=== PATIENT | female | born 1945 | race Hispanic/Latino ===

== ENCOUNTER 2017-01-15 10:44 | Emergency (ER) | payer MEDICARE ==
[2017-01-15 10:44] VITALS: BMI 16.5
[2017-01-15 10:53] VITALS: RESP 18; O2SAT 99
[2017-01-15 12:11] LABS: BASO # 0.1 K/uL (0.0-0.2); BASO % 1.3 % (0.0-2.0); EOS # 0.3 K/uL (0.0-0.7); EOS % 2.9 % (0.0-4.0); HEMATOCRIT 38.9 % (34.0-47.0); LYMPH # 1.2 K/uL (1.0-4.3); LYMPH % 12.5 % (20.0-40.0); MEAN CELL VOLUME 82.4 fL (81.0-99.0); MEAN CORPUSCULAR HEMOGLOBIN 26.8 pg (27.0-31.0); MEAN CORPUSCULAR HGB CONC 32.6 g/dL (33.0-37.0); MEAN PLATELET VOLUME 9.4 fL (7.2-11.7); MONO # 0.5 K/uL (0.0-0.8); MONO % 4.9 % (0.0-10.0); NRBC % 0.1 % (0.0-2.0); RED CELL DISTRIBUTION WIDTH 15.1 % (11.5-14.5); WHITE BLOOD COUNT 9.5 K/uL (4.8-10.8)
--- NOTE | 2017-01-15 12:22 | C.PDOC ---
History Of Present Illness 71 y/o female brought to the ED by ambulance for evaluation of epigastric abdominal pain, nausea and vomiting which began yesterday. Patient states she was residing in a care home for approx 1 week, but at the beginning of this week, patient signed herself out of the care home, stating they were " placing sleeping pills in her food." Patient also states that she overheard the nursing staff saying that she has a UTI. She states she has noticed "green urine", but denies dysuria/hematuria, chest pain, SOB, fever/chills, flank pain. Time Seen by Provider: 01/15/17 11:03 Chief Complaint (Nursing): Female Genitourinary History Per: Patient, EMS History/Exam Limitations: other Onset/Duration Of Symptoms: Hrs Current Symptoms Are (Timing): Still Present Location Of Pain/Discomfort: Epigastric Radiation Of Pain To:: None Quality Of Discomfort: "Pain" Associated Symptoms: Nausea, Vomiting. denies: Fever, Chills, Urinary Symptoms (dysuria/hematuria ) Exacerbating Factors: None Alleviating Factors: None Additional History Per: Patient, EMS Past Medical History Reviewed: Historical Data, Nursing Documentation, Vital Signs Vital Signs: Last Vital Signs Temp 98.1 F 01/15/17 13:10 Pulse 60 01/15/17 13:10 Resp 18 01/15/17 13:10 BP 199/68 H 01/15/17 13:10 Pulse Ox 99 01/15/17 13:42 - Medical History PMH: Anxiety, Arthritis, Back Problems, Bronchitis, CAD, CHF, COPD, CVA, Dementia, Deep Vein Thrombosis, Emphysema, Fractures (Right Hip), HTN, Hypercholesterolemia, Hyperlipidemia, Malignancy (Breast CA left 4 yrs ago, patient in remission, last chemo was 3 years ago), Osteoporosis, Peripheral Edema, TIA Surgical History: Coronary Stent - [facility] Procedures ANGIOPLASTY OF OTHER NON-CORONARY VESSEL(S) (07/26/12) CONTR CEREBR ARTERIOGRAM (06/25/15) CONTRAST AORTOGRAM (07/26/12) DILATION OF 2 COR ART WITH DRUG-ELUT INTRALUM, PERC APPROACH (10/27/15) DX ULTRASOUND-HEART (04/04/15) EXCISION OF TOE NAIL, EXTERNAL APPROACH (09/17/16) EXERCISE TREATMENT OF MUSCULOSK WHOLE USING ASSIST EQUIPMENT (09/17/16) FLUOROSCOPY OF LEFT HEART USING LOW OSMOLAR CONTRAST (07/06/16) FLUOROSCOPY OF MULT COR ART USING L OSM CONTRAST (07/06/16) GAIT TRAINING/AMBULAT TREATMENT USING ASSIST EQUIPMENT (09/17/16) GROOMING/PERSONAL HYGIENE TREATMENT USING ASSIST EQUIPMENT (09/17/16) INSEJ OF DRUG-ELUTING STENT(S) OF OTH PERIPHERAL VESSEL(S) (07/26/12) INSERTION OF TWO VASCULAR STENTS (07/26/12) INSPECTION OF UPPER INTESTINAL TRACT, ENDO (10/31/16) MEASURE OF CARDIAC SAMPL & PRESSURE, L HEART, PERC APPROACH (07/06/16) PACKED CELL TRANSFUSION (11/06/13) PARTIAL HIP REPLACEMENT (11/06/13) PLAIN RADIOGRAPHY OF LEFT HEART USING LOW OSMOLAR CONTRAST (10/27/15) PLAIN RADIOGRAPHY OF MULT COR ART USING L OSM CONTRAST (10/27/15) PROCEDURE ON FOUR OR MORE VESSELS (07/26/12) REMOVAL OF VAD FROM UP EXTREM SUBCU/FASCIA, PHOTOVOLTAIC PANEL INSTALLER APPROACH (07/06/15) Family History: States: No Known Family Hx - Social History Hx Tobacco Use: Yes (quit 1 wk ago) Hx Alcohol Use: No Hx Substance Use: No - Immunization History Hx Tetanus Toxoid Vaccination: No Hx Influenza Vaccination: No Hx Pneumococcal Vaccination: No Review Of Systems Except As Marked, All Systems Reviewed And Found Negative. Constitutional: Negative for: Fever, Chills Cardiovascular: Negative for: Chest Pain, Palpitations Respiratory: Negative for: Cough, Shortness of Breath Gastrointestinal: Positive for: Nausea, Vomiting, Abdominal Pain (epigastric). Negative for: Diarrhea Genitourinary: Positive for: Other (+green-colored urine). Negative for: Dysuria, Hematuria, Vaginal Discharge, Vaginal Bleeding Skin: Negative for: Rash Physical Exam - Physical Exam Appears: Well, Non-toxic, No Acute Distress Skin: Normal Color, Warm, Dry Head: Normacephalic Eye(s): bilateral: Normal Inspection Oral Mucosa: Moist Neck: Normal, Normal ROM, Supple Cardiovascular: Rhythm Regular Respiratory: Normal Breath Sounds, No Rales, No Rhonchi, No Wheezing Gastrointestinal/Abdominal: Normal Exam, Bowel Sounds, Soft, No Tenderness, No Guarding, No Rebound Back: Normal Inspection, No CVA Tenderness, No Vertebral Tenderness, No Paraspinal Tenderness Extremity: Normal ROM, No Pedal Edema, No Calf Tenderness Neurological/Psych: Oriented x3, Other (+bizarre affect ) Gait: Steady ED Course And Treatment - Laboratory Results Result Diagrams: 01/15/17 12:08 01/15/17 12:08 O2 Sat by Pulse Oximetry: 99 (on RA) Pulse Ox Interpretation: Normal Progress Note: Blood work, UA ordered and reviewed. Patient given IV zofran and PO Clonidine. 13:25- Patient reassessed, is resting comfortably and states she feels better. Blood work and UA unremarkable. On exam, abdomen is soft and nontender. Patient is comfortable being discharged home. She was given Rxs for zofran ODT and Tramadol (at her request), and was instructed to follow up with PMD in 1-2 days. She understands she should return to ED if symptroms worsen. Reevaluation Time: 13:10 Reassessment Condition: Improved (On reassessment, patient states her pain has resolved but she is still having some nausea. IV reglan ordered.) Disposition Counseled Patient/Family Regarding: Studies Performed, Diagnosis, Need For Followup, Rx Given - Disposition Referrals: John Brown DO [Staff Provider] - Disposition: HOME/ ROUTINE Disposition Time: 13:20 Condition: STABLE Additional Instructions: FOLLOW UP WITH DR BROWN IN 1-2 DAYS USE NAUSEA MEDICATION NEEDED RETURN TO ER IF SYMPTOMS WORSEN Prescriptions: traMADol [Ultram] 50 mg PO BID PRN #12 tab PRN Reason: pain Ondansetron [Zofran Odt] 4 mg PO Q8 PRN #10 odt PRN Reason: Nausea/Vomiting Instructions: Acute Nausea and Vomiting (ED) Print Language: GUAMANIAN - POA Present On Arrival: None - Clinical Impression Clinical Impression: Nausea, Vomiting - Scribe Statement The provider has reviewed the documentation as recorded by the Scribe (Dorene Medel) Provider Attestation: All medical record entries made by the Scribe were at my direction and personally dictated by me. I have reviewed the chart and agree that the record accurately reflects my personal performance of the history, physical exam, medical decision making, and the department course for this patient. I have also personally directed, reviewed, and agree with the discharge instructions and disposition.
[2017-01-15 12:26] LABS: POTASSIUM 4.8 mmol/L (3.6-5.2)
[2017-01-15 12:29] LABS: ALB/GLOB RATIO 1.4 (1.0-2.1); BILIRUBIN,TOTAL 0.5 mg/dL (0.2-1.3); TOTAL PROTEIN 6.3 g/dL (6.3-8.3)
[2017-01-15 12:37] LABS: RBC URINE < 1 /hpf (0-3); URINE BACTERIA RARE (<OCC); URINE BILIRUBIN NEGATIVE (NEGATIVE); URINE BLOOD NEGATIVE (NEGATIVE); URINE COLOR Yellow (YELLOW); URINE GLUCOSE (UA) NORMAL (Normal); URINE KETONE TRACE mg/dL (NEGATIVE); URINE LEUKOCYTE ESTERASE NEG Leu/uL (Negative); URINE PROTEIN 2+ mg/dL (NEGATIVE); URINE UROBILINOGEN NORMAL mg/dL (0.2-1.0); WBC URINE 1 /hpf (0-5)
[2017-01-15 13:10] VITALS: BP 199/68; PULSE 60; TEMP 98.1
== END 2017-01-15 13:45 | disposition home or self-care (01) ==
LOC: C.ER 10:44
DX: R11.2 Nausea with vomiting, unspecified (principal); I10 Essential (primary) hypertension

== ENCOUNTER 2017-01-27 19:00 | Observation (INO) | payer MEDICARE ==
[2017-01-27 19:01] VITALS: BMI 16.5
--- NOTE | 2017-01-27 19:54 | C.PDOC ---
History Of Present Illness Patient presents to the ER with a complaint of a dull, aching, pressure chest pain, shortness of breath, and high blood pressure. Patient state she ran out of HTN medications 3-4 days ago. Patient denies fever, nausea, and vomiting. Time Seen by Provider: 01/27/17 19:53 Chief Complaint (Nursing): Chest Pain History Per: Patient History/Exam Limitations: no limitations Onset/Duration Of Symptoms: Hrs Current Symptoms Are (Timing): Still Present Context: Other Severity: Moderate Pain Scale Rating Of: 4 Quality: Dull, Aching, Pressure Associated Symptoms: denies: Nausea Modifying Factors: None Exacerbating Factors: None Alleviating Factors: None Recent travel outside of the [place]: No Additional History Per: Patient Past Medical History Reviewed: Historical Data, Nursing Documentation, Vital Signs Vital Signs: Last Vital Signs Temp 98.6 F 01/27/17 19:14 Pulse 71 01/27/17 21:21 Resp 20 01/27/17 21:21 BP 244/98 H 01/27/17 21:21 Pulse Ox 100 01/27/17 21:21 - Medical History PMH: Anxiety, Arthritis, Back Problems, Bronchitis, CAD, CHF, COPD, CVA, Dementia, Deep Vein Thrombosis, Emphysema, Fractures (Right Hip), HTN, Hypercholesterolemia, Hyperlipidemia, Malignancy (Breast CA left 4 yrs ago, patient in remission, last chemo was 3 years ago), Osteoporosis, Peripheral Edema, TIA Surgical History: Coronary Stent - [facility] Procedures ANGIOPLASTY OF OTHER NON-CORONARY VESSEL(S) (07/26/12) CONTR CEREBR ARTERIOGRAM (06/25/15) CONTRAST AORTOGRAM (07/26/12) DILATION OF 2 COR ART WITH DRUG-ELUT INTRALUM, PERC APPROACH (10/27/15) DX ULTRASOUND-HEART (04/04/15) EXCISION OF TOE NAIL, EXTERNAL APPROACH (09/17/16) EXERCISE TREATMENT OF MUSCULOSK WHOLE USING ASSIST EQUIPMENT (09/17/16) FLUOROSCOPY OF LEFT HEART USING LOW OSMOLAR CONTRAST (07/06/16) FLUOROSCOPY OF MULT COR ART USING L OSM CONTRAST (07/06/16) GAIT TRAINING/AMBULAT TREATMENT USING ASSIST EQUIPMENT (09/17/16) GROOMING/PERSONAL HYGIENE TREATMENT USING ASSIST EQUIPMENT (09/17/16) INSEJ OF DRUG-ELUTING STENT(S) OF OTH PERIPHERAL VESSEL(S) (07/26/12) INSERTION OF TWO VASCULAR STENTS (07/26/12) INSPECTION OF UPPER INTESTINAL TRACT, ENDO (10/31/16) MEASURE OF CARDIAC SAMPL & PRESSURE, L HEART, PERC APPROACH (07/06/16) PACKED CELL TRANSFUSION (11/06/13) PARTIAL HIP REPLACEMENT (11/06/13) PLAIN RADIOGRAPHY OF LEFT HEART USING LOW OSMOLAR CONTRAST (10/27/15) PLAIN RADIOGRAPHY OF MULT COR ART USING L OSM CONTRAST (10/27/15) PROCEDURE ON FOUR OR MORE VESSELS (07/26/12) REMOVAL OF VAD FROM UP EXTREM SUBCU/FASCIA, ESL TUTOR APPROACH (07/06/15) Family History: States: Unknown Family Hx - Social History Hx Tobacco Use: Yes (quit 1 wk ago) Hx Alcohol Use: No Hx Substance Use: No - Immunization History Hx Tetanus Toxoid Vaccination: No Hx Influenza Vaccination: No Hx Pneumococcal Vaccination: No Review Of Systems Constitutional: Negative for: Fever, Chills ENT: Negative for: Throat Pain Cardiovascular: Positive for: Chest Pain (Dull, aching, pressure) Respiratory: Positive for: Shortness of Breath Gastrointestinal: Negative for: Nausea, Vomiting Genitourinary: Negative for: Dysuria Musculoskeletal: Negative for: Back Pain Skin: Negative for: Rash, Lesions, Jaundice Neurological: Negative for: Weakness Psych: Positive for: Anxiety Physical Exam - Physical Exam Appears: Non-toxic Skin: Warm, Dry Head: Atraumatic Eye(s): bilateral: Normal Inspection Oral Mucosa: Moist Neck: Supple Chest: Symmetrical, No Tenderness Cardiovascular: Rhythm Regular, No Murmur Respiratory: No Rales, No Rhonchi, No Wheezing Gastrointestinal/Abdominal: Soft, No Tenderness Back: Normal Inspection Extremity: Normal ROM Extremity: Bilateral: Atraumatic Neurological/Psych: Oriented x3, Normal Speech, Normal Cognition, Other (Mild right sided weakness unchanged from previous CVA. Awake, alert, and oriented.) Gait: With Assistance ED Course And Treatment - Laboratory Results Result Diagrams: 01/27/17 20:12 01/27/17 20:12 ECG: Interpreted By Me, Viewed By Me ECG Rhythm: Sinus Rhythm (73), Nonspecific Changes O2 Sat by Pulse Oximetry: 93 Pulse Ox Interpretation: Normal Progress Note: EKG, blood work and urinalysis ordered. Ecotrin PO and trandate IV administered. Disposition Discussed With Dr.: John Brown Comment: accepted the pt on his service and took over the care at 9:39PM Doctor Will See Patient In The: Hospital Counseled Patient/Family Regarding: Studies Performed, Diagnosis - Disposition Disposition: HOSPITALIZED Disposition Time: 19:53 Condition: FAIR - POA Present On Arrival: Poor Glycemic Control - Clinical Impression Clinical Impression: Hypertension, Chest pain - Scribe Statement The provider has reviewed the documentation as recorded by the Scribe Von Simms All medical record entries made by the Saraibe were at my direction and personally dictated by me. I have reviewed the chart and agree that the record accurately reflects my personal performance of the history, physical exam, medical decision making, and the department course for this patient. I have also personally directed, reviewed, and agree with the discharge instructions and disposition. Decision To Admit - Pt Status Changed To: Hospital Disposition Of: Observation - . Bed Request Type: Telemetry Admitting Physician: John Brown Patient Diagnosis: Hypertension, Chest pain
[2017-01-27] MEDS ORDERED: Labetalol 5 mg/ml Inj 20ML IV STA (20:03)
[2017-01-27] MEDS ORDERED: Aspirin 325 mg EC Tablets PO STA (20:03)
[2017-01-27 20:19] LABS: BASO # 0.1 K/uL (0.0-0.2); BASO % 0.8 % (0.0-2.0); EOS # 0.2 K/uL (0.0-0.7); EOS % 1.9 % (0.0-4.0); HEMATOCRIT 40.8 % (34.0-47.0); LYMPH # 1.6 K/uL (1.0-4.3); LYMPH % 14.3 % (20.0-40.0); MEAN CELL VOLUME 80.7 fL (81.0-99.0); MEAN CORPUSCULAR HEMOGLOBIN 25.8 pg (27.0-31.0); MEAN CORPUSCULAR HGB CONC 31.9 g/dL (33.0-37.0); MEAN PLATELET VOLUME 9.6 fL (7.2-11.7); MONO # 0.7 K/uL (0.0-0.8); RED CELL DISTRIBUTION WIDTH 15.1 % (11.5-14.5); WHITE BLOOD COUNT 11.5 K/uL (4.8-10.8)
[2017-01-27 20:49] LABS: RBC URINE < 1 /hpf (0-3); URINE BACTERIA RARE (<OCC); URINE BILIRUBIN NEGATIVE (NEGATIVE); URINE BLOOD NEGATIVE (NEGATIVE); URINE COLOR Yellow (YELLOW); URINE GLUCOSE (UA) NORMAL (Normal); URINE KETONE NEGATIVE (NEGATIVE); URINE LEUKOCYTE ESTERASE NEG Leu/uL (Negative); URINE PROTEIN 2+ mg/dL (NEGATIVE); URINE UROBILINOGEN NORMAL mg/dL (0.2-1.0); WBC URINE 3 /hpf (0-5)
[2017-01-27 21:07] LABS: CHLORIDE 104 mmol/L (98-107); SODIUM 143 mmol/L (132-148)
[2017-01-27 21:08] LABS: POTASSIUM 4.4 mmol/L (3.6-5.2)
[2017-01-27 21:10] LABS: ALB/GLOB RATIO 1.4 (1.0-2.1); ALKALINE PHOSPHATASE 73 U/L (38-126); AST/SGOT 14 U/L (14-36); BILIRUBIN,TOTAL 0.8 mg/dL (0.2-1.3); BLOOD UREA NITROGEN 20 mg/dL (7-17); CARBON DIOXIDE 21 mmol/L (22-30); GFR AFRICAN-AMERICAN 53; GLUCOSE,RANDOM 125 mg/dL (65-105); TOTAL PROTEIN 6.8 g/dL (6.3-8.3)
[2017-01-27 21:11] LABS: CALCIUM 9.4 mg/dl (8.6-10.4)
[2017-01-27 21:12] LABS: ALT/SGPT < 6 U/L (9-52)
[2017-01-27] MEDS ORDERED: Sodium Chloride 0.45% 1,000 ML IV SCH (21:45)
--- NOTE | 2017-01-27 23:17 | RAD ---
HISTORY: chest pain COMPARISON: Chest x-ray performed 09/14/16 TECHNIQUE: Chest, one view. FINDINGS: The image was obtained with the patient in oblique position. LUNGS: Left lower lobe consolidation and small pleural effusion. No definite pneumothorax. Please note that chest x-ray has limited sensitivity for the detection of pulmonary masses. CARDIOVASCULAR: Cardiomegaly. Atherosclerotic calcifications of an ectatic aorta. OSSEOUS STRUCTURES: Degenerative changes. VISUALIZED UPPER ABDOMEN: Unremarkable. OTHER FINDINGS: None. IMPRESSION: Left lower lobe consolidation and small pleural effusion. Cardiomegaly. Study has been marked for PA review.
[2017-01-28 03:17] VITALS: TEMP 98.2
[2017-01-28 04:03] VITALS: O2SAT 98
[2017-01-28] MEDS ORDERED: Amoxicillin-Clav 500-125 mg Tab PO SCH (07:45)
[2017-01-28 08:11] VITALS: BP 114/41; RESP 19
[2017-01-28 08:14] VITALS: PULSE 65
--- NOTE | 2017-01-28 12:11 | DS ---
She came in last night with chest pain which is now relieved. She is back on her medications. I alfredo l write prescriptions for her. Her EKG and her troponins were normal. She is going to go home today . I will follow up on a house call next week. I will put her on some Augmentin. She is breathing w ell. I asked her to quit smoking. Doing much better. Was here for chest pain and observation. She will be discharged. John Brown DO cc: [id number] TT: 01/28/2017 12:10:29 sn
[2017-01-28] MEDS ORDERED: Rosuvastatin Calcium 2.5 mg Tab PO SCH (22:00)
--- NOTE | 2017-01-30 07:25 | HP ---
SUBJECTIVE: I know the patient very well for multiple hospital visits and house calls. She came in yesterday being a 71-year-old female with shortness of breath and chest pain. She ran out of her blood pressure medication. She does this all the time, I give her refills, she does not get them filled and she comes in to the Emergency Room. So far the troponins have been negative. EKG is fine. She has no chest pain at this time. PAST MEDICAL HISTORY: Multiple episodes of chest pain, anxiety, arthritis, back pain, bronchitis, coronary artery disease, CHF, COPD, CVA, dementia, deep vein thrombosis, emphysema, fractured right hip, hypertension, high cholesterol , hyperlipidemia, malignancy of the breast, left side 4 years ago, she is in remission. Last chemo was 3 years ago. She has osteoporosis, peripheral edema , TIA. PAST SURGICAL HISTORY: She has had numerous procedures: Angioplasty, arteriograms, aortogram, dilatation of coronary artery, excision of a toenail, fluoroscopies, drug-eluting stents were placed, vascular stents. She had endoscopies, transfused in the past, partial hip replacement, left heart radiography 4 or more vessels, removal of a VAD. SOCIAL HISTORY: She still smokes. She is down to 3-4 cigarettes a day. No alcohol, no drugs. FAMILY HISTORY: There is hypertension in the family. MEDICATIONS: She is noncompliant with her medications. REVIEW OF SYSTEMS: No acute vision changes or hearing changes, no sore throat, no neck pain. There is chest pain and pressure, but none now. There is shortness of breath and cough, but none now. No abdominal pain, no constipation or diarrhea. No extremity issues. She is comfortable. She is feeling much better after the night. Skin is okay. Not weak. Not anxious at this time, either. PHYSICAL EXAMINATION: VITAL SIGNS: She has 98.2 temp, 58 pulse, blood pressure, 98% O2 sat on 2 liters. HEENT: Head is atraumatic, normocephalic. Looks much better since she cut down on the cigarettes. She does not smoke 2 packs a day. Extraocular muscles are intact. Throat is moist, no erythema. NECK: Supple, no JVD. HEART: Regular rate. LUNGS: Decreased breath sounds bilaterally. No rales, rhonchi or wheezing, and that is her baseline. ABDOMEN: Soft, nontender, positive bowel sounds. No guarding, no rebound, no CVA tenderness. EXTREMITIES: Have no edema. NEUROLOGIC: Alert and oriented x 3, calm, comfortable, no complaints at this time, alert and aware, and wants to go home. LABORATORY DATA: She had blood tests. She has a urine that is clear. White count 11.5, hemoglobin 13, hematocrit 40.8, platelets are 317, with 143 sodium, potassium 4.4, BUN 20, creatinine 1.2, GFR is 44. Sugar is 125, calcium 9.4, total bili is 0.8, AST is 14, alkaline phosphatase 73, troponin 0.01, 0.02. Total protein 6.8, albumin is 4. She had a chest x-ray that shows something, it always shows something due to her smoking history. This shows left lower lobe consolidation with cardiomegaly. ASSESSMENT AND PLAN: Presently she is much improved than when she came in. She feels like she wants to go home. I will place her on her medications which she ran out of. She will be on Catapres 0.2 three times a day, Plavix 75 daily , Ultram 50 t.i.d., aspirin, simvastatin, hydrochlorothiazide, and I am going to add Augmentin for 7 days. I will see her on a house call this week. To be discharged today. I called in cardiology last night, they did not show up yet. Maybe they will see her this morning, before she goes. She is here for chest pain, atypical, relieved with rest and blood pressure medication, consolidation in the lung, which she always has something. I will put her on Augmentin, recheck her labs this week. She is here for chest pain, rule out myocardial infarction, which we did. John Brown DO cc: [id number] TT: 01/28/2017 11:44:38 jn MTDD
--- NOTE | 2017-02-01 08:58 | CARD ---
APPROVED REPORT EKG Measurement Heart [id number] <Conclusion> Normal sinus rhythm Left ventricular hypertrophy with repolarization abnormality Abnormal ECG
== END 2017-01-28 11:45 | disposition home or self-care (01) ==
LOC: C.ER 19:00 → C.9E 21:41 → C.9I 01-28 01:03
PROVIDERS: ADMIT Family Medicine; ATTEND Family Medicine
DX: R07.89 Other chest pain (principal); E78.00 Pure hypercholesterolemia, unspecified; F17.200 Nicotine dependence, unspecified, uncomplicated; I11.0 Hypertensive heart disease with heart failure; I50.9 Heart failure, unspecified; I25.10 Atherosclerotic heart disease of native coronary artery without angina pectoris; J44.9 Chronic obstructive pulmonary disease, unspecified
CPT/HCPCS: 71010; 80053; 81001; 84484; 85025; 87081; 96374; 99285; G0378; J0360; J1885; J7030

== ENCOUNTER 2017-02-06 15:32 | Emergency (ER) | payer MEDICARE ==
[2017-02-06 15:32] VITALS: BMI 16.5
[2017-02-06 16:38] LABS: BASO # 0.1 K/uL (0.0-0.2); EOS # 0.2 K/uL (0.0-0.7); EOS % 1.9 % (0.0-4.0); HEMATOCRIT 41.1 % (34.0-47.0); LYMPH # 1.9 K/uL (1.0-4.3); LYMPH % 17.1 % (20.0-40.0); MEAN CELL VOLUME 78.9 fL (81.0-99.0); MEAN CORPUSCULAR HEMOGLOBIN 24.7 pg (27.0-31.0); MEAN CORPUSCULAR HGB CONC 31.4 g/dL (33.0-37.0); MONO # 0.7 K/uL (0.0-0.8); MONO % 5.7 % (0.0-10.0); RED CELL DISTRIBUTION WIDTH 15.3 % (11.5-14.5); WHITE BLOOD COUNT 11.4 K/uL (4.8-10.8)
[2017-02-06 16:41] LABS: CHLORIDE 102 mmol/L (98-107); SODIUM 139 mmol/L (132-148)
[2017-02-06 16:42] LABS: POTASSIUM 4.2 mmol/L (3.6-5.2)
[2017-02-06 16:43] LABS: BILIRUBIN,TOTAL 0.9 mg/dL (0.2-1.3); CARBON DIOXIDE 26 mmol/L (22-30); GFR AFRICAN-AMERICAN 53
[2017-02-06 16:44] LABS: ALB/GLOB RATIO 1.3 (1.0-2.1); ALKALINE PHOSPHATASE 68 U/L (38-126); ALT/SGPT 14 U/L (9-52); AST/SGOT 14 U/L (14-36); BLOOD UREA NITROGEN 26 mg/dL (7-17); CALCIUM 9.5 mg/dl (8.6-10.4); GLUCOSE,RANDOM 129 mg/dL (65-105)
[2017-02-06 16:57] VITALS: O2SAT 100
--- NOTE | 2017-02-06 17:09 | C.PDOC ---
History Of Present Illness Patient is a 71 year old female who presents to the ER with a complaint of chest discomfort. Patient has been seen multiple times prior for the same complaint. Patient is questionably compliant with blood pressure medication. Patient had a scheduled house visit with Dr. John Brown. Denies fever, nausea , or vomiting. Time Seen by Provider: 02/06/17 16:02 Chief Complaint (Nursing): Chest Pain History Per: Patient History/Exam Limitations: no limitations Onset/Duration Of Symptoms: Hrs Current Symptoms Are (Timing): Still Present Context: Other (Unknown) Quality: Other (Discomfort) Associated Symptoms: denies: Nausea, Other (Fever, vomiting) Modifying Factors: None Exacerbating Factors: None Past Medical History Reviewed: Historical Data, Nursing Documentation, Vital Signs Vital Signs: Last Vital Signs Temp 98.2 F 02/06/17 15:43 Pulse 69 02/06/17 17:39 Resp 20 02/06/17 17:39 BP 174/96 H 02/06/17 17:39 Pulse Ox 100 02/06/17 17:39 - Medical History PMH: Anxiety, Arthritis, Back Problems, Bronchitis, CAD, CHF, COPD, CVA, Dementia, Deep Vein Thrombosis, Emphysema, Fractures (Right Hip), HTN, Hypercholesterolemia, Hyperlipidemia, Malignancy (Breast CA left 4 yrs ago, patient in remission, last chemo was 3 years ago), Osteoporosis, Peripheral Edema, Schizophrenia, TIA Surgical History: Coronary Stent - [facility] Procedures ANGIOPLASTY OF OTHER NON-CORONARY VESSEL(S) (07/26/12) CONTR CEREBR ARTERIOGRAM (06/25/15) CONTRAST AORTOGRAM (07/26/12) DILATION OF 2 COR ART WITH DRUG-ELUT INTRALUM, PERC APPROACH (10/27/15) DX ULTRASOUND-HEART (04/04/15) EXCISION OF TOE NAIL, EXTERNAL APPROACH (09/17/16) EXERCISE TREATMENT OF MUSCULOSK WHOLE USING ASSIST EQUIPMENT (09/17/16) FLUOROSCOPY OF LEFT HEART USING LOW OSMOLAR CONTRAST (07/06/16) FLUOROSCOPY OF MULT COR ART USING L OSM CONTRAST (07/06/16) GAIT TRAINING/AMBULAT TREATMENT USING ASSIST EQUIPMENT (09/17/16) GROOMING/PERSONAL HYGIENE TREATMENT USING ASSIST EQUIPMENT (09/17/16) INSEJ OF DRUG-ELUTING STENT(S) OF OTH PERIPHERAL VESSEL(S) (07/26/12) INSERTION OF TWO VASCULAR STENTS (07/26/12) INSPECTION OF UPPER INTESTINAL TRACT, ENDO (10/31/16) MEASURE OF CARDIAC SAMPL & PRESSURE, L HEART, PERC APPROACH (07/06/16) PACKED CELL TRANSFUSION (11/06/13) PARTIAL HIP REPLACEMENT (11/06/13) PLAIN RADIOGRAPHY OF LEFT HEART USING LOW OSMOLAR CONTRAST (10/27/15) PLAIN RADIOGRAPHY OF MULT COR ART USING L OSM CONTRAST (10/27/15) PROCEDURE ON FOUR OR MORE VESSELS (07/26/12) REMOVAL OF VAD FROM UP EXTREM SUBCU/FASCIA, TOBACCO CUTTER APPROACH (07/06/15) Family History: States: Unknown Family Hx - Social History Hx Tobacco Use: Yes (quit 1 wk ago) Hx Alcohol Use: No Hx Substance Use: No - Immunization History Hx Tetanus Toxoid Vaccination: No Hx Influenza Vaccination: No Hx Pneumococcal Vaccination: No Review Of Systems Constitutional: Negative for: Fever Cardiovascular: Positive for: Chest Pain (Discomfort) Gastrointestinal: Negative for: Vomiting, Diarrhea Physical Exam - Physical Exam Appears: Non-toxic, Other (Irritable and accusatory) Skin: Normal Color, Warm, Dry Head: Atraumatic, Normacephalic Oral Mucosa: Moist Chest: Symmetrical, No Tenderness Cardiovascular: Rhythm Regular, No Murmur Respiratory: Normal Breath Sounds, No Rales, No Rhonchi, No Wheezing Gastrointestinal/Abdominal: Soft, No Tenderness Neurological/Psych: Oriented x3, Normal Speech, Normal Cognition ED Course And Treatment - Laboratory Results Result Diagrams: 02/06/17 16:22 02/06/17 16:22 Lab Interpretation: Normal (trop neg.) ECG: Interpreted By In ECG Rhythm: Sinus Rhythm ECG Interpretation: Normal Rate From EC O2 Sat by Pulse Oximetry: 100 (Room air) Pulse Ox Interpretation: Normal - Radiology CXR: Interpreted by In CXR Interpretation: Yes: No Acute Disease, Other (small ? L effusion, unchanged from prior.) Progress Note: EKG, CXR, and urinalysis ordered. Xanax PO, norvasc PO, and catapres PO administered. Reevaluation Time: 17:42 Reassessment Condition: Improved - Physician Consult Information Outcome Of Conversation: 1600 d/w Dr. John Brown- PMD- recommends check cardiac labs and d/c home for home visit f/u in 2 days. Medical Decision Making Medical Decision Making: atypical CP poorly controlled BP ? med compliance. many prior evals for same. Disposition Doctor Will See Patient In The: Office Counseled Patient/Family Regarding: Studies Performed, Diagnosis - Disposition Disposition: HOME/ ROUTINE Disposition Time: 17:43 Condition: GOOD - Clinical Impression Clinical Impression: Chest discomfort, Uncontrolled hypertension - Scribe Statement The provider has reviewed the documentation as recorded by the Scribleti Simms All medical record entries made by the Saraibleti were at my direction and personally dictated by me. I have reviewed the chart and agree that the record accurately reflects my personal performance of the history, physical exam, medical decision making, and the department course for this patient. I have also personally directed, reviewed, and agree with the discharge instructions and disposition.
--- NOTE | 2017-02-06 17:53 | RAD ---
HISTORY: SOB COMPARISON: Chest x-ray performed 01/27/17 TECHNIQUE: Chest, one view. FINDINGS: Examination limited by patient obliquity. LUNGS: Patchy left lower lobe atelectasis/ pneumonia and small pleural effusion. Small patchy right lower lobe atelectasis/ pneumonia.Interstitial prominence may reflect infection or edema. No definite pneumothorax. Please note that chest x-ray has limited sensitivity for the detection of pulmonary masses. CARDIOVASCULAR: Borderline cardiomegaly. Atherosclerotic calcifications of an ectatic aorta. OSSEOUS STRUCTURES: Degenerative changes of the spine and shoulders. Osseous demineralization. VISUALIZED UPPER ABDOMEN: Unremarkable. OTHER FINDINGS: None. IMPRESSION: Patchy left lower lobe atelectasis/ pneumonia and small pleural effusion. Small patchy right lower lobe atelectasis/ pneumonia.Interstitial prominence may reflect infection or edema.
[2017-02-06 18:06] VITALS: BP 160/70; PULSE 61; RESP 18; TEMP 98.1
--- NOTE | 2017-02-07 10:24 | CARD ---
APPROVED REPORT EKG Measurement Heart [id number] <Conclusion> Normal sinus rhythm Nonspecific ST and T wave abnormality Abnormal ECG
== END 2017-02-06 18:06 | disposition home or self-care (01) ==
LOC: C.ER 15:32
DX: R07.89 Other chest pain (principal); I10 Essential (primary) hypertension; Z87.891 Personal history of nicotine dependence

== ENCOUNTER 2017-03-27 20:14 | Observation (INO) | payer MEDICARE ==
[2017-03-27 20:14] VITALS: BMI 16.5
[2017-03-27 22:06] LABS: BASO # 0.1 K/uL (0.0-0.2); BASO % 0.5 % (0.0-2.0); EOS # 0.2 K/uL (0.0-0.7); EOS % 2.2 % (0.0-4.0); HEMATOCRIT 31.4 % (34.0-47.0); LYMPH # 0.9 K/uL (1.0-4.3); LYMPH % 8.7 % (20.0-40.0); MEAN CELL VOLUME 75.6 fL (81.0-99.0); MEAN CORPUSCULAR HEMOGLOBIN 23.4 pg (27.0-31.0); MEAN CORPUSCULAR HGB CONC 30.9 g/dL (33.0-37.0); MONO # 0.7 K/uL (0.0-0.8); MONO % 6.7 % (0.0-10.0); PLATELET COUNT 246 K/uL (130-400); RED CELL DISTRIBUTION WIDTH 17.5 % (11.5-14.5); WHITE BLOOD COUNT 10.8 K/uL (4.8-10.8)
[2017-03-27 22:15] LABS: CHLORIDE 105 mmol/L (98-107); POTASSIUM 4.9 mmol/L (3.6-5.2); SODIUM 137 mmol/L (132-148)
[2017-03-27 22:17] LABS: GFR AFRICAN-AMERICAN 33
[2017-03-27 22:18] LABS: ALB/GLOB RATIO 1.2 (1.0-2.1); ALKALINE PHOSPHATASE 65 U/L (38-126); ALT/SGPT 11 U/L (9-52); AST/SGOT 11 U/L (14-36); BILIRUBIN,TOTAL 0.6 mg/dL (0.2-1.3); BLOOD UREA NITROGEN 56 mg/dL (7-17); CALCIUM 9.2 mg/dl (8.6-10.4); CARBON DIOXIDE 19 mmol/L (22-30); GLUCOSE,RANDOM 132 mg/dL (65-105); TOTAL PROTEIN 6.4 g/dL (6.3-8.3)
[2017-03-27 22:19] LABS: MAGNESIUM 2.1 mg/dL (1.6-2.3)
[2017-03-27 23:29] LABS: EOSINOPHIL 2 % (0-4); LARGE PLATELETS PRESENT; NEUTROPHIL 77 % (50-75); SMUDGE CELLS PRESENT; TOTAL CELLS COUNTED 100
[2017-03-27] MEDS ORDERED: Sodium Chloride 0.45% 1,000 ML IV SCH (23:45)
--- NOTE | 2017-03-27 23:58 | C.PDOC ---
History Of Present Illness Pt has multiple complaints, including generalized weakness and pain. Time Seen by Provider: 03/27/17 21:30 Chief Complaint (Nursing): Medical Clearance History Per: Patient Onset/Duration Of Symptoms: Days Current Symptoms Are (Timing): Worse Severity: Moderate Additional History Per: Prior Records Past Medical History Reviewed: Historical Data, Nursing Documentation, Vital Signs Vital Signs: Last Vital Signs Temp 97.6 F 03/27/17 20:19 Pulse 57 L 03/27/17 22:45 Resp 17 03/27/17 22:45 BP 189/67 H 03/27/17 22:45 Pulse Ox 100 03/27/17 22:45 - Medical History PMH: Anxiety, Arthritis, Back Problems, Bronchitis, CAD, CHF, COPD, CVA, Dementia, Deep Vein Thrombosis, Emphysema, Fractures (Right Hip), HTN, Hypercholesterolemia, Hyperlipidemia, Malignancy (Breast CA left 4 yrs ago, patient in remission, last chemo was 3 years ago), Osteoporosis, Peripheral Edema, Schizophrenia, TIA Surgical History: Coronary Stent - [facility] Procedures ANGIOPLASTY OF OTHER NON-CORONARY VESSEL(S) (07/26/12) CONTR CEREBR ARTERIOGRAM (06/25/15) CONTRAST AORTOGRAM (07/26/12) DILATION OF 2 COR ART WITH DRUG-ELUT INTRALUM, PERC APPROACH (10/27/15) DX ULTRASOUND-HEART (04/04/15) EXCISION OF TOE NAIL, EXTERNAL APPROACH (09/17/16) EXERCISE TREATMENT OF MUSCULOSK WHOLE USING ASSIST EQUIPMENT (09/17/16) FLUOROSCOPY OF LEFT HEART USING LOW OSMOLAR CONTRAST (07/06/16) FLUOROSCOPY OF MULT COR ART USING L OSM CONTRAST (07/06/16) GAIT TRAINING/AMBULAT TREATMENT USING ASSIST EQUIPMENT (09/17/16) GROOMING/PERSONAL HYGIENE TREATMENT USING ASSIST EQUIPMENT (09/17/16) INSEJ OF DRUG-ELUTING STENT(S) OF OTH PERIPHERAL VESSEL(S) (07/26/12) INSERTION OF TWO VASCULAR STENTS (07/26/12) INSPECTION OF UPPER INTESTINAL TRACT, ENDO (10/31/16) MEASURE OF CARDIAC SAMPL & PRESSURE, L HEART, PERC APPROACH (07/06/16) PACKED CELL TRANSFUSION (11/06/13) PARTIAL HIP REPLACEMENT (11/06/13) PLAIN RADIOGRAPHY OF LEFT HEART USING LOW OSMOLAR CONTRAST (10/27/15) PLAIN RADIOGRAPHY OF MULT COR ART USING L OSM CONTRAST (10/27/15) PROCEDURE ON FOUR OR MORE VESSELS (07/26/12) REMOVAL OF VAD FROM UP EXTREM SUBCU/FASCIA, COMPUTER SYSTEMS INTEGRATOR APPROACH (07/06/15) Family History: States: Unknown Family Hx - Social History Hx Tobacco Use: Yes (quit 1 wk ago) Hx Alcohol Use: No Hx Substance Use: No - Immunization History Hx Tetanus Toxoid Vaccination: No Hx Influenza Vaccination: No Hx Pneumococcal Vaccination: No Review Of Systems Except As Marked, All Systems Reviewed And Found Negative. Constitutional: Negative for: Fever Cardiovascular: Negative for: Chest Pain Respiratory: Positive for: SOB with Excertion Gastrointestinal: Positive for: Diarrhea. Negative for: Vomiting, Abdominal Pain Musculoskeletal: Negative for: Neck Pain Neurological: Negative for: Weakness, Numbness, Seizures Psych: Positive for: Anxiety Physical Exam - Physical Exam Appears: No Acute Distress Skin: Normal Color, Warm, Dry Head: Atraumatic, Normacephalic Eye(s): bilateral: PERRL, EOMI Neck: Normal ROM, Supple Cardiovascular: Rhythm Regular Respiratory: Normal Breath Sounds, No Accessory Muscle Use Gastrointestinal/Abdominal: Soft, No Tenderness Extremity: Normal ROM Neurological/Psych: Oriented x3, Normal Motor, Normal Sensation ED Course And Treatment - Laboratory Results Result Diagrams: 03/27/17 22:03 03/27/17 22:03 Lab Interpretation: Abnormal Interpretation Of Abnormal: Anemia. Elevated BUN/Cr. ECG: Interpreted By Me, Viewed By Me ECG Rhythm: Sinus Bradycardia, Nonspecific Changes Rate From EC O2 Sat by Pulse Oximetry: 100 Pulse Ox Interpretation: Normal - Radiology CXR: Interpreted by Me, Viewed By Me CXR Interpretation: Yes: Other (small right pleural effusion) Progress - Interventions Interventions:: Observation - Medications Administered Oral: Antihypertensive - Data Reviewed Data Reviewed: Lab, Diagnostic imaging, EKG, Old records - Patient Status Patient status: Partially improved - Continuity of Care Discussed patient case with:: Patient, ED Nurse, PMD - Patient Plan Patient Plan: Admission Disposition Discussed With : John Brown Comment: He accepted pt on his service and gave admitting orders to the nurse. Doctor Will See Patient In The: Hospital Counseled Patient/Family Regarding: Studies Performed, Diagnosis - Disposition Disposition: HOSPITALIZED Disposition Time: 00:12 Condition: FAIR - Clinical Impression Clinical Impression: Uncontrolled hypertension, Dehydration, Failure to thrive in adult
[2017-03-28 04:00] VITALS: RESP 20
[2017-03-28] MEDS ORDERED: Sodium Chloride 0.45% 1,000 ML IV SCH (06:21)
[2017-03-28 07:35] LABS: BASO # 0.1 K/uL (0.0-0.2); BASO % 0.7 % (0.0-2.0); EOS # 0.3 K/uL (0.0-0.7); EOS % 3.9 % (0.0-4.0); LYMPH % 13.4 % (20.0-40.0); MEAN CELL VOLUME 75.5 fL (81.0-99.0); MEAN CORPUSCULAR HEMOGLOBIN 23.8 pg (27.0-31.0); MEAN CORPUSCULAR HGB CONC 31.5 g/dL (33.0-37.0); MEAN PLATELET VOLUME 9.1 fL (7.2-11.7); MONO # 0.6 K/uL (0.0-0.8); MONO % 7.9 % (0.0-10.0); RED CELL DISTRIBUTION WIDTH 16.9 % (11.5-14.5); WHITE BLOOD COUNT 7.6 K/uL (4.8-10.8)
[2017-03-28 07:44] LABS: POTASSIUM 4.4 mmol/L (3.6-5.2)
[2017-03-28 07:46] LABS: BILIRUBIN,TOTAL 0.5 mg/dL (0.2-1.3)
[2017-03-28 07:47] LABS: ALB/GLOB RATIO 1.1 (1.0-2.1); CALCIUM 8.7 mg/dl (8.6-10.4); TOTAL PROTEIN 5.3 g/dL (6.3-8.3)
[2017-03-28 08:45] VITALS: PULSE 56; TEMP 97.5; O2SAT 93
[2017-03-28 08:46] VITALS: BP 183/67
--- NOTE | 2017-03-28 11:04 | RAD ---
PROCEDURE: CHEST RADIOGRAPH, 1 VIEW HISTORY: Hypertension COMPARISON: 02/06/2017 FINDINGS: LUNGS: Biapical pleural thickening with upper lobe granulomatous changes. Chronic interstitial lung markings. Small bilateral pleural effusions. Patchy left basilar airspace opacity. PLEURA: As above. CARDIOVASCULAR: Calcification at the aortic knob. Tortuous aorta. OSSEOUS STRUCTURES: Degenerative changes in the spine and shoulders. VISUALIZED UPPER ABDOMEN: Normal. OTHER FINDINGS: None. IMPRESSION: Biapical pleural thickening with upper lobe granulomatous changes. Chronic interstitial lung markings. Small bilateral pleural effusions. Patchy left basilar airspace opacity.
--- NOTE | 2017-03-28 12:39 | CARD ---
APPROVED REPORT EKG Measurement Heart [id number] 132P [id number] <Conclusion> Sinus bradycardia Right superior axis deviation Septal infarct, age undetermined Abnormal ECG
--- NOTE | 2017-03-28 13:42 | CP.PCM.PN ---
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 Brown , cleared for discharge to [facility] and Dr. monroe will follow the patient at [facility] discharge instructions discussed with patient who understands and agrees with plan Objective - Vital Signs/Intake and Output Vital Signs (last 24 hours): Temp Pulse Resp BP Pulse Ox 97.5 F L 56 L 20 183/67 H 93 L 03/28/17 08:00 03/28/17 08:00 03/28/17 08:00 03/28/17 08:00 03/28/17 08:00 Intake and Output: 03/28/17 03/28/17 06:59 18:59 Intake Total 320 Balance 320 - Medications Medications: Current Medications Amlodipine Besylate (Norvasc) 5 mg PO DAILY [facility] Last Admin: 03/28/17 09:28 Dose: 5 mg Clonidine HCl (Catapres) 0.1 mg PO TID [facility] Last Admin: 03/28/17 09:28 Dose: 0.1 mg Heparin Sodium (Porcine) (Heparin) 5,000 units SC Q12 FELIPE Last Admin: 03/28/17 11:34 Dose: 5,000 units Sodium Chloride (Sodium Chloride 0.45%) 1,000 mls @ 30 mls/hr IV .Q24H [facility] Last Admin: 03/28/17 06:30 Dose: Not Given Tramadol HCl (Ultram) 50 mg PO TID PRN PRN Reason: pain Last Admin: 03/28/17 09:28 Dose: 50 mg - Labs Labs: 03/28/17 07:25 03/28/17 07:25
== END 2017-03-28 15:30 ==
LOC: C.ER 20:14 → C.3T 03-28 00:14 → INTOOBSV 03-28 00:14
PROVIDERS: ADMIT Family Medicine; ATTEND Family Medicine
DX: R62.7 Adult failure to thrive (principal); E86.0 Dehydration; I10 Essential (primary) hypertension
CPT/HCPCS: 36415; 71010; 80053; 83735; 83880; 84484; 85025; 93005; 99284; G0378; J1644; J7030

== ENCOUNTER 2017-05-08 08:15 | Inpatient (IN) | payer MEDICARE ==
[2017-05-08 08:15] VITALS: BMI 16.5
--- NOTE | 2017-05-08 08:43 | C.PDOC ---
History Of Present Illness 72 yr old female presents to the ER with complaints of total body pain and is requesting morphine for the pain. Patient states she has tramadol at home which does not help. Patient also reports of on and off chest pain and SOB, along with SERRANO. Patient reports she has COPD due to smoking. Denies fever, cough, nausea, vomiting, abdominal pain, weakness or numbness. Time Seen by Provider: 05/08/17 08:32 Chief Complaint (Nursing): Chest Pain History Per: Patient History/Exam Limitations: no limitations Onset/Duration Of Symptoms: Days Current Symptoms Are (Timing): Still Present Past Medical History Reviewed: Historical Data, Nursing Documentation, Vital Signs Vital Signs: Last Vital Signs Temp 98.5 F 05/08/17 08:24 Pulse 70 05/08/17 09:35 Resp 20 05/08/17 09:35 BP 185/72 H 05/08/17 09:35 Pulse Ox 99 05/08/17 09:35 - Medical History PMH: Anxiety, Arthritis, Back Problems, Bronchitis, CAD, CHF, COPD, CVA, Dementia, Deep Vein Thrombosis, Emphysema, Fractures (Right Hip), HTN, Hypercholesterolemia, Hyperlipidemia, Malignancy (Breast CA left 4 yrs ago, patient in remission, last chemo was 3 years ago), Osteoporosis, Peripheral Edema, Schizophrenia, TIA Surgical History: Coronary Stent - [facility] Procedures ANGIOPLASTY OF OTHER NON-CORONARY VESSEL(S) (07/26/12) CONTR CEREBR ARTERIOGRAM (06/25/15) CONTRAST AORTOGRAM (07/26/12) DILATION OF 2 COR ART WITH DRUG-ELUT INTRALUM, PERC APPROACH (10/27/15) DX ULTRASOUND-HEART (04/04/15) EXCISION OF TOE NAIL, EXTERNAL APPROACH (09/17/16) EXERCISE TREATMENT OF MUSCULOSK WHOLE USING ASSIST EQUIPMENT (09/17/16) FLUOROSCOPY OF LEFT HEART USING LOW OSMOLAR CONTRAST (07/06/16) FLUOROSCOPY OF MULT COR ART USING L OSM CONTRAST (07/06/16) GAIT TRAINING/AMBULAT TREATMENT USING ASSIST EQUIPMENT (09/17/16) GROOMING/PERSONAL HYGIENE TREATMENT USING ASSIST EQUIPMENT (09/17/16) INSEJ OF DRUG-ELUTING STENT(S) OF OTH PERIPHERAL VESSEL(S) (07/26/12) INSERTION OF TWO VASCULAR STENTS (07/26/12) INSPECTION OF UPPER INTESTINAL TRACT, ENDO (10/31/16) MEASURE OF CARDIAC SAMPL & PRESSURE, L HEART, PERC APPROACH (07/06/16) PACKED CELL TRANSFUSION (11/06/13) PARTIAL HIP REPLACEMENT (11/06/13) PLAIN RADIOGRAPHY OF LEFT HEART USING LOW OSMOLAR CONTRAST (10/27/15) PLAIN RADIOGRAPHY OF MULT COR ART USING L OSM CONTRAST (10/27/15) PROCEDURE ON FOUR OR MORE VESSELS (07/26/12) REMOVAL OF VAD FROM UP EXTREM SUBCU/FASCIA, COMMUNITY SUPPORT WORKER APPROACH (07/06/15) Family History: States: No Known Family Hx - Social History Hx Tobacco Use: Yes (quit 1 wk ago) Hx Alcohol Use: No Hx Substance Use: No - Immunization History Hx Tetanus Toxoid Vaccination: No Hx Influenza Vaccination: No Hx Pneumococcal Vaccination: No Review Of Systems Except As Marked, All Systems Reviewed And Found Negative. Constitutional: Negative for: Fever Cardiovascular: Positive for: Chest Pain (On & Off) Respiratory: Positive for: Shortness of Breath, Other ((+) SERRANO ). Negative for : Cough Gastrointestinal: Negative for: Nausea, Vomiting, Abdominal Pain Neurological: Negative for: Weakness, Numbness Physical Exam - Physical Exam Appears: Non-toxic, No Acute Distress Skin: Warm, Dry, No Rash Head: Atraumatic, Normacephalic Oral Mucosa: Moist Chest: Symmetrical, No Tenderness Cardiovascular: Rhythm Regular, No Murmur Respiratory: Normal Breath Sounds, No Rales, No Rhonchi, No Stridor, No Wheezing Extremity: Normal ROM, No Tenderness, No Swelling Neurological/Psych: Oriented x3, Normal Speech, Normal Motor ED Course And Treatment - Laboratory Results Result Diagrams: 05/08/17 08:55 05/08/17 08:55 ECG: Interpreted By Me, Viewed By Me ECG Rhythm: Sinus Rhythm ECG Interpretation: Abnormal Interpretation Of ECG: Slight ST depressions in the inferior leads. Current EKG has slightly more depressions then prior EKG from March 27. Rate From EC (BPM) O2 Sat by Pulse Oximetry: 91 (RA ) Pulse Ox Interpretation: Normal - Other Rad CXR X-Ray: Viewed By Me, Read By Radiologist Interpretation: PROCEDURE: CHEST RADIOGRAPH, 1 VIEW. HISTORY: chest pain. COMPARISON: 03/27/2017. FINDINGS: LUNGS: Diffuse increased interstitial lung markings suggestive for interstitial edema and or infiltrate. Patchy consolidative changes at the left lung base. Blunted bilateral costophrenic angles suggestive for trace bilateral pleural effusions. Biapical pleural thickening. Scattered nodularity throughout both lungs. PLEURA: As above. CARDIOVASCULAR: Normal. OSSEOUS STRUCTURES: No significant abnormalities. VISUALIZED UPPER ABDOMEN: Normal. OTHER FINDINGS: None. IMPRESSION: Diffuse increased interstitial lung markings suggestive for interstitial edema and or infiltrate. Patchy consolidative changes at the left lung base. Blunted bilateral costophrenic angles suggestive for trace bilateral pleural effusions. Biapical pleural thickening. Scattered nodularity throughout both lungs. Medical Decision Making Medical Decision Making: PLAN: * CXR * EKG * CBC * CMP * Troponin Patient with ST depressions in inferior leads, also elevated BNP. Will hospitalize for CHF, ACS. Spoke with Dr. Pompa, requests Dr. Kinney for cardiology. Disposition Discussed With Dr.: John Brown Doctor Will See Patient In The: Hospital Counseled Patient/Family Regarding: Studies Performed - Disposition Disposition: HOSPITALIZED Disposition Time: 10:23 Condition: GUARDED Forms: [employer] (Georgian) - Clinical Impression Clinical Impression: Congestive heart failure, ACS (acute coronary syndrome) - Scribe Statement The provider has reviewed the documentation as recorded by the Scribe Rossi Gordillo Provider Attestation: All medical record entries made by the Scribe were at my direction and personally dictated by me. I have reviewed the chart and agree that the record accurately reflects my personal performance of the history, physical exam, medical decision making, and the department course for this patient. I have also personally directed, reviewed, and agree with the discharge instructions and disposition. Decision To Admit - Pt Status Changed To: Hospital Disposition Of: Observation - . Bed Request Type: Telemetry Patient Diagnosis: Congestive heart failure, ACS (acute coronary syndrome)
[2017-05-08 09:06] LABS: BASO # 0.2 K/uL (0.0-0.2); BASO % 1.1 % (0.0-2.0); EOS # 0.3 K/uL (0.0-0.7); LYMPH # 1.3 K/uL (1.0-4.3); LYMPH % 9.5 % (20.0-40.0); MEAN CORPUSCULAR HEMOGLOBIN 22.3 pg (27.0-31.0); MEAN CORPUSCULAR HGB CONC 30.7 g/dL (33.0-37.0); MEAN PLATELET VOLUME 9.1 fL (7.2-11.7); MONO # 0.7 K/uL (0.0-0.8); MONO % 5.5 % (0.0-10.0); NRBC % 0.1 % (0.0-2.0); PLATELET COUNT 272 K/uL (130-400); RED CELL DISTRIBUTION WIDTH 17.2 % (11.5-14.5)
[2017-05-08 09:09] LABS: MEAN CELL VOLUME 72.9 fL (81.0-99.0); WHITE BLOOD COUNT 13.5 K/uL (4.8-10.8)
[2017-05-08 09:11] LABS: CHLORIDE 105 mmol/L (98-107); POTASSIUM 3.8 mmol/L (3.6-5.2); SODIUM 143 mmol/L (132-148)
[2017-05-08 09:13] LABS: AST/SGOT 14 U/L (14-36); BILIRUBIN,TOTAL 0.6 mg/dL (0.2-1.3); CARBON DIOXIDE 21 mmol/L (22-30); GFR AFRICAN-AMERICAN 59
[2017-05-08 09:14] LABS: ALB/GLOB RATIO 1.3 (1.0-2.1); ALKALINE PHOSPHATASE 76 U/L (38-126); ALT/SGPT 21 U/L (9-52); BLOOD UREA NITROGEN 22 mg/dL (7-17); CALCIUM 8.8 mg/dl (8.6-10.4); GLUCOSE,RANDOM 128 mg/dL (65-105)
--- NOTE | 2017-05-08 09:29 | RAD ---
PROCEDURE: CHEST RADIOGRAPH, 1 VIEW HISTORY: chest pain COMPARISON: 03/27/2017 FINDINGS: LUNGS: Diffuse increased interstitial lung markings suggestive for interstitial edema and or infiltrate. Patchy consolidative changes at the left lung base. Blunted bilateral costophrenic angles suggestive for trace bilateral pleural effusions. Biapical pleural thickening. Scattered nodularity throughout both lungs. PLEURA: As above. CARDIOVASCULAR: Normal. OSSEOUS STRUCTURES: No significant abnormalities. VISUALIZED UPPER ABDOMEN: Normal. OTHER FINDINGS: None. IMPRESSION: Diffuse increased interstitial lung markings suggestive for interstitial edema and or infiltrate. Patchy consolidative changes at the left lung base. Blunted bilateral costophrenic angles suggestive for trace bilateral pleural effusions. Biapical pleural thickening. Scattered nodularity throughout both lungs.
[2017-05-08 09:38] LABS: EOSINOPHIL 2 % (0-4); NEUTROPHIL 82 % (50-75); TOTAL CELLS COUNTED 100
[2017-05-08] MEDS ORDERED: Morphine 4 MG/ML VIAL ONE (09:39)
[2017-05-08] MEDS: cefTRIAXone IV 1 gm in Dextros 50 ML IVPB SCH (17:16)
[2017-05-08] MEDS: Azithromycin 500 MG in Sodium Chloride 0.9% 250 ML IVPB SCH (17:42)
[2017-05-08] MEDS ORDERED: Morphine 4 MG/ML VIAL IVP PRN (19:30)
--- NOTE | 2017-05-08 22:41 | HP ---
I know Kathy very well from house calls, hospital admissions, and subacute rehab. She is a 72-year-old white female who came in with shortness of breath, dyspnea on exertion, chest pain, and pain in general. She claims that she has stopped smoking and she is very weak and it is difficult to walk. PAST MEDICAL HISTORY: Anxiety, arthritis, back problems, bronchitis, CAD, CHF, COPD, CVA, dementia, deep vein thrombosis, emphysema, fractures of the right hip with surgery, hypertension, hypercholesterolemia, hyperlipidemia, malignancy of breast cancer, left, 4 years ago, recently in remission, last chemo was 2 years ago, osteoporosis, peripheral edema, schizophrenia, TIA. She also had a coronary stent placed. She had angioplasty, cerebral arteriograms, aortograms, dilatation of 2 coronary arteries with drug-eluting stents, excision of a nail, fluoroscopies, multiple gait trainings and subacute rehabs, vascular stents, she was transfused a few times, and partial hip replacement. FAMILY HISTORY: No known family history other than those with hypertension in the family. Although she tells me she quit, she did smoke about a week ago. No alcohol, no drugs. MEDICATIONS: She has multiple medications that she takes at home. She takes hydrochlorothiazide, simvastatin for high cholesterol, aspirin, clonidine, amlodipine, tramadol. ALLERGIES: SHE HAS ALLERGY TO IODINE. REVIEW OF SYSTEMS: No acute vision or hearing changes. No sore throat, no neck pain. She is having chest pain. She is having shortness of breath, especially with exertion. No abdominal pain, no constipation, diarrhea, nausea, vomiting. No problems urinating. Her legs are very week. Skin for the most part is okay. No numbness or weakness. No palpitations. PHYSICAL EXAMINATION VITAL SIGNS: There is a 97.8 temp, 64 pulse, 179/61 blood pressure, 20 respiratory rate, 99% O2 sat on room air. HEENT: Head is atraumatic and normocephalic. Extraocular muscles are intact. Pupils are equally reactive to light and accommodation. Throat is moist. NECK: Supple. Thyroid midline. No palpable appreciable lymphadenopathy. HEART: Regular rate. LUNGS: Decreased breath sounds bilaterally, but for the most part are clear, no wheezes or rhonchi at this time. ABDOMEN: Soft and nontender. Positive bowel sounds. EXTREMITIES: No edema, but she is weak in the extremities. NEUROLOGY: Cranial nerves II through XII grossly intact. She is alert and oriented x3. A little bit distressed with chronic arthritis pain. She was short of breath, doing a lot better on oxygen. LABORATORY DATA: She had multiple tests. She has a 143 sodium, potassium 3.8, BUN is 22, creatinine 1.1, GFR is 49, sugar is 128, calcium is 8.8. Total bilirubin is 0.6, AST is 14, ALT is 21, alkaline phosphatase 76. Troponin I is less than 0.012. BNP is 15,400 high number for her. Total protein is 6, albumin is 3.5. White count 13.5, which is high for her also, she is normally low; hemoglobin 10.1; hematocrit 33; platelets are 272. Chest x-ray was also done and interestingly showed diffused increased interstitial lung markings suggestive of interstitial edema or infiltrate, patchy consolidative changes in the left lung base, blunted bilateral costophrenic angles suggestive of trace bilateral pleural effusions, biapical pleural thickening, scattered nodularity of both lungs. ASSESSMENT AND PLAN: I am making her an inpatient for congestive heart failure from possible bilateral pneumonia. She will be on Rocephin, she will be on Zithromax, she will be on IV Lasix, and she will have a consult with pulmonary. She will have a consult cardiology and she will have troponin checked. She will be given IV Lasix, Rocephin, and Zithromax. We will check her labs tomorrow. We will get physical therapy involved. She might need physical therapy when she is done with the hospital, like a subacute rehab, she has done it before, or she will go home with services if it is okay with physical therapy. John Brown DO
--- NOTE | 2017-05-09 08:12 | CARD ---
APPROVED REPORT EKG Measurement Heart [id number] <Conclusion> Normal sinus rhythm with sinus arrhythmia ST & T wave abnormality, consider inferior ischemia Prolonged QT Abnormal ECG
[2017-05-09 08:56] LABS: HEMATOCRIT 33.4 % (34.0-47.0); MEAN CELL VOLUME 72.1 fL (81.0-99.0); MEAN CORPUSCULAR HEMOGLOBIN 22.2 pg (27.0-31.0); MEAN CORPUSCULAR HGB CONC 30.8 g/dL (33.0-37.0); MEAN PLATELET VOLUME 9.8 fL (7.2-11.7); RED CELL DISTRIBUTION WIDTH 17.4 % (11.5-14.5); WHITE BLOOD COUNT 11.3 K/uL (4.8-10.8)
[2017-05-09 09:02] LABS: CHLORIDE 103 mmol/L (98-107)
[2017-05-09 09:03] LABS: POTASSIUM 3.7 mmol/L (3.6-5.2); SODIUM 143 mmol/L (132-148)
[2017-05-09 09:05] LABS: GFR AFRICAN-AMERICAN 53
[2017-05-09 09:06] LABS: ALB/GLOB RATIO 1.2 (1.0-2.1); ALKALINE PHOSPHATASE 75 U/L (38-126); ALT/SGPT 19 U/L (9-52); AST/SGOT 12 U/L (14-36); BILIRUBIN,TOTAL 0.5 mg/dL (0.2-1.3); BLOOD UREA NITROGEN 25 mg/dL (7-17); CALCIUM 8.9 mg/dl (8.6-10.4); CARBON DIOXIDE 25 mmol/L (22-30); GLUCOSE,RANDOM 178 mg/dL (65-105); TOTAL PROTEIN 5.9 g/dL (6.3-8.3)
--- NOTE | 2017-05-09 09:06 | PN ---
SUBJECTIVE: She tells me she needs some morphine for her pain. She is having lots of pain all over, abdominal pain. She is eating now. She has not gotten out of bed. She is waiting for physical therapy to see her and also cardiology and pulmonary to see her. She is on aspirin, clonidine, Rocephin, Lasix IV, morphine, amlodipine, Toradol, Ultram, Zithromax, and Zofran. PHYSICAL EXAMINATION: VITAL SIGNS: 98.2 temp, 80 pulse, 120/86blood pressure, 20 respiratory rate, 90% O2 sat on 2 liters nasal cannula. HEENT: Head is atraumatic and normocephalic. Throat is moist. NECK: Supple. HEART: Regular rate. LUNGS: Decreased breath sounds, but clear. ABDOMEN: Soft. EXTREMITIES: No edema. NEUROLOGIC: She tells me she is very short of breath when she moves and she is uncomfortable. LABORATORY DATA: She had 13,000 white count yesterday. Her troponins are good less than 0.012. Last blood sugar was 104 in a row. BNP was very high when she came in, awaiting for the labs to come back from this morning. CBC estimated at 20 working on the white count. PLAN: Await until pulmonary and cardiology to evaluate, also for physical therapy direction on TCU, subacute rehab or home with services. Continue with aggressive treatment and care for her CHF, COPD, infiltrates, pain and weakness. I encouraged her to get out of bed to chair, eat food, try and avoid the morphine as there is no choice. John Brown DO MTDD
[2017-05-09 16:56] LABS: INR 1.3
[2017-05-09] MEDS: Azithromycin 500 MG in Sodium Chloride 0.9% 250 ML IVPB SCH (17:47)
[2017-05-09] MEDS: cefTRIAXone IV 1 gm in Dextros 50 ML IVPB SCH (17:47)
--- NOTE | 2017-05-09 22:36 | CP.PCM.CON ---
History of Present Illness - History of Present Illness History of Present Illness: Reason for consultation: atypical chest pain HPI 72 yr old female presents to the ER with complaints of total body pain and is requesting morphine for the pain. Patient states she has tramadol at home which does not help. Patient also reports of on and off chest pain and SOB , along with SERRANO. Patient reports she has COPD due to smoking. Denies fever, cough, nausea, vomiting, abdominal pain, weakness or numbness. Past Patient History - Infectious Disease Hx of Infectious Diseases: None - Tetanus Immunizations Tetanus Immunization: Unknown - Past Medical History & Family History Past Medical History?: Yes - Past Social History Smoking Status: Former Smoker - CARDIAC Hx Cardiac Disorders: Yes Hx Congestive Heart Failure: Yes Hx Hypercholesterolemia: Yes Hx Hypertension: Yes - PULMONARY Hx Chronic Obstructive Pulmonary Disease (COPD): Yes - NEUROLOGICAL HX Cerebrovascular Accident: Yes - HEENT Hx HEENT Problems: Yes (left eye blurry) 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) Other/Comment: [place] - RENAL Hx Chronic Kidney Disease: No - ENDOCRINE/METABOLIC Hx Diabetes Mellitus Type 2: Yes - HEMATOLOGICAL/ONCOLOGICAL Hx Blood Disorders: Yes Hx Cancer: Yes (breast 3-4 years ago) Other/Comment: Lt breast CA/lumpectomy. right leg DVT - INTEGUMENTARY Hx Dermatological Problems: No - MUSCULOSKELETAL/RHEUMATOLOGICAL Hx Arthritis: Yes - GASTROINTESTINAL Hx Gastrointestinal Disorders: Yes Hx Gastroesophageal Reflux: Yes - GENITOURINARY/GYNECOLOGICAL Hx Genitourinary Disorders: Yes Hx Bladder Cancer: Yes - PSYCHIATRIC Hx Psychophysiologic Disorder: Yes Hx Anxiety: Yes Hx Schizophrenia: Yes Hx Substance Use: No - SURGICAL HISTORY Hx Surgeries: Yes Hx Coronary Stent: Yes - ANESTHESIA Hx Anesthesia: Yes Hx Anesthesia Reactions: No Hx Malignant Hyperthermia: No Has any member of the family had a problem w/ anesthesia?: No Meds Allergies/Adverse Reactions: Allergies Allergy/AdvReac Type Severity Reaction Status Date / Time iodine Allergy Severe ANAPHYLAXIS Verified 05/08/17 08:26 iv dye Allergy Severe ANAPHYLAXIS Uncoded 05/08/17 08:27 - Medications Medications: Current Medications Amlodipine Besylate (Norvasc) 5 mg PO DAILY [facility] Last Admin: 05/09/17 10:00 Dose: Not Given Aspirin (Aspirin Chewable) 81 mg PO DAILY [facility] Last Admin: 05/09/17 10:15 Dose: 81 mg Clonidine HCl (Catapres) 0.1 mg PO TID [facility] Last Admin: 05/09/17 17:43 Dose: 0.1 mg Furosemide (Lasix) 40 mg IVP DAILY [facility] Last Admin: 05/09/17 10:15 Dose: 40 mg Heparin Sodium (Porcine) (Heparin) 5,000 units SC Q12 [facility] Ceftriaxone Sodium (Rocephin Iv 1 Gm Duplex) 50 mls @ 100 mls/hr IVPB Q24H [facility] Last Admin: 05/09/17 17:47 Dose: Not Given Azithromycin 500 mg/ Sodium (Chloride) 250 mls @ 250 mls/hr IVPB Q24H [facility] Last Admin: 05/09/17 17:47 Dose: Not Given Morphine Sulfate (Morphine) 0.5 mg IVP Q3 PRN PRN Reason: Pain, severe (8-10) Last Admin: 05/08/17 19:39 Dose: 0.5 mg Pneumococcal Polyvalent Vaccine (Pneumovax 23 Vaccine) 0.5 ml IM .ONCE ONE Stop: 05/11/17 10:01 Tramadol HCl (Ultram) 50 mg PO TID PRN PRN Reason: pain Last Admin: 05/09/17 21:38 Dose: 50 mg Physical Exam - Constitutional Appears: Chronically Ill - Head Exam Head Exam: NORMOCEPHALIC - Eye Exam Eye Exam: absent: Scleral icterus - ENT Exam ENT Exam: Mucous Membranes Moist - Neck Exam Neck exam: Positive for: Lymphadenopathy. Negative for: Full Rom - Respiratory Exam Respiratory Exam: Decreased Breath Sounds, Rhonchi - Cardiovascular Exam Cardiovascular Exam: REGULAR RHYTHM - GI/Abdominal Exam GI & Abdominal Exam: Soft. absent: Tenderness - Extremities Exam Extremities exam: Negative for: calf tenderness, pedal edema, tenderness - Neurological Exam Neurological exam: Alert, Oriented x3 Results - Vital Signs Recent Vital Signs: Last Vital Signs Temp 98.2 F 05/09/17 16:00 Pulse 74 05/09/17 16:01 Resp 18 05/09/17 16:00 BP 170/69 H 05/09/17 17:40 Pulse Ox 73 L 05/09/17 17:40 - Labs Result Diagrams: 05/09/17 08:42 05/09/17 08:42 Labs: Laboratory Results - last 24 hr 05/09/17 05/09/17 05/09/17 06:36 08:42 08:42 WBC 11.3 H RBC 4.63 Hgb 10.3 L Hct 33.4 L MCV 72.1 L MCH 22.2 L MCHC 30.8 L RDW 17.4 H Plt Count 269 MPV 9.8 PT INR APTT Sodium 143 Potassium 3.7 Chloride 103 Carbon Dioxide 25 Anion Gap 19 BUN 25 H Creatinine 1.2 Est GFR ( Amer) 53 Est GFR (Non-Af Amer) 44 POC Glucose (mg/dL) 104 Random Glucose 178 H Calcium 8.9 Total Bilirubin 0.5 AST 12 L ALT 19 Alkaline Phosphatase 75 Troponin I < 0.0120 Total Protein 5.9 L Albumin 3.2 L Globulin 2.7 Albumin/Globulin Ratio 1.2 05/09/17 05/09/17 05/09/17 11:48 16:27 16:44 WBC RBC Hgb Hct MCV MCH MCHC RDW Plt Count MPV PT 14.4 H INR 1.3 APTT 31 Sodium Potassium Chloride Carbon Dioxide Anion Gap BUN Creatinine Est GFR ( Amer) Est GFR (Non-Af Amer) POC Glucose (mg/dL) 141 H 82 Random Glucose Calcium Total Bilirubin AST ALT Alkaline Phosphatase Troponin I Total Protein Albumin Globulin Albumin/Globulin Ratio 05/09/17 21:23 WBC RBC Hgb Hct MCV MCH MCHC RDW Plt Count MPV PT INR APTT Sodium Potassium Chloride Carbon Dioxide Anion Gap BUN Creatinine Est GFR ( Amer) Est GFR (Non-Af Amer) POC Glucose (mg/dL) 117 H Random Glucose Calcium Total Bilirubin AST ALT Alkaline Phosphatase Troponin I Total Protein Albumin Globulin Albumin/Globulin Ratio Assessment & Plan - Assessment and Plan (Free Text) Assessment: COPD CAD HTN Plan: Bronchodilators Lasix,Arbs,beta-natalee Agree with Abtx
[2017-05-10 01:20] VITALS: RESP 20
[2017-05-10 07:38] LABS: HEMATOCRIT 31.1 % (34.0-47.0); MEAN CELL VOLUME 71.3 fL (81.0-99.0); MEAN CORPUSCULAR HEMOGLOBIN 22.5 pg (27.0-31.0); MEAN CORPUSCULAR HGB CONC 31.6 g/dL (33.0-37.0); MEAN PLATELET VOLUME 9.3 fL (7.2-11.7); RED CELL DISTRIBUTION WIDTH 17.2 % (11.5-14.5); WHITE BLOOD COUNT 8.8 K/uL (4.8-10.8)
[2017-05-10 07:49] LABS: POTASSIUM 3.5 mmol/L (3.6-5.2)
[2017-05-10 07:51] LABS: ALB/GLOB RATIO 1.3 (1.0-2.1); BILIRUBIN,TOTAL 0.5 mg/dL (0.2-1.3); CALCIUM 8.5 mg/dl (8.6-10.4); TOTAL PROTEIN 5.5 g/dL (6.3-8.3)
[2017-05-10] MEDS ORDERED: Potassium Chloride 20 mEq ER Tab PO ONE (10:00)
--- NOTE | 2017-05-10 11:23 | PN ---
SUBJECTIVE: I saw Kathy resting comfortably in bed this morning. Slept fairly well. No chest pain and no shortness of breath. She is trying to do well in physical therapy because for recommendation of physical therapy at [facility] as long as possible she can go there. PHYSICAL EXAMINATION: VITAL SIGNS: She has a 98.3 temperature, 68 pulse, 149/82 blood pressure, 20 respiratory rate, 100% O2 saturation on nasal cannula. HEENT: Head is atraumatic, normocephalic. Throat is moist. NECK: Supple. HEART: Regular rate. LUNGS: Decreased breath sounds with good auscultation. ABDOMEN: Soft and nontender. Positive bowel sounds. EXTREMITIES: No edema. Little bit weak. LABORATORY DATA: She has a 143 sodium, potassium 3.7 yesterday, BUN 25, creatinine 1.2, GFR is 44, last blood sugar is 117, calcium 8.9, total bilirubin is 0.5, AST is 12, ALT is 19, alkaline phosphatase 75, troponin I is less than 0.012, BNP 8260, and she is on IV Lasix, total protein is 5.9, INR is 1.3. White count came down to 11.3 with the antibiotics, 10.3 hemoglobin, hematocrit 32.4, platelet 269. MEDICATIONS: She is on Catapres, heparin, Lasix IV, morphine, p.r.n. Norvasc, Rocephin, and Ultram. ASSESSMENT AND PLAN: She is being seen by Cardiology. Pulmonary has not activated the chart yet. Continue with IV Lasix. Continue physical therapy. She might continue with [facility], [facility], also with physical therapy. I encouraged her to get out of bed to chair, physical therapy, IV fluids. Discussed with case management to help with discharge planning. Check her labs tomorrow. Continue diurese and antibiotics. She is here for chest pain, congestive heart failure and chronic obstructive pulmonary disease and weakness. John Brown DO [facility]
--- NOTE | 2017-05-10 15:59 | CP.PCM.CON ---
History of Present Illness - History of Present Illness History of Present Illness: SERRANO, worsening h/o CAD s/p AMI and stent 1 yr ago COPD with smoking h/o 40+ yrs CXR with congestive changes small left effusion and elevated PRO Bnp echo pending results Review of Systems - Respiratory Respiratory: Dyspnea, Dyspnea on Exertion Past Patient History - Infectious Disease Hx of Infectious Diseases: None - Tetanus Immunizations Tetanus Immunization: Unknown - Past Medical History & Family History Past Medical History?: Yes - Past Social History Smoking Status: Former Smoker - CARDIAC Hx Cardiac Disorders: Yes Hx Congestive Heart Failure: Yes Hx Hypercholesterolemia: Yes Hx Hypertension: Yes - PULMONARY Hx Chronic Obstructive Pulmonary Disease (COPD): Yes - NEUROLOGICAL HX Cerebrovascular Accident: Yes - HEENT Hx HEENT Problems: Yes (left eye blurry) 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 right leg DVT - INTEGUMENTARY Hx Dermatological Problems: No - MUSCULOSKELETAL/RHEUMATOLOGICAL Hx Arthritis: Yes - GASTROINTESTINAL Hx Gastrointestinal Disorders: Yes Hx Gastroesophageal Reflux: Yes - GENITOURINARY/GYNECOLOGICAL Hx Genitourinary Disorders: Yes Hx Bladder Cancer: Yes - PSYCHIATRIC Hx Psychophysiologic Disorder: Yes Hx Anxiety: Yes Hx Schizophrenia: Yes Hx Substance Use: No - SURGICAL HISTORY Hx Surgeries: Yes Hx Coronary Stent: Yes - ANESTHESIA Hx Anesthesia: Yes Hx Anesthesia Reactions: No Hx Malignant Hyperthermia: No Has any member of the family had a problem w/ anesthesia?: No Meds Allergies/Adverse Reactions: Allergies Allergy/AdvReac Type Severity Reaction Status Date / Time iodine Allergy Severe ANAPHYLAXIS Verified 05/08/17 08:26 iv dye Allergy Severe ANAPHYLAXIS Uncoded 05/08/17 08:27 - Medications Medications: Current Medications Amlodipine Besylate (Norvasc) 5 mg PO DAILY [facility] Last Admin: 05/10/17 09:30 Dose: 5 mg Aspirin (Aspirin Chewable) 81 mg PO DAILY [facility] Last Admin: 05/10/17 09:30 Dose: 81 mg Clonidine HCl (Catapres) 0.1 mg PO TID [facility] Last Admin: 05/10/17 14:35 Dose: 0.1 mg Furosemide (Lasix) 40 mg IVP DAILY [facility] Last Admin: 05/10/17 09:30 Dose: 40 mg Heparin Sodium (Porcine) (Heparin) 5,000 units SC Q12 [facility] Last Admin: 05/10/17 12:05 Dose: 5,000 units Ceftriaxone Sodium (Rocephin Iv 1 Gm Duplex) 50 mls @ 100 mls/hr IVPB Q24H [facility] Last Admin: 05/09/17 17:47 Dose: Not Given Azithromycin 500 mg/ Sodium (Chloride) 250 mls @ 250 mls/hr IVPB Q24H [facility] Last Admin: 05/09/17 17:47 Dose: Not Given Morphine Sulfate (Morphine) 0.5 mg IVP Q3 PRN PRN Reason: Pain, severe (8-10) Last Admin: 05/08/17 19:39 Dose: 0.5 mg Pneumococcal Polyvalent Vaccine (Pneumovax 23 Vaccine) 0.5 ml IM .ONCE ONE Stop: 05/11/17 10:01 Tramadol HCl (Ultram) 50 mg PO TID PRN PRN Reason: pain Last Admin: 05/10/17 05:19 Dose: 50 mg Physical Exam - Constitutional Appears: Chronically Ill - Head Exam Head Exam: ATRAUMATIC, NORMOCEPHALIC - Eye Exam Eye Exam: Normal appearance - ENT Exam ENT Exam: Mucous Membranes Moist - Respiratory Exam Respiratory Exam: Decreased Breath Sounds, Rales - Cardiovascular Exam Cardiovascular Exam: +S1, +S2 - GI/Abdominal Exam GI & Abdominal Exam: Normal Bowel Sounds - Rectal Exam Rectal Exam: Deferred - Neurological Exam Neurological exam: Alert, Oriented x3 - Psychiatric Exam Psychiatric exam: Normal Affect, Normal Mood - Skin Skin Exam: Intact Results - Vital Signs Recent Vital Signs: Last Vital Signs Temp 98.1 F 05/10/17 08:00 Pulse 75 05/10/17 12:06 Resp 20 05/10/17 08:00 BP 176/75 H 05/10/17 12:06 Pulse Ox 99 05/10/17 08:00 - Labs Result Diagrams: 05/10/17 07:21 05/10/17 07:21 Labs: Laboratory Results - last 24 hr 05/09/17 05/09/17 05/09/17 16:27 16:44 21:23 WBC RBC Hgb Hct MCV MCH MCHC RDW Plt Count MPV PT 14.4 H INR 1.3 APTT 31 Sodium Potassium Chloride Carbon Dioxide Anion Gap BUN Creatinine Est GFR ( Amer) Est GFR (Non-Af Amer) POC Glucose (mg/dL) 82 117 H Random Glucose Calcium Total Bilirubin AST ALT Alkaline Phosphatase NT-Pro-B Natriuret Pep Total Protein Albumin Globulin Albumin/Globulin Ratio 05/09/17 05/10/17 05/10/17 22:56 06:09 07:21 WBC 8.8 RBC 4.36 Hgb 9.8 L Hct 31.1 L MCV 71.3 L MCH 22.5 L MCHC 31.6 L RDW 17.2 H Plt Count 249 MPV 9.3 PT INR APTT Sodium Potassium Chloride Carbon Dioxide Anion Gap BUN Creatinine Est GFR ( Amer) Est GFR (Non-Af Amer) POC Glucose (mg/dL) 92 Random Glucose Calcium Total Bilirubin AST ALT Alkaline Phosphatase NT-Pro-B Natriuret Pep 8260 H Total Protein Albumin Globulin Albumin/Globulin Ratio 05/10/17 05/10/17 07:21 11:50 WBC RBC Hgb Hct MCV MCH MCHC RDW Plt Count MPV PT INR APTT Sodium 139 Potassium 3.5 L Chloride 102 Carbon Dioxide 27 Anion Gap 13 BUN 24 H Creatinine 1.1 Est GFR ( Amer) 59 Est GFR (Non-Af Amer) 49 POC Glucose (mg/dL) 121 H Random Glucose 92 Calcium 8.5 L Total Bilirubin 0.5 AST 12 L ALT 21 Alkaline Phosphatase 66 NT-Pro-B Natriuret Pep Total Protein 5.5 L Albumin 3.1 L Globulin 2.4 Albumin/Globulin Ratio 1.3 Assessment & Plan (1) Congestive heart failure Status: Acute Comment: check echo, lasix (2) COPD exacerbation Status: Acute Comment: add nebs, needs home meds advair/breo and spiriva. smoking cessation. 6mw prior to discharge to evaluate for hypoxemia with exertion
[2017-05-10] MEDS: cefTRIAXone IV 1 gm in Dextros 50 ML IVPB SCH (17:04)
[2017-05-10] MEDS: Azithromycin 500 MG in Sodium Chloride 0.9% 250 ML IVPB SCH ×2 (18:00→18:34)
--- NOTE | 2017-05-10 18:49 | CARD ---
APPROVED REPORT EXAM: Two-dimensional and M-mode echocardiogram with Doppler and color Doppler. Other Information Quality : GoodRhythm : INDICATION Dizziness and Vertigo Dyspnea LV Function:Systolic Congestive Heart Failure COPD RISK FACTORS Hypertension M-Mode DIMENSIONS RVDd2.48 (2.1-3.2cm)Left Atrium (MM)4.20 (2.5-4.0cm) IVSd1.07 (0.7-1.1cm)Aortic Root2.62 (2.2-3.7cm) LVDd4.65 (4.0-5.6cm)Aortic Cusp Exc.1.75 (1.5-2.0cm) PWd1.13 (0.7-1.1cm)FS (%) 33 % LVDs3.13 (2.0-3.8cm)LVEF (%)61 (>50%) Mitral Valve MV E Iemoihmm49.3cm/sMV A Ouadsfxk89.5cm/sE/A ratio0.6 TDI E/Lateral E'0.0E/Medial E'0.0 Tricuspid Valve TR Peak Rnjkqzef812jp/sTR Peak Gr.[id number] LEFT VENTRICLE The left ventricle is normal size. There is normal left ventricular wall thickness. The left ventricular function is normal. The left ventricular ejection fraction is within the normal range. There is normal LV segmental wall motion. Transmitral Doppler flow pattern is abnormal. RIGHT VENTRICLE The right ventricle is normal size. ATRIA The left atrium is mildly dilated. The right atrium is mildly dilated. AORTIC VALVE The aortic valve is normal in structure. MITRAL VALVE Mitral regurgitation is trace. TRICUSPID VALVE There is moderate to severe tricuspid regurgitation. <Conclusion> Normal LV systolic function. Diastolic dysfunction. Dilated RA and LA. Trace MR. Moderate to severe TR.
[2017-05-10] MEDS: Fluticasone-Salmeterol 250-50mcg Diskus INH SCH (21:37)
[2017-05-10] MEDS: Albuterol-Ipratrop 3 mg / 0.5 (3 ml) UD INH SCH (21:38)
[2017-05-11] MEDS: Albuterol-Ipratrop 3 mg / 0.5 (3 ml) UD INH SCH ×2 (00:39→07:07)
[2017-05-11] MEDS: Fluticasone-Salmeterol 250-50mcg Diskus INH SCH (07:07)
[2017-05-11] MEDS ORDERED: Tiotropium 18 mcg Cap For Inhalation INH SCH (08:00)
--- NOTE | 2017-05-11 08:04 | CP.PCM.PN ---
Subjective - Date & Time of Evaluation Date of Evaluation: 05/10/17 Time of Evaluation: 08:01 - Subjective Subjective: still sob on minimal exertion no chest pain CXR - noted Echo - nL LV syst function moderate TR Objective - Vital Signs/Intake and Output Vital Signs (last 24 hours): Temp Pulse Resp BP Pulse Ox 97.9 F 68 20 156/65 H 99 05/10/17 15:00 05/11/17 01:00 05/10/17 15:00 05/10/17 22:05 05/10/17 15:00 Intake and Output: 05/11/17 05/11/17 06:59 18:59 Intake Total 580 Balance 580 - Medications Medications: Current Medications Albuterol/Ipratropium (Duoneb 3 Mg/0.5 Mg (3 Ml) Ud) 3 ml INH RQ6 [facility] Last Admin: 05/11/17 07:07 Dose: Not Given Amlodipine Besylate (Norvasc) 5 mg PO DAILY [facility] Last Admin: 05/10/17 09:30 Dose: 5 mg Aspirin (Aspirin Chewable) 81 mg PO DAILY [facility] Last Admin: 05/10/17 09:30 Dose: 81 mg Clonidine HCl (Catapres) 0.1 mg PO TID [facility] Last Admin: 05/10/17 22:05 Dose: 0.1 mg Furosemide (Lasix) 40 mg IVP DAILY [facility] Last Admin: 05/10/17 09:30 Dose: 40 mg Heparin Sodium (Porcine) (Heparin) 5,000 units SC Q12 [facility] Last Admin: 05/10/17 22:29 Dose: 5,000 units Ceftriaxone Sodium (Rocephin Iv 1 Gm Duplex) 50 mls @ 100 mls/hr IVPB Q24H [facility] Last Admin: 05/10/17 17:04 Dose: 100 mls/hr Azithromycin 500 mg/ Sodium (Chloride) 250 mls @ 250 mls/hr IVPB Q24H [facility] Last Admin: 05/10/17 18:00 Dose: Not Given Pneumococcal Polyvalent Vaccine (Pneumovax 23 Vaccine) 0.5 ml IM .ONCE ONE Stop: 05/11/17 10:01 Fluticasone/Salmeterol (Advair Diskus 250/50) 1 puff INH RQ12 [facility] Last Admin: 05/11/17 07:07 Dose: Not Given Tiotropium [place] (Spiriva) 18 mcg INH RQ24 [facility] Last Admin: 05/11/17 07:08 Dose: Not Given Tramadol HCl (Ultram) 50 mg PO TID PRN PRN Reason: pain Last Admin: 05/10/17 19:50 Dose: 50 mg - Labs Labs: 05/10/17 07:21 05/10/17 07:21 PT 14.4 SECONDS (9.7-12.2) H 05/09/17 16:44 INR 1.3 05/09/17 16:44 APTT 31 SECONDS (21-34) 05/09/17 16:44 - Constitutional Appears: Non-toxic - Head Exam Head Exam: NORMAL INSPECTION - Eye Exam Eye Exam: absent: Scleral icterus - ENT Exam ENT Exam: Mucous Membranes Moist - Neck Exam Neck Exam: absent: Lymphadenopathy - Respiratory Exam Respiratory Exam: Decreased Breath Sounds - Cardiovascular Exam Cardiovascular Exam: REGULAR RHYTHM - GI/Abdominal Exam GI & Abdominal Exam: Soft. absent: Tenderness - Extremities Exam Extremities Exam: Pedal Edema, Tenderness. absent: Calf Tenderness Assessment and Plan - Assessment and Plan (Free Text) Assessment: COPD CHF Plan: Cont Lasix, bronchodilators
--- NOTE | 2017-05-11 08:10 | CP.PCM.PN ---
Subjective - Date & Time of Evaluation Date of Evaluation: 05/11/17 Time of Evaluation: 08:07 - Subjective Subjective: doing better no sob no leg edema pro-BNP 15,400 -->8264 Objective - Vital Signs/Intake and Output Vital Signs (last 24 hours): Temp Pulse Resp BP Pulse Ox 97.9 F 68 20 156/65 H 99 05/10/17 15:00 05/11/17 01:00 05/10/17 15:00 05/10/17 22:05 05/10/17 15:00 Intake and Output: 05/11/17 05/11/17 06:59 18:59 Intake Total 580 Balance 580 - Medications Medications: Current Medications Albuterol/Ipratropium (Duoneb 3 Mg/0.5 Mg (3 Ml) Ud) 3 ml INH RQ6 [facility] Last Admin: 05/11/17 07:07 Dose: Not Given Amlodipine Besylate (Norvasc) 5 mg PO DAILY [facility] Last Admin: 05/10/17 09:30 Dose: 5 mg Aspirin (Aspirin Chewable) 81 mg PO DAILY [facility] Last Admin: 05/10/17 09:30 Dose: 81 mg Clonidine HCl (Catapres) 0.1 mg PO TID [facility] Last Admin: 05/10/17 22:05 Dose: 0.1 mg Furosemide (Lasix) 40 mg IVP DAILY [facility] Last Admin: 05/10/17 09:30 Dose: 40 mg Heparin Sodium (Porcine) (Heparin) 5,000 units SC Q12 [facility] Last Admin: 05/10/17 22:29 Dose: 5,000 units Ceftriaxone Sodium (Rocephin Iv 1 Gm Duplex) 50 mls @ 100 mls/hr IVPB Q24H [facility] Last Admin: 05/10/17 17:04 Dose: 100 mls/hr Azithromycin 500 mg/ Sodium (Chloride) 250 mls @ 250 mls/hr IVPB Q24H [facility] Last Admin: 05/10/17 18:00 Dose: Not Given Pneumococcal Polyvalent Vaccine (Pneumovax 23 Vaccine) 0.5 ml IM .ONCE ONE Stop: 05/11/17 10:01 Fluticasone/Salmeterol (Advair Diskus 250/50) 1 puff INH RQ12 [facility] Last Admin: 05/11/17 07:07 Dose: Not Given Tiotropium [place] (Spiriva) 18 mcg INH RQ24 [facility] Last Admin: 05/11/17 07:08 Dose: Not Given Tramadol HCl (Ultram) 50 mg PO TID PRN PRN Reason: pain Last Admin: 05/10/17 19:50 Dose: 50 mg - Labs Labs: 05/10/17 07:21 05/10/17 07:21 PT 14.4 SECONDS (9.7-12.2) H 05/09/17 16:44 INR 1.3 05/09/17 16:44 APTT 31 SECONDS (21-34) 05/09/17 16:44 - Constitutional Appears: No Acute Distress - Head Exam Head Exam: NORMAL INSPECTION - Eye Exam Eye Exam: absent: Scleral icterus - ENT Exam ENT Exam: Mucous Membranes Moist - Neck Exam Neck Exam: Full ROM - Respiratory Exam Respiratory Exam: Decreased Breath Sounds, Clear to Ausculation Bilateral - Cardiovascular Exam Cardiovascular Exam: REGULAR RHYTHM - GI/Abdominal Exam GI & Abdominal Exam: Soft. absent: Tenderness - Extremities Exam Extremities Exam: Tenderness. absent: Pedal Edema - Neurological Exam Neurological Exam: Alert, Oriented x3 Assessment and Plan - Assessment and Plan (Free Text) Assessment: COPD CAD Plan: oK for DC from cardiac standpoint Pt will f/u w/ Dr Brown
--- NOTE | 2017-05-11 08:50 | PCM.HF ---
Heart Failure Core Measure - Heart Failure Ejection Fraction: 40 % or Greater AGGIE Inhibitor Prescribed: No Contraindication/Reason for not providing: EF>45 Beta-Jose Prescribed: None Contraindication/Reason for not providing: copd Contraindication/Reason for not providing: ef>45 AnticoagulationTherapy for Atrial Fibrillation/Atrialflutter: No Contraindication/Reason for not providing: no hx of afib Aldosterone Antagonist Prescribed: No Contraindication/Reason for not providing: ef>45 Hydralazine Nitrate Prescribed: No Contraindication/Reason for not providing: ef>45 Implantable Cardioverter Defibrillator Therapy: No Contraindication/Reason for not providing: ef>45 Cardiac Resynchronization Therapy Prescribed: No Contraindication/Reason for not providing: ef>45 - Follow up Will be discharged to: Home Follow Up Date (must be within 7 days from discharge): 05/15/17 Follow Up Time: 09:00
[2017-05-11] MEDS ORDERED: Pneumococcal 23-Valent Vaccine IM ONE (10:00)
[2017-05-11 10:10] VITALS: TEMP 98; O2SAT 100
[2017-05-11 16:21] VITALS: BP 168/57; PULSE 82
--- NOTE | 2017-05-12 05:16 | DS ---
SUBJECTIVE: I saw her resting comfortable in bed this morning. She tells me she is going home today. She is not staying any further. She is not going to rehab. She will go home and walks with a walker. States she can do it, she is not going to be in the hospital anymore. She is not sleeping well and she is going to go home on her medications which is Advair, aspirin, Zithromax p.o., Catapres, DuoNebs, Lasix, Norvasc, Spiriva, and tramadol. She is happy about going home and she wants to leave today. PHYSICAL EXAMINATION: VITAL SIGNS: She has a 97.9 temperature, 71 pulse, 142/60 blood pressure, 20 respiratory rate and 99% O2 saturation on 2 liters nasal cannula. HEENT: Head is atraumatic and normocephalic. Throat is moist. NECK: Supple. HEART: Regular rate. LUNGS: Decreased breath sounds. Clear to auscultation. ABDOMEN: Soft. EXTREMITIES: No edema. LABORATORY DATA: She has an 8.8 white count, 9.8 hemoglobin and 31.1 hematocrit with 249 platelets. She has a 139 sodium, potassium is 3.5, BUN 24, and creatinine 1.1. Blood sugar was 149, calcium is 8.5, total bilirubin is 0.5, AST is 12, ALT is 21, alkaline phosphatase is 66, and total protein is 5.5. She was seen by cardiology and pulmonology. She is not allowed to smoke anymore. Outpatient followup. She is going to call me for a house call. She was here for COPD, CAD, hypertension. We will discharge her home. John Brown DO
== END 2017-05-11 12:34 | disposition home or self-care (01) | DRG 292 ==
LOC: C.ER 08:15 → C.9E 10:24 → C.5T 14:22 → OBSVTOIN 15:25
PROVIDERS: ADMIT Family Medicine; ATTEND Family Medicine
DX: I11.0 Hypertensive heart disease with heart failure (principal); J44.1 Chronic obstructive pulmonary disease with (acute) exacerbation; F03.90 Unspecified dementia, unspecified severity, without behavioral disturbance, psychotic disturbance, mood disturbance, and anxiety; I25.10 Atherosclerotic heart disease of native coronary artery without angina pectoris; E78.5 Hyperlipidemia, unspecified; F17.200 Nicotine dependence, unspecified, uncomplicated; I50.9 Heart failure, unspecified; M19.90 Unspecified osteoarthritis, unspecified site; E78.00 Pure hypercholesterolemia, unspecified; Z98.61 Coronary angioplasty status; Z88.8 Allergy status to other drugs, medicaments and biological substances; Z86.73 Personal history of transient ischemic attack (TIA), and cerebral infarction without residual deficits; Z85.3 Personal history of malignant neoplasm of breast; M81.0 Age-related osteoporosis without current pathological fracture

== ENCOUNTER 2017-06-04 16:21 | Inpatient (IN) | payer MEDICARE, MEDICAID ==
[2017-06-04 16:21] VITALS: BMI 16.5
[2017-06-04] MEDS ORDERED: Aspirin 325 mg EC Tablets PO STA (17:03)
[2017-06-04 17:41] LABS: BASO # 0.1 K/uL (0.0-0.2); BASO % 0.9 % (0.0-2.0); EOS # 0.2 K/uL (0.0-0.7); HEMATOCRIT 30.3 % (34.0-47.0); LYMPH # 1.5 K/uL (1.0-4.3); MEAN CELL VOLUME 70.2 fL (81.0-99.0); MEAN CORPUSCULAR HEMOGLOBIN 21.6 pg (27.0-31.0); MEAN CORPUSCULAR HGB CONC 30.7 g/dL (33.0-37.0); MEAN PLATELET VOLUME 9.2 fL (7.2-11.7); MONO # 0.6 K/uL (0.0-0.8); MONO % 5.4 % (0.0-10.0); RED CELL DISTRIBUTION WIDTH 16.7 % (11.5-14.5); WHITE BLOOD COUNT 10.6 K/uL (4.8-10.8)
[2017-06-04 17:56] LABS: ALB/GLOB RATIO 1.3 (1.0-2.1); BILIRUBIN,TOTAL 0.3 mg/dL (0.2-1.3); CALCIUM 8.9 mg/dl (8.6-10.4); INR 1.1; MAGNESIUM 1.6 mg/dL (1.6-2.3); TOTAL PROTEIN 6.5 g/dL (6.3-8.3)
--- NOTE | 2017-06-04 17:59 | RAD ---
PROCEDURE: CHEST RADIOGRAPH, 1 VIEW HISTORY: chest pain COMPARISON: Portable chest 05/08/2017 FINDINGS: LUNGS: No wall veil infiltrate identified. Diffuse interstitial pulmonary changes persist. PLEURA: No pneumothorax or pleural fluid seen. CARDIOVASCULAR: Normal. OSSEOUS STRUCTURES: No significant abnormalities. VISUALIZED UPPER ABDOMEN: Normal. OTHER FINDINGS: None. IMPRESSION: Apparent interval resolution of left pleural effusion and likely atelectasis infiltrate at the left base. No interval right-sided infiltrate. Underlying interstitial pulmonary disease again noted diffusely. .
[2017-06-04 18:07] LABS: TROPONIN I 0.02 ng/mL (0.00-0.120)
[2017-06-04] MEDS ORDERED: Nitroglycerin 2% Ointment Foilpak UD TOP STA (18:22)
[2017-06-04] MEDS ORDERED: Morphine 4 MG/ML VIAL ONE (18:24)
[2017-06-04] MEDS ORDERED: Nitroglycerin 2% Ointment Foilpak UD TOP ONE (18:24)
[2017-06-04] MEDS ORDERED: Enalaprilat 2.5 MG/2 ML IV ONE (19:14)
[2017-06-04] MEDS ORDERED: Enalaprilat 2.5 MG/2 ML ONE (19:20)
--- NOTE | 2017-06-04 20:41 | C.PDOC ---
Time Seen by Provider: 06/04/17 16:52 Chief Complaint (Nursing): Chest Pain History Per: Patient Onset/Duration Of Symptoms: Days, Intermittent Episodes Current Symptoms Are (Timing): Still Present Severity: Moderate Quality: "Pain" Associated Symptoms: Dyspnea Modifying Factors: Other Indicated Below Exacerbating Factors: Exertion Additional History Per: Prior Records Past Medical History Reviewed: Historical Data, Nursing Documentation, Vital Signs Vital Signs: Last Vital Signs Temp 98.0 F 06/04/17 18:11 Pulse 90 06/04/17 20:32 Resp 18 06/04/17 20:32 BP 180/91 H 06/04/17 20:33 Pulse Ox 98 06/04/17 20:32 - Medical History PMH: Anemia, Anxiety, Arthritis, Back Problems, Bronchitis, CAD, CHF, COPD, CVA , Dementia, Deep Vein Thrombosis, Emphysema, Fractures (Right Hip), HTN, Hypercholesterolemia, Hyperlipidemia, Malignancy (Breast CA left 4 yrs ago, patient in remission, last chemo was 3 years ago), Osteoporosis, Peripheral Edema, Chronic Kidney Disease, Schizophrenia, TIA Surgical History: Coronary Stent - [facility] Procedures ANGIOPLASTY OF OTHER NON-CORONARY VESSEL(S) (07/26/12) CONTR CEREBR ARTERIOGRAM (06/25/15) CONTRAST AORTOGRAM (07/26/12) DILATION OF 2 COR ART WITH DRUG-ELUT INTRALUM, PERC APPROACH (10/27/15) DX ULTRASOUND-HEART (04/04/15) EXCISION OF TOE NAIL, EXTERNAL APPROACH (09/17/16) EXERCISE TREATMENT OF MUSCULOSK WHOLE USING ASSIST EQUIPMENT (09/17/16) FLUOROSCOPY OF LEFT HEART USING LOW OSMOLAR CONTRAST (07/06/16) FLUOROSCOPY OF MULT COR ART USING L OSM CONTRAST (07/06/16) GAIT TRAINING/AMBULAT TREATMENT USING ASSIST EQUIPMENT (09/17/16) GROOMING/PERSONAL HYGIENE TREATMENT USING ASSIST EQUIPMENT (09/17/16) INSEJ OF DRUG-ELUTING STENT(S) OF OTH PERIPHERAL VESSEL(S) (07/26/12) INSERTION OF TWO VASCULAR STENTS (07/26/12) INSPECTION OF UPPER INTESTINAL TRACT, ENDO (10/31/16) MEASURE OF CARDIAC SAMPL & PRESSURE, L HEART, PERC APPROACH (07/06/16) PACKED CELL TRANSFUSION (11/06/13) PARTIAL HIP REPLACEMENT (11/06/13) PLAIN RADIOGRAPHY OF LEFT HEART USING LOW OSMOLAR CONTRAST (10/27/15) PLAIN RADIOGRAPHY OF MULT COR ART USING L OSM CONTRAST (10/27/15) PROCEDURE ON FOUR OR MORE VESSELS (07/26/12) REMOVAL OF VAD FROM UP EXTREM SUBCU/FASCIA, HOUSE SERVANT APPROACH (07/06/15) Family History: States: Unknown Family Hx - Social History Hx Tobacco Use: Yes Hx Alcohol Use: No Hx Substance Use: No - Immunization History Hx Tetanus Toxoid Vaccination: No Hx Influenza Vaccination: No Hx Pneumococcal Vaccination: No Review Of Systems Except As Marked, All Systems Reviewed And Found Negative. Constitutional: Negative for: Fever Cardiovascular: Positive for: Chest Pain Respiratory: Positive for: SOB with Excertion Gastrointestinal: Negative for: Vomiting, Abdominal Pain Musculoskeletal: Negative for: Neck Pain, Back Pain Skin: Negative for: Rash Neurological: Negative for: Weakness, Numbness, Seizures, Altered Mental Status Physical Exam - Physical Exam Appears: Non-toxic, Other (Uncomfortable) Skin: Normal Color, Warm, Dry, No Rash Head: Atraumatic, Normacephalic Eye(s): bilateral: PERRL, EOMI Neck: Normal ROM, Supple Cardiovascular: Rhythm Regular Respiratory: Normal Breath Sounds, No Accessory Muscle Use Gastrointestinal/Abdominal: Soft, No Tenderness Extremity: Normal ROM, No Calf Tenderness Neurological/Psych: Oriented x3, Normal Motor, Normal Sensation ED Course And Treatment - Laboratory Results Result Diagrams: 06/04/17 17:38 06/04/17 17:38 Interpretation Of Abnormal: Anemia. Renal insufficiency. ECG: Interpreted By Me, Viewed By Me ECG Rhythm: Sinus Tachycardia, Nonspecific Changes Rate From EC O2 Sat by Pulse Oximetry: 98 Pulse Ox Interpretation: Normal - Radiology CXR: Viewed By Me, Read By Radiologist CXR Interpretation: Yes: No Acute Disease Progress Note: Pt was found to be hypertensive. Pt treated with multiple antihypertensive medications with modest improvement in blood pressure. Progress - Interventions Interventions:: Observation, Oxygen - Medications Administered Oral: Aspirin Intravenous: Antihypertensive, Opiate - Data Reviewed Data Reviewed: Lab, Diagnostic imaging, EKG, Old records - Patient Status Patient status: Partially improved - Critical Care Citical Care: Excluding Proc Time Critical Care Time: 60 minutes - Continuity of Care Discussed patient case with:: Patient, ED Nurse, PMD Disposition Discussed With : John Brown Comment: He accepted pt on his service. Doctor Will See Patient In The: Hospital Counseled Patient/Family Regarding: Studies Performed, Diagnosis, Smoking Cessation - Disposition Disposition: HOSPITALIZED Disposition Time: 20:45 Condition: GUARDED - Clinical Impression Clinical Impression: Chest pain, Uncontrolled hypertension
[2017-06-05 06:18] LABS: BASO # 0.1 K/uL (0.0-0.2); BASO % 0.9 % (0.0-2.0); EOS # 0.4 K/uL (0.0-0.7); EOS % 4.4 % (0.0-4.0); HEMATOCRIT 27.9 % (34.0-47.0); LYMPH # 1.6 K/uL (1.0-4.3); LYMPH % 18.2 % (20.0-40.0); MEAN CELL VOLUME 69.3 fL (81.0-99.0); MEAN CORPUSCULAR HEMOGLOBIN 21.8 pg (27.0-31.0); MEAN CORPUSCULAR HGB CONC 31.4 g/dL (33.0-37.0); MEAN PLATELET VOLUME 9.2 fL (7.2-11.7); MONO # 0.6 K/uL (0.0-0.8); MONO % 6.8 % (0.0-10.0); RED CELL DISTRIBUTION WIDTH 17.4 % (11.5-14.5); WHITE BLOOD COUNT 8.9 K/uL (4.8-10.8)
[2017-06-05 06:37] LABS: ALB/GLOB RATIO 1.2 (1.0-2.1); BILIRUBIN,TOTAL 0.2 mg/dL (0.2-1.3); POTASSIUM 3.8 mmol/L (3.6-5.2); TOTAL PROTEIN 5.4 g/dL (6.3-8.3)
[2017-06-05] MEDS: Enoxaparin 40 mg Syringe SC SCH (10:56)
[2017-06-05] MEDS ORDERED: Azithromycin 500 MG in Sodium Chloride 0.9% 250 ML IVPB SCH (12:00)
--- NOTE | 2017-06-05 15:56 | HP ---
HISTORY OF PRESENT ILLNESS: I know Kathy very well from multiple house calls and multiple hospital admissions and we are at [facility] today, not [place]. She is here with some shortness of breath and chest pain, which she has done many times in the past. She is a [id number] with a few days of chest pain and shortness of breath, this steadily got worse and then began worse with exertion for which she came to the hospital. PAST MEDICAL HISTORY: She has a past medical history, which is fairly extensive with anemia, anxiety, arthritis, back pain, bronchitis, CAD, CHF, COPD, CVA, dementia, deep vein thrombosis, emphysema, right hip fractures and repair, hypertension, high cholesterol, malignancy of the breast, left breast 4 years ago in remission, last chemo 3 years ago, osteoporosis, peripheral edema, chronic kidney disease, schizophrenia, and TIA. She has coronary stents. She had angioplasties, contrast cerebral aortograms, dilation of the 2 coronary arteries with drug-eluting stents. She has had excision of toenails, fluoroscopies,and multiple physical therapies, and insertion of 2 vascular stents. She has had left heart catheterization. She has been transfused, left hip ORIF. She has had multiple issues. FAMILY HISTORY: She has hypertension and diabetes in the family. SOCIAL HISTORY: She does smoke. I think she stopped smoking. No alcohol and no drug at this time. ALLERGIES: IV DYE AND IODINE. MEDICATIONS: She had medicines of aspirin, clonidine, hydrochlorothiazide, amlodipine, simvastatin, and tramadol. REVIEW OF SYSTEMS: No acute vision changes. No acute hearing changes. No sore throat. No neck pain. There is chest pain. There is shortness of breath. No coughing. No mucus, but there is exertional shortness of breath and there was chest pain with pressure. No abdominal pain, nausea, vomiting, constipation, or diarrhea. No extremity issues, but she is getting weak. No seizures or numbness. No skin rashes or ulcers. PHYSICAL EXAMINATION: VITAL SIGNS: Also, vital signs right now, they are now 98.5 temperature, 63 pulse, 147/59 blood pressure ,and 100% O2 sat on 3 L of nasal cannula with 18 breaths per minute. They were much worse when she came in with a 220/115 blood pressure. HEENT: Head is atraumatic and normocephalic. Extraocular muscles are intact. Pupils are equal and reactive to light and accommodation. Throat is moist. NECK: Supple. HEART: Regular rate. LUNGS: Decreased breath sounds, but clear to auscultation. ABDOMEN: Soft, nontender, and positive bowel sounds. EXTREMITIES: No edema. She can move all 4 extremities. NEUROLOGIC: GCS is 15. Cranial nerves II through XII grossly intact. SKIN; Warm and dry. No rashes or ulcers at this time. THYROID: Midline. No palpable lymphadenopathy. LABORATORY DATA: She had a lab work. She had a 144 sodium, potassium 3.8, BUN is 23, and creatinine is 1.2; all better than when she came in. Her BUN was 26 and creatinine was 1.3 on admission. Her GFR was 44. Sugar was 205, now it is 99, calcium is 9, magnesium is 1.6, total bilirubin is 0.2, AST is 12, ALT is 17, and alkaline phosphatase is 64. From the first troponin when she came to the hospital 0.02 and then it popped to 0.28, which is elevated. Her BNP is 10,300; we put her on IV Lasix. Total protein is 5.4. Her lipase is 30. INR is 1.1. She had 8.9 white count. Hemoglobin on admission was 9.3, dropped to 8.8. Her platelets are 259. She had an x-ray done, it shows apparent interval resolution of left pleural effusion likely atelectasis, infiltrate at the left base. No interval right-sided infiltrate. Underlying interstitial pulmonary disease noted. So, she has an apparent pneumonia also on the right base. PLAN: I will start on antibiotics, I will get pulmonary and cardiology involved. Her troponins are elevated and I will repeat one more at the left base is where she has pneumonia. I have one more troponin done, await for cardio and pulmonary, continue on IV antibiotics, Lovenox, clonidine, Norvasc, aspirin, and she did have a positive troponin. We will continue with aggressive treatment and care. Kathy Painter is here for chest pain, positive troponin. I will make her an inpatient and see if they want to do a cardiac cath on her. John Brown DO
[2017-06-06] MEDS ORDERED: Levalbuterol 0.31 mg/3ml Inhal Sol UD INH PRN (05:57)
[2017-06-06] MEDS ORDERED: Levalbuterol 0.63 MG/3 ML Inhal Soln UD INH PRN (05:57)
[2017-06-06 07:41] LABS: HEMATOCRIT 26.8 % (34.0-47.0); MEAN CELL VOLUME 68.8 fL (81.0-99.0); MEAN CORPUSCULAR HEMOGLOBIN 21.8 pg (27.0-31.0); MEAN CORPUSCULAR HGB CONC 31.6 g/dL (33.0-37.0); MEAN PLATELET VOLUME 9.4 fL (7.2-11.7); WHITE BLOOD COUNT 7.4 K/uL (4.8-10.8)
[2017-06-06 08:18] LABS: POTASSIUM 4.4 mmol/L (3.6-5.2)
[2017-06-06 08:20] LABS: BILIRUBIN,TOTAL 0.4 mg/dL (0.2-1.3)
[2017-06-06 08:21] LABS: ALB/GLOB RATIO 1.3 (1.0-2.1); CALCIUM 8.9 mg/dl (8.6-10.4); TOTAL PROTEIN 5.6 g/dL (6.3-8.3)
--- NOTE | 2017-06-06 08:49 | CP.PCM.PN ---
Subjective - Date & Time of Evaluation Date of Evaluation: 06/06/17 Time of Evaluation: 08:47 - Subjective Subjective: no chest pain +sob +baby trops Objective - Vital Signs/Intake and Output Vital Signs (last 24 hours): Temp Pulse Resp BP Pulse Ox 97.8 F 55 L 17 155/71 H 100 06/06/17 07:20 06/06/17 07:20 06/06/17 07:20 06/06/17 07:20 06/06/17 07:20 Intake and Output: 06/06/17 06/06/17 06:59 18:59 Intake Total 350 Output Total 300 Balance 50 - Medications Medications: Current Medications Amlodipine Besylate (Norvasc) 10 mg PO DAILY [facility] Last Admin: 06/05/17 10:55 Dose: 10 mg Aspirin (Ecotrin) 81 mg PO DAILY [facility] Last Admin: 06/05/17 10:55 Dose: 81 mg Azithromycin (Zithromax) 500 mg PO DAILY [facility] Clonidine HCl (Catapres) 0.1 mg PO Q8H [facility] Last Admin: 06/06/17 05:45 Dose: 0.1 mg Enoxaparin Sodium (Lovenox) 40 mg SC DAILY [facility] Last Admin: 06/05/17 10:56 Dose: 40 mg Furosemide (Lasix) 40 mg IVP DAILY [facility] Last Admin: 06/05/17 10:55 Dose: 40 mg Ceftriaxone Sodium 1 gm/ (Sodium Chloride) 100 mls @ 100 mls/hr IVPB DAILY@ 1100 [facility] Last Admin: 06/05/17 12:00 Dose: Not Given Levalbuterol HCl (Xopenex) 0.31 mg INH RQ8 PRN PRN Reason: Cough Levalbuterol HCl (Xopenex) 0.63 mg INH RQ8 PRN PRN Reason: Cough Morphine Sulfate (Morphine) 2 mg IVP Q4 PRN PRN Reason: Pain, moderate (4-7) Last Admin: 06/05/17 12:11 Dose: 2 mg Nitroglycerin (Nitrostat Sl Tab) 0.4 mg SL Q5M PRN PRN Reason: Pain, moderate (4-7) Pneumococcal Polyvalent Vaccine (Pneumovax 23 Vaccine) 0.5 ml IM .ONCE ONE Stop: 06/06/17 10:01 Tramadol HCl (Ultram) 50 mg PO Q8H [facility] Last Admin: 06/06/17 05:44 Dose: 50 mg - Labs Labs: 06/06/17 07:24 06/06/17 07:24 PT 12.4 SECONDS (9.7-12.2) H 06/04/17 17:38 INR 1.1 06/04/17 17:38 APTT 32 SECONDS (21-34) 06/04/17 17:38 - Constitutional Appears: Non-toxic - Head Exam Head Exam: NORMAL INSPECTION - Eye Exam Eye Exam: Scleral icterus Pupil Exam: PERRL - ENT Exam ENT Exam: Mucous Membranes Moist - Neck Exam Neck Exam: Full ROM - Respiratory Exam Respiratory Exam: Decreased Breath Sounds. absent: Rales, Rhonchi, Wheezes - Cardiovascular Exam Cardiovascular Exam: REGULAR RHYTHM - GI/Abdominal Exam GI & Abdominal Exam: Soft. absent: Tenderness - Extremities Exam Extremities Exam: absent: Calf Tenderness, Pedal Edema, Tenderness - Neurological Exam Neurological Exam: Alert, Oriented x3 Assessment and Plan - Assessment and Plan (Free Text) Assessment: ACS CAD COPD HTN Plan: Pt not keen on having another cardiac cath Meds adjusted Cardiac cath cine reviewed. Will discuss w/ Dr Vincent
--- NOTE | 2017-06-06 08:57 | CP.PCM.CON ---
History of Present Illness - History of Present Illness History of Present Illness: Reason for consult: chest pain w/ +trops HPI: 72 y/o w/fem w/ hx of CAD s/ plasty, COPD came in c/o recurrent chest pain associated w/ sob. LABS: + trops x 2 Review of Systems - Cardiovascular Cardiovascular: Chest Pain - Respiratory Respiratory: Dyspnea, Dyspnea on Exertion - Gastrointestinal Gastrointestinal: absent: Nausea, Vomiting - Musculoskeletal Musculoskeletal: Abnormal Gait - Neurological Neurological: absent: Frequent Falls, Syncope Past Patient History - Infectious Disease Hx of Infectious Diseases: None - Tetanus Immunizations Tetanus Immunization: Unknown - Past Medical History & Family History Past Medical History?: Yes - Past Social History Smoking Status: Former Smoker - CARDIAC Hx Cardiac Disorders: Yes Hx Congestive Heart Failure: Yes Hx Hypercholesterolemia: Yes Hx Hypertension: Yes Hx Peripheral Edema: Yes - PULMONARY Hx Respiratory Disorders: Yes Hx Bronchitis: Yes Hx Chronic Obstructive Pulmonary Disease (COPD): Yes Hx Emphysema: Yes - NEUROLOGICAL Hx Neurological Disorder: Yes Hx Dementia: Yes Hx Transient Ischemic Attacks (TIA): Yes - HEENT Hx HEENT Problems: Yes (left eye blurry) 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) Other/Comment: [place] - RENAL Hx Chronic Kidney Disease: Yes - ENDOCRINE/METABOLIC Hx Endocrine Disorders: No - HEMATOLOGICAL/ONCOLOGICAL Hx Blood Disorders: Yes Hx Anemia: Yes Hx Cancer: Yes (Left breast 4years ago) - INTEGUMENTARY Hx Dermatological Problems: No - MUSCULOSKELETAL/RHEUMATOLOGICAL Hx Musculoskeletal Disorders: No Hx Falls: No - GASTROINTESTINAL Hx Gastrointestinal Disorders: Yes Hx Gastroesophageal Reflux: Yes - GENITOURINARY/GYNECOLOGICAL Hx Genitourinary Disorders: Yes Hx Bladder Cancer: Yes - PSYCHIATRIC Hx Psychophysiologic Disorder: Yes Hx Schizophrenia: Yes Hx Substance Use: No - SURGICAL HISTORY Hx Surgeries: Yes Hx Coronary Stent: Yes (07/26/12) Hx Joint Replacement: Yes (right hip replacement 11/06/13) Hx Orthopedic Surgery: Yes - ANESTHESIA Hx Anesthesia: Yes Hx Anesthesia Reactions: No Hx Malignant Hyperthermia: No Has any member of the family had a problem w/ anesthesia?: No Meds Allergies/Adverse Reactions: Allergies Allergy/AdvReac Type Severity Reaction Status Date / Time iodine Allergy Severe ANAPHYLAXIS Verified 06/04/17 16:34 iv dye Allergy Severe ANAPHYLAXIS Uncoded 06/04/17 16:34 - Medications Medications: Current Medications Amlodipine Besylate (Norvasc) 10 mg PO DAILY [facility] Last Admin: 06/05/17 10:55 Dose: 10 mg Aspirin (Ecotrin) 81 mg PO DAILY [facility] Last Admin: 06/05/17 10:55 Dose: 81 mg Azithromycin (Zithromax) 500 mg PO DAILY [facility] Clonidine HCl (Catapres) 0.1 mg PO Q8H [facility] Last Admin: 06/06/17 05:45 Dose: 0.1 mg Enoxaparin Sodium (Lovenox) 40 mg SC DAILY [facility] Last Admin: 06/05/17 10:56 Dose: 40 mg Furosemide (Lasix) 40 mg IVP DAILY [facility] Last Admin: 06/05/17 10:55 Dose: 40 mg Ceftriaxone Sodium 1 gm/ (Sodium Chloride) 100 mls @ 100 mls/hr IVPB DAILY@ 1100 [facility] Last Admin: 06/05/17 12:00 Dose: Not Given Levalbuterol HCl (Xopenex) 0.31 mg INH RQ8 PRN PRN Reason: Cough Levalbuterol HCl (Xopenex) 0.63 mg INH RQ8 PRN PRN Reason: Cough Morphine Sulfate (Morphine) 2 mg IVP Q4 PRN PRN Reason: Pain, moderate (4-7) Last Admin: 06/05/17 12:11 Dose: 2 mg Nitroglycerin (Nitrostat Sl Tab) 0.4 mg SL Q5M PRN PRN Reason: Pain, moderate (4-7) Pneumococcal Polyvalent Vaccine (Pneumovax 23 Vaccine) 0.5 ml IM .ONCE ONE Stop: 06/06/17 10:01 Tramadol HCl (Ultram) 50 mg PO Q8H [facility] Last Admin: 06/06/17 05:44 Dose: 50 mg Physical Exam - Constitutional Appears: No Acute Distress - Head Exam Head Exam: NORMAL INSPECTION - Eye Exam Eye Exam: absent: Scleral icterus - ENT Exam ENT Exam: Mucous Membranes Moist - Neck Exam Neck exam: Positive for: Full Rom. Negative for: Lymphadenopathy - Respiratory Exam Respiratory Exam: Decreased Breath Sounds. absent: Rales, Rhonchi, Wheezes - Cardiovascular Exam Cardiovascular Exam: REGULAR RHYTHM - GI/Abdominal Exam GI & Abdominal Exam: Rigid, Soft. absent: Tenderness - Extremities Exam Extremities exam: Positive for: pedal edema. Negative for: calf tenderness, tenderness - Neurological Exam Neurological exam: Alert, Oriented x3 Results - Vital Signs Recent Vital Signs: Last Vital Signs Temp 97.8 F 06/06/17 07:20 Pulse 55 L 06/06/17 07:20 Resp 17 06/06/17 07:20 BP 155/71 H 06/06/17 07:20 Pulse Ox 100 06/06/17 07:20 - Labs Result Diagrams: 06/06/17 07:24 06/06/17 07:24 Labs: Laboratory Results - last 24 hr 06/05/17 06/06/17 06/06/17 19:50 07:24 07:24 WBC 7.4 RBC 3.90 Hgb 8.5 L Hct 26.8 L MCV 68.8 L MCH 21.8 L MCHC 31.6 L RDW 17.0 H Plt Count 242 MPV 9.4 Sodium 144 Potassium 4.4 Chloride 109 H Carbon Dioxide 23 Anion Gap 16 BUN 24 H Creatinine 1.1 Est GFR ( Amer) 59 Est GFR (Non-Af Amer) 49 Random Glucose 99 Calcium 8.9 Total Bilirubin 0.4 AST 12 L ALT 19 Alkaline Phosphatase 60 Troponin I 0.1620 H* Total Protein 5.6 L Albumin 3.1 L Globulin 2.4 Albumin/Globulin Ratio 1.3 Assessment & Plan - Assessment and Plan (Free Text) Assessment: ACS CAD COPD HTN Plan: Cont meds Refusing cardiac cath Medical therapy for now
--- NOTE | 2017-06-06 09:33 | PN ---
DATE: 06/06/2017 SUBJECTIVE: I saw her resting comfortably this morning in bed. She is awake. She has no chest pain or shortness of breath. She is feeling better. Awaiting physical therapy, data designer, and rn orthopaedic. She is here with positive troponin, probably NSTEMI, also pneumonia, and she is getting weekly physical therapy. PHYSICAL EXAMINATION VITAL SIGNS: 98.2 temperature, 64 pulse, 152/74 blood pressure, 20 respiratory rate, and 100% O2 sat on room air. HEENT: Head is atraumatic and normocephalic. Throat is moist. NECK: Supple. HEART: Regular rate. LUNGS: Decreased breath sound, but clear. ABDOMEN: Soft. EXTREMITIES: No edema. No more chest pain, no shortness of breath. MEDICATIONS: She is currently on azithromycin, Catapres, Rocephin, Ecotrin, Lasix, Lovenox, morphine, nitroglycerine, Norvasc, Ultram, and Xopenex. LABORATORY DATA: She has a 144 sodium, potassium is 3.8, BUN is 23, creatinine 1.2, GFR is 44, sugar is 99, calcium 9. Total bilirubin 0.2, AST is 12, and ALT is 17, alkaline phosphatase 64. Troponins are 0.28, 0.26, and finally came down to 0.16. The first troponin which they got in the ER was 0.02 and then it popped up. Total protein is 5.4. Lipase is 30. INR was 1.1. Waiting for cardio, pulmonary, and physical therapy, and then we will have a direction and make her an inpatient for positive troponin. ASSESSMENT AND PLAN: Continue with aggressive treatment and care. Get her out of bed to chair. She is here for [id number] myocardial infarction, pneumonia, weakness. John Brown DO
[2017-06-06] MEDS: Enoxaparin 40 mg Syringe SC SCH (09:37)
[2017-06-06] MEDS: diltiaZEM 120 mg/24 Hours CD Cap PO SCH (09:37)
[2017-06-06] MEDS: Metoprolol Succinate 25 mg XL Tab PO SCH (09:38)
[2017-06-06] MEDS ORDERED: Pneumococcal 23-Valent Vaccine IM ONE (10:00)
[2017-06-06] MEDS: Ranolazine 500 mg Extended Release Tablets PO SCH ×2 (10:31→17:17)
--- NOTE | 2017-06-06 13:07 | CP.PCM.CON ---
History of Present Illness - History of Present Illness History of Present Illness: palliative consult Requested by Stephanie TIDWELL Reason : Goals of care, code status discussion patient is 72 yo lady admitted from home, [facility], where she experienced chest pain and shortness of breath. It has happened in the past many times and patient was treated for. The EMS brought her to the hospital where Heart attack was confirmed and cardiology consult called. Cardiac catheterization as suggested but patient declined it. The CXR was significant for pleural effusion and atelectasis. Rocephin IV on board. PMH: anemia with blood transfusions in the past, breast CA 4 years ago, in remission, CAD, CHF, COPD, right hip Fx, osteoporosis, schizophreniaHTN and DM Soc. Hx: , lives alone at [facility], Von ( nephew) service advocate contact Tim. hx: Review of Systems - Constitutional Constitutional: absent: As Per HPI, Anorexia, Chills, Daytime Sleepiness, Excessive Sweating, Fatigue, Fever, Frequent Falls, Headache, Increased Appetite , Lethargy, Malaise, Night Sweats, Snoring, Sleep Apnea, Weight Gain, Weight Loss, Weakness, Other - EENT Eyes: absent: As Per HPI, Blind Spots, Blurred Vision, Change in Vision, Decreased Night Vision, Diplopia, Discharge, Dry Eye, Exophthalmos, Floaters, Irritation, Itchy Eyes, Loss of Peripheral Vision, Pain, Photophobia, Requires Corrective Lenses, Sees Flashes, Spots in Vision, Tunnel Vision, Other Visual Disturbances, Loss of Vision, Other Ears: Abnormal Hearing Nose/Mouth/Throat: absent: As Per HPI, Epistaxis, Nasal Congestion, Nasal Discharge, Nasal Obstruction, Nasal Trauma, Nose Pain, Post Nasal Drip, Sinus Pain, Sinus Pressure, Bleeding Gums, Change in Voice, Dental Pain, Dry Mouth, Dysphagia, Halitosis, Hoarsness, Lip Swelling, Mouth Lesions, Mouth Pain, Odynophagia, Sore Throat, Throat Swelling, Tongue Swelling, Facial Pain, Neck Pain, Neck Mass, Other - Breasts Breasts: absent: As Per HPI, Change in Shape, Mass, Pain, Nipple Discharge, Nipple Inversion, Skin Changes, Swelling, Other - Cardiovascular Cardiovascular: Chest Pain, Chest Pain with Activity, Dyspnea - Respiratory Respiratory: Dyspnea on Exertion - Genitourinary Genitourinary: absent: As Per HPI, Change in Urinary Stream, Difficulty Urinating, Dysuria, Flank Pain, Hematuria, Pyuria, Nocturia, Urinary Incontinence, Urinary Frequency, Urinary Hesitance, Urinary Urgency, Voiding Freq/Small Amts, Freq UTI, Hx Renal/Bladder Calculi, Hx /Renal Surgery, Bladder Distension, Other - Reproductive: Female Reproductive:Female: Post Menopausal - Menstruation Menstruation: Post Menopausal - Musculoskeletal Musculoskeletal: Abnormal Gait, Back Pain - Integumentary Integumentary: absent: As Per HPI, Acne, Alopecia, Bleeding Lesions, Change in Hair, Change in Nails, Change in Pigmentation, Changing Lesions, Dry Skin, Erythema, Furuncle, Hirsutism, Lesions, New Lesions, Non-Healing Lesions, Photosensitivity, Pruritus, Rash, Skin Pain, Skin Ulcer, Sores, Striae, Swelling , Unusual Bruising, Wounds, Jaundice, Other - Neurological Neurological: absent: As Per HPI, Abnormal Gait, Abnormal Hearing, Abnormal Movements, Abnormal Speech, Behavioral Changes, Burning Sensations, Confusion, Convulsions, Disequilibrium, Dizziness, Numbness, Focal Weakness, Frequent Falls , Headaches, Lack of Coordination, Loss of Vision, Memory Loss, Paresthesias, Radicular Pain, Restless Legs, Sensory Deficit, Syncope, Tingling, Tremor, Vertigo, Weakness, Other Visual Disturbances, Other - Psychiatric Psychiatric: Mood Swings - Endocrine Endocrine: absent: As Per HPI, Change in Body Appearance, Change in Libido, Cold Intolorance, Deepening of Voice, Excessive Sweating, Fatigue, Flushing, Heat Intolorance, Increase in Ring/Shoe/Hat Size, Palpitations, Polydipsia, Polyphagia, Polyuria, Other - Hematologic/Lymphatic Hematologic: absent: As Per HPI, Easy Bleeding, Easy Bruising, Lymphadenopathy, Other Past Patient History - Infectious Disease Hx of Infectious Diseases: None - Tetanus Immunizations Tetanus Immunization: Unknown - Past Medical History & Family History Past Medical History?: Yes - Past Social History Smoking Status: Former Smoker - CARDIAC Hx Cardiac Disorders: Yes Hx Congestive Heart Failure: Yes Hx Hypercholesterolemia: Yes Hx Hypertension: Yes - PULMONARY Hx Chronic Obstructive Pulmonary Disease (COPD): Yes - NEUROLOGICAL Hx Neurological Disorder: Yes Hx Dementia: Yes Hx Transient Ischemic Attacks (TIA): Yes - HEENT Hx HEENT Problems: Yes (left eye blurry) 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) Other/Comment: [place] - RENAL Hx Chronic Kidney Disease: Yes - ENDOCRINE/METABOLIC Hx Endocrine Disorders: No - HEMATOLOGICAL/ONCOLOGICAL Hx Blood Disorders: Yes Hx Anemia: Yes Hx Cancer: Yes (Left breast 4years ago) - INTEGUMENTARY Hx Dermatological Problems: No - MUSCULOSKELETAL/RHEUMATOLOGICAL Hx Musculoskeletal Disorders: No Hx Falls: No - GASTROINTESTINAL Hx Gastrointestinal Disorders: Yes Hx Gastroesophageal Reflux: Yes - GENITOURINARY/GYNECOLOGICAL Hx Genitourinary Disorders: Yes Hx Bladder Cancer: Yes - PSYCHIATRIC Hx Psychophysiologic Disorder: Yes Hx Schizophrenia: Yes Hx Substance Use: No - SURGICAL HISTORY Hx Surgeries: Yes Hx Coronary Stent: Yes (07/26/12) Hx Joint Replacement: Yes (right hip replacement 11/06/13) Hx Orthopedic Surgery: Yes - ANESTHESIA Hx Anesthesia: Yes Hx Anesthesia Reactions: No Hx Malignant Hyperthermia: No Has any member of the family had a problem w/ anesthesia?: No Meds Allergies/Adverse Reactions: Allergies Allergy/AdvReac Type Severity Reaction Status Date / Time iodine Allergy Severe ANAPHYLAXIS Verified 06/04/17 16:34 iv dye Allergy Severe ANAPHYLAXIS Uncoded 06/04/17 16:34 - Medications Medications: Current Medications Aspirin (Ecotrin) 81 mg PO DAILY [facility] Last Admin: 06/06/17 09:37 Dose: 81 mg Azithromycin (Zithromax) 500 mg PO DAILY [facility] Last Admin: 06/06/17 10:31 Dose: 500 mg Clonidine HCl (Catapres) 0.1 mg PO Q8H [facility] Last Admin: 06/06/17 05:45 Dose: 0.1 mg Diltiazem HCl (Cardizem Cd) 120 mg PO DAILY [facility] Last Admin: 06/06/17 09:37 Dose: 120 mg Enoxaparin Sodium (Lovenox) 40 mg SC DAILY [facility] Last Admin: 06/06/17 09:37 Dose: 40 mg Furosemide (Lasix) 40 mg IVP DAILY [facility] Last Admin: 06/06/17 09:41 Dose: Not Given Ceftriaxone Sodium 1 gm/ (Sodium Chloride) 100 mls @ 100 mls/hr IVPB DAILY@ 1100 [facility] Last Admin: 06/06/17 10:32 Dose: Not Given Metoprolol Succinate (Toprol Xl) 25 mg PO DAILY [facility] Last Admin: 06/06/17 09:38 Dose: 25 mg Morphine Sulfate (Morphine) 2 mg IVP Q4 PRN PRN Reason: Pain, moderate (4-7) Last Admin: 06/05/17 12:11 Dose: 2 mg Nitroglycerin (Nitrostat Sl Tab) 0.4 mg SL Q5M PRN PRN Reason: Pain, moderate (4-7) Ranolazine (Ranexa) 500 mg PO BID [facility] Last Admin: 06/06/17 10:31 Dose: 500 mg Tramadol HCl (Ultram) 50 mg PO Q8H [facility] Last Admin: 06/06/17 05:44 Dose: 50 mg Physical Exam - Constitutional Appears: No Acute Distress, Chronically Ill - Head Exam Head Exam: ATRAUMATIC, NORMAL INSPECTION, NORMOCEPHALIC - Eye Exam Eye Exam: EOMI, Normal appearance, PERRL Pupil Exam: NORMAL ACCOMODATION, PERRL - ENT Exam ENT Exam: Mucous Membranes Moist, Normal Exam - Neck Exam Neck exam: Positive for: Normal Inspection - Respiratory Exam Respiratory Exam: Decreased Breath Sounds, NORMAL BREATHING PATTERN - Cardiovascular Exam Cardiovascular Exam: Bradycardia, REGULAR RHYTHM - GI/Abdominal Exam GI & Abdominal Exam: Normal Bowel Sounds, Soft - Rectal Exam Rectal Exam: Deferred - Extremities Exam Extremities exam: Positive for: normal inspection - Back Exam Back exam: NORMAL INSPECTION - Neurological Exam Neurological exam: Alert, Oriented x3, Reflexes Normal - Psychiatric Exam Psychiatric exam: Normal Affect, Normal Mood - Skin Skin Exam: Dry, Intact, Normal Color, Warm Results - Vital Signs Recent Vital Signs: Last Vital Signs Temp 97.8 F 06/06/17 07:20 Pulse 55 L 06/06/17 07:20 Resp 17 06/06/17 07:20 BP 155/71 H 06/06/17 09:41 Pulse Ox 100 06/06/17 07:20 - Labs Result Diagrams: 06/06/17 07:24 06/06/17 07:24 Labs: Laboratory Results - last 24 hr 06/05/17 06/06/17 06/06/17 19:50 07:24 07:24 WBC 7.4 RBC 3.90 Hgb 8.5 L Hct 26.8 L MCV 68.8 L MCH 21.8 L MCHC 31.6 L RDW 17.0 H Plt Count 242 MPV 9.4 Sodium 144 Potassium 4.4 Chloride 109 H Carbon Dioxide 23 Anion Gap 16 BUN 24 H Creatinine 1.1 Est GFR ( Amer) 59 Est GFR (Non-Af Amer) 49 Random Glucose 99 Calcium 8.9 Total Bilirubin 0.4 AST 12 L ALT 19 Alkaline Phosphatase 60 Troponin I 0.1620 H* Total Protein 5.6 L Albumin 3.1 L Globulin 2.4 Albumin/Globulin Ratio 1.3 Assessment & Plan - Assessment and Plan (Free Text) Assessment: palliative consult Code status prior to consult was Full Code, no advance directive on chart, PPS 40% I reviewed medical records, all diagnostic studies, examine and interviewed patient in the bed. Patient is alert, oriented X 3, with speech that is clear, hard of hearing and ambulates using walker with PT atthe side. Patient was at the nursing station looking agitated and loudly requesting the ' Lung Doctor' to see her. After short reassurance that Doctor was called patient returned to her room where we discussed goals of care. Patient is hard of hearing and reports vision changes to her right eye. Breath sounds are diminished B/L, patient gets SOB upon ambulation and admits to it. Patient noticed at home after walking few steps in her apartment she would get SOB and could not speak in full sentences. Abdomen is soft, denies constipation and reports good appetite. Ambulates with assistance of walker. All organ systems were reviewed and are [id number] except mentioned above. Patient was pleasant during the interview process and admitted missing her pets and that was why she wanted to go home.She insisted on being discharged home today and being treated conservatively by the PO meds. I promissed her I was to work closely with Doctor Brown and see what would be the best care for her . Further I elicited patient's understanding about her SOB at home and suggested more information on cardiac cath and its benefices for the patient. I also suggested that due to repeated episodes of SOB and chest pain at home she may have to be coming back to the hospital for the same reason, unless something is being done about it. patient admitted being afraid of procedure, but still waning to stay home instead of coming to the hospital every so often. Patient than changed her mind about cardiac cath asking for it to be done . I shared most of my discussion with Doctor Brown over the phone, who was very supportive of patient's wishes. I laso shared this with Juany MCCORMICK who was to make doctor Tejada aware of patient's changing her mind regarding the procedure. Patient claimed being very independent, able to manage her ADLs with minimal assistance from her female friend. I suggested Code status discussion, as patient had multiple chest pains and IL in the past and that it would be beneficial for her if she makes her end of life care ,wishes, known. Patient was very clear, almost as if she has discussed it numerous times in the past, and now she is annoyed by the same question. Patient stated that she would want to be treated conservatively with out use of aggressive measures to support her life, if meaningful recovery was not expected. I assisted her with completing the POLST and she chose DNR/DNI. This was shared with nursing staff. Impression * Patient is with complex medical Hx, in no acute distress * Patient depends on o2 supplement * SOB on exertion * Unsteady gait * Separation anxiety ( misses her pets) * Needs a lot of support and reassurance during decision making process * Mood swings Suggestion * Reconsider cardiac cath procedure as patient decided to have it done * Maintain supportive and trusting attitude when caring for this patient * promote safety * O2 via NC * DNR/DNI I will fallow up with this patient until discharge to support her. Thank you very much for consulting Palliative Care.
--- NOTE | 2017-06-06 17:22 | CP.PCM.CON ---
History of Present Illness - History of Present Illness History of Present Illness: called to see for dyspnea on exertion, pt. however wishes to go home and is on spiriva,advair which she uses prn asked pt to use inhalers daily TNI elevated, for probable cath refused to come as outpt to office for pft would check probnp, echo continue advair spiriva cxr shows interstitial changes which may be related to copd or fluid overload Review of Systems - Cardiovascular Cardiovascular: Dyspnea on Exertion - Respiratory Respiratory: Dyspnea on Exertion Past Patient History - Infectious Disease Hx of Infectious Diseases: None - Tetanus Immunizations Tetanus Immunization: Unknown - Past Medical History & Family History Past Medical History?: Yes - Past Social History Smoking Status: Former Smoker - CARDIAC Hx Cardiac Disorders: Yes Hx Congestive Heart Failure: Yes Hx Hypercholesterolemia: Yes Hx Hypertension: Yes - PULMONARY Hx Chronic Obstructive Pulmonary Disease (COPD): Yes - NEUROLOGICAL Hx Neurological Disorder: Yes Hx Dementia: Yes Hx Transient Ischemic Attacks (TIA): Yes - HEENT Hx HEENT Problems: Yes (left eye blurry) 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) Other/Comment: [place] - RENAL Hx Chronic Kidney Disease: Yes - ENDOCRINE/METABOLIC Hx Endocrine Disorders: No - HEMATOLOGICAL/ONCOLOGICAL Hx Blood Disorders: Yes Hx Anemia: Yes Hx Cancer: Yes (Left breast 4years ago) - INTEGUMENTARY Hx Dermatological Problems: No - MUSCULOSKELETAL/RHEUMATOLOGICAL Hx Musculoskeletal Disorders: No Hx Falls: No - GASTROINTESTINAL Hx Gastrointestinal Disorders: Yes Hx Gastroesophageal Reflux: Yes - GENITOURINARY/GYNECOLOGICAL Hx Genitourinary Disorders: Yes Hx Bladder Cancer: Yes - PSYCHIATRIC Hx Psychophysiologic Disorder: Yes Hx Schizophrenia: Yes Hx Substance Use: No - SURGICAL HISTORY Hx Surgeries: Yes Hx Coronary Stent: Yes (07/26/12) Hx Joint Replacement: Yes (right hip replacement 11/06/13) Hx Orthopedic Surgery: Yes - ANESTHESIA Hx Anesthesia: Yes Hx Anesthesia Reactions: No Hx Malignant Hyperthermia: No Has any member of the family had a problem w/ anesthesia?: No Meds Allergies/Adverse Reactions: Allergies Allergy/AdvReac Type Severity Reaction Status Date / Time iodine Allergy Severe ANAPHYLAXIS Verified 06/04/17 16:34 iv dye Allergy Severe ANAPHYLAXIS Uncoded 06/04/17 16:34 - Medications Medications: Current Medications Aspirin (Ecotrin) 81 mg PO DAILY [facility] Last Admin: 06/06/17 09:37 Dose: 81 mg Azithromycin (Zithromax) 500 mg PO DAILY [facility] Last Admin: 06/06/17 10:31 Dose: 500 mg Clonidine HCl (Catapres) 0.1 mg PO Q8H [facility] Last Admin: 06/06/17 13:10 Dose: 0.1 mg Diltiazem HCl (Cardizem Cd) 120 mg PO DAILY [facility] Last Admin: 06/06/17 09:37 Dose: 120 mg Enoxaparin Sodium (Lovenox) 40 mg SC DAILY [facility] Last Admin: 06/06/17 09:37 Dose: 40 mg Furosemide (Lasix) 40 mg IVP DAILY [facility] Last Admin: 06/06/17 09:41 Dose: Not Given Ceftriaxone Sodium 1 gm/ (Sodium Chloride) 100 mls @ 100 mls/hr IVPB DAILY@ 1100 [facility] Last Admin: 06/06/17 10:32 Dose: Not Given Metoprolol Succinate (Toprol Xl) 25 mg PO DAILY [facility] Last Admin: 06/06/17 09:38 Dose: 25 mg Morphine Sulfate (Morphine) 2 mg IVP Q4 PRN PRN Reason: Pain, moderate (4-7) Last Admin: 06/06/17 13:36 Dose: 2 mg Nitroglycerin (Nitrostat Sl Tab) 0.4 mg SL Q5M PRN PRN Reason: Pain, moderate (4-7) Ranolazine (Ranexa) 500 mg PO BID [facility] Last Admin: 06/06/17 10:31 Dose: 500 mg Tramadol HCl (Ultram) 50 mg PO Q8H [facility] Last Admin: 06/06/17 05:44 Dose: 50 mg Physical Exam - Constitutional Appears: No Acute Distress, Chronically Ill - Head Exam Head Exam: ATRAUMATIC, NORMOCEPHALIC - Eye Exam Eye Exam: Normal appearance - ENT Exam ENT Exam: Mucous Membranes Moist - Neck Exam Neck exam: Positive for: Normal Inspection - Respiratory Exam Respiratory Exam: Decreased Breath Sounds - Cardiovascular Exam Cardiovascular Exam: +S1, +S2 - GI/Abdominal Exam GI & Abdominal Exam: Normal Bowel Sounds - Rectal Exam Rectal Exam: Deferred - Extremities Exam Extremities exam: Positive for: normal inspection - Neurological Exam Neurological exam: Alert - Psychiatric Exam Psychiatric exam: Agitated, Anxious - Skin Skin Exam: Intact Results - Vital Signs Recent Vital Signs: Last Vital Signs Temp 97.8 F 06/06/17 07:20 Pulse 55 L 06/06/17 07:20 Resp 17 06/06/17 07:20 BP 155/71 H 06/06/17 09:41 Pulse Ox 100 06/06/17 07:20 - Labs Result Diagrams: 06/06/17 07:24 06/06/17 07:24 Labs: Laboratory Results - last 24 hr 06/05/17 06/06/17 06/06/17 19:50 07:24 07:24 WBC 7.4 RBC 3.90 Hgb 8.5 L Hct 26.8 L MCV 68.8 L MCH 21.8 L MCHC 31.6 L RDW 17.0 H Plt Count 242 MPV 9.4 Sodium 144 Potassium 4.4 Chloride 109 H Carbon Dioxide 23 Anion Gap 16 BUN 24 H Creatinine 1.1 Est GFR ( Amer) 59 Est GFR (Non-Af Amer) 49 Random Glucose 99 Calcium 8.9 Total Bilirubin 0.4 AST 12 L ALT 19 Alkaline Phosphatase 60 Troponin I 0.1620 H* Total Protein 5.6 L Albumin 3.1 L Globulin 2.4 Albumin/Globulin Ratio 1.3 Assessment & Plan (1) ACS (acute coronary syndrome) Status: Acute (2) Chest pain Status: Acute (3) COPD (chronic obstructive pulmonary disease) Status: Acute (4) COPD (chronic obstructive pulmonary disease) Status: Chronic (5) Dyspnea on exertion Status: Acute
[2017-06-06] MEDS: Fluticasone-Salmeterol 250-50mcg Diskus INH SCH (20:54)
[2017-06-07 07:01] LABS: HEMATOCRIT 28.1 % (34.0-47.0); MEAN CELL VOLUME 69.8 fL (81.0-99.0); MEAN CORPUSCULAR HEMOGLOBIN 21.7 pg (27.0-31.0); MEAN CORPUSCULAR HGB CONC 31.1 g/dL (33.0-37.0); MEAN PLATELET VOLUME 9.5 fL (7.2-11.7); WHITE BLOOD COUNT 8.3 K/uL (4.8-10.8)
[2017-06-07] MEDS: Fluticasone-Salmeterol 250-50mcg Diskus INH SCH ×2 (07:20→19:21)
[2017-06-07 07:49] LABS: POTASSIUM 4.5 mmol/L (3.6-5.2)
[2017-06-07 07:51] LABS: ALB/GLOB RATIO 1.3 (1.0-2.1); BILIRUBIN,TOTAL 0.4 mg/dL (0.2-1.3); TOTAL PROTEIN 5.8 g/dL (6.3-8.3)
--- NOTE | 2017-06-07 08:59 | PN ---
DATE: SUBJECTIVE: She is resting comfortably in bed. She is supposed to have a cardiac cath with Dr. Tejada I believe tomorrow, for 3 positive troponins. She is comfortable in bed. No chest pain and no shortness of breath. No abdominal pain at this time. She is eating okay. She has Advair, Cardizem, Catapres, ceftriaxone, Ecotrin, Lasix, Lovenox, morphine, Nitrostat, Ranexa, Spiriva, Toprol, Ultram, and Zithromax p.o. for pneumonia. PHYSICAL EXAMINATION: VITAL SIGNS: She has a 98 temperature, 71 pulse, 143/72 blood pressure, 20 respiratory rate, 97% O2 saturation on nasal cannula. HEENT: Head is atraumatic, normocephalic. HEART: Regular rate. LUNGS: Decreased breath sounds, but clear. ABDOMEN: Soft. EXTREMITIES: No edema. LABORATORY DATA: Her blood test, she has an 8.3 white count, 8.8 hemoglobin, 28.1 hematocrit, with 204 platelets. Sodium 144, potassium 4.4, BUN 24, creatinine 1.1. GFR is 49. Sugar is 99. Calcium is 8.9, total bilirubin is 24. AST is 12, ALT is 19, alkaline phosphatase is 60. Last troponin was 0.16, still elevated, but coming down. Total protein is 5.6. She is being seen by Dr. Tejada, Dr. Weaver, and Dr. Nelson, Pulmonology. She is supposed to get in physical therapy also. Obviously, go for cardiac cath tomorrow. PLAN: Cardiac cath tomorrow unless she AMAs. She is here for MN and pneumonia. We will check her labs tomorrow. Discussed at length. Answered many questions. Hoping she will be here and get the cath tomorrow. John Brown DO
[2017-06-07] MEDS: Tiotropium 18 mcg Cap For Inhalation INH SCH (09:20)
[2017-06-07] MEDS: Ranolazine 500 mg Extended Release Tablets PO SCH ×2 (09:59→18:20)
[2017-06-07] MEDS: Metoprolol Succinate 25 mg XL Tab PO SCH (10:00)
[2017-06-07] MEDS: diltiaZEM 120 mg/24 Hours CD Cap PO SCH (10:01)
[2017-06-07] MEDS: Enoxaparin 40 mg Syringe SC SCH (10:04)
--- NOTE | 2017-06-07 17:04 | CP.PCM.PN ---
Subjective - Date & Time of Evaluation Date of Evaluation: 06/07/17 Time of Evaluation: 17:00 - Subjective Subjective: c/o athritic pains all over breathing is ok Objective - Vital Signs/Intake and Output Vital Signs (last 24 hours): Temp Pulse Resp BP Pulse Ox 98.4 F 58 L 18 145/65 99 06/07/17 15:38 06/07/17 15:38 06/07/17 15:38 06/07/17 15:38 06/07/17 15:38 Intake and Output: 06/07/17 06/07/17 06:59 18:59 Intake Total 60 Balance 60 - Medications Medications: Current Medications Aspirin (Ecotrin) 81 mg PO DAILY [facility] Last Admin: 06/07/17 09:59 Dose: 81 mg Azithromycin (Zithromax) 500 mg PO DAILY [facility] Last Admin: 06/07/17 09:59 Dose: 500 mg Clonidine HCl (Catapres) 0.1 mg PO Q8H [facility] Last Admin: 06/07/17 14:26 Dose: 0.1 mg Diltiazem HCl (Cardizem Cd) 120 mg PO DAILY [facility] Last Admin: 06/07/17 10:01 Dose: 120 mg Enoxaparin Sodium (Lovenox) 40 mg SC DAILY [facility] Last Admin: 06/07/17 10:04 Dose: 40 mg Furosemide (Lasix) 40 mg IVP DAILY [facility] Last Admin: 06/07/17 10:01 Dose: 40 mg Ceftriaxone Sodium 1 gm/ (Sodium Chloride) 100 mls @ 100 mls/hr IVPB DAILY@ 1100 [facility] Last Admin: 06/07/17 10:15 Dose: Not Given Metoprolol Succinate (Toprol Xl) 25 mg PO DAILY [facility] Last Admin: 06/07/17 10:00 Dose: 25 mg Morphine Sulfate (Morphine) 2 mg IVP Q4 PRN PRN Reason: Pain, moderate (4-7) Last Admin: 06/07/17 15:25 Dose: 2 mg Nitroglycerin (Nitrostat Sl Tab) 0.4 mg SL Q5M PRN PRN Reason: Pain, moderate (4-7) Ranolazine (Ranexa) 500 mg PO BID [facility] Last Admin: 06/07/17 09:59 Dose: 500 mg Fluticasone/Salmeterol (Advair Diskus 250/50) 1 puff INH RQ12 [facility] Last Admin: 06/07/17 07:20 Dose: 1 puff Tiotropium [place] (Spiriva) 18 mcg INH RQ24 [facility] Last Admin: 06/07/17 09:20 Dose: Not Given Tramadol HCl (Ultram) 50 mg PO Q8H [facility] Last Admin: 06/07/17 14:26 Dose: 50 mg - Labs Labs: 06/07/17 06:54 06/07/17 06:54 PT 12.4 SECONDS (9.7-12.2) H 06/04/17 17:38 INR 1.1 06/04/17 17:38 APTT 32 SECONDS (21-34) 06/04/17 17:38 - Constitutional Appears: No Acute Distress - Head Exam Head Exam: ATRAUMATIC, NORMOCEPHALIC - Eye Exam Eye Exam: Normal appearance - ENT Exam ENT Exam: Mucous Membranes Moist - Respiratory Exam Respiratory Exam: Decreased Breath Sounds - Cardiovascular Exam Cardiovascular Exam: +S1, +S2 - GI/Abdominal Exam GI & Abdominal Exam: Normal Bowel Sounds - Rectal Exam Rectal Exam: Deferred - Neurological Exam Neurological Exam: Alert, Awake, Oriented x3 - Psychiatric Exam Psychiatric exam: Normal Affect, Normal Mood - Skin Skin Exam: Intact Assessment and Plan (1) ACS (acute coronary syndrome) Status: Acute (2) Chest pain Status: Acute (3) COPD (chronic obstructive pulmonary disease) Status: Acute (4) COPD (chronic obstructive pulmonary disease) Status: Chronic (5) Dyspnea on exertion Status: Acute
--- NOTE | 2017-06-08 00:36 | CARD ---
APPROVED REPORT EKG Measurement Heart [id number] <Conclusion> Sinus tachycardia with premature supraventricular complexes Minimal voltage criteria for LVH, may be normal variant ST & T wave abnormality, consider lateral ischemia Abnormal ECG
[2017-06-08] MEDS: Metoprolol Succinate 25 mg XL Tab PO SCH ×2 (06:36→11:28)
[2017-06-08 07:21] LABS: HEMATOCRIT 27.5 % (34.0-47.0); MEAN CORPUSCULAR HEMOGLOBIN 21.2 pg (27.0-31.0); MEAN CORPUSCULAR HGB CONC 30.7 g/dL (33.0-37.0); WHITE BLOOD COUNT 8.3 K/uL (4.8-10.8)
[2017-06-08 07:34] LABS: INR 1.1
[2017-06-08] MEDS ORDERED: DiphenhydrAMINE 50 mg/ml Inj ONE (07:47)
--- NOTE | 2017-06-08 07:57 | CP.PCM.PN ---
Subjective - Date & Time of Evaluation Date of Evaluation: 06/07/17 Time of Evaluation: 08:40 - Subjective Subjective: occassional SOB +trops Objective - Vital Signs/Intake and Output Vital Signs (last 24 hours): Temp Pulse Resp BP Pulse Ox 97 F L 84 20 152/84 H 97 06/08/17 06:35 06/08/17 06:35 06/08/17 06:35 06/08/17 06:35 06/07/17 23:05 Intake and Output: 06/08/17 06/08/17 06:59 18:59 Output Total 200 Balance -200 - Medications Medications: Current Medications Aspirin (Ecotrin) 81 mg PO DAILY [facility] Last Admin: 06/07/17 09:59 Dose: 81 mg Azithromycin (Zithromax) 500 mg PO DAILY [facility] Last Admin: 06/07/17 09:59 Dose: 500 mg Clonidine HCl (Catapres) 0.1 mg PO Q8H [facility] Last Admin: 06/08/17 06:35 Dose: 0.1 mg Diltiazem HCl (Cardizem Cd) 120 mg PO DAILY [facility] Last Admin: 06/07/17 10:01 Dose: 120 mg Enoxaparin Sodium (Lovenox) 40 mg SC DAILY [facility] Last Admin: 06/07/17 10:04 Dose: 40 mg Furosemide (Lasix) 40 mg IVP DAILY [facility] Last Admin: 06/07/17 10:01 Dose: 40 mg Ceftriaxone Sodium 1 gm/ (Sodium Chloride) 100 mls @ 100 mls/hr IVPB DAILY@ 1100 [facility] Last Admin: 06/07/17 10:15 Dose: Not Given Metoprolol Succinate (Toprol Xl) 25 mg PO DAILY [facility] Last Admin: 06/08/17 06:36 Dose: 25 mg Morphine Sulfate (Morphine) 2 mg IVP Q4 PRN PRN Reason: Pain, moderate (4-7) Last Admin: 06/07/17 19:51 Dose: 2 mg Nitroglycerin (Nitrostat Sl Tab) 0.4 mg SL Q5M PRN PRN Reason: Pain, moderate (4-7) Ranolazine (Ranexa) 500 mg PO BID [facility] Last Admin: 06/07/17 18:20 Dose: 500 mg Fluticasone/Salmeterol (Advair Diskus 250/50) 1 puff INH RQ12 [facility] Last Admin: 06/07/17 19:21 Dose: 1 puff Tiotropium [place] (Spiriva) 18 mcg INH RQ24 [facility] Last Admin: 06/07/17 09:20 Dose: Not Given Tramadol HCl (Ultram) 50 mg PO Q8H [facility] Last Admin: 06/08/17 06:35 Dose: 50 mg - Labs Labs: 06/08/17 07:16 06/07/17 06:54 PT 12.7 SECONDS (9.7-12.2) H 06/08/17 07:16 INR 1.1 06/08/17 07:16 APTT 28 SECONDS (21-34) 06/08/17 07:16 - Constitutional Appears: Non-toxic - Head Exam Head Exam: NORMAL INSPECTION - Eye Exam Eye Exam: absent: Scleral icterus - ENT Exam ENT Exam: Mucous Membranes Moist - Neck Exam Neck Exam: Full ROM. absent: Lymphadenopathy - Respiratory Exam Respiratory Exam: Decreased Breath Sounds - Cardiovascular Exam Cardiovascular Exam: REGULAR RHYTHM - Extremities Exam Extremities Exam: absent: Calf Tenderness, Pedal Edema Assessment and Plan - Assessment and Plan (Free Text) Assessment: ACS CAD COPD HTN Plan: Cath in am if patient change her mind Cont meds
[2017-06-08] MEDS ORDERED: Iodixanol 320 MG/ML 100 ML BOTTLE IV ONE (08:02)
[2017-06-08 08:14] LABS: ALB/GLOB RATIO 1.3 (1.0-2.1); BILIRUBIN,TOTAL 0.4 mg/dL (0.2-1.3); CALCIUM 8.7 mg/dl (8.6-10.4); TOTAL PROTEIN 5.7 g/dL (6.3-8.3)
[2017-06-08] MEDS ORDERED: Lidocaine 2% Inj (20ml) ONE (08:17)
[2017-06-08] MEDS ORDERED: Albuterol 0.083% Inhal Sol (2.5 mg/3 mL) UD ONE (08:23)
[2017-06-08] MEDS: Tiotropium 18 mcg Cap For Inhalation INH SCH (08:24)
[2017-06-08] MEDS: Fluticasone-Salmeterol 250-50mcg Diskus INH SCH ×2 (08:24→19:15)
--- NOTE | 2017-06-08 08:29 | CP.PCM.PN ---
Subjective - Date & Time of Evaluation Date of Evaluation: 06/08/17 Time of Evaluation: 08:25 - Subjective Subjective: Pt became very sob and agitated in the supervisor cytogenetic laboratory Cardiac cath cancelled until pulmonary status is more stable Objective - Vital Signs/Intake and Output Vital Signs (last 24 hours): Temp Pulse Resp BP Pulse Ox 97 F L 84 20 152/84 H 97 06/08/17 06:35 06/08/17 06:35 06/08/17 06:35 06/08/17 06:35 06/07/17 23:05 Intake and Output: 06/08/17 06/08/17 06:59 18:59 Intake Total 20 Output Total 200 Balance -180 - Medications Medications: Current Medications Aspirin (Ecotrin) 81 mg PO DAILY [facility] Last Admin: 06/07/17 09:59 Dose: 81 mg Azithromycin (Zithromax) 500 mg PO DAILY [facility] Last Admin: 06/07/17 09:59 Dose: 500 mg Clonidine HCl (Catapres) 0.1 mg PO Q8H [facility] Last Admin: 06/08/17 06:35 Dose: 0.1 mg Diltiazem HCl (Cardizem Cd) 120 mg PO DAILY [facility] Last Admin: 06/07/17 10:01 Dose: 120 mg Enoxaparin Sodium (Lovenox) 40 mg SC DAILY [facility] Last Admin: 06/07/17 10:04 Dose: 40 mg Furosemide (Lasix) 40 mg IVP DAILY [facility] Last Admin: 06/07/17 10:01 Dose: 40 mg Ceftriaxone Sodium 1 gm/ (Sodium Chloride) 100 mls @ 100 mls/hr IVPB DAILY@ 1100 [facility] Last Admin: 06/07/17 10:15 Dose: Not Given Metoprolol Succinate (Toprol Xl) 25 mg PO DAILY [facility] Last Admin: 06/08/17 06:36 Dose: 25 mg Morphine Sulfate (Morphine) 2 mg IVP Q4 PRN PRN Reason: Pain, moderate (4-7) Last Admin: 06/07/17 19:51 Dose: 2 mg Nitroglycerin (Nitrostat Sl Tab) 0.4 mg SL Q5M PRN PRN Reason: Pain, moderate (4-7) Ranolazine (Ranexa) 500 mg PO BID [facility] Last Admin: 06/07/17 18:20 Dose: 500 mg Fluticasone/Salmeterol (Advair Diskus 250/50) 1 puff INH RQ12 [facility] Last Admin: 06/08/17 08:24 Dose: Not Given Tiotropium [place] (Spiriva) 18 mcg INH RQ24 [facility] Last Admin: 06/08/17 08:24 Dose: Not Given Tramadol HCl (Ultram) 50 mg PO Q8H [facility] Last Admin: 06/08/17 06:35 Dose: 50 mg - Labs Labs: 06/08/17 07:16 06/08/17 07:16 PT 12.7 SECONDS (9.7-12.2) H 06/08/17 07:16 INR 1.1 06/08/17 07:16 APTT 28 SECONDS (21-34) 06/08/17 07:16 - Constitutional Appears: Agitated - Head Exam Head Exam: NORMAL INSPECTION - Eye Exam Eye Exam: absent: Scleral icterus - ENT Exam ENT Exam: Mucous Membranes Moist - Neck Exam Neck Exam: Full ROM. absent: Lymphadenopathy - Respiratory Exam Respiratory Exam: Decreased Breath Sounds - Cardiovascular Exam Cardiovascular Exam: REGULAR RHYTHM - GI/Abdominal Exam GI & Abdominal Exam: Soft - Neurological Exam Neurological Exam: Altered Assessment and Plan - Assessment and Plan (Free Text) Assessment: ACS COPD HTN Plan: Cath cancelled prior to access Duoneb given Lasix and hydralazine given for high BP Transferred to ICU
--- NOTE | 2017-06-08 09:05 | PN ---
SUBJECTIVE: She is resting comfortably in bed. She is going to have a cardiac cath this morning. She has had so many episodes of chest pain, hoping this will help her, she might need a stent. She is comfortable. No chest and no shortness of breath. She understands what is going on this morning. PHYSICAL EXAMINATION VITAL SIGNS: She has a 98.4 temperature, 65 pulse, 132/57 blood pressure, 20 of respiratory rate, 97% O2 saturation on nasal cannula. HEENT: Head is atraumatic, normocephalic. Throat is moist. NECK: Supple. HEART: Regular rate. LUNGS: Decreased breath sounds, but clear. ABDOMEN: Soft. EXTREMITIES: No edema. LABORATORY DATA: She has a 140 sodium, potassium 4.5, BUN 26, creatinine 1.2. GFR is 44. Sugar is 102. Calcium is 9, AST is 11, ALT is 16, alkaline phosphatase is 60, BNP was 8850, total protein is 5.8, white count is 8.3, hemoglobin 8.8, hematocrit 28.1 and platelets 204. She is supposed to go for cardiac cath this morning with Dr. Tejada. She is NPO. She understands the plan. MEDICATIONS: She is currently on Advair, Cardizem, Catapres, Rocephin, Ecotrin,Lasix IV, Lovenox, morphine, Nitrostat, Ranexa, Spiriva, Toprol, Ultram, and Zithromax p.o. ASSESSMENT AND PLAN: Hopefully over the next 24 hours we are going to be discharging her home, depending or not she will get the stent or not. Discussed at the length. Answered many questions for her. We did see her for chest pain and non-ST elevation myocardial infarction in the morning with chronic obstructive pulmonary disease. John Brown DO
[2017-06-08] MEDS: Nitroglycerin 50mg in D5W 50 MG/250 ML BOTTLE IV SCH (09:22)
--- NOTE | 2017-06-08 09:26 | RAD ---
HISTORY: r/o pulm edema COMPARISON: 06/04/2017 FINDINGS: LUNGS: Diffuse interstitial pulmonary edema with or without diffuse interstitial lung disease is inferred. Vague increased opacity -right upper lobe consistent with coalescing pulmonary edema and/or patchy coalescing infiltrate/coalescing patchy atelectatic like changes. The right were rotated status limits evaluation PLEURA: Small interval right pleural effusion with or without pleural thickening suggested. No pneumothorax apparent. CARDIOVASCULAR: Normal. OSSEOUS STRUCTURES: No significant abnormalities. VISUALIZED UPPER ABDOMEN: Normal. OTHER FINDINGS: None. IMPRESSION: Interval increased interstitial pulmonary edema -with greater confluence right upper lobe. Additional considerations right upper lobe patchy coalescing minimal infiltrate/patchy coalescing atelectatic changes. Follow-up recommended
--- NOTE | 2017-06-08 09:29 | PCM.RRT ---
NETWORK DIRECTOR Nurses Assessment - Situation NETWORK DIRECTOR Responder Arrival Time: 08:30 Location: [facility] NETWORK DIRECTOR Reason for Call: Hypertension, Respiratory Distress NETWORK DIRECTOR Called By: RN - Constitutional Appears: In Acute Distress - Head Head Exam: NORMAL INSPECTION - Eyes Eye Exam: PERRL (sluggish response ) - Respiratory Exam Respiratory Exam: Accessory Muscle Use, Rales, Respiratory Distress. absent: Wheezes - Cardiovascular Exam Cardiovascular Exam: REGULAR RHYTHM, +S1, +S2. absent: Bradycardia, Tachycardia - Neurological Exam Additional exam: Non responsive to commands. Spontaneous eye opening. Plan - Assessment of Findings&Treatment Plan Patient is a 72F for whom a rapid response was called at approximately 0830. Patient is DNR/DNI. Patient was diaphoretic and in respiratory distress upon arrival with BP 226/105. Patient was breathing on her own with 100% oxygen with non rebreather mask. Patient was found to have a non working IV in the right arm so a new one was placed in the right wrist. Patient had wet breath sounds and Lasix 40 mg was given IV and Huber catheter inserted. Patient's repeat BP was 193/150. Patient's blood glucose was checked and found to be 175. The following three BPs were taken: 225/106, 235/105, 235/108. Patient was then given Hydralazine 10 mg. BP mildly reduced to 228/111. Another dose of Hydralazine 10 mg was given and BP reduced to 203/95. At that time patient was started on Nitro drip at 5 mcg/min and transferred to the ICU. Patient was started on BiPAP in the ICU at 12/5 at 100%. STAT CXR was ordered and showed RUL infiltrate without significant congestion. Patient produced about 900 ml of urine and began to come around. With these findings it was concluded that the change in patient status was likely secondary to urinary retention.
[2017-06-08] MEDS: Ranolazine 500 mg Extended Release Tablets PO SCH ×2 (12:52→17:09)
[2017-06-08] MEDS: diltiaZEM 120 mg/24 Hours CD Cap PO SCH (17:08)
--- NOTE | 2017-06-08 17:58 | CP.PCM.CON ---
<Charli Bruce Johnson - Last Filed: 06/08/17 17:55> History of Present Illness - History of Present Illness History of Present Illness: Patient is a 72 year old female with extensive PMHx was admitted to the hospital on 06/04 for chest pain with positive Troponins. She was to have a cardiac catherization procedure done today, but became hypertensive with BP 226/ 105 and in respiratory distress; rapid response was called and patient was admitted to ICU. She is now sitting up in bed, comfortable, talking, no longer requiring BiPAP. Patient denies any fever, headaches, vision changes, chest pain , palpitations, shortness of breath, cough, n/v/d/c, urinary complaints, weakness or tingling. PMH: anemia, anxiety, arthritis, back pain, bronchitis, CAD, CHF, COPD, CVA, dementia, DVT, emphysema, right hip fractures and repair, HTN, HLD, malignancy of breast, left breast 4 years ago in remission, last chemo 3 years ago, osteoporosis, peripheral edema, CKD, schizophrenia, and TIA. PSH: coronary angioplasty with 2 drug eluting stents, Left heart catheterization , Left hip ORIF, toe nail excisions, FH: HTN and DM Social Hx: previous smoker, denies EtOH and drug use. Lives alone Allergies: IV dye and iodine Code status: DNR/DNI Review of Systems - Review of Systems Systems not reviewed;Unavailable: Uncooperative Past Patient History - Infectious Disease Hx of Infectious Diseases: None - Tetanus Immunizations Tetanus Immunization: Unknown - Past Medical History & Family History Past Medical History?: Yes - Past Social History Smoking Status: Former Smoker - CARDIAC Hx Cardiac Disorders: Yes Hx Congestive Heart Failure: Yes Hx Hypercholesterolemia: Yes Hx Hypertension: Yes - PULMONARY Hx Chronic Obstructive Pulmonary Disease (COPD): Yes - NEUROLOGICAL Hx Neurological Disorder: Yes Hx Dementia: Yes Hx Transient Ischemic Attacks (TIA): Yes - HEENT Hx HEENT Problems: Yes (left eye blurry) 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) Other/Comment: [place] - RENAL Hx Chronic Kidney Disease: Yes - ENDOCRINE/METABOLIC Hx Endocrine Disorders: No - HEMATOLOGICAL/ONCOLOGICAL Hx Blood Disorders: Yes Hx Anemia: Yes Hx Cancer: Yes (Left breast 4years ago) - INTEGUMENTARY Hx Dermatological Problems: No - MUSCULOSKELETAL/RHEUMATOLOGICAL Hx Musculoskeletal Disorders: No Hx Falls: No - GASTROINTESTINAL Hx Gastrointestinal Disorders: Yes Hx Gastroesophageal Reflux: Yes - GENITOURINARY/GYNECOLOGICAL Hx Genitourinary Disorders: Yes Hx Bladder Cancer: Yes - PSYCHIATRIC Hx Psychophysiologic Disorder: Yes Hx Schizophrenia: Yes Hx Substance Use: No - SURGICAL HISTORY Hx Surgeries: Yes Hx Coronary Stent: Yes (07/26/12) Hx Joint Replacement: Yes (right hip replacement 11/06/13) Hx Orthopedic Surgery: Yes - ANESTHESIA Hx Anesthesia: Yes Hx Anesthesia Reactions: No Hx Malignant Hyperthermia: No Has any member of the family had a problem w/ anesthesia?: No Meds Allergies/Adverse Reactions: Allergies Allergy/AdvReac Type Severity Reaction Status Date / Time iodine Allergy Severe ANAPHYLAXIS Verified 06/04/17 16:34 iv dye Allergy Severe ANAPHYLAXIS Uncoded 06/04/17 16:34 - Medications Medications: Current Medications Aspirin (Ecotrin) 81 mg PO DAILY [facility] Last Admin: 06/08/17 15:56 Dose: 81 mg Azithromycin (Zithromax) 500 mg PO DAILY [facility] Last Admin: 06/08/17 17:10 Dose: 500 mg Clonidine HCl (Catapres) 0.1 mg PO Q8H [facility] Last Admin: 06/08/17 15:56 Dose: 0.1 mg Diltiazem HCl (Cardizem Cd) 120 mg PO DAILY [facility] Last Admin: 06/08/17 17:08 Dose: 120 mg Enoxaparin Sodium (Lovenox) 40 mg SC DAILY [facility] Last Admin: 06/07/17 10:04 Dose: 40 mg Furosemide (Lasix) 40 mg IVP DAILY [facility] Last Admin: 06/08/17 09:59 Dose: Not Given Ceftriaxone Sodium 1 gm/ (Sodium Chloride) 100 mls @ 100 mls/hr IVPB DAILY@ 1100 [facility] Last Admin: 06/08/17 10:46 Dose: 100 mls/hr Nitroglycerin/Dextrose (Nitroglycerin 50 Mg/250 Ml D5w) 50 mg in 250 mls @ 1.5 mls/hr IV .Q24H [facility]; 5 MCG/MIN PRN Reason: Protocol Last Admin: 06/08/17 09:22 Dose: 5 mcg/min, 1.5 mls/hr Metoprolol Succinate (Toprol Xl) 25 mg PO DAILY [facility] Last Admin: 06/08/17 11:28 Dose: Not Given Morphine Sulfate (Morphine) 2 mg IVP Q4 PRN PRN Reason: Pain, moderate (4-7) Last Admin: 06/07/17 19:51 Dose: 2 mg Nitroglycerin (Nitrostat Sl Tab) 0.4 mg SL Q5M PRN PRN Reason: Pain, moderate (4-7) Ranolazine (Ranexa) 500 mg PO BID [facility] Last Admin: 06/08/17 17:09 Dose: 500 mg Fluticasone/Salmeterol (Advair Diskus 250/50) 1 puff INH RQ12 [facility] Last Admin: 06/08/17 08:24 Dose: Not Given Tiotropium [place] (Spiriva) 18 mcg INH RQ24 [facility] Last Admin: 06/08/17 08:24 Dose: Not Given Tramadol HCl (Ultram) 50 mg PO Q8H [facility] Last Admin: 06/08/17 15:57 Dose: 50 mg Physical Exam - Constitutional Appears: Other (uncooperative - she would not let me examine her) Results - Vital Signs Recent Vital Signs: Last Vital Signs Temp 97.6 F 06/08/17 12:00 Pulse 78 06/08/17 17:10 Resp 10 L 06/08/17 17:10 BP 155/72 H 06/08/17 17:03 Pulse Ox 97 06/08/17 17:10 - Labs Result Diagrams: 06/08/17 07:16 06/08/17 07:16 Labs: Laboratory Results - last 24 hr 06/08/17 06/08/17 06/08/17 07:16 07:16 07:16 WBC 8.3 RBC 3.98 Hgb 8.4 L Hct 27.5 L MCV 69.0 L MCH 21.2 L MCHC 30.7 L RDW 17.0 H Plt Count 233 MPV 10.0 PT 12.7 H INR 1.1 APTT 28 Sodium 140 Potassium 4.0 Chloride 105 Carbon Dioxide 25 Anion Gap 15 BUN 28 H Creatinine 1.3 H Est GFR ( Amer) 49 Est GFR (Non-Af Amer) 40 POC Glucose (mg/dL) Random Glucose 98 Calcium 8.7 Total Bilirubin 0.4 AST 10 L ALT 19 Alkaline Phosphatase 57 Total Protein 5.7 L Albumin 3.2 L Globulin 2.5 Albumin/Globulin Ratio 1.3 06/08/17 08:42 WBC RBC Hgb Hct MCV MCH MCHC RDW Plt Count MPV PT INR APTT Sodium Potassium Chloride Carbon Dioxide Anion Gap BUN Creatinine Est GFR ( Amer) Est GFR (Non-Af Amer) POC Glucose (mg/dL) 175 H Random Glucose Calcium Total Bilirubin AST ALT Alkaline Phosphatase Total Protein Albumin Globulin Albumin/Globulin Ratio Assessment & Plan - Assessment and Plan (Free Text) Assessment: 72 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 - Started Lasix 40 mg IV - Continue Advair 250/50 RQ12 - Continue Spiriva 18 mcg RQ24 Msk: Arthritis, back pain, osteoporosis - Tramadol 50 mg PO Q8 ID: community acquired pneumonia - Continue Azithromycin 500 mg PO daily. Started on 06/06 - Continue Ceftriaxone 1 gm IV daily. Started on 06/05 Heme/Onc: no acute issues Neuro: no acute issues Renal: no acute issues Psych: no acute issues Prophylaxis: - Code status: DNR/DNI - PT/OT <Vaughn Paul - Last Filed: 06/13/17 11:53> Meds - Medications Medications: Current Medications Acetylcysteine (Acetylcysteine 20%) 3 ml PO BID [facility] Last Admin: 06/11/17 12:00 Dose: 3 ml Aspirin (Ecotrin) 81 mg PO DAILY [facility] Last Admin: 06/13/17 09:35 Dose: 81 mg Azithromycin (Zithromax) 500 mg PO DAILY [facility] Last Admin: 06/13/17 09:34 Dose: 500 mg Clonidine HCl (Catapres) 0.1 mg PO Q8H [facility] Last Admin: 06/13/17 06:34 Dose: 0.1 mg Diltiazem HCl (Cardizem Cd) 120 mg PO DAILY [facility] Last Admin: 06/13/17 09:35 Dose: 120 mg Enoxaparin Sodium (Lovenox) 40 mg SC DAILY [facility] Last Admin: 06/11/17 12:00 Dose: 40 mg Famotidine (Pepcid) 20 mg PO DAILY [facility] Last Admin: 06/13/17 09:35 Dose: 20 mg Hydralazine HCl (Apresoline) 75 mg PO TID [facility] Ceftriaxone Sodium 1 gm/ (Sodium Chloride) 100 mls @ 100 mls/hr IVPB DAILY@ 1100 [facility] Last Admin: 06/13/17 11:28 Dose: Not Given Losartan Potassium (Cozaar) 100 mg PO DAILY [facility] Last Admin: 06/13/17 09:35 Dose: 100 mg Metoprolol Succinate (Toprol Xl) 25 mg PO DAILY [facility] Last Admin: 06/13/17 09:35 Dose: 25 mg Morphine Sulfate (Morphine) 2 mg IVP Q4 PRN PRN Reason: Pain, moderate (4-7) Last Admin: 06/13/17 04:28 Dose: 2 mg Nitroglycerin (Nitrostat Sl Tab) 0.4 mg SL Q5M PRN PRN Reason: Pain, moderate (4-7) Ranolazine (Ranexa) 500 mg PO BID [facility] Last Admin: 06/13/17 09:35 Dose: 500 mg Fluticasone/Salmeterol (Advair Diskus 250/50) 1 puff INH RQ12 [facility] Last Admin: 06/13/17 07:39 Dose: Not Given Tiotropium [place] (Spiriva) 18 mcg INH RQ24 [facility] Last Admin: 06/13/17 07:40 Dose: Not Given Tramadol HCl (Ultram) 50 mg PO Q8H [facility] Last Admin: 06/13/17 06:34 Dose: 50 mg Results - Vital Signs Recent Vital Signs: Last Vital Signs Temp 97.5 F L 06/13/17 07:56 Pulse 73 06/13/17 07:56 Resp 19 06/13/17 07:56 BP 182/71 H 06/13/17 09:35 Pulse Ox 94 L 06/13/17 07:56 - Labs Result Diagrams: 06/13/17 08:19 06/13/17 08:19 Labs: Laboratory Results - last 24 hr 06/13/17 06/13/17 08:19 08:19 WBC 10.9 H RBC 4.33 Hgb 9.3 L Hct 29.7 L MCV 68.5 L MCH 21.5 L MCHC 31.4 L RDW 17.1 H Plt Count 275 MPV 10.4 Sodium 141 Potassium 4.9 Chloride 101 Carbon Dioxide 26 Anion Gap 19 BUN 39 H Creatinine 1.2 Est GFR ( Amer) 53 Est GFR (Non-Af Amer) 44 Random Glucose 158 H Calcium 9.4 Total Bilirubin 0.4 AST 9 L ALT 16 Alkaline Phosphatase 61 Total Protein 6.2 L Albumin 3.7 Globulin 2.5 Albumin/Globulin Ratio 1.4 Attending/Attestation - Attestation I have personally seen and examined this patient.: Yes I have fully participated in the care of the patient.: Yes I have reviewed all pertinent clinical information: Yes Notes (Text): Today: June The patient was Seen/interviewed and examined by me at the bedside during ICU round, Medical records reviewed and Management issues were discussed and formulated with the house staff. I have reviewed all the relevant clinical, laboratory, hemodynamic, radiographic data and medications Pain issues, skin care, head of the bed elevation, glycemic control were addressed. 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 Bruce note. Pt's current status is discussed with pt / pt's family at the bedside Full code
--- NOTE | 2017-06-08 18:36 | CARD ---
APPROVED REPORT EKG Measurement Heart [id number] <Conclusion> Normal sinus rhythm with sinus arrhythmia Nonspecific T wave abnormality Prolonged QT Abnormal ECG
--- NOTE | 2017-06-08 19:15 | CP.PCM.PN ---
Subjective - Date & Time of Evaluation Date of Evaluation: 06/08/17 Time of Evaluation: 19:13 - Subjective Subjective: s/p cardiac cath with hypertensive urgency, transferred to icu Objective - Vital Signs/Intake and Output Vital Signs (last 24 hours): Temp Pulse Resp BP Pulse Ox 97.6 F 76 15 138/59 L 87 L 06/08/17 12:00 06/08/17 19:00 06/08/17 19:00 06/08/17 18:33 06/08/17 19:00 Intake and Output: 06/08/17 06/09/17 18:59 06:59 Intake Total 13.5 1.5 Output Total 1525 Balance -1511.5 1.5 - Medications Medications: Current Medications Aspirin (Ecotrin) 81 mg PO DAILY [facility] Last Admin: 06/08/17 15:56 Dose: 81 mg Azithromycin (Zithromax) 500 mg PO DAILY [facility] Last Admin: 06/08/17 17:10 Dose: 500 mg Clonidine HCl (Catapres) 0.1 mg PO Q8H [facility] Last Admin: 06/08/17 15:56 Dose: 0.1 mg Diltiazem HCl (Cardizem Cd) 120 mg PO DAILY [facility] Last Admin: 06/08/17 17:08 Dose: 120 mg Enoxaparin Sodium (Lovenox) 40 mg SC DAILY [facility] Last Admin: 06/07/17 10:04 Dose: 40 mg Furosemide (Lasix) 40 mg IVP DAILY [facility] Last Admin: 06/08/17 09:59 Dose: Not Given Ceftriaxone Sodium 1 gm/ (Sodium Chloride) 100 mls @ 100 mls/hr IVPB DAILY@ 1100 [facility] Last Admin: 06/08/17 10:46 Dose: 100 mls/hr Nitroglycerin/Dextrose (Nitroglycerin 50 Mg/250 Ml D5w) 50 mg in 250 mls @ 1.5 mls/hr IV .Q24H [facility]; 5 MCG/MIN PRN Reason: Protocol Last Admin: 06/08/17 09:22 Dose: 5 mcg/min, 1.5 mls/hr Metoprolol Succinate (Toprol Xl) 25 mg PO DAILY [facility] Last Admin: 06/08/17 11:28 Dose: Not Given Morphine Sulfate (Morphine) 2 mg IVP Q4 PRN PRN Reason: Pain, moderate (4-7) Last Admin: 06/07/17 19:51 Dose: 2 mg Nitroglycerin (Nitrostat Sl Tab) 0.4 mg SL Q5M PRN PRN Reason: Pain, moderate (4-7) Ranolazine (Ranexa) 500 mg PO BID [facility] Last Admin: 06/08/17 17:09 Dose: 500 mg Fluticasone/Salmeterol (Advair Diskus 250/50) 1 puff INH RQ12 [facility] Last Admin: 06/08/17 08:24 Dose: Not Given Tiotropium [place] (Spiriva) 18 mcg INH RQ24 [facility] Last Admin: 06/08/17 08:24 Dose: Not Given Tramadol HCl (Ultram) 50 mg PO Q8H [facility] Last Admin: 06/08/17 15:57 Dose: 50 mg - Labs Labs: 06/08/17 07:16 06/08/17 07:16 PT 12.7 SECONDS (9.7-12.2) H 06/08/17 07:16 INR 1.1 06/08/17 07:16 APTT 28 SECONDS (21-34) 06/08/17 07:16 - Constitutional Appears: No Acute Distress, Chronically Ill - Head Exam Head Exam: ATRAUMATIC, NORMOCEPHALIC - Eye Exam Eye Exam: Normal appearance - ENT Exam ENT Exam: Mucous Membranes Moist - Respiratory Exam Respiratory Exam: Decreased Breath Sounds - Cardiovascular Exam Cardiovascular Exam: +S1, +S2 - GI/Abdominal Exam GI & Abdominal Exam: Normal Bowel Sounds - Rectal Exam Rectal Exam: Deferred - Neurological Exam Neurological Exam: Alert, Awake - Psychiatric Exam Psychiatric exam: Normal Affect, Normal Mood - Skin Skin Exam: Intact Assessment and Plan (1) ACS (acute coronary syndrome) Status: Acute (2) Chest pain Status: Acute (3) COPD (chronic obstructive pulmonary disease) Status: Acute (4) COPD (chronic obstructive pulmonary disease) Status: Chronic (5) Dyspnea on exertion Status: Acute (6) Hypertensive emergency Status: Acute
[2017-06-09 06:30] LABS: HEMATOCRIT 27.1 % (34.0-47.0); MEAN CELL VOLUME 67.9 fL (81.0-99.0); MEAN CORPUSCULAR HEMOGLOBIN 21.5 pg (27.0-31.0); MEAN CORPUSCULAR HGB CONC 31.7 g/dL (33.0-37.0); MEAN PLATELET VOLUME 9.5 fL (7.2-11.7); RED CELL DISTRIBUTION WIDTH 16.8 % (11.5-14.5); WHITE BLOOD COUNT 9.9 K/uL (4.8-10.8)
[2017-06-09 06:48] LABS: ALB/GLOB RATIO 1.4 (1.0-2.1); BILIRUBIN,TOTAL 0.3 mg/dL (0.2-1.3); POTASSIUM 3.8 mmol/L (3.6-5.2); TOTAL PROTEIN 5.6 g/dL (6.3-8.3)
[2017-06-09] MEDS: Tiotropium 18 mcg Cap For Inhalation INH SCH (07:25)
[2017-06-09] MEDS: Fluticasone-Salmeterol 250-50mcg Diskus INH SCH ×2 (07:25→19:18)
[2017-06-09] MEDS: diltiaZEM 120 mg/24 Hours CD Cap PO SCH (10:24)
[2017-06-09] MEDS: Ranolazine 500 mg Extended Release Tablets PO SCH ×2 (10:24→17:58)
[2017-06-09] MEDS: Metoprolol Succinate 25 mg XL Tab PO SCH (10:27)
--- NOTE | 2017-06-09 10:40 | CP.PCM.PN ---
Subjective - Date & Time of Evaluation Date of Evaluation: 06/09/17 Time of Evaluation: 10:38 - Subjective Subjective: feels ok needs cardiac stent Objective - Vital Signs/Intake and Output Vital Signs (last 24 hours): Temp Pulse Resp BP Pulse Ox 97.6 F 70 12 152/54 H 100 06/09/17 08:00 06/09/17 09:00 06/09/17 09:00 06/09/17 10:24 06/09/17 09:00 Intake and Output: 06/09/17 06/09/17 06:59 18:59 Intake Total 619.5 124.5 Output Total 460 80 Balance 159.5 44.5 - Medications Medications: Current Medications Aspirin (Ecotrin) 81 mg PO DAILY [facility] Last Admin: 06/09/17 10:24 Dose: 81 mg Azithromycin (Zithromax) 500 mg PO DAILY [facility] Last Admin: 06/09/17 10:25 Dose: 500 mg Clonidine HCl (Catapres) 0.1 mg PO Q8H [facility] Last Admin: 06/09/17 06:08 Dose: 0.1 mg Diltiazem HCl (Cardizem Cd) 120 mg PO DAILY [facility] Last Admin: 06/09/17 10:24 Dose: 120 mg Enoxaparin Sodium (Lovenox) 40 mg SC DAILY [facility] Last Admin: 06/07/17 10:04 Dose: 40 mg Furosemide (Lasix) 40 mg IVP DAILY [facility] Last Admin: 06/09/17 10:24 Dose: 40 mg Ceftriaxone Sodium 1 gm/ (Sodium Chloride) 100 mls @ 100 mls/hr IVPB DAILY@ 1100 [facility] Last Admin: 06/08/17 10:46 Dose: 100 mls/hr Nitroglycerin/Dextrose (Nitroglycerin 50 Mg/250 Ml D5w) 50 mg in 250 mls @ 1.5 mls/hr IV .Q24H [facility]; 5 MCG/MIN PRN Reason: Protocol Last Admin: 06/08/17 09:22 Dose: 5 mcg/min, 1.5 mls/hr Metoprolol Succinate (Toprol Xl) 25 mg PO DAILY [facility] Last Admin: 06/09/17 10:27 Dose: 25 mg Morphine Sulfate (Morphine) 2 mg IVP Q4 PRN PRN Reason: Pain, moderate (4-7) Last Admin: 09/07/17 20:01 Dose: 2 mg Nitroglycerin (Nitrostat Sl Tab) 0.4 mg SL Q5M PRN PRN Reason: Pain, moderate (4-7) Ranolazine (Ranexa) 500 mg PO BID [facility] Last Admin: 06/09/17 10:24 Dose: 500 mg Fluticasone/Salmeterol (Advair Diskus 250/50) 1 puff INH RQ12 [facility] Last Admin: 06/09/17 07:25 Dose: Not Given Tiotropium [place] (Spiriva) 18 mcg INH RQ24 [facility] Last Admin: 06/09/17 07:25 Dose: Not Given Tramadol HCl (Ultram) 50 mg PO Q8H [facility] Last Admin: 06/08/17 22:03 Dose: 50 mg - Labs Labs: 06/09/17 06:20 06/09/17 06:20 PT 12.7 SECONDS (9.7-12.2) H 06/08/17 07:16 INR 1.1 06/08/17 07:16 APTT 28 SECONDS (21-34) 06/08/17 07:16 - Constitutional Appears: No Acute Distress, Chronically Ill - Head Exam Head Exam: ATRAUMATIC, NORMOCEPHALIC - Eye Exam Eye Exam: Normal appearance - ENT Exam ENT Exam: Mucous Membranes Moist - Respiratory Exam Respiratory Exam: Decreased Breath Sounds - Cardiovascular Exam Cardiovascular Exam: +S1, +S2 - GI/Abdominal Exam GI & Abdominal Exam: Normal Bowel Sounds - Rectal Exam Rectal Exam: Deferred - Neurological Exam Neurological Exam: Alert, Awake, Oriented x3 - Psychiatric Exam Psychiatric exam: Normal Affect, Normal Mood - Skin Skin Exam: Intact Assessment and Plan (1) ACS (acute coronary syndrome) Status: Acute (2) Chest pain Status: Acute (3) COPD (chronic obstructive pulmonary disease) Status: Acute (4) COPD (chronic obstructive pulmonary disease) Status: Chronic (5) Dyspnea on exertion Status: Acute (6) Hypertensive emergency Status: Acute
[2017-06-09] MEDS: Enoxaparin 40 mg Syringe SC SCH (11:47)
--- NOTE | 2017-06-09 12:31 | PN ---
DATE: SUBJECTIVE: She was supposed to have a cardiac cath yesterday, but was unresponsive with hypertensive crisis. She was given medications. Her catheterization was canceled and we moved her to the intensive care unit. She had nitroglycerin drip. She is alert, sitting in bed, and yelling and screaming for food and not happy with the situation, although I tried to explain to her that she was unresponsive and hypertensive emergency. She does not want to hear it. PHYSICAL EXAMINATION: GENERAL: She is very alert, yelling and screaming. No chest pain. No shortness of breath. VITAL SIGNS: Presently, she has a 98.5 temperature, 128/78 blood pressure, 14 respiratory rate and 100% O2 saturation on nasal cannula. HEENT: Head is atraumatic and normocephalic. Throat is moist. NECK: Supple. HEART: Regular rate. LUNGS: Decreased breath sounds, but clear. ABDOMEN: Soft. EXTREMITIES: No edema. MEDICATIONS: She is currently on Advair, Cardizem, Catapres, ceftriaxone, Ecotrin, Lasix, Lovenox, morphine, nitroglycerin drip, Ranexa, Spiriva, Toprol, Ultram, and Zithromax. LABORATORY DATA: She has 134 sodium, potassium 3.8, BUN 34, and creatinine 1.3. GFR is 40. Sugar is 133. Calcium is 9, total bilirubin is 0.3, AST is 10, ALT is 16, alkaline phosphatase is 57 and total protein is 5.6. She has a 9.9 white count, hemoglobin 8.6, hematocrit 27.1 with a 242 platelets. ASSESSMENT AND PLAN: She is being seen by cardiology and pulmonology, I believe that is a hematology and oncology consult. They canceled the cardiac cath, as someone will do it in the future, if she is now get off the IV medications for the blood pressure and when she is on p.o. medication, we will probably discharge her home or to a rehab facility. We will check her labs tomorrow. She is having a PA, hypertensive crisis and in intensive care unit in trouble at this time. Continue aggressive treatment and care. John Brown DO
[2017-06-09] MEDS: Nitroglycerin 50mg in D5W 50 MG/250 ML BOTTLE IV SCH (17:37)
--- NOTE | 2017-06-09 18:19 | CP.CCUPN ---
<Charli Bruce R - Last Filed: 06/09/17 18:12> CCU Subjective - Physician Review Subjective (Free Text): Patient seen and examined at bedside sitting up comfortably in bed. Per nursing staff, no acute events overnight. She is tolerating her diet and has an appetite but forgets that she has been fed and consistently asks to be fed. Case was discussed with house staff and labs and chart was reviewed. Patient denies any headache, chest pain, palpitations, SOB, cough, n/v/d/c, weakness or other medical complaints. 06/09/17 18:12 CCU Objective - Vital Signs / Intake & Output Vital Signs (Last 4 hours): Vital Signs Pulse Resp BP Pulse Ox 06/09/17 17:00 70 16 99 06/09/17 16:59 74 21 117/54 L 100 06/09/17 16:00 69 15 100 06/09/17 15:56 64 18 131/50 L 100 06/09/17 15:00 69 19 100 06/09/17 14:56 67 17 142/55 L 100 Intake and Output (Last 8hrs): Intake & Output 06/09/17 06/09/17 06/09/17 06:59 14:59 22:59 Intake Total 373.5 372.0 41.5 Output Total 285 485 120 Balance 88.5 -113.0 -78.5 Weight 100 lb 7 oz Intake: IV 40 Intake, IV Amount 23.5 12.0 1.5 Right Hand 13.5 12.0 1.5 Right Wrist 10 Oral 350 360 Output: Urine 285 485 120 Urethral ([place]) 285 485 120 Other: # Bowel Movements 0 - Physical Exam Physical Exam Limitations: Positive for: Uncooperative - Medications Active Medications: Active Medications Generic Name Dose Route Start Last Admin Trade Name Freq PRN Reason Stop Dose Admin Aspirin 81 mg 06/05/17 10:00 06/09/17 10:24 Ecotrin PO 81 mg DAILY [facility] Administration Azithromycin 500 mg 06/06/17 10:00 06/09/17 10:25 Zithromax PO 500 mg DAILY [facility] Administration Clonidine HCl 0.1 mg 06/05/17 06:00 06/09/17 15:20 Catapres PO 0.1 mg Q8H [facility] Administration Diltiazem HCl 120 mg 06/06/17 10:00 06/09/17 10:24 Cardizem Cd PO 120 mg DAILY [facility] Administration Enoxaparin Sodium 40 mg 06/09/17 11:30 06/09/17 11:47 Lovenox SC 40 mg DAILY [facility] Administration Furosemide 40 mg 06/05/17 10:00 06/09/17 10:24 Lasix IVP 40 mg DAILY [facility] Administration Ceftriaxone Sodium 1 gm/ 100 mls @ 100 mls/hr 06/05/17 11:00 06/09/17 11:07 Sodium Chloride IVPB 100 mls/hr DAILY@1100 [facility] Administration Nitroglycerin/Dextrose 50 mg in 250 mls @ 1.5 mls/hr 06/08/17 09:15 06/09/17 17:37 Nitroglycerin 50 Mg/250 Ml D5w IV Not Given .Q24H [facility] Protocol 5 MCG/MIN Metoprolol Succinate 25 mg 06/06/17 10:00 06/09/17 10:27 Toprol Xl PO 25 mg DAILY [facility] Administration Morphine Sulfate 2 mg 06/05/17 09:50 06/09/17 17:58 Morphine IVP 2 mg Q4 PRN Administration Pain, moderate (4-7) Nitroglycerin 0.4 mg 06/05/17 09:42 Nitrostat Sl Tab SL Q5M PRN Pain, moderate (4-7) Ranolazine 500 mg 06/06/17 10:00 06/09/17 17:58 Ranexa PO 500 mg BID [facility] Administration Fluticasone/Salmeterol 1 puff 06/06/17 20:00 06/09/17 07:25 Advair Diskus 250/50 INH Not Given RQ12 [facility] Tiotropium [place] 18 mcg 06/07/17 08:00 06/09/17 07:25 Spiriva INH Not Given RQ24 [facility] Tramadol HCl 50 mg 06/04/17 22:45 06/09/17 17:57 Ultram PO 50 mg Q8H [facility] Administration - Patient Studies Lab Studies: Lab Studies 06/09/17 06/09/17 Range/Units 06:20 06:20 WBC 9.9 (4.8-10.8) K/uL RBC 3.99 (3.80-5.20) Mil/uL Hgb 8.6 L (11.0-16.0) g/dL Hct 27.1 L (34.0-47.0) % MCV 67.9 L (81.0-99.0) fL MCH 21.5 L (27.0-31.0) pg MCHC 31.7 L (33.0-37.0) g/dL RDW 16.8 H (11.5-14.5) % Plt Count 242 (130-400) K/uL MPV 9.5 (7.2-11.7) fL Sodium 134 (132-148) mmol/L Potassium 3.8 (3.6-5.2) mmol/L Chloride 97 L (98-107) mmol/L Carbon Dioxide 23 (22-30) mmol/L Anion Gap 18 (10-20) BUN 34 H (7-17) mg/dL Creatinine 1.3 H (0.7-1.2) MG/DL Est GFR ( Amer) 49 Est GFR (Non-Af Amer) 40 Random Glucose 133 H (65-105) mg/dL Calcium 9.0 (8.6-10.4) mg/dl Total Bilirubin 0.3 (0.2-1.3) mg/dL AST 10 L (14-36) U/L ALT 16 (9-52) U/L Alkaline Phosphatase 57 (38-126) U/L Total Protein 5.6 L (6.3-8.3) g/dL Albumin 3.3 L (3.5-5.0) g/dL Globulin 2.3 (2.2-3.9) gm/dL Albumin/Globulin Ratio 1.4 (1.0-2.1) Laboratory Results - last 24 hr 06/09/17 06/09/17 06:20 06:20 WBC 9.9 RBC 3.99 Hgb 8.6 L Hct 27.1 L MCV 67.9 L MCH 21.5 L MCHC 31.7 L RDW 16.8 H Plt Count 242 MPV 9.5 Sodium 134 Potassium 3.8 Chloride 97 L Carbon Dioxide 23 Anion Gap 18 BUN 34 H Creatinine 1.3 H Est GFR ( Amer) 49 Est GFR (Non-Af Amer) 40 Random Glucose 133 H Calcium 9.0 Total Bilirubin 0.3 AST 10 L ALT 16 Alkaline Phosphatase 57 Total Protein 5.6 L Albumin 3.3 L Globulin 2.3 Albumin/Globulin Ratio 1.4 Review of Systems - Review of Systems Systems not reviewed;Unavailable: Uncooperative Critical Care Progress Note - Nutrition Nutrition: Nutrition Category Date Time Status Heart Healthy Diet [DIET] Diets 06/09/17 Breakfast Active Assessment/Plan - Assessment and Plan (Free Text) Assessment: 72 year old 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 Patient was scheduled for cardiac cath on 06/08 prior to admission to ICU - f/u cardiology reccs Pulm: COPD, emphysema, bronchitis - CXR 06/08: Increased interstitial pulmonary edema with greater confluence RUL. - Continue Lasix 40 mg IV - Continue Advair 250/50 RQ12 - Continue Spiriva 18 mcg RQ24 Msk: Arthritis, back pain, osteoporosis - Tramadol 50 mg PO Q8 ID: community acquired pneumonia - Continue Azithromycin 500 mg PO daily. Started on 06/06 - Continue Ceftriaxone 1 gm IV daily. Started on 06/05 Psych: agitation - responded well to 1 dose of Ativan 0.5 mg IV given - hold off on psych eval for now Heme/Onc: no acute issues Neuro: no acute issues Renal: no acute issues Prophylaxis: - DVT: lovenox 40mg sc daily - GI: pepcid 20mg daily - Code status: DNR/DNI - PT/OT <Naseem Gamez S - Last Filed: 06/09/17 18:45> CCU Objective - Vital Signs / Intake & Output Vital Signs (Last 4 hours): Vital Signs Pulse Resp BP Pulse Ox 06/09/17 18:00 72 17 100 06/09/17 17:57 75 18 96/63 L 100 06/09/17 17:00 70 16 99 06/09/17 16:59 74 21 117/54 L 100 06/09/17 16:00 69 15 100 06/09/17 15:56 64 18 131/50 L 100 06/09/17 15:00 69 19 100 06/09/17 14:56 67 17 142/55 L 100 Intake and Output (Last 8hrs): Intake & Output 06/09/17 06/09/17 06/09/17 06:59 14:59 22:59 Intake Total 373.5 372.0 41.5 Output Total 285 485 150 Balance 88.5 -113.0 -108.5 Weight 100 lb 7 oz Intake: IV 40 Intake, IV Amount 23.5 12.0 1.5 Right Hand 13.5 12.0 1.5 Right Wrist 10 Oral 350 360 Output: Urine 285 485 150 Urethral ([place]) 285 485 150 Other: # Bowel Movements 0 - Medications Active Medications: Active Medications Generic Name Dose Route Start Last Admin Trade Name Freq PRN Reason Stop Dose Admin Aspirin 81 mg 06/05/17 10:00 06/09/17 10:24 Ecotrin PO 81 mg DAILY [facility] Administration Azithromycin 500 mg 06/06/17 10:00 06/09/17 10:25 Zithromax PO 500 mg DAILY [facility] Administration Clonidine HCl 0.1 mg 06/05/17 06:00 06/09/17 15:20 Catapres PO 0.1 mg Q8H [facility] Administration Diltiazem HCl 120 mg 06/06/17 10:00 06/09/17 10:24 Cardizem Cd PO 120 mg DAILY [facility] Administration Enoxaparin Sodium 40 mg 06/09/17 11:30 06/09/17 11:47 Lovenox SC 40 mg DAILY [facility] Administration Famotidine 20 mg 06/10/17 10:00 Pepcid PO DAILY [facility] Furosemide 40 mg 06/05/17 10:00 06/09/17 10:24 Lasix IVP 40 mg DAILY [facility] Administration Ceftriaxone Sodium 1 gm/ 100 mls @ 100 mls/hr 06/05/17 11:00 06/09/17 11:07 Sodium Chloride IVPB 100 mls/hr DAILY@1100 [facility] Administration Nitroglycerin/Dextrose 50 mg in 250 mls @ 1.5 mls/hr 06/08/17 09:15 06/09/17 17:37 Nitroglycerin 50 Mg/250 Ml D5w IV Not Given .Q24H [facility] Protocol 5 MCG/MIN Metoprolol Succinate 25 mg 06/06/17 10:00 06/09/17 10:27 Toprol Xl PO 25 mg DAILY [facility] Administration Morphine Sulfate 2 mg 06/05/17 09:50 06/09/17 17:58 Morphine IVP 2 mg Q4 PRN Administration Pain, moderate (4-7) Nitroglycerin 0.4 mg 06/05/17 09:42 Nitrostat Sl Tab SL Q5M PRN Pain, moderate (4-7) Ranolazine 500 mg 06/06/17 10:00 06/09/17 17:58 Ranexa PO 500 mg BID [facility] Administration Fluticasone/Salmeterol 1 puff 06/06/17 20:00 06/09/17 07:25 Advair Diskus 250/50 INH Not Given RQ12 [facility] Tiotropium [place] 18 mcg 06/07/17 08:00 06/09/17 07:25 Spiriva INH Not Given RQ24 [facility] Tramadol HCl 50 mg 06/04/17 22:45 06/09/17 17:57 Ultram PO 50 mg Q8H [facility] Administration - Patient Studies Lab Studies: Lab Studies 06/09/17 06/09/17 Range/Units 06:20 06:20 WBC 9.9 (4.8-10.8) K/uL RBC 3.99 (3.80-5.20) Mil/uL Hgb 8.6 L (11.0-16.0) g/dL Hct 27.1 L (34.0-47.0) % MCV 67.9 L (81.0-99.0) fL MCH 21.5 L (27.0-31.0) pg MCHC 31.7 L (33.0-37.0) g/dL RDW 16.8 H (11.5-14.5) % Plt Count 242 (130-400) K/uL MPV 9.5 (7.2-11.7) fL Sodium 134 (132-148) mmol/L Potassium 3.8 (3.6-5.2) mmol/L Chloride 97 L (98-107) mmol/L Carbon Dioxide 23 (22-30) mmol/L Anion Gap 18 (10-20) BUN 34 H (7-17) mg/dL Creatinine 1.3 H (0.7-1.2) MG/DL Est GFR ( Amer) 49 Est GFR (Non-Af Amer) 40 Random Glucose 133 H (65-105) mg/dL Calcium 9.0 (8.6-10.4) mg/dl Total Bilirubin 0.3 (0.2-1.3) mg/dL AST 10 L (14-36) U/L ALT 16 (9-52) U/L Alkaline Phosphatase 57 (38-126) U/L Total Protein 5.6 L (6.3-8.3) g/dL Albumin 3.3 L (3.5-5.0) g/dL Globulin 2.3 (2.2-3.9) gm/dL Albumin/Globulin Ratio 1.4 (1.0-2.1) Laboratory Results - last 24 hr 06/09/17 06/09/17 06:20 06:20 WBC 9.9 RBC 3.99 Hgb 8.6 L Hct 27.1 L MCV 67.9 L MCH 21.5 L MCHC 31.7 L RDW 16.8 H Plt Count 242 MPV 9.5 Sodium 134 Potassium 3.8 Chloride 97 L Carbon Dioxide 23 Anion Gap 18 BUN 34 H Creatinine 1.3 H Est GFR ( Amer) 49 Est GFR (Non-Af Amer) 40 Random Glucose 133 H Calcium 9.0 Total Bilirubin 0.3 AST 10 L ALT 16 Alkaline Phosphatase 57 Total Protein 5.6 L Albumin 3.3 L Globulin 2.3 Albumin/Globulin Ratio 1.4 Critical Care Progress Note - Nutrition Nutrition: Nutrition Category Date Time Status Heart Healthy Diet [DIET] Diets 06/09/17 Breakfast Active Attending/Attestation - Attestation I have personally seen and examined this patient.: Yes I have fully participated in the care of the patient.: Yes I have reviewed all pertinent clinical information: Yes Notes (Text): 06/09/17 18:45 Patient seen and examined in the intensive care unit. Case discussed with house staff in the morning. For cardiac cath on Monday Continue present treatment Assessment and plan as per resident note
[2017-06-10] MEDS: Tiotropium 18 mcg Cap For Inhalation INH SCH (07:13)
[2017-06-10] MEDS: Fluticasone-Salmeterol 250-50mcg Diskus INH SCH ×2 (07:13→20:07)
--- NOTE | 2017-06-10 08:18 | PN ---
DATE: SUBJECTIVE: I saw her in the intensive care unit. She is comfortable, smiling, in bed, slept well, in good spirits, hungry. She wants to know when she is going to have a cardiac cath. 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 She is being seen by cardio and pulmonary. PHYSICAL EXAMINATION VITAL SIGNS: Her vital signs today are 97.6 temperature, 62 pulse, 133/55 blood pressure, and 100% O2 sat on 3 L nasal cannula. GENERAL: Alert and oriented, talking to me, happy, smiling, eating, in good spirits, wants physical therapy. HEAD: Atraumatic and normocephalic. HEART: Regular rate. LUNGS: Decreased breath sounds with good auscultation. ABDOMEN: Soft and nontender. EXTREMITIES: No edema. MEDICATIONS: She is currently on Advair, Cardizem, Catapres, ceftriaxone, Ecotrin, Lasix, Lovenox, morphine, nitroglycerin, Nitrostat, famotidine, Ranexa, Spiriva, Toprol, Ultram, and Zithromax. LABORATORY DATA: She has a 9.9 white count, 8.6 hemoglobin, 242 platelets. Sodium 134, potassium 3.8, BUN 34, and creatinine 1.3. GFR is 40. Sugar is 133. Calcium is 9, AST is 10, ALT is 16, alkaline phosphatase is 74, total protein is 5.6 ASSESSMENT AND PLAN: There are consults for Cardiology, Pulmonology, and we will get Renal involved. Also checking her labs. Physical therapy. Hopefully, get out of intensive care unit today. Revisit Dr. Tejada for cardiac cath possibly Monday. Coronary artery disease, chronic obstructive pulmonary disease, pneumonia, non-ST elevation myocardial infarction, and congestive heart failure. John Brown DO
[2017-06-10] MEDS: Nitroglycerin 50mg in D5W 50 MG/250 ML BOTTLE IV SCH (08:26)
[2017-06-10] MEDS: diltiaZEM 120 mg/24 Hours CD Cap PO SCH (10:30)
[2017-06-10] MEDS: Ranolazine 500 mg Extended Release Tablets PO SCH ×2 (10:30→18:50)
[2017-06-10] MEDS: Metoprolol Succinate 25 mg XL Tab PO SCH (10:30)
[2017-06-10] MEDS: Enoxaparin 40 mg Syringe SC SCH (10:31)
--- NOTE | 2017-06-10 10:34 | CP.PCM.CON ---
History of Present Illness - History of Present Illness History of Present Illness: 72 year old female with PMHx of HTN, CAD, CVA, Hearing loss, breast cancer, copd who was admitted to the hospital on 06/04 for chest pain with positive Troponins. She was to have a cardiac catherization procedure done but became hypertensive with BP 226/105 and in respiratory distress; rapid response was called and patient was admitted to ICU. She is now sitting up in bed, comfortable, talking and stating chest pain and dyspnea resolved. Patient denies any fever, headaches, vision changes, chest pain, palpitations, shortness of breath, cough, n/v/d/c, urinary complaints, weakness or tingling. Renal consult called for rise in creatinine. Patient unaware of any renal disease. She denies history of hematuria, proteinuria, nephrolithiasis, or bladder dysfunction. PMH: anemia, anxiety, arthritis, back pain, bronchitis, CAD, CHF, COPD, CVA, dementia, DVT, emphysema, right hip fractures and repair, HTN, HLD, malignancy of breast, left breast 4 years ago in remission, last chemo 3 years ago, osteoporosis, peripheral edema, CKD, schizophrenia, and TIA. PSH: coronary angioplasty with 2 drug eluting stents, Left heart catheterization , Left hip ORIF, toe nail excisions, FH: HTN and DM Social Hx: previous smoker, denies EtOH and drug use. Lives alone Allergies: IV dye and iodine Review of Systems - Review of Systems Systems not reviewed;Unavailable: Dementia - Constitutional Constitutional: absent: Fatigue, Fever, Lethargy - EENT Eyes: absent: Dry Eye, Pain Ears: Decreased Hearing. absent: Ear Pain, Dizziness Nose/Mouth/Throat: absent: Dry Mouth, Dysphagia, Neck Pain - Cardiovascular Cardiovascular: absent: Chest Pain at Rest, Diaphoresis, Dyspnea, Edema - Respiratory Respiratory: absent: Cough, Wheezing - Gastrointestinal Gastrointestinal: absent: Diarrhea, Melena, Nausea - Genitourinary Genitourinary: absent: Flank Pain, Nocturia, Urinary Incontinence, Urinary Hesitance, Urinary Urgency - Musculoskeletal Musculoskeletal: Muscle Cramps, Myalgias. absent: Neck Pain - Integumentary Integumentary: absent: Pruritus, Rash, Skin Ulcer, Swelling - Neurological Neurological: absent: Dizziness, Headaches, Syncope - Psychiatric Psychiatric: Confusion. absent: Depression - Endocrine Endocrine: absent: Polyphagia, Polyuria - Hematologic/Lymphatic Hematologic: absent: Easy Bleeding, Easy Bruising Past Patient History - Infectious Disease Hx of Infectious Diseases: None - Tetanus Immunizations Tetanus Immunization: Unknown - Past Medical History & Family History Past Medical History?: Yes - Past Social History Smoking Status: Former Smoker - CARDIAC Hx Cardiac Disorders: Yes Hx Congestive Heart Failure: Yes Hx Hypercholesterolemia: Yes Hx Hypertension: Yes - PULMONARY Hx Chronic Obstructive Pulmonary Disease (COPD): Yes - NEUROLOGICAL Hx Neurological Disorder: Yes Hx Dementia: Yes Hx Transient Ischemic Attacks (TIA): Yes - HEENT Hx HEENT Problems: Yes (left eye blurry) 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) Other/Comment: [place] - RENAL Hx Chronic Kidney Disease: Yes - ENDOCRINE/METABOLIC Hx Endocrine Disorders: No - HEMATOLOGICAL/ONCOLOGICAL Hx Blood Disorders: Yes Hx Anemia: Yes Hx Cancer: Yes (Left breast 4years ago) - INTEGUMENTARY Hx Dermatological Problems: No - MUSCULOSKELETAL/RHEUMATOLOGICAL Hx Musculoskeletal Disorders: No Hx Falls: No - GASTROINTESTINAL Hx Gastrointestinal Disorders: Yes Hx Gastroesophageal Reflux: Yes - GENITOURINARY/GYNECOLOGICAL Hx Genitourinary Disorders: Yes Hx Bladder Cancer: Yes - PSYCHIATRIC Hx Psychophysiologic Disorder: Yes Hx Schizophrenia: Yes Hx Substance Use: No - SURGICAL HISTORY Hx Surgeries: Yes Hx Coronary Stent: Yes (07/26/12) Hx Joint Replacement: Yes (right hip replacement 11/06/13) Hx Orthopedic Surgery: Yes - ANESTHESIA Hx Anesthesia: Yes Hx Anesthesia Reactions: No Hx Malignant Hyperthermia: No Has any member of the family had a problem w/ anesthesia?: No Meds Allergies/Adverse Reactions: Allergies Allergy/AdvReac Type Severity Reaction Status Date / Time iodine Allergy Severe ANAPHYLAXIS Verified 06/04/17 16:34 iv dye Allergy Severe ANAPHYLAXIS Uncoded 06/04/17 16:34 - Medications Medications: Current Medications Aspirin (Ecotrin) 81 mg PO DAILY [facility] Last Admin: 06/10/17 10:29 Dose: 81 mg Azithromycin (Zithromax) 500 mg PO DAILY [facility] Last Admin: 06/10/17 10:30 Dose: 500 mg Clonidine HCl (Catapres) 0.1 mg PO Q8H [facility] Last Admin: 06/10/17 06:22 Dose: 0.1 mg Diltiazem HCl (Cardizem Cd) 120 mg PO DAILY [facility] Last Admin: 06/10/17 10:30 Dose: 120 mg Enoxaparin Sodium (Lovenox) 40 mg SC DAILY [facility] Last Admin: 06/10/17 10:31 Dose: 40 mg Famotidine (Pepcid) 20 mg PO DAILY [facility] Last Admin: 06/10/17 10:29 Dose: 20 mg Furosemide (Lasix) 40 mg IVP DAILY [facility] Last Admin: 06/10/17 10:30 Dose: 40 mg Ceftriaxone Sodium 1 gm/ (Sodium Chloride) 100 mls @ 100 mls/hr IVPB DAILY@ 1100 [facility] Last Admin: 06/09/17 11:07 Dose: 100 mls/hr Nitroglycerin/Dextrose (Nitroglycerin 50 Mg/250 Ml D5w) 50 mg in 250 mls @ 1.5 mls/hr IV .Q24H [facility]; 5 MCG/MIN PRN Reason: Protocol Last Admin: 06/10/17 08:26 Dose: Not Given Metoprolol Succinate (Toprol Xl) 25 mg PO DAILY [facility] Last Admin: 06/10/17 10:30 Dose: 25 mg Morphine Sulfate (Morphine) 2 mg IVP Q4 PRN PRN Reason: Pain, moderate (4-7) Last Admin: 06/09/17 22:19 Dose: 2 mg Nitroglycerin (Nitrostat Sl Tab) 0.4 mg SL Q5M PRN PRN Reason: Pain, moderate (4-7) Ranolazine (Ranexa) 500 mg PO BID [facility] Last Admin: 06/10/17 10:30 Dose: 500 mg Fluticasone/Salmeterol (Advair Diskus 250/50) 1 puff INH RQ12 [facility] Last Admin: 06/10/17 07:13 Dose: 1 puff Tiotropium [place] (Spiriva) 18 mcg INH RQ24 [facility] Last Admin: 06/10/17 07:13 Dose: 18 mcg Tramadol HCl (Ultram) 50 mg PO Q8H [facility] Last Admin: 06/10/17 06:22 Dose: 50 mg Physical Exam - Constitutional Appears: Non-toxic, Chronically Ill - Head Exam Head Exam: ATRAUMATIC, NORMAL INSPECTION - Eye Exam Eye Exam: EOMI, Normal appearance - ENT Exam ENT Exam: Mucous Membranes Moist, Normal Oropharynx - Neck Exam Neck exam: Positive for: Normal Inspection. Negative for: Thyromegaly - Respiratory Exam Respiratory Exam: absent: Rales, Rhonchi, Wheezes - Cardiovascular Exam Cardiovascular Exam: +S1, +S2, Systolic Murmur. absent: Rubs - GI/Abdominal Exam GI & Abdominal Exam: Normal Bowel Sounds, Soft. absent: Tenderness - Extremities Exam Extremities exam: Negative for: pedal edema, tenderness - Neurological Exam Neurological exam: Alert, CN II-XII Intact - Skin Skin Exam: Dry, Intact Results - Vital Signs Recent Vital Signs: Last Vital Signs Temp 97.6 F 06/09/17 20:00 Pulse 65 06/10/17 09:59 Resp 16 06/10/17 09:59 BP 178/54 H 06/10/17 10:30 Pulse Ox 93 L 06/10/17 09:00 - Labs Result Diagrams: 06/09/17 06:20 06/09/17 06:20 Assessment & Plan (1) Acute kidney injury Status: Acute (2) CKD (chronic kidney disease) stage 3, GFR 30-59 ml/min Status: Acute (3) Uncontrolled hypertension Status: Acute (4) Anemia Status: Acute (5) DM2 (diabetes mellitus, type 2) Status: Acute (6) Chronic obstructive lung disease Status: Chronic - Assessment and Plan (Free Text) Assessment: Acute kidney injury on chronic kidney disease stage 3 ETHEL likely due to cardio renal syndrome and improved control of bp CKD due to nephrosclerosis, need to exclude renal vascular disease, obstruction , and deposition disease Initial evaluation to include renal ultrasound, ua, and quantification of proteinuria Further testing as needed Continue current bp meds, slowly titrate for bp control Cardiac evaluation in progress Patient is at risk for JUANA, will need prophylaxis if contrast study needed
--- NOTE | 2017-06-10 13:10 | US ---
PROCEDURE: Ultrasound of the Kidneys HISTORY: luis COMPARISON: None available. TECHNIQUE: Sonogram of the kidneys. FINDINGS: RIGHT KIDNEY: Measures: 10.6 cm. Normal in size, contour and echogenicity. No calculus or hydronephrosis. Mid renal cortical cyst, 1.3 x 1.4 x 1.5 cm. No solid mass. LEFT KIDNEY: Measures: 9.4 cm. Normal in size, contour and echogenicity. No calculus or hydronephrosis. Lower pole cortical cyst, 1.3 x 1.4 x 1.6 cm. No solid mass. OTHER FINDINGS: None. IMPRESSION: Simple cortical cyst in each kidney. No calculus or hydronephrosis.
[2017-06-10 16:07] LABS: HEMATOCRIT 29.2 % (34.0-47.0); MEAN CELL VOLUME 69.1 fL (81.0-99.0); MEAN CORPUSCULAR HEMOGLOBIN 21.1 pg (27.0-31.0); MEAN CORPUSCULAR HGB CONC 30.6 g/dL (33.0-37.0); MEAN PLATELET VOLUME 9.9 fL (7.2-11.7); RED CELL DISTRIBUTION WIDTH 17.1 % (11.5-14.5); WHITE BLOOD COUNT 12.9 K/uL (4.8-10.8)
[2017-06-10 16:15] LABS: POTASSIUM 3.4 mmol/L (3.6-5.2)
[2017-06-10 16:18] LABS: ALB/GLOB RATIO 1.5 (1.0-2.1); BILIRUBIN,TOTAL 0.4 mg/dL (0.2-1.3); CALCIUM 8.7 mg/dl (8.6-10.4); TOTAL PROTEIN 6.2 g/dL (6.3-8.3)
[2017-06-10 16:57] LABS: RBC URINE 9 /hpf (0-3); URINE BACTERIA RARE (<OCC); URINE BILIRUBIN NEGATIVE (NEGATIVE); URINE BLOOD 2+ (NEGATIVE); URINE COLOR Yellow (YELLOW); URINE GLUCOSE (UA) NORMAL (Normal); URINE KETONE NEGATIVE (NEGATIVE); URINE LEUKOCYTE ESTERASE NEG Leu/uL (Negative); URINE PROTEIN 1+ mg/dL (NEGATIVE); URINE UROBILINOGEN NORMAL mg/dL (0.2-1.0); WBC URINE < 1 /hpf (0-5)
--- NOTE | 2017-06-10 17:17 | CP.PCM.CON ---
History of Present Illness - History of Present Illness History of Present Illness: CC: Interventional Consult for CAD and abnormal troponin 72 year old female with PMHx of HTN, CAD, CVA, Hearing loss, breast cancer, copd who was admitted to the hospital on 06/04 for chest pain with positive Troponins. She was to have a cardiac catherization procedure done but became hypertensive with BP 226/105 and in respiratory distress; rapid response was called and patient was admitted to ICU. She is now sitting up in bed, comfortable, talking and stating chest pain and dyspnea resolved. Patient denies any fever, headaches, vision changes, chest pain, palpitations, shortness of breath, cough, n/v/d/c, urinary complaints, weakness or tingling. Renal consult called for rise in creatinine. Patient unaware of any renal disease. She denies history of hematuria, proteinuria, nephrolithiasis, or bladder dysfunction. PMH: anemia, anxiety, arthritis, back pain, bronchitis, CAD, CHF, COPD, CVA, dementia, DVT, emphysema, right hip fractures and repair, HTN, HLD, malignancy of breast, left breast 4 years ago in remission, last chemo 3 years ago, osteoporosis, peripheral edema, CKD, schizophrenia, and TIA. PSH: coronary angioplasty with 2 drug eluting stents, Left heart catheterization , Left hip ORIF, toe nail excisions, FH: HTN and DM Social Hx: previous smoker, denies EtOH and drug use. Lives alone Allergies: IV dye and iodine Review of Systems - Review of Systems Systems not reviewed;Unavailable: Dementia - Constitutional Constitutional: absent: Fatigue, Fever, Lethargy - EENT Eyes: absent: Dry Eye, Pain Ears: Decreased Hearing. absent: Ear Pain, Dizziness Nose/Mouth/Throat: absent: Dry Mouth, Dysphagia, Neck Pain - Cardiovascular Cardiovascular: absent: Chest Pain at Rest, Diaphoresis, Dyspnea, Edema - Respiratory Respiratory: absent: Cough, Wheezing - Gastrointestinal Gastrointestinal: absent: Diarrhea, Melena, Nausea - Genitourinary Genitourinary: absent: Flank Pain, Nocturia, Urinary Incontinence, Urinary Hesitance, Urinary Urgency - Musculoskeletal Musculoskeletal: Muscle Cramps, Myalgias. absent: Neck Pain - Integumentary Integumentary: absent: Pruritus, Rash, Skin Ulcer, Swelling - Neurological Neurological: absent: Dizziness, Headaches, Syncope - Psychiatric Psychiatric: Confusion. absent: Depression - Endocrine Endocrine: absent: Polyphagia, Polyuria - Hematologic/Lymphatic Hematologic: absent: Easy Bleeding, Easy Bruising Meds Allergies/Adverse Reactions: Allergies Allergy/AdvReac Type Severity Reaction Status Date / Time iodine Allergy Severe ANAPHYLAXIS Verified 06/04/17 16:34 iv dye Allergy Severe ANAPHYLAXIS Uncoded 06/04/17 16:34 - Medications Medications: Current Medications Aspirin (Ecotrin) 81 mg PO DAILY [facility] Last Admin: 06/10/17 10:29 Dose: 81 mg Azithromycin (Zithromax) 500 mg PO DAILY [facility] Last Admin: 06/10/17 10:30 Dose: 500 mg Clonidine HCl (Catapres) 0.1 mg PO Q8H [facility] Last Admin: 06/10/17 06:22 Dose: 0.1 mg Diltiazem HCl (Cardizem Cd) 120 mg PO DAILY [facility] Last Admin: 06/10/17 10:30 Dose: 120 mg Enoxaparin Sodium (Lovenox) 40 mg SC DAILY [facility] Last Admin: 06/10/17 10:31 Dose: 40 mg Famotidine (Pepcid) 20 mg PO DAILY [facility] Last Admin: 06/10/17 10:29 Dose: 20 mg Furosemide (Lasix) 40 mg IVP DAILY [facility] Last Admin: 06/10/17 10:30 Dose: 40 mg Ceftriaxone Sodium 1 gm/ (Sodium Chloride) 100 mls @ 100 mls/hr IVPB DAILY@ 1100 [facility] Last Admin: 06/09/17 11:07 Dose: 100 mls/hr Nitroglycerin/Dextrose (Nitroglycerin 50 Mg/250 Ml D5w) 50 mg in 250 mls @ 1.5 mls/hr IV .Q24H [facility]; 5 MCG/MIN PRN Reason: Protocol Last Admin: 06/10/17 08:26 Dose: Not Given Metoprolol Succinate (Toprol Xl) 25 mg PO DAILY [facility] Last Admin: 06/10/17 10:30 Dose: 25 mg Morphine Sulfate (Morphine) 2 mg IVP Q4 PRN PRN Reason: Pain, moderate (4-7) Last Admin: 06/09/17 22:19 Dose: 2 mg Nitroglycerin (Nitrostat Sl Tab) 0.4 mg SL Q5M PRN PRN Reason: Pain, moderate (4-7) Ranolazine (Ranexa) 500 mg PO BID [facility] Last Admin: 06/10/17 10:30 Dose: 500 mg Fluticasone/Salmeterol (Advair Diskus 250/50) 1 puff INH RQ12 [facility] Last Admin: 06/10/17 07:13 Dose: 1 puff Tiotropium [place] (Spiriva) 18 mcg INH RQ24 [facility] Last Admin: 06/10/17 07:13 Dose: 18 mcg Tramadol HCl (Ultram) 50 mg PO Q8H [facility] Last Admin: 06/10/17 06:22 Dose: 50 mg Physical Exam - Constitutional Appears: Non-toxic, Chronically Ill - Head Exam Head Exam: ATRAUMATIC, NORMAL INSPECTION - Eye Exam Eye Exam: EOMI, Normal appearance - ENT Exam ENT Exam: Mucous Membranes Moist, Normal Oropharynx - Neck Exam Neck exam: Positive for: Normal Inspection. Negative for: Thyromegaly - Respiratory Exam Respiratory Exam: absent: Rales, Rhonchi, Wheezes - Cardiovascular Exam Cardiovascular Exam: +S1, +S2, Systolic Murmur. absent: Rubs - GI/Abdominal Exam GI & Abdominal Exam: Normal Bowel Sounds, Soft. absent: Tenderness - Extremities Exam Extremities exam: Negative for: pedal edema, tenderness - Neurological Exam Neurological exam: Alert, CN II-XII Intact - Skin Skin Exam: Dry, Intact Past Patient History - Infectious Disease Hx of Infectious Diseases: None - Tetanus Immunizations Tetanus Immunization: Unknown - Past Medical History & Family History Past Medical History?: Yes - Past Social History Smoking Status: Former Smoker - CARDIAC Hx Cardiac Disorders: Yes Hx Congestive Heart Failure: Yes Hx Hypercholesterolemia: Yes Hx Hypertension: Yes - PULMONARY Hx Chronic Obstructive Pulmonary Disease (COPD): Yes - NEUROLOGICAL Hx Neurological Disorder: Yes Hx Dementia: Yes Hx Transient Ischemic Attacks (TIA): Yes - HEENT Hx HEENT Problems: Yes (left eye blurry) 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) Other/Comment: [place] - RENAL Hx Chronic Kidney Disease: Yes - ENDOCRINE/METABOLIC Hx Endocrine Disorders: No - HEMATOLOGICAL/ONCOLOGICAL Hx Blood Disorders: Yes Hx Anemia: Yes Hx Cancer: Yes (Left breast 4years ago) - INTEGUMENTARY Hx Dermatological Problems: No - MUSCULOSKELETAL/RHEUMATOLOGICAL Hx Musculoskeletal Disorders: No Hx Falls: No - GASTROINTESTINAL Hx Gastrointestinal Disorders: Yes Hx Gastroesophageal Reflux: Yes - GENITOURINARY/GYNECOLOGICAL Hx Genitourinary Disorders: Yes Hx Bladder Cancer: Yes - PSYCHIATRIC Hx Psychophysiologic Disorder: Yes Hx Schizophrenia: Yes Hx Substance Use: No - SURGICAL HISTORY Hx Surgeries: Yes Hx Coronary Stent: Yes (07/26/12) Hx Joint Replacement: Yes (right hip replacement 11/06/13) Hx Orthopedic Surgery: Yes - ANESTHESIA Hx Anesthesia: Yes Hx Anesthesia Reactions: No Hx Malignant Hyperthermia: No Has any member of the family had a problem w/ anesthesia?: No Meds Allergies/Adverse Reactions: Allergies Allergy/AdvReac Type Severity Reaction Status Date / Time iodine Allergy Severe ANAPHYLAXIS Verified 06/04/17 16:34 iv dye Allergy Severe ANAPHYLAXIS Uncoded 06/04/17 16:34 - Medications Medications: Current Medications Aspirin (Ecotrin) 81 mg PO DAILY [facility] Last Admin: 06/10/17 10:29 Dose: 81 mg Azithromycin (Zithromax) 500 mg PO DAILY [facility] Clonidine HCl (Catapres) 0.1 mg PO Q8H [facility] Last Admin: 06/10/17 14:29 Dose: 0.1 mg Diltiazem HCl (Cardizem Cd) 120 mg PO DAILY [facility] Last Admin: 06/10/17 10:30 Dose: 120 mg Enoxaparin Sodium (Lovenox) 40 mg SC DAILY [facility] Last Admin: 06/10/17 10:31 Dose: 40 mg Famotidine (Pepcid) 20 mg PO DAILY [facility] Last Admin: 06/10/17 10:29 Dose: 20 mg Furosemide (Lasix) 40 mg IVP DAILY [facility] Last Admin: 06/10/17 10:30 Dose: 40 mg Ceftriaxone Sodium 1 gm/ (Sodium Chloride) 100 mls @ 100 mls/hr IVPB DAILY@ 1100 [facility] Last Admin: 06/10/17 11:00 Dose: 100 mls/hr Nitroglycerin/Dextrose (Nitroglycerin 50 Mg/250 Ml D5w) 50 mg in 250 mls @ 1.5 mls/hr IV .Q24H [facility]; 5 MCG/MIN PRN Reason: Protocol Last Admin: 06/10/17 08:26 Dose: Not Given Metoprolol Succinate (Toprol Xl) 25 mg PO DAILY [facility] Last Admin: 06/10/17 10:30 Dose: 25 mg Morphine Sulfate (Morphine) 2 mg IVP Q4 PRN PRN Reason: Pain, moderate (4-7) Last Admin: 06/09/17 22:19 Dose: 2 mg Nitroglycerin (Nitrostat Sl Tab) 0.4 mg SL Q5M PRN PRN Reason: Pain, moderate (4-7) Ranolazine (Ranexa) 500 mg PO BID [facility] Last Admin: 06/10/17 10:30 Dose: 500 mg Fluticasone/Salmeterol (Advair Diskus 250/50) 1 puff INH RQ12 [facility] Last Admin: 06/10/17 07:13 Dose: 1 puff Tiotropium [place] (Spiriva) 18 mcg INH RQ24 [facility] Last Admin: 06/10/17 07:13 Dose: 18 mcg Tramadol HCl (Ultram) 50 mg PO Q8H [facility] Last Admin: 06/10/17 14:30 Dose: 50 mg Results - Vital Signs Recent Vital Signs: Last Vital Signs Temp 97.6 F 06/09/17 20:00 Pulse 67 06/10/17 14:56 Resp 15 06/10/17 14:56 BP 152/55 H 06/10/17 14:56 Pulse Ox 93 L 06/10/17 09:00 - Labs Result Diagrams: 06/10/17 16:02 06/10/17 16:02 Labs: Laboratory Results - last 24 hr 06/10/17 06/10/17 06/10/17 16:02 16:02 16:46 WBC 12.9 H RBC 4.22 Hgb 8.9 L Hct 29.2 L MCV 69.1 L MCH 21.1 L MCHC 30.6 L RDW 17.1 H Plt Count 253 MPV 9.9 Sodium 137 Potassium 3.4 L Chloride 98 Carbon Dioxide 22 Anion Gap 20 BUN 41 H Creatinine 1.3 H Est GFR ( Amer) 49 Est GFR (Non-Af Amer) 40 Random Glucose 184 H Calcium 8.7 Total Bilirubin 0.4 AST 10 L ALT 21 Alkaline Phosphatase 68 Total Protein 6.2 L Albumin 3.7 Globulin 2.5 Albumin/Globulin Ratio 1.5 Urine Color Yellow Urine Clarity Clear Urine pH 5.0 Ur Specific [place] 1.006 Urine Protein 1+ H Urine Glucose (UA) Normal Urine Ketones Negative Urine Blood 2+ H Urine Nitrate Negative Urine Bilirubin Negative Urine Urobilinogen Normal Ur Leukocyte Esterase Neg Urine WBC (Auto) < 1 Urine RBC (Auto) 9 H Ur Squamous Epith Cells < 1 Urine Bacteria Rare Assessment & Plan - Assessment and Plan (Free Text) Assessment: 72 F with Hx of Complex RCA lesion unintervenable by Percutaneous technique admitted for chest pain and abnormal Trops Also has hx of LAD and L Cx stents COPD HTN Tobacco use During cath recently Patient had a rapid response due to extreme anxiety Will attempt recath Monday Continue all meds
--- NOTE | 2017-06-10 17:24 | CP.PCM.PN ---
Subjective - Date & Time of Evaluation Date of Evaluation: 06/10/17 Time of Evaluation: 15:15 - Subjective Subjective: Patient comfortable No cardiac complaints Objective - Vital Signs/Intake and Output Vital Signs (last 24 hours): Temp Pulse Resp BP Pulse Ox 97.6 F 65 15 156/58 H 93 L 06/09/17 20:00 06/10/17 15:57 06/10/17 15:57 06/10/17 15:57 06/10/17 09:00 Intake and Output: 06/10/17 06/10/17 06:59 18:59 Intake Total 600 900 Output Total 400 1330 Balance 200 -430 - Medications Medications: Current Medications Aspirin (Ecotrin) 81 mg PO DAILY [facility] Last Admin: 06/10/17 10:29 Dose: 81 mg Azithromycin (Zithromax) 500 mg PO DAILY [facility] Clonidine HCl (Catapres) 0.1 mg PO Q8H [facility] Last Admin: 06/10/17 14:29 Dose: 0.1 mg Diltiazem HCl (Cardizem Cd) 120 mg PO DAILY [facility] Last Admin: 06/10/17 10:30 Dose: 120 mg Enoxaparin Sodium (Lovenox) 40 mg SC DAILY [facility] Last Admin: 06/10/17 10:31 Dose: 40 mg Famotidine (Pepcid) 20 mg PO DAILY [facility] Last Admin: 06/10/17 10:29 Dose: 20 mg Furosemide (Lasix) 40 mg IVP DAILY [facility] Last Admin: 06/10/17 10:30 Dose: 40 mg Ceftriaxone Sodium 1 gm/ (Sodium Chloride) 100 mls @ 100 mls/hr IVPB DAILY@ 1100 [facility] Last Admin: 06/10/17 11:00 Dose: 100 mls/hr Nitroglycerin/Dextrose (Nitroglycerin 50 Mg/250 Ml D5w) 50 mg in 250 mls @ 1.5 mls/hr IV .Q24H [facility]; 5 MCG/MIN PRN Reason: Protocol Last Admin: 06/10/17 08:26 Dose: Not Given Metoprolol Succinate (Toprol Xl) 25 mg PO DAILY [facility] Last Admin: 06/10/17 10:30 Dose: 25 mg Morphine Sulfate (Morphine) 2 mg IVP Q4 PRN PRN Reason: Pain, moderate (4-7) Last Admin: 06/09/17 22:19 Dose: 2 mg Nitroglycerin (Nitrostat Sl Tab) 0.4 mg SL Q5M PRN PRN Reason: Pain, moderate (4-7) Ranolazine (Ranexa) 500 mg PO BID [facility] Last Admin: 06/10/17 10:30 Dose: 500 mg Fluticasone/Salmeterol (Advair Diskus 250/50) 1 puff INH RQ12 [facility] Last Admin: 06/10/17 07:13 Dose: 1 puff Tiotropium [place] (Spiriva) 18 mcg INH RQ24 [facility] Last Admin: 06/10/17 07:13 Dose: 18 mcg Tramadol HCl (Ultram) 50 mg PO Q8H [facility] Last Admin: 06/10/17 14:30 Dose: 50 mg - Labs Labs: 06/10/17 16:02 06/10/17 16:02 PT 12.7 SECONDS (9.7-12.2) H 06/08/17 07:16 INR 1.1 06/08/17 07:16 APTT 28 SECONDS (21-34) 06/08/17 07:16 - Head Exam Head Exam: ATRAUMATIC, NORMAL INSPECTION - Eye Exam Eye Exam: EOMI, PERRL - ENT Exam ENT Exam: Mucous Membranes Moist - Neck Exam Neck Exam: Full ROM - Respiratory Exam Respiratory Exam: Clear to Ausculation Bilateral, NORMAL BREATHING PATTERN - Cardiovascular Exam Cardiovascular Exam: REGULAR RHYTHM, +S1, +S2 - Extremities Exam Extremities Exam: Full ROM - Neurological Exam Neurological Exam: Alert, Awake - Psychiatric Exam Psychiatric exam: Normal Mood - Skin Skin Exam: Warm Assessment and Plan - Assessment and Plan (Free Text) Assessment: 1. CAD with abnormal Trops 2. CKD 3. COPD For cath Monday
--- NOTE | 2017-06-10 18:42 | CP.CCUPN ---
CCU Objective - Vital Signs / Intake & Output Vital Signs (Last 4 hours): Vital Signs Pulse Resp BP Pulse Ox 06/10/17 17:20 60 14 146/55 L 90 L 06/10/17 15:57 65 15 156/58 H 06/10/17 14:56 67 15 152/55 H Intake and Output (Last 8hrs): Intake & Output 06/10/17 06/10/17 06/10/17 06:59 14:59 22:59 Intake Total 400 900 Output Total 260 880 450 Balance 140 20 -450 Intake: Intake, IV Amount 100 Right Hand 100 Oral 400 800 Output: Urine 260 880 450 Urethral (Huber) 260 880 450 Other: # Bowel Movements 0 - Physical Exam Pupils: Positive for: PERRL Extroacular Muscles: Positive for: EOMI Mouth: Positive for: Moist Mucous Membranes - Medications Active Medications: Active Medications Generic Name Dose Route Start Last Admin Trade Name Freq PRN Reason Stop Dose Admin Aspirin 81 mg 06/05/17 10:00 06/10/17 10:29 Ecotrin PO 81 mg DAILY [facility] Administration Azithromycin 500 mg 06/11/17 10:00 Zithromax PO DAILY [facility] Clonidine HCl 0.1 mg 06/05/17 06:00 06/10/17 14:29 Catapres PO 0.1 mg Q8H [facility] Administration Diltiazem HCl 120 mg 06/06/17 10:00 06/10/17 10:30 Cardizem Cd PO 120 mg DAILY [facility] Administration Enoxaparin Sodium 40 mg 06/09/17 11:30 06/10/17 10:31 Lovenox SC 40 mg DAILY [facility] Administration Famotidine 20 mg 06/10/17 10:00 06/10/17 10:29 Pepcid PO 20 mg DAILY [facility] Administration Furosemide 40 mg 06/05/17 10:00 06/10/17 10:30 Lasix IVP 40 mg DAILY [facility] Administration Ceftriaxone Sodium 1 gm/ 100 mls @ 100 mls/hr 06/05/17 11:00 06/10/17 11:00 Sodium Chloride IVPB 100 mls/hr DAILY@1100 [facility] Administration Nitroglycerin/Dextrose 50 mg in 250 mls @ 1.5 mls/hr 06/08/17 09:15 06/10/17 08:26 Nitroglycerin 50 Mg/250 Ml D5w IV Not Given .Q24H [facility] Protocol 5 MCG/MIN Metoprolol Succinate 25 mg 06/06/17 10:00 06/10/17 10:30 Toprol Xl PO 25 mg DAILY [facility] Administration Morphine Sulfate 2 mg 06/05/17 09:50 06/09/17 22:19 Morphine IVP 2 mg Q4 PRN Administration Pain, moderate (4-7) Nitroglycerin 0.4 mg 06/05/17 09:42 Nitrostat Sl Tab SL Q5M PRN Pain, moderate (4-7) Ranolazine 500 mg 06/06/17 10:00 06/10/17 10:30 Ranexa PO 500 mg BID [facility] Administration Fluticasone/Salmeterol 1 puff 06/06/17 20:00 06/10/17 07:13 Advair Diskus 250/50 INH 1 puff RQ12 [facility] Administration Tiotropium [place] 18 mcg 06/07/17 08:00 06/10/17 07:13 Spiriva INH 18 mcg RQ24 [facility] Administration Tramadol HCl 50 mg 06/04/17 22:45 06/10/17 14:30 Ultram PO 50 mg Q8H [facility] Administration - Patient Studies Lab Studies: Microbiology Studies 06/08/17 14:58 MRSA Culture (Admit) - Final Nose MRSA NOT DETECTED Lab Studies 06/10/17 06/10/17 06/10/17 Range/Units 16:46 16:02 16:02 WBC 12.9 H (4.8-10.8) K/uL RBC 4.22 (3.80-5.20) Mil/uL Hgb 8.9 L (11.0-16.0) g/dL Hct 29.2 L (34.0-47.0) % MCV 69.1 L (81.0-99.0) fL MCH 21.1 L (27.0-31.0) pg MCHC 30.6 L (33.0-37.0) g/dL RDW 17.1 H (11.5-14.5) % Plt Count 253 (130-400) K/uL MPV 9.9 (7.2-11.7) fL Sodium 137 (132-148) mmol/L Potassium 3.4 L (3.6-5.2) mmol/L Chloride 98 (98-107) mmol/L Carbon Dioxide 22 (22-30) mmol/L Anion Gap 20 (10-20) BUN 41 H (7-17) mg/dL Creatinine 1.3 H (0.7-1.2) MG/DL Est GFR ( Amer) 49 Est GFR (Non-Af Amer) 40 Random Glucose 184 H (65-105) mg/dL Calcium 8.7 (8.6-10.4) mg/dl Total Bilirubin 0.4 (0.2-1.3) mg/dL AST 10 L (14-36) U/L ALT 21 (9-52) U/L Alkaline Phosphatase 68 (38-126) U/L Total Protein 6.2 L (6.3-8.3) g/dL Albumin 3.7 (3.5-5.0) g/dL Globulin 2.5 (2.2-3.9) gm/dL Albumin/Globulin Ratio 1.5 (1.0-2.1) Urine Color Yellow (YELLOW) Urine Clarity Clear (Clear) Urine pH 5.0 (5.0-8.0) Ur Specific [place] 1.006 (1.003-1.030) Urine Protein 1+ H (NEGATIVE) mg/dL Urine Glucose (UA) Normal (Normal) mg/dL Urine Ketones Negative (NEGATIVE) mg/dL Urine Blood 2+ H (NEGATIVE) Urine Nitrate Negative (NEGATIVE) Urine Bilirubin Negative (NEGATIVE) Urine Urobilinogen Normal (0.2-1.0) mg/dL Ur Leukocyte Esterase Neg (Negative) [place]/uL Urine WBC (Auto) < 1 (0-5) /hpf Urine RBC (Auto) 9 H (0-3) /hpf Ur Squamous Epith Cells < 1 (0-5) /hpf Urine Bacteria Rare (<OCC) Laboratory Results - last 24 hr 06/10/17 06/10/17 06/10/17 16:02 16:02 16:46 WBC 12.9 H RBC 4.22 Hgb 8.9 L Hct 29.2 L MCV 69.1 L MCH 21.1 L MCHC 30.6 L RDW 17.1 H Plt Count 253 MPV 9.9 Sodium 137 Potassium 3.4 L Chloride 98 Carbon Dioxide 22 Anion Gap 20 BUN 41 H Creatinine 1.3 H Est GFR ( Amer) 49 Est GFR (Non-Af Amer) 40 Random Glucose 184 H Calcium 8.7 Total Bilirubin 0.4 AST 10 L ALT 21 Alkaline Phosphatase 68 Total Protein 6.2 L Albumin 3.7 Globulin 2.5 Albumin/Globulin Ratio 1.5 Urine Color Yellow Urine Clarity Clear Urine pH 5.0 Ur Specific [place] 1.006 Urine Protein 1+ H Urine Glucose (UA) Normal Urine Ketones Negative Urine Blood 2+ H Urine Nitrate Negative Urine Bilirubin Negative Urine Urobilinogen Normal Ur Leukocyte Esterase Neg Urine WBC (Auto) < 1 Urine RBC (Auto) 9 H Ur Squamous Epith Cells < 1 Urine Bacteria Rare Critical Care Progress Note - Nutrition Nutrition: Nutrition Category Date Time Status Heart Healthy Diet [DIET] Diets 06/09/17 Breakfast Active
[2017-06-10] MEDS ORDERED: Acetylcysteine 20% Inhal Soln (4ml) PO SCH ×2 (19:15)
[2017-06-10] MEDS ORDERED: Potassium Chloride 20 mEq ER Tab PO ONE (19:30)
--- NOTE | 2017-06-11 05:51 | CP.PCM.PN ---
Subjective - Date & Time of Evaluation Date of Evaluation: 06/09/17 Time of Evaluation: 09:10 - Subjective Subjective: more alert No sob Objective - Vital Signs/Intake and Output Vital Signs (last 24 hours): Temp Pulse Resp BP Pulse Ox 98.2 F 58 L 20 163/64 H 95 06/11/17 00:00 06/11/17 01:00 06/11/17 00:00 06/11/17 00:00 06/11/17 00:00 Intake and Output: 06/10/17 06/11/17 18:59 06:59 Intake Total 900 150 Output Total 1330 300 Balance -430 -150 - Medications Medications: Current Medications Acetylcysteine (Acetylcysteine 20%) 3 ml PO BID [facility] Aspirin (Ecotrin) 81 mg PO DAILY [facility] Last Admin: 06/10/17 10:29 Dose: 81 mg Azithromycin (Zithromax) 500 mg PO DAILY [facility] Clonidine HCl (Catapres) 0.1 mg PO Q8H [facility] Last Admin: 06/10/17 21:43 Dose: 0.1 mg Diltiazem HCl (Cardizem Cd) 120 mg PO DAILY [facility] Last Admin: 06/10/17 10:30 Dose: 120 mg Enoxaparin Sodium (Lovenox) 40 mg SC DAILY [facility] Last Admin: 06/10/17 10:31 Dose: 40 mg Famotidine (Pepcid) 20 mg PO DAILY [facility] Last Admin: 06/10/17 10:29 Dose: 20 mg Furosemide (Lasix) 40 mg IVP DAILY [facility] Last Admin: 06/10/17 10:30 Dose: 40 mg Ceftriaxone Sodium 1 gm/ (Sodium Chloride) 100 mls @ 100 mls/hr IVPB DAILY@ 1100 [facility] Last Admin: 06/10/17 11:00 Dose: 100 mls/hr Nitroglycerin/Dextrose (Nitroglycerin 50 Mg/250 Ml D5w) 50 mg in 250 mls @ 1.5 mls/hr IV .Q24H [facility]; 5 MCG/MIN PRN Reason: Protocol Last Admin: 06/10/17 08:26 Dose: Not Given Metoprolol Succinate (Toprol Xl) 25 mg PO DAILY [facility] Last Admin: 06/10/17 10:30 Dose: 25 mg Morphine Sulfate (Morphine) 2 mg IVP Q4 PRN PRN Reason: Pain, moderate (4-7) Last Admin: 06/09/17 22:19 Dose: 2 mg Nitroglycerin (Nitrostat Sl Tab) 0.4 mg SL Q5M PRN PRN Reason: Pain, moderate (4-7) Ranolazine (Ranexa) 500 mg PO BID [facility] Last Admin: 06/10/17 18:50 Dose: 500 mg Fluticasone/Salmeterol (Advair Diskus 250/50) 1 puff INH RQ12 [facility] Last Admin: 06/10/17 20:07 Dose: Not Given Tiotropium [place] (Spiriva) 18 mcg INH RQ24 [facility] Last Admin: 06/10/17 07:13 Dose: 18 mcg Tramadol HCl (Ultram) 50 mg PO Q8H [facility] Last Admin: 06/10/17 22:34 Dose: 50 mg - Labs Labs: 06/10/17 16:02 06/10/17 16:02 PT 12.7 SECONDS (9.7-12.2) H 06/08/17 07:16 INR 1.1 06/08/17 07:16 APTT 28 SECONDS (21-34) 06/08/17 07:16 - Constitutional Appears: Non-toxic - Head Exam Head Exam: NORMAL INSPECTION - Eye Exam Eye Exam: absent: Scleral icterus Pupil Exam: Irregular - ENT Exam ENT Exam: Mucous Membranes Moist - Neck Exam Neck Exam: Full ROM. absent: Lymphadenopathy - Respiratory Exam Respiratory Exam: Clear to Ausculation Bilateral - Cardiovascular Exam Cardiovascular Exam: REGULAR RHYTHM - GI/Abdominal Exam GI & Abdominal Exam: Soft - Extremities Exam Extremities Exam: Pedal Edema, Tenderness. absent: Calf Tenderness - Neurological Exam Neurological Exam: Alert, Oriented x3 Assessment and Plan - Assessment and Plan (Free Text) Assessment: ACS HTN COPD PVD Plan: Case discussed w/ Dr John Brown We will get a second opinion w/ Dr Farris Case discussed w/ Dr Farris Possible cath via radial approach
[2017-06-11] MEDS: Fluticasone-Salmeterol 250-50mcg Diskus INH SCH ×2 (07:53→20:40)
[2017-06-11] MEDS: Tiotropium 18 mcg Cap For Inhalation INH SCH (07:53)
[2017-06-11 08:53] LABS: HEMATOCRIT 29.7 % (34.0-47.0); MEAN CELL VOLUME 68.3 fL (81.0-99.0); MEAN CORPUSCULAR HEMOGLOBIN 21.1 pg (27.0-31.0); MEAN CORPUSCULAR HGB CONC 30.9 g/dL (33.0-37.0); MEAN PLATELET VOLUME 9.8 fL (7.2-11.7); WHITE BLOOD COUNT 8.3 K/uL (4.8-10.8)
[2017-06-11 09:12] LABS: POTASSIUM 4.3 mmol/L (3.6-5.2)
[2017-06-11 09:14] LABS: ALB/GLOB RATIO 1.3 (1.0-2.1); BILIRUBIN,TOTAL 0.4 mg/dL (0.2-1.3); TOTAL PROTEIN 6.1 g/dL (6.3-8.3)
[2017-06-11 09:15] LABS: CALCIUM 9.2 mg/dl (8.6-10.4)
[2017-06-11] MEDS: Ranolazine 500 mg Extended Release Tablets PO SCH ×2 (09:26→17:34)
[2017-06-11] MEDS: Metoprolol Succinate 25 mg XL Tab PO SCH (09:26)
[2017-06-11] MEDS: diltiaZEM 120 mg/24 Hours CD Cap PO SCH (09:26)
--- NOTE | 2017-06-11 10:12 | PN ---
SUBJECTIVE: I saw the patient resting comfortably in bed, room #564, not a complaint. No shortness of breath. No abdominal pain. No chest pain. She is smiling. She is looking at me. She is eating well. She is in good spirits. No complaints. She is waiting for physical therapy to come and walk with her. She asked about going home, I discussed that they could do a cardiac cath tomorrow, she said "that's great," hopefully they can put a stent too in and stop her chest pain from going on; she liked that idea. She wants cardiac cath tomorrow. PHYSICAL EXAMINATION: VITAL SIGNS: She has 98.1 temperature, 54 pulse, 69/62 blood pressure, 20 respiratory rate and 100% O2 sat. HEENT: Head is atraumatic and normocephalic. Throat is moist. NECK: Supple. HEART: Regular rate. LUNGS: Clear to auscultation. ABDOMEN: Soft. EXTREMITIES: No edema. It is the best I have seen her. She is currently on simvastatin, Advair, Cardizem, Catapres, Rocephin, Ecotrin, Lasix, Lovenox, morphine, nitroglycerin, Nitrostat, Pepcid, Ranexa, Spiriva, Toprol, Ultram and Zithromax. She had a renal ultrasound which showed a cyst, but no hydronephrosis. She is being seen by a few doctors. 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 I will order labs for tomorrow. Physical therapy should see her after the cardiac cath. I hope she does very, very well and I will work on getting her discharged. She is here for coronary artery disease, positive [place], pneumonia, weakness. She also became unresponsive and was in intensive care unit. John Brown DO
[2017-06-11] MEDS: Enoxaparin 40 mg Syringe SC SCH (12:00)
[2017-06-11] MEDS: Acetylcysteine 20% Inhal Soln (4ml) PO SCH (12:00)
--- NOTE | 2017-06-11 16:03 | CP.PCM.PN ---
Subjective - Date & Time of Evaluation Date of Evaluation: 06/10/17 Time of Evaluation: 09:10 - Subjective Subjective: no chest pain no sob Objective - Vital Signs/Intake and Output Vital Signs (last 24 hours): Temp Pulse Resp BP Pulse Ox 98.1 F 56 L 18 174/66 H 97 06/11/17 15:35 06/11/17 15:35 06/11/17 15:35 06/11/17 15:35 06/11/17 15:35 Intake and Output: 06/11/17 06/11/17 06:59 18:59 Intake Total 150 580 Output Total 300 Balance -150 580 - Medications Medications: Current Medications Acetylcysteine (Acetylcysteine 20%) 3 ml PO BID [facility] Last Admin: 06/11/17 12:00 Dose: 3 ml Aspirin (Ecotrin) 81 mg PO DAILY [facility] Last Admin: 06/11/17 09:26 Dose: 81 mg Azithromycin (Zithromax) 500 mg PO DAILY [facility] Last Admin: 06/11/17 09:26 Dose: 500 mg Clonidine HCl (Catapres) 0.1 mg PO Q8H [facility] Last Admin: 06/11/17 13:07 Dose: 0.1 mg Diltiazem HCl (Cardizem Cd) 120 mg PO DAILY [facility] Last Admin: 06/11/17 09:26 Dose: 120 mg Enoxaparin Sodium (Lovenox) 40 mg SC DAILY [facility] Last Admin: 06/11/17 12:00 Dose: 40 mg Famotidine (Pepcid) 20 mg PO DAILY [facility] Last Admin: 06/11/17 09:26 Dose: 20 mg Furosemide (Lasix) 40 mg IVP DAILY [facility] Last Admin: 06/11/17 09:28 Dose: 40 mg Ceftriaxone Sodium 1 gm/ (Sodium Chloride) 100 mls @ 100 mls/hr IVPB DAILY@ 1100 [facility] Last Admin: 06/11/17 13:10 Dose: 100 mls/hr Metoprolol Succinate (Toprol Xl) 25 mg PO DAILY [facility] Last Admin: 06/11/17 09:26 Dose: 25 mg Morphine Sulfate (Morphine) 2 mg IVP Q4 PRN PRN Reason: Pain, moderate (4-7) Last Admin: 06/11/17 12:00 Dose: 2 mg Nitroglycerin (Nitrostat Sl Tab) 0.4 mg SL Q5M PRN PRN Reason: Pain, moderate (4-7) Ranolazine (Ranexa) 500 mg PO BID [facility] Last Admin: 06/11/17 09:26 Dose: 500 mg Fluticasone/Salmeterol (Advair Diskus 250/50) 1 puff INH RQ12 [facility] Last Admin: 06/11/17 07:53 Dose: 1 puff Tiotropium [place] (Spiriva) 18 mcg INH RQ24 [facility] Last Admin: 06/11/17 07:53 Dose: 18 mcg Tramadol HCl (Ultram) 50 mg PO Q8H [facility] Last Admin: 06/11/17 05:49 Dose: 50 mg - Labs Labs: 06/11/17 08:48 06/11/17 08:48 PT 12.7 SECONDS (9.7-12.2) H 06/08/17 07:16 INR 1.1 06/08/17 07:16 APTT 28 SECONDS (21-34) 06/08/17 07:16 - Constitutional Appears: No Acute Distress - Head Exam Head Exam: NORMAL INSPECTION - Eye Exam Eye Exam: absent: Scleral icterus - ENT Exam ENT Exam: Mucous Membranes Moist - Neck Exam Neck Exam: Full ROM. absent: Lymphadenopathy - Respiratory Exam Respiratory Exam: Decreased Breath Sounds - Cardiovascular Exam Cardiovascular Exam: REGULAR RHYTHM - GI/Abdominal Exam GI & Abdominal Exam: Soft. absent: Tenderness - Extremities Exam Extremities Exam: absent: Calf Tenderness, Pedal Edema Assessment and Plan - Assessment and Plan (Free Text) Assessment: ACS COPD HTN Renal insufficiency Plan: Pt will be scheduled for cardiac cath via right radial for Monday at [facility] Discussed w/ Dr Farris
--- NOTE | 2017-06-11 16:07 | CP.PCM.PN ---
Subjective - Date & Time of Evaluation Date of Evaluation: 06/11/17 Time of Evaluation: 15:15 - Subjective Subjective: no chest pain lying comfortably Objective - Vital Signs/Intake and Output Vital Signs (last 24 hours): Temp Pulse Resp BP Pulse Ox 98.1 F 56 L 18 174/66 H 97 06/11/17 15:35 06/11/17 15:35 06/11/17 15:35 06/11/17 15:35 06/11/17 15:35 Intake and Output: 06/11/17 06/11/17 06:59 18:59 Intake Total 150 580 Output Total 300 Balance -150 580 - Medications Medications: Current Medications Acetylcysteine (Acetylcysteine 20%) 3 ml PO BID [facility] Last Admin: 06/11/17 12:00 Dose: 3 ml Aspirin (Ecotrin) 81 mg PO DAILY [facility] Last Admin: 06/11/17 09:26 Dose: 81 mg Azithromycin (Zithromax) 500 mg PO DAILY [facility] Last Admin: 06/11/17 09:26 Dose: 500 mg Clonidine HCl (Catapres) 0.1 mg PO Q8H [facility] Last Admin: 06/11/17 13:07 Dose: 0.1 mg Diltiazem HCl (Cardizem Cd) 120 mg PO DAILY [facility] Last Admin: 06/11/17 09:26 Dose: 120 mg Enoxaparin Sodium (Lovenox) 40 mg SC DAILY [facility] Last Admin: 06/11/17 12:00 Dose: 40 mg Famotidine (Pepcid) 20 mg PO DAILY [facility] Last Admin: 06/11/17 09:26 Dose: 20 mg Furosemide (Lasix) 40 mg IVP DAILY [facility] Last Admin: 06/11/17 09:28 Dose: 40 mg Ceftriaxone Sodium 1 gm/ (Sodium Chloride) 100 mls @ 100 mls/hr IVPB DAILY@ 1100 [facility] Last Admin: 06/11/17 13:10 Dose: 100 mls/hr Metoprolol Succinate (Toprol Xl) 25 mg PO DAILY [facility] Last Admin: 06/11/17 09:26 Dose: 25 mg Morphine Sulfate (Morphine) 2 mg IVP Q4 PRN PRN Reason: Pain, moderate (4-7) Last Admin: 06/11/17 12:00 Dose: 2 mg Nitroglycerin (Nitrostat Sl Tab) 0.4 mg SL Q5M PRN PRN Reason: Pain, moderate (4-7) Ranolazine (Ranexa) 500 mg PO BID [facility] Last Admin: 06/11/17 09:26 Dose: 500 mg Fluticasone/Salmeterol (Advair Diskus 250/50) 1 puff INH RQ12 [facility] Last Admin: 06/11/17 07:53 Dose: 1 puff Tiotropium [place] (Spiriva) 18 mcg INH RQ24 [facility] Last Admin: 06/11/17 07:53 Dose: 18 mcg Tramadol HCl (Ultram) 50 mg PO Q8H [facility] Last Admin: 06/11/17 05:49 Dose: 50 mg - Labs Labs: 06/11/17 08:48 06/11/17 08:48 PT 12.7 SECONDS (9.7-12.2) H 06/08/17 07:16 INR 1.1 06/08/17 07:16 APTT 28 SECONDS (21-34) 06/08/17 07:16 - Constitutional Appears: Non-toxic - Head Exam Head Exam: NORMOCEPHALIC - Eye Exam Eye Exam: absent: Scleral icterus - ENT Exam ENT Exam: Mucous Membranes Moist - Neck Exam Neck Exam: Full ROM - Respiratory Exam Respiratory Exam: Decreased Breath Sounds - Cardiovascular Exam Cardiovascular Exam: REGULAR RHYTHM - GI/Abdominal Exam GI & Abdominal Exam: Soft - Extremities Exam Extremities Exam: absent: Calf Tenderness, Pedal Edema Assessment and Plan - Assessment and Plan (Free Text) Assessment: ACS COPD HTN Renal insufficiency Plan: Ok for cath tomorrow via right radial
[2017-06-12] MEDS: Fluticasone-Salmeterol 250-50mcg Diskus INH SCH ×2 (09:16→19:27)
[2017-06-12] MEDS: Tiotropium 18 mcg Cap For Inhalation INH SCH (09:18)
[2017-06-12] MEDS: Acetylcysteine 20% Inhal Soln (4ml) PO SCH (10:30)
[2017-06-12] MEDS: diltiaZEM 120 mg/24 Hours CD Cap PO SCH (10:53)
[2017-06-12] MEDS: Ranolazine 500 mg Extended Release Tablets PO SCH ×2 (10:54→18:55)
[2017-06-12] MEDS: Metoprolol Succinate 25 mg XL Tab PO SCH (10:54)
[2017-06-12] MEDS ORDERED: DiphenhydrAMINE 50 mg/ml Inj ONE (12:01)
[2017-06-12] MEDS ORDERED: Midazolam 2 MG/2 ML VIAL ONE (12:48)
[2017-06-12] MEDS ORDERED: Nitroglycerin 50mg in D5W 50 MG/250 ML BOTTLE IV ONE (13:02)
[2017-06-12] MEDS ORDERED: Iodixanol 320 MG/ML 100 ML BOTTLE IV ONE (13:18)
[2017-06-12] MEDS ORDERED: Lidocaine 4% (Laryng-O-Jet) Kit MM ONE (13:19)
--- NOTE | 2017-06-12 13:58 | CP.PCM.PN ---
Subjective - Date & Time of Evaluation Date of Evaluation: 06/12/17 Time of Evaluation: 13:56 - Subjective Subjective: Undergoing cardiac cath HTN still uncontrolled Renal function has been stable Objective - Vital Signs/Intake and Output Vital Signs (last 24 hours): Temp Pulse Resp BP Pulse Ox 98.1 F 58 L 20 162/67 H 100 06/12/17 08:00 06/12/17 08:00 06/12/17 08:00 06/12/17 10:53 06/12/17 08:00 - Medications Medications: Current Medications Acetylcysteine (Acetylcysteine 20%) 3 ml PO BID [facility] Last Admin: 06/11/17 12:00 Dose: 3 ml Aspirin (Ecotrin) 81 mg PO DAILY [facility] Last Admin: 06/12/17 10:54 Dose: 81 mg Azithromycin (Zithromax) 500 mg PO DAILY [facility] Last Admin: 06/12/17 10:54 Dose: 500 mg Clonidine HCl (Catapres) 0.1 mg PO Q8H [facility] Last Admin: 06/12/17 05:41 Dose: 0.1 mg Diltiazem HCl (Cardizem Cd) 120 mg PO DAILY [facility] Last Admin: 06/12/17 10:53 Dose: 120 mg Enoxaparin Sodium (Lovenox) 40 mg SC DAILY [facility] Last Admin: 06/11/17 12:00 Dose: 40 mg Famotidine (Pepcid) 20 mg PO DAILY [facility] Last Admin: 06/12/17 10:54 Dose: 20 mg Furosemide (Lasix) 40 mg IVP DAILY [facility] Last Admin: 06/12/17 10:53 Dose: 40 mg Ceftriaxone Sodium 1 gm/ (Sodium Chloride) 100 mls @ 100 mls/hr IVPB DAILY@ 1100 [facility] Last Admin: 06/12/17 11:00 Dose: Not Given Losartan Potassium (Cozaar) 100 mg PO DAILY [facility] Last Admin: 06/12/17 10:54 Dose: 100 mg Metoprolol Succinate (Toprol Xl) 25 mg PO DAILY [facility] Last Admin: 06/12/17 10:54 Dose: 25 mg Morphine Sulfate (Morphine) 2 mg IVP Q4 PRN PRN Reason: Pain, moderate (4-7) Last Admin: 06/11/17 22:46 Dose: 2 mg Nitroglycerin (Nitrostat Sl Tab) 0.4 mg SL Q5M PRN PRN Reason: Pain, moderate (4-7) Ranolazine (Ranexa) 500 mg PO BID [facility] Last Admin: 06/12/17 10:54 Dose: 500 mg Fluticasone/Salmeterol (Advair Diskus 250/50) 1 puff INH RQ12 [facility] Last Admin: 06/12/17 09:16 Dose: 1 puff Tiotropium [place] (Spiriva) 18 mcg INH RQ24 [facility] Last Admin: 06/12/17 09:18 Dose: 18 mcg Tramadol HCl (Ultram) 50 mg PO Q8H [facility] Last Admin: 06/12/17 07:55 Dose: 50 mg - Labs Labs: 06/11/17 08:48 06/11/17 08:48 PT 12.7 SECONDS (9.7-12.2) H 06/08/17 07:16 INR 1.1 06/08/17 07:16 APTT 28 SECONDS (21-34) 06/08/17 07:16 - Constitutional Appears: No Acute Distress, Chronically Ill - Head Exam Head Exam: ATRAUMATIC, NORMAL INSPECTION - Neck Exam Neck Exam: Normal Inspection. absent: Tenderness - Respiratory Exam Respiratory Exam: Clear to Ausculation Bilateral, NORMAL BREATHING PATTERN - Cardiovascular Exam Cardiovascular Exam: REGULAR RHYTHM, +S1 - GI/Abdominal Exam GI & Abdominal Exam: Soft. absent: Tenderness - Neurological Exam Neurological Exam: Alert, CN II-XII Intact Assessment and Plan (1) CKD (chronic kidney disease) stage 3, GFR 30-59 ml/min Status: Acute (2) Uncontrolled hypertension Status: Acute (3) Chest pain Status: Acute - Assessment and Plan (Free Text) Plan: Increase BP meds await cardiac cath results follow up post cath
--- NOTE | 2017-06-12 15:42 | CP.PCM.PN ---
Subjective - Date & Time of Evaluation Date of Evaluation: 06/12/17 Time of Evaluation: 15:40 - Subjective Subjective: Patient s/p Transradial cath 1. L Main: Patent 2. LAD: Mid stent patent, Distl LAD diffuse disease 3. L Cx: Moderate disease, Prior stent patent 4. RCA: Complex, Calcific and tortuous md RCA disease This RCA lesion is Chronic > 3years old Due to the risk of intervention recommend aggressive medical therapy for now If the pain is severe and the patient is willing to take the risk will intervene D/W Dr. Tejada Objective - Vital Signs/Intake and Output Vital Signs (last 24 hours): Temp Pulse Resp BP Pulse Ox 98.1 F 58 L 20 162/67 H 100 06/12/17 08:00 06/12/17 08:00 06/12/17 08:00 06/12/17 10:53 06/12/17 08:00 - Medications Medications: Current Medications Acetylcysteine (Acetylcysteine 20%) 3 ml PO BID [facility] Last Admin: 06/11/17 12:00 Dose: 3 ml Aspirin (Ecotrin) 81 mg PO DAILY [facility] Last Admin: 06/12/17 10:54 Dose: 81 mg Azithromycin (Zithromax) 500 mg PO DAILY [facility] Last Admin: 06/12/17 10:54 Dose: 500 mg Clonidine HCl (Catapres) 0.1 mg PO Q8H [facility] Last Admin: 06/12/17 05:41 Dose: 0.1 mg Diltiazem HCl (Cardizem Cd) 120 mg PO DAILY [facility] Last Admin: 06/12/17 10:53 Dose: 120 mg Enoxaparin Sodium (Lovenox) 40 mg SC DAILY [facility] Last Admin: 06/11/17 12:00 Dose: 40 mg Famotidine (Pepcid) 20 mg PO DAILY [facility] Last Admin: 06/12/17 10:54 Dose: 20 mg Furosemide (Lasix) 40 mg IVP DAILY [facility] Last Admin: 06/12/17 10:53 Dose: 40 mg Hydralazine HCl (Apresoline) 25 mg PO QID [facility] Ceftriaxone Sodium 1 gm/ (Sodium Chloride) 100 mls @ 100 mls/hr IVPB DAILY@ 1100 [facility] Last Admin: 06/12/17 11:00 Dose: Not Given Losartan Potassium (Cozaar) 100 mg PO DAILY [facility] Last Admin: 06/12/17 10:54 Dose: 100 mg Metoprolol Succinate (Toprol Xl) 25 mg PO DAILY [facility] Last Admin: 06/12/17 10:54 Dose: 25 mg Morphine Sulfate (Morphine) 2 mg IVP Q4 PRN PRN Reason: Pain, moderate (4-7) Last Admin: 06/11/17 22:46 Dose: 2 mg Nitroglycerin (Nitrostat Sl Tab) 0.4 mg SL Q5M PRN PRN Reason: Pain, moderate (4-7) Ranolazine (Ranexa) 500 mg PO BID [facility] Last Admin: 06/12/17 10:54 Dose: 500 mg Fluticasone/Salmeterol (Advair Diskus 250/50) 1 puff INH RQ12 [facility] Last Admin: 06/12/17 09:16 Dose: 1 puff Tiotropium [place] (Spiriva) 18 mcg INH RQ24 [facility] Last Admin: 06/12/17 09:18 Dose: 18 mcg Tramadol HCl (Ultram) 50 mg PO Q8H [facility] Last Admin: 06/12/17 07:55 Dose: 50 mg - Labs Labs: 06/11/17 08:48 06/11/17 08:48 PT 12.7 SECONDS (9.7-12.2) H 06/08/17 07:16 INR 1.1 06/08/17 07:16 APTT 28 SECONDS (21-34) 06/08/17 07:16 - Head Exam Head Exam: ATRAUMATIC, NORMAL INSPECTION - Eye Exam Eye Exam: EOMI, PERRL Pupil Exam: NORMAL ACCOMODATION - ENT Exam ENT Exam: Mucous Membranes Moist - Neck Exam Neck Exam: Full ROM, Normal Inspection - Respiratory Exam Respiratory Exam: Clear to Ausculation Bilateral, NORMAL BREATHING PATTERN - Cardiovascular Exam Cardiovascular Exam: +S1, +S2 - GI/Abdominal Exam GI & Abdominal Exam: Soft, Normal Bowel Sounds - Neurological Exam Neurological Exam: Alert, Awake - Psychiatric Exam Psychiatric exam: Normal Mood - Skin Skin Exam: Warm Assessment and Plan - Assessment and Plan (Free Text) Assessment: CAD 1. L Main: Patent 2. LAD: Mid stent patent, Distl LAD diffuse disease 3. L Cx: Moderate disease, Prior stent patent 4. RCA: Complex, Calcific and tortuous md RCA disease This RCA lesion is Chronic > 3years old Due to the risk of intervention recommend aggressive medical therapy for now If the pain is severe and the patient is willing to take the risk will intervene D/W Dr. Tejada
[2017-06-12] MEDS ORDERED: Sodium Chloride 0.9% 500 ML IV SCH (16:30)
--- NOTE | 2017-06-12 20:47 | PN ---
DATE: 06/12/2017 I saw Kathy this morning in room #552. She had to have her room changed last night. She slept fairly well, comfortable this morning. She is ready for cardiac catheterization and hoping it goes well. If she needs a stent, she will have to stay overnight, otherwise possibility of discharge, maybe to subacute rehab, depending on what Physical Therapy says. She refused the blood this morning. Yesterday's blood, she had a 8.3 white count, 9.2 hemoglobin, and 248 platelets. She had a 140 sodium, potassium 4.3, BUN 36, and creatinine 1.2 better, 93 sugar, calcium is 9.2. Total bilirubin is 0.4, AST is 10, ALT is 22, alkaline phosphatase is 50, total protein is 6.1, . She is going to be seen by Cardiology today and have a cardiac catheterization. If she needs stents, which I think she might, she will be staying overnight until tomorrow, otherwise possibility of going out today for maybe subacute rehab or home with physical therapy depending on what Physical Therapy says. She has acute coronary syndrome, COPD, hypertension, renal insufficiency, pneumonia and NH. She is in good spirits this morning, hopefully she will do very well. She refused her labs. We will check her labs tomorrow if she is still here and physical therapy. John Brown DO MTDD
--- NOTE | 2017-06-13 07:31 | DS ---
HISTORY OF PRESENT ILLNESS: I saw the patient resting comfortably in bed today. She slept fairly well. She tells me she is weak, and although she needs physical therapy, she would like to go home, had a long discussion with the nurse present. She finally agreed to go to physical therapy at [facility] before she goes home. PHYSICAL EXAMINATION: VITAL SIGNS: 98.4 temp, 79 pulse, 162/56 blood pressure, 20 respiratory rate, 96% O2 saturation on nasal cannula. HEENT: Head is atraumatic, normocephalic. HEART: Regular rate. LUNGS: Decreased breath sounds, but clear. ABDOMEN: Soft. EXTREMITIES: No edema. She is weak in her legs and needs help with walking. She had a cardiac cath here today and she told me she had a stent placed and she is doing better. MEDICATIONS: She is on acetylcysteine, Advair, Apresoline, Cardizem, Catapres, Rocephin for three more days. Cozaar, Ecotrin, and Lasix, we will change to p.o. Lovenox will continue. We will stop the morphine. Nitrostat, Pepcid, Ranexa, stop the IV fluids. Spiriva, Toprol, Ultram, and Zithromax, which is p.o. already. ASSESSMENT AND PLAN: Hopefully, we can send her to [facility] this afternoon. She was here for a few reasons, coronary artery disease, chronic obstructive pulmonary disease, pneumonia, congestive heart failure status post stent placement. John Brown DO
[2017-06-13] MEDS: Fluticasone-Salmeterol 250-50mcg Diskus INH SCH ×2 (07:39→21:57)
[2017-06-13] MEDS: Tiotropium 18 mcg Cap For Inhalation INH SCH (07:40)
[2017-06-13 08:37] LABS: HEMATOCRIT 29.7 % (34.0-47.0); MEAN CELL VOLUME 68.5 fL (81.0-99.0); MEAN CORPUSCULAR HEMOGLOBIN 21.5 pg (27.0-31.0); MEAN CORPUSCULAR HGB CONC 31.4 g/dL (33.0-37.0); MEAN PLATELET VOLUME 10.4 fL (7.2-11.7); RED CELL DISTRIBUTION WIDTH 17.1 % (11.5-14.5); WHITE BLOOD COUNT 10.9 K/uL (4.8-10.8)
[2017-06-13 08:42] LABS: POTASSIUM 4.9 mmol/L (3.6-5.2)
[2017-06-13 08:44] LABS: ALB/GLOB RATIO 1.4 (1.0-2.1); BILIRUBIN,TOTAL 0.4 mg/dL (0.2-1.3); TOTAL PROTEIN 6.2 g/dL (6.3-8.3)
[2017-06-13 08:45] LABS: CALCIUM 9.4 mg/dl (8.6-10.4)
[2017-06-13] MEDS: Ranolazine 500 mg Extended Release Tablets PO SCH ×2 (09:35→17:04)
[2017-06-13] MEDS: diltiaZEM 120 mg/24 Hours CD Cap PO SCH (09:35)
[2017-06-13] MEDS: Metoprolol Succinate 25 mg XL Tab PO SCH (09:35)
[2017-06-13] MEDS: Acetylcysteine 20% Inhal Soln (4ml) PO SCH ×2 (10:30→17:05)
--- NOTE | 2017-06-13 11:22 | CP.PCM.PN ---
Subjective - Date & Time of Evaluation Date of Evaluation: 06/13/17 Time of Evaluation: 11:21 - Subjective Subjective: seen and examined c/o chronic arthritic pain awaiting rehab transfer high bp noted denies any headache / chest pain / palpitations Objective - Vital Signs/Intake and Output Vital Signs (last 24 hours): Temp Pulse Resp BP Pulse Ox 97.5 F L 73 19 182/71 H 94 L 06/13/17 07:56 06/13/17 07:56 06/13/17 07:56 06/13/17 09:35 06/13/17 07:56 - Medications Medications: Current Medications Acetylcysteine (Acetylcysteine 20%) 3 ml PO BID [facility] Last Admin: 06/11/17 12:00 Dose: 3 ml Aspirin (Ecotrin) 81 mg PO DAILY [facility] Last Admin: 06/13/17 09:35 Dose: 81 mg Azithromycin (Zithromax) 500 mg PO DAILY [facility] Last Admin: 06/13/17 09:34 Dose: 500 mg Clonidine HCl (Catapres) 0.1 mg PO Q8H [facility] Last Admin: 06/13/17 06:34 Dose: 0.1 mg Diltiazem HCl (Cardizem Cd) 120 mg PO DAILY [facility] Last Admin: 06/13/17 09:35 Dose: 120 mg Enoxaparin Sodium (Lovenox) 40 mg SC DAILY [facility] Last Admin: 06/11/17 12:00 Dose: 40 mg Famotidine (Pepcid) 20 mg PO DAILY [facility] Last Admin: 06/13/17 09:35 Dose: 20 mg Hydralazine HCl (Apresoline) 75 mg PO TID [facility] Ceftriaxone Sodium 1 gm/ (Sodium Chloride) 100 mls @ 100 mls/hr IVPB DAILY@ 1100 [facility] Last Admin: 06/12/17 11:00 Dose: Not Given Losartan Potassium (Cozaar) 100 mg PO DAILY [facility] Last Admin: 06/13/17 09:35 Dose: 100 mg Metoprolol Succinate (Toprol Xl) 25 mg PO DAILY [facility] Last Admin: 06/13/17 09:35 Dose: 25 mg Morphine Sulfate (Morphine) 2 mg IVP Q4 PRN PRN Reason: Pain, moderate (4-7) Last Admin: 06/13/17 04:28 Dose: 2 mg Nitroglycerin (Nitrostat Sl Tab) 0.4 mg SL Q5M PRN PRN Reason: Pain, moderate (4-7) Ranolazine (Ranexa) 500 mg PO BID [facility] Last Admin: 06/13/17 09:35 Dose: 500 mg Fluticasone/Salmeterol (Advair Diskus 250/50) 1 puff INH RQ12 [facility] Last Admin: 06/13/17 07:39 Dose: Not Given Tiotropium [place] (Spiriva) 18 mcg INH RQ24 [facility] Last Admin: 06/13/17 07:40 Dose: Not Given Tramadol HCl (Ultram) 50 mg PO Q8H [facility] Last Admin: 06/13/17 06:34 Dose: 50 mg - Labs Labs: 06/13/17 08:19 06/13/17 08:19 PT 12.7 SECONDS (9.7-12.2) H 06/08/17 07:16 INR 1.1 06/08/17 07:16 APTT 28 SECONDS (21-34) 06/08/17 07:16 - Constitutional Appears: No Acute Distress, Cachectic, Chronically Ill - Head Exam Head Exam: NORMAL INSPECTION - Eye Exam Eye Exam: Normal appearance - ENT Exam ENT Exam: Mucous Membranes Moist, Normal Exam - Neck Exam Neck Exam: Normal Inspection - Respiratory Exam Respiratory Exam: Clear to Ausculation Bilateral - Cardiovascular Exam Cardiovascular Exam: REGULAR RHYTHM, RRR - GI/Abdominal Exam GI & Abdominal Exam: Distended, Soft, Normal Bowel Sounds - Extremities Exam Extremities Exam: Normal Inspection Assessment and Plan (1) Acute kidney injury Status: Acute (2) CKD (chronic kidney disease) stage 3, GFR 30-59 ml/min Status: Acute (3) Chest pain Status: Acute (4) Uncontrolled hypertension Status: Acute - Assessment and Plan (Free Text) Assessment: increase hydralazine dose dc iv lasix
--- NOTE | 2017-06-13 14:34 | PCM.HF ---
Heart Failure Core Measure - Heart Failure Ejection Fraction: 40 % or Greater AGGIE Inhibitor Prescribed: No Contraindication/Reason for not providing: on ARB Beta-Jose Prescribed: Metoprolol Succinate Angiotensin II Receptor Jose Prescribed: Yes AnticoagulationTherapy for Atrial Fibrillation/Atrialflutter: No Contraindication/Reason for not providing: no hx of afib Aldosterone Antagonist Prescribed: No Contraindication/Reason for not providing: ef>45 Hydralazine Nitrate Prescribed: Yes Implantable Cardioverter Defibrillator Therapy: No Contraindication/Reason for not providing: ef>45 Cardiac Resynchronization Therapy Prescribed: No Contraindication/Reason for not providing: ef.45 - Follow up Will be discharged to: Care Home Facility ([facility]) Follow Up Date (must be within 7 days from discharge): 06/15/17 Follow Up Time: 09:00
[2017-06-14] VITALS: RESP 18
[2017-06-14 08:52] VITALS: TEMP 97.8; O2SAT 97
[2017-06-14] MEDS: Ranolazine 500 mg Extended Release Tablets PO SCH (10:37)
[2017-06-14] MEDS: Metoprolol Succinate 25 mg XL Tab PO SCH (10:37)
[2017-06-14] MEDS: Acetylcysteine 20% Inhal Soln (4ml) PO SCH (10:37)
[2017-06-14] MEDS: diltiaZEM 120 mg/24 Hours CD Cap PO SCH (10:37)
[2017-06-14] MEDS: Fluticasone-Salmeterol 250-50mcg Diskus INH SCH (11:12)
[2017-06-14] MEDS: Tiotropium 18 mcg Cap For Inhalation INH SCH (11:13)
[2017-06-14 13:35] VITALS: BP 161/64; PULSE 61
--- NOTE | 2017-06-14 19:02 | DS ---
HISTORY OF PRESENT ILLNESS: She was not able to go to [facility] yesterday. The hospitalist told there have not been any bed, they are hoping for today. MEDICATIONS: She is currently on acetylcysteine, Advair, Apresoline, Cardizem, Catapres, ceftriaxone, Cozaar, Ecotrin, Lovenox, Nitrostat, Pepcid, Ranexa, Spiriva, Toprol, Ultram, and Zithromax. PHYSICAL EXAMINATION: VITAL SIGNS: Temperature 98.3, pulse 60, blood pressure 138/60, respiratory rate 20, O2 saturation 97% on room air. LABORATORY DATA: Last laboratory was on the , she had a 10.9 white count, 9.3 hemoglobin, 275 platelets. She had a 141 sodium, potassium 4.9, BUN 29, creatinine 1.2, GFR is 44, sugar is 158, calcium is 9.4. Total bilirubin is 0.4, AST is 9, ALT 16, alkaline phosphatase is 61, total protein 6.2. We are awaiting for discharge to [facility] with subacute rehab before she goes home. She has chronic arthritis pain. She had a CAD with cardiac stents, acute kidney injury which is improving, hypertension, and hopefully, she will do well over there. I will see her over there tomorrow. Hopefully, she will be discharged today. John Brown DO
--- NOTE | 2017-06-18 10:41 | CARDCATH ---
PROCEDURE DATE: 06/12/2017 PROCEDURES: 1. Left heart catheterization. 2. Coronary angiogram. REFERRING PHYSICIANS: 1. John Brown DO 2. Stephany Tejada MD PERFORMING PHYSICIAN: Samson Farris MD CLINICAL INDICATIONS: 1. Angina. 2. History of coronary artery disease, status post stent placement. 3. Hypertension. 4. Hyperlipidemia. PROCEDURE: After informed consent, the patient was prepped and draped in the usual sterile fashion. A 2% lidocaine was given in the right wrist for local anesthesia. Using micropuncture technique, 6-Japanese sheath was introduced into right radial artery. Using the usual diagnostic catheters, left heart catheterization and coronary angiogram were performed. The patient tolerated the procedure well. FINDINGS: 1. Left main coronary artery looks patent. 2. Prior LAD stent is patent. Large diagonal branch has a 70% stenosis. 3. Prior left circumflex stent is patent. Obtuse marginal branches are patent. 4. Right coronary artery is calcific and tortuous. Mid right coronary artery has a complex, calcific, tortuous 80% to 90% long stenosis. PDA and PLV branches are patent. 5. LV ejection fraction is approximately 55%. EDP 14. No gradient across the aortic valve. IMPRESSION: 1. Coronary artery disease as described above. 2. Due to complexity of the right coronary artery disease recommend aggressive medical management. If the patient continues to have symptoms, recommend complex intervention of the right coronary artery. Samson Farris MD
== END 2017-06-14 14:23 | DRG 280 ==
LOC: C.ER 16:21 → C.9E 20:46 → C.6T 21:26 → OBSVTOIN 06-05 11:27 → C.9I 06-08 08:49 → C.5S 06-10 21:10
PROVIDERS: ADMIT Family Medicine; ATTEND Family Medicine
PROC: B50BYZZ Plain Radiography of Right Lower Extremity Veins using Other Contrast (ICD-10-PCS; principal; 2017-06-08 07:30)
PROC: 4A023N7 Measurement of Cardiac Sampling and Pressure, Left Heart, Percutaneous Approach (ICD-10-PCS; 2017-06-12)
PROC: B201YZZ Plain Radiography of Multiple Coronary Arteries using Other Contrast (ICD-10-PCS; 2017-06-12)
PROC: B205YZZ Plain Radiography of Left Heart using Other Contrast (ICD-10-PCS; 2017-06-12)
DX: I21.4 Non-ST elevation (NSTEMI) myocardial infarction (principal); J18.9 Pneumonia, unspecified organism; N17.9 Acute kidney failure, unspecified; I13.0 Hypertensive heart and chronic kidney disease with heart failure and stage 1 through stage 4 chronic kidney disease, or unspecified chronic kidney disease; F03.90 Unspecified dementia, unspecified severity, without behavioral disturbance, psychotic disturbance, mood disturbance, and anxiety; Z99.81 Dependence on supplemental oxygen; E11.22 Type 2 diabetes mellitus with diabetic chronic kidney disease; J44.0 Chronic obstructive pulmonary disease with (acute) lower respiratory infection; I16.1 Hypertensive emergency; N18.3 Chronic kidney disease, stage 3 (moderate); F20.9 Schizophrenia, unspecified; Z86.73 Personal history of transient ischemic attack (TIA), and cerebral infarction without residual deficits; E78.00 Pure hypercholesterolemia, unspecified; Z85.3 Personal history of malignant neoplasm of breast; Z86.718 Personal history of other venous thrombosis and embolism; Z95.5 Presence of coronary angioplasty implant and graft; F17.210 Nicotine dependence, cigarettes, uncomplicated; Z96.641 Presence of right artificial hip joint; I25.10 Atherosclerotic heart disease of native coronary artery without angina pectoris; H54.41 Blindness, right eye, normal vision left eye; Z51.5 Encounter for palliative care; Z66 Do not resuscitate; K21.9 Gastro-esophageal reflux disease without esophagitis; I70.209 Unspecified atherosclerosis of native arteries of extremities, unspecified extremity

== ENCOUNTER 2017-06-21 14:40 | Emergency (ER) | payer MEDICAID, MEDICARE ==
[2017-06-21 14:42] VITALS: BMI 17.2
[2017-06-21 14:46] VITALS: TEMP 97.8; O2SAT 97
--- NOTE | 2017-06-21 15:09 | C.PDOC ---
History Of Present Illness 72 year old female was brought to the ED by EMS with complaints of left leg pain status post fall two hours before arrival. She denies weakness, numbness, or other complaints at this time. Time Seen by Provider: 06/21/17 14:43 Chief Complaint (Nursing): Lower Extremity Problem/Injury History Per: Patient, EMS History/Exam Limitations: no limitations Onset/Duration Of Symptoms: Hrs, Waxing/Waning Recent travel outside of the [place]: No - Knee Description Of Injury: Fell Past Medical History Reviewed: Historical Data, Nursing Documentation, Vital Signs Vital Signs: Last Vital Signs Temp 97.8 F 06/21/17 14:42 Pulse 98 H 06/21/17 16:45 Resp 20 06/21/17 16:45 BP 162/66 H 06/21/17 16:45 Pulse Ox 97 06/21/17 17:21 - Medical History PMH: Anemia, Anxiety, Arthritis, Back Problems, Bronchitis, CAD, CHF, COPD, CVA , Dementia, Deep Vein Thrombosis, Emphysema, Fractures (Right Hip), HTN, Hypercholesterolemia, Hyperlipidemia, Malignancy (Breast CA left 4 yrs ago, patient in remission, last chemo was 3 years ago), Osteoporosis, Peripheral Edema, Chronic Kidney Disease, Schizophrenia, TIA Surgical History: Coronary Stent (07/26/12) - [facility] Procedures ANGIOPLASTY OF OTHER NON-CORONARY VESSEL(S) (07/26/12) CONTR CEREBR ARTERIOGRAM (06/25/15) CONTRAST AORTOGRAM (07/26/12) DILATION OF 2 COR ART WITH DRUG-ELUT INTRALUM, PERC APPROACH (10/27/15) DX ULTRASOUND-HEART (04/04/15) EXCISION OF TOE NAIL, EXTERNAL APPROACH (09/17/16) EXERCISE TREATMENT OF MUSCULOSK WHOLE USING ASSIST EQUIPMENT (09/17/16) FLUOROSCOPY OF LEFT HEART USING LOW OSMOLAR CONTRAST (07/06/16) FLUOROSCOPY OF MULT COR ART USING L OSM CONTRAST (07/06/16) GAIT TRAINING/AMBULAT TREATMENT USING ASSIST EQUIPMENT (09/17/16) GROOMING/PERSONAL HYGIENE TREATMENT USING ASSIST EQUIPMENT (09/17/16) INSEJ OF DRUG-ELUTING STENT(S) OF OTH PERIPHERAL VESSEL(S) (07/26/12) INSERTION OF TWO VASCULAR STENTS (07/26/12) INSPECTION OF UPPER INTESTINAL TRACT, ENDO (10/31/16) MEASURE OF CARDIAC SAMPL & PRESSURE, L HEART, PERC APPROACH (06/05/17) PACKED CELL TRANSFUSION (11/06/13) PARTIAL HIP REPLACEMENT (11/06/13) PLAIN RADIOGRAPHY OF LEFT HEART USING LOW OSMOLAR CONTRAST (10/27/15) PLAIN RADIOGRAPHY OF LEFT HEART USING OTHER CONTRAST (06/05/17) PLAIN RADIOGRAPHY OF MULT COR ART USING L OSM CONTRAST (10/27/15) PLAIN RADIOGRAPHY OF MULT COR ART USING OTH CONTRAST (06/05/17) PLAIN RADIOGRAPHY OF R LOW EXTREM VEIN USING OTH CONTRAST (06/05/17) PROCEDURE ON FOUR OR MORE VESSELS (07/26/12) REMOVAL OF VAD FROM UP EXTREM SUBCU/FASCIA, PRESIDENT EDUCATIONAL INSTITUTION APPROACH (07/06/15) Family History: States: Unknown Family Hx - Social History Hx Tobacco Use: Yes Hx Alcohol Use: No Hx Substance Use: No - Immunization History Hx Tetanus Toxoid Vaccination: No Hx Influenza Vaccination: No Hx Pneumococcal Vaccination: No Review Of Systems Constitutional: Negative for: Fever, Chills Cardiovascular: Negative for: Chest Pain Respiratory: Negative for: Shortness of Breath Musculoskeletal: Positive for: Leg Pain (left knee pain ). Negative for: Neck Pain, Foot Pain Neurological: Negative for: Weakness, Numbness Physical Exam - Physical Exam Appears: Non-toxic, No Acute Distress, Agitated, Other (patient is elderly and frail ) Skin: Warm, Dry, No Rash, No Ecchymosis Head: Atraumatic, Normacephalic Eye(s): bilateral: Normal Inspection Oral Mucosa: Moist Neck: Normal ROM Chest: Symmetrical, No Deformity Cardiovascular: Rhythm Regular, No Murmur Extremity: No Normal ROM (inability to fully extend left knee, secondary to pain ), Tenderness (tender with minimal palpation to the left knee ), No Calf Tenderness, Capillary Refill (good capillary refill, less than two seconds ), No Deformity, No Swelling, Other (mild swelling to lateral ankle, normal ROM) Pulses: Left Dorsalis Pedis: Normal, Right Dorsalis Pedis: Normal Neurological/Psych: Oriented x3 ED Course And Treatment O2 Sat by Pulse Oximetry: 97 (room air ) Progress Note: Left knee X-ray was ordered and patient was given morphine. Medical Decision Making Medical Decision Making: Impression: fall and leg pain Plan: * Xray of knee and ankle * Morphine IM Progress: Xrays reviewed showing mild soft tissue swelling, ostepenia changes, no fractures. Patient informed of xray findings and reports pain mildly improved. 1550 Dr Brown calls ED to inform us patient is to return to [facility] rehab , can arrange for transportation. RN was informed and will arrange for transportation Spoke with [facility] who reports patient signed out AMA this morning and cannot return Contact Dr Brown who is aware and reports patient can be discharge home, if stable. Patient does not meet criteria for 3 night admission Disposition Counseled Patient/Family Regarding: Diagnosis, Need For Followup - Disposition Referrals: Dawit Holt III, MD [Staff Provider] - John Brown DO [Staff Provider] - Disposition: HOME/ ROUTINE Disposition Time: 15:55 Condition: STABLE Additional Instructions: Your xrays were normal, no fractures. Please apply ice to area 15 minutes three times a day. Take Motrin or your Tramadol as needed for pain every 6 hours, with food to not upset stomach. Follow up with orthopedic if pain persists over one week. Instructions: Contusion in Adults (DC) Forms: [employer] (Mohawk) - POA Present On Arrival: None - Clinical Impression Clinical Impression: Knee contusion, Ankle sprain - PA / CONSUMER LOAN MANAGER / Resident Statement / has reviewed & agrees with the documentation as recorded. - Scribe Statement The provider has reviewed the documentation as recorded by the Scribe Randa Vinson All medical record entries made by the Saraibleti were at my direction and personally dictated by me. I have reviewed the chart and agree that the record accurately reflects my personal performance of the history, physical exam, medical decision making, and the department course for this patient. I have also personally directed, reviewed, and agree with the discharge instructions and disposition.
--- NOTE | 2017-06-21 17:11 | RAD ---
PROCEDURE: Left Ankle Radiographs. HISTORY: pain s.p trip and fall COMPARISON: None available. FINDINGS: BONES: Osseous demineralization. Small ossific density lateral and adjacent to the fibula. Calcaneal enthesophyte. JOINTS: No dislocation. SOFT TISSUES: Soft tissue swelling, greatest laterally. No evidence of radiopaque foreign body. OTHER FINDINGS: None. IMPRESSION: Soft tissue swelling, greatest laterally. Tiny ossific density lateral and adjacent to the fibula ; small avulsion fracture is not excluded. Correlate clinically. Osseous demineralization.
[2017-06-21 17:27] VITALS: BP 162/66; PULSE 98; RESP 20
--- NOTE | 2017-06-22 10:20 | RAD ---
PROCEDURE: Left Knee Radiographs. HISTORY: Pain. COMPARISON: 11/20/2016 FINDINGS: BONES: Generalized osteopenia. No fracture. Anterior superior patellar spurring - quadricep blending enthesophyte. JOINTS: Mild medial femoral tibial joint space narrowing inferred JOINT EFFUSION: None. OTHER FINDINGS: None. IMPRESSION: Generalized osteopenia without fracture appreciated
== END 2017-06-21 17:54 | disposition home or self-care (01) ==
LOC: C.ER 14:40
DX: S93.402A Sprain of unspecified ligament of left ankle, initial encounter (principal); S80.02XA Contusion of left knee, initial encounter; W19.XXXA Unspecified fall, initial encounter; Y93.89 Activity, other specified; Y92.89 Other specified places as the place of occurrence of the external cause
CPT/HCPCS: 73562; 73610; 96372; 99283; J2270

== ENCOUNTER 2017-07-01 11:46 | Emergency (ER) | payer MEDICARE ==
[2017-07-01 11:47] VITALS: BMI 17.2
[2017-07-01 12:02] VITALS: TEMP 97.9; O2SAT 97
--- NOTE | 2017-07-01 12:19 | C.PDOC ---
History Of Present Illness Patient presents to ED c/o left ankle/foot pain after fall 10 days ago. Patient was seen in this ED, Xray showed questionable chip fx -patient placed in posterior splint and instructed to follow up with orthopedics. She admits she has not yet done so. Patient has been takign Tramadol and Naprosyn at home for pain, states it is not helping. Denies new falls/injuries. Time Seen by Provider: 07/01/17 12:04 Chief Complaint (Nursing): Pain, Chronic History Per: Patient History/Exam Limitations: no limitations Onset/Duration Of Symptoms: Days (10) Current Symptoms Are (Timing): Still Present Severity: Moderate Past Medical History Reviewed: Historical Data, Nursing Documentation, Vital Signs Vital Signs: Last Vital Signs Temp 97.9 F 07/01/17 11:58 Pulse 123 H 07/01/17 13:20 Resp 18 07/01/17 11:58 BP 207/80 H 07/01/17 11:58 Pulse Ox 97 07/01/17 12:46 - Medical History PMH: Anemia, Anxiety, Arthritis, Back Problems, Bronchitis, CAD, CHF, COPD, CVA , Dementia, Deep Vein Thrombosis, Emphysema, Fractures (Right Hip), HTN, Hypercholesterolemia, Hyperlipidemia, Malignancy (Breast CA left 4 yrs ago, patient in remission, last chemo was 3 years ago), Osteoporosis, Peripheral Edema, Chronic Kidney Disease, Schizophrenia, TIA Surgical History: Coronary Stent (07/26/12) - [facility] Procedures ANGIOPLASTY OF OTHER NON-CORONARY VESSEL(S) (07/26/12) CONTR CEREBR ARTERIOGRAM (06/25/15) CONTRAST AORTOGRAM (07/26/12) DILATION OF 2 COR ART WITH DRUG-ELUT INTRALUM, PERC APPROACH (10/27/15) DX ULTRASOUND-HEART (04/04/15) EXCISION OF TOE NAIL, EXTERNAL APPROACH (09/17/16) EXERCISE TREATMENT OF MUSCULOSK WHOLE USING ASSIST EQUIPMENT (09/17/16) FLUOROSCOPY OF LEFT HEART USING LOW OSMOLAR CONTRAST (07/06/16) FLUOROSCOPY OF MULT COR ART USING L OSM CONTRAST (07/06/16) GAIT TRAINING/AMBULAT TREATMENT USING ASSIST EQUIPMENT (09/17/16) GROOMING/PERSONAL HYGIENE TREATMENT USING ASSIST EQUIPMENT (09/17/16) INSEJ OF DRUG-ELUTING STENT(S) OF OTH PERIPHERAL VESSEL(S) (07/26/12) INSERTION OF TWO VASCULAR STENTS (07/26/12) INSPECTION OF UPPER INTESTINAL TRACT, ENDO (10/31/16) MEASURE OF CARDIAC SAMPL & PRESSURE, L HEART, PERC APPROACH (06/05/17) PACKED CELL TRANSFUSION (11/06/13) PARTIAL HIP REPLACEMENT (11/06/13) PLAIN RADIOGRAPHY OF LEFT HEART USING LOW OSMOLAR CONTRAST (10/27/15) PLAIN RADIOGRAPHY OF LEFT HEART USING OTHER CONTRAST (06/05/17) PLAIN RADIOGRAPHY OF MULT COR ART USING L OSM CONTRAST (10/27/15) PLAIN RADIOGRAPHY OF MULT COR ART USING OTH CONTRAST (06/05/17) PLAIN RADIOGRAPHY OF R LOW EXTREM VEIN USING OTH CONTRAST (06/05/17) PROCEDURE ON FOUR OR MORE VESSELS (07/26/12) REMOVAL OF VAD FROM UP EXTREM SUBCU/FASCIA, DRAWING PRESS OPERATOR APPROACH (07/06/15) Family History: States: No Known Family Hx - Social History Hx Tobacco Use: Yes Hx Alcohol Use: No Hx Substance Use: No - Immunization History Hx Tetanus Toxoid Vaccination: No Hx Influenza Vaccination: No Hx Pneumococcal Vaccination: No Review Of Systems Except As Marked, All Systems Reviewed And Found Negative. Cardiovascular: Negative for: Chest Pain Respiratory: Negative for: Shortness of Breath Gastrointestinal: Negative for: Abdominal Pain Musculoskeletal: Positive for: Other (left ankle pain) Physical Exam - Physical Exam Appears: Well, Non-toxic, In Acute Distress (in mild pain ) Skin: Normal Color, Warm, Dry Oral Mucosa: Moist Cardiovascular: Rhythm Regular (mildly tachycardic ) Respiratory: Normal Breath Sounds, No Rales, No Rhonchi, No Wheezing Extremity: Capillary Refill (< 2 sec all digits ), Other (left ankle in posterior splint) Neurological/Psych: Oriented x3 ED Course And Treatment O2 Sat by Pulse Oximetry: 97 (RA) Pulse Ox Interpretation: Normal Progress Note: Patient seen 10 days ago in our ER, at the time has just signed out AMA from rehab facility because she did not like the food. PMD spoken with at the time, did not want to admit patient. She is often admitted and then signs out from hospital or NH/rehab. She has history of multiple ED visits, often with bed seeking and narcotic seeking behavior. NE CLINICAL DATA ABSTRACTOR aware reviewed, patient was just given 20 tabs Percocet yesterday by provider in [place]. - Physician Consult Information Physician Contacted: John Brown Outcome Of Conversation: Discussed patient with PMD, who knows her well and agrees with discharge home. Medical Decision Making Medical Decision Making: [facility] AWARE: Prescriptions:11 Prescribers:5 Pharmacies:2 Private Pay:0 Active Daily MME:25.0 Prescriptions Filled ID Written Drug QTY Days Prescriber Rx # Pharmacy* Refills MME/D Pymt Type CLINICAL DATA ABSTRACTOR 06/30/2017 1 06/21/2017 OXYCODONE-ACETAMINOPHEN 5-325 20.0 6 SR CINDY [id number] [facility] (5170) 0 25.0 [place] 05/03/2017 1 01/28/2017 TRAMADOL HCL 50 MG TABLET 90.0 30 HO LEV [id number] [facility] ( 5170) 2 15.0 [place] 03/16/2017 1 01/28/2017 TRAMADOL HCL 50 MG TABLET 90.0 30 HO LEV [id number] [facility] ( 5170) 1 15.0 [place] 02/15/2017 1 01/28/2017 TRAMADOL HCL 50 MG TABLET 90.0 30 HO LEV [id number] [facility] ( 5170) 0 15.0 [place] 01/20/2017 1 01/20/2017 TRAMADOL HCL 50 MG TABLET 60.0 30 HO LEV [id number] [facility] ( 5170) 0 10.0 [place] Filled ID Written Drug QTY Days Prescriber Rx # Pharmacy* Refills MME/D Pymt Type [facility] 01/15/2017 1 01/15/2017 TRAMADOL HCL 50 MG TABLET 12.0 6 TA AFO [id number] [facility] ( 5170) 0 10.0 [place] 11/04/2016 1 11/04/2016 TRAMADOL HCL 50 MG TABLET 90.0 30 HO LEV [id number] [facility] ( 5170) 0 15.0 [place] 10/23/2016 1 10/23/2016 OXYCODONE-ACETAMINOPHEN 5-325 20.0 5 SA HER [id number] [facility] (5170) 0 30.0 [place] 10/17/2016 10/17/2016 tramadol hcl 50 mg tablet 28 7 [facility] [place] 09/02/2016 1 08/30/2016 TRAMADOL HCL 50 MG TABLET 60.0 30 HO LEV [id number] [facility] ( 5170) 0 10.0 [place] 08/05/2016 1 08/05/2016 TRAMADOL HCL 50 MG TABLET 60 30 [place] [id number] [facility] 5170 0 10.0 [place] Disposition Counseled Patient/Family Regarding: Studies Performed, Diagnosis, Need For Followup, Rx Given - Disposition Referrals: John Brown DO [Staff Provider] - Dawit Holt III, MD [Staff Provider] - Disposition: HOME/ ROUTINE Disposition Time: 12:30 Condition: STABLE Additional Instructions: FOLLOW UP WITH ORTHOPEDICS DR HOLT PREVIOUSLY INSTRUCTED DURING PRIOR VISIT ON 06/21/17 USE YOU CHRONIC PAIN MEDICATIONS FOR PAIN RETURN TO ER IF SYMPTOMS WORSEN Prescriptions: Naproxen 375 mg PO BID PRN #20 tablet PRN Reason: pain Instructions: Ankle Sprain (ED), Chronic Pain (ED) Forms: YEVVO (Pashto) Print Language: UZBEK - POA Present On Arrival: None - Clinical Impression Clinical Impression: Left ankle sprain, Chronic pain
[2017-07-01] MEDS ORDERED: Metoprolol Succinate 25 mg XL Tab PO STA (12:26)
[2017-07-01] MEDS ORDERED: Metoprolol Succinate 50 mg XL Tab PO ONE (12:47)
[2017-07-01 15:15] VITALS: BP 186/76; PULSE 98; RESP 20
== END 2017-07-01 15:18 | disposition home or self-care (01) ==
LOC: C.ER 11:46
DX: S93.402D Sprain of unspecified ligament of left ankle, subsequent encounter (principal); W18.30XD Fall on same level, unspecified, subsequent encounter; G89.29 Other chronic pain; I10 Essential (primary) hypertension
CPT/HCPCS: 96372; 99284; J1885

== ENCOUNTER 2017-08-17 01:52 | Inpatient (IN) | payer MEDICARE ==
[2017-08-17 01:53] VITALS: BMI 17.2
[2017-08-17] MEDS ORDERED: Albuterol-Ipratrop 3 mg / 0.5 (3 ml) UD ONE (02:14)
--- NOTE | 2017-08-17 02:14 | C.PDOC ---
History Of Present Illness 72 year old female presents to the ED c/o CP that started tonight, she states her house is very hot. Patient denies any sweats, nausea, vomit, fever. Chief Complaint (Nursing): Chest Pain History Per: Patient History/Exam Limitations: no limitations Onset/Duration Of Symptoms: Hrs Current Symptoms Are (Timing): Still Present Quality: "Pain" Associated Symptoms: denies: Nausea, Diaphoresis Recent travel outside of the [place]: No Additional History Per: Patient Past Medical History Reviewed: Historical Data, Nursing Documentation, Vital Signs Vital Signs: Last Vital Signs Temp 97.9 F 08/17/17 02:10 Pulse 111 H 08/17/17 02:10 Resp 25 H 08/17/17 02:10 BP 179/157 H 08/17/17 02:10 Pulse Ox 100 08/17/17 02:10 - Medical History PMH: Anemia, Anxiety, Arthritis, Back Problems, Bronchitis, CAD, CHF, COPD, CVA , Dementia, Deep Vein Thrombosis, Emphysema, Fractures (Right Hip), HTN, Hypercholesterolemia, Hyperlipidemia, Malignancy (Breast CA left 4 yrs ago, patient in remission, last chemo was 3 years ago), Osteoporosis, Peripheral Edema, Chronic Kidney Disease, Schizophrenia, TIA Surgical History: Coronary Stent (07/26/12) - [facility] ANGIOPLASTY OF OTHER NON-CORONARY VESSEL(S) (07/26/12) CONTR CEREBR ARTERIOGRAM (06/25/15) CONTRAST AORTOGRAM (07/26/12) DILATION OF 2 COR ART WITH DRUG-ELUT INTRALUM, PERC APPROACH (10/27/15) DX ULTRASOUND-HEART (04/04/15) EXCISION OF TOE NAIL, EXTERNAL APPROACH (09/17/16) EXERCISE TREATMENT OF MUSCULOSK WHOLE USING ASSIST EQUIPMENT (09/17/16) FLUOROSCOPY OF LEFT HEART USING LOW OSMOLAR CONTRAST (07/06/16) FLUOROSCOPY OF MULT COR ART USING L OSM CONTRAST (07/06/16) GAIT TRAINING/AMBULAT TREATMENT USING ASSIST EQUIPMENT (09/17/16) GROOMING/PERSONAL HYGIENE TREATMENT USING ASSIST EQUIPMENT (09/17/16) INSEJ OF DRUG-ELUTING STENT(S) OF OTH PERIPHERAL VESSEL(S) (07/26/12) INSERTION OF TWO VASCULAR STENTS (07/26/12) INSPECTION OF UPPER INTESTINAL TRACT, ENDO (10/31/16) MEASURE OF CARDIAC SAMPL & PRESSURE, L HEART, PERC APPROACH (06/05/17) PACKED CELL TRANSFUSION (11/06/13) PARTIAL HIP REPLACEMENT (11/06/13) PLAIN RADIOGRAPHY OF LEFT HEART USING LOW OSMOLAR CONTRAST (10/27/15) PLAIN RADIOGRAPHY OF LEFT HEART USING OTHER CONTRAST (06/05/17) PLAIN RADIOGRAPHY OF MULT COR ART USING L OSM CONTRAST (10/27/15) PLAIN RADIOGRAPHY OF MULT COR ART USING OTH CONTRAST (06/05/17) PLAIN RADIOGRAPHY OF R LOW EXTREM VEIN USING OTH CONTRAST (06/05/17) PROCEDURE ON FOUR OR MORE VESSELS (07/26/12) REMOVAL OF VAD FROM UP EXTREM SUBCU/FASCIA, DIRECTOR BIOSTATISTICS APPROACH (07/06/15) Family History: States: Unknown Family Hx - Social History Hx Tobacco Use: Yes Hx Alcohol Use: No Hx Substance Use: No - Immunization History Hx Tetanus Toxoid Vaccination: No Hx Influenza Vaccination: No Hx Pneumococcal Vaccination: No Review Of Systems Constitutional: Negative for: Fever, Chills, Sweats Cardiovascular: Positive for: Chest Pain. Negative for: Palpitations Respiratory: Negative for: Cough, Shortness of Breath Gastrointestinal: Negative for: Nausea, Vomiting, Abdominal Pain Neurological: Negative for: Weakness, Numbness, Headache Physical Exam - Physical Exam Appears: Non-toxic, In Acute Distress, Agitated Skin: Normal Color, Warm, Dry Head: Atraumatic, Normacephalic Oral Mucosa: Moist Neck: Normal ROM, Supple Chest: Symmetrical, No Tenderness Cardiovascular: Rhythm Regular, No Murmur Respiratory: Normal Breath Sounds, No Rales, No Rhonchi, No Wheezing Gastrointestinal/Abdominal: Soft, No Tenderness Extremity: Normal ROM, Pedal Edema (Bilateral), No Calf Tenderness, No Swelling Neurological/Psych: Oriented x3, Normal Speech, Normal Cognition ED Course And Treatment - Laboratory Results Result Diagrams: 08/17/17 02:30 08/17/17 02:30 ECG: Interpreted By Me, Viewed By Me ECG Rhythm: Sinus Tachycardia ECG Interpretation: Abnormal Interpretation Of ECG: st-t abnormality lateral lead, no significant change from old tracings Rate From EC Medical Decision Making Medical Decision Making: Impression : 72 y/o female with CP Plan: * EKG ordered * Blood work ordered * Ecotrin 162 mg PO, Toradol 30 mg IVP given. Disposition Discussed With : John Brown Doctor Will See Patient In The: Hospital Counseled Patient/Family Regarding: Diagnosis - Disposition Disposition: HOSPITALIZED Disposition Time: 04:15 Condition: STABLE Forms: [facility] (Indonesian) - POA Present On Arrival: None - Clinical Impression Clinical Impression: Chest pain, Renal insufficiency - Scribe Statement The provider has reviewed the documentation as recorded by the Scribe Joey Richards All medical record entries made by the Scribe were at my direction and personally dictated by me. I have reviewed the chart and agree that the record accurately reflects my personal performance of the history, physical exam, medical decision making, and the department course for this patient. I have also personally directed, reviewed, and agree with the discharge instructions and disposition.
[2017-08-17 02:38] LABS: BASO # 0.2 K/uL (0.0-0.2); BASO % 1.3 % (0.0-2.0); EOS # 0.6 K/uL (0.0-0.7); EOS % 3.6 % (0.0-4.0); HEMATOCRIT 36.4 % (34.0-47.0); LYMPH # 1.7 K/uL (1.0-4.3); LYMPH % 10.5 % (20.0-40.0); MEAN CELL VOLUME 76.1 fL (81.0-99.0); MEAN CORPUSCULAR HEMOGLOBIN 23.3 pg (27.0-31.0); MEAN CORPUSCULAR HGB CONC 30.6 g/dL (33.0-37.0); MEAN PLATELET VOLUME 9.8 fL (7.2-11.7); MONO # 0.8 K/uL (0.0-0.8); MONO % 5.4 % (0.0-10.0); RED CELL DISTRIBUTION WIDTH 23.8 % (11.5-14.5); WHITE BLOOD COUNT 15.8 K/uL (4.8-10.8)
[2017-08-17 03:03] LABS: ALB/GLOB RATIO 1.1 (1.0-2.1); BILIRUBIN,TOTAL 0.4 mg/dL (0.2-1.3); CALCIUM 8.8 mg/dl (8.6-10.4); POTASSIUM 4.4 mmol/L (3.6-5.2); TOTAL PROTEIN 7.4 g/dL (6.3-8.3)
[2017-08-17 03:14] LABS: TROPONIN I 0.018 ng/mL (0.00-0.120)
[2017-08-17] MEDS ORDERED: Enoxaparin 40 mg Syringe SC STA (04:08)
[2017-08-17] MEDS ORDERED: Enoxaparin 40 mg Syringe ONE (04:57)
--- NOTE | 2017-08-17 09:07 | RAD ---
Chest x-ray single frontal view History: Chest pain. Comparison: 06/04/2017 Findings: Biapical pleural thickening with upper lobe granulomatous changes. Diffuse increased interstitial lung markings which may represent underlying infiltrate versus edema. Additional chronic interstitial lung markings. Calcification at the aortic knob. Tortuous ectatic aorta. Degenerative changes in the spine and shoulders. Impression: Biapical pleural thickening with upper lobe granulomatous changes. Diffuse increased interstitial lung markings which may represent underlying infiltrate versus edema. Additional chronic interstitial lung markings. Calcification at the aortic knob. Tortuous ectatic aorta.
[2017-08-17] MEDS ORDERED: Acetylcysteine 20% Inhal Soln (4ml) PO SCH (10:00)
[2017-08-17] MEDS: Tiotropium 18 mcg Cap For Inhalation INH SCH (10:18)
[2017-08-17] MEDS: Fluticasone-Salmeterol 250-50mcg Diskus INH SCH ×2 (10:18→19:17)
[2017-08-17] MEDS: Ranolazine 500 mg Extended Release Tablets PO SCH ×2 (11:00→17:56)
[2017-08-17] MEDS: Enoxaparin 40 mg Syringe SC SCH (11:20)
[2017-08-17] MEDS: diltiaZEM 120 mg/24 Hours CD Cap PO SCH (11:33)
[2017-08-17] MEDS: Metoprolol Succinate 25 mg XL Tab PO SCH (11:33)
[2017-08-17] MEDS: cefTRIAXone IV 1 gm in Dextros 50 ML IVPB SCH (11:34)
--- NOTE | 2017-08-17 11:34 | NM ---
COMPARISON: August 17, 2017. Single-view chest TECHNIQUE: 9.8 mCi technetium 99-m Xe-133 Gas. 3.9 mCI technetium 99-m MAA administered intravenously. FINDINGS: VENTILATION COMPONENT: Heterogeneous ventilation, retention of radionuclide, air trapping on the washout phase of the study. PERFUSION COMPONENT: Heterogeneous distribution of radionuclide. No geographic, segmental, lobar abnormalities apparent on the present examination. IMPRESSION: Low probability ventilation perfusion scan for pulmonary embolism.
--- NOTE | 2017-08-17 14:30 | HP ---
HISTORY OF PRESENT ILLNESS: I know the patient from many years from high school, hospitals, nursing homes, subacute rehabs. Apparently, last night she had chest pain, she has this before many times. She came to the emergency room. She was also very hot, and she is in the ER, with 24-hour observation to rule-out [place] or PE. PAST MEDICAL HISTORY: Anemia; anxiety; arthritis; back problems; bronchitis; CAD; CHF; COPD; CVA; dementia; deep vein thrombosis; emphysema; right hip fractures with ORIF; hypertension; high cholesterol; hyperlipidemia; malignancy of the breast cancer, left, 4 years ago; she had a chemo and significant remission; osteoporosis; peripheral edema; chronic kidney disease; schizophrenia; TIA; two coronary stents. She had cerebral arteriograms, aortograms, two drug-eluting stents, angioplasties, multiple excision of toenails, fluoroscopies of the heart, multiple approaches to the legs. FAMILY HISTORY: Hypertension in the family. SOCIAL HISTORY: She does still smoke. No alcohol. No drugs. She has renal insufficiency on meds. MEDICATIONS: She is on acetylcysteine, Advair, Apresoline, Cardizem, Catapres, Cozaar, Ecotrin, Lasix, Lovenox now, Pepcid, Ranexa, Rocephin I added, Spiriva, metoprolol, Ultram. ALLERGIES: SHE HAS ALLERGIES TO IODINE AND IV DYE. REVIEW OF SYSTEMS: She has chest pain, no shortness of breath, no abdominal pain, no leg pain, no palpitations, no nausea, vomiting, constipation, diarrhea, no skin issue changes. She does have a left ankle that was broken, she was in a cast. The cast is off, now she is in a Alex bandage, so that causes her problems from time to time. PHYSICAL EXAMINATION: GENERAL: She is comfortable now, no acute distress, alert and oriented. The chest pain has subsided. VITAL SIGNS: She has 97.9 temperature, 111 pulse is down to 88 now, 25 respiratory rate is down to 18, 179/157 blood pressure is down to 160/80 blood pressure, 100% O2 sat. HEENT: Head is atraumatic and normocephalic. His extraocular muscles are intact. Throat is moist. NECK: Supple. HEART: Regular rate. LUNGS: Decreased breath sounds. Clear to auscultation. ABDOMEN: Soft and nontender. Positive bowel sounds. EXTREMITIES: Her left ankle is wrapped in Alex bandage due to the fracture. The right leg has trace edema. SKIN: For the most part is intact. NEUROLOGIC: She is alert and oriented x3, understands why she is there, uncomfortable. LABORATORY DATA: She has a 141 sodium, potassium 4.4, BUN 23, creatinine 1.1. GFR is 49. Sugar is 113, calcium is 8.8. Total bilirubin is 0.4, AST is 15, ALT is 23, and alkaline phosphatase is 86. Troponin one at 0.018. BNP is 32,800, I changed her Lasix p.o. to IV. Total protein is 7.4, albumin is 3.8. D-dimer is 374. I could not do a CT angio, but did a VQ scan this morning. She has a 15.8 white count, I put her on Rocephin. 11.1 hemoglobin, 36.4 hematocrit with 267 platelets. Chest x-ray and EKG are pending. She came in early this morning. We will do a VQ scan, IV Rocephin, IV Lasix. PLAN: Keep her overnight in observation, watch if she will have cardio and pulmonary consults and if we can get her up tomorrow, we will order physical therapy and Lovenox. She is in observation status. Thank you very much. John Brown DO
--- NOTE | 2017-08-17 17:32 | CP.PCM.CON ---
History of Present Illness - History of Present Illness History of Present Illness: had chest pain last night but today is better breathing diff at home due to heat in house, now improved Review of Systems - Respiratory Respiratory: Dyspnea on Exertion Past Patient History - Infectious Disease Hx of Infectious Diseases: None - Tetanus Immunizations Tetanus Immunization: Unknown - Past Medical History & Family History Past Medical History?: Yes - Past Social History Smoking Status: Former Smoker - CARDIAC Hx Cardiac Disorders: Yes (CAD) Hx Congestive Heart Failure: Yes Hx Hypercholesterolemia: Yes Hx Hypertension: Yes - PULMONARY Hx Chronic Obstructive Pulmonary Disease (COPD): Yes (Emphysema,) - NEUROLOGICAL Hx Dementia: Yes Hx Transient Ischemic Attacks (TIA): Yes - HEENT Hx HEENT Problems: Yes (left eye blurry) 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) Other/Comment: [place] left ear - RENAL Hx Chronic Kidney Disease: Yes - ENDOCRINE/METABOLIC Hx Endocrine Disorders: No - HEMATOLOGICAL/ONCOLOGICAL Hx Anemia: Yes - INTEGUMENTARY Hx Dermatological Problems: No - MUSCULOSKELETAL/RHEUMATOLOGICAL Hx Arthritis: Yes - GASTROINTESTINAL Hx Gastrointestinal Disorders: Yes Hx Gastroesophageal Reflux: Yes - PSYCHIATRIC Hx Substance Use: No - SURGICAL HISTORY Hx Coronary Stent: Yes (07/26/12) - ANESTHESIA Hx Anesthesia: Yes Hx Anesthesia Reactions: No Hx Malignant Hyperthermia: No Meds Allergies/Adverse Reactions: Allergies Allergy/AdvReac Type Severity Reaction Status Date / Time iodine Allergy Severe ANAPHYLAXIS Verified 08/17/17 02:07 iv dye Allergy Severe ANAPHYLAXIS Uncoded 08/17/17 02:07 - Medications Medications: Current Medications Acetylcysteine (Acetylcysteine 20%) 4 ml INH RBID [facility] Aspirin (Ecotrin) 81 mg PO DAILY [facility] Last Admin: 08/17/17 11:00 Dose: 81 mg Clonidine HCl (Catapres) 0.1 mg PO Q8H [facility] Last Admin: 08/17/17 13:11 Dose: 0.1 mg Diltiazem HCl (Cardizem Cd) 120 mg PO DAILY [facility] Last Admin: 08/17/17 11:33 Dose: 120 mg Enoxaparin Sodium (Lovenox) 40 mg SC DAILY [facility] Last Admin: 08/17/17 11:20 Dose: 40 mg Famotidine (Pepcid) 20 mg PO DAILY [facility] Last Admin: 08/17/17 11:33 Dose: 20 mg Furosemide (Lasix) 40 mg IVP DAILY [facility] Last Admin: 08/17/17 11:33 Dose: 40 mg Hydralazine HCl (Apresoline) 75 mg PO TID [facility] Last Admin: 08/17/17 13:11 Dose: 75 mg Ceftriaxone Sodium (Rocephin Iv 1 Gm Duplex) 50 mls @ 100 mls/hr IVPB DAILY [facility] Last Admin: 08/17/17 11:34 Dose: 100 mls/hr Losartan Potassium (Cozaar) 100 mg PO DAILY [facility] Last Admin: 08/17/17 11:33 Dose: 100 mg Metoprolol Succinate (Toprol Xl) 25 mg PO DAILY [facility] Last Admin: 08/17/17 11:33 Dose: 25 mg Ondansetron HCl (Zofran Inj) 4 mg IVP Q6 PRN PRN Reason: Nausea/Vomiting Last Admin: 08/17/17 17:05 Dose: 4 mg Ranolazine (Ranexa) 500 mg PO BID [facility] Last Admin: 08/17/17 11:00 Dose: 500 mg Rosuvastatin Calcium (Crestor) 10 mg PO HS [facility] Fluticasone/Salmeterol (Advair Diskus 250/50) 1 puff INH RQ12 [facility] Last Admin: 08/17/17 10:18 Dose: Not Given Tiotropium [place] (Spiriva) 18 mcg INH RQ24 [facility] Last Admin: 08/17/17 10:18 Dose: Not Given Tramadol HCl (Ultram) 50 mg PO Q8H [facility] Last Admin: 08/17/17 13:12 Dose: 50 mg Physical Exam - Constitutional Appears: No Acute Distress, Chronically Ill - Head Exam Head Exam: NORMAL INSPECTION, NORMOCEPHALIC - Eye Exam Eye Exam: Normal appearance Pupil Exam: NORMAL ACCOMODATION - ENT Exam ENT Exam: Mucous Membranes Moist - Neck Exam Neck exam: Positive for: Normal Inspection - Respiratory Exam Respiratory Exam: Decreased Breath Sounds - Cardiovascular Exam Cardiovascular Exam: REGULAR RHYTHM, +S1, +S2 - GI/Abdominal Exam GI & Abdominal Exam: Normal Bowel Sounds - Rectal Exam Rectal Exam: Deferred - Neurological Exam Neurological exam: Alert, Oriented x3 - Psychiatric Exam Psychiatric exam: Flat Affect, Normal Mood - Skin Skin Exam: Intact Results - Vital Signs Recent Vital Signs: Last Vital Signs Temp 97.7 F 08/17/17 15:24 Pulse 61 08/17/17 15:24 Resp 20 08/17/17 15:24 BP 189/83 H 08/17/17 15:43 Pulse Ox 97 08/17/17 15:24 - Labs Result Diagrams: 08/17/17 02:30 08/17/17 02:30 Labs: Laboratory Results - last 24 hr 08/17/17 08/17/17 08/17/17 02:30 02:30 02:30 WBC 15.8 H RBC 4.79 Hgb 11.1 Hct 36.4 MCV 76.1 L D MCH 23.3 L MCHC 30.6 L RDW 23.8 H Plt Count 267 MPV 9.8 Neut % (Auto) 79.2 H Lymph % (Auto) 10.[address] % (Auto) 5.4 Eos % (Auto) 3.6 Baso % (Auto) 1.3 Neut # 12.5 H Lymph # 1.7 [place] # 0.8 Eos # 0.6 Baso # 0.2 D-Dimer, Quantitative 374 H Sodium 141 Potassium 4.4 Chloride 109 H Carbon Dioxide 22 Anion Gap 15 BUN 23 H Creatinine 1.1 Est GFR ( Amer) 59 Est GFR (Non-Af Amer) 49 Random Glucose 113 H Calcium 8.8 Total Bilirubin 0.4 AST 15 ALT 23 Alkaline Phosphatase 86 Troponin I 0.0180 NT-Pro-B Natriuret Pep Total Protein 7.4 Albumin 3.8 Globulin 3.6 Albumin/Globulin Ratio 1.1 08/17/17 08/17/17 03:52 11:17 WBC RBC Hgb Hct MCV MCH MCHC RDW Plt Count MPV Neut % (Auto) Lymph % (Auto) [place] % (Auto) Eos % (Auto) Baso % (Auto) Neut # Lymph # [place] # Eos # Baso # D-Dimer, Quantitative Sodium Potassium Chloride Carbon Dioxide Anion Gap BUN Creatinine Est GFR ( Amer) Est GFR (Non-Af Amer) Random Glucose Calcium Total Bilirubin AST ALT Alkaline Phosphatase Troponin I 0.4210 H* NT-Pro-B Natriuret Pep 62659 H Total Protein Albumin Globulin Albumin/Globulin Ratio Assessment & Plan (1) Chest pain Status: Acute (2) COPD (chronic obstructive pulmonary disease) Status: Chronic
[2017-08-17] MEDS: Albuterol-Ipratrop 3 mg / 0.5 (3 ml) UD INH SCH (19:17)
[2017-08-17] MEDS: Acetylcysteine 20% Inhal Soln (4ml) INH SCH (19:17)
[2017-08-18] MEDS: Albuterol-Ipratrop 3 mg / 0.5 (3 ml) UD INH SCH ×4 (01:17→19:09)
[2017-08-18] MEDS: Acetylcysteine 20% Inhal Soln (4ml) INH SCH ×2 (07:24→19:09)
[2017-08-18] MEDS: Fluticasone-Salmeterol 250-50mcg Diskus INH SCH ×2 (07:25→19:09)
[2017-08-18] MEDS: Tiotropium 18 mcg Cap For Inhalation INH SCH (07:25)
[2017-08-18] MEDS: diltiaZEM 120 mg/24 Hours CD Cap PO SCH (10:45)
[2017-08-18] MEDS: Metoprolol Succinate 25 mg XL Tab PO SCH (10:45)
[2017-08-18] MEDS: Enoxaparin 40 mg Syringe SC SCH (10:45)
[2017-08-18] MEDS: Ranolazine 500 mg Extended Release Tablets PO SCH ×2 (10:46→18:09)
[2017-08-18] MEDS: cefTRIAXone IV 1 gm in Dextros 50 ML IVPB SCH (11:00)
--- NOTE | 2017-08-18 11:17 | CARD ---
APPROVED REPORT EKG Measurement Heart [id number] <Conclusion> Sinus tachycardia Possible Left atrial enlargement ST & T wave abnormality, consider infero-lateral ischemia Abnormal ECG
[2017-08-18 11:35] LABS: HEMATOCRIT 26.5 % (34.0-47.0); MEAN CELL VOLUME 75.9 fL (81.0-99.0); MEAN CORPUSCULAR HEMOGLOBIN 24.5 pg (27.0-31.0); MEAN CORPUSCULAR HGB CONC 32.3 g/dL (33.0-37.0); MEAN PLATELET VOLUME 10.3 fL (7.2-11.7); RED CELL DISTRIBUTION WIDTH 22.6 % (11.5-14.5)
[2017-08-18 11:37] LABS: WHITE BLOOD COUNT 5.6 K/uL (4.8-10.8)
[2017-08-18 11:40] LABS: BILIRUBIN,TOTAL 0.4 mg/dL (0.2-1.3); CALCIUM 8.2 mg/dl (8.6-10.4); POTASSIUM 5.4 mmol/L (3.6-5.2); TOTAL PROTEIN 5.7 g/dL (6.3-8.3)
[2017-08-18 11:47] LABS: ALB/GLOB RATIO 0.9 (1.0-2.1)
--- NOTE | 2017-08-18 12:52 | PN ---
SUBJECTIVE: I saw her resting comfortably in bed this morning. She slept well. She is in good spirit. No chest pain, no shortness of breath. She is very comfortable. She did get her Rocephin last night for the elevated white count. Her troponins did bump a tad. Awaiting for Cardiology to make a comment and also Pulmonology wrote a note. PHYSICAL EXAMINATION: VITAL SIGNS: Temperature 99.2, 83 pulse, 121/62 blood pressure, 97% O2 sat on 2 L nasal cannula. HEENT: Head is atraumatic, normocephalic. Throat is moist. NECK: Supple. HEART: Regular rate. LUNGS: Decreased breath sounds but clear to auscultation. ABDOMEN: Soft, nontender. Positive bowel sounds. EXTREMITIES: Her feet are little bit swollen. She did have a fracture of the ankle. LABORATORY DATA: I do not know have labs for today. I have a 0.16 troponin with a 0.4 INR yesterday. I will have to make her an inpatient. Her BNP was 32,800. MEDICATIONS: She is on acetylcysteine, fluticasone, Apresoline, Cardizem, Catapres, Rocephin, Cozaar, Crestor, DuoNeb, aspirin, Lasix 40 IV, Lovenox, morphine, Pepcid, Spiriva, metoprolol, Toradol, tramadol, and Zofran. I am going to change to an inpatient today with a positive troponin with elevated white count and elevated BNP. I will keep her as an inpatient till cardio wants to do, and when I get the word, I will then discharge her home. John Brown DO
--- NOTE | 2017-08-18 23:27 | CP.PCM.CON ---
History of Present Illness - History of Present Illness History of Present Illness: CC SOB; chest pain HPI : 72 year old female presents to the ED c/o CP that started tonight, she states her house is very hot. Patient denies any sweats, nausea, vomit, fever Review of Systems - Cardiovascular Cardiovascular: Chest Pain - Respiratory Respiratory: Dyspnea, Dyspnea on Exertion Past Patient History - Infectious Disease Hx of Infectious Diseases: None - Tetanus Immunizations Tetanus Immunization: Unknown - Past Medical History & Family History Past Medical History?: Yes - Past Social History Smoking Status: Former Smoker - CARDIAC Hx Cardiac Disorders: Yes (CAD) Hx Congestive Heart Failure: Yes Hx Hypercholesterolemia: Yes Hx Hypertension: Yes - PULMONARY Hx Chronic Obstructive Pulmonary Disease (COPD): Yes (Emphysema,) - NEUROLOGICAL Hx Dementia: Yes Hx Transient Ischemic Attacks (TIA): Yes - HEENT Hx HEENT Problems: Yes (left eye blurry) 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) Other/Comment: [place] left ear - RENAL Hx Chronic Kidney Disease: Yes - ENDOCRINE/METABOLIC Hx Endocrine Disorders: No - HEMATOLOGICAL/ONCOLOGICAL Hx Anemia: Yes - INTEGUMENTARY Hx Dermatological Problems: No - MUSCULOSKELETAL/RHEUMATOLOGICAL Hx Arthritis: Yes - GASTROINTESTINAL Hx Gastrointestinal Disorders: Yes Hx Gastroesophageal Reflux: Yes - PSYCHIATRIC Hx Substance Use: No - SURGICAL HISTORY Hx Coronary Stent: Yes (07/26/12) - ANESTHESIA Hx Anesthesia: Yes Hx Anesthesia Reactions: No Hx Malignant Hyperthermia: No Meds Allergies/Adverse Reactions: Allergies Allergy/AdvReac Type Severity Reaction Status Date / Time iodine Allergy Severe ANAPHYLAXIS Verified 08/17/17 02:07 iv dye Allergy Severe ANAPHYLAXIS Uncoded 08/17/17 02:07 - Medications Medications: Current Medications Acetylcysteine (Acetylcysteine 20%) 4 ml INH RBID [facility] Last Admin: 08/18/17 19:09 Dose: Not Given Albuterol/Ipratropium (Duoneb 3 Mg/0.5 Mg (3 Ml) Ud) 3 ml INH RQ6 [facility] Last Admin: 08/18/17 19:09 Dose: Not Given Aspirin (Ecotrin) 81 mg PO DAILY [facility] Last Admin: 08/18/17 10:45 Dose: 81 mg Clonidine HCl (Catapres) 0.1 mg PO Q8H [facility] Last Admin: 08/18/17 21:22 Dose: 0.1 mg Diltiazem HCl (Cardizem Cd) 120 mg PO DAILY [facility] Last Admin: 08/18/17 10:45 Dose: 120 mg Enoxaparin Sodium (Lovenox) 40 mg SC DAILY [facility] Last Admin: 08/18/17 10:45 Dose: 40 mg Famotidine (Pepcid) 20 mg PO DAILY [facility] Last Admin: 08/18/17 10:45 Dose: 20 mg Furosemide (Lasix) 40 mg IVP DAILY [facility] Last Admin: 08/18/17 10:46 Dose: 40 mg Hydralazine HCl (Apresoline) 75 mg PO TID [facility] Last Admin: 08/18/17 18:14 Dose: 75 mg Losartan Potassium (Cozaar) 100 mg PO DAILY [facility] Last Admin: 08/18/17 10:45 Dose: 100 mg Metoprolol Succinate (Toprol Xl) 25 mg PO DAILY [facility] Last Admin: 08/18/17 10:45 Dose: 25 mg Ondansetron HCl (Zofran Inj) 4 mg IVP Q6 PRN PRN Reason: Nausea/Vomiting Last Admin: 08/17/17 17:05 Dose: 4 mg Ranolazine (Ranexa) 500 mg PO BID [facility] Last Admin: 08/18/17 18:09 Dose: 500 mg Rosuvastatin Calcium (Crestor) 10 mg PO HS [facility] Last Admin: 08/18/17 21:22 Dose: 10 mg Fluticasone/Salmeterol (Advair Diskus 250/50) 1 puff INH RQ12 [facility] Last Admin: 08/18/17 19:09 Dose: Not Given Tiotropium [place] (Spiriva) 18 mcg INH RQ24 [facility] Last Admin: 08/18/17 07:25 Dose: Not Given Tramadol HCl (Ultram) 50 mg PO Q8 [facility] Last Admin: 08/18/17 22:53 Dose: 50 mg Physical Exam - Constitutional Appears: Chronically Ill - Head Exam Head Exam: NORMAL INSPECTION - Eye Exam Eye Exam: absent: Scleral icterus - ENT Exam ENT Exam: Mucous Membranes Moist - Neck Exam Neck exam: Positive for: Full Rom - Respiratory Exam Respiratory Exam: NORMAL BREATHING PATTERN - Cardiovascular Exam Cardiovascular Exam: REGULAR RHYTHM - GI/Abdominal Exam GI & Abdominal Exam: Soft. absent: Tenderness - Extremities Exam Extremities exam: Negative for: calf tenderness, pedal edema - Neurological Exam Neurological exam: Alert, Oriented x3 Results - Vital Signs Recent Vital Signs: Last Vital Signs Temp 97.8 F 08/18/17 15:54 Pulse 75 08/18/17 18:16 Resp 20 08/18/17 15:54 BP 125/56 L 08/18/17 18:16 Pulse Ox 97 08/18/17 15:54 - Labs Result Diagrams: 08/18/17 11:12 08/18/17 11:12 Labs: Laboratory Results - last 24 hr 08/18/17 08/18/17 08/18/17 11:12 11:12 22:22 WBC 5.6 D RBC 3.49 L Hgb 8.5 L D Hct 26.5 L MCV 75.9 L MCH 24.5 L MCHC 32.3 L RDW 22.6 H Plt Count 160 D MPV 10.3 Sodium 135 Potassium 5.4 H Chloride 103 Carbon Dioxide 25 Anion Gap 12 BUN 31 H Creatinine 1.7 H Est GFR ( Amer) 36 Est GFR (Non-Af Amer) 29 Random Glucose 113 H Calcium 8.2 L Total Bilirubin 0.4 AST 17 ALT 23 Alkaline Phosphatase 56 Total Protein 5.7 L Albumin 2.7 L D Globulin 2.9 Albumin/Globulin Ratio 0.9 L Stool Occult Blood Negative Assessment & Plan - Assessment and Plan (Free Text) Assessment: COPD ACS CAD HTN Depression Plan: Medical therapy Not a good candidate for interventionall intervention or CABG Cont meds
[2017-08-19 08:50] LABS: HEMATOCRIT 29.8 % (34.0-47.0); MEAN CELL VOLUME 75.5 fL (81.0-99.0); MEAN CORPUSCULAR HEMOGLOBIN 24.9 pg (27.0-31.0); MEAN CORPUSCULAR HGB CONC 32.9 g/dL (33.0-37.0); MEAN PLATELET VOLUME 10.2 fL (7.2-11.7); RED CELL DISTRIBUTION WIDTH 22.9 % (11.5-14.5); WHITE BLOOD COUNT 6.4 K/uL (4.8-10.8)
[2017-08-19 09:02] LABS: BILIRUBIN,TOTAL 0.4 mg/dL (0.2-1.3); CALCIUM 8.5 mg/dl (8.6-10.4); POTASSIUM 4.5 mmol/L (3.6-5.2); TOTAL PROTEIN 6.6 g/dL (6.3-8.3)
[2017-08-19 09:25] LABS: TROPONIN I 0.174 ng/mL (0.00-0.120)
[2017-08-19] MEDS: Acetylcysteine 20% Inhal Soln (4ml) INH SCH ×2 (09:52→19:22)
[2017-08-19] MEDS: Albuterol-Ipratrop 3 mg / 0.5 (3 ml) UD INH SCH ×3 (09:52→19:22)
[2017-08-19] MEDS: Enoxaparin 40 mg Syringe SC SCH (10:50)
[2017-08-19] MEDS: Ranolazine 500 mg Extended Release Tablets PO SCH ×2 (10:51→18:43)
[2017-08-19] MEDS: Metoprolol Succinate 25 mg XL Tab PO SCH (10:53)
[2017-08-19] MEDS: diltiaZEM 120 mg/24 Hours CD Cap PO SCH (10:53)
--- NOTE | 2017-08-19 11:09 | PN ---
DATE: SUBJECTIVE: I saw Kathy sitting up in bed. She is having chest pain. Again, she does not feel well. She is pointing to her chest on the left side. I am going to order a stat CBC, SMA-7 and a troponin. I know Cardiology said no interventional treatment for her chest pain and elevated troponins which is still persistent. I will add Protonix IV to see if this is maybe another GERD, and I will see what her troponin is this morning. PHYSICAL EXAMINATION: VITAL SIGNS: 98 temp, 60 pulse, 115/53 blood pressure, 20 respiratory rate, 99% O2 sat on 2 L nasal cannula. HEENT: Head is atraumatic, normocephalic. Throat is moist. NECK: Supple. HEART: Regular rate. LUNGS: Decreased breath sounds, but clear, much better than when she came in. ABDOMEN: Soft. EXTREMITIES: Bandage from an old fracture, but they are improving. MEDICATIONS: She is currently on acetylcysteine, Advair, Apresoline, Cardizem, Catapres, Cozaar, Crestor, DuoNeb, Ecotrin, Lasix, Lovenox, Pepcid, Protonix now, Ranexa, Spiriva, Toprol, Ultram and Zofran. LABORATORY DATA: Labs yesterday, she had a 5.4 potassium. She was not given any Kayexalate. I am hoping the nurse will call me today if the potassium is high. Also, the BUN and creatinine went to 31 and 1.7, which is different. Calcium is 8.2, total bili is 0.4, AST is 17, ALT is 33, alk phos is 56 and last troponin was 0.16, elevated. White count came down to 5.6, hemoglobin also came down to 8.5, hematocrit 26.5, platelets are 160. ASSESSMENT AND PLAN: If her hemoglobin drops below 8, I will transfuse her. I will check a stool for occult blood too, and we are not going to discharge her. Hopefully, we will find some answers who has chest pain, possible gastroesophageal reflux disease, shortness of breath, congestive heart failure, high white count when she came in, elevated troponins and now anemia. We will check her labs this morning. John Brown DO KENNETH
[2017-08-19] MEDS: Metoprolol Succinate 50 mg XL Tab PO SCH (18:43)
[2017-08-19] MEDS: Fluticasone-Salmeterol 250-50mcg Diskus INH SCH ×2 (19:23→19:55)
[2017-08-20] MEDS: Albuterol-Ipratrop 3 mg / 0.5 (3 ml) UD INH SCH ×4 (01:27→20:04)
[2017-08-20] MEDS: Acetylcysteine 20% Inhal Soln (4ml) INH SCH ×2 (07:45→20:03)
[2017-08-20] MEDS: Fluticasone-Salmeterol 250-50mcg Diskus INH SCH ×2 (08:00→20:03)
[2017-08-20] MEDS: Ranolazine 500 mg Extended Release Tablets PO SCH ×2 (10:29→18:57)
[2017-08-20] MEDS: Enoxaparin 40 mg Syringe SC SCH (10:29)
[2017-08-20] MEDS: Metoprolol Succinate 50 mg XL Tab PO SCH ×2 (10:30→18:57)
[2017-08-20 11:33] LABS: HEMATOCRIT 32.3 % (34.0-47.0); MEAN CELL VOLUME 75.6 fL (81.0-99.0); MEAN CORPUSCULAR HEMOGLOBIN 24.4 pg (27.0-31.0); MEAN CORPUSCULAR HGB CONC 32.3 g/dL (33.0-37.0); MEAN PLATELET VOLUME 10.3 fL (7.2-11.7); RED CELL DISTRIBUTION WIDTH 23.1 % (11.5-14.5); WHITE BLOOD COUNT 5.4 K/uL (4.8-10.8)
[2017-08-20 11:55] LABS: ALB/GLOB RATIO 1.5 (1.0-2.1); BILIRUBIN,TOTAL 0.6 mg/dL (0.2-1.3); CALCIUM 8.4 mg/dl (8.6-10.4); POTASSIUM 4.2 mmol/L (3.6-5.2); TOTAL PROTEIN 5.6 g/dL (6.3-8.3)
--- NOTE | 2017-08-20 13:37 | PN ---
SUBJECTIVE: She is upset that she has not had much physical therapy. She said she needs physical therapy. The recommendation from Physical Therapy is for the TCU. We can transfer her to [facility] tomorrow I am hoping. I will get case management involved, it is as per recommendation, and she is willing to go to [place] for TCU. She also has elevated troponins, and she has got medical management right now. No invasive procedures as per Cardiology. She received lab this morning. MEDICATIONS: She is currently on acetylcysteine, Advair, Apresoline, Catapres, Cozaar, Crestor, DuoNeb, Ecotrin, Lasix, Lovenox, Pepcid, Protonix, Ranexa, Spiriva, Toprol, Tylenol, Ultram, and Zofran. She is being seen by Pulmonary and Cardiology. My plan is to have her discharge tomorrow to TCU at [facility] as per recommendations from Physical Therapy. She is here for chest pain, shortness of breath, GERD, COPD, ACS, CAD, hypertension, elevated troponins, anemia, and the high white count. Hopefully, TCU tomorrow at [facility]. I consulted case management there. John Brown DO
[2017-08-20] MEDS: Tiotropium 18 mcg Cap For Inhalation INH SCH (13:40)
[2017-08-21] MEDS: Albuterol-Ipratrop 3 mg / 0.5 (3 ml) UD INH SCH ×4 (01:41→19:56)
[2017-08-21] MEDS: Acetylcysteine 20% Inhal Soln (4ml) INH SCH ×2 (07:11→19:57)
[2017-08-21 07:26] LABS: HEMATOCRIT 32.1 % (34.0-47.0); MEAN CELL VOLUME 75.3 fL (81.0-99.0); MEAN CORPUSCULAR HEMOGLOBIN 24.6 pg (27.0-31.0); MEAN CORPUSCULAR HGB CONC 32.6 g/dL (33.0-37.0); MEAN PLATELET VOLUME 10.4 fL (7.2-11.7); RED CELL DISTRIBUTION WIDTH 23.2 % (11.5-14.5); WHITE BLOOD COUNT 6.7 K/uL (4.8-10.8)
[2017-08-21 07:56] LABS: BILIRUBIN,TOTAL 0.6 mg/dL (0.2-1.3); CALCIUM 8.9 mg/dl (8.6-10.4); POTASSIUM 4.7 mmol/L (3.6-5.2); TOTAL PROTEIN 5.8 g/dL (6.3-8.3)
[2017-08-21 07:57] LABS: ALB/GLOB RATIO 1.5 (1.0-2.1)
[2017-08-21] MEDS: Enoxaparin 30 mg Syringe SC SCH (10:13)
[2017-08-21] MEDS: Metoprolol Succinate 50 mg XL Tab PO SCH ×2 (10:15→17:49)
[2017-08-21] MEDS: Ranolazine 500 mg Extended Release Tablets PO SCH ×2 (10:16→17:49)
[2017-08-21] MEDS: Fluticasone-Salmeterol 250-50mcg Diskus INH SCH ×2 (12:50→19:58)
[2017-08-21] MEDS: Tiotropium 18 mcg Cap For Inhalation INH SCH (12:50)
--- NOTE | 2017-08-21 13:55 | DS ---
SUBJECTIVE: This is the third overnight here. She was recommended to go to TCU by the physical therapist. I am hoping she can go to the [facility] where I go, otherwise. She is ready for physical therapy, enthusiastic and motivated. PHYSICAL EXAMINATION: VITAL SIGNS: She has 97.8 temp, 60 pulse, 147/61 blood pressure, 20 respiratory rate, 100% O2 sat on 2 L nasal cannula. HEENT: Head is atraumatic, normocephalic. HEART: Regular rate. LUNGS: Clear to auscultation. ABDOMEN: Soft. EXTREMITIES: Trace edema. MEDICATIONS: She is currently on acetylcysteine, Advair, Apresoline, Catapres, Cozaar, Crestor, DuoNeb, Ecotrin, Lasix, Lovenox, Pepcid, Protonix, Ranexa, Spiriva, Toprol, Ultram and Zofran. LABORATORY DATA: She had 135 sodium, potassium 4.2, BUN was 29, creatinine 1.6, GFR is 32, sugar is 113. Calcium is 8.4. Total bili is 0.68, AST is 11, ALT is 21, alk phos is 72. Last troponin was 0.17 with medical management. Her total protein is 7.6. She has 5.4 white count, hemoglobin is 10.4, hematocrit 32.3, platelets are 204. She was seen by Cardiology and Pulmonology and the plan is to medical management of her heart. She has COPD, ACS, CAD, hypertension, increased troponins, anemia, chest pain, shortness of breath, high white count. physical therapy is needed. She also had a recent fracture to the ankle and she is improving. This needs more physical therapy at [facility]. John Brown DO KENNETH
--- NOTE | 2017-08-21 15:57 | CP.PCM.PN ---
Subjective - Date & Time of Evaluation Date of Evaluation: 08/21/17 Time of Evaluation: 15:55 - Subjective Subjective: being transferred to [place] respiratory status stable Objective - Vital Signs/Intake and Output Vital Signs (last 24 hours): Temp Pulse Resp BP Pulse Ox 97.6 F 60 20 159/69 H 99 08/21/17 15:42 08/21/17 15:42 08/21/17 15:42 08/21/17 15:42 08/21/17 15:42 Intake and Output: 08/21/17 08/21/17 06:59 18:59 Intake Total 200 200 Balance 200 200 - Medications Medications: Current Medications Acetylcysteine (Acetylcysteine 20%) 4 ml INH RBID [facility] Last Admin: 08/21/17 07:11 Dose: 4 ml Albuterol/Ipratropium (Duoneb 3 Mg/0.5 Mg (3 Ml) Ud) 3 ml INH RQ6 [facility] Last Admin: 08/21/17 13:15 Dose: Not Given Aspirin (Ecotrin) 81 mg PO DAILY [facility] Last Admin: 08/21/17 10:16 Dose: 81 mg Clonidine HCl (Catapres) 0.1 mg PO Q8H [facility] Last Admin: 08/21/17 12:59 Dose: 0.1 mg Enoxaparin Sodium (Lovenox) 30 mg SC DAILY [facility] Last Admin: 08/21/17 10:13 Dose: 30 mg Famotidine (Pepcid) 20 mg PO DAILY [facility] Last Admin: 08/21/17 10:16 Dose: 20 mg Furosemide (Lasix) 40 mg IVP DAILY [facility] Last Admin: 08/21/17 10:15 Dose: 40 mg Hydralazine HCl (Apresoline) 75 mg PO TID [facility] Last Admin: 08/21/17 14:26 Dose: 75 mg Losartan Potassium (Cozaar) 100 mg PO DAILY [facility] Last Admin: 08/21/17 10:16 Dose: 100 mg Metoprolol Succinate (Toprol Xl) 50 mg PO BID [facility] Last Admin: 08/21/17 10:15 Dose: 50 mg Ondansetron HCl (Zofran Inj) 4 mg IVP Q6 PRN PRN Reason: Nausea/Vomiting Last Admin: 08/21/17 12:59 Dose: 4 mg Pantoprazole Sodium (Protonix Inj) 40 mg IVP Q12H [facility] Last Admin: 08/21/17 10:16 Dose: 40 mg Ranolazine (Ranexa) 1,000 mg PO BID [facility] Last Admin: 08/21/17 10:16 Dose: 1,000 mg Rosuvastatin Calcium (Crestor) 10 mg PO HS [facility] Last Admin: 08/20/17 22:10 Dose: 10 mg Fluticasone/Salmeterol (Advair Diskus 250/50) 1 puff INH RQ12 [facility] Last Admin: 08/21/17 12:50 Dose: Not Given Tiotropium [place] (Spiriva) 18 mcg INH RQ24 [facility] Last Admin: 08/21/17 12:50 Dose: Not Given Tramadol HCl (Ultram) 50 mg PO Q8 [facility] Last Admin: 08/21/17 13:07 Dose: 50 mg - Labs Labs: 08/21/17 06:59 08/21/17 06:59 - Constitutional Appears: Chronically Ill - Head Exam Head Exam: ATRAUMATIC, NORMOCEPHALIC - Eye Exam Eye Exam: Normal appearance - ENT Exam ENT Exam: Mucous Membranes Moist - Neck Exam Neck Exam: Normal Inspection - Respiratory Exam Respiratory Exam: Decreased Breath Sounds - Cardiovascular Exam Cardiovascular Exam: REGULAR RHYTHM, +S1, +S2 - GI/Abdominal Exam GI & Abdominal Exam: Normal Bowel Sounds - Rectal Exam Rectal Exam: Deferred - Neurological Exam Neurological Exam: Alert, Awake, Oriented x3 - Psychiatric Exam Psychiatric exam: Flat Affect - Skin Skin Exam: Intact Assessment and Plan (1) Chest pain Status: Resolved (2) COPD (chronic obstructive pulmonary disease) Status: Chronic
--- NOTE | 2017-08-21 23:17 | CP.PCM.PN ---
Subjective - Date & Time of Evaluation Date of Evaluation: 08/19/17 Time of Evaluation: 09:05 - Subjective Subjective: still with sob occ chest pain +trops Objective - Vital Signs/Intake and Output Vital Signs (last 24 hours): Temp Pulse Resp BP Pulse Ox 97.6 F 63 20 159/69 H 99 08/21/17 15:42 08/21/17 18:00 08/21/17 15:42 08/21/17 15:42 08/21/17 15:42 Intake and Output: 08/21/17 08/22/17 18:59 06:59 Intake Total 200 Balance 200 - Medications Medications: Current Medications Acetylcysteine (Acetylcysteine 20%) 4 ml INH RBID [facility] Last Admin: 08/21/17 19:57 Dose: 4 ml Albuterol/Ipratropium (Duoneb 3 Mg/0.5 Mg (3 Ml) Ud) 3 ml INH RQ6 [facility] Last Admin: 08/21/17 19:56 Dose: 3 ml Aspirin (Ecotrin) 81 mg PO DAILY [facility] Last Admin: 08/21/17 10:16 Dose: 81 mg Clonidine HCl (Catapres) 0.1 mg PO Q8H [facility] Last Admin: 08/21/17 21:08 Dose: 0.1 mg Enoxaparin Sodium (Lovenox) 30 mg SC DAILY [facility] Last Admin: 08/21/17 10:13 Dose: 30 mg Famotidine (Pepcid) 20 mg PO DAILY [facility] Last Admin: 08/21/17 10:16 Dose: 20 mg Furosemide (Lasix) 40 mg IVP DAILY [facility] Last Admin: 08/21/17 10:15 Dose: 40 mg Hydralazine HCl (Apresoline) 75 mg PO TID [facility] Last Admin: 08/21/17 17:49 Dose: 75 mg Losartan Potassium (Cozaar) 100 mg PO DAILY [facility] Last Admin: 08/21/17 10:16 Dose: 100 mg Metoprolol Succinate (Toprol Xl) 50 mg PO BID [facility] Last Admin: 08/21/17 17:49 Dose: 50 mg Ondansetron HCl (Zofran Inj) 4 mg IVP Q6 PRN PRN Reason: Nausea/Vomiting Last Admin: 08/21/17 12:59 Dose: 4 mg Pantoprazole Sodium (Protonix Inj) 40 mg IVP Q12H [facility] Last Admin: 08/21/17 21:08 Dose: 40 mg Ranolazine (Ranexa) 1,000 mg PO BID [facility] Last Admin: 08/21/17 17:49 Dose: 1,000 mg Rosuvastatin Calcium (Crestor) 10 mg PO HS [facility] Last Admin: 08/21/17 21:07 Dose: 10 mg Fluticasone/Salmeterol (Advair Diskus 250/50) 1 puff INH RQ12 [facility] Last Admin: 08/21/17 19:58 Dose: 1 puff Tiotropium [place] (Spiriva) 18 mcg INH RQ24 [facility] Last Admin: 08/21/17 12:50 Dose: Not Given Tramadol HCl (Ultram) 50 mg PO Q8 [facility] Last Admin: 08/21/17 21:08 Dose: 50 mg - Labs Labs: 08/21/17 06:59 08/21/17 06:59 - Constitutional Appears: Chronically Ill - Head Exam Head Exam: NORMAL INSPECTION - Eye Exam Eye Exam: absent: Scleral icterus - ENT Exam ENT Exam: Mucous Membranes Moist - Neck Exam Neck Exam: Full ROM - Respiratory Exam Respiratory Exam: Decreased Breath Sounds - Cardiovascular Exam Cardiovascular Exam: REGULAR RHYTHM - GI/Abdominal Exam GI & Abdominal Exam: Normal Bowel Sounds - Extremities Exam Extremities Exam: Calf Tenderness. absent: Pedal Edema
--- NOTE | 2017-08-21 23:20 | CP.PCM.PN ---
Subjective - Date & Time of Evaluation Date of Evaluation: 08/21/17 Time of Evaluation: 09:50 - Subjective Subjective: no chest pain breathing improved Objective - Vital Signs/Intake and Output Vital Signs (last 24 hours): Temp Pulse Resp BP Pulse Ox 97.6 F 63 20 159/69 H 99 08/21/17 15:42 08/21/17 18:00 08/21/17 15:42 08/21/17 15:42 08/21/17 15:42 Intake and Output: 08/21/17 08/22/17 18:59 06:59 Intake Total 200 Balance 200 - Medications Medications: Current Medications Acetylcysteine (Acetylcysteine 20%) 4 ml INH RBID [facility] Last Admin: 08/21/17 19:57 Dose: 4 ml Albuterol/Ipratropium (Duoneb 3 Mg/0.5 Mg (3 Ml) Ud) 3 ml INH RQ6 [facility] Last Admin: 08/21/17 19:56 Dose: 3 ml Aspirin (Ecotrin) 81 mg PO DAILY [facility] Last Admin: 08/21/17 10:16 Dose: 81 mg Clonidine HCl (Catapres) 0.1 mg PO Q8H [facility] Last Admin: 08/21/17 21:08 Dose: 0.1 mg Enoxaparin Sodium (Lovenox) 30 mg SC DAILY [facility] Last Admin: 08/21/17 10:13 Dose: 30 mg Famotidine (Pepcid) 20 mg PO DAILY [facility] Last Admin: 08/21/17 10:16 Dose: 20 mg Furosemide (Lasix) 40 mg IVP DAILY [facility] Last Admin: 08/21/17 10:15 Dose: 40 mg Hydralazine HCl (Apresoline) 75 mg PO TID [facility] Last Admin: 08/21/17 17:49 Dose: 75 mg Losartan Potassium (Cozaar) 100 mg PO DAILY [facility] Last Admin: 08/21/17 10:16 Dose: 100 mg Metoprolol Succinate (Toprol Xl) 50 mg PO BID [facility] Last Admin: 08/21/17 17:49 Dose: 50 mg Ondansetron HCl (Zofran Inj) 4 mg IVP Q6 PRN PRN Reason: Nausea/Vomiting Last Admin: 08/21/17 12:59 Dose: 4 mg Pantoprazole Sodium (Protonix Inj) 40 mg IVP Q12H [facility] Last Admin: 08/21/17 21:08 Dose: 40 mg Ranolazine (Ranexa) 1,000 mg PO BID [facility] Last Admin: 08/21/17 17:49 Dose: 1,000 mg Rosuvastatin Calcium (Crestor) 10 mg PO HS [facility] Last Admin: 08/21/17 21:07 Dose: 10 mg Fluticasone/Salmeterol (Advair Diskus 250/50) 1 puff INH RQ12 [facility] Last Admin: 08/21/17 19:58 Dose: 1 puff Tiotropium [place] (Spiriva) 18 mcg INH RQ24 [facility] Last Admin: 08/21/17 12:50 Dose: Not Given Tramadol HCl (Ultram) 50 mg PO Q8 [facility] Last Admin: 08/21/17 21:08 Dose: 50 mg - Labs Labs: 08/21/17 06:59 08/21/17 06:59 - Constitutional Appears: Chronically Ill - Head Exam Head Exam: NORMAL INSPECTION - Eye Exam Eye Exam: Scleral icterus - ENT Exam ENT Exam: Mucous Membranes Moist - Neck Exam Neck Exam: Full ROM - Respiratory Exam Respiratory Exam: Decreased Breath Sounds - Cardiovascular Exam Cardiovascular Exam: REGULAR RHYTHM - GI/Abdominal Exam GI & Abdominal Exam: Soft - Extremities Exam Extremities Exam: absent: Pedal Edema Assessment and Plan - Assessment and Plan (Free Text) Assessment: ACS COPD HTN Bipolar disorder Plan: Cont meds. Cont bronchodilators
--- NOTE | 2017-08-21 23:25 | CP.PCM.PN ---
Subjective - Date & Time of Evaluation Date of Evaluation: 08/20/17 Time of Evaluation: 11:15 - Subjective Subjective: improving less sob no chest pain Objective - Vital Signs/Intake and Output Vital Signs (last 24 hours): Temp Pulse Resp BP Pulse Ox 97.6 F 63 20 159/69 H 99 08/21/17 15:42 08/21/17 18:00 08/21/17 15:42 08/21/17 15:42 08/21/17 15:42 Intake and Output: 08/21/17 08/22/17 18:59 06:59 Intake Total 200 Balance 200 - Medications Medications: Current Medications Acetylcysteine (Acetylcysteine 20%) 4 ml INH RBID [facility] Last Admin: 08/21/17 19:57 Dose: 4 ml Albuterol/Ipratropium (Duoneb 3 Mg/0.5 Mg (3 Ml) Ud) 3 ml INH RQ6 [facility] Last Admin: 08/21/17 19:56 Dose: 3 ml Aspirin (Ecotrin) 81 mg PO DAILY [facility] Last Admin: 08/21/17 10:16 Dose: 81 mg Clonidine HCl (Catapres) 0.1 mg PO Q8H [facility] Last Admin: 08/21/17 21:08 Dose: 0.1 mg Enoxaparin Sodium (Lovenox) 30 mg SC DAILY [facility] Last Admin: 08/21/17 10:13 Dose: 30 mg Famotidine (Pepcid) 20 mg PO DAILY [facility] Last Admin: 08/21/17 10:16 Dose: 20 mg Furosemide (Lasix) 40 mg IVP DAILY [facility] Last Admin: 08/21/17 10:15 Dose: 40 mg Hydralazine HCl (Apresoline) 75 mg PO TID [facility] Last Admin: 08/21/17 17:49 Dose: 75 mg Losartan Potassium (Cozaar) 100 mg PO DAILY [facility] Last Admin: 08/21/17 10:16 Dose: 100 mg Metoprolol Succinate (Toprol Xl) 50 mg PO BID [facility] Last Admin: 08/21/17 17:49 Dose: 50 mg Ondansetron HCl (Zofran Inj) 4 mg IVP Q6 PRN PRN Reason: Nausea/Vomiting Last Admin: 08/21/17 12:59 Dose: 4 mg Pantoprazole Sodium (Protonix Inj) 40 mg IVP Q12H [facility] Last Admin: 08/21/17 21:08 Dose: 40 mg Ranolazine (Ranexa) 1,000 mg PO BID [facility] Last Admin: 08/21/17 17:49 Dose: 1,000 mg Rosuvastatin Calcium (Crestor) 10 mg PO HS [facility] Last Admin: 08/21/17 21:07 Dose: 10 mg Fluticasone/Salmeterol (Advair Diskus 250/50) 1 puff INH RQ12 [facility] Last Admin: 08/21/17 19:58 Dose: 1 puff Tiotropium [place] (Spiriva) 18 mcg INH RQ24 [facility] Last Admin: 08/21/17 12:50 Dose: Not Given Tramadol HCl (Ultram) 50 mg PO Q8 [facility] Last Admin: 08/21/17 21:08 Dose: 50 mg - Labs Labs: 08/21/17 06:59 08/21/17 06:59 - Constitutional Appears: Chronically Ill - Head Exam Head Exam: NORMAL INSPECTION - Eye Exam Eye Exam: absent: Scleral icterus - ENT Exam ENT Exam: absent: Mucous Membranes Moist - Neck Exam Neck Exam: absent: Lymphadenopathy - Respiratory Exam Respiratory Exam: Decreased Breath Sounds. absent: Rhonchi - Cardiovascular Exam Cardiovascular Exam: REGULAR RHYTHM - Extremities Exam Extremities Exam: absent: Calf Tenderness, Pedal Edema - Neurological Exam Neurological Exam: Alert, Oriented x3 Assessment and Plan - Assessment and Plan (Free Text) Assessment: ACS COPD HTN Plan: Cont meds No intervention needed from cardiac standpoint
[2017-08-22] MEDS: Albuterol-Ipratrop 3 mg / 0.5 (3 ml) UD INH SCH ×4 (01:35→19:21)
[2017-08-22] MEDS: Fluticasone-Salmeterol 250-50mcg Diskus INH SCH ×2 (07:31→19:21)
[2017-08-22] MEDS: Acetylcysteine 20% Inhal Soln (4ml) INH SCH ×2 (07:31→19:21)
[2017-08-22] MEDS: Tiotropium 18 mcg Cap For Inhalation INH SCH (07:31)
[2017-08-22] MEDS: Ranolazine 500 mg Extended Release Tablets PO SCH ×2 (10:29→17:46)
[2017-08-22] MEDS: Metoprolol Succinate 50 mg XL Tab PO SCH ×2 (10:30→17:45)
[2017-08-22] MEDS: Enoxaparin 30 mg Syringe SC SCH (10:30)
[2017-08-22 15:25] VITALS: RESP 20
--- NOTE | 2017-08-22 19:23 | DS ---
HISTORY OF PRESENT ILLNESS: I saw her resting comfortably in bed. She understands she is going to Transitional Care Unit at [facility] today. She already wants to leave. I told her it probably would not happen until after lunch. She is on acetylcysteine, Advair, Apresoline, Catapres, Cozaar, Crestor, DuoNeb, Ecotrin, Lasix, Lovenox, Pepcid, Protonix, Ranexa, Spiriva, Toprol, Ultram and Zofran. She is doing well. She is doing better. She is trying physical therapy. PHYSICAL EXAMINATION: VITAL SIGNS: She has 98 temp, 65 pulse, 175/70 blood pressure which is good for her, 20 respiratory rate, 98% O2 saturation. HEENT: Head is atraumatic and normocephalic. GENERAL: She is very alert, questioning and demanding. HEART: Regular rate. LUNGS: Clear to auscultation with decreased breath sounds. ABDOMEN: Soft. EXTREMITIES: No edema. The right leg was recently fractured, it is improving and is Alex bandaged. LABORATORY DATA: She has 6.7 white count, 10.5 hemoglobin, 215 platelets. She has 138 sodium, potassium is 4.7, BUN 29, creatinine 1.8. GFR is 28. Sugar is 92. Calcium is 8.9. Total bilirubin is 0.6, AST is 13, ALT is 25, alkaline phosphatase 64, and total protein is 5.8. ASSESSMENT AND PLAN: She was seen by Pulmonary and Cardiovascular. She needs physical therapy as recommended by physical therapy here at [facility]. I recommended the transitional care unit and we will get her to [facility] Transitional Care Unit. Chest pain has resolved. Chronic obstructive pulmonary disease is chronic. I am hoping she will probably get to transitional care unit at [facility] today for further physical therapy before she goes home. She has acute coronary syndrome, chronic obstructive pulmonary disease, hypertension, bipolar, with medication management and now physical therapy. now im [facility] John Brown DO MTDJeaneth
[2017-08-23] MEDS: Acetylcysteine 20% Inhal Soln (4ml) INH SCH (07:22)
[2017-08-23] MEDS: Fluticasone-Salmeterol 250-50mcg Diskus INH SCH (07:23)
[2017-08-23] MEDS: Tiotropium 18 mcg Cap For Inhalation INH SCH (07:23)
[2017-08-23 07:58] LABS: HEMATOCRIT 34.8 % (34.0-47.0); MEAN CORPUSCULAR HGB CONC 32.2 g/dL (33.0-37.0)
[2017-08-23 08:02] LABS: MEAN CELL VOLUME 75.3 fL (81.0-99.0); MEAN CORPUSCULAR HEMOGLOBIN 24.3 pg (27.0-31.0); MEAN PLATELET VOLUME 10.3 fL (7.2-11.7); RED CELL DISTRIBUTION WIDTH 21.9 % (11.5-14.5); WHITE BLOOD COUNT 8.2 K/uL (4.8-10.8)
[2017-08-23 08:27] LABS: ALB/GLOB RATIO 1.1 (1.0-2.1); BILIRUBIN,TOTAL 0.6 mg/dL (0.2-1.3); CALCIUM 8.7 mg/dl (8.6-10.4); POTASSIUM 3.9 mmol/L (3.6-5.2); TOTAL PROTEIN 7.3 g/dL (6.3-8.3)
--- NOTE | 2017-08-23 09:36 | CP.PCM.PN ---
Subjective - Date & Time of Evaluation Date of Evaluation: 08/22/17 Time of Evaluation: 08:15 - Subjective Subjective: no chest pain SOB on exertion NAD Objective - Vital Signs/Intake and Output Vital Signs (last 24 hours): Temp Pulse Resp BP Pulse Ox 98.1 F 61 20 188/69 H 97 08/23/17 04:00 08/23/17 05:00 08/23/17 03:00 08/23/17 03:00 08/22/17 23:50 Intake and Output: 08/23/17 08/23/17 06:59 18:59 Intake Total 100 Balance 100 - Medications Medications: Current Medications Acetaminophen (Tylenol 325mg Tab) 650 mg PO Q6 PRN PRN Reason: Pain, moderate (4-7) Acetylcysteine (Acetylcysteine 20%) 4 ml INH RBID [facility] Last Admin: 08/23/17 07:22 Dose: Not Given Aspirin (Ecotrin) 81 mg PO DAILY [facility] Last Admin: 08/22/17 10:29 Dose: 81 mg Clonidine HCl (Catapres) 0.1 mg PO Q8H [facility] Last Admin: 08/23/17 05:14 Dose: 0.1 mg Enoxaparin Sodium (Lovenox) 30 mg SC DAILY [facility] Last Admin: 08/22/17 10:30 Dose: 30 mg Famotidine (Pepcid) 20 mg PO DAILY [facility] Last Admin: 08/22/17 10:29 Dose: 20 mg Furosemide (Lasix) 40 mg IVP DAILY [facility] Last Admin: 08/22/17 10:30 Dose: 40 mg Hydralazine HCl (Apresoline) 75 mg PO TID [facility] Last Admin: 08/22/17 17:45 Dose: 75 mg Losartan Potassium (Cozaar) 100 mg PO DAILY [facility] Last Admin: 08/22/17 10:29 Dose: 100 mg Metoprolol Succinate (Toprol Xl) 50 mg PO BID [facility] Last Admin: 08/22/17 17:45 Dose: 50 mg Ondansetron HCl (Zofran Inj) 4 mg IVP Q6 PRN PRN Reason: Nausea/Vomiting Last Admin: 08/23/17 01:18 Dose: 4 mg Pantoprazole Sodium (Protonix Inj) 40 mg IVP Q12H [facility] Last Admin: 08/22/17 21:17 Dose: 40 mg Ranolazine (Ranexa) 1,000 mg PO BID [facility] Last Admin: 08/22/17 17:46 Dose: 1,000 mg Rosuvastatin Calcium (Crestor) 10 mg PO HS [facility] Last Admin: 08/22/17 21:17 Dose: 10 mg Fluticasone/Salmeterol (Advair Diskus 250/50) 1 puff INH RQ12 [facility] Last Admin: 08/23/17 07:23 Dose: Not Given Tiotropium [place] (Spiriva) 18 mcg INH RQ24 [facility] Last Admin: 08/23/17 07:23 Dose: Not Given Tramadol HCl (Ultram) 50 mg PO Q8 [facility] Last Admin: 08/23/17 05:14 Dose: 50 mg - Labs Labs: 08/23/17 07:28 08/23/17 07:28 - Constitutional Appears: Non-toxic - Head Exam Head Exam: NORMOCEPHALIC - Eye Exam Eye Exam: absent: Scleral icterus - Neck Exam Neck Exam: Full ROM - Respiratory Exam Respiratory Exam: Decreased Breath Sounds - Cardiovascular Exam Cardiovascular Exam: REGULAR RHYTHM - GI/Abdominal Exam GI & Abdominal Exam: Soft. absent: Organomegaly - Extremities Exam Extremities Exam: absent: Pedal Edema - Neurological Exam Neurological Exam: Alert, Oriented x3 Assessment and Plan - Assessment and Plan (Free Text) Assessment: ACS COPD T2dm Plan: Cont meds Ok for dc from cardiac standpoint
--- NOTE | 2017-08-23 09:40 | CP.PCM.PN ---
Subjective - Date & Time of Evaluation Date of Evaluation: 08/22/17 Time of Evaluation: 07:30 - Subjective Subjective: feels depressed NAD no chest pain SOB on exertion Afebrile Objective - Vital Signs/Intake and Output Vital Signs (last 24 hours): Temp Pulse Resp BP Pulse Ox 98.1 F 61 20 188/69 H 97 08/23/17 04:00 08/23/17 05:00 08/23/17 03:00 08/23/17 03:00 08/22/17 23:50 Intake and Output: 08/23/17 08/23/17 06:59 18:59 Intake Total 100 Balance 100 - Medications Medications: Current Medications Acetaminophen (Tylenol 325mg Tab) 650 mg PO Q6 PRN PRN Reason: Pain, moderate (4-7) Acetylcysteine (Acetylcysteine 20%) 4 ml INH RBID [facility] Last Admin: 08/23/17 07:22 Dose: Not Given Aspirin (Ecotrin) 81 mg PO DAILY [facility] Last Admin: 08/22/17 10:29 Dose: 81 mg Clonidine HCl (Catapres) 0.1 mg PO Q8H [facility] Last Admin: 08/23/17 05:14 Dose: 0.1 mg Enoxaparin Sodium (Lovenox) 30 mg SC DAILY [facility] Last Admin: 08/22/17 10:30 Dose: 30 mg Famotidine (Pepcid) 20 mg PO DAILY [facility] Last Admin: 08/22/17 10:29 Dose: 20 mg Furosemide (Lasix) 40 mg IVP DAILY [facility] Last Admin: 08/22/17 10:30 Dose: 40 mg Hydralazine HCl (Apresoline) 75 mg PO TID [facility] Last Admin: 08/22/17 17:45 Dose: 75 mg Losartan Potassium (Cozaar) 100 mg PO DAILY [facility] Last Admin: 08/22/17 10:29 Dose: 100 mg Metoprolol Succinate (Toprol Xl) 50 mg PO BID [facility] Last Admin: 08/22/17 17:45 Dose: 50 mg Ondansetron HCl (Zofran Inj) 4 mg IVP Q6 PRN PRN Reason: Nausea/Vomiting Last Admin: 08/23/17 01:18 Dose: 4 mg Pantoprazole Sodium (Protonix Inj) 40 mg IVP Q12H [facility] Last Admin: 08/22/17 21:17 Dose: 40 mg Ranolazine (Ranexa) 1,000 mg PO BID [facility] Last Admin: 08/22/17 17:46 Dose: 1,000 mg Rosuvastatin Calcium (Crestor) 10 mg PO HS [facility] Last Admin: 08/22/17 21:17 Dose: 10 mg Fluticasone/Salmeterol (Advair Diskus 250/50) 1 puff INH RQ12 [facility] Last Admin: 08/23/17 07:23 Dose: Not Given Tiotropium [place] (Spiriva) 18 mcg INH RQ24 [facility] Last Admin: 08/23/17 07:23 Dose: Not Given Tramadol HCl (Ultram) 50 mg PO Q8 [facility] Last Admin: 08/23/17 05:14 Dose: 50 mg - Labs Labs: 08/23/17 07:28 08/23/17 07:28 - Constitutional Appears: Non-toxic - Head Exam Head Exam: ATRAUMATIC - Eye Exam Eye Exam: Scleral icterus Pupil Exam: NORMAL ACCOMODATION - Neck Exam Neck Exam: absent: Lymphadenopathy - Respiratory Exam Respiratory Exam: Decreased Breath Sounds - Cardiovascular Exam Cardiovascular Exam: REGULAR RHYTHM - GI/Abdominal Exam GI & Abdominal Exam: Soft. absent: Tenderness - Extremities Exam Extremities Exam: Full ROM. absent: Pedal Edema - Neurological Exam Neurological Exam: Alert, Oriented x3 Assessment and Plan - Assessment and Plan (Free Text) Assessment: ACS COPD HTN T2dm Lipid disorder Plan: Stable cardiacwise Cont present care
--- NOTE | 2017-08-23 10:34 | CP.PCM.PN ---
Subjective - Date & Time of Evaluation Date of Evaluation: 08/23/17 Time of Evaluation: 10:31 - Subjective Subjective: canales improving difficulty walking Objective - Vital Signs/Intake and Output Vital Signs (last 24 hours): Temp Pulse Resp BP Pulse Ox 98.1 F 61 20 188/69 H 97 08/23/17 04:00 08/23/17 05:00 08/23/17 03:00 08/23/17 03:00 08/22/17 23:50 Intake and Output: 08/23/17 08/23/17 06:59 18:59 Intake Total 100 Balance 100 - Medications Medications: Current Medications Acetaminophen (Tylenol 325mg Tab) 650 mg PO Q6 PRN PRN Reason: Pain, moderate (4-7) Acetylcysteine (Acetylcysteine 20%) 4 ml INH RBID [facility] Last Admin: 08/23/17 07:22 Dose: Not Given Aspirin (Ecotrin) 81 mg PO DAILY [facility] Last Admin: 08/22/17 10:29 Dose: 81 mg Clonidine HCl (Catapres) 0.1 mg PO Q8H [facility] Last Admin: 08/23/17 05:14 Dose: 0.1 mg Enoxaparin Sodium (Lovenox) 30 mg SC DAILY [facility] Last Admin: 08/22/17 10:30 Dose: 30 mg Famotidine (Pepcid) 20 mg PO DAILY [facility] Last Admin: 08/22/17 10:29 Dose: 20 mg Furosemide (Lasix) 40 mg IVP DAILY [facility] Last Admin: 08/22/17 10:30 Dose: 40 mg Hydralazine HCl (Apresoline) 75 mg PO TID [facility] Last Admin: 08/22/17 17:45 Dose: 75 mg Losartan Potassium (Cozaar) 100 mg PO DAILY [facility] Last Admin: 08/22/17 10:29 Dose: 100 mg Metoprolol Succinate (Toprol Xl) 50 mg PO BID [facility] Last Admin: 08/22/17 17:45 Dose: 50 mg Ondansetron HCl (Zofran Inj) 4 mg IVP Q6 PRN PRN Reason: Nausea/Vomiting Last Admin: 08/23/17 01:18 Dose: 4 mg Pantoprazole Sodium (Protonix Inj) 40 mg IVP Q12H [facility] Last Admin: 08/22/17 21:17 Dose: 40 mg Ranolazine (Ranexa) 1,000 mg PO BID [facility] Last Admin: 08/22/17 17:46 Dose: 1,000 mg Rosuvastatin Calcium (Crestor) 10 mg PO HS [facility] Last Admin: 08/22/17 21:17 Dose: 10 mg Fluticasone/Salmeterol (Advair Diskus 250/50) 1 puff INH RQ12 [facility] Last Admin: 08/23/17 07:23 Dose: Not Given Tiotropium [place] (Spiriva) 18 mcg INH RQ24 [facility] Last Admin: 08/23/17 07:23 Dose: Not Given Tramadol HCl (Ultram) 50 mg PO Q8 [facility] Last Admin: 08/23/17 05:14 Dose: 50 mg - Labs Labs: 08/23/17 07:28 08/23/17 07:28 - Constitutional Appears: Chronically Ill - Head Exam Head Exam: ATRAUMATIC, NORMOCEPHALIC - Eye Exam Eye Exam: Normal appearance - ENT Exam ENT Exam: Mucous Membranes Moist - Respiratory Exam Respiratory Exam: Decreased Breath Sounds - Cardiovascular Exam Cardiovascular Exam: REGULAR RHYTHM, +S1, +S2 - GI/Abdominal Exam GI & Abdominal Exam: Normal Bowel Sounds - Rectal Exam Rectal Exam: Deferred - Neurological Exam Neurological Exam: Alert, Awake, Oriented x3 - Psychiatric Exam Psychiatric exam: Normal Affect, Normal Mood - Skin Skin Exam: Intact Assessment and Plan (1) Chest pain Status: Resolved (2) COPD (chronic obstructive pulmonary disease) Status: Chronic
[2017-08-23] MEDS: Metoprolol Succinate 50 mg XL Tab PO SCH ×2 (10:40→17:45)
[2017-08-23] MEDS: Ranolazine 500 mg Extended Release Tablets PO SCH ×2 (10:40→17:45)
[2017-08-23] MEDS: Enoxaparin 30 mg Syringe SC SCH ×2 (10:42→10:45)
[2017-08-23 16:31] VITALS: O2SAT 94
--- NOTE | 2017-08-23 16:42 | PCM.HF ---
Heart Failure Core Measure - Heart Failure Ejection Fraction: 40 % or Greater AGGIE Inhibitor Prescribed: No Contraindication/Reason for not providing: ARB Beta-Jose Prescribed: Metoprolol Succinate Angiotensin II Receptor Jose Prescribed: Yes AnticoagulationTherapy for Atrial Fibrillation/Atrialflutter: No Contraindication/Reason for not providing: NO HX OF AFIB Contraindication/Reason for not providing: EF IS GREATER THAN 40 Hydralazine Nitrate Prescribed: Yes Implantable Cardioverter Defibrillator Therapy: No Contraindication/Reason for not providing: EF IS GREATER THAN 40 Cardiac Resynchronization Therapy Prescribed: No Contraindication/Reason for not providing: EF IS GREATER THAN 40 - Follow up Will be discharged to: Group Home Facility Follow Up Date (must be within 7 days from discharge): 08/28/17 Follow Up Time: 09:00
[2017-08-23 19:04] VITALS: BP 123/88; PULSE 79; TEMP 98
--- NOTE | 2017-08-24 02:42 | DS ---
HISTORY OF PRESENT ILLNESS: She needs to be out of the hospital. She gets mental changes when she is in the hospital too long. Her blood pressure remains from 180/80 all the time, that is not high for her. If it is 220/120 that is high. Please go back to Dr. Brown if there are any issues. I am trying to get her out to TCU. I was first told she was accepted to [facility], then I was told they could not go to [facility]; then I was told she was going to [facility], then I am told she is not going to [facility]; then I am told she is back on telemetry. I have had not one phone call about any of those things. Family were talking with house doctors and anybody else but not the attending. I am asking to please discharge, I am asking case management to help me with discharge. She does not do well if she stays in the hospital too long. She does not need to be here. I spoke to her this morning, she is back to her baseline. Usually, it is where she is not back to the baseline that means she is here too long. PHYSICAL EXAMINATION: VITAL SIGNS: She has a 98.1 temp, 61 pulse, 188/69 blood pressure. Respiratory rate is 20. GENERAL: She is very upset right now, getting physical therapy, she is lying in bed. HEENT: Head is atraumatic and normocephalic. HEART: Regular rate. LUNGS: Clear to auscultation. ABDOMEN: Soft. EXTREMITIES: She has got a fractured ankle that is healing slowly. She needs physical therapy. MEDICATIONS: She is going to go home on acetylcysteine, Advair, Apresoline, Catapres, Cozaar, Crestor, Ecotrin, Lasix, Pepcid, Protonix, Ranexa, Spiriva, Toprol, Ultram and Zofran. LABORATORY DATA: Labs are good for her. I went over the labs for this morning. 10.5 hemoglobin. Cardiology said there is nothing to do cardiology-petit. No interventions. She will stay on the same medication. Her lungs are at her baseline. She needs physical therapy. She needs to be discharged today. Please, please, please, if you cannot discharge her, please have somebody call me. Do not call the house doctor in the afternoon that she cannot go. Call the attending right now . Please have welfare case worker discharged her to TCU at [facility], [facility], [facility], [facility], [facility] or home with help. She has to be discharged today. John Brown DO KENNETH
== END 2017-08-23 18:49 | DRG 281 ==
LOC: C.ER 01:52 → C.6T 04:16 → OBSVTOIN 08-18 07:19
PROVIDERS: ADMIT Family Medicine; ATTEND Family Medicine
DX: I21.9 Acute myocardial infarction, unspecified (principal); I13.0 Hypertensive heart and chronic kidney disease with heart failure and stage 1 through stage 4 chronic kidney disease, or unspecified chronic kidney disease; F03.90 Unspecified dementia, unspecified severity, without behavioral disturbance, psychotic disturbance, mood disturbance, and anxiety; I50.9 Heart failure, unspecified; J44.9 Chronic obstructive pulmonary disease, unspecified; R07.9 Chest pain, unspecified; I25.10 Atherosclerotic heart disease of native coronary artery without angina pectoris; F31.9 Bipolar disorder, unspecified; S82.899G Other fracture of unspecified lower leg, subsequent encounter for closed fracture with delayed healing; X58.XXXD Exposure to other specified factors, subsequent encounter; Z85.3 Personal history of malignant neoplasm of breast; M81.0 Age-related osteoporosis without current pathological fracture; N18.9 Chronic kidney disease, unspecified; K21.9 Gastro-esophageal reflux disease without esophagitis

== ENCOUNTER 2017-11-06 07:22 | Emergency (ER) | payer MEDICARE ==
[2017-11-06 07:22] VITALS: BMI 17.2
[2017-11-06 07:43] VITALS: TEMP 97.8; O2SAT 100
--- NOTE | 2017-11-06 07:57 | C.PDOC ---
History Of Present Illness 72 y/o female, with history of COPD and HTN, presents to the ER complaining of anterior chest pain w/ cough and generalized body aches which have been present last night. Patient rates the pain 8/10 on the pain scale. Patient is requesting morphine for the pain.Patient denies having headache, fever,chills, and shortness of breath. Time Seen by Provider: 11/06/17 07:26 Chief Complaint (Nursing): Chest Pain History Per: Patient History/Exam Limitations: no limitations Onset/Duration Of Symptoms: Days Current Symptoms Are (Timing): Still Present Severity: Moderate Pain Scale Rating Of: 8 Past Medical History Reviewed: Historical Data, Nursing Documentation, Vital Signs Vital Signs: Last Vital Signs Temp 97.8 F 11/06/17 07:37 Pulse 96 H 11/06/17 09:50 Resp 16 11/06/17 09:50 BP 166/68 H 11/06/17 09:50 Pulse Ox 100 11/06/17 09:50 - Medical History PMH: Anemia, Anxiety, Arthritis, Back Problems, Bronchitis, CAD, CHF, COPD ( Emphysema,), CVA, Dementia, Deep Vein Thrombosis, Emphysema, Fractures (Right Hip), HTN, Hypercholesterolemia, Hyperlipidemia, Malignancy (Breast CA left 4 yrs ago, patient in remission, last chemo was 3 years ago), Osteoporosis, Peripheral Edema, Chronic Kidney Disease, Schizophrenia, TIA Surgical History: Coronary Stent (07/26/12) - [facility] Procedures ANGIOPLASTY OF OTHER NON-CORONARY VESSEL(S) (07/26/12) CONTR CEREBR ARTERIOGRAM (06/25/15) CONTRAST AORTOGRAM (07/26/12) DILATION OF 2 COR ART WITH DRUG-ELUT INTRALUM, PERC APPROACH (10/27/15) DX ULTRASOUND-HEART (04/04/15) EXCISION OF TOE NAIL, EXTERNAL APPROACH (09/17/16) EXERCISE TREATMENT OF MUSCULOSK WHOLE USING ASSIST EQUIPMENT (09/17/16) FLUOROSCOPY OF LEFT HEART USING LOW OSMOLAR CONTRAST (07/06/16) FLUOROSCOPY OF MULT COR ART USING L OSM CONTRAST (07/06/16) GAIT TRAINING/AMBULAT TREATMENT USING ASSIST EQUIPMENT (09/17/16) GROOMING/PERSONAL HYGIENE TREATMENT USING ASSIST EQUIPMENT (09/17/16) INSEJ OF DRUG-ELUTING STENT(S) OF OTH PERIPHERAL VESSEL(S) (07/26/12) INSERTION OF TWO VASCULAR STENTS (07/26/12) INSPECTION OF UPPER INTESTINAL TRACT, ENDO (10/31/16) MEASURE OF CARDIAC SAMPL & PRESSURE, L HEART, PERC APPROACH (06/05/17) PACKED CELL TRANSFUSION (11/06/13) PARTIAL HIP REPLACEMENT (11/06/13) PLAIN RADIOGRAPHY OF LEFT HEART USING LOW OSMOLAR CONTRAST (10/27/15) PLAIN RADIOGRAPHY OF LEFT HEART USING OTHER CONTRAST (06/05/17) PLAIN RADIOGRAPHY OF MULT COR ART USING L OSM CONTRAST (10/27/15) PLAIN RADIOGRAPHY OF MULT COR ART USING OTH CONTRAST (06/05/17) PLAIN RADIOGRAPHY OF R LOW EXTREM VEIN USING OTH CONTRAST (06/05/17) PROCEDURE ON FOUR OR MORE VESSELS (07/26/12) REMOVAL OF VAD FROM UP EXTREM SUBCU/FASCIA, SPRAY PAINTING MACHINE OPERATOR APPROACH (07/06/15) Family History: States: No Known Family Hx - Social History Hx Tobacco Use: Yes Hx Alcohol Use: No Hx Substance Use: No - Immunization History Hx Tetanus Toxoid Vaccination: No Hx Influenza Vaccination: No Hx Pneumococcal Vaccination: No Review Of Systems Except As Marked, All Systems Reviewed And Found Negative. Constitutional: Positive for: Malaise. Negative for: Fever, Chills Cardiovascular: Positive for: Chest Pain Respiratory: Negative for: Shortness of Breath Neurological: Negative for: Headache Physical Exam - Physical Exam Appears: Non-toxic, No Acute Distress, Other (frail, chronically ill-appearing) Skin: Normal Color, Warm Head: Atraumatic, Normacephalic Eye(s): bilateral: Normal Inspection Nose: Normal Oral Mucosa: Moist Neck: Supple Chest: Symmetrical Cardiovascular: Rhythm Regular Respiratory: Normal Breath Sounds, No Accessory Muscle Use, No Rales, No Rhonchi , No Wheezing, Other (no edema) Gastrointestinal/Abdominal: Normal Exam, Soft, No Tenderness Neurological/Psych: Oriented x3, Normal Speech, Normal Motor, Normal Sensation ED Course And Treatment - Laboratory Results Result Diagrams: 11/06/17 08:13 11/06/17 08:13 ECG: Interpreted By Me, Viewed By Me ECG Rhythm: Sinus Rhythm Interpretation Of ECG: NSR with occasional PVCs Rate From EC O2 Sat by Pulse Oximetry: 100 (RA) Pulse Ox Interpretation: Normal Medical Decision Making Medical Decision Making: Plan: --CXR --Labs --Flu Swab Patient concerned that her PMD will not give her Narcotics. Disposition Counseled Patient/Family Regarding: Studies Performed, Diagnosis, Need For Followup - Disposition Referrals: Rj Brown DO [Staff Provider] - Disposition: HOME/ ROUTINE Disposition Time: 10:02 Condition: Instructions: Chronic Pain (GEN) Forms: [facility] (Maltese), General Discharge Instructions - POA Present On Arrival: None - Clinical Impression Clinical Impression: Chronic pain - Scribe Statement The provider has reviewed the documentation as recorded by the Aliyah tMz Provider Attestation: All medical record entries made by the Saraibleti were at my direction and personally dictated by me. I have reviewed the chart and agree that the record accurately reflects my personal performance of the history, physical exam, medical decision making, and the department course for this patient. I have also personally directed, reviewed, and agree with the discharge instructions and disposition.
[2017-11-06 08:22] LABS: BASO % 0.5 % (0.0-2.0); EOS # 0.5 K/uL (0.0-0.7); HEMOGLOBIN 12.6 g/dL (11.0-16.0); LYMPH # 1.7 K/uL (1.0-4.3); LYMPH % 17.7 % (20.0-40.0); MEAN CORPUSCULAR HEMOGLOBIN 24.8 pg (27.0-31.0); MEAN CORPUSCULAR HGB CONC 32.3 g/dL (33.0-37.0); MEAN PLATELET VOLUME 9.4 fL (7.2-11.7); MONO # 0.5 K/uL (0.0-0.8); MONO % 5.8 % (0.0-10.0); NEUT # 6.6 K/uL (1.8-7.0); RBC 5.08 Mil/uL (3.80-5.20); RED CELL DISTRIBUTION WIDTH 18.2 % (11.5-14.5); WHITE BLOOD COUNT 9.4 K/uL (4.8-10.8)
[2017-11-06 08:33] LABS: BLOOD UREA NITROGEN 17 mg/dL (7-17); CALCIUM 9.7 mg/dl (8.6-10.4); GFR AFRICAN-AMERICAN > 60; GFR NON-AFRICAN AMERICAN 54
--- NOTE | 2017-11-06 09:24 | RAD ---
Chest x-ray single frontal view History: Shortness of breath. Comparison: 08/17/2017 Findings: Diffuse increased interstitial lung markings. Biapical pleural thickening. Rounded nodular density at the left lung base may represent nipple shadow versus small nodule. Clinical correlation. Additional mild patchy increased markings at the left lung base. Tortuous aorta. Degenerative changes in the spine and shoulders. Impression: Diffuse increased interstitial lung markings. Biapical pleural thickening. Rounded nodular density at the left lung base may represent nipple shadow versus small nodule. Clinical correlation. Additional mild patchy increased markings at the left lung base. Tortuous aorta.
[2017-11-06 09:27] VITALS: RESP 16
[2017-11-06 09:51] VITALS: BP 166/68; PULSE 96
--- NOTE | 2017-11-07 11:48 | CARD ---
APPROVED REPORT EKG Measurement Heart [id number] <Conclusion> Sinus rhythm with premature supraventricular complexes Minimal voltage criteria for LVH, may be normal variant Septal infarct, age undetermined T wave abnormality, consider lateral ischemia Abnormal ECG
== END 2017-11-06 10:40 | disposition home or self-care (01) ==
LOC: C.ER 07:22
DX: G89.29 Other chronic pain (principal); I10 Essential (primary) hypertension; I25.10 Atherosclerotic heart disease of native coronary artery without angina pectoris; Z86.73 Personal history of transient ischemic attack (TIA), and cerebral infarction without residual deficits; Z87.891 Personal history of nicotine dependence
CPT/HCPCS: 71045; 80048; 85025; 87804; 93005; 96374; 99285; J1885

== ENCOUNTER 2017-11-11 06:19 | Inpatient (IN) | payer MEDICARE ==
[2017-11-11 06:37] VITALS: BMI 19.5
[2017-11-11] MEDS ORDERED: Albuterol-Ipratrop 3 mg / 0.5 (3 ml) UD ONE (06:51)
--- NOTE | 2017-11-11 07:31 | C.PDOC ---
History Of Present Illness 72 y/o female with hx of chronic COPD presents to ED with complaints of abdominal pain that began last night. She states pain is sharp and and stabbing. Associated symptoms are SOB, chest pain, nausea. Denies vomiting, fever or diarrhea. Pt requesting Morphine. Pt presented to ER 5 days ago with similar symptoms/request. She states that she has had a "heart attack 3 times" with similar symptoms. Time Seen by Provider: 11/11/17 07:16 Chief Complaint (Nursing): Abdominal Pain History Per: Patient History/Exam Limitations: no limitations Onset/Duration Of Symptoms: Hrs Current Symptoms Are (Timing): Still Present Location Of Pain/Discomfort: Diffuse Quality Of Discomfort: Sharp, Stabbing Associated Symptoms: Nausea. denies: Fever, Chills, Vomiting, Diarrhea Exacerbating Factors: None Alleviating Factors: None Recent travel outside of the [place]: No Abnormal Vaginal Bleeding: No Past Medical History Reviewed: Historical Data, Nursing Documentation, Vital Signs Vital Signs: Last Vital Signs Temp 98.1 F 11/11/17 06:43 Pulse 103 H 11/11/17 07:26 Resp 20 11/11/17 06:43 BP 172/80 H 11/11/17 06:43 Pulse Ox 97 11/11/17 09:06 - Medical History PMH: Anemia, Anxiety, Arthritis, Back Problems, Bronchitis, CAD, CHF, COPD ( Emphysema,), CVA, Dementia, Deep Vein Thrombosis, Emphysema, Fractures (Right Hip), HTN, Hypercholesterolemia, Hyperlipidemia, Malignancy (Breast CA left 4 yrs ago, patient in remission, last chemo was 3 years ago), Osteoporosis, Peripheral Edema, Chronic Kidney Disease, Schizophrenia, TIA Surgical History: Coronary Stent (07/26/12) - [facility] Procedures ANGIOPLASTY OF OTHER NON-CORONARY VESSEL(S) (07/26/12) CONTR CEREBR ARTERIOGRAM (06/25/15) CONTRAST AORTOGRAM (07/26/12) DILATION OF 2 COR ART WITH DRUG-ELUT INTRALUM, PERC APPROACH (10/27/15) DX ULTRASOUND-HEART (04/04/15) EXCISION OF TOE NAIL, EXTERNAL APPROACH (09/17/16) EXERCISE TREATMENT OF MUSCULOSK WHOLE USING ASSIST EQUIPMENT (09/17/16) FLUOROSCOPY OF LEFT HEART USING LOW OSMOLAR CONTRAST (07/06/16) FLUOROSCOPY OF MULT COR ART USING L OSM CONTRAST (07/06/16) GAIT TRAINING/AMBULAT TREATMENT USING ASSIST EQUIPMENT (09/17/16) GROOMING/PERSONAL HYGIENE TREATMENT USING ASSIST EQUIPMENT (09/17/16) INSEJ OF DRUG-ELUTING STENT(S) OF OTH PERIPHERAL VESSEL(S) (07/26/12) INSERTION OF TWO VASCULAR STENTS (07/26/12) INSPECTION OF UPPER INTESTINAL TRACT, ENDO (10/31/16) MEASURE OF CARDIAC SAMPL & PRESSURE, L HEART, PERC APPROACH (06/05/17) PACKED CELL TRANSFUSION (11/06/13) PARTIAL HIP REPLACEMENT (11/06/13) PLAIN RADIOGRAPHY OF LEFT HEART USING LOW OSMOLAR CONTRAST (10/27/15) PLAIN RADIOGRAPHY OF LEFT HEART USING OTHER CONTRAST (06/05/17) PLAIN RADIOGRAPHY OF MULT COR ART USING L OSM CONTRAST (10/27/15) PLAIN RADIOGRAPHY OF MULT COR ART USING OTH CONTRAST (06/05/17) PLAIN RADIOGRAPHY OF R LOW EXTREM VEIN USING OTH CONTRAST (06/05/17) PROCEDURE ON FOUR OR MORE VESSELS (07/26/12) REMOVAL OF VAD FROM UP EXTREM SUBCU/FASCIA, CHILDREN'S SERVICE SUPERVISOR APPROACH (07/06/15) Family History: States: Unknown Family Hx - Social History Hx Tobacco Use: Yes Hx Alcohol Use: No Hx Substance Use: No - Immunization History Hx Tetanus Toxoid Vaccination: No Hx Influenza Vaccination: No Hx Pneumococcal Vaccination: No Review Of Systems Constitutional: Negative for: Fever, Chills Cardiovascular: Positive for: Chest Pain. Negative for: Edema, Light Headedness Respiratory: Positive for: Shortness of Breath Gastrointestinal: Positive for: Nausea, Abdominal Pain. Negative for: Vomiting , Diarrhea Neurological: Negative for: Weakness, Numbness Physical Exam - Physical Exam Appears: Non-toxic, Chronically Ill, Other (uncomfortable; in pain; requesting morphine) Skin: Normal Color, Warm, Dry Head: Atraumatic, Normacephalic Eye(s): bilateral: Normal Inspection Oral Mucosa: Moist Chest: Symmetrical, No Tenderness Cardiovascular: Rhythm Irregular (tachycardic) Respiratory: Normal Breath Sounds, No Decreased Breath Sounds, No Rales, No Rhonchi, No Wheezing Gastrointestinal/Abdominal: Tenderness (diffuse), Other (rigid with palpation ) Extremity: Normal ROM, No Pedal Edema, No Deformity Neurological/Psych: Oriented x3, Normal Speech, Normal Cognition ED Course And Treatment - Laboratory Results Result Diagrams: 11/11/17 08:42 11/11/17 08:42 Lab Interpretation: Abnormal (Elevated WBC 14.9, BUN 22, Troponin 0.2280) ECG: Interpreted By Me ECG Rhythm: Sinus Tachycardia (with supraventricular ectopy) ECG Interpretation: No Changes From Prior O2 Sat by Pulse Oximetry: 97 (RA) Pulse Ox Interpretation: Normal - Radiology CXR: Interpreted by Me CXR Interpretation: Yes: Other (diffuse interstitial changes, right pleural effusion) - Other Rad Abdomen X-Ray: Interpreted by Me Interpretation: Bilateral iliac stents, right hip prosthesis, Normal bowel pattern. Reevaluation Time: :28 Reassessment Condition: Improved - Physician Consult Information Time Consulting Physician Contacted: :28 Physician Contacted: John Brown Outcome Of Conversation: He knows the patient well and will admit to his service for chest pain with elevated troponin. Medical Decision Making Medical Decision Making: Administered Morphine. Ordered EKG, CXR, blood work, Abdomen X-Ray, and urinalysis. Disposition - Disposition Disposition: HOSPITALIZED Disposition Time: 10:29 Condition: STABLE - POA Present On Arrival: None - Clinical Impression Clinical Impression: Abdominal pain, Chest pain - Scribe Statement The provider has reviewed the documentation as recorded by the Scribleti Del Cid All medical record entries made by the Scribe were at my direction and personally dictated by me. I have reviewed the chart and agree that the record accurately reflects my personal performance of the history, physical exam, medical decision making, and the department course for this patient. I have also personally directed, reviewed, and agree with the discharge instructions and disposition.
[2017-11-11 08:59] LABS: BASO # 0.1 K/uL (0.0-0.2); BASO % 0.6 % (0.0-2.0); EOS # 0.2 K/uL (0.0-0.7); EOS % 1.3 % (0.0-4.0); HEMOGLOBIN 11.3 g/dL (11.0-16.0); LYMPH # 1.3 K/uL (1.0-4.3); LYMPH % 8.8 % (20.0-40.0); MEAN CELL VOLUME 76.4 fL (81.0-99.0); MEAN CORPUSCULAR HEMOGLOBIN 24.3 pg (27.0-31.0); MEAN CORPUSCULAR HGB CONC 31.8 g/dL (33.0-37.0); MEAN PLATELET VOLUME 9.9 fL (7.2-11.7); MONO # 0.5 K/uL (0.0-0.8); MONO % 3.5 % (0.0-10.0); NEUT # 12.8 K/uL (1.8-7.0); NEUT % 85.8 % (50.0-75.0); NRBC % 0.1 % (0.0-2.0); PLATELET COUNT 317 K/uL (130-400); RBC 4.65 Mil/uL (3.80-5.20); RED CELL DISTRIBUTION WIDTH 18.3 % (11.5-14.5); WHITE BLOOD COUNT 14.9 K/uL (4.8-10.8)
[2017-11-11 09:15] LABS: ALB/GLOB RATIO 1.3 (1.0-2.1); ALBUMIN 4.1 g/dL (3.5-5.0); CALCIUM 9.5 mg/dl (8.6-10.4)
[2017-11-11 09:40] LABS: EOSINOPHIL 2 % (0-4); LYMPHOCYTE 8 % (20-40); MONOCYTE 2 % (0-10); NEUTROPHIL 88 % (50-75); TOTAL CELLS COUNTED 100
[2017-11-11 09:41] LABS: ANISOCYTOSIS SLIGHT; PLATELET ESTIMATE NORMAL (NORMAL)
[2017-11-11 09:42] LABS: HYPOCHROMIC SLIGHT; POLYCHROMIC SLIGHT
[2017-11-11 09:44] LABS: TROPONIN I 0.228 ng/mL (0.00-0.120)
[2017-11-11] MEDS ORDERED: Sodium Chloride 0.45% 1,000 ML IV SCH (11:30)
--- NOTE | 2017-11-11 11:59 | RAD ---
HISTORY: abd pain COMPARISON: Chest x-ray performed 11/06/17 TECHNIQUE: Chest, one view. FINDINGS: LUNGS: Interstitial prominence may be chronic. Mild bibasilar atelectasis. Biapical pleural thickening. Please note that chest x-ray has limited sensitivity for the detection of pulmonary masses. PLEURA: No significant pleural effusion identified. No definite pneumothorax . CARDIOVASCULAR: Cardiomegaly. Atherosclerotic calcification of the aorta. OSSEOUS STRUCTURES: Osseous demineralization. Degenerative changes. VISUALIZED UPPER ABDOMEN: Unremarkable. OTHER FINDINGS: None. IMPRESSION: Interstitial prominence may be chronic. Mild bibasilar atelectasis. Biapical pleural thickening. Cardiomegaly. Atherosclerotic calcifications.
--- NOTE | 2017-11-11 12:02 | RAD ---
HISTORY: abd pain COMPARISON: CT abdomen and pelvis performed 10/28/16 FINDINGS: BOWEL: Nonobstructive bowel gas pattern. Mild constipation. No definite free air. BONES: Osseous demineralization. Degenerative changes. Right hip arthroplasty. OTHER FINDINGS: Bi-iliac vascular stents. IMPRESSION: No acute findings. See above.
--- NOTE | 2017-11-11 16:31 | CP.PCM.CON ---
<Avis Ledbetter - Last Filed: 11/11/17 16:26> History of Present Illness - History of Present Illness History of Present Illness: GI Fellow PGY4 Consult Note This is a 72 year old female with history of CVA, TIA, CAD, NC s/p PCI, PVD s/p R iliac stent, Breast Cancer s/p lumpectomy with chemoradiation, dCHF EF 60-65% 09/2016, Hypertension, Hyperlipidemia, Fall s/p Right hip replacement with resultant chronic hip pain presenting with chest pain. She describes severe pain , 07/11 not controlled with analgesics with associated SOB. Pt also reports lower admonal pain at times but at this time having left sternal chest pain. She denies any diarrhea, constipation, melena, hematochezia. Admits to 1-2 bowel movements daily without straining. Denies dysphagia, odynophagia, nausea or vomiting. Denies use of Aleve, Advil, or Ibuprofen. Daily Aspirin and Plavix with cardiac history. Prior EGD 11/18 with gastritis and duodenitis but no biopsy as pt was on plavix, pt was to fu outpt for repeat EGD for biospy but pt did not followup. Prior colonoscopy three years ago endorsed as normal per patient. In the ER pt was found to have elevated troponins and cardiology was consulted. ROS: A 12pt ROS was negative except as above PmHx: As stated in HPI PsHx: As stated in HPI SHx: Hx of tobacco use, denies etoh or drugs FHx: denies colon ca Past Patient History - Infectious Disease Hx of Infectious Diseases: None - Tetanus Immunizations Tetanus Immunization: Unknown - Past Medical History & Family History Past Medical History?: Yes - Past Social History Smoking Status: Current Some Days Smoker - CARDIAC Hx Congestive Heart Failure: Yes Hx Hypercholesterolemia: Yes Hx Hypertension: Yes Hx Peripheral Edema: Yes - PULMONARY Hx Bronchitis: Yes Hx Chronic Obstructive Pulmonary Disease (COPD): Yes (Emphysema,) Hx Emphysema: Yes - NEUROLOGICAL Hx Dementia: Yes Hx Transient Ischemic Attacks (TIA): Yes - HEENT Hx HEENT Problems: Yes (left eye blurry) 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) Other/Comment: [place] left ear - RENAL Hx Chronic Kidney Disease: Yes - ENDOCRINE/METABOLIC Hx Endocrine Disorders: No - HEMATOLOGICAL/ONCOLOGICAL Hx Anemia: Yes - INTEGUMENTARY Hx Dermatological Problems: No - MUSCULOSKELETAL/RHEUMATOLOGICAL Hx Arthritis: Yes Hx Falls: No Hx Fractures: Yes (Right Hip) Hx Osteoporosis: Yes - GASTROINTESTINAL Hx Gastrointestinal Disorders: Yes Hx Gastroesophageal Reflux: Yes - PSYCHIATRIC Hx Anxiety: Yes Hx Schizophrenia: Yes Hx Substance Use: No - SURGICAL HISTORY Hx Coronary Stent: Yes (07/26/12) - ANESTHESIA Hx Anesthesia: Yes Hx Anesthesia Reactions: No Hx Malignant Hyperthermia: No Meds Allergies/Adverse Reactions: Allergies Allergy/AdvReac Type Severity Reaction Status Date / Time iodine Allergy Severe ANAPHYLAXIS Verified 11/06/17 07:43 iv dye Allergy Severe ANAPHYLAXIS Uncoded 11/06/17 07:43 - Medications Medications: Current Medications Aspirin (Ecotrin) 81 mg PO DAILY [facility] Clonidine HCl (Catapres) 0.1 mg PO Q8H [facility] Last Admin: 11/11/17 13:36 Dose: 0.1 mg Diltiazem HCl (Cardizem Cd) 120 mg PO DAILY [facility] Heparin Sodium (Porcine) (Heparin) 5,000 units SC Q12 [facility] Hydralazine HCl (Apresoline) 75 mg PO TID [facility] Last Admin: 11/11/17 14:37 Dose: 75 mg Sodium Chloride (Sodium Chloride 0.45%) 1,000 mls @ 30 mls/hr IV .Q24H [facility] Last Admin: 11/11/17 13:35 Dose: 30 mls/hr Ceftriaxone Sodium 1 gm/ (Sodium Chloride) 100 mls @ 100 mls/hr IVPB DAILY [facility] Last Admin: 11/11/17 13:36 Dose: 100 mls/hr Morphine Sulfate (Morphine) 2 mg IVP Q4 PRN PRN Reason: Pain, moderate (4-7) Pantoprazole Sodium (Protonix Inj) 40 mg IVP DAILY [facility] Last Admin: 11/11/17 13:35 Dose: 40 mg Ranolazine (Ranexa) 500 mg PO BID [facility] Fluticasone/Salmeterol (Advair Diskus 250/50) 1 puff INH RQ12 [facility] Tiotropium [place] (Spiriva) 18 mcg INH RQ24 [facility] Physical Exam - Constitutional Appears: Non-toxic, No Acute Distress, Confused, Cachectic, Chronically Ill - Head Exam Head Exam: ATRAUMATIC, NORMAL INSPECTION, NORMOCEPHALIC - Eye Exam Eye Exam: EOMI, Normal appearance - ENT Exam ENT Exam: Mucous Membranes Moist - Neck Exam Neck exam: Positive for: Full Rom - Respiratory Exam Respiratory Exam: Decreased Breath Sounds, Wheezes - Cardiovascular Exam Cardiovascular Exam: RRR - GI/Abdominal Exam GI & Abdominal Exam: Normal Bowel Sounds. absent: Distended, Firm, Guarding - Extremities Exam Extremities exam: Positive for: normal inspection - Back Exam Back exam: FULL ROM - Neurological Exam Neurological exam: Alert, Oriented x3 - Psychiatric Exam Psychiatric exam: Normal Affect, Normal Mood - Skin Skin Exam: Dry, Intact, Normal Color, Warm Results - Vital Signs Recent Vital Signs: Last Vital Signs Temp 97.2 F L 11/11/17 14:33 Pulse 85 11/11/17 14:33 Resp 21 11/11/17 14:33 BP 151/68 H 11/11/17 14:33 Pulse Ox 93 L 11/11/17 14:33 - Labs Result Diagrams: 11/11/17 08:42 11/11/17 08:42 Labs: Laboratory Results - last 24 hr 11/11/17 11/11/17 08:42 08:42 WBC 14.9 H D RBC 4.65 Hgb 11.3 Hct 35.5 MCV 76.4 L MCH 24.3 L MCHC 31.8 L RDW 18.3 H Plt Count 317 MPV 9.9 Neut % (Auto) 85.8 H Lymph % (Auto) 8.8 L [place] % (Auto) 3.5 Eos % (Auto) 1.3 Baso % (Auto) 0.6 Neut # (Auto) 12.8 H Lymph # (Auto) 1.3 [place] # (Auto) 0.5 Eos # (Auto) 0.2 Baso # (Auto) 0.1 Neutrophils % (Manual) 88 H Lymphocytes % (Manual) 8 L Monocytes % (Manual) 2 Eosinophils % (Manual) 2 Platelet Estimate Normal Polychromasia Slight Hypochromasia (manual) Slight Anisocytosis (manual) Slight Sodium 142 Potassium 3.6 Chloride 105 Carbon Dioxide 23 Anion Gap 18 BUN 22 H Creatinine 1.2 Est GFR ( Amer) 53 Est GFR (Non-Af Amer) 44 Random Glucose 148 H Calcium 9.5 Total Bilirubin 0.6 AST 14 ALT 13 Alkaline Phosphatase 95 Troponin I 0.2280 H* Total Protein 7.4 Albumin 4.1 Globulin 3.2 Albumin/Globulin Ratio 1.3 Lipase 33 Assessment & Plan - Assessment and Plan (Free Text) Assessment: This is a 72yF with hx of CAD presenting with chest pain. 1. Chest pain 2. Elevated Troponin 3. Hx of gastritis and duodenitis Plan: -Continue supportive care with pain control and antiemetics -CP with elevated troponin in setting of CAD, cardiology cs and further recs -PPI daily with plavix and aspirin therapy -EGD 11/18 with gastritis and duodenitis -No GI issues at this time -Please call with any questions or concerns <Geronimo Macario MD - Last Filed: 11/11/17 18:14> Meds - Medications Medications: Current Medications Aspirin (Ecotrin) 81 mg PO DAILY [facility] Clonidine HCl (Catapres) 0.1 mg PO Q8H [facility] Last Admin: 11/11/17 13:36 Dose: 0.1 mg Diltiazem HCl (Cardizem Cd) 120 mg PO DAILY [facility] Heparin Sodium (Porcine) (Heparin) 5,000 units SC Q12 [facility] Hydralazine HCl (Apresoline) 75 mg PO TID [facility] Last Admin: 11/11/17 17:06 Dose: 75 mg Sodium Chloride (Sodium Chloride 0.45%) 1,000 mls @ 30 mls/hr IV .Q24H [facility] Last Admin: 11/11/17 13:35 Dose: 30 mls/hr Ceftriaxone Sodium 1 gm/ (Sodium Chloride) 100 mls @ 100 mls/hr IVPB DAILY [facility] Last Admin: 11/11/17 13:36 Dose: 100 mls/hr Morphine Sulfate (Morphine) 2 mg IVP Q4 PRN PRN Reason: Pain, moderate (4-7) Last Admin: 11/11/17 17:06 Dose: 2 mg Pantoprazole Sodium (Protonix Inj) 40 mg IVP DAILY [facility] Last Admin: 11/11/17 13:35 Dose: 40 mg Ranolazine (Ranexa) 500 mg PO BID [facility] Last Admin: 11/11/17 17:06 Dose: 500 mg Fluticasone/Salmeterol (Advair Diskus 250/50) 1 puff INH RQ12 [facility] Tiotropium [place] (Spiriva) 18 mcg INH RQ24 [facility] Results - Vital Signs Recent Vital Signs: Last Vital Signs Temp 97.2 F L 11/11/17 14:33 Pulse 85 11/11/17 14:33 Resp 21 02/10/18 14:33 BP 151/68 H 11/11/17 14:33 Pulse Ox 93 L 11/11/17 14:33 - Labs Result Diagrams: 11/11/17 08:42 11/11/17 08:42 Labs: Laboratory Results - last 24 hr 11/11/17 11/11/17 08:42 08:42 WBC 14.9 H D RBC 4.65 Hgb 11.3 Hct 35.5 MCV 76.4 L MCH 24.3 L MCHC 31.8 L RDW 18.3 H Plt Count 317 MPV 9.9 Neut % (Auto) 85.8 H Lymph % (Auto) 8.8 L [place] % (Auto) 3.5 Eos % (Auto) 1.3 Baso % (Auto) 0.6 Neut # (Auto) 12.8 H Lymph # (Auto) 1.3 [place] # (Auto) 0.5 Eos # (Auto) 0.2 Baso # (Auto) 0.1 Neutrophils % (Manual) 88 H Lymphocytes % (Manual) 8 L Monocytes % (Manual) 2 Eosinophils % (Manual) 2 Platelet Estimate Normal Polychromasia Slight Hypochromasia (manual) Slight Anisocytosis (manual) Slight Sodium 142 Potassium 3.6 Chloride 105 Carbon Dioxide 23 Anion Gap 18 BUN 22 H Creatinine 1.2 Est GFR ( Amer) 53 Est GFR (Non-Af Amer) 44 Random Glucose 148 H Calcium 9.5 Total Bilirubin 0.6 AST 14 ALT 13 Alkaline Phosphatase 95 Troponin I 0.2280 H* Total Protein 7.4 Albumin 4.1 Globulin 3.2 Albumin/Globulin Ratio 1.3 Lipase 33 Attending/Attestation - Attestation I have personally seen and examined this patient.: Yes I have fully participated in the care of the patient.: Yes I have reviewed all pertinent clinical information: Yes Notes (Text): 11/11/17 18:10 Patient is a 72 year old F with history of COPD, CAD s/p stent on plavix, arterial disease, HTN, DM presenting with chest pain and elevated troponin. She complains of fatigue and dyspnea on exertion. GI consulted for alleged abdominal pain which mostly looks like chest pain. EGD 11/18 showed duodenitis and gastritis. Denies rectal bleeding, dark stools. Cardiology consult mandated. No Gi work up necessary at this time as cardiac symptoms are overwhelming. Continue PPI daily with anti platelet. Will sign off now in absence of GI symptoms. Thank you for letting us participate in the care of your patient
[2017-11-11] MEDS: Ranolazine 500 mg Extended Release Tablets PO SCH (17:06)
[2017-11-11] MEDS: Fluticasone-Salmeterol 250-50mcg Diskus INH SCH (19:46)
--- NOTE | 2017-11-11 22:29 | HP ---
HISTORY OF PRESENT ILLNESS: I have known Kathy for many years, I visited her house a week or 2 ago. She was doing quite well. Now, she comes in with a history of sharp pain and stabbing. She is having abdominal pain, chest pain, foot pain. It kind of all started, gotten worse in the past 24 to 36 hours. She could not take it, she came to the emergency room. She got some morphine that helped a little bit. She felt like she is having a heart attack. She has had it before, it is very similar symptoms. PAST MEDICAL HISTORY: She has a big medical history, anemia, anxiety, arthritis, back pain, bronchitis, CAD, CHF, COPD, emphysema, CVA, dementia, deep vein thrombosis, fractures of right hip, hypertension, hypercholesterolemia, malignancy, breast cancer left breast 4 years ago, patient in remission, last chemo was 3 years ago, osteoporosis, peripheral edema, chronic kidney disease, schizophrenia, TIA, fractured foot, foot pain, coronary stents, angioplasty, aortograms, arteriograms, multiple drug-eluting stents, excision of toenails, multiple foot procedures, fluoroscopies, multiple gait training through physical therapies and subacute rehab visits, drug-eluting stents peripheral vessels, insertion of two vascular stents, left heart cath, transfused, partial hip replacement; these are just some of the things she has had. SOCIAL HISTORY: She still smokes. No alcohol. No drugs. FAMILY HISTORY: Hypertension and diabetes in the family. REVIEW OF SYSTEMS: No acute vision or hearing changes. She is very upset. She is having chest pain, abdominal pain, feet pain. Everything started coming on her, she is very upset, cannot get any relief. Just not feeling well. No appetite. She is getting weaker. She is nauseous. Abdominal pain and weakness. PHYSICAL EXAMINATION: VITAL SIGNS: She has 97.8 temp, 103 pulse, 161/76 blood pressure, 96% O2 sat. HEENT: Head atraumatic, normocephalic. She is chronically ill appearing. Very uncomfortable, the morphine made her more calm. No acute vision or hearing changes, but old dry throat. NECK: Supple. HEART: Regular rate. LUNGS: Decreased breath sounds bilaterally, but clear to auscultation. Full inspiration. Normal breathing. No rales or rhonchi. ABDOMEN: Soft and nontender. As I palpate, it was tender earlier. No masses were palpated. Positive bowel sounds. No guarding. No rebound. EXTREMITIES: No edema but the feet are painful to palpation, with decreased range of motion. NEUROLOGIC: Alert and oriented at this time. LABORATORY DATA: .She has a 14.9 white count, 11.3 hemoglobin, 35.5 hematocrit and 317 platelets. She has diffuse changes possible right pleural effusion in her lungs on x-ray of the chest. Abdominal x-ray showed biliary/iliac stents, right hip prosthesis, normal bowel pattern. Sodium 142 , potassium 3.6, BUN 22, creatinine 1.2, sugar 148. Troponin I was 0.22 which is elevated. Albumin is 4.1, total protein 7.4, lipase 33, calcium is 9.5, total bili is 0.68, AST is 14, ALT is 13, alk phos 95. ASSESSMENT AND PLAN: She has got consults with Cardiology, GI, Infectious Disease and Podiatry. IV fluids, her medications morphine for pain, checking troponin, physical therapy. She is definitely failing. We will put her on some antibiotics. We will see what the Infectious Disease has to say. Physical therapy. She has multiple problems, chest pain, elevated white count, abdominal pain, nauseousness, feet pain, possible non-ST elevation myocardial infarction, possible sepsis. John Brown DO MTDD
[2017-11-12] MEDS: Tiotropium 18 mcg Cap For Inhalation INH SCH (07:10)
[2017-11-12] MEDS: Fluticasone-Salmeterol 250-50mcg Diskus INH SCH ×2 (07:10→19:13)
[2017-11-12 08:59] LABS: MEAN CELL VOLUME 75.9 fL (81.0-99.0); MEAN CORPUSCULAR HEMOGLOBIN 24.3 pg (27.0-31.0); MEAN PLATELET VOLUME 10.2 fL (7.2-11.7); RBC 3.38 Mil/uL (3.80-5.20); RED CELL DISTRIBUTION WIDTH 18.2 % (11.5-14.5)
[2017-11-12 09:03] LABS: ALB/GLOB RATIO 1.2 (1.0-2.1); ALBUMIN 2.9 g/dL (3.5-5.0); CALCIUM 8.7 mg/dl (8.6-10.4)
[2017-11-12 09:20] LABS: HEMOGLOBIN 8.2 g/dL (11.0-16.0); WHITE BLOOD COUNT 5.9 K/uL (4.8-10.8)
[2017-11-12 09:30] LABS: ALB/GLOB RATIO 1.1 (1.0-2.1); ALBUMIN 2.9 g/dL (3.5-5.0); CALCIUM 8.4 mg/dl (8.6-10.4)
[2017-11-12 09:55] LABS: TROPONIN I 0.559 ng/mL (0.00-0.120)
[2017-11-12] MEDS: Sodium Chloride 0.45% 1,000 ML IV SCH ×2 (10:00→16:00)
[2017-11-12] MEDS: diltiaZEM 120 mg/24 Hours CD Cap PO SCH (10:50)
[2017-11-12] MEDS: Ranolazine 500 mg Extended Release Tablets PO SCH ×2 (11:00→20:35)
--- NOTE | 2017-11-12 14:08 | CP.PCM.CON ---
History of Present Illness - History of Present Illness History of Present Illness: Podiatry Consult Note - Dr. Greenfield 72 y/o female with PMHx of CAD with coronary and drug-eluting stents, CHF, COPD , emphysema, CVA, dementia, DVT, HTN, HLD, malignant breast cancer, anemia, anxiety, CKD, schizophrenia and TIA seen at bedside this morning for evaluation and management of left foot pain. Pt states she broke a bone in her foot many many years ago and it never healed properly. She says she was in a cast for 3 months and then a boot ,but since then has never been able to fully bear weight. She states it is still painful to bear weight and she often compensates on the other limb. Says she wants to be seen more by physical therapy so she can walk better. Denies any history of diabetes or foot ulcerations. Denies any recent trauma to the lower extremities. Denies F/C/N/V/CP/SOb PSH: coronary stents, partial hip replacement, catheterization of heart All: iodine, IV dye Soc: chronic smoker; denies EtOH or drug use FamHx: HTN, DM in family Review of Systems - Review of Systems All systems: reviewed and no additional remarkable complaints except (per HPI) Past Patient History - Infectious Disease Hx of Infectious Diseases: None - Tetanus Immunizations Tetanus Immunization: Unknown - Past Medical History & Family History Past Medical History?: Yes - Past Social History Smoking Status: Current Some Days Smoker - CARDIAC Hx Congestive Heart Failure: Yes Hx Hypercholesterolemia: Yes Hx Hypertension: Yes Hx Peripheral Edema: Yes - PULMONARY Hx Bronchitis: Yes Hx Chronic Obstructive Pulmonary Disease (COPD): Yes (Emphysema,) Hx Emphysema: Yes - NEUROLOGICAL Hx Dementia: Yes Hx Transient Ischemic Attacks (TIA): Yes - HEENT Hx HEENT Problems: Yes (left eye blurry) 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) Other/Comment: [place] left ear - RENAL Hx Chronic Kidney Disease: Yes - ENDOCRINE/METABOLIC Hx Endocrine Disorders: No - HEMATOLOGICAL/ONCOLOGICAL Hx Anemia: Yes - INTEGUMENTARY Hx Dermatological Problems: No - MUSCULOSKELETAL/RHEUMATOLOGICAL Hx Arthritis: Yes Hx Falls: No Hx Fractures: Yes (Right Hip) Hx Osteoporosis: Yes - GASTROINTESTINAL Hx Gastrointestinal Disorders: Yes Hx Gastroesophageal Reflux: Yes - PSYCHIATRIC Hx Anxiety: Yes Hx Schizophrenia: Yes Hx Substance Use: No - SURGICAL HISTORY Hx Coronary Stent: Yes (07/26/12) - ANESTHESIA Hx Anesthesia: Yes Hx Anesthesia Reactions: No Hx Malignant Hyperthermia: No Meds Allergies/Adverse Reactions: Allergies Allergy/AdvReac Type Severity Reaction Status Date / Time iodine Allergy Severe ANAPHYLAXIS Verified 11/06/17 07:43 iv dye Allergy Severe ANAPHYLAXIS Uncoded 11/06/17 07:43 - Medications Medications: Current Medications Aspirin (Ecotrin) 81 mg PO DAILY [facility] Last Admin: 11/12/17 10:50 Dose: 81 mg Clonidine HCl (Catapres) 0.1 mg PO Q8H [facility] Last Admin: 11/12/17 12:00 Dose: 0.1 mg Diltiazem HCl (Cardizem Cd) 120 mg PO DAILY [facility] Last Admin: 11/12/17 10:50 Dose: 120 mg Heparin Sodium (Porcine) (Heparin) 5,000 units SC Q12 [facility] Last Admin: 11/12/17 10:50 Dose: 5,000 units Hydralazine HCl (Apresoline) 75 mg PO TID [facility] Last Admin: 11/12/17 13:27 Dose: 75 mg Ceftriaxone Sodium 1 gm/ (Sodium Chloride) 100 mls @ 100 mls/hr IVPB DAILY [facility] Last Admin: 11/12/17 09:25 Dose: 100 mls/hr Sodium Chloride (Sodium Chloride 0.45%) 1,000 mls @ 80 mls/hr IV .[id number] [facility] Last Admin: 11/12/17 10:00 Dose: 80 mls/hr Morphine Sulfate (Morphine) 2 mg IVP Q4 PRN PRN Reason: Pain, moderate (4-7) Last Admin: 11/12/17 12:30 Dose: 2 mg Pantoprazole Sodium (Protonix Inj) 40 mg IVP DAILY [facility] Last Admin: 11/12/17 10:50 Dose: 40 mg Ranolazine (Ranexa) 500 mg PO BID [facility] Last Admin: 11/12/17 11:00 Dose: 500 mg Fluticasone/Salmeterol (Advair Diskus 250/50) 1 puff INH RQ12 [facility] Last Admin: 11/12/17 07:10 Dose: 1 puff Tiotropium [place] (Spiriva) 18 mcg INH RQ24 [facility] Last Admin: 11/12/17 07:10 Dose: 18 mcg Physical Exam - Constitutional Appears: Well, Non-toxic, No Acute Distress - Extremities Exam Additional comments: Lower extremity examination: Vasc: DP/PT pulses palpable 2/4 B/L. CFT < 3 sec to all digits. Diffuse varicosities noted to lower extremities. No pedal edema noted. Temperature gradient warm to cool from proximal to distal. Derm: No open lesions, no erythema, no ecchymosis, no interdigital maceration. Nails normotrophic and hygienic x 10. Neuro: Protective sensation grossly intact Ortho: No tenderness to palpation of left foot. Ankle, STJ, MTJ, 1st MPJ ROM are WNL on passive assessment. Muscle strength graded 4/5 to all muscle groups. - Neurological Exam Neurological exam: Alert, Oriented x3 - Psychiatric Exam Psychiatric exam: Agitated Results - Vital Signs Recent Vital Signs: Last Vital Signs Temp 97.2 F L 11/11/17 14:33 Pulse 68 11/12/17 07:00 Resp 21 11/11/17 14:33 BP 138/54 L 11/12/17 05:10 Pulse Ox 97 11/12/17 05:10 - Labs Result Diagrams: 11/12/17 08:29 11/12/17 09:14 Labs: Laboratory Results - last 24 hr 11/12/17 11/12/17 11/12/17 00:26 08:29 08:29 WBC 5.9 D RBC 3.38 L Hgb 8.2 L D Hct 25.7 L MCV 75.9 L MCH 24.3 L MCHC 32.0 L RDW 18.2 H Plt Count 203 D MPV 10.2 Sodium 139 Potassium 3.6 Chloride 106 Carbon Dioxide 23 Anion Gap 13 BUN 24 H Creatinine 1.3 H Est GFR ( Amer) 49 Est GFR (Non-Af Amer) 40 Random Glucose 93 Calcium 8.7 Total Bilirubin 0.5 AST 13 L ALT 14 Alkaline Phosphatase 59 Troponin I 0.3710 H* Total Protein 5.3 L Albumin 2.9 L D Globulin 2.5 Albumin/Globulin Ratio 1.2 11/12/17 09:14 WBC RBC Hgb Hct MCV MCH MCHC RDW Plt Count MPV Sodium 139 Potassium 3.5 L Chloride 106 Carbon Dioxide 21 L Anion Gap 15 BUN 24 H Creatinine 1.3 H Est GFR ( Amer) 49 Est GFR (Non-Af Amer) 40 Random Glucose 97 Calcium 8.4 L Total Bilirubin 0.6 AST 11 L ALT 16 Alkaline Phosphatase 61 Troponin I 0.5590 H* Total Protein 5.5 L Albumin 2.9 L Globulin 2.6 Albumin/Globulin Ratio 1.1 Assessment & Plan - Assessment and Plan (Free Text) Assessment: 72 y/o female with PMHx of CAD with coronary and drug-eluting stents, CHF, COPD , emphysema, CVA, dementia, DVT, HTN, HLD, malignant breast cancer, anemia, anxiety, CKD, schizophrenia and TIA seen by podiatry for left foot pain secondary to old trauma Plan: Pt seen and evaluated at bedside Discussed plan with attending Dr. Greenfield Per chart review, pt had possible small avulsion fracture of left fibula in 2016 but did not follow up Ankle x-rays taken on 10/31/2017 show no signs of acute fracture Pt insistent that pain is in the foot, not the ankle New foot x-rays ordered today Pt encouraged to continue ambulation with physical therapy with use of a rolling walker, but remain NWB to left foot until x-rays evaluated Podiatry will continue to follow patient while in house Thank you for allowing us to participate in this patient's care
--- NOTE | 2017-11-12 14:45 | PN ---
DATE: SUBJECTIVE: She is comfortably in bed. She is not happy about going back and forth from the hospital so many times. Still not feeling well. She is n.p.o. this morning, not sure why, with a heart healthy diet and also consults for GI and Podiatry are not in the computer. It was in the list yesterday also. I will do that again. Labs were written this morning and not back yet, and it is 8:54. I will put them in again. She is currently on IV fluids, Advair, Apresoline, Cardizem, Catapres, Ecotrin, heparin, morphine, Pepcid, Protonix, Ranexa, Rocephin, Spiriva. PHYSICAL EXAMINATION: VITAL SIGNS: She has a 97.2 temp, 85 pulse, 161/68 blood pressure, 21 respiratory rate, 90% on 100% FiO2 on nasal cannula. HEENT: Head atraumatic, normocephalic. GENERAL: Alert, comfortable. No chest pain, shortness of breath, or abdominal pain at this time, also no acute pain. HEART: Regular rate. LUNGS: Decreased breath sounds but clear. ABDOMEN: Soft. EXTREMITIES: No edema. SOCIAL HISTORY: She is still smoking. We discussed at length again. Refused to quit smoking. LABORATORY DATA: Yesterday, she has 14.9 white count, waiting for this morning. I will do stat lab. BUN 22, creatinine 1.2, waiting for the kidney function to come back. Sugar was 148, waiting for this morning sugar to come back, troponins were 0.22 and 0.37. They went up. Cardiology to consult the case. I think she is having an N-STEMI, a little bit with the elevated white count. See what this morning labs are from Infectious Disease to come to the chart. GI appreciated, on what is going on there. Await the foot doctor to come in for foot pain. I am not sure if she eats. According to Physical Therapy, she might need CCU or subacute rehab. Again, we will continue aggressive treatment and care. John Brown DO [facility] # [id number] MTDD
--- NOTE | 2017-11-12 15:54 | CP.PCM.CON ---
History of Present Illness - History of Present Illness History of Present Illness: 72 year old female with history of CVA, presenting with chest pain. She describes severe pain, with associated SOB. Pt also reports lower aBdmonal pain REFERRED FOR ID EEVAL FOR POSSIBLE INFECTION , LEUKOCYTOSIS THUS FAR CULTURES ARE NEGATIVE ROS: A 12pt ROS was negative except as above PmHx: with history of CVA, TIA, CAD, [place] s/p PCI, PVD s/p R iliac stent, Breast Cancer s/p lumpectomy with chemoradiation, dCHF EF 60-65% 09/2016, Hypertension , Hyperlipidemia, Fall s/p Right hip replacement with resultant chronic hip pain PsHx: As stated in HPI SHx: Hx of tobacco use, denies etoh or drugs FHx: denies colon ca Review of Systems - Review of Systems All systems: reviewed and no additional remarkable complaints except - Constitutional Constitutional: As Per HPI - EENT Eyes: absent: As Per HPI, Blind Spots, Blurred Vision, Change in Vision, Decreased Night Vision, Diplopia, Discharge, Dry Eye, Exophthalmos, Floaters, Irritation, Itchy Eyes, Loss of Peripheral Vision, Pain, Photophobia, Requires Corrective Lenses, Sees Flashes, Spots in Vision, Tunnel Vision, Other Visual Disturbances, Loss of Vision, Other Ears: absent: As Per HPI, Decreased Hearing, Ear Discharge, Ear Pain, Tinnitus, Abnormal Hearing, Disequilibrium, Dizziness, Other Nose/Mouth/Throat: absent: As Per HPI, Epistaxis, Nasal Congestion, Nasal Discharge, Nasal Obstruction, Nasal Trauma, Nose Pain, Post Nasal Drip, Sinus Pain, Sinus Pressure, Bleeding Gums, Change in Voice, Dental Pain, Dry Mouth, Dysphagia, Halitosis, Hoarsness, Lip Swelling, Mouth Lesions, Mouth Pain, Odynophagia, Sore Throat, Throat Swelling, Tongue Swelling, Facial Pain, Neck Pain, Neck Mass, Other - Breasts Breasts: absent: As Per HPI, Change in Shape, Mass, Pain, Nipple Discharge, Nipple Inversion, Skin Changes, Swelling, Other - Cardiovascular Cardiovascular: absent: As Per HPI, Acrocyanosis, Chest Pain, Chest Pain at Rest , Chest Pain with Activity, Claudication, Diaphoresis, Dyspnea, Dyspnea on Exertion, Edema, Irregular Heart Rhythm, Pain Radiating to Arm/Neck/Jaw, Leg Edema, Leg Ulcers, Lightheadedness, Orthopnea, Palpitations, Paroxysmal Nocturnal Dyspnea, Pedal Edema, Radiating Pain, Rapid Heart Rate, Slow Heart Rate, Syncope, Other - Respiratory Respiratory: absent: As Per HPI, Cough, Dyspnea, Hemoptysis, Dyspnea on Exertion , Wheezing, Snoring, Stridor, Pain on Inspiration, Chest Congestion, Excessive Mucous Production, Change in Mucous Color, Pain with Coughing, Other - Gastrointestinal Gastrointestinal: As Per HPI, Abdominal Pain - Genitourinary Genitourinary: absent: As Per HPI, Change in Urinary Stream, Difficulty Urinating, Dysuria, Flank Pain, Hematuria, Pyuria, Nocturia, Urinary Incontinence, Urinary Frequency, Urinary Hesitance, Urinary Urgency, Voiding Freq/Small Amts, Freq UTI, Hx Renal/Bladder Calculi, Hx /Renal Surgery, Bladder Distension, Other - Reproductive: Female Reproductive:Female: absent: As Per HPI, Amenorrhea, Amenorrhea/ Control, Currently Menstual, Cycle <21 Days, Cycle >35 Days, Cycle Variable, Menses 1-7 Days, Menses >/= 8 Days, Menses Variable, Cycle > 4 Weeks Between, No Menses for 6 Months, Heavy Menses, Light Menses, Normal Menses, Spotting Between Cycles , S/P Hysterectomy, Menopausal, Post Menopausal, Premenarche, Abnormal Vaginal Bleeding, Dysmenorrhea, Dyspareunia, Genital Lesions, Genital Pruritis, Pelvic Pain, Prolapse Symptoms, Sexual Dysfunction, Vaginal Discharge, Vaginal Dryness , Vaginal Odor, Vaginal Pruritis, Other - Menstruation Menstruation: absent: As Per HPI, Amenorrhea, Amenorrhea/ Control, Currently Menstual, Cycle <21 Days, Cycle >35 Days, Cycle Variable, Menses 1-7 Days, Menses >/= 8 Days, Menses Variable, Cycle > 4 Weeks Between, No Menses for 6 Months, Heavy Menses, Light Menses, Normal Menses, Spotting Between Cycles , S/P Hysterectomy, Menopausal, Post Menopausal, Premenarche, Abnormal Vaginal Bleeding, Dysmenorrhea, Other - Musculoskeletal Musculoskeletal: absent: As Per HPI, Abnormal Gait, Arthralgias, Atrophy, Back Pain, Deformity, Joint Swelling, Limited Range of Motion, Loss of Height, Muscle Cramps, Muscle Weakness, Myalgias, Neck Pain, Numbness, Radiating Pain into Limb, Stiffness, Tingling, Other - Integumentary Integumentary: absent: As Per HPI, Acne, Alopecia, Bleeding Lesions, Change in Hair, Change in Nails, Change in Pigmentation, Changing Lesions, Dry Skin, Erythema, Furuncle, Hirsutism, Lesions, New Lesions, Non-Healing Lesions, Photosensitivity, Pruritus, Rash, Skin Pain, Skin Ulcer, Sores, Striae, Swelling , Unusual Bruising, Wounds, Jaundice, Other - Neurological Neurological: absent: As Per HPI, Abnormal Gait, Abnormal Hearing, Abnormal Movements, Abnormal Speech, Behavioral Changes, Burning Sensations, Confusion, Convulsions, Disequilibrium, Dizziness, Numbness, Focal Weakness, Frequent Falls , Headaches, Lack of Coordination, Loss of Vision, Memory Loss, Paresthesias, Radicular Pain, Restless Legs, Sensory Deficit, Syncope, Tingling, Tremor, Vertigo, Weakness, Other Visual Disturbances, Other - Psychiatric Psychiatric: absent: As Per HPI, Abnormal Sleep Pattern, Anhedonia, Anxiety, Auditory Hallucinations, Behavioral Changes, Change in Appetite, Change in Libido, Confusion, Depression, Difficulty Concentrating, Hallucinations, Homicidal Ideation, Hopelessness, Irritability, Memory Loss, Mood Swings, Panic Attacks, Paranoia, Suicidal Ideation, Visual Hallucinations, Tactile Hallucinations, Other - Endocrine Endocrine: absent: As Per HPI, Change in Body Appearance, Change in Libido, Cold Intolorance, Deepening of Voice, Excessive Sweating, Fatigue, Flushing, Heat Intolorance, Increase in Ring/Shoe/Hat Size, Palpitations, Polydipsia, Polyphagia, Polyuria, Other Past Patient History - Infectious Disease Hx of Infectious Diseases: None - Tetanus Immunizations Tetanus Immunization: Unknown - Past Medical History & Family History Past Medical History?: Yes - Past Social History Smoking Status: Current Some Days Smoker - CARDIAC Hx Congestive Heart Failure: Yes Hx Hypercholesterolemia: Yes Hx Hypertension: Yes Hx Peripheral Edema: Yes - PULMONARY Hx Bronchitis: Yes Hx Chronic Obstructive Pulmonary Disease (COPD): Yes (Emphysema,) Hx Emphysema: Yes - NEUROLOGICAL Hx Dementia: Yes Hx Transient Ischemic Attacks (TIA): Yes - HEENT Hx HEENT Problems: Yes (left eye blurry) 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) Other/Comment: [place] left ear - RENAL Hx Chronic Kidney Disease: Yes - ENDOCRINE/METABOLIC Hx Endocrine Disorders: No - HEMATOLOGICAL/ONCOLOGICAL Hx Anemia: Yes - INTEGUMENTARY Hx Dermatological Problems: No - MUSCULOSKELETAL/RHEUMATOLOGICAL Hx Arthritis: Yes Hx Falls: No Hx Fractures: Yes (Right Hip) Hx Osteoporosis: Yes - GASTROINTESTINAL Hx Gastrointestinal Disorders: Yes Hx Gastroesophageal Reflux: Yes - PSYCHIATRIC Hx Anxiety: Yes Hx Schizophrenia: Yes Hx Substance Use: No - SURGICAL HISTORY Hx Coronary Stent: Yes (07/26/12) - ANESTHESIA Hx Anesthesia: Yes Hx Anesthesia Reactions: No Hx Malignant Hyperthermia: No Meds Allergies/Adverse Reactions: Allergies Allergy/AdvReac Type Severity Reaction Status Date / Time iodine Allergy Severe ANAPHYLAXIS Verified 11/06/17 07:43 iv dye Allergy Severe ANAPHYLAXIS Uncoded 11/06/17 07:43 - Medications Medications: Current Medications Aspirin (Ecotrin) 81 mg PO DAILY [facility] Last Admin: 11/12/17 10:50 Dose: 81 mg Clonidine HCl (Catapres) 0.1 mg PO Q8H [facility] Last Admin: 11/12/17 12:00 Dose: 0.1 mg Diltiazem HCl (Cardizem Cd) 120 mg PO DAILY [facility] Last Admin: 11/12/17 10:50 Dose: 120 mg Heparin Sodium (Porcine) (Heparin) 5,000 units SC Q12 [facility] Last Admin: 11/12/17 10:50 Dose: 5,000 units Hydralazine HCl (Apresoline) 75 mg PO TID [facility] Last Admin: 11/12/17 13:27 Dose: 75 mg Ceftriaxone Sodium 1 gm/ (Sodium Chloride) 100 mls @ 100 mls/hr IVPB DAILY [facility] Last Admin: 11/12/17 09:25 Dose: 100 mls/hr Sodium Chloride (Sodium Chloride 0.45%) 1,000 mls @ 80 mls/hr IV .[id number] [facility] Last Admin: 11/12/17 10:00 Dose: 80 mls/hr Morphine Sulfate (Morphine) 2 mg IVP Q4 PRN PRN Reason: Pain, moderate (4-7) Last Admin: 11/12/17 12:30 Dose: 2 mg Pantoprazole Sodium (Protonix Inj) 40 mg IVP DAILY [facility] Last Admin: 11/12/17 10:50 Dose: 40 mg Ranolazine (Ranexa) 500 mg PO BID [facility] Last Admin: 11/12/17 11:00 Dose: 500 mg Fluticasone/Salmeterol (Advair Diskus 250/50) 1 puff INH RQ12 [facility] Last Admin: 11/12/17 07:10 Dose: 1 puff Tiotropium [place] (Spiriva) 18 mcg INH RQ24 [facility] Last Admin: 11/12/17 07:10 Dose: 18 mcg Physical Exam - Constitutional Appears: Non-toxic, Confused, Chronically Ill - Head Exam Head Exam: ATRAUMATIC, NORMAL INSPECTION, NORMOCEPHALIC - Eye Exam Eye Exam: EOMI, PERRL. absent: Scleral icterus - ENT Exam ENT Exam: Mucous Membranes Dry, Normal External Ear Exam, Normal Oropharynx - Neck Exam Neck exam: Negative for: Lymphadenopathy - Respiratory Exam Respiratory Exam: Decreased Breath Sounds, Rhonchi - Cardiovascular Exam Cardiovascular Exam: REGULAR RHYTHM, +S1, +S2 - GI/Abdominal Exam GI & Abdominal Exam: Diminished Bowel Sounds, Soft. absent: Mass, Rigid, Tenderness - Rectal Exam Rectal Exam: Deferred - Exam Exam: NORMAL INSPECTION - Extremities Exam Extremities exam: Positive for: pedal pulses present. Negative for: calf tenderness, pedal edema, tenderness - Back Exam Back exam: absent: CVA tenderness (L), CVA tenderness (R), paraspinal tenderness - Neurological Exam Neurological exam: Alert, CN II-XII Intact, Oriented x3, Reflexes Normal - Psychiatric Exam Psychiatric exam: Normal Mood - Skin Skin Exam: Dry, Intact Results - Vital Signs Recent Vital Signs: Last Vital Signs Temp 97.2 F L 11/11/17 14:33 Pulse 68 11/12/17 07:00 Resp 21 11/11/17 14:33 BP 138/54 L 11/12/17 05:10 Pulse Ox 97 11/12/17 05:10 - Labs Result Diagrams: 11/12/17 08:29 11/12/17 09:14 Labs: Laboratory Results - last 24 hr 11/12/17 11/12/17 11/12/17 00:26 08:29 08:29 WBC 5.9 D RBC 3.38 L Hgb 8.2 L D Hct 25.7 L MCV 75.9 L MCH 24.3 L MCHC 32.0 L RDW 18.2 H Plt Count 203 D MPV 10.2 Sodium 139 Potassium 3.6 Chloride 106 Carbon Dioxide 23 Anion Gap 13 BUN 24 H Creatinine 1.3 H Est GFR ( Amer) 49 Est GFR (Non-Af Amer) 40 Random Glucose 93 Calcium 8.7 Total Bilirubin 0.5 AST 13 L ALT 14 Alkaline Phosphatase 59 Troponin I 0.3710 H* Total Protein 5.3 L Albumin 2.9 L D Globulin 2.5 Albumin/Globulin Ratio 1.2 11/12/17 09:14 WBC RBC Hgb Hct MCV MCH MCHC RDW Plt Count MPV Sodium 139 Potassium 3.5 L Chloride 106 Carbon Dioxide 21 L Anion Gap 15 BUN 24 H Creatinine 1.3 H Est GFR ( Amer) 49 Est GFR (Non-Af Amer) 40 Random Glucose 97 Calcium 8.4 L Total Bilirubin 0.6 AST 11 L ALT 16 Alkaline Phosphatase 61 Troponin I 0.5590 H* Total Protein 5.5 L Albumin 2.9 L Globulin 2.6 Albumin/Globulin Ratio 1.1 Assessment & Plan (1) Abdominal pain Status: Acute (2) Chest pain Status: Acute (3) ACS (acute coronary syndrome) Status: Acute (4) Anemia Status: Acute (5) CKD (chronic kidney disease) stage 3, GFR 30-59 ml/min Status: Acute (6) COPD exacerbation Status: Acute (7) DM2 (diabetes mellitus, type 2) Status: Acute (8) Dehydration Status: Acute (9) Elevated troponin Status: Acute (10) Hx of TIA (transient ischemic attack) and stroke Status: Acute - Assessment and Plan (Free Text) Assessment: LEUKOCYTOSIS RESOLVED CULTURES PENDING IV ANTIBIOTICS ORDERED
--- NOTE | 2017-11-12 16:38 | RAD ---
PROCEDURE: Left Foot Radiographs. HISTORY: left foot pain, hx of old fractures COMPARISON: Left ankle radiographs performed 06/21/17 FINDINGS: BONES: Diffuse osseous demineralization limits evaluation for acute fracture lines. No acute displaced fracture. Calcaneal enthesophyte. JOINTS: No dislocation. Marked joint space narrowing. SOFT TISSUES: Mild soft tissue swelling. No evidence of radiopaque foreign body. OTHER FINDINGS: None. IMPRESSION: Severe diffuse osseous demineralization limits evaluation for acute fracture lines. Marked degenerative changes. No acute displaced fracture identified. Mild soft tissue swelling.
[2017-11-12 16:44] VITALS: RESP 20
[2017-11-12] MEDS: Morphine 4 MG/ML VIAL IVP PRN (20:35)
[2017-11-13] MEDS: Morphine 4 MG/ML VIAL IVP PRN ×3 (03:52→18:05)
[2017-11-13 07:41] LABS: HEMOGLOBIN 8.4 g/dL (11.0-16.0); MEAN CELL VOLUME 76.2 fL (81.0-99.0); MEAN CORPUSCULAR HEMOGLOBIN 24.7 pg (27.0-31.0); MEAN CORPUSCULAR HGB CONC 32.4 g/dL (33.0-37.0); MEAN PLATELET VOLUME 10.2 fL (7.2-11.7); RBC 3.4 Mil/uL (3.80-5.20); RED CELL DISTRIBUTION WIDTH 18.3 % (11.5-14.5); WHITE BLOOD COUNT 5.2 K/uL (4.8-10.8)
[2017-11-13 07:49] LABS: ALB/GLOB RATIO 1.2 (1.0-2.1); ALBUMIN 3.1 g/dL (3.5-5.0); CALCIUM 8.6 mg/dl (8.6-10.4)
[2017-11-13 08:30] LABS: SQUAMOUS EPITHIAL 2 /hpf (0-5); URINE BILIRUBIN NEGATIVE (NEGATIVE); URINE BLOOD NEGATIVE (NEGATIVE); URINE CLARITY Hazy (Clear); URINE COLOR Amber (YELLOW); URINE GLUCOSE (UA) NORMAL (Normal); URINE LEUKOCYTE ESTERASE TRACE Leu/uL (Negative); URINE NITRATE NEGATIVE (NEGATIVE); URINE PROTEIN 3+ mg/dL (NEGATIVE); URINE UROBILINOGEN NORMAL mg/dL (0.2-1.0)
--- NOTE | 2017-11-13 08:42 | CP.PCM.CON ---
History of Present Illness - History of Present Illness History of Present Illness: CC chest pain Past Patient History - Infectious Disease Hx of Infectious Diseases: None - Tetanus Immunizations Tetanus Immunization: Unknown - Past Medical History & Family History Past Medical History?: Yes - Past Social History Smoking Status: Current Some Days Smoker - CARDIAC Hx Congestive Heart Failure: Yes Hx Hypercholesterolemia: Yes Hx Hypertension: Yes Hx Peripheral Edema: Yes - PULMONARY Hx Bronchitis: Yes Hx Chronic Obstructive Pulmonary Disease (COPD): Yes (Emphysema,) Hx Emphysema: Yes - NEUROLOGICAL Hx Dementia: Yes Hx Transient Ischemic Attacks (TIA): Yes - HEENT Hx HEENT Problems: Yes (left eye blurry) 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) Other/Comment: [place] left ear - RENAL Hx Chronic Kidney Disease: Yes - ENDOCRINE/METABOLIC Hx Endocrine Disorders: No - HEMATOLOGICAL/ONCOLOGICAL Hx Anemia: Yes - INTEGUMENTARY Hx Dermatological Problems: No - MUSCULOSKELETAL/RHEUMATOLOGICAL Hx Arthritis: Yes Hx Falls: No Hx Fractures: Yes (Right Hip) Hx Osteoporosis: Yes - GASTROINTESTINAL Hx Gastrointestinal Disorders: Yes Hx Gastroesophageal Reflux: Yes - PSYCHIATRIC Hx Anxiety: Yes Hx Schizophrenia: Yes Hx Substance Use: No - SURGICAL HISTORY Hx Coronary Stent: Yes (07/26/12) - ANESTHESIA Hx Anesthesia: Yes Hx Anesthesia Reactions: No Hx Malignant Hyperthermia: No Meds Allergies/Adverse Reactions: Allergies Allergy/AdvReac Type Severity Reaction Status Date / Time iodine Allergy Severe ANAPHYLAXIS Verified 11/06/17 07:43 iv dye Allergy Severe ANAPHYLAXIS Uncoded 11/06/17 07:43 - Medications Medications: Current Medications Aspirin (Ecotrin) 81 mg PO DAILY [facility] Last Admin: 11/12/17 10:50 Dose: 81 mg Clonidine HCl (Catapres) 0.1 mg PO Q8H [facility] Last Admin: 11/13/17 03:52 Dose: 0.1 mg Diltiazem HCl (Cardizem Cd) 120 mg PO DAILY [facility] Last Admin: 11/12/17 10:50 Dose: 120 mg Heparin Sodium (Porcine) (Heparin) 5,000 units SC Q12 [facility] Last Admin: 11/12/17 23:11 Dose: 5,000 units Hydralazine HCl (Apresoline) 75 mg PO TID [facility] Last Admin: 11/12/17 20:34 Dose: 75 mg Ceftriaxone Sodium 1 gm/ (Sodium Chloride) 100 mls @ 100 mls/hr IVPB DAILY [facility] Last Admin: 11/12/17 09:25 Dose: 100 mls/hr Sodium Chloride (Sodium Chloride 0.45%) 1,000 mls @ 80 mls/hr IV .[id number] [facility] Last Admin: 11/12/17 16:00 Dose: 80 mls/hr Morphine Sulfate (Morphine) 2 mg IVP Q4 PRN PRN Reason: Pain, moderate (4-7) Last Admin: 11/13/17 03:52 Dose: 2 mg Pantoprazole Sodium (Protonix Inj) 40 mg IVP DAILY [facility] Last Admin: 11/12/17 10:50 Dose: 40 mg Ranolazine (Ranexa) 500 mg PO BID [facility] Last Admin: 11/12/17 20:35 Dose: 500 mg Fluticasone/Salmeterol (Advair Diskus 250/50) 1 puff INH RQ12 [facility] Last Admin: 11/12/17 19:13 Dose: 1 puff Tiotropium [place] (Spiriva) 18 mcg INH RQ24 [facility] Last Admin: 11/12/17 07:10 Dose: 18 mcg Physical Exam - Constitutional Appears: Non-toxic - Head Exam Head Exam: NORMAL INSPECTION - Eye Exam Eye Exam: absent: Scleral icterus - ENT Exam ENT Exam: Mucous Membranes Moist - Neck Exam Neck exam: Positive for: Full Rom. Negative for: Lymphadenopathy - Respiratory Exam Respiratory Exam: Decreased Breath Sounds - Cardiovascular Exam Cardiovascular Exam: REGULAR RHYTHM - GI/Abdominal Exam GI & Abdominal Exam: Soft. absent: Tenderness - Extremities Exam Extremities exam: Negative for: calf tenderness, pedal edema - Neurological Exam Neurological exam: Alert Results - Vital Signs Recent Vital Signs: Last Vital Signs Temp 98.4 F 11/12/17 23:15 Pulse 85 11/13/17 07:00 Resp 20 11/12/17 23:15 BP 164/69 H 11/13/17 03:43 Pulse Ox 95 11/12/17 23:15 - Labs Result Diagrams: 11/13/17 07:12 11/13/17 07:12 Labs: Laboratory Results - last 24 hr 11/12/17 11/12/17 11/12/17 08:29 08:29 09:14 WBC 5.9 D RBC 3.38 L Hgb 8.2 L D Hct 25.7 L MCV 75.9 L MCH 24.3 L MCHC 32.0 L RDW 18.2 H Plt Count 203 D MPV 10.2 Sodium 139 139 Potassium 3.6 3.5 L Chloride 106 106 Carbon Dioxide 23 21 L Anion Gap 13 15 BUN 24 H 24 H Creatinine 1.3 H 1.3 H Est GFR ( Amer) 49 49 Est GFR (Non-Af Amer) 40 40 Random Glucose 93 97 Calcium 8.7 8.4 L Total Bilirubin 0.5 0.6 AST 13 L 11 L ALT 14 16 Alkaline Phosphatase 59 61 Troponin I 0.5590 H* Total Protein 5.3 L 5.5 L Albumin 2.9 L D 2.9 L Globulin 2.5 2.6 Albumin/Globulin Ratio 1.2 1.1 Urine Color Urine Clarity Urine pH Ur Specific [place] Urine Protein Urine Glucose (UA) Urine Ketones Urine Blood Urine Nitrate Urine Bilirubin Urine Urobilinogen Ur Leukocyte Esterase Urine WBC (Auto) Urine RBC (Auto) Ur Squamous Epith Cells 11/13/17 11/13/17 11/13/17 07:12 07:12 08:19 WBC 5.2 RBC 3.40 L Hgb 8.4 L Hct 25.9 L MCV 76.2 L MCH 24.7 L MCHC 32.4 L RDW 18.3 H Plt Count 193 MPV 10.2 Sodium 136 Potassium 3.9 Chloride 105 Carbon Dioxide 19 L Anion Gap 16 BUN 26 H Creatinine 1.5 H Est GFR ( Amer) 41 Est GFR (Non-Af Amer) 34 Random Glucose 80 Calcium 8.6 Total Bilirubin 0.4 AST 11 L ALT 16 Alkaline Phosphatase 64 Troponin I Total Protein 5.7 L Albumin 3.1 L Globulin 2.6 Albumin/Globulin Ratio 1.2 Urine Color [place] Urine Clarity Hazy Urine pH 5.0 Ur Specific [place] 1.020 Urine Protein 3+ H Urine Glucose (UA) Normal Urine Ketones Negative Urine Blood Negative Urine Nitrate Negative Urine Bilirubin Negative Urine Urobilinogen Normal Ur Leukocyte Esterase Trace Urine WBC (Auto) 9 H Urine RBC (Auto) 1 Ur Squamous Epith Cells 2 Assessment & Plan - Assessment and Plan (Free Text) Assessment: ACS COPD T2dm Bipolar depression HTN Plan: Meds reviewed and discussed w/ Dr Brown Coronary anatomy not suitable for stent/plasty or surgery. Medical treatment
--- NOTE | 2017-11-13 08:55 | CP.PCM.PN ---
<Andres Dexter - Last Filed: 11/13/17 10:02> Subjective - Date & Time of Evaluation Date of Evaluation: 11/13/17 Time of Evaluation: 07:00 - Subjective Subjective: PGY5 GI Fellow Progress Note Patient seen and examined bedside this morning. The patient states she has intermittent nausea but is able to tolerate diet without issue. Denies any early satiety, dysphagia or odynophagia. Admits to weight loss aroudn the time she had chemo/XRT for breast cancer. Denies any vomiting. 12 system ROS performed and negative except where stated. Objective - Vital Signs/Intake and Output Vital Signs (last 24 hours): Temp Pulse Resp BP Pulse Ox 98.4 F 85 20 164/69 H 95 11/12/17 23:15 11/13/17 07:00 11/12/17 23:15 11/13/17 03:43 11/12/17 23:15 Intake and Output: 11/13/17 11/13/17 06:59 18:59 Intake Total 820 Balance 820 - Medications Medications: Current Medications Aspirin (Ecotrin) 81 mg PO DAILY [facility] Last Admin: 11/12/17 10:50 Dose: 81 mg Clonidine HCl (Catapres) 0.1 mg PO Q8H [facility] Last Admin: 11/13/17 03:52 Dose: 0.1 mg Diltiazem HCl (Cardizem Cd) 120 mg PO DAILY [facility] Last Admin: 11/12/17 10:50 Dose: 120 mg Heparin Sodium (Porcine) (Heparin) 5,000 units SC Q12 [facility] Last Admin: 11/12/17 23:11 Dose: 5,000 units Hydralazine HCl (Apresoline) 75 mg PO TID [facility] Last Admin: 11/12/17 20:34 Dose: 75 mg Ceftriaxone Sodium 1 gm/ (Sodium Chloride) 100 mls @ 100 mls/hr IVPB DAILY [facility] Last Admin: 11/12/17 09:25 Dose: 100 mls/hr Sodium Chloride (Sodium Chloride 0.45%) 1,000 mls @ 80 mls/hr IV .[id number] [facility] Last Admin: 11/12/17 16:00 Dose: 80 mls/hr Morphine Sulfate (Morphine) 2 mg IVP Q4 PRN PRN Reason: Pain, moderate (4-7) Last Admin: 11/13/17 03:52 Dose: 2 mg Pantoprazole Sodium (Protonix Inj) 40 mg IVP DAILY [facility] Last Admin: 11/12/17 10:50 Dose: 40 mg Ranolazine (Ranexa) 500 mg PO BID [facility] Last Admin: 11/12/17 20:35 Dose: 500 mg Fluticasone/Salmeterol (Advair Diskus 250/50) 1 puff INH RQ12 [facility] Last Admin: 11/12/17 19:13 Dose: 1 puff Tiotropium [place] (Spiriva) 18 mcg INH RQ24 [facility] Last Admin: 11/12/17 07:10 Dose: 18 mcg - Labs Labs: 11/13/17 07:12 11/13/17 07:12 - Constitutional Appears: Non-toxic, No Acute Distress - Eye Exam Eye Exam: EOMI, PERRL - ENT Exam ENT Exam: Mucous Membranes Moist - Respiratory Exam Respiratory Exam: Clear to Ausculation Bilateral. absent: Rales, Rhonchi, Wheezes - Cardiovascular Exam Cardiovascular Exam: RRR, +S1, +S2 - GI/Abdominal Exam GI & Abdominal Exam: Soft, Normal Bowel Sounds. absent: Distended, Firm, Guarding, Rigid, Tenderness, Organomegaly - Extremities Exam Extremities Exam: Normal Inspection. absent: Pedal Edema - Neurological Exam Neurological Exam: Alert, Awake, Oriented x3 - Psychiatric Exam Psychiatric exam: Normal Affect, Normal Mood - Skin Skin Exam: Dry, Warm Assessment and Plan - Assessment and Plan (Free Text) Assessment: This is a 72yo F with PMHx significant for CADATIA, CVA, breast cancer s/p chemo /XRT/lumpectomy, CHF, HTN, HLD who presented to the ED with chest pain. -NSTEMI -Anemia -Nausea Plan: -Medical mangement for NSTEMI per cardiology - DR Tejada (cardiology) following -Pt would benefit from PRBC transfusion given history of HGB near 11 and acute drop to 8 during admission -No overt GI bleeding noted and patient refusing rectal examination -Pt denies chest/abdominal pain at present -EGD performed 11/2016 with gastritis/duodenitis suspected but no biopsy obtained as pt was on plavix at that time -Tolerating PO without issue -Pt may benefit from luminal examination prior to initiation of anti-platelet therapy but would require cardiology clearance and is likely not a candidate at this time given ongoing NSTEMI -Risk/benefit of antiplatelet therapy to be determined by cardiology <Geronimo Macario MD - Last Filed: 11/13/17 15:32> Objective - Vital Signs/Intake and Output Vital Signs (last 24 hours): Temp Pulse Resp BP Pulse Ox 98.4 F 85 20 164/69 H 95 11/12/17 23:15 11/13/17 07:00 11/12/17 23:15 11/13/17 03:43 11/12/17 23:15 Intake and Output: 11/13/17 11/13/17 06:59 18:59 Intake Total 820 Balance 820 - Medications Medications: Current Medications Aspirin (Ecotrin) 81 mg PO DAILY [facility] Last Admin: 11/13/17 09:39 Dose: 81 mg Clonidine HCl (Catapres) 0.1 mg PO Q8H [facility] Last Admin: 11/13/17 12:00 Dose: Not Given Diltiazem HCl (Cardizem Cd) 120 mg PO DAILY [facility] Last Admin: 11/13/17 09:40 Dose: 120 mg Heparin Sodium (Porcine) (Heparin) 5,000 units SC Q12 [facility] Last Admin: 11/13/17 09:40 Dose: 5,000 units Hydralazine HCl (Apresoline) 75 mg PO TID [facility] Last Admin: 11/13/17 14:17 Dose: Not Given Ceftriaxone Sodium 1 gm/ (Sodium Chloride) 100 mls @ 100 mls/hr IVPB DAILY [facility] Last Admin: 11/13/17 10:00 Dose: Not Given Sodium Chloride (Sodium Chloride 0.45%) 1,000 mls @ 80 mls/hr IV .[id number] [facility] Last Admin: 11/13/17 10:00 Dose: Not Given Morphine Sulfate (Morphine) 2 mg IVP Q4 PRN PRN Reason: Pain, moderate (4-7) Last Admin: 11/13/17 09:49 Dose: 2 mg Pantoprazole Sodium (Protonix Inj) 40 mg IVP DAILY [facility] Last Admin: 11/13/17 09:40 Dose: 40 mg Ranolazine (Ranexa) 500 mg PO BID [facility] Last Admin: 11/13/17 11:00 Dose: Not Given Fluticasone/Salmeterol (Advair Diskus 250/50) 1 puff INH RQ12 [facility] Last Admin: 11/13/17 09:31 Dose: 1 puff Tiotropium [place] (Spiriva) 18 mcg INH RQ24 [facility] Last Admin: 11/13/17 09:30 Dose: 18 mcg - Labs Labs: 11/13/17 07:12 11/13/17 07:12 Attending/Attestation - Attestation I have personally seen and examined this patient.: Yes I have fully participated in the care of the patient.: Yes I have reviewed all pertinent clinical information, including history, physical exam and plan: Yes Notes (Text): 11/13/17 15:25 Patient seen with GI fellow on rounds. In a nutshell this is a 72 year old F with history of COPD, CAD s/p stent on plavix, arterial disease, HTN, DM presenting with chest pain and elevated troponin. She complains of fatigue and dyspnea on exertion. GI consulted for alleged abdominal pain which mostly looks like chest pain and now drop in Hb of 2 gm/dl. Denies rectal bleeding, dark stools, hematemesis. Hemodynamically stable. Patient is not an ideal candidate for anesthesia with NSTEMI. GI fellow discussed with Dr Tejada- medical management of NSTEMI- not a candidate for anti platelet. Continue PPI. Cardiology consult noted. EGD 11/18 showed duodenitis and gastritis. Will sign off now in absence of GI bleeding. Discussed with Dr Brown. Thank you for letting us participate in the care of your patient
[2017-11-13] MEDS: Tiotropium 18 mcg Cap For Inhalation INH SCH (09:30)
[2017-11-13] MEDS: Fluticasone-Salmeterol 250-50mcg Diskus INH SCH ×2 (09:31→19:22)
[2017-11-13] MEDS: diltiaZEM 120 mg/24 Hours CD Cap PO SCH (09:40)
[2017-11-13] MEDS: Sodium Chloride 0.45% 1,000 ML IV SCH (10:00)
--- NOTE | 2017-11-13 10:12 | PN ---
DATE: 11/13/2017. SUBJECTIVE: She is in bed. She is short of breath. She is not feeling that well. I will call in Pulmonary today. I tried to order Xopenex for her inhaler, but I could not find that in the formulary. She is currently on IV fluids, Advair, Apresoline, Cardizem, Catapres, Ecotrin, heparin, morphine, Protonix, Ranexa, Rocephin and Spiriva. She tells me she is a little bit short of breath on oxygen. PHYSICAL EXAMINATION: VITAL SIGNS: 98.4 temp, 88 pulse, 164/69 blood pressure, 95% O2 sat on 2 L. HEENT: Head atraumatic, normocephalic. HEART: Regular rate. LUNGS: Decreased breath sounds bilaterally. ABDOMEN: Soft. EXTREMITIES: No edema, but is having some pain in the left foot, Podiatry came, Infectious Disease came. LABORATORY DATA: She had a 139 sodium, yesterday, 24 BUN, 1.3 creatinine, calcium is 8.4, total bilirubin 0.6, AST 11, ALT 16, alkaline phosphatase 61, troponin suddenly went up from 0.2 to 0.3 and now it is 0.5, waiting for a note on Cardiology. Total protein 5.5, 5.9 white count, 8.2 hemoglobin it dropped a few grams, 25.7 hematocrit with 203 platelets. ASSESSMENT AND PLAN: Waiting for GI in for the lack of hemoglobin, check the stools. With Pulmonary and can get Xopenex not on formulary, but I understand. We will check her labs, physical therapy. The patient is having an [id number] myocardial infarction, waiting for Cardiology to write a note. John Brown DO MTDD
[2017-11-13] MEDS: Ranolazine 500 mg Extended Release Tablets PO SCH ×2 (11:00→18:01)
--- NOTE | 2017-11-13 11:01 | CP.PCM.PN ---
Subjective - Date & Time of Evaluation Date of Evaluation: 11/13/17 Time of Evaluation: 09:00 - Subjective Subjective: c/o pain awake alert NAD Objective - Vital Signs/Intake and Output Vital Signs (last 24 hours): Temp Pulse Resp BP Pulse Ox 98.4 F 85 20 164/69 H 95 11/12/17 23:15 11/13/17 07:00 11/12/17 23:15 11/13/17 03:43 11/12/17 23:15 Intake and Output: 11/13/17 11/13/17 06:59 18:59 Intake Total 820 Balance 820 - Medications Medications: Current Medications Aspirin (Ecotrin) 81 mg PO DAILY [facility] Last Admin: 11/13/17 09:39 Dose: 81 mg Clonidine HCl (Catapres) 0.1 mg PO Q8H [facility] Last Admin: 11/13/17 03:52 Dose: 0.1 mg Diltiazem HCl (Cardizem Cd) 120 mg PO DAILY [facility] Last Admin: 11/13/17 09:40 Dose: 120 mg Heparin Sodium (Porcine) (Heparin) 5,000 units SC Q12 [facility] Last Admin: 11/13/17 09:40 Dose: 5,000 units Hydralazine HCl (Apresoline) 75 mg PO TID [facility] Last Admin: 11/13/17 09:39 Dose: 75 mg Ceftriaxone Sodium 1 gm/ (Sodium Chloride) 100 mls @ 100 mls/hr IVPB DAILY [facility] Last Admin: 11/12/17 09:25 Dose: 100 mls/hr Sodium Chloride (Sodium Chloride 0.45%) 1,000 mls @ 80 mls/hr IV .[id number] [facility] Last Admin: 11/12/17 16:00 Dose: 80 mls/hr Morphine Sulfate (Morphine) 2 mg IVP Q4 PRN PRN Reason: Pain, moderate (4-7) Last Admin: 11/13/17 09:49 Dose: 2 mg Pantoprazole Sodium (Protonix Inj) 40 mg IVP DAILY [facility] Last Admin: 11/13/17 09:40 Dose: 40 mg Ranolazine (Ranexa) 500 mg PO BID [facility] Last Admin: 11/12/17 20:35 Dose: 500 mg Fluticasone/Salmeterol (Advair Diskus 250/50) 1 puff INH RQ12 [facility] Last Admin: 11/13/17 09:31 Dose: 1 puff Tiotropium [place] (Spiriva) 18 mcg INH RQ24 [facility] Last Admin: 11/13/17 09:30 Dose: 18 mcg - Labs Labs: 11/13/17 07:12 11/13/17 07:12 - Constitutional Appears: Non-toxic, Chronically Ill - Head Exam Head Exam: NORMOCEPHALIC - Eye Exam Eye Exam: PERRL - ENT Exam ENT Exam: Mucous Membranes Dry - Neck Exam Neck Exam: absent: Lymphadenopathy - Respiratory Exam Respiratory Exam: Decreased Breath Sounds - Cardiovascular Exam Cardiovascular Exam: REGULAR RHYTHM - GI/Abdominal Exam GI & Abdominal Exam: Distended - Rectal Exam Rectal Exam: Deferred - Exam Exam: NORMAL INSPECTION Assessment and Plan (1) Abdominal pain Status: Acute (2) Chest pain Status: Acute (3) ACS (acute coronary syndrome) Status: Acute (4) Anemia Status: Acute (5) CKD (chronic kidney disease) stage 3, GFR 30-59 ml/min Status: Acute (6) COPD exacerbation Status: Acute (7) DM2 (diabetes mellitus, type 2) Status: Acute (8) Dehydration Status: Acute (9) Elevated troponin Status: Acute (10) Hx of TIA (transient ischemic attack) and stroke Status: Acute - Assessment and Plan (Free Text) Assessment: GI eval in progress wbc trending down
--- NOTE | 2017-11-13 14:44 | CARD ---
APPROVED REPORT EKG Measurement Heart [id number] <Conclusion> Sinus tachycardia with premature supraventricular complexes Cannot rule out Anteroseptal infarct, age undetermined ST & T wave abnormality, consider lateral ischemia Abnormal ECG
[2017-11-14] MEDS: Morphine 4 MG/ML VIAL IVP PRN ×5 (00:59→18:50)
--- NOTE | 2017-11-14 07:24 | CP.PCM.PN ---
Subjective - Date & Time of Evaluation Date of Evaluation: 11/13/17 Time of Evaluation: 08:15 - Subjective Subjective: occ chest pain +sob Hgb 11.3-->8.2-->8.4 Case discussed with GI...pt has very high risk to go go for any procedure. She can go for any procedure ONLY under dire emergency. Pt may go for elective procedure at her behest. Multiple times attempted to explained to patient her HIGH RISK. If drop in hgb becomes an issue, we have no choice but to stop all antiplatelets. Objective - Vital Signs/Intake and Output Vital Signs (last 24 hours): Temp Pulse Resp BP Pulse Ox 97.9 F 90 20 148/57 L 95 11/13/17 23:15 11/14/17 04:12 11/13/17 23:15 11/14/17 04:12 11/13/17 23:15 - Medications Medications: Current Medications Aspirin (Ecotrin) 81 mg PO DAILY [facility] Last Admin: 11/13/17 09:39 Dose: 81 mg Clonidine HCl (Catapres) 0.1 mg PO Q8H [facility] Last Admin: 11/14/17 04:12 Dose: 0.1 mg Diltiazem HCl (Cardizem Cd) 120 mg PO DAILY [facility] Last Admin: 11/13/17 09:40 Dose: 120 mg Heparin Sodium (Porcine) (Heparin) 5,000 units SC Q12 [facility] Last Admin: 11/13/17 21:54 Dose: 5,000 units Hydralazine HCl (Apresoline) 75 mg PO TID [facility] Last Admin: 11/13/17 18:00 Dose: 75 mg Ceftriaxone Sodium 1 gm/ (Sodium Chloride) 100 mls @ 100 mls/hr IVPB DAILY [facility] Last Admin: 11/13/17 10:00 Dose: Not Given Sodium Chloride (Sodium Chloride 0.45%) 1,000 mls @ 80 mls/hr IV .[id number] [facility] Last Admin: 11/13/17 10:00 Dose: Not Given Morphine Sulfate (Morphine) 2 mg IVP Q4 PRN PRN Reason: Pain, moderate (4-7) Last Admin: 11/14/17 06:25 Dose: 2 mg Pantoprazole Sodium (Protonix Inj) 40 mg IVP DAILY [facility] Last Admin: 11/13/17 09:40 Dose: 40 mg Ranolazine (Ranexa) 500 mg PO BID [facility] Last Admin: 11/13/17 18:01 Dose: 500 mg Fluticasone/Salmeterol (Advair Diskus 250/50) 1 puff INH RQ12 [facility] Last Admin: 11/13/17 19:22 Dose: 1 puff Tiotropium [place] (Spiriva) 18 mcg INH RQ24 [facility] Last Admin: 11/13/17 09:30 Dose: 18 mcg Tramadol HCl (Ultram) 50 mg PO TID [facility] - Labs Labs: 11/13/17 07:12 11/13/17 07:12 - Constitutional Appears: Non-toxic - Eye Exam Eye Exam: absent: Scleral icterus - Neck Exam Neck Exam: Full ROM - Respiratory Exam Respiratory Exam: absent: Decreased Breath Sounds - Cardiovascular Exam Cardiovascular Exam: REGULAR RHYTHM - GI/Abdominal Exam GI & Abdominal Exam: Soft - Extremities Exam Extremities Exam: Pedal Edema. absent: Calf Tenderness - Neurological Exam Neurological Exam: Alert, Oriented x3 Assessment and Plan - Assessment and Plan (Free Text) Assessment: ACS COPD Anemia ? GI Bleed T2dm Plan: F/u with GI Ok to stop all antiplatelet if drop in Hgb due to GI bleed becomes in issue
[2017-11-14] MEDS: Tiotropium 18 mcg Cap For Inhalation INH SCH (07:28)
[2017-11-14] MEDS: Fluticasone-Salmeterol 250-50mcg Diskus INH SCH ×2 (07:28→20:03)
--- NOTE | 2017-11-14 09:57 | PN ---
DATE: 11/14/2017. SUBJECTIVE: I came into see this morning Kathy screaming with chest pain, abdominal pain looking for a morphine. She states that the chest pain is back again. I ordered troponin this morning waiting for labs to come back. MEDICATIONS: She is on IV fluids, Flonase, Apresoline, Cardizem, Catapres, Ecotrin, heparin, morphine she is getting it around the clock every 4 hours, Protonix, Ranexa, Rocephin, Spiriva, and tramadol, I added tramadol and I am trying to get her off the morphine. PHYSICAL EXAMINATION: VITAL SIGNS: 97.9 temperature, 90 pulse, 148/57 blood pressure, 97% O2 saturation on room air. HEENT: Head is atraumatic and normocephalic. HEART: Regular rate. LUNGS: Decreased breath sounds, but clear. ABDOMEN: Soft. Nontender. Positive bowel sounds. She is losing weight. EXTREMITIES: No edema. LABORATORY DATA: Yesterday, she had 136 sodium, potassium is better at 3.9, BUN 26, creatinine 1.5, being a little bit worse on IV fluids , I will get Renal to take a look at her, GFR is down to 34, sugar is 80, calcium 8.6, total bili is 0.4, AST 11, ALT 16, alkaline phosphatase 64, the last troponin was 0.55, I ordered one this morning. Total protein 5.7, white count 5.2, hemoglobin 8.4, hematocrit 25.9, platelets 193. If the hemoglobin drops below 8, I will transfuse her. ASSESSMENT AND PLAN: Pulmonary have not seen her yet for the shortness of breath. I will consult Renal. Checking her labs, checking her troponin for the chest pain she had this morning. Trying with Physical Therapy to see if she needs subacute rehabilitation. Non-ST elevation myocardial infarction, anemia, pain, abdominal pain, weakness. John Brown DO
[2017-11-14] MEDS: Ranolazine 500 mg Extended Release Tablets PO SCH ×2 (10:00→17:52)
[2017-11-14] MEDS: diltiaZEM 120 mg/24 Hours CD Cap PO SCH (10:39)
[2017-11-14] MEDS: Sodium Chloride 0.45% 1,000 ML IV SCH ×2 (12:00→23:48)
--- NOTE | 2017-11-14 17:27 | CP.PCM.CON ---
History of Present Illness - History of Present Illness History of Present Illness: Initial Nephrology Consultation: Assessment: Stable Acute Kidney Injury (N17.9) possibly due to NSAIDs Diabetic chronic Kidney Disease (E11.22) Hypertensive Chronic Kidney Disease (I12.9) Chronic Kidney Disease (N18.3) Stage 3 with ? mg proteinuria (R80.9) likely due to ETHEL, NSAIDs Anemia (D64.9), HTN (I12.9), Rt JASON 60%, PVD, CAD, CA breast Plan No acute need for renal replacement therapy at this time. Hypertension control with meds as ordered. Patient not on ACEI/ARB due to ETHEL Monitor Input/Output, daily weights and renal function with basic metabolic panel Check urine analysis, spot protein/creatinine and albumin/creatinine ratio, Urine for eosinophils. TSAT/ferritin/B12/folate, vit D and PTH Check REGGIE, Anti dsDNA, serum protein electrophoresis with immunofixation, Serum FLC assay, Hep B and Hep C serology Dose meds/antibiotics for reduced GFR. Avoid fleets enema/magnesium based laxatives. Avoid nephrotoxins/NSAIDs/ iodinated contrast (unless needed emergently) Glycemic control Further work up/management as per primary team Thanks for allowing me to participate in care of your patient. Will follow patient with you. Please call if any Qs Dr Shiraz Husain Office: [phone] Chief Complaint;foot pain reason for consult: ETHEL HPI: Pt is a 72 F with hx of diabetes Mellitus (? years), hypertension (many years), CAD s/p stent, PVD s/p iliac stent, Rt renal artery stenosis 60%, Ca breast s/p chemo presented with complaints of foot, chest and abdomen pain. she was uncoperative during hx and wasnt providing much of hx. Denies OTC/herbal meds. reports heavy use of NSAIDs as naproxe, up to 10 tab/ day for months No recent iodinated contrast exposure. No obvious episodes of low BP. probably has baseline CKD with cr 1.0-1.2 with intermittent AKIs ROS: Cardiovascular: No chest pain. Pulmonary: No shortness of breath Gastrointestinal: c/o abdominal pain No nausea. No vomiting. Genitourinary: No pain while urinating. Denies blood in urine. All other negative Physical Examination: General Appearance: Comfortable, in no acute respiratory distress, unco- operative . Vitals reviewed and noted as below Head; Atraumatic, normocephalic ENT: no ulcers no thrush. Tongue is midline. Oropharynx: no rash or ulcers. EYES: Pupils are equal, round and reactive to light accommodation. Eye muscles and extraocular movement intact. Sclera is anicteric. Neck; supple no lymphadenopathy, no thyromegaly or bruit Lungs: Normal respiratory rate/effort. Breath sounds bilateral equal and clear Heart: Normal rate. s1s2 normal. No rub or gallop. Extremities: no edema. No varicose veins Neurological: Patient is alert, awake and oriented to person, place and time. No focal deficit. Strength bilateral appropriate and equal Skin: Warm and dry. Normal turgor. No rash. Palpitation: Normal elasticity for age Abdomen: Abdomen is soft. Bowel sounds +. There is no abdominal tenderness, no guarding/rigidity no organomegaly Psych: limited insight and anxious MSK: no joint tenderness or swelling. Digits and nails normal, no deformity : kidney or bladder not palpable Labs/imaging reviewed. Past medical history, past surgical history, family history, social history, allergy reviewed and noted as below Family hx: no hx of CKD. Rest non-contributory UA 3+ protein sono jun 2017: simple cyst. previous CT showed stable complex cyst left kidney echo; moderate to severe TR Past Patient History - Infectious Disease Hx of Infectious Diseases: None - Tetanus Immunizations Tetanus Immunization: Unknown - Past Medical History & Family History Past Medical History?: Yes - Past Social History Smoking Status: Current Some Days Smoker - CARDIAC Hx Congestive Heart Failure: Yes Hx Hypercholesterolemia: Yes Hx Hypertension: Yes Hx Peripheral Edema: Yes - PULMONARY Hx Bronchitis: Yes Hx Chronic Obstructive Pulmonary Disease (COPD): Yes (Emphysema,) Hx Emphysema: Yes - NEUROLOGICAL Hx Dementia: Yes Hx Transient Ischemic Attacks (TIA): Yes - HEENT Hx HEENT Problems: Yes (left eye blurry) 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) Other/Comment: LOWER BRULE left ear - RENAL Hx Chronic Kidney Disease: Yes - ENDOCRINE/METABOLIC Hx Endocrine Disorders: No - HEMATOLOGICAL/ONCOLOGICAL Hx Anemia: Yes - INTEGUMENTARY Hx Dermatological Problems: No - MUSCULOSKELETAL/RHEUMATOLOGICAL Hx Arthritis: Yes Hx Falls: No Hx Fractures: Yes (Right Hip) Hx Osteoporosis: Yes - GASTROINTESTINAL Hx Gastrointestinal Disorders: Yes Hx Gastroesophageal Reflux: Yes - PSYCHIATRIC Hx Anxiety: Yes Hx Schizophrenia: Yes Hx Substance Use: No - SURGICAL HISTORY Hx Coronary Stent: Yes (07/26/12) - ANESTHESIA Hx Anesthesia: Yes Hx Anesthesia Reactions: No Hx Malignant Hyperthermia: No Meds Allergies/Adverse Reactions: Allergies Allergy/AdvReac Type Severity Reaction Status Date / Time iodine Allergy Severe ANAPHYLAXIS Verified 11/06/17 07:43 iv dye Allergy Severe ANAPHYLAXIS Uncoded 11/06/17 07:43 - Medications Medications: Current Medications Aspirin (Ecotrin) 81 mg PO DAILY [facility] Last Admin: 11/14/17 09:34 Dose: 81 mg Clonidine HCl (Catapres) 0.1 mg PO Q8H [facility] Last Admin: 11/14/17 12:00 Dose: 0.1 mg Diltiazem HCl (Cardizem Cd) 120 mg PO DAILY [facility] Last Admin: 11/14/17 10:39 Dose: 120 mg Heparin Sodium (Porcine) (Heparin) 5,000 units SC Q12 [facility] Last Admin: 11/14/17 11:00 Dose: 5,000 units Hydralazine HCl (Apresoline) 75 mg PO TID [facility] Last Admin: 11/14/17 14:41 Dose: 75 mg Ceftriaxone Sodium 1 gm/ (Sodium Chloride) 100 mls @ 100 mls/hr IVPB DAILY [facility] Last Admin: 11/14/17 11:00 Dose: Not Given Sodium Chloride (Sodium Chloride 0.45%) 1,000 mls @ 80 mls/hr IV .[id number] [facility] Last Admin: 11/14/17 12:00 Dose: Not Given Morphine Sulfate (Morphine) 2 mg IVP Q4 PRN PRN Reason: Pain, moderate (4-7) Last Admin: 11/14/17 12:38 Dose: 2 mg Pantoprazole Sodium (Protonix Inj) 40 mg IVP DAILY [facility] Last Admin: 11/14/17 09:34 Dose: 40 mg Ranolazine (Ranexa) 500 mg PO BID [facility] Last Admin: 11/14/17 10:00 Dose: 500 mg Fluticasone/Salmeterol (Advair Diskus 250/50) 1 puff INH RQ12 [facility] Last Admin: 11/14/17 07:28 Dose: Not Given Tiotropium [place] (Spiriva) 18 mcg INH RQ24 [facility] Last Admin: 11/14/17 07:28 Dose: Not Given Tramadol HCl (Ultram) 50 mg PO TID [facility] Last Admin: 11/14/17 14:41 Dose: 50 mg Results - Vital Signs Recent Vital Signs: Last Vital Signs Temp 97.2 F L 11/14/17 15:00 Pulse 61 11/14/17 16:00 Resp 20 11/14/17 15:00 BP 123/67 11/14/17 15:00 Pulse Ox 96 11/14/17 15:00 - Labs Result Diagrams: 11/13/17 07:12 11/13/17 07:12
[2017-11-14] MEDS ORDERED: Albuterol-Ipratrop 3 mg / 0.5 (3 ml) UD INH PRN (18:10)
--- NOTE | 2017-11-14 18:10 | CP.PCM.CON ---
History of Present Illness - History of Present Illness History of Present Illness: admitted with abdominal pain, dyspnea when eating h/o copd Review of Systems - Review of Systems All systems: reviewed and no additional remarkable complaints except - Respiratory Respiratory: Dyspnea on Exertion - Gastrointestinal Gastrointestinal: Abdominal Pain Past Patient History - Infectious Disease Hx of Infectious Diseases: None - Tetanus Immunizations Tetanus Immunization: Unknown - Past Medical History & Family History Past Medical History?: Yes - Past Social History Smoking Status: Current Some Days Smoker - CARDIAC Hx Congestive Heart Failure: Yes Hx Hypercholesterolemia: Yes Hx Hypertension: Yes Hx Peripheral Edema: Yes - PULMONARY Hx Bronchitis: Yes Hx Chronic Obstructive Pulmonary Disease (COPD): Yes (Emphysema,) Hx Emphysema: Yes - NEUROLOGICAL Hx Dementia: Yes Hx Transient Ischemic Attacks (TIA): Yes - HEENT Hx HEENT Problems: Yes (left eye blurry) 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) Other/Comment: [place] left ear - RENAL Hx Chronic Kidney Disease: Yes - ENDOCRINE/METABOLIC Hx Endocrine Disorders: No - HEMATOLOGICAL/ONCOLOGICAL Hx Anemia: Yes - INTEGUMENTARY Hx Dermatological Problems: No - MUSCULOSKELETAL/RHEUMATOLOGICAL Hx Arthritis: Yes Hx Falls: No Hx Fractures: Yes (Right Hip) Hx Osteoporosis: Yes - GASTROINTESTINAL Hx Gastrointestinal Disorders: Yes Hx Gastroesophageal Reflux: Yes - PSYCHIATRIC Hx Anxiety: Yes Hx Schizophrenia: Yes Hx Substance Use: No - SURGICAL HISTORY Hx Coronary Stent: Yes (07/26/12) - ANESTHESIA Hx Anesthesia: Yes Hx Anesthesia Reactions: No Hx Malignant Hyperthermia: No Meds Allergies/Adverse Reactions: Allergies Allergy/AdvReac Type Severity Reaction Status Date / Time iodine Allergy Severe ANAPHYLAXIS Verified 11/06/17 07:43 iv dye Allergy Severe ANAPHYLAXIS Uncoded 11/06/17 07:43 - Medications Medications: Current Medications Aspirin (Ecotrin) 81 mg PO DAILY [facility] Last Admin: 11/14/17 09:34 Dose: 81 mg Clonidine HCl (Catapres) 0.1 mg PO Q8H [facility] Last Admin: 11/14/17 12:00 Dose: 0.1 mg Diltiazem HCl (Cardizem Cd) 120 mg PO DAILY [facility] Last Admin: 11/14/17 10:39 Dose: 120 mg Heparin Sodium (Porcine) (Heparin) 5,000 units SC Q12 [facility] Last Admin: 11/14/17 11:00 Dose: 5,000 units Hydralazine HCl (Apresoline) 75 mg PO TID [facility] Last Admin: 11/14/17 17:52 Dose: 75 mg Ceftriaxone Sodium 1 gm/ (Sodium Chloride) 100 mls @ 100 mls/hr IVPB DAILY [facility] Last Admin: 11/14/17 11:00 Dose: Not Given Sodium Chloride (Sodium Chloride 0.45%) 1,000 mls @ 80 mls/hr IV .[id number] [facility] Last Admin: 11/14/17 12:00 Dose: Not Given Morphine Sulfate (Morphine) 2 mg IVP Q4 PRN PRN Reason: Pain, moderate (4-7) Last Admin: 11/14/17 12:38 Dose: 2 mg Pantoprazole Sodium (Protonix Inj) 40 mg IVP DAILY [facility] Last Admin: 11/14/17 09:34 Dose: 40 mg Ranolazine (Ranexa) 500 mg PO BID [facility] Last Admin: 11/14/17 17:52 Dose: 500 mg Fluticasone/Salmeterol (Advair Diskus 250/50) 1 puff INH RQ12 [facility] Last Admin: 11/14/17 07:28 Dose: Not Given Tiotropium [place] (Spiriva) 18 mcg INH RQ24 [facility] Last Admin: 11/14/17 07:28 Dose: Not Given Tramadol HCl (Ultram) 50 mg PO TID [facility] Last Admin: 11/14/17 17:52 Dose: 50 mg Physical Exam - Constitutional Appears: Chronically Ill - Head Exam Head Exam: ATRAUMATIC, NORMOCEPHALIC - Eye Exam Eye Exam: Normal appearance Pupil Exam: NORMAL ACCOMODATION - ENT Exam ENT Exam: Mucous Membranes Moist - Neck Exam Neck exam: Positive for: Normal Inspection - Respiratory Exam Respiratory Exam: Decreased Breath Sounds, Prolonged Expiratory Phase - Cardiovascular Exam Cardiovascular Exam: REGULAR RHYTHM, +S1, +S2 - GI/Abdominal Exam GI & Abdominal Exam: Normal Bowel Sounds, Soft - Rectal Exam Rectal Exam: Deferred - Neurological Exam Neurological exam: Alert, Oriented x3 - Psychiatric Exam Psychiatric exam: Anxious Results - Vital Signs Recent Vital Signs: Last Vital Signs Temp 97.2 F L 11/14/17 15:00 Pulse 61 11/14/17 16:00 Resp 20 11/14/17 15:00 BP 123/67 11/14/17 15:00 Pulse Ox 96 11/14/17 15:00 - Labs Result Diagrams: 11/13/17 07:12 11/13/17 07:12 Assessment & Plan (1) COPD (chronic obstructive pulmonary disease) Status: Chronic (2) Abdominal pain Status: Acute
--- NOTE | 2017-11-14 20:02 | CP.PCM.PN ---
Subjective - Date & Time of Evaluation Date of Evaluation: 11/14/17 Time of Evaluation: 09:20 - Subjective Subjective: Podiatry Consult Note - Dr. Greenfield 72 y/o female seen at bedside this morning concerning of left foot pain. Pt states that pain level is maintained at regular levels, though pain medication does help. Says she wants to be seen more by physical therapy so she can walk better. She denies any acute overnight events. Denies overnight F/C/N/V/CP/SOb Objective - Vital Signs/Intake and Output Vital Signs (last 24 hours): Temp Pulse Resp BP Pulse Ox 97.2 F L 61 20 123/67 96 11/14/17 15:00 11/14/17 16:00 11/14/17 15:00 11/14/17 15:00 11/14/17 15:00 Intake and Output: 11/14/17 11/15/17 18:59 06:59 Intake Total 150 Balance 150 - Medications Medications: Current Medications Albuterol/Ipratropium (Duoneb 3 Mg/0.5 Mg (3 Ml) Ud) 3 ml INH RQ2 PRN PRN Reason: Shortness of Breath Aspirin (Ecotrin) 81 mg PO DAILY [facility] Last Admin: 11/14/17 09:34 Dose: 81 mg Clonidine HCl (Catapres) 0.1 mg PO Q8H [facility] Last Admin: 11/14/17 18:49 Dose: 0.1 mg Diltiazem HCl (Cardizem Cd) 120 mg PO DAILY [facility] Last Admin: 11/14/17 10:39 Dose: 120 mg Heparin Sodium (Porcine) (Heparin) 5,000 units SC Q12 [facility] Last Admin: 11/14/17 11:00 Dose: 5,000 units Hydralazine HCl (Apresoline) 75 mg PO TID [facility] Last Admin: 11/14/17 17:52 Dose: 75 mg Ceftriaxone Sodium 1 gm/ (Sodium Chloride) 100 mls @ 100 mls/hr IVPB DAILY [facility] Last Admin: 11/14/17 11:00 Dose: Not Given Sodium Chloride (Sodium Chloride 0.45%) 1,000 mls @ 80 mls/hr IV .[id number] [facility] Last Admin: 11/14/17 12:00 Dose: Not Given Morphine Sulfate (Morphine) 2 mg IVP Q4 PRN PRN Reason: Pain, moderate (4-7) Last Admin: 11/14/17 18:50 Dose: 2 mg Pantoprazole Sodium (Protonix Inj) 40 mg IVP DAILY [facility] Last Admin: 11/14/17 09:34 Dose: 40 mg Ranolazine (Ranexa) 500 mg PO BID [facility] Last Admin: 11/14/17 17:52 Dose: 500 mg Fluticasone/Salmeterol (Advair Diskus 250/50) 1 puff INH RQ12 [facility] Last Admin: 11/14/17 07:28 Dose: Not Given Tiotropium [place] (Spiriva) 18 mcg INH RQ24 [facility] Last Admin: 11/14/17 07:28 Dose: Not Given Tramadol HCl (Ultram) 50 mg PO TID [facility] Last Admin: 11/14/17 17:52 Dose: 50 mg - Labs Labs: 11/13/17 07:12 11/13/17 07:12 - Constitutional Appears: Non-toxic, No Acute Distress, Chronically Ill - Extremities Exam Additional comments: Lower extremity examination: Vasc: DP/PT pulses palpable 2/4 B/L. CFT < 3 sec to all digits. Diffuse varicosities noted to lower extremities. No pedal edema noted. Temperature gradient warm to cool from proximal to distal. Derm: No open lesions, no erythema, no ecchymosis, no interdigital maceration. Nails normotrophic and hygienic x 10. Neuro: Protective sensation grossly intact. Right lower extremity positive for ankle level clonus. Ortho: No tenderness to palpation of left foot. Ankle, STJ, MTJ, 1st MPJ ROM are WNL on passive assessment. Muscle strength graded 4/5 to enterior muscle group,graded 5/5 to remaining muscle groups. Decreased muscle volume and tone to all major leg muscle groups. Decreased bilateral ankle joint dorsiflexion. - Neurological Exam Neurological Exam: Alert, Awake, Oriented x3 - Psychiatric Exam Psychiatric exam: Normal Affect, Normal Mood Assessment and Plan - Assessment and Plan (Free Text) Assessment: 72 year odl female with 1) bilateral lower extremity Myasthenia. 2) Right side lower extrmity clonus secondary to UMN deficit. 3) lower extremity arthralgia. 4 ) Lower extremity moderate deconditioned status. Plan: Pt seen and evaluated at bedside with attending, Dr. Greenfield, present. Per chart review, pt had possible small avulsion fracture of left fibula in 2016 but did not follow up Ankle x-rays taken on 10/31/2017 show no signs of acute fracture New foot x-rays reviewed - noted disuse demineralization noted to left foot. Mild diffuse osteoarthritis. No acute fractures or noted joint subluxation or dislocation. Consideration for potential neurolocical evaluation indicated. Pt encouraged to continue ambulation with physical therapy with use of a rolling walker. Advancing pt to full weightbearing to pursue physical therapy and agressive reconditioning. Noted physical therapy notes contraindication to treatment while pts troponins trend up. Podiatry will continue to follow patient while in house
[2017-11-15] MEDS: Morphine 4 MG/ML VIAL IVP PRN ×2 (00:33→04:38)
[2017-11-15 06:52] LABS: HEMOGLOBIN 9.1 g/dL (11.0-16.0); MEAN CELL VOLUME 76.3 fL (81.0-99.0); MEAN CORPUSCULAR HEMOGLOBIN 24.7 pg (27.0-31.0); MEAN CORPUSCULAR HGB CONC 32.3 g/dL (33.0-37.0); MEAN PLATELET VOLUME 10.2 fL (7.2-11.7); RBC 3.68 Mil/uL (3.80-5.20); RED CELL DISTRIBUTION WIDTH 18.7 % (11.5-14.5); WHITE BLOOD COUNT 7.3 K/uL (4.8-10.8)
[2017-11-15 07:02] LABS: ALB/GLOB RATIO 1.1 (1.0-2.1); ALBUMIN 3.4 g/dL (3.5-5.0); ALT/SGPT 12 U/L (9-52); AST/SGOT 12 U/L (14-36); BLOOD UREA NITROGEN 27 mg/dL (7-17); CALCIUM 9.3 mg/dl (8.6-10.4); GFR AFRICAN-AMERICAN 45; GFR NON-AFRICAN AMERICAN 37
[2017-11-15 07:23] LABS: HEPATITIS B SURFACE AG Negative (NEGATIVE)
[2017-11-15] MEDS: Fluticasone-Salmeterol 250-50mcg Diskus INH SCH (07:58)
[2017-11-15] MEDS: Tiotropium 18 mcg Cap For Inhalation INH SCH (07:58)
[2017-11-15 08:20] LABS: SQUAMOUS EPITHIAL 3 /hpf (0-5); URINE BACTERIA RARE (<OCC); URINE BILIRUBIN NEGATIVE (NEGATIVE); URINE BLOOD NEGATIVE (NEGATIVE); URINE CLARITY Hazy (Clear); URINE COLOR Yellow (YELLOW); URINE GLUCOSE (UA) NORMAL (Normal); URINE LEUKOCYTE ESTERASE NEG Leu/uL (Negative); URINE NITRATE NEGATIVE (NEGATIVE); URINE PROTEIN 2+ mg/dL (NEGATIVE); URINE UROBILINOGEN NORMAL mg/dL (0.2-1.0)
[2017-11-15 08:33] VITALS: BP 143/70; PULSE 72; TEMP 98.6; O2SAT 95
[2017-11-15 08:55] LABS: CREATININE, RANDOM URINE 110.7 mg/dL
--- NOTE | 2017-11-15 10:06 | CP.PCM.PN ---
Subjective - Date & Time of Evaluation Date of Evaluation: 11/14/17 Time of Evaluation: 08:10 - Subjective Subjective: Occ sob no chest pain Objective - Vital Signs/Intake and Output Vital Signs (last 24 hours): Temp Pulse Resp BP Pulse Ox 98.6 F 72 20 143/70 95 11/15/17 08:00 11/15/17 08:00 11/15/17 08:00 11/15/17 08:00 11/15/17 08:00 Intake and Output: 11/15/17 11/15/17 06:59 18:59 Intake Total 120 Balance 120 - Medications Medications: Current Medications Albuterol/Ipratropium (Duoneb 3 Mg/0.5 Mg (3 Ml) Ud) 3 ml INH RQ2 PRN PRN Reason: Shortness of Breath Aspirin (Ecotrin) 81 mg PO DAILY [facility] Last Admin: 11/14/17 09:34 Dose: 81 mg Clonidine HCl (Catapres) 0.1 mg PO Q8H [facility] Last Admin: 11/15/17 04:40 Dose: 0.1 mg Diltiazem HCl (Cardizem Cd) 120 mg PO DAILY [facility] Last Admin: 11/14/17 10:39 Dose: 120 mg Hydralazine HCl (Apresoline) 75 mg PO TID [facility] Last Admin: 11/14/17 17:52 Dose: 75 mg Ceftriaxone Sodium 1 gm/ (Sodium Chloride) 100 mls @ 100 mls/hr IVPB DAILY [facility] Last Admin: 11/14/17 11:00 Dose: Not Given Sodium Chloride (Sodium Chloride 0.45%) 1,000 mls @ 80 mls/hr IV .[id number] [facility] Last Admin: 11/14/17 23:48 Dose: Not Given Ketorolac Tromethamine (Toradol) 30 mg IVP Q8H [facility] Last Admin: 11/15/17 06:23 Dose: Not Given Pantoprazole Sodium (Protonix Inj) 40 mg IVP DAILY [facility] Last Admin: 11/14/17 09:34 Dose: 40 mg Ranolazine (Ranexa) 500 mg PO BID [facility] Last Admin: 11/14/17 17:52 Dose: 500 mg Fluticasone/Salmeterol (Advair Diskus 250/50) 1 puff INH RQ12 [facility] Last Admin: 11/15/17 07:58 Dose: 1 puff Tiotropium [place] (Spiriva) 18 mcg INH RQ24 [facility] Last Admin: 11/15/17 07:58 Dose: 18 mcg Tramadol HCl (Ultram) 50 mg PO TID [facility] Last Admin: 11/14/17 17:52 Dose: 50 mg - Labs Labs: 11/15/17 06:30 11/15/17 06:30 - Constitutional Appears: Non-toxic - Eye Exam Eye Exam: absent: Scleral icterus - Neck Exam Neck Exam: Full ROM - Respiratory Exam Respiratory Exam: Decreased Breath Sounds - Cardiovascular Exam Cardiovascular Exam: REGULAR RHYTHM - GI/Abdominal Exam GI & Abdominal Exam: Soft - Extremities Exam Extremities Exam: absent: Pedal Edema Assessment and Plan - Assessment and Plan (Free Text) Assessment: ACS CAD T2dm Bipolar disorder Plan: Cont meds No elective procedural intervention
--- NOTE | 2017-11-15 10:08 | CP.PCM.PN ---
Subjective - Date & Time of Evaluation Date of Evaluation: 11/15/17 Time of Evaluation: 10:06 - Subjective Subjective: no new complaints no respiratory distress Objective - Vital Signs/Intake and Output Vital Signs (last 24 hours): Temp Pulse Resp BP Pulse Ox 98.6 F 72 20 143/70 95 11/15/17 08:00 11/15/17 08:00 11/15/17 08:00 11/15/17 08:00 11/15/17 08:00 Intake and Output: 11/15/17 11/15/17 06:59 18:59 Intake Total 120 Balance 120 - Medications Medications: Current Medications Albuterol/Ipratropium (Duoneb 3 Mg/0.5 Mg (3 Ml) Ud) 3 ml INH RQ2 PRN PRN Reason: Shortness of Breath Aspirin (Ecotrin) 81 mg PO DAILY [facility] Last Admin: 11/14/17 09:34 Dose: 81 mg Clonidine HCl (Catapres) 0.1 mg PO Q8H [facility] Last Admin: 11/15/17 04:40 Dose: 0.1 mg Diltiazem HCl (Cardizem Cd) 120 mg PO DAILY [facility] Last Admin: 11/14/17 10:39 Dose: 120 mg Hydralazine HCl (Apresoline) 75 mg PO TID [facility] Last Admin: 11/14/17 17:52 Dose: 75 mg Ceftriaxone Sodium 1 gm/ (Sodium Chloride) 100 mls @ 100 mls/hr IVPB DAILY [facility] Last Admin: 11/14/17 11:00 Dose: Not Given Sodium Chloride (Sodium Chloride 0.45%) 1,000 mls @ 80 mls/hr IV .[id number] [facility] Last Admin: 11/14/17 23:48 Dose: Not Given Ketorolac Tromethamine (Toradol) 30 mg IVP Q8H [facility] Last Admin: 11/15/17 06:23 Dose: Not Given Pantoprazole Sodium (Protonix Inj) 40 mg IVP DAILY [facility] Last Admin: 11/14/17 09:34 Dose: 40 mg Ranolazine (Ranexa) 500 mg PO BID [facility] Last Admin: 11/14/17 17:52 Dose: 500 mg Fluticasone/Salmeterol (Advair Diskus 250/50) 1 puff INH RQ12 [facility] Last Admin: 11/15/17 07:58 Dose: 1 puff Tiotropium [place] (Spiriva) 18 mcg INH RQ24 [facility] Last Admin: 11/15/17 07:58 Dose: 18 mcg Tramadol HCl (Ultram) 50 mg PO TID [facility] Last Admin: 11/14/17 17:52 Dose: 50 mg - Labs Labs: 11/15/17 06:30 11/15/17 06:30 - Constitutional Appears: Chronically Ill - Head Exam Head Exam: ATRAUMATIC, NORMOCEPHALIC - Eye Exam Eye Exam: Normal appearance - ENT Exam ENT Exam: Mucous Membranes Moist - Neck Exam Neck Exam: Normal Inspection - Respiratory Exam Respiratory Exam: Decreased Breath Sounds, Prolonged Expiratory Phase - Cardiovascular Exam Cardiovascular Exam: REGULAR RHYTHM, +S1, +S2 - GI/Abdominal Exam GI & Abdominal Exam: Normal Bowel Sounds - Rectal Exam Rectal Exam: Deferred - Neurological Exam Neurological Exam: Awake, Oriented x3 - Psychiatric Exam Psychiatric exam: Flat Affect Assessment and Plan (1) COPD (chronic obstructive pulmonary disease) Status: Chronic (2) Abdominal pain Status: Acute
--- NOTE | 2017-11-15 10:11 | CP.PCM.PN ---
Subjective - Date & Time of Evaluation Date of Evaluation: 11/15/17 Time of Evaluation: 10:08 - Subjective Subjective: stable cardiac petit no chest pain Objective - Vital Signs/Intake and Output Vital Signs (last 24 hours): Temp Pulse Resp BP Pulse Ox 98.6 F 72 20 143/70 95 11/15/17 08:00 11/15/17 08:00 11/15/17 08:00 11/15/17 08:00 11/15/17 08:00 Intake and Output: 11/15/17 11/15/17 06:59 18:59 Intake Total 120 Balance 120 - Medications Medications: Current Medications Albuterol/Ipratropium (Duoneb 3 Mg/0.5 Mg (3 Ml) Ud) 3 ml INH RQ2 PRN PRN Reason: Shortness of Breath Aspirin (Ecotrin) 81 mg PO DAILY [facility] Last Admin: 11/14/17 09:34 Dose: 81 mg Clonidine HCl (Catapres) 0.1 mg PO Q8H [facility] Last Admin: 11/15/17 04:40 Dose: 0.1 mg Diltiazem HCl (Cardizem Cd) 120 mg PO DAILY [facility] Last Admin: 11/14/17 10:39 Dose: 120 mg Hydralazine HCl (Apresoline) 75 mg PO TID [facility] Last Admin: 11/14/17 17:52 Dose: 75 mg Ceftriaxone Sodium 1 gm/ (Sodium Chloride) 100 mls @ 100 mls/hr IVPB DAILY [facility] Last Admin: 11/14/17 11:00 Dose: Not Given Sodium Chloride (Sodium Chloride 0.45%) 1,000 mls @ 80 mls/hr IV .[id number] [facility] Last Admin: 11/14/17 23:48 Dose: Not Given Ketorolac Tromethamine (Toradol) 30 mg IVP Q8H [facility] Last Admin: 11/15/17 06:23 Dose: Not Given Pantoprazole Sodium (Protonix Inj) 40 mg IVP DAILY [facility] Last Admin: 11/14/17 09:34 Dose: 40 mg Ranolazine (Ranexa) 500 mg PO BID [facility] Last Admin: 11/14/17 17:52 Dose: 500 mg Fluticasone/Salmeterol (Advair Diskus 250/50) 1 puff INH RQ12 [facility] Last Admin: 11/15/17 07:58 Dose: 1 puff Tiotropium [place] (Spiriva) 18 mcg INH RQ24 [facility] Last Admin: 11/15/17 07:58 Dose: 18 mcg Tramadol HCl (Ultram) 50 mg PO TID [facility] Last Admin: 11/14/17 17:52 Dose: 50 mg - Labs Labs: 11/15/17 06:30 11/15/17 06:30 - Constitutional Appears: Non-toxic - Eye Exam Eye Exam: absent: Scleral icterus - ENT Exam ENT Exam: Mucous Membranes Moist - Neck Exam Neck Exam: Full ROM - Respiratory Exam Respiratory Exam: absent: Decreased Breath Sounds - Cardiovascular Exam Cardiovascular Exam: REGULAR RHYTHM - GI/Abdominal Exam GI & Abdominal Exam: Soft - Extremities Exam Extremities Exam: Calf Tenderness. absent: Pedal Edema - Neurological Exam Neurological Exam: Alert. absent: Oriented x3 Assessment and Plan - Assessment and Plan (Free Text) Assessment: CAD, stable T2dm HTN COPD Bipolar disorder Plan: Ok to go for rehab Cont meds
[2017-11-15] MEDS: Ranolazine 500 mg Extended Release Tablets PO SCH (10:32)
[2017-11-15] MEDS: diltiaZEM 120 mg/24 Hours CD Cap PO SCH (10:36)
--- NOTE | 2017-11-15 14:13 | CP.PCM.PN ---
Subjective - Date & Time of Evaluation Date of Evaluation: 11/15/17 Time of Evaluation: 09:30 - Subjective Subjective: Nephrology Consultation: Assessment: Stable Acute Kidney Injury (N17.9) possibly due to NSAIDs Diabetic chronic Kidney Disease (E11.22) Hypertensive Chronic Kidney Disease (I12.9) Chronic Kidney Disease (N18.3) Stage 3 with 1.7 gram proteinuria (R80.9) likely due to ETHEL, NSAIDs Anemia (D64.9), HTN (I12.9), Rt JASON 60%, PVD, CAD, CA breast Plan No acute need for renal replacement therapy at this time. Hypertension control with meds as ordered. Patient not on ACEI/ARB due to ETHEL Monitor Input/Output, daily weights and renal function with basic metabolic panel Check urine analysis, spot protein/creatinine and albumin/creatinine ratio, Urine for eosinophils. TSAT/ferritin/B12/folate, vit D and PTH Check REGGIE, Anti dsDNA, serum protein electrophoresis with immunofixation, Serum FLC assay, Hep B and Hep C serology Dose meds/antibiotics for reduced GFR. Avoid fleets enema/magnesium based laxatives. Avoid nephrotoxins/NSAIDs/ iodinated contrast (unless needed emergently) Glycemic control Further work up/management as per primary team Thanks for allowing me to participate in care of your patient. Will follow patient with you. Please call if any Qs Dr Shiraz Husain Office: [phone] reason for consult: ETHEL HPI: Pt is a 72 F with hx of diabetes Mellitus (? years), hypertension (many years), CAD s/p stent, PVD s/p iliac stent, Rt renal artery stenosis 60%, Ca breast s/p chemo presented with complaints of foot, chest and abdomen pain. she was uncoperative during hx and wasnt providing much of hx. Denies OTC/herbal meds. reports heavy use of NSAIDs as naproxe, up to 10 tab/ day for months No recent iodinated contrast exposure. No obvious episodes of low BP. probably has baseline CKD with cr 1.0-1.2 with intermittent AKIs ROS: unable she was uncooperative. Says "Get out" Physical Examination: unable. pt agitated/upset and uncooperative Labs/imaging reviewed. Past medical history, past surgical history, family history, social history, allergy reviewed and noted as below Family hx: no hx of CKD. Rest non-contributory UA 3+ protein sono jun 2017: simple cyst. previous CT showed stable complex cyst left kidney echo; moderate to severe TR Objective - Vital Signs/Intake and Output Vital Signs (last 24 hours): Temp Pulse Resp BP Pulse Ox 98.6 F 72 20 143/70 95 11/15/17 08:00 11/15/17 08:00 11/15/17 08:00 11/15/17 08:00 11/15/17 08:00 Intake and Output: 11/15/17 11/15/17 06:59 18:59 Intake Total 120 Balance 120 - Medications Medications: Current Medications Albuterol/Ipratropium (Duoneb 3 Mg/0.5 Mg (3 Ml) Ud) 3 ml INH RQ2 PRN PRN Reason: Shortness of Breath Aspirin (Ecotrin) 81 mg PO DAILY [facility] Last Admin: 11/15/17 10:32 Dose: 81 mg Clonidine HCl (Catapres) 0.1 mg PO Q8H [facility] Last Admin: 11/15/17 12:30 Dose: 0.1 mg Diltiazem HCl (Cardizem Cd) 120 mg PO DAILY [facility] Last Admin: 11/15/17 10:36 Dose: 120 mg Hydralazine HCl (Apresoline) 75 mg PO TID [facility] Last Admin: 11/15/17 14:05 Dose: 75 mg Ceftriaxone Sodium 1 gm/ (Sodium Chloride) 100 mls @ 100 mls/hr IVPB DAILY [facility] Last Admin: 11/15/17 10:36 Dose: Not Given Sodium Chloride (Sodium Chloride 0.45%) 1,000 mls @ 80 mls/hr IV .[id number] [facility] Last Admin: 11/14/17 23:48 Dose: Not Given Ketorolac Tromethamine (Toradol) 30 mg IVP Q8H [facility] Last Admin: 11/15/17 14:03 Dose: 30 mg Pantoprazole Sodium (Protonix Inj) 40 mg IVP DAILY [facility] Last Admin: 11/15/17 10:33 Dose: 40 mg Ranolazine (Ranexa) 500 mg PO BID [facility] Last Admin: 11/15/17 10:32 Dose: 500 mg Fluticasone/Salmeterol (Advair Diskus 250/50) 1 puff INH RQ12 [facility] Last Admin: 11/15/17 07:58 Dose: 1 puff Tiotropium [place] (Spiriva) 18 mcg INH RQ24 [facility] Last Admin: 11/15/17 07:58 Dose: 18 mcg Tramadol HCl (Ultram) 50 mg PO TID [facility] Last Admin: 11/15/17 14:06 Dose: Not Given - Labs Labs: 11/15/17 06:30 11/15/17 06:30
--- NOTE | 2017-11-16 07:24 | DS ---
SUBJECTIVE: She is in bed complaining, refusing tests, I should sit there and tell her she has to have the blood test this morning, she refused it the other day. She just wants the pain medications but she cannot stay on pain medications, she looks very comfortable and she wants things and she is demanding. MEDICATIONS: She is on IV fluids, Flonase, Apresoline, Cardizem, Catapres, DuoNeb, Ecotrin, Protonix, Ranexa, Rocephin, Spiriva, Toradol now and Ultram. She is also on morphine. She is pretty much yelling at me. does not want to go anywhere, but wants to go home, but does not want to go today. I am trying to get her to [facility] for subacute rehab. PHYSICAL EXAMINATION: VITAL SIGNS: She has 98.3 temperature, 78 pulse, 162/67 blood pressure and 148/70 blood pressure, 20 respiratory rate, 97% O2 sat on room air. GENERAL: She is very alert. She is strong. She is yelling at me. HEENT: Head is atraumatic, normocephalic. Throat is moist. NECK: Supple. HEART: Regular rate. LUNGS: Decreased breath sounds, but clear. ABDOMEN: Soft. EXTREMITIES: No edema. I tried to explain to her that she has an NSTEMI and over that she is getting weak, I would have loved to have seen the blood tests yesterday, she did not get them done, she refused; hopefully, she will get the blood test today. I am also trying to get her to [facility] for physical therapy. Of course with the elevated troponins, Physical Therapy walker, but that is what she needs to be, I stopped the morphine and put her on Toradol. She is already on Tramadol. Cardiology is not going to do anything. Renal says to avoid as much NSAIDs as possible but it is difficult with her pain, I am trying to avoid narcotics. She has had multiple falls on narcotics in the past. Infectious Disease is seeing her. I could stop the antibiotics when we get her to [facility] for subacute rehab, today for further treatment and physical therapy before she goes home. She is here for NSTEMI and now debility. John Brown DO [facility] # [id number] [place]
== END 2017-11-15 14:50 | disposition home or self-care (01) | DRG 281 ==
LOC: C.ER 06:19 → C.9E 10:29 → C.6T 13:19
PROVIDERS: ADMIT Family Medicine; ATTEND Family Medicine
DX: I21.4 Non-ST elevation (NSTEMI) myocardial infarction (principal); I13.0 Hypertensive heart and chronic kidney disease with heart failure and stage 1 through stage 4 chronic kidney disease, or unspecified chronic kidney disease; N17.9 Acute kidney failure, unspecified; E11.22 Type 2 diabetes mellitus with diabetic chronic kidney disease; F20.9 Schizophrenia, unspecified; I50.9 Heart failure, unspecified; J44.1 Chronic obstructive pulmonary disease with (acute) exacerbation; E86.0 Dehydration; D64.9 Anemia, unspecified; F41.9 Anxiety disorder, unspecified; E78.00 Pure hypercholesterolemia, unspecified; F03.90 Unspecified dementia, unspecified severity, without behavioral disturbance, psychotic disturbance, mood disturbance, and anxiety; Z85.3 Personal history of malignant neoplasm of breast; Z86.73 Personal history of transient ischemic attack (TIA), and cerebral infarction without residual deficits; M81.0 Age-related osteoporosis without current pathological fracture; Z95.5 Presence of coronary angioplasty implant and graft; K21.9 Gastro-esophageal reflux disease without esophagitis; M79.672 Pain in left foot; N18.3 Chronic kidney disease, stage 3 (moderate); F31.9 Bipolar disorder, unspecified; T39.395A Adverse effect of other nonsteroidal anti-inflammatory drugs [NSAID], initial encounter; I25.10 Atherosclerotic heart disease of native coronary artery without angina pectoris; R10.9 Unspecified abdominal pain; I70.209 Unspecified atherosclerosis of native arteries of extremities, unspecified extremity; R53.81 Other malaise

== ENCOUNTER 2017-11-26 05:58 | Inpatient (IN) | payer MEDICARE ==
[2017-11-26 05:59] VITALS: BMI 17.2
--- NOTE | 2017-11-26 07:23 | C.PDOC ---
History Of Present Illness 72 y/o female with multiple medical problems c/o sharp sternal cp that woke her from sleep, radiates to left shoulder with associated sob. pt sts she used a nebulizer treatment at home and sob shilpi after that. pt also c/o abdominal pain that is sharp. no vomiting or diarrhea, last bm today. Time Seen by Provider: 11/26/17 07:09 Chief Complaint (Nursing): Shortness Of Breath History Per: Patient History/Exam Limitations: no limitations Onset/Duration Of Symptoms: Hrs Current Symptoms Are (Timing): Better Quality: Sharp Associated Symptoms: Nausea, Dyspnea Past Medical History Reviewed: Historical Data, Nursing Documentation, Vital Signs Vital Signs: Last Vital Signs Temp 98.7 F 11/26/17 06:21 Pulse 74 11/26/17 17:33 Resp 18 11/26/17 17:34 BP 118/53 L 11/26/17 17:33 Pulse Ox 98 11/26/17 17:37 - Medical History PMH: Anemia, Anxiety, Arthritis, Back Problems, Bronchitis, CAD, CHF, COPD, CVA , Dementia, Deep Vein Thrombosis, Emphysema, Fractures (Right Hip), HTN, Hypercholesterolemia, Hyperlipidemia, Malignancy (Breast CA left 4 yrs ago, patient in remission, last chemo was 3 years ago), Osteoporosis, Peripheral Edema, Chronic Kidney Disease, Schizophrenia, TIA Surgical History: Coronary Stent (x4) - [facility] Procedures ANGIOPLASTY OF OTHER NON-CORONARY VESSEL(S) (07/26/12) CONTR CEREBR ARTERIOGRAM (06/25/15) CONTRAST AORTOGRAM (07/26/12) DILATION OF 2 COR ART WITH DRUG-ELUT INTRALUM, PERC APPROACH (10/27/15) DX ULTRASOUND-HEART (04/04/15) EXCISION OF TOE NAIL, EXTERNAL APPROACH (09/17/16) EXERCISE TREATMENT OF MUSCULOSK WHOLE USING ASSIST EQUIPMENT (09/17/16) FLUOROSCOPY OF LEFT HEART USING LOW OSMOLAR CONTRAST (11/16/17) FLUOROSCOPY OF MULT COR ART USING L OSM CONTRAST (11/16/17) GAIT TRAINING/AMBULAT TREATMENT USING ASSIST EQUIPMENT (09/17/16) GROOMING/PERSONAL HYGIENE TREATMENT USING ASSIST EQUIPMENT (09/17/16) INSEJ OF DRUG-ELUTING STENT(S) OF OTH PERIPHERAL VESSEL(S) (07/26/12) INSERTION OF TWO VASCULAR STENTS (07/26/12) INSPECTION OF UPPER INTESTINAL TRACT, ENDO (10/31/16) MEASURE OF CARDIAC SAMPL & PRESSURE, L HEART, PERC APPROACH (11/16/17) PACKED CELL TRANSFUSION (11/06/13) PARTIAL HIP REPLACEMENT (11/06/13) PLAIN RADIOGRAPHY OF LEFT HEART USING LOW OSMOLAR CONTRAST (10/27/15) PLAIN RADIOGRAPHY OF LEFT HEART USING OTHER CONTRAST (06/05/17) PLAIN RADIOGRAPHY OF MULT COR ART USING L OSM CONTRAST (10/27/15) PLAIN RADIOGRAPHY OF MULT COR ART USING OTH CONTRAST (06/05/17) PLAIN RADIOGRAPHY OF R LOW EXTREM VEIN USING OTH CONTRAST (06/05/17) PROCEDURE ON FOUR OR MORE VESSELS (07/26/12) REMOVAL OF VAD FROM UP EXTREM SUBCU/FASCIA, 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 Negative for: Nausea, Vomiting , Diarrhea Skin: Negative for: Rash Neurological: Negative for: Weakness, Numbness Physical Exam - Physical Exam Appears: Non-toxic, Chronically Ill (appears older than age. ) Skin: Warm, Dry Head: Atraumatic, Normacephalic Oral Mucosa: Dry Neck: Supple Chest: Symmetrical, No Deformity, No Tenderness Cardiovascular: Rhythm Regular Respiratory: No Decreased Breath Sounds, No Rales, No Rhonchi, No Wheezing, Other (speaks in full sentences) Gastrointestinal/Abdominal: Bowel Sounds, Soft, Tenderness (mild rlq tenderness) , No Distention, No Guarding, No Rebound Extremity: Pedal Edema (+2 to both feet) Pulses: Left Dorsalis Pedis: Normal, Right Dorsalis Pedis: Normal Neurological/Psych: Oriented x3, Normal Speech, Normal Cognition ED Course And Treatment - Laboratory Results Result Diagrams: 11/26/17 07:53 11/26/17 07:53 O2 Sat by Pulse Oximetry: 98 - Radiology CXR: Read By Radiologist Critical Care Time - Critical Care Note Total Time (in mins): 60 Documented critical care: time excludes all time spent performing seperately billable procedures. Medical Decision Making Medical Decision Making: pt requesting morphine for her pain; sts she takes Tramadol at home, which doesn 't work.pt requested food from nurse and is eating sandwich and drinking. 11/26/2017 07:55 Chest X-ray: Creator : Eben Frank MD Comparison: 11/11/2017 Findings: Biapical pleural thickening with upper lobe granulomatous changes. Moderate to severe venous congestion. Prominent bibasilar airspace opacities. Small to moderate bilateral pleural effusions. Right paratracheal airspace opacity. Enlarged ectatic aorta. Cardiomegaly. Degenerative changes in the spine and shoulders. Impression: Biapical pleural thickening with upper lobe granulomatous changes. Moderate to severe venous congestion. Prominent bibasilar airspace opacities. Small to moderate bilateral pleural effusions. Right paratracheal airspace opacity. Enlarged ectatic aorta. Cardiomegaly. 1123 am Pt's iv non functioning. RN attempted to replace line, was able to draw blood, no line. I attempted to inset line, not successful, and patient adamantly refuses another attempt at this time. 336 pm pt c/o difficulty breathing, screaming loudly in ED, has some wheezing bilaterally. duo neb ordered. 420pm pt decompensated while in ed; hr in 120s, bp 180/120, desaturation while on bipap; Dr Jiang and Dr Brown notified. Nitro drip and morphine given per Dr Carpenter's orders. pt wheezing. duoneb ordered. ICU paged for consult @ 426 pm 502 pm pt feeling better, hr less than 100, o2 saturation in high 90s on bipap , bp in 150-/90 approx. Pt seen by Dr Blanco, will be upgraded to ICU. . Disposition Discussed With : John Brown Doctor Will See Patient In The: Hospital - Disposition Disposition: HOSPITALIZED Disposition Time: 19:04 Condition: SERIOUS - Clinical Impression Clinical Impression: Pneumonia, CHF exacerbation Decision To Admit - Pt Status Changed To: Hospital Disposition Of: Inpatient - Admit Certification Admit to Inpatient:: After my assessment, the patient will require hospitalization for at least two midnights. This is because of the severity of symptoms shown, intensity of services needed, and/or the medical risk in this patient being treated as an outpatient. - InPatient: Physician Admission Certification: I certify that this patient requires 2 or more midnights of care for the following reason:: pt requires diaphoresisfor chf and antibiotics for pneumonia. - . Bed Request Type: Telemetry Patient Diagnosis: Pneumonia, CHF exacerbation
--- NOTE | 2017-11-26 07:54 | RAD ---
Chest x-ray single frontal view History: Chest pain. Comparison: 11/11/2017 Findings: Biapical pleural thickening with upper lobe granulomatous changes. Moderate to severe venous congestion. Prominent bibasilar airspace opacities. Small to moderate bilateral pleural effusions. Right paratracheal airspace opacity. Enlarged ectatic aorta. Cardiomegaly. Degenerative changes in the spine and shoulders. Impression: Biapical pleural thickening with upper lobe granulomatous changes. Moderate to severe venous congestion. Prominent bibasilar airspace opacities. Small to moderate bilateral pleural effusions. Right paratracheal airspace opacity. Enlarged ectatic aorta. Cardiomegaly.
[2017-11-26 07:58] LABS: BASO # 0.1 K/uL (0.0-0.2); BASO % 0.7 % (0.0-2.0); EOS # 0.4 K/uL (0.0-0.7); EOS % 2.5 % (0.0-4.0); LYMPH # 2.2 K/uL (1.0-4.3); LYMPH % 13.1 % (20.0-40.0); MEAN CORPUSCULAR HEMOGLOBIN 26.7 pg (27.0-31.0); MEAN CORPUSCULAR HGB CONC 32.8 g/dL (33.0-37.0); MEAN PLATELET VOLUME 10.4 fL (7.2-11.7); MONO # 0.6 K/uL (0.0-0.8); MONO % 3.9 % (0.0-10.0); NEUT # 13.2 K/uL (1.8-7.0); NEUT % 79.8 % (50.0-75.0); RBC 5.22 Mil/uL (3.80-5.20); RED CELL DISTRIBUTION WIDTH 20.3 % (11.5-14.5)
[2017-11-26 07:59] LABS: MEAN CELL VOLUME 81.5 fL (81.0-99.0); WHITE BLOOD COUNT 16.5 K/uL (4.8-10.8)
[2017-11-26 08:24] LABS: ALB/GLOB RATIO 1.2 (1.0-2.1); ALBUMIN 4.1 g/dL (3.5-5.0); CALCIUM 9.3 mg/dl (8.6-10.4)
[2017-11-26 08:31] LABS: TROPONIN I 0.067 ng/mL (0.00-0.120)
[2017-11-26 08:49] LABS: PROTHROMBIN TIME 11.4 SECONDS (9.7-12.2)
[2017-11-26] MEDS ORDERED: Piperacillin/Tazobact 3.375 gm 100 ML IVPB STA (08:51)
[2017-11-26] MEDS ORDERED: Vancomycin 1 gm/NS 200 ml 1 GM/200 ML BAG IVPB STA (08:57)
[2017-11-26] MEDS ORDERED: Sod Polystyrene Sulf 15 gm/60 ml Susp PO ONE (09:36)
[2017-11-26] MEDS ORDERED: Sod Polystyrene Sulf 15 gm/60 ml Susp ONE (11:07)
[2017-11-26] MEDS: Ranolazine 500 mg Extended Release Tablets PO SCH ×2 (11:38→19:59)
[2017-11-26] MEDS: Metoprolol Succinate 25 mg XL Tab PO SCH (11:38)
[2017-11-26] MEDS: diltiaZEM 120 mg/24 Hours CD Cap PO SCH (11:38)
--- NOTE | 2017-11-26 12:06 | CP.PCM.CON ---
History of Present Illness - History of Present Illness History of Present Illness: General surgery consult note for Dr. Wilbert Barragan, PGY-1 Pt S & E at bedside. Pt reports immobility due to foot pain- is wheelchair bound at baseline. Pt reports pain at apex of gluteal cleft, constant, non radiating, moderate. Admits to Chest pain, foot pain. Denies F & C, SOB, N & V, changes in bowel or bladder habits. Pt very upset during needlestick -declining physical exam. PMH: HTN, DM, DVT, COPD, Hx Left breast CA s/p chemo, CVA w/R hemiparesis, SD x 4 PSH: Cardiac cath, R hip sx, portacath insertion & removal All: Iodine (IV dye) SH: Admits to 2-3 cigarettes daily x 50 yrs, denies ETOH or illicit drug use PMD: Dr Brown Review of Systems - Review of Systems All systems: reviewed and no additional remarkable complaints except - Constitutional Constitutional: absent: Chills, Fever - EENT Eyes: Change in Vision Nose/Mouth/Throat: absent: Sore Throat - Cardiovascular Cardiovascular: Chest Pain - Respiratory Respiratory: absent: Cough - Gastrointestinal Gastrointestinal: absent: Abdominal Pain, Nausea, Vomiting - Genitourinary Genitourinary: absent: Change in Urinary Stream - Neurological Neurological: absent: Headaches Past Patient History - Infectious Disease Hx of Infectious Diseases: None - Tetanus Immunizations Tetanus Immunization: Unknown - Past Medical History & Family History Past Medical History?: Yes - Past Social History Smoking Status: Light Smoker < 10 Cigarettes Daily - CARDIAC Hx Congestive Heart Failure: Yes Hx Hypercholesterolemia: Yes Hx Hypertension: Yes Hx Peripheral Edema: Yes - PULMONARY Hx Bronchitis: Yes Hx Chronic Obstructive Pulmonary Disease (COPD): Yes Hx Emphysema: Yes - NEUROLOGICAL Hx Dementia: Yes Hx Transient Ischemic Attacks (TIA): Yes - HEENT Hx HEENT Problems: Yes 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) - RENAL Hx Chronic Kidney Disease: Yes - ENDOCRINE/METABOLIC Hx Endocrine Disorders: Yes Hx Diabetes Mellitus Type 2: Yes - HEMATOLOGICAL/ONCOLOGICAL Hx Anemia: Yes - INTEGUMENTARY Hx Dermatological Problems: No - MUSCULOSKELETAL/RHEUMATOLOGICAL Hx Arthritis: Yes Hx Fractures: Yes (Right Hip) Hx Osteoporosis: Yes - GASTROINTESTINAL Hx Gastrointestinal Disorders: Yes Hx Gastroesophageal Reflux: Yes - PSYCHIATRIC Hx Anxiety: Yes Hx Schizophrenia: Yes Hx Substance Use: No - SURGICAL HISTORY Hx Coronary Stent: Yes (x4) - ANESTHESIA Hx Anesthesia: Yes Hx Anesthesia Reactions: No Hx Malignant Hyperthermia: No Meds Allergies/Adverse Reactions: Allergies Allergy/AdvReac Type Severity Reaction Status Date / Time iodine Allergy Severe ANAPHYLAXIS Verified 11/26/17 06:28 iv dye Allergy Severe ANAPHYLAXIS Uncoded 11/06/17 07:43 - Medications Medications: Current Medications Albuterol/Ipratropium (Duoneb 3 Mg/0.5 Mg (3 Ml) Ud) 3 ml INH RQ6 [facility] Aspirin (Ecotrin) 81 mg PO DAILY [facility] Last Admin: 11/26/17 11:38 Dose: 81 mg Clonidine HCl (Catapres) 0.1 mg PO Q8H [facility] Last Admin: 11/26/17 11:38 Dose: 0.1 mg Diltiazem HCl (Cardizem Cd) 120 mg PO DAILY [facility] Last Admin: 11/26/17 11:38 Dose: 120 mg Famotidine (Pepcid) 20 mg PO DAILY [facility] Last Admin: 11/26/17 11:38 Dose: 20 mg Furosemide (Lasix) 40 mg IVP DAILY [facility] Heparin Sodium (Porcine) (Heparin) 5,000 units SC Q12 [facility] Hydralazine HCl (Apresoline) 75 mg PO TID [facility] Piperacillin Sod/Tazobactam (Sod 2.25 gm/ Sodium Chloride) 100 mls @ 100 mls/ hr IVPB Q8H [facility] Metoprolol Succinate (Toprol Xl) 25 mg PO DAILY [facility] Last Admin: 11/26/17 11:38 Dose: 25 mg Ranolazine (Ranexa) 500 mg PO BID [facility] Last Admin: 11/26/17 11:38 Dose: 500 mg Fluticasone/Salmeterol (Advair Diskus 250/50) 1 puff INH RQ12 [facility] Tiotropium [place] (Spiriva) 18 mcg INH RQ24 [facility] Tiotropium [place] (Spiriva Inhalation Handihaler Device) 1 inhaler INH ONCE ONE Stop: 11/27/17 08:01 Tramadol HCl (Ultram) 1 mg PO Q8 PRN PRN Reason: breakthrough pain Physical Exam - Constitutional Appears: Non-toxic, No Acute Distress, Older Than Stated Age - Head Exam Head Exam: ATRAUMATIC, NORMAL INSPECTION, NORMOCEPHALIC - Eye Exam Eye Exam: EOMI, Normal appearance - ENT Exam ENT Exam: Mucous Membranes Moist, Normal Exam - Neck Exam Neck exam: Positive for: Full Rom, Normal Inspection - Respiratory Exam Respiratory Exam: Respiratory Distress (on bipap) - Cardiovascular Exam Cardiovascular Exam: Tachycardia, +S1, +S2 - GI/Abdominal Exam GI & Abdominal Exam: Distended (mildly), Guarding, Soft, Tenderness (diffuse). absent: Hernia - Extremities Exam Extremities exam: Positive for: normal inspection - Neurological Exam Neurological exam: Alert, CN II-XII Intact, Oriented x3 - Psychiatric Exam Psychiatric exam: Normal Affect - Skin Skin Exam: Erythema (over proximal aspect of gluteal cleft, no skin break down, blanchable), Intact, Warm Results - Vital Signs Recent Vital Signs: Last Vital Signs Temp 98.7 F 11/26/17 06:21 Pulse 91 H 11/26/17 11:07 Resp 18 11/26/17 11:07 BP 161/73 H 11/26/17 11:07 Pulse Ox 98 11/26/17 11:25 - Labs Result Diagrams: 11/26/17 07:53 11/26/17 07:53 Labs: Laboratory Results - last 24 hr 11/26/17 11/26/17 11/26/17 07:53 07:53 08:12 WBC 16.5 H D RBC 5.22 H Hgb 14.0 D Hct 42.6 MCV 81.5 D MCH 26.7 L MCHC 32.8 L RDW 20.3 H Plt Count 277 MPV 10.4 Neut % (Auto) 79.8 H Lymph % (Auto) 13.1 L [place] % (Auto) 3.9 Eos % (Auto) 2.5 Baso % (Auto) 0.7 Neut # (Auto) 13.2 H Lymph # (Auto) 2.2 [place] # (Auto) 0.6 Eos # (Auto) 0.4 Baso # (Auto) 0.1 PT INR Sodium 140 Potassium 5.4 H Chloride 101 Carbon Dioxide 27 Anion Gap 17 BUN 25 H Creatinine 1.1 Est GFR ( Amer) 59 Est GFR (Non-Af Amer) 49 Random Glucose 126 H Calcium 9.3 Total Bilirubin 1.3 AST 67 H D ALT 9 D Alkaline Phosphatase 63 Troponin I 0.0670 NT-Pro-B Natriuret Pep 02687 H Total Protein 7.3 Albumin 4.1 Globulin 3.3 Albumin/Globulin Ratio 1.2 11/26/17 08:21 WBC RBC Hgb Hct MCV MCH MCHC RDW Plt Count MPV Neut % (Auto) Lymph % (Auto) [place] % (Auto) Eos % (Auto) Baso % (Auto) Neut # (Auto) Lymph # (Auto) [place] # (Auto) Eos # (Auto) Baso # (Auto) PT 11.4 INR 1.0 Sodium Potassium Chloride Carbon Dioxide Anion Gap BUN Creatinine Est GFR ( Amer) Est GFR (Non-Af Amer) Random Glucose Calcium Total Bilirubin AST ALT Alkaline Phosphatase Troponin I NT-Pro-B Natriuret Pep Total Protein Albumin Globulin Albumin/Globulin Ratio Assessment & Plan - Assessment and Plan (Free Text) Assessment: 72F w/sacral wound- declined physical exam Plan: Local wound care Air/off loading mattress Turn pt Q2H Pain control Further recs pending attending evaluation DW attending [place], PGY-1 - Date & Time Date: 11/26/17 Time: 12:04
--- NOTE | 2017-11-26 12:31 | CP.PCM.CON ---
History of Present Illness - History of Present Illness History of Present Illness: The pt is a 72 year old woman with CAD, s/p breast cancer treatment (3 years ago , wheelchair bound (broke foot), lives at home assistance. Pt has CAD, PAD ( femoral artery stent, remote history of coronary stents). The patient was admitted to [facility] recently with non stemi, refused cath. She returned just last week with chest pain, and a cath revealed L main and RCA diseas. A cabg was advised by Dr Blanco, but patient says that she refused. Pt had recent acute kidney injury, and HTN. Pt stil smokes to a degree. Now pt has chest and abdominal pain for the entire day, woke up with it, It is worse when she leans forward and coughs. Also has stomach pain,s with normal bowel movements,. ECG shows NSR, apb,s mild non specific changed and TNI is normal. BP is high, potassium mildly elevated. Review of Systems - Review of Systems All systems: reviewed and no additional remarkable complaints except (as above.) Past Patient History - Infectious Disease Hx of Infectious Diseases: None - Tetanus Immunizations Tetanus Immunization: Unknown - Past Medical History & Family History Past Medical History?: Yes - Past Social History Smoking Status: Light Smoker < 10 Cigarettes Daily - CARDIAC Hx Congestive Heart Failure: Yes Hx Hypercholesterolemia: Yes Hx Hypertension: Yes Hx Peripheral Edema: Yes - PULMONARY Hx Bronchitis: Yes Hx Chronic Obstructive Pulmonary Disease (COPD): Yes Hx Emphysema: Yes - NEUROLOGICAL Hx Dementia: Yes Hx Transient Ischemic Attacks (TIA): Yes - HEENT Hx HEENT Problems: Yes Hx Blind: Yes (R. eye) Hx Deafness: Yes ([facility], deaf in R. ear) - RENAL Hx Chronic Kidney Disease: Yes - ENDOCRINE/METABOLIC Hx Endocrine Disorders: Yes Hx Diabetes Mellitus Type 2: Yes - HEMATOLOGICAL/ONCOLOGICAL Hx Anemia: Yes - INTEGUMENTARY Hx Dermatological Problems: No - MUSCULOSKELETAL/RHEUMATOLOGICAL Hx Arthritis: Yes Hx Fractures: Yes (Right Hip) Hx Osteoporosis: Yes - GASTROINTESTINAL Hx Gastrointestinal Disorders: Yes Hx Gastroesophageal Reflux: Yes - PSYCHIATRIC Hx Anxiety: Yes Hx Schizophrenia: Yes Hx Substance Use: No - SURGICAL HISTORY Hx Coronary Stent: Yes (x4) - ANESTHESIA Hx Anesthesia: Yes Hx Anesthesia Reactions: No Hx Malignant Hyperthermia: No Meds Allergies/Adverse Reactions: Allergies Allergy/AdvReac Type Severity Reaction Status Date / Time iodine Allergy Severe ANAPHYLAXIS Verified 11/26/17 06:28 iv dye Allergy Severe ANAPHYLAXIS Uncoded 11/06/17 07:43 - Medications Medications: Current Medications Albuterol/Ipratropium (Duoneb 3 Mg/0.5 Mg (3 Ml) Ud) 3 ml INH RQ6 [facility] Aspirin (Ecotrin) 81 mg PO DAILY [facility] Last Admin: 11/26/17 11:38 Dose: 81 mg Clonidine HCl (Catapres) 0.1 mg PO Q8H [facility] Last Admin: 11/26/17 11:38 Dose: 0.1 mg Diltiazem HCl (Cardizem Cd) 120 mg PO DAILY [facility] Last Admin: 11/26/17 11:38 Dose: 120 mg Famotidine (Pepcid) 20 mg PO DAILY [facility] Last Admin: 11/26/17 11:38 Dose: 20 mg Furosemide (Lasix) 40 mg IVP DAILY [facility] Heparin Sodium (Porcine) (Heparin) 5,000 units SC Q12 [facility] Last Admin: 11/26/17 12:20 Dose: 5,000 units Hydralazine HCl (Apresoline) 75 mg PO TID [facility] Piperacillin Sod/Tazobactam (Sod 2.25 gm/ Sodium Chloride) 100 mls @ 100 mls/ hr IVPB Q8H [facility] Metoprolol Succinate (Toprol Xl) 25 mg PO DAILY [facility] Last Admin: 11/26/17 11:38 Dose: 25 mg Ranolazine (Ranexa) 500 mg PO BID [facility] Last Admin: 11/26/17 11:38 Dose: 500 mg Fluticasone/Salmeterol (Advair Diskus 250/50) 1 puff INH RQ12 [facility] Tiotropium [place] (Spiriva) 18 mcg INH RQ24 [facility] Tiotropium [place] (Spiriva Inhalation Handihaler Device) 1 inhaler INH ONCE ONE Stop: 11/27/17 08:01 Tramadol HCl (Ultram) 50 mg PO Q8 PRN PRN Reason: breakthrough pain Last Admin: 11/26/17 12:20 Dose: 50 mg Physical Exam - Constitutional Appears: Cachectic - Head Exam Head Exam: ATRAUMATIC - Eye Exam Eye Exam: EOMI, Normal appearance - ENT Exam ENT Exam: Mucous Membranes Moist - Neck Exam Neck exam: Positive for: Normal Inspection - Respiratory Exam Respiratory Exam: Clear to Auscultation Bilateral - Cardiovascular Exam Cardiovascular Exam: REGULAR RHYTHM - GI/Abdominal Exam GI & Abdominal Exam: Normal Bowel Sounds, Tenderness - Exam External exam: Swelling (left leg) - Extremities Exam Extremities exam: Positive for: joint swelling (mild left leg) - Back Exam Back exam: NORMAL INSPECTION - Neurological Exam Neurological exam: Alert, CN II-XII Intact, Oriented x3 - Psychiatric Exam Psychiatric exam: Agitated - Skin Skin Exam: Normal Color Results - Vital Signs Recent Vital Signs: Last Vital Signs Temp 98.7 F 11/26/17 06:21 Pulse 91 H 11/26/17 11:07 Resp 18 11/26/17 11:07 BP 161/73 H 11/26/17 11:07 Pulse Ox 98 11/26/17 11:25 - Labs Result Diagrams: 11/26/17 07:53 11/26/17 07:53 Labs: Laboratory Results - last 24 hr 11/26/17 11/26/17 11/26/17 07:53 07:53 08:12 WBC 16.5 H D RBC 5.22 H Hgb 14.0 D Hct 42.6 MCV 81.5 D MCH 26.7 L MCHC 32.8 L RDW 20.3 H Plt Count 277 MPV 10.4 Neut % (Auto) 79.8 H Lymph % (Auto) 13.1 L [place] % (Auto) 3.9 Eos % (Auto) 2.5 Baso % (Auto) 0.7 Neut # (Auto) 13.2 H Lymph # (Auto) 2.2 [place] # (Auto) 0.6 Eos # (Auto) 0.4 Baso # (Auto) 0.1 PT INR Sodium 140 Potassium 5.4 H Chloride 101 Carbon Dioxide 27 Anion Gap 17 BUN 25 H Creatinine 1.1 Est GFR ( Amer) 59 Est GFR (Non-Af Amer) 49 Random Glucose 126 H Calcium 9.3 Total Bilirubin 1.3 AST 67 H D ALT 9 D Alkaline Phosphatase 63 Troponin I 0.0670 NT-Pro-B Natriuret Pep 48034 H Total Protein 7.3 Albumin 4.1 Globulin 3.3 Albumin/Globulin Ratio 1.2 11/26/17 08:21 WBC RBC Hgb Hct MCV MCH MCHC RDW Plt Count MPV Neut % (Auto) Lymph % (Auto) [place] % (Auto) Eos % (Auto) Baso % (Auto) Neut # (Auto) Lymph # (Auto) [place] # (Auto) Eos # (Auto) Baso # (Auto) PT 11.4 INR 1.0 Sodium Potassium Chloride Carbon Dioxide Anion Gap BUN Creatinine Est GFR ( Amer) Est GFR (Non-Af Amer) Random Glucose Calcium Total Bilirubin AST ALT Alkaline Phosphatase Troponin I NT-Pro-B Natriuret Pep Total Protein Albumin Globulin Albumin/Globulin Ratio - EKG Data EKG Interpreted by: Myself (as above per my note) Assessment & Plan - Assessment and Plan (Free Text) Assessment: 1. Although pt had recent stemi and severe CAD (also normal LV EF, pt's pain is positional, and non anginal. She also has abdominal discomfort with palpation that needs investigation. Continue asa, statin. beta natalee 2. HTN: no fátima or arb prescribed due to recent ETHEL. K is mildly high: low k diet is asvised, and adjust meds as needed for HTN.
[2017-11-26] MEDS ORDERED: Albuterol-Ipratrop 3 mg / 0.5 (3 ml) UD ONE ×3 (13:10→16:25)
[2017-11-26] MEDS: Albuterol-Ipratrop 3 mg / 0.5 (3 ml) UD INH SCH ×2 (13:30→19:33)
--- NOTE | 2017-11-26 14:06 | CP.PCM.CON ---
History of Present Illness - History of Present Illness History of Present Illness: 72 y/o female with multiple medical problems c/o sharp sternal cp that woke her from sleep, radiates to left shoulder with associated sob. pt sts she used a nebulizer treatment at home and sob shilpi after that. pt also c/o abdominal pain that is sharp. no vomiting or diarrhea, last bm today. Referred for ID eval of pneumonia - Medical History PMH: Anemia, Anxiety, Arthritis, Back Problems, Bronchitis, CAD, CHF, COPD, CVA , Dementia, Deep Vein Thrombosis, Emphysema, Fractures (Right Hip), HTN, Hypercholesterolemia, Hyperlipidemia, Malignancy (Breast CA left 4 yrs ago, patient in remission, last chemo was 3 years ago), Osteoporosis, Peripheral Edema, Chronic Kidney Disease, Schizophrenia, TIA Surgical History: Coronary Stent (x4) 72 year old woman with CAD, s/p breast cancer treatment (3 years ago, wheelchair bound (broke foot), lives at home assistance. Pt has CAD, PAD ( femoral artery stent, remote history of coronary stents). The patient was admitted to [facility] recently with non stemi, refused cath. She returned just last week with chest pain, and a cath revealed L main and RCA diseas. A cabg was advised by Dr Blanco, but patient says that she refused. Review of Systems - Review of Systems All systems: reviewed and no additional remarkable complaints except - Constitutional Constitutional: Anorexia - EENT Eyes: absent: As Per HPI, Blind Spots, Blurred Vision, Change in Vision, Decreased Night Vision, Diplopia, Discharge, Dry Eye, Exophthalmos, Floaters, Irritation, Itchy Eyes, Loss of Peripheral Vision, Pain, Photophobia, Requires Corrective Lenses, Sees Flashes, Spots in Vision, Tunnel Vision, Other Visual Disturbances, Loss of Vision, Other Ears: absent: As Per HPI, Decreased Hearing, Ear Discharge, Ear Pain, Tinnitus, Abnormal Hearing, Disequilibrium, Dizziness, Other Nose/Mouth/Throat: absent: As Per HPI, Epistaxis, Nasal Congestion, Nasal Discharge, Nasal Obstruction, Nasal Trauma, Nose Pain, Post Nasal Drip, Sinus Pain, Sinus Pressure, Bleeding Gums, Change in Voice, Dental Pain, Dry Mouth, Dysphagia, Halitosis, Hoarsness, Lip Swelling, Mouth Lesions, Mouth Pain, Odynophagia, Sore Throat, Throat Swelling, Tongue Swelling, Facial Pain, Neck Pain, Neck Mass, Other - Breasts Breasts: absent: As Per HPI, Change in Shape, Mass, Pain, Nipple Discharge, Nipple Inversion, Skin Changes, Swelling, Other - Cardiovascular Cardiovascular: absent: As Per HPI, Acrocyanosis, Chest Pain, Chest Pain at Rest , Chest Pain with Activity, Claudication, Diaphoresis, Dyspnea, Dyspnea on Exertion, Edema, Irregular Heart Rhythm, Pain Radiating to Arm/Neck/Jaw, Leg Edema, Leg Ulcers, Lightheadedness, Orthopnea, Palpitations, Paroxysmal Nocturnal Dyspnea, Pedal Edema, Radiating Pain, Rapid Heart Rate, Slow Heart Rate, Syncope, Other - Respiratory Respiratory: absent: As Per HPI, Cough, Dyspnea, Hemoptysis, Dyspnea on Exertion , Wheezing, Snoring, Stridor, Pain on Inspiration, Chest Congestion, Excessive Mucous Production, Change in Mucous Color, Pain with Coughing, Other - Gastrointestinal Gastrointestinal: As Per HPI - Genitourinary Genitourinary: absent: As Per HPI, Change in Urinary Stream, Difficulty Urinating, Dysuria, Flank Pain, Hematuria, Pyuria, Nocturia, Urinary Incontinence, Urinary Frequency, Urinary Hesitance, Urinary Urgency, Voiding Freq/Small Amts, Freq UTI, Hx Renal/Bladder Calculi, Hx /Renal Surgery, Bladder Distension, Other - Reproductive: Female Reproductive:Female: absent: As Per HPI, Amenorrhea, Amenorrhea/ Control, Currently Menstual, Cycle <21 Days, Cycle >35 Days, Cycle Variable, Menses 1-7 Days, Menses >/= 8 Days, Menses Variable, Cycle > 4 Weeks Between, No Menses for 6 Months, Heavy Menses, Light Menses, Normal Menses, Spotting Between Cycles , S/P Hysterectomy, Menopausal, Post Menopausal, Premenarche, Abnormal Vaginal Bleeding, Dysmenorrhea, Dyspareunia, Genital Lesions, Genital Pruritis, Pelvic Pain, Prolapse Symptoms, Sexual Dysfunction, Vaginal Discharge, Vaginal Dryness , Vaginal Odor, Vaginal Pruritis, Other - Menstruation Menstruation: absent: As Per HPI, Amenorrhea, Amenorrhea/ Control, Currently Menstual, Cycle <21 Days, Cycle >35 Days, Cycle Variable, Menses 1-7 Days, Menses >/= 8 Days, Menses Variable, Cycle > 4 Weeks Between, No Menses for 6 Months, Heavy Menses, Light Menses, Normal Menses, Spotting Between Cycles , S/P Hysterectomy, Menopausal, Post Menopausal, Premenarche, Abnormal Vaginal Bleeding, Dysmenorrhea, Other - Musculoskeletal Musculoskeletal: As Per HPI - Integumentary Integumentary: absent: As Per HPI, Acne, Alopecia, Bleeding Lesions, Change in Hair, Change in Nails, Change in Pigmentation, Changing Lesions, Dry Skin, Erythema, Furuncle, Hirsutism, Lesions, New Lesions, Non-Healing Lesions, Photosensitivity, Pruritus, Rash, Skin Pain, Skin Ulcer, Sores, Striae, Swelling , Unusual Bruising, Wounds, Jaundice, Other - Neurological Neurological: absent: As Per HPI, Abnormal Gait, Abnormal Hearing, Abnormal Movements, Abnormal Speech, Behavioral Changes, Burning Sensations, Confusion, Convulsions, Disequilibrium, Dizziness, Numbness, Focal Weakness, Frequent Falls , Headaches, Lack of Coordination, Loss of Vision, Memory Loss, Paresthesias, Radicular Pain, Restless Legs, Sensory Deficit, Syncope, Tingling, Tremor, Vertigo, Weakness, Other Visual Disturbances, Other - Psychiatric Psychiatric: As Per HPI - Endocrine Endocrine: absent: As Per HPI, Change in Body Appearance, Change in Libido, Cold Intolorance, Deepening of Voice, Excessive Sweating, Fatigue, Flushing, Heat Intolorance, Increase in Ring/Shoe/Hat Size, Palpitations, Polydipsia, Polyphagia, Polyuria, Other - Hematologic/Lymphatic Hematologic: absent: As Per HPI, Easy Bleeding, Easy Bruising, Lymphadenopathy, Other Past Patient History - Infectious Disease Hx of Infectious Diseases: None - Tetanus Immunizations Tetanus Immunization: Unknown - Past Medical History & Family History Past Medical History?: Yes - Past Social History Smoking Status: Light Smoker < 10 Cigarettes Daily - CARDIAC Hx Congestive Heart Failure: Yes Hx Hypercholesterolemia: Yes Hx Hypertension: Yes Hx Peripheral Edema: Yes - PULMONARY Hx Bronchitis: Yes Hx Chronic Obstructive Pulmonary Disease (COPD): Yes Hx Emphysema: Yes - NEUROLOGICAL Hx Dementia: Yes Hx Transient Ischemic Attacks (TIA): Yes - HEENT Hx HEENT Problems: Yes 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) - RENAL Hx Chronic Kidney Disease: Yes - ENDOCRINE/METABOLIC Hx Endocrine Disorders: Yes Hx Diabetes Mellitus Type 2: Yes - HEMATOLOGICAL/ONCOLOGICAL Hx Anemia: Yes - INTEGUMENTARY Hx Dermatological Problems: No - MUSCULOSKELETAL/RHEUMATOLOGICAL Hx Arthritis: Yes Hx Fractures: Yes (Right Hip) Hx Osteoporosis: Yes - GASTROINTESTINAL Hx Gastrointestinal Disorders: Yes Hx Gastroesophageal Reflux: Yes - PSYCHIATRIC Hx Anxiety: Yes Hx Schizophrenia: Yes Hx Substance Use: No - SURGICAL HISTORY Hx Coronary Stent: Yes (x4) - ANESTHESIA Hx Anesthesia: Yes Hx Anesthesia Reactions: No Hx Malignant Hyperthermia: No Meds Allergies/Adverse Reactions: Allergies Allergy/AdvReac Type Severity Reaction Status Date / Time iodine Allergy Severe ANAPHYLAXIS Verified 11/26/17 06:28 iv dye Allergy Severe ANAPHYLAXIS Uncoded 11/06/17 07:43 - Medications Medications: Current Medications Albuterol/Ipratropium (Duoneb 3 Mg/0.5 Mg (3 Ml) Ud) 3 ml INH RQ6 [facility] Aspirin (Ecotrin) 81 mg PO DAILY [facility] Last Admin: 11/26/17 11:38 Dose: 81 mg Clonidine HCl (Catapres) 0.1 mg PO Q8H [facility] Last Admin: 11/26/17 11:38 Dose: 0.1 mg Diltiazem HCl (Cardizem Cd) 120 mg PO DAILY [facility] Last Admin: 11/26/17 11:38 Dose: 120 mg Famotidine (Pepcid) 20 mg PO DAILY [facility] Last Admin: 11/26/17 11:38 Dose: 20 mg Furosemide (Lasix) 40 mg IVP DAILY [facility] Heparin Sodium (Porcine) (Heparin) 5,000 units SC Q12 [facility] Last Admin: 11/26/17 12:20 Dose: 5,000 units Hydralazine HCl (Apresoline) 75 mg PO TID [facility] Piperacillin Sod/Tazobactam (Sod 2.25 gm/ Sodium Chloride) 100 mls @ 100 mls/ hr IVPB Q8H [facility] Metoprolol Succinate (Toprol Xl) 25 mg PO DAILY [facility] Last Admin: 11/26/17 11:38 Dose: 25 mg Ranolazine (Ranexa) 500 mg PO BID [facility] Last Admin: 11/26/17 11:38 Dose: 500 mg Rosuvastatin Calcium (Crestor) 5 mg PO HS [facility] Fluticasone/Salmeterol (Advair Diskus 250/50) 1 puff INH RQ12 [facility] Tiotropium [place] (Spiriva) 18 mcg INH RQ24 [facility] Tiotropium [place] (Spiriva Inhalation Handihaler Device) 1 inhaler INH ONCE ONE Stop: 11/27/17 08:01 Tramadol HCl (Ultram) 50 mg PO Q8 PRN PRN Reason: breakthrough pain Last Admin: 11/26/17 12:20 Dose: 50 mg Physical Exam - Constitutional Appears: Non-toxic, Cachectic, Chronically Ill - Head Exam Head Exam: NORMOCEPHALIC - Eye Exam Eye Exam: PERRL. absent: Scleral icterus - ENT Exam ENT Exam: Mucous Membranes Dry, Normal External Ear Exam - Neck Exam Neck exam: Negative for: Lymphadenopathy - Respiratory Exam Respiratory Exam: Decreased Breath Sounds, Prolonged Expiratory Phase, Rales, Rhonchi - Cardiovascular Exam Cardiovascular Exam: REGULAR RHYTHM, +S1, +S2 - GI/Abdominal Exam GI & Abdominal Exam: Diminished Bowel Sounds, Soft. absent: Tenderness - Rectal Exam Rectal Exam: Deferred - Exam Exam: NORMAL INSPECTION - Extremities Exam Extremities exam: Positive for: tenderness, pedal pulses present. Negative for : calf tenderness, pedal edema - Back Exam Back exam: absent: CVA tenderness (L), CVA tenderness (R), paraspinal tenderness - Neurological Exam Neurological exam: Alert, CN II-XII Intact, Oriented x3, Reflexes Normal - Psychiatric Exam Psychiatric exam: Depressed - Skin Skin Exam: Dry, Intact Results - Vital Signs Recent Vital Signs: Last Vital Signs Temp 98.7 F 11/26/17 06:21 Pulse 91 H 11/26/17 11:07 Resp 18 11/26/17 11:07 BP 161/73 H 11/26/17 11:07 Pulse Ox 98 11/26/17 11:25 - Labs Result Diagrams: 11/26/17 07:53 11/26/17 07:53 Labs: Laboratory Results - last 24 hr 11/26/17 11/26/17 11/26/17 07:53 07:53 08:12 WBC 16.5 H D RBC 5.22 H Hgb 14.0 D Hct 42.6 MCV 81.5 D MCH 26.7 L MCHC 32.8 L RDW 20.3 H Plt Count 277 MPV 10.4 Neut % (Auto) 79.8 H Lymph % (Auto) 13.1 L [place] % (Auto) 3.9 Eos % (Auto) 2.5 Baso % (Auto) 0.7 Neut # (Auto) 13.2 H Lymph # (Auto) 2.2 [place] # (Auto) 0.6 Eos # (Auto) 0.4 Baso # (Auto) 0.1 PT INR Sodium 140 Potassium 5.4 H Chloride 101 Carbon Dioxide 27 Anion Gap 17 BUN 25 H Creatinine 1.1 Est GFR ( Amer) 59 Est GFR (Non-Af Amer) 49 Random Glucose 126 H Calcium 9.3 Total Bilirubin 1.3 AST 67 H D ALT 9 D Alkaline Phosphatase 63 Troponin I 0.0670 NT-Pro-B Natriuret Pep 65921 H Total Protein 7.3 Albumin 4.1 Globulin 3.3 Albumin/Globulin Ratio 1.2 11/26/17 11/26/17 08:21 13:30 WBC RBC Hgb Hct MCV MCH MCHC RDW Plt Count MPV Neut % (Auto) Lymph % (Auto) [place] % (Auto) Eos % (Auto) Baso % (Auto) Neut # (Auto) Lymph # (Auto) [place] # (Auto) Eos # (Auto) Baso # (Auto) PT 11.4 INR 1.0 Sodium Potassium Chloride Carbon Dioxide Anion Gap BUN Creatinine Est GFR ( Amer) Est GFR (Non-Af Amer) Random Glucose Calcium Total Bilirubin AST ALT Alkaline Phosphatase Troponin I 0.0840 NT-Pro-B Natriuret Pep Total Protein Albumin Globulin Albumin/Globulin Ratio Assessment & Plan (1) CHF exacerbation Status: Acute (2) Pneumonia Status: Acute (3) ACS (acute coronary syndrome) Status: Acute (4) Abdominal pain Status: Acute - Assessment and Plan (Free Text) Assessment: PMH: Anemia, Anxiety, Arthritis, Back Problems, Bronchitis, CAD, CHF, COPD, CVA , Dementia, Deep Vein Thrombosis, Emphysema, Fractures (Right Hip), HTN, Hypercholesterolemia, Hyperlipidemia, Malignancy (Breast CA left 4 yrs ago, patient in remission, last chemo was 3 years ago), Osteoporosis, Peripheral Edema, Chronic Kidney Disease, Schizophrenia, TIA rx for pneumonia in progress await cultures
[2017-11-26] MEDS ORDERED: Vancomycin 1 gm/NS 200 ml 1 GM/200 ML BAG IVPB SCH (14:15)
[2017-11-26] MEDS ORDERED: Albuterol-Ipratrop 3 mg / 0.5 (3 ml) UD INH STA ×2 (15:35→17:37)
[2017-11-26] MEDS: Nitroglycerin 50mg in D5W 50 MG/250 ML BOTTLE IV PRN ×4 (16:25→17:31)
--- NOTE | 2017-11-26 17:42 | CP.PCM.CON ---
History of Present Illness - History of Present Illness History of Present Illness: Chief complaint: Shortness of breath HPI: 71-year-old female with a history of hypertension, diabetes, deep venous thrombosis, COPD, left breast cancer, status post chemotherapy, CVA with right hemiparesis, history of CO in the past, came to the emergency room with increasing shortness of breath. Patient recently had angiogram of the coronaries, reported to have a multivessel disease, suggested to have a surgical intervention According to the notes, patient will need CABG. Patient came to the ED with the increasing chest discomfort, radiating to the left shoulder and associated with the shortness of breath. In the emergency room patient was evaluated, she was initially admitted to the telemetry, certainly her blood pressure started to go high, and she become more short of breath, patient was immediately placed on BiPAP, Lasix earlier was given, patient made some urine output, she is slightly feeling better at this time with nitro drip and morphine iv. Patient continues to have increasing SOB, shortness of breath, chest discomfort , and also, chest pain Patient is alert awake otherwise Past medical history: Patient had a history of CAD, heart disease, congestive heart failure, COPD, CVA , deep venous thrombosis, hip fracture, hypertension hyperlipidemia and cancer of the left breast. Surgical history: Stents in the past Left breast surgical intervention for cancer breast Allergies: No known drug allergies except iodine Past surgical history: Used to be a smoker, active smoker. Family history noncontributory Review of systems: Currently patient is comfortable sitting up, on BiPAP. Comparing of chest discomfort. Abdominal discomfort noted. Leg swelling also noted Patient recently had angiogram 2 weeks ago for the coronaries Vital signs reviewed mild neck vein distention noted Chest bilateral diffuse rhonchi and wheezing noted CVS regular heart sound, no murmur noted Abdomen soft, nontender. Bilateral pedal edema noted [employer] alert awake oriented -3, Patient's labs reviewed Elevated proBNP noted. Chest x-ray congestive heart failure pattern noted, and there are bilateral pleural effusions small to moderate EKG nonspecific. Nonspecific T-wave changes noted Assessment and recommendation: Patient is a 71-year-old female with history of multiple medical problems including hypertension CAD multivessel disease. Admitted now with the heart failure, and associated with angina pain We'll continue the nitroglycerin drip. Patient will need BiPAP and oxygenation. Diuretics. Antiplatelet use. Patient also needs anticoagulation, cardiology evaluation is on board. Overall prognosis is guarded. There is a suspected aspiration pneumonia, hospital-acquired pneumonia on antibiotic currently. We will maintain negative balance and will follow-up the patient Past Patient History - Infectious Disease Hx of Infectious Diseases: None - Tetanus Immunizations Tetanus Immunization: Unknown - Past Medical History & Family History Past Medical History?: Yes - Past Social History Smoking Status: Light Smoker < 10 Cigarettes Daily - CARDIAC Hx Congestive Heart Failure: Yes Hx Hypercholesterolemia: Yes Hx Hypertension: Yes Hx Peripheral Edema: Yes - PULMONARY Hx Bronchitis: Yes Hx Chronic Obstructive Pulmonary Disease (COPD): Yes Hx Emphysema: Yes - NEUROLOGICAL Hx Dementia: Yes Hx Transient Ischemic Attacks (TIA): Yes - HEENT Hx HEENT Problems: Yes 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) - RENAL Hx Chronic Kidney Disease: Yes - ENDOCRINE/METABOLIC Hx Endocrine Disorders: Yes Hx Diabetes Mellitus Type 2: Yes - HEMATOLOGICAL/ONCOLOGICAL Hx Anemia: Yes - INTEGUMENTARY Hx Dermatological Problems: No - MUSCULOSKELETAL/RHEUMATOLOGICAL Hx Arthritis: Yes Hx Fractures: Yes (Right Hip) Hx Osteoporosis: Yes - GASTROINTESTINAL Hx Gastrointestinal Disorders: Yes Hx Gastroesophageal Reflux: Yes - PSYCHIATRIC Hx Anxiety: Yes Hx Schizophrenia: Yes Hx Substance Use: No - SURGICAL HISTORY Hx Coronary Stent: Yes (x4) - ANESTHESIA Hx Anesthesia: Yes Hx Anesthesia Reactions: No Hx Malignant Hyperthermia: No Meds Allergies/Adverse Reactions: Allergies Allergy/AdvReac Type Severity Reaction Status Date / Time iodine Allergy Severe ANAPHYLAXIS Verified 11/26/17 06:28 iv dye Allergy Severe ANAPHYLAXIS Uncoded 11/06/17 07:43 - Medications Medications: Current Medications Albuterol/Ipratropium (Duoneb 3 Mg/0.5 Mg (3 Ml) Ud) 3 ml INH RQ6 [facility] Last Admin: 11/26/17 13:30 Dose: 3 ml Aspirin (Ecotrin) 81 mg PO DAILY [facility] Last Admin: 11/26/17 11:38 Dose: 81 mg Clonidine HCl (Catapres) 0.1 mg PO Q8H [facility] Last Admin: 11/26/17 11:38 Dose: 0.1 mg Diltiazem HCl (Cardizem Cd) 120 mg PO DAILY [facility] Last Admin: 11/26/17 11:38 Dose: 120 mg Famotidine (Pepcid) 20 mg PO DAILY [facility] Last Admin: 11/26/17 11:38 Dose: 20 mg Furosemide (Lasix) 40 mg IVP DAILY [facility] Last Admin: 11/26/17 14:47 Dose: 40 mg Heparin Sodium (Porcine) (Heparin) 5,000 units SC Q12 [facility] Last Admin: 11/26/17 12:20 Dose: 5,000 units Hydralazine HCl (Apresoline) 75 mg PO TID [facility] Last Admin: 11/26/17 14:47 Dose: 75 mg Piperacillin Sod/Tazobactam (Sod 2.25 gm/ Sodium Chloride) 100 mls @ 100 mls/ hr IVPB Q8H [facility] Vancomycin/Sodium Chloride (Vancomycin 1 Gm/Ns 200 Ml) 1 gm in 200 mls @ 166.7 mls/hr IVPB Q24H [facility] Stop: 12/01/17 14:16 Nitroglycerin/Dextrose (Nitroglycerin 50 Mg/250 Ml D5w) 50 mg in 250 mls @ 0.9 mls/hr IV Q24H PRN; Protocol; 3 MCG/MIN PRN Reason: PROTOCOL Last Admin: 11/26/17 17:31 Dose: 3 mcg/min, 0.9 mls/hr Metoprolol Succinate (Toprol Xl) 25 mg PO DAILY [facility] Last Admin: 11/26/17 11:38 Dose: 25 mg Ranolazine (Ranexa) 500 mg PO BID [facility] Last Admin: 11/26/17 11:38 Dose: 500 mg Rosuvastatin Calcium (Crestor) 5 mg PO HS [facility] Fluticasone/Salmeterol (Advair Diskus 250/50) 1 puff INH RQ12 [facility] Tiotropium [place] (Spiriva) 18 mcg INH RQ24 [facility] Tiotropium [place] (Spiriva Inhalation Handihaler Device) 1 inhaler INH ONCE ONE Stop: 11/27/17 08:01 Tramadol HCl (Ultram) 50 mg PO Q8 PRN PRN Reason: breakthrough pain Last Admin: 11/26/17 12:20 Dose: 50 mg Results - Vital Signs Recent Vital Signs: Last Vital Signs Temp 98.7 F 11/26/17 06:21 Pulse 74 11/26/17 17:33 Resp 18 11/26/17 17:34 BP 118/53 L 11/26/17 17:33 Pulse Ox 98 11/26/17 17:37 - Labs Result Diagrams: 11/26/17 07:53 11/26/17 07:53 Labs: Laboratory Results - last 24 hr 11/26/17 11/26/17 11/26/17 07:53 07:53 08:12 WBC 16.5 H D RBC 5.22 H Hgb 14.0 D Hct 42.6 MCV 81.5 D MCH 26.7 L MCHC 32.8 L RDW 20.3 H Plt Count 277 MPV 10.4 Neut % (Auto) 79.8 H Lymph % (Auto) 13.1 L [place] % (Auto) 3.9 Eos % (Auto) 2.5 Baso % (Auto) 0.7 Neut # (Auto) 13.2 H Lymph # (Auto) 2.2 [place] # (Auto) 0.6 Eos # (Auto) 0.4 Baso # (Auto) 0.1 PT INR D-Dimer, Quantitative Sodium 140 Potassium 5.4 H Chloride 101 Carbon Dioxide 27 Anion Gap 17 BUN 25 H Creatinine 1.1 Est GFR ( Amer) 59 Est GFR (Non-Af Amer) 49 Random Glucose 126 H Calcium 9.3 Total Bilirubin 1.3 AST 67 H D ALT 9 D Alkaline Phosphatase 63 Troponin I 0.0670 NT-Pro-B Natriuret Pep 53926 H Total Protein 7.3 Albumin 4.1 Globulin 3.3 Albumin/Globulin Ratio 1.2 11/26/17 11/26/17 11/26/17 08:21 13:30 16:53 WBC RBC Hgb Hct MCV MCH MCHC RDW Plt Count MPV Neut % (Auto) Lymph % (Auto) [place] % (Auto) Eos % (Auto) Baso % (Auto) Neut # (Auto) Lymph # (Auto) [place] # (Auto) Eos # (Auto) Baso # (Auto) PT 11.4 INR 1.0 D-Dimer, Quantitative 1211 H Sodium Potassium Chloride Carbon Dioxide Anion Gap BUN Creatinine Est GFR ( Amer) Est GFR (Non-Af Amer) Random Glucose Calcium Total Bilirubin AST ALT Alkaline Phosphatase Troponin I 0.0840 NT-Pro-B Natriuret Pep Total Protein Albumin Globulin Albumin/Globulin Ratio
[2017-11-26 19:36] LABS: SQUAMOUS EPITHIAL 4 /hpf (0-5); URINE BACTERIA RARE (<OCC); URINE BILIRUBIN NEGATIVE (NEGATIVE); URINE BLOOD NEGATIVE (NEGATIVE); URINE CLARITY Clear (Clear); URINE COLOR Yellow (YELLOW); URINE GLUCOSE (UA) NORMAL (Normal); URINE LEUKOCYTE ESTERASE NEG Leu/uL (Negative); URINE NITRATE NEGATIVE (NEGATIVE); URINE PROTEIN 2+ mg/dL (NEGATIVE); URINE UROBILINOGEN NORMAL mg/dL (0.2-1.0)
--- NOTE | 2017-11-26 20:49 | HP ---
HISTORY OF PRESENT ILLNESS: I know Kathy very well from multiple house calls, multiple subacute rehabs, and multiple hospital stays to recently just in [facility]. where she had a cardiac cath. She is a 72-year-old female who woke up in the middle of the night with a chest pain on the left side, abdominal pain and called the 911 and brought to the emergency room. She had shortness of breath. Radiates into left shoulder. She has a nebulizer treatment. She did not feel well and she came here. PAST MEDICAL HISTORY: She has a very big past medical history of hypertension, anemia, anxiety, arthritis, back problems, CAD, CHF, COPD, CVA, dementia, deep vein thrombosis, emphysema, fracture of the right hip, hip surgery, hypercholesteremia, hyperlipidemia, malignancy of the breast. She was in remission. She had chemo three years ago. Osteoporosis, peripheral edema, chronic kidney disease, schizophrenia, TIA, coronary artery stents x4, angioplasty, 2 left arteriograms, aortogram, multiple carotid stents, ultrasounds of the heart, excision of nail, fluoroscopies, multiple physical therapies, drug-eluting stents of peripheral vessels, vascular stents, and transfusion in the past. SOCIAL HISTORY: She still smokes, still uses alcohol. No substance abuse. FAMILY HISTORY: Hypertension in the family. She has no more subacute rehab days left, but she was sent home with physical therapy. REVIEW OF SYSTEMS: No fever, chills. No vision changes. No hearing changes. No chills. No sore throat. There is chest pain and pressure. There is shortness of breath, cough. There is abdominal pain. No nausea, vomiting, constipation, or diarrhea. There is a mild sacral early ulcer. Legs are a bit swollen. She is weak, a little anxious, not sweating, no tremors. PHYSICAL EXAMINATION: VITAL SIGNS: She has 98.7 temperature, 95 pulse, 18 respiratory rate, 157/69 blood pressure, and 98% O2 saturation. HEENT: Head is atraumatic and normocephalic. GENERAL: She is chronically ill looking. SKIN: Warm and dry. She has a grade 1 on the sacrum. Extraocular muscles are intact. Pupils are equal and reactive to light and accommodation. Throat is moist. NECK: Supple. HEART: Regular rate, tachy. LUNGS: Decreased breath sounds bilaterally. Mild congestion. ABDOMEN: Soft and nontender. Positive bowel sounds. EXTREMITIES: +2/4 pitting edema bilateral lower extremities. NEUROLOGIC: She is alert and oriented at this time x3. She is very witted, which is good for her. Cranial nerves II through XII grossly intact. THYROID: Midline. No palpable appreciable lymphadenopathy. LABORATORY DATA: She has 16.5 white count, 14 hemoglobin, 46.6 hematocrit with a 277 platelets. sodium 140, potassium is 5.4, given Kayexalate, BUN 25, creatinine 1.1, GFR is 49, sugar is 126, calcium 9.3, total bilirubin is 1.3, AST is 67, ALT is 9, alkaline phosphatase 53. Troponin I is 0.06. BNP is very high at 45,600, she will be on Lasix IV. Total protein 7.3. INR is 1.0. She did have a chest x-ray. I was told by the ER doctor that there were pneumonia. She was started on IV antibiotics. She has biapical pleural thickening and changes, [id number] venous congestion. She is on IV Lasix. Prominent bibasilar airspace opacities, [id number] bilateral pleural effusions, right paratracheal airspace opacity, enlarged ectatic aorta, cardiomegaly. She is on IV Zosyn, IV Lasix, regular medication, oxygen, nebulizer treatment. I called in Pulmonary, Cardiology. I called in Surgery to look at the sacral area. She had physical therapy also. CHF, possible pneumonia, weak chest pain. John Brown DO MTDJeaneth
[2017-11-26] MEDS: Piperacill/Tazo 2.25gm in Dex 2.25 GM/50 ML BAG IVPB SCH (22:52)
[2017-11-27] MEDS: Albuterol-Ipratrop 3 mg / 0.5 (3 ml) UD INH SCH ×4 (01:10→20:30)
[2017-11-27] MEDS: Piperacill/Tazo 2.25gm in Dex 2.25 GM/50 ML BAG IVPB SCH (06:19)
[2017-11-27 06:40] LABS: MEAN CELL VOLUME 80.7 fL (81.0-99.0); MEAN CORPUSCULAR HEMOGLOBIN 26.1 pg (27.0-31.0); MEAN CORPUSCULAR HGB CONC 32.4 g/dL (33.0-37.0); MEAN PLATELET VOLUME 9.7 fL (7.2-11.7); RBC 4.34 Mil/uL (3.80-5.20); RED CELL DISTRIBUTION WIDTH 20.4 % (11.5-14.5); WHITE BLOOD COUNT 12.1 K/uL (4.8-10.8)
[2017-11-27 06:50] LABS: ALB/GLOB RATIO 1.2 (1.0-2.1); ALBUMIN 2.8 g/dL (3.5-5.0); CALCIUM 7.9 mg/dl (8.6-10.4)
[2017-11-27 06:50] LABS: HEMOGLOBIN 11.3 g/dL (11.0-16.0)
--- NOTE | 2017-11-27 07:41 | CP.PCM.PN ---
Subjective - Date & Time of Evaluation Date of Evaluation: 11/27/17 Time of Evaluation: 07:10 - Subjective Subjective: General Surgery Pt S&E, No issues overnight, did not want to wear BIPAP machine. Says her back is feeling better. Objective - Vital Signs/Intake and Output Vital Signs (last 24 hours): Temp Pulse Resp BP Pulse Ox 97.8 F 83 18 149/74 96 11/27/17 04:00 11/27/17 06:00 11/27/17 06:00 11/27/17 06:00 11/27/17 06:00 - Medications Medications: Current Medications Albuterol/Ipratropium (Duoneb 3 Mg/0.5 Mg (3 Ml) Ud) 3 ml INH RQ6 [facility] Last Admin: 11/27/17 07:00 Dose: 3 ml Aspirin (Ecotrin) 81 mg PO DAILY [facility] Last Admin: 11/26/17 11:38 Dose: 81 mg Clonidine HCl (Catapres) 0.1 mg PO Q8H [facility] Last Admin: 11/27/17 03:12 Dose: 0.1 mg Diltiazem HCl (Cardizem Cd) 120 mg PO DAILY [facility] Last Admin: 11/26/17 11:38 Dose: 120 mg Famotidine (Pepcid) 20 mg PO DAILY [facility] Last Admin: 11/26/17 11:38 Dose: 20 mg Furosemide (Lasix) 40 mg IVP DAILY [facility] Last Admin: 11/26/17 14:47 Dose: 40 mg Heparin Sodium (Porcine) (Heparin) 5,000 units SC Q12 [facility] Last Admin: 11/26/17 22:44 Dose: 5,000 units Hydralazine HCl (Apresoline) 25 mg PO TID [facility] Nitroglycerin/Dextrose (Nitroglycerin 50 Mg/250 Ml D5w) 50 mg in 250 mls @ 0.9 mls/hr IV Q24H PRN; Protocol; 3 MCG/MIN PRN Reason: PROTOCOL Last Admin: 11/26/17 17:31 Dose: 3 mcg/min, 0.9 mls/hr Vancomycin/Sodium Chloride (Vancomycin 1 Gm/Ns 200 Ml) 1 gm in 200 mls @ 166.7 mls/hr IVPB Q24H [facility] Stop: 12/02/17 14:01 Piperacillin Sod/Tazobactam Sod (Zosyn 2.25 Gm Iv Premix) 2.25 gm in 50 mls @ 100 mls/hr IVPB Q8H [facility] Last Admin: 11/27/17 06:19 Dose: 100 mls/hr Metoprolol Succinate (Toprol Xl) 25 mg PO DAILY [facility] Last Admin: 11/26/17 11:38 Dose: 25 mg Pantoprazole Sodium (Protonix Inj) 40 mg IVP DAILY [facility] Ranolazine (Ranexa) 500 mg PO BID [facility] Last Admin: 11/26/17 19:59 Dose: 500 mg Rosuvastatin Calcium (Crestor) 5 mg PO HS [facility] Last Admin: 11/26/17 22:43 Dose: 5 mg Fluticasone/Salmeterol (Advair Diskus 250/50) 1 puff INH RQ12 [facility] Tiotropium [place] (Spiriva) 18 mcg INH RQ24 [facility] Tiotropium [place] (Spiriva Inhalation Handihaler Device) 1 inhaler INH ONCE ONE Stop: 11/27/17 08:01 Tramadol HCl (Ultram) 50 mg PO Q8 PRN PRN Reason: breakthrough pain Last Admin: 11/27/17 00:17 Dose: 50 mg - Labs Labs: 11/27/17 06:30 11/27/17 06:31 PT 11.4 SECONDS (9.7-12.2) 11/26/17 08:21 INR 1.0 11/26/17 08:21 - Constitutional Appears: Non-toxic, No Acute Distress - Head Exam Head Exam: ATRAUMATIC, NORMOCEPHALIC - Eye Exam Eye Exam: EOMI. absent: Scleral icterus - Respiratory Exam Respiratory Exam: NORMAL BREATHING PATTERN (with nasal O2). absent: Respiratory Distress - GI/Abdominal Exam GI & Abdominal Exam: Soft. absent: Distended, Tenderness - Extremities Exam Extremities Exam: Normal Capillary Refill. absent: Calf Tenderness - Back Exam Back Exam: absent: tenderness Additional comments: mild erythema over sacrum - Neurological Exam Neurological Exam: Alert, Awake - Skin Skin Exam: Dry, Warm Assessment and Plan - Assessment and Plan (Free Text) Assessment: 72F with sacral erythema Plan: Local wound care/cushioning sacrum Air/off loading mattress Turn pt Q2H Pain control PRN No surgical intervention required at this time. Reconsult as needed. D/W Dr. Davian Harris PGY4
--- NOTE | 2017-11-27 09:23 | CP.PCM.PN ---
Subjective - Date & Time of Evaluation Date of Evaluation: 11/27/17 Time of Evaluation: 09:19 - Subjective Subjective: Pt feels better. Poor IV access. Pt desaturated, with High BP. I ordered IV nitro, IV morphine, pt feels better. CXR impression was glaucomatous disease, but there was also moderate CHF, A review of last echo performed 05/2017 demonstrates normal LV EF, type I diastolic dysfunction and severe pulmonary HTN. Objective - Vital Signs/Intake and Output Vital Signs (last 24 hours): Temp Pulse Resp BP Pulse Ox 97.8 F 83 18 149/74 96 11/27/17 04:00 11/27/17 06:00 11/27/17 06:00 11/27/17 06:00 11/27/17 06:00 Intake and Output: 11/27/17 11/27/17 06:59 18:59 Intake Total 179 Output Total 350 Balance -171 - Medications Medications: Current Medications Albuterol/Ipratropium (Duoneb 3 Mg/0.5 Mg (3 Ml) Ud) 3 ml INH RQ6 [facility] Last Admin: 11/27/17 07:00 Dose: 3 ml Aspirin (Ecotrin) 81 mg PO DAILY [facility] Last Admin: 11/26/17 11:38 Dose: 81 mg Clonidine HCl (Catapres) 0.1 mg PO Q8H [facility] Last Admin: 11/27/17 03:12 Dose: 0.1 mg Diltiazem HCl (Cardizem Cd) 120 mg PO DAILY [facility] Last Admin: 11/26/17 11:38 Dose: 120 mg Famotidine (Pepcid) 20 mg PO DAILY [facility] Last Admin: 11/26/17 11:38 Dose: 20 mg Furosemide (Lasix) 40 mg IVP DAILY [facility] Last Admin: 11/26/17 14:47 Dose: 40 mg Heparin Sodium (Porcine) (Heparin) 5,000 units SC Q12 [facility] Last Admin: 11/26/17 22:44 Dose: 5,000 units Hydralazine HCl (Apresoline) 25 mg PO TID [facility] Nitroglycerin/Dextrose (Nitroglycerin 50 Mg/250 Ml D5w) 50 mg in 250 mls @ 0.9 mls/hr IV Q24H PRN; Protocol; 3 MCG/MIN PRN Reason: PROTOCOL Last Admin: 11/26/17 17:31 Dose: 3 mcg/min, 0.9 mls/hr Vancomycin/Sodium Chloride (Vancomycin 1 Gm/Ns 200 Ml) 1 gm in 200 mls @ 166.7 mls/hr IVPB Q24H [facility] Stop: 12/02/17 14:01 Piperacillin Sod/Tazobactam Sod (Zosyn 2.25 Gm Iv Premix) 2.25 gm in 50 mls @ 100 mls/hr IVPB Q8H [facility] Last Admin: 11/27/17 06:19 Dose: 100 mls/hr Metoprolol Succinate (Toprol Xl) 25 mg PO DAILY [facility] Last Admin: 11/26/17 11:38 Dose: 25 mg Pantoprazole Sodium (Protonix Inj) 40 mg IVP DAILY [facility] Ranolazine (Ranexa) 500 mg PO BID [facility] Last Admin: 11/26/17 19:59 Dose: 500 mg Rosuvastatin Calcium (Crestor) 5 mg PO HS [facility] Last Admin: 11/26/17 22:43 Dose: 5 mg Fluticasone/Salmeterol (Advair Diskus 250/50) 1 puff INH RQ12 [facility] Tiotropium [place] (Spiriva) 18 mcg INH RQ24 [facility] Tramadol HCl (Ultram) 50 mg PO Q8 PRN PRN Reason: breakthrough pain Last Admin: 11/27/17 00:17 Dose: 50 mg - Labs Labs: 11/27/17 06:30 11/27/17 06:31 PT 11.4 SECONDS (9.7-12.2) 11/26/17 08:21 INR 1.0 11/26/17 08:21 - Constitutional Appears: Cachectic, Chronically Ill - Eye Exam Eye Exam: EOMI Pupil Exam: NORMAL ACCOMODATION - ENT Exam ENT Exam: Mucous Membranes Dry - Respiratory Exam Respiratory Exam: Decreased Breath Sounds - Cardiovascular Exam Cardiovascular Exam: REGULAR RHYTHM - GI/Abdominal Exam GI & Abdominal Exam: Normal Bowel Sounds - Extremities Exam Extremities Exam: Normal Inspection - Back Exam Back Exam: NORMAL INSPECTION - Psychiatric Exam Psychiatric exam: Normal Mood - Skin Skin Exam: Dry Assessment and Plan - Assessment and Plan (Free Text) Assessment: 1. CHF: pt's last echo was performed befor her last stemi and was not repeated. Repeat echo. Control BP. diuretics. D/C IV nitro. advance BP meds. 2. Severe pulmonary HTn from COPD. 3. CAD: L main disease: pt has refused CABG> TNI negative. statin asa.
[2017-11-27] MEDS: diltiaZEM 120 mg/24 Hours CD Cap PO SCH (09:27)
[2017-11-27] MEDS: Metoprolol Succinate 25 mg XL Tab PO SCH (09:29)
[2017-11-27] MEDS: Ranolazine 500 mg Extended Release Tablets PO SCH ×2 (09:29→18:31)
--- NOTE | 2017-11-27 11:19 | CP.CCUPN ---
CCU Subjective - Physician Review Subjective (Free Text): 11/27/17 11:18 Patient seen and examined at bedside this A.M. Patient no longer needs ICU management. Patient is cleared to be transferred to Telemetry. Critical Care Time Spent (in minutes): 40 CCU Objective - Vital Signs / Intake & Output Intake and Output (Last 8hrs): Intake & Output 11/26/17 11/27/17 11/27/17 22:59 06:59 14:59 Intake Total 500 179 Output Total 350 Balance 500 -171 Weight 105 lb 3.2 oz Intake: IV 500 Intake, IV Amount 4 Right Hand 4 Oral 175 Output: Urine 350 Urine, Voided 350 Other: Voiding Method Bedpan - Medications Active Medications: Active Medications Generic Name Dose Route Start Last Admin Trade Name Freq PRN Reason Stop Dose Admin Albuterol/Ipratropium 3 ml 11/26/17 14:00 11/27/17 07:00 Duoneb 3 Mg/0.5 Mg (3 Ml) Ud INH 3 ml RQ6 [facility] Administration Aspirin 81 mg 11/26/17 10:00 11/27/17 09:28 Ecotrin PO 81 mg DAILY [facility] Administration Clonidine HCl 0.1 mg 11/26/17 09:45 11/27/17 09:28 Catapres PO 0.1 mg Q8H [facility] Administration Diltiazem HCl 120 mg 11/26/17 10:00 11/27/17 09:27 Cardizem Cd PO 120 mg DAILY [facility] Administration Famotidine 20 mg 11/26/17 10:00 11/26/17 11:38 Pepcid PO 20 mg DAILY [facility] Administration Furosemide 40 mg 11/26/17 10:00 11/26/17 14:47 Lasix IVP 40 mg DAILY [facility] Administration Heparin Sodium (Porcine) 5,000 units 11/26/17 11:15 11/27/17 09:28 Heparin SC 5,000 units Q12 [facility] Administration Hydralazine HCl 50 mg 11/27/17 10:00 11/27/17 09:42 Apresoline PO 50 mg TID [facility] Administration Vancomycin/Sodium Chloride 1 gm in 200 mls @ 166.7 mls/hr 11/27/17 14:00 Vancomycin 1 Gm/Ns 200 Ml IVPB 12/02/17 14:01 Q24H [facility] Piperacillin Sod/Tazobactam 100 mls @ 100 mls/hr 11/27/17 14:45 Sod 2.25 gm/ Sodium Chloride IVPB Q8H [facility] Isosorbide Mononitrate 120 mg 11/27/17 10:00 Imdur PO DAILY [facility] Metoprolol Succinate 25 mg 11/26/17 10:00 11/27/17 09:29 Toprol Xl PO 25 mg DAILY [facility] Administration Pantoprazole Sodium 40 mg 11/27/17 10:00 11/27/17 09:28 Protonix Inj IVP 40 mg DAILY [facility] Administration Ranolazine 500 mg 11/26/17 10:00 11/27/17 09:29 Ranexa PO 500 mg BID [facility] Administration Rosuvastatin Calcium 5 mg 11/26/17 22:00 11/26/17 22:43 Crestor PO 5 mg HS [facility] Administration Fluticasone/Salmeterol 1 puff 11/27/17 08:00 Advair Diskus 250/50 INH RQ12 [facility] Tiotropium [place] 18 mcg 11/27/17 08:00 Spiriva INH RQ24 [facility] Tramadol HCl 50 mg 11/26/17 14:00 11/27/17 09:41 Ultram PO 50 mg Q8 PRN Administration breakthrough pain - Patient Studies Lab Studies: Lab Studies 11/27/17 11/27/17 11/26/17 Range/Units 06:31 06:30 22:52 WBC 12.1 H (4.8-10.8) K/uL RBC 4.34 (3.80-5.20) Mil/uL Hgb 11.3 D (11.0-16.0) g/dL Hct 35.0 (34.0-47.0) % MCV 80.7 L (81.0-99.0) fL MCH 26.1 L (27.0-31.0) pg MCHC 32.4 L (33.0-37.0) g/dL RDW 20.4 H (11.5-14.5) % Plt Count 203 (130-400) K/uL MPV 9.7 (7.2-11.7) fL D-Dimer, Quantitative (0-243) ng/mlDDU Sodium 137 (132-148) mmol/L Potassium 3.7 (3.6-5.2) mmol/L Chloride 103 (98-107) mmol/L Carbon Dioxide 25 (22-30) mmol/L Anion Gap 13 (10-20) BUN 23 H (7-17) mg/dL Creatinine 1.1 (0.7-1.2) mg/dL Est GFR ( Amer) 59 Est GFR (Non-Af Amer) 49 Random Glucose 115 H (65-105) mg/dL Calcium 7.9 L (8.6-10.4) mg/dl Total Bilirubin 0.7 (0.2-1.3) mg/dL AST 20 (14-36) U/L ALT 21 (9-52) U/L Alkaline Phosphatase 67 (38-126) U/L Troponin I 0.0860 (0.00-0.120) ng/mL Total Protein 5.1 L (6.3-8.3) g/dL Albumin 2.8 L D (3.5-5.0) g/dL Globulin 2.3 (2.2-3.9) gm/dL Albumin/Globulin Ratio 1.2 (1.0-2.1) Urine Color (YELLOW) Urine Clarity (Clear) Urine pH (5.0-8.0) Ur Specific [place] (1.003-1.030) Urine Protein (NEGATIVE) mg/dL Urine Glucose (UA) (Normal) mg/dL Urine Ketones (NEGATIVE) mg/dL Urine Blood (NEGATIVE) Urine Nitrate (NEGATIVE) Urine Bilirubin (NEGATIVE) Urine Urobilinogen (0.2-1.0) mg/dL Ur Leukocyte Esterase (Negative) [place]/uL Urine WBC (Auto) (0-5) /hpf Urine RBC (Auto) (0-3) /hpf Ur Squamous Epith Cells (0-5) /hpf Urine Bacteria (<OCC) 11/26/17 11/26/17 11/26/17 Range/Units 19:30 16:53 13:30 WBC (4.8-10.8) K/uL RBC (3.80-5.20) Mil/uL Hgb (11.0-16.0) g/dL Hct (34.0-47.0) % MCV (81.0-99.0) fL MCH (27.0-31.0) pg MCHC (33.0-37.0) g/dL RDW (11.5-14.5) % Plt Count (130-400) K/uL MPV (7.2-11.7) fL D-Dimer, Quantitative 1211 H (0-243) ng/mlDDU Sodium (132-148) mmol/L Potassium (3.6-5.2) mmol/L Chloride (98-107) mmol/L Carbon Dioxide (22-30) mmol/L Anion Gap (10-20) BUN (7-17) mg/dL Creatinine (0.7-1.2) mg/dL Est GFR ( Amer) Est GFR (Non-Af Amer) Random Glucose (65-105) mg/dL Calcium (8.6-10.4) mg/dl Total Bilirubin (0.2-1.3) mg/dL AST (14-36) U/L ALT (9-52) U/L Alkaline Phosphatase (38-126) U/L Troponin I 0.0840 (0.00-0.120) ng/mL Total Protein (6.3-8.3) g/dL Albumin (3.5-5.0) g/dL Globulin (2.2-3.9) gm/dL Albumin/Globulin Ratio (1.0-2.1) Urine Color Yellow (YELLOW) Urine Clarity Clear (Clear) Urine pH 6.0 (5.0-8.0) Ur Specific [place] 1.012 (1.003-1.030) Urine Protein 2+ H (NEGATIVE) mg/dL Urine Glucose (UA) Normal (Normal) mg/dL Urine Ketones Negative (NEGATIVE) mg/dL Urine Blood Negative (NEGATIVE) Urine Nitrate Negative (NEGATIVE) Urine Bilirubin Negative (NEGATIVE) Urine Urobilinogen Normal (0.2-1.0) mg/dL Ur Leukocyte Esterase Neg (Negative) [place]/uL Urine WBC (Auto) 5 (0-5) /hpf Urine RBC (Auto) 2 (0-3) /hpf Ur Squamous Epith Cells 4 (0-5) /hpf Urine Bacteria Rare (<OCC) Laboratory Results - last 24 hr 11/26/17 11/26/17 11/26/17 13:30 16:53 19:30 WBC RBC Hgb Hct MCV MCH MCHC RDW Plt Count MPV D-Dimer, Quantitative 1211 H Sodium Potassium Chloride Carbon Dioxide Anion Gap BUN Creatinine Est GFR ( Amer) Est GFR (Non-Af Amer) Random Glucose Calcium Total Bilirubin AST ALT Alkaline Phosphatase Troponin I 0.0840 Total Protein Albumin Globulin Albumin/Globulin Ratio Urine Color Yellow Urine Clarity Clear Urine pH 6.0 Ur Specific [place] 1.012 Urine Protein 2+ H Urine Glucose (UA) Normal Urine Ketones Negative Urine Blood Negative Urine Nitrate Negative Urine Bilirubin Negative Urine Urobilinogen Normal Ur Leukocyte Esterase Neg Urine WBC (Auto) 5 Urine RBC (Auto) 2 Ur Squamous Epith Cells 4 Urine Bacteria Rare 11/26/17 11/27/17 11/27/17 22:52 06:30 06:31 WBC 12.1 H RBC 4.34 Hgb 11.3 D Hct 35.0 MCV 80.7 L MCH 26.1 L MCHC 32.4 L RDW 20.4 H Plt Count 203 MPV 9.7 D-Dimer, Quantitative Sodium 137 Potassium 3.7 Chloride 103 Carbon Dioxide 25 Anion Gap 13 BUN 23 H Creatinine 1.1 Est GFR ( Amer) 59 Est GFR (Non-Af Amer) 49 Random Glucose 115 H Calcium 7.9 L Total Bilirubin 0.7 AST 20 ALT 21 Alkaline Phosphatase 67 Troponin I 0.0860 Total Protein 5.1 L Albumin 2.8 L D Globulin 2.3 Albumin/Globulin Ratio 1.2 Urine Color Urine Clarity Urine pH Ur Specific [place] Urine Protein Urine Glucose (UA) Urine Ketones Urine Blood Urine Nitrate Urine Bilirubin Urine Urobilinogen Ur Leukocyte Esterase Urine WBC (Auto) Urine RBC (Auto) Ur Squamous Epith Cells Urine Bacteria EKG/Cardiology Studies: Cardiology / EKG Studies 11/26/17 15:47 EKG [ELECTROCARDIOGRAM] Stat Comment: Mode Of Transportation: Reason For Exam: sob 11/26/17 16:00 EKG [ELECTROCARDIOGRAM] Stat Comment: Mode Of Transportation: Reason For Exam: sob Critical Care Progress Note - Nutrition Nutrition: Nutrition Category Date Time Status Heart Healthy Diet [DIET] Diets 11/26/17 Dinner Active
--- NOTE | 2017-11-27 12:08 | CP.PCM.PN ---
Subjective - Date & Time of Evaluation Date of Evaluation: 11/27/17 Time of Evaluation: 09:00 - Subjective Subjective: IMPROVING CONSIDER DE-ESCALATION OF ANTIBIOTICS IF CULTURES NEG Objective - Vital Signs/Intake and Output Vital Signs (last 24 hours): Temp Pulse Resp BP Pulse Ox 98.0 F 72 17 130/61 98 11/27/17 08:00 11/27/17 11:00 11/27/17 11:00 11/27/17 11:00 11/27/17 11:00 Intake and Output: 11/27/17 11/27/17 06:59 18:59 Intake Total 179 240 Output Total 350 Balance -171 240 - Medications Medications: Current Medications Albuterol/Ipratropium (Duoneb 3 Mg/0.5 Mg (3 Ml) Ud) 3 ml INH RQ6 [facility] Last Admin: 11/27/17 07:00 Dose: 3 ml Aspirin (Ecotrin) 81 mg PO DAILY [facility] Last Admin: 11/27/17 09:28 Dose: 81 mg Clonidine HCl (Catapres) 0.1 mg PO Q8H [facility] Last Admin: 11/27/17 09:28 Dose: 0.1 mg Diltiazem HCl (Cardizem Cd) 120 mg PO DAILY [facility] Last Admin: 11/27/17 09:27 Dose: 120 mg Famotidine (Pepcid) 20 mg PO DAILY [facility] Last Admin: 11/26/17 11:38 Dose: 20 mg Furosemide (Lasix) 40 mg IVP DAILY [facility] Last Admin: 11/26/17 14:47 Dose: 40 mg Heparin Sodium (Porcine) (Heparin) 5,000 units SC Q12 [facility] Last Admin: 11/27/17 09:28 Dose: 5,000 units Hydralazine HCl (Apresoline) 50 mg PO TID [facility] Last Admin: 11/27/17 09:42 Dose: 50 mg Vancomycin/Sodium Chloride (Vancomycin 1 Gm/Ns 200 Ml) 1 gm in 200 mls @ 166.7 mls/hr IVPB Q24H [facility] Stop: 12/02/17 14:01 Piperacillin Sod/Tazobactam (Sod 2.25 gm/ Sodium Chloride) 100 mls @ 100 mls/ hr IVPB Q8H [facility] Isosorbide Mononitrate (Imdur) 120 mg PO DAILY [facility] Metoprolol Succinate (Toprol Xl) 25 mg PO DAILY [facility] Last Admin: 11/27/17 09:29 Dose: 25 mg Pantoprazole Sodium (Protonix Inj) 40 mg IVP DAILY [facility] Last Admin: 11/27/17 09:28 Dose: 40 mg Ranolazine (Ranexa) 500 mg PO BID [facility] Last Admin: 11/27/17 09:29 Dose: 500 mg Rosuvastatin Calcium (Crestor) 5 mg PO HS [facility] Last Admin: 11/26/17 22:43 Dose: 5 mg Fluticasone/Salmeterol (Advair Diskus 250/50) 1 puff INH RQ12 [facility] Tiotropium [place] (Spiriva) 18 mcg INH RQ24 [facility] Tramadol HCl (Ultram) 50 mg PO Q8 PRN PRN Reason: breakthrough pain Last Admin: 11/27/17 09:41 Dose: 50 mg - Labs Labs: 11/27/17 06:30 11/27/17 06:31 PT 11.4 SECONDS (9.7-12.2) 11/26/17 08:21 INR 1.0 11/26/17 08:21 - Constitutional Appears: Non-toxic, Chronically Ill - Head Exam Head Exam: NORMOCEPHALIC - Eye Exam Eye Exam: PERRL - ENT Exam ENT Exam: Mucous Membranes Dry - Neck Exam Neck Exam: absent: Lymphadenopathy - Respiratory Exam Respiratory Exam: Decreased Breath Sounds - Cardiovascular Exam Cardiovascular Exam: REGULAR RHYTHM - GI/Abdominal Exam GI & Abdominal Exam: Distended Assessment and Plan (1) CHF exacerbation Status: Acute (2) Pneumonia Status: Acute (3) ACS (acute coronary syndrome) Status: Acute (4) Abdominal pain Status: Acute
--- NOTE | 2017-11-27 12:43 | PN ---
DATE: SUBJECTIVE: She was in the ER yesterday. She had a shortness of breath episode, was sent to the Intensive Care Unit. They almost intubated her, she is here in the Intensive Care Unit, sitting up in the bed, alert, talking, smiling, comfortable. She is on Advair, Apresoline, Cardizem, Catapres, Crestor, DuoNeb, Ecotrin, Kayexalate, Lasix IV, morphine, nitroglycerin, Zosyn IV, Ranexa, Spiriva, Toprol, Tylenol, Ultram, vancomycin. She also has nitroglycerin IV running and now added Protonix IV because she is having some stomach upset. She went yesterday with lot of shortness of breath. She is now feeling quite better. She has Cardiology and Pulmonology on the case, now she is in the intensive care unit. Also Infectious Disease. PHYSICAL EXAMINATION VITAL SIGNS: Today are 97.8 temperature, 70 pulse, 148/61 blood pressure, 98% O2 sat on nasal canula. HEENT: Head atraumatic, normocephalic. HEART: Regular rate. LUNGS: Decreased breath sounds, but clear to auscultation. ABDOMEN: Soft. EXTREMITIES: No edema. She has a mild grade 1 sacral ulcer LABORATORY DATA: She has a 12.1 white count better than 15, coming down; 11.3 hemoglobin, dropped 3 g; 35 hematocrit; with 203 platelets. I am going to check her stool for blood and keep an eye on her hemoglobin, also check her CBC tomorrow. Sodium is 137, potassium is 3.7, BUN 23, creatinine 1.1, GFR is 49, sugar is 150, calcium is 7.9, total bili is 0.7, AST is 29, ALT is 21, alk phos 67, total protein is 5.1, troponin is 0.08. We will check all labs tomorrow. Continue with aggressive treatment and care. She has multiple issues going on; CHF, pneumonia, acute coronary syndrome, abdominal pain, she lost 3 g of hemoglobin which we need to watch very aggressively. John Brown DO [facility] # [id number] MTDD
[2017-11-27] MEDS: Fluticasone-Salmeterol 250-50mcg Diskus INH SCH ×2 (13:23→20:30)
[2017-11-27] MEDS: Tiotropium 18 mcg Cap For Inhalation INH SCH (13:23)
[2017-11-27] MEDS: Vancomycin 1 gm/NS 200 ml 1 GM/200 ML BAG IVPB SCH (15:19)
--- NOTE | 2017-11-27 16:23 | RAD ---
PROCEDURE: CHEST RADIOGRAPH, 1 VIEW HISTORY: verify right PICC COMPARISON: 11/26/2017. FINDINGS: The right PICC line terminates in the SVC. LUNGS: The lungs are well inflated. There is severe pulmonary venous congestion. There is confluent airspace disease in the lower lobes likely compressive atelectasis. PLEURA: No pneumothorax. There are small pleural effusions. CARDIOVASCULAR: There is persistent mild cardiomegaly and prominent central vasculature. OSSEOUS STRUCTURES: No significant abnormalities. VISUALIZED UPPER ABDOMEN: Normal. OTHER FINDINGS: None. IMPRESSION: Right PICC line terminates in the SVC. Worsening congestive heart failure.
[2017-11-28] MEDS: Albuterol-Ipratrop 3 mg / 0.5 (3 ml) UD INH SCH ×5 (03:04→21:12)
[2017-11-28 06:36] LABS: MEAN CORPUSCULAR HEMOGLOBIN 26.6 pg (27.0-31.0); MEAN CORPUSCULAR HGB CONC 33.3 g/dL (33.0-37.0); MEAN PLATELET VOLUME 10.4 fL (7.2-11.7); RBC 3.77 Mil/uL (3.80-5.20); RED CELL DISTRIBUTION WIDTH 20.2 % (11.5-14.5); WHITE BLOOD COUNT 10.1 K/uL (4.8-10.8)
[2017-11-28 06:52] LABS: ALB/GLOB RATIO 1.2 (1.0-2.1); ALBUMIN 2.7 g/dL (3.5-5.0); CALCIUM 8.2 mg/dl (8.6-10.4)
[2017-11-28] MEDS: Fluticasone-Salmeterol 250-50mcg Diskus INH SCH ×2 (09:32→21:11)
[2017-11-28] MEDS: Metoprolol Succinate 25 mg XL Tab PO SCH (09:33)
[2017-11-28] MEDS: Tiotropium 18 mcg Cap For Inhalation INH SCH (09:33)
[2017-11-28] MEDS: Ranolazine 500 mg Extended Release Tablets PO SCH ×2 (09:37→18:11)
--- NOTE | 2017-11-28 09:57 | PN ---
DATE: 11/28/2017. SUBJECTIVE: I saw her in the Intensive Care Unit. She is very alert with the nurse. She is having abdominal pain, shortness of breath, aches and pains everywhere, is not happy. She wants a life teacher to see her today. MEDICATIONS: She is on Advair, Apresoline, Cardizem, Catapres, Crestor, DuoNeb, Ecotrin, heparin, Imdur, Lasix, Zosyn, Protonix, Ranexa, Spiriva, Toprol, Ultram and vancomycin. PHYSICAL EXAMINATION: VITAL SIGNS: She has a 98.1 temp, 64 pulse, 16 respiratory rate, 100/51 blood pressure, 98% O2 sat on nasal cannula. HEENT: Head atraumatic, normocephalic. Throat is moist. NECK: Supple. HEART: Regular rate. LUNGS: Decreased breath sounds. Mild congestion bilaterally, but clearing with cough. ABDOMEN: Soft, positive bowel sounds. Epigastric tenderness. No guarding. No rebound. EXTREMITIES: With no edema, but her left foot hurts her a little bit. LABORATORY DATA: She has a 12.1 white count, 11.3 hemoglobin, 35 hematocrit with 203 platelets. Sodium is 137. potassium is 3.7, BUN 23, creatinine 1.1, calcium is 7.9, total bili is 0.78, AST 20, ALT is 21, alk phos is 17. Troponin is 0.06, 0.08, 0.08. 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 I called in manufacturers service representative and GI. I increased her Protonix to b.i.d. She has congestive heart failure, severe pulmonary hypertension, chronic obstructive pulmonary disease, still smokes at home, history of coronary artery bypass graft, breast cancer. We will see what the GI doctor has to say. Continue with aggressive cardiology and intensive care unit care and participating in physical therapy. John Brown DO [facility]
--- NOTE | 2017-11-28 10:34 | CP.PCM.CON ---
<Andres Dexter - Last Filed: 11/28/17 11:01> History of Present Illness - History of Present Illness History of Present Illness: PGY5 GI Fellow Consult Note Patient is a 72yo female with triple vessel CAD with prior PCI and now recommendation for CABG (pt refusing), peripheral vascular disease, CHF, CKD, severe pulmonary hypertension, COPD, prior CVA, DVT, breast cancer s/p chemotherapy who presented to the hospital with left sided chest pain. The patient was recently admitted at [facility] with NSTEMI, underwent diagnostic catheterization revealing severe triple vessel disease. Patient refusing CABG and being treated medically at present. She returned to the hospital with recurrence of left sided chest pain and complaint of chronic, long-standing abdominal pain. She states abdominal pain is worse with deep inspiration and does not change with defecation or PO intake. Pain is relatively diffuse but more frequently in the B/L upper quadrants. She admits to frequent nausea without vomiting. Passing stool daily. Overall, symptoms ongoing for > 1 year. Patient admits to prior endoscopy and colonoscopy. PMHx: See HPI PSHx: Right hip, PCIx4, carotid stent, Port-a-cath insertion/removal, aortoiliac stent placement FHx: Discussed with patient and she denies any pertinent history Social: +tobacco use daily, +EtOH weekly, denies illicit drug use Endo: EGD 11/2016 - hiatal hernia, otherwise unremarkable 12 system ROS performed and negative except where stated Past Patient History - Infectious Disease Hx of Infectious Diseases: None - Tetanus Immunizations Tetanus Immunization: Unknown - Past Medical History & Family History Past Medical History?: Yes - Past Social History Smoking Status: Never Smoked - CARDIAC Hx Cardiac Disorders: Yes Hx Congestive Heart Failure: Yes Hx Hypercholesterolemia: Yes Hx Hypertension: Yes - PULMONARY Hx Chronic Obstructive Pulmonary Disease (COPD): Yes - NEUROLOGICAL Hx Neurological Disorder: Yes Hx Dementia: Yes Hx Transient Ischemic Attacks (TIA): Yes - HEENT Hx HEENT Problems: Yes Hx Blind: Yes (R. 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) - RENAL Hx Chronic Kidney Disease: Yes - ENDOCRINE/METABOLIC Hx Diabetes Mellitus Type 2: Yes - HEMATOLOGICAL/ONCOLOGICAL Hx Blood Disorders: Yes Hx Anemia: Yes Hx Cancer: Yes Hx Chemotherapy: Yes - INTEGUMENTARY Hx Dermatological Problems: No - MUSCULOSKELETAL/RHEUMATOLOGICAL Hx Arthritis: Yes (L ANKLE; B/L HIP) - GASTROINTESTINAL Hx Gastrointestinal Disorders: Yes Hx Gastroesophageal Reflux: Yes - PSYCHIATRIC Hx Substance Use: No - SURGICAL HISTORY Hx Surgeries: Yes Hx Coronary Stent: Yes (x4) - ANESTHESIA Hx Anesthesia: Yes Hx Anesthesia Reactions: No Hx Malignant Hyperthermia: No Meds Allergies/Adverse Reactions: Allergies Allergy/AdvReac Type Severity Reaction Status Date / Time iodine Allergy Severe ANAPHYLAXIS Verified 11/26/17 06:28 iv dye Allergy Severe ANAPHYLAXIS Uncoded 11/06/17 07:43 - Medications Medications: Current Medications Albuterol/Ipratropium (Duoneb 3 Mg/0.5 Mg (3 Ml) Ud) 3 ml INH RQ6 [facility] Last Admin: 11/28/17 09:33 Dose: Not Given Aspirin (Ecotrin) 81 mg PO DAILY [facility] Last Admin: 11/28/17 09:32 Dose: 81 mg Clonidine HCl (Catapres) 0.1 mg PO Q8H [facility] Last Admin: 11/28/17 09:32 Dose: 0.1 mg Diltiazem HCl (Cardizem Cd) 120 mg PO DAILY [facility] Last Admin: 11/27/17 09:27 Dose: 120 mg Furosemide (Lasix) 40 mg IVP DAILY [facility] Last Admin: 11/28/17 09:33 Dose: 40 mg Heparin Sodium (Porcine) (Heparin) 5,000 units SC Q12 [facility] Last Admin: 11/28/17 09:36 Dose: 5,000 units Hydralazine HCl (Apresoline) 50 mg PO TID [facility] Last Admin: 11/28/17 09:33 Dose: 50 mg Vancomycin/Sodium Chloride (Vancomycin 1 Gm/Ns 200 Ml) 1 gm in 200 mls @ 166.7 mls/hr IVPB Q24H [facility] Stop: 12/02/17 14:01 Last Admin: 11/27/17 15:19 Dose: 166.7 mls/hr Piperacillin Sod/Tazobactam (Sod 2.25 gm/ Sodium Chloride) 100 mls @ 100 mls/ hr IVPB Q8H [facility] Last Admin: 11/28/17 07:11 Dose: 100 mls/hr Isosorbide Mononitrate (Imdur) 120 mg PO DAILY [facility] Last Admin: 11/28/17 09:32 Dose: 120 mg Metoprolol Succinate (Toprol Xl) 25 mg PO DAILY [facility] Last Admin: 11/28/17 09:33 Dose: 25 mg Pantoprazole Sodium (Protonix Inj) 40 mg IVP BID [facility] Last Admin: 11/28/17 09:36 Dose: 40 mg Ranolazine (Ranexa) 500 mg PO BID [facility] Last Admin: 11/28/17 09:37 Dose: 500 mg Rosuvastatin Calcium (Crestor) 5 mg PO HS [facility] Last Admin: 11/27/17 21:12 Dose: 5 mg Fluticasone/Salmeterol (Advair Diskus 250/50) 1 puff INH RQ12 [facility] Last Admin: 11/28/17 09:32 Dose: Not Given Tiotropium [place] (Spiriva) 18 mcg INH RQ24 [facility] Last Admin: 11/28/17 09:33 Dose: Not Given Tramadol HCl (Ultram) 50 mg PO Q8 PRN PRN Reason: breakthrough pain Last Admin: 11/28/17 05:34 Dose: 50 mg Physical Exam - Constitutional Appears: Non-toxic, No Acute Distress - Eye Exam Eye Exam: EOMI, PERRL - ENT Exam ENT Exam: Mucous Membranes Moist - Respiratory Exam Respiratory Exam: Decreased Breath Sounds, Rales. absent: Clear to Auscultation Bilateral, Rhonchi, Wheezes - Cardiovascular Exam Cardiovascular Exam: RRR, +S1, +S2 - GI/Abdominal Exam GI & Abdominal Exam: Soft. absent: Distended, Firm, Guarding, Normal Bowel Sounds, Organomegaly, Rigid, Tenderness - Extremities Exam Extremities exam: Positive for: normal inspection. Negative for: pedal edema - Neurological Exam Neurological exam: Alert, Oriented x3 - Psychiatric Exam Psychiatric exam: Normal Affect, Normal Mood - Skin Skin Exam: Dry, Warm Results - Vital Signs Recent Vital Signs: Last Vital Signs Temp 98.1 F 11/28/17 04:00 Pulse 72 11/28/17 06:00 Resp 18 11/28/17 06:00 BP 126/53 L 11/28/17 09:33 Pulse Ox 96 11/28/17 06:00 - Labs Result Diagrams: 11/28/17 06:22 11/28/17 06:21 Labs: Laboratory Results - last 24 hr 11/27/17 11/28/17 11/28/17 07:07 06:21 06:21 WBC RBC Hgb Hct MCV MCH MCHC RDW Plt Count MPV Sodium 138 Potassium 3.2 L Chloride 101 Carbon Dioxide 27 Anion Gap 14 BUN 25 H Creatinine 1.3 H Est GFR ( Amer) 49 Est GFR (Non-Af Amer) 40 Random Glucose 104 Calcium 8.2 L Total Bilirubin 0.5 AST 9 L D ALT 26 Alkaline Phosphatase 63 Total Protein 4.9 L Albumin 2.7 L Globulin 2.2 Albumin/Globulin Ratio 1.2 Stool Occult Blood Negative Vancomycin Trough 18.0 H 11/28/17 06:22 WBC 10.1 RBC 3.77 L Hgb 10.0 L Hct 30.2 L MCV 80.0 L MCH 26.6 L MCHC 33.3 RDW 20.2 H Plt Count 162 MPV 10.4 Sodium Potassium Chloride Carbon Dioxide Anion Gap BUN Creatinine Est GFR ( Amer) Est GFR (Non-Af Amer) Random Glucose Calcium Total Bilirubin AST ALT Alkaline Phosphatase Total Protein Albumin Globulin Albumin/Globulin Ratio Stool Occult Blood Vancomycin Trough Assessment & Plan - Assessment and Plan (Free Text) Assessment: Patient is a 72yo female with triple vessel CAD with prior PCI and now recommendation for CABG (pt refusing), peripheral vascular disease, CHF, CKD, severe pulmonary hypertension, COPD, prior CVA, DVT, breast cancer s/p chemotherapy who presented to the hospital with left sided chest pain. -Chronic abdominal pain -Severe CAD -PVD -COPD with pulmonary HTN -CKD -H/O breast cancer Plan: -Patient does not have any reproducible abdominal discomfort on examination -Chronic long-stand abdominal pain, unexplained by recent endoscopy -Given diffuse vascular disease - component of chronic mesenteric ischemia or vascular stenosis may be present supplying the intestinal tract -Could consider CT angiography, CT with IV contrast to evaluate vasculature; however with Cr 1.3, this cannot be performed at this time -Moreover, patient may not be candidate for intervention if obstruction noted given multiple significant comorbidities and is currently refusing invasive procedures/surgical interventions -Patient is adamant that she does not want to perform colonoscopy -Passing stool without issue, tolerating meals thus far during admission -Would recommend ongoing medical therapy and treatment of her more pressing issues with regards to her ongoing pulmonary and cardiac issues with further outpatient GI evaluation to follow - Date & Time Date: 11/28/17 Time: 07:10 <Carlos Canela - Last Filed: 11/28/17 15:00> Meds - Medications Medications: Current Medications Albuterol/Ipratropium (Duoneb 3 Mg/0.5 Mg (3 Ml) Ud) 3 ml INH RQ6 [facility] Last Admin: 11/28/17 13:08 Dose: Not Given Aspirin (Ecotrin) 81 mg PO DAILY [facility] Last Admin: 11/28/17 09:32 Dose: 81 mg Clonidine HCl (Catapres) 0.1 mg PO Q8H [facility] Last Admin: 11/28/17 09:32 Dose: 0.1 mg Diltiazem HCl (Cardizem Cd) 120 mg PO DAILY [facility] Last Admin: 11/28/17 12:56 Dose: 120 mg Furosemide (Lasix) 40 mg IVP DAILY [facility] Last Admin: 11/28/17 09:33 Dose: 40 mg Heparin Sodium (Porcine) (Heparin) 5,000 units SC Q12 [facility] Last Admin: 11/28/17 09:36 Dose: 5,000 units Hydralazine HCl (Apresoline) 50 mg PO TID [facility] Last Admin: 11/28/17 14:40 Dose: 50 mg Vancomycin/Sodium Chloride (Vancomycin 1 Gm/Ns 200 Ml) 1 gm in 200 mls @ 166.7 mls/hr IVPB Q24H [facility] Stop: 12/02/17 14:01 Last Admin: 11/28/17 14:41 Dose: 166.7 mls/hr Piperacillin Sod/Tazobactam (Sod 2.25 gm/ Sodium Chloride) 100 mls @ 100 mls/ hr IVPB Q8H [facility] Last Admin: 11/28/17 14:41 Dose: 100 mls/hr Isosorbide Mononitrate (Imdur) 120 mg PO DAILY [facility] Last Admin: 11/28/17 09:32 Dose: 120 mg Metoprolol Succinate (Toprol Xl) 25 mg PO DAILY [facility] Last Admin: 11/28/17 09:33 Dose: 25 mg Pantoprazole Sodium (Protonix Inj) 40 mg IVP BID [facility] Last Admin: 11/28/17 09:36 Dose: 40 mg Ranolazine (Ranexa) 500 mg PO BID [facility] Last Admin: 11/28/17 09:37 Dose: 500 mg Rosuvastatin Calcium (Crestor) 5 mg PO HS [facility] Last Admin: 11/27/17 21:12 Dose: 5 mg Fluticasone/Salmeterol (Advair Diskus 250/50) 1 puff INH RQ12 [facility] Last Admin: 11/28/17 09:32 Dose: Not Given Tiotropium [place] (Spiriva) 18 mcg INH RQ24 [facility] Last Admin: 11/28/17 09:33 Dose: Not Given Tramadol HCl (Ultram) 50 mg PO Q8 PRN PRN Reason: breakthrough pain Last Admin: 11/28/17 05:34 Dose: 50 mg Results - Vital Signs Recent Vital Signs: Last Vital Signs Temp 97.4 F L 11/28/17 14:00 Pulse 62 11/28/17 10:00 Resp 18 11/28/17 06:00 BP 126/53 L 11/28/17 09:33 Pulse Ox 96 11/28/17 06:00 - Labs Result Diagrams: 11/28/17 06:22 11/28/17 06:21 Labs: Laboratory Results - last 24 hr 11/27/17 11/28/17 11/28/17 07:07 06:21 06:21 WBC RBC Hgb Hct MCV MCH MCHC RDW Plt Count MPV Sodium 138 Potassium 3.2 L Chloride 101 Carbon Dioxide 27 Anion Gap 14 BUN 25 H Creatinine 1.3 H Est GFR ( Amer) 49 Est GFR (Non-Af Amer) 40 Random Glucose 104 Calcium 8.2 L Total Bilirubin 0.5 AST 9 L D ALT 26 Alkaline Phosphatase 63 Total Protein 4.9 L Albumin 2.7 L Globulin 2.2 Albumin/Globulin Ratio 1.2 Stool Occult Blood Negative Vancomycin Trough 18.0 H 11/28/17 06:22 WBC 10.1 RBC 3.77 L Hgb 10.0 L Hct 30.2 L MCV 80.0 L MCH 26.6 L MCHC 33.3 RDW 20.2 H Plt Count 162 MPV 10.4 Sodium Potassium Chloride Carbon Dioxide Anion Gap BUN Creatinine Est GFR ( Amer) Est GFR (Non-Af Amer) Random Glucose Calcium Total Bilirubin AST ALT Alkaline Phosphatase Total Protein Albumin Globulin Albumin/Globulin Ratio Stool Occult Blood Vancomycin Trough Attending/Attestation - Attestation I have personally seen and examined this patient.: Yes I have fully participated in the care of the patient.: Yes I have reviewed all pertinent clinical information: Yes Notes (Text): 11/28/17 14:51 I have seen and examined patient with GI fellow. Agree with above documentation with the following additions. In brief, this is a 72 year old female with history of CAD s/p PCI, PVD, CKD, CHF, recent NSTEMI, COPD, breast cancer s/p chemotherapy who presents to hospital with complaint of left sided chest pain. She is seen currently in critical care unit where she is receiving therapy for bilateral pneumonia. GI called for evaluation of abdominal pain. She describes a chronic generalized abdominal discomfort that has been present for the past 6 months associated with nausea. There does not seem to be a clear association with food consumption and she otherwise denies vomiting, diarrhea, fever/chills, weight loss, or rectal bleeding. She has daily normal formed bowel movements. She had an EGD in November 2016 which showed a hiatal hernia and a colonoscopy 5-10 years ago which was normal as per patient. CAD with triple vessel disease, patient refusing CABG PVD CKD CHF, recent NSTEMI COPD History of breast cancer Pneumonia Abdominal pain - Diet as tolerated - Suggest consideration of CT angiography for further evaluation of chronic abdominal pain given significant vascular medical comorbidities. Currently unable to perform procedure given renal insufficiency. - Continue with PPI therapy - Continue with antibiotic therapy as per medical team - Patient would also benefit from repeat colonoscopy evaluation, though she is currently refusing procedure. Risks/benefits of procedure explained to patient and she understands and is willing to accept this risk. - Recommend further outpatient follow up with consideration of endoscopy (if patient agreeable) following resolution of acute pulmonary issues. Will sign off case, please reconsult as necessary, thank you.
[2017-11-28] MEDS ORDERED: Potassium Chloride 20 mEq ER Tab PO ONE ×2 (12:45→15:15)
[2017-11-28] MEDS: diltiaZEM 120 mg/24 Hours CD Cap PO SCH (12:56)
--- NOTE | 2017-11-28 13:58 | CARD ---
APPROVED REPORT EKG Measurement Heart [id number] <Conclusion> Sinus rhythm with premature supraventricular complexes and with occasional premature ventricular complexes Possible Left atrial enlargement Anteroseptal infarct, age undetermined T wave abnormality, consider inferolateral ischemia Abnormal ECG
[2017-11-28] MEDS: Vancomycin 1 gm/NS 200 ml 1 GM/200 ML BAG IVPB SCH (14:41)
--- NOTE | 2017-11-28 15:25 | CP.PCM.PN ---
Subjective - Date & Time of Evaluation Date of Evaluation: 11/28/17 Time of Evaluation: 15:21 - Subjective Subjective: pt is breathing better Objective - Vital Signs/Intake and Output Vital Signs (last 24 hours): Temp Pulse Resp BP Pulse Ox 97.4 F L 62 18 126/53 L 96 11/28/17 14:00 11/28/17 10:00 11/28/17 06:00 11/28/17 09:33 11/28/17 06:00 Intake and Output: 11/28/17 11/28/17 06:59 18:59 Intake Total 450 Output Total 350 Balance 100 - Medications Medications: Current Medications Albuterol/Ipratropium (Duoneb 3 Mg/0.5 Mg (3 Ml) Ud) 3 ml INH RQ6 [facility] Last Admin: 11/28/17 13:08 Dose: Not Given Aspirin (Ecotrin) 81 mg PO DAILY [facility] Last Admin: 11/28/17 09:32 Dose: 81 mg Clonidine HCl (Catapres) 0.1 mg PO Q8H [facility] Last Admin: 11/28/17 09:32 Dose: 0.1 mg Diltiazem HCl (Cardizem Cd) 120 mg PO DAILY [facility] Last Admin: 11/28/17 12:56 Dose: 120 mg Furosemide (Lasix) 40 mg IVP DAILY [facility] Last Admin: 11/28/17 09:33 Dose: 40 mg Heparin Sodium (Porcine) (Heparin) 5,000 units SC Q12 [facility] Last Admin: 11/28/17 09:36 Dose: 5,000 units Hydralazine HCl (Apresoline) 50 mg PO TID [facility] Last Admin: 11/28/17 14:40 Dose: 50 mg Vancomycin/Sodium Chloride (Vancomycin 1 Gm/Ns 200 Ml) 1 gm in 200 mls @ 166.7 mls/hr IVPB Q24H [facility] Stop: 12/02/17 14:01 Last Admin: 11/28/17 14:41 Dose: 166.7 mls/hr Piperacillin Sod/Tazobactam (Sod 2.25 gm/ Sodium Chloride) 100 mls @ 100 mls/ hr IVPB Q8H [facility] Last Admin: 11/28/17 14:41 Dose: 100 mls/hr Isosorbide Mononitrate (Imdur) 120 mg PO DAILY [facility] Last Admin: 11/28/17 09:32 Dose: 120 mg Metoprolol Succinate (Toprol Xl) 25 mg PO DAILY [facility] Last Admin: 11/28/17 09:33 Dose: 25 mg Pantoprazole Sodium (Protonix Inj) 40 mg IVP BID [facility] Last Admin: 11/28/17 09:36 Dose: 40 mg Ranolazine (Ranexa) 500 mg PO BID [facility] Last Admin: 11/28/17 09:37 Dose: 500 mg Rosuvastatin Calcium (Crestor) 5 mg PO HS [facility] Last Admin: 11/27/17 21:12 Dose: 5 mg Fluticasone/Salmeterol (Advair Diskus 250/50) 1 puff INH RQ12 [facility] Last Admin: 11/28/17 09:32 Dose: Not Given Tiotropium [place] (Spiriva) 18 mcg INH RQ24 [facility] Last Admin: 11/28/17 09:33 Dose: Not Given Tramadol HCl (Ultram) 50 mg PO Q8 PRN PRN Reason: breakthrough pain Last Admin: 11/28/17 05:34 Dose: 50 mg - Labs Labs: 11/28/17 06:22 11/28/17 06:21 PT 11.4 SECONDS (9.7-12.2) 11/26/17 08:21 INR 1.0 11/26/17 08:21 - Constitutional Appears: Older Than Stated Age, Cachectic - Eye Exam Eye Exam: EOMI, Normal appearance - ENT Exam ENT Exam: Mucous Membranes Dry - Respiratory Exam Respiratory Exam: Decreased Breath Sounds - Cardiovascular Exam Cardiovascular Exam: REGULAR RHYTHM - GI/Abdominal Exam GI & Abdominal Exam: Normal Bowel Sounds - Exam External exam: NORMAL EXTERNAL EXAM - Extremities Exam Extremities Exam: Normal Inspection - Back Exam Back Exam: NORMAL INSPECTION - Neurological Exam Neurological Exam: Alert, Awake, CN II-XII Intact, Oriented x3 - Psychiatric Exam Psychiatric exam: Agitated - Skin Skin Exam: Normal Color Assessment and Plan - Assessment and Plan (Free Text) Assessment: 1. BP has been good. Will try to stop cardezem and replace with amlodipine. 2 Echo still not done. EF was normal on echo 05/18. Pt has had chf and recent non stemi: reepat echo to assess LV fynction 2. CHF: still not resolved. Will give a dose of metolazone for diuresis. follow lytes. 3. Pt will refuse any surgery. Left main coronary artery disease.
[2017-11-28] MEDS ORDERED: metOLazone 5 MG TAB PO ONE (15:45)
[2017-11-28] MEDS: Alum-Mag Hydrox-Simethicone Susp (30 mL) PO PRN (21:28)
[2017-11-29] MEDS: Albuterol-Ipratrop 3 mg / 0.5 (3 ml) UD INH SCH ×4 (01:39→19:19)
[2017-11-29] MEDS: Alum-Mag Hydrox-Simethicone Susp (30 mL) PO PRN (05:25)
[2017-11-29 06:58] LABS: ALB/GLOB RATIO 1.3 (1.0-2.1); CALCIUM 8.6 mg/dl (8.6-10.4)
[2017-11-29] MEDS: Tiotropium 18 mcg Cap For Inhalation INH SCH (07:15)
[2017-11-29] MEDS: Fluticasone-Salmeterol 250-50mcg Diskus INH SCH ×2 (07:15→19:22)
[2017-11-29 08:16] LABS: HEMOGLOBIN 10.4 g/dL (11.0-16.0); MEAN CELL VOLUME 80.6 fL (81.0-99.0); MEAN CORPUSCULAR HEMOGLOBIN 26.9 pg (27.0-31.0); MEAN CORPUSCULAR HGB CONC 33.4 g/dL (33.0-37.0); MEAN PLATELET VOLUME 10.5 fL (7.2-11.7); RBC 3.87 Mil/uL (3.80-5.20); RED CELL DISTRIBUTION WIDTH 20.4 % (11.5-14.5); WHITE BLOOD COUNT 8.6 K/uL (4.8-10.8)
--- NOTE | 2017-11-29 08:40 | PN ---
DATE: 11/29/2017. SUBJECTIVE: I saw her in the Intensive Care Unit this morning, she is different from yesterday, yesterday she was very happy and calm; today she is upset, lot of abdominal pain, wants something done. We ordered a CAT scan of the abdomen and pelvis to see what is going on in there, she has done this before. MEDICATIONS: She is on Advair, Apresoline, Catapres, Crestor, DuoNeb, Ecotrin, heparin, Imdur, potassium replacement, Lasix, MiraLax, Norvasc, Protonix, Ranexa, Spiriva, Toprol, Ultram, vancomycin, Zaroxolyn and Zosyn. PHYSICAL EXAMINATION: VITAL SIGNS: She has a 98 temp, 60 pulse, 119/55 blood pressure, 18 respiratory rate and 99% O2 saturation on 5 L. HEENT: Head is atraumatic and normocephalic. HEART: Regular rate. LUNGS: Decreased breath sounds but clear. ABDOMEN: Soft, decreased bowel sounds. No guarding. No rebound. EXTREMITIES: There is no edema. She is in the intensive care unit, I need to get her out of bed to chair. LABORATORY DATA: Yesterday's lab shows 138 sodium, potassium is 3.2, was replaced, BUN 25, creatinine 1.3, GFR is 40, sugar is 104, calcium is 8.2. AST is, ALT is 26, alk phos is 53, total protein is 4.9. She has a 10.1 white count, 10 hemoglobin, 30.2 hematocrit with 162 platelets. ASSESSMENT AND PLAN: She is being seen by Cardiology, GI, Infectious Disease, the Production Machinist. I do not know where the simulation technician is as I called him in 4 days ago, he has not seen the patient yet. She was given dose of metolazone from the diuresis. She refuses surgery. Continue with IV antibiotics. We will get a CAT scan of the abdomen and pelvis. Check her labs. Get her out of bed to chair, physical therapy, hopefully she will improve. Severe abdominal pain. Nan Brown DO [facility] # [id number] MTDD
[2017-11-29] MEDS: Metoprolol Succinate 50 mg XL Tab PO SCH (10:15)
[2017-11-29] MEDS: Ranolazine 500 mg Extended Release Tablets PO SCH ×2 (10:16→18:38)
--- NOTE | 2017-11-29 14:00 | CARD ---
APPROVED REPORT EKG Measurement Heart [id number] <Conclusion> Sinus tachycardia Possible Left atrial enlargement Abnormal ECG
[2017-11-29] MEDS: Vancomycin 1 gm/NS 200 ml 1 GM/200 ML BAG IVPB SCH (15:00)
--- NOTE | 2017-11-29 17:56 | CP.PCM.PN ---
Subjective - Date & Time of Evaluation Date of Evaluation: 11/29/17 Time of Evaluation: 07:00 - Subjective Subjective: afebrile] all cultures neg Objective - Vital Signs/Intake and Output Vital Signs (last 24 hours): Temp Pulse Resp BP Pulse Ox 97.5 F L 71 17 131/51 L 97 11/29/17 14:00 11/29/17 14:00 11/29/17 14:00 11/29/17 14:00 11/29/17 14:00 Intake and Output: 11/29/17 11/29/17 06:59 18:59 Intake Total 500 Output Total 350 Balance 150 - Medications Medications: Current Medications Al Hydrox/Mg Hydrox/Simethicone (Maalox Plus 30 Ml) 30 ml PO Q6 PRN PRN Reason: Indigestion / Heartburn Last Admin: 11/29/17 05:25 Dose: 30 ml Albuterol/Ipratropium (Duoneb 3 Mg/0.5 Mg (3 Ml) Ud) 3 ml INH RQ6 [facility] Last Admin: 11/29/17 13:50 Dose: Not Given Amlodipine Besylate (Norvasc) 5 mg PO DAILY [facility] Last Admin: 11/29/17 10:15 Dose: 5 mg Aspirin (Ecotrin) 81 mg PO DAILY [facility] Last Admin: 11/29/17 10:15 Dose: 81 mg Clonidine HCl (Catapres) 0.1 mg PO Q8H [facility] Last Admin: 11/29/17 10:15 Dose: 0.1 mg Furosemide (Lasix) 40 mg IVP DAILY [facility] Last Admin: 11/29/17 10:12 Dose: 40 mg Hydralazine HCl (Apresoline) 50 mg PO TID [facility] Last Admin: 11/29/17 15:00 Dose: 50 mg Vancomycin/Sodium Chloride (Vancomycin 1 Gm/Ns 200 Ml) 1 gm in 200 mls @ 166.7 mls/hr IVPB Q24H [facility] Stop: 12/02/17 14:01 Last Admin: 11/29/17 15:00 Dose: 166.7 mls/hr Piperacillin Sod/Tazobactam Sod (Zosyn 2.25 Gm Iv Premix) 2.25 gm in 50 mls @ 100 mls/hr IVPB Q8H [facility] Isosorbide Mononitrate (Imdur) 120 mg PO DAILY [facility] Last Admin: 11/29/17 10:15 Dose: 120 mg Metoprolol Succinate (Toprol Xl) 50 mg PO DAILY [facility] Last Admin: 11/29/17 10:15 Dose: 50 mg Morphine Sulfate (Morphine) 1 mg IV Q3H PRN PRN Reason: pain Last Admin: 11/29/17 15:34 Dose: 1 mg Pantoprazole Sodium (Protonix Inj) 40 mg IVP BID [facility] Last Admin: 11/29/17 10:19 Dose: 40 mg Ranolazine (Ranexa) 500 mg PO BID [facility] Last Admin: 11/29/17 10:16 Dose: 500 mg Rosuvastatin Calcium (Crestor) 5 mg PO HS [facility] Last Admin: 11/28/17 21:28 Dose: 5 mg Fluticasone/Salmeterol (Advair Diskus 250/50) 1 puff INH RQ12 [facility] Last Admin: 11/29/17 07:15 Dose: 1 puff Tiotropium [place] (Spiriva) 18 mcg INH RQ24 [facility] Last Admin: 11/29/17 07:15 Dose: 18 mcg Tramadol HCl (Ultram) 50 mg PO Q8 PRN PRN Reason: breakthrough pain Last Admin: 11/28/17 23:30 Dose: 50 mg - Labs Labs: 11/29/17 06:30 11/29/17 06:30 PT 11.4 SECONDS (9.7-12.2) 11/26/17 08:21 INR 1.0 11/26/17 08:21 - Constitutional Appears: Non-toxic, Chronically Ill - Head Exam Head Exam: NORMOCEPHALIC - Eye Exam Eye Exam: PERRL - ENT Exam ENT Exam: Mucous Membranes Dry - Neck Exam Neck Exam: absent: Lymphadenopathy - Respiratory Exam Respiratory Exam: Decreased Breath Sounds - Cardiovascular Exam Cardiovascular Exam: REGULAR RHYTHM - GI/Abdominal Exam GI & Abdominal Exam: Distended, Soft - Rectal Exam Rectal Exam: Deferred - Exam Exam: NORMAL INSPECTION - Extremities Exam Extremities Exam: absent: Pedal Edema - Back Exam Back Exam: absent: CVA tenderness (L), CVA tenderness (R) - Neurological Exam Neurological Exam: Alert, Awake, Oriented x3 Assessment and Plan (1) CHF exacerbation Status: Acute (2) Pneumonia Status: Acute (3) ACS (acute coronary syndrome) Status: Acute (4) Abdominal pain Status: Acute - Assessment and Plan (Free Text) Assessment: iv rx reordered
[2017-11-29] MEDS ORDERED: Piperacill/Tazo 2.25gm in Dex 2.25 GM/50 ML BAG IVPB SCH (22:45)
[2017-11-30] MEDS: Albuterol-Ipratrop 3 mg / 0.5 (3 ml) UD INH SCH ×4 (01:24→20:40)
[2017-11-30 06:27] LABS: HEMOGLOBIN 9.7 g/dL (11.0-16.0); MEAN CELL VOLUME 80.6 fL (81.0-99.0); MEAN CORPUSCULAR HEMOGLOBIN 26.6 pg (27.0-31.0); MEAN CORPUSCULAR HGB CONC 33.1 g/dL (33.0-37.0); MEAN PLATELET VOLUME 10.4 fL (7.2-11.7); RBC 3.64 Mil/uL (3.80-5.20); RED CELL DISTRIBUTION WIDTH 21.4 % (11.5-14.5); WHITE BLOOD COUNT 8.8 K/uL (4.8-10.8)
[2017-11-30 08:03] VITALS: RESP 20
[2017-11-30 09:10] LABS: ALB/GLOB RATIO 1.3 (1.0-2.1); ALBUMIN 2.9 g/dL (3.5-5.0)
[2017-11-30] MEDS: Metoprolol Succinate 50 mg XL Tab PO SCH (09:34)
[2017-11-30] MEDS: Ranolazine 500 mg Extended Release Tablets PO SCH ×2 (09:34→18:35)
--- NOTE | 2017-11-30 13:39 | RAD ---
HISTORY: CHF COMPARISON: 11/27/2017 TECHNIQUE: Chest PA and lateral FINDINGS: LUNGS: The prominent interstitial lung markings and pulmonary venous congestion appearance is similar to slightly less pronounced allowing for differences in exposure. Bibasilar coalescent opacities similar. Underlying infiltrates and/or atelectasis compressive type given the bilateral pleural effusions are compatible with this. PLEURA: Bilateral pleural effusions similar. No pneumothorax. CARDIOVASCULAR: Cardiomegaly. Calcified thoracic aorta. Right subclavian PICC line tip is cavoatrial junction-similar. OSSEOUS STRUCTURES: Bilateral shoulder arthrosis. Generalized osteopenia. VISUALIZED UPPER ABDOMEN: Normal. OTHER FINDINGS: None. IMPRESSION: Cardiomegaly, pulmonary venous congestion and interstitial lung marking prominence (interstitial pulmonary edema) findings compatible with this. Some slight interval decreased interstitial pulmonary edema possible Bibasilar compressive atelectasis with bilateral pleural effusions - similar. Concomitant bibasilar coalescing infiltrates not excluded.
--- NOTE | 2017-11-30 17:42 | CP.PCM.PN ---
Subjective - Date & Time of Evaluation Date of Evaluation: 11/30/17 Time of Evaluation: 17:38 - Subjective Subjective: The pt had stomach pain, received morphine. Still needs oxygen. CXR still shows chf. Objective - Vital Signs/Intake and Output Vital Signs (last 24 hours): Temp Pulse Resp BP Pulse Ox 97.3 F L 65 20 144/64 95 11/30/17 16:00 11/30/17 16:00 11/30/17 16:00 11/30/17 16:00 11/30/17 16:00 Intake and Output: 11/30/17 11/30/17 06:59 18:59 Intake Total 100 400 Output Total 250 Balance -150 400 - Medications Medications: Current Medications Al Hydrox/Mg Hydrox/Simethicone (Maalox Plus 30 Ml) 30 ml PO Q6 PRN PRN Reason: Indigestion / Heartburn Last Admin: 11/29/17 05:25 Dose: 30 ml Albuterol/Ipratropium (Duoneb 3 Mg/0.5 Mg (3 Ml) Ud) 3 ml INH RQ6 [facility] Last Admin: 11/30/17 01:24 Dose: Not Given Amlodipine Besylate (Norvasc) 5 mg PO DAILY [facility] Last Admin: 11/30/17 09:33 Dose: 5 mg Aspirin (Ecotrin) 81 mg PO DAILY [facility] Last Admin: 11/30/17 09:33 Dose: 81 mg Clonidine HCl (Catapres) 0.1 mg PO Q8H [facility] Last Admin: 11/30/17 09:34 Dose: 0.1 mg Furosemide (Lasix) 40 mg IVP DAILY [facility] Last Admin: 11/30/17 09:26 Dose: 40 mg Heparin Sodium (Porcine) (Heparin) 5,000 units SC Q12 [facility] Last Admin: 11/30/17 09:30 Dose: 5,000 units Hydralazine HCl (Apresoline) 50 mg PO TID [facility] Last Admin: 11/30/17 14:34 Dose: 50 mg Ceftriaxone Sodium 1 gm/ (Sodium Chloride) 100 mls @ 50 mls/30 min IVPB Q24H [facility] Last Admin: 11/29/17 18:37 Dose: 50 mls/30 min Isosorbide Mononitrate (Imdur) 120 mg PO DAILY [facility] Last Admin: 11/30/17 11:00 Dose: 120 mg Metoprolol Succinate (Toprol Xl) 50 mg PO DAILY [facility] Last Admin: 11/30/17 09:34 Dose: 50 mg Morphine Sulfate (Morphine) 1 mg IV Q3H PRN PRN Reason: pain Last Admin: 11/30/17 14:34 Dose: 1 mg Pantoprazole Sodium (Protonix Inj) 40 mg IVP BID [facility] Last Admin: 11/30/17 09:26 Dose: 40 mg Ranolazine (Ranexa) 500 mg PO BID [facility] Last Admin: 11/30/17 09:34 Dose: 500 mg Rosuvastatin Calcium (Crestor) 5 mg PO HS [facility] Last Admin: 11/29/17 21:17 Dose: 5 mg Fluticasone/Salmeterol (Advair Diskus 250/50) 1 puff INH RQ12 [facility] Last Admin: 11/29/17 19:22 Dose: 1 puff Tiotropium [place] (Spiriva) 18 mcg INH RQ24 [facility] Last Admin: 11/29/17 07:15 Dose: 18 mcg Tramadol HCl (Ultram) 50 mg PO Q8 PRN PRN Reason: breakthrough pain Last Admin: 11/30/17 16:29 Dose: 50 mg - Labs Labs: 11/30/17 06:13 11/30/17 06:13 PT 11.4 SECONDS (9.7-12.2) 11/26/17 08:21 INR 1.0 11/26/17 08:21 - Constitutional Appears: Cachectic, Chronically Ill - Head Exam Head Exam: NORMAL INSPECTION - Eye Exam Eye Exam: EOMI - ENT Exam ENT Exam: Mucous Membranes Dry - Respiratory Exam Respiratory Exam: Decreased Breath Sounds, Clear to Ausculation Bilateral - Cardiovascular Exam Cardiovascular Exam: REGULAR RHYTHM - GI/Abdominal Exam GI & Abdominal Exam: Normal Bowel Sounds - Exam External exam: NORMAL EXTERNAL EXAM - Back Exam Back Exam: NORMAL INSPECTION - Neurological Exam Neurological Exam: Alert, Awake, Oriented x3 - Psychiatric Exam Psychiatric exam: Normal Affect - Skin Skin Exam: Normal Color Assessment and Plan - Assessment and Plan (Free Text) Assessment: 1. Refractory CHF: Pt has refused echo. Pt is on appropriate drug regimen, i will review and optimize, add aldactone. 2. CAD: L main: refuses cabg. 3. Would consider stopping IV antibiotics, oral if possible, to limit IV fluids
[2017-11-30] MEDS: Fluticasone-Salmeterol 250-50mcg Diskus INH SCH (20:40)
[2017-12-01] MEDS: Albuterol-Ipratrop 3 mg / 0.5 (3 ml) UD INH SCH ×2 (01:14→07:50)
--- NOTE | 2017-12-01 01:19 | DS ---
HISTORY OF PRESENT ILLNESS: She has phoned me that she wants to go home. She is refusing all the tests. She is requested to have a CAT scan, she refuses that. She does not want to have open heart surgery. She is just in one of her moods. She has got this all the time and now the plan is to discharge her home, to go home on Advair, Apresoline, Catapres, Crestor, DuoNeb, Imdur, Lasix, MiraLax, Norvasc, Protonix, Ranexa, Spiriva, Toprol, and Ultram or Toradol, I think she has that at home already. PHYSICAL EXAMINATION: VITAL SIGNS: She has a 98.1 temperature, 73 pulse, 120/70 blood pressure, 18 respiratory rate, and 96% O2 sat on nasal cannula. HEENT: Head is atraumatic and normocephalic. She is alert and comfortable. No chest pain, no shortness of breath. No abdominal pain. HEART: Regular rate. LUNGS: Clear to auscultation. ABDOMEN: Soft. EXTREMITIES: No edema. LABORATORY DATA: She has 8.6 white count, 10.4 hemoglobin, 152,000 platelets. She has 141 sodium, potassium is 4, BUN 25, creatinine 1.4, she has to drink more water, GFR is 115, calcium is 8.6, total bilirubin 0.4, AST 9, ALT 29. Last troponin 0.08. Stool is negative. She is being seen by Infectious Disease, Cardiology, and GI. She was offered open heart surgery, but she refuses. She would not go for that she tells me. Cultures are negative. She is afebrile. ASSESSMENT AND PLAN: She had acute exacerbation of congestive heart failure, pneumonia, and abdominal pain. She is doing better now. We will discharge her today to home. I will follow her up on a house call. Hopefully, she will do very well. John Brown DO [facility] HOSPITALJeaneth
[2017-12-01 06:58] LABS: HEMOGLOBIN 9.9 g/dL (11.0-16.0); MEAN CELL VOLUME 81.6 fL (81.0-99.0); MEAN CORPUSCULAR HEMOGLOBIN 26.7 pg (27.0-31.0); MEAN CORPUSCULAR HGB CONC 32.7 g/dL (33.0-37.0); MEAN PLATELET VOLUME 10.1 fL (7.2-11.7); RBC 3.73 Mil/uL (3.80-5.20); RED CELL DISTRIBUTION WIDTH 21.3 % (11.5-14.5); WHITE BLOOD COUNT 7.8 K/uL (4.8-10.8)
[2017-12-01 07:12] LABS: ALB/GLOB RATIO 1.3 (1.0-2.1); ALBUMIN 3.1 g/dL (3.5-5.0); CALCIUM 8.5 mg/dl (8.6-10.4)
[2017-12-01] MEDS: Tiotropium 18 mcg Cap For Inhalation INH SCH (07:50)
[2017-12-01] MEDS: Metoprolol Succinate 50 mg XL Tab PO SCH (09:59)
[2017-12-01] MEDS: Ranolazine 500 mg Extended Release Tablets PO SCH (09:59)
[2017-12-01] MEDS ORDERED: Pantoprazole 40 mg EC Tab PO SCH (10:00)
--- NOTE | 2017-12-01 10:09 | CP.PCM.PN ---
Subjective - Date & Time of Evaluation Date of Evaluation: 12/01/17 Time of Evaluation: 10:06 - Subjective Subjective: Pt is stable. Says she does not want to go home Objective - Vital Signs/Intake and Output Vital Signs (last 24 hours): Temp Pulse Resp BP Pulse Ox 98.3 F 68 20 129/72 95 12/01/17 07:00 12/01/17 09:53 12/01/17 09:53 12/01/17 09:56 12/01/17 09:53 Intake and Output: 12/01/17 12/01/17 06:59 18:59 Intake Total 120 Balance 120 - Medications Medications: Current Medications Al Hydrox/Mg Hydrox/Simethicone (Maalox Plus 30 Ml) 30 ml PO Q6 PRN PRN Reason: Indigestion / Heartburn Last Admin: 11/29/17 05:25 Dose: 30 ml Albuterol/Ipratropium (Duoneb 3 Mg/0.5 Mg (3 Ml) Ud) 3 ml INH RQ6 [facility] Last Admin: 12/01/17 07:50 Dose: 3 ml Amlodipine Besylate (Norvasc) 5 mg PO DAILY [facility] Last Admin: 12/01/17 09:59 Dose: 5 mg Aspirin (Ecotrin) 81 mg PO DAILY [facility] Last Admin: 12/01/17 09:59 Dose: 81 mg Clonidine HCl (Catapres) 0.1 mg PO Q8H [facility] Last Admin: 12/01/17 09:59 Dose: 0.1 mg Furosemide (Lasix) 40 mg IVP DAILY [facility] Last Admin: 12/01/17 09:56 Dose: 40 mg Heparin Sodium (Porcine) (Heparin) 5,000 units SC Q12 [facility] Last Admin: 12/01/17 09:55 Dose: 5,000 units Hydralazine HCl (Apresoline) 50 mg PO TID [facility] Last Admin: 11/30/17 18:33 Dose: 50 mg Isosorbide Mononitrate (Imdur) 120 mg PO DAILY [facility] Last Admin: 11/30/17 11:00 Dose: 120 mg Metoprolol Succinate (Toprol Xl) 50 mg PO DAILY [facility] Last Admin: 12/01/17 09:59 Dose: 50 mg Moxifloxacin HCl (Avelox) 400 mg PO DAILY [facility] Last Admin: 12/01/17 09:59 Dose: 400 mg Pantoprazole Sodium (Protonix Ec Tab) 40 mg PO DAILY [facility] Last Admin: 12/01/17 09:59 Dose: 40 mg Ranolazine (Ranexa) 500 mg PO BID [facility] Last Admin: 12/01/17 09:59 Dose: 500 mg Rosuvastatin Calcium (Crestor) 5 mg PO HS [facility] Last Admin: 11/30/17 21:04 Dose: 5 mg Fluticasone/Salmeterol (Advair Diskus 250/50) 1 puff INH RQ12 [facility] Last Admin: 11/30/17 20:40 Dose: Not Given Spironolactone (Aldactone) 25 mg PO DAILY [facility] Last Admin: 12/01/17 09:59 Dose: 25 mg Tiotropium [place] (Spiriva) 18 mcg INH RQ24 [facility] Last Admin: 12/01/17 07:50 Dose: 18 mcg Tramadol HCl (Ultram) 50 mg PO Q8 PRN PRN Reason: breakthrough pain Last Admin: 12/01/17 07:01 Dose: 50 mg - Labs Labs: 12/01/17 06:54 12/01/17 06:54 PT 11.4 SECONDS (9.7-12.2) 11/26/17 08:21 INR 1.0 11/26/17 08:21 - Constitutional Appears: Agitated - Head Exam Head Exam: ATRAUMATIC - Eye Exam Eye Exam: EOMI - ENT Exam ENT Exam: Mucous Membranes Dry - Neck Exam Neck Exam: Full ROM - Respiratory Exam Respiratory Exam: Decreased Breath Sounds, NORMAL BREATHING PATTERN - Cardiovascular Exam Cardiovascular Exam: REGULAR RHYTHM - GI/Abdominal Exam GI & Abdominal Exam: Normal Bowel Sounds - Exam External exam: NORMAL EXTERNAL EXAM - Extremities Exam Extremities Exam: Full ROM, Normal Inspection - Back Exam Back Exam: NORMAL INSPECTION - Neurological Exam Neurological Exam: Alert, Awake, CN II-XII Intact, Oriented x3 - Psychiatric Exam Psychiatric exam: Agitated - Skin Skin Exam: Normal Color Assessment and Plan - Assessment and Plan (Free Text) Assessment: 1. Pt has refractory chf. Refusing echo. At this point, BP is controlled. on correct meds. As cr has gone up to 2.0, will hold aldactone. Will change to po torsemide, stop iv lasix. 2. CAD: L main;l stable 3. Pt is frail, cxr still not clear. Needs cabg, refuses. 4. Pt should consider NH placement but will refuse.
--- NOTE | 2017-12-01 12:55 | PCM.HF ---
Heart Failure Core Measure - Heart Failure Ejection Fraction: 40 % or Greater (NEW ECHO REQUESTED DURING THIS HOSPITALIZATION; PT REFUSED.) AGGIE Inhibitor Prescribed: No Contraindication/Reason for not providing: ON ARB Beta-Jose Prescribed: Metoprolol Succinate Angiotensin II Receptor Jose Prescribed: Yes AnticoagulationTherapy for Atrial Fibrillation/Atrialflutter: No Contraindication/Reason for not providing: NO AFIB Aldosterone Antagonist Prescribed: No Contraindication/Reason for not providing: EF >40 Hydralazine Nitrate Prescribed: No Contraindication/Reason for not providing: EF >40 Implantable Cardioverter Defibrillator Therapy: No Contraindication/Reason for not providing: EF >40 Cardiac Resynchronization Therapy Prescribed: No Contraindication/Reason for not providing: EF >40 - Follow up Will be discharged to: Home Follow Up Date (must be within 7 days from discharge): 12/06/17 Follow Up Time: 09:00
[2017-12-01 14:01] VITALS: TEMP 98.4
[2017-12-01 15:56] VITALS: BP 151/84; PULSE 82; O2SAT 92
--- NOTE | 2017-12-02 04:42 | DS ---
I tried to discharge her yesterday, but Cardiology did not want her to leave, so we kept her another day. I changed all her medications to p.o. I got rid of Rocephin, put her on Avelox p.o., got rid of Protonix IV, made it p.o. Protonix. She is on Ultram and got rid of morphine, everything is the base of medications. She is comfortable in bed. She wants to go to therapy. I think she can be discharged today. going to get. PHYSICAL EXAMINATION: GENERAL: She has 98.4 temp, 68 pulse, 124/67 blood pressure, 20 respiratory rate, 94% O2 sat nasal cannula. She has oxygen at home. HEENT: Head atraumatic, normocephalic. She was alert and comfortable, asking to go home. Throat is moist. NECK: Supple. HEART: Regular rate. LUNGS; Decreased breath sounds, but clear to auscultation. ABDOMEN: Soft, nontender, positive bowel sounds. EXTREMITIES: No edema. LABORATORY DATA: Pending this morning. Yesterday's level included 8.8 white count, 9.7 hemoglobin, 153 platelets, 147 sodium, potassium 3.8, BUN 29, creatinine 1.6, GFR is 32, sugars 119, AST is 14, ALT is 19, alkaline phosphatase 55. I am hoping Cardiology will let me discharge her today. I do not think we will are leaving her much better than this. She does not want CABG surgery, just medical management with medication. She will be back, at which she stopped taking the medications at home once she gets into trouble. I encouraged her to take the medications, especially the Lasix and hopefully should be all right. I spoke to the nurse, who will have the pharmacy call me to go over the medication and hopefully Cardiology will let me discharge her today. ASSESSMENT: Congestive heart failure, abdominal pain. Discharge Discussed with the nurse. John Brown DO [facility]
== END 2017-12-01 15:44 | disposition home or self-care (01) | DRG 291 ==
LOC: C.ER 05:58 → C.9E 10:10 → C.9I 20:15 → C.6T 11-30 01:10
PROVIDERS: ADMIT Family Medicine; ATTEND Family Medicine
PROC: 5A09457 Assistance with Respiratory Ventilation, 24-96 Consecutive Hours, Continuous Positive Airway Pressure (ICD-10-PCS; principal; 2017-11-26)
DX: I13.0 Hypertensive heart and chronic kidney disease with heart failure and stage 1 through stage 4 chronic kidney disease, or unspecified chronic kidney disease (principal); J18.9 Pneumonia, unspecified organism; E11.22 Type 2 diabetes mellitus with diabetic chronic kidney disease; I27.20 Pulmonary hypertension, unspecified; F20.9 Schizophrenia, unspecified; J44.0 Chronic obstructive pulmonary disease with (acute) lower respiratory infection; D64.9 Anemia, unspecified; F03.90 Unspecified dementia, unspecified severity, without behavioral disturbance, psychotic disturbance, mood disturbance, and anxiety; I50.9 Heart failure, unspecified; Z86.73 Personal history of transient ischemic attack (TIA), and cerebral infarction without residual deficits; E78.00 Pure hypercholesterolemia, unspecified; Z85.3 Personal history of malignant neoplasm of breast; M81.0 Age-related osteoporosis without current pathological fracture; N18.9 Chronic kidney disease, unspecified; Z95.5 Presence of coronary angioplasty implant and graft; F17.210 Nicotine dependence, cigarettes, uncomplicated; I77.819 Aortic ectasia, unspecified site; I25.110 Atherosclerotic heart disease of native coronary artery with unstable angina pectoris; K21.9 Gastro-esophageal reflux disease without esophagitis; I73.9 Peripheral vascular disease, unspecified; S31.000A Unspecified open wound of lower back and pelvis without penetration into retroperitoneum, initial encounter; Z86.718 Personal history of other venous thrombosis and embolism; Z99.3 Dependence on wheelchair; I25.2 Old myocardial infarction

== ENCOUNTER 2017-12-01 16:49 | Emergency (ER) | payer MEDICARE ==
[2017-12-01 16:49] VITALS: BMI 17.2
--- NOTE | 2017-12-01 17:04 | C.PDOC ---
History Of Present Illness 72 year old female presents to the ED after being discharged from upstairs 3 after extensive evaluation by cardiology and GI for Chest Pain. Patient states "I didn't want to go home." Patient denies new symptoms, stating "It's still there." "I DIDNT WANT TO GO HOME". [email or web address] SP EXTENSIVE EVAL BY CARDIOLOGY AND GI FOR CP. PT DENIES NEW SX "IT'S STILL THERE" Past Medical History Includes: triple vessel CAD with prior PCI and now recommendation for CABG (pt refusing), peripheral vascular disease, CHF, CKD, severe pulmonary hypertension, COPD, prior CVA, DVT, breast cancer s/p chemotherapy who presented to the hospital with left sided chest pain. The patient was recently admitted at [facility] with NSTEMI, underwent diagnostic catheterization revealing severe triple vessel disease. Patient refusing CABG and being treated medically at present. EXAM NARD LUNGS CTA B/L NO W/R/R SPEAKING FULL SENTENCES REMAINDER NEG Chief Complaint (Nursing): Chest Pain History Per: Patient History/Exam Limitations: no limitations Onset/Duration Of Symptoms: Days Current Symptoms Are (Timing): Still Present Quality: "Pain" Additional History Per: Patient Past Medical History Reviewed: Historical Data, Nursing Documentation, Vital Signs Vital Signs: Last Vital Signs Temp 97.7 F 12/01/17 17:03 Pulse 73 12/01/17 17:03 Resp BP 143/62 12/01/17 17:03 Pulse Ox 100 12/01/17 17:39 - Medical History PMH: Anemia, Anxiety, Arthritis (L ANKLE; B/L HIP), Back Problems, Bronchitis, CAD, CHF, COPD, CVA, Dementia, Deep Vein Thrombosis, Emphysema, Fractures ( Right Hip), HTN, Hypercholesterolemia, Hyperlipidemia, Malignancy (Breast CA left 4 yrs ago, patient in remission, last chemo was 3 years ago), Osteoporosis , Peripheral Edema, Chronic Kidney Disease, Schizophrenia, TIA Surgical History: Coronary Stent - [facility] ANGIOPLASTY OF OTHER NON-CORONARY VESSEL(S) (07/26/12) CONTR CEREBR ARTERIOGRAM (06/25/15) CONTRAST AORTOGRAM (07/26/12) DILATION OF 2 COR ART WITH DRUG-ELUT INTRALUM, PERC APPROACH (10/27/15) DX ULTRASOUND-HEART (04/04/15) EXCISION OF TOE NAIL, EXTERNAL APPROACH (09/17/16) EXERCISE TREATMENT OF MUSCULOSK WHOLE USING ASSIST EQUIPMENT (09/17/16) FLUOROSCOPY OF LEFT HEART USING LOW OSMOLAR CONTRAST (11/16/17) FLUOROSCOPY OF MULT COR ART USING L OSM CONTRAST (11/16/17) GAIT TRAINING/AMBULAT TREATMENT USING ASSIST EQUIPMENT (09/17/16) GROOMING/PERSONAL HYGIENE TREATMENT USING ASSIST EQUIPMENT (09/17/16) INSEJ OF DRUG-ELUTING STENT(S) OF OTH PERIPHERAL VESSEL(S) (07/26/12) INSERTION OF TWO VASCULAR STENTS (07/26/12) INSPECTION OF UPPER INTESTINAL TRACT, ENDO (10/31/16) MEASURE OF CARDIAC SAMPL & PRESSURE, L HEART, PERC APPROACH (11/16/17) PACKED CELL TRANSFUSION (11/06/13) PARTIAL HIP REPLACEMENT (11/06/13) PLAIN RADIOGRAPHY OF LEFT HEART USING LOW OSMOLAR CONTRAST (10/27/15) PLAIN RADIOGRAPHY OF LEFT HEART USING OTHER CONTRAST (06/05/17) PLAIN RADIOGRAPHY OF MULT COR ART USING L OSM CONTRAST (10/27/15) PLAIN RADIOGRAPHY OF MULT COR ART USING OTH CONTRAST (06/05/17) PLAIN RADIOGRAPHY OF R LOW EXTREM VEIN USING OTH CONTRAST (06/05/17) PROCEDURE ON FOUR OR MORE VESSELS (07/26/12) REMOVAL OF VAD FROM UP EXTREM SUBCU/FASCIA, TELEGRAPH DISPATCHER APPROACH (07/06/15) TRANSFUSE NONAUT RED BLOOD CELLS IN PERIPH VEIN, PERC (11/16/17) Family History: States: Unknown Family Hx - Social History Hx Tobacco Use: Yes Hx Alcohol Use: No Hx Substance Use: No - Immunization History Hx Tetanus Toxoid Vaccination: No Hx Influenza Vaccination: No Hx Pneumococcal Vaccination: No Review Of Systems Cardiovascular: Positive for: Chest Pain Physical Exam - Physical Exam Appears: Non-toxic, No Acute Distress Skin: Normal Color, Warm, Dry Head: Atraumatic, Normacephalic Eye(s): bilateral: Normal Inspection Oral Mucosa: Moist Neck: Supple Chest: Symmetrical, No Deformity, No Tenderness Cardiovascular: Rhythm Regular, No Murmur Respiratory: Normal Breath Sounds, No Rales, No Rhonchi, No Wheezing, Other ( clear to auscultation bilaterally, speaking in full sentences ) Extremity: Normal ROM, Capillary Refill (less than 2 seconds ) Neurological/Psych: Oriented x3, Normal Speech, Normal Cognition ED Course And Treatment ECG: Interpreted By Me ECG Rhythm: Sinus Rhythm ECG Interpretation: No Acute Changes Rate From EC O2 Sat by Pulse Oximetry: 100 (on RA) Pulse Ox Interpretation: Normal Progress - Re-Evaluation Re-evaluation Note: 12/01/17 17:23 D/W DR PATE AWARE OF ER FINDIGNS: STATES KEPT 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 PT DOES NOT NEED ADDITIONAL ADMISSION OR TESTING. PT NOW COMPLAINS OF NASAL CONGESTION AND "CRUSTING". STATES SX UNCH SINCE HER INITIAL ADMISSION. ADVISED OF D/W PMD AND WILL BE FOLLOWED UP SCHEDULED. - Data Reviewed Data Reviewed: EKG, Old records Disposition Counseled Patient/Family Regarding: Diagnosis, Need For Followup - Disposition Referrals: John Pate DO [Staff Provider] - Disposition: HOME/ ROUTINE Disposition Time: 17:31 Condition: GOOD Instructions: Chest Pain Forms: [facility] ([place]), General Discharge Instructions - Clinical Impression Clinical Impression: Chronic chest pain - Scribe Statement The provider has reviewed the documentation as recorded by the Scribe (Dorene Medel) Provider Attestation: All medical record entries made by the Scribe were at my direction and personally dictated by me. I have reviewed the chart and agree that the record accurately reflects my personal performance of the history, physical exam, medical decision making, and the department course for this patient. I have also personally directed, reviewed, and agree with the discharge instructions and disposition.
[2017-12-01] MEDS ORDERED: Sodium Chloride 0.9% Inh Soln (3mL) UD INH ONE (17:28)
[2017-12-01 19:20] VITALS: BP 121/74; PULSE 78; RESP 18; TEMP 98.7; O2SAT 92
--- NOTE | 2017-12-04 08:40 | CARD ---
APPROVED REPORT EKG Measurement Heart [id number] <Conclusion> Normal sinus rhythm Nonspecific T wave abnormality Prolonged QT Abnormal ECG
== END 2017-12-01 19:19 | disposition home or self-care (01) ==
LOC: C.ER 16:49
DX: R07.9 Chest pain, unspecified (principal); I25.10 Atherosclerotic heart disease of native coronary artery without angina pectoris; I10 Essential (primary) hypertension; Z86.73 Personal history of transient ischemic attack (TIA), and cerebral infarction without residual deficits; F17.210 Nicotine dependence, cigarettes, uncomplicated

== ENCOUNTER 2017-12-08 23:58 | Inpatient (IN) | payer MEDICARE, OTHER ==
[2017-12-08 23:58] VITALS: BMI 17.0
--- NOTE | 2017-12-09 00:07 | C.PDOC ---
History Of Present Illness Patient presents to ED with complaints of SOB associated with chest discomfort. Denies fever, chills, or any other physical complaints. Patient is speaking in complete sentences. Patient has had similar symptoms in the past. Records show she was hospitalized and had CT done in November. Time Seen by Provider: 12/09/17 00:07 Chief Complaint (Nursing): Shortness Of Breath History Per: Patient History/Exam Limitations: no limitations Onset/Duration Of Symptoms: Hrs Current Symptoms Are (Timing): Still Present Initiating Event: Other Quality: Dull, Pressure Exacerbating Factor(s): Exertion, Laying Flat Current Respiratory Medications: See Home Med List Severity: Moderate Pain Scale Rating Of: 5 Associated Symptoms: Other (chest discomfort). denies: Fever, Chills Reports Recently: Seen In ED, Treated By A Physician, Hospitalized Recent travel outside of the [place]: No Additional History Per: Patient Past Medical History Reviewed: Historical Data, Nursing Documentation, Vital Signs Vital Signs: Last Vital Signs Temp Pulse 89 12/09/17 01:29 Resp 14 12/09/17 01:29 BP 156/71 H 12/09/17 01:29 Pulse Ox 100 12/09/17 01:29 - Medical History PMH: Anemia (blood transfusion), Anxiety, Arthritis (L ANKLE; B/L HIP), Back Problems, Bronchitis, CAD, CHF, COPD, CVA, Dementia, Deep Vein Thrombosis, Emphysema, Fractures (Right Hip), HTN, Hypercholesterolemia, Hyperlipidemia, Malignancy (Breast CA left 4 yrs ago, patient in remission, last chemo was 3 years ago), Osteoporosis, Peripheral Edema, Chronic Kidney Disease, Schizophrenia, TIA Surgical History: Coronary Stent - [facility] Procedures ANGIOPLASTY OF OTHER NON-CORONARY VESSEL(S) (07/26/12) ASSISTANCE WITH RESPIRATORY VENTILATION, 24-96 HRS, CPAP (11/26/17) CONTR CEREBR ARTERIOGRAM (06/25/15) CONTRAST AORTOGRAM (07/26/12) DILATION OF 2 COR ART WITH DRUG-ELUT INTRALUM, PERC APPROACH (10/27/15) DX ULTRASOUND-HEART (04/04/15) EXCISION OF TOE NAIL, EXTERNAL APPROACH (09/17/16) EXERCISE TREATMENT OF MUSCULOSK WHOLE USING ASSIST EQUIPMENT (09/17/16) FLUOROSCOPY OF LEFT HEART USING LOW OSMOLAR CONTRAST (11/16/17) FLUOROSCOPY OF MULT COR ART USING L OSM CONTRAST (11/16/17) GAIT TRAINING/AMBULAT TREATMENT USING ASSIST EQUIPMENT (09/17/16) GROOMING/PERSONAL HYGIENE TREATMENT USING ASSIST EQUIPMENT (09/17/16) INSEJ OF DRUG-ELUTING STENT(S) OF OTH PERIPHERAL VESSEL(S) (07/26/12) INSERTION OF TWO VASCULAR STENTS (07/26/12) INSPECTION OF UPPER INTESTINAL TRACT, ENDO (10/31/16) INTRODUCE OF OTH THERAP SUBST INTO RESP TRACT, VIA OPENING (12/02/17) MEASURE OF CARDIAC SAMPL & PRESSURE, L HEART, PERC APPROACH (11/16/17) PACKED CELL TRANSFUSION (11/06/13) PARTIAL HIP REPLACEMENT (11/06/13) PLAIN RADIOGRAPHY OF LEFT HEART USING LOW OSMOLAR CONTRAST (10/27/15) PLAIN RADIOGRAPHY OF LEFT HEART USING OTHER CONTRAST (06/05/17) PLAIN RADIOGRAPHY OF MULT COR ART USING L OSM CONTRAST (10/27/15) PLAIN RADIOGRAPHY OF MULT COR ART USING OTH CONTRAST (06/05/17) PLAIN RADIOGRAPHY OF R LOW EXTREM VEIN USING OTH CONTRAST (06/05/17) PROCEDURE ON FOUR OR MORE VESSELS (07/26/12) REMOVAL OF VAD FROM UP EXTREM SUBCU/FASCIA, EVENT PRODUCER APPROACH (07/06/15) TRANSFUSE NONAUT RED BLOOD CELLS IN PERIPH VEIN, PERC (11/16/17) Family History: States: No Known Family Hx - Social History Hx Tobacco Use: Yes Hx Alcohol Use: No Hx Substance Use: No - Immunization History Hx Tetanus Toxoid Vaccination: No Hx Influenza Vaccination: No Hx Pneumococcal Vaccination: No Review Of Systems Constitutional: Negative for: Fever, Chills Eyes: Negative for: Redness ENT: Negative for: Throat Pain Cardiovascular: Positive for: Chest Pain, Other (chest discomfort) Respiratory: Positive for: Shortness of Breath Gastrointestinal: Negative for: Nausea, Vomiting, Diarrhea Musculoskeletal: Negative for: Back Pain Skin: Negative for: Rash Neurological: Negative for: Weakness, Numbness Psych: Negative for: Anxiety Physical Exam - Physical Exam Appears: Non-toxic Skin: Warm, Dry Head: Normacephalic Eye(s): bilateral: Normal Inspection Oral Mucosa: Moist Neck: Supple Chest: Symmetrical, No Tenderness Cardiovascular: Rhythm Regular Respiratory: Decreased Breath Sounds, Rales (bilaterally at bases ) Gastrointestinal/Abdominal: No Bowel Sounds, Soft, No Tenderness, No Distention , No Guarding, No Rebound Back: No CVA Tenderness Extremity: No Tenderness, No Pedal Edema Extremity: Bilateral: Atraumatic, Normal Color And Temperature, Normal ROM Pulses: Left Dorsalis Pedis: Normal, Right Dorsalis Pedis: Normal Neurological/Psych: Oriented x3, Normal Speech, Normal Cognition Gait: Steady ED Course And Treatment - Laboratory Results Result Diagrams: 12/09/17 00:22 12/09/17 00:22 ECG: Interpreted By Me, Viewed By Me ECG Rhythm: Sinus Rhythm (94), Nonspecific Changes (unchanged from 11/18/17) O2 Sat by Pulse Oximetry: 95 Pulse Ox Interpretation: Normal - Radiology CXR: Interpreted by Me, Viewed By Me CXR Interpretation: Yes: Other (chf, ? b/l effusions). No: Infiltrates, Fracture, Pnemothorax Progress Note: Administered Albuterol neuvulizer treatment. Ordered BG, EKG, and CXR. Disposition Discussed With DrRonda: John Brown Comment: accepted the pt on his service and took over the care at 3:19 AM Counseled Patient/Family Regarding: Studies Performed, Diagnosis - Disposition Disposition: HOSPITALIZED Disposition Time: 00:07 Condition: FAIR Forms: [employer] (Andorran) - POA Present On Arrival: Poor Glycemic Control - Clinical Impression Clinical Impression: Dyspnea, CHF (congestive heart failure), Non-ST elevated myocardial infarction (non-STEMI) - Scribe Statement The provider has reviewed the documentation as recorded by the Scribe Lm Del Cid All medical record entries made by the Scribe were at my direction and personally dictated by me. I have reviewed the chart and agree that the record accurately reflects my personal performance of the history, physical exam, medical decision making, and the department course for this patient. I have also personally directed, reviewed, and agree with the discharge instructions and disposition. Decision To Admit - Pt Status Changed To: Hospital Disposition Of: Inpatient - Admit Certification Admit to Inpatient:: After my assessment, the patient will require hospitalization for at least two midnights. This is because of the severity of symptoms shown, intensity of services needed, and/or the medical risk in this patient being treated as an outpatient. - InPatient: Physician Admission Certification: I certify that this patient requires 2 or more midnights of care for the following reason:: After my assessment, the patient will require hospitalization for at least two midnights. This is because of the severity of symptoms shown, intensity of services needed, and/or the medical risk in this patient being treated as an outpatient. - . Bed Request Type: Telemetry Admitting Physician: John Brown Patient Diagnosis: Dyspnea, CHF (congestive heart failure), Non-ST elevated myocardial infarction (non-STEMI)
[2017-12-09] MEDS ORDERED: Albuterol 0.083% Inhal Sol (2.5 mg/3 mL) UD ONE ×2 (00:15→00:45)
[2017-12-09 00:30] LABS: NRBC % 0.1 % (0.0-2.0); WHITE BLOOD COUNT 5.4 K/uL (4.8-10.8)
[2017-12-09 00:49] LABS: INR 1.5; PROTHROMBIN TIME 17.3 SECONDS (9.7-12.2)
[2017-12-09 00:50] LABS: BASO % 0.6 % (0.0-2.0); EOS % 0.1 % (0.0-4.0); HEMOGLOBIN 12.2 g/dL (11.0-16.0); LYMPH # 0.4 K/uL (1.0-4.3); LYMPH % 8.2 % (20.0-40.0); MEAN CELL VOLUME 82.1 fL (81.0-99.0); MEAN CORPUSCULAR HEMOGLOBIN 27.5 pg (27.0-31.0); MEAN CORPUSCULAR HGB CONC 33.5 g/dL (33.0-37.0); MEAN PLATELET VOLUME 10.3 fL (7.2-11.7); MONO # 0.3 K/uL (0.0-0.8); MONO % 6.1 % (0.0-10.0); NEUT # 4.6 K/uL (1.8-7.0); PLATELET COUNT 149 K/uL (130-400); RBC 4.43 Mil/uL (3.80-5.20); RED CELL DISTRIBUTION WIDTH 21.7 % (11.5-14.5)
[2017-12-09] MEDS: Albuterol-Ipratrop 3 mg / 0.5 (3 ml) UD IH SCH ×3 (00:50→01:17)
[2017-12-09 01:00] LABS: ABG ALLEN TEST POSITIVE; ARTERIAL BLOOD GAS HCO3 23.7 mmol/L (21-28); ARTERIAL BLOOD GAS O2 SAT 99.5 % (95-98); ARTERIAL BLOOD GAS PCO2 31 mm/Hg (35-45); ARTERIAL BLOOD GAS PH 7.45 (7.35-7.45); ARTERIAL BLOOD GAS PO2 175 mm/Hg (80-100); ARTERIAL BLOOD GAS TCO2 22.5 mmol/L (22-28)
[2017-12-09 01:02] LABS: ALB/GLOB RATIO 1.6 (1.0-2.1); ALBUMIN 3.8 g/dL (3.5-5.0); CALCIUM 8.4 mg/dl (8.6-10.4); TROPONIN I 1.2 ng/mL (0.00-0.120)
[2017-12-09 02:57] LABS: ANISOCYTOSIS SLIGHT; BANDS 1 % (0-2); LYMPHOCYTE 8 % (20-40); MONOCYTE 6 % (0-10); NEUTROPHIL 85 % (50-75); PLATELET ESTIMATE NORMAL (NORMAL); POIKILOCYTOSIS SLIGHT; TOTAL CELLS COUNTED 100
[2017-12-09] MEDS ORDERED: NAPROXEN 375 MG PO PRN (03:26)
[2017-12-09] MEDS ORDERED: Enoxaparin 150 mg Syringe SC SCH (04:15)
--- NOTE | 2017-12-09 08:31 | RAD ---
HISTORY: SOB COMPARISON: Chest x-ray performed 11/30/17 TECHNIQUE: Chest, one view. FINDINGS: Examination limited by patient obliquity. Patient's chin obscures evaluation of the lung apices, in particular the right lung apex. LUNGS: Moderate pulmonary venous congestion. Bilateral pleural effusions and associated consolidations. Right hilar prominence/contour of the right heart contour. No definite pneumothorax. Please note that chest x-ray has limited sensitivity for the detection of pulmonary masses. CARDIOVASCULAR: Cardiomegaly. Ectatic aorta. Atherosclerotic calcifications of the aorta. OSSEOUS STRUCTURES: Osseous demineralization. Degenerative changes. VISUALIZED UPPER ABDOMEN: Unremarkable. OTHER FINDINGS: None. IMPRESSION: Moderate pulmonary venous congestion. Bilateral pleural effusions and associated consolidations. Right hilar prominence/contour of the right heart contour.
[2017-12-09] MEDS: Metoprolol Succinate 25 mg XL Tab PO SCH (09:26)
[2017-12-09] MEDS: Ranolazine 500 mg Extended Release Tablets PO SCH ×2 (09:26→17:15)
[2017-12-09] MEDS ORDERED: diltiaZEM 120 mg/24 Hours CD Cap PO SCH (10:00)
[2017-12-09 10:58] LABS: SQUAMOUS EPITHIAL 2 /hpf (0-5); URINE BILIRUBIN NEGATIVE (NEGATIVE); URINE BLOOD NEGATIVE (NEGATIVE); URINE CLARITY Clear (Clear); URINE COLOR Yellow (YELLOW); URINE GLUCOSE (UA) NORMAL (Normal); URINE LEUKOCYTE ESTERASE NEG Leu/uL (Negative); URINE PROTEIN 2+ mg/dL (NEGATIVE); URINE UROBILINOGEN NORMAL mg/dL (0.2-1.0)
[2017-12-09] MEDS ORDERED: Naproxen 275 mg Tab PO PRN (12:30)
[2017-12-09] MEDS: (Novolin R) Insulin Human Regular 100 units/ml vial SC SCH ×3 (12:34→21:41)
--- NOTE | 2017-12-09 13:56 | CP.PCM.CON ---
History of Present Illness - History of Present Illness History of Present Illness: The pt is a 72 year old woman with CAD (le main and three vessel) by Dr Blanco at [facility]. Pt has been bouncing back between [facility] and [facility] , with dyspnea and chest pressure. Pt had a stent several years ago, and a femoral stent as well. She is a lifelong smoker. Pt has refused echo, and has refractory CHF. She had brief ATN her last visit at , now resolved. Pt now has had small, non stemi. She says today that she will agree ti CABG, but just refused at [facility]. Dr Blanco writes in his note that she had been accepted at [facility]. CXR shows chf. BP is low on meds. Previously hard to control. Review of Systems - Review of Systems All systems: reviewed and no additional remarkable complaints except (as abov.e) Past Patient History - Infectious Disease Hx of Infectious Diseases: None - Tetanus Immunizations Tetanus Immunization: Unknown - Past Medical History & Family History Past Medical History?: Yes - Past Social History Smoking Status: Former Smoker - CARDIAC Hx Cardiac Disorders: Yes Hx Congestive Heart Failure: Yes Hx Hypercholesterolemia: Yes Hx Hypertension: Yes Hx Peripheral Edema: Yes - PULMONARY Hx Respiratory Disorders: Yes Hx Bronchitis: Yes Hx Chronic Obstructive Pulmonary Disease (COPD): Yes Hx Emphysema: Yes - NEUROLOGICAL Hx Neurological Disorder: Yes Hx Dementia: Yes Hx Transient Ischemic Attacks (TIA): Yes - HEENT Hx HEENT Problems: Yes 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) - RENAL Hx Chronic Kidney Disease: Yes - ENDOCRINE/METABOLIC Hx Endocrine Disorders: Yes Hx Diabetes Mellitus Type 2: Yes - HEMATOLOGICAL/ONCOLOGICAL Hx Anemia: Yes (blood transfusion) - INTEGUMENTARY Hx Dermatological Problems: No - MUSCULOSKELETAL/RHEUMATOLOGICAL Hx Musculoskeletal Disorders: No Hx Falls: No - GASTROINTESTINAL Hx Gastrointestinal Disorders: Yes Hx Gastroesophageal Reflux: Yes - GENITOURINARY/GYNECOLOGICAL Hx Genitourinary Disorders: No - PSYCHIATRIC Hx Psychophysiologic Disorder: Yes Hx Schizophrenia: Yes Hx Substance Use: No - SURGICAL HISTORY Hx Surgeries: Yes Hx Coronary Stent: Yes - ANESTHESIA Hx Anesthesia: Yes Hx Anesthesia Reactions: No Hx Malignant Hyperthermia: No Meds Allergies/Adverse Reactions: Allergies Allergy/AdvReac Type Severity Reaction Status Date / Time iodine Allergy Severe ANAPHYLAXIS Verified 12/09/17 00:05 iv dye Allergy Severe ANAPHYLAXIS Uncoded 12/09/17 00:05 - Medications Medications: Current Medications Aspirin (Ecotrin) 81 mg PO DAILY [facility] Last Admin: 12/09/17 09:26 Dose: 81 mg Clonidine HCl (Catapres) 0.1 mg PO Q8H [facility] Last Admin: 12/09/17 12:46 Dose: 0.1 mg Diltiazem HCl (Cardizem Cd) 120 mg PO DAILY [facility] Last Admin: 12/09/17 09:25 Dose: 120 mg Enoxaparin Sodium (Lovenox) 45 mg SC Q12H [facility] Famotidine (Pepcid) 20 mg PO DAILY [facility] Last Admin: 12/09/17 09:25 Dose: 20 mg Furosemide (Lasix) 40 mg IVP DAILY [facility] Last Admin: 12/09/17 09:25 Dose: 40 mg Hydralazine HCl (Apresoline) 75 mg PO TID [facility] Last Admin: 12/09/17 09:26 Dose: 75 mg Insulin Human Regular (Novolin R) 0 unit SC ACHS [facility] Last Admin: 12/09/17 12:34 Dose: Not Given Losartan Potassium (Cozaar) 100 mg PO DAILY [facility] Metoprolol Succinate (Toprol Xl) 25 mg PO DAILY [facility] Last Admin: 12/09/17 09:26 Dose: 25 mg Naproxen (Anaprox) 275 mg PO BID PRN PRN Reason: pain Last Admin: 12/09/17 12:45 Dose: 275 mg Pneumococcal Polyvalent Vaccine (Pneumovax 23 Vaccine) 0.5 ml IM .ONCE ONE Stop: 12/11/17 14:01 Ranolazine (Ranexa) 500 mg PO BID [facility] Last Admin: 12/09/17 09:26 Dose: 500 mg Fluticasone/Salmeterol (Advair Diskus 250/50) 1 puff INH RQ12 [facility] Tiotropium [place] (Spiriva) 18 mcg INH RQ24 [facility] Physical Exam - Constitutional Appears: Cachectic, Chronically Ill - Head Exam Head Exam: ATRAUMATIC - Eye Exam Eye Exam: EOMI - ENT Exam ENT Exam: Mucous Membranes Dry - Neck Exam Neck exam: Positive for: Full Rom - Respiratory Exam Respiratory Exam: Decreased Breath Sounds, Wheezes - Cardiovascular Exam Cardiovascular Exam: REGULAR RHYTHM - GI/Abdominal Exam GI & Abdominal Exam: Normal Bowel Sounds - Extremities Exam Extremities exam: Positive for: normal inspection - Back Exam Back exam: NORMAL INSPECTION Results - Vital Signs Recent Vital Signs: Last Vital Signs Temp 97.5 F L 12/09/17 05:00 Pulse 63 12/09/17 08:12 Resp 22 12/09/17 05:12 BP 147/69 12/09/17 09:25 Pulse Ox 97 12/09/17 05:00 - Labs Result Diagrams: 12/09/17 00:22 12/09/17 00:22 Labs: Laboratory Results - last 24 hr 12/09/17 12/09/17 12/09/17 00:22 00:22 00:22 WBC 5.4 RBC 4.43 Hgb 12.2 D Hct 36.4 MCV 82.1 MCH 27.5 MCHC 33.5 RDW 21.7 H Plt Count 149 MPV 10.3 Neut % (Auto) 85.0 H Lymph % (Auto) 8.2 L [place] % (Auto) 6.1 Eos % (Auto) 0.1 Baso % (Auto) 0.6 Neut # (Auto) 4.6 Lymph # (Auto) 0.4 L [place] # (Auto) 0.3 Eos # (Auto) 0.0 Baso # (Auto) 0.0 Neutrophils % (Manual) 85 H Band Neutrophils % 1 Lymphocytes % (Manual) 8 L Monocytes % (Manual) 6 Platelet Estimate Normal Poikilocytosis (manual Slight Anisocytosis (manual) Slight PT 17.3 H INR 1.5 APTT 34 Puncture Site pCO2 pO2 HCO3 ABG pH ABG Total CO2 ABG O2 Saturation ABG Base Excess Randy Test ABG Potassium A-a O2 Difference Respiratory Index Glucose Lactate FiO2 Sodium 138 Potassium 5.2 Chloride 94 L Carbon Dioxide 24 Anion Gap 25 H BUN 36 H Creatinine 1.2 Est GFR ( Amer) 53 Est GFR (Non-Af Amer) 44 POC Glucose (mg/dL) Random Glucose 162 H Calcium 8.4 L Total Bilirubin 0.8 AST 264 H D ALT 176 H D Alkaline Phosphatase 66 Troponin I 1.2000 H* NT-Pro-B Natriuret Pep 802817 H Total Protein 6.3 Albumin 3.8 Globulin 2.4 Albumin/Globulin Ratio 1.6 Arterial Blood Potassium Urine Color Urine Clarity Urine pH Ur Specific [place] Urine Protein Urine Glucose (UA) Urine Ketones Urine Blood Urine Nitrate Urine Bilirubin Urine Urobilinogen Ur Leukocyte Esterase Urine WBC (Auto) Urine RBC (Auto) Ur Squamous Epith Cells Hyaline Casts 12/09/17 12/09/17 12/09/17 00:50 07:00 10:10 WBC RBC Hgb Hct MCV MCH MCHC RDW Plt Count MPV Neut % (Auto) Lymph % (Auto) [place] % (Auto) Eos % (Auto) Baso % (Auto) Neut # (Auto) Lymph # (Auto) [place] # (Auto) Eos # (Auto) Baso # (Auto) Neutrophils % (Manual) Band Neutrophils % Lymphocytes % (Manual) Monocytes % (Manual) Platelet Estimate Poikilocytosis (manual Anisocytosis (manual) PT INR APTT Puncture Site Rr pCO2 31 L pO2 175 H HCO3 23.7 ABG pH 7.45 ABG Total CO2 22.5 ABG O2 Saturation 99.5 H ABG Base Excess -1.6 Randy Test Positive ABG Potassium 3.4 L A-a O2 Difference 499.0 Respiratory Index 2.9 Glucose 177 H Lactate 1.6 FiO2 100.0 Sodium 140.0 Potassium Chloride 107.0 Carbon Dioxide Anion Gap BUN Creatinine Est GFR ( Amer) Est GFR (Non-Af Amer) POC Glucose (mg/dL) Random Glucose Calcium Total Bilirubin AST ALT Alkaline Phosphatase Troponin I 1.4200 H* NT-Pro-B Natriuret Pep Total Protein Albumin Globulin Albumin/Globulin Ratio Arterial Blood Potassium 3.4 L Urine Color Yellow Urine Clarity Clear Urine pH 5.0 Ur Specific [place] 1.011 Urine Protein 2+ H Urine Glucose (UA) Normal Urine Ketones Negative Urine Blood Negative Urine Nitrate Negative Urine Bilirubin Negative Urine Urobilinogen Normal Ur Leukocyte Esterase Neg Urine WBC (Auto) 1 Urine RBC (Auto) < 1 Ur Squamous Epith Cells 2 Hyaline Casts 3-5 H 12/09/17 12/09/17 11:19 12:31 WBC RBC Hgb Hct MCV MCH MCHC RDW Plt Count MPV Neut % (Auto) Lymph % (Auto) [place] % (Auto) Eos % (Auto) Baso % (Auto) Neut # (Auto) Lymph # (Auto) [place] # (Auto) Eos # (Auto) Baso # (Auto) Neutrophils % (Manual) Band Neutrophils % Lymphocytes % (Manual) Monocytes % (Manual) Platelet Estimate Poikilocytosis (manual Anisocytosis (manual) PT INR APTT Puncture Site pCO2 pO2 HCO3 ABG pH ABG Total CO2 ABG O2 Saturation ABG Base Excess Randy Test ABG Potassium A-a O2 Difference Respiratory Index Glucose Lactate FiO2 Sodium Potassium Chloride Carbon Dioxide Anion Gap BUN Creatinine Est GFR ( Amer) Est GFR (Non-Af Amer) POC Glucose (mg/dL) 136 H Random Glucose Calcium Total Bilirubin AST ALT Alkaline Phosphatase Troponin I 1.7600 H* NT-Pro-B Natriuret Pep Total Protein Albumin Globulin Albumin/Globulin Ratio Arterial Blood Potassium Urine Color Urine Clarity Urine pH Ur Specific [place] Urine Protein Urine Glucose (UA) Urine Ketones Urine Blood Urine Nitrate Urine Bilirubin Urine Urobilinogen Ur Leukocyte Esterase Urine WBC (Auto) Urine RBC (Auto) Ur Squamous Epith Cells Hyaline Casts - EKG Data EKG Interpreted by: Myself EKG shows normal: Sinus rhythm (st depression) Assessment & Plan - Assessment and Plan (Free Text) Assessment: 1. Acute non stemi: pt now says that she will agree to surgeyr. She refused up to this poing, and recently again after surgery ws arranged. I will discuss with Dr Brown. If p doesn/t change her mind, she can go to [facility] as planned. 2. CHF: dieresis. Caution nsaid use. 3. asa, lovenox. Will not give plavix if cabg is to occur. beta natalee.
[2017-12-09] MEDS: Enoxaparin 60 mg Syringe SC SCH (17:13)
[2017-12-09] MEDS: Fluticasone-Salmeterol 250-50mcg Diskus INH SCH (20:47)
[2017-12-10] MEDS: Enoxaparin 60 mg Syringe SC SCH ×2 (03:47→17:00)
[2017-12-10] MEDS: (Novolin R) Insulin Human Regular 100 units/ml vial SC SCH ×4 (07:55→22:00)
[2017-12-10 08:13] LABS: HEMOGLOBIN 11.3 g/dL (11.0-16.0); MEAN CELL VOLUME 81.7 fL (81.0-99.0); MEAN PLATELET VOLUME 11.2 fL (7.2-11.7); RBC 4.18 Mil/uL (3.80-5.20); RED CELL DISTRIBUTION WIDTH 21.9 % (11.5-14.5); WHITE BLOOD COUNT 3.6 K/uL (4.8-10.8)
[2017-12-10] MEDS: Fluticasone-Salmeterol 250-50mcg Diskus INH SCH ×2 (08:30→19:30)
[2017-12-10] MEDS: Tiotropium 18 mcg Cap For Inhalation INH SCH (08:30)
[2017-12-10 08:45] LABS: ALB/GLOB RATIO 1.4 (1.0-2.1); ALBUMIN 3.4 g/dL (3.5-5.0); CALCIUM 8.7 mg/dl (8.6-10.4); TROPONIN I 1.81 ng/mL (0.00-0.120)
[2017-12-10] MEDS: Metoprolol Succinate 25 mg XL Tab PO SCH (09:25)
[2017-12-10] MEDS: Ranolazine 500 mg Extended Release Tablets PO SCH ×2 (09:26→17:47)
[2017-12-10] MEDS: Pantoprazole 40 mg EC Tab PO SCH (09:30)
--- NOTE | 2017-12-10 12:41 | PN ---
DATE: SUBJECTIVE: She is resting comfortably in bed this morning. She is having NSTEMI. She had been and refused open heart surgery, history of peripheral vascular disease. She is having some stomach upset. I will add Protonix to her Pepcid. She is on Advair, Apresoline, aspirin, Cozaar, Ecotrin, Imdur, she is just on Lasix 40 IV, Lovenox, morphine, insulin, Pepcid, Protonix, now Ranexa, Spiriva, and Toprol. PHYSICAL EXAMINATION: VITAL SIGNS: She has a 97.8 temperature, 53 pulse, 114/62 blood pressure, 20 respiratory rate, 98% O2 saturation on 2 L. HEENT: Head is atraumatic and normocephalic. She is alert and talking, a little bit confused. HEART: Regular rate. LUNGS: Decreased breath sounds. ABDOMEN: Soft, nontender. Positive bowel sounds. No guarding. No rebound. No CVA tenderness. EXTREMITIES: No edema at this time. LABORATORY DATA: She has a 3.6 white count, 11.3 hemoglobin, 34.2 hematocrit, 142 platelets. INR is 1.5. She has a 138 sodium, potassium 5.2, BUN 36, creatinine 1.2, sugar is 162, calcium is 8.4, total bili is 0.8, AST is 264, ALT is 176, alk phos is 56. Troponins are 1.2, 1.4, and 1.7. She is having an NSTEMI and also CHF with 1009 BNP. She is being seen by Dr. Kinney, cook short order. We will continue with aggressive treatment and care with Dr. Kinney and discuss with her about hospice and palliative care. He has no more treatment for elevated troponins, to keep her as comfortable as possible. John Brown DO MTDD
[2017-12-11] MEDS: Enoxaparin 60 mg Syringe SC SCH (03:24)
[2017-12-11] MEDS: (Novolin R) Insulin Human Regular 100 units/ml vial SC SCH ×4 (08:22→21:21)
--- NOTE | 2017-12-11 09:51 | HP ---
HISTORY OF PRESENT ILLNESS: I know Kathy from many years, we had her at [facility] after which she was in [facility]. We convinced her to try and get an open heart surgery for the triple-vessel disease that she has and she agrees. She wanted to go to [facility], she went there, agreed for the surgery, then 8 hours later she refused and then she agreed and then when take her down, she refused. She has triple vessel coronary artery disease and she went home for, maybe, 2 hours and called 911, ended up back in [facility] Emergency Room, she cannot live home anymore. Within two to three hours of being home, she did not take any medications and she got chest pain and shortness of breath and called 911. She has done this probably 15 times in the past 6 months. She goes from [place] to [facility] and ending up at [facility]. She will get short of breath with chest pain, she comes in always having positive troponins, and she has had multiple NSTEMIs. PAST MEDICAL HISTORY: Anemia, blood transfusions, anxiety, arthritis of left ankle, bilateral hip surgeries, back problems, bronchitis, coronary artery disease, CHF, COPD, CVA, dementia, deep vein thrombosis, emphysema. She still smokes, fractures of right hip, hypertension, high cholesterol, malignancy of the breast four years ago, in remission, she had chemo 3 years ago, osteoporosis, peripheral edema, chronic kidney disease, schizophrenia, and TIA. She has coronary stents, needs more. She had angioplasties. She had been on the ventilator. She has had arteriograms, dilatation of coronary arteries, ultrasounds, fluoroscopies. She physical therapy for gait training, I do not know days yet, but she has done so many subacute rehab stays and then just signing up before she finishes the complete physical therapy and never gets the 100% and then goes back to the hospital again, and debility. FAMILY HISTORY: No know family history. She still smokes. No alcohol. No drugs. REVIEW OF SYSTEMS: A 72-year-old, very noncompliant, agitated patient. Very severe coronary artery disease. No acute vision changes or hearing changes. No sore throat. She has chest pain. She has chest discomfort. She has shortness of breath. No nausea, vomiting, constipation, diarrhea. No back pain, no rashes, no ulcers that she could appreciate. She is nervous, she is anxious, and then she is not nervous and she is not anxious overall with the place. She is weak, she probably could use 6 weeks of very intensive physical therapy, but she has enough time for it and not insurance. She is anxious. PHYSICAL EXAMINATION: GENERAL: She is resting comfortably in bed with oxygen on, likes being in the hospital, she is comfortable here. Nontoxic at this time. No apparent shortness of breath or chest pain. VITAL SIGNS: Temperature 97.5, pulse 75, blood pressure 151/74, respiratory rate 20, and O2 saturation on oxygen 97%. SKIN: Warm and dry. HEENT: Head is normocephalic, atraumatic. Extraocular muscles are intact. Throat is moist. NECK: Supple. HEART: Regular rate. LUNGS: Decreased breath sounds bilaterally with poor inspiration. ABDOMEN: Soft, nontender, positive bowel sounds. EXTREMITIES: No edema at this time. ENDOSCOPY SPECIALTY TECHNICIAN: She is hard of hearing. She is oriented x3. Speech is normal. Gait is poor. LABORATORY DATA: She had multiple tests. She has sodium 138, potassium 5.2, BUN 36, creatinine 1.2, GFR 44, sugar is 162, calcium is 8.4, AST is 264, ALT is 176, alk phos 56. Troponin I is 1.2, elevated. BNP is 109,000. Total protein 6.3, lactate is 1.6. INR is 1.5. She has white count 5.4, hemoglobin 12.2, hematocrit 36.4 with platelets 149. IMPRESSION: We will consult Dr. Moran, the crm dynamics developer, who knows her. I have called in case management for possible nursing placement at a cardiac alf. She has oxygen, she has insulin coverage, back on her regular medications, physical therapy. She is having an nonST elevated myocardial infarction, which is her baseline. I will continue aggressive treatment and care, and she refused to have open heart surgery to fix her problem. John Brown DO [facility]AD[facility] CAMPUSJeaneth
[2017-12-11] MEDS: Fluticasone-Salmeterol 250-50mcg Diskus INH SCH ×2 (09:56→19:22)
[2017-12-11] MEDS: Tiotropium 18 mcg Cap For Inhalation INH SCH (09:56)
[2017-12-11] MEDS: Metoprolol Succinate 25 mg XL Tab PO SCH (10:58)
[2017-12-11] MEDS: Ranolazine 500 mg Extended Release Tablets PO SCH ×3 (11:00→18:55)
[2017-12-11] MEDS: Pantoprazole 40 mg EC Tab PO SCH (11:00)
[2017-12-11] MEDS: Ergocalciferol 50,000 Intl Units Cap PO SCH (11:22)
[2017-12-11 11:32] LABS: HEMOGLOBIN 12.1 g/dL (11.0-16.0); MEAN CELL VOLUME 80.8 fL (81.0-99.0); MEAN CORPUSCULAR HEMOGLOBIN 26.8 pg (27.0-31.0); MEAN CORPUSCULAR HGB CONC 33.1 g/dL (33.0-37.0); MEAN PLATELET VOLUME 10.7 fL (7.2-11.7); RBC 4.51 Mil/uL (3.80-5.20); RED CELL DISTRIBUTION WIDTH 21.7 % (11.5-14.5); WHITE BLOOD COUNT 3.8 K/uL (4.8-10.8)
[2017-12-11 11:40] LABS: ALB/GLOB RATIO 1.4 (1.0-2.1); ALBUMIN 3.5 g/dL (3.5-5.0); CALCIUM 8.6 mg/dl (8.6-10.4)
--- NOTE | 2017-12-11 12:57 | CP.PCM.CON ---
<Leland Medel - Last Filed: 12/11/17 13:03> History of Present Illness - History of Present Illness History of Present Illness: PGY4 Initial GI Consult Patient is a 72yo female with triple vessel CAD with prior PCI and now recommendation for CABG (pt refusing?), peripheral vascular disease, CHF, CKD, severe pulmonary hypertension, COPD, prior CVA, DVT, breast cancer s/p chemotherapy who presented to the hospital with left sided chest pain and and pain. The patient was recently admitted at [facility] with NSTEMI, underwent diagnostic catheterization revealing severe triple vessel disease. Patient refusing CABG and being treated medically at present. She returned to the hospital with recurrence of left sided chest pain and complaint of chronic, long -standing abdominal pain. She states abdominal pain is worse with deep inspiration and does not change with defecation or PO intake. Pt was apparently about to go to the OR at [facility] for cabg and refused right before. At this time, she again presents with elevated troponins. Pt is still confused and unsure of next steps. Patient admits to prior endoscopy and colonoscopy. PMHx: See HPI PSHx: Right hip, PCIx4, carotid stent, Port-a-cath insertion/removal, aortoiliac stent placement FHx: Discussed with patient and she denies any pertinent history Social: +tobacco use daily, +EtOH weekly, denies illicit drug use Endo: EGD 11/2016 - hiatal hernia, otherwise unremarkable 12 system ROS performed and negative except where stated Past Patient History - Infectious Disease Hx of Infectious Diseases: None - Tetanus Immunizations Tetanus Immunization: Unknown - Past Medical History & Family History Past Medical History?: Yes - Past Social History Smoking Status: Former Smoker - CARDIAC Hx Cardiac Disorders: Yes Hx Congestive Heart Failure: Yes Hx Hypercholesterolemia: Yes Hx Hypertension: Yes Hx Peripheral Edema: Yes - PULMONARY Hx Respiratory Disorders: Yes Hx Bronchitis: Yes Hx Chronic Obstructive Pulmonary Disease (COPD): Yes Hx Emphysema: Yes - NEUROLOGICAL Hx Neurological Disorder: Yes Hx Dementia: Yes Hx Transient Ischemic Attacks (TIA): Yes - HEENT Hx HEENT Problems: Yes 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) - RENAL Hx Chronic Kidney Disease: Yes - ENDOCRINE/METABOLIC Hx Endocrine Disorders: Yes Hx Diabetes Mellitus Type 2: Yes - HEMATOLOGICAL/ONCOLOGICAL Hx Anemia: Yes (blood transfusion) - INTEGUMENTARY Hx Dermatological Problems: No - MUSCULOSKELETAL/RHEUMATOLOGICAL Hx Musculoskeletal Disorders: No Hx Falls: No - GASTROINTESTINAL Hx Gastrointestinal Disorders: Yes Hx Gastroesophageal Reflux: Yes - GENITOURINARY/GYNECOLOGICAL Hx Genitourinary Disorders: No - PSYCHIATRIC Hx Psychophysiologic Disorder: Yes Hx Schizophrenia: Yes Hx Substance Use: No - SURGICAL HISTORY Hx Surgeries: Yes Hx Coronary Stent: Yes - ANESTHESIA Hx Anesthesia: Yes Hx Anesthesia Reactions: No Hx Malignant Hyperthermia: No Meds Allergies/Adverse Reactions: Allergies Allergy/AdvReac Type Severity Reaction Status Date / Time iodine Allergy Severe ANAPHYLAXIS Verified 12/09/17 00:05 iv dye Allergy Severe ANAPHYLAXIS Uncoded 12/09/17 00:05 - Medications Medications: Current Medications Alprazolam (Xanax) 0.25 mg PO Q8H [facility] Stop: 12/18/17 12:31 Aspirin (Ecotrin) 81 mg PO DAILY [facility] Last Admin: 12/11/17 11:00 Dose: 81 mg Enoxaparin Sodium (Lovenox) 45 mg SC Q12H [facility] Last Admin: 12/11/17 03:24 Dose: 45 mg Ergocalciferol (Drisdol 50,000 Intl Units Cap) 1 cap PO Q7D [facility] Last Admin: 12/11/17 11:22 Dose: 1 cap Famotidine (Pepcid) 20 mg PO DAILY [facility] Ferrous Gluconate (Fergon) 324 mg PO TID [facility] Furosemide (Lasix) 20 mg IVP DAILY [facility] Last Admin: 12/11/17 11:00 Dose: 20 mg Hydralazine HCl (Apresoline) 75 mg PO TID [facility] Last Admin: 12/10/17 17:46 Dose: 75 mg Insulin Human Regular (Novolin R) 0 unit SC ACHS [facility] PRN Reason: Protocol Last Admin: 12/11/17 11:32 Dose: Not Given Isosorbide Mononitrate (Imdur) 60 mg PO DAILY [facility] Last Admin: 12/11/17 10:55 Dose: 60 mg Metoprolol Succinate (Toprol Xl) 25 mg PO DAILY [facility] Last Admin: 12/11/17 10:58 Dose: 25 mg Morphine Sulfate (Morphine) 2 mg IVP Q3 PRN PRN Reason: Pain, moderate (4-7) Last Admin: 12/11/17 02:06 Dose: 2 mg Pantoprazole Sodium (Protonix Ec Tab) 40 mg PO DAILY [facility] Last Admin: 12/11/17 11:00 Dose: 40 mg Pneumococcal Polyvalent Vaccine (Pneumovax 23 Vaccine) 0.5 ml IM .ONCE ONE Stop: 12/11/17 14:01 Ranolazine (Ranexa) 500 mg PO BID [facility] Last Admin: 12/11/17 11:00 Dose: 500 mg Fluticasone/Salmeterol (Advair Diskus 250/50) 1 puff INH RQ12 [facility] Last Admin: 12/11/17 09:56 Dose: Not Given Tiotropium [place] (Spiriva) 18 mcg INH RQ24 [facility] Last Admin: 12/11/17 09:56 Dose: Not Given Vitamin B Complex/Vit C/Folic Acid (Nephro-Karolyn) 1 tab PO 0800 [facility] Physical Exam - Constitutional Appears: Well, No Acute Distress, Confused - Head Exam Head Exam: ATRAUMATIC, NORMOCEPHALIC - Eye Exam Eye Exam: Normal appearance - ENT Exam ENT Exam: Mucous Membranes Moist, Normal Exam - Neck Exam Neck exam: Positive for: Normal Inspection - Respiratory Exam Respiratory Exam: Clear to Auscultation Bilateral, NORMAL BREATHING PATTERN. absent: Chest Wall Tenderness, Decreased Breath Sounds, Rales, Respiratory Distress - Cardiovascular Exam Cardiovascular Exam: REGULAR RHYTHM, +S1, +S2 - GI/Abdominal Exam GI & Abdominal Exam: Normal Bowel Sounds, Soft. absent: Guarding, Hernia, Organomegaly, Rebound, Rigid, Tenderness - Extremities Exam Extremities exam: Negative for: joint swelling, pedal edema - Neurological Exam Neurological exam: Alert, Altered - Psychiatric Exam Psychiatric exam: Agitated - Skin Skin Exam: Dry, Intact, Normal Color, Warm Results - Vital Signs Recent Vital Signs: Last Vital Signs Temp 98.1 F 12/11/17 09:05 Pulse 73 12/11/17 09:05 Resp 20 12/11/17 09:05 BP 184/72 H 12/11/17 11:00 Pulse Ox 97 12/11/17 09:05 - Labs Result Diagrams: 12/11/17 11:15 12/11/17 11:15 Labs: Laboratory Results - last 24 hr 12/10/17 12/10/17 12/11/17 17:17 21:00 06:16 WBC RBC Hgb Hct MCV MCH MCHC RDW Plt Count MPV Sodium Potassium Chloride Carbon Dioxide Anion Gap BUN Creatinine Est GFR ( Amer) Est GFR (Non-Af Amer) POC Glucose (mg/dL) 112 H 105 95 Random Glucose Calcium Total Bilirubin AST ALT Alkaline Phosphatase Total Protein Albumin Globulin Albumin/Globulin Ratio 12/11/17 12/11/17 12/11/17 11:15 11:15 11:18 WBC 3.8 L RBC 4.51 Hgb 12.1 Hct 36.4 MCV 80.8 L MCH 26.8 L MCHC 33.1 RDW 21.7 H Plt Count 151 MPV 10.7 Sodium 136 Potassium 3.6 Chloride 92 L Carbon Dioxide 28 Anion Gap 19 BUN 45 H Creatinine 1.8 H Est GFR ( Amer) 33 Est GFR (Non-Af Amer) 28 POC Glucose (mg/dL) 109 Random Glucose 108 H Calcium 8.6 Total Bilirubin 0.5 AST 85 H D ALT 146 H Alkaline Phosphatase 71 Total Protein 5.9 L Albumin 3.5 Globulin 2.4 Albumin/Globulin Ratio 1.4 Assessment & Plan - Assessment and Plan (Free Text) Assessment: Patient is a 72yo female with triple vessel CAD with prior PCI and now recommendation for CABG (pt refusing), peripheral vascular disease, CHF, CKD, severe pulmonary hypertension, COPD, prior CVA, DVT, breast cancer s/p chemotherapy who presented to the hospital with chest pain and abd pain -Chronic abdominal pain -Severe CAD -PVD -COPD with pulmonary HTN -CKD -H/O breast cancer Plan: -Patient does not have any reproducible abdominal discomfort on examination -Chronic long-stand abdominal pain, unexplained by recent endoscopy -Given diffuse vascular disease - component of chronic mesenteric ischemia or vascular stenosis may be present supplying the intestinal tract -Could consider CT angiography, CT with IV contrast to evaluate vasculature, but cr 1.8 -Moreover, patient may not be candidate for intervention if obstruction noted given multiple significant comorbidities and is currently refusing invasive procedures/surgical interventions -Patient is adamant that she does not want to perform colonoscopy -Passing stool without issue, tolerating meals thus far during admission -Would recommend ongoing medical therapy and treatment of her more pressing issues with regards to her ongoing pulmonary and cardiac issues with further outpatient GI evaluation to follow D/W Dr. Macario <Geronimo Macario - Last Filed: 12/11/17 16:41> Meds - Medications Medications: Current Medications Alprazolam (Xanax) 0.25 mg PO Q8H [facility] Stop: 12/18/17 12:31 Last Admin: 12/11/17 13:24 Dose: 0.25 mg Aspirin (Ecotrin) 81 mg PO DAILY [facility] Last Admin: 12/11/17 11:00 Dose: 81 mg Ergocalciferol (Drisdol 50,000 Intl Units Cap) 1 cap PO Q7D [facility] Last Admin: 12/11/17 11:22 Dose: 1 cap Famotidine (Pepcid) 20 mg PO DAILY [facility] Ferrous Gluconate (Fergon) 324 mg PO TID [facility] Last Admin: 12/11/17 14:45 Dose: 324 mg Furosemide (Lasix) 20 mg IVP DAILY [facility] Last Admin: 12/11/17 11:00 Dose: 20 mg Heparin Sodium (Porcine) (Heparin) 5,000 units SC Q12 [facility] Hydralazine HCl (Apresoline) 75 mg PO TID [facility] Last Admin: 12/11/17 14:45 Dose: 75 mg Insulin Human Regular (Novolin R) 0 unit SC ACHS [facility] PRN Reason: Protocol Last Admin: 12/11/17 11:32 Dose: Not Given Isosorbide Mononitrate (Imdur) 60 mg PO DAILY [facility] Last Admin: 12/11/17 10:55 Dose: 60 mg Metoprolol Succinate (Toprol Xl) 25 mg PO DAILY [facility] Last Admin: 12/11/17 10:58 Dose: 25 mg Morphine Sulfate (Morphine) 2 mg IVP Q3 PRN PRN Reason: Pain, moderate (4-7) Last Admin: 12/11/17 02:06 Dose: 2 mg Pantoprazole Sodium (Protonix Ec Tab) 40 mg PO DAILY [facility] Last Admin: 12/11/17 11:00 Dose: 40 mg Ranolazine (Ranexa) 500 mg PO BID [facility] Last Admin: 12/11/17 11:00 Dose: 500 mg Fluticasone/Salmeterol (Advair Diskus 250/50) 1 puff INH RQ12 [facility] Last Admin: 12/11/17 09:56 Dose: Not Given Tiotropium [place] (Spiriva) 18 mcg INH RQ24 [facility] Last Admin: 12/11/17 09:56 Dose: Not Given Vitamin B Complex/Vit C/Folic Acid (Nephro-Karolyn) 1 tab PO 0800 [facility] Results - Vital Signs Recent Vital Signs: Last Vital Signs Temp 98.1 F 12/11/17 09:05 Pulse 73 12/11/17 09:05 Resp 20 12/11/17 09:05 BP 184/72 H 12/11/17 11:00 Pulse Ox 97 12/11/17 09:05 - Labs Result Diagrams: 12/11/17 11:15 12/11/17 11:15 Labs: Laboratory Results - last 24 hr 12/10/17 12/10/17 12/11/17 17:17 21:00 06:16 WBC RBC Hgb Hct MCV MCH MCHC RDW Plt Count MPV Sodium Potassium Chloride Carbon Dioxide Anion Gap BUN Creatinine Est GFR ( Amer) Est GFR (Non-Af Amer) POC Glucose (mg/dL) 112 H 105 95 Random Glucose Calcium Total Bilirubin AST ALT Alkaline Phosphatase Total Protein Albumin Globulin Albumin/Globulin Ratio 12/11/17 12/11/17 12/11/17 11:15 11:15 11:18 WBC 3.8 L RBC 4.51 Hgb 12.1 Hct 36.4 MCV 80.8 L MCH 26.8 L MCHC 33.1 RDW 21.7 H Plt Count 151 MPV 10.7 Sodium 136 Potassium 3.6 Chloride 92 L Carbon Dioxide 28 Anion Gap 19 BUN 45 H Creatinine 1.8 H Est GFR ( Amer) 33 Est GFR (Non-Af Amer) 28 POC Glucose (mg/dL) 109 Random Glucose 108 H Calcium 8.6 Total Bilirubin 0.5 AST 85 H D ALT 146 H Alkaline Phosphatase 71 Total Protein 5.9 L Albumin 3.5 Globulin 2.4 Albumin/Globulin Ratio 1.4 Attending/Attestation - Attestation I have personally seen and examined this patient.: Yes I have fully participated in the care of the patient.: Yes I have reviewed all pertinent clinical information: Yes Notes (Text): 12/11/17 16:38 Patient seen at bedside. Known from previous admission. This is a 72 yr old female with triple vessel CAD with prior PCI and now recommendation for CABG ( pt refusing), peripheral vascular disease, CHF, CKD, severe pulmonary hypertension, COPD, prior CVA, DVT, breast cancer s/p chemotherapy who presented to the hospital with chest pain and abdominal pain. Consider CT angiogram. She refused to talk to me this morning or let me do physical exam. Given diffuse vascular disease - component of chronic mesenteric ischemia or vascular stenosis may be present supplying the intestinal tract given multiple significant comorbidities. Patient is adamant that she does not want to perform colonoscopy. Would recommend ongoing medical therapy and treatment of her more pressing issues with regards to her ongoing pulmonary and cardiac issues with further outpatient GI evaluation to follow
[2017-12-11] MEDS ORDERED: Pneumococcal 23-Valent Vaccine IM ONE (14:00)
--- NOTE | 2017-12-11 15:09 | CP.PCM.CON ---
History of Present Illness - History of Present Illness History of Present Illness: Nephrology Consultation Note: Assessment: critical NSTEMI, CHF/COPD exacerbation with pleural effusions/pulm congestion Acute Kidney Injury (N17.9) possibly due to CHF/cardiorenal, hemodynamic CAD with 3 vessel disease Diabetic chronic Kidney Disease (E11.22) Hypertensive Chronic Kidney Disease (I12.9) Chronic Kidney Disease (N18.3) Stage 3 with 1.7 gram proteinuria (R80.9) likely due to ETHEL, NSAIDs Anemia (D64.9), HTN (I12.9), Rt JASON 60%, PVD, CAD, CA breast renal cysts vit D def Plan No acute need for renal replacement therapy at this time. Hypertension control with meds as ordered.hold ACEI/ARB due to ETHEL Monitor Input/Output, daily weights and renal function with basic metabolic panel supplement electrolytes as needed started iron supplement, MVI and weekly Vit D continue with diuretics getting inhalers for COPD Dose meds/antibiotics for reduced GFR. Avoid fleets enema/magnesium based laxatives. Avoid nephrotoxins/NSAIDs/ iodinated contrast (unless needed emergently) Glycemic control Further work up/management as per primary team Thanks for allowing me to participate in care of your patient. Will follow patient with you. Please call if any Qs. d/w team Dr Shiraz Husain Office: [phone] reason for consult: ETHEL HPI: Pt is a 72 F with hx of diabetes Mellitus (years), hypertension (many years ), CAD s/p stent, PVD s/p iliac stent, Rt renal artery stenosis 60%, Ca breast s /p chemo presented with complaints of chest pain and SOB, managed for CHF and NSTEMI in past, reported heavy use of NSAIDs as naproxen, up to 10 tab/day for months probably has baseline CKD with cr 1.0-1.2 with intermittent AKIs ROS:she was sleepy when seen and wasn't able to provide much reliable hx. she was on 1:1 Physical Examination: General Appearance: Comfortable, in no acute respiratory distress Vitals reviewed and noted as below Head; Atraumatic, normocephalic ENT: no ulcers no thrush. Tongue is midline. Oropharynx: no rash or ulcers. EYES: Pupils are equal, round and reactive to light accommodation. Eye muscles and extra-ocular movement intact. Sclera is anicteric. Neck; supple no lymphadenopathy, no thyromegaly or bruit Lungs: Normal respiratory rate/effort. Breath sounds bilateral decreased at bases with few wheeze Heart: Normal rate. s1s2 normal. No rub or gallop. Extremities: no edema. No varicose veins Neurological: Patient is sleeping, arousable but falls back to sleep shortly Skin: Warm and dry. Normal turgor. No rash. Palpitation: Normal elasticity for age Abdomen: Abdomen is soft. Bowel sounds +. There is no abdominal tenderness, no guarding/rigidity no organomegaly Psych: unable MSK: no joint tenderness or swelling. Digits and nails normal, no deformity : kidney or bladder not palpable Labs/imaging reviewed. Past medical history, past surgical history, family history, social history, allergy reviewed and noted as below Family hx: no hx of CKD. Rest non-contributory sono jun 2017: simple cyst. previous CT showed stable complex cyst left kidney echo; moderate to severe TR SPEP/AMY neg, serum FLC assay WNL. Vit D <12.8 PTH 168 TSAT 4% Ferritin 19 Hep B and C neg Past Patient History - Infectious Disease Hx of Infectious Diseases: None - Tetanus Immunizations Tetanus Immunization: Unknown - Past Medical History & Family History Past Medical History?: Yes - Past Social History Smoking Status: Former Smoker - CARDIAC Hx Cardiac Disorders: Yes Hx Congestive Heart Failure: Yes Hx Hypercholesterolemia: Yes Hx Hypertension: Yes Hx Peripheral Edema: Yes - PULMONARY Hx Respiratory Disorders: Yes Hx Bronchitis: Yes Hx Chronic Obstructive Pulmonary Disease (COPD): Yes Hx Emphysema: Yes - NEUROLOGICAL Hx Neurological Disorder: Yes Hx Dementia: Yes Hx Transient Ischemic Attacks (TIA): Yes - HEENT Hx HEENT Problems: Yes 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) - RENAL Hx Chronic Kidney Disease: Yes - ENDOCRINE/METABOLIC Hx Endocrine Disorders: Yes Hx Diabetes Mellitus Type 2: Yes - HEMATOLOGICAL/ONCOLOGICAL Hx Anemia: Yes (blood transfusion) - INTEGUMENTARY Hx Dermatological Problems: No - MUSCULOSKELETAL/RHEUMATOLOGICAL Hx Musculoskeletal Disorders: No Hx Falls: No - GASTROINTESTINAL Hx Gastrointestinal Disorders: Yes Hx Gastroesophageal Reflux: Yes - GENITOURINARY/GYNECOLOGICAL Hx Genitourinary Disorders: No - PSYCHIATRIC Hx Psychophysiologic Disorder: Yes Hx Schizophrenia: Yes Hx Substance Use: No - SURGICAL HISTORY Hx Surgeries: Yes Hx Coronary Stent: Yes - ANESTHESIA Hx Anesthesia: Yes Hx Anesthesia Reactions: No Hx Malignant Hyperthermia: No Meds Allergies/Adverse Reactions: Allergies Allergy/AdvReac Type Severity Reaction Status Date / Time iodine Allergy Severe ANAPHYLAXIS Verified 12/09/17 00:05 iv dye Allergy Severe ANAPHYLAXIS Uncoded 12/09/17 00:05 - Medications Medications: Current Medications Alprazolam (Xanax) 0.25 mg PO Q8H [facility] Stop: 12/18/17 12:31 Last Admin: 12/11/17 13:24 Dose: 0.25 mg Aspirin (Ecotrin) 81 mg PO DAILY [facility] Last Admin: 12/11/17 11:00 Dose: 81 mg Enoxaparin Sodium (Lovenox) 45 mg SC Q12H [facility] Last Admin: 12/11/17 03:24 Dose: 45 mg Ergocalciferol (Drisdol 50,000 Intl Units Cap) 1 cap PO Q7D [facility] Last Admin: 12/11/17 11:22 Dose: 1 cap Famotidine (Pepcid) 20 mg PO DAILY [facility] Ferrous Gluconate (Fergon) 324 mg PO TID [facility] Last Admin: 12/11/17 14:45 Dose: 324 mg Furosemide (Lasix) 20 mg IVP DAILY [facility] Last Admin: 12/11/17 11:00 Dose: 20 mg Hydralazine HCl (Apresoline) 75 mg PO TID [facility] Last Admin: 12/11/17 14:45 Dose: 75 mg Insulin Human Regular (Novolin R) 0 unit SC ACHS [facility] PRN Reason: Protocol Last Admin: 12/11/17 11:32 Dose: Not Given Isosorbide Mononitrate (Imdur) 60 mg PO DAILY [facility] Last Admin: 12/11/17 10:55 Dose: 60 mg Metoprolol Succinate (Toprol Xl) 25 mg PO DAILY [facility] Last Admin: 12/11/17 10:58 Dose: 25 mg Morphine Sulfate (Morphine) 2 mg IVP Q3 PRN PRN Reason: Pain, moderate (4-7) Last Admin: 12/11/17 02:06 Dose: 2 mg Pantoprazole Sodium (Protonix Ec Tab) 40 mg PO DAILY [facility] Last Admin: 12/11/17 11:00 Dose: 40 mg Ranolazine (Ranexa) 500 mg PO BID [facility] Last Admin: 12/11/17 11:00 Dose: 500 mg Fluticasone/Salmeterol (Advair Diskus 250/50) 1 puff INH RQ12 [facility] Last Admin: 12/11/17 09:56 Dose: Not Given Tiotropium [place] (Spiriva) 18 mcg INH RQ24 [facility] Last Admin: 12/11/17 09:56 Dose: Not Given Vitamin B Complex/Vit C/Folic Acid (Nephro-Karolyn) 1 tab PO 0800 [facility] Results - Vital Signs Recent Vital Signs: Last Vital Signs Temp 98.1 F 12/11/17 09:05 Pulse 73 12/11/17 09:05 Resp 20 12/11/17 09:05 BP 184/72 H 12/11/17 11:00 Pulse Ox 97 12/11/17 09:05 - Labs Result Diagrams: 12/11/17 11:15 12/11/17 11:15 Labs: Laboratory Results - last 24 hr 12/10/17 12/10/17 12/11/17 17:17 21:00 06:16 WBC RBC Hgb Hct MCV MCH MCHC RDW Plt Count MPV Sodium Potassium Chloride Carbon Dioxide Anion Gap BUN Creatinine Est GFR ( Amer) Est GFR (Non-Af Amer) POC Glucose (mg/dL) 112 H 105 95 Random Glucose Calcium Total Bilirubin AST ALT Alkaline Phosphatase Total Protein Albumin Globulin Albumin/Globulin Ratio 12/11/17 12/11/17 12/11/17 11:15 11:15 11:18 WBC 3.8 L RBC 4.51 Hgb 12.1 Hct 36.4 MCV 80.8 L MCH 26.8 L MCHC 33.1 RDW 21.7 H Plt Count 151 MPV 10.7 Sodium 136 Potassium 3.6 Chloride 92 L Carbon Dioxide 28 Anion Gap 19 BUN 45 H Creatinine 1.8 H Est GFR ( Amer) 33 Est GFR (Non-Af Amer) 28 POC Glucose (mg/dL) 109 Random Glucose 108 H Calcium 8.6 Total Bilirubin 0.5 AST 85 H D ALT 146 H Alkaline Phosphatase 71 Total Protein 5.9 L Albumin 3.5 Globulin 2.4 Albumin/Globulin Ratio 1.4
--- NOTE | 2017-12-11 15:12 | CP.PCM.CON ---
History of Present Illness - History of Present Illness History of Present Illness: Palliative consult requested by Doctor tyson for goals of care discussion Patient is 72 yo lady known to me from previous admissions, presents to ED with complaints of SOB and chest discomfort. Patient has had multiple admissions in the past for same problems. CXR upon admission was significant for moderate pulmonary venous congestion , B/ L pleural effusion with consolidation. Patient is placed on Lasix, hand inhalors , o2 supplemnts and BP meds. TRPI 1.8100 on admission. Patient diagnosed with UTI, Gram+ cocci PMH: multiple hospitalizations due to resiratory issues, anemia, anxiety, arthritis, CAD,COPD, CVA Soc. hx: , lives alone, denies family Fam. Hx: patient denies, nocompliant Review of Systems - Review of Systems All systems: reviewed and no additional remarkable complaints except Review of Systems: ROS obtained from nursing. per nursing, patient is very agitated, screaming and placed on 1:1 watch for safety Past Patient History - Infectious Disease Hx of Infectious Diseases: None - Tetanus Immunizations Tetanus Immunization: Unknown - Past Medical History & Family History Past Medical History?: Yes - Past Social History Smoking Status: Former Smoker - CARDIAC Hx Cardiac Disorders: Yes Hx Congestive Heart Failure: Yes Hx Hypercholesterolemia: Yes Hx Hypertension: Yes Hx Peripheral Edema: Yes - PULMONARY Hx Respiratory Disorders: Yes Hx Bronchitis: Yes Hx Chronic Obstructive Pulmonary Disease (COPD): Yes Hx Emphysema: Yes - NEUROLOGICAL Hx Neurological Disorder: Yes Hx Dementia: Yes Hx Transient Ischemic Attacks (TIA): Yes - HEENT Hx HEENT Problems: Yes 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) - RENAL Hx Chronic Kidney Disease: Yes - ENDOCRINE/METABOLIC Hx Endocrine Disorders: Yes Hx Diabetes Mellitus Type 2: Yes - HEMATOLOGICAL/ONCOLOGICAL Hx Anemia: Yes (blood transfusion) - INTEGUMENTARY Hx Dermatological Problems: No - MUSCULOSKELETAL/RHEUMATOLOGICAL Hx Musculoskeletal Disorders: No Hx Falls: No - GASTROINTESTINAL Hx Gastrointestinal Disorders: Yes Hx Gastroesophageal Reflux: Yes - GENITOURINARY/GYNECOLOGICAL Hx Genitourinary Disorders: No - PSYCHIATRIC Hx Psychophysiologic Disorder: Yes Hx Schizophrenia: Yes Hx Substance Use: No - SURGICAL HISTORY Hx Surgeries: Yes Hx Coronary Stent: Yes - ANESTHESIA Hx Anesthesia: Yes Hx Anesthesia Reactions: No Hx Malignant Hyperthermia: No Meds Allergies/Adverse Reactions: Allergies Allergy/AdvReac Type Severity Reaction Status Date / Time iodine Allergy Severe ANAPHYLAXIS Verified 12/09/17 00:05 iv dye Allergy Severe ANAPHYLAXIS Uncoded 12/09/17 00:05 - Medications Medications: Current Medications Alprazolam (Xanax) 0.25 mg PO Q8H [facility] Stop: 12/18/17 12:31 Last Admin: 12/11/17 13:24 Dose: 0.25 mg Aspirin (Ecotrin) 81 mg PO DAILY [facility] Last Admin: 12/11/17 11:00 Dose: 81 mg Enoxaparin Sodium (Lovenox) 45 mg SC Q12H [facility] Last Admin: 12/11/17 03:24 Dose: 45 mg Ergocalciferol (Drisdol 50,000 Intl Units Cap) 1 cap PO Q7D [facility] Last Admin: 12/11/17 11:22 Dose: 1 cap Famotidine (Pepcid) 20 mg PO DAILY [facility] Ferrous Gluconate (Fergon) 324 mg PO TID [facility] Last Admin: 12/11/17 14:45 Dose: 324 mg Furosemide (Lasix) 20 mg IVP DAILY [facility] Last Admin: 12/11/17 11:00 Dose: 20 mg Hydralazine HCl (Apresoline) 75 mg PO TID [facility] Last Admin: 12/11/17 14:45 Dose: 75 mg Insulin Human Regular (Novolin R) 0 unit SC ACHS [facility] PRN Reason: Protocol Last Admin: 12/11/17 11:32 Dose: Not Given Isosorbide Mononitrate (Imdur) 60 mg PO DAILY [facility] Last Admin: 12/11/17 10:55 Dose: 60 mg Metoprolol Succinate (Toprol Xl) 25 mg PO DAILY [facility] Last Admin: 12/11/17 10:58 Dose: 25 mg Morphine Sulfate (Morphine) 2 mg IVP Q3 PRN PRN Reason: Pain, moderate (4-7) Last Admin: 12/11/17 02:06 Dose: 2 mg Pantoprazole Sodium (Protonix Ec Tab) 40 mg PO DAILY [facility] Last Admin: 12/11/17 11:00 Dose: 40 mg Ranolazine (Ranexa) 500 mg PO BID [facility] Last Admin: 12/11/17 11:00 Dose: 500 mg Fluticasone/Salmeterol (Advair Diskus 250/50) 1 puff INH RQ12 [facility] Last Admin: 12/11/17 09:56 Dose: Not Given Tiotropium [place] (Spiriva) 18 mcg INH RQ24 [facility] Last Admin: 12/11/17 09:56 Dose: Not Given Vitamin B Complex/Vit C/Folic Acid (Nephro-Karolyn) 1 tab PO 0800 [facility] Physical Exam - Constitutional Appears: No Acute Distress - Head Exam Head Exam: ATRAUMATIC, NORMAL INSPECTION, NORMOCEPHALIC - Eye Exam Eye Exam: EOMI, Normal appearance, PERRL Pupil Exam: NORMAL ACCOMODATION, PERRL - ENT Exam ENT Exam: Mucous Membranes Dry - Neck Exam Neck exam: Positive for: Normal Inspection - Respiratory Exam Respiratory Exam: Decreased Breath Sounds, Rales, Rhonchi - Cardiovascular Exam Cardiovascular Exam: Tachycardia - GI/Abdominal Exam GI & Abdominal Exam: Normal Bowel Sounds - Rectal Exam Rectal Exam: Deferred - Extremities Exam Extremities exam: Positive for: normal inspection - Back Exam Back exam: NORMAL INSPECTION - Neurological Exam Neurological exam: Alert, Altered - Psychiatric Exam Psychiatric exam: Agitated, Anxious - Skin Skin Exam: Pallor Results - Vital Signs Recent Vital Signs: Last Vital Signs Temp 98.1 F 12/11/17 09:05 Pulse 73 12/11/17 09:05 Resp 20 12/11/17 09:05 BP 184/72 H 12/11/17 11:00 Pulse Ox 97 12/11/17 09:05 - Labs Result Diagrams: 12/11/17 11:15 12/11/17 11:15 Labs: Laboratory Results - last 24 hr 12/10/17 12/10/17 12/11/17 17:17 21:00 06:16 WBC RBC Hgb Hct MCV MCH MCHC RDW Plt Count MPV Sodium Potassium Chloride Carbon Dioxide Anion Gap BUN Creatinine Est GFR ( Amer) Est GFR (Non-Af Amer) POC Glucose (mg/dL) 112 H 105 95 Random Glucose Calcium Total Bilirubin AST ALT Alkaline Phosphatase Total Protein Albumin Globulin Albumin/Globulin Ratio 12/11/17 12/11/17 12/11/17 11:15 11:15 11:18 WBC 3.8 L RBC 4.51 Hgb 12.1 Hct 36.4 MCV 80.8 L MCH 26.8 L MCHC 33.1 RDW 21.7 H Plt Count 151 MPV 10.7 Sodium 136 Potassium 3.6 Chloride 92 L Carbon Dioxide 28 Anion Gap 19 BUN 45 H Creatinine 1.8 H Est GFR ( Amer) 33 Est GFR (Non-Af Amer) 28 POC Glucose (mg/dL) 109 Random Glucose 108 H Calcium 8.6 Total Bilirubin 0.5 AST 85 H D ALT 146 H Alkaline Phosphatase 71 Total Protein 5.9 L Albumin 3.5 Globulin 2.4 Albumin/Globulin Ratio 1.4 Assessment & Plan - Assessment and Plan (Free Text) Assessment: Code status DNR/DNI, copy of POLST on chart, PPS 20% I reviewed medical records, all diagnostic studies, examined patient in the bed. Interview was limited due to patient's agitation Patient is alert, very agitated, screaming and cursing. Usually, patient recognizes me as I been seeing her many time so far, but this time she did not. Patient refused any kind of interaction. patient yells " I want to !" There are a lot of ronchi and mayelin on auscultation. No cough is noted. patient refuses to answer questions, but does not appear to be with any chest pain/ discomfort. Abdomen is soft and flat. There is no pedal edema.BP WNL, afebrile. Her breakfast tray is before her , but she is refusing food, complaining of being tired and wanting to sleep. patient signed POLST with me in . At that time she chose DNR/DNI and many times after that when I spoke to her, she would stick to same decision. I made nurse Kamryn aware of POLST and put order in. Assessment * Confusion and agitation * Wishes she was * UTI * Poor PO intake * Copy of POLST on record Plan * Promote safety * Would refer to Psych for evaluation of suicidal thoughts and anxiety treatments * Would refer to ID for UTI * DNR/DNI
--- NOTE | 2017-12-11 20:29 | CARD ---
APPROVED REPORT EKG Measurement Heart [id number] <Conclusion> Normal sinus rhythm Lateral ST abnormality, consider ischemia Abnormal ECG
--- NOTE | 2017-12-12 00:35 | CON ---
DATE: 12/11/2017 CHIEF COMPLAINT/REASON FOR CONSULTATION: The patient was referred by Dr. John Brown for evaluation, the patient is very agitated, screaming, refusing care, and was reportedly having visual hallucination of seeing people. HISTORY OF PRESENT ILLNESS: This is a 72-year-old female with history of multiple medical problems. The patient is complaining mainly of shortness of breath. The patient was admitted here for exacerbation of CHF. The patient was referred for co-management. The patient is very agitated. The patient currently on one-to-one monitoring, has been screaming. The patient is refusing to cooperate with staff, telling staff to get out, and also was verbally abusive. Today, when seen she states that she is not feeling well, and she wants to go home. The patient has been consistently bouncing from the assisted to home and having difficulty taking care of herself. The patient also has increasing periods of confusion as the start, has history of dementia as well as history of schizophrenia, but currently not taking any medication. Today, she is very agitated and cooperative. When seen today, she states she wants to sleep and does not want to be bothered. The patient is on one-to-one for monitoring as she is in and out of confusion. Today, she did not eat much of her lunch and has been very uncooperative. PAST PSYCHIATRIC HISTORY: In the chart, history of schizophrenia, dementia, as well as anxiety. MEDICATIONS: The patient is not taking any medications. PAST MEDICAL HISTORY: History of anemia, history of CHF, history of CAD, COPD, CVA, history of hypertension, history of breast CA, history of osteoporosis, TIA, and kidney disease. SOCIAL HISTORY: Drug and alcohol history, denies any. The patient is a smoker. PSYCHOSOCIAL HISTORY: The patient lives alone. ALLERGIES: THE PATIENT IS ALLERGIC TO IV DYE AND IODINE. CURRENT MEDICATIONS: Advair, Apresoline, Drisdol, Ecotrin, Fergon, Imdur, and Lasix. The patient is on morphine. The patient is also on Toprol, Spiriva, Ranexa, and Protonix. PHYSICAL EXAMINATION: VITAL SIGNS: Temperature is 98.1, pulse 73, blood pressure 184/72, respirations 20, oxygen saturation 97% on room air. GENERAL: The patient is alert, verbally abusive, confusion, screaming, and very irritable. Does not want to talk much, to be left alone. She is on one-to-one hospital monitoring. The patient states she wants to sleep. SKIN: No diaphoresis. HEENT: No headache or dizziness. NECK: Supple. RESPIRATORY: Off and on dyspnea. CARDIOVASCULAR: No chest pain. GASTROINTESTINAL: Appetite is variable. EXTREMITIES: The patient moves the extremities. MUSCULOSKELETAL: Feels weak. NEUROLOGIC: Alert with off and on periods of confusion. The patient's mental status seems to waxing and waning. GENITOURINARY: No dysuria. MENTAL STATUS EXAMINATION: Elderly female who looks stated age, very irritable, anxious, and verbally abusive. The patient is cursing in profanity. Affect is reactive. Mood is irritable as stated. Thought process is confused off and on. Thought content, denies any increased hallucination, but seems to be very guarded and paranoid and irritable. Attention seems to be limited. Insight and judgment limited. Impulse control is guarded at this time. LABORATORY DATA: Review of her labs showed her WBC is 3.8, H and H is 12.1/36.4, troponin was elevated 1.8100, creatinine is 1.8, the less value. IMPRESSION: Delirium, metabolic encephalopathy secondary to congestive heart failure, superimposed on sudden onset of dementia, also history of anxiety. PLAN AND RECOMMENDATION: The patient is seen, meds reviewed with the patient. She is feeling very anxious. We will give her Xanax 0.25 mg q.8 for anxiety. We will hold any addition psych meds for now to calm her down. This patient is very restless and agitated. We will keep the one-to-one for now. The patient has been followed by Dr. Kinney, for her cardiac issues. Continue treatment plan as outlined. The patient at this time may need to be in a assisted setting as patient seems to be having increasing confusion and increasing medical problems. She states she has no help at all and then when asked if patient wants to have homemaker, the patient blatantly said, she does not want any help. She states, she can take care of herself. If the patient may agree, she may benefit from going for subacute rehab for conditioning, but we will check if the patient still has subacute days. Demetrius Burdick MD [facility] # [id number]
[2017-12-12 06:35] LABS: HEMOGLOBIN 11.3 g/dL (11.0-16.0); MEAN CELL VOLUME 79.9 fL (81.0-99.0); MEAN CORPUSCULAR HEMOGLOBIN 26.9 pg (27.0-31.0); MEAN CORPUSCULAR HGB CONC 33.7 g/dL (33.0-37.0); MEAN PLATELET VOLUME 10.7 fL (7.2-11.7); RBC 4.21 Mil/uL (3.80-5.20); WHITE BLOOD COUNT 4.2 K/uL (4.8-10.8)
[2017-12-12 06:49] LABS: ALB/GLOB RATIO 1.3 (1.0-2.1); CALCIUM 8.4 mg/dl (8.6-10.4)
--- NOTE | 2017-12-12 06:49 | PN ---
DATE: SUBJECTIVE: When I came to see her this morning, she was on a one-to-one that was started sometime last night. She is alert. Telling me she is seeing people in her room and she wants them out. She is having also some abdominal pain. I gave her Protonix yesterday and that has not made much of a difference. She is alert. She is feeling hungry. PHYSICAL EXAMINATION: VITAL SIGNS: She has 97.4 temperature, 66 pulse, 142/66 blood pressure, 20 respiratory rate, 99% O2 sat on 2 L. HEENT: Head is atraumatic, normocephalic. GENERAL: She is alert, a little bit confused. HEART: Regular rate. LUNGS: Decreased breath sounds but clear. ABDOMEN: Soft. EXTREMITIES: No edema. MEDICATIONS: She is currently on Advair, Apresoline, Cozaar, Ecotrin, Imdur, Lasix, Lovenox, morphine, Novolin, Pepcid, Protonix, Ranexa, Spiriva, and Toprol. LABORATORY DATA: She has a 3.6 white count, 11.3 hemoglobin, 34.2 hematocrit, 142 platelets. She has a 137 sodium, potassium 4.1, BUN 44, creatinine 1.9, 112 blood sugar, AST is 162, ALT is 158, alk phos 73. Troponins are 1.8 and 1.8. Total protein is 5.7. therapy due to the elevated BUN and creatinine although she is on Lasix IV. I will give a little fluid. Also, I will call in Psychiatry for her visual hallucinations and GI for abdominal pain. better. I too think she might be Kathy Painter has critical coronary disease, now visual hallucinations, abdominal pain, and chronic renal insufficiency. John Brown DO MTDD
[2017-12-12] MEDS: (Novolin R) Insulin Human Regular 100 units/ml vial SC SCH ×4 (08:07→23:09)
[2017-12-12] MEDS: Multivitamin Vitamin B Complex (Nephro-Vite) Tab PO SCH (09:00)
[2017-12-12] MEDS: Fluticasone-Salmeterol 250-50mcg Diskus INH SCH ×2 (09:14→19:11)
[2017-12-12] MEDS: Tiotropium 18 mcg Cap For Inhalation INH SCH (09:14)
--- NOTE | 2017-12-12 10:28 | PN ---
DATE: 12/09/2017 SUBJECTIVE: I saw Kathy in her bed, 6th floor, at [facility]. She is a one-to-one. She does not like being here as she is upset with everything again. She is hungry. She is comfortable. She is on Advair, Apresoline, Drisdol, Ecotrin, Klor-Con, heparin, Imdur, Lasix, morphine, Nephro-Karolyn, Novolin, Pepcid, Protonix, Ranexa, Spiriva, Toprol, and Xanax. PHYSICAL EXAMINATION VITAL SIGNS: 97.3 temperature, 67 pulse, 148/65 blood pressure, 20 respiratory rate, 95% O2 saturation on 2L nasal cannula. HEENT: Head is atraumatic and normocephalic. Throat is moist. NECK: Supple. HEART: Regular rate with decreased breath sounds. LUNGS: Clear. ABDOMEN: Soft and nontender. Positive bowel sounds. EXTREMITIES: No edema. LABORATORY DATA: She has a 3.8 white count, 12.1 hemoglobin, 151 platelets, 136 sodium, potassium 3.6, BUN 45, creatinine 1.8, GFR is 28, sugar is 108, calcium is 8.6, total bilirubin is 0.58, AST is 85, ALT is 146, alk phos 71, total protein 5.9. PLAN: I consulted Renal Care, GI, Psychiatry, Cardiology hoping for placement to long-term care. She is no longer able to take care of herself at home. I am hoping we could find a facility for her. She was back and forth, at least eight times in two months in the hospitals . She was supposed to get open heart surgery until Monday when she . There are some other issues with regards to cardiac disease, coronary artery disease. Recommendation for coronary artery bypass graft which she refuses, peripheral vascular disease, congestive heart failure, chronic kidney disease, severe pulmonary hypertension. She still smokes cigarettes when she was at home, deep venous thrombosis, breast cancer, status post chemo, abdominal pain. Hopefully, we are here at the facility to take care of her. She needs more aggressive care to take it at home by herself and as per social service with Case Management. John Brown DO MTDD
[2017-12-12] MEDS: Ranolazine 500 mg Extended Release Tablets PO SCH ×2 (10:42→17:45)
[2017-12-12] MEDS: Metoprolol Succinate 25 mg XL Tab PO SCH (10:42)
[2017-12-12] MEDS: Pantoprazole 40 mg EC Tab PO SCH (10:45)
--- NOTE | 2017-12-12 14:18 | CP.PCM.PN ---
Subjective - Date & Time of Evaluation Date of Evaluation: 12/12/17 Time of Evaluation: 14:16 - Subjective Subjective: Nephrology Consultation Note: Assessment: Stable NSTEMI, CHF/COPD exacerbation with pleural effusions/pulm congestion Acute Kidney Injury (N17.9) possibly due to CHF/cardiorenal, hemodynamic CAD with 3 vessel disease Diabetic chronic Kidney Disease (E11.22) Hypertensive Chronic Kidney Disease (I12.9) Chronic Kidney Disease (N18.3) Stage 3 with 1.7 gram proteinuria (R80.9) likely due to ETHEL, NSAIDs Anemia (D64.9), HTN (I12.9), Rt JASON 60%, PVD, CAD, CA breast renal cysts vit D def Plan No acute need for renal replacement therapy at this time. Hypertension control with meds as ordered.hold ACEI/ARB due to ETHEL Monitor Input/Output, daily weights and renal function with basic metabolic panel supplement electrolytes as needed started iron supplement, MVI and weekly Vit D continue with diuretics getting inhalers for COPD. Added prednisone orally as well Dose meds/antibiotics for reduced GFR. Avoid fleets enema/magnesium based laxatives. Avoid nephrotoxins/NSAIDs/ iodinated contrast (unless needed emergently) Glycemic control Further work up/management as per primary team Thanks for allowing me to participate in care of your patient. Will follow patient with you. Please call if any Qs. d/w team Dr Shiraz Husain Office: [phone] reason for consult: ETHEL HPI: Pt is a 72 F with hx of diabetes Mellitus (years), hypertension (many years ), CAD s/p stent, PVD s/p iliac stent, Rt renal artery stenosis 60%, Ca breast s /p chemo presented with complaints of chest pain and SOB, managed for CHF and NSTEMI in past, reported heavy use of NSAIDs as naproxen, up to 10 tab/day for months probably has baseline CKD with cr 1.0-1.2 with intermittent AKIs ROS: She is awake today, but irritable. Feels short of breath on exertion. Denies any urinary complaint. No nausea vomiting. No pain abdomen Physical Examination: General Appearance: Comfortable, in no acute respiratory distress Vitals reviewed and noted as below Head; Atraumatic, normocephalic ENT: no ulcers no thrush. Tongue is midline. Oropharynx: no rash or ulcers. EYES: Pupils are equal, round and reactive to light accommodation. Eye muscles and extra-ocular movement intact. Sclera is anicteric. Neck; supple no lymphadenopathy, no thyromegaly or bruit Lungs: Normal respiratory rate/effort. Breath sounds bilateral decreased at bases with few wheeze Bibasal Heart: Normal rate. s1s2 normal. No rub or gallop. Extremities: no edema. No varicose veins Neurological: Patient is Awake alert follow commands. Moving all 4 extremities. No focal deficit Skin: Warm and dry. Normal turgor. No rash. Palpitation: Normal elasticity for age Abdomen: Abdomen is soft. Bowel sounds +. There is no abdominal tenderness, no guarding/rigidity no organomegaly Psych: Limited insight. Patient is very irritable. Screaming and yelling at times MSK: no joint tenderness or swelling. Digits and nails normal, no deformity : kidney or bladder not palpable Labs/imaging reviewed. Past medical history, past surgical history, family history, social history, allergy reviewed and noted as below Family hx: no hx of CKD. Rest non-contributory sono jun 2017: simple cyst. previous CT showed stable complex cyst left kidney echo; moderate to severe TR SPEP/AMY neg, serum FLC assay WNL. Vit D <12.8 PTH 168 TSAT 4% Ferritin 19 Hep B and C neg Objective - Vital Signs/Intake and Output Vital Signs (last 24 hours): Temp Pulse Resp BP Pulse Ox 97.6 F 60 20 149/76 98 12/12/17 07:00 12/12/17 08:01 12/12/17 07:00 12/12/17 10:40 12/12/17 07:00 Intake and Output: 12/12/17 12/12/17 06:59 18:59 Intake Total 100 Balance 100 - Medications Medications: Current Medications Alprazolam (Xanax) 0.25 mg PO Q8H [facility] Stop: 12/18/17 12:31 Last Admin: 12/12/17 12:45 Dose: 0.25 mg Aspirin (Ecotrin) 81 mg PO DAILY [facility] Last Admin: 12/12/17 10:43 Dose: 81 mg Ergocalciferol (Drisdol 50,000 Intl Units Cap) 1 cap PO Q7D [facility] Last Admin: 12/11/17 11:22 Dose: 1 cap Famotidine (Pepcid) 20 mg PO DAILY [facility] Last Admin: 12/12/17 10:52 Dose: 20 mg Ferrous Gluconate (Fergon) 324 mg PO TID [facility] Last Admin: 12/12/17 10:41 Dose: 324 mg Furosemide (Lasix) 20 mg IVP DAILY [facility] Last Admin: 12/12/17 10:40 Dose: 20 mg Heparin Sodium (Porcine) (Heparin) 5,000 units SC Q12 [facility] Last Admin: 12/12/17 10:44 Dose: 5,000 units Hydralazine HCl (Apresoline) 75 mg PO TID [facility] Last Admin: 12/12/17 10:41 Dose: 75 mg Insulin Human Regular (Novolin R) 0 unit SC ACHS [facility] PRN Reason: Protocol Last Admin: 12/12/17 12:22 Dose: Not Given Isosorbide Mononitrate (Imdur) 60 mg PO DAILY [facility] Last Admin: 12/12/17 10:42 Dose: 60 mg Metoprolol Succinate (Toprol Xl) 25 mg PO DAILY [facility] Last Admin: 12/12/17 10:42 Dose: 25 mg Morphine Sulfate (Morphine) 2 mg IVP Q3 PRN PRN Reason: Pain, moderate (4-7) Last Admin: 12/12/17 10:48 Dose: 2 mg Pantoprazole Sodium (Protonix Ec Tab) 40 mg PO DAILY [facility] Last Admin: 12/12/17 10:45 Dose: 40 mg Prednisone (Prednisone Tab) 40 mg PO DAILY [facility] Stop: 12/17/17 14:16 Ranolazine (Ranexa) 500 mg PO BID [facility] Last Admin: 12/12/17 10:42 Dose: 500 mg Fluticasone/Salmeterol (Advair Diskus 250/50) 1 puff INH RQ12 [facility] Last Admin: 12/12/17 09:14 Dose: Not Given Tiotropium [place] (Spiriva) 18 mcg INH RQ24 [facility] Last Admin: 12/12/17 09:14 Dose: Not Given Vitamin B Complex/Vit C/Folic Acid (Nephro-Karolyn) 1 tab PO 0800 [facility] Last Admin: 12/12/17 09:00 Dose: 1 tab - Labs Labs: 12/12/17 06:14 12/12/17 06:14 PT 17.3 SECONDS (9.7-12.2) H 12/09/17 00:22 INR 1.5 12/09/17 00:22 APTT 34 SECONDS (21-34) 12/09/17 00:22
[2017-12-12] MEDS ORDERED: Potassium Chloride 20 mEq ER Tab PO SCH (15:00)
--- NOTE | 2017-12-12 16:11 | PN ---
DATE: SUBJECTIVE: The patient is seen. The patient is very irritable, anxious. We will see her today. The patient states, "I want to go home, leave me alone." The patient has been very uncooperative with treatment plan and states she wants just to go home. The patient has in and out periods of confusion and will need help at home, but the patient is refusing any help at home. PHYSICAL EXAMINATION: VITAL SIGNS: Temperature is 97.6, pulse 65, blood pressure 116/54, respirations 20, oxygen saturation is 98%. According to the nurse practitioner, the patient was supposed to go for CABG operation in another hospital, but the patient changed her mind at the last minute. The patient is very noncompliant. Also, she has been admitted in [facility] numerous times and all the time the patient signed AMA upon discharge. REVIEW OF SYSTEMS: GENERAL: The patient is alert, verbal, very irritable with periods of confusion, feeling very weak. SKIN: No diaphoresis. HEENT: No headache. No dizziness. NECK: Supple. RESPIRATORY: Off and on dyspnea. CARDIOVASCULAR: No palpitation. GASTROINTESTINAL: Appetite is variable. EXTREMITIES: Gait is unsteady. MUSCULOSKELETAL: Feels weak. NEUROLOGIC: Alert with periods of confusion. GENITOURINARY: No dysuria. The patient at this time has fluctuating mental status and may need 24-hour care as she is very sick medically and has periods of confusion. MENTAL STATUS EXAMINATION: Elderly female who looks stated age, currently on close monitoring ,oriented x3. Mood is irritable. Anxious. Affect is reactive. Speech is spontaneous. Thought process, confused at time. Thought content, the patient has been complaining of her going home, has been refusing care. No suicidal or homicidal ideation or psychosis. Attention and memory seems to be limited. Insight and judgment are limited. Impulse control is fair at this time. IMPRESSION: History of delirium, metabolic encephalopathy, as well as dementia, anxiety, chronic congestive heart failure. PLAN AND RECOMMENDATIONS: The patient is seen, meds reviewed. Continue Xanax as ordered. Continue treatment plan as outlined. The patient at this time has significant medical problems and increasing periods of confusion and cannot take care of herself at this time. She may benefit from subacute rehab and she still has subacute days. The patient has been very noncompliant with her treatment plan even at subacute rehab at [facility] and her motivation to stay in the rehab is constantly changing. The patient as stated has signed AMA all the time [facility]. Demetrius Burdick MD MTDJeaneth
--- NOTE | 2017-12-12 20:41 | CARD ---
APPROVED REPORT EXAM: Two-dimensional and M-mode echocardiogram with Doppler and color Doppler. Other Information Quality : GoodRhythm : INDICATION Dyspnea Cardiac Disease: CAD Congestive Heart Failure RISK FACTORS Hypertension Diabetes 2D DIMENSIONS IVSd0.9 (0.7-1.1cm)LVDd4.6 (3.9-5.9cm) PWd1.1 (0.7-1.1cm)LVDs3.9 (2.5-4.0cm) FS (%) 16.4 %LVEF (%)34.4 (>50%) M-Mode DIMENSIONS Left Atrium (MM)4.09 (2.5-4.0cm)Aortic Root2.86 (2.2-3.7cm) Aortic Cusp Exc.1.58 (1.5-2.0cm) Mitral Valve MV E Mkuqvjfj00.9cm/sMV A Oyptxbgf72.5cm/sE/A ratio0.6 TDI E/Lateral E'0.0E/Medial E'0.0 Tricuspid Valve TR Peak [id number]/sTR Peak Gr.[id number] LEFT VENTRICLE The left ventricle is normal size. There is normal left ventricular wall thickness. Left ventricle systolic function is moderately impaired. The Ejection Fraction is 30-35%. There is global hypokinesis of the left ventricle. Transmitral Doppler flow pattern is Grade I-abnormal relaxation pattern. The left atrial pressure is moderately elevated. LV FILLING PRESSURE IS INCREASED No left ventricle thrombus noted on this study. There is no ventricular septal defect visualized. There is no left ventricular aneurysm. There is no mass noted in the left ventricle. RIGHT VENTRICLE The right ventricle is normal size. There is normal right ventricular wall thickness. The right ventricular systolic function is normal. ATRIA The left atrium volume is moderately dilated. The right atrium size is normal. The interatrial septum is intact with no evidence for an atrial septal defect. AORTIC VALVE The aortic valve is normal in structure and function. No aortic regurgitation is present. There is no aortic valvular stenosis. There is no aortic valvular vegetation. MITRAL VALVE The mitral valve is normal in structure and function. There is no evidence of mitral valve prolapse. There is no mitral valve stenosis. Mitral regurgitation is mild. TRICUSPID VALVE The tricuspid valve is normal in structure and function. There is moderate tricuspid regurgitation. Right ventricular systolic pressure is estimated at greater than 60 mmHg. There is severe pulmonary hypertension. There is no tricuspid valve prolapse or vegetation. There is no tricuspid valve stenosis. PULMONIC VALVE The pulmonary valve is normal in structure and function. There is no pulmonic valvular regurgitation. There is no pulmonic valvular stenosis. GREAT VESSELS The aortic root is normal in size. The ascending aorta is normal in size. The pulmonary artery is normal. The IVC is normal in size and collapses >50% with inspiration. PERICARDIAL EFFUSION The pericardium appears normal. There is no pleural effusion. <Conclusion> Left ventricle systolic function is moderately impaired. The Ejection Fraction is 30-35%. There is global hypokinesis of the left ventricle. Transmitral Doppler flow pattern is Grade I-abnormal relaxation pattern. The left atrial pressure is moderately elevated. LV FILLING PRESSURE IS INCREASED The left atrium volume is moderately dilated. Mitral regurgitation is mild. There is moderate tricuspid regurgitation. Right ventricular systolic pressure is estimated at greater than 60 mmHg. There is severe pulmonary hypertension.
[2017-12-13 07:27] LABS: HEMOGLOBIN 12.8 g/dL (11.0-16.0); MEAN CELL VOLUME 80.7 fL (81.0-99.0); MEAN CORPUSCULAR HEMOGLOBIN 26.7 pg (27.0-31.0); MEAN CORPUSCULAR HGB CONC 33.1 g/dL (33.0-37.0); MEAN PLATELET VOLUME 10.7 fL (7.2-11.7); RBC 4.82 Mil/uL (3.80-5.20); RED CELL DISTRIBUTION WIDTH 21.9 % (11.5-14.5); WHITE BLOOD COUNT 4.5 K/uL (4.8-10.8)
[2017-12-13 07:40] LABS: ALB/GLOB RATIO 1.3 (1.0-2.1); ALBUMIN 3.2 g/dL (3.5-5.0); CALCIUM 8.5 mg/dl (8.6-10.4)
[2017-12-13] MEDS: Tiotropium 18 mcg Cap For Inhalation INH SCH (07:59)
[2017-12-13] MEDS: Fluticasone-Salmeterol 250-50mcg Diskus INH SCH ×2 (07:59→19:51)
[2017-12-13] MEDS: (Novolin R) Insulin Human Regular 100 units/ml vial SC SCH ×4 (08:15→21:14)
[2017-12-13] MEDS: Metoprolol Succinate 25 mg XL Tab PO SCH (10:44)
[2017-12-13] MEDS: Ranolazine 500 mg Extended Release Tablets PO SCH ×2 (10:44→19:28)
[2017-12-13] MEDS: Pantoprazole 40 mg EC Tab PO SCH (10:54)
--- NOTE | 2017-12-13 12:17 | PN ---
DATE: SUBJECTIVE: I saw her this morning. She did not know where she was. I explained to her she was in [facility]. She is asking for amlodipine 0.5. For the most part, she is pleasant. No chest pain or shortness of breath. She would like to go home, but she will be back in an hour of going home. She cannot stay at home. She does not have that mental capacity. She has very big cardiac disease, end-stage cardiac disease. I would like to put her in a alf as cardiac if possible, but she needs 24-hour care. PHYSICAL EXAMINATION VITAL SIGNS: She has 97.5 temperature, 62 pulse, 151/70 blood pressure, 20 respiratory rate, 100% O2 saturation on 2L nasal cannula. HEENT: Head is atraumatic and normocephalic. HEART: Regular rate with decreased breath sounds, but clear. ABDOMEN: Soft and nontender. Positive bowel sounds. EXTREMITIES: No edema. MEDICATIONS: She is currently on Advair Apresoline, Drisdol, Ecotrin, Klor-Con, heparin, Imdur, Lasix, morphine, vitamins, Novolin, and Pepcid. She is on prednisone 40 mg, Protonix 40, Ranexa, Spiriva, Toprol, and Xanax. She is being seen by Renal, Psychiatry, GI, Cardiology. LABORATORY DATA: She has a 4.2 white count, 11.3 hemoglobin, 32.6 hematocrit, with 145 platelets. She has a 136 sodium, potassium 3.6, BUN 41, creatinine 1.7. Last blood sugar was 117. Calcium is 8.4, total bilirubin is 0.48, AST is 30, ALT is 94, alk phos 69, total protein 5.2. PLAN: We will see how Case Management, Social Work help us take care of her at the facility. I encouraged her to get out of bed everyday. She was on a one-to-one for her safety. She has critical triple-vessel disease. John Brown DO [facility]ALTH[facility]
[2017-12-13] MEDS: Multivitamin Vitamin B Complex (Nephro-Vite) Tab PO SCH (12:30)
--- NOTE | 2017-12-13 14:48 | CP.PCM.PN ---
Subjective - Date & Time of Evaluation Date of Evaluation: 12/13/17 Time of Evaluation: 14:48 - Subjective Subjective: Nephrology Consultation Note: Assessment: Stable NSTEMI, CHF/COPD exacerbation with pleural effusions/pulm congestion Acute Kidney Injury (N17.9) possibly due to CHF/cardiorenal, hemodynamic CAD with 3 vessel disease Diabetic chronic Kidney Disease (E11.22) Hypertensive Chronic Kidney Disease (I12.9) Chronic Kidney Disease (N18.3) Stage 3 with 1.7 gram proteinuria (R80.9) likely due to ETHEL, NSAIDs Anemia (D64.9), HTN (I12.9), Rt JASON 60%, PVD, CAD, CA breast renal cysts vit D def Plan No acute need for renal replacement therapy at this time. Hypertension control with meds as ordered.hold ACEI/ARB due to ETHEL Monitor Input/Output, daily weights and renal function with basic metabolic panel supplement electrolytes as needed started iron supplement, MVI and weekly Vit D continue with diuretics getting inhalers for COPD. Added prednisone orally as well Dose meds/antibiotics for reduced GFR. Avoid fleets enema/magnesium based laxatives. Avoid nephrotoxins/NSAIDs/ iodinated contrast (unless needed emergently) Glycemic control Further work up/management as per primary team Thanks for allowing me to participate in care of your patient. Will follow patient with you. Please call if any Qs. d/w team Dr Shiraz Husain Office: [phone] reason for consult: ETHEL HPI: Pt is a 72 F with hx of diabetes Mellitus (years), hypertension (many years ), CAD s/p stent, PVD s/p iliac stent, Rt renal artery stenosis 60%, Ca breast s /p chemo presented with complaints of chest pain and SOB, managed for CHF and NSTEMI in past, reported heavy use of NSAIDs as naproxen, up to 10 tab/day for months probably has baseline CKD with cr 1.0-1.2 with intermittent AKIs ROS: She is awake today, but irritable. Feels short of breath on exertion. Denies any urinary complaint. No nausea vomiting. No pain abdomen Physical Examination: General Appearance: Comfortable, in no acute respiratory distress Vitals reviewed and noted as below Head; Atraumatic, normocephalic ENT: no ulcers no thrush. Tongue is midline. Oropharynx: no rash or ulcers. EYES: Pupils are equal, round and reactive to light accommodation. Eye muscles and extra-ocular movement intact. Sclera is anicteric. Neck; supple no lymphadenopathy, no thyromegaly or bruit Lungs: Normal respiratory rate/effort. Breath sounds bilateral decreased at bases with few wheeze Bibasal Heart: Normal rate. s1s2 normal. No rub or gallop. Extremities: no edema. No varicose veins Neurological: Patient is Awake alert follow commands. Moving all 4 extremities. No focal deficit Skin: Warm and dry. Normal turgor. No rash. Palpitation: Normal elasticity for age Abdomen: Abdomen is soft. Bowel sounds +. There is no abdominal tenderness, no guarding/rigidity no organomegaly Psych: Limited insight. Patient is very irritable. Screaming and yelling at times MSK: no joint tenderness or swelling. Digits and nails normal, no deformity : kidney or bladder not palpable Labs/imaging reviewed. Past medical history, past surgical history, family history, social history, allergy reviewed and noted as below Family hx: no hx of CKD. Rest non-contributory sono jun 2017: simple cyst. previous CT showed stable complex cyst left kidney echo; moderate to severe TR SPEP/AMY neg, serum FLC assay WNL. Vit D <12.8 PTH 168 TSAT 4% Ferritin 19 Hep B and C neg Objective - Vital Signs/Intake and Output Vital Signs (last 24 hours): Temp Pulse Resp BP Pulse Ox 97.5 F L 69 20 150/74 100 12/13/17 07:00 12/13/17 07:00 12/13/17 07:00 12/13/17 10:50 12/13/17 07:00 Intake and Output: 12/13/17 12/13/17 06:59 18:59 Intake Total 340 Balance 340 - Medications Medications: Current Medications Alprazolam (Xanax) 0.25 mg PO Q8H [facility] Stop: 12/18/17 12:31 Last Admin: 12/13/17 12:42 Dose: Not Given Aspirin (Ecotrin) 81 mg PO DAILY [facility] Last Admin: 12/13/17 10:57 Dose: 81 mg Ergocalciferol (Drisdol 50,000 Intl Units Cap) 1 cap PO Q7D [facility] Last Admin: 12/11/17 11:22 Dose: 1 cap Famotidine (Pepcid) 20 mg PO DAILY [facility] Last Admin: 12/13/17 10:44 Dose: 20 mg Ferrous Gluconate (Fergon) 324 mg PO TID [facility] Last Admin: 12/13/17 14:31 Dose: 324 mg Furosemide (Lasix) 20 mg IVP DAILY [facility] Last Admin: 12/13/17 10:50 Dose: 20 mg Heparin Sodium (Porcine) (Heparin) 5,000 units SC Q12 [facility] Last Admin: 12/13/17 10:43 Dose: 5,000 units Hydralazine HCl (Apresoline) 75 mg PO TID [facility] Last Admin: 12/13/17 14:31 Dose: 75 mg Insulin Human Regular (Novolin R) 0 unit SC ACHS [facility] PRN Reason: Protocol Last Admin: 12/13/17 12:25 Dose: 3 unit Isosorbide Mononitrate (Imdur) 60 mg PO DAILY [facility] Last Admin: 12/13/17 10:44 Dose: 60 mg Metoprolol Succinate (Toprol Xl) 25 mg PO DAILY [facility] Last Admin: 12/13/17 10:44 Dose: 25 mg Morphine Sulfate (Morphine) 2 mg IVP Q3 PRN PRN Reason: Pain, moderate (4-7) Last Admin: 12/13/17 08:32 Dose: 2 mg Pantoprazole Sodium (Protonix Ec Tab) 40 mg PO DAILY [facility] Last Admin: 12/13/17 10:54 Dose: 40 mg Prednisone (Prednisone Tab) 40 mg PO DAILY [facility] Stop: 12/17/17 15:01 Last Admin: 12/13/17 10:51 Dose: 40 mg Ranolazine (Ranexa) 500 mg PO BID [facility] Last Admin: 12/13/17 10:44 Dose: 500 mg Fluticasone/Salmeterol (Advair Diskus 250/50) 1 puff INH RQ12 [facility] Last Admin: 12/13/17 07:59 Dose: 1 puff Tiotropium [place] (Spiriva) 18 mcg INH RQ24 [facility] Last Admin: 12/13/17 07:59 Dose: 18 mcg Vitamin B Complex/Vit C/Folic Acid (Nephro-Karolyn) 1 tab PO 0800 [facility] Last Admin: 12/13/17 12:30 Dose: 1 tab - Labs Labs: 12/13/17 07:12 12/13/17 07:12 PT 17.3 SECONDS (9.7-12.2) H 12/09/17 00:22 INR 1.5 12/09/17 00:22 APTT 34 SECONDS (21-34) 12/09/17 00:22
--- NOTE | 2017-12-13 22:38 | PN ---
DATE: SUBJECTIVE: The patient is seen. The patient is less irritable, but very med seeking today. The patient wants her morphine p.r.n. to be given continuously, but the patient is also on Xanax. Her Xanax dose was held as she became very lethargic. The patient also has significant cardiac problems. Today, she has been compliant, but still appears to have irritability and confusion. The patient is less petrified about going home. VITAL SIGNS: Temperature is 97.6, pulse rate 60, blood pressure is 122/62, respirations 18, oxygen saturation 100. REVIEW OF SYSTEMS: GENERAL: The patient is seen in her room with close monitoring. Less irritable but she is verbally abusive at times. The patient still wants more pain medication. SKIN: No diaphoresis. HEENT: No headache or dizziness. NECK: Supple. RESPIRATORY: Has chronic dyspnea. Not coughing. CARDIOVASCULAR: No chest pain. GASTROINTESTINAL: Appetite is variable. MUSCULOSKELETAL: Complaining of back pain, asking morphine p.r.n. Still has generalized weakness. EXTREMITIES: The patient moves extremities. NEUROLOGIC: Alert with periods of confusion. GENITOURINARY: No dysuria. MENTAL STATUS EXAMINATION: Elderly female who looks stated age, less anxious but still irritable. Speech is spontaneous but verbally abusive. Affect is reactive. Thought process is confused off and on. Thought content, no overt psychosis. No suicidal or homicidal ideation. Attention and memory seem to be limited. Insight and judgment limited. Impulse control is guarded at this time. IMPRESSION: History of delirium, metabolic encephalopathy as well as dementia, anxiety, chronic congestive heart failure. PLAN AND RECOMMENDATION: The patient is seen, meds reviewed. Continue Xanax as ordered. Continue morphine p.r.n., but the patient advised as well to take these not all together. It might cause respiratory depression and change in mental status. The patient still needs 24-hour care and cannot take care of herself. She is very noncompliant with treatment and plan. However for now, we will keep her current psych meds and also pain medication. We will keep close monitoring for the patient. The patient also is on fall precaution. Demetrius Burdick MD [facility] # [id number]
[2017-12-14] MEDS: (Novolin R) Insulin Human Regular 100 units/ml vial SC SCH ×3 (07:27→22:52)
[2017-12-14] MEDS: Tiotropium 18 mcg Cap For Inhalation INH SCH (08:13)
[2017-12-14] MEDS: Fluticasone-Salmeterol 250-50mcg Diskus INH SCH ×2 (08:13→19:30)
[2017-12-14 08:33] LABS: HEMOGLOBIN 11.8 g/dL (11.0-16.0); MEAN CELL VOLUME 80.2 fL (81.0-99.0); MEAN CORPUSCULAR HEMOGLOBIN 26.6 pg (27.0-31.0); MEAN CORPUSCULAR HGB CONC 33.2 g/dL (33.0-37.0); MEAN PLATELET VOLUME 10.3 fL (7.2-11.7); RBC 4.43 Mil/uL (3.80-5.20); RED CELL DISTRIBUTION WIDTH 21.8 % (11.5-14.5); WHITE BLOOD COUNT 7.6 K/uL (4.8-10.8)
[2017-12-14] MEDS: Multivitamin Vitamin B Complex (Nephro-Vite) Tab PO SCH (08:45)
[2017-12-14 08:46] LABS: ALB/GLOB RATIO 1.2 (1.0-2.1); ALBUMIN 3.3 g/dL (3.5-5.0); CALCIUM 8.7 mg/dl (8.6-10.4)
--- NOTE | 2017-12-14 09:12 | PN ---
DATE: SUBJECTIVE: I saw her in her room with a one-to-one. She is alert. She wants to know when she can go home, but she cannot go home. She is on Advair, Apresoline, Drisdol, Ecotrin, Fergon, heparin, Imdur, Lasix, Nephro-Karolyn, Novolin, Pepcid, prednisone as per renal, Protonix, Ranexa, Spiriva, Toprol, and Xanax. PHYSICAL EXAMINATION: VITAL SIGNS: Temperature 97.9, pulse 68, blood pressure 149/67, respiratory rate 20, O2 saturation 100% on 2L nasal cannula. GENERAL: She is trying to get out of bed. HEENT: Head is atraumatic, normocephalic. HEART: Regular rate. LUNGS: Clear to auscultation with decreased breath sounds. ABDOMEN: Soft. EXTREMITIES: No edema. MUSCULOSKELETAL: Extraocular muscles are intact. LABORATORY DATA: She has a 4.5 white count, 12.8 hemoglobin, 38.9 hematocrit, with 182 platelets. Sodium 135, potassium 4.3, BUN 43, creatinine 1.7, GFR is 29, blood sugar was 196, calcium is 8.5, total bilirubin is 0.5, AST is 23, ALT is 63, alk phos 60, total protein is 7.8. PLAN: I do believe she is not safe to go home, waiting for case management to help us find a place for her to go. She is being back and forth to the home and hospitals for any months now. She cannot stay home for longer than an hour or two, she ends back in the hospital. She refused open heart surgery, and finally agreed to it, and she was sent back home from [facility], but within an hour, she was back in the hospital. She has severe CAD. John Brown DO
[2017-12-14] MEDS: Metoprolol Succinate 25 mg XL Tab PO SCH (10:20)
[2017-12-14] MEDS: Pantoprazole 40 mg EC Tab PO SCH (10:20)
[2017-12-14] MEDS: Ranolazine 500 mg Extended Release Tablets PO SCH ×2 (10:20→18:23)
--- NOTE | 2017-12-14 14:22 | CP.PCM.PN ---
Subjective - Date & Time of Evaluation Date of Evaluation: 12/14/17 Time of Evaluation: 14:21 - Subjective Subjective: Nephrology Consultation Note: Assessment: Stable NSTEMI, CHF/COPD exacerbation with pleural effusions/pulm congestion Acute Kidney Injury (N17.9) possibly due to CHF/cardiorenal, hemodynamic CAD with 3 vessel disease Diabetic chronic Kidney Disease (E11.22) Hypertensive Chronic Kidney Disease (I12.9) Chronic Kidney Disease (N18.3) Stage 3 with 1.7 gram proteinuria (R80.9) likely due to ETHEL, NSAIDs Anemia (D64.9), HTN (I12.9), Rt JASON 60%, PVD, CAD, CA breast renal cysts vit D def Plan No acute need for renal replacement therapy at this time. Hypertension control with meds as ordered.hold ACEI/ARB due to ETHEL Monitor Input/Output, daily weights and renal function with basic metabolic panel supplement electrolytes as needed started iron supplement, MVI and weekly Vit D continue with diuretics getting inhalers for COPD. Added prednisone orally as well Dose meds/antibiotics for reduced GFR. Avoid fleets enema/magnesium based laxatives. Avoid nephrotoxins/NSAIDs/ iodinated contrast (unless needed emergently) Glycemic control Further work up/management as per primary team Thanks for allowing me to participate in care of your patient. Will follow patient with you. Please call if any Qs. d/w team Dr Shiraz Husain Office: [phone] reason for consult: ETHEL HPI: Pt is a 72 F with hx of diabetes Mellitus (years), hypertension (many years ), CAD s/p stent, PVD s/p iliac stent, Rt renal artery stenosis 60%, Ca breast s /p chemo presented with complaints of chest pain and SOB, managed for CHF and NSTEMI in past, reported heavy use of NSAIDs as naproxen, up to 10 tab/day for months probably has baseline CKD with cr 1.0-1.2 with intermittent AKIs ROS: She is irritable. wants to go home. Feels short of breath on exertion. Denies any urinary complaint. No nausea vomiting. No pain abdomen Physical Examination: General Appearance: Comfortable, in no acute respiratory distress Vitals reviewed and noted as below Head; Atraumatic, normocephalic ENT: no ulcers no thrush. Tongue is midline. Oropharynx: no rash or ulcers. EYES: Pupils are equal, round and reactive to light accommodation. Eye muscles and extra-ocular movement intact. Sclera is anicteric. Neck; supple no lymphadenopathy, no thyromegaly or bruit Lungs: Normal respiratory rate/effort. Breath sounds bilateral decreased at bases with few wheeze Bibasal Heart: Normal rate. s1s2 normal. No rub or gallop. Extremities: no edema. No varicose veins Neurological: Patient is Awake alert follow commands. Moving all 4 extremities. No focal deficit Skin: Warm and dry. Normal turgor. No rash. Palpitation: Normal elasticity for age Abdomen: Abdomen is soft. Bowel sounds +. There is no abdominal tenderness, no guarding/rigidity no organomegaly Psych: Limited insight. Patient is very irritable. Screaming and yelling at times MSK: no joint tenderness or swelling. Digits and nails normal, no deformity : kidney or bladder not palpable Labs/imaging reviewed. Past medical history, past surgical history, family history, social history, allergy reviewed and noted as below Family hx: no hx of CKD. Rest non-contributory sono jun 2017: simple cyst. previous CT showed stable complex cyst left kidney echo; moderate to severe TR SPEP/AMY neg, serum FLC assay WNL. Vit D <12.8 PTH 168 TSAT 4% Ferritin 19 Hep B and C neg Objective - Vital Signs/Intake and Output Vital Signs (last 24 hours): Temp Pulse Resp BP Pulse Ox 98.1 F 75 20 160/73 H 100 12/14/17 08:34 12/14/17 08:34 12/14/17 08:34 12/14/17 10:24 12/14/17 08:34 Intake and Output: 12/14/17 12/14/17 06:59 18:59 Intake Total 240 200 Balance 240 200 - Medications Medications: Current Medications Alprazolam (Xanax) 0.25 mg PO Q8H [facility] Stop: 12/18/17 12:31 Last Admin: 12/14/17 12:54 Dose: 0.25 mg Aspirin (Ecotrin) 81 mg PO DAILY [facility] Last Admin: 12/14/17 10:19 Dose: 81 mg Ergocalciferol (Drisdol 50,000 Intl Units Cap) 1 cap PO Q7D [facility] Last Admin: 12/11/17 11:22 Dose: 1 cap Famotidine (Pepcid) 20 mg PO DAILY [facility] Last Admin: 12/14/17 10:20 Dose: 20 mg Ferrous Gluconate (Fergon) 324 mg PO TID [facility] Last Admin: 12/14/17 10:21 Dose: 324 mg Furosemide (Lasix) 20 mg IVP DAILY [facility] Last Admin: 12/14/17 10:24 Dose: 20 mg Heparin Sodium (Porcine) (Heparin) 5,000 units SC Q12 [facility] Last Admin: 12/14/17 10:21 Dose: 5,000 units Hydralazine HCl (Apresoline) 75 mg PO TID [facility] Last Admin: 12/14/17 10:24 Dose: 75 mg Insulin Human Regular (Novolin R) 0 unit SC ACHS [facility] PRN Reason: Protocol Last Admin: 12/14/17 07:27 Dose: Not Given Isosorbide Mononitrate (Imdur) 60 mg PO DAILY [facility] Last Admin: 12/14/17 10:19 Dose: 60 mg Metoprolol Succinate (Toprol Xl) 25 mg PO DAILY [facility] Last Admin: 12/14/17 10:20 Dose: 25 mg Morphine Sulfate (Morphine) 1 mg IVP Q3 PRN PRN Reason: Pain, moderate (4-7) Last Admin: 12/14/17 09:10 Dose: 1 mg Pantoprazole Sodium (Protonix Ec Tab) 40 mg PO DAILY [facility] Last Admin: 12/14/17 10:20 Dose: 40 mg Prednisone (Prednisone Tab) 40 mg PO DAILY [facility] Stop: 12/17/17 15:01 Last Admin: 12/14/17 10:20 Dose: 40 mg Ranolazine (Ranexa) 500 mg PO BID [facility] Last Admin: 12/14/17 10:20 Dose: 500 mg Fluticasone/Salmeterol (Advair Diskus 250/50) 1 puff INH RQ12 [facility] Last Admin: 12/14/17 08:13 Dose: 1 puff Tiotropium [place] (Spiriva) 18 mcg INH RQ24 [facility] Last Admin: 12/14/17 08:13 Dose: 18 mcg Vitamin B Complex/Vit C/Folic Acid (Nephro-Karolyn) 1 tab PO 0800 [facility] Last Admin: 12/14/17 08:45 Dose: 1 tab - Labs Labs: 12/14/17 08:28 12/14/17 08:28 PT 17.3 SECONDS (9.7-12.2) H 12/09/17 00:22 INR 1.5 12/09/17 00:22 APTT 34 SECONDS (21-34) 12/09/17 00:22
--- NOTE | 2017-12-15 06:14 | PN ---
DATE: 12/14/2017 SUBJECTIVE: The patient is noted to have been drowsy today. She was early given Xanax. The patient is med seeking. The patient continues to be irritable and verbally abusive at times and wants to go home. PHYSICAL EXAMINATION: VITAL SIGNS: Temperature 97.5, pulse 74, blood pressure 150/58, respiratory rate 20, and oxygen saturation 100% on room air. GENERAL: At this time, the patient is drowsy when seen but when seen in her room, she was given Xanax earlier and pain meds. The patient, according to the nurse, was not agitated but still very irritable. Today, she is very drowsy. She could hardly talked due to the medication but arousable. SKIN: No diaphoresis. HEENT: No headache or dizziness. NECK: Supple. RESPIRATORY: No dyspnea. CARDIOVASCULAR: No chest pain. GASTROINTESTINAL: The patient ate her dinner later because she was too drowsy. EXTREMITIES: Moves extremities. NEUROLOGIC: Alert with periods of confusion. GENITOURINARY: No dysuria. MUSCULOSKELETAL: No generalized weakness. MENTAL STATUS EXAMINATION: Elderly female, seen in her room, very drowsy from the medication. Mood is dysphoric. Affect is restricted. Speech is slow. Thought process is confused off and on. Thought content, no overt psychosis, Patient wants to go home. No suicidal or homicidal ideation. Attention and memory seem to be limited. Insight and judgment limited. Impulse control is guarded at this time. IMPRESSION: Delirium, metabolic encephalopathy as well as senile onset dementia with mood changes. PLAN AND RECOMMENDATIONS: The patient is seen, meds reviewed. Continue Xanax as ordered. The patient advised to use some morphine p.r.n. sparingly. Continue treatment plan as outlined. The patient is still unsafe for discharge and will need 24-hour care if discharged to home. Continue treatment plan as outlined. Demetrius Burdick MD MTDD
[2017-12-15 06:20] LABS: HEMOGLOBIN 10.6 g/dL (11.0-16.0); MEAN CELL VOLUME 80.3 fL (81.0-99.0); MEAN CORPUSCULAR HEMOGLOBIN 26.2 pg (27.0-31.0); MEAN CORPUSCULAR HGB CONC 32.6 g/dL (33.0-37.0); MEAN PLATELET VOLUME 10.1 fL (7.2-11.7); RBC 4.03 Mil/uL (3.80-5.20); RED CELL DISTRIBUTION WIDTH 21.8 % (11.5-14.5); WHITE BLOOD COUNT 6.9 K/uL (4.8-10.8)
[2017-12-15 06:45] LABS: ALB/GLOB RATIO 1.3 (1.0-2.1); ALBUMIN 2.9 g/dL (3.5-5.0); CALCIUM 8.6 mg/dl (8.6-10.4)
[2017-12-15] MEDS: Multivitamin Vitamin B Complex (Nephro-Vite) Tab PO SCH (09:15)
[2017-12-15] MEDS: Fluticasone-Salmeterol 250-50mcg Diskus INH SCH (10:01)
[2017-12-15] MEDS: Tiotropium 18 mcg Cap For Inhalation INH SCH (10:01)
[2017-12-15] MEDS: Metoprolol Succinate 25 mg XL Tab PO SCH (10:20)
[2017-12-15] MEDS: Pantoprazole 40 mg EC Tab PO SCH (10:20)
[2017-12-15] MEDS: Ranolazine 500 mg Extended Release Tablets PO SCH ×2 (10:20→17:40)
[2017-12-15] MEDS: (Novolin R) Insulin Human Regular 100 units/ml vial SC SCH ×4 (10:21→21:14)
--- NOTE | 2017-12-15 11:13 | PN ---
DATE: SUBJECTIVE: I saw her resting comfortably in bed. She slept very well. She is very upset today, angry that she is in the hospital and wants to go home. I explained to her that she cannot go home; she is only home for an hour and she ends up right back to the emergency room by calling 911 and that has been her way of doing things for the past 6 months to a year and really noncompliant, and I think she needs going for healthcare in the senior care instead of healthcare at home, which she cannot do. PHYSICAL EXAMINATION: VITAL SIGNS: She has 98 temperature, 78 pulse, 146/65 blood pressure, 20 respiratory rate, 95% O2 saturation on room air. HEENT: Head is atraumatic, normocephalic. HEART: Regular rate. LUNGS: Decreased breath sounds, but clear. ABDOMEN: Soft. EXTREMITIES: No edema. MEDICATIONS: She is currently on Advair, Apresoline, Drisdol, Ecotrin, Fergon, Imdur, Lasix, morphine, Nephro-Karolyn, Novolin, Pepcid, prednisone, Protonix, Ranexa, Spiriva, Toprol, and Xanax. LABORATORY DATA: She has 136 sodium, potassium 4.2, BUN is 14, creatinine 1.5, GFR is 34, sugar is 141, calcium is 8.6, AST is 50, ALT is 43, alkaline phosphatase 48, total protein is 7.1. White count 6.9, hemoglobin 10.6, hematocrit 32.4, and platelets are 192. She is being seen by Psychiatry, Renal, and Cardiology. She has severe triple vessel disease needing triple vessel coronary artery bypass grafting. She was originally at [facility] and she refused. Every time she goes home, she is back in the hospital within an hour and she needs senior care placement at this time. She after social media senior associate and case management find her a place. John Brown DO MTDJeaneth
--- NOTE | 2017-12-15 16:12 | CP.PCM.PN ---
Subjective - Date & Time of Evaluation Date of Evaluation: 12/15/17 Time of Evaluation: 16:12 - Subjective Subjective: Nephrology Consultation Note: Assessment: Stable NSTEMI, CHF/COPD exacerbation with pleural effusions/pulm congestion Acute Kidney Injury (N17.9) possibly due to CHF/cardiorenal, hemodynamic CAD with 3 vessel disease Diabetic chronic Kidney Disease (E11.22) Hypertensive Chronic Kidney Disease (I12.9) Chronic Kidney Disease (N18.3) Stage 3 with 1.7 gram proteinuria (R80.9) likely due to ETHEL, NSAIDs Anemia (D64.9), HTN (I12.9), Rt JASON 60%, PVD, CAD, CA breast renal cysts vit D def Plan No acute need for renal replacement therapy at this time. Hypertension control with meds as ordered.hold ACEI/ARB due to ETHEL Monitor Input/Output, daily weights and renal function with basic metabolic panel supplement electrolytes as needed started iron supplement, MVI and weekly Vit D continue with diuretics getting inhalers for COPD. Added prednisone orally as well Dose meds/antibiotics for reduced GFR. Avoid fleets enema/magnesium based laxatives. Avoid nephrotoxins/NSAIDs/ iodinated contrast (unless needed emergently) Glycemic control Further work up/management as per primary team Thanks for allowing me to participate in care of your patient. Will follow patient with you. Please call if any Qs. d/w team Dr Shiraz Husain Office: [phone] reason for consult: ETHEL HPI: Pt is a 72 F with hx of diabetes Mellitus (years), hypertension (many years ), CAD s/p stent, PVD s/p iliac stent, Rt renal artery stenosis 60%, Ca breast s /p chemo presented with complaints of chest pain and SOB, managed for CHF and NSTEMI in past, reported heavy use of NSAIDs as naproxen, up to 10 tab/day for months probably has baseline CKD with cr 1.0-1.2 with intermittent AKIs ROS: She is irritable. wants to go home. Feels short of breath on exertion. Denies any urinary complaint. No nausea vomiting. No pain abdomen Physical Examination: General Appearance: Comfortable, in no acute respiratory distress Vitals reviewed and noted as below Head; Atraumatic, normocephalic ENT: no ulcers no thrush. Tongue is midline. Oropharynx: no rash or ulcers. EYES: Pupils are equal, round and reactive to light accommodation. Eye muscles and extra-ocular movement intact. Sclera is anicteric. Neck; supple no lymphadenopathy, no thyromegaly or bruit Lungs: Normal respiratory rate/effort. Breath sounds bilateral decreased at bases no wheeze Heart: Normal rate. s1s2 normal. No rub or gallop. Extremities: no edema. No varicose veins Neurological: Patient is Awake alert follow commands. Moving all 4 extremities. No focal deficit Skin: Warm and dry. Normal turgor. No rash. Palpitation: Normal elasticity for age Abdomen: Abdomen is soft. Bowel sounds +. There is no abdominal tenderness, no guarding/rigidity no organomegaly Psych: Limited insight. Patient is very irritable. Screaming and yelling at times MSK: no joint tenderness or swelling. Digits and nails normal, no deformity : kidney or bladder not palpable Labs/imaging reviewed. Past medical history, past surgical history, family history, social history, allergy reviewed and noted as below Family hx: no hx of CKD. Rest non-contributory sono jun 2017: simple cyst. previous CT showed stable complex cyst left kidney echo; moderate to severe TR SPEP/AMY neg, serum FLC assay WNL. Vit D <12.8 PTH 168 TSAT 4% Ferritin 19 Hep B and C neg Objective - Vital Signs/Intake and Output Vital Signs (last 24 hours): Temp Pulse Resp BP Pulse Ox 97.8 F 69 18 158/72 H 100 12/15/17 15:42 12/15/17 15:55 12/15/17 15:42 12/15/17 15:42 12/15/17 15:42 Intake and Output: 12/15/17 12/15/17 06:59 18:59 Intake Total 600 500 Output Total 400 400 Balance 200 100 - Medications Medications: Current Medications Alprazolam (Xanax) 0.25 mg PO Q8H [facility] Stop: 12/18/17 12:31 Last Admin: 12/15/17 13:00 Dose: 0.25 mg Aspirin (Ecotrin) 81 mg PO DAILY [facility] Last Admin: 12/15/17 10:20 Dose: 81 mg Ergocalciferol (Drisdol 50,000 Intl Units Cap) 1 cap PO Q7D [facility] Last Admin: 12/11/17 11:22 Dose: 1 cap Famotidine (Pepcid) 20 mg PO DAILY [facility] Last Admin: 12/15/17 10:20 Dose: 20 mg Ferrous Gluconate (Fergon) 324 mg PO TID [facility] Last Admin: 12/15/17 13:38 Dose: 324 mg Furosemide (Lasix) 20 mg IVP DAILY [facility] Last Admin: 12/15/17 10:19 Dose: 20 mg Heparin Sodium (Porcine) (Heparin) 5,000 units SC Q12 [facility] Hydralazine HCl (Apresoline) 75 mg PO TID [facility] Last Admin: 12/15/17 13:38 Dose: 75 mg Insulin Human Regular (Novolin R) 0 unit SC ACHS [facility] PRN Reason: Protocol Last Admin: 12/15/17 12:00 Dose: Not Given Isosorbide Mononitrate (Imdur) 60 mg PO DAILY [facility] Last Admin: 12/15/17 10:20 Dose: 60 mg Metoprolol Succinate (Toprol Xl) 25 mg PO DAILY [facility] Last Admin: 12/15/17 10:20 Dose: 25 mg Morphine Sulfate (Morphine) 1 mg IVP Q3 PRN PRN Reason: Pain, moderate (4-7) Last Admin: 12/15/17 16:09 Dose: 1 mg Pantoprazole Sodium (Protonix Ec Tab) 40 mg PO DAILY [facility] Last Admin: 12/15/17 10:20 Dose: 40 mg Prednisone (Prednisone Tab) 40 mg PO DAILY [facility] Stop: 12/17/17 15:01 Last Admin: 12/15/17 10:20 Dose: 40 mg Ranolazine (Ranexa) 500 mg PO BID [facility] Last Admin: 12/15/17 10:20 Dose: 500 mg Fluticasone/Salmeterol (Advair Diskus 250/50) 1 puff INH RQ12 [facility] Last Admin: 12/15/17 10:01 Dose: Not Given Tiotropium [place] (Spiriva) 18 mcg INH RQ24 [facility] Last Admin: 12/15/17 10:01 Dose: Not Given Vitamin B Complex/Vit C/Folic Acid (Nephro-Karolyn) 1 tab PO 0800 [facility] Last Admin: 12/15/17 09:15 Dose: 1 tab - Labs Labs: 12/15/17 06:11 12/15/17 06:11 PT 17.3 SECONDS (9.7-12.2) H 12/09/17 00:22 INR 1.5 12/09/17 00:22 APTT 34 SECONDS (21-34) 12/09/17 00:22
--- NOTE | 2017-12-15 22:00 | PN ---
DATE: SUBJECTIVE: The patient is seen, the patient is still irritable today, was able to engage for longer conversation. She says she wants to go home. She also mentioned that she was told by her management that she can have oxygen at home. The patient is also a smoker. The patient still wants to go home but she cannot take care of herself. The patient is taking Xanax 0.25 mg p.o. q. 8 hours and has been asking for morphine p.r.n. because she has back pain. The patient needs 24-hour care and cannot be discharged home without 24-hour care. VITAL SIGNS: Temperature is 97.8, pulse 69, blood pressure 158/70, respirations 18, oxygen saturation is 100%. REVIEW OF SYSTEMS: GENERAL: The patient is sleepy, but arousable, seen in her room. The patient still wants to go home, is irritable. SKIN: No diaphoresis. HEENT: No headache. No dizziness. NECK: Supple. RESPIRATORY: Has off and on dyspnea. CARDIOVASCULAR: No chest pain. GASTROINTESTINAL: Appetite is variable. EXTREMITIES: The patient has a steady gait. MUSCULOSKELETAL: Generalized weakness. NEURO: Alert with periods of confusion. GENITOURINARY: No dysuria. MENTAL STATUS EXAMINATION: Elderly female who looks stated age, oriented to place, person, and time. Mood is irritable. Affect is reactive. Speech is spontaneous. Thought process is forgetful. Thought content, the patient still preoccupied about going home. No psychosis. No suicidal or homicidal ideation. Attention and memory seem to be limited. Insight and judgment limited. Impulse control is fair at this time. IMPRESSION: Delirium, metabolic encephalopathy, superimposed on dementia, as well as history of congestive heart failure, chronic obstructive pulmonary disease, history of hypertension, urinary tract infection. PLAN AND RECOMMENDATIONS: The patient seen, meds reviewed. Continue Xanax as ordered. Continue morphine p.r.n. The patient at this time will need 24-hour care when discharged to home. She cannot take care of herself alone. The patient may eventually need assisted placement, but the patient still preoccupied about going home. Demetrius Burdick MD [facility] # [id number]
[2017-12-16 07:45] LABS: HEMOGLOBIN 11.5 g/dL (11.0-16.0); MEAN CELL VOLUME 79.7 fL (81.0-99.0); MEAN CORPUSCULAR HEMOGLOBIN 26.6 pg (27.0-31.0); MEAN CORPUSCULAR HGB CONC 33.4 g/dL (33.0-37.0); MEAN PLATELET VOLUME 9.8 fL (7.2-11.7); RBC 4.32 Mil/uL (3.80-5.20); RED CELL DISTRIBUTION WIDTH 21.9 % (11.5-14.5); WHITE BLOOD COUNT 6.5 K/uL (4.8-10.8)
[2017-12-16 08:05] LABS: ALB/GLOB RATIO 1.4 (1.0-2.1); CALCIUM 8.1 mg/dl (8.6-10.4)
[2017-12-16] MEDS: Tiotropium 18 mcg Cap For Inhalation INH SCH (08:16)
[2017-12-16] MEDS: Fluticasone-Salmeterol 250-50mcg Diskus INH SCH ×2 (08:16→20:20)
[2017-12-16] MEDS: (Novolin R) Insulin Human Regular 100 units/ml vial SC SCH ×5 (08:30→21:41)
[2017-12-16] MEDS: Multivitamin Vitamin B Complex (Nephro-Vite) Tab PO SCH (08:37)
--- NOTE | 2017-12-16 10:28 | CP.PCM.PN ---
Subjective - Date & Time of Evaluation Date of Evaluation: 12/16/17 Time of Evaluation: 10:26 - Subjective Subjective: Nephrology Consultation Note: Assessment: Stable NSTEMI, CHF/COPD exacerbation with pleural effusions/pulm congestion Acute Kidney Injury (N17.9) possibly due to CHF/cardiorenal, hemodynamic CAD with 3 vessel disease Diabetic chronic Kidney Disease (E11.22) Hypertensive Chronic Kidney Disease (I12.9) Chronic Kidney Disease (N18.3) Stage 3 with 1.7 gram proteinuria (R80.9) likely due to ETHEL, NSAIDs Anemia (D64.9), HTN (I12.9), Rt JASON 60%, PVD, CAD, CA breast renal cysts vit D def Plan No acute need for renal replacement therapy at this time. Hypertension control with meds as ordered.hold ACEI/ARB due to ETHEL Monitor Input/Output started iron supplement, MVI and weekly Vit D continue with diuretics copd per primary team Dose meds/antibiotics for reduced GFR. Physical Examination: General Appearance: Comfortable, in no acute respiratory distress Vitals reviewed and noted as below Head; Atraumatic, normocephalic ENT: no ulcers no thrush. Tongue is midline. Oropharynx: no rash or ulcers. EYES: Pupils are equal, round and reactive to light accommodation. Eye muscles and extra-ocular movement intact. Sclera is anicteric. Neck; supple no lymphadenopathy, no thyromegaly or bruit Lungs: Normal respiratory rate/effort. Breath sounds bilateral decreased at bases no wheeze Heart: Normal rate. s1s2 normal. No rub or gallop. Extremities: no edema. No varicose veins Neurological: Patient is Awake alert follow commands. Moving all 4 extremities. No focal deficit Skin: Warm and dry. Normal turgor. No rash. Palpitation: Normal elasticity for age Abdomen: Abdomen is soft. Bowel sounds +. There is no abdominal tenderness, no guarding/rigidity no organomegaly Psych: Limited insight. Patient is very irritable. Screaming and yelling at times MSK: no joint tenderness or swelling. Digits and nails normal, no deformity : kidney or bladder not palpable Objective - Vital Signs/Intake and Output Vital Signs (last 24 hours): Temp Pulse Resp BP Pulse Ox 98.0 F 52 L 20 161/69 H 96 12/16/17 09:00 12/16/17 09:00 12/16/17 09:00 12/16/17 09:00 12/16/17 09:00 Intake and Output: 12/16/17 12/16/17 06:59 18:59 Intake Total 120 Balance 120 - Medications Medications: Current Medications Alprazolam (Xanax) 0.25 mg PO Q8H [facility] Stop: 12/18/17 12:31 Last Admin: 12/16/17 04:25 Dose: 0.25 mg Aspirin (Ecotrin) 81 mg PO DAILY [facility] Last Admin: 12/15/17 10:20 Dose: 81 mg Ergocalciferol (Drisdol 50,000 Intl Units Cap) 1 cap PO Q7D [facility] Last Admin: 12/11/17 11:22 Dose: 1 cap Famotidine (Pepcid) 20 mg PO DAILY [facility] Last Admin: 12/15/17 10:20 Dose: 20 mg Ferrous Gluconate (Fergon) 324 mg PO TID [facility] Last Admin: 12/15/17 17:40 Dose: 324 mg Furosemide (Lasix) 20 mg IVP DAILY [facility] Last Admin: 12/15/17 10:19 Dose: 20 mg Heparin Sodium (Porcine) (Heparin) 5,000 units SC Q12 [facility] Last Admin: 12/15/17 21:48 Dose: Not Given Hydralazine HCl (Apresoline) 75 mg PO TID [facility] Last Admin: 12/15/17 17:40 Dose: 75 mg Insulin Human Regular (Novolin R) 0 unit SC ACHS [facility] PRN Reason: Protocol Last Admin: 12/16/17 08:30 Dose: Not Given Isosorbide Mononitrate (Imdur) 60 mg PO DAILY [facility] Last Admin: 12/15/17 10:20 Dose: 60 mg Metoprolol Succinate (Toprol Xl) 25 mg PO DAILY [facility] Last Admin: 12/15/17 10:20 Dose: 25 mg Pantoprazole Sodium (Protonix Ec Tab) 40 mg PO DAILY [facility] Last Admin: 12/15/17 10:20 Dose: 40 mg Prednisone (Prednisone Tab) 40 mg PO DAILY [facility] Stop: 12/17/17 15:01 Last Admin: 12/15/17 10:20 Dose: 40 mg Ranolazine (Ranexa) 500 mg PO BID [facility] Last Admin: 12/15/17 17:40 Dose: 500 mg Fluticasone/Salmeterol (Advair Diskus 250/50) 1 puff INH RQ12 [facility] Last Admin: 12/16/17 08:16 Dose: 1 puff Tiotropium [place] (Spiriva) 18 mcg INH RQ24 [facility] Last Admin: 12/16/17 08:16 Dose: 18 mcg Vitamin B Complex/Vit C/Folic Acid (Nephro-Karolyn) 1 tab PO 0800 [facility] Last Admin: 12/16/17 08:37 Dose: 1 tab - Labs Labs: 12/16/17 07:35 12/16/17 07:35 PT 17.3 SECONDS (9.7-12.2) H 12/09/17 00:22 INR 1.5 12/09/17 00:22 APTT 34 SECONDS (21-34) 12/09/17 00:22
[2017-12-16] MEDS: Pantoprazole 40 mg EC Tab PO SCH (10:37)
[2017-12-16] MEDS: Metoprolol Succinate 25 mg XL Tab PO SCH (10:37)
[2017-12-16] MEDS: Ranolazine 500 mg Extended Release Tablets PO SCH ×2 (10:38→18:10)
--- NOTE | 2017-12-16 20:08 | PN ---
DATE: SUBJECTIVE: The patient is seen. The patient much calmer today and sleeping, she said she wanted to rest. No verbal outburst. No screaming. Seen compliant with her meds. She still feels weak, but wants to go home. She is on Xanax 0.25 mg q.8 and patient is taking Tramadol for pain. Other than that, she is more redirectable. VITAL SIGNS: Temperature 97.9, pulse 69, blood pressure 126/66, respirations 20, oxygen saturation 99% on nasal cannula. REVIEW OF SYSTEMS: GENERAL: The patient is sleeping but arousable, not in acute respiratory distress. She states she wants to sleep. According to the nurse, she is much calmer today. She has been compliant with meds, less med seeking. SKIN: No diaphoresis. HEENT: No headache or dizziness. NECK: Supple. RESPIRATORY: Not in acute respiratory distress. No dyspnea. CARDIOVASCULAR: Chest pain. No palpitation present. GASTROINTESTINAL: The patient is eating variably. No nausea. No vomiting. EXTREMITIES: Gait is unsteady. MUSCULOSKELETAL: Feels weak. NEUROLOGIC: Alert with periods of confusion. GENITOURINARY: No dysuria. MENTAL STATUS EXAMINATION: Elderly female who looks stated age. Sleepy but arousable. Oriented to place and person. Mood is calmer. Affect is restricted. Thought process, less confused. Thought content, no overt psychosis. No suicidal or homicidal ideation, less preoccupied about going home. Attention and memory seem to be limited. Insight and judgment limited. Impulse control is improving at this time. IMPRESSION: History of delirium. Metabolic encephalopathy superimposed with dementia. The patient has a history of congestive heart failure. History of hypertension. Urinary tract infection. History of gastritis. Anxiety. The patient has history of pulmonary edema. PLAN AND RECOMMENDATIONS: The patient is seen, meds reviewed. Continue Xanax as ordered. Continue present management. The patient is awaiting medical clearance. The patient may need to go to the detention as she cannot take care of herself. She needs 24-hour care, which cannot be provided at home. The patient still wants to go home. Demetrius Burdick MD
[2017-12-17] MEDS: Fluticasone-Salmeterol 250-50mcg Diskus INH SCH ×2 (08:10→19:29)
[2017-12-17] MEDS: Tiotropium 18 mcg Cap For Inhalation INH SCH (08:10)
[2017-12-17] MEDS: (Novolin R) Insulin Human Regular 100 units/ml vial SC SCH ×5 (08:31→21:27)
[2017-12-17] MEDS: Multivitamin Vitamin B Complex (Nephro-Vite) Tab PO SCH (10:24)
[2017-12-17] MEDS: Ranolazine 500 mg Extended Release Tablets PO SCH ×2 (10:25→17:56)
[2017-12-17] MEDS: Pantoprazole 40 mg EC Tab PO SCH (10:25)
[2017-12-17] MEDS: Metoprolol Succinate 25 mg XL Tab PO SCH (10:26)
--- NOTE | 2017-12-17 12:37 | PN ---
DATE: SUBJECTIVE: She is feeling very agitated with chest pain in the hospital. I am not sure why she has not gotten out of bed and usually gets out of bed everyday. She is on Advair, Apresoline, Drisdol, Ecotrin, Fergon, heparin, Imdur, Lasix, Nephro-Karolyn, Novolin, Pepcid, prednisone, Protonix, Ranexa, Spiriva, Toprol, Ultram, and Xanax. PHYSICAL EXAMINATION: VITAL SIGNS: She has temperature 97.9, 81 pulse, 161/69 blood pressure, 20 respiratory rate, 96% oxygen saturation on 3 L nasal cannula. GENERAL: She needs to get out of bed everyday. She is trying to get out of bed everyday. HEENT: Atraumatic, normocephalic. HEART: Regular rate. LUNGS: Decreased breath sounds, but clear. ABDOMEN: Soft. EXTREMITIES: No edema. LABORATORY DATA: She has a 6.5 white count, 11.5 hemoglobin, 34.5 hematocrit, 210 platelets. She has a 137 sodium, potassium 4.1, BUN 41, creatinine 1.3, sugar is 188, calcium is 8.1, total bili is 0.4, AST is 42, ALT is 41, alk phos is 44, total protein is 5.2. She has Gram-positive cocci in the urine, any sensitivity less than 10,000. Also, she has been seen by Psychiatry, Renal, GI. Hope to get her out of bed to chair everyday. ASSESSMENT AND PLAN: She has delirium, metabolic encephalopathy, superimposed dementia, congestive heart failure, hypertension, urinary tract infection, history of gastritis, also severe coronary artery disease. She was supposed to get open heart three-vessel surgery at , but refused and now she cannot be alone for 24 hours as per Psychiatry. We will check her labs tomorrow. John Brown DO KENNETH
--- NOTE | 2017-12-17 21:17 | PN ---
DATE: SUBJECTIVE: The patient is seen. The patient is much calmer, less irritable, and states that she wants to go home. The patient is aware, however, that she cannot go home at this time, that she cannot walk, and that she needs 24-hour care at home. The patient states she has all her relatives are and she only has a friend who is helping her, named Lidia. The patient still needs 24-hour care at this time. She has been compliant with her medications. The patient's Xanax has calmed her down. The patient is feeling depressed being in the hospital. VITAL SIGNS: Temperature is 98.1, pulse of 65, blood pressure 134/67, respirations 20, oxygen saturation is 97% on room air. REVIEW OF SYSTEMS: GENERAL: The patient is seen in her room, still feeling weak, less irritable though, and more conversant. She states that she still wants to go home. SKIN: No diaphoresis. HEENT: The patient complaining of hard of hearing. No headache, no dizziness. NECK: Supple. RESPIRATORY: Has chronic dyspnea. CARDIOVASCULAR: No chest pain. GASTROINTESTINAL: Appetite is variable. EXTREMITIES: Gait is unsteady. MUSCULOSKELETAL: Feels weak. NEUROLOGIC: Alert with periods of confusion. GENITOURINARY: No urinary problems or dysuria. MENTAL STATUS EXAMINATION: Elderly female, who looks stated age, oriented to place and person. Mood is less irritable. Affect is restricted. Speech is spontaneous. Thought process, confused at times. Thought content, the patient is still expressing the desire to go home but less persistent. The patient knows that she cannot walk and that she needs 24-hour care. No paranoia. No hallucinations. Attention and memory seem to be limited. Insight and judgment limited. Impulse control is fair at this time. The patient seems to be compliant with meds, she is taking Xanax 0.25 p.o. q.8 hours. IMPRESSION: Delirium, metabolic encephalopathy as well as dementia with mood changes, history of chronic obstructive pulmonary disease, history of congestive heart failure, history of stroke, history of hypertension, and urinary tract infection. PLAN AND RECOMMENDATIONS: The patient is seen, medications reviewed. Continue Xanax as ordered. The patient is still unable to go home by herself and needs 24-hour care. The patient is unsafe to be discharged. Continue treatment plan as outlined. Demetrius Burdick MD
[2017-12-18] MEDS: (Novolin R) Insulin Human Regular 100 units/ml vial SC SCH ×4 (07:47→22:25)
--- NOTE | 2017-12-18 08:06 | PN ---
DATE: SUBJECTIVE: She is resting in the bed. She has not gotten out of the bed, she is telling me. I will got physical therapy and out of bed to chair daily. She is getting her medications She tells she wants to go home, although she cannot go home she's getting upset with me. MEDICATIONS: She is currently on Advair, Apresoline, Drisdol, Ecotrin, Fergon, heparin, Imdur, Lasix, Nephro-Karolyn, Novolin, Pepcid, prednisone 40 mg, Protonix, Ranexa, Spiriva, Toprol, and Xanax. PHYSICAL EXAMINATION: VITAL SIGNS: She has a 97.9 temperature, 73 pulse, 148/71 blood pressure, 20 respiratory rate, and 100% O2 saturation on 2L nasal cannula. HEENT: Head is atraumatic and normocephalic GENERAL: She is alert. Looking at me. HEART: Regular rate. LUNGS: Decreased breath sounds, but clear to auscultation. ABDOMEN: Soft, nontender. Positive bowel sounds. MUSCULOSKELETAL: Feels weak. LABORATORY DATA: Sodium 137, potassium 4.1, BUN 41, creatinine 1.3, GFR is 40, blood sugar 115, calcium 8.1, total bili is 0.4, AST 14, ALT 41, alkaline phosphatase 44, total protein is 5.2. White blood cells hemoglobin 12.5, hematocrit 34.5, and platelets are Overall, she will be seen by Psychiatric and Renal She can no longer take care of herself [facility] placement John Brown DO MTDJeaneth
[2017-12-18 08:08] LABS: HEMOGLOBIN 11.9 g/dL (11.0-16.0); MEAN CELL VOLUME 80.1 fL (81.0-99.0); MEAN CORPUSCULAR HEMOGLOBIN 26.7 pg (27.0-31.0); MEAN CORPUSCULAR HGB CONC 33.4 g/dL (33.0-37.0); MEAN PLATELET VOLUME 9.7 fL (7.2-11.7); RBC 4.44 Mil/uL (3.80-5.20); RED CELL DISTRIBUTION WIDTH 22.2 % (11.5-14.5); WHITE BLOOD COUNT 8.1 K/uL (4.8-10.8)
[2017-12-18] MEDS: Tiotropium 18 mcg Cap For Inhalation INH SCH (08:24)
[2017-12-18] MEDS: Fluticasone-Salmeterol 250-50mcg Diskus INH SCH ×2 (08:24→19:49)
[2017-12-18 08:33] LABS: ALB/GLOB RATIO 1.3 (1.0-2.1); ALBUMIN 3.1 g/dL (3.5-5.0); ALT/SGPT 37 U/L (9-52); AST/SGOT 16 U/L (14-36); BLOOD UREA NITROGEN 37 mg/dL (7-17); CALCIUM 8.9 mg/dl (8.6-10.4); GFR AFRICAN-AMERICAN > 60; GFR NON-AFRICAN AMERICAN 54
[2017-12-18] MEDS: Multivitamin Vitamin B Complex (Nephro-Vite) Tab PO SCH (08:39)
--- NOTE | 2017-12-18 10:07 | PN ---
DATE: SUBJECTIVE: I saw her comfortably in her bed. She slept fairly well. She is telling that she might want AMA because she is not getting the adequate care, she does not want to go to facility and she wants to go home now. I explained to her again that she is incapable of being home by herself anymore as she is back in the hospital in 2 hours after she went home and she did for the past many times. She is on Advair, Apresoline, Drisdol, Ecotrin, Fergon, heparin, Imdur, Januvia Lasix, Nephro-Karolyn, insulin coverage, Pepcid, Protonix, Ranexa, Spiriva, Toprol, Tylenol, Ultram, and Xanax. PHYSICAL EXAMINATION: VITAL SIGNS: She has a temperature of 98, pulse 71, blood pressure 153/62, respiratory rate 20, oxygen saturation 99% on 2 L nasal cannula. HEENT: Atraumatic, normocephalic. HEART: Regular rate. LUNGS: Decreased breath sounds, but clear. ABDOMEN: Soft. EXTREMITIES: No edema. She has to get out of bed to chair. She is on physical therapy. Have to make sure she is eating, which she is. LABORATORY DATA: She has a 137 sodium, potassium 4.1, BUN 41, creatinine 1.3, GFR is 42, sugar is 220. We added Januvia 25 daily. AST is 14, ALT is 41, alk phos 44, total protein is 5.2, white count is 6.5, hemoglobin is 11.5, hematocrit 34.5, platelets are 210. She is being seen by Psychiatry, Renal. She does get confused at times. At this time, she cannot walk. She needs 24-hour care. As per Psychiatry, cannot be able to send home alone, where she needs 24 hours of care. It is unsafe to discharge at this time as per Psychiatry. We will continue to follow with sr. social media & mobile manager and case management for placement. John Brown DO [facility]
[2017-12-18] MEDS: Ranolazine 500 mg Extended Release Tablets PO SCH ×2 (10:47→17:39)
[2017-12-18] MEDS: Pantoprazole 40 mg EC Tab PO SCH (10:50)
[2017-12-18] MEDS: Metoprolol Succinate 50 mg XL Tab PO SCH (10:50)
[2017-12-18] MEDS: Ergocalciferol 50,000 Intl Units Cap PO SCH (10:50)
--- NOTE | 2017-12-18 13:15 | CP.PCM.PN ---
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 Hypertension control with meds as ordered. 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 Increased toprol XL to 50 mg/day Monitor Input/Output, daily weights and renal function with basic metabolic panel supplement electrolytes as needed started iron supplement, MVI and weekly Vit D continue with diuretics getting inhalers for COPD. Dose meds/antibiotics for reduced GFR. Avoid fleets enema/magnesium based laxatives. Avoid nephrotoxins/NSAIDs/ iodinated contrast (unless needed emergently) Glycemic control Further work up/management as per primary team. pt stable for d/c from renal perspective when planned Thanks for allowing me to participate in care of your patient. Will follow patient with you. Please call if any Qs. Dr Shiraz Husain Office: [phone] reason for consult: ETHEL HPI: Pt is a 72 F with hx of diabetes Mellitus (years), hypertension (many years ), CAD s/p stent, PVD s/p iliac stent, Rt renal artery stenosis 60%, Ca breast s /p chemo presented with complaints of chest pain and SOB, managed for CHF and NSTEMI in past, reported heavy use of NSAIDs as naproxen, up to 10 tab/day for months probably has baseline CKD with cr 1.0-1.2 with intermittent AKIs ROS: She is irritable. wants to go home. Feels short of breath on exertion. Denies any urinary complaint. No nausea vomiting. No pain abdomen Physical Examination: General Appearance: Comfortable, in no acute respiratory distress Vitals reviewed and noted as below Head; Atraumatic, normocephalic ENT: no ulcers no thrush. Tongue is midline. Oropharynx: no rash or ulcers. EYES: Pupils are equal, round and reactive to light accommodation. Eye muscles and extra-ocular movement intact. Sclera is anicteric. Neck; supple no lymphadenopathy, no thyromegaly or bruit Lungs: Normal respiratory rate/effort. Breath sounds bilateral decreased at bases no wheeze Heart: Normal rate. s1s2 normal. No rub or gallop. Extremities: no edema. No varicose veins Neurological: Patient is Awake alert follow commands. Moving all 4 extremities. No focal deficit Skin: Warm and dry. Normal turgor. No rash. Palpitation: Normal elasticity for age Abdomen: Abdomen is soft. Bowel sounds +. There is no abdominal tenderness, no guarding/rigidity no organomegaly Psych: Limited insight. Patient is often very irritable. MSK: no joint tenderness or swelling. Digits and nails normal, no deformity : kidney or bladder not palpable Labs/imaging reviewed. Past medical history, past surgical history, family history, social history, allergy reviewed and noted as below Family hx: no hx of CKD. Rest non-contributory sono jun 2017: simple cyst. previous CT showed stable complex cyst left kidney echo; moderate to severe TR SPEP/AMY neg, serum FLC assay WNL. Vit D <12.8 PTH 168 TSAT 4% Ferritin 19 Hep B and C neg Objective - Vital Signs/Intake and Output Vital Signs (last 24 hours): Temp Pulse Resp BP Pulse Ox 98.3 F 77 20 173/75 H 100 12/18/17 07:00 12/18/17 08:22 12/18/17 07:00 12/18/17 10:50 12/18/17 07:00 Intake and Output: 12/18/17 12/18/17 06:59 18:59 Intake Total 620 Balance 620 - Medications Medications: Current Medications Acetaminophen (Tylenol 325mg Tab) 650 mg PO Q6 PRN PRN Reason: Pain, Mild (1-3) Last Admin: 12/18/17 08:44 Dose: 650 mg Aspirin (Ecotrin) 81 mg PO DAILY [facility] Last Admin: 12/18/17 10:50 Dose: 81 mg Ergocalciferol (Drisdol 50,000 Intl Units Cap) 1 cap PO Q7D [facility] Last Admin: 12/18/17 10:50 Dose: 1 cap Famotidine (Pepcid) 20 mg PO DAILY [facility] Last Admin: 12/18/17 10:50 Dose: 20 mg Ferrous Gluconate (Fergon) 324 mg PO TID [facility] Last Admin: 12/18/17 10:50 Dose: 324 mg Furosemide (Lasix) 20 mg IVP DAILY [facility] Last Admin: 12/18/17 10:50 Dose: 20 mg Heparin Sodium (Porcine) (Heparin) 5,000 units SC Q12 [facility] Last Admin: 12/18/17 10:50 Dose: 5,000 units Hydralazine HCl (Apresoline) 75 mg PO TID [facility] Last Admin: 12/18/17 10:50 Dose: 75 mg Insulin Human Regular (Novolin R) 0 unit SC ACHS [facility] PRN Reason: Protocol Last Admin: 12/18/17 12:30 Dose: 2 unit Isosorbide Mononitrate (Imdur) 60 mg PO DAILY [facility] Last Admin: 12/18/17 10:50 Dose: 60 mg Metoprolol Succinate (Toprol Xl) 50 mg PO DAILY [facility] Last Admin: 12/18/17 10:50 Dose: 50 mg Pantoprazole Sodium (Protonix Ec Tab) 40 mg PO DAILY [facility] Last Admin: 12/18/17 10:50 Dose: 40 mg Ranolazine (Ranexa) 500 mg PO BID [facility] Last Admin: 12/18/17 10:47 Dose: 500 mg Fluticasone/Salmeterol (Advair Diskus 250/50) 1 puff INH RQ12 [facility] Last Admin: 12/18/17 08:24 Dose: Not Given Sitagliptin Phosphate (Januvia) 25 mg PO DAILY [facility] Last Admin: 12/18/17 10:50 Dose: 25 mg Tiotropium Lawrence (Spiriva) 18 mcg INH RQ24 [facility] Last Admin: 12/18/17 08:24 Dose: Not Given Tramadol HCl (Ultram) 50 mg PO Q8 PRN PRN Reason: Pain Last Admin: 12/18/17 12:48 Dose: 50 mg Vitamin B Complex/Vit C/Folic Acid (Nephro-Karolyn) 1 tab PO 0800 [facility] Last Admin: 12/18/17 08:39 Dose: 1 tab - Labs Labs: 12/18/17 07:47 12/18/17 04:00 PT 17.3 SECONDS (9.7-12.2) H 12/09/17 00:22 INR 1.5 12/09/17 00:22 APTT 34 SECONDS (21-34) 12/09/17 00:22
--- NOTE | 2017-12-18 16:29 | PN ---
DATE: SUBJECTIVE: The patient is seen. The patient is less anxious and expressing desire to go for subacute rehab to [facility], however, the patient has no more subacute days. The case discussed with the bottle caser and manager social work. The patient has no Medicaid. She has family members, but they are not willing to help her financially and also will not care. The patient, however, has a friend, named Guido who is willing to help her arrange for the patient to get Medicaid, so the patient can get some services at home, if she was able to be discharged to home. The patient is unsafe to be discharged to home. She cannot take care of herself. However, the patient still has decisional capacity to designate a proxy for her financial and medical care, so the patient can at least apply for Medicaid and get some home care services at home. As described, the patient is having unsteady gait. She still has periods of confusion and the patient also has complex medical problems. The patient also is in need of 24-hour care at this time. PHYSICAL EXAMINATION VITAL SIGNS: Temperature is 98.3, pulse 77, blood pressure 173/75, respirations 20, oxygen saturation is 100%. REVIEW OF SYSTEMS: GENERAL: The patient is alert, verbal, still with periods of confusion, seen in her room, still irritable, but much calmer than last few days. She has been compliant. The patient still wants to go home. SKIN: No diaphoresis. HEENT: The patient is hard of hearing. No headache. NECK: Supple. RESPIRATORY: She has chronic dyspnea. CARDIOVASCULAR: No chest pain. GASTROINTESTINAL: Appetite is variable. EXTREMITIES: Gait is unsteady. MUSCULOSKELETAL: Feels weak. NEUROLOGIC: Alert with periods of confusion. GENITOURINARY: No urinary problems. MENTAL STATUS EXAMINATION: Elderly female, who looks stated age, oriented to place and person at this time. Mood is less irritable. Affect is restricted. Speech is spontaneous. Thought process, confused off and on. Thought content, the patient still wants to go home, but the patient is able to agree to have proxy for medical and financial care to help her manage her affairs. She cannot take care of herself alone at this time, but can designate a proxy to help her manage her affairs. No psychosis. No suicidal or homicidal ideation. Attention and memory seem to be limited. Insight and judgment limited. Impulse control is fair at this time. IMPRESSION: Delirium, metabolic encephalopathy, secondary to exacerbation of chronic obstructive pulmonary disease, with history of dementia with mood changes. PLAN AND RECOMMENDATIONS: The patient is seen, medications reviewed. Continue Xanax as ordered. Continue present management. For now, the patient needs to stay in the hospital and she can be discharged to home where the patient can designate her friend Guido to be her proxy for medical and financial affairs to assist her with application for Medicaid. At this time, the patient has no more subacute days. Demetrius Burdick MD MTDD
[2017-12-19] MEDS: (Novolin R) Insulin Human Regular 100 units/ml vial SC SCH ×4 (07:19→21:40)
[2017-12-19] MEDS: Multivitamin Vitamin B Complex (Nephro-Vite) Tab PO SCH (07:48)
[2017-12-19] MEDS: Tiotropium 18 mcg Cap For Inhalation INH SCH (08:06)
[2017-12-19] MEDS: Fluticasone-Salmeterol 250-50mcg Diskus INH SCH ×2 (08:07→19:36)
[2017-12-19 08:27] LABS: MEAN CELL VOLUME 80.4 fL (81.0-99.0); MEAN CORPUSCULAR HEMOGLOBIN 26.6 pg (27.0-31.0); MEAN CORPUSCULAR HGB CONC 33.1 g/dL (33.0-37.0); MEAN PLATELET VOLUME 10.2 fL (7.2-11.7); RBC 4.51 Mil/uL (3.80-5.20); RED CELL DISTRIBUTION WIDTH 22.1 % (11.5-14.5); WHITE BLOOD COUNT 9.5 K/uL (4.8-10.8)
[2017-12-19 08:34] LABS: ALB/GLOB RATIO 1.2 (1.0-2.1); ALBUMIN 3.1 g/dL (3.5-5.0); CALCIUM 8.7 mg/dl (8.6-10.4)
[2017-12-19] MEDS: Ranolazine 500 mg Extended Release Tablets PO SCH ×2 (09:25→17:40)
[2017-12-19] MEDS: Metoprolol Succinate 50 mg XL Tab PO SCH (09:25)
[2017-12-19] MEDS: Pantoprazole 40 mg EC Tab PO SCH (09:25)
--- NOTE | 2017-12-19 11:22 | CP.PCM.PN ---
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 Hypertension control with meds as ordered. 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 Increased toprol XL to 50 mg/day. increased hydralazine 100 tid Monitor Input/Output, daily weights and renal function with basic metabolic panel supplement electrolytes as needed started iron supplement, MVI and weekly Vit D continue with diuretics getting inhalers for COPD. Dose meds/antibiotics for reduced GFR. Avoid fleets enema/magnesium based laxatives. Avoid nephrotoxins/NSAIDs/ iodinated contrast (unless needed emergently) Glycemic control Further work up/management as per primary team. pt stable for d/c from renal perspective when planned Thanks for allowing me to participate in care of your patient. Will follow patient with you. Please call if any Qs. Dr Shiraz Husain Office: [phone] reason for consult: ETHEL HPI: Pt is a 72 F with hx of diabetes Mellitus (years), hypertension (many years ), CAD s/p stent, PVD s/p iliac stent, Rt renal artery stenosis 60%, Ca breast s /p chemo presented with complaints of chest pain and SOB, managed for CHF and NSTEMI in past, reported heavy use of NSAIDs as naproxen, up to 10 tab/day for months probably has baseline CKD with cr 1.0-1.2 with intermittent AKIs ROS: She is irritable. wants to go home. Feels short of breath on exertion. Denies any urinary complaint. No nausea vomiting. No pain abdomen Physical Examination: General Appearance: Comfortable, in no acute respiratory distress Vitals reviewed and noted as below Head; Atraumatic, normocephalic ENT: no ulcers no thrush. Tongue is midline. Oropharynx: no rash or ulcers. EYES: Pupils are equal, round and reactive to light accommodation. Eye muscles and extra-ocular movement intact. Sclera is anicteric. Neck; supple no lymphadenopathy, no thyromegaly or bruit Lungs: Normal respiratory rate/effort. Breath sounds bilateral decreased at bases no wheeze Heart: Normal rate. s1s2 normal. No rub or gallop. Extremities: no edema. No varicose veins Neurological: Patient is Awake alert follow commands. Moving all 4 extremities. No focal deficit Skin: Warm and dry. Normal turgor. No rash. Palpitation: Normal elasticity for age Abdomen: Abdomen is soft. Bowel sounds +. There is no abdominal tenderness, no guarding/rigidity no organomegaly Psych: Limited insight. Patient is often very irritable. MSK: no joint tenderness or swelling. Digits and nails normal, no deformity : kidney or bladder not palpable Labs/imaging reviewed. Past medical history, past surgical history, family history, social history, allergy reviewed and noted as below Family hx: no hx of CKD. Rest non-contributory sono jun 2017: simple cyst. previous CT showed stable complex cyst left kidney echo; moderate to severe TR SPEP/AMY neg, serum FLC assay WNL. Vit D <12.8 PTH 168 TSAT 4% Ferritin 19 Hep B and C neg Objective - Vital Signs/Intake and Output Vital Signs (last 24 hours): Temp Pulse Resp BP Pulse Ox 97.6 F 71 20 167/75 H 100 12/19/17 07:30 12/19/17 09:14 12/19/17 07:30 12/19/17 09:24 12/19/17 07:30 Intake and Output: 12/19/17 12/19/17 06:59 18:59 Intake Total 360 Output Total 2 Balance 358 - Medications Medications: Current Medications Acetaminophen (Tylenol 325mg Tab) 650 mg PO Q6 PRN PRN Reason: Pain, Mild (1-3) Last Admin: 12/19/17 01:44 Dose: 650 mg Alprazolam (Xanax) 0.25 mg PO TID PRN PRN Reason: Anxiety Stop: 12/25/17 19:21 Last Admin: 12/18/17 19:31 Dose: 0.25 mg Aspirin (Ecotrin) 81 mg PO DAILY [facility] Last Admin: 12/19/17 09:24 Dose: 81 mg Ergocalciferol (Drisdol 50,000 Intl Units Cap) 1 cap PO Q7D [facility] Last Admin: 12/18/17 10:50 Dose: 1 cap Famotidine (Pepcid) 20 mg PO DAILY [facility] Last Admin: 12/19/17 09:25 Dose: 20 mg Ferrous Gluconate (Fergon) 324 mg PO TID [facility] Last Admin: 12/19/17 09:24 Dose: 324 mg Furosemide (Lasix) 20 mg IVP DAILY [facility] Last Admin: 12/19/17 09:24 Dose: 20 mg Hydralazine HCl (Apresoline) 100 mg PO TID [facility] Insulin Human Regular (Novolin R) 0 unit SC ACHS [facility] PRN Reason: Protocol Last Admin: 12/19/17 07:19 Dose: Not Given Isosorbide Mononitrate (Imdur) 60 mg PO DAILY [facility] Last Admin: 12/19/17 09:24 Dose: 60 mg Metoprolol Succinate (Toprol Xl) 50 mg PO DAILY [facility] Last Admin: 12/19/17 09:25 Dose: 50 mg Pantoprazole Sodium (Protonix Ec Tab) 40 mg PO DAILY [facility] Last Admin: 12/19/17 09:25 Dose: 40 mg Ranolazine (Ranexa) 500 mg PO BID [facility] Last Admin: 12/19/17 09:25 Dose: 500 mg Fluticasone/Salmeterol (Advair Diskus 250/50) 1 puff INH RQ12 [facility] Last Admin: 12/19/17 08:07 Dose: 1 puff Sitagliptin Phosphate (Januvia) 25 mg PO DAILY [facility] Last Admin: 12/19/17 09:24 Dose: 25 mg Tiotropium [place] (Spiriva) 18 mcg INH RQ24 [facility] Last Admin: 12/19/17 08:06 Dose: 18 mcg Tramadol HCl (Ultram) 50 mg PO Q8 PRN PRN Reason: Pain Last Admin: 12/19/17 02:52 Dose: 50 mg Vitamin B Complex/Vit C/Folic Acid (Nephro-Karolyn) 1 tab PO Q24H [facility] Last Admin: 12/19/17 07:48 Dose: 1 tab - Labs Labs: 12/19/17 08:06 12/19/17 08:06 PT 17.3 SECONDS (9.7-12.2) H 12/09/17 00:22 INR 1.5 12/09/17 00:22 APTT 34 SECONDS (21-34) 12/09/17 00:22
--- NOTE | 2017-12-19 12:24 | PN ---
DATE: SUBJECTIVE: I saw her this morning sleeping in her bed, easily arousable. At present, she states she is in excruciating pain, although she started to go back to sleep again. I will give another Ultram. She is on Advair, Apresoline, Drisdol, Ecotrin, Fergon, Imdur, Januvia, Lasix, Nephro-Karolyn, Novolin, Pepcid, Protonix, Ranexa, Spiriva, Toprol, Tylenol, Ultram, and Xanax. PHYSICAL EXAMINATION: VITAL SIGNS: Temperature 97.3, pulse 76, blood pressure 160/55, respiratory rate 20, O2 sat 100% on nasal cannula. GENERAL: She tells me she walked a little bit yesterday with physical therapy which is good, trying to get out of the bed to the chair every day. HEENT: Head atraumatic, normocephalic. Throat is moist. NECK: Supple. HEART: Regular rate. LUNGS: Decreased breath sounds but clear. ABDOMEN: Soft. EXTREMITIES: No edema. LABORATORY DATA: She has 8.1 white count, 11.9 hemoglobin, 35.6 hematocrit, 238 platelets. She had 137 sodium, potassium is 4, BUN 37, creatinine 1, GFR 64, last blood sugar was 95, calcium 8.9, total bili is 0.5, AST 16, ALT 37, alk phos 40, total protein is 5.4. ASSESSMENT AND PLAN: She is being seen by Renal and Psychiatry. She got some Xanax. She was agitated. She had a dose of Ativan. Waiting for placement for Psychiatry and told that she needs 24-hour care. We will have case management and manager social do their discharge planning. I will continue with aggressive treatment care on Kathy Painter and keep her as comfortable and as pain-free as possible. John Brown DO
--- NOTE | 2017-12-19 13:33 | PN ---
DATE: 12/19/2017. SUBJECTIVE: The patient is seen with her friend Guido who is willing to help the patient apply for Medicaid. The patient still wants to go home but the patient cannot go home because she cannot take care of herself alone however, she still has the decisional capacity to designate power of attorney law clerk for medical and financial affairs. She has been compliant with her meds. The patient is on Xanax 0.25 mg p.o. t.i.d. p.r.n. for now. VITAL SIGNS: Temperature is 97.6, pulse of 71, blood pressure 167/75, respirations 20, oxygen saturation is 100% on room air. REVIEW OF SYSTEMS: GENERAL: The patient is alert, less irritable, seen with her friend today. The patient still wants to go home. SKIN: No diaphoresis. HEENT: The patient is hard of hearing. No headache. No dizziness. NECK: Supple. RESPIRATORY: Has chronic dyspnea. CARDIOVASCULAR: No chest pain. GASTROINTESTINAL: Appetite is variable. EXTREMITIES: Gait is unsteady. MUSCULOSKELETAL: Feels weak. NEUROLOGIC: Alert with periods of confusion. GENITOURINARY: No dysuria. MENTAL STATUS EXAMINATION: Elderly female, who looks stated age, oriented to place and person as well as to time. Mood is less irritable. Affect is reactive. Speech is spontaneous. Thought process, forgetful. Thought content, still wants to go home but has agreed to stay in the hospital, the patient oxygen at home and also the patient cannot walk. No overt psychosis. No suicidal or homicidal ideation. Attention and memory seem to be limited. Insight and judgment limited. Impulse control is guarded at this time. IMPRESSION: Delirium, metabolic encephalopathy as well as dementia with mood changes as well as history of chronic obstructive pulmonary disease, congestive heart failure and urinary tract infection. PLAN AND RECOMMENDATIONS: The patient is seen, meds reviewed. We will continue Xanax p.r.n. for now and then continue tramadol for pain. The patient is still unsafe for discharge to home. The patient cannot take care of herself alone but the patient still has decisional capacity to designate her friend Guido to be her power of attorney law clerk for medical and financial affairs. Demetrius Burdick MD [facility] # [id number] [facility]
[2017-12-20 07:24] LABS: HEMOGLOBIN 11.2 g/dL (11.0-16.0); MEAN CELL VOLUME 80.5 fL (81.0-99.0); MEAN CORPUSCULAR HEMOGLOBIN 26.6 pg (27.0-31.0); MEAN PLATELET VOLUME 9.7 fL (7.2-11.7); RBC 4.21 Mil/uL (3.80-5.20); RED CELL DISTRIBUTION WIDTH 22.2 % (11.5-14.5); WHITE BLOOD COUNT 8.6 K/uL (4.8-10.8)
[2017-12-20] MEDS: (Novolin R) Insulin Human Regular 100 units/ml vial SC SCH ×4 (07:56→21:51)
[2017-12-20 07:58] LABS: ALB/GLOB RATIO 1.3 (1.0-2.1); ALBUMIN 3.1 g/dL (3.5-5.0); CALCIUM 8.7 mg/dl (8.6-10.4)
[2017-12-20] MEDS: Multivitamin Vitamin B Complex (Nephro-Vite) Tab PO SCH (08:01)
[2017-12-20] MEDS: Fluticasone-Salmeterol 250-50mcg Diskus INH SCH ×2 (08:24→19:45)
[2017-12-20] MEDS: Tiotropium 18 mcg Cap For Inhalation INH SCH (08:25)
[2017-12-20] MEDS: Pantoprazole 40 mg EC Tab PO SCH (10:29)
[2017-12-20] MEDS: Ranolazine 500 mg Extended Release Tablets PO SCH ×2 (10:30→17:27)
[2017-12-20] MEDS: Metoprolol Succinate 50 mg XL Tab PO SCH (10:30)
--- NOTE | 2017-12-20 10:31 | PN ---
DATE: SUBJECTIVE: I saw Kathy resting comfortably in bed. She complained that she cannot sleep well and wants sleeping pill. Also upset with her pain medication. I will add Tylenol to every time she gets tramadol to make which has helped her in the past. She is eating some, she is getting out of bed some, walked a few steps. PHYSICAL EXAMINATION: VITAL SIGNS: She has 99 temperature, 70 pulse, 147/66 blood pressure, 20 respiratory rate, and 98% O2 sat on nasal cannula. HEENT: Head is atraumatic, normocephalic. GENERAL: She is alert, talking, upset as usual. HEART: Regular rate. LUNGS: Decreased breath sounds but clear. ABDOMEN: Soft. EXTREMITIES: No edema. . MEDICATIONS: She is on Advair, Ambien at nighttime to sleep, Apresoline, Drisdol, Ecotrin, Fergon, Imdur, Januvia, Lasix, Nephro-Karolyn, Novolin, amlodipine, Protonix, Ranexa, Spiriva, Toprol, Tylenol, and Xanax. LABORATORY DATA: She has 9.5 white count, 12 hemoglobin, 36.2 hematocrit, 248 platelets. She has sodium 136, potassium 4.5, BUN 35, creatinine 1.1, GFR is 49, last blood sugar is 92, calcium is 8.7, total bili is 0.4, AST is 46, ALT is 47, alk phos 39, and total protein is 5.6. ASSESSMENT AND PLAN: She has severe coronary artery disease. She had a stent placed. She was supposed to go for a open heart surgery at [facility] but she refused . She is being seen by Renal and Psychiatry. She had seen Dr. Kinney in the beginning of her stay. We will try social and political studies professor to help. The plan right now is to go home once she gets Medicaid with home services. I do think that is a mistake, I think she needs a permanent correction placement and she will be back to the hospital very quickly if she goes home; social and political studies professor and what they can do to help her, she is a very difficult patient and understands that she was John Brown DO MTDJeaneth
--- NOTE | 2017-12-20 13:31 | CP.PCM.PN ---
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 Hypertension control with meds as ordered. 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 Increased toprol XL to 50 mg/day. increased hydralazine 100 tid Monitor Input/Output, daily weights and renal function with basic metabolic panel supplement electrolytes as needed started iron supplement, MVI and weekly Vit D continue with diuretics getting inhalers for COPD. Dose meds/antibiotics for reduced GFR. Avoid fleets enema/magnesium based laxatives. Avoid nephrotoxins/NSAIDs/ iodinated contrast (unless needed emergently) Glycemic control Further work up/management as per primary team. pt stable for d/c from renal perspective when planned Thanks for allowing me to participate in care of your patient. Will follow patient with you. Please call if any Qs. Dr Shiraz Husain Office: [phone] reason for consult: ETHEL HPI: Pt is a 72 F with hx of diabetes Mellitus (years), hypertension (many years ), CAD s/p stent, PVD s/p iliac stent, Rt renal artery stenosis 60%, Ca breast s /p chemo presented with complaints of chest pain and SOB, managed for CHF and NSTEMI in past, reported heavy use of NSAIDs as naproxen, up to 10 tab/day for months probably has baseline CKD with cr 1.0-1.2 with intermittent AKIs ROS: She is irritable. wants to go home.denies short of breath. Denies any urinary complaint. No nausea vomiting. No pain abdomen Physical Examination: General Appearance: Comfortable, in no acute respiratory distress Vitals reviewed and noted as below Head; Atraumatic, normocephalic ENT: no ulcers no thrush. Tongue is midline. Oropharynx: no rash or ulcers. EYES: Pupils are equal, round and reactive to light accommodation. Eye muscles and extra-ocular movement intact. Sclera is anicteric. Neck; supple no lymphadenopathy, no thyromegaly or bruit Lungs: Normal respiratory rate/effort. Breath sounds bilateral decreased at bases no wheeze Heart: Normal rate. s1s2 normal. No rub or gallop. Extremities: no edema. No varicose veins Neurological: Patient is Awake alert follow commands. Moving all 4 extremities. No focal deficit Skin: Warm and dry. Normal turgor. No rash. Palpitation: Normal elasticity for age Abdomen: Abdomen is soft. Bowel sounds +. There is no abdominal tenderness, no guarding/rigidity no organomegaly Psych: Limited insight. Patient is often very irritable. MSK: no joint tenderness or swelling. Digits and nails normal, no deformity : kidney or bladder not palpable Labs/imaging reviewed. Past medical history, past surgical history, family history, social history, allergy reviewed and noted as below Family hx: no hx of CKD. Rest non-contributory sono jun 2017: simple cyst. previous CT showed stable complex cyst left kidney echo; moderate to severe TR SPEP/AMY neg, serum FLC assay WNL. Vit D <12.8 PTH 168 TSAT 4% Ferritin 19 Hep B and C neg Objective - Vital Signs/Intake and Output Vital Signs (last 24 hours): Temp Pulse Resp BP Pulse Ox 98.6 F 68 20 168/78 H 99 12/20/17 07:00 12/20/17 07:00 12/20/17 07:00 12/20/17 10:29 12/20/17 07:00 Intake and Output: 12/20/17 12/20/17 06:59 18:59 Intake Total 620 Balance 620 - Medications Medications: Current Medications Acetaminophen (Tylenol 325mg Tab) 650 mg PO Q6 PRN PRN Reason: Pain, Mild (1-3) Last Admin: 12/20/17 12:45 Dose: 650 mg Alprazolam (Xanax) 0.25 mg PO TID PRN PRN Reason: Anxiety Stop: 12/25/17 19:21 Last Admin: 03/21/18 00:30 Dose: 0.25 mg Aspirin (Ecotrin) 81 mg PO DAILY [facility] Last Admin: 12/20/17 10:27 Dose: 81 mg Ergocalciferol (Drisdol 50,000 Intl Units Cap) 1 cap PO Q7D [facility] Last Admin: 12/18/17 10:50 Dose: 1 cap Famotidine (Pepcid) 20 mg PO DAILY [facility] Last Admin: 12/20/17 10:30 Dose: 20 mg Ferrous Gluconate (Fergon) 324 mg PO TID [facility] Last Admin: 12/20/17 10:29 Dose: 324 mg Furosemide (Lasix) 20 mg IVP DAILY [facility] Last Admin: 12/20/17 10:29 Dose: 20 mg Hydralazine HCl (Apresoline) 100 mg PO TID [facility] Last Admin: 12/20/17 10:28 Dose: 100 mg Insulin Human Regular (Novolin R) 0 unit SC ACHS [facility] PRN Reason: Protocol Last Admin: 12/20/17 11:15 Dose: Not Given Isosorbide Mononitrate (Imdur) 60 mg PO DAILY [facility] Last Admin: 12/20/17 10:27 Dose: 60 mg Metoprolol Succinate (Toprol Xl) 50 mg PO DAILY [facility] Last Admin: 12/20/17 10:30 Dose: 50 mg Pantoprazole Sodium (Protonix Ec Tab) 40 mg PO DAILY [facility] Last Admin: 12/20/17 10:29 Dose: 40 mg Ranolazine (Ranexa) 500 mg PO BID [facility] Last Admin: 12/20/17 10:30 Dose: 500 mg Fluticasone/Salmeterol (Advair Diskus 250/50) 1 puff INH RQ12 [facility] Last Admin: 12/20/17 08:24 Dose: Not Given Sitagliptin Phosphate (Januvia) 25 mg PO DAILY [facility] Last Admin: 12/20/17 10:32 Dose: 25 mg Tiotropium [place] (Spiriva) 18 mcg INH RQ24 [facility] Last Admin: 12/20/17 08:25 Dose: Not Given Tramadol HCl (Ultram) 50 mg PO Q8 PRN PRN Reason: Pain Last Admin: 12/20/17 12:46 Dose: 50 mg Vitamin B Complex/Vit C/Folic Acid (Nephro-Karolyn) 1 tab PO Q24H [facility] Last Admin: 12/20/17 08:01 Dose: 1 tab Zolpidem Tartrate (Ambien) 5 mg PO HS PRN PRN Reason: Insomnia - Labs Labs: 12/20/17 07:14 12/20/17 07:14 PT 17.3 SECONDS (9.7-12.2) H 12/09/17 00:22 INR 1.5 12/09/17 00:22 APTT 34 SECONDS (21-34) 12/09/17 00:22
--- NOTE | 2017-12-20 20:46 | PN ---
DATE: SUBJECTIVE: The patient is seen. The patient is very irritable today. She does not want to be bothered. She states that she still wants to go home. She still has periods of confusion. The patient is very weak and has unsteady gait. The patient cannot take care of herself alone at this time and needs 24-hour care, but has designated her friend Guido to help her with the paper work for applying for Medicaid. For now, she has been compliant with meds. The patient has been taking tramadol for pain and also taking Xanax p.r.n., but her appetite is still poor. The patient advised to eat as the tramadol is an aggressive irritant if taken especially with no adequate food intake. VITAL SIGNS: Temperature 98.6, pulse 68, blood pressure 168/78, respirations 20, oxygen saturation 99%. REVIEW OF SYSTEMS: GENERAL: The patient seen in her room, resting, still very irritable and very abusive. She states she does not want to be bothered. She states she still wants to go home. SKIN: No diaphoresis. HEENT: The patient is still hard of hearing. No headache. No dizziness. NECK: Supple. RESPIRATORY: Has chronic dyspnea. No coughing, no wheezing. CARDIOVASCULAR: No chest pain. GASTROINTESTINAL: Appetite is variable. EXTREMITIES: The patient is moving her extremities. Gait is unsteady. MUSCULOSKELETAL: Feels week. NEUROLOGIC: Alert but with intermittent periods of confusion. GENITOURINARY: No dysuria. MENTAL STATUS EXAMINATION: Elderly female, who looks stated age, oriented to place, person, and time. Mood is irritable, dysphoric. Affect is restricted. Speech is spontaneous. Thought process, confused off and on. Thought content, still wants to go home. No overt psychosis. No suicidal or homicidal ideation. Attention and memory seem to be limited. Insight and judgment limited. Impulse control is guarded at this time. IMPRESSION: History of delirium, metabolic encephalopathy secondary to chronic obstructive pulmonary disease, as well as history of dementia with mood changes, history of debility, history of chronic obstructive pulmonary disease, congestive heart failure, history of nicotine dependence, gastritis, history of transient ischemic attack, hearing loss. PLAN AND RECOMMENDATION: The patient is seen, medications reviewed. Continue tramadol as well as Xanax p.r.n. The patient is still not safe to be discharged at this time. The patient is applying for Medicaid. Continue treatment plan as outlined. Demetrius Burdick MD [facility]
[2017-12-21] MEDS: (Novolin R) Insulin Human Regular 100 units/ml vial SC SCH ×4 (07:37→22:24)
[2017-12-21] MEDS: Multivitamin Vitamin B Complex (Nephro-Vite) Tab PO SCH (07:56)
[2017-12-21] MEDS: Fluticasone-Salmeterol 250-50mcg Diskus INH SCH ×2 (08:01→20:03)
[2017-12-21] MEDS: Tiotropium 18 mcg Cap For Inhalation INH SCH (08:01)
--- NOTE | 2017-12-21 09:20 | PN ---
DATE: SUBJECTIVE: She is very upset this morning. She tried to ask for the sleeping pill, that was at 4 a.m. I told her that she has to ask for sleeping pill between 10 and 11 p.m. at night. She understands that now. She is also due for her pain medications in ten minutes. She wants it earlier. I appreciate Dr. Burdick, the psychiatrist saying that she could not be left alone. I agree with that statement whole heartedly. She is trying to eat. We have given her physical therapy, trying to get her out of bed to chair. She also told me she is having right-sided abdominal pain, we will get an ultrasound of the abdomen and pelvis was going on. PHYSICAL EXAMINATION: VITAL SIGNS: She has a 98.6 temp, 60 pulse, 118/40 blood pressure, 20 respiratory rate, and 98% O2 sat on 2 L nasal cannula. HEENT: Her head is atraumatic, normocephalic. Throat is moist. NECK: Supple. HEART: Regular rate. LUNGS: Decreased breath sounds. ABDOMEN: Soft, positive bowel sounds. No guarding. No rebound or CVA tenderness. I do not know if she is talking about the right side but we will check. EXTREMITIES: No edema. MEDICATIONS: She is on Advair, Ambien, Apresoline, Drisdol, Ecotrin, Fergon, heparin, Imdur, Januvia, Lasix, Nephro-Karolyn, Novolin, Pepcid, Protonix, Ranexa, Spiriva, Toprol, Tylenol, Ultram and Xanax. LABORATORY DATA: She has 138 sodium, potassium is 4, BUN 29, creatinine 1.2, GFR is 44, sugar is 88, calcium is 8.7, total bili is 0.5, AST is 14, ALT is 26, alk phos is 44, total protein is 5.5. White count 8.6, hemoglobin 11.2, hematocrit 32.9, platelets 225. I also ordered amylase and lipase with the CBC and SMA-7 when she will be fine, plus an ultrasound of the abdomen and pelvis. I will see how director of social work and insurance company is going to arrange for an appropriate safe discharge. John Brown DO [facility]
[2017-12-21] MEDS: Ranolazine 500 mg Extended Release Tablets PO SCH ×2 (09:35→22:41)
[2017-12-21] MEDS: Pantoprazole 40 mg EC Tab PO SCH (09:36)
[2017-12-21] MEDS: Metoprolol Succinate 50 mg XL Tab PO SCH (09:36)
--- NOTE | 2017-12-21 14:00 | PN ---
DATE: 12/21/2017. SUBJECTIVE: The patient is seen. She is more reasonable and less irritable today. The patient has Ambien prn. The patient has trouble sleeping. She is also taking Xanax p.r.n. The patient made aware that her friend Guido whom she designated POA for medical and financial care is getting her paper work applied for Medicaid. The patient seems to be contented that is waiting for the completion of her Medicaid before she can get home care services at home, but for now, the patient is unsafe to be discharged to home. VITAL SIGNS: Temperature is 97.7, pulse 72, blood pressure 118/40, respiration 20 and oxygen saturation is 97%. MEDICATIONS: The patient took Xanax yesterday for anxiety. The patient is also on Tramadol for pain. She has chronic back pain. REVIEW OF SYSTEMS: GENERAL: The patient is seen with staff, less irritable and [place] today, more cooperative. SKIN: No diaphoresis. HEENT: Hard of hearing. No headache. NECK: Supple. RESPIRATORY: No dyspnea. CARDIOVASCULAR: No chest pain. GASTROINTESTINAL: Appetite is variable. EXTREMITIES: Gait is steady. MUSCULOSKELETAL: Feels week. NEUROLOGIC: Alert with periods of confusion. MENTAL STATUS EXAMINATION: Elderly female, looks frail, oriented x2. Mood is less irritable. Affect is reactive. Speech is spontaneous. Thought process is forgetful. Thought content, still wants to go home, but less persistent. No overt psychosis. No suicidal or homicidal ideation. Attention and memory seem to be limited. Insight and judgment limited. Impulse control is fair at this time. IMPRESSION: History of delirium, metabolic encephalopathy, history of dementia, anxiety, chronic obstructive pulmonary disease. PLAN AND RECOMMENDATIONS: The patient is seen, meds reviewed. Continue patient's psych meds. Continue treatment plan as outlined. The patient is unsafe for discharge to home at this time and needs 24 hour care. The patient however may benefit from going to subacute rehab if she has SOTERO days left. Continue present psych meds as ordered. Demetrius Burdick MD [facility]ENNET[facility]
--- NOTE | 2017-12-21 15:52 | CP.PCM.PN ---
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 Hypertension control with meds as ordered. 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 Increased toprol XL to 50 mg/day. increased hydralazine 100 tid Monitor Input/Output, daily weights and renal function with basic metabolic panel supplement electrolytes as needed started iron supplement, MVI and weekly Vit D continue with diuretics getting inhalers for COPD. Dose meds/antibiotics for reduced GFR. Avoid fleets enema/magnesium based laxatives. Avoid nephrotoxins/NSAIDs/ iodinated contrast (unless needed emergently) Glycemic control Further work up/management as per primary team. pt stable for d/c from renal perspective when planned Thanks for allowing me to participate in care of your patient. Will follow patient with you. Please call if any Qs. Dr Shiraz Husain Office: [phone] reason for consult: ETHEL HPI: Pt is a 72 F with hx of diabetes Mellitus (years), hypertension (many years ), CAD s/p stent, PVD s/p iliac stent, Rt renal artery stenosis 60%, Ca breast s /p chemo presented with complaints of chest pain and SOB, managed for CHF and NSTEMI in past, reported heavy use of NSAIDs as naproxen, up to 10 tab/day for months probably has baseline CKD with cr 1.0-1.2 with intermittent AKIs ROS: She is irritable. wants to go home.denies short of breath. Denies any urinary complaint. No nausea vomiting. No pain abdomen now. pt says pain abdomen off and on. Physical Examination: General Appearance: Comfortable, in no acute respiratory distress Vitals reviewed and noted as below Head; Atraumatic, normocephalic ENT: no ulcers no thrush. Tongue is midline. Oropharynx: no rash or ulcers. EYES: Pupils are equal, round and reactive to light accommodation. Eye muscles and extra-ocular movement intact. Sclera is anicteric. Neck; supple no lymphadenopathy, no thyromegaly or bruit Lungs: Normal respiratory rate/effort. Breath sounds bilateral decreased at bases no wheeze Heart: Normal rate. s1s2 normal. No rub or gallop. Extremities: no edema. No varicose veins Neurological: Patient is Awake alert follow commands. Moving all 4 extremities. No focal deficit Skin: Warm and dry. Normal turgor. No rash. Palpitation: Normal elasticity for age Abdomen: Abdomen is soft. Bowel sounds +. There is no abdominal tenderness, no guarding/rigidity no organomegaly Psych: Limited insight. Patient is often very irritable. MSK: no joint tenderness or swelling. Digits and nails normal, no deformity : kidney or bladder not palpable Labs/imaging reviewed. Past medical history, past surgical history, family history, social history, allergy reviewed and noted as below Family hx: no hx of CKD. Rest non-contributory sono jun 2017: simple cyst. previous CT showed stable complex cyst left kidney echo; moderate to severe TR SPEP/AMY neg, serum FLC assay WNL. Vit D <12.8 PTH 168 TSAT 4% Ferritin 19 Hep B and C neg Objective - Vital Signs/Intake and Output Vital Signs (last 24 hours): Temp Pulse Resp BP Pulse Ox 97.7 F 72 20 144/3 L 97 12/21/17 09:35 12/21/17 09:35 12/21/17 09:35 12/21/17 09:36 12/21/17 09:35 Intake and Output: 12/21/17 12/21/17 06:59 18:59 Intake Total 720 Output Total 250 Balance 470 - Medications Medications: Current Medications Acetaminophen (Tylenol 325mg Tab) 650 mg PO Q6 PRN PRN Reason: Pain, Mild (1-3) Last Admin: 12/21/17 05:42 Dose: 650 mg Alprazolam (Xanax) 0.25 mg PO TID PRN PRN Reason: Anxiety Stop: 12/25/17 19:21 Last Admin: 12/21/17 09:36 Dose: 0.25 mg Aspirin (Ecotrin) 81 mg PO DAILY [facility] Last Admin: 12/21/17 09:35 Dose: 81 mg Ergocalciferol (Drisdol 50,000 Intl Units Cap) 1 cap PO Q7D [facility] Last Admin: 12/18/17 10:50 Dose: 1 cap Famotidine (Pepcid) 20 mg PO DAILY [facility] Last Admin: 12/21/17 09:36 Dose: 20 mg Ferrous Gluconate (Fergon) 324 mg PO TID [facility] Last Admin: 12/21/17 13:08 Dose: 324 mg Furosemide (Lasix) 20 mg IVP DAILY [facility] Last Admin: 12/21/17 09:36 Dose: 20 mg Heparin Sodium (Porcine) (Heparin) 5,000 units SC Q12 [facility] Last Admin: 12/21/17 09:36 Dose: 5,000 units Hydralazine HCl (Apresoline) 100 mg PO TID [facility] Last Admin: 12/21/17 13:07 Dose: 100 mg Insulin Human Regular (Novolin R) 0 unit SC ACHS [facility] PRN Reason: Protocol Last Admin: 12/21/17 12:28 Dose: 3 unit Isosorbide Mononitrate (Imdur) 60 mg PO DAILY [facility] Last Admin: 12/21/17 09:30 Dose: 60 mg Metoprolol Succinate (Toprol Xl) 50 mg PO DAILY [facility] Last Admin: 12/21/17 09:36 Dose: 50 mg Pantoprazole Sodium (Protonix Ec Tab) 40 mg PO DAILY [facility] Last Admin: 12/21/17 09:36 Dose: 40 mg Ranolazine (Ranexa) 500 mg PO BID [facility] Last Admin: 12/21/17 09:35 Dose: 500 mg Fluticasone/Salmeterol (Advair Diskus 250/50) 1 puff INH RQ12 [facility] Last Admin: 12/21/17 08:01 Dose: Not Given Sitagliptin Phosphate (Januvia) 25 mg PO DAILY [facility] Last Admin: 12/21/17 09:36 Dose: 25 mg Tiotropium [place] (Spiriva) 18 mcg INH RQ24 [facility] Last Admin: 12/21/17 08:01 Dose: Not Given Tramadol HCl (Ultram) 50 mg PO Q8 PRN PRN Reason: Pain Last Admin: 12/21/17 05:43 Dose: 50 mg Vitamin B Complex/Vit C/Folic Acid (Nephro-Karolyn) 1 tab PO Q24H [facility] Last Admin: 12/21/17 07:56 Dose: 1 tab Zolpidem Tartrate (Ambien) 5 mg PO HS PRN PRN Reason: Insomnia - Labs Labs: 12/20/17 07:14 12/20/17 07:14 PT 17.3 SECONDS (9.7-12.2) H 12/09/17 00:22 INR 1.5 12/09/17 00:22 APTT 34 SECONDS (21-34) 12/09/17 00:22
--- NOTE | 2017-12-21 16:21 | US ---
HISTORY: pain COMPARISON: None. TECHNIQUE: Sonographic evaluation of the abdomen. FINDINGS: LIVER: Measures 15.5 cm. Diffusely increased echogenicity of the liver parenchyma. Consistent with fatty infiltration. Smooth contour. No mass. No intrahepatic biliary dilatation. GALLBLADDER: Unremarkable. No gallstones. COMMON BILE DUCT: Measures rate mm. No stones. No dilatation. PANCREAS: Unremarkable as visualized. No mass. No ductal dilatation. RIGHT KIDNEY: Measures 10.2cm. Normal cortical thickness and echogenicity. No calculus or hydronephrosis. Exophytic mid renal cortical cyst, 1.7 x 1.7 x 1.8 cm. LEFT KIDNEY: Measures 8.0cm. Normal cortical thickness and echogenicity. No calculus or hydronephrosis. Mid renal cortical cyst, 0.9 x 1.0 x 1.4 cm. Upper pole cortical cyst, 0.8 x 1.1 x 1.2 cm. SPLEEN: Normal in size and contour. No mass. AORTA: No aneurysmal dilatation. IVC: Unremarkable. OTHER FINDINGS: None. IMPRESSION: Fatty liver. No evidence of cholelithiasis or cholecystitis. Bilateral simple renal cortical cysts.
--- NOTE | 2017-12-21 16:29 | US ---
HISTORY: pain COMPARISON: None available. TECHNIQUE: Transabdominal ultrasonography of the urinary bladder was performed in various projections. FINDINGS: Urinary bladder is distended 157 cc without focal nodularity or urolithiasis appreciated related to the urinary bladder lumen. No significant mural thickening of the urinary bladder wall is appreciated. Patient preferred to terminate the examination following initial imaging of the urinary bladder. Postvoid urinary bladder imaging was constantly not performed. Uterus and both ovaries are not identified in this examination. FREE FLUID: None apparent. OTHER FINDINGS: None. IMPRESSION: Moderate urinary bladder distention is appreciate without mural thickening, urolithiasis or focal mural nodularity identified at this time. Patient preferred to terminate the exam prior to its completion. The uterus and bilateral ovaries are not identified.
[2017-12-22] MEDS: Fluticasone-Salmeterol 250-50mcg Diskus INH SCH ×2 (08:16→20:05)
[2017-12-22] MEDS: Tiotropium 18 mcg Cap For Inhalation INH SCH (08:16)
--- NOTE | 2017-12-22 08:27 | CP.PCM.PN ---
Subjective - Date & Time of Evaluation Date of Evaluation: 12/22/17 Time of Evaluation: 08:25 - Subjective Subjective: Patient and bed awake and conscious feeling good no nausea no vomiting No chest pain reported Appetite is okay Objective - Vital Signs/Intake and Output Vital Signs (last 24 hours): Temp Pulse Resp BP Pulse Ox 98.3 F 68 18 142/67 96 12/22/17 08:09 12/22/17 08:09 12/22/17 08:09 12/22/17 08:09 12/22/17 08:09 - Medications Medications: Current Medications Acetaminophen (Tylenol 325mg Tab) 650 mg PO Q6 PRN PRN Reason: Pain, Mild (1-3) Last Admin: 12/22/17 00:18 Dose: 650 mg Alprazolam (Xanax) 0.25 mg PO TID PRN PRN Reason: Anxiety Stop: 12/25/17 19:21 Last Admin: 12/22/17 03:59 Dose: 0.25 mg Aspirin (Ecotrin) 81 mg PO DAILY [facility] Last Admin: 12/21/17 09:35 Dose: 81 mg Ergocalciferol (Drisdol 50,000 Intl Units Cap) 1 cap PO Q7D [facility] Last Admin: 12/18/17 10:50 Dose: 1 cap Famotidine (Pepcid) 20 mg PO DAILY [facility] Last Admin: 12/21/17 09:36 Dose: 20 mg Ferrous Gluconate (Fergon) 324 mg PO TID [facility] Last Admin: 12/21/17 22:42 Dose: 324 mg Furosemide (Lasix) 20 mg IVP DAILY [facility] Last Admin: 12/21/17 09:36 Dose: 20 mg Heparin Sodium (Porcine) (Heparin) 5,000 units SC Q12 [facility] Last Admin: 12/21/17 22:41 Dose: 5,000 units Hydralazine HCl (Apresoline) 100 mg PO TID [facility] Last Admin: 12/21/17 22:23 Dose: Not Given Insulin Human Regular (Novolin R) 0 unit SC ACHS [facility] PRN Reason: Protocol Last Admin: 12/21/17 22:24 Dose: Not Given Isosorbide Mononitrate (Imdur) 60 mg PO DAILY [facility] Last Admin: 12/21/17 09:30 Dose: 60 mg Metoprolol Succinate (Toprol Xl) 50 mg PO DAILY [facility] Last Admin: 12/21/17 09:36 Dose: 50 mg Pantoprazole Sodium (Protonix Ec Tab) 40 mg PO DAILY [facility] Last Admin: 12/21/17 09:36 Dose: 40 mg Ranolazine (Ranexa) 500 mg PO BID [facility] Last Admin: 12/21/17 22:41 Dose: 500 mg Fluticasone/Salmeterol (Advair Diskus 250/50) 1 puff INH RQ12 [facility] Last Admin: 12/22/17 08:16 Dose: Not Given Sitagliptin Phosphate (Januvia) 25 mg PO DAILY [facility] Last Admin: 12/21/17 09:36 Dose: 25 mg Tiotropium [place] (Spiriva) 18 mcg INH RQ24 [facility] Last Admin: 12/22/17 08:16 Dose: Not Given Tramadol HCl (Ultram) 50 mg PO Q8 PRN PRN Reason: Pain Last Admin: 12/22/17 00:15 Dose: 50 mg Vitamin B Complex/Vit C/Folic Acid (Nephro-Karolyn) 1 tab PO Q24H [facility] Last Admin: 12/21/17 07:56 Dose: 1 tab Zolpidem Tartrate (Ambien) 5 mg PO HS PRN PRN Reason: Insomnia - Labs Labs: 12/20/17 07:14 12/20/17 07:14 PT 17.3 SECONDS (9.7-12.2) H 12/09/17 00:22 INR 1.5 12/09/17 00:22 APTT 34 SECONDS (21-34) 12/09/17 00:22 - Constitutional Appears: No Acute Distress - Eye Exam Eye Exam: Conjunctival injection - ENT Exam ENT Exam: Mucous Membranes Moist - Neck Exam Neck Exam: absent: Lymphadenopathy - Respiratory Exam Respiratory Exam: NORMAL BREATHING PATTERN. absent: Chest Wall Tenderness, Rales - Cardiovascular Exam Cardiovascular Exam: absent: Gallop, JVD, Rubs - GI/Abdominal Exam GI & Abdominal Exam: Normal Bowel Sounds - Extremities Exam Extremities Exam: absent: Calf Tenderness - Back Exam Back Exam: absent: CVA tenderness (L), CVA tenderness (R) - Neurological Exam Neurological Exam: Alert - Psychiatric Exam Psychiatric exam: Normal Affect - Skin Skin Exam: absent: Cyanosis Assessment and Plan (1) Non-ST elevated myocardial infarction (non-STEMI) Assessment & Plan: NSTEMI, CHF/COPD exacerbation with pleural effusions/pulm congestion Acute Kidney Injury (N17.9) possibly due to CHF/cardiorenal, hemodynamic CAD with 3 vessel disease Diabetic chronic Kidney Disease (E11.22) Hypertensive Chronic Kidney Disease (I12.9) Chronic Kidney Disease (N18.3) Stage 3 GFR 44 with 1.7 gram proteinuria (R80.9 ) likely due to ETHEL, NSAIDs Anemia (D64.9), HTN (I12.9), Rt JASON 60%, PVD, CAD, CA breast renal cysts vit D def patient is stable clinically she is out of bed awake and conscious and feeling very good and requesting to go home although patient is receiving oxygen through nasal cannula Status: Acute
[2017-12-22] MEDS: (Novolin R) Insulin Human Regular 100 units/ml vial SC SCH ×4 (08:30→21:57)
[2017-12-22] MEDS: Multivitamin Vitamin B Complex (Nephro-Vite) Tab PO SCH (08:31)
[2017-12-22] MEDS: Ranolazine 500 mg Extended Release Tablets PO SCH ×2 (10:39→18:20)
[2017-12-22] MEDS: Metoprolol Succinate 50 mg XL Tab PO SCH (10:39)
[2017-12-22] MEDS: Pantoprazole 40 mg EC Tab PO SCH (10:39)
--- NOTE | 2017-12-22 14:24 | PN ---
DATE: 12/22/2017. SUBJECTIVE: The patient is seen. The patient still wants to go home according to the sample case porter. Her friend Guido is no longer willing to be her power of employment attorney but was willing to help her apply for Medicaid. The sample case porter is trying to talk to the sister. Hopefully, the sister will help the patient, otherwise the patient will not be able to go home as she needs 24 hour care. She said she wants to go home because she has a nice home, but the patient has told her doctor that she can go home because she needs oxygen and the building management will not allow her and the patient really needs 24 hour care because the patient is unable to take care of herself. The patient's mood is irritable. VITAL SIGNS: Temperature 98.3, pulse 68, blood pressure 139/57, respirations 18, oxygen saturations 96%. REVIEW OF SYSTEMS: GENERAL: The patient is alert, verbal, still irritable, seen in her room. She still wants to go home. SKIN: No diaphoresis. HEENT: Still hard of hearing. No headache. NECK: Supple. RESPIRATORY: Has chronic dyspnea. CARDIOVASCULAR: No chest pain. GASTROINTESTINAL: Appetite is variable. MUSCULOSKELETAL: Has chronic back pain. EXTREMITIES: Gait is unsteady. NEUROLOGIC: Alert with periods of confusion. GENITOURINARY: No dysuria. MENTAL STATUS EXAMINATION: Elderly female who looks stated age, oriented x2, place and person at a time. Mood is irritable. Affect is reactive. Speech is spontaneous. Thought process is confused. Thought content, still wants to go home insisting that she can take care of herself. According to her, today she met with her doctor Dr. Brown because her doctor told that she can go home. No overt psychosis. No suicidal or homicidal ideation. In reality, the patient needs 24 hour care if discharged home. Attention and memory is still limited. Insight and judgment limited. Impulse control is fair at this time. IMPRESSION: History of anxiety disorder, delirium, metabolic encephalopathy, dementia with mood changes, history of chronic obstructive pulmonary disease. PLAN AND RECOMMENDATIONS: The patient is seen, meds reviewed. Continue present management. Continue her psych medication. The patient is still not able to be discharged to home as she needs 24 hour care. The patient is on Ambien 5 mg at bedtime prn as well as Xanax 0.25 mg p.o. t.i.d. p.r.n. The patient has not used her Ambien but has taken the Xanax p.r.n. Continue treatment plan as outlined. Demetrius Burdick MD MTDJean[facility]
--- NOTE | 2017-12-22 14:26 | PN ---
DATE: SUBJECTIVE: At this point, she is telling that she wants leave AMA from the hospital as per Dr. Burdick's note, Psychiatry says, she cannot be left alone. She now has oxygen on. She is a known smoker, has not quit yet, i have been trying to get her to quit for many years. I do not think it is a petit idea for her to be on oxygen in the current situation in which she can smoke. Dr. Myers stated she needs 24-hour care and should not be left alone I don't know how are they going to arrange that at her house. She is getting very upset and angry, she does get time to time. PHYSICAL EXAMINATION: VITAL SIGNS: Temperature 98.1, pulse 68, blood pressure 129/54, respiratory rate 20, 100% O2 sat on 2 L nasal cannula. HEENT: Head is atraumatic and normocephalic. HEART: Regular rate. LUNGS: Decreased breath sounds but clear. ABDOMEN: Soft. EXTREMITIES: No edema. She is physical therapy. She is to get out of bed every day to chair and get physical therapy. Ultrasound of the abdomen and pelvis what we have is fairly normal. MEDICATIONS: She is currently on Advair, Ambien, Apresoline, Drisdol, Ecotrin, Fergon, heparin, Imdur, Januvia, Lasix, Nephro-Karolyn, Novolin, Pepcid, Protonix, Ranexa, Spiriva, Toprol, Tylenol, Ultram, and Xanax. LABORATORY DATA: She has a less blood sugars of 102, today's SMA-20 is not back yet. Yesterday's, sodium 138, potassium 4, BUN 29, creatinine 1.2, GFR is 44, calcium is 8.7, total bili is 0.5, AST is 14, ALT is 26, alk phos 44. White count 8.6, 11.2, hemoglobin, 32.9 hematocrit with 225 platelets. She will be discharged problem. Psychiatry said that she can't take care of herself. I do not think it is petit to send her back to home with oxygen as she smoked. I do believe she needs permanent mcc placement, I don't know if that can be arranged with her insurance. We will continue with the aggressive treatment and care, take her out of bed to chair every day and physical therapy.she has acute on chronic systolic chf John Brown DO MTDJeaneth
[2017-12-23] MEDS: Tiotropium 18 mcg Cap For Inhalation INH SCH (07:35)
[2017-12-23] MEDS: Fluticasone-Salmeterol 250-50mcg Diskus INH SCH ×2 (07:35→19:55)
[2017-12-23] MEDS: (Novolin R) Insulin Human Regular 100 units/ml vial SC SCH ×4 (08:03→21:33)
[2017-12-23] MEDS: Multivitamin Vitamin B Complex (Nephro-Vite) Tab PO SCH (08:03)
[2017-12-23] MEDS: Ranolazine 500 mg Extended Release Tablets PO SCH ×2 (09:14→17:43)
[2017-12-23] MEDS: Pantoprazole 40 mg EC Tab PO SCH (09:14)
[2017-12-23] MEDS: Metoprolol Succinate 50 mg XL Tab PO SCH (09:15)
--- NOTE | 2017-12-23 20:42 | CP.PCM.PN ---
Subjective - Date & Time of Evaluation Date of Evaluation: 12/23/17 Time of Evaluation: 20:41 - Subjective Subjective: Nephrology Consultation Note: Assessment: Stable NSTEMI, CHF/COPD exacerbation with pleural effusions/pulm congestion Acute Kidney Injury (N17.9) possibly due to CHF/cardiorenal, hemodynamic CAD with 3 vessel disease Diabetic chronic Kidney Disease (E11.22) Hypertensive Chronic Kidney Disease (I12.9) Chronic Kidney Disease (N18.3) Stage 3 with 1.7 gram proteinuria (R80.9) likely due to ETHEL, NSAIDs Anemia (D64.9), HTN (I12.9), Rt JASON 60%, PVD, CAD, CA breast renal cysts vit D def Plan No acute need for renal replacement therapy at this time. Hypertension control with meds as ordered. 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 Increased toprol XL to 50 mg/day. increased hydralazine 100 tid Monitor Input/Output, daily weights and renal function with basic metabolic panel supplement electrolytes as needed started iron supplement, MVI and weekly Vit D continue with diuretics getting inhalers for COPD. Dose meds/antibiotics for reduced GFR. Avoid fleets enema/magnesium based laxatives. Avoid nephrotoxins/NSAIDs/ iodinated contrast (unless needed emergently) Glycemic control Further work up/management as per primary team. pt stable for d/c from renal perspective when planned Thanks for allowing me to participate in care of your patient. Will follow patient with you. Please call if any Qs. Dr Shiraz Husain Office: [phone] reason for consult: ETHEL HPI: Pt is a 72 F with hx of diabetes Mellitus (years), hypertension (many years ), CAD s/p stent, PVD s/p iliac stent, Rt renal artery stenosis 60%, Ca breast s /p chemo presented with complaints of chest pain and SOB, managed for CHF and NSTEMI in past, reported heavy use of NSAIDs as naproxen, up to 10 tab/day for months probably has baseline CKD with cr 1.0-1.2 with intermittent AKIs ROS: She is irritable. wants to go home.denies short of breath. Denies any urinary complaint. No nausea vomiting. Physical Examination: General Appearance: Comfortable, in no acute respiratory distress Vitals reviewed and noted as below Head; Atraumatic, normocephalic ENT: no ulcers no thrush. Tongue is midline. Oropharynx: no rash or ulcers. EYES: Pupils are equal, round and reactive to light accommodation. Eye muscles and extra-ocular movement intact. Sclera is anicteric. Neck; supple no lymphadenopathy, no thyromegaly or bruit Lungs: Normal respiratory rate/effort. Breath sounds bilateral clear Heart: Normal rate. s1s2 normal. No rub or gallop. Extremities: no edema. No varicose veins Neurological: Patient is Awake alert follow commands. Moving all 4 extremities. No focal deficit Skin: Warm and dry. Normal turgor. No rash. Palpitation: Normal elasticity for age Abdomen: Abdomen is soft. Bowel sounds +. There is no abdominal tenderness, no guarding/rigidity no organomegaly Psych: Limited insight. Patient is often very irritable. MSK: no joint tenderness or swelling. Digits and nails normal, no deformity : kidney or bladder not palpable Labs/imaging reviewed. Past medical history, past surgical history, family history, social history, allergy reviewed and noted as below Family hx: no hx of CKD. Rest non-contributory sono jun 2017: simple cyst. previous CT showed stable complex cyst left kidney echo; moderate to severe TR SPEP/AMY neg, serum FLC assay WNL. Vit D <12.8 PTH 168 TSAT 4% Ferritin 19 Hep B and C neg Objective - Vital Signs/Intake and Output Vital Signs (last 24 hours): Temp Pulse Resp BP Pulse Ox 98.8 F 73 20 131/50 L 100 12/23/17 15:01 12/23/17 15:01 12/23/17 15:01 12/23/17 15:01 12/23/17 15:01 Intake and Output: 12/23/17 12/24/17 18:59 06:59 Intake Total 600 Balance 600 - Medications Medications: Current Medications Acetaminophen (Tylenol 325mg Tab) 650 mg PO Q6 PRN PRN Reason: Pain, Mild (1-3) Last Admin: 12/23/17 17:48 Dose: 650 mg Alprazolam (Xanax) 0.25 mg PO TID PRN PRN Reason: Anxiety Stop: 12/25/17 19:21 Last Admin: 12/23/17 13:44 Dose: 0.25 mg Aspirin (Ecotrin) 81 mg PO DAILY [facility] Last Admin: 12/23/17 09:16 Dose: 81 mg Ergocalciferol (Drisdol 50,000 Intl Units Cap) 1 cap PO Q7D [facility] Last Admin: 12/18/17 10:50 Dose: 1 cap Famotidine (Pepcid) 20 mg PO DAILY [facility] Last Admin: 12/23/17 09:14 Dose: 20 mg Ferrous Gluconate (Fergon) 324 mg PO TID [facility] Last Admin: 12/23/17 17:43 Dose: 324 mg Furosemide (Lasix) 40 mg PO DAILY [facility] Last Admin: 12/23/17 09:16 Dose: 40 mg Heparin Sodium (Porcine) (Heparin) 5,000 units SC Q12 [facility] Last Admin: 12/23/17 09:14 Dose: 5,000 units Hydralazine HCl (Apresoline) 100 mg PO TID [facility] Last Admin: 12/23/17 17:43 Dose: 100 mg Insulin Human Regular (Novolin R) 0 unit SC ACHS [facility] PRN Reason: Protocol Last Admin: 12/23/17 17:44 Dose: 2 unit Isosorbide Mononitrate (Imdur) 60 mg PO DAILY [facility] Last Admin: 12/23/17 09:15 Dose: 60 mg Metoprolol Succinate (Toprol Xl) 50 mg PO DAILY [facility] Last Admin: 12/23/17 09:15 Dose: 50 mg Pantoprazole Sodium (Protonix Ec Tab) 40 mg PO DAILY [facility] Last Admin: 12/23/17 09:14 Dose: 40 mg Ranolazine (Ranexa) 500 mg PO BID [facility] Last Admin: 12/23/17 17:43 Dose: 500 mg Fluticasone/Salmeterol (Advair Diskus 250/50) 1 puff INH RQ12 [facility] Last Admin: 12/23/17 19:55 Dose: Not Given Sitagliptin Phosphate (Januvia) 25 mg PO DAILY [facility] Last Admin: 12/23/17 09:15 Dose: 25 mg Tiotropium [place] (Spiriva) 18 mcg INH RQ24 [facility] Last Admin: 12/23/17 07:35 Dose: 18 mcg Tramadol HCl (Ultram) 50 mg PO Q8 PRN PRN Reason: Pain Last Admin: 12/23/17 12:03 Dose: 50 mg Vitamin B Complex/Vit C/Folic Acid (Nephro-Karolyn) 1 tab PO Q24H [facility] Last Admin: 12/23/17 08:03 Dose: 1 tab Zolpidem Tartrate (Ambien) 5 mg PO HS PRN PRN Reason: Insomnia - Labs Labs: 12/20/17 07:14 12/20/17 07:14 PT 17.3 SECONDS (9.7-12.2) H 12/09/17 00:22 INR 1.5 12/09/17 00:22 APTT 34 SECONDS (21-34) 12/09/17 00:22
--- NOTE | 2017-12-23 20:43 | PN ---
DATE: SUBJECTIVE: The patient is still irritable and [place] and demanding to go home, but she was told that she cannot go home because she cannot walk and she needs 24-hour care. The patient reports that she has a strange relationship with sister and sister is not willing to help her friend Guido. He is now reluctant to help her to be her power of admitted attorneys. So the patient is still waiting in the hospital for medical clearance to be discharged, but right now she thinks she is okay for discharge. PHYSICAL EXAMINATION VITAL SIGNS: Temperature 98.8, pulse rate 73, blood pressure 131/50, respirations 20, oxygen saturations 100%. REVIEW OF SYSTEMS: GENERAL: The patient is alert, verbal, irritable, seen in her room. SKIN: No diaphoresis. HEENT: Still hard of hearing. No dizziness. NECK: Supple. RESPIRATORY: Has chronic dyspnea. CARDIOVASCULAR: No chest pain. GASTROINTESTINAL: The patient's appetite is variable. EXTREMITIES: Gait is unsteady. MUSCULOSKELETAL: Feels weak. NEUROLOGIC: Alert with periods of confusion. The patient told the doctor that she has she cannot have oxygen at home. The patient has a habit of signing AMA and coming back to hospital after a few hours because she cannot breathe and will call 911. MENTAL STATUS EXAMINATION: Elderly female who looks stated age, alert and oriented x2. Mood is irritable, at times verbally abusive. Affect is reactive. Speech is spontaneous. Thought process, confused. Thought content, still preoccupied about going home. No overt paranoia. No hallucinations. No suicidal or homicidal ideation. Attention and memory seem to be limited. Insight and judgment limited. Impulse control is guarded at this time. IMPRESSION: History of delirium, metabolic encephalopathy, as well as dementia with mood changes. History of chronic obstructive pulmonary disease, history of urinary tract infection, hypertension. PLAN AND RECOMMENDATIONS: The patient is seen, medications reviewed. We will continue present management. The patient still unable to take care of herself. Patient if discharged home and will need 24-hour care. Continue Xanax p.r.n. as ordered, as well as Ambien p.r.n. as ordered. Demetrius Burdick MD [facility] # [id number] MTDD
[2017-12-24] MEDS: (Novolin R) Insulin Human Regular 100 units/ml vial SC SCH ×4 (07:09→22:00)
[2017-12-24] MEDS: Tiotropium 18 mcg Cap For Inhalation INH SCH (07:21)
[2017-12-24] MEDS: Fluticasone-Salmeterol 250-50mcg Diskus INH SCH ×2 (07:21→19:56)
[2017-12-24] MEDS: Multivitamin Vitamin B Complex (Nephro-Vite) Tab PO SCH (08:06)
[2017-12-24] MEDS: Metoprolol Succinate 50 mg XL Tab PO SCH (09:37)
[2017-12-24] MEDS: Pantoprazole 40 mg EC Tab PO SCH (09:37)
[2017-12-24] MEDS: Ranolazine 500 mg Extended Release Tablets PO SCH ×2 (09:48→17:31)
--- NOTE | 2017-12-24 12:14 | PN ---
DATE: SUBJECTIVE: I saw her in bed this morning. She is very happy, smiling, no complaints. She ate her breakfast. She is in good mood. She is telling me she is not wearing the oxygen, although it is around her neck and she thinks she can go home tomorrow. MEDICATIONS: She is on Advair, Ambien, Apresoline, Drisdol, Ecotrin, Fergon, heparin, Imdur, Januvia, Lasix, Nephro-Karolyn, Novolin, Pepcid, Protonix, Ranexa, Spiriva, Toprol, Tylenol, Ultram, and Xanax. She is eating her breakfast well and trying to get out of bed to chair. Waiting for social service and case management to find a place for her to go. PHYSICAL EXAMINATION: VITAL SIGNS: She has 97.9 temp, 88 pulse, 194/76 blood pressure, 131/50 blood pressure, 20 respiratory rate, and 95% on room air, 100% nasal cannula on 2 L. HEENT: Head atraumatic, normocephalic. Throat is moist. NECK: Supple. HEART: Regular rate. LUNGS: Decreased breath sounds bilaterally, but clear. ABDOMEN: Soft. EXTREMITIES: No edema. LABORATORY DATA: She has an 8.6 white count, 11.2 hemoglobin, 32.9 hematocrit, 225 platelets. She did have an SMA-20, last one was on 12/20/2017, and I am not sure why they did not do it any more, I ordered everyday, pending SMA-20 for 3 days. I have ordered it again. She has a blood sugar of 84. ASSESSMENT AND PLAN: She was seen by the psychiatrist and kidney doctor. She is in irritable mood and she could be probably abusive from time to time. As per Psychiatry, the patient is still unable to take care of herself and if she does get discharged home, she needs 24-hour care as per Psychiatry. Continue with aggressive treatment and care on Kathy Inocencio, and I know if she goes, she will be back very quickly and shortly to another hospital. Continue aggressive treatment and care on Kathy Inocencio. Get out of bed to chair, check her labs. John Brown DO [facility] # [id number] MTDJeaneth
--- NOTE | 2017-12-24 16:08 | CP.PCM.PN ---
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 Hypertension control with meds as ordered. 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 Increased toprol XL to 50 mg/day. increased hydralazine 100 tid Monitor Input/Output, daily weights and renal function with basic metabolic panel supplement electrolytes as needed started iron supplement, MVI and weekly Vit D continue with diuretics getting inhalers for COPD. Dose meds/antibiotics for reduced GFR. Avoid fleets enema/magnesium based laxatives. Avoid nephrotoxins/NSAIDs/ iodinated contrast (unless needed emergently) Glycemic control Further work up/management as per primary team. pt stable for d/c from renal perspective when planned Thanks for allowing me to participate in care of your patient. Will follow patient with you. Please call if any Qs. Dr Shiraz Husain Office: [phone] reason for consult: ETHEL HPI: Pt is a 72 F with hx of diabetes Mellitus (years), hypertension (many years ), CAD s/p stent, PVD s/p iliac stent, Rt renal artery stenosis 60%, Ca breast s /p chemo presented with complaints of chest pain and SOB, managed for CHF and NSTEMI in past, reported heavy use of NSAIDs as naproxen, up to 10 tab/day for months probably has baseline CKD with cr 1.0-1.2 with intermittent AKIs ROS: She is irritable. wants to go home.denies short of breath. Denies any urinary complaint. No nausea vomiting. Physical Examination: General Appearance: Comfortable, in no acute respiratory distress Vitals reviewed and noted as below Head; Atraumatic, normocephalic ENT: no ulcers no thrush. Tongue is midline. Oropharynx: no rash or ulcers. EYES: Pupils are equal, round and reactive to light accommodation. Eye muscles and extra-ocular movement intact. Sclera is anicteric. Neck; supple no lymphadenopathy, no thyromegaly or bruit Lungs: Normal respiratory rate/effort. Breath sounds bilateral clear Heart: Normal rate. s1s2 normal. No rub or gallop. Extremities: no edema. No varicose veins Neurological: Patient is Awake alert follow commands. Moving all 4 extremities. No focal deficit Skin: Warm and dry. Normal turgor. No rash. Palpitation: Normal elasticity for age Abdomen: Abdomen is soft. Bowel sounds +. There is no abdominal tenderness, no guarding/rigidity no organomegaly Psych: Limited insight. Patient is often very irritable. MSK: no joint tenderness or swelling. Digits and nails normal, no deformity : kidney or bladder not palpable Labs/imaging reviewed. Past medical history, past surgical history, family history, social history, allergy reviewed and noted as below Family hx: no hx of CKD. Rest non-contributory sono jun 2017: simple cyst. previous CT showed stable complex cyst left kidney echo; moderate to severe TR SPEP/AMY neg, serum FLC assay WNL. Vit D <12.8 PTH 168 TSAT 4% Ferritin 19 Hep B and C neg Objective - Vital Signs/Intake and Output Vital Signs (last 24 hours): Temp Pulse Resp BP Pulse Ox 97.9 F 88 20 181/80 H 95 12/24/17 08:39 12/24/17 08:39 12/24/17 08:39 12/24/17 12:49 12/24/17 08:39 Intake and Output: 12/24/17 12/24/17 06:59 18:59 Intake Total 240 720 Balance 240 720 - Medications Medications: Current Medications Acetaminophen (Tylenol 325mg Tab) 650 mg PO Q6 PRN PRN Reason: Pain, Mild (1-3) Last Admin: 12/24/17 15:54 Dose: 650 mg Alprazolam (Xanax) 0.25 mg PO TID PRN PRN Reason: Anxiety Stop: 12/25/17 19:21 Last Admin: 12/23/17 21:32 Dose: 0.25 mg Aspirin (Ecotrin) 81 mg PO DAILY [facility] Last Admin: 12/24/17 09:37 Dose: 81 mg Ergocalciferol (Drisdol 50,000 Intl Units Cap) 1 cap PO Q7D [facility] Last Admin: 12/18/17 10:50 Dose: 1 cap Famotidine (Pepcid) 20 mg PO DAILY [facility] Last Admin: 12/24/17 09:37 Dose: 20 mg Ferrous Gluconate (Fergon) 324 mg PO TID [facility] Last Admin: 12/24/17 13:02 Dose: 324 mg Furosemide (Lasix) 40 mg PO DAILY [facility] Last Admin: 12/24/17 09:40 Dose: 40 mg Heparin Sodium (Porcine) (Heparin) 5,000 units SC Q12 [facility] Last Admin: 12/24/17 09:37 Dose: 5,000 units Hydralazine HCl (Apresoline) 100 mg PO TID [facility] Last Admin: 12/24/17 13:02 Dose: 100 mg Insulin Human Regular (Novolin R) 0 unit SC ACHS [facility] PRN Reason: Protocol Last Admin: 12/24/17 11:59 Dose: Not Given Isosorbide Mononitrate (Imdur) 60 mg PO DAILY [facility] Last Admin: 12/24/17 09:36 Dose: 60 mg Metoprolol Succinate (Toprol Xl) 50 mg PO DAILY [facility] Last Admin: 12/24/17 09:37 Dose: 50 mg Pantoprazole Sodium (Protonix Ec Tab) 40 mg PO DAILY [facility] Last Admin: 12/24/17 09:37 Dose: 40 mg Ranolazine (Ranexa) 500 mg PO BID [facility] Last Admin: 12/24/17 09:48 Dose: 500 mg Fluticasone/Salmeterol (Advair Diskus 250/50) 1 puff INH RQ12 [facility] Last Admin: 12/24/17 07:21 Dose: Not Given Sitagliptin Phosphate (Januvia) 25 mg PO DAILY [facility] Last Admin: 12/24/17 09:36 Dose: 25 mg Tiotropium [place] (Spiriva) 18 mcg INH RQ24 [facility] Last Admin: 12/24/17 07:21 Dose: Not Given Tramadol HCl (Ultram) 50 mg PO Q8 PRN PRN Reason: Pain Last Admin: 12/24/17 12:46 Dose: 50 mg Vitamin B Complex/Vit C/Folic Acid (Nephro-Karolyn) 1 tab PO Q24H [facility] Last Admin: 12/24/17 08:06 Dose: 1 tab Zolpidem Tartrate (Ambien) 5 mg PO HS PRN PRN Reason: Insomnia - Labs Labs: 12/20/17 07:14 12/20/17 07:14 PT 17.3 SECONDS (9.7-12.2) H 12/09/17 00:22 INR 1.5 12/09/17 00:22 APTT 34 SECONDS (21-34) 12/09/17 00:22
--- NOTE | 2017-12-24 19:31 | PN ---
DATE: 12/24/2017 SUBJECTIVE: The patient was seen. The patient in better mood today. She thinks she is going home tomorrow. When asked about her help outside, she states she has a neighbor named Keena and Keena's helping her as well as her friend Guido. The patient is still insisting she can take care of herself, but the patient has not been walking well. She has unsteady gait. She also complains that she does not need oxygen, but the patient in the past has been discharged and then calls 911 right away after a few hours because she cannot breathe. The patient is still insisting that she can go home. She said she wants to take care of her pet dog and pet cat. She has been compliant with meds here. No behavioral problems today. Not complaining of back pain. VITAL SIGNS: Temperature is 97.9, pulse rate is 88, blood pressure reading seems to be high today at 181/80, respirations 20, and oxygen saturation is 95%. REVIEW OF SYSTEMS: GENERAL: She is alert, oriented x3, and verbal today, pleasant, she has makeup. She says she will be going home tomorrow. SKIN: No diaphoresis. HEENT: No hard of hearing. No headache. NECK: Supple. RESPIRATORY: Not in acute respiratory distress. CARDIOVASCULAR: No chest pain. GASTROINTESTINAL: She is eating well. EXTREMITIES: The patient moves extremities and she has been walking. Her gait has been steady. NEUROLOGIC: Alert but with periods of confusion. GENITOURINARY: No dysuria. MENTAL STATUS EXAMINATION: Elderly female, who looks stated age, alert and oriented x3. Mood is still anxious, less irritable. Affect is reactive. Speech is spontaneous. Thought process, coherent. Thought content, the patient states she will be going home tomorrow. No paranoia. No hallucinations. No suicidal or homicidal ideation. Attention and memory is still limited. Insight and judgment is limited. Impulse control is fair at this time. IMPRESSION: History of delirium, metabolic encephalopathy secondary to exacerbation of chronic obstructive pulmonary disease as well as dementia with mood changes as well as history of urinary tract infection, chronic heart failure, chronic obstructive pulmonary disease, pulmonary edema. PLAN AND RECOMMENDATIONS: The patient was seen and meds reviewed. Continue present management. Continue treatment plan. The patient will be discharged, she will need 24-hour help at home. She states she is trying to make arrangement. Continue present psych meds as ordered. Demetrius Burdick MD [facility]
[2017-12-25] MEDS: Tiotropium 18 mcg Cap For Inhalation INH SCH (07:20)
[2017-12-25] MEDS: Fluticasone-Salmeterol 250-50mcg Diskus INH SCH ×2 (07:20→19:04)
--- NOTE | 2017-12-25 08:14 | PN ---
DATE: SUBJECTIVE: I saw her in bed this morning. She is very upset as she cannot go home. She tells me she is going AMA on Monday. She is on oxygen. She tells me she would not smoke anymore, but she has said that to me multiple times and she went back to smoking, so we cannot get her oxygen at home. She tells me she is not getting any physical therapy and not getting out of bed to chair on multiple attempts. MEDICATIONS: She is on Advair, Ambien, Apresoline, Drisdol, Ecotrin, Klor-Con, heparin, Imdur, Januvia, Lasix, Nephro-Karolyn, Novolin, Pepcid, Protonix, Ranexa, Spiriva, Toprol, Tylenol, Ultram, and Xanax. PHYSICAL EXAMINATION VITAL SIGNS: She has a 98.6 temperature, 66 pulse, 145/55 blood pressure, 20 respiratory rate. HEENT: Head: Atraumatic and normocephalic. Throat: Moist. GENERAL: She is alert and oriented at this time, upset about the situation. NECK: Supple. HEART: Regular rate. LUNGS: Decreased breath sounds, but is clear. ABDOMEN: Soft and nontender. Positive bowel sounds. EXTREMITIES: No edema. LABORATORY DATA: She has an 8.6 white count, 11.2 hemoglobin, 32.9 hematocrit, with 225 platelets. She has 138 sodium, potassium is 4, BUN 29, creatinine 1.2. every day do not have . AST is 14, ALT is 26, alk phos 44, Other laboratories today ordered. done tomorrow. Try to get her out of bed to chair, have to get physical therapy, plan. as per Psychiatry, she is not in 24 hours John Brown DO cc: MTDJeaneth
[2017-12-25] MEDS: Multivitamin Vitamin B Complex (Nephro-Vite) Tab PO SCH ×2 (08:31→10:49)
[2017-12-25] MEDS: (Novolin R) Insulin Human Regular 100 units/ml vial SC SCH ×4 (08:33→21:48)
[2017-12-25] MEDS: Metoprolol Succinate 50 mg XL Tab PO SCH (10:41)
[2017-12-25] MEDS: Pantoprazole 40 mg EC Tab PO SCH (10:41)
[2017-12-25] MEDS: Ranolazine 500 mg Extended Release Tablets PO SCH ×2 (10:42→19:43)
--- NOTE | 2017-12-25 10:43 | PN ---
DATE: SUBJECTIVE: She is resting comfortably in bed. She slept fairly well last night. She is not in a happy mood today. She is very antagonistic this morning, and not really answering questions to me. MEDICATIONS: She is on Advair, Ambien, Apresoline, Drisdol, Ecotrin, Fergon, heparin, Imdur, Januvia, Lasix, Nephro-Karolyn, Novolin, Pepcid, Protonix, Ranexa, Spiriva, Toprol, Tylenol, Ultram, and Xanax. PHYSICAL EXAMINATION VITAL SIGNS: She has 97.8 temp, 82 pulse, 144/66 blood pressure, 20 respiratory rate, and 94% O2 saturation on room air. HEENT: Head atraumatic, normocephalic. HEART: Regular rate. LUNGS: Decreased breath sounds bilaterally. ABDOMEN: Soft. EXTREMITIES: No edema. She has done not great, not doing much in therapy. LABORATORY DATA: She has an 8.6 white count, which was on 12/20/2017, hemoglobin 11.2, platelets of 225. Last blood sugar was 110. Last chemistry was on 12/20/2017, there was 138 sodium, potassium 4, BUN 29, creatinine 1.2, AST is 14, ALT is 26, alk phos is 44. She has been refusing her labs. She has been seen by Renal and Psychiatry. Psychiatry states that she is anxious and irritable and if she goes home, she needs 24-hour help at home actually she states. As per Psychiatry's request, social contact worker and case management to have her discharged to an appropriate discharge place, facility, or home with 24-hour help. I told her to never smoke again, especially if she has oxygen. John Brown DO
[2017-12-25] MEDS: Ergocalciferol 50,000 Intl Units Cap PO SCH (10:46)
--- NOTE | 2017-12-25 15:49 | CP.PCM.PN ---
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 Hypertension control with meds as ordered. 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 Increased toprol XL to 50 mg/day. increased hydralazine 100 tid Monitor Input/Output, daily weights and renal function with basic metabolic panel supplement electrolytes as needed started iron supplement, MVI and weekly Vit D continue with diuretics getting inhalers for COPD. Dose meds/antibiotics for reduced GFR. Avoid fleets enema/magnesium based laxatives. Avoid nephrotoxins/NSAIDs/ iodinated contrast (unless needed emergently) Glycemic control Further work up/management as per primary team. pt stable for d/c from renal perspective when planned Thanks for allowing me to participate in care of your patient. Will follow patient with you. Please call if any Qs. Dr Shiraz Husain Office: [phone] reason for consult: ETHEL HPI: Pt is a 72 F with hx of diabetes Mellitus (years), hypertension (many years ), CAD s/p stent, PVD s/p iliac stent, Rt renal artery stenosis 60%, Ca breast s /p chemo presented with complaints of chest pain and SOB, managed for CHF and NSTEMI in past, reported heavy use of NSAIDs as naproxen, up to 10 tab/day for months probably has baseline CKD with cr 1.0-1.2 with intermittent AKIs ROS: She is irritable. wants to go home.denies short of breath. Denies any urinary complaint. No nausea vomiting. Physical Examination: General Appearance: Comfortable, in no acute respiratory distress Vitals reviewed and noted as below Head; Atraumatic, normocephalic ENT: no ulcers no thrush. Tongue is midline. Oropharynx: no rash or ulcers. EYES: Pupils are equal, round and reactive to light accommodation. Eye muscles and extra-ocular movement intact. Sclera is anicteric. Neck; supple no lymphadenopathy, no thyromegaly or bruit Lungs: Normal respiratory rate/effort. Breath sounds bilateral clear Heart: Normal rate. s1s2 normal. No rub or gallop. Extremities: no edema. No varicose veins Neurological: Patient is Awake alert follow commands. Moving all 4 extremities. No focal deficit Skin: Warm and dry. Normal turgor. No rash. Palpitation: Normal elasticity for age Abdomen: Abdomen is soft. Bowel sounds +. There is no abdominal tenderness, no guarding/rigidity no organomegaly Psych: Limited insight. Patient is often very irritable. MSK: no joint tenderness or swelling. Digits and nails normal, no deformity : kidney or bladder not palpable Labs/imaging reviewed. Past medical history, past surgical history, family history, social history, allergy reviewed and noted as below Family hx: no hx of CKD. Rest non-contributory sono jun 2017: simple cyst. previous CT showed stable complex cyst left kidney echo; moderate to severe TR SPEP/AMY neg, serum FLC assay WNL. Vit D <12.8 PTH 168 TSAT 4% Ferritin 19 Hep B and C neg Objective - Vital Signs/Intake and Output Vital Signs (last 24 hours): Temp Pulse Resp BP Pulse Ox 97.8 F 82 20 146/65 94 L 12/24/17 23:15 12/24/17 23:15 12/24/17 23:15 12/25/17 13:42 12/24/17 23:15 Intake and Output: 12/25/17 12/25/17 06:59 18:59 Intake Total 240 720 Balance 240 720 - Medications Medications: Current Medications Acetaminophen (Tylenol 325mg Tab) 650 mg PO Q6 PRN PRN Reason: Pain, Mild (1-3) Last Admin: 12/25/17 10:47 Dose: 650 mg Alprazolam (Xanax) 0.25 mg PO TID PRN PRN Reason: Anxiety Stop: 12/25/17 19:21 Last Admin: 12/25/17 13:41 Dose: 0.25 mg Aspirin (Ecotrin) 81 mg PO DAILY [facility] Last Admin: 12/25/17 10:41 Dose: 81 mg Ergocalciferol (Drisdol 50,000 Intl Units Cap) 1 cap PO Q7D [facility] Last Admin: 12/25/17 10:46 Dose: 1 cap Famotidine (Pepcid) 20 mg PO DAILY [facility] Last Admin: 12/25/17 10:41 Dose: 20 mg Ferrous Gluconate (Fergon) 324 mg PO TID [facility] Last Admin: 12/25/17 13:41 Dose: 324 mg Furosemide (Lasix) 40 mg PO DAILY [facility] Last Admin: 12/25/17 10:41 Dose: 40 mg Heparin Sodium (Porcine) (Heparin) 5,000 units SC Q12 [facility] Last Admin: 12/25/17 10:42 Dose: 5,000 units Hydralazine HCl (Apresoline) 100 mg PO TID [facility] Last Admin: 12/25/17 13:41 Dose: 100 mg Insulin Human Regular (Novolin R) 0 unit SC ACHS [facility] PRN Reason: Protocol Last Admin: 12/25/17 12:01 Dose: Not Given Metoprolol Succinate (Toprol Xl) 50 mg PO DAILY [facility] Last Admin: 12/25/17 10:41 Dose: 50 mg Pantoprazole Sodium (Protonix Ec Tab) 40 mg PO DAILY [facility] Last Admin: 12/25/17 10:41 Dose: 40 mg Ranolazine (Ranexa) 500 mg PO BID [facility] Last Admin: 12/25/17 10:42 Dose: 500 mg Fluticasone/Salmeterol (Advair Diskus 250/50) 1 puff INH RQ12 [facility] Last Admin: 12/25/17 07:20 Dose: Not Given Sitagliptin Phosphate (Januvia) 25 mg PO DAILY [facility] Last Admin: 12/25/17 10:41 Dose: 25 mg Tiotropium [place] (Spiriva) 18 mcg INH RQ24 [facility] Last Admin: 12/25/17 07:20 Dose: Not Given Tramadol HCl (Ultram) 50 mg PO Q8 PRN PRN Reason: Pain Last Admin: 12/25/17 10:48 Dose: 50 mg Vitamin B Complex/Vit C/Folic Acid (Nephro-Karolyn) 1 tab PO Q24H [facility] Last Admin: 12/25/17 10:49 Dose: 1 tab Zolpidem Tartrate (Ambien) 5 mg PO HS PRN PRN Reason: Insomnia Last Admin: 12/24/17 23:06 Dose: 5 mg - Labs Labs: 12/20/17 07:14 12/20/17 07:14 PT 17.3 SECONDS (9.7-12.2) H 12/09/17 00:22 INR 1.5 12/09/17 00:22 APTT 34 SECONDS (21-34) 12/09/17 00:22
--- NOTE | 2017-12-25 17:48 | PN ---
DATE: SUBJECTIVE: The patient is seen. The patient wants to go home today, but was not medically cleared by Dr. Brown. Her friend Guido came and brought some papers. The patient is applying for Medicaid. So hopefully, she can get some help at home. She is still irritable. The patient insisted she can take care of herself. She has been taking Xanax p.r.n., but the patient needs 24-hour care. The outreach and education social worker is trying to contact some of the relatives to help her manage her affairs at home. PHYSICAL EXAMINATION VITAL SIGNS: Temperature 97.8, pulse rate 82, blood pressure 163/72, respirations 20, oxygen saturation is 94%. The patient continues oxygen treatment. REVIEW OF SYSTEMS: GENERAL: The patient is alert, verbal with periods of confusion, irritable today because she wanted to go home, but the patient cannot go home, she can hardly walk. SKIN: No diaphoresis. HEENT: Somewhat hard of hearing. No dizziness. NECK: Supple. RESPIRATORY: No dyspnea. CARDIOVASCULAR: No chest pain. GASTROINTESTINAL: Appetite is variable. EXTREMITIES: Gait is unsteady. MUSCULOSKELETAL: Feels weak. NEUROLOGIC: Alert, oriented x3 when seen today, still has periods of confusion. GENITOURINARY: No dysuria. MENTAL STATUS EXAMINATION: Elderly female, who looks stated age, very irritable. Speech is loud and verbally abusive. Affect is reactive. Thought process, confused at times. Thought content, the patient preoccupied about going home, but the patient is unsafe for discharge as she needs 24-hour care. The patient can designate a POA for medical and financial care, but she still cannot take care of herself. No psychosis. No suicidal or homicidal ideation. Attention and memory are still limited. Insight and judgment limited. Impulse control is fair at this time. IMPRESSION: Delirium, metabolic encephalopathy secondary to exacerbation of chronic obstructive pulmonary disease as well as dementia with mood changes. PLAN AND RECOMMENDATIONS: The patient was seen, meds reviewed. Continue present management. Continue treatment plan. The patient is unsafe for discharge to home. The patient will need 24-hour care if discharged to home as the patient cannot take care of herself. Demetrius Burdick MD
[2017-12-26] MEDS: (Novolin R) Insulin Human Regular 100 units/ml vial SC SCH ×4 (07:30→22:10)
[2017-12-26] MEDS: Tiotropium 18 mcg Cap For Inhalation INH SCH (07:43)
[2017-12-26] MEDS: Fluticasone-Salmeterol 250-50mcg Diskus INH SCH ×2 (07:43→19:18)
[2017-12-26] MEDS: Ranolazine 500 mg Extended Release Tablets PO SCH ×2 (09:06→17:55)
[2017-12-26] MEDS: Multivitamin Vitamin B Complex (Nephro-Vite) Tab PO SCH (09:06)
[2017-12-26] MEDS: Pantoprazole 40 mg EC Tab PO SCH (09:07)
[2017-12-26] MEDS: Metoprolol Succinate 50 mg XL Tab PO SCH (09:08)
--- NOTE | 2017-12-26 11:28 | PN ---
DATE: SUBJECTIVE: I saw her this morning. She was not feeling that well this morning. She looks better. She stated that she is going AMA yesterday, but it is not safe for her. MEDICATIONS: She is on Advair, Ambien, Apresoline, Drisdol, Ecotrin, Klor-Con, heparin, Januvia, Lasix, Nephro-Karolyn, Novolin, Pepcid, Protonix, Ranexa, Spiriva, Toprol, Tylenol, Ultram, and Xanax. PHYSICAL EXAMINATION VITAL SIGNS: She has 99 temp, 88 pulse, 148/70 blood pressure, 20 respiratory rate, 100% O2 saturation on room air. HEENT: Head is atraumatic and normocephalic. HEART: Regular rate. LUNGS: Decreased breath sounds but clear. ABDOMEN: Soft. EXTREMITIES: No edema. Blood test, last blood sugar 132. 24 hours of care. safe to be discharged. watch her pulse rate out of bed as well. social service. John Brown DO MTDD
--- NOTE | 2017-12-26 16:06 | PN ---
DATE: SUBJECTIVE: The patient is seen, still irritable and [place], and states that she wants to go home. She was talking earlier on the phone with her friend, Guido, who is trying to get her papers for application for Medicaid. The patient was telling the doctor that she will be going for subacute rehab, but needs to be verified as this patient has no subacute days. The patient cannot take of herself as she is unable to walk. PHYSICAL EXAMINATION VITAL SIGNS: Temperature is 97.4, pulse 80, blood pressure 178/82, respirations 18, oxygen saturation 99% on nasal cannula. REVIEW OF SYSTEMS: GENERAL: The patient is alert, verbal, seen in her room, still irritable and [place], and not in acute respiratory distress. The patient continues oxygen treatment. SKIN: No diaphoresis. HEENT: Hard of hearing. No headache. NECK: Supple. RESPIRATORY: Not in acute respiratory distress or dyspnea. CARDIOVASCULAR: No chest pain. GASTROINTESTINAL: Appetite is variable. EXTREMITIES: The patient has been spending most of the time in bed. Gait is unsteady. NEUROLOGIC: Alert, with periods of confusion. GENITOURINARY: No dysuria. MENTAL STATUS EXAMINATION: Elderly female, who looks stated age, alert and oriented x3, still irritable, [place], and verbally abusive. Speech is spontaneous. Affect is reactive. Thought process, confused at times. Thought content, still wants to go home. The patient, however, is unsafe to be discharged at this time. No psychosis. No suicidal or homicidal ideation. Attention and memory seems to be limited. Insight and judgment limited. Impulse control is guarded at this time. IMPRESSION: History of delirium, metabolic encephalopathy secondary to chronic obstructive pulmonary disease, as well as dementia with mood changes. PLAN AND RECOMMENDATIONS: The patient was seen, meds reviewed. Continue present psych meds. The patient is awaiting completion for Medicaid to get some services at home. For now, the patient is unsafe to be discharged to home. She needs 24-hour care and the patient has no more subacute days from the last time I spoke with the bilingual social worker. Demetrius Burdick MD
--- NOTE | 2017-12-26 17:25 | CP.PCM.PN ---
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 Hypertension control with meds as ordered. 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 Increased toprol XL to 50 mg/day. increased hydralazine 100 tid. added norvasc Monitor Input/Output, daily weights and renal function with basic metabolic panel supplement electrolytes as needed started iron supplement, MVI and weekly Vit D continue with diuretics getting inhalers for COPD. Dose meds/antibiotics for reduced GFR. Avoid fleets enema/magnesium based laxatives. Avoid nephrotoxins/NSAIDs/ iodinated contrast (unless needed emergently) Glycemic control Further work up/management as per primary team. pt stable for d/c from renal perspective when planned Thanks for allowing me to participate in care of your patient. Will follow patient with you. Please call if any Qs. Dr Shiraz Husain Office: [phone] reason for consult: ETHEL HPI: Pt is a 72 F with hx of diabetes Mellitus (years), hypertension (many years ), CAD s/p stent, PVD s/p iliac stent, Rt renal artery stenosis 60%, Ca breast s /p chemo presented with complaints of chest pain and SOB, managed for CHF and NSTEMI in past, reported heavy use of NSAIDs as naproxen, up to 10 tab/day for months probably has baseline CKD with cr 1.0-1.2 with intermittent AKIs ROS: She is irritable. wants to go home.denies short of breath. Denies any urinary complaint. No nausea vomiting. pt says "just go away" Physical Examination: General Appearance: Comfortable, in no acute respiratory distress Vitals reviewed and noted as below Head; Atraumatic, normocephalic ENT: no ulcers no thrush. Tongue is midline. Oropharynx: no rash or ulcers. EYES: Pupils are equal, round and reactive to light accommodation. Eye muscles and extra-ocular movement intact. Sclera is anicteric. Neck; supple no lymphadenopathy, no thyromegaly or bruit Lungs: Normal respiratory rate/effort. Breath sounds bilateral clear Heart: Normal rate. s1s2 normal. No rub or gallop. Extremities: no edema. No varicose veins Neurological: Patient is Awake alert Moving all 4 extremities. No focal deficit Skin: Warm and dry. Normal turgor. No rash. Palpitation: Normal elasticity for age Abdomen: Abdomen is soft. Bowel sounds +. There is no abdominal tenderness, no guarding/rigidity no organomegaly Psych: Limited insight. Patient is often very irritable. MSK: no joint tenderness or swelling. Digits and nails normal, no deformity : kidney or bladder not palpable Labs/imaging reviewed. Past medical history, past surgical history, family history, social history, allergy reviewed and noted as below Family hx: no hx of CKD. Rest non-contributory sono jun 2017: simple cyst. previous CT showed stable complex cyst left kidney echo; moderate to severe TR SPEP/AMY neg, serum FLC assay WNL. Vit D <12.8 PTH 168 TSAT 4% Ferritin 19 Hep B and C neg Objective - Vital Signs/Intake and Output Vital Signs (last 24 hours): Temp Pulse Resp BP Pulse Ox 97.5 F L 68 18 142/61 100 12/26/17 15:49 12/26/17 15:49 12/26/17 15:49 12/26/17 15:49 12/26/17 15:49 Intake and Output: 12/26/17 12/26/17 06:59 18:59 Intake Total 600 500 Output Total 300 Balance 300 500 - Medications Medications: Current Medications Acetaminophen (Tylenol 325mg Tab) 650 mg PO Q6 PRN PRN Reason: Pain, Mild (1-3) Last Admin: 12/26/17 10:56 Dose: 650 mg Alprazolam (Xanax) 0.25 mg PO TID PRN PRN Reason: Anxiety Stop: 01/02/18 09:30 Last Admin: 12/26/17 14:19 Dose: 0.25 mg Amlodipine Besylate (Norvasc) 5 mg PO DAILY [facility] Last Admin: 12/26/17 11:29 Dose: 5 mg Aspirin (Ecotrin) 81 mg PO DAILY [facility] Last Admin: 12/26/17 09:08 Dose: 81 mg Ergocalciferol (Drisdol 50,000 Intl Units Cap) 1 cap PO Q7D [facility] Last Admin: 12/25/17 10:46 Dose: 1 cap Famotidine (Pepcid) 20 mg PO DAILY [facility] Last Admin: 12/26/17 09:07 Dose: 20 mg Ferrous Gluconate (Fergon) 324 mg PO TID [facility] Last Admin: 12/26/17 14:19 Dose: 324 mg Furosemide (Lasix) 40 mg PO DAILY [facility] Last Admin: 12/26/17 09:11 Dose: 40 mg Heparin Sodium (Porcine) (Heparin) 5,000 units SC Q12 [facility] Last Admin: 12/26/17 09:07 Dose: 5,000 units Hydralazine HCl (Apresoline) 100 mg PO TID [facility] Last Admin: 12/26/17 14:19 Dose: 100 mg Insulin Human Regular (Novolin R) 0 unit SC ACHS [facility] PRN Reason: Protocol Last Admin: 12/26/17 11:38 Dose: Not Given Isosorbide Mononitrate (Imdur) 60 mg PO DAILY [facility] Metoprolol Succinate (Toprol Xl) 50 mg PO DAILY [facility] Last Admin: 12/26/17 09:08 Dose: 50 mg Pantoprazole Sodium (Protonix Ec Tab) 40 mg PO DAILY [facility] Last Admin: 12/26/17 09:07 Dose: 40 mg Ranolazine (Ranexa) 500 mg PO BID [facility] Last Admin: 12/26/17 09:06 Dose: 500 mg Fluticasone/Salmeterol (Advair Diskus 250/50) 1 puff INH RQ12 [facility] Last Admin: 12/26/17 07:43 Dose: Not Given Sitagliptin Phosphate (Januvia) 25 mg PO DAILY [facility] Last Admin: 12/26/17 09:06 Dose: 25 mg Tiotropium [place] (Spiriva) 18 mcg INH RQ24 [facility] Last Admin: 12/26/17 07:43 Dose: Not Given Tramadol HCl (Ultram) 50 mg PO Q8 PRN PRN Reason: Pain Last Admin: 12/26/17 10:54 Dose: 50 mg Vitamin B Complex/Vit C/Folic Acid (Nephro-Karolyn) 1 tab PO Q24H [facility] Last Admin: 12/26/17 09:06 Dose: 1 tab Zolpidem Tartrate (Ambien) 5 mg PO HS PRN PRN Reason: Insomnia Last Admin: 12/25/17 22:25 Dose: 5 mg - Labs Labs: 12/20/17 07:14 12/20/17 07:14 PT 17.3 SECONDS (9.7-12.2) H 12/09/17 00:22 INR 1.5 12/09/17 00:22 APTT 34 SECONDS (21-34) 12/09/17 00:22
[2017-12-27] MEDS: (Novolin R) Insulin Human Regular 100 units/ml vial SC SCH ×4 (07:46→21:15)
[2017-12-27] MEDS: Multivitamin Vitamin B Complex (Nephro-Vite) Tab PO SCH (07:46)
[2017-12-27] MEDS: Tiotropium 18 mcg Cap For Inhalation INH SCH (08:09)
[2017-12-27] MEDS: Fluticasone-Salmeterol 250-50mcg Diskus INH SCH ×2 (08:09→19:40)
[2017-12-27] MEDS: Pantoprazole 40 mg EC Tab PO SCH (09:50)
[2017-12-27] MEDS: Metoprolol Succinate 50 mg XL Tab PO SCH (09:50)
[2017-12-27] MEDS: Ranolazine 500 mg Extended Release Tablets PO SCH ×2 (09:50→17:20)
--- NOTE | 2017-12-27 11:16 | CP.PCM.PN ---
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 pt refusing any labs Hypertension control with meds as ordered. 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 Increased toprol XL to 50 mg/day. increased hydralazine 100 tid. added norvasc Monitor Input/Output, daily weights and renal function with basic metabolic panel supplement electrolytes as needed started iron supplement, MVI and weekly Vit D continue with diuretics getting inhalers for COPD. Dose meds/antibiotics for reduced GFR. Avoid fleets enema/magnesium based laxatives. Avoid nephrotoxins/NSAIDs/ iodinated contrast (unless needed emergently) Glycemic control Further work up/management as per primary team. pt stable for d/c from renal perspective when planned Thanks for allowing me to participate in care of your patient. Will follow patient with you. Please call if any Qs. Dr Shiraz Husain Office: [phone] reason for consult: ETHEL HPI: Pt is a 72 F with hx of diabetes Mellitus (years), hypertension (many years ), CAD s/p stent, PVD s/p iliac stent, Rt renal artery stenosis 60%, Ca breast s /p chemo presented with complaints of chest pain and SOB, managed for CHF and NSTEMI in past, reported heavy use of NSAIDs as naproxen, up to 10 tab/day for months probably has baseline CKD with cr 1.0-1.2 with intermittent AKIs ROS: She is irritable. wants to go home.denies short of breath. Denies any urinary complaint. No nausea vomiting. pt says "just go away" Physical Examination: General Appearance: Comfortable, in no acute respiratory distress Vitals reviewed and noted as below Head; Atraumatic, normocephalic ENT: no ulcers no thrush. Tongue is midline. Oropharynx: no rash or ulcers. EYES: Pupils are equal, round and reactive to light accommodation. Eye muscles and extra-ocular movement intact. Sclera is anicteric. Neck; supple no lymphadenopathy, no thyromegaly or bruit Lungs: Normal respiratory rate/effort. Breath sounds bilateral clear Heart: Normal rate. s1s2 normal. No rub or gallop. Extremities: no edema. No varicose veins Neurological: Patient is Awake alert Moving all 4 extremities. No focal deficit Skin: Warm and dry. Normal turgor. No rash. Palpitation: Normal elasticity for age Abdomen: Abdomen is soft. Bowel sounds +. There is no abdominal tenderness, no guarding/rigidity no organomegaly Psych: Limited insight. Patient is often very irritable. MSK: no joint tenderness or swelling. Digits and nails normal, no deformity : kidney or bladder not palpable Labs/imaging reviewed. Past medical history, past surgical history, family history, social history, allergy reviewed and noted as below Family hx: no hx of CKD. Rest non-contributory sono jun 2017: simple cyst. previous CT showed stable complex cyst left kidney echo; moderate to severe TR SPEP/AMY neg, serum FLC assay WNL. Vit D <12.8 PTH 168 TSAT 4% Ferritin 19 Hep B and C neg Objective - Vital Signs/Intake and Output Vital Signs (last 24 hours): Temp Pulse Resp BP Pulse Ox 97.9 F 80 18 153/72 H 97 12/27/17 07:20 12/27/17 07:20 12/27/17 07:20 12/27/17 09:49 12/27/17 07:20 Intake and Output: 12/27/17 12/27/17 06:59 18:59 Intake Total 340 Balance 340 - Medications Medications: Current Medications Acetaminophen (Tylenol 325mg Tab) 650 mg PO Q6 PRN PRN Reason: Pain, Mild (1-3) Last Admin: 12/26/17 18:01 Dose: 650 mg Alprazolam (Xanax) 0.25 mg PO TID PRN PRN Reason: Anxiety Stop: 01/02/18 09:30 Last Admin: 12/26/17 20:23 Dose: 0.25 mg Amlodipine Besylate (Norvasc) 5 mg PO DAILY [facility] Last Admin: 12/27/17 09:50 Dose: 5 mg Aspirin (Ecotrin) 81 mg PO DAILY [facility] Last Admin: 12/27/17 09:50 Dose: 81 mg Ergocalciferol (Drisdol 50,000 Intl Units Cap) 1 cap PO Q7D [facility] Last Admin: 12/25/17 10:46 Dose: 1 cap Famotidine (Pepcid) 20 mg PO DAILY [facility] Last Admin: 12/27/17 09:50 Dose: 20 mg Ferrous Gluconate (Fergon) 324 mg PO TID [facility] Last Admin: 12/27/17 09:50 Dose: 324 mg Furosemide (Lasix) 40 mg PO DAILY [facility] Last Admin: 12/27/17 09:49 Dose: 40 mg Heparin Sodium (Porcine) (Heparin) 5,000 units SC Q12 [facility] Last Admin: 12/27/17 09:51 Dose: 5,000 units Hydralazine HCl (Apresoline) 100 mg PO TID [facility] Last Admin: 12/27/17 09:50 Dose: 100 mg Insulin Human Regular (Novolin R) 0 unit SC ACHS [facility] PRN Reason: Protocol Last Admin: 12/27/17 07:46 Dose: Not Given Isosorbide Mononitrate (Imdur) 60 mg PO DAILY [facility] Last Admin: 12/27/17 09:50 Dose: 60 mg Metoprolol Succinate (Toprol Xl) 50 mg PO DAILY [facility] Last Admin: 12/27/17 09:50 Dose: 50 mg Pantoprazole Sodium (Protonix Ec Tab) 40 mg PO DAILY [facility] Last Admin: 12/27/17 09:50 Dose: 40 mg Ranolazine (Ranexa) 500 mg PO BID [facility] Last Admin: 12/27/17 09:50 Dose: 500 mg Fluticasone/Salmeterol (Advair Diskus 250/50) 1 puff INH RQ12 [facility] Last Admin: 12/27/17 08:09 Dose: Not Given Sitagliptin Phosphate (Januvia) 25 mg PO DAILY [facility] Last Admin: 12/27/17 09:50 Dose: 25 mg Tiotropium [place] (Spiriva) 18 mcg INH RQ24 [facility] Last Admin: 12/27/17 08:09 Dose: Not Given Tramadol HCl (Ultram) 50 mg PO Q8 PRN PRN Reason: Pain Last Admin: 12/27/17 05:38 Dose: 50 mg Vitamin B Complex/Vit C/Folic Acid (Nephro-Karolyn) 1 tab PO Q24H [facility] Last Admin: 12/27/17 07:46 Dose: 1 tab Zolpidem Tartrate (Ambien) 5 mg PO HS PRN PRN Reason: Insomnia Last Admin: 12/26/17 21:06 Dose: 5 mg - Labs Labs: 12/20/17 07:14 12/20/17 07:14 PT 17.3 SECONDS (9.7-12.2) H 12/09/17 00:22 INR 1.5 12/09/17 00:22 APTT 34 SECONDS (21-34) 12/09/17 00:22
--- NOTE | 2017-12-27 15:44 | PN ---
DATE: SUBJECTIVE: The patient is seen. The patient is in better mood today, offering some donuts. She said her friend brought some donuts. She refuses to eat her lunch. She is less irritable today. She said that while in the hospital she is okay. Her doctor, Dr. Brown ordered some physical therapy and she is happy about it. The patient still has unsteady gait, and cannot walk well and needs 24-hour care, but her behavior seems to be manageable. The patient has no more subacute days. PHYSICAL EXAMINATION VITAL SIGNS: Temperature 97.9, heart rate 80, blood pressure 153/72, respirations 18, oxygen saturation 97%. REVIEW OF SYSTEMS: GENERAL: The patient is alert and oriented x3, seen in her room, in a better mood today. SKIN: No diaphoresis. HEENT: Hard of hearing. No headache. NECK: Supple. RESPIRATORY: She continues oxygen treatment. CARDIOVASCULAR: No chest pain. GASTROINTESTINAL: The patient is speaking with her food. No nausea. No vomiting. She says she ate some donuts. EXTREMITIES: Gait is unsteady. MUSCULOSKELETAL: Feels weak. NEURO: Alert, with periods of confusion. GENITOURINARY: No dysuria. MENTAL STATUS EXAMINATION: Elderly female, who looks stated age, alert and oriented x3, hard of hearing. Speech is spontaneous. Mood is a little calmer, less irritable, less verbally abusive. Affect is reactive. Thought process, forgetful. Thought content, the patient is happy that she is getting physical therapy here in the hospital. As stated, no psychosis. No suicidal or homicidal ideation. Attention and memory seems to be limited. Insight and judgment limited. Impulse control is poor at this time. IMPRESSION: History of delirium, metabolic encephalopathy secondary to exacerbation of chronic obstructive pulmonary disease, improving as well as history of dementia with mood changes as well as debility and gait dysfunction. PLAN AND RECOMMENDATIONS: The patient was seen, meds reviewed. Continue present psych meds as ordered. The patient is still unsafe for discharge to home. She will need 24-hour care if discharged to home. The patient applying for Medicaid. Demetrius Burdick MD [facility] # [id number]
--- NOTE | 2017-12-27 23:20 | PN ---
DATE: SUBJECTIVE: I saw Kathy in her room today. She is comfortable. She got out of bed and did physical therapy, did a good job. She walked, but the legs are little bit stiff today, but she liked this. She wants to do more therapy. She is feeling little bit better. MEDICATIONS: She is on Advair, Ambien, Apresoline, Drisdol, Ecotrin, Fergon, heparin, Imdur, Januvia, Lasix, Nephro-Karolyn, Norvasc, Novolin, Pepcid, Protonix, Ranexa, Spiriva, Toprol, Tylenol, Ultram, and Xanax. PHYSICAL EXAMINATION: VITAL SIGNS: Temperature 97.9, pulse 80, blood pressure 165/90 and 159/60, respiratory rate 18, oxygen saturation 97% on 2 L nasal cannula. HEENT: Head is atraumatic and normocephalic. Throat is moist. NECK: Supple. HEART: Regular rate. LUNGS: Decreased breath sounds, but clear. ABDOMEN: Soft, nontender. EXTREMITIES: No erythema. She can move all four extremities. NEUROLOGIC: She is alert, smiling, and happy at this time. Usually, she is mean. LABORATORY DATA: White count 8.6, was also on refusing labs. Last blood sugar was 93. She is being seen by Renal and Psychiatry, awaiting for placement for her or 24-hour help at home. As per Psychiatry, she is well and safe to be discharged home and will need 24-hour care if discharged to home. ASSESSMENT AND PLAN: Continue aggressive treatment of care. I encouraged her to physical therapy, eat her food, and take her medicine. I am going to try for tomorrow. John Brown DO MTDD
[2017-12-28] MEDS: Tiotropium 18 mcg Cap For Inhalation INH SCH (07:26)
[2017-12-28] MEDS: Fluticasone-Salmeterol 250-50mcg Diskus INH SCH (07:26)
[2017-12-28] MEDS: (Novolin R) Insulin Human Regular 100 units/ml vial SC SCH ×4 (07:50→21:34)
[2017-12-28] MEDS: Multivitamin Vitamin B Complex (Nephro-Vite) Tab PO SCH (07:53)
--- NOTE | 2017-12-28 10:14 | PN ---
DATE: SUBJECTIVE: I saw Kathy this morning. She was sleeping. She has a heating pack on the right rib. She said she got sore. She was doing well with physical therapy yesterday and was fine. She is eating a little bit better. Still refusing the labs. PHYSICAL EXAMINATION VITAL SIGNS: She has a 97.7 temp, 62 pulse, 117/57 blood pressure, 20 respiratory rate, 100% O2 saturation on 2 L nasal cannula. HEENT: Head is atraumatic and normocephalic. HEART: Regular rate. LUNGS: Decreased breath sounds, but clear. ABDOMEN: Soft. EXTREMITIES: No edema. MEDICATIONS: She is currently on Advair, Ambien, Apresoline, Drisdol, Ecotrin, Fergon, heparin, Imdur, Januvia, Lasix, Nephro-Karolyn, amlodipine, Novolin, Pepcid, Protonix, Ranexa, Spiriva, Toprol, Tylenol, Ultram, and Xanax. LABORATORY DATA: She is still refusing labs. Last lab was on 12/20/2017. Last blood sugar was 93. ASSESSMENT AND PLAN: She is being seen by Psychiatry and Renal. She had multiple issues. She has chronic systolic congestive heart failure, myocardial infarction history, [id number] myocardial infarction, hypertension, acute kidney injury, coronary artery disease, history of delirium, metabolic encephalopathy, chronic obstructive pulmonary disease, history of dementia. As per Psychiatry, unsafe for discharge as she needs 24-hour care. Await for Ring Rolling Machine Operator and Case Management to plan discharge. John Brown DO
[2017-12-28] MEDS: Ranolazine 500 mg Extended Release Tablets PO SCH ×3 (11:00→18:00)
[2017-12-28] MEDS: Metoprolol Succinate 50 mg XL Tab PO SCH (11:00)
[2017-12-28] MEDS: Pantoprazole 40 mg EC Tab PO SCH (11:00)
--- NOTE | 2017-12-28 14:59 | PN ---
DATE: SUBJECTIVE: The patient is seen. The patient has been irritable, back in her irritable mood, demanding morphine, stating that it is the only thing that is helping with her pain. The patient was given morphine before and became very lethargic. The patient is on tramadol for pain and she says she is refusing to have any blood workup unless she is given morphine. PHYSICAL EXAMINATION: VITAL SIGNS: Temperature is 98.1, pulse rate 67, blood pressure 150/61, respirations 20, oxygen saturations 100%. The patient continues oxygen treatment with nasal cannula. REVIEW OF SYSTEMS: GENERAL: The patient is alert and oriented x3, irritable, seen in her room, not in acute respiratory distress, demanding morphine p.r.n. SKIN: No diaphoresis. HEENT: Still hard of hearing. No headache. NECK: Supple. RESPIRATORY: No dyspnea. CARDIOVASCULAR: No chest pain. GASTROINTESTINAL: Eating well. EXTREMITIES: The patient is moving her extremities. Has been having some physical therapy in the hospital. MUSCULOSKELETAL: Feels weak. NEURO: Alert, with periods of confusion. GENITOURINARY: No dysuria. MENTAL STATUS EXAMINATION: Elderly female, who looks stated age. Speech is spontaneous. Verbally abusive at times. Affect is reactive. Mood is irritable. Thought process, forgetful. Thought content, wants morphine p.r.n., despite that she became very lethargic when she had it before. She appears to have compromised respiratory function, but still demanding. No psychosis. No suicidal or homicidal ideation. Attention and memory seems to be limited. Insight and judgment limited. Impulse control is fair at this time. IMPRESSION: History of delirium, metabolic encephalopathy secondary to chronic obstructive pulmonary disease exacerbation as well as dementia, history of debility, history of congestive heart failure, history of urinary tract infection. PLAN AND RECOMMENDATIONS: The patient was seen, meds reviewed. Continue present management. We will keep the patient off narcotics as the patient has history of being very lethargic, which will compromise her breathing. Continue Xanax p.r.n. as well as tramadol p.r.n. The patient is still unsafe for discharge to home without 24-hour care. Demetrius Burdick MD
[2017-12-29] MEDS: (Novolin R) Insulin Human Regular 100 units/ml vial SC SCH ×4 (07:21→21:28)
[2017-12-29] MEDS: Fluticasone-Salmeterol 250-50mcg Diskus INH SCH ×2 (07:56→19:38)
[2017-12-29] MEDS: Tiotropium 18 mcg Cap For Inhalation INH SCH (07:56)
[2017-12-29] MEDS: Multivitamin Vitamin B Complex (Nephro-Vite) Tab PO SCH (08:05)
--- NOTE | 2017-12-29 09:23 | PN ---
DATE: 12/28/2017 SUBJECTIVE: I saw Kathy this morning. She is very upset. She wants morphine and Dilaudid and medicines like that. She is resting comfortably in bed, and she slept all night. She is still refusing labs everyday. She is trying a little bit in therapy. She is eating fair. She is on Advair, Ambien, Apresoline, Drisdol, Ecotrin, Fergon, heparin, Imdur, Januvia, Lasix, Nephro-Karolyn, Norvasc, Novolin, Pepcid, Protonix, Ranexa, Spiriva, Toprol, Tylenol, Ultram, and Xanax. PHYSICAL EXAMINATION: VITAL SIGNS: She has a 98.3 temp, 78 pulse, 160/82 blood pressure, 20 respiratory rate, 98% O2 sat on 2 L nasal cannula. HEENT: Head is atraumatic and normocephalic. Throat is moist. NECK: Supple. HEART: Regular rate and decreased breath sounds but clear. ABDOMEN: Soft. EXTREMITIES: No edema. ASSESSMENT AND PLAN: She is telling me she is having this right hip pain, and she wants pain medicines. We will get an x-ray of the right hip to see what is going on. She has Ultram for pain. Last blood sugar was 86, still waiting for her to get a blood test which is about 8 days. She was being seen by Psychiatry and Renal. Renal cannot do anything because she do not have any labs, and she still needs 24-hour care as per Psychiatry. Continue aggressive treatment and care as per social worker assistant, casework supervisor, and insurance company to arrange a safe discharge for her. John Brown DO
[2017-12-29] MEDS: Pantoprazole 40 mg EC Tab PO SCH (10:42)
[2017-12-29] MEDS: Metoprolol Succinate 50 mg XL Tab PO SCH (10:43)
[2017-12-29] MEDS: Ranolazine 500 mg Extended Release Tablets PO SCH ×2 (10:44→17:30)
--- NOTE | 2017-12-29 11:18 | RAD ---
PROCEDURE: Right Hip Radiographs. HISTORY: pain COMPARISON: None. FINDINGS: BONES: Right hip arthroplasty. No evidence of prosthesis loosening. No osseous fracture. JOINTS: Right hip arthroplasty. SOFT TISSUES: Bilateral iliac vascular stents. OTHER FINDINGS: None. IMPRESSION: Right hip arthroplasty. No acute fracture.
--- NOTE | 2017-12-29 17:17 | CP.PCM.PN ---
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 pt refusing any labs. Says NO to any blood draws. Hypertension control with meds as ordered. 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 Increased toprol XL to 50 mg/day. increased hydralazine 100 tid. added norvasc Monitor Input/Output, daily weights and renal function with basic metabolic panel supplement electrolytes as needed started iron supplement, MVI and weekly Vit D continue with diuretics getting inhalers for COPD. Dose meds/antibiotics for reduced GFR. Avoid fleets enema/magnesium based laxatives. Avoid nephrotoxins/NSAIDs/ iodinated contrast (unless needed emergently) Glycemic control Further work up/management as per primary team. pt stable for d/c from renal perspective when planned Thanks for allowing me to participate in care of your patient. Will follow patient with you. Please call if any Qs. Dr Shiraz Husain Office: [phone] reason for consult: ETHEL HPI: Pt is a 72 F with hx of diabetes Mellitus (years), hypertension (many years ), CAD s/p stent, PVD s/p iliac stent, Rt renal artery stenosis 60%, Ca breast s /p chemo presented with complaints of chest pain and SOB, managed for CHF and NSTEMI in past, reported heavy use of NSAIDs as naproxen, up to 10 tab/day for months probably has baseline CKD with cr 1.0-1.2 with intermittent AKIs ROS: She is irritable. wants to go home.denies short of breath. Denies any urinary complaint. No nausea vomiting. pt says "just go away" Physical Examination: General Appearance: Comfortable, in no acute respiratory distress Vitals reviewed and noted as below Head; Atraumatic, normocephalic ENT: no ulcers no thrush. Tongue is midline. Oropharynx: no rash or ulcers. EYES: Pupils are equal, round and reactive to light accommodation. Eye muscles and extra-ocular movement intact. Sclera is anicteric. Neck; supple no lymphadenopathy, no thyromegaly or bruit Lungs: Normal respiratory rate/effort. Breath sounds bilateral clear Heart: Normal rate. s1s2 normal. No rub or gallop. Extremities: no edema. No varicose veins Neurological: Patient is Awake alert Moving all 4 extremities. No focal deficit Skin: Warm and dry. Normal turgor. No rash. Palpitation: Normal elasticity for age Abdomen: Abdomen is soft. Bowel sounds +. There is no abdominal tenderness, no guarding/rigidity no organomegaly Psych: Limited insight. Patient is often very irritable. MSK: no joint tenderness or swelling. Digits and nails normal, no deformity : kidney or bladder not palpable Labs/imaging reviewed. Past medical history, past surgical history, family history, social history, allergy reviewed and noted as below Family hx: no hx of CKD. Rest non-contributory sono jun 2017: simple cyst. previous CT showed stable complex cyst left kidney echo; moderate to severe TR SPEP/AMY neg, serum FLC assay WNL. Vit D <12.8 PTH 168 TSAT 4% Ferritin 19 Hep B and C neg Objective - Vital Signs/Intake and Output Vital Signs (last 24 hours): Temp Pulse Resp BP Pulse Ox 98 F 77 20 178/55 H 100 12/29/17 07:00 12/29/17 14:37 12/29/17 07:00 12/29/17 14:37 12/29/17 07:00 Intake and Output: 12/29/17 12/29/17 06:59 18:59 Intake Total 340 400 Output Total 400 Balance -60 400 - Medications Medications: Current Medications Acetaminophen (Tylenol 325mg Tab) 650 mg PO Q6 PRN PRN Reason: Pain, Mild (1-3) Last Admin: 12/29/17 14:40 Dose: 650 mg Alprazolam (Xanax) 0.25 mg PO TID PRN PRN Reason: Anxiety Stop: 01/02/18 09:30 Last Admin: 12/28/17 16:53 Dose: 0.25 mg Amlodipine Besylate (Norvasc) 5 mg PO DAILY [facility] Last Admin: 12/29/17 10:42 Dose: 5 mg Aspirin (Ecotrin) 81 mg PO DAILY [facility] Last Admin: 12/29/17 10:42 Dose: 81 mg Ergocalciferol (Drisdol 50,000 Intl Units Cap) 1 cap PO Q7D [facility] Last Admin: 12/25/17 10:46 Dose: 1 cap Famotidine (Pepcid) 20 mg PO DAILY [facility] Last Admin: 12/29/17 10:42 Dose: 20 mg Ferrous Gluconate (Fergon) 324 mg PO TID [facility] Last Admin: 12/29/17 14:38 Dose: 324 mg Furosemide (Lasix) 40 mg PO DAILY [facility] Last Admin: 12/29/17 10:43 Dose: 40 mg Heparin Sodium (Porcine) (Heparin) 5,000 units SC Q12 [facility] Last Admin: 12/29/17 10:44 Dose: 5,000 units Hydralazine HCl (Apresoline) 100 mg PO TID [facility] Last Admin: 12/29/17 14:37 Dose: 100 mg Insulin Human Regular (Novolin R) 0 unit SC [facility] PRN Reason: Protocol Last Admin: 12/29/17 16:38 Dose: Not Given Isosorbide Mononitrate (Imdur) 60 mg PO DAILY [facility] Last Admin: 12/29/17 10:43 Dose: 60 mg Metoprolol Succinate (Toprol Xl) 50 mg PO DAILY [facility] Last Admin: 12/29/17 10:43 Dose: 50 mg Pantoprazole Sodium (Protonix Ec Tab) 40 mg PO DAILY [facility] Last Admin: 12/29/17 10:42 Dose: 40 mg Ranolazine (Ranexa) 500 mg PO BID [facility] Last Admin: 12/29/17 10:44 Dose: 500 mg Fluticasone/Salmeterol (Advair Diskus 250/50) 1 puff INH RQ12 [facility] Last Admin: 12/29/17 07:56 Dose: Not Given Sitagliptin Phosphate (Januvia) 25 mg PO DAILY [facility] Last Admin: 12/29/17 10:45 Dose: Not Given Tiotropium [place] (Spiriva) 18 mcg INH RQ24 [facility] Last Admin: 12/29/17 07:56 Dose: Not Given Tramadol HCl (Ultram) 50 mg PO Q8 PRN PRN Reason: Pain Last Admin: 12/29/17 14:39 Dose: 50 mg Vitamin B Complex/Vit C/Folic Acid (Nephro-Karolyn) 1 tab PO Q24H [facility] Last Admin: 12/29/17 08:05 Dose: Not Given Zolpidem Tartrate (Ambien) 5 mg PO HS PRN PRN Reason: Insomnia Last Admin: 12/28/17 21:14 Dose: 5 mg - Labs Labs: 12/20/17 07:14 12/20/17 07:14 PT 17.3 SECONDS (9.7-12.2) H 12/09/17 00:22 INR 1.5 12/09/17 00:22 APTT 34 SECONDS (21-34) 12/09/17 00:22
--- NOTE | 2017-12-29 19:59 | PN ---
DATE: SUBJECTIVE: The patient seen. The patient is very irritable, verbally abusive, demanding to go home. The patient told that she needs some help at home. The patient is still continued on oxygen treatment and she cannot take care of herself. I told her she needs to wait for Medicaid to be approved, physical services at home. She has trouble sleeping. The patient is on Ambien p.r.n. and takes tramadol, although she is demanding morphine and Xanax p.r.n. The patient is still unsafe for discharge to home alone. VITAL SIGNS: Temperature 98, pulse 77, blood pressure 178/55, respirations 20, oxygen saturation is 100% on nasal cannula. REVIEW OF SYSTEMS: GENERAL: The patient is alert, verbal, irritable. Seen in her room, demanding to be discharged. SKIN: No diaphoresis. HEENT: The patient is still hard of hearing. No headache. NECK: Supple. RESPIRATORY: Chronic dyspnea and continues oxygen treatment. CARDIOVASCULAR: No palpitation. GASTROINTESTINAL: The patient is eating. EXTREMITIES: The patient is moving extremities. MUSCULOSKELETAL: Complaining of back pain. The patient is currently taking tramadol p.r.n. and still asking for morphine which she tried in the past and the patient developed extreme lethargy. NEUROLOGIC: Alert with periods of forgetfulness. GENITOURINARY: No dysuria. MENTAL STATUS EXAMINATION: Elderly female, who looks stated age and oriented x3 and forgetful. Speech is verbally abusive at times. Affect is reactive. Mood is dysphoric, irritable. Thought process, forgetful. Thought content, the patient still wants to go home and states that she cannot take care of herself alone. The patient can hardly walk. No psychosis, suicidal or homicidal ideation. Attention and memory seems to be limited. Insight and judgment limited. Impulse control is fair at this time. IMPRESSION: History of delirium, metabolic encephalopathy secondary to chronic obstructive pulmonary disease with dementia with mood changes, debility, gait dysfunction. PLAN AND RECOMMENDATIONS: The patient is seen, meds reviewed. Continue present psych meds. The patient is still unsafe to be discharged to home alone and needs 24-hour care. The patient is applying for Medicaid. She claims when seen today that she has no family and she is the last one left according to the social scientist. The social scientist spoke with the 86-year-old sister as well as her niece, but both of her relatives are refusing to lend a hand to help her. Demetrius Burdick MD
[2017-12-30 05:33] LABS: HEMOGLOBIN 10.5 g/dL (11.0-16.0); MEAN CORPUSCULAR HEMOGLOBIN 27.3 pg (27.0-31.0); MEAN CORPUSCULAR HGB CONC 33.7 g/dL (33.0-37.0); RBC 3.85 Mil/uL (3.80-5.20); RED CELL DISTRIBUTION WIDTH 24.8 % (11.5-14.5); WHITE BLOOD COUNT 6.3 K/uL (4.8-10.8)
[2017-12-30 06:35] LABS: ALB/GLOB RATIO 1.2 (1.0-2.1); ALBUMIN 3.3 g/dL (3.5-5.0); ALT/SGPT < 6 U/L (9-52); AST/SGOT 10 U/L (14-36); BLOOD UREA NITROGEN 27 mg/dL (7-17); CALCIUM 9.2 mg/dl (8.6-10.4); GFR AFRICAN-AMERICAN 53; GFR NON-AFRICAN AMERICAN 44
[2017-12-30] MEDS: (Novolin R) Insulin Human Regular 100 units/ml vial SC SCH ×3 (07:59→22:41)
[2017-12-30] MEDS: Fluticasone-Salmeterol 250-50mcg Diskus INH SCH ×2 (07:59→19:00)
[2017-12-30] MEDS: Tiotropium 18 mcg Cap For Inhalation INH SCH (07:59)
[2017-12-30] MEDS: Multivitamin Vitamin B Complex (Nephro-Vite) Tab PO SCH (08:42)
[2017-12-30] MEDS: Pantoprazole 40 mg EC Tab PO SCH (10:03)
[2017-12-30] MEDS: Metoprolol Succinate 50 mg XL Tab PO SCH (10:03)
[2017-12-30] MEDS: Ranolazine 500 mg Extended Release Tablets PO SCH ×2 (10:05→17:14)
--- NOTE | 2017-12-30 10:18 | CP.PCM.PN ---
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 pt refusing any labs. Renal function is stabel Hypertension control with meds as ordered. 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 norvasc just added as well as metop and hydral increased yesterday will give couple days to monitor respone po iron continue with diuretics getting inhalers for COPD. S: irritable, wants morphine Physical Examination: General Appearance: Comfortable, in no acute respiratory distress Vitals reviewed and noted as below Head; Atraumatic, normocephalic ENT: no ulcers no thrush. Tongue is midline. Oropharynx: no rash or ulcers. EYES: Pupils are equal, round and reactive to light accommodation. Eye muscles and extra-ocular movement intact. Sclera is anicteric. Neck; supple no lymphadenopathy, no thyromegaly or bruit Lungs: Normal respiratory rate/effort. Breath sounds bilateral clear Heart: Normal rate. s1s2 normal. No rub or gallop. Extremities: no edema. No varicose veins Neurological: Patient is Awake alert Moving all 4 extremities. No focal deficit Skin: Warm and dry. Normal turgor. No rash. Palpitation: Normal elasticity for age Abdomen: Abdomen is soft. Bowel sounds +. There is no abdominal tenderness, no guarding/rigidity no organomegaly Psych: Limited insight. Patient is often very irritable. MSK: no joint tenderness or swelling. Digits and nails normal, no deformity : kidney or bladder not palpable Labs/imaging reviewed. Past medical history, past surgical history, family history, social history, allergy reviewed and noted as below Family hx: no hx of CKD. Rest non-contributory Objective - Vital Signs/Intake and Output Vital Signs (last 24 hours): Temp Pulse Resp BP Pulse Ox 98.1 F 67 20 188/74 H 97 12/30/17 08:10 12/30/17 08:10 12/30/17 08:10 12/30/17 10:04 12/30/17 08:10 Intake and Output: 12/30/17 12/30/17 06:59 18:59 Intake Total 100 Balance 100 - Medications Medications: Current Medications Acetaminophen (Tylenol 325mg Tab) 650 mg PO Q6 PRN PRN Reason: Pain, Mild (1-3) Last Admin: 12/30/17 05:05 Dose: 650 mg Alprazolam (Xanax) 0.25 mg PO TID PRN PRN Reason: Anxiety Stop: 01/02/18 09:30 Last Admin: 12/28/17 16:53 Dose: 0.25 mg Amlodipine Besylate (Norvasc) 5 mg PO DAILY [facility] Last Admin: 12/30/17 10:08 Dose: 5 mg Aspirin (Ecotrin) 81 mg PO DAILY [facility] Last Admin: 12/30/17 10:04 Dose: 81 mg Ergocalciferol (Drisdol 50,000 Intl Units Cap) 1 cap PO Q7D [facility] Last Admin: 12/25/17 10:46 Dose: 1 cap Famotidine (Pepcid) 20 mg PO DAILY [facility] Last Admin: 12/30/17 10:04 Dose: 20 mg Ferrous Gluconate (Fergon) 324 mg PO TID [facility] Last Admin: 12/30/17 10:05 Dose: 324 mg Furosemide (Lasix) 40 mg PO DAILY [facility] Last Admin: 12/30/17 10:04 Dose: 40 mg Heparin Sodium (Porcine) (Heparin) 5,000 units SC Q12 [facility] Last Admin: 12/30/17 10:07 Dose: 5,000 units Hydralazine HCl (Apresoline) 100 mg PO TID [facility] Last Admin: 12/30/17 10:03 Dose: 100 mg Insulin Human Regular (Novolin R) 0 unit SC [facility] PRN Reason: Protocol Last Admin: 12/30/17 07:59 Dose: Not Given Isosorbide Mononitrate (Imdur) 60 mg PO DAILY [facility] Last Admin: 12/30/17 10:07 Dose: 60 mg Metoprolol Succinate (Toprol Xl) 50 mg PO DAILY [facility] Last Admin: 12/30/17 10:03 Dose: 50 mg Morphine Sulfate (Morphine) 1 mg IVP Q4 PRN PRN Reason: Pain, moderate (4-7) Last Admin: 12/30/17 10:00 Dose: 1 mg Pantoprazole Sodium (Protonix Ec Tab) 40 mg PO DAILY [facility] Last Admin: 12/30/17 10:03 Dose: 40 mg Ranolazine (Ranexa) 500 mg PO BID [facility] Last Admin: 12/30/17 10:05 Dose: 500 mg Fluticasone/Salmeterol (Advair Diskus 250/50) 1 puff INH RQ12 [facility] Last Admin: 12/30/17 07:59 Dose: Not Given Sitagliptin Phosphate (Januvia) 25 mg PO DAILY [facility] Last Admin: 12/30/17 10:04 Dose: 25 mg Tiotropium [place] (Spiriva) 18 mcg INH RQ24 [facility] Last Admin: 12/30/17 07:59 Dose: Not Given Tramadol HCl (Ultram) 50 mg PO Q8 PRN PRN Reason: Pain Last Admin: 12/30/17 05:05 Dose: 50 mg Vitamin B Complex/Vit C/Folic Acid (Nephro-Karolyn) 1 tab PO Q24H [facility] Last Admin: 12/30/17 08:42 Dose: 1 tab Zolpidem Tartrate (Ambien) 5 mg PO HS PRN PRN Reason: Insomnia Last Admin: 12/29/17 21:10 Dose: 5 mg - Labs Labs: 12/30/17 05:23 12/30/17 05:23 PT 17.3 SECONDS (9.7-12.2) H 12/09/17 00:22 INR 1.5 12/09/17 00:22 APTT 34 SECONDS (21-34) 12/09/17 00:22
--- NOTE | 2017-12-30 12:51 | PN ---
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 In the meantime, she is resting in bed. She is having for the past two to three days of right-sided pain and thought it will go away, thought it was gas, but it persisted into the right ribs, into the right abdomen and right groin. Not sure what this is. Not being able to do much. Decrease in appetite. I had to get a CAT scan of the chest, abdomen, and pelvis to find out what this is. PHYSICAL EXAMINATION: VITAL SIGNS: She has a 97.9 temp, 68 pulse, 168/67 blood pressure, 20 respiratory rate, 95% O2 saturation on room air via nasal cannula. HEENT: Head is atraumatic and normocephalic. Throat is dry. NECK: Supple. HEART: Regular rate. LUNGS: Decreased breath sounds bilaterally. ABDOMEN: For the most part soft, mild discomfort. No guarding or rebound. Decreased bowel sounds. EXTREMITIES: No edema. MEDICATIONS: She is currently on Advair, Ambien, Apresoline, Drisdol, Ecotrin, Fergon, heparin, Imdur, Januvia, Lasix, Morphine, add it now, Nephro-Karolyn, Norvasc, Novolin, amlodipine, Protonix, Ranexa, Spiriva, Toprol, Tylenol, Xanax. LABORATORY DATA: She did have a blood test that was on 12/30/2017, that is today, she has 6.20 white count, 10.5, hemoglobin, 31.2 hematocrit, 190 platelets. 142 sodium, potassium 4, BUN 27, creatinine 1.2, GFR 44, glucose is 84, calcium is 9.2, total bilirubin is 0.4, AST is 10, ALT is less than 6, alkaline phosphatase is 46, total protein is 6.2. ASSESSMENT AND PLAN: 1. Congestive heart failure. 2. Chronic obstructive pulmonary disease. 3. Now she has abdominal pain. She has been seen by [facility] Psychiatry tomorrow. Order a CAT scan, physical therapy to walking as per social services manager and insurance [employer] is getting a safe place to discharge. John Brown DO MTDJeaneth
--- NOTE | 2017-12-30 21:23 | PN ---
DATE: 12/30/2017SUBJECTIVE: The patient is seen. The patient was finally given morphine 1 mg every 4 hours for pain with Dr. Brown. The patient has been complaining of severe back pain. Today, she said she felt much better. She is more reasonable, less agitated. She said that her friend Guido brought a lot of papers for her Medicaid application. The patient is not having respiratory distress, but advised not to take too much morphine p.r.n. to avoid respiratory depression. REVIEW OF SYSTEMS: GENERAL: The patient is alert, verbal. Seen in her room, much calmer. She stated that her pain is much better relieved with the morphine. Not in acute respiratory distress. SKIN: No diaphoresis. HEENT: Hard of hearing. No headache. NECK: Supple. RESPIRATORY: No dyspnea. CARDIOVASCULAR: No chest pain. GASTROINTESTINAL: Appetite is variable. MUSCULOSKELETAL: Back pain is improving with morphine, but the patient told not to take morphine p.r.n. frequently. EXTREMITIES: The patient has steady gait, but has been spending most time in the bed, has been having physical therapy in the hospital. NEUROLOGIC: Alert and oriented x3, still forgetful. GENITOURINARY: No dysuria. VITAL SIGNS: Temperature is 98.1, pulse 67, blood pressure 188/74, respirations 20, oxygen saturation 97%. MENTAL STATUS EXAMINATION: Elderly female who looks stated age, alert and oriented x3, forgetful. Speech is spontaneous. Mood is calmer. Affect is reactive. Thought process, forgetful. Thought content, no overt psychosis. Still wants to go home, but the patient told that she needs to complete the Medicaid. The patient seems to be more comfortable now after given morphine p.r.n. Thought content, no psychosis. No suicidal or homicidal ideations. Attention and memory seem to be limited. Insight and judgment limited. Impulse control is improving at this time. IMPRESSION: History of delirium, metabolic encephalopathy, exacerbation of chronic obstructive pulmonary disease as well as history of dementia with mood changes, history of congestive heart failure, dehydration, urinary tract infection. RECOMMENDATIONS: The patient is seen, meds reviewed. We will continue present management. Continue treatment plan. The patient is awaiting completion of Medicaid for possible help at home. For now, the patient cannot be discharged to home as she needs 24-hour care. Demetrius Burdick MD [facility] # [id number]
[2017-12-31] MEDS: (Novolin R) Insulin Human Regular 100 units/ml vial SC SCH ×4 (07:07→22:39)
[2017-12-31] MEDS: Tiotropium 18 mcg Cap For Inhalation INH SCH (07:40)
[2017-12-31] MEDS: Fluticasone-Salmeterol 250-50mcg Diskus INH SCH ×2 (07:41→19:53)
[2017-12-31] MEDS: Multivitamin Vitamin B Complex (Nephro-Vite) Tab PO SCH (08:00)
[2017-12-31] MEDS: Pantoprazole 40 mg EC Tab PO SCH (10:04)
[2017-12-31] MEDS: Metoprolol Succinate 50 mg XL Tab PO SCH (10:04)
[2017-12-31] MEDS: Ranolazine 500 mg Extended Release Tablets PO SCH ×2 (10:43→17:06)
--- NOTE | 2017-12-31 12:14 | PN ---
DATE: SUBJECTIVE: She is lying in bed, yelling at the nurses this morning. She is refusing things. She did not get a CAT scan. She said there was contrast involved without any contrast. PHYSICAL EXAMINATION: VITAL SIGNS: She has 98 temperature, 75 pulse, 128/64 blood pressure, 20 respiratory rate, 100% O2 saturation on 2 L nasal cannula. GENERAL: She ate all her breakfast this morning. HEENT: Head is atraumatic, normocephalic. HEART: Regular rate. LUNGS: Decreased breath sounds but clear. ABDOMEN: Soft. Nontender. Positive bowel sounds but there is right-sided pain, can reproduce it. EXTREMITIES: No edema. She did not get her labs this morning, she got it yesterday. Fasting blood sugar was 150. We are going to try again for the CAT scan of the chest, abdomen, and pelvis without contrast. We will try to progress tomorrow, get out of bed to chair, physical therapy, and psychotherapist social worker to help us with discharge plan. John Brown DO MTDD
[2017-12-31] MEDS: Morphine 4 MG/ML VIAL IVP PRN (13:35)
--- NOTE | 2017-12-31 20:27 | CP.PCM.PN ---
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 labs reviewed yesterday, renal function stable bp control w/ meds as ordered hold ACEI/ARB due to recurrent AKIs. po iron continue with diuretics getting inhalers for COPD. S: resting comfortably Physical Examination: General Appearance: Comfortable, in no acute respiratory distress Vitals reviewed and noted as below Head; Atraumatic, normocephalic ENT: no ulcers no thrush. Tongue is midline. Oropharynx: no rash or ulcers. EYES: sclera anicteric Neck; supple Extremities: no edema. No varicose veins Neurological: resting comfrotably Skin: no rash MSK: no joint tenderness or swelling. Digits and nails normal, no deformity Labs/imaging reviewed. Past medical history, past surgical history, family history, social history, allergy reviewed and noted as below Family hx: no hx of CKD. Rest non-contributory Objective - Vital Signs/Intake and Output Vital Signs (last 24 hours): Temp Pulse Resp BP Pulse Ox 98.1 F 76 20 155/80 H 95 12/31/17 16:21 12/31/17 16:21 12/31/17 16:21 12/31/17 16:21 12/31/17 16:21 - Medications Medications: Current Medications Acetaminophen (Tylenol 325mg Tab) 650 mg PO Q6 PRN PRN Reason: Pain, Mild (1-3) Last Admin: 12/30/17 05:05 Dose: 650 mg Alprazolam (Xanax) 0.25 mg PO TID PRN PRN Reason: Anxiety Stop: 01/02/18 09:30 Last Admin: 12/28/17 16:53 Dose: 0.25 mg Amlodipine Besylate (Norvasc) 5 mg PO DAILY [facility] Last Admin: 12/31/17 10:05 Dose: 5 mg Aspirin (Ecotrin) 81 mg PO DAILY [facility] Last Admin: 12/31/17 10:04 Dose: 81 mg Ergocalciferol (Drisdol 50,000 Intl Units Cap) 1 cap PO Q7D [facility] Last Admin: 12/25/17 10:46 Dose: 1 cap Famotidine (Pepcid) 20 mg PO DAILY [facility] Last Admin: 12/31/17 10:05 Dose: 20 mg Ferrous Gluconate (Fergon) 324 mg PO TID [facility] Last Admin: 12/31/17 17:06 Dose: 324 mg Furosemide (Lasix) 40 mg PO DAILY [facility] Last Admin: 12/31/17 10:04 Dose: 40 mg Heparin Sodium (Porcine) (Heparin) 5,000 units SC Q12 [facility] Last Admin: 12/31/17 10:05 Dose: 5,000 units Hydralazine HCl (Apresoline) 100 mg PO TID [facility] Last Admin: 12/31/17 17:06 Dose: 100 mg Insulin Human Regular (Novolin R) 0 unit SC ACHS [facility] PRN Reason: Protocol Last Admin: 12/31/17 16:59 Dose: Not Given Isosorbide Mononitrate (Imdur) 60 mg PO DAILY [facility] Last Admin: 12/31/17 10:06 Dose: 60 mg Metoprolol Succinate (Toprol Xl) 50 mg PO DAILY [facility] Last Admin: 12/31/17 10:04 Dose: 50 mg Morphine Sulfate (Morphine) 1 mg IVP Q4 PRN PRN Reason: Pain, moderate (4-7) Last Admin: 12/31/17 13:35 Dose: 1 mg Pantoprazole Sodium (Protonix Ec Tab) 40 mg PO DAILY [facility] Last Admin: 12/31/17 10:04 Dose: 40 mg Ranolazine (Ranexa) 500 mg PO BID [facility] Last Admin: 12/31/17 17:06 Dose: 500 mg Fluticasone/Salmeterol (Advair Diskus 250/50) 1 puff INH RQ12 [facility] Last Admin: 12/31/17 19:53 Dose: Not Given Sitagliptin Phosphate (Januvia) 25 mg PO DAILY [facility] Last Admin: 12/31/17 10:04 Dose: 25 mg Tiotropium [place] (Spiriva) 18 mcg INH RQ24 [facility] Last Admin: 12/31/17 07:40 Dose: 18 mcg Tramadol HCl (Ultram) 50 mg PO Q8 PRN PRN Reason: Pain Last Admin: 12/31/17 17:06 Dose: 50 mg Vitamin B Complex/Vit C/Folic Acid (Nephro-Karolyn) 1 tab PO Q24H [facility] Last Admin: 12/31/17 08:00 Dose: 1 tab Zolpidem Tartrate (Ambien) 5 mg PO HS PRN PRN Reason: Insomnia Last Admin: 12/30/17 21:00 Dose: 5 mg - Labs Labs: 12/30/17 05:23 12/30/17 05:23 PT 17.3 SECONDS (9.7-12.2) H 12/09/17 00:22 INR 1.5 12/09/17 00:22 APTT 34 SECONDS (21-34) 12/09/17 00:22
--- NOTE | 2017-12-31 20:59 | PN ---
DATE: SUBJECTIVE: The patient is seen. The patient is getting occasional doses of morphine for back pain. She went for a test today but was unable to complete it. The patient states that she was uncomfortable today. She is still irritable, wants morphine and wants to go home. OBJECTIVE: VITAL SIGNS: Temperature is 98, pulse rate 75, blood pressure is 167/65, respirations 20, oxygen saturation is 100%. REVIEW OF SYSTEMS: GENERAL: The patient is alert, verbal, still irritable, but today she states she is feeling better with the morphine. SKIN: No diaphoresis. HEENT: Still hard of hearing. No headache. NECK: Supple. RESPIRATORY: No dyspnea. CARDIOVASCULAR: No chest pain. GASTROINTESTINAL: Appetite is variable. EXTREMITIES: Gait is steady. MUSCULOSKELETAL: Feels weak. NEUROLOGIC: Alert with periods of confusion. GENITOURINARY: No dysuria. The patient is still on continuous oxygen. She wants to go home but if she go home will need also oxygen. She did tell this doctor that she went home at one time, and she had no oxygen, she has to come back to the emergency room in less than 2 hours. As stated vital signs, temperature 98, pulse 75, blood pressure 167/65, respirations 20, oxygen sats 100%. MENTAL STATUS EXAMINATION: Elderly female who looks stated age, oriented x3. Mood is still irritable, verbally abusive at times. Speech is spontaneous. Affect is reactive. The patient cursing profanities. Thought process forgetful. Thought content, the patient still wants to go home but told that she has to wait for application of Medicaid. The patient needs 24-hour care if discharged to home. Attention and memory seem to be limited. Insight and judgement limited. Impulse control is fair at this time. As stated, she has no psychosis. No suicidal or homicidal ideation. Attention and memory seem to be limited. Insight and judgement limited. Impulse control is guarded at this time. IMPRESSION: History of delirium, metabolic encephalopathy, history of dementia with mood changes, chronic obstructive pulmonary disease as well as history of hypertension, urinary tract infection. PLAN/RECOMMENDATIONS: The patient seen, meds reviewed. Continue present management. The patient is currently on morphine 1 mg every 4 hours p.r.n. which she has been taking sporadically. Continue Ambien p.r.n. as ordered. Continue treatment plan as outlined. Demetrius Burdick MD
[2018-01-01] MEDS: Morphine 4 MG/ML VIAL IVP PRN ×2 (06:59→17:35)
[2018-01-01 07:58] LABS: HEMOGLOBIN 12.1 g/dL (11.0-16.0); MEAN CELL VOLUME 81.4 fL (81.0-99.0); MEAN CORPUSCULAR HEMOGLOBIN 27.2 pg (27.0-31.0); MEAN CORPUSCULAR HGB CONC 33.4 g/dL (33.0-37.0); MEAN PLATELET VOLUME 9.2 fL (7.2-11.7); RBC 4.46 Mil/uL (3.80-5.20); WHITE BLOOD COUNT 6.9 K/uL (4.8-10.8)
--- NOTE | 2018-01-01 08:01 | CP.PCM.PN ---
<Andres Dexter - Last Filed: 01/01/18 09:49> Subjective - Date & Time of Evaluation Date of Evaluation: 01/01/18 Time of Evaluation: 06:30 - Subjective Subjective: PGY5 GI Fellow Progress Note Patient seen and examined bedside this morning. The patient has been hospitalized for approximately one month with ongoing cardiac and pulmonary issues. She began to complain of abdominal pain two days ago. States again that pain is intermittent, cramping in nature and diffuse. Cannot identify any inciting factors and denies symptoms worsening during/after eating. States she is having pain right now but appears comfortable and able to converse, move around in bed without issue. Passed stool yesterday and denies constipation. 12 system ROS performed and negative except where stated. Objective - Vital Signs/Intake and Output Vital Signs (last 24 hours): Temp Pulse Resp BP Pulse Ox 98 F 68 20 152/62 H 100 12/31/17 23:10 12/31/17 23:10 12/31/17 23:10 12/31/17 23:10 12/31/17 23:10 - Medications Medications: Current Medications Acetaminophen (Tylenol 325mg Tab) 650 mg PO Q6 PRN PRN Reason: Pain, Mild (1-3) Last Admin: 12/30/17 05:05 Dose: 650 mg Alprazolam (Xanax) 0.25 mg PO TID PRN PRN Reason: Anxiety Stop: 01/02/18 09:30 Last Admin: 12/28/17 16:53 Dose: 0.25 mg Amlodipine Besylate (Norvasc) 5 mg PO DAILY [facility] Last Admin: 12/31/17 10:05 Dose: 5 mg Aspirin (Ecotrin) 81 mg PO DAILY [facility] Last Admin: 12/31/17 10:04 Dose: 81 mg Ergocalciferol (Drisdol 50,000 Intl Units Cap) 1 cap PO Q7D [facility] Last Admin: 12/25/17 10:46 Dose: 1 cap Famotidine (Pepcid) 20 mg PO DAILY [facility] Last Admin: 12/31/17 10:05 Dose: 20 mg Ferrous Gluconate (Fergon) 324 mg PO TID [facility] Last Admin: 12/31/17 17:06 Dose: 324 mg Furosemide (Lasix) 40 mg PO DAILY [facility] Last Admin: 12/31/17 10:04 Dose: 40 mg Heparin Sodium (Porcine) (Heparin) 5,000 units SC Q12 [facility] Last Admin: 12/31/17 21:26 Dose: Not Given Hydralazine HCl (Apresoline) 100 mg PO TID [facility] Last Admin: 12/31/17 17:06 Dose: 100 mg Insulin Human Regular (Novolin R) 0 unit SC ACHS [facility] PRN Reason: Protocol Last Admin: 12/31/17 22:39 Dose: Not Given Isosorbide Mononitrate (Imdur) 60 mg PO DAILY [facility] Last Admin: 12/31/17 10:06 Dose: 60 mg Metoprolol Succinate (Toprol Xl) 50 mg PO DAILY [facility] Last Admin: 12/31/17 10:04 Dose: 50 mg Morphine Sulfate (Morphine) 1 mg IVP Q4 PRN PRN Reason: Pain, moderate (4-7) Last Admin: 01/01/18 06:59 Dose: 1 mg Pantoprazole Sodium (Protonix Ec Tab) 40 mg PO DAILY [facility] Last Admin: 12/31/17 10:04 Dose: 40 mg Ranolazine (Ranexa) 500 mg PO BID [facility] Last Admin: 12/31/17 17:06 Dose: 500 mg Fluticasone/Salmeterol (Advair Diskus 250/50) 1 puff INH RQ12 [facility] Last Admin: 12/31/17 19:53 Dose: Not Given Sitagliptin Phosphate (Januvia) 25 mg PO DAILY [facility] Last Admin: 12/31/17 10:04 Dose: 25 mg Tiotropium [place] (Spiriva) 18 mcg INH RQ24 [facility] Last Admin: 12/31/17 07:40 Dose: 18 mcg Tramadol HCl (Ultram) 50 mg PO Q8 PRN PRN Reason: Pain Last Admin: 12/31/17 17:06 Dose: 50 mg Vitamin B Complex/Vit C/Folic Acid (Nephro-Karolyn) 1 tab PO Q24H [facility] Last Admin: 12/31/17 08:00 Dose: 1 tab Zolpidem Tartrate (Ambien) 5 mg PO HS PRN PRN Reason: Insomnia Last Admin: 12/31/17 21:26 Dose: 5 mg - Labs Labs: 12/30/17 05:23 12/30/17 05:23 PT 17.3 SECONDS (9.7-12.2) H 12/09/17 00:22 INR 1.5 12/09/17 00:22 APTT 34 SECONDS (21-34) 12/09/17 00:22 - Constitutional Appears: No Acute Distress, Chronically Ill - Eye Exam Eye Exam: EOMI, PERRL - Respiratory Exam Respiratory Exam: Decreased Breath Sounds. absent: Rales, Rhonchi, Wheezes - Cardiovascular Exam Cardiovascular Exam: RRR, +S1, +S2 - GI/Abdominal Exam GI & Abdominal Exam: Soft, Normal Bowel Sounds. absent: Distended, Firm, Guarding, Rigid, Tenderness, Organomegaly - Extremities Exam Extremities Exam: Normal Inspection. absent: Pedal Edema - Neurological Exam Neurological Exam: Alert, Awake, Oriented x3 - Psychiatric Exam Psychiatric exam: Anxious, Normal Affect - Skin Skin Exam: Dry, Warm Assessment and Plan - Assessment and Plan (Free Text) Assessment: Patient is a 72yo female with triple vessel CAD with prior PCI and recommendation for CABG (pt refusing intervention), peripheral vascular disease , CHF, CKD, severe pulmonary hypertension, COPD, prior CVA, DVT, breast cancer s /p chemotherapy who presented to the hospital with chest pain and abd pain -Chronic abdominal pain -Severe CAD -PVD -COPD with pulmonary HTN -CKD -H/O breast cancer Plan: -Patient appears comfortable at this time, pain intermittent and vague in nature with no inciting factors -Would encourage bowel regimen as she is now on opiates; miralax 17g PO QD -Awaiting CT - ideally would be benefit from CT with IV contrast but she is refusing this -Continues to refuse any invasive procedures such as EGD/Colonoscopy -Troponin was rising from time of admission, known severe underlying disease -Patient may have component of chronic mesenteric ischemia given known CAD/PVD -Continue to treat ongoing medical issues and await CT results <Geronimo Macario - Last Filed: 01/01/18 16:19> Objective - Vital Signs/Intake and Output Vital Signs (last 24 hours): Temp Pulse Resp BP Pulse Ox 97.9 F 81 18 145/68 97 01/01/18 08:13 01/01/18 08:13 01/01/18 08:13 01/01/18 13:45 01/01/18 08:13 Intake and Output: 01/01/18 01/01/18 06:59 18:59 Intake Total 600 Balance 600 - Medications Medications: Current Medications Acetaminophen (Tylenol 325mg Tab) 650 mg PO Q6 PRN PRN Reason: Pain, Mild (1-3) Last Admin: 12/30/17 05:05 Dose: 650 mg Alprazolam (Xanax) 0.25 mg PO TID PRN PRN Reason: Anxiety Stop: 01/02/18 09:30 Last Admin: 12/28/17 16:53 Dose: 0.25 mg Amlodipine Besylate (Norvasc) 10 mg PO QPM [facility] Aspirin (Ecotrin) 81 mg PO DAILY [facility] Last Admin: 01/01/18 10:19 Dose: 81 mg Ergocalciferol (Drisdol 50,000 Intl Units Cap) 1 cap PO Q7D [facility] Last Admin: 01/01/18 11:20 Dose: 1 cap Famotidine (Pepcid) 20 mg PO DAILY [facility] Last Admin: 01/01/18 10:18 Dose: 20 mg Ferrous Gluconate (Fergon) 324 mg PO TID [facility] Last Admin: 01/01/18 13:44 Dose: 324 mg Furosemide (Lasix) 20 mg PO DAILY [facility] Heparin Sodium (Porcine) (Heparin) 5,000 units SC Q12 [facility] Last Admin: 01/01/18 10:16 Dose: 5,000 units Hydralazine HCl (Apresoline) 100 mg PO TID [facility] Last Admin: 01/01/18 13:44 Dose: 100 mg Insulin Human Regular (Novolin R) 0 unit SC ACHS [facility] PRN Reason: Protocol Last Admin: 01/01/18 08:09 Dose: Not Given Isosorbide Mononitrate (Imdur) 60 mg PO DAILY [facility] Last Admin: 01/01/18 10:20 Dose: 60 mg Metoprolol Succinate (Toprol Xl) 50 mg PO DAILY [facility] Last Admin: 01/01/18 10:29 Dose: 50 mg Morphine Sulfate (Morphine) 1 mg IVP Q4 PRN PRN Reason: Pain, moderate (4-7) Last Admin: 01/01/18 06:59 Dose: 1 mg Pantoprazole Sodium (Protonix Ec Tab) 40 mg PO DAILY [facility] Last Admin: 01/01/18 10:19 Dose: 40 mg Polyethylene Glycol (Miralax) 17 gm PO DAILY [facility] Ranolazine (Ranexa) 500 mg PO BID [facility] Last Admin: 01/01/18 10:19 Dose: 500 mg Fluticasone/Salmeterol (Advair Diskus 250/50) 1 puff INH RQ12 [facility] Last Admin: 01/01/18 08:02 Dose: Not Given Sitagliptin Phosphate (Januvia) 25 mg PO DAILY [facility] Last Admin: 01/01/18 10:18 Dose: 25 mg Tiotropium [place] (Spiriva) 18 mcg INH RQ24 [facility] Last Admin: 01/01/18 08:02 Dose: 18 mcg Tramadol HCl (Ultram) 50 mg PO Q8 PRN PRN Reason: Pain Last Admin: 12/31/17 17:06 Dose: 50 mg Vitamin B Complex/Vit C/Folic Acid (Nephro-Karolyn) 1 tab PO Q24H [facility] Last Admin: 01/01/18 10:30 Dose: 1 tab Zolpidem Tartrate (Ambien) 5 mg PO HS PRN PRN Reason: Insomnia Last Admin: 12/31/17 21:26 Dose: 5 mg - Labs Labs: 01/01/18 07:48 01/01/18 07:48 PT 17.3 SECONDS (9.7-12.2) H 12/09/17 00:22 INR 1.5 12/09/17 00:22 APTT 34 SECONDS (21-34) 12/09/17 00:22 Attending/Attestation - Attestation I have personally seen and examined this patient.: Yes I have fully participated in the care of the patient.: Yes I have reviewed all pertinent clinical information, including history, physical exam and plan: Yes Notes (Text): 01/01/18 16:19 Patient seen at bedside. Known from previous admission. This is a 72 yr old female with triple vessel CAD with prior PCI and now recommendation for CABG ( pt refusing), peripheral vascular disease, CHF, CKD, severe pulmonary hypertension, COPD, prior CVA, DVT, breast cancer s/p chemotherapy who presented to the hospital with chest pain and abdominal pain. Consider CT angiogram. She refused to talk to me this morning or let me do physical exam. Given diffuse vascular disease - component of chronic mesenteric ischemia or vascular stenosis may be present supplying the intestinal tract given multiple significant comorbidities. Patient is adamant that she does not want to perform colonoscopy/ EGD. Would recommend ongoing medical therapy and treatment of her more pressing issues with regards to her ongoing pulmonary and cardiac issues with further outpatient GI evaluation to follow. Thank you for letting us participate in the care of your patient
[2018-01-01] MEDS: Tiotropium 18 mcg Cap For Inhalation INH SCH (08:02)
[2018-01-01] MEDS: Fluticasone-Salmeterol 250-50mcg Diskus INH SCH ×2 (08:02→20:08)
[2018-01-01 08:08] LABS: ALB/GLOB RATIO 1.2 (1.0-2.1); ALBUMIN 3.5 g/dL (3.5-5.0); CALCIUM 9.5 mg/dl (8.6-10.4)
[2018-01-01] MEDS: (Novolin R) Insulin Human Regular 100 units/ml vial SC SCH ×4 (08:09→21:25)
[2018-01-01] MEDS: Ranolazine 500 mg Extended Release Tablets PO SCH ×2 (10:19→17:34)
[2018-01-01] MEDS: Pantoprazole 40 mg EC Tab PO SCH (10:19)
[2018-01-01] MEDS: Metoprolol Succinate 50 mg XL Tab PO SCH (10:29)
[2018-01-01] MEDS: Multivitamin Vitamin B Complex (Nephro-Vite) Tab PO SCH (10:30)
--- NOTE | 2018-01-01 11:02 | US ---
Exam: Abdominal ultrasound Date: 01/01/2018 Comparison: None Findings: Liver: Normal size, contour and echogenicity. No mass. No intrahepatic biliary ductal dilatation. Normal hepatopetal portal venous flow. Gallbladder: No cholelithiasis. No mural thickening. No pericholecystic fluid. Negative sonographic Mendiola's sign. Pancreas: Unremarkable spleen: Normal size, contour and echogenicity Right kidney: Normal cortical thickness and echogenicity. Length: 10.5 cm Mid renal cyst, 1.8 x 1.7 x 1.9 cm. No solid mass. No calculus or hydronephrosis. Left kidney: Length: 8.1 cm Normal cortical thickness and echogenicity upper pole simple cyst, 0.8 x 1.1 x 1.3 cm Mid renal cortical cyst, 1.3 x 1.4 x 1.4 cm No calculus or hydronephrosis. No solid mass. No evidence of abdominal aortic aneurysm. Flow demonstrated in IVC Impression: Small bilateral renal cortical cysts. No evidence of cholelithiasis or cholecystitis.
[2018-01-01] MEDS: Ergocalciferol 50,000 Intl Units Cap PO SCH (11:20)
--- NOTE | 2018-01-01 15:22 | CP.PCM.PN ---
Subjective - Date & Time of Evaluation Date of Evaluation: 01/01/18 Time of Evaluation: 15:21 - Subjective Subjective: Nephrology Consultation Note: Assessment: Stable NSTEMI, CHF/COPD exacerbation with pleural effusions/pulm congestion Acute Kidney Injury (N17.9) possibly due to CHF/cardiorenal, hemodynamic CAD with 3 vessel disease Diabetic chronic Kidney Disease (E11.22) Hypertensive Chronic Kidney Disease (I12.9) Chronic Kidney Disease (N18.3) Stage 3 with 1.7 gram proteinuria (R80.9) likely due to ETHEL, NSAIDs Anemia (D64.9), HTN (I12.9), Rt JASON 60%, PVD, CAD, CA breast renal cysts vit D def Plan No acute need for renal replacement therapy at this time. pt refusing any labs. Says NO to any blood draws. Hypertension control with meds as ordered. 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 Increased norvasc 10 mg/day Monitor Input/Output, daily weights and renal function with basic metabolic panel supplement electrolytes as needed started iron supplement, MVI and weekly Vit D continue with diuretics but as 20 mg lasix per day as serum cr on higher side getting inhalers for COPD. Dose meds/antibiotics for reduced GFR. Avoid fleets enema/magnesium based laxatives. Avoid nephrotoxins/NSAIDs/ iodinated contrast (unless needed emergently) Glycemic control Further work up/management as per primary team. pt stable for d/c from renal perspective when planned Thanks for allowing me to participate in care of your patient. Will follow patient with you. Please call if any Qs. Dr Shiraz Husain Office: [phone] reason for consult: ETHEL HPI: Pt is a 72 F with hx of diabetes Mellitus (years), hypertension (many years ), CAD s/p stent, PVD s/p iliac stent, Rt renal artery stenosis 60%, Ca breast s /p chemo presented with complaints of chest pain and SOB, managed for CHF and NSTEMI in past, reported heavy use of NSAIDs as naproxen, up to 10 tab/day for months probably has baseline CKD with cr 1.0-1.2 with intermittent AKIs ROS: She is irritable. wants to go home. denies short of breath. Denies any urinary complaint. No nausea vomiting. pain abdomen is intermittent Physical Examination: General Appearance: Comfortable, in no acute respiratory distress Vitals reviewed and noted as below Head; Atraumatic, normocephalic ENT: no ulcers no thrush. Tongue is midline. Oropharynx: no rash or ulcers. EYES: Pupils are equal, round and reactive to light accommodation. Eye muscles and extra-ocular movement intact. Sclera is anicteric. Neck; supple no lymphadenopathy, no thyromegaly or bruit Lungs: Normal respiratory rate/effort. Breath sounds bilateral clear Heart: Normal rate. s1s2 normal. No rub or gallop. Extremities: no edema. No varicose veins Neurological: Patient is Awake alert Moving all 4 extremities. No focal deficit Skin: Warm and dry. Normal turgor. No rash. Palpitation: Normal elasticity for age Abdomen: Abdomen is soft. Bowel sounds +. There is no abdominal tenderness, no guarding/rigidity no organomegaly Psych: Limited insight. Patient is often very irritable. MSK: no joint tenderness or swelling. Digits and nails normal, no deformity : kidney or bladder not palpable Labs/imaging reviewed. Past medical history, past surgical history, family history, social history, allergy reviewed and noted as below Family hx: no hx of CKD. Rest non-contributory sono jun 2017: simple cyst. previous CT showed stable complex cyst left kidney echo; moderate to severe TR SPEP/AMY neg, serum FLC assay WNL. Vit D <12.8 PTH 168 TSAT 4% Ferritin 19 Hep B and C neg Objective - Vital Signs/Intake and Output Vital Signs (last 24 hours): Temp Pulse Resp BP Pulse Ox 97.9 F 81 18 145/68 97 01/01/18 08:13 01/01/18 08:13 01/01/18 08:13 01/01/18 13:45 01/01/18 08:13 Intake and Output: 01/01/18 01/01/18 06:59 18:59 Intake Total 600 Balance 600 - Medications Medications: Current Medications Acetaminophen (Tylenol 325mg Tab) 650 mg PO Q6 PRN PRN Reason: Pain, Mild (1-3) Last Admin: 12/30/17 05:05 Dose: 650 mg Alprazolam (Xanax) 0.25 mg PO TID PRN PRN Reason: Anxiety Stop: 01/02/18 09:30 Last Admin: 12/28/17 16:53 Dose: 0.25 mg Amlodipine Besylate (Norvasc) 10 mg PO QPM [facility] Aspirin (Ecotrin) 81 mg PO DAILY [facility] Last Admin: 01/01/18 10:19 Dose: 81 mg Ergocalciferol (Drisdol 50,000 Intl Units Cap) 1 cap PO Q7D [facility] Last Admin: 01/01/18 11:20 Dose: 1 cap Famotidine (Pepcid) 20 mg PO DAILY [facility] Last Admin: 01/01/18 10:18 Dose: 20 mg Ferrous Gluconate (Fergon) 324 mg PO TID [facility] Last Admin: 01/01/18 13:44 Dose: 324 mg Furosemide (Lasix) 20 mg PO DAILY [facility] Heparin Sodium (Porcine) (Heparin) 5,000 units SC Q12 [facility] Last Admin: 01/01/18 10:16 Dose: 5,000 units Hydralazine HCl (Apresoline) 100 mg PO TID [facility] Last Admin: 01/01/18 13:44 Dose: 100 mg Insulin Human Regular (Novolin R) 0 unit SC ACHS [facility] PRN Reason: Protocol Last Admin: 01/01/18 08:09 Dose: Not Given Isosorbide Mononitrate (Imdur) 60 mg PO DAILY [facility] Last Admin: 01/01/18 10:20 Dose: 60 mg Metoprolol Succinate (Toprol Xl) 50 mg PO DAILY [facility] Last Admin: 01/01/18 10:29 Dose: 50 mg Morphine Sulfate (Morphine) 1 mg IVP Q4 PRN PRN Reason: Pain, moderate (4-7) Last Admin: 01/01/18 06:59 Dose: 1 mg Pantoprazole Sodium (Protonix Ec Tab) 40 mg PO DAILY [facility] Last Admin: 01/01/18 10:19 Dose: 40 mg Polyethylene Glycol (Miralax) 17 gm PO DAILY [facility] Ranolazine (Ranexa) 500 mg PO BID [facility] Last Admin: 01/01/18 10:19 Dose: 500 mg Fluticasone/Salmeterol (Advair Diskus 250/50) 1 puff INH RQ12 [facility] Last Admin: 01/01/18 08:02 Dose: Not Given Sitagliptin Phosphate (Januvia) 25 mg PO DAILY [facility] Last Admin: 01/01/18 10:18 Dose: 25 mg Tiotropium [place] (Spiriva) 18 mcg INH RQ24 [facility] Last Admin: 01/01/18 08:02 Dose: 18 mcg Tramadol HCl (Ultram) 50 mg PO Q8 PRN PRN Reason: Pain Last Admin: 12/31/17 17:06 Dose: 50 mg Vitamin B Complex/Vit C/Folic Acid (Nephro-Karolyn) 1 tab PO Q24H [facility] Last Admin: 01/01/18 10:30 Dose: 1 tab Zolpidem Tartrate (Ambien) 5 mg PO HS PRN PRN Reason: Insomnia Last Admin: 12/31/17 21:26 Dose: 5 mg - Labs Labs: 01/01/18 07:48 01/01/18 07:48 PT 17.3 SECONDS (9.7-12.2) H 12/09/17 00:22 INR 1.5 12/09/17 00:22 APTT 34 SECONDS (21-34) 12/09/17 00:22
--- NOTE | 2018-01-01 18:39 | PN ---
DATE: SUBJECTIVE: The patient is seen. The patient has been in better mood today. He was visited by his friend, Guido, who is helping her with all the paper works for Medicaid. The patient is still getting morphine p.r.n., but seems to be in better mood. The patient is now more amenable that her friend has been helping her and looking forward to go home with some home care services. She was asking if she will go for subacute rehab, but the patient has no subacute days. She has been getting physical therapy in the hospital. PHYSICAL EXAMINATION: VITAL SIGNS: Temperature is 97.8, pulse rate 81, blood pressure is 145/68, respirations 18, oxygen saturation is 97%. REVIEW OF SYSTEMS: GENERAL: The patient is alert, verbal, less irritable, seen in her room with her friend, Guido. SKIN: No diaphoresis. HEENT: Still hard of hearing. NECK: Supple. RESPIRATORY: No dyspnea. CARDIOVASCULAR: No chest pain. GASTROINTESTINAL: She is eating better. EXTREMITIES: The patient is moving extremities, but with unsteady gait. MUSCULOSKELETAL: Has back pain. NEUROLOGIC: Alert and oriented x3 with periods of forgetfulness. GENITOURINARY: No dysuria. MENTAL STATUS EXAMINATION: Elderly female who looks stated age, alert and oriented x3, still forgetful, less irritable, in a better mood today. Affect is reactive. Speech is spontaneous. Thought process, forgetful. Thought content, no psychosis. No suicidal or homicidal ideation. The patient states she has been getting physical therapy in the hospital. She is less persistent to go home. The patient is happy that her friend, Guido is helping her apply for Medicaid. No psychosis. No suicidal or homicidal ideation. Attention and memory seem to be limited. Insight and judgement limited. Impulse control is fair at this time. IMPRESSION: History of delirium, metabolic encephalopathy secondary to exacerbation of chronic obstructive pulmonary disease, debility, history of dementia with mood changes. PLAN AND RECOMMENDATIONS: The patient is seen, meds reviewed. Continue present management. Continue treatment plan. Continue psych meds as ordered. The patient may have morphine p.r.n. as needed. Demetrius Burdick MD [facility] # [id number]
[2018-01-02] MEDS: Morphine 4 MG/ML VIAL IVP PRN ×4 (04:53→20:24)
--- NOTE | 2018-01-02 05:47 | PN ---
DATE: SUBJECTIVE: She is lying comfortably in bed, slept very well. She was going to go for the CAT scan of the abdomen and pelvis and then decided not to do it because her elbow got caught in the machine. She has some excuse. Ultrasound of the abdomen and pelvis, still presenting with right-sided abdominal pain. She is on Advair, Ambien, Apresoline, Drisdol, Ecotrin, Fergon, heparin, Imdur, Januvia, Lasix, morphine p.r.n., Nephro-Karolyn, Norvasc, Novolin, Pepcid AC, Protonix, Ranexa, Spiriva, Toprol, Tylenol, Ultram, and Xanax. PHYSICAL EXAMINATION: VITAL SIGNS: She has a 98 temp, 68 pulse, 152/62 blood pressure, 20 respiratory rate, and 100% O2 saturation on 2 liters nasal cannula. HEENT: Head is atraumatic, normocephalic. HEART: Regular rate. LUNGS: Decreased breath sounds, but clear. ABDOMEN: Soft. Positive bowel sounds. No guarding, no rebound. No CVA tenderness. The patient was comfortable on the right side. EXTREMITIES: No edema. She had a lab test on the 12/20/2017 and she did okay. Her last blood sugar was 92 today. She has been seen by Renal and Psychiatry. Still waiting for 24-hour care as she was discharged today with an ultrasound of the abdomen and pelvis. She wants to go home. I do not know if she is stable enough. She has 24-hour help and we will see the social media strategist and insurance company together. We will try and check her labs again. We will do an ultrasound of the abdomen and pelvis. Hopefully, this will get a result. She has had multiple issues. She has critical coronary artery disease, non-ST elevation myocardial infarction, congestive heart failure, chronic obstructive pulmonary disease, pleural effusions, acute kidney injury, diabetic chronic kidney disease, hypertension, chronic renal disease. Continue aggressive treatment and care with social service liaison and insurance company to arrange a safe discharge. John Brown DO [facility] # [id number]
[2018-01-02 06:17] LABS: HEMOGLOBIN 10.8 g/dL (11.0-16.0); MEAN CELL VOLUME 81.7 fL (81.0-99.0); MEAN CORPUSCULAR HEMOGLOBIN 27.2 pg (27.0-31.0); MEAN CORPUSCULAR HGB CONC 33.3 g/dL (33.0-37.0); MEAN PLATELET VOLUME 8.7 fL (7.2-11.7); RBC 3.95 Mil/uL (3.80-5.20); RED CELL DISTRIBUTION WIDTH 24.9 % (11.5-14.5); WHITE BLOOD COUNT 5.8 K/uL (4.8-10.8)
[2018-01-02 06:38] LABS: ALB/GLOB RATIO 1.3 (1.0-2.1); ALBUMIN 3.3 g/dL (3.5-5.0); ALT/SGPT < 6 U/L (9-52); AST/SGOT 15 U/L (14-36); BLOOD UREA NITROGEN 38 mg/dL (7-17); CALCIUM 8.8 mg/dl (8.6-10.4); GFR AFRICAN-AMERICAN 45; GFR NON-AFRICAN AMERICAN 37
[2018-01-02] MEDS: Tiotropium 18 mcg Cap For Inhalation INH SCH (07:30)
[2018-01-02] MEDS: Fluticasone-Salmeterol 250-50mcg Diskus INH SCH (07:51)
[2018-01-02] MEDS: (Novolin R) Insulin Human Regular 100 units/ml vial SC SCH ×4 (08:19→22:47)
[2018-01-02] MEDS: Multivitamin Vitamin B Complex (Nephro-Vite) Tab PO SCH ×2 (08:42→09:45)
[2018-01-02] MEDS: Metoprolol Succinate 50 mg XL Tab PO SCH (09:44)
[2018-01-02] MEDS: Ranolazine 500 mg Extended Release Tablets PO SCH ×2 (09:45→18:05)
[2018-01-02] MEDS: Pantoprazole 40 mg EC Tab PO SCH (09:47)
[2018-01-02] MEDS: POLYETHYLENE GLYCOL 3350 17 GM/Dose PACKET PO SCH (09:49)
--- NOTE | 2018-01-02 12:36 | PN ---
DATE: SUBJECTIVE: I saw her resting comfortably in bed. She is very much in a good mood this morning. She states she walked out of bed and worked with physical therapy as well Social Security and Medicaid people trying to get that organized paperwork. She was seen by Renal and Psychiatry. Her abdominal ultrasound is okay. PHYSICAL EXAMINATION: VITAL SIGNS: 98.7 temp, 72 pulse, 174/70 blood pressure, 20 respiratory rate, and 94% O2 saturation on 2 L nasal cannula. HEENT: Head is atraumatic, normocephalic. GENERAL: Alert and oriented. She is in a very good mood today. HEART: Regular rate. LUNGS: Decreased breath sounds, but clear. ABDOMEN: Soft. EXTREMITIES: No edema. LABORATORY DATA: She did have some blood work today. She has 143 sodium, potassium of 4.8, BUN of 31, creatinine 1.5,discussed with Renal. She might need IV fluids. GFR is 34. Sugar is 101, calcium is 9.5, total bilirubin is 0.6, AST is 15, ALT is 11, alk phos is 121, total protein is 6.6, white count 6.9, hemoglobin 12.1, hematocrit 36.3, platelets are 227. She is currently on Advair, Ambien, Apresoline, Drisdol, Ecotrin, Fergon, heparin, Imdur, Januvia, Lasix, MiraLax, morphine, Nephro-Karolyn, Norvasc, Novolin, Pepcid, Protonix, Ranexa, Spiriva, Toprol, Tylenol, Ultram on hold right now. I will check labs tomorrow and encouraged to Renal to add to her acute kidney injury. She is actually in a better mood. She needs to be watched 24 hours as per Psychiatry. John Brown DO [facility]
--- NOTE | 2018-01-02 13:12 | PN ---
DATE: SUBJECTIVE: The patient is seen today, crying, still irritable, stating she misses her two pets. The patient showed to this doctor her pet dog, has a pet cat which she misses. The patient still awaiting completion of Medicaid. She later apologized for her behavior. The patient used to take Xanax p.r.n., but according to nurse does not really have much effect on her and more of her behavior is her personality. So, we will keep the patient off the Xanax p.r.n. and we will keep her off psych meds for now, but continue the morphine p.r.n. as ordered. PHYSICAL EXAMINATION: VITAL SIGNS: Temperature is 97.9, pulse is 75, blood pressure 164/79, respirations 20, oxygen saturations 100%. REVIEW OF SYSTEMS: GENERAL: The patient is alert, verbal, irritable, screaming, then crying, verbally abusive. She states that she misses her two pets. She just wants to go home. SKIN: No diaphoresis. HEENT: Still hard of hearing. No headaches. NECK: Supple. RESPIRATORY: No dyspnea. CARDIOVASCULAR: No chest pain. GASTROINTESTINAL: The patient's p.o. intake is variable, she is very picky about the food. EXTREMITIES: Gait is unsteady. MUSCULOSKELETAL: Feels weak. The patient has been receiving physical therapy while in the hospital. NEURO: Alert, forgetful, oriented x2 when seen. MENTAL STATUS EXAMINATION: Elderly female, who looks stated age, oriented x2. She is very irritable, [place], and verbally abusive at times, stating that she wants to go home. Affect is reactive. Speech spontaneous. The patient is screaming off and on. Thought process, forgetful. Thought content, the patient wants to go home. She states that she misses her pet dog and pet cat. No paranoia, no hallucination. Attention and memory seems to be limited. Insight and judgment limited. Impulse control is guarded at this time. IMPRESSION: History of delirium, metabolic encephalopathy, history of chronic obstructive pulmonary disease, history of congestive heart failure, gait dysfunction. PLAN AND RECOMMENDATIONS: The patient is seen, meds reviewed. Continue present management. The patient awaiting completion of Medicaid to get some services at home. The patient still unsafe to be discharged to home alone. Continue treatment plan as outlined. Demetrius Burdick MD
--- NOTE | 2018-01-02 16:45 | CP.PCM.PN ---
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 Hypertension control with meds as ordered. 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 Increased norvasc 10 mg/day Monitor Input/Output, daily weights and renal function with basic metabolic panel supplement electrolytes as needed started iron supplement, MVI and weekly Vit D continue with diuretics but as 20 mg lasix per day as serum cr on higher side getting inhalers for COPD. Dose meds/antibiotics for reduced GFR. Avoid fleets enema/magnesium based laxatives. Avoid nephrotoxins/NSAIDs/ iodinated contrast (unless needed emergently) Glycemic control Further work up/management as per primary team. pt stable for d/c from renal perspective when planned Thanks for allowing me to participate in care of your patient. Will follow patient with you. Please call if any Qs. Dr Shiraz Husain Office: [phone] reason for consult: ETHEL HPI: Pt is a 72 F with hx of diabetes Mellitus (years), hypertension (many years ), CAD s/p stent, PVD s/p iliac stent, Rt renal artery stenosis 60%, Ca breast s /p chemo presented with complaints of chest pain and SOB, managed for CHF and NSTEMI in past, reported heavy use of NSAIDs as naproxen, up to 10 tab/day for months probably has baseline CKD with cr 1.0-1.2 with intermittent AKIs ROS: She is irritable. wants to go home. denies short of breath. Denies any urinary complaint. No nausea vomiting. pain abdomen is intermittent Physical Examination: General Appearance: Comfortable, in no acute respiratory distress Vitals reviewed and noted as below Head; Atraumatic, normocephalic ENT: no ulcers no thrush. Tongue is midline. Oropharynx: no rash or ulcers. EYES: Pupils are equal, round and reactive to light accommodation. Eye muscles and extra-ocular movement intact. Sclera is anicteric. Neck; supple no lymphadenopathy, no thyromegaly or bruit Lungs: Normal respiratory rate/effort. Breath sounds bilateral clear Heart: Normal rate. s1s2 normal. No rub or gallop. Extremities: no edema. No varicose veins Neurological: Patient is Awake alert Moving all 4 extremities. No focal deficit Skin: Warm and dry. Normal turgor. No rash. Palpitation: Normal elasticity for age Abdomen: Abdomen is soft. Bowel sounds +. There is no abdominal tenderness, no guarding/rigidity no organomegaly Psych: Limited insight. Patient is often very irritable. MSK: no joint tenderness or swelling. Digits and nails normal, no deformity : kidney or bladder not palpable Labs/imaging reviewed. Past medical history, past surgical history, family history, social history, allergy reviewed and noted as below Family hx: no hx of CKD. Rest non-contributory sono jun 2017: simple cyst. previous CT showed stable complex cyst left kidney echo; moderate to severe TR SPEP/AMY neg, serum FLC assay WNL. Vit D <12.8 PTH 168 TSAT 4% Ferritin 19 Hep B and C neg Objective - Vital Signs/Intake and Output Vital Signs (last 24 hours): Temp Pulse Resp BP Pulse Ox 98.5 F 80 20 153/68 H 99 01/02/18 14:57 01/02/18 14:57 01/02/18 14:57 01/02/18 14:57 01/02/18 14:57 Intake and Output: 01/02/18 01/02/18 06:59 18:59 Intake Total 620 Balance 620 - Medications Medications: Current Medications Acetaminophen (Tylenol 325mg Tab) 650 mg PO Q6 PRN PRN Reason: Pain, Mild (1-3) Last Admin: 12/30/17 05:05 Dose: 650 mg Amlodipine Besylate (Norvasc) 10 mg PO QPM [facility] Last Admin: 01/01/18 17:34 Dose: 10 mg Aspirin (Ecotrin) 81 mg PO DAILY [facility] Last Admin: 01/02/18 09:45 Dose: 81 mg Ergocalciferol (Drisdol 50,000 Intl Units Cap) 1 cap PO Q7D [facility] Last Admin: 01/01/18 11:20 Dose: 1 cap Famotidine (Pepcid) 20 mg PO DAILY [facility] Last Admin: 01/02/18 09:45 Dose: 20 mg Ferrous Gluconate (Fergon) 324 mg PO TID [facility] Last Admin: 01/02/18 14:53 Dose: 324 mg Furosemide (Lasix) 20 mg PO DAILY [facility] Last Admin: 01/02/18 09:47 Dose: 20 mg Heparin Sodium (Porcine) (Heparin) 5,000 units SC Q12 [facility] Last Admin: 01/02/18 09:54 Dose: Not Given Hydralazine HCl (Apresoline) 100 mg PO TID [facility] Last Admin: 01/02/18 14:52 Dose: 100 mg Insulin Human Regular (Novolin R) 0 unit SC ACHS [facility] PRN Reason: Protocol Last Admin: 01/02/18 11:44 Dose: Not Given Isosorbide Mononitrate (Imdur) 60 mg PO DAILY [facility] Last Admin: 01/02/18 09:47 Dose: 60 mg Metoprolol Succinate (Toprol Xl) 50 mg PO DAILY [facility] Last Admin: 01/02/18 09:44 Dose: 50 mg Morphine Sulfate (Morphine) 1 mg IVP Q4 PRN PRN Reason: Pain, moderate (4-7) Last Admin: 01/02/18 14:48 Dose: 1 mg Pantoprazole Sodium (Protonix Ec Tab) 40 mg PO DAILY [facility] Last Admin: 01/02/18 09:47 Dose: 40 mg Polyethylene Glycol (Miralax) 17 gm PO DAILY [facility] Last Admin: 01/02/18 09:49 Dose: Not Given Ranolazine (Ranexa) 500 mg PO BID [facility] Last Admin: 01/02/18 09:45 Dose: 500 mg Fluticasone/Salmeterol (Advair Diskus 250/50) 1 puff INH RQ12 [facility] Last Admin: 01/02/18 07:51 Dose: Not Given Sitagliptin Phosphate (Januvia) 25 mg PO DAILY [facility] Last Admin: 01/02/18 09:44 Dose: 25 mg Tiotropium [place] (Spiriva) 18 mcg INH RQ24 [facility] Last Admin: 01/02/18 07:30 Dose: 18 mcg Vitamin B Complex/Vit C/Folic Acid (Nephro-Karolyn) 1 tab PO Q24H [facility] Last Admin: 01/02/18 09:45 Dose: 1 tab Zolpidem Tartrate (Ambien) 5 mg PO HS PRN PRN Reason: Insomnia Last Admin: 01/01/18 21:23 Dose: 5 mg - Labs Labs: 01/02/18 06:08 01/02/18 06:08 PT 17.3 SECONDS (9.7-12.2) H 12/09/17 00:22 INR 1.5 12/09/17 00:22 APTT 34 SECONDS (21-34) 12/09/17 00:22
[2018-01-02] MEDS ORDERED: Bisacodyl 5mg EC Tab PO ONE (19:59)
[2018-01-03] MEDS: Morphine 4 MG/ML VIAL IVP PRN ×3 (01:12→15:59)
[2018-01-03] MEDS: Fluticasone-Salmeterol 250-50mcg Diskus INH SCH (07:51)
[2018-01-03] MEDS: Tiotropium 18 mcg Cap For Inhalation INH SCH (07:51)
[2018-01-03] MEDS: (Novolin R) Insulin Human Regular 100 units/ml vial SC SCH ×4 (08:28→22:08)
[2018-01-03] MEDS: Pantoprazole 40 mg EC Tab PO SCH (09:49)
[2018-01-03] MEDS: Metoprolol Succinate 50 mg XL Tab PO SCH (09:49)
[2018-01-03] MEDS: Ranolazine 500 mg Extended Release Tablets PO SCH ×2 (09:50→18:08)
[2018-01-03] MEDS: Multivitamin Vitamin B Complex (Nephro-Vite) Tab PO SCH (09:50)
[2018-01-03] MEDS: POLYETHYLENE GLYCOL 3350 17 GM/Dose PACKET PO SCH (10:00)
--- NOTE | 2018-01-03 10:10 | CP.PCM.PN ---
Subjective - Date & Time of Evaluation Date of Evaluation: 01/03/18 Time of Evaluation: 10:08 - Subjective Subjective: Patient in bed no significant changes reported Appear to be stable Objective - Vital Signs/Intake and Output Vital Signs (last 24 hours): Temp Pulse Resp BP Pulse Ox 98 F 69 20 172/67 H 95 01/03/18 07:00 01/03/18 07:00 01/03/18 07:00 01/03/18 09:50 01/03/18 07:00 Intake and Output: 01/03/18 01/03/18 06:59 18:59 Intake Total 500 Balance 500 - Medications Medications: Current Medications Acetaminophen (Tylenol 325mg Tab) 650 mg PO Q6 PRN PRN Reason: Pain, Mild (1-3) Last Admin: 01/03/18 04:57 Dose: 650 mg Amlodipine Besylate (Norvasc) 10 mg PO QPM [facility] Last Admin: 01/02/18 18:05 Dose: Not Given Aspirin (Ecotrin) 81 mg PO DAILY [facility] Last Admin: 01/03/18 09:50 Dose: 81 mg Ergocalciferol (Drisdol 50,000 Intl Units Cap) 1 cap PO Q7D [facility] Last Admin: 01/01/18 11:20 Dose: 1 cap Famotidine (Pepcid) 20 mg PO DAILY [facility] Last Admin: 01/03/18 09:49 Dose: 20 mg Ferrous Gluconate (Fergon) 324 mg PO TID [facility] Last Admin: 01/03/18 09:50 Dose: 324 mg Furosemide (Lasix) 20 mg PO DAILY [facility] Last Admin: 01/03/18 09:50 Dose: 20 mg Heparin Sodium (Porcine) (Heparin) 5,000 units SC Q12 [facility] Last Admin: 01/03/18 09:51 Dose: 5,000 units Hydralazine HCl (Apresoline) 100 mg PO TID [facility] Last Admin: 01/03/18 09:55 Dose: 100 mg Insulin Human Regular (Novolin R) 0 unit SC ACHS [facility] PRN Reason: Protocol Last Admin: 01/03/18 08:28 Dose: Not Given Isosorbide Mononitrate (Imdur) 60 mg PO DAILY [facility] Last Admin: 01/03/18 09:51 Dose: 60 mg Metoprolol Succinate (Toprol Xl) 50 mg PO DAILY [facility] Last Admin: 01/03/18 09:49 Dose: 50 mg Morphine Sulfate (Morphine) 1 mg IVP Q4 PRN PRN Reason: Pain, moderate (4-7) Last Admin: 01/03/18 06:56 Dose: 1 mg Pantoprazole Sodium (Protonix Ec Tab) 40 mg PO DAILY [facility] Last Admin: 01/03/18 09:49 Dose: 40 mg Polyethylene Glycol (Miralax) 17 gm PO DAILY [facility] Last Admin: 01/03/18 10:00 Dose: 17 gm Ranolazine (Ranexa) 500 mg PO BID [facility] Last Admin: 01/03/18 09:50 Dose: 500 mg Fluticasone/Salmeterol (Advair Diskus 250/50) 1 puff INH RQ12 [facility] Last Admin: 01/03/18 07:51 Dose: Not Given Sitagliptin Phosphate (Januvia) 25 mg PO DAILY [facility] Last Admin: 01/03/18 09:51 Dose: 25 mg Tiotropium [place] (Spiriva) 18 mcg INH RQ24 [facility] Last Admin: 01/03/18 07:51 Dose: 18 mcg Vitamin B Complex/Vit C/Folic Acid (Nephro-Karolyn) 1 tab PO Q24H [facility] Last Admin: 01/03/18 09:50 Dose: 1 tab Zolpidem Tartrate (Ambien) 5 mg PO HS PRN PRN Reason: Insomnia Last Admin: 01/01/18 21:23 Dose: 5 mg - Labs Labs: 01/02/18 06:08 01/02/18 06:08 PT 17.3 SECONDS (9.7-12.2) H 12/09/17 00:22 INR 1.5 12/09/17 00:22 APTT 34 SECONDS (21-34) 12/09/17 00:22 - Constitutional Appears: No Acute Distress - ENT Exam ENT Exam: Mucous Membranes Moist - Respiratory Exam Respiratory Exam: absent: Chest Wall Tenderness - GI/Abdominal Exam GI & Abdominal Exam: Soft, Normal Bowel Sounds - Extremities Exam Extremities Exam: absent: Calf Tenderness - Back Exam Back Exam: absent: CVA tenderness (L), CVA tenderness (R) - Neurological Exam Neurological Exam: Awake - Psychiatric Exam Psychiatric exam: Normal Affect - Skin Skin Exam: absent: Cyanosis Assessment and Plan (1) Non-ST elevated myocardial infarction (non-STEMI) Status: Acute - Assessment and Plan (Free Text) Assessment: NSTEMI, CHF/COPD exacerbation with pleural effusions/pulm congestion Acute Kidney Injury (N17.9) possibly due to CHF/cardiorenal, 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 Increased norvasc 10 mg/day Monitor Input/Output, daily weights and renal function with basic metabolic panel supplement electrolytes as needed started iron supplement, MVI and weekly Vit D continue with diuretics but as 20 mg lasix per day as serum cr on higher side getting inhalers for COPD.
--- NOTE | 2018-01-03 10:38 | PN ---
DATE: SUBJECTIVE: The patient is sitting up in bed. She is telling she is constipated, was seen for her constipation. She wants suppository, I will get her Dulcolax suppository to try. Otherwise, she is about the same. No new changes. She is on Advair, Ambien, Apresoline. She is on Dulcolax now. Ecotrin, Fergon, heparin, Imdur, Januvia, Lasix, MiraLax, warfarin as needed, Norvasc, Novolin, Pepcid, Ranexa, Spiriva, Toprol, and Tylenol. PHYSICAL EXAMINATION: VITAL SIGNS: She has a 98.5 temp, 80 pulse, 153/68 blood pressure, 20 respiratory rate, 99% O2 saturation on 2 liters. GENERAL: She is alert and comfortable. She slept fairly well. She is eating. HEENT: Head is atraumatic, normocephalic. HEART: Regular rate. LUNGS: Decreased breath sounds bilaterally. ABDOMEN: Soft. May be decreased bowel sounds, but no guarding or rebound. CVA tenderness today. EXTREMITIES: No edema. LABORATORY DATA: Last lab was on 01/02/2018, white count is 5.8, hemoglobin 10.8, hematocrit 32.2, platelets 211. Also on 01/02/2018, she has 140 sodium, potassium 3.9, BUN 38, creatinine 1.4, GFR is 37, blood sugar was 132. AST 15, ALT less than 6, alkaline phosphatase level is 42, total protein is 5.9. ASSESSMENT AND PLAN: Awaiting for Insurance and Case Management to help us find a safe discharge for her. She has been seen by Renal. She is having congestive heart failure, chronic obstructive pulmonary disease exacerbation, acute kidney injury, but she is very stable right now. She is also being seen by Psychiatry and Gastrointestinal. Waiting for home services to be put in place for her and she is still unsafe to be discharged home alone as per Psychiatry. John Brown DO
--- NOTE | 2018-01-03 11:25 | US ---
Exam: Pelvic ultrasound Date: 01/01/2018 Comparison: None Technique: Transabdominal only Findings: Examination grossly limited. Poorly distended urinary bladder. Transabdominal technique only. Uterus and ovaries could not be adequately visualized. No pelvic mass identified. No evidence of ascites. Please note that the patient refused transvaginal examination at this time. Impression: Grossly limited examination. Could not adequately identify uterus and ovaries. Recommend transvaginal ultrasound examination when clinically feasible. MTDD
--- NOTE | 2018-01-03 17:18 | PN ---
DATE: SUBJECTIVE: The patient is seen. The patient is in a better mood today. She was eating her lunch. Yesterday, complained about going home. The patient is more cooperative. The patient is aware that she is waiting for the completion of her Medicaid prior to discharge. Other than that, no behavioral problems noted. PHYSICAL EXAMINATION: VITAL SIGNS: Temperature is 98, pulse is 69, blood pressure is 172/67, respirations 20, oxygen saturations 95%. REVIEW OF SYSTEMS: GENERAL: The patient is alert, verbal, forgetful at times, but more cooperative today. No behavioral problems noted. SKIN: No diaphoresis. HEENT: The patient is hard of hearing. No headache. NECK: Supple. RESPIRATORY: No dyspnea. CARDIOVASCULAR: No chest pain. GASTROINTESTINAL: She is eating better. EXTREMITIES: The patient is receiving physical therapy, but her gait is unsteady. NEURO: Alert with periods of forgetfulness. GENITOURINARY: No dysuria. MENTAL STATUS EXAMINATION: Elderly female, who looks stated age, mood is still irritable, but feeling much better. Affect is reactive. Speech is spontaneous. Thought process, forgetful. Thought content, less preoccupied about going home. She knows that she is waiting for Medicaid to be approved. Her friend, Guido, has been helping her get the papers. No psychosis. No suicidal or homicidal ideation. Attention and memory seems to be limited. Insight and judgment limited. Impulse control is fair at this time. IMPRESSION: History of delirium, metabolic encephalopathy secondary to congestive heart failure as well as history of dementia. PLAN AND RECOMMENDATIONS: The patient is seen, meds reviewed. Continue present management. Right now, the patient is off any psych meds. She was taking Xanax before, but it was not helping her. The patient takes morphine 1 mg every 4 hours p.r.n. for pain. The patient is awaiting as stated completion of her Medicaid application. Demetrius Burdick MD
[2018-01-04] MEDS: Morphine 4 MG/ML VIAL IVP PRN ×3 (05:12→17:59)
[2018-01-04] MEDS: Fluticasone-Salmeterol 250-50mcg Diskus INH SCH ×2 (07:34→19:32)
[2018-01-04] MEDS: Tiotropium 18 mcg Cap For Inhalation INH SCH (07:35)
[2018-01-04] MEDS: Multivitamin Vitamin B Complex (Nephro-Vite) Tab PO SCH (08:33)
[2018-01-04] MEDS: (Novolin R) Insulin Human Regular 100 units/ml vial SC SCH ×4 (08:37→22:00)
[2018-01-04] MEDS: Metoprolol Succinate 50 mg XL Tab PO SCH (10:33)
[2018-01-04] MEDS: Ranolazine 500 mg Extended Release Tablets PO SCH ×2 (10:33→17:19)
[2018-01-04] MEDS: Pantoprazole 40 mg EC Tab PO SCH (10:33)
[2018-01-04] MEDS: POLYETHYLENE GLYCOL 3350 17 GM/Dose PACKET PO SCH ×2 (10:33→10:38)
--- NOTE | 2018-01-04 13:19 | CP.PCM.PN ---
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 Hypertension control with meds as ordered. 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 Increased norvasc 10 mg/day Monitor Input/Output, daily weights and renal function with basic metabolic panel supplement electrolytes as needed started iron supplement, MVI and weekly Vit D continue with diuretics but as 20 mg lasix per day as serum cr on higher side getting inhalers for COPD. Dose meds/antibiotics for reduced GFR. Avoid fleets enema/magnesium based laxatives. Avoid nephrotoxins/NSAIDs/ iodinated contrast (unless needed emergently) Glycemic control Further work up/management as per primary team. pt stable for d/c from renal perspective when planned Thanks for allowing me to participate in care of your patient. Will follow patient with you. Please call if any Qs. Dr Shiraz Husain Office: [phone] reason for consult: ETHEL HPI: Pt is a 72 F with hx of diabetes Mellitus (years), hypertension (many years ), CAD s/p stent, PVD s/p iliac stent, Rt renal artery stenosis 60%, Ca breast s /p chemo presented with complaints of chest pain and SOB, managed for CHF and NSTEMI in past, reported heavy use of NSAIDs as naproxen, up to 10 tab/day for months probably has baseline CKD with cr 1.0-1.2 with intermittent AKIs ROS: She is irritable. wants to go home. denies short of breath. Denies any urinary complaint. No nausea vomiting. pain abdomen is intermittent Physical Examination: General Appearance: Comfortable, in no acute respiratory distress Vitals reviewed and noted as below Head; Atraumatic, normocephalic ENT: no ulcers no thrush. Tongue is midline. Oropharynx: no rash or ulcers. EYES: Pupils are equal, round and reactive to light accommodation. Eye muscles and extra-ocular movement intact. Sclera is anicteric. Neck; supple no lymphadenopathy, no thyromegaly or bruit Lungs: Normal respiratory rate/effort. Breath sounds bilateral clear Heart: Normal rate. s1s2 normal. No rub or gallop. Extremities: no edema. No varicose veins Neurological: Patient is Awake alert Moving all 4 extremities. No focal deficit Skin: Warm and dry. Normal turgor. No rash. Palpitation: Normal elasticity for age Abdomen: Abdomen is soft. Bowel sounds +. There is no abdominal tenderness, no guarding/rigidity no organomegaly Psych: Limited insight. Patient is often very irritable. MSK: no joint tenderness or swelling. Digits and nails normal, no deformity : kidney or bladder not palpable Labs/imaging reviewed. Past medical history, past surgical history, family history, social history, allergy reviewed and noted as below Family hx: no hx of CKD. Rest non-contributory sono jun 2017: simple cyst. previous CT showed stable complex cyst left kidney echo; moderate to severe TR SPEP/AMY neg, serum FLC assay WNL. Vit D <12.8 PTH 168 TSAT 4% Ferritin 19 Hep B and C neg Objective - Vital Signs/Intake and Output Vital Signs (last 24 hours): Temp Pulse Resp BP Pulse Ox 98.3 F 73 20 169/69 H 100 01/04/18 10:25 01/04/18 10:25 01/04/18 10:25 01/04/18 10:33 01/04/18 10:25 Intake and Output: 01/04/18 01/04/18 06:59 18:59 Intake Total 600 Output Total 450 Balance 150 - Medications Medications: Current Medications Acetaminophen (Tylenol 325mg Tab) 650 mg PO Q6 PRN PRN Reason: Pain, Mild (1-3) Last Admin: 01/03/18 04:57 Dose: 650 mg Amlodipine Besylate (Norvasc) 10 mg PO QPM [facility] Last Admin: 01/03/18 18:08 Dose: 10 mg Aspirin (Ecotrin) 81 mg PO DAILY [facility] Last Admin: 01/04/18 10:33 Dose: 81 mg Ergocalciferol (Drisdol 50,000 Intl Units Cap) 1 cap PO Q7D [facility] Last Admin: 01/01/18 11:20 Dose: 1 cap Famotidine (Pepcid) 20 mg PO DAILY [facility] Last Admin: 01/04/18 10:33 Dose: 20 mg Ferrous Gluconate (Fergon) 324 mg PO TID [facility] Last Admin: 01/04/18 10:33 Dose: 324 mg Furosemide (Lasix) 20 mg PO DAILY [facility] Last Admin: 01/04/18 10:33 Dose: 20 mg Heparin Sodium (Porcine) (Heparin) 5,000 units SC Q12 [facility] Last Admin: 01/04/18 10:38 Dose: Not Given Hydralazine HCl (Apresoline) 100 mg PO TID [facility] Last Admin: 01/04/18 10:33 Dose: 100 mg Insulin Human Regular (Novolin R) 0 unit SC ACHS [facility] PRN Reason: Protocol Last Admin: 01/04/18 08:37 Dose: Not Given Isosorbide Mononitrate (Imdur) 60 mg PO DAILY [facility] Last Admin: 01/04/18 10:33 Dose: 60 mg Metoprolol Succinate (Toprol Xl) 50 mg PO DAILY [facility] Last Admin: 01/04/18 10:33 Dose: 50 mg Morphine Sulfate (Morphine) 1 mg IVP Q4 PRN PRN Reason: Pain, moderate (4-7) Last Admin: 01/04/18 05:12 Dose: 1 mg Pantoprazole Sodium (Protonix Ec Tab) 40 mg PO DAILY [facility] Last Admin: 01/04/18 10:33 Dose: 40 mg Polyethylene Glycol (Miralax) 17 gm PO DAILY [facility] Last Admin: 01/04/18 10:38 Dose: Not Given Ranolazine (Ranexa) 500 mg PO BID [facility] Last Admin: 01/04/18 10:33 Dose: 500 mg Fluticasone/Salmeterol (Advair Diskus 250/50) 1 puff INH RQ12 [facility] Last Admin: 01/04/18 07:34 Dose: Not Given Sitagliptin Phosphate (Januvia) 25 mg PO DAILY [facility] Last Admin: 01/03/18 09:51 Dose: 25 mg Tiotropium [place] (Spiriva) 18 mcg INH RQ24 [facility] Last Admin: 01/04/18 07:35 Dose: Not Given Vitamin B Complex/Vit C/Folic Acid (Nephro-Karolyn) 1 tab PO Q24H [facility] Last Admin: 01/04/18 08:33 Dose: 1 tab Zolpidem Tartrate (Ambien) 5 mg PO HS PRN PRN Reason: Insomnia Last Admin: 01/03/18 21:05 Dose: 5 mg - Labs Labs: 01/02/18 06:08 01/02/18 06:08 PT 17.3 SECONDS (9.7-12.2) H 12/09/17 00:22 INR 1.5 12/09/17 00:22 APTT 34 SECONDS (21-34) 12/09/17 00:22
--- NOTE | 2018-01-05 00:18 | PN ---
DATE: SUBJECTIVE: The patient seen. The patient is back to her very irritable, self cursing profanities, and stating that she just wants to go home to see her pet dog and cat. The patient states she does not want to be seen by the doctor, stating I am keeping her in the hospital. The patient still needs 24-hour care. Her mood is still labile at times and most of it is related to personality. Then, after a while, the patient calmed down and apologized, still asking her morphine p.r.n., and told that she needs to wait for the result of her Medicaid application. PHYSICAL EXAMINATION: VITAL SIGNS: Temperature is 98.3, pulse 79, blood pressure 163/66, respirations 20, oxygen saturation 100%. REVIEW OF SYSTEMS: GENERAL: The patient is alert, verbal, very irritable, verbally abusive, angry that she is in the hospital but not in acute respiratory distress. SKIN: No diaphoresis. HEENT: No headache, no dizziness. No hard of hearing. NECK: Supple. RESPIRATORY: No dyspnea. CARDIOVASCULAR: No chest pain. GASTROINTESTINAL: She is eating well. EXTREMITIES: The patient is moving extremities. Steady gait. MUSCULOSKELETAL: Feels weak. NEUROLOGIC: Alert with periods of confusion. GENITOURINARY: No dysuria. Last night, the patient took Ambien to help her sleep, and she is also taking warfarin 1 mg every 4 hours p.r.n. MENTAL STATUS EXAMINATION: Elderly female, looks her age. Alert and oriented x3, very irritable, [place]. Affect is reactive. Speech is spontaneous. Thought process forgetful. Thought content, still wants to go home today. She was been screaming, stating that she needs to see her pet dog and pet cat. The patient is telling that she can take care of herself alone, although she has respiratory problem. The patient has gone home and came back to hospital 2 hours later, because she cannot breathe. As stated, no psychosis, no suicidal or homicidal ideation. Attention and memory seems to be limited. Insight and judgment limited. Impulse control is fair at this time. IMPRESSION: History of delirium, metabolic encephalopathy, depression, as well as dementia with mood changes. PLAN AND RECOMMENDATIONS: The patient is seen, meds reviewed. Continue Ambien p.r.n. as ordered, morphine p.r.n. The patient is still awaiting completion of Medicaid for possible help at home, but at this point, the patient is unsafe to be discharged and needs 24-hour care. Demetrius Burdick MD KENNET[facility]
[2018-01-05] MEDS: Morphine 4 MG/ML VIAL IVP PRN ×4 (05:23→20:32)
--- NOTE | 2018-01-05 07:31 | PN ---
DATE: SUBJECTIVE: I saw her resting comfortably in bed. She slept very well. She is getting physical therapy. She is eat well. She is upset that she wants to go home. MEDICATIONS: She Advair, Ambien, Apresoline, Drisdol, Ecotrin, Fergon, heparin, Imdur, Januvia, Lasix, MiraLax, warfarin, Nephro-Karolyn, Norvasc, Novolin, Pepcid, Protonix, Ranexa, Spiriva, Toprol, and Tylenol. PHYSICAL EXAMINATION: VITAL SIGNS: She has a 98.2 temp, 70 pulse, 157/77 blood pressure, 20 respiratory rate, O2 sat on 2 L nasal cannula. HEENT: Head is atraumatic, normocephalic. Throat is moist. NECK: Supple. HEART: Regular rate. LUNGS: Decreased breath sounds bilaterally, but clear. ABDOMEN: Soft. EXTREMITIES: No edema. LABORATORY DATA: Last lab was on 01/02/2018,last blood sugar was ASSESSMENT AND PLAN: seen by Renal and by Psychiatry, arrange for safe discharge chronic obstructive pulmonary disease exacerbation, pleural effusion, coronary artery disease, diabetic chronic kidney disease, v itamin D deficiency, history of delirium, metabolic encephalopathy, dementia add tramadol recheck labs encouragement w/ pt oob John Brown DO MTDJeaneth
[2018-01-05] MEDS: (Novolin R) Insulin Human Regular 100 units/ml vial SC SCH ×4 (07:49→21:23)
[2018-01-05] MEDS: Fluticasone-Salmeterol 250-50mcg Diskus INH SCH (08:07)
[2018-01-05] MEDS: Tiotropium 18 mcg Cap For Inhalation INH SCH (08:07)
[2018-01-05] MEDS: Multivitamin Vitamin B Complex (Nephro-Vite) Tab PO SCH (08:42)
[2018-01-05] MEDS: Ranolazine 500 mg Extended Release Tablets PO SCH ×2 (09:47→17:19)
[2018-01-05] MEDS: POLYETHYLENE GLYCOL 3350 17 GM/Dose PACKET PO SCH ×2 (09:47→09:49)
[2018-01-05] MEDS: Metoprolol Succinate 50 mg XL Tab PO SCH ×3 (09:47→18:59)
[2018-01-05] MEDS: Pantoprazole 40 mg EC Tab PO SCH ×3 (09:47→20:03)
--- NOTE | 2018-01-05 12:41 | PN ---
DATE: SUBJECTIVE: I saw her resting comfortably in bed. She slept fairly well this morning. She is also needing morphine for the low back. MEDICATIONS: She is on Advair, Ambien, Apresoline, Drisdol, Fergon, heparin, Imdur, Januvia, Lasix, MiraLAX, morphine, Nephro-Karolyn, Norvasc, Novolin, Protonix, Spiriva, Toprol, and Tylenol. Currently, the Ultram and tramadol have fallen off her MAR. PHYSICAL EXAMINATION: VITAL SIGNS: She has a 98.3 temp, 73 pulse, 169/69 blood pressure, 20 respiratory rate, 100% O2 saturation on 2 L. HEENT: Head is atraumatic, normocephalic. HEART: Regular rate. LUNGS: Decreased breath sounds, but clear. ABDOMEN: Soft. EXTREMITIES: No edema. NEUROLOGIC: She is eating okay. She is trying physical therapy. She has been refusing labs.. LABORATORY DATA: Last labs on 01/02/2018 are okay and the last blood sugar was 119. ASSESSMENT AND PLAN: She is being seen by Renal and Psychiatry. We are waiting for Reconciliation Clerk, Case Management and the insurance company to arrange for a safe discharge place. She will continue with physical therapy, aggressive treatment and care. She is here for many reasons, congestive heart failure, chronic obstructive pulmonary disease exacerbation, acute kidney injury. Psychiatry still states she cannot stay alone. Routine aggressive treatment and care and we will follow her. Currently able to get out of bed to chair everyday, eating food. John Brown DO
--- NOTE | 2018-01-05 15:38 | CP.PCM.PN ---
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 Hypertension control with meds as ordered. 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 Monitor Input/Output, daily weights and renal function with basic metabolic panel supplement electrolytes as needed started iron supplement, MVI and weekly Vit D continue with diuretics getting inhalers for COPD. Dose meds/antibiotics for reduced GFR. Avoid fleets enema/magnesium based laxatives. Avoid nephrotoxins/NSAIDs/ iodinated contrast (unless needed emergently) Glycemic control Further work up/management as per primary team. pt stable for d/c from renal perspective when planned Thanks for allowing me to participate in care of your patient. Will sign off and follow further as needed basis. Please call if any Qs. Dr Shiraz Husain Office: [phone] reason for consult: ETHEL HPI: Pt is a 72 F with hx of diabetes Mellitus (years), hypertension (many years ), CAD s/p stent, PVD s/p iliac stent, Rt renal artery stenosis 60%, Ca breast s /p chemo presented with complaints of chest pain and SOB, managed for CHF and NSTEMI in past, reported heavy use of NSAIDs as naproxen, up to 10 tab/day for months probably has baseline CKD with cr 1.0-1.2 with intermittent AKIs ROS: She is irritable. wants to go home. denies short of breath. Denies any urinary complaint. No nausea vomiting. pain abdomen is intermittent Physical Examination: General Appearance: Comfortable, in no acute respiratory distress Vitals reviewed and noted as below Head; Atraumatic, normocephalic ENT: no ulcers no thrush. Tongue is midline. Oropharynx: no rash or ulcers. EYES: Pupils are equal, round and reactive to light accommodation. Eye muscles and extra-ocular movement intact. Sclera is anicteric. Neck; supple no lymphadenopathy, no thyromegaly or bruit Lungs: Normal respiratory rate/effort. Breath sounds bilateral clear Heart: Normal rate. s1s2 normal. No rub or gallop. Extremities: no edema. No varicose veins Neurological: Patient is Awake alert Moving all 4 extremities. No focal deficit Skin: Warm and dry. Normal turgor. No rash. Palpitation: Normal elasticity for age Abdomen: Abdomen is soft. Bowel sounds +. There is no abdominal tenderness, no guarding/rigidity no organomegaly Psych: Limited insight. Patient is often very irritable. MSK: no joint tenderness or swelling. Digits and nails normal, no deformity : kidney or bladder not palpable Labs/imaging reviewed. Past medical history, past surgical history, family history, social history, allergy reviewed and noted as below Family hx: no hx of CKD. Rest non-contributory sono jun 2017: simple cyst. previous CT showed stable complex cyst left kidney echo; moderate to severe TR SPEP/AMY neg, serum FLC assay WNL. Vit D <12.8 PTH 168 TSAT 4% Ferritin 19 Hep B and C neg Objective - Vital Signs/Intake and Output Vital Signs (last 24 hours): Temp Pulse Resp BP Pulse Ox 98.3 F 65 18 155/58 H 97 01/05/18 08:10 01/05/18 08:10 01/05/18 08:10 01/05/18 08:10 01/05/18 08:10 Intake and Output: 01/05/18 01/05/18 06:59 18:59 Intake Total 540 300 Balance 540 300 - Medications Medications: Current Medications Acetaminophen (Tylenol 325mg Tab) 650 mg PO Q6 PRN PRN Reason: Pain, Mild (1-3) Last Admin: 01/03/18 04:57 Dose: 650 mg Amlodipine Besylate (Norvasc) 10 mg PO QPM [facility] Last Admin: 01/04/18 17:20 Dose: 10 mg Aspirin (Ecotrin) 81 mg PO DAILY [facility] Last Admin: 01/05/18 09:47 Dose: Not Given Ergocalciferol (Drisdol 50,000 Intl Units Cap) 1 cap PO Q7D [facility] Last Admin: 01/01/18 11:20 Dose: 1 cap Famotidine (Pepcid) 20 mg PO DAILY [facility] Last Admin: 01/05/18 09:48 Dose: 20 mg Ferrous Gluconate (Fergon) 324 mg PO TID [facility] Last Admin: 01/05/18 14:01 Dose: 324 mg Furosemide (Lasix) 20 mg PO DAILY [facility] Last Admin: 01/05/18 09:47 Dose: Not Given Heparin Sodium (Porcine) (Heparin) 5,000 units SC Q12 [facility] Last Admin: 01/05/18 09:47 Dose: 5,000 units Hydralazine HCl (Apresoline) 100 mg PO TID [facility] Last Admin: 01/05/18 14:01 Dose: 100 mg Insulin Human Regular (Novolin R) 0 unit SC ACHS [facility] PRN Reason: Protocol Last Admin: 01/05/18 12:22 Dose: Not Given Isosorbide Mononitrate (Imdur) 60 mg PO DAILY [facility] Last Admin: 01/05/18 09:47 Dose: Not Given Metoprolol Succinate (Toprol Xl) 50 mg PO DAILY [facility] Last Admin: 01/05/18 09:47 Dose: Not Given Morphine Sulfate (Morphine) 1 mg IVP Q4 PRN PRN Reason: Pain, moderate (4-7) Last Admin: 01/05/18 09:50 Dose: 1 mg Pantoprazole Sodium (Protonix Ec Tab) 40 mg PO DAILY [facility] Last Admin: 01/05/18 09:47 Dose: Not Given Polyethylene Glycol (Miralax) 17 gm PO DAILY [facility] Last Admin: 01/05/18 09:47 Dose: Not Given Ranolazine (Ranexa) 500 mg PO BID [facility] Last Admin: 01/05/18 09:47 Dose: Not Given Fluticasone/Salmeterol (Advair Diskus 250/50) 1 puff INH RQ12 [facility] Last Admin: 01/05/18 08:07 Dose: Not Given Sitagliptin Phosphate (Januvia) 25 mg PO DAILY [facility] Last Admin: 01/05/18 09:47 Dose: Not Given Tiotropium Central (Spiriva) 18 mcg INH RQ24 [facility] Last Admin: 01/05/18 08:07 Dose: Not Given Tramadol HCl (Ultram) 50 mg PO TID PRN PRN Reason: Pain, Mild (1-3) Vitamin B Complex/Vit C/Folic Acid (Nephro-Karolyn) 1 tab PO Q24H [facility] Last Admin: 01/05/18 08:42 Dose: 1 tab Zolpidem Tartrate (Ambien) 5 mg PO HS PRN PRN Reason: Insomnia Last Admin: 01/04/18 21:03 Dose: 5 mg - Labs Labs: 01/02/18 06:08 01/02/18 06:08 PT 17.3 SECONDS (9.7-12.2) H 12/09/17 00:22 INR 1.5 12/09/17 00:22 APTT 34 SECONDS (21-34) 12/09/17 00:22
--- NOTE | 2018-01-05 19:54 | PN ---
DATE: SUBJECTIVE: The patient is seen. The patient is still irritable and verbally abusive and wants to go home. She states that she just wants to go home and see her pets, but the patient has been asking Ambien p.r.n. as well as morphine which she takes when the pain is severe. I told her she is still waiting for her Medicaid, but she is getting more impatient being in the hospital. PHYSICAL EXAMINATION: VITAL SIGNS: Temperature is 98.3, pulse rate is 65, blood pressure is 155/58, respirations 18, oxygen saturation is 97%. REVIEW OF SYSTEMS: GENERAL: The patient is alert, verbal, forgetfull, still her irritable self, verbally abusive. SKIN: No diaphoresis. HEENT: Hard of hearing. NECK: Supple. RESPIRATORY: She continues oxygen treatment. No dyspnea. CARDIOVASCULAR: No chest pain. GASTROINTESTINAL: Appetite is variable. EXTREMITIES: The patient is moving extremities. MUSCULOSKELETAL: Feels weak. NEUROLOGIC: Alert with periods of forgetfulness. MENTAL STATUS EXAMINATION: Elderly female who looks stated age, oriented x3, but forgetful. Speech is loud, verbally abusive. Mood is irritable. Thought process, still forgetful. Thought content, the patient states she just wants to go home to see her 2 pets. No paranoia. No hallucination. Attention and memory seem to be limited. Insight and judgment limited. Impulse control is guarded at this time. The patient is still unable to take care of herself alone and unsafe to be discharged to home without 24-hour care. IMPRESSION: History of delirium, metabolic encephalopathy, history of chronic obstructive pulmonary disease, as well as dementia. PLAN AND RECOMMENDATIONS: The patient is seen, meds reviewed. Continue Ambien p.r.n. as well as the morphine p.r.n. for pain. Continue treatment plan. The patient awaiting completion of Medicaid. Her mood is still very erratic at this time and the patient continues to be cursing profanities when she does not get what she wants. Demetrius Burdick MD
[2018-01-06] MEDS: Morphine 4 MG/ML VIAL IVP PRN ×3 (01:04→16:36)
[2018-01-06] MEDS: (Novolin R) Insulin Human Regular 100 units/ml vial SC SCH ×3 (07:17→17:48)
[2018-01-06] MEDS: Fluticasone-Salmeterol 250-50mcg Diskus INH SCH ×2 (08:19→20:01)
[2018-01-06] MEDS: Tiotropium 18 mcg Cap For Inhalation INH SCH (08:19)
[2018-01-06] MEDS: Multivitamin Vitamin B Complex (Nephro-Vite) Tab PO SCH (08:47)
[2018-01-06] MEDS: Ranolazine 500 mg Extended Release Tablets PO SCH ×3 (09:03→17:51)
[2018-01-06] MEDS: Metoprolol Succinate 50 mg XL Tab PO SCH (09:03)
[2018-01-06] MEDS: Pantoprazole 40 mg EC Tab PO SCH (09:03)
[2018-01-06] MEDS: POLYETHYLENE GLYCOL 3350 17 GM/Dose PACKET PO SCH (09:05)
[2018-01-06 11:40] LABS: HEMOGLOBIN 11.3 g/dL (11.0-16.0); MEAN CELL VOLUME 82.9 fL (81.0-99.0); MEAN CORPUSCULAR HEMOGLOBIN 28.1 pg (27.0-31.0); MEAN CORPUSCULAR HGB CONC 33.8 g/dL (33.0-37.0); MEAN PLATELET VOLUME 10.1 fL (7.2-11.7); RBC 4.04 Mil/uL (3.80-5.20); RED CELL DISTRIBUTION WIDTH 25.4 % (11.5-14.5); WHITE BLOOD COUNT 8.2 K/uL (4.8-10.8)
--- NOTE | 2018-01-06 12:09 | PN ---
DATE: SUBJECTIVE: I saw her sitting up in bed, getting ready to eat breakfast. She slept well. She is in good spirits today. She is on Advair, Ambien, Apresoline, Drisdol, Ecotrin, Fergon, heparin, Imdur, Januvia, Lasix, MiraLAX, morphine, Nephro-Karolyn, Norvasc, Novolin, Pepcid, Protonix, Ranexa, Spiriva, Toprol, Tylenol, and Ultram. PHYSICAL EXAMINATION: VITAL SIGNS: She has a 98.4 temp, 63 pulse, 157/91 blood pressure, 179/74 blood pressure, 20 respiratory rate, 100% O2 saturation on 2L. HEENT: Head is atraumatic, normocephalic. Throat is moist. NECK: Supple. HEART: Regular rate. LUNGS: Decreased breath sounds. Clear to auscultation. ABDOMEN: Soft, nontender, positive bowel sounds. EXTREMITIES: No edema. LABORATORY DATA: Last lab was on 01/02/2018, last blood sugar was 157. ASSESSMENT AND PLAN: She is asking us for letting her go home. Awaiting for case management, social media strategist, and insurance , likely this week. We will try and get her labs tomorrow, try to repeat evaluation and physical therapy. She said she is eating well. Able to get out of bed to chair and she is here for numerous reasons, congestive heart failure, chronic obstructive pulmonary disease, acute kidney injury. John Brown DO MTDD
[2018-01-06 12:11] LABS: ALB/GLOB RATIO 1.2 (1.0-2.1); ALBUMIN 3.4 g/dL (3.5-5.0); CALCIUM 9.4 mg/dl (8.6-10.4)
--- NOTE | 2018-01-06 18:34 | PN ---
DATE: SUBJECTIVE: The patient is seen. The patient seems to be asking her Ambien p.r.n. almost nightly and she states she is sleeping much better. Her blood pressure is better controlled. The patient seems to be in a better mood today. She states that she still wants to go home, but she has been doing physical therapy in the hospital and awaiting completion of her Medicaid. Mood petit, she is better compared to the last few days, no profanities noted. She has been eating a lot of oranges and she is hoping that she could see her pet dog and cat once discharged. VITAL SIGNS: Temperature is 98.2, pulse 69, blood pressure is 126/64, respiration is 18, oxygen saturation is 100%. REVIEW OF SYSTEMS: GENERAL: The patient is alert, verbal, still forgetful, but in better mood, not in acute respiratory distress. SKIN: No diaphoresis. HEENT: No headache, no dizziness, still hard of hearing. NECK: Supple. RESPIRATORY: Continuous oxygen treatment. No dyspnea. CARDIOVASCULAR: No chest pain. GASTROINTESTINAL: She is eating well. The patient states she loves eating oranges. EXTREMITIES: Gait is steady, but states she cannot ambulate alone without assistance. MUSCULOSKELETAL: Feels weak. NEURO: Alert with periods of forgetfulness. GENITOURINARY: No urinary problems. MENTAL STATUS EXAMINATION: Elderly female who looks stated age, oriented x3, but forgetful. Speech is spontaneous. Mood is much calmer today. Affect is reactive. Thought process, forgetful. Thought content, still wants to go home but less persistent. No psychosis. No suicidal or homicidal ideation. Attention and memory seem to be limited. Insight and judgment limited. Impulse control is fair at this time. The patient states she takes her pain medication morphine from Dr. Brown as needed. The patient also on tramadol, but she prefers the morphine and also Ambien p.r.n. which she has been taking nightly. IMPRESSION: History of delirium, metabolic encephalopathy secondary to chronic obstructive pulmonary disease as well as dementia. PLAN AND RECOMMENDATIONS: The patient is seen, meds reviewed. Continue present management. We will change her Ambien to 5 mg at bedtime standing as she has been asking more regularly. Since her sleep has been better, the patient's mood has improved. May continue the morphine p.r.n. The patient is awaiting completion of her Medicaid. At this time, she still needs 24-hour care, but hopefully when she gets Medicaid she will get some home care services or the patient may eventually need retirement home facility placement. For now, she is not insisting to leave. She is waiting for Medicaid to get approved. As stated, we will change her Ambien to 5 mg at bedtime standing for now. Demetrius Burdick MD KENNETH
[2018-01-07] MEDS: Morphine 4 MG/ML VIAL IVP PRN ×4 (03:27→21:34)
[2018-01-07] MEDS: (Novolin R) Insulin Human Regular 100 units/ml vial SC SCH ×4 (07:30→22:29)
[2018-01-07] MEDS: Multivitamin Vitamin B Complex (Nephro-Vite) Tab PO SCH (07:46)
[2018-01-07] MEDS: Tiotropium 18 mcg Cap For Inhalation INH SCH (07:58)
[2018-01-07] MEDS: Fluticasone-Salmeterol 250-50mcg Diskus INH SCH ×2 (07:58→20:40)
[2018-01-07] MEDS: Metoprolol Succinate 50 mg XL Tab PO SCH (09:18)
[2018-01-07] MEDS: Ranolazine 500 mg Extended Release Tablets PO SCH ×2 (09:18→17:38)
[2018-01-07] MEDS: Pantoprazole 40 mg EC Tab PO SCH (09:18)
[2018-01-07] MEDS: POLYETHYLENE GLYCOL 3350 17 GM/Dose PACKET PO SCH (09:19)
[2018-01-07 12:01] LABS: MEAN CELL VOLUME 83.7 fL (81.0-99.0); MEAN CORPUSCULAR HEMOGLOBIN 27.8 pg (27.0-31.0); MEAN CORPUSCULAR HGB CONC 33.2 g/dL (33.0-37.0); MEAN PLATELET VOLUME 9.9 fL (7.2-11.7); RBC 3.95 Mil/uL (3.80-5.20); RED CELL DISTRIBUTION WIDTH 25.2 % (11.5-14.5); WHITE BLOOD COUNT 8.4 K/uL (4.8-10.8)
[2018-01-07 12:08] LABS: ALB/GLOB RATIO 1.2 (1.0-2.1); ALBUMIN 3.3 g/dL (3.5-5.0); CALCIUM 9.3 mg/dl (8.6-10.4)
--- NOTE | 2018-01-07 12:13 | PN ---
DATE: 01/07/2018 SUBJECTIVE: I saw the patient resting comfortably in bed. She is having some abdominal discomfort. She is already on Pepcid and Protonix, hoping it helps her, and she is not taking the morphine as much. She is also on Advair, Ambien, Apresoline, aspirin, Drisdol, Ecotrin, iron, heparin, Imdur, Januvia, Lasix, MiraLax, morphine, Nephro-Karolyn, Norvasc, Novolin, Pepcid, Protonix, Ranexa, Spiriva, Toprol, Tylenol, and Ultram. PHYSICAL EXAMINATION: VITAL SIGNS: 97.6 temperature, 65 pulse, 188/68 blood pressure, 20 respiratory rate, 90% on room air. HEENT: Head is atraumatic, normocephalic. HEART: Regular rate. LUNGS: Decreased breath sounds but clear. ABDOMEN: Soft, positive bowel sounds, nontender. EXTREMITIES: No edema. LABORATORY DATA: She has refused the lab today but yesterday she had 8.2 white count, 11.3 hemoglobin, 30.5 hematocrit, and 264 platelets. She has a 138 sodium, potassium 4.5, BUN 27, creatinine 1.1, GFR is 49, sugar is 96, calcium is 9.4, total bilirubin is 0.75, AST is 15, ALT is 15, alkaline phosphatase is 49, total protein is 6.2. Awaiting social media marketer, case management, and insurance to arrange for safe discharge. PLAN: To continue treatment and care. Continue out of bed to chair everyday, eating. She has history of delirium, metabolic encephalopathy, chronic obstructive pulmonary disease, congestive heart failure, dementia, and she is a smoker. John Brown DO MTDJeaneth
--- NOTE | 2018-01-07 19:32 | PN ---
DATE: 01/07/2018 SUBJECTIVE: The patient is seen. The patient is less irritable. She is tolerating the recent change of her Ambien from p.r.n. to standing. Mood is more mellow. She still wants to go home, but less persistent. She states she just wants to see her pet dog and cat. The patient according to the nurse has been asking morphine once a day. The patient has been cooperative with staff. VITAL SIGNS: Temperature 97.6, pulse 65, blood pressure 146/55, respirations 20, oxygen saturation 93% on room air. REVIEW OF SYSTEMS: GENERAL: The patient is alert, verbal, still forgetful, not in acute respiratory distress. SKIN: No diaphoresis. HEENT: No hard of hearing. No headache. NECK: Supple. RESPIRATORY: Continues oxygen treatment. CARDIOVASCULAR: No chest pain. GASTROINTESTINAL: The patient is eating well. The patient has been eating a lot of crackers recently. EXTREMITIES. The patient is moving extremities. Gait and station steady, but she has been getting some physical therapy. NEURO: Alert with periods of forgetfulness. GENITOURINARY: No dysuria. MENTAL STATUS EXAMINATION: Elderly female who looks stated age. Seen in her room. Less irritable. Not in acute respiratory distress. Mood is symmetric and calm. Affect is reactive. Speech is spontaneous. Thought process, forgetful. Thought content, less preoccupied about going home. No psychosis. No suicidal or homicidal ideation. Attention and memory still limited. Insight and judgment limited. Impulse control is fair at this time. IMPRESSION: History of delirium, metabolic encephalopathy superimposed on chronic obstructive pulmonary disease as well as history of dementia, history of urinary tract infection, history of congestive heart failure. PLAN AND RECOMMENDATION: The patient is seen, meds reviewed. Continue present management. Continue present psych meds. The patient is awaiting completion and approval of her Medicaid. The patient will need a lot of services if discharged to home, but for now continue treatment plan as outlined. Demetrius Burdick MD
[2018-01-08] MEDS: Morphine 4 MG/ML VIAL IVP PRN ×3 (03:01→17:27)
[2018-01-08] MEDS ORDERED: Ergocalciferol 50,000 Intl Units Cap PO SCH (05:00)
[2018-01-08] MEDS: Fluticasone-Salmeterol 250-50mcg Diskus INH SCH ×2 (07:29→19:00)
[2018-01-08] MEDS: Tiotropium 18 mcg Cap For Inhalation INH SCH (07:29)
[2018-01-08] MEDS: (Novolin R) Insulin Human Regular 100 units/ml vial SC SCH ×3 (07:59→21:10)
[2018-01-08] MEDS: Multivitamin Vitamin B Complex (Nephro-Vite) Tab PO SCH (08:40)
[2018-01-08] MEDS: Ranolazine 500 mg Extended Release Tablets PO SCH ×2 (09:48→17:59)
[2018-01-08] MEDS: Pantoprazole 40 mg EC Tab PO SCH (10:05)
[2018-01-08] MEDS: Metoprolol Succinate 50 mg XL Tab PO SCH (10:05)
[2018-01-08] MEDS: POLYETHYLENE GLYCOL 3350 17 GM/Dose PACKET PO SCH (10:06)
--- NOTE | 2018-01-08 10:11 | PN ---
DATE: SUBJECTIVE: I saw Kathy resting comfortably in bed. She is telling me she is having some right-sided abdominal pain again. She does have medication for that. She has morphine, and she has Ultram which has helped her in the past. PHYSICAL EXAMINATION: VITAL SIGNS: She has a 98.8 temp, 68 pulse, 154/58 blood pressure, 20 respiratory rate, 100% O2 sat on 2 L nasal cannula. HEENT: Head is atraumatic, normocephalic. HEART: Regular rate. LUNGS: Clear to auscultation, but decreased breath sounds. ABDOMEN: Soft, mild right discomfort but no guarding or rebound. EXTREMITIES: No edema. LABORATORY DATA: She has 8.4 white count, 11 hemoglobin, 32 hematocrit, and 276 platelets. She has 139 sodium; potassium 5.3, we will keep an eye on that. BUN 33, creatinine 1.3, it is going up a little bit. We might put her on some IV fluids. GFR is 40. Sugar is 122, calcium 9.7, total bilirubin is 0.58, AST is 17, ALT is 8, alk phos 43. ASSESSMENT AND PLAN: She is being seen by Psychiatry and Renal. She could take her medications for the pain that she has. She has pain medications on our list. Await for psychiatric social worker and case management to arrange for appropriate safe discharge on Kathy Painter with congestive heart failure, chronic obstructive pulmonary disease, abdominal pain, renal insufficiency. John Brown DO
[2018-01-08] MEDS ORDERED: POLYETHYLENE GLYCOL 3350 17 GM/Dose PACKET PO ONE (16:15)
--- NOTE | 2018-01-08 17:04 | PN ---
DATE: SUBJECTIVE: The patient is seen. "I want to go home", but no other behavioral problems. She has been sleeping better. The patient is still waiting for completion of her Medicaid application. Still needs 24-hour care. PHYSICAL EXAMINATION: VITAL SIGNS: Temperature 97.5, pulse 68, blood pressure 179/65, respirations 18, oxygen saturation is 95%. REVIEW OF SYSTEMS: GENERAL: The patient is alert, oriented x2, forgetful, seen in her room. Her appetite seems to be good, less irritable. SKIN: No diaphoresis. HEENT: No hard of hearing. No headache. NECK: Supple. RESPIRATORY: No dyspnea. CARDIOVASCULAR: No chest pain. GASTROINTESTINAL: Eating very well. EXTREMITIES. Gait unsteady. MUSCULOSKELETAL: Feels weak. NEURO: Alert with periods of forgetfulness. GENITOURINARY: No dysuria. MENTAL STATUS EXAMINATION: Elderly female in hospital [facility], seen in her room, oriented x2, but forgetful. Mood is less irritable today. Affect is reactive. Speech is spontaneous. Thought process, forgetful. Thought content, the patient still wants to go home. She states she wants to see her pets, cat and dog. No paranoia. No hallucinations. No suicidal or homicidal ideation. No verbal output was noted today. Attention and memory is still limited. Insight and judgment is limited. Impulse control is fair at this time. IMPRESSION: History of delirium, metabolic encephalopathy, history of chronic obstructive pulmonary disease, as well as history of dementia. PLAN AND RECOMMENDATIONS: The patient is seen, meds reviewed. Continue present management. The patient is awaiting completion of Medicaid. Continue treatment plan as outlined. Demetrius Burdick MD
[2018-01-09] MEDS: Fluticasone-Salmeterol 250-50mcg Diskus INH SCH ×2 (07:19→19:06)
[2018-01-09] MEDS: Tiotropium 18 mcg Cap For Inhalation INH SCH (07:20)
[2018-01-09] MEDS: (Novolin R) Insulin Human Regular 100 units/ml vial SC SCH ×3 (07:45→17:38)
[2018-01-09] MEDS: Multivitamin Vitamin B Complex (Nephro-Vite) Tab PO SCH (08:29)
[2018-01-09] MEDS: Metoprolol Succinate 50 mg XL Tab PO SCH (10:17)
[2018-01-09] MEDS: Pantoprazole 40 mg EC Tab PO SCH (10:18)
[2018-01-09] MEDS: POLYETHYLENE GLYCOL 3350 17 GM/Dose PACKET PO SCH (10:20)
[2018-01-09] MEDS: Ranolazine 500 mg Extended Release Tablets PO SCH ×2 (10:20→17:38)
[2018-01-09] MEDS: Alum-Mag Hydrox-Simethicone Susp (30 mL) PO ONE ×2 (17:38→17:45)
[2018-01-09] MEDS: Morphine 4 MG/ML VIAL IVP PRN (19:21)
[2018-01-10] MEDS: Morphine 4 MG/ML VIAL IVP PRN ×4 (04:31→21:31)
--- NOTE | 2018-01-10 06:15 | PN ---
DATE: SUBJECTIVE: I saw her resting comfortably in bed. She slept well. She was constipated yesterday. She has Dulcolax suppository, moved her bowels quiet well. She is very happy . She is comfortable. She wants to go home, waiting for licensed clinical social worker and case management to work this out. PHYSICAL EXAMINATION: VITAL SIGNS: She has a 97.3 temp, 78 pulse, 158/60 blood pressure, 20 respiratory rate, 100% O2 sat on 2 L nasal cannula. HEENT: Head is atraumatic, normocephalic. She is alert and oriented. Throat is moist. NECK: Supple. HEART: Regular rate. LUNGS: Decreased breath sounds, but clear. ABDOMEN: Soft. EXTREMITIES: No edema. She can move all four extremities. LABORATORY DATA: She has 139 sodium, potassium 5.3 that was two days ago, BUN is 33, creatinine is 1.3, GFR is 40, sugar is 108, AST 17, ALT is 8. Blood test, white count is 8.4, hemoglobin 11, hematocrit 33, and platelets ASSESSMENT AND PLAN: She has been refusing blood. She has been seen by Psychiatry. Renal signed off. Awaiting for placement for home and 24-hour care. I encouraged to do out of bed to chair everyday. I asked her to repeat with the blood test kidney function. I also asked her to drink more fluids. and we will continue aggressive treatment and care. Hopefully, she will be held and await for social service case management. John Brown DO MTDD
[2018-01-10] MEDS: Tiotropium 18 mcg Cap For Inhalation INH SCH (07:19)
[2018-01-10] MEDS: Fluticasone-Salmeterol 250-50mcg Diskus INH SCH ×2 (07:19→19:40)
[2018-01-10] MEDS: (Novolin R) Insulin Human Regular 100 units/ml vial SC SCH ×3 (07:51→21:34)
[2018-01-10] MEDS: Multivitamin Vitamin B Complex (Nephro-Vite) Tab PO SCH (09:10)
[2018-01-10] MEDS: Pantoprazole 40 mg EC Tab PO SCH (09:13)
[2018-01-10] MEDS: Metoprolol Succinate 50 mg XL Tab PO SCH (09:13)
[2018-01-10] MEDS: Ranolazine 500 mg Extended Release Tablets PO SCH ×2 (09:14→17:30)
--- NOTE | 2018-01-10 12:13 | PN ---
DATE: SUBJECTIVE: I saw Kathy in bed. She was very tired this morning. She was tired most of the night. She is very sleepy at this time, but no complaints. PHYSICAL EXAMINATION: VITAL SIGNS: She has a 97.6 temperature, 78 pulse, 147/61 blood pressure, 20 respiratory rate, 96% O2 saturation on 2 L nasal cannula. HEENT: Head is atraumatic, normocephalic. HEART: Regular rate. LUNGS: Decreased breath sounds, but clear. ABDOMEN: Soft. EXTREMITIES: No edema. She can move all 4 extremities. MEDICATIONS: She is currently on Advair, Ambien, Apresoline, aspirin, Drisdol, Fergon, heparin, Imdur, Januvia, Lasix, MiraLAX, morphine, Nephro-Karolyn, Norvasc, Novolin, Pepcid, Protonix, Ranexa, Spiriva, Toprol, Tylenol. ASSESSMENT AND PLAN: Last lab was on 01/07/2018, actually did fairly well. Her last blood sugar was 117. She is being seen by Psychiatry. Renal has not seen her in a few days. Awaiting for social services counselor, Case Management, to work on the discharge plan today for her. We will continue with aggressive treatment and care, physical therapy, get her out of bed to chair everyday. Try and check her labs tomorrow. She has congestive heart failure, chronic obstructive pulmonary disease, constipation, acute kidney injury. John Brown DO
[2018-01-10] MEDS: POLYETHYLENE GLYCOL 3350 17 GM/Dose PACKET PO SCH (12:33)
[2018-01-11] MEDS: Morphine 4 MG/ML VIAL IVP PRN ×2 (03:08→16:25)
[2018-01-11 07:57] LABS: HEMOGLOBIN 10.9 g/dL (11.0-16.0); MEAN CELL VOLUME 83.1 fL (81.0-99.0); MEAN CORPUSCULAR HEMOGLOBIN 28.1 pg (27.0-31.0); MEAN CORPUSCULAR HGB CONC 33.8 g/dL (33.0-37.0); MEAN PLATELET VOLUME 9.2 fL (7.2-11.7); RBC 3.89 Mil/uL (3.80-5.20); RED CELL DISTRIBUTION WIDTH 25.1 % (11.5-14.5); WHITE BLOOD COUNT 7.7 K/uL (4.8-10.8)
[2018-01-11] MEDS: (Novolin R) Insulin Human Regular 100 units/ml vial SC SCH ×3 (08:06→21:25)
[2018-01-11] MEDS: Multivitamin Vitamin B Complex (Nephro-Vite) Tab PO SCH (08:07)
[2018-01-11 08:16] LABS: ALB/GLOB RATIO 1.1 (1.0-2.1); ALBUMIN 3.2 g/dL (3.5-5.0); CALCIUM 9.2 mg/dl (8.6-10.4)
[2018-01-11] MEDS: Fluticasone-Salmeterol 250-50mcg Diskus INH SCH ×2 (08:19→20:18)
[2018-01-11] MEDS: Tiotropium 18 mcg Cap For Inhalation INH SCH (08:19)
[2018-01-11] MEDS: Ranolazine 500 mg Extended Release Tablets PO SCH ×2 (09:41→17:59)
[2018-01-11] MEDS: Pantoprazole 40 mg EC Tab PO SCH (09:44)
[2018-01-11] MEDS: Metoprolol Succinate 50 mg XL Tab PO SCH (09:44)
[2018-01-11] MEDS: POLYETHYLENE GLYCOL 3350 17 GM/Dose PACKET PO SCH (09:50)
--- NOTE | 2018-01-11 11:36 | PN ---
DATE: SUBJECTIVE: I saw Kathy resting comfortably in bed this morning. She was started on morphine for pain last night. She is not feeling well today. She was started on Advair, Ambien, Apresoline, Drisdol, Fergon, heparin, Imdur, Januvia, Lasix, MiraLAX, morphine as needed, vitamins, Norvasc, Pepcid, Protonix, Ranexa, Spiriva, Toprol, Tylenol. PHYSICAL EXAMINATION: VITAL SIGNS: Temperature 97.5, 65 pulse, 166/59 blood pressure, 20 respiratory rate, and 96% O2 saturation on 2 L nasal cannula. HEENT: Head is atraumatic, normocephalic. HEART: Regular rate. LUNGS: Clear to auscultation, decreased breath sounds. ABDOMEN: Soft, nontender. Positive bowel sounds. EXTREMITIES: No edema. SKIN: Pale. LABORATORY DATA: Last lab was on 01/07/2018, Last blood sugar was 110. ASSESSMENT AND PLAN: We will continue with aggressive treatment care. Awaiting for date of discharge. She is being seen by Psychiatry and Continue with aggressive treatment and care as well as I will ask the neonatal social worker and Case Management to arrange for safe discharge. Congestive heart failure, chronic obstructive pulmonary disease. John Brown DO MTDJeaneth
[2018-01-12 07:19] LABS: HEMOGLOBIN 10.8 g/dL (11.0-16.0); MEAN CELL VOLUME 83.4 fL (81.0-99.0); MEAN CORPUSCULAR HEMOGLOBIN 28.2 pg (27.0-31.0); MEAN CORPUSCULAR HGB CONC 33.8 g/dL (33.0-37.0); MEAN PLATELET VOLUME 9.1 fL (7.2-11.7); RBC 3.82 Mil/uL (3.80-5.20); RED CELL DISTRIBUTION WIDTH 24.8 % (11.5-14.5); WHITE BLOOD COUNT 5.2 K/uL (4.8-10.8)
[2018-01-12] MEDS: (Novolin R) Insulin Human Regular 100 units/ml vial SC SCH ×4 (07:40→21:51)
[2018-01-12] MEDS: Tiotropium 18 mcg Cap For Inhalation INH SCH (07:51)
[2018-01-12] MEDS: Fluticasone-Salmeterol 250-50mcg Diskus INH SCH (07:51)
[2018-01-12 08:06] LABS: ALB/GLOB RATIO 1.1 (1.0-2.1); CALCIUM 8.9 mg/dl (8.6-10.4)
[2018-01-12] MEDS: Multivitamin Vitamin B Complex (Nephro-Vite) Tab PO SCH (08:45)
[2018-01-12] MEDS: Morphine 4 MG/ML VIAL IVP PRN ×3 (09:11→20:32)
[2018-01-12] MEDS: POLYETHYLENE GLYCOL 3350 17 GM/Dose PACKET PO SCH (09:14)
[2018-01-12] MEDS: Metoprolol Succinate 50 mg XL Tab PO SCH (09:15)
[2018-01-12] MEDS: Pantoprazole 40 mg EC Tab PO SCH (09:15)
[2018-01-12] MEDS: Ranolazine 500 mg Extended Release Tablets PO SCH ×2 (09:15→17:52)
--- NOTE | 2018-01-12 09:53 | PN ---
DATE: 01/12/2018. SUBJECTIVE: I saw her resting comfortably in bed. She apparently slept well last night. She is in good spirits. She is trying in physical therapy. She is eating better. She tells me she wants to go home. Awaiting for social service and case management to work her insurance out. MEDICATIONS: She is on Advair, Ambien, Apresoline, aspirin, Drisdol, Fergon, heparin, Imdur, Januvia, Lasix, MiraLax, morphine, Nephro-Karolyn, Norvasc, Novolin, Pepcid, Protonix, Ranexa, Spiriva, Toprol, Tylenol, Ultram and Zofran. PHYSICAL EXAMINATION: VITAL SIGNS: She has a 98.1 temp, 70 pulse, 129/62 blood pressure, 20 respiratory rate and 100% O2 saturation on 2 L nasal cannula. HEENT: Head is atraumatic, normocephalic. HEART: Regular rate. LUNGS: Decreased breath sounds, but clear. ABDOMEN: Soft. EXTREMITIES: No edema. LABORATORY DATA: She has a 7.7 white count, 10.9 hemoglobin, 32.3 hematocrit with 260 platelets. She has 139 sodium, potassium 4.8, BUN 20, creatinine 1.3, which is about her baseline. GFR is 40, sugar is 102, calcium is 9.2, total bili is 0.4, AST is 20, ALT is 11, alk phos 48, total protein 6.1. ASSESSMENT AND PLAN: Overall, just waiting for placement. She has got congestive heart failure, renal insufficiency, chronic obstructive pulmonary disease, constipation, acute kidney failure, which I believe is constipation. Labs were pretty good. Waiting for oncology social worker case maker to help us with her placement. John Brown DO MTDD
--- NOTE | 2018-01-12 14:43 | CP.PCM.PN ---
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 renal functin stable Hypertension control with meds as ordered. 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 currently BP control acceptable Monitor Input/Output, daily weights and renal function with basic metabolic panel supplement electrolytes as needed continue with iron supplement, MVI and weekly Vit D continue with diuretics getting inhalers for COPD. Dose meds/antibiotics for reduced GFR. Avoid fleets enema/magnesium based laxatives. Avoid nephrotoxins/NSAIDs/ iodinated contrast (unless needed emergently) Glycemic control Further work up/management as per primary team. pt stable for d/c from renal perspective when planned Thanks for allowing me to participate in care of your patient. Will sign off and follow further as needed basis. Please call if any Qs. Dr Shiraz Husain Office: [phone] reason for consult: ETHEL HPI: Pt is a 72 F with hx of diabetes Mellitus (years), hypertension (many years ), CAD s/p stent, PVD s/p iliac stent, Rt renal artery stenosis 60%, Ca breast s /p chemo presented with complaints of chest pain and SOB, managed for CHF and NSTEMI in past, reported heavy use of NSAIDs as naproxen, up to 10 tab/day for months probably has baseline CKD with cr 1.0-1.2 with intermittent AKIs ROS: Went to follow up on her but she was very irritable/angry and verbally abusive. Just want to go home. Physical Examination: General Appearance: Comfortable, in no acute respiratory distress but angry/ upset Vitals reviewed and noted as below rest unable as pt un-cooperative. Labs/imaging reviewed. Past medical history, past surgical history, family history, social history, allergy reviewed and noted as below Family hx: no hx of CKD. Rest non-contributory sono jun 2017: simple cyst. previous CT showed stable complex cyst left kidney echo; moderate to severe TR SPEP/AMY neg, serum FLC assay WNL. Vit D <12.8 PTH 168 TSAT 4% Ferritin 19 Hep B and C neg Objective - Vital Signs/Intake and Output Vital Signs (last 24 hours): Temp Pulse Resp BP Pulse Ox 97.9 F 74 20 160/75 H 99 01/12/18 08:00 01/12/18 08:00 01/12/18 08:00 01/12/18 09:14 01/12/18 08:00 Intake and Output: 01/12/18 01/12/18 06:59 18:59 Intake Total 100 Balance 100 - Medications Medications: Current Medications Acetaminophen (Tylenol 325mg Tab) 650 mg PO Q6 PRN PRN Reason: Pain, Mild (1-3) Last Admin: 01/11/18 20:24 Dose: 650 mg Amlodipine Besylate (Norvasc) 10 mg PO QPM [facility] Last Admin: 01/11/18 18:00 Dose: 10 mg Aspirin (Aspirin Chewable) 81 mg PO DAILY [facility] Last Admin: 01/12/18 09:14 Dose: 81 mg Ergocalciferol (Drisdol 50,000 Intl Units Cap) 1 cap PO Q7D [facility] Famotidine (Pepcid) 20 mg PO DAILY [facility] Last Admin: 01/12/18 09:23 Dose: 20 mg Ferrous Gluconate (Fergon) 324 mg PO TID [facility] Last Admin: 01/12/18 09:23 Dose: 324 mg Furosemide (Lasix) 20 mg PO DAILY [facility] Last Admin: 01/12/18 09:14 Dose: 20 mg Heparin Sodium (Porcine) (Heparin) 5,000 units SC Q12 [facility] Last Admin: 01/12/18 09:28 Dose: 5,000 units Hydralazine HCl (Apresoline) 100 mg PO TID [facility] Last Admin: 01/12/18 09:15 Dose: 100 mg Insulin Human Regular (Novolin R) 0 unit SC ACHS [facility] PRN Reason: Protocol Last Admin: 01/12/18 11:45 Dose: 2 unit Isosorbide Mononitrate (Imdur) 60 mg PO DAILY [facility] Last Admin: 01/12/18 09:23 Dose: 60 mg Metoprolol Succinate (Toprol Xl) 50 mg PO DAILY [facility] Last Admin: 01/12/18 09:15 Dose: 50 mg Morphine Sulfate (Morphine) 1 mg IVP Q4 PRN PRN Reason: Pain, moderate (4-7) Last Admin: 01/12/18 09:11 Dose: 1 mg Ondansetron HCl (Zofran Inj) 4 mg IVP Q8 PRN PRN Reason: Nausea/Vomiting Last Admin: 01/12/18 09:16 Dose: 4 mg Pantoprazole Sodium (Protonix Ec Tab) 40 mg PO DAILY [facility] Last Admin: 01/12/18 09:15 Dose: 40 mg Polyethylene Glycol (Miralax) 17 gm PO DAILY [facility] Last Admin: 01/12/18 09:14 Dose: 17 gm Ranolazine (Ranexa) 500 mg PO BID [facility] Last Admin: 01/12/18 09:15 Dose: 500 mg Fluticasone/Salmeterol (Advair Diskus 250/50) 1 puff INH RQ12 [facility] Last Admin: 01/12/18 07:51 Dose: Not Given Sitagliptin Phosphate (Januvia) 25 mg PO DAILY [facility] Last Admin: 01/12/18 09:14 Dose: 25 mg Tiotropium [place] (Spiriva) 18 mcg INH RQ24 [facility] Last Admin: 01/12/18 07:51 Dose: Not Given Tramadol HCl (Ultram) 50 mg PO TID PRN PRN Reason: Pain, Mild (1-3) Last Admin: 01/11/18 14:29 Dose: 50 mg Vitamin B Complex/Vit C/Folic Acid (Nephro-Karolyn) 1 tab PO Q24H [facility] Last Admin: 01/12/18 08:45 Dose: 1 tab Zolpidem Tartrate (Ambien) 5 mg PO HS [facility] Last Admin: 01/11/18 21:19 Dose: 5 mg - Labs Labs: 01/12/18 07:06 01/12/18 07:06 PT 17.3 SECONDS (9.7-12.2) H 12/09/17 00:22 INR 1.5 12/09/17 00:22 APTT 34 SECONDS (21-34) 12/09/17 00:22
[2018-01-13] MEDS: Morphine 4 MG/ML VIAL IVP PRN ×4 (05:09→21:08)
[2018-01-13] MEDS: Fluticasone-Salmeterol 250-50mcg Diskus INH SCH ×2 (07:19→19:33)
[2018-01-13] MEDS: Tiotropium 18 mcg Cap For Inhalation INH SCH (07:19)
[2018-01-13] MEDS: (Novolin R) Insulin Human Regular 100 units/ml vial SC SCH ×4 (07:45→20:58)
[2018-01-13] MEDS: Metoprolol Succinate 50 mg XL Tab PO SCH (10:07)
[2018-01-13] MEDS: Ranolazine 500 mg Extended Release Tablets PO SCH ×2 (10:09→18:37)
[2018-01-13] MEDS: Pantoprazole 40 mg EC Tab PO SCH (10:11)
[2018-01-13] MEDS: POLYETHYLENE GLYCOL 3350 17 GM/Dose PACKET PO SCH (10:12)
[2018-01-13] MEDS: Multivitamin Vitamin B Complex (Nephro-Vite) Tab PO SCH (10:13)
--- NOTE | 2018-01-13 10:24 | PN ---
DATE: SUBJECTIVE: I saw her resting comfortably in bed. She is still very upset that she is supposed to be in the hospital. She wants to go home. She wants to know whether they are going to get the insurance all straightened out. MEDICATIONS: She is on Advair, Ambien, Apresoline, aspirin, Drisdol, Fergon, heparin, Imdur, Januvia, Lasix, MiraLAX, morphine, Nephro-Karolyn, Norvasc, Novolin, Pepcid, Protonix, Ranexa, Spiriva, Toprol, Tylenol, and Zofran. PHYSICAL EXAMINATION: VITAL SIGNS: She has a 98.2 temp, 77 pulse, 159/62 blood pressure, 20 respiratory rate, and 96% O2 saturation on room air. HEENT: Head is atraumatic, normocephalic. HEART: Regular rate. LUNGS: Decreased breath sounds, but clear. ABDOMEN: Soft, nontender, positive bowel sounds. EXTREMITIES: No edema. LABORATORY DATA: No labs for today. Labs yesterday were okay. ASSESSMENT AND PLAN: We have to find and provide a safe discharge plan for her. Renal had seen her here today as well as seen by Psychiatry. She has a systemic congestive heart failure, chronic obstructive pulmonary disease exacerbation, pleural effusions, pulmonary congestion, acute kidney injury, coronary artery disease, diabetic chronic kidney disease, hypertensive chronic kidney disease, anemia, vitamin D deficiency. We will continue with aggressive treatment care. Continue present plan. We will also work for her a safe plan and safe discharge. John Brown DO
[2018-01-14] MEDS: Morphine 4 MG/ML VIAL IVP PRN ×4 (00:57→21:27)
[2018-01-14] MEDS: Pantoprazole 40 mg EC Tab PO SCH ×2 (04:36→11:00)
[2018-01-14] MEDS: (Novolin R) Insulin Human Regular 100 units/ml vial SC SCH ×4 (07:33→22:29)
[2018-01-14] MEDS: Multivitamin Vitamin B Complex (Nephro-Vite) Tab PO SCH (08:09)
[2018-01-14] MEDS: POLYETHYLENE GLYCOL 3350 17 GM/Dose PACKET PO SCH (11:00)
[2018-01-14] MEDS: Metoprolol Succinate 50 mg XL Tab PO SCH (11:09)
[2018-01-14] MEDS: Tiotropium 18 mcg Cap For Inhalation INH SCH (11:11)
[2018-01-14] MEDS: Fluticasone-Salmeterol 250-50mcg Diskus INH SCH ×2 (11:11→19:29)
[2018-01-14] MEDS: Ranolazine 500 mg Extended Release Tablets PO SCH ×2 (11:12→18:28)
[2018-01-14] MEDS: Sodium Chloride 0.45% 1,000 ML IV SCH ×2 (12:00→14:03)
--- NOTE | 2018-01-14 13:52 | PN ---
DATE: SUBJECTIVE: I saw her this morning. She was in one of her moods this morning, very angry and upset. She has an abdominal pain last night and this morning, she is not eating much and she is complaining, complaining and yelling and cursing. PHYSICAL EXAMINATION VITAL SIGNS: She has 98.3 temp, 86 pulse, 159/71 blood pressure, 20 respiratory rate, 97% O2 sat on room air. HEENT: Head is atraumatic, normocephalic. HEART: Regular rate. LUNGS: Decreased breath sounds, but clear. ABDOMEN: Soft, nontender, positive bowel sounds. EXTREMITIES: No edema. MEDICATIONS: She is currently on Advair, Ambien, Apresoline, aspirin, Drisdol, Fergon, heparin, Imdur, Januvia, Lasix, MiraLax, morphine as needed, Nephro-Karolyn, Norvasc, Novolin, Pepcid, Protonix which was p.o., put her on IV, Ranexa, IV fluids. I added Spiriva, Toprol, Tylenol, Ultram, and Zofran. I also put her on a CAT scan of abdomen and pelvis, called in Psychiatry and GI evaluation. Checking her labs for blood culture and urine culture and I presume that is good, and we will see how she does. She has done some time to time over the past 10 to 15 years I have known her and here we are. She is very rude, mean, no matter what you say. Hopefully, Psychiatry can help us. Continue aggressive treatment and care and is probably to go for a very safe place for her on discharge. We will check her labs. John Brown DO
--- NOTE | 2018-01-14 14:42 | CP.PCM.CON ---
History of Present Illness - History of Present Illness History of Present Illness: GI Fellow PGY4 Consult Note This is a 72yo female with triple vessel CAD with prior PCI, peripheral vascular disease, CHF, CKD, severe pulmonary hypertension, COPD, prior CVA, DVT , breast cancer s/p chemotherapy who presented to the hospital with left sided chest pain and and pain. The patient was recently admitted at [facility] with NSTEMI, underwent diagnostic catheterization revealing severe triple vessel disease. Patient refusing CABG and being treated medically at present. She returned to the hospital with recurrence of left sided chest pain and complaint of chronic, long-standing abdominal pain. She states abdominal pain is worse with deep inspiration and does not change with defecation or PO intake. Pt was apparently about to go to the OR at [facility] for cabg and refused right before. At this time, she again presents with elevated troponins. Pt is still confused and unsure of next steps. Patient admits to prior endoscopy and colonoscopy. ROS: 12 system ROS performed and negative except where stated PMHx: See HPI PSHx: Right hip, PCIx4, carotid stent, Port-a-cath insertion/removal, aortoiliac stent placement FHx: Discussed with patient and she denies any pertinent history Social: +tobacco use daily, +EtOH weekly, denies illicit drug use Endo: EGD 11/2016 - hiatal hernia, otherwise unremarkable Past Patient History - Infectious Disease Hx of Infectious Diseases: None - Tetanus Immunizations Tetanus Immunization: Unknown - Past Medical History & Family History Past Medical History?: Yes - Past Social History Smoking Status: Former Smoker - CARDIAC Hx Cardiac Disorders: Yes (CHF) Hx Congestive Heart Failure: Yes Hx Hypercholesterolemia: Yes Hx Hypertension: Yes - PULMONARY Hx Chronic Obstructive Pulmonary Disease (COPD): Yes - NEUROLOGICAL HX Cerebrovascular Accident: Yes - HEENT Hx HEENT Problems: Yes Hx Blind: Yes (R. eye) Hx Deafness: Yes ([place], deaf in R. ear) - RENAL Hx Chronic Kidney Disease: Yes - ENDOCRINE/METABOLIC Hx Diabetes Mellitus Type 2: Yes - HEMATOLOGICAL/ONCOLOGICAL Hx Anemia: Yes (blood transfusion) - INTEGUMENTARY Hx Dermatological Problems: No - MUSCULOSKELETAL/RHEUMATOLOGICAL Hx Arthritis: Yes (both hips,left ankle) - GASTROINTESTINAL Hx Gastrointestinal Disorders: Yes Hx Gastroesophageal Reflux: Yes - GENITOURINARY/GYNECOLOGICAL Hx Genitourinary Disorders: No - PSYCHIATRIC Hx Psychophysiologic Disorder: Yes Hx Schizophrenia: Yes Hx Substance Use: No - SURGICAL HISTORY Hx Surgeries: Yes Hx Coronary Stent: Yes - ANESTHESIA Hx Anesthesia: Yes Hx Anesthesia Reactions: No Hx Malignant Hyperthermia: No Meds Allergies/Adverse Reactions: Allergies Allergy/AdvReac Type Severity Reaction Status Date / Time iodine Allergy Severe ANAPHYLAXIS Verified 12/09/17 00:05 iv dye Allergy Severe ANAPHYLAXIS Uncoded 12/09/17 00:05 - Medications Medications: Current Medications Acetaminophen (Tylenol 325mg Tab) 650 mg PO Q6 PRN PRN Reason: Pain, Mild (1-3) Last Admin: 01/11/18 20:24 Dose: 650 mg Amlodipine Besylate (Norvasc) 10 mg PO QPM [facility] Last Admin: 01/13/18 18:37 Dose: 10 mg Aspirin (Aspirin Chewable) 81 mg PO DAILY [facility] Last Admin: 01/14/18 11:10 Dose: 81 mg Ergocalciferol (Drisdol 50,000 Intl Units Cap) 1 cap PO Q7D [facility] Famotidine (Pepcid) 20 mg PO DAILY [facility] Last Admin: 01/14/18 11:09 Dose: 20 mg Ferrous Gluconate (Fergon) 324 mg PO TID [facility] Last Admin: 01/14/18 14:18 Dose: 324 mg Furosemide (Lasix) 20 mg PO DAILY [facility] Last Admin: 01/14/18 11:20 Dose: 20 mg Heparin Sodium (Porcine) (Heparin) 5,000 units SC Q12 [facility] Last Admin: 01/14/18 11:18 Dose: Not Given Hydralazine HCl (Apresoline) 100 mg PO TID [facility] Last Admin: 01/14/18 14:18 Dose: 100 mg Sodium Chloride (Sodium Chloride 0.45%) 1,000 mls @ 40 mls/hr IV .Q24H [facility] Last Admin: 01/14/18 14:03 Dose: 40 mls/hr Insulin Human Regular (Novolin R) 0 unit SC ACHS [facility] PRN Reason: Protocol Last Admin: 01/14/18 07:33 Dose: Not Given Isosorbide Mononitrate (Imdur) 60 mg PO DAILY [facility] Last Admin: 01/14/18 11:11 Dose: 60 mg Metoprolol Succinate (Toprol Xl) 50 mg PO DAILY [facility] Last Admin: 01/14/18 11:09 Dose: 50 mg Morphine Sulfate (Morphine) 1 mg IVP Q4 PRN PRN Reason: Pain, moderate (4-7) Last Admin: 01/14/18 08:06 Dose: 1 mg Ondansetron HCl (Zofran Inj) 4 mg IVP Q8 PRN PRN Reason: Nausea/Vomiting Last Admin: 01/13/18 23:24 Dose: 4 mg Pantoprazole Sodium (Protonix Inj) 40 mg IVP Q12H [facility] Last Admin: 01/14/18 12:38 Dose: 40 mg Polyethylene Glycol (Miralax) 17 gm PO DAILY [facility] Last Admin: 01/14/18 11:00 Dose: Not Given Ranolazine (Ranexa) 500 mg PO BID [facility] Last Admin: 01/14/18 11:12 Dose: 500 mg Fluticasone/Salmeterol (Advair Diskus 250/50) 1 puff INH RQ12 [facility] Last Admin: 01/14/18 11:11 Dose: Not Given Sitagliptin Phosphate (Januvia) 25 mg PO DAILY [facility] Last Admin: 01/14/18 11:19 Dose: Not Given Tiotropium [place] (Spiriva) 18 mcg INH RQ24 [facility] Last Admin: 01/14/18 11:11 Dose: Not Given Tramadol HCl (Ultram) 50 mg PO TID PRN PRN Reason: Pain, Mild (1-3) Last Admin: 01/14/18 11:03 Dose: 50 mg Vitamin B Complex/Vit C/Folic Acid (Nephro-Karolyn) 1 tab PO Q24H [facility] Last Admin: 01/14/18 08:09 Dose: Not Given Zolpidem Tartrate (Ambien) 5 mg PO HS [facility] Last Admin: 01/13/18 22:30 Dose: Not Given Results - Vital Signs Recent Vital Signs: Last Vital Signs Temp 98.3 F 01/14/18 08:52 Pulse 86 01/14/18 08:52 Resp 20 01/14/18 08:52 BP 166/89 H 01/14/18 11:20 Pulse Ox 97 01/14/18 08:52 - Labs Result Diagrams: 01/12/18 07:06 01/12/18 07:06 Labs: Laboratory Results - last 24 hr 01/13/18 01/13/18 01/13/18 20:56 20:58 21:28 POC Glucose (mg/dL) 64 L 63 L 123 H 01/14/18 01/14/18 02:11 06:14 POC Glucose (mg/dL) 118 H 124 H
--- NOTE | 2018-01-14 14:53 | CP.PCM.PN ---
<Avis Ledbetter - Last Filed: 01/14/18 14:56> Subjective - Date & Time of Evaluation Date of Evaluation: 01/14/18 Time of Evaluation: 11:00 - Subjective Subjective: GI Fellow PGY4 Progress Note Patient seen and examined bedside this morning, pt continues to complain of abdominal pain every night requiring pain medication. She is having BM daily and denies constipation or diarrhea. Reports hx of PUD many years ago. ROS: 12 system ROS performed and negative except as above Objective - Vital Signs/Intake and Output Vital Signs (last 24 hours): Temp Pulse Resp BP Pulse Ox 98.3 F 86 20 166/89 H 97 01/14/18 08:52 01/14/18 08:52 01/14/18 08:52 01/14/18 11:20 01/14/18 08:52 Intake and Output: 01/14/18 01/14/18 06:59 18:59 Intake Total 600 Balance 600 - Medications Medications: Current Medications Acetaminophen (Tylenol 325mg Tab) 650 mg PO Q6 PRN PRN Reason: Pain, Mild (1-3) Last Admin: 01/11/18 20:24 Dose: 650 mg Amlodipine Besylate (Norvasc) 10 mg PO QPM [facility] Last Admin: 01/13/18 18:37 Dose: 10 mg Aspirin (Aspirin Chewable) 81 mg PO DAILY [facility] Last Admin: 01/14/18 11:10 Dose: 81 mg Ergocalciferol (Drisdol 50,000 Intl Units Cap) 1 cap PO Q7D [facility] Famotidine (Pepcid) 20 mg PO DAILY [facility] Last Admin: 01/14/18 11:09 Dose: 20 mg Ferrous Gluconate (Fergon) 324 mg PO TID [facility] Last Admin: 01/14/18 14:18 Dose: 324 mg Furosemide (Lasix) 20 mg PO DAILY [facility] Last Admin: 01/14/18 11:20 Dose: 20 mg Heparin Sodium (Porcine) (Heparin) 5,000 units SC Q12 [facility] Last Admin: 01/14/18 11:18 Dose: Not Given Hydralazine HCl (Apresoline) 100 mg PO TID [facility] Last Admin: 01/14/18 14:18 Dose: 100 mg Sodium Chloride (Sodium Chloride 0.45%) 1,000 mls @ 40 mls/hr IV .Q24H [facility] Last Admin: 01/14/18 14:03 Dose: 40 mls/hr Insulin Human Regular (Novolin R) 0 unit SC ACHS [facility] PRN Reason: Protocol Last Admin: 01/14/18 07:33 Dose: Not Given Isosorbide Mononitrate (Imdur) 60 mg PO DAILY [facility] Last Admin: 01/14/18 11:11 Dose: 60 mg Metoprolol Succinate (Toprol Xl) 50 mg PO DAILY [facility] Last Admin: 01/14/18 11:09 Dose: 50 mg Morphine Sulfate (Morphine) 1 mg IVP Q4 PRN PRN Reason: Pain, moderate (4-7) Last Admin: 01/14/18 08:06 Dose: 1 mg Ondansetron HCl (Zofran Inj) 4 mg IVP Q8 PRN PRN Reason: Nausea/Vomiting Last Admin: 01/13/18 23:24 Dose: 4 mg Pantoprazole Sodium (Protonix Inj) 40 mg IVP Q12H [facility] Last Admin: 01/14/18 12:38 Dose: 40 mg Polyethylene Glycol (Miralax) 17 gm PO DAILY [facility] Last Admin: 01/14/18 11:00 Dose: Not Given Ranolazine (Ranexa) 500 mg PO BID [facility] Last Admin: 01/14/18 11:12 Dose: 500 mg Fluticasone/Salmeterol (Advair Diskus 250/50) 1 puff INH RQ12 [facility] Last Admin: 01/14/18 11:11 Dose: Not Given Sitagliptin Phosphate (Januvia) 25 mg PO DAILY [facility] Last Admin: 01/14/18 11:19 Dose: Not Given Tiotropium [place] (Spiriva) 18 mcg INH RQ24 [facility] Last Admin: 01/14/18 11:11 Dose: Not Given Tramadol HCl (Ultram) 50 mg PO TID PRN PRN Reason: Pain, Mild (1-3) Last Admin: 01/14/18 11:03 Dose: 50 mg Vitamin B Complex/Vit C/Folic Acid (Nephro-Karolyn) 1 tab PO Q24H [facility] Last Admin: 01/14/18 08:09 Dose: Not Given Zolpidem Tartrate (Ambien) 5 mg PO HS [facility] Last Admin: 01/13/18 22:30 Dose: Not Given - Labs Labs: 01/12/18 07:06 01/12/18 07:06 PT 17.3 SECONDS (9.7-12.2) H 12/09/17 00:22 INR 1.5 12/09/17 00:22 APTT 34 SECONDS (21-34) 12/09/17 00:22 - Constitutional Appears: Non-toxic, No Acute Distress - Head Exam Head Exam: ATRAUMATIC, NORMAL INSPECTION, NORMOCEPHALIC - Eye Exam Eye Exam: EOMI, Normal appearance, PERRL Pupil Exam: NORMAL ACCOMODATION, PERRL - ENT Exam ENT Exam: Mucous Membranes Moist, Normal Exam - Neck Exam Neck Exam: Full ROM, Normal Inspection - Respiratory Exam Respiratory Exam: Clear to Ausculation Bilateral, NORMAL BREATHING PATTERN - Cardiovascular Exam Cardiovascular Exam: REGULAR RHYTHM, RRR - GI/Abdominal Exam GI & Abdominal Exam: Soft, Tenderness, Normal Bowel Sounds. absent: Distended, Guarding, Rigid - Rectal Exam Rectal Exam: Deferred - Extremities Exam Extremities Exam: Full ROM, Normal Inspection - Back Exam Back Exam: NORMAL INSPECTION - Neurological Exam Neurological Exam: Alert, Awake, Oriented x3 - Psychiatric Exam Psychiatric exam: Normal Affect, Normal Mood - Skin Skin Exam: Dry, Intact, Normal Color, Warm Assessment and Plan - Assessment and Plan (Free Text) Assessment: Patient is a 72yo female with triple vessel CAD with prior PCI and recommendation for CABG (pt refusing intervention), peripheral vascular disease , CHF, CKD, severe pulmonary hypertension, COPD, prior CVA, DVT, breast cancer s /p chemotherapy who presented to the hospital with chest pain and abd pain. 1. Chronic abdominal pain 2. Hx of PUD 3. Severe CAD 4. COPD with pulmonary HTN 5. CKD 6. Chronic opioid use Plan: -Continue supportive care with pain control and anti-emetics -Continue bowel regimen with miralax 17g PO QD -CT A/P ordered but pt refusing -Hx of PUD, would recommended EGD and pt is agreeable for procedure tomorrow to r/o PUD -Diet as tolerated -NPO after midnight -Monitor labs -Continue to treat ongoing medical issues per primary team <Geronimo Macario - Last Filed: 01/14/18 16:24> Objective - Vital Signs/Intake and Output Vital Signs (last 24 hours): Temp Pulse Resp BP Pulse Ox 98.3 F 87 20 153/69 H 97 01/14/18 08:52 01/14/18 16:13 01/14/18 16:13 01/14/18 16:13 01/14/18 08:52 Intake and Output: 01/14/18 01/14/18 06:59 18:59 Intake Total 600 Balance 600 - Medications Medications: Current Medications Acetaminophen (Tylenol 325mg Tab) 650 mg PO Q6 PRN PRN Reason: Pain, Mild (1-3) Last Admin: 01/11/18 20:24 Dose: 650 mg Amlodipine Besylate (Norvasc) 10 mg PO QPM [facility] Last Admin: 01/13/18 18:37 Dose: 10 mg Aspirin (Aspirin Chewable) 81 mg PO DAILY [facility] Last Admin: 01/14/18 11:10 Dose: 81 mg Ergocalciferol (Drisdol 50,000 Intl Units Cap) 1 cap PO Q7D [facility] Famotidine (Pepcid) 20 mg PO DAILY [facility] Last Admin: 01/14/18 11:09 Dose: 20 mg Ferrous Gluconate (Fergon) 324 mg PO TID [facility] Last Admin: 01/14/18 14:18 Dose: 324 mg Furosemide (Lasix) 20 mg PO DAILY [facility] Last Admin: 01/14/18 11:20 Dose: 20 mg Heparin Sodium (Porcine) (Heparin) 5,000 units SC Q12 [facility] Last Admin: 01/14/18 11:18 Dose: Not Given Hydralazine HCl (Apresoline) 100 mg PO TID [facility] Last Admin: 01/14/18 14:18 Dose: 100 mg Sodium Chloride (Sodium Chloride 0.45%) 1,000 mls @ 40 mls/hr IV .Q24H [facility] Last Admin: 01/14/18 14:03 Dose: 40 mls/hr Insulin Human Regular (Novolin R) 0 unit SC ACHS [facility] PRN Reason: Protocol Last Admin: 01/14/18 07:33 Dose: Not Given Isosorbide Mononitrate (Imdur) 60 mg PO DAILY [facility] Last Admin: 01/14/18 11:11 Dose: 60 mg Metoprolol Succinate (Toprol Xl) 50 mg PO DAILY [facility] Last Admin: 01/14/18 11:09 Dose: 50 mg Morphine Sulfate (Morphine) 1 mg IVP Q4 PRN PRN Reason: Pain, moderate (4-7) Last Admin: 01/14/18 16:01 Dose: 1 mg Ondansetron HCl (Zofran Inj) 4 mg IVP Q8 PRN PRN Reason: Nausea/Vomiting Last Admin: 01/13/18 23:24 Dose: 4 mg Pantoprazole Sodium (Protonix Inj) 40 mg IVP Q12H [facility] Last Admin: 01/14/18 12:38 Dose: 40 mg Polyethylene Glycol (Miralax) 17 gm PO DAILY [facility] Last Admin: 01/14/18 11:00 Dose: Not Given Ranolazine (Ranexa) 500 mg PO BID [facility] Last Admin: 01/14/18 11:12 Dose: 500 mg Fluticasone/Salmeterol (Advair Diskus 250/50) 1 puff INH RQ12 [facility] Last Admin: 01/14/18 11:11 Dose: Not Given Sitagliptin Phosphate (Januvia) 25 mg PO DAILY [facility] Last Admin: 01/14/18 11:19 Dose: Not Given Tiotropium [place] (Spiriva) 18 mcg INH RQ24 [facility] Last Admin: 01/14/18 11:11 Dose: Not Given Tramadol HCl (Ultram) 50 mg PO TID PRN PRN Reason: Pain, Mild (1-3) Last Admin: 01/14/18 11:03 Dose: 50 mg Vitamin B Complex/Vit C/Folic Acid (Nephro-Karolyn) 1 tab PO Q24H [facility] Last Admin: 01/14/18 08:09 Dose: Not Given Zolpidem Tartrate (Ambien) 5 mg PO HS [facility] Last Admin: 01/13/18 22:30 Dose: Not Given - Labs Labs: 01/12/18 07:06 01/12/18 07:06 PT 17.3 SECONDS (9.7-12.2) H 12/09/17 00:22 INR 1.5 12/09/17 00:22 APTT 34 SECONDS (21-34) 12/09/17 00:22 Attending/Attestation - Attestation I have personally seen and examined this patient.: Yes I have fully participated in the care of the patient.: Yes I have reviewed all pertinent clinical information, including history, physical exam and plan: Yes Notes (Text): 01/14/18 16:22 Patient seen at bedside. This is a 72 yr old female with triple vessel CAD with prior PCI and now recommendation for CABG (pt refusing), peripheral vascular disease, CHF, CKD, severe pulmonary hypertension, COPD, prior CVA, DVT, breast cancer s/p chemotherapy who presented initially to the hospital with chest pain and abdominal pain. She has refused EGD/ colonoscopy in the past and abdomen CT angiogram. Given diffuse vascular disease - component of chronic mesenteric ischemia or vascular stenosis may be present supplying the intestinal tract given multiple significant comorbidities. Patient is adamant that she does not want to perform colonoscopy/ EGD. Would recommend ongoing medical therapy and treatment of her more pressing issues with regards to her ongoing pulmonary and cardiac issues with further outpatient GI evaluation to follow. If she agrees will plan on EGD in am. NPo past midnight
[2018-01-15] MEDS: Morphine 4 MG/ML VIAL IVP PRN ×4 (05:09→19:06)
[2018-01-15 07:20] LABS: MEAN CELL VOLUME 84.5 fL (81.0-99.0); MEAN CORPUSCULAR HEMOGLOBIN 28.7 pg (27.0-31.0); MEAN CORPUSCULAR HGB CONC 33.9 g/dL (33.0-37.0); MEAN PLATELET VOLUME 8.9 fL (7.2-11.7); RBC 3.48 Mil/uL (3.80-5.20); RED CELL DISTRIBUTION WIDTH 23.6 % (11.5-14.5)
[2018-01-15 07:23] LABS: WHITE BLOOD COUNT 8.6 K/uL (4.8-10.8)
[2018-01-15] MEDS: Fluticasone-Salmeterol 250-50mcg Diskus INH SCH ×2 (07:23→19:05)
[2018-01-15] MEDS: Tiotropium 18 mcg Cap For Inhalation INH SCH (07:23)
[2018-01-15 07:26] LABS: INR 1.2; PROTHROMBIN TIME 13.6 SECONDS (9.7-12.2)
[2018-01-15 07:46] LABS: ALB/GLOB RATIO 1.1 (1.0-2.1); CALCIUM 8.5 mg/dl (8.6-10.4)
[2018-01-15] MEDS: (Novolin R) Insulin Human Regular 100 units/ml vial SC SCH ×4 (08:29→21:53)
[2018-01-15] MEDS: Multivitamin Vitamin B Complex (Nephro-Vite) Tab PO SCH (08:29)
[2018-01-15] MEDS: Metoprolol Succinate 50 mg XL Tab PO SCH (09:51)
[2018-01-15] MEDS: Ranolazine 500 mg Extended Release Tablets PO SCH ×2 (09:51→19:06)
[2018-01-15] MEDS: POLYETHYLENE GLYCOL 3350 17 GM/Dose PACKET PO SCH (10:11)
--- NOTE | 2018-01-15 10:51 | CP.PCM.PN ---
Subjective - Date & Time of Evaluation Date of Evaluation: 01/15/18 Time of Evaluation: 10:51 - Subjective Subjective: Pt has severe CAD, left main disease, and is high anesthesia risk. EGD should be undertaken only for life threatening situations. Objective - Vital Signs/Intake and Output Vital Signs (last 24 hours): Temp Pulse Resp BP Pulse Ox 97.5 F L 68 20 154/74 H 95 01/15/18 07:54 01/15/18 07:54 01/15/18 07:54 01/15/18 09:51 01/15/18 07:54 Intake and Output: 01/15/18 01/15/18 06:59 18:59 Intake Total 570 Balance 570 - Medications Medications: Current Medications Acetaminophen (Tylenol 325mg Tab) 650 mg PO Q6 PRN PRN Reason: Pain, Mild (1-3) Last Admin: 01/11/18 20:24 Dose: 650 mg Amlodipine Besylate (Norvasc) 10 mg PO QPM [facility] Last Admin: 01/14/18 18:29 Dose: 10 mg Aspirin (Aspirin Chewable) 81 mg PO DAILY [facility] Last Admin: 01/15/18 09:51 Dose: 81 mg Ergocalciferol (Drisdol 50,000 Intl Units Cap) 1 cap PO Q7D [facility] Last Admin: 01/15/18 05:30 Dose: Not Given Famotidine (Pepcid) 20 mg PO DAILY [facility] Last Admin: 01/15/18 09:51 Dose: 20 mg Ferrous Gluconate (Fergon) 324 mg PO TID [facility] Last Admin: 01/15/18 09:51 Dose: 324 mg Furosemide (Lasix) 20 mg PO DAILY [facility] Last Admin: 01/15/18 09:51 Dose: 20 mg Heparin Sodium (Porcine) (Heparin) 5,000 units SC Q12 [facility] Last Admin: 01/15/18 09:49 Dose: 5,000 units Hydralazine HCl (Apresoline) 100 mg PO TID [facility] Last Admin: 01/15/18 09:51 Dose: 100 mg Sodium Chloride (Sodium Chloride 0.45%) 1,000 mls @ 40 mls/hr IV .Q24H [facility] Last Admin: 01/14/18 14:03 Dose: 40 mls/hr Insulin Human Regular (Novolin R) 0 unit SC ACHS [facility] PRN Reason: Protocol Last Admin: 01/15/18 08:29 Dose: Not Given Isosorbide Mononitrate (Imdur) 60 mg PO DAILY [facility] Last Admin: 01/15/18 09:51 Dose: 60 mg Metoprolol Succinate (Toprol Xl) 50 mg PO DAILY [facility] Last Admin: 01/15/18 09:51 Dose: 50 mg Morphine Sulfate (Morphine) 1 mg IVP Q4 PRN PRN Reason: Pain, moderate (4-7) Last Admin: 01/15/18 09:46 Dose: 1 mg Ondansetron HCl (Zofran Inj) 4 mg IVP Q8 PRN PRN Reason: Nausea/Vomiting Last Admin: 01/15/18 05:02 Dose: 4 mg Pantoprazole Sodium (Protonix Inj) 40 mg IVP Q12H [facility] Last Admin: 01/14/18 12:38 Dose: 40 mg Polyethylene Glycol (Miralax) 17 gm PO DAILY [facility] Last Admin: 01/15/18 10:11 Dose: Not Given Ranolazine (Ranexa) 500 mg PO BID [facility] Last Admin: 01/15/18 09:51 Dose: 500 mg Fluticasone/Salmeterol (Advair Diskus 250/50) 1 puff INH RQ12 [facility] Last Admin: 01/15/18 07:23 Dose: Not Given Tiotropium [place] (Spiriva) 18 mcg INH RQ24 [facility] Last Admin: 01/15/18 07:23 Dose: Not Given Tramadol HCl (Ultram) 50 mg PO TID PRN PRN Reason: Pain, Mild (1-3) Last Admin: 01/14/18 20:11 Dose: 50 mg Vitamin B Complex/Vit C/Folic Acid (Nephro-Karolyn) 1 tab PO Q24H [facility] Last Admin: 01/15/18 08:29 Dose: Not Given Zolpidem Tartrate (Ambien) 5 mg PO HS [facility] Last Admin: 01/14/18 21:36 Dose: Not Given - Labs Labs: 01/15/18 07:10 01/15/18 07:10 PT 13.6 SECONDS (9.7-12.2) H 01/15/18 07:10 INR 1.2 01/15/18 07:10 APTT 34 SECONDS (21-34) 12/09/17 00:22
[2018-01-15] MEDS: Sodium Chloride 0.45% 1,000 ML IV SCH ×2 (12:35→19:09)
--- NOTE | 2018-01-15 14:50 | CP.PCM.PN ---
<Andres Dexter - Last Filed: 01/15/18 14:46> Subjective - Date & Time of Evaluation Date of Evaluation: 01/15/18 Time of Evaluation: 06:00 - Subjective Subjective: PGY5 GI Fellow Progress Note Patient seen and examined bedside this morning. The patient was resting comfortably upon entering her room. She stated that she was willing to consider endoscopy this morning but on returning to bedside she again states that she does not want an invasive procedure and does not want to repeat this study as she has had it previously. She denies any nausea, vomiting, pain at this time. 12 system ROS performed and negative except where stated. Objective - Vital Signs/Intake and Output Vital Signs (last 24 hours): Temp Pulse Resp BP Pulse Ox 97.5 F L 80 20 106/58 L 95 01/15/18 07:54 01/15/18 14:21 01/15/18 07:54 01/15/18 14:21 01/15/18 07:54 Intake and Output: 01/15/18 01/15/18 06:59 18:59 Intake Total 570 Balance 570 - Medications Medications: Current Medications Acetaminophen (Tylenol 325mg Tab) 650 mg PO Q6 PRN PRN Reason: Pain, Mild (1-3) Last Admin: 01/11/18 20:24 Dose: 650 mg Alprazolam (Xanax) 0.25 mg PO Q8H [facility] Stop: 01/22/18 12:46 Last Admin: 01/15/18 13:29 Dose: 0.25 mg Amlodipine Besylate (Norvasc) 10 mg PO QPM [facility] Last Admin: 01/14/18 18:29 Dose: 10 mg Aspirin (Aspirin Chewable) 81 mg PO DAILY [facility] Last Admin: 01/15/18 09:51 Dose: 81 mg Ergocalciferol (Drisdol 50,000 Intl Units Cap) 1 cap PO Q7D [facility] Last Admin: 01/15/18 05:30 Dose: Not Given Famotidine (Pepcid) 20 mg PO DAILY [facility] Last Admin: 01/15/18 09:51 Dose: 20 mg Ferrous Gluconate (Fergon) 324 mg PO TID [facility] Last Admin: 01/15/18 14:22 Dose: 324 mg Furosemide (Lasix) 20 mg PO DAILY [facility] Last Admin: 04/16/18 09:51 Dose: 20 mg Heparin Sodium (Porcine) (Heparin) 5,000 units SC Q12 [facility] Last Admin: 01/15/18 09:49 Dose: 5,000 units Hydralazine HCl (Apresoline) 100 mg PO TID [facility] Last Admin: 01/15/18 14:21 Dose: Not Given Sodium Chloride (Sodium Chloride 0.45%) 1,000 mls @ 40 mls/hr IV .Q24H [facility] Last Admin: 01/15/18 12:35 Dose: Not Given Insulin Human Regular (Novolin R) 0 unit SC ACHS [facility] PRN Reason: Protocol Last Admin: 01/15/18 12:30 Dose: Not Given Isosorbide Mononitrate (Imdur) 60 mg PO DAILY [facility] Last Admin: 01/15/18 09:51 Dose: 60 mg Metoprolol Succinate (Toprol Xl) 50 mg PO DAILY [facility] Last Admin: 01/15/18 09:51 Dose: 50 mg Morphine Sulfate (Morphine) 1 mg IVP Q4 PRN PRN Reason: Pain, moderate (4-7) Last Admin: 01/15/18 14:32 Dose: 1 mg Ondansetron HCl (Zofran Inj) 4 mg IVP Q8 PRN PRN Reason: Nausea/Vomiting Last Admin: 01/15/18 05:02 Dose: 4 mg Pantoprazole Sodium (Protonix Inj) 40 mg IVP Q12H [facility] Last Admin: 01/15/18 12:30 Dose: 40 mg Polyethylene Glycol (Miralax) 17 gm PO DAILY [facility] Last Admin: 01/15/18 10:11 Dose: Not Given Ranolazine (Ranexa) 500 mg PO BID [facility] Last Admin: 01/15/18 09:51 Dose: 500 mg Fluticasone/Salmeterol (Advair Diskus 250/50) 1 puff INH RQ12 [facility] Last Admin: 01/15/18 07:23 Dose: Not Given Tiotropium [place] (Spiriva) 18 mcg INH RQ24 [facility] Last Admin: 01/15/18 07:23 Dose: Not Given Vitamin B Complex/Vit C/Folic Acid (Nephro-Karolyn) 1 tab PO Q24H [facility] Last Admin: 01/15/18 08:29 Dose: Not Given Zolpidem Tartrate (Ambien) 5 mg PO HS [facility] Last Admin: 01/14/18 21:36 Dose: Not Given - Labs Labs: 01/15/18 07:10 01/15/18 07:10 PT 13.6 SECONDS (9.7-12.2) H 01/15/18 07:10 INR 1.2 01/15/18 07:10 APTT 34 SECONDS (21-34) 12/09/17 00:22 - Constitutional Appears: No Acute Distress, Chronically Ill - Eye Exam Eye Exam: EOMI, PERRL - ENT Exam ENT Exam: Mucous Membranes Moist - Respiratory Exam Respiratory Exam: Clear to Ausculation Bilateral. absent: Rales, Rhonchi, Wheezes - Cardiovascular Exam Cardiovascular Exam: RRR, +S1, +S2 - GI/Abdominal Exam GI & Abdominal Exam: Soft, Tenderness (minimal epigastric pain), Normal Bowel Sounds. absent: Distended, Firm, Guarding, Rigid, Organomegaly - Extremities Exam Extremities Exam: Normal Inspection. absent: Pedal Edema - Neurological Exam Neurological Exam: Alert, Awake, Oriented x3 - Psychiatric Exam Psychiatric exam: Normal Affect, Normal Mood - Skin Skin Exam: Dry, Warm Assessment and Plan - Assessment and Plan (Free Text) Assessment: Patient is a 72yo female with triple vessel CAD with prior PCI and recommendation for CABG (pt refusing intervention), peripheral vascular disease , CHF, CKD, severe pulmonary hypertension, COPD, prior CVA, DVT, breast cancer s /p chemotherapy who presented to the hospital with chest pain and abd pain -Chronic abdominal pain -Severe CAD -PVD -COPD with pulmonary HTN -CKD -H/O breast cancer Plan: -Patient reiterating that she does not want invasive procedures and does not wish to have EGD performed -Moreover, patient does not have cardiac clearance for this procedure and is high risk for adverse events with anesthesia -Continue to treat patient empirically with PPI therapy -Would recommend reconsideration for cross sectional imaging if patient can tolerated -Continue Miralax 17g PO QD - titrate to 1BM/day -No further recommendations at this time <Geronimo Macario - Last Filed: 01/15/18 18:35> Objective - Vital Signs/Intake and Output Vital Signs (last 24 hours): Temp Pulse Resp BP Pulse Ox 97.5 F L 80 20 106/58 L 95 01/15/18 07:54 01/15/18 14:21 01/15/18 07:54 01/15/18 14:21 01/15/18 07:54 Intake and Output: 01/15/18 01/15/18 06:59 18:59 Intake Total 570 570 Balance 570 570 - Medications Medications: Current Medications Acetaminophen (Tylenol 325mg Tab) 650 mg PO Q6 PRN PRN Reason: Pain, Mild (1-3) Last Admin: 01/11/18 20:24 Dose: 650 mg Alprazolam (Xanax) 0.25 mg PO Q8H [facility] Stop: 01/22/18 12:46 Last Admin: 01/15/18 13:29 Dose: 0.25 mg Amlodipine Besylate (Norvasc) 10 mg PO QPM [facility] Last Admin: 01/14/18 18:29 Dose: 10 mg Aspirin (Aspirin Chewable) 81 mg PO DAILY [facility] Last Admin: 01/15/18 09:51 Dose: 81 mg Ergocalciferol (Drisdol 50,000 Intl Units Cap) 1 cap PO Q7D [facility] Last Admin: 01/15/18 05:30 Dose: Not Given Famotidine (Pepcid) 20 mg PO DAILY [facility] Last Admin: 01/15/18 09:51 Dose: 20 mg Ferrous Gluconate (Fergon) 324 mg PO TID [facility] Last Admin: 01/15/18 14:22 Dose: 324 mg Furosemide (Lasix) 20 mg PO DAILY [facility] Last Admin: 01/15/18 09:51 Dose: 20 mg Heparin Sodium (Porcine) (Heparin) 5,000 units SC Q12 [facility] Last Admin: 01/15/18 09:49 Dose: 5,000 units Hydralazine HCl (Apresoline) 100 mg PO TID [facility] Last Admin: 01/15/18 14:21 Dose: Not Given Sodium Chloride (Sodium Chloride 0.45%) 1,000 mls @ 40 mls/hr IV .Q24H [facility] Last Admin: 01/15/18 12:35 Dose: Not Given Insulin Human Regular (Novolin R) 0 unit SC ACHS [facility] PRN Reason: Protocol Last Admin: 01/15/18 12:30 Dose: Not Given Isosorbide Mononitrate (Imdur) 60 mg PO DAILY [facility] Last Admin: 01/15/18 09:51 Dose: 60 mg Metoprolol Succinate (Toprol Xl) 50 mg PO DAILY [facility] Last Admin: 01/15/18 09:51 Dose: 50 mg Morphine Sulfate (Morphine) 1 mg IVP Q4 PRN PRN Reason: Pain, moderate (4-7) Last Admin: 01/15/18 14:32 Dose: 1 mg Ondansetron HCl (Zofran Inj) 4 mg IVP Q8 PRN PRN Reason: Nausea/Vomiting Last Admin: 01/15/18 05:02 Dose: 4 mg Pantoprazole Sodium (Protonix Inj) 40 mg IVP Q12H [facility] Last Admin: 01/15/18 12:30 Dose: 40 mg Polyethylene Glycol (Miralax) 17 gm PO DAILY [facility] Last Admin: 01/15/18 10:11 Dose: Not Given Ranolazine (Ranexa) 500 mg PO BID [facility] Last Admin: 01/15/18 09:51 Dose: 500 mg Fluticasone/Salmeterol (Advair Diskus 250/50) 1 puff INH RQ12 [facility] Last Admin: 01/15/18 07:23 Dose: Not Given Tiotropium [place] (Spiriva) 18 mcg INH RQ24 [facility] Last Admin: 01/15/18 07:23 Dose: Not Given Vitamin B Complex/Vit C/Folic Acid (Nephro-Karolyn) 1 tab PO Q24H [facility] Last Admin: 01/15/18 08:29 Dose: Not Given Zolpidem Tartrate (Ambien) 5 mg PO HS [facility] Last Admin: 01/14/18 21:36 Dose: Not Given - Labs Labs: 01/15/18 07:10 01/15/18 07:10 PT 13.6 SECONDS (9.7-12.2) H 01/15/18 07:10 INR 1.2 01/15/18 07:10 APTT 34 SECONDS (21-34) 12/09/17 00:22 Attending/Attestation - Attestation I have personally seen and examined this patient.: Yes I have fully participated in the care of the patient.: Yes I have reviewed all pertinent clinical information, including history, physical exam and plan: Yes Notes (Text): 01/15/18 18:30 Patient seen at bedside. This is a 72 yr old female with triple vessel CAD with prior PCI and now recommendation for CABG (pt refusing), peripheral vascular disease, CHF, CKD, severe pulmonary hypertension, COPD, prior CVA, DVT, breast cancer s/p chemotherapy who presented initially to the hospital with chest pain and abdominal pain. She has refused EGD/ colonoscopy in the past and abdomen CT angiogram. She is still refsuing CT abdomen with IV contrast. Given diffuse vascular disease - component of chronic mesenteric ischemia or vascular stenosis may be present supplying the intestinal tract given multiple significant comorbidities. Discussed with the music store manager who did not clear her for elective anesthesia in setting of severe CAD for the endoscopic procedure. Would recommend ongoing medical therapy and treatment of her more pressing issues with regards to her ongoing pulmonary and cardiac issues with further outpatient GI evaluation to follow. Will sign off now.
--- NOTE | 2018-01-15 15:28 | PN ---
DATE: SUBJECTIVE: The patient seen for followup for his threatening behavioral problems. The patient has been screaming, very demanding, agitated, cursing profanities for the last few days. The patient is complaining of abdominal pain. She was supposed to go for EGD, but was canceled. The patient has so many demands that are at times unrealistic. MEDICATIONS: Review of her meds, the patient is on Ambien 5 mg at bedtime, has been asking morphine, but also on tramadol, which she has taken occasionally. The patient advised not to take tramadol and was started tramadol as it can cause GI upset, especially the patient is not having very good p.o. intake. We will put her back on Xanax 0.25 mg every 8 hours to keep her calm and control her anxiety. The patient is still preoccupied about going home, but waiting for the approval of her Medicaid. She states she needs oxygen at home. The patient needs to come down as her anxiety and her irritability is affecting her respiratory status. She has been sleeping well at night and taking Ambien. PHYSICAL EXAMINATION: VITAL SIGNS: Temperature 97.5, pulse 68, blood pressure 154/74, respirations 20, oxygen saturation 95%. REVIEW OF SYSTEMS: GENERAL: The patient is alert, verbal, screaming at the staff who was providing care, was very demanding, abusive, verbally, not in acute respiratory distress. SKIN: No diaphoresis. HEENT: Hard of hearing. No headache. NECK: Supple. RESPIRATORY: No dyspnea. CARDIOVASCULAR: No chest pain. GASTROINTESTINAL: Has poor p.o. intake. Complaining of abdominal pain. EXTREMITIES: The patient is moving extremities. Gait unsteady. MUSCULOSKELETAL: Feels weak. NEUROLOGIC: Alert with periods of forgetfulness. GENITOURINARY: No dysuria. MENTAL STATUS EXAMINATION: Elderly female looks stated age, oriented x2, but forgetful. Speech is loud, cursing profanities. Mood is irritable. Affect is reactive. Thought process is forgetful. Thought content, the patient is demanding morphine as well as stating that she wants to have her EGD done. No paranoia. No hallucinations. No suicidal or homicidal ideation. Attention and memory seem to be limited. Insight and judgement limited. Impulse control is guarded. IMPRESSION: Delirium, metabolic encephalopathy secondary to exacerbation of chronic obstructive pulmonary disease, as well as history of dementia with mood changes. PLAN AND RECOMMENDATIONS: The patient was seen, meds reviewed. We will continue the Ambien as ordered. Continue the morphine p.r.n. We will discontinue the tramadol as it can worsened abdominal pain. However, we will put her back on Xanax as the patient is very anxious and irritable. Review of her EKG showed the patient had prolonged QTC interval, which is 469. I suggest that the patient is not a candidate for other mood stabilizers, but for now we will just use benzodiazepines because of her EKG changes. The patient has abnormal EKG and also to consider lateral wall ischemia. For now, we will just give benzodiazepines to control anxiety. Demetrius Burdick MD MTDD
--- NOTE | 2018-01-16 01:55 | CARD ---
APPROVED REPORT EKG Measurement Heart [id number] <Conclusion> Normal sinus rhythm ST & T wave abnormality, consider lateral ischemia Prolonged QT Abnormal ECG
--- NOTE | 2018-01-16 06:28 | PN ---
DATE: 01/15/2018 SUBJECTIVE: She is not talking to me this morning. Nurses told me she slept most of the night. No problems or complaints of chest pain, shortness of breath, or abdominal pain. She does not sleep sometimes at night. PHYSICAL EXAMINATION: VITAL SIGNS: She has 97.4, temperature, 83 pulse, 132/67 blood pressure, 97% O2 saturation on 2 liters nasal cannula. HEENT: Head: Atraumatic and normocephalic. HEART: Regular rate. LUNGS: Decreased breath sounds. Clear to auscultation. ABDOMEN: Soft, nontender, positive bowel sounds. EXTREMITIES: No edema. LABORATORY DATA: The last lab she had was on 01/12/2018 and she did well. Her blood sugar was 124. She stopped the Januvia as the blood sugars were in the 50s. I called in GI who offered an upper endoscopy this morning, still having a plan right now. I do not think she is going to allow it to happen. ASSESSMENT AND PLAN: She denies any here for a big history, coronary artery disease, for which she has had coronary artery bypass graft, peripheral vascular disease, congestive heart failure, chronic kidney disease, history of pulmonary hypertension, chronic obstructive pulmonary disease, cerebrovascular accident, deep venous thrombosis, breast cancer history, status post chemotherapy. Still smokes when she gets a chance. Chronic abdominal pain, history of peripheral vascular disease, esophagogastroduodenoscopy this morning. n.p.o. In fact, she refused. Await placement with social service, case management and insurance. John Brown DO MTDJeaneth
[2018-01-16] MEDS: Fluticasone-Salmeterol 250-50mcg Diskus INH SCH ×2 (07:50→20:47)
[2018-01-16] MEDS: Tiotropium 18 mcg Cap For Inhalation INH SCH (07:51)
[2018-01-16] MEDS: (Novolin R) Insulin Human Regular 100 units/ml vial SC SCH ×4 (07:57→21:18)
[2018-01-16] MEDS: Multivitamin Vitamin B Complex (Nephro-Vite) Tab PO SCH (08:48)
[2018-01-16] MEDS: Morphine 4 MG/ML VIAL IVP PRN ×3 (10:31→20:25)
[2018-01-16] MEDS: Metoprolol Succinate 50 mg XL Tab PO SCH (10:34)
[2018-01-16] MEDS: Ranolazine 500 mg Extended Release Tablets PO SCH ×2 (10:35→18:18)
--- NOTE | 2018-01-16 11:03 | PN ---
DATE: SUBJECTIVE: I saw her resting comfortably in bed. She slept well. I could not take her for her endoscopy yesterday because she was too much of a cardiac risk and was not cleared. She is comfortable this morning in bed. She wants to go home. She is on Advair, Ambien, Apresoline, aspirin, Drisdol, Fergon, heparin, Imdur, Lasix, MiraLAX, morphine, Nephro-Karolyn, Norvasc, Novolin, Pepcid, Protonix, Ranexa, IV fluids, Spiriva, Toprol, Tylenol, Xanax, and Zofran. PHYSICAL EXAMINATION: VITAL SIGNS: She has a 98 temp, 75 pulse, 128/65 blood pressure, 20 respiratory rate, 95% O2 saturation on 2 L nasal cannula. HEENT: Head is atraumatic, normocephalic. HEART: Regular rate. LUNGS: Decreased breath sounds, but clear. ABDOMEN: Soft, nontender. EXTREMITIES: No edema. LABORATORY DATA: Last labs on 01/15/2018, she has 8.6 white count, 10 hemoglobin, 29.4 hematocrit, 57 platelets. She has 134 sodium, potassium 4.1, BUN 26, creatinine 1.1, GFR is 49, sugar is 108, calcium is 8.5, AST is 11, ALT is 8, alkaline phosphatase 41, total protein is 5.8. Kidney functions are better. ASSESSMENT AND PLAN: She is following directions she tells me. She could not get the endoscopy, awaiting for social worker health services, Case Management to find safe discharge plan for her. She has multiple issues. Congestive heart failure, chronic obstructive pulmonary disease, constipation, severe coronary artery disease, acute kidney injury, and abdominal pain. John Brown DO
--- NOTE | 2018-01-16 12:44 | PN ---
DATE: SUBJECTIVE: The patient is seen. The patient is much calmer, but her oxygen saturation is going down and seems to be hypoxic. She is less irritable, but feels verbally abusive at times. I want to change the Xanax to 0.25 every 8 hours p.r.n. instead of standing. PHYSICAL EXAMINATION: VITAL SIGNS: Temperature is 98.4, pulse 86, blood pressure 132/64, respirations 20, and oxygen saturation is 91% on nasal cannula. REVIEW OF SYSTEMS: GENERAL: The patient is seen, still irritable, but re-directable. Not in acute respiratory distress and continues oxygen treatment. SKIN: No diaphoresis. HEENT: Still hard of hearing. No headache. NECK: Supple. RESPIRATORY: Not in acute respiratory distress. CARDIOVASCULAR: No chest pain. GASTROINTESTINAL: She is eating. EXTREMITIES: Complaining of back pain. MUSCULOSKELETAL: Feels weak. NEUROLOGIC: Alert with periods of confusion. GENITOURINARY: No dysuria. MENTAL STATUS EXAMINATION: Elderly female,who looks stated age, less irritable and [place] today. Speech is still at times verbally abusive. Affect is reactive. Thought process is forgetful. Thought content, she was seen today, she had chest x-ray. She was screaming at the staff. No paranoia or hallucinations. No suicidal or homicidal ideation. Attention and memory seem to be limited. Insight and judgement limited. Impulse control is guarded at this time. IMPRESSION: Delirium, metabolic encephalopathy secondary to exacerbation of chronic obstructive pulmonary disease, as well as dementia with mood changes, history of congestive heart failure, urinary tract infections. PLAN AND RECOMMENDATIONS: The patient is seen, meds reviewed. We will change the Xanax standing to Xanax 0.25 every 8 hours p.r.n. for anxiety. Continue morphine p.r.n. as ordered. Continue treatment plan as outlined. The patient is awaiting approval of her Medicaid. For now, the patient is unsafe to be discharged to home alone without 24-hour help. Demetrius Burdick MD
[2018-01-16] MEDS: POLYETHYLENE GLYCOL 3350 17 GM/Dose PACKET PO SCH (13:55)
[2018-01-16 14:47] LABS: SQUAMOUS EPITHIAL 5 /hpf (0-5); URINE BILIRUBIN NEGATIVE (NEGATIVE); URINE BLOOD NEGATIVE (NEGATIVE); URINE CLARITY Hazy (Clear); URINE COLOR Yellow (YELLOW); URINE GLUCOSE (UA) NORMAL (Normal); URINE LEUKOCYTE ESTERASE NEG Leu/uL (Negative); URINE PROTEIN 2+ mg/dL (NEGATIVE); URINE UROBILINOGEN NORMAL mg/dL (0.2-1.0)
--- NOTE | 2018-01-16 15:20 | RAD ---
HISTORY: Shortness of breath, hypoxia. COMPARISON: 12/09/2017. TECHNIQUE: Chest PA and lateral FINDINGS: LUNGS: Worsening pulmonary edema. PLEURA: Small bilateral pleural effusions. CARDIOVASCULAR: Cardiomegaly/congestive heart failure with worsening pulmonary edema. OSSEOUS STRUCTURES: No significant abnormalities. VISUALIZED UPPER ABDOMEN: Normal. OTHER FINDINGS: None. IMPRESSION: Worsening pulmonary edema compared to the prior study 12/09/2017.
[2018-01-17] MEDS: Morphine 4 MG/ML VIAL IVP PRN ×5 (04:59→23:38)
[2018-01-17] MEDS: Multivitamin Vitamin B Complex (Nephro-Vite) Tab PO SCH (06:49)
[2018-01-17] MEDS: Tiotropium 18 mcg Cap For Inhalation INH SCH (08:04)
[2018-01-17] MEDS: Fluticasone-Salmeterol 250-50mcg Diskus INH SCH ×2 (08:04→19:12)
[2018-01-17] MEDS: (Novolin R) Insulin Human Regular 100 units/ml vial SC SCH ×3 (08:26→17:06)
[2018-01-17] MEDS ORDERED: Albuterol-Ipratrop 3 mg / 0.5 (3 ml) UD INH STA (08:33)
[2018-01-17] MEDS: Ranolazine 500 mg Extended Release Tablets PO SCH ×2 (09:02→18:29)
[2018-01-17] MEDS: Metoprolol Succinate 50 mg XL Tab PO SCH (09:02)
[2018-01-17] MEDS: POLYETHYLENE GLYCOL 3350 17 GM/Dose PACKET PO SCH (09:06)
[2018-01-17] MEDS ORDERED: Morphine 4 MG/ML VIAL IVP STA (10:56)
--- NOTE | 2018-01-17 10:56 | PN ---
DATE: SUBJECTIVE: I saw her resting comfortably in bed. She was sleeping this morning. She tells me she has abdominal pain from time to time. She was supposed to get scoped, but she was not medically cleared by Cardiology due to severe coronary artery disease. She is on Advair, Ambien, Apresoline, chewable aspirin, Drisdol, Fergon, heparin, Imdur, Lasix, MiraLAX, morphine, Nephro-Karolyn, Norvasc, Novolin, Pepcid, Protonix, Ranexa, Spiriva, Toprol, Tylenol, Xanax, and Zofran. PHYSICAL EXAMINATION: VITAL SIGNS: She has a 98.7 temp, 92 pulse, 150/79 blood pressure, 18 respiratory rate, and 91% O2 saturation on 3 L nasal cannula. HEENT: Head is atraumatic, normocephalic. HEART: Regular rate. LUNGS: Decreased breath sounds, but clear. ABDOMEN: Soft, nontender, positive bowel sounds. EXTREMITIES: No edema. She is very thin and frail. LABORATORY DATA: She had labs on 01/15/2018, she has an 8.6 white count, 10 hemoglobin, 29.4 hematocrit, with 210 platelets. She has 134 sodium, potassium 4.1, BUN 26, creatinine 1.1, GFR is 49, last blood sugar was 82, calcium is 8.5, total bili is 0.6, AST is 11, ALT is 8, alk phos is 41. ASSESSMENT AND PLAN: We are waiting for Case Management and social media manager and insurance companies to get together to get her to have placement, do a chest x-ray during the day, worsening pulmonary edema compared to the prior study. I will adjust her IV fluids and hopefully that will help her. We are still waiting for her insurance change and placement. Congestive heart failure, chronic obstructive pulmonary disease, abdominal pain, and dementia. John Brown DO
--- NOTE | 2018-01-17 11:16 | CP.PCM.PN ---
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 Hypertension control with meds as ordered. 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 Monitor Input/Output, daily weights and renal function with basic metabolic panel supplement electrolytes as needed continue with iron supplement, MVI and weekly Vit D continue with diuretics but increase to lasix 40 mg/day. she had received IV lasix 20 mg x 2 doses 01/17/18 Dose meds/antibiotics for improved GFR. Avoid fleets enema/magnesium based laxatives. Avoid nephrotoxins/NSAIDs Glycemic control Further work up/management as per primary team. Thanks for allowing me to participate in care of your patient. Please call if any Qs. Dr Shiraz Husain Office: [phone] reason for consult: ETHEL HPI: Pt is a 72 F with hx of diabetes Mellitus (years), hypertension (many years ), CAD s/p stent, PVD s/p iliac stent, Rt renal artery stenosis 60%, Ca breast s /p chemo presented with complaints of chest pain and SOB, managed for CHF and NSTEMI in past, reported heavy use of NSAIDs as naproxen, up to 10 tab/day for months probably has baseline CKD with cr 1.0-1.2 with intermittent AKIs ROS: She is irritable. wants to go home. denies short of breath. remains un- coperative. says "Just go away". She wants more morphine. Physical Examination: General Appearance: in no acute respiratory distress , upset Vitals reviewed and noted as below Head; Atraumatic, normocephalic Lungs: Normal respiratory rate/effort. Breath sounds bilateral with crackles Heart: Normal rate. s1s2 normal. No rub or gallop. Extremities: no edema. No varicose veins Neurological: Patient is Awake alert Moving all 4 extremities. Abdomen: not coperative Psych: Limited insight. Patient is often very irritable. MSK: not coperative : not coperative Labs/imaging reviewed. Past medical history, past surgical history, family history, social history, allergy reviewed and noted as below Family hx: no hx of CKD. Rest non-contributory sono jun 2017: simple cyst. previous CT showed stable complex cyst left kidney echo; moderate to severe TR SPEP/AMY neg, serum FLC assay WNL. Vit D <12.8 PTH 168 TSAT 4% Ferritin 19 Hep B and C neg Objective - Vital Signs/Intake and Output Vital Signs (last 24 hours): Temp Pulse Resp BP Pulse Ox 98.4 F 93 H 20 144/69 92 L 01/17/18 08:49 01/17/18 08:49 01/17/18 08:49 01/17/18 08:52 01/17/18 08:49 Intake and Output: 01/17/18 01/17/18 06:59 18:59 Intake Total 318 Balance 318 - Medications Medications: Current Medications Acetaminophen (Tylenol 325mg Tab) 650 mg PO Q6 PRN PRN Reason: Pain, Mild (1-3) Last Admin: 01/11/18 20:24 Dose: 650 mg Albuterol/Ipratropium (Duoneb 3 Mg/0.5 Mg (3 Ml) Ud) 3 ml INH RQ6 FELIPE Alprazolam (Xanax) 0.25 mg PO Q8H PRN PRN Reason: Anxiety Stop: 01/23/18 10:16 Amlodipine Besylate (Norvasc) 10 mg PO QPM [facility] Last Admin: 01/16/18 18:18 Dose: 10 mg Aspirin (Aspirin Chewable) 81 mg PO DAILY [facility] Last Admin: 01/17/18 09:02 Dose: 81 mg Ergocalciferol (Drisdol 50,000 Intl Units Cap) 1 cap PO Q7D [facility] Last Admin: 01/15/18 05:30 Dose: Not Given Famotidine (Pepcid) 20 mg PO DAILY [facility] Last Admin: 01/17/18 09:02 Dose: 20 mg Ferrous Gluconate (Fergon) 324 mg PO TID [facility] Last Admin: 01/17/18 09:02 Dose: 324 mg Furosemide (Lasix) 40 mg PO DAILY [facility] Heparin Sodium (Porcine) (Heparin) 5,000 units SC Q12 [facility] Last Admin: 01/17/18 09:06 Dose: Not Given Hydralazine HCl (Apresoline) 100 mg PO TID [facility] Last Admin: 01/17/18 09:02 Dose: 100 mg Insulin Human Regular (Novolin R) 0 unit SC ACHS [facility] PRN Reason: Protocol Last Admin: 01/17/18 08:26 Dose: Not Given Isosorbide Mononitrate (Imdur) 60 mg PO DAILY [facility] Last Admin: 01/17/18 09:02 Dose: 60 mg Metoprolol Succinate (Toprol Xl) 50 mg PO DAILY [facility] Last Admin: 01/17/18 09:02 Dose: 50 mg Morphine Sulfate (Morphine) 1 mg IVP Q4 PRN PRN Reason: Pain, moderate (4-7) Last Admin: 01/17/18 09:26 Dose: 1 mg Ondansetron HCl (Zofran Inj) 4 mg IVP Q8 PRN PRN Reason: Nausea/Vomiting Last Admin: 01/15/18 05:02 Dose: 4 mg Pantoprazole Sodium (Protonix Inj) 40 mg IVP Q12H [facility] Last Admin: 01/17/18 00:47 Dose: Not Given Polyethylene Glycol (Miralax) 17 gm PO DAILY [facility] Last Admin: 01/17/18 09:06 Dose: Not Given Ranolazine (Ranexa) 500 mg PO BID [facility] Last Admin: 01/17/18 09:02 Dose: 500 mg Fluticasone/Salmeterol (Advair Diskus 250/50) 1 puff INH RQ12 [facility] Last Admin: 01/17/18 08:04 Dose: Not Given Tiotropium [place] (Spiriva) 18 mcg INH RQ24 [facility] Last Admin: 01/17/18 08:04 Dose: 18 mcg Vitamin B Complex/Vit C/Folic Acid (Nephro-Karolyn) 1 tab PO Q24H [facility] Last Admin: 01/17/18 06:49 Dose: 1 tab Zolpidem Tartrate (Ambien) 5 mg PO HS [facility] Last Admin: 01/16/18 21:57 Dose: 5 mg - Labs Labs: 01/15/18 07:10 01/15/18 07:10 PT 13.6 SECONDS (9.7-12.2) H 01/15/18 07:10 INR 1.2 01/15/18 07:10 APTT 34 SECONDS (21-34) 12/09/17 00:22
[2018-01-17] MEDS: Albuterol-Ipratrop 3 mg / 0.5 (3 ml) UD INH SCH ×2 (13:11→19:12)
--- NOTE | 2018-01-17 17:34 | PN ---
DATE: SUBJECTIVE: The patient is seen. The patient is very irritable, screaming, verbally abusive today, demanding for tramadol. The patient was told that because of her p.o. poor p.o. intake, tramadol can worsen her stomach problem, but insisting. She is taking currently morphine p.r.n., which she is denying that she is not getting as well as given Xanax p.r.n. Xanax has been put on p.r.n. as the patient seems to desaturate easily. The patient at the time needs 24-hour care, can be discharged to home due to medical problems as well as the patient has problems with dementia. PHYSICAL EXAMINATION: VITAL SIGNS: Temperature is 98.4, pulse rate is 85, blood pressure 163/66, respirations 20, oxygen saturation is 90% on nasal cannula. REVIEW OF SYSTEMS: GENERAL: The patient is alert, verbal, but very irritable, screaming, not in acute respiratory distress. The patient to continue with oxygen treatment. SKIN: No diaphoresis. HEENT: Hard of hearing. No headache. NECK: Supple. RESPIRATORY: Has chronic dyspnea. CARDIOVASCULAR: No palpitations. GASTROINTESTINAL: Appetite is poor. Complaining of abdominal pain. MUSCULOSKELETAL: Has chronic back pain. EXTREMITIES: The patient has unsteady gait. NEURO: Alert with periods of confusion. GENITOURINARY: No urinary problems. MENTAL STATUS EXAMINATION: Elderly female who looks stated age, very irritable and anxious. Speech is loud. Affect is reactive. Mood is irritable. Thought process, forgetful. Thought content, the patient is demanding tramadol p.r.n., but told that she can have it because of her GI problems. No paranoia. No suicidal or homicidal ideation. The patient is again demanding discharge. The patient is unsafe to be discharged to home without 24-hour care. I did tell her that she is awaiting for approval for Medicaid. Attention and memory still limited. Insight and judgment limited. Impulse control is guarded at this time. IMPRESSION: History of delirium, metabolic encephalopathy secondary to exacerbation of congestive heart failure as well as history of dementia with mood changes, history of urinary tract infection, gastritis, history of chronic obstructive pulmonary disease. PLAN AND RECOMMENDATIONS: The patient seen, meds reviewed. We will continue present management. The patient advised not to have tramadol and that she have morphine p.r.n. The patient is unsafe for discharge at this time to home without 24-hour care. Demetrius Burdick MD
[2018-01-18] MEDS: Albuterol-Ipratrop 3 mg / 0.5 (3 ml) UD INH SCH ×4 (01:51→19:16)
[2018-01-18] MEDS: Multivitamin Vitamin B Complex (Nephro-Vite) Tab PO SCH (06:46)
[2018-01-18] MEDS: Fluticasone-Salmeterol 250-50mcg Diskus INH SCH ×2 (07:36→19:16)
[2018-01-18] MEDS: (Novolin R) Insulin Human Regular 100 units/ml vial SC SCH ×4 (07:45→21:42)
[2018-01-18] MEDS: Tiotropium 18 mcg Cap For Inhalation INH SCH (08:25)
--- NOTE | 2018-01-18 09:29 | PN ---
DATE: SUBJECTIVE: She was in one of her moods this morning again. Yesterday was better than today. She is upset with everything. MEDICATIONS: She is on Advair, Ambien, Apresoline, aspirin, Drisdol, DuoNeb, Fergon, heparin, Imdur, Lasix, MiraLAX, morphine, Nephro-Kraolyn, Norvasc, Novolin, Pepcid, Protonix, Ranexa, Spiriva, Toprol, Tylenol, Xanax, and Zofran. PHYSICAL EXAMINATION: VITAL SIGNS: She has a 98.2 temp, 82 pulse, 139/70 blood pressure, 20 respiratory rate, and 96% O2 saturation on 4 L. HEENT: Head is atraumatic, normocephalic. HEART: Regular rate. LUNGS: Decreased breath sounds, but clear. ABDOMEN: Soft, positive bowel sounds. EXTREMITIES: No edema. LABORATORY DATA: Last lab was on 01/15/2018, CBC was okay. Chemistry was not done on 01/15/2018, CBC was. Last blood sugar was 124. ASSESSMENT AND PLAN: She is being seen by Psychiatry and Renal. She had chest x-ray on 01/16/2018. She was also seen by GI. There is some worsening pulmonary edema on the chest x-ray. That is why I increased her Lasix to 40 mg from 20 mg. Still waiting for social worker school, case management to arrange insurance changes, and get her to a safe discharge as per Psychiatry and Renal. She has congestive heart failure, chronic obstructive pulmonary disease, coronary artery disease which is severe, [id number] myocardial infarction, and diabetic chronic kidney disease. John Brown DO MTDD
[2018-01-18] MEDS: POLYETHYLENE GLYCOL 3350 17 GM/Dose PACKET PO SCH (09:32)
[2018-01-18] MEDS: Ranolazine 500 mg Extended Release Tablets PO SCH ×2 (09:33→17:12)
[2018-01-18] MEDS: Metoprolol Succinate 50 mg XL Tab PO SCH (09:33)
[2018-01-18] MEDS: Morphine 4 MG/ML VIAL IVP PRN ×3 (11:09→19:55)
[2018-01-18 13:55] LABS: HEMOGLOBIN 10.6 g/dL (11.0-16.0); MEAN CELL VOLUME 85.2 fL (81.0-99.0); MEAN CORPUSCULAR HEMOGLOBIN 28.9 pg (27.0-31.0); MEAN PLATELET VOLUME 9.2 fL (7.2-11.7); RBC 3.66 Mil/uL (3.80-5.20); RED CELL DISTRIBUTION WIDTH 23.9 % (11.5-14.5); WHITE BLOOD COUNT 8.6 K/uL (4.8-10.8)
[2018-01-18 14:14] LABS: ALB/GLOB RATIO 1.2 (1.0-2.1); ALBUMIN 3.2 g/dL (3.5-5.0); CALCIUM 8.6 mg/dl (8.6-10.4)
--- NOTE | 2018-01-18 14:25 | CP.PCM.PN ---
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 Hypertension control with meds as ordered. 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 Monitor Input/Output, daily weights and renal function with basic metabolic panel supplement electrolytes as needed continue with iron supplement, MVI and weekly Vit D continue with diuretics as lasix 40 mg/day. an give lasix IV prn in addition, if needed. Dose meds/antibiotics for improved GFR. Avoid fleets enema/magnesium based laxatives. Avoid nephrotoxins/NSAIDs Glycemic control Further work up/management as per primary team. Thanks for allowing me to participate in care of your patient. Please call if any Qs. Dr Shiraz Husain Office: [phone] reason for consult: ETHEL HPI: Pt is a 72 F with hx of diabetes Mellitus (years), hypertension (many years ), CAD s/p stent, PVD s/p iliac stent, Rt renal artery stenosis 60%, Ca breast s /p chemo presented with complaints of chest pain and SOB, managed for CHF and NSTEMI in past, reported heavy use of NSAIDs as naproxen, up to 10 tab/day for months probably has baseline CKD with cr 1.0-1.2 with intermittent AKIs ROS: She is irritable. wants to go home. denies short of breath. remains un- coperative. says "I am fine, Just go". Physical Examination: General Appearance: in no acute respiratory distress , upset Vitals reviewed and noted as below Head; Atraumatic, normocephalic Lungs: Normal respiratory rate/effort. Breath sounds bilateral with crackles Heart: Normal rate. s1s2 normal. No rub or gallop. Extremities: no edema. No varicose veins Neurological: Patient is Awake alert Moving all 4 extremities. Abdomen: not coperative Psych: Limited insight. Patient is often very irritable. MSK: not coperative : not coperative Labs/imaging reviewed. Past medical history, past surgical history, family history, social history, allergy reviewed and noted as below Family hx: no hx of CKD. Rest non-contributory sono jun 2017: simple cyst. previous CT showed stable complex cyst left kidney echo; moderate to severe TR SPEP/AMY neg, serum FLC assay WNL. Vit D <12.8 PTH 168 TSAT 4% Ferritin 19 Hep B and C neg Objective - Vital Signs/Intake and Output Vital Signs (last 24 hours): Temp Pulse Resp BP Pulse Ox 97.8 F 79 20 134/68 91 L 01/18/18 09:25 01/18/18 11:08 01/18/18 11:08 01/18/18 11:08 01/18/18 11:08 Intake and Output: 01/18/18 01/18/18 06:59 18:59 Intake Total 150 Balance 150 - Medications Medications: Current Medications Acetaminophen (Tylenol 325mg Tab) 650 mg PO Q6 PRN PRN Reason: Pain, Mild (1-3) Last Admin: 01/18/18 03:18 Dose: 650 mg Albuterol/Ipratropium (Duoneb 3 Mg/0.5 Mg (3 Ml) Ud) 3 ml INH RQ6 [facility] Last Admin: 01/18/18 07:36 Dose: Not Given Alprazolam (Xanax) 0.25 mg PO Q8H PRN PRN Reason: Anxiety Stop: 01/23/18 10:16 Amlodipine Besylate (Norvasc) 10 mg PO QPM [facility] Last Admin: 01/17/18 18:29 Dose: 10 mg Aspirin (Aspirin Chewable) 81 mg PO DAILY [facility] Last Admin: 01/18/18 09:33 Dose: 81 mg Ergocalciferol (Drisdol 50,000 Intl Units Cap) 1 cap PO Q7D [facility] Last Admin: 01/15/18 05:30 Dose: Not Given Famotidine (Pepcid) 20 mg PO DAILY [facility] Last Admin: 01/18/18 09:33 Dose: 20 mg Ferrous Gluconate (Fergon) 324 mg PO TID [facility] Last Admin: 01/18/18 09:33 Dose: 324 mg Furosemide (Lasix) 40 mg PO DAILY [facility] Last Admin: 01/18/18 09:33 Dose: 40 mg Heparin Sodium (Porcine) (Heparin) 5,000 units SC Q12 [facility] Last Admin: 01/18/18 09:32 Dose: 5,000 units Hydralazine HCl (Apresoline) 100 mg PO TID [facility] Last Admin: 01/18/18 09:33 Dose: 100 mg Insulin Human Regular (Novolin R) 0 unit SC ACHS [facility] PRN Reason: Protocol Last Admin: 01/18/18 12:43 Dose: 2 unit Isosorbide Mononitrate (Imdur) 60 mg PO DAILY [facility] Last Admin: 01/18/18 09:33 Dose: 60 mg Metoprolol Succinate (Toprol Xl) 50 mg PO DAILY [facility] Last Admin: 01/18/18 09:33 Dose: 50 mg Morphine Sulfate (Morphine) 1 mg IVP Q4 PRN PRN Reason: Pain, moderate (4-7) Last Admin: 01/18/18 11:09 Dose: 1 mg Ondansetron HCl (Zofran Inj) 4 mg IVP Q8 PRN PRN Reason: Nausea/Vomiting Last Admin: 01/18/18 09:17 Dose: 4 mg Pantoprazole Sodium (Protonix Inj) 40 mg IVP Q12H [facility] Last Admin: 01/18/18 12:30 Dose: 40 mg Polyethylene Glycol (Miralax) 17 gm PO DAILY [facility] Last Admin: 01/18/18 09:32 Dose: Not Given Ranolazine (Ranexa) 500 mg PO BID [facility] Last Admin: 01/18/18 09:33 Dose: 500 mg Fluticasone/Salmeterol (Advair Diskus 250/50) 1 puff INH RQ12 [facility] Last Admin: 01/18/18 07:36 Dose: Not Given Tiotropium [place] (Spiriva) 18 mcg INH RQ24 [facility] Last Admin: 01/18/18 08:25 Dose: Not Given Vitamin B Complex/Vit C/Folic Acid (Nephro-Karolyn) 1 tab PO Q24H [facility] Last Admin: 01/18/18 06:46 Dose: 1 tab Zolpidem Tartrate (Ambien) 5 mg PO HS [facility] Last Admin: 01/17/18 21:41 Dose: 5 mg - Labs Labs: 01/18/18 13:48 01/18/18 13:48 PT 13.6 SECONDS (9.7-12.2) H 01/15/18 07:10 INR 1.2 01/15/18 07:10 APTT 34 SECONDS (21-34) 12/09/17 00:22
[2018-01-18] MEDS ORDERED: Cefepime 1 GM in Sodium Chloride 0.9% 50 ML IVPB SCH (15:45)
--- NOTE | 2018-01-18 19:05 | CP.PCM.CON ---
History of Present Illness - History of Present Illness History of Present Illness: 72 year old female with history of CVA, severe CAD , CKD presenting with abd pain and fever Found to have UTI started on IV antibiotics ROS: A 12pt ROS was negative except as above PmHx: with history of CVA, TIA, CAD, NE s/p PCI, PVD s/p R iliac stent, Breast Cancer s/p lumpectomy with chemoradiation, dCHF EF 60-65% 09/2016, Hypertension , Hyperlipidemia, Fall s/p Right hip replacement with resultant chronic hip pain PsHx: As stated in HPI SHx: Hx of tobacco use, denies etoh or drugs FHx: denies colon ca Review of Systems - Review of Systems All systems: reviewed and no additional remarkable complaints except - Constitutional Constitutional: As Per HPI - EENT Eyes: absent: As Per HPI, Blind Spots, Blurred Vision, Change in Vision, Decreased Night Vision, Diplopia, Discharge, Dry Eye, Exophthalmos, Floaters, Irritation, Itchy Eyes, Loss of Peripheral Vision, Pain, Photophobia, Requires Corrective Lenses, Sees Flashes, Spots in Vision, Tunnel Vision, Other Visual Disturbances, Loss of Vision, Other Ears: absent: As Per HPI, Decreased Hearing, Ear Discharge, Ear Pain, Tinnitus, Abnormal Hearing, Disequilibrium, Dizziness, Other Nose/Mouth/Throat: absent: As Per HPI, Epistaxis, Nasal Congestion, Nasal Discharge, Nasal Obstruction, Nasal Trauma, Nose Pain, Post Nasal Drip, Sinus Pain, Sinus Pressure, Bleeding Gums, Change in Voice, Dental Pain, Dry Mouth, Dysphagia, Halitosis, Hoarsness, Lip Swelling, Mouth Lesions, Mouth Pain, Odynophagia, Sore Throat, Throat Swelling, Tongue Swelling, Facial Pain, Neck Pain, Neck Mass, Other - Breasts Breasts: absent: As Per HPI, Change in Shape, Mass, Pain, Nipple Discharge, Nipple Inversion, Skin Changes, Swelling, Other - Cardiovascular Cardiovascular: absent: As Per HPI, Acrocyanosis, Chest Pain, Chest Pain at Rest , Chest Pain with Activity, Claudication, Diaphoresis, Dyspnea, Dyspnea on Exertion, Edema, Irregular Heart Rhythm, Pain Radiating to Arm/Neck/Jaw, Leg Edema, Leg Ulcers, Lightheadedness, Orthopnea, Palpitations, Paroxysmal Nocturnal Dyspnea, Pedal Edema, Radiating Pain, Rapid Heart Rate, Slow Heart Rate, Syncope, Other - Respiratory Respiratory: absent: As Per HPI, Cough, Dyspnea, Hemoptysis, Dyspnea on Exertion , Wheezing, Snoring, Stridor, Pain on Inspiration, Chest Congestion, Excessive Mucous Production, Change in Mucous Color, Pain with Coughing, Other - Gastrointestinal Gastrointestinal: As Per HPI, Abdominal Pain - Genitourinary Genitourinary: absent: As Per HPI, Change in Urinary Stream, Difficulty Urinating, Dysuria, Flank Pain, Hematuria, Pyuria, Nocturia, Urinary Incontinence, Urinary Frequency, Urinary Hesitance, Urinary Urgency, Voiding Freq/Small Amts, Freq UTI, Hx Renal/Bladder Calculi, Hx /Renal Surgery, Bladder Distension, Other - Reproductive: Female Reproductive:Female: absent: As Per HPI, Amenorrhea, Amenorrhea/ Control, Currently Menstual, Cycle <21 Days, Cycle >35 Days, Cycle Variable, Menses 1-7 Days, Menses >/= 8 Days, Menses Variable, Cycle > 4 Weeks Between, No Menses for 6 Months, Heavy Menses, Light Menses, Normal Menses, Spotting Between Cycles , S/P Hysterectomy, Menopausal, Post Menopausal, Premenarche, Abnormal Vaginal Bleeding, Dysmenorrhea, Dyspareunia, Genital Lesions, Genital Pruritis, Pelvic Pain, Prolapse Symptoms, Sexual Dysfunction, Vaginal Discharge, Vaginal Dryness , Vaginal Odor, Vaginal Pruritis, Other - Menstruation Menstruation: absent: As Per HPI, Amenorrhea, Amenorrhea/ Control, Currently Menstual, Cycle <21 Days, Cycle >35 Days, Cycle Variable, Menses 1-7 Days, Menses >/= 8 Days, Menses Variable, Cycle > 4 Weeks Between, No Menses for 6 Months, Heavy Menses, Light Menses, Normal Menses, Spotting Between Cycles , S/P Hysterectomy, Menopausal, Post Menopausal, Premenarche, Abnormal Vaginal Bleeding, Dysmenorrhea, Other - Musculoskeletal Musculoskeletal: absent: As Per HPI, Abnormal Gait, Arthralgias, Atrophy, Back Pain, Deformity, Joint Swelling, Limited Range of Motion, Loss of Height, Muscle Cramps, Muscle Weakness, Myalgias, Neck Pain, Numbness, Radiating Pain into Limb, Stiffness, Tingling, Other - Integumentary Integumentary: absent: As Per HPI, Acne, Alopecia, Bleeding Lesions, Change in Hair, Change in Nails, Change in Pigmentation, Changing Lesions, Dry Skin, Erythema, Furuncle, Hirsutism, Lesions, New Lesions, Non-Healing Lesions, Photosensitivity, Pruritus, Rash, Skin Pain, Skin Ulcer, Sores, Striae, Swelling , Unusual Bruising, Wounds, Jaundice, Other - Neurological Neurological: absent: As Per HPI, Abnormal Gait, Abnormal Hearing, Abnormal Movements, Abnormal Speech, Behavioral Changes, Burning Sensations, Confusion, Convulsions, Disequilibrium, Dizziness, Numbness, Focal Weakness, Frequent Falls , Headaches, Lack of Coordination, Loss of Vision, Memory Loss, Paresthesias, Radicular Pain, Restless Legs, Sensory Deficit, Syncope, Tingling, Tremor, Vertigo, Weakness, Other Visual Disturbances, Other - Psychiatric Psychiatric: absent: As Per HPI, Abnormal Sleep Pattern, Anhedonia, Anxiety, Auditory Hallucinations, Behavioral Changes, Change in Appetite, Change in Libido, Confusion, Depression, Difficulty Concentrating, Hallucinations, Homicidal Ideation, Hopelessness, Irritability, Memory Loss, Mood Swings, Panic Attacks, Paranoia, Suicidal Ideation, Visual Hallucinations, Tactile Hallucinations, Other - Endocrine Endocrine: absent: As Per HPI, Change in Body Appearance, Change in Libido, Cold Intolorance, Deepening of Voice, Excessive Sweating, Fatigue, Flushing, Heat Intolorance, Increase in Ring/Shoe/Hat Size, Palpitations, Polydipsia, Polyphagia, Polyuria, Other Past Patient History - Infectious Disease Hx of Infectious Diseases: None - Tetanus Immunizations Tetanus Immunization: Unknown - Past Medical History & Family History Past Medical History?: Yes - Past Social History Smoking Status: Former Smoker - CARDIAC Hx Cardiac Disorders: Yes (CHF) Hx Congestive Heart Failure: Yes Hx Hypercholesterolemia: Yes Hx Hypertension: Yes - PULMONARY Hx Chronic Obstructive Pulmonary Disease (COPD): Yes - NEUROLOGICAL HX Cerebrovascular Accident: Yes - HEENT Hx HEENT Problems: Yes 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) - RENAL Hx Chronic Kidney Disease: Yes - ENDOCRINE/METABOLIC Hx Diabetes Mellitus Type 2: Yes - HEMATOLOGICAL/ONCOLOGICAL Hx Anemia: Yes (blood transfusion) - INTEGUMENTARY Hx Dermatological Problems: No - MUSCULOSKELETAL/RHEUMATOLOGICAL Hx Arthritis: Yes (both hips,left ankle) - GASTROINTESTINAL Hx Gastrointestinal Disorders: Yes Hx Gastroesophageal Reflux: Yes - GENITOURINARY/GYNECOLOGICAL Hx Genitourinary Disorders: No - PSYCHIATRIC Hx Psychophysiologic Disorder: Yes Hx Schizophrenia: Yes Hx Substance Use: No - SURGICAL HISTORY Hx Surgeries: Yes Hx Coronary Stent: Yes - ANESTHESIA Hx Anesthesia: Yes Hx Anesthesia Reactions: No Hx Malignant Hyperthermia: No Meds Allergies/Adverse Reactions: Allergies Allergy/AdvReac Type Severity Reaction Status Date / Time iodine Allergy Severe ANAPHYLAXIS Verified 12/09/17 00:05 iv dye Allergy Severe ANAPHYLAXIS Uncoded 12/09/17 00:05 - Medications Medications: Current Medications Acetaminophen (Tylenol 325mg Tab) 650 mg PO Q6 PRN PRN Reason: Pain, Mild (1-3) Last Admin: 01/18/18 14:34 Dose: 650 mg Albuterol/Ipratropium (Duoneb 3 Mg/0.5 Mg (3 Ml) Ud) 3 ml INH RQ6 [facility] Last Admin: 01/18/18 07:36 Dose: Not Given Alprazolam (Xanax) 0.25 mg PO Q8H PRN PRN Reason: Anxiety Stop: 01/23/18 10:16 Amlodipine Besylate (Norvasc) 10 mg PO QPM [facility] Last Admin: 01/18/18 17:12 Dose: 10 mg Aspirin (Aspirin Chewable) 81 mg PO DAILY [facility] Last Admin: 01/18/18 09:33 Dose: 81 mg Ergocalciferol (Drisdol 50,000 Intl Units Cap) 1 cap PO Q7D [facility] Last Admin: 01/15/18 05:30 Dose: Not Given Famotidine (Pepcid) 20 mg PO DAILY [facility] Last Admin: 01/18/18 09:33 Dose: 20 mg Ferrous Gluconate (Fergon) 324 mg PO TID [facility] Last Admin: 01/18/18 17:12 Dose: 324 mg Furosemide (Lasix) 40 mg PO DAILY [facility] Last Admin: 01/18/18 09:33 Dose: 40 mg Heparin Sodium (Porcine) (Heparin) 5,000 units SC Q12 [facility] Last Admin: 01/18/18 09:32 Dose: 5,000 units Hydralazine HCl (Apresoline) 100 mg PO TID [facility] Last Admin: 01/18/18 17:12 Dose: 100 mg Insulin Human Regular (Novolin R) 0 unit SC ACHS [facility] PRN Reason: Protocol Last Admin: 01/18/18 17:15 Dose: Not Given Isosorbide Mononitrate (Imdur) 60 mg PO DAILY [facility] Last Admin: 01/18/18 09:33 Dose: 60 mg Metoprolol Succinate (Toprol Xl) 50 mg PO DAILY [facility] Last Admin: 01/18/18 09:33 Dose: 50 mg Morphine Sulfate (Morphine) 1 mg IVP Q4 PRN PRN Reason: Pain, moderate (4-7) Last Admin: 01/18/18 15:46 Dose: 1 mg Ondansetron HCl (Zofran Inj) 4 mg IVP Q8 PRN PRN Reason: Nausea/Vomiting Last Admin: 01/18/18 09:17 Dose: 4 mg Pantoprazole Sodium (Protonix Inj) 40 mg IVP Q12H [facility] Last Admin: 01/18/18 12:30 Dose: 40 mg Polyethylene Glycol (Miralax) 17 gm PO DAILY [facility] Last Admin: 01/18/18 09:32 Dose: Not Given Ranolazine (Ranexa) 500 mg PO BID [facility] Last Admin: 01/18/18 17:12 Dose: 500 mg Fluticasone/Salmeterol (Advair Diskus 250/50) 1 puff INH RQ12 [facility] Last Admin: 01/18/18 07:36 Dose: Not Given Tiotropium [place] (Spiriva) 18 mcg INH RQ24 [facility] Last Admin: 01/18/18 08:25 Dose: Not Given Vitamin B Complex/Vit C/Folic Acid (Nephro-Karolyn) 1 tab PO Q24H [facility] Last Admin: 01/18/18 06:46 Dose: 1 tab Zolpidem Tartrate (Ambien) 5 mg PO HS [facility] Last Admin: 01/17/18 21:41 Dose: 5 mg Physical Exam - Constitutional Appears: Confused, Cachectic, Chronically Ill - Head Exam Head Exam: NORMOCEPHALIC - Eye Exam Eye Exam: PERRL. absent: Scleral icterus - ENT Exam ENT Exam: Mucous Membranes Dry, Normal External Ear Exam - Neck Exam Neck exam: Negative for: Lymphadenopathy - Respiratory Exam Respiratory Exam: Decreased Breath Sounds, Rhonchi - Cardiovascular Exam Cardiovascular Exam: REGULAR RHYTHM, +S1, +S2 - GI/Abdominal Exam GI & Abdominal Exam: Diminished Bowel Sounds, Soft. absent: Tenderness - Rectal Exam Rectal Exam: Deferred - Exam Exam: NORMAL INSPECTION - Extremities Exam Extremities exam: Positive for: pedal pulses present. Negative for: calf tenderness, pedal edema, tenderness - Back Exam Back exam: absent: CVA tenderness (L), CVA tenderness (R), paraspinal tenderness - Neurological Exam Neurological exam: Alert, Altered, CN II-XII Intact - Psychiatric Exam Psychiatric exam: Depressed - Skin Skin Exam: Dry Results - Vital Signs Recent Vital Signs: Last Vital Signs Temp 97.5 F L 01/18/18 16:00 Pulse 76 01/18/18 16:00 Resp 18 01/18/18 16:00 BP 123/61 01/18/18 16:00 Pulse Ox 95 01/18/18 16:00 - Labs Result Diagrams: 01/26/18 11:30 01/26/18 11:30 Labs: Laboratory Results - last 24 hr 01/18/18 01/18/18 01/18/18 06:38 11:17 13:48 WBC 8.6 RBC 3.66 L Hgb 10.6 L Hct 31.1 L MCV 85.2 MCH 28.9 MCHC 34.0 RDW 23.9 H Plt Count 265 MPV 9.2 Sodium Potassium Chloride Carbon Dioxide Anion Gap BUN Creatinine Est GFR ( Amer) Est GFR (Non-Af Amer) POC Glucose (mg/dL) 118 H 151 H Random Glucose Calcium Total Bilirubin AST ALT Alkaline Phosphatase NT-Pro-B Natriuret Pep Total Protein Albumin Globulin Albumin/Globulin Ratio 01/18/18 01/18/18 13:48 16:46 WBC RBC Hgb Hct MCV MCH MCHC RDW Plt Count MPV Sodium 135 Potassium 4.0 Chloride 93 L Carbon Dioxide 27 Anion Gap 19 BUN 33 H Creatinine 1.5 H Est GFR ( Amer) 41 Est GFR (Non-Af Amer) 34 POC Glucose (mg/dL) 116 H Random Glucose 144 H Calcium 8.6 Total Bilirubin 0.5 AST 13 L ALT 6 L D Alkaline Phosphatase 41 NT-Pro-B Natriuret Pep 07074 H Total Protein 5.9 L Albumin 3.2 L Globulin 2.7 Albumin/Globulin Ratio 1.2 Assessment & Plan (1) Non-ST elevated myocardial infarction (non-STEMI) Status: Acute (2) Peripheral visual field defect of both eyes Status: Acute (3) UTI (urinary tract infection) Status: Acute (4) CHF (congestive heart failure) Status: Chronic - Assessment and Plan (Free Text) Assessment: cont empiric IV antibiotics await cultures
--- NOTE | 2018-01-19 00:04 | PN ---
DATE: SUBJECTIVE: The patient seen. The patient is screaming, profanities, seems to be very irritable and demanding morphine, and she states that she wants food. The patient had food for dinner she states she does not want to take it. She states she has hunger pains and wants morphine. Mood is still very labile and very demanding. PHYSICAL EXAMINATION: VITAL SIGNS: Temperature is 97.5, pulse 76, blood pressure 123/61, respirations 18, oxygen saturation is 95% on nasal cannula. The patient is currently testing limits with staff. REVIEW OF SYSTEMS: GENERAL: The patient is alert, verbal, forgetful but very irritable, screaming, profanities. She says she wants to go home. SKIN: No diaphoresis. HEENT: She is hard of hearing. No headache. NECK: Supple. RESPIRATORY: Continuous oxygen treatment. CARDIOVASCULAR: No chest pain. GASTROINTESTINAL: The patient is very picky about her food. EXTREMITIES: Gait unsteady. MUSCULOSKELETAL: Feels weak. NEUROLOGIC: Alert with periods of forgetfulness. GENITOURINARY: No dysuria. MENTAL STATUS EXAMINATION: Elderly female, who is very irritable and demanding, seen in her room. The patient states she wants food and she wants morphine. The patient has multiple unrealistic demands from staff. Speech is loud. Affect is reactive. Mood is irritable. Thought process, forgetful. Thought content, the patient still wants to go home, but the patient needs 24-hour care. The patient's mind keeps on changing what she wants from moment to moment from staff. No paranoia. No suicidal or homicidal ideation. Attention and memory seemed to be limited. Insight and judgement limited. Impulse control is fair at this time. IMPRESSION: History of delirium, metabolic encephalopathy secondary to exacerbation of chronic obstructive pulmonary disease as well as history of dementia, history of urinary tract infection, hypertension, congestive heart failure. PLAN AND RECOMMENDATIONS: The patient seen, meds reviewed. Continue Xanax p.r.n. as ordered as well as Ambien as ordered as well as the morphine as ordered. We will hold off any other medications as the patient easily desaturates with when taking regular psych meds. The patient is awaiting completion of Medicaid. At this time, she cannot go home without 24-hour care. Demetrius Burdick MD [facility] # [id number] MTDJeaneth
[2018-01-19] MEDS: Albuterol-Ipratrop 3 mg / 0.5 (3 ml) UD INH SCH ×4 (01:56→19:28)
[2018-01-19] MEDS: Tiotropium 18 mcg Cap For Inhalation INH SCH (07:37)
[2018-01-19] MEDS: Fluticasone-Salmeterol 250-50mcg Diskus INH SCH ×2 (07:37→19:28)
[2018-01-19] MEDS: Multivitamin Vitamin B Complex (Nephro-Vite) Tab PO SCH (08:57)
[2018-01-19] MEDS: Morphine 4 MG/ML VIAL IVP PRN ×3 (08:57→18:18)
[2018-01-19] MEDS: (Novolin R) Insulin Human Regular 100 units/ml vial SC SCH ×4 (08:59→21:46)
[2018-01-19] MEDS: Metoprolol Succinate 50 mg XL Tab PO SCH (09:43)
[2018-01-19] MEDS: Ranolazine 500 mg Extended Release Tablets PO SCH ×2 (09:45→17:19)
[2018-01-19] MEDS: POLYETHYLENE GLYCOL 3350 17 GM/Dose PACKET PO SCH (09:46)
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
--- NOTE | 2018-01-19 13:47 | CP.PCM.PN ---
Subjective - Date & Time of Evaluation Date of Evaluation: 01/19/18 Time of Evaluation: 13:45 - Subjective Subjective: Nephrology Consultation Note: Assessment: worsened worsening pulmonary edema on CXR 01/16/18 Possible UTI NSTEMI, CHF/COPD exacerbation with pleural effusions/pulm congestion Acute Kidney Injury (N17.9) possibly due to CHF/cardiorenal, hemodynamic CAD with 3 vessel disease Diabetic chronic Kidney Disease (E11.22) Hypertensive Chronic Kidney Disease (I12.9) Chronic Kidney Disease (N18.3) Stage 3 with 1.7 gram proteinuria (R80.9) likely due to ETHEL, NSAIDs Anemia (D64.9), HTN (I12.9), Rt JASON 60%, PVD, CAD, CA breast renal cysts vit D def Plan No acute need for renal replacement therapy at this time. Hypertension control with meds as ordered. 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 Monitor Input/Output, daily weights and renal function with basic metabolic panel supplement electrolytes as needed continue with iron supplement, MVI and weekly Vit D Increased diuretics as lasix 40 mg two times a day. an give lasix IV prn in addition, if needed. ID following Dose meds/antibiotics for reduced GFR. Avoid fleets enema/magnesium based laxatives. Avoid nephrotoxins/NSAIDs Glycemic control Further work up/management as per primary team. Thanks for allowing me to participate in care of your patient. Please call if any Qs. Dr Shiraz Husain Office: [phone] reason for consult: ETHEL HPI: Pt is a 72 F with hx of diabetes Mellitus (years), hypertension (many years ), CAD s/p stent, PVD s/p iliac stent, Rt renal artery stenosis 60%, Ca breast s /p chemo presented with complaints of chest pain and SOB, managed for CHF and NSTEMI in past, reported heavy use of NSAIDs as naproxen, up to 10 tab/day for months probably has baseline CKD with cr 1.0-1.2 with intermittent AKIs ROS: She is irritable. wants to go home. denies short of breath. remains un- coperative. says "I am fine, Just go". Physical Examination: General Appearance: in no acute respiratory distress , upset Vitals reviewed and noted as below Head; Atraumatic, normocephalic Lungs: Normal respiratory rate/effort. Breath sounds bilateral with crackles Heart: Normal rate. s1s2 normal. No rub or gallop. Extremities: no edema. No varicose veins Neurological: Patient is Awake alert Moving all 4 extremities. Abdomen: not coperative Psych: Limited insight. Patient is often very irritable. MSK: not coperative : not coperative Labs/imaging reviewed. Past medical history, past surgical history, family history, social history, allergy reviewed and noted as below Family hx: no hx of CKD. Rest non-contributory sono jun 2017: simple cyst. previous CT showed stable complex cyst left kidney echo; moderate to severe TR SPEP/AMY neg, serum FLC assay WNL. Vit D <12.8 PTH 168 TSAT 4% Ferritin 19 Hep B and C neg Objective - Vital Signs/Intake and Output Vital Signs (last 24 hours): Temp Pulse Resp BP Pulse Ox 97.7 F 77 20 127/69 94 L 01/19/18 08:00 01/19/18 08:00 01/19/18 08:00 01/19/18 09:44 01/19/18 08:00 Intake and Output: 01/19/18 01/19/18 06:59 18:59 Intake Total 100 Balance 100 - Medications Medications: Current Medications Acetaminophen (Tylenol 325mg Tab) 650 mg PO Q6 PRN PRN Reason: Pain, Mild (1-3) Last Admin: 01/18/18 14:34 Dose: 650 mg Albuterol/Ipratropium (Duoneb 3 Mg/0.5 Mg (3 Ml) Ud) 3 ml INH RQ6 [facility] Last Admin: 01/19/18 13:23 Dose: Not Given Alprazolam (Xanax) 0.25 mg PO Q8H PRN PRN Reason: Anxiety Stop: 01/23/18 10:16 Last Admin: 01/18/18 19:09 Dose: 0.25 mg Amlodipine Besylate (Norvasc) 10 mg PO QPM [facility] Last Admin: 01/18/18 17:12 Dose: 10 mg Aspirin (Aspirin Chewable) 81 mg PO DAILY [facility] Last Admin: 01/19/18 09:44 Dose: 81 mg Ergocalciferol (Drisdol 50,000 Intl Units Cap) 1 cap PO Q7D [facility] Last Admin: 01/15/18 05:30 Dose: Not Given Famotidine (Pepcid) 20 mg PO DAILY [facility] Last Admin: 01/19/18 09:43 Dose: 20 mg Ferrous Gluconate (Fergon) 324 mg PO TID [facility] Last Admin: 01/19/18 09:45 Dose: 324 mg Furosemide (Lasix) 40 mg PO BID [facility] Heparin Sodium (Porcine) (Heparin) 5,000 units SC Q12 [facility] Last Admin: 01/19/18 09:44 Dose: 5,000 units Hydralazine HCl (Apresoline) 100 mg PO TID [facility] Last Admin: 01/19/18 09:44 Dose: 100 mg Cefepime HCl 0.5 gm/ Sodium (Chloride) 100 mls @ 100 mls/hr IVPB DAILY [facility] PRN Reason: Protocol Insulin Human Regular (Novolin R) 0 unit SC ACHS [facility] PRN Reason: Protocol Last Admin: 01/19/18 08:59 Dose: Not Given Isosorbide Mononitrate (Imdur) 60 mg PO DAILY [facility] Last Admin: 01/19/18 09:43 Dose: 60 mg Metoprolol Succinate (Toprol Xl) 50 mg PO DAILY [facility] Last Admin: 01/19/18 09:43 Dose: 50 mg Morphine Sulfate (Morphine) 1 mg IVP Q4 PRN PRN Reason: Pain, moderate (4-7) Last Admin: 01/19/18 08:57 Dose: 1 mg Ondansetron HCl (Zofran Inj) 4 mg IVP Q8 PRN PRN Reason: Nausea/Vomiting Last Admin: 01/18/18 09:17 Dose: 4 mg Pantoprazole Sodium (Protonix Inj) 40 mg IVP Q12H [facility] Last Admin: 01/18/18 23:50 Dose: Not Given Polyethylene Glycol (Miralax) 17 gm PO DAILY [facility] Last Admin: 01/19/18 09:46 Dose: Not Given Ranolazine (Ranexa) 500 mg PO BID [facility] Last Admin: 01/19/18 09:45 Dose: 500 mg Fluticasone/Salmeterol (Advair Diskus 250/50) 1 puff INH RQ12 [facility] Last Admin: 01/19/18 07:37 Dose: Not Given Tiotropium [place] (Spiriva) 18 mcg INH RQ24 [facility] Last Admin: 01/19/18 07:37 Dose: Not Given Vitamin B Complex/Vit C/Folic Acid (Nephro-Karolyn) 1 tab PO Q24H [facility] Last Admin: 01/19/18 08:57 Dose: 1 tab Zolpidem Tartrate (Ambien) 5 mg PO HS [facility] Last Admin: 01/18/18 21:39 Dose: 5 mg - Labs Labs: 01/18/18 13:48 01/18/18 13:48 PT 13.6 SECONDS (9.7-12.2) H 01/15/18 07:10 INR 1.2 01/15/18 07:10 APTT 34 SECONDS (21-34) 12/09/17 00:22
[2018-01-19] MEDS: Cefepime 0.5 GM in Sodium Chloride 0.9% 100 ML IVPB SCH (14:25)
--- NOTE | 2018-01-19 18:32 | CP.PCM.PN ---
Subjective - Date & Time of Evaluation Date of Evaluation: 01/19/18 Time of Evaluation: 07:00 - Subjective Subjective: 72 year old female with history of CVA, severe CAD , CKD presenting with abd pain and fever Found to have UTI started on IV antibiotics PmHx: with history of CVA, TIA, CAD, [place] s/p PCI, PVD s/p R iliac stent, Breast Cancer s/p lumpectomy with chemoradiation, dCHF EF 60-65% 09/2016, Hypertension , Hyperlipidemia, Fall s/p Right hip replacement with resultant chronic hip pain PsHx: As stated in HPI Objective - Vital Signs/Intake and Output Vital Signs (last 24 hours): Temp Pulse Resp BP Pulse Ox 97.7 F 77 20 125/65 94 L 01/19/18 08:00 01/19/18 08:00 01/19/18 08:00 01/19/18 17:20 01/19/18 08:00 Intake and Output: 01/19/18 01/19/18 06:59 18:59 Intake Total 100 Balance 100 - Medications Medications: Current Medications Acetaminophen (Tylenol 325mg Tab) 650 mg PO Q6 PRN PRN Reason: Pain, Mild (1-3) Last Admin: 01/18/18 14:34 Dose: 650 mg Albuterol/Ipratropium (Duoneb 3 Mg/0.5 Mg (3 Ml) Ud) 3 ml INH RQ6 [facility] Last Admin: 01/19/18 13:23 Dose: Not Given Alprazolam (Xanax) 0.25 mg PO Q8H PRN PRN Reason: Anxiety Stop: 01/23/18 10:16 Last Admin: 01/18/18 19:09 Dose: 0.25 mg Amlodipine Besylate (Norvasc) 10 mg PO QPM [facility] Last Admin: 01/19/18 17:19 Dose: 10 mg Aspirin (Aspirin Chewable) 81 mg PO DAILY [facility] Last Admin: 01/19/18 09:44 Dose: 81 mg Ergocalciferol (Drisdol 50,000 Intl Units Cap) 1 cap PO Q7D [facility] Last Admin: 01/15/18 05:30 Dose: Not Given Famotidine (Pepcid) 20 mg PO DAILY [facility] Last Admin: 01/19/18 09:43 Dose: 20 mg Ferrous Gluconate (Fergon) 324 mg PO TID [facility] Last Admin: 01/19/18 17:18 Dose: 324 mg Furosemide (Lasix) 40 mg PO BID [facility] Last Admin: 01/19/18 17:20 Dose: 40 mg Heparin Sodium (Porcine) (Heparin) 5,000 units SC Q12 [facility] Last Admin: 01/19/18 09:44 Dose: 5,000 units Hydralazine HCl (Apresoline) 100 mg PO TID [facility] Last Admin: 01/19/18 17:19 Dose: 100 mg Cefepime HCl 0.5 gm/ Sodium (Chloride) 100 mls @ 100 mls/hr IVPB DAILY [facility] PRN Reason: Protocol Last Admin: 01/19/18 14:25 Dose: Not Given Insulin Human Regular (Novolin R) 0 unit SC ACHS [facility] PRN Reason: Protocol Last Admin: 01/19/18 17:20 Dose: Not Given Isosorbide Mononitrate (Imdur) 60 mg PO DAILY [facility] Last Admin: 01/19/18 09:43 Dose: 60 mg Metoprolol Succinate (Toprol Xl) 50 mg PO DAILY [facility] Last Admin: 01/19/18 09:43 Dose: 50 mg Morphine Sulfate (Morphine) 1 mg IVP Q4 PRN PRN Reason: Pain, moderate (4-7) Last Admin: 01/19/18 18:18 Dose: 1 mg Ondansetron HCl (Zofran Inj) 4 mg IVP Q8 PRN PRN Reason: Nausea/Vomiting Last Admin: 01/19/18 16:04 Dose: 4 mg Pantoprazole Sodium (Protonix Inj) 40 mg IVP Q12H [facility] Last Admin: 01/19/18 15:36 Dose: 40 mg Polyethylene Glycol (Miralax) 17 gm PO DAILY [facility] Last Admin: 01/19/18 09:46 Dose: Not Given Ranolazine (Ranexa) 500 mg PO BID [facility] Last Admin: 01/19/18 17:19 Dose: 500 mg Fluticasone/Salmeterol (Advair Diskus 250/50) 1 puff INH RQ12 [facility] Last Admin: 01/19/18 07:37 Dose: Not Given Tiotropium [place] (Spiriva) 18 mcg INH RQ24 [facility] Last Admin: 01/19/18 07:37 Dose: Not Given Vitamin B Complex/Vit C/Folic Acid (Nephro-Karolyn) 1 tab PO Q24H [facility] Last Admin: 01/19/18 08:57 Dose: 1 tab Zolpidem Tartrate (Ambien) 5 mg PO HS [facility] Last Admin: 01/18/18 21:39 Dose: 5 mg - Labs Labs: 01/18/18 13:48 01/18/18 13:48 PT 13.6 SECONDS (9.7-12.2) H 01/15/18 07:10 INR 1.2 01/15/18 07:10 APTT 34 SECONDS (21-34) 12/09/17 00:22 - Constitutional Appears: Non-toxic, Cachectic, Chronically Ill - Head Exam Head Exam: ATRAUMATIC, NORMAL INSPECTION, NORMOCEPHALIC - Eye Exam Eye Exam: PERRL. absent: Scleral icterus - ENT Exam ENT Exam: Mucous Membranes Dry - Neck Exam Neck Exam: absent: Lymphadenopathy - Respiratory Exam Respiratory Exam: Decreased Breath Sounds, Rhonchi - Cardiovascular Exam Cardiovascular Exam: REGULAR RHYTHM, +S1, +S2 - GI/Abdominal Exam GI & Abdominal Exam: Distended, Soft. absent: Tenderness - Rectal Exam Rectal Exam: Deferred - Exam Exam: NORMAL INSPECTION - Extremities Exam Extremities Exam: absent: Pedal Edema - Back Exam Back Exam: absent: CVA tenderness (L), CVA tenderness (R) Assessment and Plan (1) UTI (urinary tract infection) Status: Acute (2) Dyspnea Status: Acute (3) Non-ST elevated myocardial infarction (non-STEMI) Status: Acute (4) CHF (congestive heart failure) Status: Chronic (5) Abdominal pain Status: Acute - Assessment and Plan (Free Text) Assessment: PmHx: with history of CVA, TIA, CAD, [place] s/p PCI, PVD s/p R iliac stent, Breast Cancer s/p lumpectomy with chemoradiation, dCHF EF 60-65% 09/2016, Hypertension , Hyperlipidemia, Fall s/p Right hip replacement with resultant chronic hip pain PsHx: As stated in HPI Plan: U/A not convincing for UTI still with cough cont IV rx for now
--- NOTE | 2018-01-19 19:34 | PN ---
DATE: SUBJECTIVE: The patient is seen. The patient is very irritable, screaming today and very uncooperative. The patient states she wants to go home, but today she states that she is willing to go for subacute rehab because she cannot walk. The patient has multiple unrealistic demands. Today, she is upset mainly because I did not give her food yesterday, but the patient was keeping on changing what to eat during her dinner. Today, she said that she is willing for subacute rehab from the hospital. The patient realized that she cannot walk and she also needs oxygen all the time, so the patient made aware she is awaiting completion of her Medicaid and the patient may go for alf placement or subacute treatment. VITAL SIGNS: Temperature is 97.7, pulse 77, blood pressure 127/69, respirations 20, oxygen saturation is 94%. REVIEW OF SYSTEMS: GENERAL: The patient is alert, verbal, very irritable. The patient is screaming at the doctors as well as screaming at the staff and was throwing everybody out of her room stating that she does not need them. SKIN: No diaphoresis. HEENT: Still hard of hearing. No headache. NECK: Supple. RESPIRATORY: Continuous oxygen treatment. CARDIOVASCULAR: No chest pain. GASTROINTESTINAL: She is eating better, but very picky with her food. EXTREMITIES: Gait unsteady, although she has been getting physical therapy. MUSCULOSKELETAL: Generalized weakness. NEUROLOGIC: Alert with periods of forgetfulness. GENITOURINARY: No dysuria. MENTAL STATUS EXAMINATION: Elderly female, who is very [place] and irritable, oriented x2. Affect is reactive. Speech is loud, verbally abusive. Thought process, forgetful. Thought content, the patient wants to go for subacute rehab. No psychosis. The patient is paranoid. No suicidal or homicidal ideation. Attention and memory seemed to be limited. Insight and judgment limited. Impulse control is guarded at this time. IMPRESSION: History of delirium, metabolic encephalopathy secondary to exacerbation of chronic obstructive pulmonary disease as well as history of dementia with mood changes. PLAN AND RECOMMENDATIONS: The patient seen, meds reviewed. We will continue her Ambien 5 mg at bedtime p.r.n. as well as her Xanax 0.25 mg every 8 hours p.r.n. and then also the morphine at 1 mg every 4 hours p.r.n. for pain. The patient has been asking it. The patient was given Xanax standing and had some pulmonary problems, so we can just give her Xanax p.r.n. for now for anxiety. Demetrius Burdick MD
[2018-01-20] MEDS: Albuterol-Ipratrop 3 mg / 0.5 (3 ml) UD INH SCH ×4 (02:40→20:11)
[2018-01-20 07:14] LABS: HEMOGLOBIN 10.7 g/dL (11.0-16.0); MEAN CELL VOLUME 85.2 fL (81.0-99.0); MEAN CORPUSCULAR HEMOGLOBIN 28.6 pg (27.0-31.0); MEAN CORPUSCULAR HGB CONC 33.5 g/dL (33.0-37.0); MEAN PLATELET VOLUME 8.9 fL (7.2-11.7); RBC 3.76 Mil/uL (3.80-5.20); RED CELL DISTRIBUTION WIDTH 23.5 % (11.5-14.5)
[2018-01-20 07:32] LABS: ALB/GLOB RATIO 1.1 (1.0-2.1); ALBUMIN 3.2 g/dL (3.5-5.0)
[2018-01-20] MEDS: (Novolin R) Insulin Human Regular 100 units/ml vial SC SCH ×6 (07:44→21:20)
[2018-01-20] MEDS: Fluticasone-Salmeterol 250-50mcg Diskus INH SCH ×2 (07:56→20:11)
[2018-01-20] MEDS: Tiotropium 18 mcg Cap For Inhalation INH SCH (07:57)
[2018-01-20] MEDS: Metoprolol Succinate 50 mg XL Tab PO SCH (09:25)
[2018-01-20] MEDS: POLYETHYLENE GLYCOL 3350 17 GM/Dose PACKET PO SCH (09:25)
[2018-01-20] MEDS: Multivitamin Vitamin B Complex (Nephro-Vite) Tab PO SCH (09:25)
[2018-01-20] MEDS: Ranolazine 500 mg Extended Release Tablets PO SCH ×2 (09:26→17:38)
[2018-01-20] MEDS: Cefepime 0.5 GM in Sodium Chloride 0.9% 100 ML IVPB SCH (10:57)
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
--- NOTE | 2018-01-20 15:40 | CP.PCM.PN ---
Subjective - Date & Time of Evaluation Date of Evaluation: 01/20/18 Time of Evaluation: 15:37 - Subjective Subjective: Nephrology Consultation Note: Assessment: w worsening pulmonary edema on CXR 01/16/18 Possible UTI NSTEMI, CHF/COPD exacerbation with pleural effusions/pulm congestion Acute Kidney Injury (N17.9) possibly due to CHF/cardiorenal, hemodynamic CAD with 3 vessel disease Diabetic chronic Kidney Disease (E11.22) Hypertensive Chronic Kidney Disease (I12.9) Chronic Kidney Disease (N18.3) Stage 3 with 1.7 gram proteinuria (R80.9) likely due to ETHEL, NSAIDs Anemia (D64.9), HTN (I12.9), Rt JASON 60%, PVD, CAD, CA breast renal cysts vit D def Plan No acute need for renal replacement therapy at this time. Renal function is slightly worse unable to auscultate lungs- if cr further worsens would recc hold lasix appears to be breathing comfortably Hypertension control with meds as ordered. 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 Monitor Input/Output, daily weights and renal function with basic metabolic panel supplement electrolytes as needed continue with iron supplement, MVI and weekly Vit D ID following S: seen and examined pt stated she wanted me to leave room Physical Examination: General Appearance: in no acute respiratory distress , upset Vitals reviewed and noted as below Head; Atraumatic, normocephalic Lungs: did not allow exam Heart: Normal rate. s1s2 normal. No rub or gallop. Extremities: no edema. No varicose veins Neurological: Patient is Awake alert Moving all 4 extremities. Abdomen: not coperative Psych: Limited insight. Patient is irritable. MSK: not coperative : not coperative Labs/imaging reviewed. Past medical history, past surgical history, family history, social history, allergy reviewed and noted as below Family hx: no hx of CKD. Rest non-contributory sono jun 2017: simple cyst. previous CT showed stable complex cyst left kidney echo; moderate to severe TR SPEP/AMY neg, serum FLC assay WNL. Vit D <12.8 PTH 168 TSAT 4% Ferritin 19 Hep B and C neg Objective - Vital Signs/Intake and Output Vital Signs (last 24 hours): Temp Pulse Resp BP Pulse Ox 98.3 F 72 18 144/56 L 97 01/20/18 07:00 04/21/18 07:00 01/20/18 07:00 01/20/18 09:25 01/20/18 07:00 Intake and Output: 01/20/18 01/20/18 06:59 18:59 Intake Total 300 Balance 300 - Medications Medications: Current Medications Acetaminophen (Tylenol 325mg Tab) 650 mg PO Q6 PRN PRN Reason: Pain, Mild (1-3) Last Admin: 01/20/18 12:48 Dose: 650 mg Albuterol/Ipratropium (Duoneb 3 Mg/0.5 Mg (3 Ml) Ud) 3 ml INH RQ6 [facility] Last Admin: 01/20/18 13:27 Dose: Not Given Alprazolam (Xanax) 0.25 mg PO Q8H PRN PRN Reason: Anxiety Stop: 01/23/18 10:16 Last Admin: 01/18/18 19:09 Dose: 0.25 mg Amlodipine Besylate (Norvasc) 10 mg PO QPM [facility] Last Admin: 01/19/18 17:19 Dose: 10 mg Aspirin (Aspirin Chewable) 81 mg PO DAILY [facility] Last Admin: 01/20/18 09:25 Dose: 81 mg Ergocalciferol (Drisdol 50,000 Intl Units Cap) 1 cap PO Q7D [facility] Last Admin: 01/15/18 05:30 Dose: Not Given Famotidine (Pepcid) 20 mg PO DAILY [facility] Last Admin: 01/20/18 09:25 Dose: 20 mg Ferrous Gluconate (Fergon) 324 mg PO TID [facility] Last Admin: 01/20/18 13:42 Dose: 324 mg Furosemide (Lasix) 40 mg PO BID [facility] Last Admin: 01/20/18 09:25 Dose: 40 mg Hydralazine HCl (Apresoline) 100 mg PO TID [facility] Last Admin: 01/20/18 13:43 Dose: 100 mg Cefepime HCl 0.5 gm/ Sodium (Chloride) 100 mls @ 100 mls/hr IVPB DAILY [facility] PRN Reason: Protocol Last Admin: 01/20/18 10:57 Dose: 100 mls/hr Insulin Human Regular (Novolin R) 0 unit SC ACHS [facility] PRN Reason: Protocol Last Admin: 01/20/18 13:00 Dose: 3 unit Isosorbide Mononitrate (Imdur) 60 mg PO DAILY [facility] Last Admin: 01/20/18 09:26 Dose: 60 mg Metoprolol Succinate (Toprol Xl) 50 mg PO DAILY [facility] Last Admin: 01/20/18 09:25 Dose: 50 mg Ondansetron HCl (Zofran Inj) 4 mg IVP Q8 PRN PRN Reason: Nausea/Vomiting Last Admin: 01/20/18 14:42 Dose: 4 mg Pantoprazole Sodium (Protonix Inj) 40 mg IVP Q12H [facility] Last Admin: 01/20/18 12:49 Dose: 40 mg Polyethylene Glycol (Miralax) 17 gm PO DAILY [facility] Last Admin: 01/20/18 09:25 Dose: Not Given Ranolazine (Ranexa) 500 mg PO BID [facility] Last Admin: 01/20/18 09:26 Dose: 500 mg Fluticasone/Salmeterol (Advair Diskus 250/50) 1 puff INH RQ12 [facility] Last Admin: 01/20/18 07:56 Dose: Not Given Tiotropium [place] (Spiriva) 18 mcg INH RQ24 [facility] Last Admin: 01/20/18 07:57 Dose: Not Given Tramadol HCl (Ultram) 50 mg PO Q8 PRN PRN Reason: Pain, moderate (4-7) Last Admin: 01/20/18 11:06 Dose: 50 mg Vitamin B Complex/Vit C/Folic Acid (Nephro-Karolyn) 1 tab PO Q24H [facility] Last Admin: 01/20/18 09:25 Dose: Not Given Zolpidem Tartrate (Ambien) 5 mg PO HS [facility] Last Admin: 01/19/18 21:43 Dose: 5 mg - Labs Labs: 01/20/18 07:09 01/20/18 07:09 PT 13.6 SECONDS (9.7-12.2) H 01/15/18 07:10 INR 1.2 01/15/18 07:10 APTT 34 SECONDS (21-34) 12/09/17 00:22
--- NOTE | 2018-01-20 22:26 | PN ---
DATE: SUBJECTIVE: The patient seen. The patient today was again very irritable and screaming, demanding the nurse for her tramadol. She was told that there is a shortage of morphine in [place], and she can have tramadol, but she was asking to have it more frequently than her usual dose of every 8 hours. I would change the tramadol to 50 every 6 hours p.r.n., and the patient is advised to eat food when taking tramadol which she has agreed. She states she is willing to go for subacute rehabilitation once her Medicaid is in place, stating that she cannot walk and needs 24-hour care. REVIEW OF SYSTEMS: GENERAL: She is alert and oriented x3. Seen in her room, very irritable, verbally abusive, but not in acute respiratory distress and very forgetful. SKIN: No diaphoresis. HEENT: Still hard of hearing. No headache. NECK: Supple. RESPIRATORY: The patient has continuous oxygen treatment, easily gets short of breath. CARDIOVASCULAR: No chest pain. GASTROINTESTINAL: Appetite is viable, complaining of abdominal pain. MUSCULOSKELETAL: Has some back pain. EXTREMITIES: Gait is unsteady. MUSCULOSKELETAL: Feels weak. NEUROLOGIC: Alert with period of forgetfulness. PHYSICAL EXAMINATION VITAL SIGNS: Temperature 98.3, pulse 72, blood pressure 144/56, respirations 18, oxygen saturation 97%. MENTAL STATUS EXAMINATION: Elderly female, looks her stated age. Very [place] and irritable. Affect is labile. As stated, mood is irritable. Speech is loud. Verbally abuse. Thought process is forgetful. Thought content, the patient is demanding tramadol and also states that she want to go for subacute rehabilitation. The patient told that she is waiting for the completion of her Medicaid. No suicidal or homicidal ideation. No paranoia. Attention and memory seem to be limited. Insight and judgment limited. Impulse control is guarded at this time. IMPRESSION: History of delirium, metabolic encephalopathy secondary to exacerbation of chronic obstructive pulmonary disease as well as dementia with mood changes. PLAN AND RECOMMENDATION: The patient was seen, meds reviewed. The patient is awaiting completion of Medicaid for possible subacute rehabilitation and long-term care. She cannot go home without 24-hour care, and the patient cannot be managed by herself as she needs continuous oxygen and the patient is nonambulatory at this time. She is presently in bed, and gait is very unsteady so we will give her tramadol 50 mg every 6 hours p.r.n., and she can also have her Xanax p.r.n. for now and the Ambien to help her sleep. Demetrius Burdick MD MTDJeaneth
[2018-01-21] MEDS: Albuterol-Ipratrop 3 mg / 0.5 (3 ml) UD INH SCH ×4 (01:14→21:09)
[2018-01-21] MEDS: (Novolin R) Insulin Human Regular 100 units/ml vial SC SCH ×4 (07:24→21:37)
[2018-01-21] MEDS: Tiotropium 18 mcg Cap For Inhalation INH SCH (07:45)
[2018-01-21 07:46] LABS: HEMOGLOBIN 10.8 g/dL (11.0-16.0); MEAN CELL VOLUME 85.7 fL (81.0-99.0); MEAN CORPUSCULAR HEMOGLOBIN 28.7 pg (27.0-31.0); MEAN CORPUSCULAR HGB CONC 33.5 g/dL (33.0-37.0); MEAN PLATELET VOLUME 8.9 fL (7.2-11.7); RBC 3.76 Mil/uL (3.80-5.20); RED CELL DISTRIBUTION WIDTH 23.4 % (11.5-14.5); WHITE BLOOD COUNT 7.8 K/uL (4.8-10.8)
[2018-01-21 08:02] LABS: ALB/GLOB RATIO 1.2 (1.0-2.1); ALBUMIN 3.2 g/dL (3.5-5.0); CALCIUM 8.7 mg/dl (8.6-10.4)
[2018-01-21] MEDS: Multivitamin Vitamin B Complex (Nephro-Vite) Tab PO SCH (08:04)
[2018-01-21] MEDS: Fluticasone-Salmeterol 250-50mcg Diskus INH SCH ×2 (08:05→21:10)
[2018-01-21] MEDS: Metoprolol Succinate 50 mg XL Tab PO SCH (09:29)
[2018-01-21] MEDS: Ranolazine 500 mg Extended Release Tablets PO SCH ×2 (09:30→17:27)
[2018-01-21] MEDS: POLYETHYLENE GLYCOL 3350 17 GM/Dose PACKET PO SCH (09:31)
[2018-01-21] MEDS: Cefepime 0.5 GM in Sodium Chloride 0.9% 100 ML IVPB SCH (09:31)
[2018-01-21] MEDS: Potassium Chloride 20 mEq ER Tab PO SCH (12:44)
--- NOTE | 2018-01-21 12:49 | PN ---
DATE: 01/21/2018. SUBJECTIVE: The patient is seen. The patient remains much calmer and more reasonable today. She has been receiving her tramadol p.r.n. and has been taking food with it as advised to avoid GI upset. The patient is awaiting for the outcome of the meeting tomorrow concerning her Medicaid and the patient is still willing to go for subacute rehab. The patient sometimes gets irritable and [place], but today she is much calmer. PHYSICAL EXAMINATION: VITAL SIGNS: Temperature 97.2, pulse 71, blood pressure 153/64, respirations 18, oxygen saturation 100%. REVIEW OF SYSTEMS: GENERAL: The patient is alert, verbal, still forgetful, but less irritable today. Not in any acute respiratory distress. She states she is eating food with her pain meds. SKIN: No diaphoresis. HEENT: Still hard of hearing. No headaches. NECK: Supple. RESPIRATORY: No dyspnea. CARDIOVASCULAR: No chest pain or palpitations. GASTROINTESTINAL: The patient is eating better. EXTREMITIES: Gait is still unsteady. MUSCULOSKELETAL: Feels weak. NEUROLOGIC: Alert with periods of forgetfulness. The patient still continues all the treatment. The patient is hoping to go for subacute rehab. She is not interested to go home at this time, the patient states she can walk. MENTAL STATUS EXAMINATION: Elderly female who looks stated age, oriented x2. Mood is less irritable. Affect is reactive. Speech spontaneous. Thought process forgetful. Thought content, patient denied psychosis. No suicidal or homicidal ideations. The patient is awaiting for the result of the meeting tomorrow with Guido her friend and staff concerning her disposition. The patient cannot go home today without 24 hours care, but she has agreed to go for subacute rehab. The patient is waiting for the completion of her Medicaid application. As stated no psychosis, no suicidal or homicidal ideation. Attention and memory seem to be limited. Insight and judgment limited. Impulse control is fair at this time. IMPRESSION: History of delirium, metabolic encephalopathy secondary to exacerbation of chronic obstructive pulmonary disease superimposed on dementia. PLAN AND RECOMMENDATIONS: The patient seen, meds reviewed. Continue present meds as ordered. The patient is on Ambien 5 mg at bedtime and also she is on Xanax p.r.n. which has been given 0.25 every 8 hours and also tramadol 50 mg every 6 hours p.r.n., the patient is advised to take it with food. Demetrius Burdick MD MTDD
--- NOTE | 2018-01-21 13:10 | PN ---
DATE: 01/21/2018. SUBJECTIVE: I saw her this morning, sitting up in bed. She ate her breakfast. She has makeup on, this is the first time I have seen her with lipstick and cheek makeup. She feels good. She is smiling, she is in good spirits. No pain. She is breathing well best I have seen her. MEDICATIONS: She is on Advair, Ambien, Apresoline, chewable aspirin, cefepime, Drisdol, DuoNeb, Fergon, iron, Lasix, MiraLax, Nephro-stephie, Norvasc, Novolin, Pepcid, Protonix, Ranexa, Spiriva, Toprol, Tylenol, Ultram, Xanax and Zofran. PHYSICAL EXAMINATION: VITAL SIGNS: She has a 97.2 temp, 71 pulse, 153/64 blood pressure, 18 respiratory rate, 100% on O2 stat on 4 L of nasal cannula. GENERAL: She is smiling. She is comfortable, in no acute distress and she is pleasant. HEENT: Head is atraumatic, normocephalic. Throat is moist. NECK: Supple. HEART: Regular rate. LUNGS: Clear to auscultation. ABDOMEN: Soft and nontender. Positive bowel sounds. EXTREMITIES: No edema. LABORATORY DATA: She has a 7.8 white count, 10.8 hemoglobin, 30.3 hematocrit with a 270 platelets. She has a 137 sodium, potassium is 3.5, I gave her some potassium. BUN is 39, creatinine 1.8. Kidney functions are rising a little, we will discuss that with Renal calcium 8.7 total bili is 0.4, AST is 12, ALT is 7, alk phos 42, total protein is 5.8. ASSESSMENT AND PLAN: She is being seen by Psychiatry, Renal and Infectious Disease. She has worsening pulmonary edema, possible urinary tract infection, congestive heart failure, chronic obstructive pulmonary disease, non ST elevation myocardial infarction, acute kidney injury, diabetic chronic kidney injury. We will continue aggressive treatment and care. We will check her labs tomorrow. We will get her out of bed to chair. Physical therapy. Waiting for social service to help us. I will replace the potassium today. John Brown DO MTDJeaneth
--- NOTE | 2018-01-21 15:16 | CP.PCM.PN ---
Subjective - Date & Time of Evaluation Date of Evaluation: 01/21/18 Time of Evaluation: 08:00 - Subjective Subjective: weak nad iv rx reordered Objective - Vital Signs/Intake and Output Vital Signs (last 24 hours): Temp Pulse Resp BP Pulse Ox 97.2 F L 71 18 153/64 H 100 01/21/18 07:45 01/21/18 07:45 01/21/18 07:45 01/21/18 09:29 01/21/18 07:45 Intake and Output: 01/21/18 01/21/18 06:59 18:59 Intake Total 200 300 Balance 200 300 - Medications Medications: Current Medications Acetaminophen (Tylenol 325mg Tab) 650 mg PO Q6 PRN PRN Reason: Pain, Mild (1-3) Last Admin: 01/21/18 09:30 Dose: 650 mg Albuterol/Ipratropium (Duoneb 3 Mg/0.5 Mg (3 Ml) Ud) 3 ml INH RQ6 [facility] Last Admin: 01/21/18 13:10 Dose: Not Given Alprazolam (Xanax) 0.25 mg PO Q8H PRN PRN Reason: Anxiety Stop: 01/23/18 10:16 Last Admin: 01/21/18 01:10 Dose: 0.25 mg Amlodipine Besylate (Norvasc) 10 mg PO QPM [facility] Last Admin: 01/20/18 17:38 Dose: 10 mg Aspirin (Aspirin Chewable) 81 mg PO DAILY [facility] Last Admin: 01/21/18 09:31 Dose: 81 mg Ergocalciferol (Drisdol 50,000 Intl Units Cap) 1 cap PO Q7D [facility] Last Admin: 01/15/18 05:30 Dose: Not Given Famotidine (Pepcid) 20 mg PO DAILY [facility] Last Admin: 01/21/18 09:29 Dose: 20 mg Ferrous Gluconate (Fergon) 324 mg PO TID [facility] Last Admin: 01/21/18 14:38 Dose: 324 mg Furosemide (Lasix) 40 mg PO BID [facility] Last Admin: 01/21/18 09:29 Dose: 40 mg Hydralazine HCl (Apresoline) 100 mg PO TID [facility] Last Admin: 01/21/18 14:38 Dose: 100 mg Cefepime HCl 0.5 gm/ Sodium (Chloride) 100 mls @ 100 mls/hr IVPB DAILY [facility] PRN Reason: Protocol Last Admin: 01/21/18 09:31 Dose: 100 mls/hr Insulin Human Regular (Novolin R) 0 unit SC ACHS [facility] PRN Reason: Protocol Last Admin: 01/21/18 11:48 Dose: Not Given Isosorbide Mononitrate (Imdur) 60 mg PO DAILY [facility] Last Admin: 01/21/18 09:29 Dose: 60 mg Metoprolol Succinate (Toprol Xl) 50 mg PO DAILY [facility] Last Admin: 01/21/18 09:29 Dose: 50 mg Ondansetron HCl (Zofran Inj) 4 mg IVP Q8 PRN PRN Reason: Nausea/Vomiting Last Admin: 01/20/18 14:42 Dose: 4 mg Pantoprazole Sodium (Protonix Inj) 40 mg IVP Q12H [facility] Last Admin: 01/21/18 12:44 Dose: 40 mg Polyethylene Glycol (Miralax) 17 gm PO DAILY [facility] Last Admin: 01/21/18 09:31 Dose: Not Given Potassium Chloride (K-Dur 20 Meq Er Tab) 20 meq PO DAILY [facility] Last Admin: 01/21/18 12:44 Dose: 20 meq Ranolazine (Ranexa) 500 mg PO BID [facility] Last Admin: 01/21/18 09:30 Dose: 500 mg Fluticasone/Salmeterol (Advair Diskus 250/50) 1 puff INH RQ12 [facility] Last Admin: 01/21/18 08:05 Dose: Not Given Tiotropium [place] (Spiriva) 18 mcg INH RQ24 [facility] Last Admin: 01/21/18 07:45 Dose: Not Given Tramadol HCl (Ultram) 50 mg PO Q6H PRN PRN Reason: pain Last Admin: 01/21/18 14:37 Dose: 50 mg Vitamin B Complex/Vit C/Folic Acid (Nephro-Karolyn) 1 tab PO Q24H [facility] Last Admin: 01/21/18 08:04 Dose: 1 tab Zolpidem Tartrate (Ambien) 5 mg PO HS [facility] Last Admin: 01/20/18 21:16 Dose: 5 mg - Labs Labs: 01/21/18 07:36 01/21/18 07:36 PT 13.6 SECONDS (9.7-12.2) H 01/15/18 07:10 INR 1.2 01/15/18 07:10 APTT 34 SECONDS (21-34) 12/09/17 00:22 - Constitutional Appears: Non-toxic, Chronically Ill - Head Exam Head Exam: NORMOCEPHALIC - Eye Exam Eye Exam: PERRL - ENT Exam ENT Exam: Mucous Membranes Dry - Neck Exam Neck Exam: absent: Lymphadenopathy - Respiratory Exam Respiratory Exam: Decreased Breath Sounds - Cardiovascular Exam Cardiovascular Exam: REGULAR RHYTHM - GI/Abdominal Exam GI & Abdominal Exam: Distended, Soft Assessment and Plan (1) UTI (urinary tract infection) Status: Acute (2) Dyspnea Status: Acute (3) Non-ST elevated myocardial infarction (non-STEMI) Status: Acute (4) CHF (congestive heart failure) Status: Chronic (5) Abdominal pain Status: Acute
[2018-01-22] MEDS: Albuterol-Ipratrop 3 mg / 0.5 (3 ml) UD INH SCH ×4 (01:12→19:47)
[2018-01-22] MEDS: (Novolin R) Insulin Human Regular 100 units/ml vial SC SCH ×5 (07:45→21:37)
[2018-01-22] MEDS: Tiotropium 18 mcg Cap For Inhalation INH SCH (07:49)
[2018-01-22] MEDS: Fluticasone-Salmeterol 250-50mcg Diskus INH SCH (07:49)
[2018-01-22] MEDS: Multivitamin Vitamin B Complex (Nephro-Vite) Tab PO SCH (08:05)
--- NOTE | 2018-01-22 08:32 | PN ---
DATE: 01/22/2018. SUBJECTIVE: I saw her this morning. She slept fairly well, but now she is not in a good mood. Yesterday, she had a great mood. Today, she is not in a good mood, very uncomfortable, upset with everybody and everything and why she is here so long. Still having abdominal pain from time to time. MEDICATIONS: She is on Advair, Ambien, Apresoline, aspirin, cefepime, Drisdol, DuoNeb, Fergon, Imdur, potassium, Lasix, MiraLax, Nephro-Karolyn, Norvasc, Novolin, Pepcid, Protonix, Ranexa, Spiriva, Toprol, Toradol, Tylenol, Xanax and Zofran. PHYSICAL EXAMINATION: VITAL SIGNS: Temperature 97.7, 65 pulse, 157/62 blood pressure, 20 respiratory rate, 96% O2 sat on 4 L of nasal cannula. HEENT: Head is atraumatic, normocephalic. HEART: Regular rate. LUNGS: Decreased breath sounds, but clear. ABDOMEN: Soft. Positive bowel sounds. Nontender. GI: She is eating some. EXTREMITIES: No edema. LABORATORY DATA: She has a 7.8 white count, 10.8 hemoglobin, 32.3 hematocrit with 270 platelets. She has 137 sodium, potassium is 3.5, she will get some potassium, 39 BUN, creatinine 1.8, Renal is on the case, if the BUN is still going up, we will stop the NSAIDs. Sugar is 101, calcium is 8.7, total bili is 0.4, AST is 12, ALT is 7, alk phos is 42. ASSESSMENT AND PLAN: She is being seen by Infectious Disease, Psychiatry and Renal. I want to get the kidney functions down. She has urinary tract infection, dyspnea, non ST elevation myocardial infarction, congestive heart failure, abdominal pain and renal insufficiency. I will change her medications, get rid of the NSAIDs and see if she does not improve with her kidney function. John Brown DO
[2018-01-22] MEDS: Potassium Chloride 20 mEq ER Tab PO SCH (09:33)
[2018-01-22] MEDS: Cefepime 0.5 GM in Sodium Chloride 0.9% 100 ML IVPB SCH (09:33)
[2018-01-22] MEDS: Ranolazine 500 mg Extended Release Tablets PO SCH ×2 (09:34→19:41)
[2018-01-22] MEDS: Metoprolol Succinate 50 mg XL Tab PO SCH (09:35)
[2018-01-22] MEDS ORDERED: Ergocalciferol 50,000 Intl Units Cap PO SCH (10:00)
[2018-01-22] MEDS: Lidocaine 5% Patch TD SCH (13:22)
[2018-01-22] MEDS: POLYETHYLENE GLYCOL 3350 17 GM/Dose PACKET PO SCH (13:45)
[2018-01-22 13:58] LABS: MEAN CELL VOLUME 85.9 fL (81.0-99.0); MEAN CORPUSCULAR HEMOGLOBIN 28.5 pg (27.0-31.0); MEAN CORPUSCULAR HGB CONC 33.2 g/dL (33.0-37.0); MEAN PLATELET VOLUME 9.2 fL (7.2-11.7); RBC 3.85 Mil/uL (3.80-5.20); RED CELL DISTRIBUTION WIDTH 22.8 % (11.5-14.5); WHITE BLOOD COUNT 12.5 K/uL (4.8-10.8)
[2018-01-22 14:14] LABS: ALB/GLOB RATIO 1.2 (1.0-2.1); ALBUMIN 3.3 g/dL (3.5-5.0); ALT/SGPT < 6 U/L (9-52); AST/SGOT 16 U/L (14-36); BLOOD UREA NITROGEN 40 mg/dL (7-17); GFR AFRICAN-AMERICAN 33; GFR NON-AFRICAN AMERICAN 28
--- NOTE | 2018-01-22 14:55 | PN ---
DATE: SUBJECTIVE: The patient is seen. The patient was taken off the Tramadol by Dr. Brown due to her kidney status. The patient's creatinine is going up. The patient is still complaining of pain, especially in the hypogastric area, and was asking for some pain medication. She is off the tramadol and morphine. The patient is only taking Xanax 0.25 every 8 hours p.r.n. and Ambien to help for sleep. Currently, she has been sleeping well. The patient has different kind of pain meds and it was discussed with Dr. Brown for other medications that will be given to the patient and possibly given the pain patch, but not narcotic. PHYSICAL EXAMINATION: VITAL SIGNS: Temperature 97.3, pulse rate 68, blood pressure 138/66, respirations 18, oxygen saturation is 100% nasal cannula. REVIEW OF SYSTEMS: GENERAL: The patient is alert, verbal, still forgetful, seen in her room, still very anxious. SKIN: No diaphoresis. HEENT: Still hard of hearing. No headache. NECK: Supple. RESPIRATORY: On continuous oxygen treatment. No dyspnea. CARDIOVASCULAR: No chest pain. GASTROINTESTINAL: The patient is eating well, but complaining of hypogastric pain. EXTREMITIES: Gait is unsteady. MUSCULOSKELETAL: Feels weak. NEUROLOGIC: Alert with periods of forgetfulness. GENITOURINARY: No dysuria. MENTAL STATUS EXAMINATION: Elderly female who looks stated age, oriented x2. Still anxious, labile, and somatic. Asking for her pain meds. According to psychotherapist social worker, the patient's application for Medicaid is still not complete and awaiting some papers to be completed. As stated, no psychosis. No suicidal or homicidal ideation. Attention and memory seem to be limited. Insight and judgment limited. Impulse control is fair at this time. IMPRESSION: History of delirium, metabolic encephalopathy secondary to exacerbation of chronic obstructive pulmonary disease, gait dysfunction, history of dementia with mood changes. PLAN AND RECOMMENDATIONS: The patient is seen, meds reviewed. Continue present management. Continue with the psych meds. 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 At this time, the patient was stable to be discharged to home alone without 24-hour care. Demetrius Burdick MD [facility] # [id number]
--- NOTE | 2018-01-22 16:52 | CP.PCM.PN ---
Subjective - Date & Time of Evaluation Date of Evaluation: 01/22/18 Time of Evaluation: 09:30 - Subjective Subjective: renal note pt un-coperative refused to be seen or evaluated Objective - Vital Signs/Intake and Output Vital Signs (last 24 hours): Temp Pulse Resp BP Pulse Ox 97.3 F L 68 18 138/66 100 01/22/18 07:20 01/22/18 07:20 01/22/18 07:20 01/22/18 09:33 01/22/18 07:20 - Medications Medications: Current Medications Acetaminophen (Tylenol 325mg Tab) 650 mg PO Q6 PRN PRN Reason: Pain, Mild (1-3) Last Admin: 01/22/18 13:47 Dose: 650 mg Albuterol/Ipratropium (Duoneb 3 Mg/0.5 Mg (3 Ml) Ud) 3 ml INH RQ6 [facility] Last Admin: 01/22/18 13:25 Dose: Not Given Alprazolam (Xanax) 0.25 mg PO Q8H PRN PRN Reason: Anxiety Stop: 01/23/18 10:16 Last Admin: 01/21/18 01:10 Dose: 0.25 mg Amlodipine Besylate (Norvasc) 10 mg PO QPM [facility] Last Admin: 01/21/18 17:27 Dose: 10 mg Aspirin (Aspirin Chewable) 81 mg PO DAILY [facility] Last Admin: 01/22/18 09:35 Dose: 81 mg Ergocalciferol (Drisdol 50,000 Intl Units Cap) 1 cap PO Q7D@1000 [facility] Last Admin: 01/22/18 13:45 Dose: 1 cap Famotidine (Pepcid) 20 mg PO DAILY [facility] Last Admin: 01/22/18 09:34 Dose: 20 mg Ferrous Gluconate (Fergon) 324 mg PO TID [facility] Last Admin: 01/22/18 13:43 Dose: 324 mg Furosemide (Lasix) 40 mg PO BID [facility] Last Admin: 01/22/18 09:33 Dose: 40 mg Hydralazine HCl (Apresoline) 100 mg PO TID [facility] Last Admin: 01/22/18 13:43 Dose: 100 mg Cefepime HCl 0.5 gm/ Sodium (Chloride) 100 mls @ 100 mls/hr IVPB DAILY [facility] PRN Reason: Protocol Last Admin: 01/22/18 09:33 Dose: 100 mls/hr Insulin Human Regular (Novolin R) 0 unit SC ACHS [facility] PRN Reason: Protocol Last Admin: 01/22/18 12:35 Dose: 2 unit Isosorbide Mononitrate (Imdur) 60 mg PO DAILY [facility] Last Admin: 01/22/18 09:33 Dose: 60 mg Lidocaine (Lidoderm) 1 ea TD DAILY [facility] Last Admin: 01/22/18 13:22 Dose: 1 ea Metoprolol Succinate (Toprol Xl) 50 mg PO DAILY [facility] Last Admin: 01/22/18 09:35 Dose: 50 mg Ondansetron HCl (Zofran Inj) 4 mg IVP Q8 PRN PRN Reason: Nausea/Vomiting Last Admin: 01/20/18 14:42 Dose: 4 mg Pantoprazole Sodium (Protonix Inj) 40 mg IVP Q12H [facility] Last Admin: 01/22/18 12:34 Dose: 40 mg Polyethylene Glycol (Miralax) 17 gm PO DAILY [facility] Last Admin: 01/22/18 13:45 Dose: Not Given Potassium Chloride (K-Dur 20 Meq Er Tab) 20 meq PO DAILY [facility] Last Admin: 01/22/18 09:33 Dose: 20 meq Ranolazine (Ranexa) 500 mg PO BID [facility] Last Admin: 01/22/18 09:34 Dose: 500 mg Fluticasone/Salmeterol (Advair Diskus 250/50) 1 puff INH RQ12 [facility] Last Admin: 01/22/18 07:49 Dose: Not Given Tiotropium [place] (Spiriva) 18 mcg INH RQ24 [facility] Last Admin: 01/22/18 07:49 Dose: Not Given Vitamin B Complex/Vit C/Folic Acid (Nephro-Karolyn) 1 tab PO Q24H [facility] Last Admin: 01/22/18 08:05 Dose: 1 tab Zolpidem Tartrate (Ambien) 5 mg PO HS [facility] Last Admin: 01/21/18 21:35 Dose: 5 mg - Labs Labs: 01/22/18 13:40 01/22/18 13:40 PT 13.6 SECONDS (9.7-12.2) H 01/15/18 07:10 INR 1.2 01/15/18 07:10 APTT 34 SECONDS (21-34) 12/09/17 00:22
[2018-01-23] MEDS: Albuterol-Ipratrop 3 mg / 0.5 (3 ml) UD INH SCH ×4 (01:16→20:52)
[2018-01-23] MEDS: Sodium Chloride 0.45% 1,000 ML IV SCH (06:13)
[2018-01-23] MEDS: HYDROmorphone 0.5 mg/0.5 ml ISec IVP PRN ×4 (06:30→18:52)
[2018-01-23] MEDS: Tiotropium 18 mcg Cap For Inhalation INH SCH (07:34)
[2018-01-23] MEDS: Fluticasone-Salmeterol 250-50mcg Diskus INH SCH ×2 (07:34→20:52)
[2018-01-23] MEDS: (Novolin R) Insulin Human Regular 100 units/ml vial SC SCH ×4 (08:00→22:05)
[2018-01-23 08:12] LABS: HEMOGLOBIN 10.9 g/dL (11.0-16.0); MEAN CELL VOLUME 85.8 fL (81.0-99.0); MEAN CORPUSCULAR HEMOGLOBIN 28.7 pg (27.0-31.0); MEAN CORPUSCULAR HGB CONC 33.5 g/dL (33.0-37.0); RBC 3.81 Mil/uL (3.80-5.20); RED CELL DISTRIBUTION WIDTH 23.3 % (11.5-14.5); WHITE BLOOD COUNT 10.8 K/uL (4.8-10.8)
[2018-01-23] MEDS: Multivitamin Vitamin B Complex (Nephro-Vite) Tab PO SCH (08:27)
[2018-01-23 08:36] LABS: ALB/GLOB RATIO 1.2 (1.0-2.1); ALBUMIN 3.4 g/dL (3.5-5.0); ALT/SGPT < 6 U/L (9-52); AST/SGOT 26 U/L (14-36); BLOOD UREA NITROGEN 40 mg/dL (7-17); GFR AFRICAN-AMERICAN 38; GFR NON-AFRICAN AMERICAN 32
[2018-01-23] MEDS: Potassium Chloride 20 mEq ER Tab PO SCH (09:30)
[2018-01-23] MEDS: Metoprolol Succinate 50 mg XL Tab PO SCH (09:31)
[2018-01-23] MEDS: Ranolazine 500 mg Extended Release Tablets PO SCH ×2 (09:32→18:44)
[2018-01-23] MEDS: Cefepime 0.5 GM in Sodium Chloride 0.9% 100 ML IVPB SCH (10:03)
[2018-01-23] MEDS: Lidocaine 5% Patch TD SCH (10:03)
[2018-01-23] MEDS: POLYETHYLENE GLYCOL 3350 17 GM/Dose PACKET PO SCH (10:04)
--- NOTE | 2018-01-23 10:45 | PN ---
DATE: SUBJECTIVE: She is not doing well this morning. She is cursing this morning, not in a good mood. She is asking for pain medication. Her kidney functions have been going up. We do not have any morphine in the facility for her. She is on Tylenol, Lidoderm patch. Just thought cutting her Protonix and Pepcid. PHYSICAL EXAMINATION: VITAL SIGNS: Temperature 97.6, 76 pulse, 152/62 blood pressure, 20 respiratory rate, 97% O2 saturation on 4 L nasal cannula. HEENT: Head is atraumatic, normocephalic. She is alert. She is uncomfortable. HEART: Regular rate. LUNGS: Decreased breath sounds, but clear. ABDOMEN: Soft. EXTREMITIES: No edema. She is on Advair, Ambien, Apresoline, aspirin, cefepime IV, Drisdol, DuoNeb, Fergon, Imdur, potassium, Lasix, Lidoderm, MiraLAX, Nephro-Karolyn, amlodipine, Novolin, Pepcid, Protonix, Ranexa, Spiriva, metoprolol, Tylenol, Xanax, Zofran, and I added morphine again. I could find some morphine for her. LABORATORY DATA: She has 140 sodium, potassium is 4, BUN is 40, creatinine 1.8 elevated, I need Renal to help me with this. I gave her 30 mL of IV fluids now to try and help with kidney function. Last blood sugar was 143, calcium is 9, AST is 16, ALT is less than 6, alk phos 44, total protein 6, white count bumped up to 12.5. Infectious Disease is on the case, started her on antibiotics. Hemoglobin is 11, hematocrit is 32.1, platelets 333. ASSESSMENT AND PLAN: A very difficult patient. It is very difficult to oneself to. She is mean, anxious, yelling, screaming, and cursing. It is very difficult to have a conversation with her, very uncooperative. I understand that she was not allowed to get Medicaid. I am not sure why that happened. So Medicaid application is still not complete. Continue aggressive treatment and care as per social science manager, Case Management, let me know if there is a change. I am not in the loop. John Brown DO [facility]
--- NOTE | 2018-01-23 15:00 | PN ---
DATE: SUBJECTIVE: The patient is seen. The patient is in better mood today. She said she is getting her pain medications. The patient is on Dilaudid as well as on Lidoderm patch. The patient still has back pain, but in better mood today. She is awaiting to go for subacute rehab. OBJECTIVE: VITAL SIGNS: Temperature is 97.9, pulse 74, blood pressure 181/71, respirations 20, and oxygen saturation is 100%. GENERAL: Today with the current pain meds, the patient's mood is much mellow. REVIEW OF SYSTEMS: CONSTITUTIONAL: The patient is alert and oriented x3, still forgetful, seen in her room. SKIN: No diaphoresis. HEENT: Still hard of hearing. No headache. NECK: Supple. RESPIRATORY: No dyspnea. CARDIOVASCULAR: No chest pain. GASTROINTESTINAL: She is eating more. MUSCULOSKELETAL: Still has back pain and also hypogastric pain, but relieved by her current pain medications. Feels weak. EXTREMITIES: Gait is unsteady. NEUROLOGICAL: Alert, forgetful, oriented x2. MENTAL STATUS EXAMINATION: Elderly female who looks stated age, oriented x2. Mood is much mellow today. No verbal outburst. Affect is reactive. Speech is spontaneous. Thought process, forgetful. Thought content, the patient wants to go to subacute rehab. No psychosis. No suicidal or homicidal ideation. Attention and memory seems to be limited. Insight and judgment limited. Impulse control is fair at this time. IMPRESSION: History of delirium, metabolic encephalopathy secondary to exacerbation of chronic obstructive pulmonary disease as superimposed on dementia as well as gait dysfunction. PLAN AND RECOMMENDATIONS : The patient is seen, meds reviewed. Continue present management. Continue present psych meds. The patient awaiting completion of Medicaid for possible subacute rehab. Continue treatment plan as outlined. Continue pain meds as ordered. Demetrius Burdick MD
--- NOTE | 2018-01-23 17:13 | CP.PCM.PN ---
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 Hypertension control with meds as ordered. 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 Monitor Input/Output, daily weights and renal function with basic metabolic panel supplement electrolytes as needed continue with iron supplement, MVI and weekly Vit D continue with diuretics as lasix 40 mg bid Dose meds/antibiotics for improved GFR. Avoid fleets enema/magnesium based laxatives. Avoid nephrotoxins/NSAIDs Glycemic control Further work up/management as per primary team. Thanks for allowing me to participate in care of your patient. Please call if any Qs. Dr Shiraz Husain Office: [phone] reason for consult: ETHEL HPI: Pt is a 72 F with hx of diabetes Mellitus (years), hypertension (many years ), CAD s/p stent, PVD s/p iliac stent, Rt Renal artery stenosis 60%, Ca breast s /p chemo presented with complaints of chest pain and SOB, managed for CHF and NSTEMI in past, reported heavy use of NSAIDs as naproxen, up to 10 tab/day for months probably has baseline CKD with Cr 1.0-1.2 with intermittent AKIs ROS: She is irritable. wants to go home. denies short of breath. Physical Examination: General Appearance: in no acute respiratory distress , mostly upset Vitals reviewed and noted as below Head; Atraumatic, normocephalic Lungs: Normal respiratory rate/effort. Breath sounds bilateral with basal crackles but overall clearer Heart: Normal rate. s1s2 normal. No rub or gallop. Extremities: no edema. No varicose veins Neurological: Patient is Awake alert Moving all 4 extremities. Abdomen: soft non tender bs+ no organomegaly Psych: Limited insight. Patient is often very irritable. MSK: not coperative : kidney abd bladder not palpable Labs/imaging reviewed. Past medical history, past surgical history, family history, social history, allergy reviewed and noted as below Family hx: no hx of CKD. Rest non-contributory sono jun 2017: simple cyst. previous CT showed stable complex cyst left kidney echo; moderate to severe TR SPEP/AMY neg, serum FLC assay WNL. Vit D <12.8 PTH 168 TSAT 4% Ferritin 19 Hep B and C neg Objective - Vital Signs/Intake and Output Vital Signs (last 24 hours): Temp Pulse Resp BP Pulse Ox 97.9 F 74 20 181/71 H 100 01/23/18 07:00 01/23/18 07:00 01/23/18 07:00 01/23/18 09:30 01/23/18 07:00 Intake and Output: 01/23/18 01/23/18 06:59 18:59 Intake Total 240 490 Balance 240 490 - Medications Medications: Current Medications Acetaminophen (Tylenol 325mg Tab) 650 mg PO Q6 PRN PRN Reason: Pain, Mild (1-3) Last Admin: 01/23/18 02:06 Dose: 650 mg Albuterol/Ipratropium (Duoneb 3 Mg/0.5 Mg (3 Ml) Ud) 3 ml INH RQ6 [facility] Last Admin: 01/23/18 13:16 Dose: Not Given Amlodipine Besylate (Norvasc) 10 mg PO QPM [facility] Last Admin: 01/22/18 17:05 Dose: 10 mg Aspirin (Aspirin Chewable) 81 mg PO DAILY [facility] Last Admin: 01/23/18 09:31 Dose: 81 mg Ergocalciferol (Drisdol 50,000 Intl Units Cap) 1 cap PO Q7D@1000 [facility] Last Admin: 01/22/18 13:45 Dose: 1 cap Famotidine (Pepcid) 20 mg PO DAILY [facility] Last Admin: 01/23/18 09:31 Dose: 20 mg Ferrous Gluconate (Fergon) 324 mg PO TID [facility] Last Admin: 01/23/18 14:05 Dose: 324 mg Furosemide (Lasix) 40 mg PO BID [facility] Last Admin: 01/23/18 09:30 Dose: 40 mg Hydralazine HCl (Apresoline) 100 mg PO TID [facility] Last Admin: 01/23/18 14:05 Dose: 100 mg Hydromorphone HCl (Dilaudid) 0.5 mg IVP Q3H PRN PRN Reason: pain Last Admin: 01/23/18 14:12 Dose: 0.5 mg Cefepime HCl 0.5 gm/ Sodium (Chloride) 100 mls @ 100 mls/hr IVPB DAILY [facility] PRN Reason: Protocol Last Admin: 01/23/18 10:03 Dose: Not Given Sodium Chloride (Sodium Chloride 0.45%) 1,000 mls @ 30 mls/hr IV .Q24H [facility] Last Admin: 01/23/18 06:13 Dose: 30 mls/hr Insulin Human Regular (Novolin R) 0 unit SC ACHS [facility] PRN Reason: Protocol Last Admin: 01/23/18 11:36 Dose: Not Given Isosorbide Mononitrate (Imdur) 60 mg PO DAILY [facility] Last Admin: 01/23/18 09:30 Dose: 60 mg Lidocaine (Lidoderm) 1 ea TD DAILY [facility] Last Admin: 01/23/18 10:03 Dose: Not Given Metoprolol Succinate (Toprol Xl) 50 mg PO DAILY [facility] Last Admin: 01/23/18 09:31 Dose: 50 mg Ondansetron HCl (Zofran Inj) 4 mg IVP Q8 PRN PRN Reason: Nausea/Vomiting Last Admin: 01/23/18 16:41 Dose: 4 mg Pantoprazole Sodium (Protonix Inj) 40 mg IVP Q12H [facility] Last Admin: 01/23/18 12:07 Dose: 40 mg Polyethylene Glycol (Miralax) 17 gm PO DAILY [facility] Last Admin: 01/23/18 10:04 Dose: Not Given Potassium Chloride (K-Dur 20 Meq Er Tab) 20 meq PO DAILY [facility] Last Admin: 01/23/18 09:30 Dose: 20 meq Ranolazine (Ranexa) 500 mg PO BID [facility] Last Admin: 01/23/18 09:32 Dose: 500 mg Fluticasone/Salmeterol (Advair Diskus 250/50) 1 puff INH RQ12 [facility] Last Admin: 01/23/18 07:34 Dose: Not Given Tiotropium [place] (Spiriva) 18 mcg INH RQ24 [facility] Last Admin: 01/23/18 07:34 Dose: Not Given Vitamin B Complex/Vit C/Folic Acid (Nephro-Karolyn) 1 tab PO Q24H [facility] Last Admin: 01/23/18 08:27 Dose: 1 tab Zolpidem Tartrate (Ambien) 5 mg PO HS [facility] Last Admin: 01/22/18 21:36 Dose: 5 mg - Labs Labs: 01/23/18 08:01 01/23/18 08:01 PT 13.6 SECONDS (9.7-12.2) H 01/15/18 07:10 INR 1.2 01/15/18 07:10 APTT 34 SECONDS (21-34) 12/09/17 00:22
[2018-01-24] MEDS: HYDROmorphone 0.5 mg/0.5 ml ISec IVP PRN ×5 (01:27→21:04)
[2018-01-24] MEDS: Albuterol-Ipratrop 3 mg / 0.5 (3 ml) UD INH SCH ×4 (01:28→20:21)
[2018-01-24 06:12] LABS: MEAN CELL VOLUME 85.9 fL (81.0-99.0); MEAN CORPUSCULAR HGB CONC 33.7 g/dL (33.0-37.0); MEAN PLATELET VOLUME 8.8 fL (7.2-11.7); RBC 4.16 Mil/uL (3.80-5.20); RED CELL DISTRIBUTION WIDTH 22.5 % (11.5-14.5); WHITE BLOOD COUNT 10.8 K/uL (4.8-10.8)
[2018-01-24] MEDS: Sodium Chloride 0.45% 1,000 ML IV SCH (06:26)
[2018-01-24 06:35] LABS: ALB/GLOB RATIO 1.2 (1.0-2.1); ALBUMIN 3.4 g/dL (3.5-5.0); CALCIUM 9.1 mg/dl (8.6-10.4)
[2018-01-24] MEDS: (Novolin R) Insulin Human Regular 100 units/ml vial SC SCH ×3 (07:35→16:49)
[2018-01-24] MEDS: Fluticasone-Salmeterol 250-50mcg Diskus INH SCH ×2 (07:52→20:21)
[2018-01-24] MEDS: Tiotropium 18 mcg Cap For Inhalation INH SCH (07:52)
[2018-01-24] MEDS: Multivitamin Vitamin B Complex (Nephro-Vite) Tab PO SCH (08:21)
[2018-01-24] MEDS: Metoprolol Succinate 50 mg XL Tab PO SCH (09:49)
[2018-01-24] MEDS: Potassium Chloride 20 mEq ER Tab PO SCH (09:49)
[2018-01-24] MEDS: Ranolazine 500 mg Extended Release Tablets PO SCH ×2 (09:50→17:51)
[2018-01-24] MEDS: Cefepime 0.5 GM in Sodium Chloride 0.9% 100 ML IVPB SCH (09:50)
[2018-01-24] MEDS: Lidocaine 5% Patch TD SCH (09:52)
[2018-01-24] MEDS: POLYETHYLENE GLYCOL 3350 17 GM/Dose PACKET PO SCH (09:53)
--- NOTE | 2018-01-24 10:05 | PN ---
DATE: 01/24/2018. SUBJECTIVE: They moved her room first of all to a private room. She slept well. She is feeling well. She has no complaint this morning. She is in good spirits. PHYSICAL EXAMINATION: VITAL SIGNS: She has 98 temp, 68 pulse, 139/68 blood pressure, 20 respiratory rate, 95% O2 sat on room air. GENERAL: She is actually calm and quiet this morning. HEENT: Head is atraumatic, normocephalic. HEART: Regular rate. LUNGS: Decreased breath sounds, but clear. ABDOMEN: Soft. EXTREMITIES: No edema. MEDICATIONS: She is currently on Advair, Ambien, Apresoline, aspirin, cefepime, Dilaudid as needed, Drisdol, DuoNeb, Fergon, Imdur, potassium, Lasix, Lidoderm, MiraLax, Nephro-stephie, Norvasc, Novolin, Pepcid, Protonix, Ranexa, IV fluids, Spiriva, Toprol, Tylenol and Zofran. LABORATORY DATA: She has a 10.8 white count, 12 hemoglobin, 35.7 hematocrit with 348 platelets, which is better than the other day. She has a 137 sodium, potassium is 4.4, BUN is 35, creatinine 1.5, GFR 34 and sugar is 90. Calcium is 9.1, total bili is 0.4, AST is 16, ALT is 8, alk phos 49, total protein is 6.1, better. ASSESSMENT AND PLAN: She is being seen by Renal, Psychiatry, and Infectious Disease. She has congestive heart failure, chronic obstructive pulmonary disease, acute kidney injury, anemia, urinary tract infection. We will continue aggressive treatment and care. Waiting for social media marketing manager, case management to work on the discharge plan. John Brown DO
--- NOTE | 2018-01-24 15:21 | CP.PCM.PN ---
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 Hypertension control with meds as ordered. 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 Monitor Input/Output, daily weights and renal function with basic metabolic panel supplement electrolytes as needed continue with iron supplement, MVI and weekly Vit D can continue with diuretics as lasix 40 mg bid Dose meds/antibiotics for reduced GFR. Avoid fleets enema/magnesium based laxatives. Avoid nephrotoxins/NSAIDs Glycemic control Further work up/management as per primary team. Thanks for allowing me to participate in care of your patient. Please call if any Qs. will sign off. Dr Shiraz Husain Office: [phone] reason for consult: ETHEL HPI: Pt is a 72 F with hx of diabetes Mellitus (years), hypertension (many years ), CAD s/p stent, PVD s/p iliac stent, Rt Renal artery stenosis 60%, Ca breast s /p chemo presented with complaints of chest pain and SOB, managed for CHF and NSTEMI in past, reported heavy use of NSAIDs as naproxen, up to 10 tab/day for months probably has baseline CKD with Cr 1.0-1.2 with intermittent AKIs ROS: Pt screaming and yelling, Says " I don't want to see you anymore". her nurse was in the room at that time Physical Examination: unable, pt screaming and yelling, asking me to leave. Labs/imaging reviewed. Past medical history, past surgical history, family history, social history, allergy reviewed and noted as below Family hx: no hx of CKD. Rest non-contributory sono jun 2017: simple cyst. previous CT showed stable complex cyst left kidney echo; moderate to severe TR SPEP/AMY neg, serum FLC assay WNL. Vit D <12.8 PTH 168 TSAT 4% Ferritin 19 Hep B and C neg Objective - Vital Signs/Intake and Output Vital Signs (last 24 hours): Temp Pulse Resp BP Pulse Ox 98.1 F 90 20 157/65 H 99 01/24/18 07:00 01/24/18 14:29 01/24/18 07:00 01/24/18 14:29 01/24/18 07:00 Intake and Output: 01/24/18 01/24/18 06:59 18:59 Intake Total 480 720 Balance 480 720 - Medications Medications: Current Medications Acetaminophen (Tylenol 325mg Tab) 650 mg PO Q6 PRN PRN Reason: Pain, Mild (1-3) Last Admin: 01/23/18 02:06 Dose: 650 mg Albuterol/Ipratropium (Duoneb 3 Mg/0.5 Mg (3 Ml) Ud) 3 ml INH RQ6 [facility] Last Admin: 01/24/18 13:30 Dose: Not Given Alprazolam (Xanax) 0.25 mg PO Q8H PRN PRN Reason: Anxiety Stop: 01/31/18 13:14 Amlodipine Besylate (Norvasc) 10 mg PO QPM [facility] Last Admin: 01/23/18 18:50 Dose: 10 mg Aspirin (Aspirin Chewable) 81 mg PO DAILY [facility] Last Admin: 01/24/18 09:49 Dose: 81 mg Ergocalciferol (Drisdol 50,000 Intl Units Cap) 1 cap PO Q7D@1000 [facility] Last Admin: 01/22/18 13:45 Dose: 1 cap Famotidine (Pepcid) 20 mg PO DAILY [facility] Last Admin: 01/24/18 09:49 Dose: 20 mg Ferrous Gluconate (Fergon) 324 mg PO TID [facility] Last Admin: 01/24/18 14:29 Dose: 324 mg Furosemide (Lasix) 40 mg PO BID [facility] Last Admin: 01/24/18 09:48 Dose: 40 mg Hydralazine HCl (Apresoline) 100 mg PO TID [facility] Last Admin: 01/24/18 14:29 Dose: 100 mg Hydromorphone HCl (Dilaudid) 0.5 mg IVP Q3H PRN PRN Reason: pain Last Admin: 01/24/18 14:32 Dose: 0.5 mg Cefepime HCl 0.5 gm/ Sodium (Chloride) 100 mls @ 100 mls/hr IVPB DAILY [facility] PRN Reason: Protocol Last Admin: 01/24/18 09:50 Dose: 100 mls/hr Sodium Chloride (Sodium Chloride 0.45%) 1,000 mls @ 30 mls/hr IV .Q24H [facility] Last Admin: 01/24/18 06:26 Dose: 30 mls/hr Insulin Human Regular (Novolin R) 0 unit SC ACHS [facility] PRN Reason: Protocol Last Admin: 01/24/18 11:23 Dose: Not Given Isosorbide Mononitrate (Imdur) 60 mg PO DAILY [facility] Last Admin: 01/24/18 09:49 Dose: 60 mg Lidocaine (Lidoderm) 1 ea TD DAILY [facility] Last Admin: 01/24/18 09:52 Dose: Not Given Metoprolol Succinate (Toprol Xl) 50 mg PO DAILY [facility] Last Admin: 01/24/18 09:49 Dose: 50 mg Ondansetron HCl (Zofran Inj) 4 mg IVP Q8 PRN PRN Reason: Nausea/Vomiting Last Admin: 01/24/18 09:49 Dose: 4 mg Pantoprazole Sodium (Protonix Inj) 40 mg IVP Q12H [facility] Last Admin: 01/24/18 12:04 Dose: 40 mg Polyethylene Glycol (Miralax) 17 gm PO DAILY [facility] Last Admin: 01/24/18 09:53 Dose: Not Given Potassium Chloride (K-Dur 20 Meq Er Tab) 20 meq PO DAILY [facility] Last Admin: 01/24/18 09:49 Dose: 20 meq Ranolazine (Ranexa) 500 mg PO BID [facility] Last Admin: 01/24/18 09:50 Dose: 500 mg Fluticasone/Salmeterol (Advair Diskus 250/50) 1 puff INH RQ12 [facility] Last Admin: 01/24/18 07:52 Dose: Not Given Tiotropium [place] (Spiriva) 18 mcg INH RQ24 [facility] Last Admin: 01/24/18 07:52 Dose: Not Given Vitamin B Complex/Vit C/Folic Acid (Nephro-Karolyn) 1 tab PO Q24H [facility] Last Admin: 01/24/18 08:21 Dose: 1 tab Zolpidem Tartrate (Ambien) 5 mg PO HS [facility] Last Admin: 01/23/18 22:08 Dose: 5 mg - Labs Labs: 01/24/18 06:05 01/24/18 06:05 PT 13.6 SECONDS (9.7-12.2) H 01/15/18 07:10 INR 1.2 01/15/18 07:10 APTT 34 SECONDS (21-34) 12/09/17 00:22
--- NOTE | 2018-01-24 17:23 | PN ---
DATE: SUBJECTIVE: The patient is in better mood today. She was transferred to a private room as the patient started screaming, the patient is disruptive to other patients. Now she is on Dilaudid IV for pain and seems to be more comfortable. She is still awaiting for completion of Medicaid for subacute rehab. PHYSICAL EXAMINATION: VITAL SIGNS: Temperature is 98.1, pulse 76, blood pressure 174/79, respirations 20, and oxygen saturation is 99%. The patient continues oxygen by nasal cannula. REVIEW OF SYSTEMS: CONSTITUTIONAL: The patient is alert and oriented x3, still forgetful, apologetic for once as she states that she is appreciating the services of the doctors and nurses given to her in the hospital. SKIN: No pruritus. HEENT: Still hard of hearing. No headache. NECK: Supple. RESPIRATORY: No dyspnea. CARDIOVASCULAR: No chest pain. GASTROINTESTINAL: She is trying to eat, no constipation. EXTREMITIES: Still has unsteady gait. MUSCULOSKELETAL: The patient has hypogastric pain as well as back pain, but relieved by Dilaudid p.r.n. NEUROLOGICAL: Alert, verbal, still forgetful. GENITOURINARY: No dysuria. MENTAL STATUS EXAMINATION: Elderly female who looks stated age, alert and oriented x2. Mood is much mellow. Affect is reactive. Speech is spontaneous. Thought process, forgetful. Thought content, the patient still awaiting for completion of her Medicaid, so she can go for subacute rehab. No psychosis. No suicidal or homicidal ideation. Attention and memory still limited. Insight and judgment limited. Impulse control is fair at this time. IMPRESSION: History of delirium, metabolic encephalopathy secondary to exacerbation of chronic obstructive pulmonary disease as well as history of dementia with mood changes. PLAN AND RECOMMENDATIONS : The patient is seen, meds reviewed. Continue present psych meds, the patient's Xanax p.r.n. and Ambien. Continue pain meds as ordered, Dilaudid p.r.n. The patient is for subacute rehab once her Medicaid application is completed. For now, the patient is unsafe to be discharged to home alone without 24-hour care. Demetrius Burdick MD [facility] # [id number]
[2018-01-25] MEDS: HYDROmorphone 0.5 mg/0.5 ml ISec IVP PRN ×3 (00:27→09:47)
[2018-01-25] MEDS: Albuterol-Ipratrop 3 mg / 0.5 (3 ml) UD INH SCH ×4 (01:25→19:03)
[2018-01-25] MEDS: Sodium Chloride 0.45% 1,000 ML IV SCH (05:03)
[2018-01-25] MEDS: Fluticasone-Salmeterol 250-50mcg Diskus INH SCH ×2 (07:28→19:03)
[2018-01-25] MEDS: Tiotropium 18 mcg Cap For Inhalation INH SCH (07:28)
[2018-01-25] MEDS: Multivitamin Vitamin B Complex (Nephro-Vite) Tab PO SCH (08:30)
[2018-01-25] MEDS: (Novolin R) Insulin Human Regular 100 units/ml vial SC SCH ×4 (08:30→21:43)
[2018-01-25] MEDS: Potassium Chloride 20 mEq ER Tab PO SCH (09:54)
[2018-01-25] MEDS: Ranolazine 500 mg Extended Release Tablets PO SCH ×2 (09:58→18:00)
[2018-01-25] MEDS: Cefepime 0.5 GM in Sodium Chloride 0.9% 100 ML IVPB SCH (10:00)
[2018-01-25] MEDS: Lidocaine 5% Patch TD SCH (10:01)
[2018-01-25] MEDS: POLYETHYLENE GLYCOL 3350 17 GM/Dose PACKET PO SCH (10:02)
[2018-01-25] MEDS: Metoprolol Succinate 50 mg XL Tab PO SCH (10:02)
--- NOTE | 2018-01-25 10:09 | PN ---
DATE: 01/25/2018. SUBJECTIVE: I saw her resting comfortably in bed. She is in a private room. She is feeling well. She is smiling. She is comfortable. She is getting her pain medications and she was cold last time, but they wrapped her up and she is feeling better. MEDICATIONS: She is on Advair, Ambien, Apresoline, aspirin, cefepime IV, Dilaudid as needed for pain because they do not have anymore morphine, Drisdol, DuoNeb, Fergon, Imdur, potassium, Lasix, Lidoderm, MiraLax, Nephro-stephie, Norvasc, Novolin, Pepcid, Protonix, Ranexa, IV fluids, Spiriva, Toprol, Tylenol, Xanax and Zofran. PHYSICAL EXAMINATION: VITAL SIGNS: She has a 98.5 temp, 80 pulse, 135/65 blood pressure, 20 respiratory rate, 99% O2 sat on 2 L nasal cannula. HEENT: Head is atraumatic, normocephalic. GENERAL: She is very alert, oriented and comfortable, in no pain at this time, good spirits. She tells me she is walking more with physical therapy. HEART: Regular rate. LUNGS: Decreased breath sounds bilaterally. ABDOMEN: Soft, nontender. Positive bowel sounds. EXTREMITIES: No edema. LABORATORY DATA: She has 10.8 white count, which is good, 12 hemoglobin, 35.7 hematocrit and 348 platelets. She has 137 sodium, potassium 4.4, BUN 35, creatinine 1.5, a little bit better. Last blood sugar was 108, calcium 9.1, total bili is 0.4, AST is 16, ALT is 8, alk phos is 49, total protein is 6.1. ASSESSMENT AND PLAN: She is being seen by Renal, Psychiatry, Infectious Disease, waiting for placement with adoption social worker, case management, hopefully that will be sooner rather than later. Continue aggressive treatment and care. She is here for congestive heart failure, chronic obstructive pulmonary disease, she is oxygen dependent, she has debility, doing better with physical therapy and hopefully get the discharge situation planned in the near future. We will check her labs. John Brown DO
--- NOTE | 2018-01-25 16:47 | CP.PCM.CON ---
History of Present Illness - History of Present Illness History of Present Illness: 72 year old female with history of CVA, severe CAD , CKD admitted with UTI. Ophthalmology consulted for blurry vision OS>OD. per patient started today. No pain. States chronic history of poor vision OD>OS. No past ocular history. Past Patient History - Infectious Disease Hx of Infectious Diseases: None - Tetanus Immunizations Tetanus Immunization: Unknown - Past Medical History & Family History Past Medical History?: Yes - Past Social History Smoking Status: Former Smoker - CARDIAC Hx Cardiac Disorders: Yes (CHF) Hx Congestive Heart Failure: Yes Hx Hypercholesterolemia: Yes Hx Hypertension: Yes - PULMONARY Hx Chronic Obstructive Pulmonary Disease (COPD): Yes - NEUROLOGICAL HX Cerebrovascular Accident: Yes - HEENT Hx HEENT Problems: Yes Hx Blind: Yes (R. 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 ear) - RENAL Hx Chronic Kidney Disease: Yes - ENDOCRINE/METABOLIC Hx Diabetes Mellitus Type 2: Yes - HEMATOLOGICAL/ONCOLOGICAL Hx Anemia: Yes (blood transfusion) - INTEGUMENTARY Hx Dermatological Problems: No - MUSCULOSKELETAL/RHEUMATOLOGICAL Hx Arthritis: Yes (both hips,left ankle) - GASTROINTESTINAL Hx Gastrointestinal Disorders: Yes Hx Gastroesophageal Reflux: Yes - GENITOURINARY/GYNECOLOGICAL Hx Genitourinary Disorders: No - PSYCHIATRIC Hx Psychophysiologic Disorder: Yes Hx Schizophrenia: Yes Hx Substance Use: No - SURGICAL HISTORY Hx Surgeries: Yes Hx Coronary Stent: Yes - ANESTHESIA Hx Anesthesia: Yes Hx Anesthesia Reactions: No Hx Malignant Hyperthermia: No Meds Allergies/Adverse Reactions: Allergies Allergy/AdvReac Type Severity Reaction Status Date / Time iodine Allergy Severe ANAPHYLAXIS Verified 12/09/17 00:05 iv dye Allergy Severe ANAPHYLAXIS Uncoded 12/09/17 00:05 - Medications Medications: Current Medications Acetaminophen (Tylenol 325mg Tab) 650 mg PO Q6 PRN PRN Reason: Pain, Mild (1-3) Last Admin: 01/23/18 02:06 Dose: 650 mg Albuterol/Ipratropium (Duoneb 3 Mg/0.5 Mg (3 Ml) Ud) 3 ml INH RQ6 [facility] Last Admin: 01/25/18 13:00 Dose: Not Given Alprazolam (Xanax) 0.25 mg PO Q8H PRN PRN Reason: Anxiety Stop: 01/31/18 13:14 Last Admin: 01/25/18 12:21 Dose: 0.25 mg Amlodipine Besylate (Norvasc) 10 mg PO QPM [facility] Last Admin: 01/24/18 17:51 Dose: 10 mg Aspirin (Aspirin Chewable) 81 mg PO DAILY [facility] Last Admin: 01/25/18 09:54 Dose: 81 mg Ergocalciferol (Drisdol 50,000 Intl Units Cap) 1 cap PO Q7D@1000 [facility] Last Admin: 01/22/18 13:45 Dose: 1 cap Famotidine (Pepcid) 20 mg PO DAILY [facility] Last Admin: 01/25/18 09:54 Dose: 20 mg Ferrous Gluconate (Fergon) 324 mg PO TID [facility] Last Admin: 01/25/18 10:01 Dose: 324 mg Furosemide (Lasix) 40 mg PO BID [facility] Last Admin: 01/25/18 09:58 Dose: 40 mg Hydralazine HCl (Apresoline) 100 mg PO TID [facility] Last Admin: 01/25/18 09:54 Dose: 100 mg Cefepime HCl 0.5 gm/ Sodium (Chloride) 100 mls @ 100 mls/hr IVPB DAILY [facility] PRN Reason: Protocol Last Admin: 01/25/18 10:00 Dose: 100 mls/hr Sodium Chloride (Sodium Chloride 0.45%) 1,000 mls @ 30 mls/hr IV .Q24H [facility] Last Admin: 01/25/18 05:03 Dose: 30 mls/hr Insulin Human Regular (Novolin R) 0 unit SC ACHS [facility] PRN Reason: Protocol Last Admin: 01/25/18 12:30 Dose: Not Given Isosorbide Mononitrate (Imdur) 60 mg PO DAILY [facility] Last Admin: 01/25/18 09:54 Dose: 60 mg Ketorolac Tromethamine (Toradol) 30 mg IVP Q8 PRN PRN Reason: Pain, moderate (4-7) Last Admin: 01/25/18 15:55 Dose: 30 mg Lidocaine (Lidoderm) 1 ea TD DAILY [facility] Last Admin: 01/25/18 10:01 Dose: Not Given Metoprolol Succinate (Toprol Xl) 50 mg PO DAILY [facility] Last Admin: 01/25/18 10:02 Dose: 50 mg Ondansetron HCl (Zofran Inj) 4 mg IVP Q8H PRN PRN Reason: Nausea/Vomiting Pantoprazole Sodium (Protonix Inj) 40 mg IVP Q12H [facility] Last Admin: 01/25/18 00:21 Dose: 40 mg Polyethylene Glycol (Miralax) 17 gm PO DAILY [facility] Last Admin: 01/25/18 10:02 Dose: Not Given Potassium Chloride (K-Dur 20 Meq Er Tab) 20 meq PO DAILY [facility] Last Admin: 01/25/18 09:54 Dose: 20 meq Ranolazine (Ranexa) 500 mg PO BID [facility] Last Admin: 01/25/18 09:58 Dose: 500 mg Fluticasone/Salmeterol (Advair Diskus 250/50) 1 puff INH RQ12 [facility] Last Admin: 01/25/18 07:28 Dose: Not Given Tiotropium [place] (Spiriva) 18 mcg INH RQ24 [facility] Last Admin: 01/25/18 07:28 Dose: Not Given Vitamin B Complex/Vit C/Folic Acid (Nephro-Karolyn) 1 tab PO Q24H [facility] Last Admin: 01/25/18 08:30 Dose: Not Given Zolpidem Tartrate (Ambien) 5 mg PO HS [facility] Last Admin: 01/24/18 21:05 Dose: 5 mg Physical Exam - Eye Exam Eye Exam: EOMI, PERRL Pupil Exam: PERRL Additional comments: Va OD 20/50 OS 20/100 No APD OU EOMs full OU Confrontational simon R superior quadrant defect OU Sclera White and Quiet OU Conj White and Quiet OU K 2+ PEE OU AC Deep and Quiet OU Lens 2-3+ cataracts OU DFE: nerves pink and sharp OU, CDR 0.3, macula appears flat, retina attached, vessels normal caliber and shape Results - Vital Signs Recent Vital Signs: Last Vital Signs Temp 98.5 F 01/25/18 00:31 Pulse 80 01/25/18 00:31 Resp 20 01/25/18 00:31 BP 145/68 01/25/18 09:58 Pulse Ox 99 01/25/18 00:31 - Labs Result Diagrams: 01/24/18 06:05 01/24/18 06:05 Labs: Laboratory Results - last 24 hr 01/24/18 01/25/18 01/25/18 21:33 06:37 11:42 POC Glucose (mg/dL) 108 105 116 H Assessment & Plan (1) Peripheral visual field defect of both eyes Assessment and Plan: May be chronic given hx of CVA. If no improvement in vision or worsening recommend MRI brain, stroke w/up, neuro involvement Status: Acute (2) Dry eye syndrome of both eyes Assessment and Plan: Preservative free Artificial tears q4hrs OU Status: Acute (3) Cataracts, bilateral Assessment and Plan: Visually significant - outpatient follow-up for refraction and evaluation Status: Acute
--- NOTE | 2018-01-25 21:20 | PN ---
DATE: 01/25/18 SUBJECTIVE: The patient is seen. The patient is very irritable, cursing again today, stating that she is going blind. The patient was sleepy and was early given Dilaudid and then was complaining of vision problems. Today, she was seen earlier by the eye doctor and was diagnosed to have dry eyes and cataracts. The patient was supposed to have some eyedrops. OBJECTIVE: VITAL SIGNS: Temperature is 98.5, pulse 80, blood pressure 145/68, respirations 20, oxygen saturation 99%. REVIEW OF SYSTEMS: GENERAL: The patient is alert, verbal, irritable today, screaming, seen in her room stating that she is going blind. SKIN: No diaphoresis. HEENT: Complaining of visual problems, still hard of hearing. NECK: Supple. RESPIRATORY: Has chronic dyspnea, continuous oxygen treatment. CARDIOVASCULAR: No chest pain. GASTROINTESTINAL: Complaining of abdominal and back pain and complaining of constipation. EXTREMITIES: Has unsteady gait. MUSCULOSKELETAL: Feels weak. NEUROLOGIC: Alert, forgetful. GENITOURINARY: No dysuria. MENTAL STATUS EXAMINATION: Elderly female who looks stated age, oriented x2. Mood is very irritable, labile. Speech is loud, verbally abusive. Affect is reactive. Thought process forgetful. Thought content, the patient wants to go home again complaining of blindness, no psychosis. No suicidal or homicidal ideation. Attention and memory seem to be limited. Insight and judgement limited. Impulse control is guarded at this time. IMPRESSION: History of delirium, metabolic encephalopathy secondary to exacerbation of chronic obstructive pulmonary disease as well as debility and dementia with mood changes. RECOMMENDATIONS The patient is seen, meds reviewed. Continue Xanax p.r.n. as ordered and then may continue the Ambien as ordered. The patient is now taking Ketorolac for pain. The patient is for subacute rehab once her Medicaid application is completed. Demetrius Burdick MD MTDD
[2018-01-26] MEDS: Albuterol-Ipratrop 3 mg / 0.5 (3 ml) UD INH SCH ×4 (01:30→20:58)
[2018-01-26] MEDS: Sodium Chloride 0.45% 1,000 ML IV SCH (05:14)
[2018-01-26] MEDS: Fluticasone-Salmeterol 250-50mcg Diskus INH SCH ×2 (07:56→20:58)
[2018-01-26] MEDS: Tiotropium 18 mcg Cap For Inhalation INH SCH (07:57)
[2018-01-26] MEDS: (Novolin R) Insulin Human Regular 100 units/ml vial SC SCH ×4 (08:15→22:39)
[2018-01-26] MEDS: Multivitamin Vitamin B Complex (Nephro-Vite) Tab PO SCH (08:22)
[2018-01-26] MEDS: Cefepime 0.5 GM in Sodium Chloride 0.9% 100 ML IVPB SCH (09:33)
[2018-01-26] MEDS: Ranolazine 500 mg Extended Release Tablets PO SCH ×2 (09:35→17:01)
[2018-01-26] MEDS: Metoprolol Succinate 50 mg XL Tab PO SCH (09:35)
[2018-01-26] MEDS: Potassium Chloride 20 mEq ER Tab PO SCH (09:35)
[2018-01-26] MEDS: Lidocaine 5% Patch TD SCH (09:37)
[2018-01-26] MEDS: POLYETHYLENE GLYCOL 3350 17 GM/Dose PACKET PO SCH ×2 (09:37→10:48)
--- NOTE | 2018-01-26 10:19 | PN ---
DATE: 01/26/2018 SUBJECTIVE: I came to see her this morning and I walked into her room. She started yelling and cursing at me. She is upset with everybody and everything, and she says she wants to leave the hospital. She is still awaiting for rn social services, case management, insurance to put up together for a safe discharge. MEDICATIONS: She is on Advair, Ambien, Apresoline, aspirin, cefepime, DuoNeb, Fergon, Imdur, potassium, Lasix, Lidoderm, MiraLax, Nephro-stephie, Norvasc, Novolin, Pepcid, Protonix, Ranexa, IV fluids, Spiriva, Toprol, Toradol, Tylenol, Ultram, Xanax, Zofran, and morphine, on stock. PHYSICAL EXAMINATION: VITAL SIGNS: She has a 97.5 temp, 76 pulse, 120/60 blood pressure, 20 respiratory rate, 95% O2 sat on 2 L nasal cannula. HEENT: Head is atraumatic, normocephalic. Throat is moist. NECK: Supple. HEART: Regular rate. LUNGS: Decreased breath sounds but clear. ABDOMEN: Soft. EXTREMITIES: No edema. She is definitely in one of her moods today, not penalized anybody. LABORATORY DATA: Last lab was on 01/24/2018. She has 10.8 white count, 12 hemoglobin, 35.7 hematocrit with 348 platelets. Last blood sugar was 116. Last chemistry was on 01/24/2018 with 137 sodium, BUN was 35, creatinine 1.5, a little bit better than it has been. Sugar was 90, calcium 9.1, total bili is 0.4, AST is 16, ALT is 8, alk phos 49. ASSESSMENT AND PLAN: She is being seen by Psychiatry, Renal, Infectious Disease, and has also a consult with Ophthalmology because she did lose some vision, had blurred vision, and I felt it was all from a cataract. We will continue treatment and care for congestive heart failure, chronic obstructive pulmonary disease, debility, and need to have 24-hour care. We will follow with her. Nan Brown DO [facility] # [id number] MTDJeaneth
[2018-01-26 11:35] LABS: HEMOGLOBIN 10.7 g/dL (11.0-16.0); MEAN CELL VOLUME 87.3 fL (81.0-99.0); MEAN CORPUSCULAR HEMOGLOBIN 29.2 pg (27.0-31.0); MEAN CORPUSCULAR HGB CONC 33.4 g/dL (33.0-37.0); MEAN PLATELET VOLUME 9.1 fL (7.2-11.7); RBC 3.66 Mil/uL (3.80-5.20); RED CELL DISTRIBUTION WIDTH 21.7 % (11.5-14.5); WHITE BLOOD COUNT 11.7 K/uL (4.8-10.8)
[2018-01-26 11:53] LABS: ALB/GLOB RATIO 1.2 (1.0-2.1); ALBUMIN 3.1 g/dL (3.5-5.0); ALT/SGPT < 6 U/L (9-52); AST/SGOT 17 U/L (14-36); BLOOD UREA NITROGEN 41 mg/dL (7-17); CALCIUM 9.1 mg/dl (8.6-10.4); GFR AFRICAN-AMERICAN 38; GFR NON-AFRICAN AMERICAN 32
[2018-01-26] MEDS ORDERED: POLYETHYLENE GLYCOL 3350 17 GM/Dose PACKET PO PRN (15:43)
--- NOTE | 2018-01-26 18:19 | PN ---
DATE: 01/26/2018 SUBJECTIVE: The patient is complaining of severe abdominal pain today. She was given earlier morphine and not eating. Note, the patient is currently on tramadol 50 mg every 8 p.r.n. as well as Toradol 15 mg IV every 6. p.r.n. The patient is very med seeking, will monitor for increasing GI upset as tramadol can irritate the stomach especially when she is taking with no food. PHYSICAL EXAMINATION: VITAL SIGNS: Temperature is 97.5, pulse rate 76, blood pressure is 134/61, respirations is 20 and oxygen saturation is 95%. REVIEW OF SYSTEMS: GENERAL: The patient is alert, verbal, less irritable today, but complaining of severe abdominal pain as well as pain on her side. SKIN: No diaphoresis. HEENT: Still hard of hearing. No headache. NECK: Supple. RESPIRATORY: No dyspnea. CARDIOVASCULAR: No chest pain. GASTROINTESTINAL: The patient is complaining of abdominal pain. Appetite is poor. EXTREMITIES: Still has unsteady gait. MUSCULOSKELETAL: Feels weak. NEUROLOGICAL: Alert and oriented x2, still forgetful. GENITOURINARY: No dysuria. MENTAL STATUS EXAMINATION: Elderly female seen in her room, less irritable but somatic. Affect is reactive. Speech spontaneous. Thought process, forgetful. Thought content, preoccupied of her abdominal pain not relieved by her pain medication. Still wants to go for subacute rehab. No psychosis. No suicidal or homicidal ideation. Attention and memory is still limited. Insight and judgment is limited. Impulse control is fair at this time. IMPRESSION: History of delirium, metabolic encephalopathy secondary to exacerbation of chronic obstructive pulmonary disease as well as dementia with mood changes. PLAN AND RECOMMENDATIONS : The patient is seen, meds reviewed. Continue present management. The patient awaiting completion of Medicaid. The patient is for subacute rehab once medically cleared once she has Medicaid. The patient still cannot go home without 24-hour care and cannot take care of herself alone at this time. Demetrius Burdick MD
[2018-01-27] MEDS: Albuterol-Ipratrop 3 mg / 0.5 (3 ml) UD INH SCH ×4 (01:23→20:15)
[2018-01-27] MEDS: Sodium Chloride 0.45% 1,000 ML IV SCH (05:56)
[2018-01-27] MEDS: Tiotropium 18 mcg Cap For Inhalation INH SCH (07:54)
[2018-01-27] MEDS: Fluticasone-Salmeterol 250-50mcg Diskus INH SCH ×2 (07:55→20:15)
[2018-01-27] MEDS: (Novolin R) Insulin Human Regular 100 units/ml vial SC SCH ×4 (08:09→22:01)
[2018-01-27] MEDS: Multivitamin Vitamin B Complex (Nephro-Vite) Tab PO SCH (08:10)
[2018-01-27] MEDS: Potassium Chloride 20 mEq ER Tab PO SCH (10:37)
[2018-01-27] MEDS: Ranolazine 500 mg Extended Release Tablets PO SCH ×2 (10:38→17:35)
[2018-01-27] MEDS: Metoprolol Succinate 50 mg XL Tab PO SCH (10:38)
[2018-01-27] MEDS: Lidocaine 5% Patch TD SCH ×2 (10:41→13:48)
--- NOTE | 2018-01-27 10:52 | PN ---
DATE: 01/27/2018 SUBJECTIVE: I saw her this morning resting in bed. She is alert. She is eating breakfast. She is much nicer today, not yelling or cursing at me. She is calm. She is on Advair, Ambien, Apresoline, aspirin, Drisdol, DuoNeb, Fergon, Imdur, potassium, Lasix, Lidoderm, MiraLax, Nephro-Karolyn, Norvasc, Novolin, Pepcid, Protonix, Ranexa, IV fluids, Spiriva, Toprol, Toradol, Tylenol, Ultram, Xanax, and Zofran. PHYSICAL EXAMINATION: VITAL SIGNS: Temperature 98.6, 67 pulse, 110/49 blood pressure, 18 respiratory rate, 96% O2 sat on 2 L. HEENT: Head is atraumatic, normocephalic. HEART: Regular rate. LUNGS: Decreased breath sounds, but clear. ABDOMEN: Soft, nontender. EXTREMITIES: No edema. LABORATORY DATA: White count 11.7, 10.7 hemoglobin, 278 platelets. Sodium 142, potassium 4.2, BUN 41, creatinine 1.6, GFR is 32. BUN and creatinine are going up. Sugar is 104, calcium is 9.1, total bili is 0.5, AST is 17, alk phos is 40. I will check her labs tomorrow. ASSESSMENT AND PLAN: Discussed with Renal about the elevated BUN and creatinine, and will continue aggressive treatment and care, waiting for her placement. John Brown DO
--- NOTE | 2018-01-27 19:07 | PN ---
DATE: 01/27/2018. SUBJECTIVE: The patient is seen. The patient complaining of increased abdominal pain not relieved by her pain meds. On review of her medication, the patient started getting morphine p.r.n. but 2 NSAIDs. The patient is on tramadol 50 mg every 8 p.r.n. as well as on Ketorolac 30 mg IV every 6 p.r.n. but the patient has very poor p.o. intake. I discussed with the patient. We will discontinue her tramadol as the patient is taking Ketorolac and also on morphine p.r.n. to reduce her risk of increasing GI upset. PHYSICAL EXAMINATION: VITAL SIGNS: Temperature is 98.6, pulse is 67, blood pressure is 128/70, respirations 18 and oxygen saturation is 96%. REVIEW OF SYSTEMS: GENERAL: She is alert, verbal, forgetful, seen in her room stating my stomach hurts, more pleasant today. SKIN: No diaphoresis. HEENT: Still hard of hearing. No headache. NECK: Supple. RESPIRATORY: No dyspnea. CARDIOVASCULAR: No chest pain. GASTROINTESTINAL: Complaining of abdominal pain. Her p.o. intake is poor. No nausea or vomiting. EXTREMITIES: Gait is unsteady. MUSCULOSKELETAL: Feels weak. NEUROLOGICAL: Alert and oriented x2, but forgetful. GENITOURINARY: No dysuria. MENTAL STATUS EXAMINATION: Elderly female, who looks stated age. Alert and oriented x2. Mood is less irritable. Affect is reactive. Speech spontaneous. Thought process, forgetful. Thought content, very somatic and complaining of abdominal and back pain, partially relieved by her meds. No psychosis. No suicidal or homicidal ideation. Attention and memory is still limited. Insight and judgment is limited. Impulse control is fair at this time. IMPRESSION: History of delirium, metabolic encephalopathy secondary to exacerbation of chronic obstructive pulmonary disease as well as dementia with mood changes, debility, gait dysfunction, history of gastritis, history of congestive heart failure, urinary tract infection. PLAN AND RECOMMENDATIONS : The patient is seen, meds reviewed. Continue present psyche meds as ordered Xanax p.r.n. and the Ambien. We will DC the tramadol p.r.n. for now as the patient is on another NSAID which is Ketorolac. Continue morphine p.r.n. as ordered. The patient is for subacute once she has Medicaid. The patient still cannot go home without 24-hour care. Demetrius Burdick MD MTDJeaneth
[2018-01-28] MEDS: Albuterol-Ipratrop 3 mg / 0.5 (3 ml) UD INH SCH ×4 (02:00→20:45)
[2018-01-28] MEDS: Sodium Chloride 0.45% 1,000 ML IV SCH ×2 (06:25→16:12)
[2018-01-28] MEDS: Fluticasone-Salmeterol 250-50mcg Diskus INH SCH ×2 (07:10→20:45)
[2018-01-28] MEDS: Tiotropium 18 mcg Cap For Inhalation INH SCH (07:10)
[2018-01-28] MEDS: (Novolin R) Insulin Human Regular 100 units/ml vial SC SCH ×4 (07:30→22:43)
[2018-01-28] MEDS: Potassium Chloride 20 mEq ER Tab PO SCH (09:53)
[2018-01-28] MEDS: Ranolazine 500 mg Extended Release Tablets PO SCH ×2 (09:54→17:26)
[2018-01-28] MEDS: Metoprolol Succinate 50 mg XL Tab PO SCH (09:55)
[2018-01-28] MEDS: Multivitamin Vitamin B Complex (Nephro-Vite) Tab PO SCH (09:56)
[2018-01-28] MEDS: Lidocaine 5% Patch TD SCH (09:56)
[2018-01-28 11:33] LABS: HEMOGLOBIN 9.5 g/dL (11.0-16.0); MEAN CELL VOLUME 87.4 fL (81.0-99.0); MEAN CORPUSCULAR HEMOGLOBIN 29.7 pg (27.0-31.0); MEAN PLATELET VOLUME 9.1 fL (7.2-11.7); RBC 3.2 Mil/uL (3.80-5.20); RED CELL DISTRIBUTION WIDTH 21.2 % (11.5-14.5); WHITE BLOOD COUNT 13.9 K/uL (4.8-10.8)
[2018-01-28 11:46] LABS: ALB/GLOB RATIO 1.1 (1.0-2.1); ALBUMIN 2.8 g/dL (3.5-5.0); CALCIUM 8.6 mg/dl (8.6-10.4)
[2018-01-28] MEDS ORDERED: cefTRIAXone IV 1 gm in Dextros 50 ML IVPB SCH (13:30)
--- NOTE | 2018-01-28 14:40 | PN ---
DATE: 01/28/2018 SUBJECTIVE: She is still here. They are still working on finding her Medicaid and getting her out with insurance. She has had less complaints this morning. She is having nauseousness and abdominal pain. I increased the Zofran to 8 mg and also ordered on the CAT scan of the abdomen and pelvis to see if she would let us to that, checking her labs tomorrow. She refused her labs today. She is very noncompliant, but she is not cursing me today, so I will take it. MEDICATIONS: She is on IV fluids, Advair, Ambien, Apresoline, Bactroban ointment for scrape on her right leg, on her weaver, Drisdol, DuoNebs, iron, Imdur, potassium, Lasix, Lidoderm, MiraLax, Nephro-Karolyn, Norvasc, Novolin, Pepcid, Protonix, Ranexa, Spiriva, Toprol, Toradol, Tylenol, Xanax, and Zofran now to 8 mg. PHYSICAL EXAMINATION: VITAL SIGNS: She has a 97.6 temperature, 72 pulse, 146/78 blood pressure, 18 respiratory rate, 98% O2 sat on nasal cannula. HEENT: Head is atraumatic, normocephalic. Throat is moist. NECK: Supple. HEART: Regular rate. LUNGS: Decreased breath sounds bilaterally, poor inspiration. ABDOMEN: Mildly distended per her. No guarding or rebound on palpation, it is soft, though decreased bowel sounds at the present. EXTREMITIES: No edema but there is a scrape to the right weaver. Applied Bactroban cream on it. LABORATORY DATA: She has 140 sodium on 01/28/2018, potassium is 4.7, BUN is 47, creatinine 1.8. The BUN and creatinine are going up renal wants to do about that. Blood sugar is 131, calcium is 8.6, total bilirubin is 0.4, AST is 12, ALT is 8, alkaline phosphatase 45. White count is 13.9, that is going up too; 9.5 hemoglobin; 28 hematocrit; and 243 platelets. ASSESSMENT AND PLAN: She is being seen by Renal, Psychiatry, GI. I am going to call Dr. Torres of Infectious Disease since her white count is going up and will increase her IV fluid rate. We will check her CAT scan of the abdomen and pelvis the abdomina pain, nausea, and vomiting. John Brown DO MTDD
--- NOTE | 2018-01-28 14:42 | CP.PCM.PN ---
Subjective - Date & Time of Evaluation Date of Evaluation: 01/28/18 Time of Evaluation: 07:00 - Subjective Subjective: afeb on rocephin wbc higher ct abd pending cultures repeated Objective - Vital Signs/Intake and Output Vital Signs (last 24 hours): Temp Pulse Resp BP Pulse Ox 97.6 F 72 18 146/78 98 01/28/18 07:00 01/28/18 07:00 01/28/18 07:00 01/28/18 09:52 01/28/18 07:00 Intake and Output: 01/28/18 01/28/18 06:59 18:59 Intake Total 450 Balance 450 - Medications Medications: Current Medications Albuterol/Ipratropium (Duoneb 3 Mg/0.5 Mg (3 Ml) Ud) 3 ml INH RQ6 [facility] Last Admin: 01/28/18 13:10 Dose: Not Given Alprazolam (Xanax) 0.25 mg PO Q8H PRN PRN Reason: Anxiety Stop: 01/31/18 13:14 Last Admin: 01/28/18 03:27 Dose: 0.25 mg Amlodipine Besylate (Norvasc) 10 mg PO QPM [facility] Last Admin: 01/27/18 17:35 Dose: 10 mg Aspirin (Aspirin Chewable) 81 mg PO DAILY [facility] Last Admin: 01/28/18 09:53 Dose: 81 mg Famotidine (Pepcid) 20 mg PO DAILY [facility] Last Admin: 01/28/18 09:52 Dose: 20 mg Furosemide (Lasix) 40 mg PO BID [facility] Last Admin: 01/28/18 09:52 Dose: 40 mg Hydralazine HCl (Apresoline) 100 mg PO TID [facility] Last Admin: 01/28/18 09:53 Dose: 100 mg Ceftriaxone Sodium (Rocephin Iv 1 Gm Duplex) 50 mls @ 100 mls/hr IVPB Q24H [facility] PRN Reason: Protocol Last Admin: 01/28/18 12:54 Dose: 100 mls/hr Sodium Chloride (Sodium Chloride 0.45%) 1,000 mls @ 80 mls/hr IV .[id number] [facility] Insulin Human Regular (Novolin R) 0 unit SC ACHS [facility] PRN Reason: Protocol Last Admin: 01/28/18 14:37 Dose: Not Given Isosorbide Mononitrate (Imdur) 60 mg PO DAILY [facility] Last Admin: 01/28/18 09:53 Dose: 60 mg Ketorolac Tromethamine (Toradol) 30 mg IVP Q6 PRN PRN Reason: Pain, severe (8-10) Last Admin: 01/28/18 13:37 Dose: 30 mg Metoprolol Succinate (Toprol Xl) 50 mg PO DAILY [facility] Last Admin: 01/28/18 09:55 Dose: 50 mg Mupirocin (Bactroban Ointment) 0 gm TOP BID [facility] Ondansetron HCl (Zofran Inj) 8 mg IVP Q8H PRN PRN Reason: Nausea/Vomiting Pantoprazole Sodium (Protonix Inj) 40 mg IVP Q12H [facility] Last Admin: 01/28/18 10:55 Dose: 40 mg Polyethylene Glycol (Miralax) 17 gm PO DAILY PRN PRN Reason: Constipation Last Admin: 01/28/18 09:55 Dose: 17 gm Potassium Chloride (K-Dur 20 Meq Er Tab) 20 meq PO DAILY [facility] Last Admin: 01/28/18 09:53 Dose: 20 meq Ranolazine (Ranexa) 500 mg PO BID [facility] Last Admin: 01/28/18 09:54 Dose: 500 mg Fluticasone/Salmeterol (Advair Diskus 250/50) 1 puff INH RQ12 [facility] Last Admin: 01/28/18 07:10 Dose: Not Given Tiotropium [place] (Spiriva) 18 mcg INH RQ24 [facility] Last Admin: 01/28/18 07:10 Dose: Not Given Zolpidem Tartrate (Ambien) 5 mg PO HS [facility] Last Admin: 01/27/18 22:00 Dose: 5 mg - Labs Labs: 01/28/18 11:24 01/28/18 11:24 PT 13.6 SECONDS (9.7-12.2) H 01/15/18 07:10 INR 1.2 01/15/18 07:10 APTT 34 SECONDS (21-34) 12/09/17 00:22 - Constitutional Appears: Non-toxic, Cachectic, Chronically Ill - Head Exam Head Exam: NORMOCEPHALIC - Eye Exam Eye Exam: PERRL - ENT Exam ENT Exam: Mucous Membranes Dry - Neck Exam Neck Exam: absent: Lymphadenopathy - Respiratory Exam Respiratory Exam: Decreased Breath Sounds - Cardiovascular Exam Cardiovascular Exam: REGULAR RHYTHM - GI/Abdominal Exam GI & Abdominal Exam: Distended, Soft Assessment and Plan (1) Non-ST elevated myocardial infarction (non-STEMI) Status: Acute (2) Peripheral visual field defect of both eyes Status: Acute (3) UTI (urinary tract infection) Status: Acute (4) CHF (congestive heart failure) Status: Chronic
[2018-01-28] MEDS ORDERED: Cefepime IV 1 gm in Dextrose 1 GM/50 ML BAG IVPB SCH (15:00)
[2018-01-28] MEDS: Cefepime IV 1 gm in Dextrose 1 GM/50 ML BAG IVPB SCH (16:09)
--- NOTE | 2018-01-28 16:17 | RAD ---
HISTORY: Rule out pneumonia COMPARISON: Comparison made with prior chest radiograph dated 01/16/2018. Comparison also made with prior CT scan chest dated 12/31/2017. FINDINGS: LUNGS: Interval improvement previously noted diffuse bilateral infiltrates likely representing pulmonary edema/ CHF. Persistent small bilateral effusions. PLEURA: As above. No apparent pneumothorax. CARDIOVASCULAR: Cardiomegaly. OSSEOUS STRUCTURES: No significant abnormalities. VISUALIZED UPPER ABDOMEN: Normal. OTHER FINDINGS: None. IMPRESSION: Interval improvement previously noted pulmonary edema/CHF
[2018-01-28 18:35] LABS: SQUAMOUS EPITHIAL 6 /hpf (0-5); URINE BACTERIA RARE (<OCC); URINE BILIRUBIN NEGATIVE (NEGATIVE); URINE BLOOD NEGATIVE (NEGATIVE); URINE CLARITY Clear (Clear); URINE COLOR Yellow (YELLOW); URINE GLUCOSE (UA) NORMAL (Normal); URINE LEUKOCYTE ESTERASE NEG Leu/uL (Negative); URINE PROTEIN NEGATIVE (NEGATIVE); URINE UROBILINOGEN NORMAL mg/dL (0.2-1.0)
[2018-01-29] MEDS: Sodium Chloride 0.45% 1,000 ML IV SCH ×2 (01:00→04:59)
[2018-01-29] MEDS: (Novolin R) Insulin Human Regular 100 units/ml vial SC SCH ×4 (08:00→21:38)
[2018-01-29] MEDS: Albuterol-Ipratrop 3 mg / 0.5 (3 ml) UD INH SCH ×3 (08:13→20:48)
[2018-01-29] MEDS: Fluticasone-Salmeterol 250-50mcg Diskus INH SCH ×2 (08:13→20:47)
[2018-01-29] MEDS: Tiotropium 18 mcg Cap For Inhalation INH SCH (08:13)
[2018-01-29] MEDS: Potassium Chloride 20 mEq ER Tab PO SCH (09:46)
[2018-01-29] MEDS: Metoprolol Succinate 50 mg XL Tab PO SCH (09:47)
[2018-01-29] MEDS: Ranolazine 500 mg Extended Release Tablets PO SCH ×2 (09:48→17:15)
--- NOTE | 2018-01-29 10:59 | CP.PCM.PN ---
Subjective - Date & Time of Evaluation Date of Evaluation: 01/29/18 Time of Evaluation: 08:00 - Subjective Subjective: events noted afebrile'on cefepime now cultures repeated Objective - Vital Signs/Intake and Output Vital Signs (last 24 hours): Temp Pulse Resp BP Pulse Ox 98.2 F 83 18 154/71 H 96 01/29/18 07:45 01/29/18 07:45 01/29/18 07:45 01/29/18 09:46 01/29/18 07:45 - Medications Medications: Current Medications Albuterol/Ipratropium (Duoneb 3 Mg/0.5 Mg (3 Ml) Ud) 3 ml INH RQ6 [facility] Last Admin: 01/29/18 08:13 Dose: Not Given Alprazolam (Xanax) 0.25 mg PO Q8H PRN PRN Reason: Anxiety Stop: 01/31/18 13:14 Last Admin: 01/29/18 03:22 Dose: 0.25 mg Amlodipine Besylate (Norvasc) 10 mg PO QPM [facility] Last Admin: 01/28/18 17:26 Dose: 10 mg Aspirin (Aspirin Chewable) 81 mg PO DAILY [facility] Last Admin: 01/29/18 09:48 Dose: 81 mg Famotidine (Pepcid) 20 mg PO DAILY [facility] Last Admin: 01/29/18 09:46 Dose: 20 mg Furosemide (Lasix) 40 mg PO BID [facility] Last Admin: 01/29/18 09:46 Dose: 40 mg Hydralazine HCl (Apresoline) 100 mg PO TID [facility] Last Admin: 01/29/18 09:50 Dose: 100 mg Sodium Chloride (Sodium Chloride 0.45%) 1,000 mls @ 80 mls/hr IV .[id number] [facility] Last Admin: 01/29/18 04:59 Dose: 80 mls/hr Cefepime HCl (Maxipime Iv 1 Gm Premix) 1 gm in 50 mls @ 100 mls/hr IVPB Q24H [facility] PRN Reason: Protocol Last Admin: 01/28/18 16:09 Dose: 100 mls/hr Insulin Human Regular (Novolin R) 0 unit SC ACHS [facility] PRN Reason: Protocol Last Admin: 01/28/18 22:43 Dose: Not Given Isosorbide Mononitrate (Imdur) 60 mg PO DAILY [facility] Last Admin: 01/28/18 09:53 Dose: 60 mg Ketorolac Tromethamine (Toradol) 30 mg IVP Q6 PRN PRN Reason: Pain, severe (8-10) Last Admin: 01/29/18 01:35 Dose: 30 mg Metoprolol Succinate (Toprol Xl) 50 mg PO DAILY [facility] Last Admin: 01/29/18 09:47 Dose: 50 mg Mupirocin (Bactroban Ointment) 0 gm TOP BID [facility] Last Admin: 01/29/18 09:47 Dose: 1 applic Ondansetron HCl (Zofran Inj) 8 mg IVP Q8H PRN PRN Reason: Nausea/Vomiting Last Admin: 01/29/18 07:59 Dose: 8 mg Pantoprazole Sodium (Protonix Inj) 40 mg IVP Q12H [facility] Last Admin: 01/29/18 10:32 Dose: 40 mg Polyethylene Glycol (Miralax) 17 gm PO DAILY PRN PRN Reason: Constipation Last Admin: 01/28/18 09:55 Dose: 17 gm Potassium Chloride (K-Dur 20 Meq Er Tab) 20 meq PO DAILY [facility] Last Admin: 01/29/18 09:46 Dose: 20 meq Ranolazine (Ranexa) 500 mg PO BID [facility] Last Admin: 01/29/18 09:48 Dose: 500 mg Fluticasone/Salmeterol (Advair Diskus 250/50) 1 puff INH RQ12 [facility] Last Admin: 01/29/18 08:13 Dose: 1 puff Tiotropium [place] (Spiriva) 18 mcg INH RQ24 [facility] Last Admin: 01/29/18 08:13 Dose: 18 mcg Tramadol HCl (Ultram) 50 mg PO TID PRN PRN Reason: Pain, moderate (4-7) Last Admin: 01/29/18 04:51 Dose: 50 mg Zolpidem Tartrate (Ambien) 5 mg PO HS [facility] Last Admin: 01/28/18 21:25 Dose: 5 mg - Labs Labs: 01/28/18 11:24 01/28/18 11:24 PT 13.6 SECONDS (9.7-12.2) H 01/15/18 07:10 INR 1.2 01/15/18 07:10 APTT 34 SECONDS (21-34) 12/09/17 00:22 - Constitutional Appears: Non-toxic, Cachectic, Chronically Ill - Head Exam Head Exam: NORMOCEPHALIC - Eye Exam Eye Exam: PERRL - ENT Exam ENT Exam: Mucous Membranes Dry - Neck Exam Neck Exam: absent: Lymphadenopathy - Respiratory Exam Respiratory Exam: Decreased Breath Sounds - Cardiovascular Exam Cardiovascular Exam: REGULAR RHYTHM - GI/Abdominal Exam GI & Abdominal Exam: Distended, Soft Assessment and Plan (1) Non-ST elevated myocardial infarction (non-STEMI) Status: Acute (2) Peripheral visual field defect of both eyes Status: Acute (3) UTI (urinary tract infection) Status: Acute (4) CHF (congestive heart failure) Status: Chronic
--- NOTE | 2018-01-29 11:46 | PN ---
DATE: SUBJECTIVE: The patient is resting comfortably in bed this morning, she slept a little bit. She is upset that she still has she has body aches all over the place, she is pain. She is always in bed and never is out of bed, I am going to get her out of bed. PHYSICAL EXAMINATION: VITAL SIGNS: She has a 98.8 temperature, 71 pulse, 147/78 blood pressure, 20 respiratory rate, 96% O2 saturation on room air and nasal cannula. HEENT: Head is atraumatic, normocephalic. HEART: Regular rate. LUNGS: Decreased breath sounds but clear. ABDOMEN: Soft. She had a bowel movement. EXTREMITIES: No edema. MEDICATIONS: She is currently on Advair, Ambien, Apresoline, aspirin, Bactroban, DuoNeb, Imdur, potassium, Lasix, Maxipime, MiraLax, Norvasc, Novolin, Pepcid, Protonix, Ranexa, IV fluids at 80, Spiriva, Toprol, Toradol, Ultram, Xanax, and Zofran. I am going to decrease the IV Lasix to once a day. LABORATORY DATA: She had a 140 sodium yesterday, 4.7 potassium, BUN 47, creatinine 1.8. She had ultrasound of her kidneys, I will discuss this with the kidney doctor. Sugar 160, AST is 12, ALT is 8, alkaline phosphatase 45. White count is also up at 13.9; 9.5 hemoglobin, 28 hematocrit, and 243 platelets. ASSESSMENT AND PLAN: I consulted Infectious Disease for possible change in antibiotics. She is on the cefepime right now. We will try and recheck the labs, happen. Chest x-ray yesterday showed interval improvement of noted pulmonary edema and CHF. I will decrease her Lasix as it will also bother her kidney function. The renal doctor has not been to the chart. I will call Renal back in. Elevated BUN and creatinine. I will check her labs tomorrow. Try to get her out of bed to chair. Hopefully, manager social work could help us get her discharged. Nan Brown DO [facility] # [id number] MTDJeaneth
--- NOTE | 2018-01-29 14:51 | CT ---
PROCEDURE: CT scan of the abdomen and pelvis dated 01/29/2018. HISTORY: Abdominal pain. COMPARISON: Comparison made with CT scan abdomen and pelvis dated 02/22/2014 TECHNIQUE: Contiguous axial images of the abdomen and pelvis performed without oral or intravenous contrast material. Additional 2 dimensional sagittal and coronal reformats generated. Radiation dose: Total exam DLP = This CT exam was performed using one or more of the following dose reduction techniques: Automated exposure control, adjustment of the mA and/or kV according to patient size, and/or use of iterative reconstruction technique. FINDINGS: LOWER THORAX: Heart appears enlarged. . Intravascular compartment exhibits slight low attenuation suggesting underlying anemia. Clinical correlation recommended. . Trace pericardial effusion felt present. There is small to medium-sized left sided effusion and small right-sided effusion. Mild left basilar atelectasis. There is a round/elliptical shaped opacity in the right posterior sulcus that exhibits stellate borders. While this could represent chronic atelectasis and scarring, the possibility of a underlying neoplasm not excluded. Mild localized atelectasis and/or scarring changes seen in the middle lobe and lingular regions. LIVER: Liver exhibits normal size measuring nearly 16 cm in CC dimension. No obvious hepatic mass or collection seen on this noncontrast study. GALLBLADDER AND BILE DUCTS: Gallbladder appears incompletely distended with mild wall thickening likely due to nonfasting state. No definitive evidence of intraluminal gallbladder calculi. PANCREAS: The pancreas appears appears mildly atrophic and fatty replaced. SPLEEN: Spleen exhibits normal size and attenuation pattern. ADRENALS: No adrenal lesions. KIDNEYS AND URETERS: Kidneys demonstrate relatively symmetric size. Numerous calcifications seen within the renal hilar regions bilaterally consistent with vascular calcifications however there may be a few additional nonobstructing renal calculi as well. Small approximately 2.1 cm partially exophytic elliptical shaped low-attenuation focus seen arising from posterolateral cortex consistent with a renal cyst. There is another partially exophytic cyst lower pole left kidney that measures 15 mm which is less well seen on this exam compared the prior study. Small approximately 8 mm cyst posterior cortex lumbar spine mid pole left kidney In addition, there is a partially exophytic small elliptical shaped approximately 8 mm hyperdense focus seen arising from the posterolateral cortex upper/ mid pole left kidney that could represent. Hyperdense cyst. BLADDER: Urinary bladder is partially obscured by significant streak and beam hardening artifact arising from right total hip replacement. Urinary bladder appears incompletely distended which may in part account for thick-walled appearance however correlation with urinalysis recommended. REPRODUCTIVE: At at Uterus is also partially obscured by streak and beam hardening artifact. APPENDIX: Appendix not seen with certainty however no obvious inflammatory changes right lower quadrant of the abdomen. BOWEL: Evaluation of the bowel is limited due to the lack of oral contrast material. The stomach is distended with food debris liquid and air. There are multiple mildly distended fluid-filled loops of small bowel nonspecific. Findings could represent ileus. Possibility of a partial -intermittent or early complete SBO cannot be completely excluded. There is a relatively large amount of stool seen within the cecum and proximal ascending colon suggesting mild localized fecal retention/constipation. Lesser amount stool seen the remainder of the colon. . . There are multiple colonic diverticula seen along sigmoid and distal descending colon. No definitive evidence of acute diverticulitis. PERITONEUM: Unremarkable. No fluid collection. No free air. LYMPH NODES: Unremarkable. No enlarged lymph nodes. VASCULATURE: Extensive vascular calcifications are present. Bilateral iliac artery endovascular stents are present. BONES: Minor chronic appearing anterior stature loss of the L1 segment. Minor multilevel chronic appearing fish-mouth endplate deformities also noted. Mild diffuse demineralization. The remaining vertebral bodies otherwise exhibit relatively normal stature. Vertebral bodies facets normally aligned. . OTHER FINDINGS: None. IMPRESSION: Multiple distended fluid-filled loops of small bowel. Rule out ileus versus partial - intermittent or early complete SBO. Moderate amount of stool seen within the cecum and proximal ascending colon suggesting mild fecal retention/ constipation. Diverticulosis without radiographic evidence of diverticulitis. Small medium size left-sided effusion and minor left basilar atelectasis. Small right-sided effusion. There is an elliptical shaped opacity right lung base with spiculated borders. This could represent chronic atelectasis or scarring. The possibility of There are bilateral renal cysts one of which on the left side is felt to represent a hyperdense cyst followup ultrasound could confirm if necessary. . Bilateral iliac artery endovascular stent grafts present
--- NOTE | 2018-01-29 15:17 | CP.PCM.PN ---
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 Hypertension control with meds as ordered. 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 Monitor Input/Output, daily weights and renal function with basic metabolic panel supplement electrolytes as needed resume iron supplement once GI symptoms better will resume her MVI and weekly Vit D continue with diuretics as lasix 40 mg bid although at expense of higher serum creatinine but with resultant improvement in pulm edema. d/c IVF ordered a dose of dulcolax supp Dose meds/antibiotics for reduced GFR. Avoid fleets enema/magnesium based laxatives. Avoid nephrotoxins/NSAIDs Glycemic control Further work up/management as per primary team. Thanks for allowing me to participate in care of your patient. Please call if any Qs. Dr Shiraz Husain Office: [phone] reason for consult: ETHEL HPI: Pt is a 72 F with hx of diabetes Mellitus (years), hypertension (many years ), CAD s/p stent, PVD s/p iliac stent, Rt Renal artery stenosis 60%, Ca breast s /p chemo presented with complaints of chest pain and SOB, managed for CHF and NSTEMI in past, reported heavy use of NSAIDs as naproxen, up to 10 tab/day for months probably has baseline CKD with Cr 1.0-1.2 with intermittent AKIs 01/29/18: reconsulted as pt labs showed rise in BUN and Cr ROS: She is irritable. wants me to leave, says everything is fine and she want to take rest and sleep. denies short of breath. remains un-copertaive. her nurse bedside. Physical Examination: General Appearance: in no acute respiratory distress , mostly upset Vitals reviewed and noted as below Head; Atraumatic, normocephalic Lungs: Normal respiratory rate/effort. Breath sounds bilateral with basal crackles but overall clearer Heart: Normal rate. s1s2 normal. No rub or gallop. Extremities: no edema. No varicose veins Neurological: Patient is Awake alert Moving all 4 extremities. Abdomen: soft non tender bs+ no organomegaly Psych: Limited insight. Patient is mostly very irritable. MSK: not coperative : kidney and bladder not palpable Labs/imaging reviewed. Past medical history, past surgical history, family history, social history, allergy reviewed and noted as below Family hx: no hx of CKD. Rest non-contributory sono jun 2017: simple cyst. previous CT showed stable complex cyst left kidney echo; moderate to severe TR SPEP/AMY neg, serum FLC assay WNL. Vit D <12.8 PTH 168 TSAT 4% Ferritin 19 Hep B and C neg Objective - Vital Signs/Intake and Output Vital Signs (last 24 hours): Temp Pulse Resp BP Pulse Ox 98.2 F 83 18 154/71 H 96 01/29/18 07:45 01/29/18 07:45 01/29/18 07:45 01/29/18 09:46 01/29/18 07:45 - Medications Medications: Current Medications Albuterol/Ipratropium (Duoneb 3 Mg/0.5 Mg (3 Ml) Ud) 3 ml INH RQ6 [facility] Last Admin: 01/29/18 13:40 Dose: Not Given Alprazolam (Xanax) 0.25 mg PO Q8H PRN PRN Reason: Anxiety Stop: 01/31/18 13:14 Last Admin: 01/29/18 03:22 Dose: 0.25 mg Amlodipine Besylate (Norvasc) 10 mg PO QPM [facility] Last Admin: 01/28/18 17:26 Dose: 10 mg Aspirin (Aspirin Chewable) 81 mg PO DAILY [facility] Last Admin: 01/29/18 09:48 Dose: 81 mg Bisacodyl (Dulcolax) [address] ONCE ONE Stop: 01/29/18 15:10 Famotidine (Pepcid) 20 mg PO DAILY [facility] Last Admin: 01/29/18 09:46 Dose: 20 mg Furosemide (Lasix) 40 mg PO BID [facility] Last Admin: 01/29/18 09:46 Dose: 40 mg Hydralazine HCl (Apresoline) 100 mg PO TID [facility] Last Admin: 01/29/18 14:40 Dose: 100 mg Cefepime HCl (Maxipime Iv 1 Gm Premix) 1 gm in 50 mls @ 100 mls/hr IVPB Q24H [facility] PRN Reason: Protocol Last Admin: 01/28/18 16:09 Dose: 100 mls/hr Insulin Human Regular (Novolin R) 0 unit SC ACHS [facility] PRN Reason: Protocol Last Admin: 01/29/18 12:30 Dose: Not Given Isosorbide Mononitrate (Imdur) 60 mg PO DAILY [facility] Last Admin: 01/29/18 09:50 Dose: 60 mg Ketorolac Tromethamine (Toradol) 30 mg IVP Q6 PRN PRN Reason: Pain, severe (8-10) Last Admin: 01/29/18 12:39 Dose: 30 mg Metoprolol Succinate (Toprol Xl) 50 mg PO DAILY [facility] Last Admin: 01/29/18 09:47 Dose: 50 mg Mupirocin (Bactroban Ointment) 0 gm TOP BID [facility] Last Admin: 01/29/18 09:47 Dose: 1 applic Ondansetron HCl (Zofran Inj) 8 mg IVP Q8H PRN PRN Reason: Nausea/Vomiting Last Admin: 01/29/18 07:59 Dose: 8 mg Pantoprazole Sodium (Protonix Inj) 40 mg IVP Q12H [facility] Last Admin: 01/29/18 10:32 Dose: 40 mg Polyethylene Glycol (Miralax) 17 gm PO DAILY PRN PRN Reason: Constipation Last Admin: 01/28/18 09:55 Dose: 17 gm Potassium Chloride (K-Dur 20 Meq Er Tab) 20 meq PO DAILY [facility] Last Admin: 01/29/18 09:46 Dose: 20 meq Ranolazine (Ranexa) 500 mg PO BID [facility] Last Admin: 01/29/18 09:48 Dose: 500 mg Fluticasone/Salmeterol (Advair Diskus 250/50) 1 puff INH RQ12 [facility] Last Admin: 01/29/18 08:13 Dose: 1 puff Tiotropium [place] (Spiriva) 18 mcg INH RQ24 [facility] Last Admin: 01/29/18 08:13 Dose: 18 mcg Tramadol HCl (Ultram) 50 mg PO TID PRN PRN Reason: Pain, moderate (4-7) Last Admin: 01/29/18 04:51 Dose: 50 mg Zolpidem Tartrate (Ambien) 5 mg PO HS [facility] Last Admin: 01/28/18 21:25 Dose: 5 mg - Labs Labs: 01/28/18 11:24 01/28/18 11:24 PT 13.6 SECONDS (9.7-12.2) H 01/15/18 07:10 INR 1.2 01/15/18 07:10 APTT 34 SECONDS (21-34) 12/09/17 00:22
[2018-01-29] MEDS: Cefepime IV 1 gm in Dextrose 1 GM/50 ML BAG IVPB SCH (17:29)
--- NOTE | 2018-01-29 17:58 | PN ---
DATE: 01/29/2018 SUBJECTIVE: The patient is complaining of nausea when seen. She states not feeling well. . The patient is taking a lot of pain medications. She is on Toradol, again, tramadol and also on three antiemetics. The patient was on Compazine earlier as well as taking Zofran. Right now, the patient is only taking Zofran. The Compazine and the Reglan were discontinued. The patient is still very [place] and irritable. VITAL SIGNS: Temperature is 98.2, pulse is 83, blood pressure is 154/71, respirations 18, and oxygen saturation is 96%. The patient earlier went for CAT scan of the abdomen. REVIEW OF SYSTEMS: GENERAL: The patient is alert, verbal, very irritable, screaming today, wants to be left alone, not in acute respiratory distress. SKIN: No diaphoresis. HEENT: Still hard of hearing. NECK: Supple. RESPIRATORY: No dyspnea. CARDIOVASCULAR: No chest pain. GASTROINTESTINAL: The patient complaining of abdominal pain and feeling nauseous. Has poor appetite. EXTREMITIES: Gait is unsteady. MUSCULOSKELETAL: Feels weak. NEUROLOGICAL: Alert, verbal, and forgetful. GENITOURINARY: No dysuria. MENTAL STATUS EXAMINATION: Elderly female, who looks stated age. Alert and oriented x2. Mood is irritable. Speech is loud; at times, screaming; verbally abusive. Affect is reactive. Thought process, forgetful. Thought content, the patient complaining of feeling nauseous, has no appetite. Still meds seeking. The patient is taking the following the meds today for her pain: The patient is on Ketorolac and tramadol. As stated, no psychosis. No suicidal or homicidal ideation. Attention and memory is still limited. Insight and judgment is limited. Impulse control is guarded at this time. IMPRESSION: Delirium, metabolic encephalopathy secondary to exacerbation of chronic obstructive pulmonary disease, debility, dementia with mood changes. PLAN AND RECOMMENDATIONS : The patient is seen, meds reviewed. Continue present psych meds. The patient is on Ambien for sleep and Xanax p.r.n. for anxiety. Continue treatment plan as outlined. The patient advised to limit the use of NSAIDs, especially use of tramadol again and Ketorolac as this will irritate the stomach. Demetrius Burdick MD [facility] # [id number] MTDJeaneth
[2018-01-30] MEDS: Albuterol-Ipratrop 3 mg / 0.5 (3 ml) UD INH SCH ×4 (01:26→20:26)
[2018-01-30] MEDS: (Novolin R) Insulin Human Regular 100 units/ml vial SC SCH ×4 (07:56→23:00)
[2018-01-30] MEDS: Multivitamin Vitamin B Complex (Nephro-Vite) Tab PO SCH (08:30)
[2018-01-30] MEDS: Tiotropium 18 mcg Cap For Inhalation INH SCH (09:01)
[2018-01-30] MEDS: Fluticasone-Salmeterol 250-50mcg Diskus INH SCH ×2 (09:01→20:27)
[2018-01-30] MEDS: Ergocalciferol 50,000 Intl Units Cap PO SCH (09:49)
[2018-01-30] MEDS: Potassium Chloride 20 mEq ER Tab PO SCH (09:49)
[2018-01-30] MEDS: Metoprolol Succinate 50 mg XL Tab PO SCH (09:49)
[2018-01-30] MEDS: Ranolazine 500 mg Extended Release Tablets PO SCH ×2 (09:50→17:27)
--- NOTE | 2018-01-30 10:28 | PN ---
DATE: 01/30/2018 SUBJECTIVE: She is resting comfortably in bed. No pain this morning. She slept fairly well. She ate okay. She is on Advair, Ambien, Apresoline, aspirin, Bactroban, Drisdol, DuoNebs, Imdur, K-Dur, Lasix 40 p.o. b.i.d. now, Maxipime, MiraLax, Nephro-Karolyn, Norvasc, Novolin, Pepcid, Protonix, Ranexa, Spiriva, Toprol, Toradol, Ultram, Xanax, and Zofran. PHYSICAL EXAMINATION: VITAL SIGNS: 98 temp, 77 pulse, 149/66 blood pressure, 20 respiratory rate, 96% oxygen sat on 2 L. HEENT: Head is atraumatic and normocephalic. She is alert and comfortable. No complaints this morning. No cursing. HEART: Regular rate and rhythm. LUNGS: Clear to auscultation. ABDOMEN: Soft. EXTREMITIES: No edema. LABORATORY DATA: She has a 13.9 white count, 9.5 hemoglobin, and 246 platelets. Sodium 140, potassium 4.7, BUN 47, creatinine 1.8, last blood sugar is 123. Calcium is 8.6, total bili is 0.4, AST is 12, ALT is 8, alkaline phosphatase 45, total protein 7.4. She is waiting for her labs to come back to recheck her kidney function. I discussed with Renal. They said she is doing okay. Keep an eye on the rise in creatinine, but recent studies is not concerned at this time. She is doing well. Continue with progressive treatment and care, waiting for social media marketer and case management to arrange for appropriate discharge today. DISCHARGE PLAN: Continue aggressive treatment and care on Inocencio. Get her out of bed to chair, physical therapy, and meds. John Brown DO
[2018-01-30 14:13] LABS: HEMOGLOBIN 10.5 g/dL (11.0-16.0); MEAN CELL VOLUME 87.9 fL (81.0-99.0); MEAN CORPUSCULAR HEMOGLOBIN 29.5 pg (27.0-31.0); MEAN CORPUSCULAR HGB CONC 33.5 g/dL (33.0-37.0); MEAN PLATELET VOLUME 9.3 fL (7.2-11.7); RBC 3.57 Mil/uL (3.80-5.20); RED CELL DISTRIBUTION WIDTH 20.2 % (11.5-14.5); WHITE BLOOD COUNT 12.6 K/uL (4.8-10.8)
[2018-01-30 14:28] LABS: ALB/GLOB RATIO 1.1 (1.0-2.1); ALBUMIN 2.8 g/dL (3.5-5.0); CALCIUM 8.9 mg/dl (8.6-10.4)
--- NOTE | 2018-01-30 15:35 | CP.PCM.PN ---
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 Hypertension control with meds as ordered. 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 Monitor Input/Output, daily weights and renal function with basic metabolic panel supplement electrolytes as needed resume iron supplement once GI symptoms better will resume her MVI and weekly Vit D lowered diuretics as lasix 20 mg bid due to progressive rise in serum cr. can give prn lasix IV if needed as extra doses Dose meds/antibiotics for reduced GFR. Avoid fleets enema/magnesium based laxatives. Avoid nephrotoxins/NSAIDs Glycemic control Further work up/management as per primary team. Thanks for allowing me to participate in care of your patient. Please call if any Qs. d/w team Dr Shiraz Husain Office: [phone] reason for consult: ETHEL HPI: Pt is a 72 F with hx of diabetes Mellitus (years), hypertension (many years ), CAD s/p stent, PVD s/p iliac stent, Rt Renal artery stenosis 60%, Ca breast s /p chemo presented with complaints of chest pain and SOB, managed for CHF and NSTEMI in past, reported heavy use of NSAIDs as naproxen, up to 10 tab/day for months probably has baseline CKD with Cr 1.0-1.2 with intermittent AKIs 01/29/18: reconsulted as pt labs showed rise in BUN and Cr ROS: She is irritable. denies short of breath. mostly un-copertaive. Physical Examination: General Appearance: in no acute respiratory distress , mostly upset Vitals reviewed and noted as below Head; Atraumatic, normocephalic Lungs: Normal respiratory rate/effort. Breath sounds bilateral with few basal crackles but overall clearer Heart: Normal rate. s1s2 normal. No rub or gallop. Extremities: no edema. No varicose veins Neurological: Patient is Awake alert Moving all 4 extremities. Abdomen: soft non tender bs+ no organomegaly Psych: Limited insight. Patient is mostly very irritable. MSK: not coperative : kidney and bladder not palpable Labs/imaging reviewed. Past medical history, past surgical history, family history, social history, allergy reviewed and noted as below Family hx: no hx of CKD. Rest non-contributory sono jun 2017: simple cyst. previous CT showed stable complex cyst left kidney echo; moderate to severe TR SPEP/AMY neg, serum FLC assay WNL. Vit D <12.8 PTH 168 TSAT 4% Ferritin 19 Hep B and C neg Objective - Vital Signs/Intake and Output Vital Signs (last 24 hours): Temp Pulse Resp BP Pulse Ox 97.6 F 78 16 136/72 100 01/30/18 07:00 01/30/18 14:16 01/30/18 09:47 01/30/18 14:16 01/30/18 07:00 Intake and Output: 01/30/18 01/30/18 06:59 18:59 Intake Total 300 Balance 300 - Medications Medications: Current Medications Albuterol/Ipratropium (Duoneb 3 Mg/0.5 Mg (3 Ml) Ud) 3 ml INH RQ6 [facility] Last Admin: 01/30/18 13:16 Dose: Not Given Alprazolam (Xanax) 0.25 mg PO Q8H PRN PRN Reason: Anxiety Stop: 01/31/18 13:14 Last Admin: 01/29/18 15:41 Dose: 0.25 mg Amlodipine Besylate (Norvasc) 10 mg PO QPM [facility] Last Admin: 01/29/18 17:15 Dose: Not Given Aspirin (Aspirin Chewable) 81 mg PO DAILY [facility] Last Admin: 01/30/18 09:50 Dose: 81 mg Ergocalciferol (Drisdol 50,000 Intl Units Cap) 1 cap PO Q7D [facility] Stop: 02/20/18 10:01 Last Admin: 01/30/18 09:49 Dose: 1 cap Famotidine (Pepcid) 20 mg PO DAILY [facility] Last Admin: 01/30/18 09:49 Dose: 20 mg Furosemide (Lasix) 20 mg PO BID [facility] Hydralazine HCl (Apresoline) 100 mg PO TID [facility] Last Admin: 01/30/18 14:20 Dose: 100 mg Cefepime HCl (Maxipime Iv 1 Gm Premix) 1 gm in 50 mls @ 100 mls/hr IVPB Q24H [facility] PRN Reason: Protocol Last Admin: 01/29/18 17:29 Dose: 100 mls/hr Insulin Human Regular (Novolin R) 0 unit SC ACHS [facility] PRN Reason: Protocol Last Admin: 01/30/18 12:23 Dose: 3 unit Isosorbide Mononitrate (Imdur) 60 mg PO DAILY [facility] Last Admin: 01/30/18 09:49 Dose: 60 mg Ketorolac Tromethamine (Toradol) 30 mg IVP Q6 PRN PRN Reason: Pain, severe (8-10) Last Admin: 01/30/18 10:10 Dose: 30 mg Metoprolol Succinate (Toprol Xl) 50 mg PO DAILY [facility] Last Admin: 01/30/18 09:49 Dose: 50 mg Mupirocin (Bactroban Ointment) 0 gm TOP BID [facility] Last Admin: 01/30/18 09:50 Dose: Not Given Ondansetron HCl (Zofran Inj) 8 mg IVP Q8H PRN PRN Reason: Nausea/Vomiting Last Admin: 01/29/18 16:04 Dose: 8 mg Pantoprazole Sodium (Protonix Inj) 40 mg IVP Q12H [facility] Last Admin: 01/30/18 12:24 Dose: 40 mg Polyethylene Glycol (Miralax) 17 gm PO DAILY PRN PRN Reason: Constipation Last Admin: 01/28/18 09:55 Dose: 17 gm Potassium Chloride (K-Dur 20 Meq Er Tab) 20 meq PO DAILY [facility] Last Admin: 01/30/18 09:49 Dose: 20 meq Ranolazine (Ranexa) 500 mg PO BID [facility] Last Admin: 01/30/18 09:50 Dose: 500 mg Fluticasone/Salmeterol (Advair Diskus 250/50) 1 puff INH RQ12 [facility] Last Admin: 01/30/18 09:01 Dose: Not Given Tiotropium [place] (Spiriva) 18 mcg INH RQ24 [facility] Last Admin: 01/30/18 09:01 Dose: Not Given Tramadol HCl (Ultram) 50 mg PO TID PRN PRN Reason: Pain, moderate (4-7) Last Admin: 01/30/18 14:17 Dose: 50 mg Vitamin B Complex/Vit C/Folic Acid (Nephro-Karolyn) 1 tab PO 0800 [facility] Last Admin: 01/30/18 08:30 Dose: 1 tab Zolpidem Tartrate (Ambien) 5 mg PO HS [facility] Last Admin: 01/29/18 23:50 Dose: 5 mg - Labs Labs: 01/30/18 14:06 01/30/18 14:06 PT 13.6 SECONDS (9.7-12.2) H 01/15/18 07:10 INR 1.2 01/15/18 07:10 APTT 34 SECONDS (21-34) 12/09/17 00:22
[2018-01-30] MEDS: Cefepime IV 1 gm in Dextrose 1 GM/50 ML BAG IVPB SCH (17:27)
[2018-01-31] MEDS: Albuterol-Ipratrop 3 mg / 0.5 (3 ml) UD INH SCH ×3 (01:28→13:50)
[2018-01-31] MEDS: Fluticasone-Salmeterol 250-50mcg Diskus INH SCH ×2 (07:44→20:18)
[2018-01-31] MEDS: Tiotropium 18 mcg Cap For Inhalation INH SCH (07:45)
[2018-01-31] MEDS: (Novolin R) Insulin Human Regular 100 units/ml vial SC SCH ×4 (07:49→22:37)
[2018-01-31] MEDS: Multivitamin Vitamin B Complex (Nephro-Vite) Tab PO SCH (08:43)
[2018-01-31] MEDS: Potassium Chloride 20 mEq ER Tab PO SCH (11:04)
[2018-01-31] MEDS: Ranolazine 500 mg Extended Release Tablets PO SCH ×2 (11:05→18:51)
[2018-01-31] MEDS: Metoprolol Succinate 50 mg XL Tab PO SCH (11:05)
--- NOTE | 2018-01-31 11:06 | PN ---
DATE: SUBJECTIVE: I saw the patient, resting in bed. She slept fairly well. She wants pain meds. She wants to leave the hospital. She is on Advair, Ambien, Apresoline, aspirin, Bactroban cream, Drisdol, DuoNebs, Imdur, potassium, Lasix which is down to 20 mg p.o. b.i.d., Maxipime, MiraLax, Nephro-Karolyn, Norvasc, NovoLog, Pepcid, Protonix, Ranexa, Spiriva, Toprol, Toradol, Ultram, Xanax, and Zofran. PHYSICAL EXAMINATION VITAL SIGNS: Temperature 98, 73 pulse, 127/58 blood pressure, 20 respiratory rate, 98% oxygen sat on room air. HEENT: Head is atraumatic and normocephalic. HEART: Regular rate. LUNGS: Clear to auscultation. Decreased breath sounds. ABDOMEN: Soft. EXTREMITIES: No edema. LABORATORY DATA: She has 12.6 white count which is down a little bit, 10.5 hemoglobin, and 31.4 hematocrit with 304 platelets. Sodium 142, potassium 4.3, BUN 51, creatinine 1.9 falling after we decreased the Lasix to 20 mg twice a day as opposed to 40 twice a day, last blood sugar is 120, calcium 8.9, total bilirubin 0.3, AST 15, ALT 8, alkaline phosphatase 53, total protein 5.5. Proteus mirabilis with gram-positive cocci in the urine. She is being seen by Renal, Psychiatry, Infectious Disease. We will continue with aggressive treatment and care, awaiting placement for her for safe discharge by the social service manager and case management. Continue aggressive treatment and care on her white count is normal and kidney function is back to normal, as well as chronic diseases, CHF, COPD, renal insufficiency, chronic pain. Continue aggressive treatment and care. John Brown DO MTDJeaneth
--- NOTE | 2018-01-31 11:36 | CP.PCM.CON ---
History of Present Illness - History of Present Illness History of Present Illness: PGY-[address] Ignacio. This is a 72 year old female with an extensive past medical history (shown below ) who originally admitted 7 weeks ago for dyspnea and chest pressure and more recently had a UTI. During this admission she developed abdominal pain with nausea and vomiting and a CT abd/pelvis was ordered which showed multiple distended fluid-filled loops of small bowel. General surgery has been consulted due to the possibility of bowel obstruction. On ROS patient complained of abdominal pain for the past few weeks in the epigastric area. She also admits to nausea and has had occasional vomiting in the past few days. She denies appetite changes but states she's been eating less because she doesn't like the food in the hospital. She states she's passing flatus and having normal appearing bowel movements. Denies constipation. It seems she has been receiving daily morphine for much of her admission until recently when pharmacy ran out of morphine and she was switched to tramadol. She denied chest pain, shortness of breath. PMHx: CVA w/ right hemiparesis, CAD w/ 3 vessel disease s/p stent, CHF, COPD, PVD s/p iliac stent, DM2, CKD stage 3, Anemia, HTN, CA left breast s/p chemo PSHx: Cardiac stent, Iliac stent, Portacath insertion and removal, right hip replacement Allergies: Iodine (IV dye) Social Hx: - lives alone, no ETOH use, no drug use, smokes 2 cigarettes a day for past 50 years Family hx: mother of breast cancer, father was alcoholic, sister had breast cancer Code Status: DNR/DNI PMD: Dr Brown Review of Systems - Constitutional Constitutional: absent: Chills, Fever - Cardiovascular Cardiovascular: absent: Chest Pain, Chest Pain at Rest, Dyspnea - Respiratory Respiratory: absent: Dyspnea, Wheezing - Gastrointestinal Gastrointestinal: Abdominal Pain, Nausea, Vomiting. absent: Bloating, Coffee Ground Emesis, Constipation, Cramping, Diarrhea, Excessive Flatus, Hematochezia - Genitourinary Genitourinary: absent: Dysuria - Musculoskeletal Musculoskeletal: Back Pain - Integumentary Integumentary: absent: Bleeding Lesions - Neurological Neurological: absent: Confusion Past Patient History - Infectious Disease Hx of Infectious Diseases: None - Tetanus Immunizations Tetanus Immunization: Unknown - Past Medical History & Family History Past Medical History?: Yes - Past Social History Smoking Status: Former Smoker - CARDIAC Hx Cardiac Disorders: Yes (CHF) Hx Congestive Heart Failure: Yes Hx Hypercholesterolemia: Yes Hx Hypertension: Yes - PULMONARY Hx Chronic Obstructive Pulmonary Disease (COPD): Yes - NEUROLOGICAL HX Cerebrovascular Accident: Yes - HEENT Hx HEENT Problems: Yes Hx Blind: Yes (R. eye) Hx Deafness: Yes ([place], deaf in R. ear) - RENAL Hx Chronic Kidney Disease: Yes - ENDOCRINE/METABOLIC Hx Diabetes Mellitus Type 2: Yes - HEMATOLOGICAL/ONCOLOGICAL Hx Anemia: Yes (blood transfusion) - INTEGUMENTARY Hx Dermatological Problems: No - MUSCULOSKELETAL/RHEUMATOLOGICAL Hx Arthritis: Yes (both hips,left ankle) - GASTROINTESTINAL Hx Gastrointestinal Disorders: Yes Hx Gastroesophageal Reflux: Yes - GENITOURINARY/GYNECOLOGICAL Hx Genitourinary Disorders: No - PSYCHIATRIC Hx Psychophysiologic Disorder: Yes Hx Schizophrenia: Yes Hx Substance Use: No - SURGICAL HISTORY Hx Surgeries: Yes Hx Coronary Stent: Yes - ANESTHESIA Hx Anesthesia: Yes Hx Anesthesia Reactions: No Hx Malignant Hyperthermia: No Meds Allergies/Adverse Reactions: Allergies Allergy/AdvReac Type Severity Reaction Status Date / Time iodine Allergy Severe ANAPHYLAXIS Verified 12/09/17 00:05 iv dye Allergy Severe ANAPHYLAXIS Uncoded 12/09/17 00:05 - Medications Medications: Current Medications Albuterol/Ipratropium (Duoneb 3 Mg/0.5 Mg (3 Ml) Ud) 3 ml INH RQ6 [facility] Last Admin: 01/31/18 07:44 Dose: Not Given Alprazolam (Xanax) 0.25 mg PO Q8H PRN PRN Reason: Anxiety Stop: 01/31/18 13:14 Last Admin: 01/30/18 19:49 Dose: 0.25 mg Amlodipine Besylate (Norvasc) 10 mg PO QPM [facility] Last Admin: 01/30/18 17:27 Dose: 10 mg Aspirin (Aspirin Chewable) 81 mg PO DAILY [facility] Last Admin: 01/31/18 11:05 Dose: 81 mg Ergocalciferol (Drisdol 50,000 Intl Units Cap) 1 cap PO Q7D [facility] Stop: 02/20/18 10:01 Last Admin: 01/30/18 09:49 Dose: 1 cap Famotidine (Pepcid) 20 mg PO DAILY [facility] Last Admin: 01/31/18 11:05 Dose: 20 mg Furosemide (Lasix) 20 mg PO BID [facility] Last Admin: 01/31/18 11:04 Dose: 20 mg Hydralazine HCl (Apresoline) 100 mg PO TID [facility] Last Admin: 01/31/18 11:05 Dose: 100 mg Cefepime HCl (Maxipime Iv 1 Gm Premix) 1 gm in 50 mls @ 100 mls/hr IVPB Q24H [facility] PRN Reason: Protocol Last Admin: 01/30/18 17:27 Dose: 100 mls/hr Insulin Human Regular (Novolin R) 0 unit SC ACHS [facility] PRN Reason: Protocol Last Admin: 01/31/18 07:49 Dose: Not Given Isosorbide Mononitrate (Imdur) 60 mg PO DAILY [facility] Last Admin: 01/31/18 11:03 Dose: 60 mg Ketorolac Tromethamine (Toradol) 30 mg IVP Q6 PRN PRN Reason: Pain, severe (8-10) Last Admin: 01/31/18 11:13 Dose: 30 mg Metoprolol Succinate (Toprol Xl) 50 mg PO DAILY [facility] Last Admin: 01/31/18 11:05 Dose: 50 mg Mupirocin (Bactroban Ointment) 0 gm TOP BID [facility] Last Admin: 01/31/18 11:06 Dose: 1 applic Ondansetron HCl (Zofran Inj) 8 mg IVP Q8H PRN PRN Reason: Nausea/Vomiting Last Admin: 01/31/18 04:27 Dose: 8 mg Pantoprazole Sodium (Protonix Inj) 40 mg IVP Q12H [facility] Last Admin: 01/30/18 23:46 Dose: 40 mg Polyethylene Glycol (Miralax) 17 gm PO DAILY PRN PRN Reason: Constipation Last Admin: 01/28/18 09:55 Dose: 17 gm Potassium Chloride (K-Dur 20 Meq Er Tab) 20 meq PO DAILY [facility] Last Admin: 01/31/18 11:04 Dose: 20 meq Ranolazine (Ranexa) 500 mg PO BID [facility] Last Admin: 01/31/18 11:05 Dose: 500 mg Fluticasone/Salmeterol (Advair Diskus 250/50) 1 puff INH RQ12 [facility] Last Admin: 01/31/18 07:44 Dose: Not Given Tiotropium [place] (Spiriva) 18 mcg INH RQ24 [facility] Last Admin: 01/31/18 07:45 Dose: Not Given Tramadol HCl (Ultram) 50 mg PO TID PRN PRN Reason: Pain, moderate (4-7) Last Admin: 01/31/18 02:46 Dose: 50 mg Vitamin B Complex/Vit C/Folic Acid (Nephro-Karolyn) 1 tab PO 0800 [facility] Last Admin: 01/31/18 08:43 Dose: Not Given Zolpidem Tartrate (Ambien) 5 mg PO HS [facility] Last Admin: 01/30/18 22:22 Dose: 5 mg Physical Exam - Additional Findings Additional findings: - Constitutional Appears: Well, No Acute Distress, Confused - Head Exam Head Exam: ATRAUMATIC, NORMOCEPHALIC - Eye Exam Eye Exam: Normal appearance - ENT Exam ENT Exam: Mucous Membranes Moist, Normal Exam - Neck Exam Neck exam: Positive for: Normal Inspection - Respiratory Exam Respiratory Exam: Breath sounds bilateral decreased at bases with few wheeze absent: Chest Wall Tenderness, Decreased Breath Sounds, Rales - Cardiovascular Exam Cardiovascular Exam: REGULAR RHYTHM, +S1, +S2 - GI/Abdominal Exam GI & Abdominal Exam: Normal Bowel Sounds, Soft. absent: Guarding, Hernia, Organomegaly, Rebound, Rigid, Tenderness - Extremities Exam Extremities exam: Negative for: joint swelling, pedal edema - Neurological Exam Neurological exam: Alert, Altered - Psychiatric Exam Psychiatric exam: Agitated - Skin Skin Exam: Dry, Intact, Normal Color, Warm Results - Vital Signs Recent Vital Signs: Last Vital Signs Temp 98.3 F 01/31/18 07:00 Pulse 75 01/31/18 07:00 Resp 20 01/31/18 07:00 BP 152/62 H 01/31/18 11:04 Pulse Ox 94 L 01/31/18 07:00 - Labs Result Diagrams: 01/30/18 14:06 01/30/18 14:06 Labs: Laboratory Results - last 24 hr 01/30/18 01/30/18 01/30/18 14:06 14:06 16:25 WBC 12.6 H RBC 3.57 L Hgb 10.5 L Hct 31.4 L MCV 87.9 MCH 29.5 MCHC 33.5 RDW 20.2 H Plt Count 304 MPV 9.3 Sodium 142 Potassium 4.3 Chloride 104 Carbon Dioxide 25 Anion Gap 17 BUN 51 H Creatinine 1.9 H Est GFR ( Amer) 31 Est GFR (Non-Af Amer) 26 POC Glucose (mg/dL) 127 H Random Glucose 112 H Calcium 8.9 Total Bilirubin 0.3 AST 15 ALT 8 L Alkaline Phosphatase 53 Total Protein 5.5 L Albumin 2.8 L Globulin 2.6 Albumin/Globulin Ratio 1.1 01/30/18 01/31/18 21:12 06:14 WBC RBC Hgb Hct MCV MCH MCHC RDW Plt Count MPV Sodium Potassium Chloride Carbon Dioxide Anion Gap BUN Creatinine Est GFR ( Amer) Est GFR (Non-Af Amer) POC Glucose (mg/dL) 162 H 120 H Random Glucose Calcium Total Bilirubin AST ALT Alkaline Phosphatase Total Protein Albumin Globulin Albumin/Globulin Ratio Assessment & Plan - Assessment and Plan (Free Text) Assessment: Patient is a 72yo female with triple vessel CAD with prior PCI and recommendation for CABG (pt refusing intervention), peripheral vascular disease , CHF, CKD, severe pulmonary hypertension, COPD, prior CVA, DVT, breast cancer s /p chemotherapy who presented to the hospital with chest pain and abd pain: -CT abd/pelvis reviewed - showed multiple distended fluid-filled loops of small bowel -Patient having daily normal appearing bowel movements -Likely ileus 2/2 narcotics, SBO less likely -Clears for now, continue bowel regimen with miralax 17g PO BID -Place NG tube to low suction if pt starts to vomit -Avoid narcotics -Continue to treat ongoing medical issues per primary team -No surgical intervention indicated at this time
--- NOTE | 2018-01-31 14:32 | PN ---
DATE: 01/31/18 SUBJECTIVE: The patient is seen. The patient was earlier very irritable demanding to sign out, stating that she wants to go home. The patient made aware of her CAT scan of the abdomen results that showed possible partial or early small bowel obstruction, as well as to rule out ileus; the patient is still complaining of persistent abdominal pain. The patient has agreed to stay in hospital. She states the patient was seen by surgery to evaluate her abdomen. She is still complaining of abdominal pain, but more reasonable when told about her abdominal findings through the CAT scan. OBJECTIVE: VITAL SIGNS: Temperature is 98.3, pulse 75, blood pressure 152/62, respiration is 20, oxygen saturation 94% room air. The patient continues oxygen treatment. REVIEW OF SYSTEMS: CONSTITUTIONAL: The patient is alert, verbal, still forgetful, still screaming at times and verbally abusive, not in acute respiratory distress. SKIN: No diaphoresis. HEENT: Hard of hearing. No headache. NECK: Supple. RESPIRATORY: No dyspnea. CARDIOVASCULAR: No chest pain. GASTROINTESTINAL: The patient is complaining of persistent abdominal pain, but able to tolerate soup when she was eating. No nausea, no vomiting. EXTREMITIES: Gait is unsteady. MUSCULOSKELETAL: Feels weak. NEUROLOGICAL: Alert with periods of forgetfulness. GENITOURINARY: No dysuria. MENTAL STATUS EXAMINATION: Elderly female who looks stated age. Mood is still very irritable. Affect is reactive. Mood is easily agitated. Speech is loud, verbally abusive. Thought process, forgetful. Thought content, still wants to go home. No paranoia. No suicidal or homicidal ideation. Attention and memory still limited. Insight and judgement limited. Impulse control is guarded at this time. The patient told and is aware that she will be seen by Dr. Ignacio for evaluation to rule out her small bowel obstruction as well as abdominal pain. IMPRESSION History of delirium secondary to exacerbation of chronic obstructive pulmonary disease superimposed on dementia, to rule out small-bowel obstruction, history of urinary tract infection, history of congestive heart failure, debility. RECOMMENDATIONS The patient is seen, meds reviewed. Continue present management. Continue present psych meds. The patient is for surgical consult evaluation with Dr. Ignacio. Continue treatment plan as outlined. The patient still cannot go home without 24-hour care. Demetrius Burdick MD [facility] # [id number] MTDJeaneth
--- NOTE | 2018-01-31 15:05 | CP.PCM.PN ---
Subjective - Date & Time of Evaluation Date of Evaluation: 01/31/18 Time of Evaluation: 15:04 - Subjective Subjective: Nephrology Consultation Note: Assessment: stable Pulmonary edema on CXR 01/16/18 now improved, Constipation NSTEMI, CHF/COPD exacerbation with pleural effusions/pulm congestion Acute Kidney Injury (N17.9) possibly due to CHF/cardiorenal, hemodynamic CAD with 3 vessel disease Diabetic chronic Kidney Disease (E11.22) Hypertensive Chronic Kidney Disease (I12.9) Chronic Kidney Disease (N18.3) Stage 3 with 1.7 gram proteinuria (R80.9) likely due to ETHEL, NSAIDs Anemia (D64.9), HTN (I12.9), Rt JASON 60%, PVD, CAD, CA breast renal cysts vit D def Plan No acute need for renal replacement therapy at this time. Hypertension control with meds as ordered. 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 Monitor Input/Output, daily weights and renal function with basic metabolic panel supplement electrolytes as needed resume iron supplement once GI symptoms better. can resume her MVI and weekly Vit D lowered diuretics as lasix 20 mg bid due to progressive rise in serum cr. can give prn lasix IV if needed as extra doses Dose meds/antibiotics for reduced GFR. Avoid fleets enema/magnesium based laxatives. Avoid nephrotoxins/NSAIDs Glycemic control Further work up/management as per primary team. Thanks for allowing me to participate in care of your patient. Please call if any Qs. will sign off. Dr Shiraz Husain Office: [phone] reason for consult: ETHEL HPI: Pt is a 72 F with hx of diabetes Mellitus (years), hypertension (many years ), CAD s/p stent, PVD s/p iliac stent, Rt Renal artery stenosis 60%, Ca breast s /p chemo presented with complaints of chest pain and SOB, managed for CHF and NSTEMI in past, reported heavy use of NSAIDs as naproxen, up to 10 tab/day for months probably has baseline CKD with Cr 1.0-1.2 with intermittent AKIs 01/29/18: reconsulted as pt labs showed rise in BUN and Cr ROS: As soon as I entered in to her room, pt started yelling and screaming, verbally abusive and using foul language Physical Examination: Pt refused to be seen Labs/imaging reviewed. Past medical history, past surgical history, family history, social history, allergy reviewed and noted as below Family hx: no hx of CKD. Rest non-contributory sono jun 2017: simple cyst. previous CT showed stable complex cyst left kidney echo; moderate to severe TR SPEP/AMY neg, serum FLC assay WNL. Vit D <12.8 PTH 168 TSAT 4% Ferritin 19 Hep B and C neg Objective - Vital Signs/Intake and Output Vital Signs (last 24 hours): Temp Pulse Resp BP Pulse Ox 98.3 F 75 20 152/62 H 94 L 01/31/18 07:00 01/31/18 07:00 01/31/18 07:00 01/31/18 11:04 01/31/18 07:00 Intake and Output: 01/31/18 01/31/18 06:59 18:59 Intake Total 800 Balance 800 - Medications Medications: Current Medications Albuterol/Ipratropium (Duoneb 3 Mg/0.5 Mg (3 Ml) Ud) 3 ml INH RQ6 [facility] Last Admin: 01/31/18 13:50 Dose: Not Given Amlodipine Besylate (Norvasc) 10 mg PO QPM [facility] Last Admin: 01/30/18 17:27 Dose: 10 mg Aspirin (Aspirin Chewable) 81 mg PO DAILY [facility] Last Admin: 01/31/18 11:05 Dose: 81 mg Ergocalciferol (Drisdol 50,000 Intl Units Cap) 1 cap PO Q7D [facility] Stop: 02/20/18 10:01 Last Admin: 01/30/18 09:49 Dose: 1 cap Famotidine (Pepcid) 20 mg PO DAILY [facility] Last Admin: 01/31/18 11:05 Dose: 20 mg Furosemide (Lasix) 20 mg PO BID [facility] Last Admin: 01/31/18 11:04 Dose: 20 mg Hydralazine HCl (Apresoline) 100 mg PO TID [facility] Last Admin: 01/31/18 13:42 Dose: Not Given Cefepime HCl (Maxipime Iv 1 Gm Premix) 1 gm in 50 mls @ 100 mls/hr IVPB Q24H [facility] PRN Reason: Protocol Last Admin: 01/30/18 17:27 Dose: 100 mls/hr Insulin Human Regular (Novolin R) 0 unit SC ACHS [facility] PRN Reason: Protocol Last Admin: 01/31/18 12:13 Dose: Not Given Isosorbide Mononitrate (Imdur) 60 mg PO DAILY [facility] Last Admin: 01/31/18 11:03 Dose: 60 mg Ketorolac Tromethamine (Toradol) 30 mg IVP Q6 PRN PRN Reason: Pain, severe (8-10) Last Admin: 01/31/18 11:13 Dose: 30 mg Metoprolol Succinate (Toprol Xl) 50 mg PO DAILY [facility] Last Admin: 01/31/18 11:05 Dose: 50 mg Mupirocin (Bactroban Ointment) 0 gm TOP BID [facility] Last Admin: 01/31/18 11:06 Dose: 1 applic Ondansetron HCl (Zofran Inj) 8 mg IVP Q8H PRN PRN Reason: Nausea/Vomiting Last Admin: 01/31/18 04:27 Dose: 8 mg Pantoprazole Sodium (Protonix Inj) 40 mg IVP Q12H [facility] Last Admin: 01/31/18 12:27 Dose: 40 mg Polyethylene Glycol (Miralax) 17 gm PO DAILY PRN PRN Reason: Constipation Last Admin: 01/28/18 09:55 Dose: 17 gm Potassium Chloride (K-Dur 20 Meq Er Tab) 20 meq PO DAILY [facility] Last Admin: 01/31/18 11:04 Dose: 20 meq Ranolazine (Ranexa) 500 mg PO BID [facility] Last Admin: 01/31/18 11:05 Dose: 500 mg Fluticasone/Salmeterol (Advair Diskus 250/50) 1 puff INH RQ12 [facility] Last Admin: 01/31/18 07:44 Dose: Not Given Tiotropium [place] (Spiriva) 18 mcg INH RQ24 [facility] Last Admin: 01/31/18 07:45 Dose: Not Given Tramadol HCl (Ultram) 50 mg PO TID PRN PRN Reason: Pain, moderate (4-7) Last Admin: 01/31/18 02:46 Dose: 50 mg Vitamin B Complex/Vit C/Folic Acid (Nephro-Karolyn) 1 tab PO 0800 [facility] Last Admin: 01/31/18 08:43 Dose: Not Given Zolpidem Tartrate (Ambien) 5 mg PO HS [facility] Last Admin: 01/30/18 22:22 Dose: 5 mg - Labs Labs: 01/30/18 14:06 01/30/18 14:06 PT 13.6 SECONDS (9.7-12.2) H 01/15/18 07:10 INR 1.2 01/15/18 07:10 APTT 34 SECONDS (21-34) 12/09/17 00:22
--- NOTE | 2018-01-31 16:10 | CP.PCM.PN ---
<Leland Medel - Last Filed: 01/31/18 16:11> Subjective - Date & Time of Evaluation Date of Evaluation: 01/31/18 Time of Evaluation: 04:00 - Subjective Subjective: PGY4 GI Follow-up Pt seen and examined bedside +flatus denies any nausea or vomiting Denies any abd pain ROS: 12 point ROS conducted, neg other than above Objective - Vital Signs/Intake and Output Vital Signs (last 24 hours): Temp Pulse Resp BP Pulse Ox 98.3 F 75 20 152/62 H 94 L 01/31/18 07:00 01/31/18 07:00 01/31/18 07:00 01/31/18 11:04 01/31/18 07:00 Intake and Output: 01/31/18 01/31/18 06:59 18:59 Intake Total 800 Balance 800 - Medications Medications: Current Medications Albuterol/Ipratropium (Duoneb 3 Mg/0.5 Mg (3 Ml) Ud) 3 ml INH RQ6 [facility] Last Admin: 01/31/18 13:50 Dose: Not Given Amlodipine Besylate (Norvasc) 10 mg PO QPM [facility] Last Admin: 01/30/18 17:27 Dose: 10 mg Aspirin (Aspirin Chewable) 81 mg PO DAILY [facility] Last Admin: 01/31/18 11:05 Dose: 81 mg Ergocalciferol (Drisdol 50,000 Intl Units Cap) 1 cap PO Q7D [facility] Stop: 02/20/18 10:01 Last Admin: 01/30/18 09:49 Dose: 1 cap Famotidine (Pepcid) 20 mg PO DAILY [facility] Last Admin: 01/31/18 11:05 Dose: 20 mg Furosemide (Lasix) 20 mg PO BID [facility] Last Admin: 01/31/18 11:04 Dose: 20 mg Hydralazine HCl (Apresoline) 100 mg PO TID [facility] Last Admin: 01/31/18 13:42 Dose: Not Given Cefepime HCl (Maxipime Iv 1 Gm Premix) 1 gm in 50 mls @ 100 mls/hr IVPB Q24H [facility] PRN Reason: Protocol Last Admin: 01/30/18 17:27 Dose: 100 mls/hr Insulin Human Regular (Novolin R) 0 unit SC ACHS [facility] PRN Reason: Protocol Last Admin: 01/31/18 12:13 Dose: Not Given Isosorbide Mononitrate (Imdur) 60 mg PO DAILY [facility] Last Admin: 01/31/18 11:03 Dose: 60 mg Ketorolac Tromethamine (Toradol) 30 mg IVP Q6 PRN PRN Reason: Pain, severe (8-10) Last Admin: 01/31/18 11:13 Dose: 30 mg Metoprolol Succinate (Toprol Xl) 50 mg PO DAILY [facility] Last Admin: 01/31/18 11:05 Dose: 50 mg Mupirocin (Bactroban Ointment) 0 gm TOP BID [facility] Last Admin: 01/31/18 11:06 Dose: 1 applic Ondansetron HCl (Zofran Inj) 8 mg IVP Q8H PRN PRN Reason: Nausea/Vomiting Last Admin: 01/31/18 04:27 Dose: 8 mg Pantoprazole Sodium (Protonix Inj) 40 mg IVP Q12H [facility] Last Admin: 01/31/18 12:27 Dose: 40 mg Polyethylene Glycol (Miralax) 17 gm PO DAILY PRN PRN Reason: Constipation Last Admin: 01/28/18 09:55 Dose: 17 gm Potassium Chloride (K-Dur 20 Meq Er Tab) 20 meq PO DAILY [facility] Last Admin: 01/31/18 11:04 Dose: 20 meq Ranolazine (Ranexa) 500 mg PO BID [facility] Last Admin: 01/31/18 11:05 Dose: 500 mg Fluticasone/Salmeterol (Advair Diskus 250/50) 1 puff INH RQ12 [facility] Last Admin: 01/31/18 07:44 Dose: Not Given Tiotropium [place] (Spiriva) 18 mcg INH RQ24 [facility] Last Admin: 01/31/18 07:45 Dose: Not Given Tramadol HCl (Ultram) 50 mg PO TID PRN PRN Reason: Pain, moderate (4-7) Last Admin: 01/31/18 02:46 Dose: 50 mg Vitamin B Complex/Vit C/Folic Acid (Nephro-Karolyn) 1 tab PO 0800 [facility] Last Admin: 01/31/18 08:43 Dose: Not Given Zolpidem Tartrate (Ambien) 5 mg PO HS [facility] Last Admin: 01/30/18 22:22 Dose: 5 mg - Labs Labs: 01/30/18 14:06 01/30/18 14:06 PT 13.6 SECONDS (9.7-12.2) H 01/15/18 07:10 INR 1.2 01/15/18 07:10 APTT 34 SECONDS (21-34) 12/09/17 00:22 - Constitutional Appears: Well, No Acute Distress - Head Exam Head Exam: ATRAUMATIC, NORMOCEPHALIC - Eye Exam Eye Exam: Normal appearance - ENT Exam ENT Exam: Mucous Membranes Moist - Neck Exam Neck Exam: Normal Inspection - Respiratory Exam Respiratory Exam: Clear to Ausculation Bilateral, NORMAL BREATHING PATTERN. absent: Rales, Rhonchi, Wheezes, Respiratory Distress - Cardiovascular Exam Cardiovascular Exam: REGULAR RHYTHM, +S1, +S2 - GI/Abdominal Exam GI & Abdominal Exam: Soft, Hypoactive Bowel Sounds. absent: Firm, Guarding, Rigid, Tenderness, Organomegaly - Extremities Exam Extremities Exam: absent: Joint Swelling, Pedal Edema - Neurological Exam Neurological Exam: Alert, Awake, Oriented x3 - Psychiatric Exam Psychiatric exam: Normal Affect, Normal Mood - Skin Skin Exam: Dry, Intact, Normal Color, Warm Assessment and Plan - Assessment and Plan (Free Text) Assessment: Patient is a 72yo female with triple vessel CAD with prior PCI and recommendation for CABG (pt refusing intervention), peripheral vascular disease , CHF, CKD, severe pulmonary hypertension, COPD, prior CVA, DVT, breast cancer s /p chemotherapy who presented to the hospital with chest pain and abd pain. Chronic abdominal pain Partial SBO vs ileus Hx of PUD Severe CAD COPD with pulmonary HTN CKD Chronic opioid use Plan: -Continue supportive care with pain control and anti-emetics -Continue bowel regimen with miralax 17g PO BID -CT abd reviewed and revealed dilated bowel loops and stool retention throughout colon -Surgery on board -Place NG tube to low suction if pt starts to vomit -avois narcotics -clears for now -Monitor labs -Continue to treat ongoing medical issues per primary team Will D/W Dr. Cordoba <Scott Cordoba - Last Filed: 02/01/18 08:09> Objective - Vital Signs/Intake and Output Vital Signs (last 24 hours): Temp Pulse Resp BP Pulse Ox 98.4 F 78 20 158/69 H 97 02/01/18 04:00 02/01/18 04:00 02/01/18 04:00 02/01/18 04:00 02/01/18 04:00 - Medications Medications: Current Medications Amlodipine Besylate (Norvasc) 10 mg PO QPM [facility] Last Admin: 01/31/18 18:51 Dose: Not Given Aspirin (Aspirin Chewable) 81 mg PO DAILY [facility] Last Admin: 01/31/18 11:05 Dose: 81 mg Ergocalciferol (Drisdol 50,000 Intl Units Cap) 1 cap PO Q7D [facility] Stop: 02/20/18 10:01 Last Admin: 01/30/18 09:49 Dose: 1 cap Famotidine (Pepcid) 20 mg PO DAILY [facility] Last Admin: 01/31/18 11:05 Dose: 20 mg Furosemide (Lasix) 20 mg PO BID [facility] Last Admin: 01/31/18 17:23 Dose: 20 mg Hydralazine HCl (Apresoline) 100 mg PO TID [facility] Last Admin: 01/31/18 17:23 Dose: 100 mg Cefepime HCl (Maxipime Iv 1 Gm Premix) 1 gm in 50 mls @ 100 mls/hr IVPB Q24H [facility] PRN Reason: Protocol Last Admin: 01/31/18 17:27 Dose: 100 mls/hr Insulin Human Regular (Novolin R) 0 unit SC ACHS [facility] PRN Reason: Protocol Last Admin: 01/31/18 22:37 Dose: Not Given Isosorbide Mononitrate (Imdur) 60 mg PO DAILY [facility] Last Admin: 01/31/18 11:03 Dose: 60 mg Ketorolac Tromethamine (Toradol) 30 mg IVP Q6 PRN PRN Reason: Pain, severe (8-10) Last Admin: 01/31/18 23:22 Dose: 30 mg Metoprolol Succinate (Toprol Xl) 50 mg PO DAILY [facility] Last Admin: 01/31/18 11:05 Dose: 50 mg Mupirocin (Bactroban Ointment) 0 gm TOP BID [facility] Last Admin: 01/31/18 17:27 Dose: Not Given Ondansetron HCl (Zofran Inj) 8 mg IVP Q8H PRN PRN Reason: Nausea/Vomiting Last Admin: 02/01/18 03:43 Dose: 8 mg Pantoprazole Sodium (Protonix Inj) 40 mg IVP Q12H [facility] Last Admin: 02/01/18 00:00 Dose: Not Given Polyethylene Glycol (Miralax) 17 gm PO BID [facility] Last Admin: 01/31/18 17:27 Dose: Not Given Potassium Chloride (K-Dur 20 Meq Er Tab) 20 meq PO DAILY [facility] Last Admin: 01/31/18 11:04 Dose: 20 meq Ranolazine (Ranexa) 500 mg PO BID [facility] Last Admin: 01/31/18 18:51 Dose: Not Given Fluticasone/Salmeterol (Advair Diskus 250/50) 1 puff INH RQ12 [facility] Last Admin: 01/31/18 20:18 Dose: Not Given Tiotropium [place] (Spiriva) 18 mcg INH RQ24 [facility] Last Admin: 01/31/18 07:45 Dose: Not Given Tramadol HCl (Ultram) 50 mg PO TID PRN PRN Reason: Pain, moderate (4-7) Last Admin: 02/01/18 04:59 Dose: 50 mg Vitamin B Complex/Vit C/Folic Acid (Nephro-Karolyn) 1 tab PO 0800 [facility] Last Admin: 01/31/18 08:43 Dose: Not Given Zolpidem Tartrate (Ambien) 5 mg PO HS [facility] Last Admin: 01/31/18 23:24 Dose: 5 mg - Labs Labs: 01/30/18 14:06 01/30/18 14:06 PT 13.6 SECONDS (9.7-12.2) H 01/15/18 07:10 INR 1.2 01/15/18 07:10 APTT 34 SECONDS (21-34) 12/09/17 00:22 Attending/Attestation - Attestation I have personally seen and examined this patient.: Yes I have fully participated in the care of the patient.: Yes I have reviewed all pertinent clinical information, including history, physical exam and plan: Yes Notes (Text): 01/31/18 18:07 72 year old female with h/o multiple medical problems including CAD, Pulm HTN, as above, who has abdominal pain and distention, found to have small bowel obstruction vs ileus. She is on chronic opiate therapy for pain. She also refuses most treatments for this problem including NGT insertion. She continues to eat. She also is adamantly opposed to surgical intervention. Would treat supportively for now with anti-emetics, minimize opiates, bowel regimen, and PPI.
[2018-01-31] MEDS: Cefepime IV 1 gm in Dextrose 1 GM/50 ML BAG IVPB SCH (17:27)
[2018-01-31] MEDS: POLYETHYLENE GLYCOL 3350 17 GM/Dose PACKET PO SCH (17:27)
[2018-02-01] MEDS: Fluticasone-Salmeterol 250-50mcg Diskus INH SCH ×2 (08:36→20:15)
[2018-02-01] MEDS: Tiotropium 18 mcg Cap For Inhalation INH SCH (08:36)
[2018-02-01] MEDS: (Novolin R) Insulin Human Regular 100 units/ml vial SC SCH ×4 (08:56→22:36)
--- NOTE | 2018-02-01 09:27 | PN ---
DATE: SUBJECTIVE: She is sleeping comfortably at this time. She was given some tramadol. She has some abdominal pain here and there, some aches in her bones. I believe Case Management and professor of social work tried to talk to her yesterday and she was not that cooperative. MEDICATIONS: She is on Advair, Ambien, Apresoline, aspirin, Bactroban, Drisdol, Imdur, potassium, Lasix down to 20 p.o. b.i.d., Maxipime, MiraLax, Nephro-Karolyn, Norvasc, Novolin, Pepcid, Protonix, Ranexa, Spiriva, metoprolol, Toradol, Ultram, and Zofran. PHYSICAL EXAMINATION: VITAL SIGNS: She has a 98.4 temp, 78 pulse, 158/69 blood pressure, 20 respiratory rate, and 97% O2 saturation on 2 L. HEENT: Head is atraumatic and normocephalic. HEART: Regular rate. LUNGS: Decreased breath sounds, but clear. ABDOMEN: Soft, nontender at this time. Positive bowel sounds. EXTREMITIES: No edema. LABORATORY DATA: Last labs on 01/30/2018, she has 12.6 white count, 10.5 hemoglobin, and 304 platelets. Sodium 142, potassium 4.3, BUN 61, creatinine 1.9, so we decreased the Lasix, sugar is 120. Total bili is 0.3, AST is 15, ALT is 8, alkaline phosphatase is 53. She is being seen by Renal, Psych, Infectious Disease, Surgery. Also, she had a possible small-bowel obstruction like the ileus secondary to narcotics, avoid narcotics. I tried to place an NG tube, she would not do it, if she started with nausea and vomiting, she did not and she is on MiraLax now twice a day, hopefully that will keep the bowels moving. I will see about getting her a bowel movement. Check on her labs tomorrow. Check on her renal function. Nan Brown DO MTDJeaneth
[2018-02-01] MEDS: Potassium Chloride 20 mEq ER Tab PO SCH (11:29)
[2018-02-01] MEDS: Multivitamin Vitamin B Complex (Nephro-Vite) Tab PO SCH (11:29)
[2018-02-01] MEDS: Ranolazine 500 mg Extended Release Tablets PO SCH ×2 (11:30→18:06)
[2018-02-01] MEDS: POLYETHYLENE GLYCOL 3350 17 GM/Dose PACKET PO SCH ×2 (11:35→18:05)
[2018-02-01] MEDS: Metoprolol Succinate 50 mg XL Tab PO SCH (11:35)
--- NOTE | 2018-02-01 15:20 | CP.PCM.PN ---
<Leland Medel - Last Filed: 02/01/18 15:20> Subjective - Date & Time of Evaluation Date of Evaluation: 02/01/18 Time of Evaluation: 08:00 - Subjective Subjective: PGY4 GI Follow-up Pt seen and examined bedside +flatus denies any nausea or vomiting Denies any abd pain +BM in the AM (large) ROS: 12 point ROS conducted, neg other than above Objective - Vital Signs/Intake and Output Vital Signs (last 24 hours): Temp Pulse Resp BP Pulse Ox 97.9 F 89 20 146/63 98 02/01/18 07:30 02/01/18 07:30 02/01/18 07:30 02/01/18 11:30 02/01/18 07:30 - Medications Medications: Current Medications Amlodipine Besylate (Norvasc) 10 mg PO QPM [facility] Last Admin: 01/31/18 18:51 Dose: Not Given Aspirin (Aspirin Chewable) 81 mg PO DAILY [facility] Last Admin: 02/01/18 10:45 Dose: 81 mg Ergocalciferol (Drisdol 50,000 Intl Units Cap) 1 cap PO Q7D [facility] Stop: 02/20/18 10:01 Last Admin: 01/30/18 09:49 Dose: 1 cap Famotidine (Pepcid) 20 mg PO DAILY [facility] Last Admin: 02/01/18 11:29 Dose: 20 mg Furosemide (Lasix) 20 mg PO BID [facility] Last Admin: 02/01/18 11:30 Dose: 20 mg Hydralazine HCl (Apresoline) 100 mg PO TID [facility] Last Admin: 02/01/18 14:29 Dose: 100 mg Cefepime HCl (Maxipime Iv 1 Gm Premix) 1 gm in 50 mls @ 100 mls/hr IVPB Q24H [facility] PRN Reason: Protocol Last Admin: 01/31/18 17:27 Dose: 100 mls/hr Insulin Human Regular (Novolin R) 0 unit SC ACHS [facility] PRN Reason: Protocol Last Admin: 02/01/18 11:39 Dose: Not Given Isosorbide Mononitrate (Imdur) 60 mg PO DAILY [facility] Last Admin: 02/01/18 10:45 Dose: 60 mg Ketorolac Tromethamine (Toradol) 30 mg IVP Q6 PRN PRN Reason: Pain, severe (8-10) Last Admin: 01/31/18 23:22 Dose: 30 mg Metoprolol Succinate (Toprol Xl) 50 mg PO DAILY [facility] Last Admin: 02/01/18 11:35 Dose: 50 mg Mupirocin (Bactroban Ointment) 0 gm TOP BID [facility] Last Admin: 02/01/18 10:45 Dose: 1 applic Ondansetron HCl (Zofran Inj) 8 mg IVP Q8H PRN PRN Reason: Nausea/Vomiting Last Admin: 02/01/18 03:43 Dose: 8 mg Pantoprazole Sodium (Protonix Inj) 40 mg IVP Q12H [facility] Last Admin: 02/01/18 11:37 Dose: 40 mg Polyethylene Glycol (Miralax) 17 gm PO BID [facility] Last Admin: 02/01/18 11:35 Dose: 17 gm Potassium Chloride (K-Dur 20 Meq Er Tab) 20 meq PO DAILY [facility] Last Admin: 02/01/18 11:29 Dose: 20 meq Ranolazine (Ranexa) 500 mg PO BID [facility] Last Admin: 02/01/18 11:30 Dose: 500 mg Fluticasone/Salmeterol (Advair Diskus 250/50) 1 puff INH RQ12 [facility] Last Admin: 02/01/18 08:36 Dose: Not Given Tiotropium Whipple (Spiriva) 18 mcg INH RQ24 [facility] Last Admin: 02/01/18 08:36 Dose: Not Given Tramadol HCl (Ultram) 50 mg PO TID PRN PRN Reason: Pain, moderate (4-7) Last Admin: 02/01/18 04:59 Dose: 50 mg Vitamin B Complex/Vit C/Folic Acid (Nephro-Karolyn) 1 tab PO 0800 [facility] Last Admin: 02/01/18 11:29 Dose: 1 tab Zolpidem Tartrate (Ambien) 5 mg PO HS [facility] Last Admin: 01/31/18 23:24 Dose: 5 mg - Labs Labs: 01/30/18 14:06 01/30/18 14:06 PT 13.6 SECONDS (9.7-12.2) H 01/15/18 07:10 INR 1.2 01/15/18 07:10 APTT 34 SECONDS (21-34) 12/09/17 00:22 - Constitutional Appears: Well, No Acute Distress - Head Exam Head Exam: ATRAUMATIC, NORMOCEPHALIC - Eye Exam Eye Exam: Normal appearance. absent: Scleral icterus - ENT Exam ENT Exam: Mucous Membranes Moist, Normal Exam - Neck Exam Neck Exam: Normal Inspection - Respiratory Exam Respiratory Exam: Clear to Ausculation Bilateral, NORMAL BREATHING PATTERN. absent: Rales, Rhonchi, Wheezes, Respiratory Distress - Cardiovascular Exam Cardiovascular Exam: REGULAR RHYTHM, +S1, +S2 - GI/Abdominal Exam GI & Abdominal Exam: Soft, Normal Bowel Sounds. absent: Distended, Firm, Guarding, Rigid, Tenderness, Organomegaly - Extremities Exam Extremities Exam: absent: Joint Swelling, Pedal Edema - Neurological Exam Neurological Exam: Alert, Awake, Oriented x3 - Psychiatric Exam Psychiatric exam: Normal Affect, Normal Mood - Skin Skin Exam: Dry, Intact, Normal Color, Warm Assessment and Plan - Assessment and Plan (Free Text) Assessment: Patient is a 72yo female with triple vessel CAD with prior PCI and recommendation for CABG (pt refusing intervention), peripheral vascular disease , CHF, CKD, severe pulmonary hypertension, COPD, prior CVA, DVT, breast cancer s /p chemotherapy who presented to the hospital with chest pain and abd pain. Chronic abdominal pain Partial SBO vs ileus (resolved) Hx of PUD Severe CAD COPD with pulmonary HTN CKD Chronic opioid use Plan: -Continue supportive care with pain control and anti-emetics -Continue bowel regimen with miralax 17g PO BID -CT abd reviewed and revealed dilated bowel loops and stool retention throughout colon -Surgery on board -Place NG tube to low suction if pt starts to vomit -avoid narcotics -advance diet as tolerated -should be discharged on miralax BID at home daily -will sign off D/W Dr. Canela <Carlos Canela - Last Filed: 02/01/18 16:12> Objective - Vital Signs/Intake and Output Vital Signs (last 24 hours): Temp Pulse Resp BP Pulse Ox 97.9 F 89 20 146/63 98 02/01/18 07:30 02/01/18 07:30 02/01/18 07:30 02/01/18 11:30 02/01/18 07:30 - Medications Medications: Current Medications Amlodipine Besylate (Norvasc) 10 mg PO QPM [facility] Last Admin: 01/31/18 18:51 Dose: Not Given Aspirin (Aspirin Chewable) 81 mg PO DAILY [facility] Last Admin: 02/01/18 10:45 Dose: 81 mg Ergocalciferol (Drisdol 50,000 Intl Units Cap) 1 cap PO Q7D [facility] Stop: 02/20/18 10:01 Last Admin: 01/30/18 09:49 Dose: 1 cap Famotidine (Pepcid) 20 mg PO DAILY [facility] Last Admin: 02/01/18 11:29 Dose: 20 mg Furosemide (Lasix) 20 mg PO BID [facility] Last Admin: 02/01/18 11:30 Dose: 20 mg Hydralazine HCl (Apresoline) 100 mg PO TID [facility] Last Admin: 02/01/18 14:29 Dose: 100 mg Cefepime HCl (Maxipime Iv 1 Gm Premix) 1 gm in 50 mls @ 100 mls/hr IVPB Q24H [facility] PRN Reason: Protocol Last Admin: 01/31/18 17:27 Dose: 100 mls/hr Insulin Human Regular (Novolin R) 0 unit SC ACHS [facility] PRN Reason: Protocol Last Admin: 02/01/18 11:39 Dose: Not Given Isosorbide Mononitrate (Imdur) 60 mg PO DAILY [facility] Last Admin: 02/01/18 10:45 Dose: 60 mg Ketorolac Tromethamine (Toradol) 30 mg IVP Q6 PRN PRN Reason: Pain, severe (8-10) Last Admin: 01/31/18 23:22 Dose: 30 mg Metoprolol Succinate (Toprol Xl) 50 mg PO DAILY [facility] Last Admin: 02/01/18 11:35 Dose: 50 mg Mupirocin (Bactroban Ointment) 0 gm TOP BID [facility] Last Admin: 02/01/18 10:45 Dose: 1 applic Ondansetron HCl (Zofran Inj) 8 mg IVP Q8H PRN PRN Reason: Nausea/Vomiting Last Admin: 02/01/18 03:43 Dose: 8 mg Pantoprazole Sodium (Protonix Inj) 40 mg IVP Q12H [facility] Last Admin: 02/01/18 11:37 Dose: 40 mg Polyethylene Glycol (Miralax) 17 gm PO BID [facility] Last Admin: 02/01/18 11:35 Dose: 17 gm Potassium Chloride (K-Dur 20 Meq Er Tab) 20 meq PO DAILY [facility] Last Admin: 02/01/18 11:29 Dose: 20 meq Ranolazine (Ranexa) 500 mg PO BID [facility] Last Admin: 02/01/18 11:30 Dose: 500 mg Fluticasone/Salmeterol (Advair Diskus 250/50) 1 puff INH RQ12 [facility] Last Admin: 02/01/18 08:36 Dose: Not Given Tiotropium Whipple (Spiriva) 18 mcg INH RQ24 [facility] Last Admin: 02/01/18 08:36 Dose: Not Given Tramadol HCl (Ultram) 50 mg PO TID PRN PRN Reason: Pain, moderate (4-7) Last Admin: 02/01/18 04:59 Dose: 50 mg Vitamin B Complex/Vit C/Folic Acid (Nephro-Karolyn) 1 tab PO 0800 [facility] Last Admin: 02/01/18 11:29 Dose: 1 tab Zolpidem Tartrate (Ambien) 5 mg PO HS [facility] Last Admin: 01/31/18 23:24 Dose: 5 mg - Labs Labs: 01/30/18 14:06 01/30/18 14:06 PT 13.6 SECONDS (9.7-12.2) H 01/15/18 07:10 INR 1.2 01/15/18 07:10 APTT 34 SECONDS (21-34) 12/09/17 00:22 Attending/Attestation - Attestation I have personally seen and examined this patient.: Yes I have fully participated in the care of the patient.: Yes I have reviewed all pertinent clinical information, including history, physical exam and plan: Yes Notes (Text): 02/01/18 16:09 I have seen and examined patient with GI fellow. She is seen ambulating in hallway with physical therapist, appears comfortable. Her abdominal pain is significantly improved after having bowel movement this morning. She denies nausea, vomiting, fever/chills. Tolerating PO diet without difficulty. Review of vitals from today are normal. CAD PVD CHF COPD History of breast cancer s/p chemotherapy Abdominal pain, constipation/ileus - resolving - Diet as tolerated - Maintain aggressive bowel regimen to prevent recurrent constipation symptoms - Limit use of narcotic pain medication as this may worsen existing constipation - Further plan as per medical team. No planned GI intervention, will sign off case. Please reconsult as necessary, thank you.
--- NOTE | 2018-02-01 15:39 | PN ---
DATE: 02/01/2018 SUBJECTIVE: The patient is seen. The patient is less irritable today. Has complained of abdominal pain. The patient is off narcotics as the patient has partial small-bowel obstruction. The patient has been moving her bowels, may be related to her end stage of narcotics. The patient is only on Toradol and Ultram. She has some periods of confusion today and was unsure if she was in the hospital or not. PHYSICAL EXAMINATION: VITAL SIGNS: Temperature 97.9, pulse rate 89, blood pressure is 130/56, respirations 20, oxygen saturations 98%. The patient continues oxygen treatment. REVIEW OF SYSTEMS: GENERAL: Alert with periods of confusion. Seen in her room. Still irritable. Not in acute respiratory distress. SKIN: No diaphoresis. HEENT: Still hard of hearing. NECK: Supple. RESPIRATORY: Continues oxygen treatment. CARDIOVASCULAR: No chest pain. GASTROINTESTINAL: Complaining of not moving her bowels today. The patient is complaining of abdominal pain. EXTREMITIES: Still complaining of weakness. Gait, steady gait. MUSCULOSKELETAL: Still has back pain. NEUROLOGICAL: Alert with periods of forgetfulness. GENITOURINARY: No dysuria. MENTAL STATUS EXAMINATION: Elderly female, who looks stated age. Alert and oriented x2, but still has periods of confusion. Speech is spontaneous. Affect is reactive. Mood is still irritable. Thought process, confused off and on. Thought content, the patient still wants to go home. She wants her friend Guido to take some of her things home. No paranoia. No suicidal or homicidal ideation. Attention and memory still limited. Insight and judgment limited. Impulse control is fair at this time. IMPRESSION: History of delirium, metabolic encephalopathy secondary to exacerbation of chronic obstructive pulmonary disease as well as history of dementia, partial small-bowel obstruction. PLAN AND RECOMMENDATIONS: The patient is seen, meds reviewed. Continue present management. The patient was seen by Dr. Ignacio yesterday for surgical consult. The patient at this time is still unsafe for discharge to home without 24-hour care. Demetrius Burdick MD
[2018-02-01 16:49] LABS: HEMOGLOBIN 9.4 g/dL (11.0-16.0); MEAN CELL VOLUME 87.1 fL (81.0-99.0); MEAN CORPUSCULAR HEMOGLOBIN 29.3 pg (27.0-31.0); MEAN CORPUSCULAR HGB CONC 33.6 g/dL (33.0-37.0); RBC 3.2 Mil/uL (3.80-5.20); RED CELL DISTRIBUTION WIDTH 18.9 % (11.5-14.5); WHITE BLOOD COUNT 7.8 K/uL (4.8-10.8)
[2018-02-01 17:02] LABS: ALBUMIN 2.8 g/dL (3.5-5.0); CALCIUM 8.8 mg/dl (8.6-10.4)
[2018-02-01] MEDS: Cefepime IV 1 gm in Dextrose 1 GM/50 ML BAG IVPB SCH (17:58)
[2018-02-02] MEDS: Fluticasone-Salmeterol 250-50mcg Diskus INH SCH ×2 (07:52→19:45)
[2018-02-02] MEDS: Tiotropium 18 mcg Cap For Inhalation INH SCH (07:52)
[2018-02-02] MEDS: (Novolin R) Insulin Human Regular 100 units/ml vial SC SCH ×4 (08:30→22:11)
[2018-02-02] MEDS: Multivitamin Vitamin B Complex (Nephro-Vite) Tab PO SCH (08:46)
[2018-02-02] MEDS: Ranolazine 500 mg Extended Release Tablets PO SCH ×2 (10:02→19:03)
[2018-02-02] MEDS: Metoprolol Succinate 50 mg XL Tab PO SCH (10:02)
[2018-02-02] MEDS: POLYETHYLENE GLYCOL 3350 17 GM/Dose PACKET PO SCH ×4 (10:03→19:03)
[2018-02-02] MEDS: Potassium Chloride 20 mEq ER Tab PO SCH ×2 (10:03→13:23)
--- NOTE | 2018-02-02 13:53 | PN ---
DATE: 02/02/2018 SUBJECTIVE: I saw her this morning. She slept fairly well. She had multiple bowel movements yesterday. Her belly is softer today. She is feeling better today. She was actually out of the room, walking the halls yesterday. She is on Advair, Ambien, Apresoline, aspirin, Bactroban ointment, Drisdol, Imdur, potassium, Lasix, Maxipime, MiraLax, Nephro-Karolyn, Norvasc, Novolin, Pepcid, Protonix, Ranexa, Spiriva, Toprol, Toradol, Ultram, and Zofran. PHYSICAL EXAMINATION GENERAL: She is in good spirits this morning, comfortable, smiling, alert. No real complaints of pain and pleasant. VITAL SIGNS: She has 98.9 temperature, 81 pulse, 149/71 blood pressure, 20 respiratory rate, 98% oxygen sat on 2 L nasal cannula. HEENT: Head is atraumatic and normocephalic. Throat is moist. NECK: Supple. HEART: Regular rate. LUNGS: Decreased breath sounds, but clear to auscultation. ABDOMEN: Soft. Positive bowel sounds. Nontender. EXTREMITIES: No edema. LABORATORY DATA: She has a 7.8 white count, less than 10, which is great; 9.4 hemoglobin; 27.8 hematocrit with 279 platelets. Sodium 139, potassium 4.9, BUN 49, creatinine 1.7, a bit better GFR is 29. Sugar is 120, calcium 8.8, total bilirubin 0.4, AST is 10, ALT is 13, alkaline phosphatase 50. Total protein is 5.4. was good, but she had 10,000 to 50,000 multiple species gram-positive cocci. She is being seen by GI, Psychiatry, Renal, Surgery. I think, lowering the Lasix will help her. She is less dehydrated still on Maxipime and her white count is down. Continue aggressive treatment and care. Awaiting placement. Also, she has CHF, COPD, renal insufficiency, . John Brown DO [facility] # [id number] KENNETH
[2018-02-02] MEDS: Cefepime IV 1 gm in Dextrose 1 GM/50 ML BAG IVPB SCH (19:02)
--- NOTE | 2018-02-02 19:22 | PN ---
DATE: 02/02/2018 SUBJECTIVE: The patient is seen. The patient is screaming "I want a roast beef sandwich with lettuce and tomatoes." The patient today states that she feels very hungry. The patient moved her bowels five times today and has not been taking narcotics. She said the food that was given to her is not enough for her. The patient has full liquid diet, but wants her diet to be advanced. She said that all her paper works for her Medicaid application have been in place. VITAL SIGNS: Temperature is 98.2, pulse 72, blood pressure 148/66, respirations 20, oxygen saturation 99%. REVIEW OF SYSTEMS: GENERAL: Alert and oriented x3 with periods of forgetfulness. Less irritable today. Not in acute respiratory distress. The patient complaining of feeling very hungry and wants a roast beef sandwich. SKIN: No diaphoresis. HEENT: Still hard of hearing. No headache. NECK: Supple. RESPIRATORY: No dyspnea, currently on continuous oxygen treatment. CARDIOVASCULAR: No chest pain. GASTROINTESTINAL: Feels very hungry. She states she moved her bowels five times. No abdominal pain. No nausea or vomiting and wants a roast beef sandwich. EXTREMITIES: Gait is steady. MUSCULOSKELETAL: Feels weak. NEUROLOGIC: Alert with periods of forgetfulness due to her dementia. MENTAL STATUS EXAMINATION: Elderly female who looks stated age, oriented x3, but forgetful, less irritable and stapleton today. Speech, spontaneous. Affect is reactive. The patient is demanding roast beef sandwich, states she feels hungry. Thought process, forgetful. Thought content, no psychosis. No suicidal or homicidal ideation. The patient wants to advance her diet. Attention and memory still limited. Insight and judgment are limited. Impulse control is fair at this time. IMPRESSION: History of delirium, metabolic encephalopathy secondary to exacerbation of chronic obstructive pulmonary disease as well as history of dementia with mood changes. PLAN AND RECOMMENDATIONS: The patient is seen. Medications reviewed. Continue present management. At this time, I agree the patient's diet can be advanced as she is not having abdominal pain and she had moved her bowels. Continue present psych medications. The patient is for subacute rehab once her Medicaid is in place. The patient cannot go home at this time without 24-hour care, and the patient has Medicaid. Demetrius Burdick MD [facility] # [id number] MTDJeaneth
[2018-02-03] MEDS: Tiotropium 18 mcg Cap For Inhalation INH SCH (07:59)
[2018-02-03] MEDS: Fluticasone-Salmeterol 250-50mcg Diskus INH SCH ×2 (07:59→20:03)
[2018-02-03] MEDS: (Novolin R) Insulin Human Regular 100 units/ml vial SC SCH ×4 (08:30→22:00)
[2018-02-03] MEDS: Multivitamin Vitamin B Complex (Nephro-Vite) Tab PO SCH (08:39)
--- NOTE | 2018-02-03 11:27 | PN ---
DATE: 02/03/2018 SUBJECTIVE: I saw her in bed, very upset this morning. Does not want to be here anymore, cursing, threatening to sign out AMA. Refusing blood tests. Very miserable, upset about everything. Not eating much. She is on Advair, Ambien, Apresoline, aspirin, Bactroban cream, Drisdol, Imdur, Lasix, Maxipime, MiraLAX, Nephro-Karolyn, Norvasc, Novolin, Pepcid, Protonix, Ranexa, Spiriva, Toprol, Toradol, Ultram, and Zofran. PHYSICAL EXAMINATION: VITAL SIGNS: She has a 98 temp, 84 pulse, 160/65 blood pressure, 20 respiratory rate, 99% O2 saturations on 2 L nasal cannula. GENERAL: She is very upset, mean, and nasty. HEENT: Head is atraumatic and normocephalic. HEART: Regular rate. LUNGS: Decreased breath sounds, but clear. ABDOMEN: Soft, nontender. Positive bowel sounds. EXTREMITIES: No edema. She was able to walk the other day. LABORATORY DATA: She has a 7.8 white count, 9.4 hemoglobin, 27.8 hematocrit, platelets. Sodium 139, potassium 4.9, BUN 29, creatinine 1.7, better. Sugar is 92, calcium is 8.8, total bili is 0.4, AST is 10, ALT is 13, alk phos is 50, total protein is 5.4. ASSESSMENT AND PLAN: She has been seen by Psychiatry, Gastroenterology, Infectious Disease. She is on antibiotics. I am hoping we could discontinue the antibiotics soon. I will try another blood test. If the white count stays normal again, we will probably discontinue the intravenous fluids. I am hoping she will let us get the blood test tomorrow, she refused it today. Hopefully, she will be in a better mood and I tried to calm her down, but was unsuccessful. She has congestive heart failure, chronic obstructive pulmonary disease, infection, urinary tract infection, ileus, chronic pain. Awaiting social services analyst and insurance company to plan safe arrangements on her discharge. John Brown DO [facility]
[2018-02-03] MEDS: Metoprolol Succinate 50 mg XL Tab PO SCH (11:43)
[2018-02-03] MEDS: Ranolazine 500 mg Extended Release Tablets PO SCH ×2 (11:44→17:35)
[2018-02-03] MEDS: POLYETHYLENE GLYCOL 3350 17 GM/Dose PACKET PO SCH ×2 (11:47→17:38)
[2018-02-03] MEDS: Divalproex 125 mg Sprinkle Capsule PO SCH (17:35)
--- NOTE | 2018-02-03 21:06 | PN ---
DATE: SUBJECTIVE: The patient's mood is very labile. The patient has been screaming at staff and alternating being pleasant to the staff, and then one moment, screaming and weeping, verbally abusive. The patient wants to go home. She is complaining of abdominal pain, wants narcotic but the patient told she can have narcotics because of her GI problems. She is also insisting that she wants to go home so she can take care of her two pets. The patient is even nonambulatory still, very irritable, stapleton, verbally abusive, and has very unrealistic demands. According to the nurse in duty, she wanted some food. She was given three different kinds of food but the patient refused all of them. PHYSICAL EXAMINATION: VITAL SIGNS: Temperature is 98.1, pulse 75, blood pressure 119/67, respirations 20, oxygen saturation 100%. REVIEW OF SYSTEMS: The patient is alert, verbal, forgetful, but very labile. Not in acute respiratory distress, demanding she wants food, but does not want eat, and then also wants narcotic pain medications. Skin: No diaphoresis. HEENT: Still hard of hearing. No headache. Neck: Supple. Respiratory: Continuous oxygen treatment. Cardiovascular: No chest pain. Gastrointestinal: Complaining of abdominal pain, wants narcotics, and very picky what she wants to eat. Extremities: Gait is unsteady. Musculoskeletal: Feels weak. Alert with periods of confusion. MENTAL STATUS EXAMINATION: Elderly female who looks stated age. Mood is labile, irritable. Affect is labile. Speech is loud at times. Screaming profanities. Thought process, forgetful. Thought content, the patient has very unrealistic demands. Staff is having hard time meeting her demands as the patient keeps changing what she wants. No suicidal or homicidal ideation. Still preoccupied about going home. Attention and memory still limited. Insight and judgment limited. Impulse control is guarded at this time. IMPRESSION: History of delirium, metabolic encephalopathy secondary to exacerbation of chronic obstructive pulmonary disease as well as dementia with mood changes as well as history of hypertension, congestive heart failure. PLAN AND RECOMMENDATIONS: The patient is seen. Medications reviewed. We will continue the Ambien 5 mg at bedtime as well as Xanax p.r.n., but the patient needs a mood stabilizer as her behavior is getting worse. The patient's mood is so labile that is affecting the ability of the nursing staff to care for her. This patient's mood has been fluctuating so much and her demands have become so unrealistic. We will put her on Depakote sprinkles 250 mg twice a day for mood stabilization as well as to continue her other psychiatric medication. The patient is for subacute rehabilitation once her Medicaid has been completed, but the patient needs her behavior to be more mellow prior to going to the rehabilitation. At this time, she still cannot take care of herself alone to discharge to home. Demetrius Burdick MD [facility]
[2018-02-04] MEDS: (Novolin R) Insulin Human Regular 100 units/ml vial SC SCH ×4 (07:37→21:36)
[2018-02-04] MEDS: Fluticasone-Salmeterol 250-50mcg Diskus INH SCH (08:02)
[2018-02-04] MEDS: Tiotropium 18 mcg Cap For Inhalation INH SCH (08:03)
[2018-02-04] MEDS: Metoprolol Succinate 50 mg XL Tab PO SCH (09:25)
[2018-02-04] MEDS: Ranolazine 500 mg Extended Release Tablets PO SCH ×2 (09:26→17:06)
[2018-02-04] MEDS: Divalproex 125 mg Sprinkle Capsule PO SCH ×2 (09:26→17:06)
[2018-02-04] MEDS: POLYETHYLENE GLYCOL 3350 17 GM/Dose PACKET PO SCH ×2 (09:27→17:06)
[2018-02-04] MEDS: Multivitamin Vitamin B Complex (Nephro-Vite) Tab PO SCH (09:29)
--- NOTE | 2018-02-05 06:20 | PN ---
DATE: 02/04/2018 SUBJECTIVE: The patient in better mood today. She was started on Depakote and today was asking for some walker, she wanted to walk. The patient was referred to physical therapy for more walking exercises. The patient still wants to go home, but she realized she cannot walk. The patient was tolerating Depakote 250 mg p.o. b.i.d. to keep her mood more stable and mellow. The patient is more polite and cooperative. OBJECTIVE: VITAL SIGNS: Temperature 97.7, pulse 75, blood pressure 131/59, respirations 20, oxygen saturation 99%. The patient is tolerating Depakote without any respiratory problems. REVIEW OF SYSTEMS: CONSTITUTIONAL: She is more alert, verbal, still forgetful, seen in her room. The patient is asking for walker so she can walk. SKIN: No diaphoresis. HEENT: Still hard of hearing. NECK: Supple. RESPIRATORY: No dyspnea. CARDIOVASCULAR: No chest pain. GASTROINTESTINAL: Appetite is variable. EXTREMITIES: Gait is unsteady. MUSCULOSKELETAL: Feels weak. NEUROLOGICAL: Alert, forgetful. MENTAL STATUS EXAMINATION: Elderly female who looks stated age, still hard of hearing, casually dressed. The patient wants to walk. Speech is spontaneous. Affect is reactive. Mood is much calmer. Thought process forgetful. Thought content, the patient wants to ambulate, no paranoia. No suicidal ideation or homicidal ideation or psychosis. Attention and memory still limited. Insight and judgement limited. Impulse control is fair at this time. IMPRESSION History of delirium, metabolic encephalopathy secondary to exacerbation of chronic obstructive pulmonary disease as well as dementia with mood changes, gait dysfunction. PLAN/RECOMMENDATIONS: The patient seen, meds reviewed. Continue Depakote, Ambien and Xanax as ordered. The patient is for subacute rehab once her Medicaid is in place. Continue treatment plan as outlined. Continue pain meds as ordered. The patient is off narcotics due to her GI problems. The patient has not been moving her bowels for a while that she was taking narcotics. Demetrius Burdick MD [facility] # [id number]
--- NOTE | 2018-02-05 07:53 | PN ---
DATE: 02/04/2018 SUBJECTIVE: I saw the patient resting comfortably in bed. She was not that mean this morning or nasty. She just wants to go home and see her dog and cats. She is on Advair, Ambien, Apresoline, aspirin, Bactroban cream, Depakote sprinkles, Drisdol, Imdur, Lasix, MiraLax, Nephro-Karolyn, Norvasc, Novolin, Pepcid, Protonix, Ranexa, Spiriva, Toprol, Toradol, Ultram, and Zofran. PHYSICAL EXAMINATION VITAL SIGNS: She has a 97.7 temp, 75 pulse, 131/59 blood pressure, 20 respiratory rate and 99% O2 sat on 2 L nasal canula. HEENT: Head atraumatic, normocephalic. Throat is moist. NECK: Supple. HEART: Regular rate. LUNGS: Decreased breath sounds bilaterally. ABDOMEN: Soft, nontender. Positive bowel sounds. EXTREMITIES: No edema. LABORATORY DATA: She has a 7.8 white count, 9.4 hemoglobin, 279 platelets, that was on 02/01/2018. Last blood sugar was 89. Last SMA-20 was on 02/01/2018 with 49 BUN and creatinine 1.7. Hoping to see where the kidney functions are. She is refusing blood tests. We will try again for tomorrow. Hopefully, we will know where she is at, but I do not know what to do the blood. We will continue with aggressive treatment and care, get out of bed to chair every day. Encouraged her to participate, be nice and when social services aide and case management and insurance company safe discharge. so many issues from renal insufficiency,COPD, CHF, chronic pain, UTI, ileus. We will try and check her labs tomorrow. John Brown DO [facility]
[2018-02-05 07:56] LABS: HEMOGLOBIN 10.8 g/dL (11.0-16.0); MEAN CELL VOLUME 87.3 fL (81.0-99.0); MEAN CORPUSCULAR HEMOGLOBIN 29.5 pg (27.0-31.0); MEAN CORPUSCULAR HGB CONC 33.8 g/dL (33.0-37.0); RBC 3.66 Mil/uL (3.80-5.20); RED CELL DISTRIBUTION WIDTH 17.1 % (11.5-14.5); WHITE BLOOD COUNT 11.4 K/uL (4.8-10.8)
[2018-02-05] MEDS: Fluticasone-Salmeterol 250-50mcg Diskus INH SCH ×2 (08:01→19:44)
[2018-02-05] MEDS: Tiotropium 18 mcg Cap For Inhalation INH SCH (08:01)
[2018-02-05 08:28] LABS: ALB/GLOB RATIO 1.3 (1.0-2.1); ALBUMIN 3.4 g/dL (3.5-5.0); ALT/SGPT < 6 U/L (9-52); AST/SGOT 14 U/L (14-36); BLOOD UREA NITROGEN 49 mg/dL (7-17); CALCIUM 9.1 mg/dl (8.6-10.4); GFR AFRICAN-AMERICAN 30; GFR NON-AFRICAN AMERICAN 24
[2018-02-05] MEDS: Multivitamin Vitamin B Complex (Nephro-Vite) Tab PO SCH (08:47)
[2018-02-05] MEDS: (Novolin R) Insulin Human Regular 100 units/ml vial SC SCH ×3 (08:47→22:32)
[2018-02-05] MEDS: Divalproex 125 mg Sprinkle Capsule PO SCH ×3 (10:24→20:36)
[2018-02-05] MEDS: POLYETHYLENE GLYCOL 3350 17 GM/Dose PACKET PO SCH ×2 (10:25→19:21)
[2018-02-05] MEDS: Metoprolol Succinate 50 mg XL Tab PO SCH (10:26)
[2018-02-05] MEDS: Ranolazine 500 mg Extended Release Tablets PO SCH ×2 (10:28→19:21)
--- NOTE | 2018-02-05 10:36 | PN ---
DATE: SUBJECTIVE: I saw her resting comfortably in bed. She has makeup on, which is occasional for her. She was in good spirits. She was polite and kind, not mean and nasty. She is looking forward to a meeting today to talk about how she can get out of the hospital with Case Management and long term care social worker and her friend going to the bank from what I understand. PHYSICAL EXAMINATION: VITAL SIGNS: She has 98.5 temp, 75 pulse, 146/66 blood pressure, 20 respiratory rate, and 99% O2 saturation on room air. HEENT: Head is atraumatic, normocephalic. HEART: Regular rate. LUNGS: Decreased breath sounds, but clear. ABDOMEN: Soft, positive bowel sounds. Nontender. EXTREMITIES: No edema. She is on Advair, Ambien, Apresoline, aspirin, Bactroban cream, Depakote, Drisdol, Imdur, Lasix, MiraLAX, Nephro-Karolyn, Norvasc, Novolin, Pepcid, Protonix, Ranexa, Spiriva, Toprol, Ultram, and Zofran. ASSESSMENT AND PLAN: Still waiting for the blood tests to be done. I think she is still refusing. We need to see what the kidney functions are doing. She wants to go home with her dog and her cat. I do not know if it will be possible. She is being seen by Psychiatry, Renal, Gastroenterology. We will continue with aggressive treatment and care on Kathy Painter with chronic obstructive pulmonary disease, congestive heart failure, constipation. John Brown DO
--- NOTE | 2018-02-05 18:39 | PN ---
DATE: 02/05/18 SUBJECTIVE: The patient is seen. The patient is more mellow today, pleasant, no real profanity noted. The patient is still with stomach pain but looking forward to go for subacute rehab. She states she wants to go to [facility] for subacute rehab. Mood seems to be doing better with addition of Depakote 250 mg two times a day. PHYSICAL EXAMINATION VITAL SIGNS: Temperature 98.4, pulse 81, blood pressure 139/61, respirations 20, oxygen saturation 99%. REVIEW OF SYSTEMS: CONSTITUTIONAL: The patient is alert, verbal, oriented x2, but forgetful. She seems to be eating better. SKIN: No diaphoresis. HEENT: Hard of hearing. No headache. NECK: Supple. RESPIRATORY: No dyspnea. CARDIOVASCULAR: No chest pain. GASTROINTESTINAL: Complaining of abdominal pain. The patient is able to tolerate soup. She did not eat her roast beef sandwich. EXTREMITIES: Gait is unsteady. MUSCULOSKELETAL: Feels weak. NEUROLOGICAL: Alert with periods of forgetfulness. MENTAL STATUS EXAMINATION: Elderly female who looks stated age, oriented x2. Mood is much calmer. Affect is reactive. Speech is spontaneous. Thought process forgetful. Thought content, no pyshosis. No suicidal or homicidal ideation. Attention and memory seem to be limited. Insight and judgement improving. Impulse control is fair at this time. IMPRESSION History of delirium, metabolic encephalopathy secondary to exacerbation of chronic obstructive pulmonary disease, as well as dementia with mood changes. PLAN/RECOMMENDATIONS: The patient seen, meds reviewed. The patient is for subacute rehab once her Medicaid is in place. Continue present psych meds as ordered. Continue treatment plan as outlined. We will monitor also her liver function tests and CBC and Depakote level accordingly as needed. Demetrius Burdick MD KENNETH
[2018-02-06] MEDS: Morphine 4 MG/ML VIAL IVP SCH ×6 (06:10→22:32)
[2018-02-06] MEDS: Fluticasone-Salmeterol 250-50mcg Diskus INH SCH ×2 (08:07→21:32)
[2018-02-06] MEDS: Tiotropium 18 mcg Cap For Inhalation INH SCH (08:07)
[2018-02-06] MEDS: (Novolin R) Insulin Human Regular 100 units/ml vial SC SCH ×4 (08:57→22:32)
[2018-02-06] MEDS: Multivitamin Vitamin B Complex (Nephro-Vite) Tab PO SCH (09:02)
[2018-02-06] MEDS: Metoprolol Succinate 50 mg XL Tab PO SCH (10:33)
[2018-02-06] MEDS: POLYETHYLENE GLYCOL 3350 17 GM/Dose PACKET PO SCH ×2 (10:38→18:47)
[2018-02-06] MEDS: Divalproex 125 mg Sprinkle Capsule PO SCH ×2 (10:38→18:43)
[2018-02-06] MEDS: Ergocalciferol 50,000 Intl Units Cap PO SCH (10:38)
[2018-02-06] MEDS: Ranolazine 500 mg Extended Release Tablets PO SCH ×2 (10:40→18:47)
[2018-02-06] MEDS: Benzocaine 10% Oral Anesthetic (12 ml) MM PRN (18:46)
[2018-02-07] MEDS: Morphine 4 MG/ML VIAL IVP SCH ×9 (01:00→21:25)
[2018-02-07 06:48] LABS: HEMOGLOBIN 10.9 g/dL (11.0-16.0); MEAN CELL VOLUME 87.2 fL (81.0-99.0); MEAN CORPUSCULAR HEMOGLOBIN 29.7 pg (27.0-31.0); MEAN CORPUSCULAR HGB CONC 34.1 g/dL (33.0-37.0); MEAN PLATELET VOLUME 9.3 fL (7.2-11.7); RBC 3.67 Mil/uL (3.80-5.20); RED CELL DISTRIBUTION WIDTH 16.9 % (11.5-14.5); WHITE BLOOD COUNT 12.1 K/uL (4.8-10.8)
[2018-02-07 07:48] LABS: ALB/GLOB RATIO 1.2 (1.0-2.1); ALBUMIN 3.1 g/dL (3.5-5.0); CALCIUM 9.1 mg/dl (8.6-10.4)
[2018-02-07] MEDS: (Novolin R) Insulin Human Regular 100 units/ml vial SC SCH ×4 (08:18→21:26)
[2018-02-07] MEDS: Multivitamin Vitamin B Complex (Nephro-Vite) Tab PO SCH (08:46)
[2018-02-07] MEDS: Fluticasone-Salmeterol 250-50mcg Diskus INH SCH ×2 (08:49→21:00)
[2018-02-07] MEDS: Tiotropium 18 mcg Cap For Inhalation INH SCH (08:50)
[2018-02-07] MEDS: Metoprolol Succinate 50 mg XL Tab PO SCH (09:45)
[2018-02-07] MEDS: Ranolazine 500 mg Extended Release Tablets PO SCH ×2 (09:45→18:05)
[2018-02-07] MEDS: Divalproex 125 mg Sprinkle Capsule PO SCH ×2 (09:46→18:05)
[2018-02-07] MEDS ORDERED: Potassium Chloride 20 mEq ER Tab PO ONE (09:56)
[2018-02-07] MEDS: POLYETHYLENE GLYCOL 3350 17 GM/Dose PACKET PO SCH ×2 (10:20→18:14)
--- NOTE | 2018-02-07 15:50 | CP.PCM.PN ---
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 Hypertension control with meds as ordered. 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 Monitor Input/Output, daily weights and renal function with basic metabolic panel supplement electrolytes as needed resume iron supplement once GI symptoms better. can resume her MVI and weekly Vit D continue with lasix 20 mg bid Dose meds/antibiotics for reduced GFR. Avoid fleets enema/magnesium based laxatives. Avoid nephrotoxins/NSAIDs Glycemic control Further work up/management as per primary team. Thanks for allowing me to participate in care of your patient. Please call if any Qs. Dr Shiraz Husain Office: [phone] reason for consult: ETHEL HPI: Pt is a 72 F with hx of diabetes Mellitus (years), hypertension (many years ), CAD s/p stent, PVD s/p iliac stent, Rt Renal artery stenosis 60%, Ca breast s /p chemo presented with complaints of chest pain and SOB, managed for CHF and NSTEMI in past, reported heavy use of NSAIDs as naproxen, up to 10 tab/day for months probably has baseline CKD with Cr 1.0-1.2 with intermittent AKIs 01/29/18: re-consulted as pt labs showed rise in BUN and Cr 02/07/18: re-consulted as pt labs showed elevated BUN and Cr ROS: As soon as I entered in to her room, pt started yelling and screaming, verbally abusive and using foul language. un-coperative, agitated. Physical Examination: Pt refused to be seen Labs/imaging reviewed. Past medical history, past surgical history, family history, social history, allergy reviewed and noted as below Family hx: no hx of CKD. Rest non-contributory sono jun 2017: simple cyst. previous CT showed stable complex cyst left kidney echo; moderate to severe TR SPEP/AMY neg, serum FLC assay WNL. Vit D <12.8 PTH 168 TSAT 4% Ferritin 19 Hep B and C neg Objective - Vital Signs/Intake and Output Vital Signs (last 24 hours): Temp Pulse Resp BP Pulse Ox 98.4 F 85 18 146/69 100 02/07/18 07:50 02/07/18 07:50 02/07/18 07:50 02/07/18 09:46 02/07/18 07:50 - Medications Medications: Current Medications Amlodipine Besylate (Norvasc) 10 mg PO QPM [facility] Last Admin: 02/06/18 18:45 Dose: 10 mg Aspirin (Aspirin Chewable) 81 mg PO DAILY [facility] Last Admin: 02/07/18 09:55 Dose: 81 mg Benzocaine (Anbesol) 0 ml MM QID PRN PRN Reason: Pain, Mild (1-3) Last Admin: 02/06/18 18:46 Dose: 12 ml Divalproex Sodium (Depakote Sprinkles) 250 mg PO BID [facility] Last Admin: 02/07/18 09:46 Dose: 250 mg Ergocalciferol (Drisdol 50,000 Intl Units Cap) 1 cap PO Q7D [facility] Stop: 02/20/18 10:01 Last Admin: 02/06/18 10:38 Dose: Not Given Furosemide (Lasix) 20 mg PO BID [facility] Last Admin: 02/07/18 09:46 Dose: 20 mg Hydralazine HCl (Apresoline) 100 mg PO TID [facility] Last Admin: 02/07/18 14:58 Dose: Not Given Insulin Human Regular (Novolin R) 0 unit SC ACHS [facility] PRN Reason: Protocol Last Admin: 02/07/18 12:23 Dose: Not Given Metoprolol Succinate (Toprol Xl) 50 mg PO DAILY [facility] Last Admin: 02/07/18 09:45 Dose: 50 mg Morphine Sulfate (Morphine) 1 mg IVP Q3 [facility] Last Admin: 02/07/18 14:00 Dose: Not Given Mupirocin (Bactroban Ointment) 0 gm TOP BID [facility] Last Admin: 02/07/18 09:56 Dose: Not Given Ondansetron HCl (Zofran Inj) 8 mg IVP Q8H PRN PRN Reason: Nausea/Vomiting Last Admin: 02/07/18 12:18 Dose: 8 mg Pantoprazole Sodium (Protonix Inj) 40 mg IVP Q12H [facility] Last Admin: 02/07/18 12:18 Dose: 40 mg Polyethylene Glycol (Miralax) 17 gm PO BID [facility] Last Admin: 02/07/18 10:20 Dose: Not Given Ranolazine (Ranexa) 500 mg PO BID [facility] Last Admin: 02/07/18 09:45 Dose: 500 mg Fluticasone/Salmeterol (Advair Diskus 250/50) 1 puff INH RQ12 [facility] Last Admin: 02/07/18 08:49 Dose: Not Given Tiotropium [place] (Spiriva) 18 mcg INH RQ24 [facility] Last Admin: 02/07/18 08:50 Dose: Not Given Vitamin B Complex/Vit C/Folic Acid (Nephro-Karolyn) 1 tab PO 0800 [facility] Last Admin: 02/07/18 08:46 Dose: 1 tab Zolpidem Tartrate (Ambien) 5 mg PO HS [facility] Last Admin: 02/06/18 21:05 Dose: 5 mg - Labs Labs: 02/07/18 06:36 02/07/18 06:36 PT 13.6 SECONDS (9.7-12.2) H 01/15/18 07:10 INR 1.2 01/15/18 07:10 APTT 34 SECONDS (21-34) 12/09/17 00:22
--- NOTE | 2018-02-07 18:17 | PN ---
DATE: 02/07/2018 SUBJECTIVE: The patient has been having irritable mood today, screaming, "leave me alone, I want to sleep." The patient's mood is still fluctuating. Other than that, she is manageable. VITAL SIGNS: Temperature is 98.4, pulse 85, blood pressure 146/69, respirations 18, oxygen saturations 100%. REVIEW OF SYSTEMS: GENERAL: The patient is sleepy, but irritable. Very uncomfortable today. No adequate respiratory distress. She states she wants to be left alone. SKIN: No diaphoresis. No pruritus. HEENT: Still hard of hearing. No headache. NECK: Supple. RESPIRATORY: No dyspnea. CARDIOVASCULAR: No chest pain. GASTROINTESTINAL: Appetite is variable. EXTREMITIES: Gait is unsteady. MUSCULOSKELETAL: Feels weak. NEUROLOGIC: Alert with periods of forgetfulness. GENITOURINARY: No urinary problems or dysuria. MENTAL STATUS EXAMINATION: Elderly female, who looks stated age, alert, oriented x3, but forgetful. Mood is very irritable. Affect is reactive. Speech is spontaneous. Thought process, forgetful. Thought content, the patient wants to be left alone. Still has abdominal pain. No paranoia. No suicidal or homicidal ideation. Attention and memory seem to be limited. Insight and judgement limited. Impulse control is fair at this time. IMPRESSION: History of delirium, metabolic encephalopathy secondary to exacerbation of chronic obstructive pulmonary disease as well as dementia, debility. PLAN/RECOMMENDATIONS: The patient seen, meds reviewed. The patient is now back on morphine 1 mg IV every 3 hours for her pain. The patient also is on Zofran. Continue treatment plan as outlined. The patient is for subacute rehab once her Medicaid is in place. Demetrius Burdick MD
[2018-02-08] MEDS: Morphine 4 MG/ML VIAL IVP SCH ×8 (01:30→21:53)
[2018-02-08] MEDS: Tiotropium 18 mcg Cap For Inhalation INH SCH (07:50)
[2018-02-08] MEDS: Fluticasone-Salmeterol 250-50mcg Diskus INH SCH (07:50)
[2018-02-08] MEDS: Multivitamin Vitamin B Complex (Nephro-Vite) Tab PO SCH (08:13)
[2018-02-08] MEDS: (Novolin R) Insulin Human Regular 100 units/ml vial SC SCH ×4 (08:20→21:54)
[2018-02-08] MEDS: Ranolazine 500 mg Extended Release Tablets PO SCH ×2 (09:50→19:23)
[2018-02-08] MEDS: Metoprolol Succinate 50 mg XL Tab PO SCH (09:50)
[2018-02-08] MEDS: POLYETHYLENE GLYCOL 3350 17 GM/Dose PACKET PO SCH ×2 (09:51→19:22)
[2018-02-08] MEDS: Divalproex 125 mg Sprinkle Capsule PO SCH ×2 (09:57→19:22)
[2018-02-08] MEDS: Benzocaine 10% Oral Anesthetic (12 ml) MM PRN (15:01)
--- NOTE | 2018-02-08 17:52 | CP.PCM.PN ---
<Ryanne Johnston - Last Filed: 02/08/18 17:50> Subjective - Date & Time of Evaluation Date of Evaluation: 02/08/18 Time of Evaluation: 07:00 - Subjective Subjective: PGY1 - Medicine Note Patient seen and examined at bedside this morning. Patient refusing blood work. Patient says she doesn't want to answer the same questions and asks me to go away. Patient then asks if I can help her with the clock on her TV and is very happy when I help her. ROS unobtainable because patient refuses to answer my questions. Objective - Vital Signs/Intake and Output Vital Signs (last 24 hours): Temp Pulse Resp BP Pulse Ox 98.2 F 72 20 178/71 H 100 02/08/18 15:14 02/08/18 15:14 02/08/18 15:14 02/08/18 15:14 02/08/18 15:14 - Medications Medications: Current Medications Amlodipine Besylate (Norvasc) 10 mg PO QPM [facility] Last Admin: 02/07/18 18:05 Dose: 10 mg Aspirin (Aspirin Chewable) 81 mg PO DAILY [facility] Last Admin: 02/08/18 09:50 Dose: 81 mg Benzocaine (Anbesol) 0 ml MM QID PRN PRN Reason: Pain, Mild (1-3) Last Admin: 02/08/18 15:01 Dose: 12 ml Divalproex Sodium (Depakote Sprinkles) 250 mg PO BID [facility] Last Admin: 02/08/18 09:57 Dose: Not Given Ergocalciferol (Drisdol 50,000 Intl Units Cap) 1 cap PO Q7D [facility] Stop: 02/20/18 10:01 Last Admin: 02/06/18 10:38 Dose: Not Given Furosemide (Lasix) 20 mg PO BID [facility] Last Admin: 02/08/18 09:50 Dose: 20 mg Hydralazine HCl (Apresoline) 100 mg PO TID [facility] Last Admin: 02/08/18 15:00 Dose: 100 mg Insulin Human Regular (Novolin R) 0 unit SC ACHS [facility] PRN Reason: Protocol Last Admin: 02/08/18 12:42 Dose: Not Given Metoprolol Succinate (Toprol Xl) 50 mg PO DAILY [facility] Last Admin: 02/08/18 09:50 Dose: 50 mg Morphine Sulfate (Morphine) 1 mg IVP Q3 [facility] Last Admin: 02/08/18 13:54 Dose: Not Given Mupirocin (Bactroban Ointment) 0 gm TOP BID [facility] Last Admin: 02/08/18 09:57 Dose: Not Given Ondansetron HCl (Zofran Inj) 8 mg IVP Q8H PRN PRN Reason: Nausea/Vomiting Last Admin: 02/08/18 09:51 Dose: 8 mg Pantoprazole Sodium (Protonix Inj) 40 mg IVP Q12H [facility] Last Admin: 02/08/18 12:30 Dose: 40 mg Polyethylene Glycol (Miralax) 17 gm PO BID [facility] Last Admin: 02/08/18 09:51 Dose: 17 gm Ranolazine (Ranexa) 500 mg PO BID [facility] Last Admin: 02/08/18 09:50 Dose: 500 mg Fluticasone/Salmeterol (Advair Diskus 250/50) 1 puff INH RQ12 [facility] Last Admin: 02/08/18 07:50 Dose: Not Given Tiotropium [place] (Spiriva) 18 mcg INH RQ24 [facility] Last Admin: 02/08/18 07:50 Dose: Not Given Vitamin B Complex/Vit C/Folic Acid (Nephro-Karolyn) 1 tab PO 0800 [facility] Last Admin: 02/08/18 08:13 Dose: 1 tab Zolpidem Tartrate (Ambien) 5 mg PO HS [facility] Last Admin: 02/07/18 21:27 Dose: Not Given - Labs Labs: 02/07/18 06:36 02/07/18 06:36 PT 13.6 SECONDS (9.7-12.2) H 01/15/18 07:10 INR 1.2 01/15/18 07:10 APTT 34 SECONDS (21-34) 12/09/17 00:22 - Constitutional Appears: Non-toxic, No Acute Distress, Cachectic - Head Exam Head Exam: ATRAUMATIC, NORMAL INSPECTION, NORMOCEPHALIC - Eye Exam Eye Exam: EOMI, Normal appearance - ENT Exam ENT Exam: Mucous Membranes Moist - Respiratory Exam Respiratory Exam: Clear to Ausculation Bilateral, NORMAL BREATHING PATTERN - Cardiovascular Exam Cardiovascular Exam: REGULAR RHYTHM, RRR, +S1, +S2 - GI/Abdominal Exam GI & Abdominal Exam: Soft. 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 Monitor Input/Output, daily weights and renal function with basic metabolic panel supplement electrolytes as needed SBO resolved CT abd reviewed and revealed dilated bowel loops and stool retention throughout colon Dr. Ignacio consulted, help appreciated Dr. Canela consulted, help appreciated-signed off Place NG tube if pt starts to vomit avoid narcotics UTI resolved patient was treated with iv antibiotics as per Dr. Torres Schizophrenia Depakote 250mg BID Ambien 5mg po daily Vitamin D Deficiency Vit D 50,000 u q7d Constipation miralax bid COPD Spiriva Advair diskus Prophylaxis Protonix 40mg ivp daily <Nahum Fenton - Last Filed: 02/13/18 07:48> Objective - Vital Signs/Intake and Output Vital Signs (last 24 hours): Temp Pulse Resp BP Pulse Ox 98.1 F 75 20 127/67 97 02/12/18 23:55 02/12/18 23:55 02/12/18 23:55 02/12/18 23:55 02/12/18 23:55 - Medications Medications: Current Medications Amlodipine Besylate (Norvasc) 10 mg PO QPM [facility] Last Admin: 02/12/18 17:38 Dose: 10 mg Aspirin (Aspirin Chewable) 81 mg PO DAILY [facility] Last Admin: 02/12/18 09:27 Dose: 81 mg Benzocaine (Anbesol) 0 ml MM QID PRN PRN Reason: Pain, Mild (1-3) Last Admin: 02/11/18 21:31 Dose: 12 ml Divalproex Sodium (Depakote Sprinkles) 250 mg PO Q8H [facility] Last Admin: 02/12/18 23:57 Dose: 250 mg Ergocalciferol (Drisdol 50,000 Intl Units Cap) 1 cap PO Q7D [facility] Stop: 02/20/18 10:01 Last Admin: 02/06/18 10:38 Dose: Not Given Furosemide (Lasix) 20 mg PO BID [facility] Last Admin: 02/12/18 17:38 Dose: 20 mg Hydralazine HCl (Apresoline) 100 mg PO TID [facility] Last Admin: 02/12/18 18:25 Dose: 100 mg Insulin Human Regular (Novolin R) 0 unit SC ACHS [facility] PRN Reason: Protocol Last Admin: 02/12/18 21:28 Dose: Not Given Metoprolol Succinate (Toprol Xl) 50 mg PO DAILY [facility] Last Admin: 02/12/18 09:33 Dose: 50 mg Mupirocin (Bactroban Ointment) 0 gm TOP BID [facility] Last Admin: 02/12/18 18:00 Dose: Not Given Ondansetron HCl (Zofran Odt) 4 mg PO Q8H PRN PRN Reason: Nausea/Vomiting Pantoprazole Sodium (Protonix Ec Tab) 40 mg PO DAILY [facility] Last Admin: 02/12/18 09:27 Dose: 40 mg Polyethylene Glycol (Miralax) 17 gm PO BID [facility] Last Admin: 02/12/18 17:39 Dose: 17 gm Ranolazine (Ranexa) 500 mg PO BID [facility] Last Admin: 02/12/18 17:38 Dose: 500 mg Fluticasone/Salmeterol (Advair Diskus 250/50) 1 puff INH RQ12 [facility] Last Admin: 02/12/18 20:08 Dose: Not Given Tiotropium [place] (Spiriva) 18 mcg INH RQ24 [facility] Last Admin: 02/12/18 08:00 Dose: Not Given Tramadol HCl (Ultram) 50 mg PO TID [facility] Vitamin B Complex/Vit C/Folic Acid (Nephro-Karolyn) 1 tab PO 0800 [facility] Last Admin: 02/12/18 08:45 Dose: 1 tab Zolpidem Tartrate (Ambien) 5 mg PO HS [facility] Last Admin: 02/13/18 00:01 Dose: 5 mg - Labs Labs: 02/12/18 11:08 02/12/18 11:08 PT 13.6 SECONDS (9.7-12.2) H 01/15/18 07:10 INR 1.2 01/15/18 07:10 APTT 34 SECONDS (21-34) 12/09/17 00:22 Attending/Attestation - Attestation I have personally seen and examined this patient.: No I have fully participated in the care of the patient.: Yes I have reviewed all pertinent clinical information, including history, physical exam and plan: Yes Notes (Text): D/w RN and the resident patient refuses to talk. " Go away. Don't talk to me."
[2018-02-09] MEDS: Morphine 4 MG/ML VIAL IVP SCH ×8 (01:00→21:45)
[2018-02-09] MEDS: (Novolin R) Insulin Human Regular 100 units/ml vial SC SCH ×5 (07:59→22:00)
[2018-02-09] MEDS: Multivitamin Vitamin B Complex (Nephro-Vite) Tab PO SCH (08:19)
--- NOTE | 2018-02-09 08:46 | PN ---
DATE: 02/07/2018 SUBJECTIVE: I saw her resting comfortably in bed. very polite, very calm, in good spirits today, which is good. She is on Advair, Ambien, Apresoline, aspirin, Bactroban ointment, Depakote, Drisdol, Lasix, MiraLAX, morphine, Nephro-Karolyn, Norvasc, Novolin, Protonix, Ranexa, Spiriva, Toprol, and Zofran. PHYSICAL EXAMINATION: VITAL SIGNS: Temperature 98.1, pulse 70, blood pressure 131/50, respiratory rate 20, O2 saturation 100% on 2 L nasal canula. GENERAL: She is calm, she wants to go home. HEENT: Head is atraumatic, normocephalic. HEART: Regular rate. LUNGS: Decreased breath sounds, but clear. ABDOMEN: Soft. EXTREMITIES: No edema. LABORATORY DATA: White blood cells ASSESSMENT AND PLAN: Psychiatry, GI, Renal. back pain still waiting for placement for her. BUN and creatinine are still elevated. John Bronw DO MTDJeaneth
--- NOTE | 2018-02-09 08:47 | PN ---
DATE: 02/06/2018 SUBJECTIVE: She told me that they got a bank statement from her, which is good, and we are waiting for overall for patient's safety on discharge. She is resting in bed, occasional abdominal pain. She is eating some On Advair, Ambien, Apresoline, aspirin, Bactroban cream, Depakote, Drisdol, Imdur, Lasix, MiraLAX, Nephro-Karolyn, Norvasc, Novolin, Pepcid, Protonix, Ranexa, Spiriva, Toprol, Toradol, Ultram, Zofran. PHYSICAL EXAMINATION: VITAL SIGNS: Temperature 97.8, 87 pulse, 132/54 blood pressure, 20 respiratory rate, and 99% O2 saturation on room air. HEENT: Head is atraumatic and normocephalic. HEART: Regular rate. LUNGS: Decreased breath sounds. ABDOMEN: Soft, nontender. Positive bowel sounds. EXTREMITIES: No edema. LABORATORY DATA: 11.4 white count which was high, 9.8 hemoglobin, 31.9 hematocrit, 320 platelets. Sodium 145, potassium 4.3, BUN 49, creatinine at 2, it went up, await talking to a renal doctor. GFR is 24. Sugar is 94, calcium 9.9, total bili is 0.4, and alk phos is 50. ASSESSMENT AND PLAN: I am going to stop her Toradol and Ultram and change it to morphine bothering her kidney function. I am going to put her on low-dose intravenous fluids at 30 mL an hour. We will check her kidney function tomorrow. John Brown DO MTDD
[2018-02-09] MEDS: Ranolazine 500 mg Extended Release Tablets PO SCH ×3 (09:59→21:21)
[2018-02-09] MEDS: Metoprolol Succinate 50 mg XL Tab PO SCH (09:59)
[2018-02-09] MEDS: Divalproex 125 mg Sprinkle Capsule PO SCH ×3 (10:00→21:21)
[2018-02-09] MEDS: Benzocaine 10% Oral Anesthetic (12 ml) MM PRN (10:00)
[2018-02-09] MEDS: POLYETHYLENE GLYCOL 3350 17 GM/Dose PACKET PO SCH ×2 (10:07→18:51)
[2018-02-09] MEDS ORDERED: Tramadol 25 mg PO ONE ×2 (11:15→13:04)
--- NOTE | 2018-02-09 11:52 | CP.PCM.PN ---
<Ryanne Johnston - Last Filed: 02/09/18 11:50> Subjective - Date & Time of Evaluation Date of Evaluation: 02/09/18 Time of Evaluation: 07:00 - Subjective Subjective: PGY1- Medicine Note Patient seen and examined at bedside. Patient refuses to talk or be examined and yells at me to leave. Later, I try to see her again, but she once again refuses and yells to be left alone. As per nursing patient refusing to get blood work done. Objective - Vital Signs/Intake and Output Vital Signs (last 24 hours): Temp Pulse Resp BP Pulse Ox 98.6 F 72 20 187/66 H 100 02/09/18 07:00 02/09/18 07:00 02/09/18 07:00 02/09/18 09:59 02/09/18 07:00 Intake and Output: 02/09/18 02/09/18 06:59 18:59 Intake Total 240 Output Total 300 Balance -60 - Medications Medications: Current Medications Amlodipine Besylate (Norvasc) 10 mg PO QPM [facility] Last Admin: 02/08/18 19:23 Dose: Not Given Aspirin (Aspirin Chewable) 81 mg PO DAILY [facility] Last Admin: 02/09/18 10:05 Dose: 81 mg Benzocaine (Anbesol) 0 ml MM QID PRN PRN Reason: Pain, Mild (1-3) Last Admin: 02/09/18 10:00 Dose: 12 ml Divalproex Sodium (Depakote Sprinkles) 250 mg PO BID [facility] Last Admin: 02/09/18 10:00 Dose: 250 mg Ergocalciferol (Drisdol 50,000 Intl Units Cap) 1 cap PO Q7D [facility] Stop: 02/20/18 10:01 Last Admin: 02/06/18 10:38 Dose: Not Given Furosemide (Lasix) 20 mg PO BID [facility] Last Admin: 02/09/18 09:59 Dose: 20 mg Hydralazine HCl (Apresoline) 100 mg PO TID [facility] Last Admin: 02/09/18 10:00 Dose: 100 mg Insulin Human Regular (Novolin R) 0 unit SC ACHS [facility] PRN Reason: Protocol Last Admin: 02/09/18 07:59 Dose: Not Given Metoprolol Succinate (Toprol Xl) 50 mg PO DAILY [facility] Last Admin: 02/09/18 09:59 Dose: 50 mg Morphine Sulfate (Morphine) 1 mg IVP Q3 [facility] Last Admin: 02/09/18 07:00 Dose: Not Given Mupirocin (Bactroban Ointment) 0 gm TOP BID [facility] Last Admin: 02/09/18 10:06 Dose: Not Given Ondansetron HCl (Zofran Inj) 8 mg IVP Q8H PRN PRN Reason: Nausea/Vomiting Last Admin: 02/08/18 09:51 Dose: 8 mg Pantoprazole Sodium (Protonix Inj) 40 mg IVP Q12H [facility] Last Admin: 02/09/18 09:55 Dose: 40 mg Polyethylene Glycol (Miralax) 17 gm PO BID [facility] Last Admin: 02/09/18 10:07 Dose: 17 gm Ranolazine (Ranexa) 500 mg PO BID [facility] Last Admin: 02/09/18 09:59 Dose: 500 mg Fluticasone/Salmeterol (Advair Diskus 250/50) 1 puff INH RQ12 [facility] Last Admin: 02/08/18 07:50 Dose: Not Given Tiotropium [place] (Spiriva) 18 mcg INH RQ24 [facility] Last Admin: 02/08/18 07:50 Dose: Not Given Vitamin B Complex/Vit C/Folic Acid (Nephro-Karolyn) 1 tab PO 0800 [facility] Last Admin: 02/09/18 08:19 Dose: 1 tab Zolpidem Tartrate (Ambien) 5 mg PO HS [facility] Last Admin: 02/09/18 00:10 Dose: 5 mg - Labs Labs: 02/07/18 06:36 02/07/18 06:36 PT 13.6 SECONDS (9.7-12.2) H 01/15/18 07:10 INR 1.2 01/15/18 07:10 APTT 34 SECONDS (21-34) 12/09/17 00:22 - Constitutional Appears: No Acute Distress, Older Than Stated Age, Agitated, Cachectic Assessment and Plan - Assessment and Plan (Free Text) Assessment: 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 Monitor Input/Output, daily weights and renal function with basic metabolic panel supplement electrolytes as needed SBO resolved CT abd reviewed and revealed dilated bowel loops and stool retention throughout colon Dr. Ignacio consulted, help appreciated Dr. Canela consulted, help appreciated-signed off Place NG tube if pt starts to vomit avoid narcotics UTI resolved patient was treated with iv antibiotics as per Dr. Torres Schizophrenia Depakote 250mg BID Ambien 5mg po daily Vitamin D Deficiency Vit D 50,000 u q7d Constipation miralax bid COPD Spiriva Advair diskus Prophylaxis Protonix 40mg ivp daily <Nahum Fenton - Last Filed: 02/13/18 07:50> Objective - Vital Signs/Intake and Output Vital Signs (last 24 hours): Temp Pulse Resp BP Pulse Ox 98.1 F 75 20 127/67 97 02/12/18 23:55 02/12/18 23:55 02/12/18 23:55 02/12/18 23:55 02/12/18 23:55 - Medications Medications: Current Medications Amlodipine Besylate (Norvasc) 10 mg PO QPM [facility] Last Admin: 02/12/18 17:38 Dose: 10 mg Aspirin (Aspirin Chewable) 81 mg PO DAILY [facility] Last Admin: 02/12/18 09:27 Dose: 81 mg Benzocaine (Anbesol) 0 ml MM QID PRN PRN Reason: Pain, Mild (1-3) Last Admin: 02/11/18 21:31 Dose: 12 ml Divalproex Sodium (Depakote Sprinkles) 250 mg PO Q8H [facility] Last Admin: 02/12/18 23:57 Dose: 250 mg Ergocalciferol (Drisdol 50,000 Intl Units Cap) 1 cap PO Q7D [facility] Stop: 02/20/18 10:01 Last Admin: 02/06/18 10:38 Dose: Not Given Furosemide (Lasix) 20 mg PO BID [facility] Last Admin: 02/12/18 17:38 Dose: 20 mg Hydralazine HCl (Apresoline) 100 mg PO TID [facility] Last Admin: 02/12/18 18:25 Dose: 100 mg Insulin Human Regular (Novolin R) 0 unit SC ACHS [facility] PRN Reason: Protocol Last Admin: 02/12/18 21:28 Dose: Not Given Metoprolol Succinate (Toprol Xl) 50 mg PO DAILY [facility] Last Admin: 02/12/18 09:33 Dose: 50 mg Mupirocin (Bactroban Ointment) 0 gm TOP BID [facility] Last Admin: 02/12/18 18:00 Dose: Not Given Ondansetron HCl (Zofran Odt) 4 mg PO Q8H PRN PRN Reason: Nausea/Vomiting Pantoprazole Sodium (Protonix Ec Tab) 40 mg PO DAILY [facility] Last Admin: 02/12/18 09:27 Dose: 40 mg Polyethylene Glycol (Miralax) 17 gm PO BID [facility] Last Admin: 02/12/18 17:39 Dose: 17 gm Ranolazine (Ranexa) 500 mg PO BID [facility] Last Admin: 02/12/18 17:38 Dose: 500 mg Fluticasone/Salmeterol (Advair Diskus 250/50) 1 puff INH RQ12 [facility] Last Admin: 02/12/18 20:08 Dose: Not Given Tiotropium [place] (Spiriva) 18 mcg INH RQ24 [facility] Last Admin: 02/12/18 08:00 Dose: Not Given Tramadol HCl (Ultram) 50 mg PO TID [facility] Vitamin B Complex/Vit C/Folic Acid (Nephro-Karolyn) 1 tab PO 0800 [facility] Last Admin: 02/12/18 08:45 Dose: 1 tab Zolpidem Tartrate (Ambien) 5 mg PO HS [facility] Last Admin: 02/13/18 00:01 Dose: 5 mg - Labs Labs: 02/12/18 11:08 02/12/18 11:08 PT 13.6 SECONDS (9.7-12.2) H 01/15/18 07:10 INR 1.2 01/15/18 07:10 APTT 34 SECONDS (21-34) 12/09/17 00:22 Attending/Attestation - Attestation I have personally seen and examined this patient.: No I have fully participated in the care of the patient.: Yes I have reviewed all pertinent clinical information, including history, physical exam and plan: Yes Notes (Text): Yells at me " Go away. Leave me alone"
--- NOTE | 2018-02-09 18:43 | PN ---
DATE: 02/09/2018 SUBJECTIVE: The patient is seen. The patient is in better mood today. She states she wants to go home, but she has been very cooperative. The patient is refusing to take morphine, which she was prescribed 1 mg IV every 3 hours for pain because she reported that it was giving her some stomach problems. The patient was constipated. Other than that, she is manageable. VITAL SIGNS: Temperature is 98.6, pulse 72, blood pressure 187/66, respirations 20, oxygen saturations 100%. REVIEW OF SYSTEMS: CONSTITUTIONAL: The patient is alert, verbal, still forgetful. Seen in the room. Better mood today. The patient wants to go home. SKIN: No pruritus. HEENT: Still hard of hearing. No headache. NECK: Supple. RESPIRATORY: Continuous oxygen treatment CARDIOVASCULAR: No chest pain. GASTROINTESTINAL: She is eating better. No complaint of abdominal pain. The patient is refusing to take morphine for fear of having constipation again. EXTREMITIES: Gait is unsteady although she has been walking with staff during physical therapy . MUSCULOSKELETAL: Feels weak. NEURO: Alert and forgetful. MENTAL STATUS EXAMINATION: Elderly female who looks stated age, oriented x2, but forgetful. Speech is spontaneous. Mood is much mellow today. Affect is reactive. Thought process, forgetful. Thought content, the patient wants to go home to see her pets. No paranoia. No suicidal or homicidal ideation. Attention and memory seem to be limited. Insight and judgement improving. Impulse control is fair at this time. IMPRESSION: History of delirium with metabolic encephalopathy secondary to exacerbation of chronic obstructive pulmonary disease as well as dementia with mood changes. PLAN AND RECOMMENDATIONS : The patient is seen, meds reviewed. Agree with the patient to use her pain meds as p.r.n. instead of scheduled. Continue present psych meds as ordered. The patient for subacute rehab once Medicaid is in place. Demetrius Burdick MD
[2018-02-09] MEDS: Fluticasone-Salmeterol 250-50mcg Diskus INH SCH (20:19)
[2018-02-10] MEDS: Morphine 4 MG/ML VIAL IVP SCH ×9 (01:04→21:00)
--- NOTE | 2018-02-10 03:29 | CP.PCM.PN ---
Subjective - Date & Time of Evaluation Date of Evaluation: 02/10/18 Time of Evaluation: 03:27 - Subjective Subjective: Progress note for Dr. Brown Patient seen and examined at bedside. per previous notes and RNs, patient refuses labs and yells at staff. Patient had no complaints today and slept well overnight. Objective - Vital Signs/Intake and Output Vital Signs (last 24 hours): Temp Pulse Resp BP Pulse Ox 98.1 F 67 20 168/72 H 100 02/09/18 16:00 02/09/18 16:00 02/09/18 16:00 02/09/18 21:19 02/09/18 16:00 Intake and Output: 02/09/18 02/10/18 18:59 06:59 Intake Total 720 Balance 720 - Medications Medications: Current Medications Amlodipine Besylate (Norvasc) 10 mg PO QPM [facility] Last Admin: 02/09/18 21:20 Dose: 10 mg Aspirin (Aspirin Chewable) 81 mg PO DAILY [facility] Last Admin: 02/09/18 10:05 Dose: 81 mg Benzocaine (Anbesol) 0 ml MM QID PRN PRN Reason: Pain, Mild (1-3) Last Admin: 02/09/18 10:00 Dose: 12 ml Divalproex Sodium (Depakote Sprinkles) 250 mg PO BID [facility] Last Admin: 02/09/18 21:21 Dose: 250 mg Ergocalciferol (Drisdol 50,000 Intl Units Cap) 1 cap PO Q7D [facility] Stop: 02/20/18 10:01 Last Admin: 02/06/18 10:38 Dose: Not Given Furosemide (Lasix) 20 mg PO BID [facility] Last Admin: 02/09/18 21:19 Dose: 20 mg Hydralazine HCl (Apresoline) 100 mg PO TID [facility] Last Admin: 02/09/18 21:16 Dose: 100 mg Insulin Human Regular (Novolin R) 0 unit SC ACHS [facility] PRN Reason: Protocol Last Admin: 02/09/18 22:00 Dose: Not Given Metoprolol Succinate (Toprol Xl) 50 mg PO DAILY [facility] Last Admin: 02/09/18 09:59 Dose: 50 mg Morphine Sulfate (Morphine) 1 mg IVP Q3 [facility] Last Admin: 02/10/18 01:04 Dose: Not Given Mupirocin (Bactroban Ointment) 0 gm TOP BID [facility] Last Admin: 02/09/18 18:51 Dose: Not Given Ondansetron HCl (Zofran Inj) 8 mg IVP Q8H PRN PRN Reason: Nausea/Vomiting Last Admin: 02/10/18 00:55 Dose: 8 mg Pantoprazole Sodium (Protonix Inj) 40 mg IVP Q12H [facility] Last Admin: 02/09/18 23:30 Dose: Not Given Polyethylene Glycol (Miralax) 17 gm PO BID [facility] Last Admin: 02/09/18 18:51 Dose: Not Given Ranolazine (Ranexa) 500 mg PO BID [facility] Last Admin: 02/09/18 21:21 Dose: 500 mg Fluticasone/Salmeterol (Advair Diskus 250/50) 1 puff INH RQ12 [facility] Last Admin: 02/09/18 20:19 Dose: Not Given Tiotropium [place] (Spiriva) 18 mcg INH RQ24 [facility] Last Admin: 02/08/18 07:50 Dose: Not Given Vitamin B Complex/Vit C/Folic Acid (Nephro-Karolyn) 1 tab PO 0800 [facility] Last Admin: 02/09/18 08:19 Dose: 1 tab Zolpidem Tartrate (Ambien) 5 mg PO HS [facility] Last Admin: 02/09/18 21:23 Dose: 5 mg - Labs Labs: 02/07/18 06:36 02/07/18 06:36 PT 13.6 SECONDS (9.7-12.2) H 01/15/18 07:10 INR 1.2 01/15/18 07:10 APTT 34 SECONDS (21-34) 12/09/17 00:22 - Additional Findings Additional findings: - Constitutional Appears: Non-toxic, No Acute Distress, Cachectic - Head Exam Head Exam: ATRAUMATIC, NORMAL INSPECTION, NORMOCEPHALIC - Eye Exam Eye Exam: EOMI, Normal appearance - ENT Exam ENT Exam: Mucous Membranes Moist - Respiratory Exam Respiratory Exam: Clear to Ausculation Bilateral, NORMAL BREATHING PATTERN - Cardiovascular Exam Cardiovascular Exam: REGULAR RHYTHM, RRR, +S1, +S2 - GI/Abdominal Exam GI & Abdominal Exam: Soft. 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 Monitor Input/Output, daily weights and renal function with basic metabolic panel supplement electrolytes as needed SBO resolved CT abd reviewed and revealed dilated bowel loops and stool retention throughout colon Dr. Ignacio consulted, help appreciated Dr. Canela consulted, help appreciated, signed off Place NG tube if patient starts to vomit avoid narcotics UTI resolved patient was treated with iv antibiotics as per Dr. Torres Schizophrenia Depakote 250mg BID Ambien 5mg po daily Vitamin D Deficiency Vit D 50,000 u q7d Constipation miralax bid COPD Spiriva Advair diskus Prophylaxis Protonix 40mg ivp daily Dr. Stephanie Wang, DO PGY1
[2018-02-10] MEDS ORDERED: Dextrose 50% SYRINGE Inj (50 ml) IV ONE (07:15)
[2018-02-10] MEDS: Multivitamin Vitamin B Complex (Nephro-Vite) Tab PO SCH (08:13)
[2018-02-10] MEDS: (Novolin R) Insulin Human Regular 100 units/ml vial SC SCH ×4 (08:14→21:46)
[2018-02-10] MEDS: Fluticasone-Salmeterol 250-50mcg Diskus INH SCH ×2 (09:03→21:01)
[2018-02-10] MEDS: Tiotropium 18 mcg Cap For Inhalation INH SCH (09:04)
[2018-02-10] MEDS: Metoprolol Succinate 50 mg XL Tab PO SCH (10:30)
[2018-02-10] MEDS: Ranolazine 500 mg Extended Release Tablets PO SCH ×2 (10:30→18:36)
[2018-02-10] MEDS: POLYETHYLENE GLYCOL 3350 17 GM/Dose PACKET PO SCH ×3 (10:30→20:55)
[2018-02-10] MEDS: Divalproex 125 mg Sprinkle Capsule PO SCH ×2 (10:30→18:35)
--- NOTE | 2018-02-10 21:20 | PN ---
DATE: 02/10/18 SUBJECTIVE: The patient still very irritable and [place], gets verbally abusive despite Depakote and wants to go home. The patient was told that she cannot go home because she needs rehab and that she cannot walk and patient needs oxygen at home. She is currently on Depakote 250 mg twice a day. We will increase it to every 8 hours for mood stabilization. Her mood is still erratic at this time. The patient also is on morphine 1 mg IV every 3 hours for pain. VITAL SIGNS: Temperature is 97.8, pulse 80, blood pressure 167/68, respirations 20. oxygen saturation 99%. REVIEW OF SYSTEMS: GENERAL: The patient is alert, verbal, forgetful, still very irritable, screaming at times, not in acute respiratory distress, on continuous oxygen treatments. SKIN: No diaphoresis. HEENT: Hard of hearing. No headache. NECK: Supple. RESPIRATORY: On continuous oxygen treatment. CARDIOVASCULAR: No chest pain. GASTROINTESTINAL: Her appetite is still viable. No nausea. No vomiting. Not complaining of abdominal pain. EXTREMITIES: Gait Is unsteady. MUSCULOSKELETAL: Feels weak. NEUROLOGIC: Oriented x2 with periods of forgetfulness. MENTAL STATUS EXAMINATION: Elderly female, who looks stated age. Oriented x2. She is forgetful. Mood is still irritable. Affect is reactive. Speech is spontaneous. Thought process, forgetful. Thought content, wants to go home, insisting that she can take care of herself, but patient cannot walk. The patient also needs oxygen at home. She told me that the landlord does not want her to have oxygen. No suicidal or homicidal ideation. No psychosis. Attention and memory seem to be limited. Insight and judgment limited. Impulse control is guarded at this time. IMPRESSION: History of delirium, metabolic encephalopathy secondary to exacerbation of chronic obstructive pulmonary disease, and also dementia with mood changes. PLAN AND RECOMMENDATION: The patient is seen, meds reviewed. We will change the Depakote dose to 250 every 8 hours for mood stabilization. Continue Ambien and Xanax as ordered. Continue pain meds as ordered, although the patient advised not to take morphine regularly as she is having some constipation with it. The patient is for subacute rehab once her Medicaid is approved. She cannot go home without 24-hour care. The patient cannot take care of herself at this time. Demetrius Burdick MD [facility] # [id number] MTDJeaneth
[2018-02-11] MEDS: Morphine 4 MG/ML VIAL IVP SCH ×3 (02:06→07:34)
[2018-02-11] MEDS: Divalproex 125 mg Sprinkle Capsule PO SCH ×5 (03:41→23:49)
--- NOTE | 2018-02-11 06:20 | CP.PCM.PN ---
<Margie Wang - Last Filed: 02/11/18 06:21> Subjective - Date & Time of Evaluation Date of Evaluation: 02/11/18 Time of Evaluation: 06:20 - Subjective Subjective: Progress note Patient seen and examined at bedside. per previous notes and RNs, patient refuses labs and yells at staff. No changes Objective - Vital Signs/Intake and Output Vital Signs (last 24 hours): Temp Pulse Resp BP Pulse Ox 98.4 F 89 20 153/68 H 100 02/11/18 04:58 02/11/18 04:58 02/11/18 04:58 02/11/18 04:58 02/11/18 04:58 Intake and Output: 02/10/18 02/11/18 18:59 06:59 Intake Total 320 Output Total 350 Balance -30 - Medications Medications: Current Medications Amlodipine Besylate (Norvasc) 10 mg PO QPM [facility] Last Admin: 02/10/18 18:36 Dose: 10 mg Aspirin (Aspirin Chewable) 81 mg PO DAILY [facility] Last Admin: 02/10/18 10:30 Dose: 81 mg Benzocaine (Anbesol) 0 ml MM QID PRN PRN Reason: Pain, Mild (1-3) Last Admin: 02/09/18 10:00 Dose: 12 ml Divalproex Sodium (Depakote Sprinkles) 250 mg PO Q8H [facility] Last Admin: 02/11/18 03:41 Dose: 250 mg Ergocalciferol (Drisdol 50,000 Intl Units Cap) 1 cap PO Q7D [facility] Stop: 02/20/18 10:01 Last Admin: 02/06/18 10:38 Dose: Not Given Furosemide (Lasix) 20 mg PO BID [facility] Last Admin: 02/10/18 18:36 Dose: 20 mg Hydralazine HCl (Apresoline) 100 mg PO TID [facility] Last Admin: 02/10/18 18:35 Dose: 100 mg Insulin Human Regular (Novolin R) 0 unit SC ACHS [facility] PRN Reason: Protocol Last Admin: 02/10/18 21:46 Dose: Not Given Metoprolol Succinate (Toprol Xl) 50 mg PO DAILY [facility] Last Admin: 02/10/18 10:30 Dose: 50 mg Morphine Sulfate (Morphine) 1 mg IVP Q3 [facility] Last Admin: 02/11/18 05:21 Dose: 1 mg Mupirocin (Bactroban Ointment) 0 gm TOP BID [facility] Last Admin: 02/10/18 18:39 Dose: Not Given Ondansetron HCl (Zofran Inj) 8 mg IVP Q8H PRN PRN Reason: Nausea/Vomiting Last Admin: 02/10/18 00:55 Dose: 8 mg Pantoprazole Sodium (Protonix Ec Tab) 40 mg PO DAILY [facility] Polyethylene Glycol (Miralax) 17 gm PO BID [facility] Last Admin: 02/10/18 20:55 Dose: 17 gm Ranolazine (Ranexa) 500 mg PO BID [facility] Last Admin: 02/10/18 18:36 Dose: 500 mg Fluticasone/Salmeterol (Advair Diskus 250/50) 1 puff INH RQ12 [facility] Last Admin: 02/10/18 21:01 Dose: Not Given Tiotropium [place] (Spiriva) 18 mcg INH RQ24 [facility] Last Admin: 02/10/18 09:04 Dose: Not Given Vitamin B Complex/Vit C/Folic Acid (Nephro-Karloyn) 1 tab PO 0800 [facility] Last Admin: 02/10/18 08:13 Dose: Not Given Zolpidem Tartrate (Ambien) 5 mg PO HS [facility] Last Admin: 02/10/18 21:00 Dose: 5 mg - Labs Labs: 02/07/18 06:36 02/07/18 06:36 PT 13.6 SECONDS (9.7-12.2) H 01/15/18 07:10 INR 1.2 01/15/18 07:10 APTT 34 SECONDS (21-34) 12/09/17 00:22 - Additional Findings Additional findings: Constitutional Appears: Non-toxic, No Acute Distress, Cachectic - Head Exam Head Exam: ATRAUMATIC, NORMAL INSPECTION, NORMOCEPHALIC - Eye Exam Eye Exam: EOMI, Normal appearance - ENT Exam ENT Exam: Mucous Membranes Moist - Respiratory Exam Respiratory Exam: Clear to Ausculation Bilateral, NORMAL BREATHING PATTERN - Cardiovascular Exam Cardiovascular Exam: REGULAR RHYTHM, RRR, +S1, +S2 - GI/Abdominal Exam GI & Abdominal Exam: Soft. 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 Monitor Input/Output, daily weights and renal function with basic metabolic panel supplement electrolytes as needed SBO resolved CT abd reviewed and revealed dilated bowel loops and stool retention throughout colon Dr. Ignacio consulted, help appreciated Dr. Canela consulted, help appreciated, signed off Place NG tube if patient starts to vomit avoid narcotics UTI resolved patient was treated with iv antibiotics as per Dr. Torres Schizophrenia Depakote 250mg BID increased to TID 02/10 Ambien 5mg po daily Vitamin D Deficiency Vit D 50,000 u q7d Constipation miralax bid COPD Spiriva Advair diskus Prophylaxis Protonix 40mg ivp daily <Nahum Fenton - Last Filed: 02/26/18 10:43> Objective - Vital Signs/Intake and Output Vital Signs (last 24 hours): Temp Pulse Resp BP Pulse Ox 97.6 F 86 18 176/65 H 97 02/26/18 08:00 02/26/18 08:00 02/26/18 08:00 02/26/18 09:33 02/26/18 08:00 Intake and Output: 02/26/18 02/26/18 06:59 18:59 Intake Total 450 Balance 450 - Medications Medications: Current Medications Amlodipine Besylate (Norvasc) 10 mg PO QPM [facility] Last Admin: 02/25/18 18:25 Dose: 10 mg Aspirin (Aspirin Chewable) 81 mg PO DAILY [facility] Last Admin: 02/26/18 09:30 Dose: 81 mg Divalproex Sodium (Depakote Sprinkles) 250 mg PO Q8H [facility] Last Admin: 02/26/18 09:30 Dose: 250 mg Furosemide (Lasix) 20 mg PO BID [facility] Last Admin: 05/28/18 09:33 Dose: 20 mg Hydralazine HCl (Apresoline) 100 mg PO Q8 [facility] Last Admin: 02/26/18 05:00 Dose: 100 mg Lidocaine (Lidoderm) 1 ea TD DAILY [facility] Last Admin: 02/26/18 09:30 Dose: 1 ea Metoprolol Succinate (Toprol Xl) 50 mg PO DAILY [facility] Last Admin: 02/26/18 09:34 Dose: 50 mg Morphine Sulfate (Morphine) 1 mg IVP Q4 PRN PRN Reason: Pain, moderate (4-7) Last Admin: 02/26/18 09:30 Dose: 1 mg Ondansetron HCl (Zofran Inj) 4 mg IVP Q4H PRN PRN Reason: Nausea/Vomiting Last Admin: 02/26/18 08:29 Dose: 4 mg Pantoprazole Sodium (Protonix Ec Tab) 40 mg PO DAILY [facility] Last Admin: 02/26/18 09:30 Dose: 40 mg Ranolazine (Ranexa) 500 mg PO BID [facility] Last Admin: 02/26/18 09:30 Dose: 500 mg Fluticasone/Salmeterol (Advair Diskus 250/50) 1 puff INH RQ12 [facility] Last Admin: 02/26/18 07:16 Dose: Not Given Tramadol HCl (Ultram) 50 mg PO TID [facility] Last Admin: 02/25/18 19:00 Dose: Not Given Vitamin B Complex/Vit C/Folic Acid (Nephro-Karolyn) 1 tab PO 0800 [facility] Last Admin: 02/26/18 08:31 Dose: 1 tab Zolpidem Tartrate (Ambien) 5 mg PO HS PRN PRN Reason: Insomnia - Labs Labs: 02/23/18 11:17 02/23/18 11:17 PT 13.6 SECONDS (9.7-12.2) H 01/15/18 07:10 INR 1.2 01/15/18 07:10 APTT 34 SECONDS (21-34) 12/09/17 00:22 Attending/Attestation - Attestation I have personally seen and examined this patient.: Yes I have fully participated in the care of the patient.: Yes I have reviewed all pertinent clinical information, including history, physical exam and plan: Yes Notes (Text): Seen and examined by me Discussed with the residents I agree with the documentation of the assessment and the plan
[2018-02-11] MEDS: (Novolin R) Insulin Human Regular 100 units/ml vial SC SCH ×4 (07:30→22:04)
[2018-02-11] MEDS: Multivitamin Vitamin B Complex (Nephro-Vite) Tab PO SCH (09:00)
[2018-02-11] MEDS: Fluticasone-Salmeterol 250-50mcg Diskus INH SCH ×2 (09:07→19:36)
[2018-02-11] MEDS: Tiotropium 18 mcg Cap For Inhalation INH SCH (09:08)
[2018-02-11] MEDS: Pantoprazole 40 mg EC Tab PO SCH (10:01)
[2018-02-11] MEDS: Metoprolol Succinate 50 mg XL Tab PO SCH (10:01)
[2018-02-11] MEDS: POLYETHYLENE GLYCOL 3350 17 GM/Dose PACKET PO SCH ×2 (10:03→18:04)
[2018-02-11] MEDS: Ranolazine 500 mg Extended Release Tablets PO SCH ×2 (10:37→17:59)
--- NOTE | 2018-02-11 12:44 | PN ---
DATE: SUBJECTIVE: I saw her resting comfortably in bed. She is good spirits. She has makeup on. She is eating. She is trying to get out of bed every day, walking a little bit. PHYSICAL EXAMINATION VITAL SIGNS: She has 98 temp, 82 pulse, 162/67 blood pressure, 18 respiratory rate, and 100% O2 sat on 3 L nasal cannula. HEENT: Head is atraumatic, normocephalic. HEART: Regular rate. LUNGS: Decreased breath sounds, but clear. ABDOMEN: Soft, nontender. Positive bowel sounds. EXTREMITIES: No edema. She is currently on Advair, Ambien, , Apresoline, aspirin, Bactroban, Depakote, Drisdol, Lasix, MiraLax, Nephro-Karolyn, Norvasc, Novolin, Protonix, Ranexa, Spiriva, Toprol, and Zofran. LABORATORY DATA: Last labs on 02/07/2018 show a 12.1 white count, 10.9 hemoglobin; 32 hematocrit with 329 platelets. Last SMA-20 was on 02/07/2018, sodium 138, potassium 3.4, BUN 50, creatinine 1.8, sugar 87, calcium 9.1, total bili is 0.7, AST is 20, ALT is 16, alk phos 54, total protein 5.8. I will order labs for tomorrow. Encouraged her to get out of bed to chair, eat the food. We are still waiting for Medicaid to come through, see what the plan would be for her. She is very upset with the idea of maybe not going home to her dog and cat. She has CHF, COPD, anxiety, and inability to take care of herself at home anymore. John Brown DO MTDD
[2018-02-11] MEDS: Benzocaine 10% Oral Anesthetic (12 ml) MM PRN (21:31)
[2018-02-12] MEDS: Morphine 4 MG/ML VIAL IVP PRN ×5 (06:23→21:06)
[2018-02-12] MEDS: Fluticasone-Salmeterol 250-50mcg Diskus INH SCH ×2 (07:59→20:08)
[2018-02-12] MEDS: Tiotropium 18 mcg Cap For Inhalation INH SCH (08:00)
[2018-02-12] MEDS: (Novolin R) Insulin Human Regular 100 units/ml vial SC SCH ×4 (08:15→21:28)
[2018-02-12] MEDS: Multivitamin Vitamin B Complex (Nephro-Vite) Tab PO SCH (08:45)
[2018-02-12] MEDS: Divalproex 125 mg Sprinkle Capsule PO SCH ×3 (08:45→23:57)
[2018-02-12] MEDS: POLYETHYLENE GLYCOL 3350 17 GM/Dose PACKET PO SCH ×2 (09:27→17:39)
[2018-02-12] MEDS: Pantoprazole 40 mg EC Tab PO SCH (09:27)
[2018-02-12] MEDS: Ranolazine 500 mg Extended Release Tablets PO SCH ×2 (09:27→17:38)
[2018-02-12] MEDS: Metoprolol Succinate 50 mg XL Tab PO SCH (09:33)
[2018-02-12 11:23] LABS: HEMOGLOBIN 10.6 g/dL (11.0-16.0); MEAN CORPUSCULAR HEMOGLOBIN 29.4 pg (27.0-31.0); MEAN CORPUSCULAR HGB CONC 33.4 g/dL (33.0-37.0); MEAN PLATELET VOLUME 9.6 fL (7.2-11.7); RBC 3.59 Mil/uL (3.80-5.20); RED CELL DISTRIBUTION WIDTH 16.4 % (11.5-14.5); WHITE BLOOD COUNT 15.8 K/uL (4.8-10.8)
[2018-02-12 11:49] LABS: ALB/GLOB RATIO 1.2 (1.0-2.1); ALBUMIN 3.2 g/dL (3.5-5.0); CALCIUM 9.4 mg/dl (8.6-10.4)
--- NOTE | 2018-02-12 12:01 | PN ---
DATE: . SUBJECTIVE: She was very calm and supporting, quiet, very inquisitive about her Medicaid application and she thinks she is going to get it this week, I hope so. She has been here too long. She is also refusing labs, I need to know what her BUN and creatinine is and she has to drink more water, we discussed that, hopefully she will listen. PHYSICAL EXAMINATION: VITAL SIGNS: She has 98.4 temp, 75 pulse, 153/59 blood pressure, 20 respiratory rate and 100% O2 sat on 2 L nasal cannula. GENERAL: She is comfortable. She is alert. She is quiet. She is not yelling or screaming or cursing, she seems good. HEENT: Head is atraumatic, normocephalic. HEART: Regular rate. LUNGS: Decreased breath sounds, but clear. ABDOMEN: Soft, nontender. Positive bowel sounds. EXTREMITIES: No edema. LABORATORY DATA: I am waiting for labs to happen. Last blood sugar was 87. MEDICATIONS: She is on Advair, Ambien, Apresoline, aspirin, Bactroban, Depakote, Drisdol, Lasix, MiraLax, morphine, Nephro-Karolyn, Norvasc, Novolin, Protonix, Ranexa, Spiriva, Toprol and Zofran. ASSESSMENT AND PLAN: I stopped Toradol and tramadol due to the kidney function as we are waiting for labs to come back. She is being seen by Psychiatry and Renal, awaiting Medicaid, plan for discharge . She has congestive heart failure, chronic obstructive pulmonary disease, renal insufficiency and mental status changes. John Brown DO MTDD
--- NOTE | 2018-02-12 17:36 | PN ---
DATE: 02/12/2018 SUBJECTIVE: The patient is seen in her room. The patient still wants to go home. The patient is tolerating the recent change of Depakote dose to 250 mg q.8h. Today, she states that she is no longer going to have the IV morphine but wants p.o. and that she was cooperative with physical therapy but according to Physical Therapy hurts her foot. OBJECTIVE: VITAL SIGNS: Temperature is 98.4, pulse 75, blood pressure is 167/64, respirations 20, oxygen saturations 100%. GENERAL: The patient is alert and oriented X2, still forgetful, seen in her room. The patient wants to go home. SKIN: No diaphoresis. HEENT: No headache. No dizziness. Still hard of hearing. NECK: Supple. RESPIRATORY: Continuous oxygen treatment. CARDIOVASCULAR: No chest pain. GASTROINTESTINAL: Appetite is variable. EXTREMITIES: The patient is complaining of pain in her right foot secondary to the physical therapy that she had. Gait is unsteady. NEUROLOGIC: Alert but forgetful. GENITOURINARY: Did not have any dysuria. MENTAL STATUS: Elderly female, looks stated age, oriented x2. Mood is much calmer. Affect less irritable, reactive. Speech spontaneous. Thought process forgetful. Thought content, still wants to go home but not persistent. The patient is told that her papers are almost in place for Medicaid. She states that she wants to go home but also states that if she can walk, she will go for rehab. No paranoia. No hallucinations. No suicidal ideation. Attention and memory still limited. Insight and judgment limited. Impulse control is fair at this time. IMPRESSION: History of delirium, metabolic encephalopathy secondary to exacerbation of chronic obstructive pulmonary disease with senile dementia with mood changes, debility, gait dysfunction. PLAN AND RECOMMENDATIONS: Medications reviewed. Continue present management. Continue present psych meds as ordered. The patient awaiting completion of her Medicaid before going to subacute rehab. The patient still cannot take care of herself at home alone and will need 24-hour care. Demetrius Burdick MD
[2018-02-13] MEDS: (Novolin R) Insulin Human Regular 100 units/ml vial SC SCH ×4 (08:33→22:56)
[2018-02-13] MEDS: Pantoprazole 40 mg EC Tab PO SCH (09:20)
[2018-02-13] MEDS: Multivitamin Vitamin B Complex (Nephro-Vite) Tab PO SCH (09:20)
[2018-02-13] MEDS: Metoprolol Succinate 50 mg XL Tab PO SCH (09:20)
[2018-02-13] MEDS: Ergocalciferol 50,000 Intl Units Cap PO SCH (09:21)
[2018-02-13] MEDS: Tiotropium 18 mcg Cap For Inhalation INH SCH (09:24)
[2018-02-13] MEDS: Fluticasone-Salmeterol 250-50mcg Diskus INH SCH ×2 (09:24→19:55)
[2018-02-13] MEDS: POLYETHYLENE GLYCOL 3350 17 GM/Dose PACKET PO SCH ×2 (09:25→17:50)
[2018-02-13] MEDS: Divalproex 125 mg Sprinkle Capsule PO SCH ×2 (09:46→16:44)
--- NOTE | 2018-02-13 10:27 | PN ---
DATE: 02/13/2018 SUBJECTIVE: She had a good night last night. I discussed it with the nurse, she slept well. She took her medications. She is comfortable. No chest pain or shortness of breath. No abdominal pain. She is actually pleasant , talking nicely, not yelling or screaming. MEDICATIONS: She is on Advair, Ambien, Anbesol, Apresoline, aspirin, Bactroban cream, Depakote, Drisdol, Lasix, MiraLax, morphine, vitamins, Norvasc, Novolin, Protonix, Ranexa, Spiriva, Toprol and Zofran. PHYSICAL EXAMINATION: VITAL SIGNS: Temperature 98.1, 75 pulse, 127/67 blood pressure, 20 respiratory rate, 97% O2 sat on 2 L nasal cannula. HEENT: Head is atraumatic, normocephalic. Throat is moist. NECK: Supple. HEART: Regular rate. LUNGS: Decreased breath sounds, but clear. ABDOMEN: Soft, nontender. Positive bowel sounds. EXTREMITIES: No edema. She does get out of bed to chair, she tells me. LABORATORY DATA: She has a 15.8 white count, I am not sure why that went up, 10.6 hemoglobin, 31.6 hematocrit with a 340 platelets. She had a 138 sodium, potassium 4.2, BUN 41, creatinine 1.3 that is better, GFR is 40, sugar is 120, calcium 9.4, total bili is 0.7. AST is 15, ALT is 14, alk phos 46, total protein is 5.9. ASSESSMENT AND PLAN: I am concerned about her leukocytosis. I do not have any source, I will consult Dr. Torres, Infectious Disease and wants do urine and blood cultures on her. We will see if she might need to be on antibiotics. We shall also change the site of her IV maybe go for a midline. We will check her labs tomorrow. John Brown DO
[2018-02-13] MEDS: Ranolazine 500 mg Extended Release Tablets PO SCH ×2 (10:48→17:50)
--- NOTE | 2018-02-13 12:26 | CP.PCM.PN ---
Subjective - Date & Time of Evaluation Date of Evaluation: 02/13/18 Time of Evaluation: 07:00 - Subjective Subjective: wbc up denies fever abd pain same cultures sent abd soft Objective - Vital Signs/Intake and Output Vital Signs (last 24 hours): Temp Pulse Resp BP Pulse Ox 97.6 F 77 18 157/68 H 95 02/13/18 07:50 02/13/18 07:50 02/13/18 07:50 02/13/18 09:20 02/13/18 07:50 - Medications Medications: Current Medications Amlodipine Besylate (Norvasc) 10 mg PO QPM [facility] Last Admin: 02/12/18 17:38 Dose: 10 mg Aspirin (Aspirin Chewable) 81 mg PO DAILY [facility] Last Admin: 02/13/18 09:21 Dose: 81 mg Benzocaine (Anbesol) 0 ml MM QID PRN PRN Reason: Pain, Mild (1-3) Last Admin: 02/11/18 21:31 Dose: 12 ml Divalproex Sodium (Depakote Sprinkles) 250 mg PO Q8H [facility] Last Admin: 02/13/18 09:46 Dose: 250 mg Ergocalciferol (Drisdol 50,000 Intl Units Cap) 1 cap PO Q7D [facility] Stop: 02/20/18 10:01 Last Admin: 02/13/18 09:21 Dose: 1 cap Furosemide (Lasix) 20 mg PO BID [facility] Last Admin: 02/13/18 09:20 Dose: 20 mg Hydralazine HCl (Apresoline) 100 mg PO TID [facility] Last Admin: 02/13/18 09:20 Dose: 100 mg Insulin Human Regular (Novolin R) 0 unit SC [facility] PRN Reason: Protocol Last Admin: 02/13/18 08:33 Dose: Not Given Metoprolol Succinate (Toprol Xl) 50 mg PO DAILY [facility] Last Admin: 02/13/18 09:20 Dose: 50 mg Mupirocin (Bactroban Ointment) 0 gm TOP BID [facility] Last Admin: 02/13/18 10:47 Dose: Not Given Ondansetron HCl (Zofran Odt) 4 mg PO Q8H PRN PRN Reason: Nausea/Vomiting Last Admin: 02/13/18 09:47 Dose: 4 mg Pantoprazole Sodium (Protonix Ec Tab) 40 mg PO DAILY [facility] Last Admin: 02/13/18 09:20 Dose: 40 mg Polyethylene Glycol (Miralax) 17 gm PO BID [facility] Last Admin: 02/13/18 09:25 Dose: Not Given Ranolazine (Ranexa) 500 mg PO BID [facility] Last Admin: 02/13/18 10:48 Dose: 500 mg Fluticasone/Salmeterol (Advair Diskus 250/50) 1 puff INH RQ12 [facility] Last Admin: 02/13/18 09:24 Dose: Not Given Tiotropium [place] (Spiriva) 18 mcg INH RQ24 [facility] Last Admin: 02/13/18 09:24 Dose: Not Given Tramadol HCl (Ultram) 50 mg PO TID [facility] Last Admin: 02/13/18 10:55 Dose: 50 mg Vitamin B Complex/Vit C/Folic Acid (Nephro-Karolyn) 1 tab PO 0800 [facility] Last Admin: 02/13/18 09:20 Dose: 1 tab Zolpidem Tartrate (Ambien) 5 mg PO HS [facility] Last Admin: 02/13/18 00:01 Dose: 5 mg - Labs Labs: 02/12/18 11:08 02/12/18 11:08 PT 13.6 SECONDS (9.7-12.2) H 01/15/18 07:10 INR 1.2 01/15/18 07:10 APTT 34 SECONDS (21-34) 12/09/17 00:22 Assessment and Plan (1) Non-ST elevated myocardial infarction (non-STEMI) Status: Acute (2) Peripheral visual field defect of both eyes Status: Acute (3) UTI (urinary tract infection) Status: Acute (4) CHF (congestive heart failure) Status: Chronic
[2018-02-14] MEDS: Divalproex 125 mg Sprinkle Capsule PO SCH ×3 (00:43→16:20)
[2018-02-14 06:57] LABS: HEMOGLOBIN 9.8 g/dL (11.0-16.0); MEAN CELL VOLUME 88.6 fL (81.0-99.0); MEAN CORPUSCULAR HEMOGLOBIN 30.1 pg (27.0-31.0); MEAN PLATELET VOLUME 9.4 fL (7.2-11.7); RBC 3.24 Mil/uL (3.80-5.20); RED CELL DISTRIBUTION WIDTH 15.8 % (11.5-14.5); WHITE BLOOD COUNT 9.7 K/uL (4.8-10.8)
[2018-02-14] MEDS: Fluticasone-Salmeterol 250-50mcg Diskus INH SCH ×2 (07:13→20:08)
[2018-02-14] MEDS: Tiotropium 18 mcg Cap For Inhalation INH SCH (07:13)
[2018-02-14 07:23] LABS: ALB/GLOB RATIO 1.2 (1.0-2.1); CALCIUM 9.3 mg/dl (8.6-10.4)
[2018-02-14] MEDS: (Novolin R) Insulin Human Regular 100 units/ml vial SC SCH ×4 (08:31→22:38)
[2018-02-14] MEDS: Multivitamin Vitamin B Complex (Nephro-Vite) Tab PO SCH ×2 (08:31)
[2018-02-14] MEDS: POLYETHYLENE GLYCOL 3350 17 GM/Dose PACKET PO SCH ×2 (10:53→18:40)
[2018-02-14] MEDS: Metoprolol Succinate 50 mg XL Tab PO SCH ×2 (10:53→12:03)
[2018-02-14] MEDS: Pantoprazole 40 mg EC Tab PO SCH ×2 (10:53→11:59)
[2018-02-14] MEDS: Ranolazine 500 mg Extended Release Tablets PO SCH ×3 (10:53→18:40)
--- NOTE | 2018-02-14 11:23 | PN ---
DATE: 02/14/2018 SUBJECTIVE: I saw her in bed this morning. She is quite upset. She wants her morphine back. I stopped the morphine. getting her ready for discharge and could not have morphine at home. She has been on tramadol before. I will put her back on tramadol and Tylenol, get her off the morphine. She does not appear to be in any distress. She is just yelling and angry. She is on Advair, Ambien, Anbesol, Apresoline, aspirin, Bactroban, Depakote, Drisdol, Lasix, MiraLAX, Nephro-Karolyn, Norvasc, Novolin, Protonix, Ranexa, Spiriva, Toprol, Tylenol, Ultram, and Zofran. PHYSICAL EXAMINATION: VITAL SIGNS: Temperature 98.5, 73 pulse, 146/62 blood pressure, 20 respiratory rate, 100% O2 sat on room air. HEENT: Head is atraumatic, normocephalic. HEART: Regular rate. LUNGS: Clear to auscultation with decreased breath sounds. ABDOMEN: Soft, nontender. Positive bowel sounds. EXTREMITIES: No edema. She is alert, comfortable in bed at this time with the nurse, and she wants the morphine. I am trying to get her off morphine and switch her to tramadol. LABORATORY DATA: She has 15.8 white count. I am waiting for the next lab to come back. Sodium 138, BUN 41, creatinine 1.3, GFR is 40. ASSESSMENT AND PLAN: Hopefully, she will get the blood tests done. She always seems to refuse. I called in Infectious Disease because of the elevated white count to get their opinion. We did cultures, wait and see what they say. No new antibiotics. Continue with treatment care. We will try and get labs for tomorrow. I discussed with the nurse about giving her stat tramadol and a few Tylenol. I am trying to keep her off the morphine and to know how the kidney functions are. Hopefully, she will get the blood tests for us. Also waiting for placement. She has congestive heart failure, chronic obstructive pulmonary disease, acute kidney injury, renal insufficiency, leukocytosis, and chronic pain. John Brown DO MTDJeaneth
--- NOTE | 2018-02-14 19:36 | CP.PCM.PN ---
Subjective - Date & Time of Evaluation Date of Evaluation: 02/14/18 Time of Evaluation: 09:00 - Subjective Subjective: remains bed bound awake nad Objective - Vital Signs/Intake and Output Vital Signs (last 24 hours): Temp Pulse Resp BP Pulse Ox 98.2 F 72 20 166/69 H 99 02/14/18 07:00 02/14/18 07:00 02/14/18 07:00 02/14/18 12:02 02/14/18 07:00 - Medications Medications: Current Medications Amlodipine Besylate (Norvasc) 10 mg PO QPM [facility] Last Admin: 02/14/18 18:40 Dose: Not Given Aspirin (Aspirin Chewable) 81 mg PO DAILY [facility] Last Admin: 02/14/18 11:59 Dose: 81 mg Benzocaine (Anbesol) 0 ml MM QID PRN PRN Reason: Pain, Mild (1-3) Last Admin: 02/11/18 21:31 Dose: 12 ml Divalproex Sodium (Depakote Sprinkles) 250 mg PO Q8H [facility] Last Admin: 02/14/18 16:20 Dose: Not Given Ergocalciferol (Drisdol 50,000 Intl Units Cap) 1 cap PO Q7D [facility] Stop: 02/20/18 10:01 Last Admin: 02/13/18 09:21 Dose: 1 cap Furosemide (Lasix) 20 mg PO BID [facility] Last Admin: 02/14/18 18:40 Dose: Not Given Hydralazine HCl (Apresoline) 100 mg PO TID [facility] Last Admin: 02/14/18 18:39 Dose: Not Given Insulin Human Regular (Novolin R) 0 unit SC [facility] PRN Reason: Protocol Last Admin: 02/14/18 17:15 Dose: Not Given Metoprolol Succinate (Toprol Xl) 50 mg PO DAILY [facility] Last Admin: 02/14/18 12:03 Dose: 50 mg Mupirocin (Bactroban Ointment) 0 gm TOP BID [facility] Last Admin: 02/14/18 18:39 Dose: Not Given Ondansetron HCl (Zofran Odt) 4 mg PO Q8H PRN PRN Reason: Nausea/Vomiting Last Admin: 02/13/18 09:47 Dose: 4 mg Pantoprazole Sodium (Protonix Ec Tab) 40 mg PO DAILY [facility] Last Admin: 02/14/18 11:59 Dose: 40 mg Polyethylene Glycol (Miralax) 17 gm PO BID [facility] Last Admin: 02/14/18 18:40 Dose: Not Given Ranolazine (Ranexa) 500 mg PO BID [facility] Last Admin: 02/14/18 18:40 Dose: Not Given Fluticasone/Salmeterol (Advair Diskus 250/50) 1 puff INH RQ12 [facility] Last Admin: 02/14/18 07:13 Dose: Not Given Tiotropium [place] (Spiriva) 18 mcg INH RQ24 [facility] Last Admin: 02/14/18 07:13 Dose: Not Given Tramadol HCl (Ultram) 50 mg PO TID [facility] Last Admin: 02/14/18 18:41 Dose: Not Given Vitamin B Complex/Vit C/Folic Acid (Nephro-Karolyn) 1 tab PO 0800 [facility] Last Admin: 02/14/18 08:31 Dose: Not Given Zolpidem Tartrate (Ambien) 5 mg PO HS [facility] Last Admin: 02/13/18 22:56 Dose: Not Given - Labs Labs: 02/14/18 06:49 02/14/18 06:49 PT 13.6 SECONDS (9.7-12.2) H 01/15/18 07:10 INR 1.2 01/15/18 07:10 APTT 34 SECONDS (21-34) 12/09/17 00:22 - Constitutional Appears: Non-toxic, Chronically Ill - Head Exam Head Exam: NORMOCEPHALIC - Eye Exam Eye Exam: PERRL - ENT Exam ENT Exam: Mucous Membranes Dry - Neck Exam Neck Exam: absent: Lymphadenopathy - Respiratory Exam Respiratory Exam: Decreased Breath Sounds - Cardiovascular Exam Cardiovascular Exam: REGULAR RHYTHM - GI/Abdominal Exam GI & Abdominal Exam: Distended - Rectal Exam Rectal Exam: Deferred - Exam Exam: NORMAL INSPECTION - Extremities Exam Extremities Exam: absent: Pedal Edema - Back Exam Back Exam: absent: CVA tenderness (L), CVA tenderness (R) - Neurological Exam Neurological Exam: Alert, Awake Assessment and Plan (1) Non-ST elevated myocardial infarction (non-STEMI) Status: Acute (2) Peripheral visual field defect of both eyes Status: Acute (3) UTI (urinary tract infection) Status: Acute (4) CHF (congestive heart failure) Status: Chronic - Assessment and Plan (Free Text) Assessment: cultures so far neg wbc trending down supportive rx
[2018-02-15] MEDS: Divalproex 125 mg Sprinkle Capsule PO SCH ×3 (01:22→16:37)
[2018-02-15] MEDS: Tiotropium 18 mcg Cap For Inhalation INH SCH (07:23)
[2018-02-15] MEDS: Fluticasone-Salmeterol 250-50mcg Diskus INH SCH (07:23)
[2018-02-15] MEDS: Ranolazine 500 mg Extended Release Tablets PO SCH ×2 (09:21→17:07)
[2018-02-15] MEDS: Multivitamin Vitamin B Complex (Nephro-Vite) Tab PO SCH (09:22)
[2018-02-15] MEDS: Metoprolol Succinate 50 mg XL Tab PO SCH (09:22)
[2018-02-15] MEDS: Pantoprazole 40 mg EC Tab PO SCH (09:22)
[2018-02-15] MEDS: (Novolin R) Insulin Human Regular 100 units/ml vial SC SCH ×4 (09:27→22:04)
[2018-02-15] MEDS: POLYETHYLENE GLYCOL 3350 17 GM/Dose PACKET PO SCH ×2 (09:28→17:07)
--- NOTE | 2018-02-15 10:06 | PN ---
DATE: SUBJECTIVE: I saw Kathy resting in bed. She had a very good morning. She slept very well. She is trying to eat. She is trying to do well with walking. She is on Advair, Ambien, Anbesol, Apresoline, aspirin, Bactroban cream, Depakote, Drisdol, Lasix, MiraLax, Nephro-Karolyn, Norvasc, Novolin, Protonix, Ranexa, Spiriva, Toprol, Ultram, and Zofran. PHYSICAL EXAMINATION: GENERAL: She is pleasant this morning. VITAL SIGNS: She has 98 temperature, 67 pulse, 143/58 blood pressure, 20 respiratory rate, 100% O2 sat on nasal cannula. HEENT: Head is atraumatic, normocephalic. HEART: Regular rate. LUNGS: Decreased breath sounds but clear. ABDOMEN: Soft, nontender. Positive bowel sounds. EXTREMITIES: No edema. LABORATORY DATA: She has a blood test done. She has a 9.7 white count, it came down, which is great; 9.8 hemoglobin; 28.7 hematocrit, 299 platelets. She has a 140 sodium, potassium 4.3, BUN is 43, creatinine 1.4, a little bit GFR is 37, sugar is 134, calcium 9.3, total bili is 0.3, AST is 13, ALT is 15, alk phos 44, total protein is 5.6. ASSESSMENT AND PLAN: She is being seen by Infectious Disease, Psychiatry, Renal. She has congestive heart failure, chronic obstructive pulmonary disease, renal insufficiency, leukocytosis which has resolved, chronic pain, and we are waiting for a placement on her. Continue with aggressive treatment and care. Cultures were negative. John Brown DO MTDD
[2018-02-16] MEDS: Morphine 4 MG/ML VIAL IVP PRN ×4 (06:36→20:09)
[2018-02-16] MEDS: Tiotropium 18 mcg Cap For Inhalation INH SCH (07:24)
[2018-02-16] MEDS: Fluticasone-Salmeterol 250-50mcg Diskus INH SCH ×2 (07:24→22:44)
[2018-02-16] MEDS: (Novolin R) Insulin Human Regular 100 units/ml vial SC SCH ×4 (08:11→21:42)
[2018-02-16] MEDS: Multivitamin Vitamin B Complex (Nephro-Vite) Tab PO SCH (08:22)
[2018-02-16] MEDS: Divalproex 125 mg Sprinkle Capsule PO SCH ×3 (08:22→17:48)
[2018-02-16] MEDS: Pantoprazole 40 mg EC Tab PO SCH (09:55)
[2018-02-16] MEDS: Ranolazine 500 mg Extended Release Tablets PO SCH ×2 (09:55→17:48)
[2018-02-16] MEDS: Lidocaine 5% Patch TD SCH (09:56)
[2018-02-16] MEDS: POLYETHYLENE GLYCOL 3350 17 GM/Dose PACKET PO SCH ×2 (09:56→21:02)
[2018-02-16] MEDS: Metoprolol Succinate 50 mg XL Tab PO SCH (09:56)
--- NOTE | 2018-02-16 10:37 | PN ---
DATE: SUBJECTIVE: She is getting very frustrated. She was find out that she was able to be discharged from the hospital, she has not. She wants to see her dog and her cat. She will go to subacute rehab, awaiting placement. She goes into a lot of pain, the tramadol was not really helping her. She wants some morphine, we are trying to get her off the morphine but she is in a lot of pain right now. MEDICATIONS: She is on Advair, Ambien, Anbesol, Apresoline, aspirin, Bactroban ointment, Depakote, Drisdol, Lasix, MiraLax. I will give her morphine 1 every 4 hours p.r.n., Nephro-Karolyn, Norvasc, Novolin, Protonix, Ranexa, Spiriva, Toprol, Tylenol, Ultram, and Zofran. We will also put her on a patch. PHYSICAL EXAMINATION VITAL SIGNS: She has a 98.3 temperature, 73 pulse, 175/61 blood pressure in pain, 20 respiratory rate, 100% O2 sat on room air. HEENT: Head is atraumatic and normocephalic. HEART: Regular rate. LUNGS: Decreased breath sounds but clear. Poor inspiration. No wheezes, rhonchi, or rales. ABDOMEN: Mildly distended with guarding on the left side today. Positive bowel sounds. No rebound. EXTREMITIES: Legs are okay, no edema. LABORATORY DATA: No labs for today. She had gram-negative rods 10,000 to 50,000, proteus mirabilis in urine culture with gram-positive cocci in urine. We will await and see what Dr. Torres, the infectious disease doctor does. We will add Lidoderm or Flector patches, we will have them formulary. We will continue aggressive treatment and care. Kathy Painter with congestive heart failure, chronic obstructive pulmonary disease, chronic abdominal pain, renal insufficiency. Awaiting placement. John Brown DO [facility]ITAL[facility]
[2018-02-17] MEDS: Morphine 4 MG/ML VIAL IVP PRN ×4 (00:31→22:29)
[2018-02-17] MEDS: Divalproex 125 mg Sprinkle Capsule PO SCH ×3 (00:35→17:00)
[2018-02-17] MEDS: (Novolin R) Insulin Human Regular 100 units/ml vial SC SCH ×4 (07:30→22:06)
[2018-02-17] MEDS: Tiotropium 18 mcg Cap For Inhalation INH SCH (07:51)
[2018-02-17] MEDS: Fluticasone-Salmeterol 250-50mcg Diskus INH SCH ×2 (07:51→19:56)
[2018-02-17] MEDS: Multivitamin Vitamin B Complex (Nephro-Vite) Tab PO SCH (08:23)
--- NOTE | 2018-02-17 09:39 | PN ---
DATE: 02/17/2018 SUBJECTIVE: She is actually quite well this morning. She is in good spirits. She is feeling better. She got some morphine for pain, every now and then and it makes her feel better. She is still waiting for the Medicaid process to go through. She walks a little bit . She gets out of bed a little bit. She wants to go home, MEDICATIONS: She is on Advair, Ambien, Anbesol, Apresoline, aspirin, Bactroban, Depakote, Drisdol, Lasix, Lidoderm, MiraLax, morphine, Nephro-Karolyn, Norvasc, Novolin, Protonix, Ranexa, Spiriva, Toprol, Ultram, and Zofran. PHYSICAL EXAMINATION: VITAL SIGNS: Temperature 98.1, pulse 73, blood pressure 163/61, respiratory rate 18, 99% O2 sat on 2 L. HEENT: Head is atraumatic and normocephalic. HEART: Regular rate. LUNGS: Decreased breath sounds but clear. ABDOMEN: Soft, nontender. Positive bowel sounds. No guarding. No rebound. EXTREMITIES: No edema. LABORATORY DATA: She did not get a blood test. I will order a blood test tomorrow. Last blood sugar was 92. Urine was clean, stool was negative. ASSESSMENT AND PLAN: She is being seen by Infectious Disease, Psychiatry and Renal. She has congestive heart failure, chronic obstructive pulmonary disease, abdominal pain, renal insufficiency. We will check her labs tomorrow. John Brown DO MTDD
[2018-02-17] MEDS: Ranolazine 500 mg Extended Release Tablets PO SCH ×2 (10:02→17:44)
[2018-02-17] MEDS: Metoprolol Succinate 50 mg XL Tab PO SCH (10:02)
[2018-02-17] MEDS: Pantoprazole 40 mg EC Tab PO SCH (10:02)
[2018-02-17] MEDS: Lidocaine 5% Patch TD SCH (10:02)
[2018-02-17] MEDS: POLYETHYLENE GLYCOL 3350 17 GM/Dose PACKET PO SCH ×2 (10:03→17:43)
[2018-02-18] MEDS: Divalproex 125 mg Sprinkle Capsule PO SCH ×3 (00:41→16:00)
[2018-02-18] MEDS: Morphine 4 MG/ML VIAL IVP PRN ×3 (07:29→19:08)
[2018-02-18 07:56] LABS: HEMOGLOBIN 9.1 g/dL (11.0-16.0); MEAN CELL VOLUME 89.8 fL (81.0-99.0); MEAN CORPUSCULAR HEMOGLOBIN 30.9 pg (27.0-31.0); MEAN CORPUSCULAR HGB CONC 34.4 g/dL (33.0-37.0); MEAN PLATELET VOLUME 9.9 fL (7.2-11.7); RBC 2.96 Mil/uL (3.80-5.20); RED CELL DISTRIBUTION WIDTH 16.6 % (11.5-14.5); WHITE BLOOD COUNT 9.7 K/uL (4.8-10.8)
[2018-02-18] MEDS: Multivitamin Vitamin B Complex (Nephro-Vite) Tab PO SCH (08:09)
[2018-02-18] MEDS: (Novolin R) Insulin Human Regular 100 units/ml vial SC SCH ×4 (08:09→21:29)
[2018-02-18 08:20] LABS: ALB/GLOB RATIO 1.2 (1.0-2.1); ALBUMIN 2.9 g/dL (3.5-5.0); CALCIUM 8.9 mg/dl (8.6-10.4)
[2018-02-18] MEDS: Tiotropium 18 mcg Cap For Inhalation INH SCH (08:30)
[2018-02-18] MEDS: Fluticasone-Salmeterol 250-50mcg Diskus INH SCH (08:30)
--- NOTE | 2018-02-18 10:30 | PN ---
DATE: SUBJECTIVE: I saw Kathy resting comfortably in bed. She slept fairly well. She is upset with the blood tests when I saw her this morning. Otherwise, she is in fairly good spirits today. PHYSICAL EXAMINATION: VITAL SIGNS: She has 98.1 temp, 80 pulse, 132/56 blood pressure, 20 respiratory rate, 96% O2 sat on 2 L of nasal canula. HEENT: Head: Atraumatic and normocephalic. Throat is moist. NECK: Supple. HEART: Regular rate. LUNGS: Decreased breath sounds, but clear. ABDOMEN: Soft, nontender. Positive bowel sounds. EXTREMITIES: No edema. No abdominal pain today. She is currently on Advair, Ambien, Anbesol, Apresoline, aspirin, Bactroban, Depakote, Drisdol, Lasix, Lidoderm, MiraLAX, morphine, Nephro-Karolyn, Norvasc, Novolin, Protonix, Ranexa, Spiriva, Toprol, Ultram, and Zofran. LABORATORY DATA: She has a 9.7 white count, 9.8 hemoglobin, Sodium 145, potassium 4.3, BUN 42, creatinine 1.4. Last blood sugar 118. AST is 13, ALT is 15, alk phos is 44, total protein is 5.6, ASSESSMENT AND PLAN: She is being seen by Infectious Disease, Psychiatry, and Renal. We are awaiting for Medicaid process to be finished. She can be discharged from the hospital. She has congestive heart failure, chronic obstructive pulmonary disease, abdominal pain, leukocytosis which resolved, chronic pain, renal insufficiency. We will check her labs. I encouraged her to get out of bed to chair, physical therapy, eat her food and take her medications. John Brown DO MTDD
[2018-02-18] MEDS: Metoprolol Succinate 50 mg XL Tab PO SCH (10:45)
[2018-02-18] MEDS: Pantoprazole 40 mg EC Tab PO SCH (10:45)
[2018-02-18] MEDS: POLYETHYLENE GLYCOL 3350 17 GM/Dose PACKET PO SCH ×2 (10:47→18:00)
[2018-02-18] MEDS: Ranolazine 500 mg Extended Release Tablets PO SCH ×2 (10:47→18:00)
[2018-02-18] MEDS: Lidocaine 5% Patch TD SCH (10:47)
[2018-02-18 11:25] LABS: SQUAMOUS EPITHIAL 5 /hpf (0-5); URINE BILIRUBIN NEGATIVE (NEGATIVE); URINE BLOOD NEGATIVE (NEGATIVE); URINE CLARITY Hazy (Clear); URINE COLOR Yellow (YELLOW); URINE GLUCOSE (UA) NORMAL (Normal); URINE LEUKOCYTE ESTERASE NEG Leu/uL (Negative); URINE PROTEIN 2+ mg/dL (NEGATIVE); URINE UROBILINOGEN NORMAL mg/dL (0.2-1.0)
[2018-02-19] MEDS: Divalproex 125 mg Sprinkle Capsule PO SCH ×3 (00:40→17:31)
[2018-02-19] MEDS: Morphine 4 MG/ML VIAL IVP PRN ×4 (06:19→18:42)
[2018-02-19] MEDS: Tiotropium 18 mcg Cap For Inhalation INH SCH (07:55)
[2018-02-19] MEDS: Fluticasone-Salmeterol 250-50mcg Diskus INH SCH ×2 (07:55→20:02)
[2018-02-19] MEDS: Multivitamin Vitamin B Complex (Nephro-Vite) Tab PO SCH (08:49)
--- NOTE | 2018-02-19 09:50 | PN ---
DATE: 02/19/2018 SUBJECTIVE: I saw her resting comfortably this morning. She slept fairly well last night. Still complains to me, she is having pains here and there, would like some morphine, wants to get out of the hospital. PHYSICAL EXAMINATION: VITAL SIGNS: She has 98.4 temp, 82 pulse, 149/62 blood pressure, 20 respiratory rate, 100% O2 sat on 2 L. HEENT: Head is atraumatic and normocephalic. Throat is moist. NECK: Supple. HEART: Regular rate. LUNGS: Decreased breath sounds, but clear. ABDOMEN: Soft. EXTREMITIES: No edema. To baseline, she gets out of the bed every now and then. MEDICATIONS: She is currently on Advair, Ambien, Anbesol, Apresoline, aspirin, Bactroban, Depakote, Drisdol, Lasix, Lidoderm, MiraLax, morphine, Nephro-Karolyn, Norvasc, Protonix, Ranexa, Spiriva, Toprol, Ultram and Zofran. LABORATORY DATA. I discontinued her fingerstick Accu-Cheks, for the most part they have all been She has 140 sodium, potassium 4.4, BUN 36, creatinine 1.1, much better. Last blood sugar was 152. Calcium is 8.9, total bili is 0.3, AST is 13, ALT is 15, alk phos is 43, total protein is 5.4, white count is 9.7, hemoglobin 9.1, hematocrit 26.6, platelets 237. IMPRESSION: She is here for congestive heart failure, chronic obstructive pulmonary disease, renal insufficiency, abdominal pain. Awaiting for placement for her change in mentation and she is fairly comfortable for herself. Asked for social psychologist and case management for discharging planning. We will stop her blood sugar Accu-Cheks. John Brown DO MTDD
[2018-02-19] MEDS: Lidocaine 5% Patch TD SCH (10:38)
[2018-02-19] MEDS: Metoprolol Succinate 50 mg XL Tab PO SCH (10:41)
[2018-02-19] MEDS: POLYETHYLENE GLYCOL 3350 17 GM/Dose PACKET PO SCH ×2 (10:41→17:34)
[2018-02-19] MEDS: Ranolazine 500 mg Extended Release Tablets PO SCH ×2 (10:42→17:34)
[2018-02-19] MEDS: Pantoprazole 40 mg EC Tab PO SCH (10:42)
[2018-02-20] MEDS: Divalproex 125 mg Sprinkle Capsule PO SCH ×3 (00:58→18:00)
[2018-02-20] MEDS: Morphine 4 MG/ML VIAL IVP PRN ×4 (04:46→18:47)
[2018-02-20] MEDS: Fluticasone-Salmeterol 250-50mcg Diskus INH SCH ×2 (08:19→19:48)
[2018-02-20] MEDS: Tiotropium 18 mcg Cap For Inhalation INH SCH (08:19)
[2018-02-20] MEDS: Ergocalciferol 50,000 Intl Units Cap PO SCH (09:19)
[2018-02-20] MEDS: Metoprolol Succinate 50 mg XL Tab PO SCH (09:20)
[2018-02-20] MEDS: Ranolazine 500 mg Extended Release Tablets PO SCH ×2 (09:21→18:01)
[2018-02-20] MEDS: Pantoprazole 40 mg EC Tab PO SCH (09:22)
[2018-02-20] MEDS: Lidocaine 5% Patch TD SCH (09:22)
[2018-02-20] MEDS: Multivitamin Vitamin B Complex (Nephro-Vite) Tab PO SCH (09:24)
--- NOTE | 2018-02-20 10:26 | PN ---
DATE: SUBJECTIVE: I saw Kathy resting comfortably in bed. She has got a shot of morphine. She was in lot of pain earlier. She is doing better now. She wants to know when she is leaving the hospital, awaiting for Medicaid and social media coordinator to follow up with plan. MEDICATIONS: She is on Advair, Ambien, Anbesol, Apresoline, aspirin, Bactroban, Depakote, Drisdol, Lasix, Lidoderm, MiraLAX, morphine, Nephro-Karolyn, Norvasc, Protonix, Ranexa, Spiriva, Toprol, Ultram, and Zofran. PHYSICAL EXAMINATION: VITAL SIGNS: Temperature 98.1, pulse 70, blood pressure 152/63, respiratory rate 20, O2 sat 95% on room air. HEENT: Head is atraumatic and normocephalic. HEART: Regular rate. LUNGS: Decreased breath sounds, but clear. ABDOMEN: Soft, nontender. Positive bowel sounds. EXTREMITIES: No edema. LABORATORY DATA: Last labs on 02/18/2018, she has 9.7 white count, 9.1 hemoglobin, 26.6 hematocrit with 237 platelets. Sodium 140, potassium 4.4, BUN 36, creatinine 1.1, GFR is 49, last blood sugar was 112, calcium is 8.9, total bili 0.3, AST is 13, ALT is 15, alk phos is 43, total protein is 5.4. ASSESSMENT AND PLAN: the insulin checks. We will continue with treatment and care. She is being seen by Infectious Disease, Psychiatry and Renal, awaiting placement with social media coordinator and case management and Medicaid. She is here for congestive heart failure, chronic obstructive pulmonary disease, renal insufficiency, abdominal pain. John Brown DO MTDD
[2018-02-20] MEDS: POLYETHYLENE GLYCOL 3350 17 GM/Dose PACKET PO SCH ×2 (11:01→18:01)
[2018-02-21] MEDS: Divalproex 125 mg Sprinkle Capsule PO SCH ×4 (00:32→19:33)
[2018-02-21] MEDS: Morphine 4 MG/ML VIAL IVP PRN ×5 (00:32→19:45)
[2018-02-21] MEDS: Multivitamin Vitamin B Complex (Nephro-Vite) Tab PO SCH (08:09)
[2018-02-21] MEDS: Fluticasone-Salmeterol 250-50mcg Diskus INH SCH ×2 (08:24→20:00)
[2018-02-21] MEDS: Tiotropium 18 mcg Cap For Inhalation INH SCH (08:24)
--- NOTE | 2018-02-21 11:01 | PN ---
DATE: SUBJECTIVE: I saw her resting comfortably in bed. She slept fairly well, is a little bit constipated still, she has MiraLax on her list. MEDICATIONS: She also has Advair, Ambien, Anbesol, Apresoline, aspirin, Bactroban cream, Depakote sprinkles, Lasix, Lidoderm, morphine as needed, Nephro-Karolyn, Norvasc, Protonix, Ranexa, Spiriva, Toprol, Ultram and Zofran. LABORATORY DATA: Last labs on 02/18/2018, hemoglobin was 9.1, BUN 36, creatinine 1.1, last blood sugar is 99. ASSESSMENT AND PLAN: Overall, she is stable, waiting for placement and someone take care of her. We will continue with aggressive treatment and care. She has congestive heart failure, chronic obstructive pulmonary disease, renal insufficiency, change in mental status, diabetes, chronic pain and waiting for group social worker and case management help us with discharge plan. John Brown DO MTDD
[2018-02-21] MEDS: Metoprolol Succinate 50 mg XL Tab PO SCH (11:07)
[2018-02-21] MEDS: Pantoprazole 40 mg EC Tab PO SCH (11:08)
[2018-02-21] MEDS: Ranolazine 500 mg Extended Release Tablets PO SCH ×2 (11:08→19:36)
[2018-02-21] MEDS: POLYETHYLENE GLYCOL 3350 17 GM/Dose PACKET PO SCH ×3 (11:09→19:57)
[2018-02-21] MEDS: Lidocaine 5% Patch TD SCH (11:09)
[2018-02-22] MEDS: Divalproex 125 mg Sprinkle Capsule PO SCH ×3 (00:10→18:11)
[2018-02-22] MEDS: Morphine 4 MG/ML VIAL IVP PRN (07:05)
[2018-02-22] MEDS: Multivitamin Vitamin B Complex (Nephro-Vite) Tab PO SCH (08:15)
[2018-02-22] MEDS: Tiotropium 18 mcg Cap For Inhalation INH SCH (08:33)
[2018-02-22] MEDS: Fluticasone-Salmeterol 250-50mcg Diskus INH SCH ×2 (08:33→20:47)
[2018-02-22] MEDS: Pantoprazole 40 mg EC Tab PO SCH (10:12)
[2018-02-22] MEDS: Lidocaine 5% Patch TD SCH (10:13)
[2018-02-22] MEDS: Metoprolol Succinate 50 mg XL Tab PO SCH (10:13)
[2018-02-22] MEDS: Ranolazine 500 mg Extended Release Tablets PO SCH ×2 (10:13→18:11)
--- NOTE | 2018-02-22 11:16 | PN ---
DATE: 02/22/2018 SUBJECTIVE: I saw her in bed this morning. She was yelling that she wants to go home and see her dog and cats, does not want to be here anymore, very upset this morning. MEDICATIONS: She is on Advair, Ambien, Anbesol, Apresoline, aspirin, Bactroban, Depakote, Lasix, Lidoderm, MiraLAX, morphine, Nephro-Karolyn, Norvasc, Protonix, Ranexa, Spiriva, Toprol, Ultram, and Zofran. this morning. PHYSICAL EXAMINATION VITAL SIGNS: She has a 98.3 temp, 69 pulse, 159/65 blood pressure, 20 respiratory rate, 96% O2 saturation on room air. HEENT: Head is atraumatic and normocephalic. HEART: Regular rate. LUNGS: Decreased breath sounds, but clear. ABDOMEN: Soft, nontender. EXTREMITIES: No edema. ASSESSMENT AND PLAN: She is now doing well. She refused labs today. Last labs were on 02/18/2018, but she did okay. Last blood sugar was 99. Still waiting for manager social responsibility and Case Management and insurance company to get her a place to go. Insurance and Medicaid working on treatment and care. Try and get labs again tomorrow. She is here for chronic obstructive pulmonary disease, congestive heart failure, chronic pain, change in mentation, diabetes, renal insufficiency. John Brown DO MTDD
[2018-02-23] MEDS: Morphine 4 MG/ML VIAL IVP PRN ×4 (01:17→18:14)
[2018-02-23] MEDS: Divalproex 125 mg Sprinkle Capsule PO SCH ×3 (01:19→17:00)
[2018-02-23] MEDS: Multivitamin Vitamin B Complex (Nephro-Vite) Tab PO SCH (08:19)
[2018-02-23] MEDS: Fluticasone-Salmeterol 250-50mcg Diskus INH SCH (08:43)
[2018-02-23] MEDS: Lidocaine 5% Patch TD SCH (10:56)
[2018-02-23] MEDS: Metoprolol Succinate 50 mg XL Tab PO SCH (10:57)
[2018-02-23] MEDS: Pantoprazole 40 mg EC Tab PO SCH (10:57)
[2018-02-23] MEDS: Ranolazine 500 mg Extended Release Tablets PO SCH ×2 (10:57→18:09)
[2018-02-23 11:24] LABS: HEMOGLOBIN 10.3 g/dL (11.0-16.0); MEAN CELL VOLUME 91.4 fL (81.0-99.0); MEAN CORPUSCULAR HEMOGLOBIN 30.4 pg (27.0-31.0); MEAN CORPUSCULAR HGB CONC 33.3 g/dL (33.0-37.0); MEAN PLATELET VOLUME 10.2 fL (7.2-11.7); RBC 3.38 Mil/uL (3.80-5.20); RED CELL DISTRIBUTION WIDTH 17.1 % (11.5-14.5); WHITE BLOOD COUNT 9.7 K/uL (4.8-10.8)
--- NOTE | 2018-02-23 11:33 | PN ---
DATE: 02/23/2018 SUBJECTIVE: I saw Kathy resting comfortably in bed this morning. She has makeup on. She tells me she is eating well. She does not take the pain medications unless she needs them. She is wanting to get out of bed everyday and she wants to walk everyday with Physical Therapy, but that is not happening on a daily basis. She is comfortable, in no pain. She is eating well, drinking well, good spirits, and she put makeup on this morning. PHYSICAL EXAMINATION: VITAL SIGNS: Temperature 98.3, pulse 75, blood pressure 133/53, respiratory rate 20, O2 sat on room air 97%. HEENT: Atraumatic, normocephalic. Throat is moist. NECK: Supple. HEART: Regular rate. LUNGS: Decreased breath sounds, but clear to auscultation. ABDOMEN: Soft, nontender. Positive bowel sounds. EXTREMITIES: No edema. She is in good spirits. MEDICATIONS: She is currently on Advair, Ambien, Apresoline, aspirin, Depakote, Lasix, Lidoderm, morphine, Nephro-Karolyn, Norvasc, Protonix, Ranexa, Toprol, Ultram, and Zofran. LABORATORY DATA: Last labs on 02/18/2018 and she is doing well. Last blood sugar was 118. ASSESSMENT AND PLAN: She is being seen by Infectious Disease, Psychiatry, and Renal. She has congestive heart failure, chronic obstructive pulmonary disease, renal insufficiency, abdominal pain and waiting for Medicaid and [employer] and Case Management to help her get to a proper place. John Brown DO MTDD
[2018-02-23 11:54] LABS: ALB/GLOB RATIO 1.2 (1.0-2.1); ALBUMIN 3.6 g/dL (3.5-5.0); CALCIUM 9.1 mg/dl (8.6-10.4)
[2018-02-24] MEDS: Divalproex 125 mg Sprinkle Capsule PO SCH ×3 (00:47→18:47)
[2018-02-24] MEDS: Morphine 4 MG/ML VIAL IVP PRN ×5 (02:19→23:03)
[2018-02-24] MEDS: Fluticasone-Salmeterol 250-50mcg Diskus INH SCH ×2 (09:28→19:51)
[2018-02-24] MEDS: Ranolazine 500 mg Extended Release Tablets PO SCH ×2 (10:30→18:48)
--- NOTE | 2018-02-24 12:57 | PN ---
DATE: SUBJECTIVE: I saw Kathy resting comfortably in bed. She slept well. She is upset that she is still here, she wants to go home, waiting for Medicaid and [employer] to get this organized for safe placement. She is on Advair, Ambien, Apresoline, aspirin, Depakote, Lasix, Lidoderm, morphine, Nephro-Karolyn, Norvasc, Protonix, Ranexa, Toprol, Ultram, and Zofran. PHYSICAL EXAMINATION: VITAL SIGNS: She has 99 temp, 77 pulse, 150/56 blood pressure, 20 respiratory rate, 90% O2 saturation on room air. HEENT: Head is atraumatic and normocephalic. HEART: Regular rate with decreased breath sounds, but clear. ABDOMEN: Soft. EXTREMITIES: No edema. LABORATORY DATA: Last labs on 02/23/2018; white count 9.7, hemoglobin 10.3, hematocrit 30.9, platelets 312. Sodium 144, potassium 4.3, BUN 36, creatinine 1.3, GFR is 40, sugar is 165, calcium 9.1, total bilirubin is 0.6, AST is 33, ALT is 8, alkaline phosphatase 42, total protein 6.7. ASSESSMENT: Congestive heart failure, chronic obstructive pulmonary disease, nonspecific chronic pain. PLAN: Continue with aggressive treatment and care. Await for manager social work and her insurance to get organized. We will get her a safe place to be discharged. John Brown DO MTDJean[facility]
[2018-02-24] MEDS: Pantoprazole 40 mg EC Tab PO SCH (18:47)
[2018-02-24] MEDS: Lidocaine 5% Patch TD SCH (18:48)
[2018-02-24] MEDS: Metoprolol Succinate 50 mg XL Tab PO SCH (18:49)
[2018-02-24] MEDS: Multivitamin Vitamin B Complex (Nephro-Vite) Tab PO SCH (18:57)
[2018-02-25] MEDS: Divalproex 125 mg Sprinkle Capsule PO SCH ×3 (00:24→17:00)
[2018-02-25] MEDS: Morphine 4 MG/ML VIAL IVP PRN ×4 (04:42→22:13)
[2018-02-25] MEDS: Fluticasone-Salmeterol 250-50mcg Diskus INH SCH ×2 (07:36→19:34)
[2018-02-25] MEDS: Multivitamin Vitamin B Complex (Nephro-Vite) Tab PO SCH (08:53)
[2018-02-25] MEDS: Lidocaine 5% Patch TD SCH (11:12)
[2018-02-25] MEDS: Ranolazine 500 mg Extended Release Tablets PO SCH ×2 (11:13→17:26)
[2018-02-25] MEDS: Metoprolol Succinate 50 mg XL Tab PO SCH (11:13)
[2018-02-25] MEDS: Pantoprazole 40 mg EC Tab PO SCH (11:13)
--- NOTE | 2018-02-25 13:36 | PN ---
DATE: 02/25/2018 SUBJECTIVE: She was resting comfortably in bed this morning. She ate well and slept well, but she looked depressed on hard boiled eggs she does not like. MEDICATIONS: She is on Advair, Ambien, Apresoline, aspirin, Depakote, Lasix, Lidoderm, morphine, Nephro-Karolyn, Norvasc, Protonix, Ranexa, Toprol, Ultram, and Zofran. PHYSICAL EXAMINATION: VITAL SIGNS: She has a 98.5 temp, 68 pulse, 138/80 blood pressure, 20 respiratory rate, 95% O2 saturation on room air. HEENT: Head is atraumatic, normocephalic. HEART: Regular rate and rhythm. Decreased breath sounds, but clear. ABDOMEN: Soft. EXTREMITIES: No edema. ASSESSMENT AND PLAN: She does not like the food and heart-healthy diet. We are going to try and change it to a regular diet. She can get 3 eggs and some Mayonnaise. Last labs on the 02/23/2018, she did well. She is being seen by Infectious Disease, Psychiatry, Renal. She is here for congestive heart failure, chronic obstructive pulmonary disease, renal insufficiency, change in mental status, diabetes, and chronic pain. Waiting for guardianship placement with her insurance and Case Management and social media editor. Continue with aggressive treatment and care. John Brown DO
[2018-02-26] MEDS: Morphine 4 MG/ML VIAL IVP PRN ×4 (04:58→19:58)
[2018-02-26] MEDS: Fluticasone-Salmeterol 250-50mcg Diskus INH SCH ×2 (07:16→19:28)
[2018-02-26] MEDS: Multivitamin Vitamin B Complex (Nephro-Vite) Tab PO SCH (08:31)
[2018-02-26] MEDS: Lidocaine 5% Patch TD SCH (09:30)
[2018-02-26] MEDS: Pantoprazole 40 mg EC Tab PO SCH (09:30)
[2018-02-26] MEDS: Divalproex 125 mg Sprinkle Capsule PO SCH ×2 (09:30→17:36)
[2018-02-26] MEDS: Ranolazine 500 mg Extended Release Tablets PO SCH ×2 (09:30→17:36)
[2018-02-26] MEDS: Metoprolol Succinate 50 mg XL Tab PO SCH (09:34)
--- NOTE | 2018-02-26 15:15 | PN ---
DATE: SUBJECTIVE: I saw her resting comfortably in bed. She has makeup on today. She is in good spirits. She is smiling. She wants to know when she is going to go home. She has dog and cats. MEDICATIONS: She is on Advair, Ambien, Apresoline, aspirin, Depakote, Lasix, Lidoderm, morphine, Nephro-Karolyn, Norvasc, Protonix, Ranexa, Toprol, Ultram, and Zofran. PHYSICAL EXAMINATION: VITAL SIGNS: She has 97.6 temp, 86 pulse, 176/65 blood pressure, 18 respiratory rate, 97% O2 sat on 3 liters. HEENT: Head is atraumatic and normocephalic. HEART: Regular rate. LUNGS: Decreased breath sounds, but clear. ABDOMEN: Soft. EXTREMITIES: No edema. Last blood that was on okay. Last blood sugar was 96. I encouraged her to participate in whatever activities they could do, physical therapy, get out of bed to chair, take the medications. Awaiting for social worker palliative care, case management, and insurance to arrange her safe discharge. She was being seen by Infectious Disease, Psychiatry. IMPRESSION: Congestive heart failure, chronic obstructive pulmonary disease, renal insufficiency, chronic pain, debility, change of mentation. John Brown DO MTDD
[2018-02-27] MEDS: Divalproex 125 mg Sprinkle Capsule PO SCH ×3 (01:25→18:00)
[2018-02-27] MEDS: Fluticasone-Salmeterol 250-50mcg Diskus INH SCH ×2 (07:16→20:08)
[2018-02-27] MEDS: Multivitamin Vitamin B Complex (Nephro-Vite) Tab PO SCH (09:00)
[2018-02-27] MEDS: Pantoprazole 40 mg EC Tab PO SCH (09:22)
[2018-02-27] MEDS: Metoprolol Succinate 50 mg XL Tab PO SCH (09:22)
[2018-02-27] MEDS: Ranolazine 500 mg Extended Release Tablets PO SCH ×2 (09:22→18:50)
[2018-02-27] MEDS: Lidocaine 5% Patch TD SCH (09:23)
--- NOTE | 2018-02-27 10:27 | PN ---
DATE: SUBJECTIVE: I saw Kathy resting comfortably in bed. She slept fairly well. [place] that she does not want anymore morphine and wants to take the tramadol, she will be comfortable with that. I said okay, we will try that. She really feels a bit better. She cannot wait to go to any place, but the hospital. She is on Advair, Ambien, alprazolam, aspirin, Depakote, Lasix, Lidoderm, Nephro-Karolyn, Norvasc, Protonix, Ranexa, Toprol, Ultram, and Zofran now. PHYSICAL EXAMINATION: VITAL SIGNS: Temperature 98.3, 71 pulse, 127/79 blood pressure, 20 respiratory rate, 97% O2 saturation. HEENT: Head is atraumatic and normocephalic. HEART: Regular rate. LUNGS: Decreased breath sounds, but clear. ABDOMEN: Soft. Nontender. Positive bowel sounds. EXTREMITIES: No edema. She is comfortable right now with spurs. Last labs on 02/23/2018, ordered tomorrow. ASSESSMENT AND PLAN: I stopped the morphine. Changed to tramadol every 8 hours p.r.n. Discussed with the nurse at length to see if it is congestive heart failure, chronic obstructive pulmonary disease, renal insufficiency, chronic pain, debility. Waiting for Case Management, Assisted Living Home Director, and Insurance to let us know when she can be discharged and where she can go. Keep her as comfortable as possible. John Brown DO MTDD
[2018-02-28] MEDS: Divalproex 125 mg Sprinkle Capsule PO SCH ×3 (01:03→17:33)
[2018-02-28] MEDS: Fluticasone-Salmeterol 250-50mcg Diskus INH SCH ×2 (07:20→20:26)
[2018-02-28] MEDS: Multivitamin Vitamin B Complex (Nephro-Vite) Tab PO SCH (08:24)
[2018-02-28] MEDS: Metoprolol Succinate 50 mg XL Tab PO SCH (10:01)
[2018-02-28] MEDS: Pantoprazole 40 mg EC Tab PO SCH (10:01)
[2018-02-28] MEDS: Ranolazine 500 mg Extended Release Tablets PO SCH ×2 (10:01→17:33)
[2018-02-28] MEDS: Lidocaine 5% Patch TD SCH (10:02)
[2018-02-28 13:56] LABS: HEMOGLOBIN 10.7 g/dL (11.0-16.0); MEAN CELL VOLUME 91.3 fL (81.0-99.0); MEAN CORPUSCULAR HEMOGLOBIN 30.9 pg (27.0-31.0); MEAN CORPUSCULAR HGB CONC 33.8 g/dL (33.0-37.0); MEAN PLATELET VOLUME 9.1 fL (7.2-11.7); RBC 3.47 Mil/uL (3.80-5.20); RED CELL DISTRIBUTION WIDTH 17.3 % (11.5-14.5); WHITE BLOOD COUNT 12.4 K/uL (4.8-10.8)
[2018-02-28 14:17] LABS: ALB/GLOB RATIO 1.5 (1.0-2.1); ALBUMIN 4.3 g/dL (3.5-5.0); ALT/SGPT < 6 U/L (9-52); AST/SGOT 17 U/L (14-36); BLOOD UREA NITROGEN 41 mg/dL (7-17); CALCIUM 9.5 mg/dl (8.6-10.4); GFR AFRICAN-AMERICAN 36; GFR NON-AFRICAN AMERICAN 29
[2018-02-28 15:15] LABS: SQUAMOUS EPITHIAL 3 /hpf (0-5); URINE BILIRUBIN NEGATIVE (NEGATIVE); URINE BLOOD NEGATIVE (NEGATIVE); URINE CLARITY Clear (Clear); URINE COLOR Yellow (YELLOW); URINE GLUCOSE (UA) NORMAL (Normal); URINE LEUKOCYTE ESTERASE NEG Leu/uL (Negative); URINE PROTEIN 2+ mg/dL (NEGATIVE); URINE UROBILINOGEN NORMAL mg/dL (0.2-1.0)
[2018-03-01] MEDS: Divalproex 125 mg Sprinkle Capsule PO SCH ×3 (00:32→16:54)
--- NOTE | 2018-03-01 04:52 | PN ---
DATE: 02/28/2018 SUBJECTIVE: I saw Kathy this morning. She is yelling and screaming and upset with the world today, not happy with everybody or anybody. Wants pain medications, morphine. We are going to keep her off the morphine, just give her tramadol, it could be withdrawn. PHYSICAL EXAMINATION: VITAL SIGNS: She has 98.3, temperature, 81 pulse, 138/62 blood pressure, 92% O2 sat. HEENT: Head is atraumatic normocephalic. CARDIOPULMONARY: Heart is regular rate and rhythm. Decreased breath sounds. LUNGS: Clear. ABDOMEN: Soft. EXTREMITIES: No edema. She is moving very well in bed. MEDICATIONS: She has Advair, Ambien, Apresoline, aspirin, Depakote, Lasix, Lidoderm, Nephro-Karolyn, Norvasc, Protonix, Ranexa, metoprolol, Tylenol, Ultram, Zofran, added Tylenol with Codeine. Psychiatry to take a look at her, Dr. Burdick, hopefully he can help with this. Last blood sugar was 164. She is very mean, angry, yelling, screaming this morning. We are going to keep her off the morphine. She is yelling and screaming and upset with the world, does not want to be here, upset with not getting enough physical therapy. Wants to see her dogs and cats and what she understood the other day; now, does not understand anything. We did the best we can. She has CHF, COPD, renal insufficiency, chronic pain, and we are waiting for case management, home health care social worker and insurance company for her safety. John Brown DO MTDJeaneth
[2018-03-01] MEDS: Fluticasone-Salmeterol 250-50mcg Diskus INH SCH ×2 (07:26→19:34)
--- NOTE | 2018-03-01 07:57 | PN ---
SUBJECTIVE: She is doing better today than yesterday. Yesterday, it was a very bad outbreak with yelling and screaming. She really has to get out of the hospital. She has been here over 80 plus days. Waiting for social work, for case management and insurance to come up with the plan for her. We will have to get her out of the hospital. She is on Advair, Ambien, Apresoline, aspirin, Ativan, Depakote, Lasix, Lidoderm, Nephro-Karolyn, Norvasc, Protonix, Ranexa, Toprol, Tylenol, Ultram and Zofran. PHYSICAL EXAMINATION VITAL SIGNS: She has a 98.2 temperature, 80 pulse, 158/64 blood pressure, 20 respirations, 94% on O2 sat on room air. HEENT: Atraumatic and normocephalic. CARDIOPULMONARY: Regular rate and rhythm. LUNGS: Clear to auscultation. ABDOMEN: Soft. EXTREMITIES: No edema. She is not in any pain at this time. She is only on tramadol. She is requesting for more pain meds or calling pain management. LABORATORY DATA: White count went to 12.4, hemoglobin 10.7, hematocrit 31.7, platelets are 277,000. She has a 141 sodium, potassium 3.7, BUN is 41, creatinine 1.7 most probably from the tramadol. GFR is 29, sugar is 130, calcium 9.5, total bilirubin is 0.5. AST is 17, ALT is less than 6, alk phos is 53, total protein 7.2. Urine is clear. Stool for occult blood is negative. She is being seen by Infectious Disease for elevated white count, Renal for elevated BUN and creatinine and Psychiatry. I am hoping, we get pain management consult to help us with pain management. Every time we put her on tramadol or an NSAID, the BUN and creatinine go up. When I stop it, they come down, but she is in chronic pain, and I can keep her on morphine, ASSESSMENT: Congestive heart failure, chronic obstructive pulmonary disease, renal insufficiency, chronic pain, and debility. I am hoping to find a placement soon. John Brown DO MTD[facility]
[2018-03-01] MEDS: Multivitamin Vitamin B Complex (Nephro-Vite) Tab PO SCH (09:00)
[2018-03-01] MEDS: Pantoprazole 40 mg EC Tab PO SCH (10:18)
[2018-03-01] MEDS: Metoprolol Succinate 50 mg XL Tab PO SCH (10:18)
[2018-03-01] MEDS: Lidocaine 5% Patch TD SCH (10:20)
[2018-03-01] MEDS: Ranolazine 500 mg Extended Release Tablets PO SCH ×2 (10:20→17:02)
[2018-03-02] MEDS: Divalproex 125 mg Sprinkle Capsule PO SCH ×3 (00:52→16:54)
[2018-03-02] MEDS: Fluticasone-Salmeterol 250-50mcg Diskus INH SCH ×2 (07:24→19:21)
[2018-03-02 07:27] LABS: HEMOGLOBIN 9.7 g/dL (11.0-16.0); MEAN CELL VOLUME 91.4 fL (81.0-99.0); MEAN CORPUSCULAR HEMOGLOBIN 31.3 pg (27.0-31.0); MEAN CORPUSCULAR HGB CONC 34.2 g/dL (33.0-37.0); MEAN PLATELET VOLUME 9.2 fL (7.2-11.7); RBC 3.12 Mil/uL (3.80-5.20); RED CELL DISTRIBUTION WIDTH 17.3 % (11.5-14.5); WHITE BLOOD COUNT 7.9 K/uL (4.8-10.8)
[2018-03-02] MEDS: Multivitamin Vitamin B Complex (Nephro-Vite) Tab PO SCH (07:42)
[2018-03-02 08:27] LABS: ALB/GLOB RATIO 1.2 (1.0-2.1); ALBUMIN 3.2 g/dL (3.5-5.0); ALT/SGPT < 6 U/L (9-52); AST/SGOT 14 U/L (14-36); BLOOD UREA NITROGEN 42 mg/dL (7-17); CALCIUM 8.8 mg/dl (8.6-10.4); GFR AFRICAN-AMERICAN 49; GFR NON-AFRICAN AMERICAN 40
[2018-03-02] MEDS: Pantoprazole 40 mg EC Tab PO SCH (10:18)
[2018-03-02] MEDS: Metoprolol Succinate 50 mg XL Tab PO SCH (10:18)
[2018-03-02] MEDS: Ranolazine 500 mg Extended Release Tablets PO SCH ×2 (10:19→16:59)
[2018-03-02] MEDS: Lidocaine 5% Patch TD SCH (10:22)
--- NOTE | 2018-03-02 17:14 | CP.PCM.CON ---
History of Present Illness - History of Present Illness History of Present Illness: This is a 72 year old female with an extensive past medical history, originally admitted 7 weeks ago for dyspnea and chest pressure and more recently had a UTI. She has hx of taking tramadol at home. During this admission CT abd/ pelvis was ordered which showed multiple distended fluid-filled loops of small bowel. She is complainin of right hip pain; she has hx of right THR. Her pain is VAS 6-7/10 and is located over the right hip. There are no specific aggravating or relieving factors. Pain does not radiate. She refused a lidoderm patch this morning. Previous imaging shows lumbar spondylosis and no acute fractures. 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 ear) - RENAL Hx Chronic Kidney Disease: Yes - ENDOCRINE/METABOLIC Hx Diabetes Mellitus Type 2: Yes - HEMATOLOGICAL/ONCOLOGICAL Hx Anemia: Yes (blood transfusion) - INTEGUMENTARY Hx Dermatological Problems: No - MUSCULOSKELETAL/RHEUMATOLOGICAL Hx Arthritis: Yes (both hips,left ankle) - GASTROINTESTINAL Hx Gastrointestinal Disorders: Yes Hx Gastroesophageal Reflux: Yes - GENITOURINARY/GYNECOLOGICAL Hx Genitourinary Disorders: No - PSYCHIATRIC Hx Psychophysiologic Disorder: Yes Hx Schizophrenia: Yes Hx Substance Use: No - SURGICAL HISTORY Hx Surgeries: Yes Hx Coronary Stent: Yes - ANESTHESIA Hx Anesthesia: Yes Hx Anesthesia Reactions: No Hx Malignant Hyperthermia: No Meds Allergies/Adverse Reactions: Allergies Allergy/AdvReac Type Severity Reaction Status Date / Time iodine Allergy Severe ANAPHYLAXIS Verified 12/09/17 00:05 iv dye Allergy Severe ANAPHYLAXIS Uncoded 12/09/17 00:05 - Medications Medications: Current Medications Acetaminophen (Tylenol 325mg Tab) 650 mg PO Q6 PRN PRN Reason: Pain, Mild (1-3) Last Admin: 03/02/18 12:22 Dose: 650 mg Amlodipine Besylate (Norvasc) 10 mg PO QPM [facility] Last Admin: 03/02/18 17:00 Dose: 10 mg Aspirin (Aspirin Chewable) 81 mg PO DAILY [facility] Last Admin: 03/02/18 10:19 Dose: 81 mg Divalproex Sodium (Depakote Sprinkles) 250 mg PO Q8H [facility] Last Admin: 03/02/18 16:54 Dose: 250 mg Furosemide (Lasix) 20 mg PO BID [facility] Last Admin: 03/02/18 17:00 Dose: 20 mg Hydralazine HCl (Apresoline) 100 mg PO Q8 [facility] Last Admin: 03/02/18 13:55 Dose: 100 mg Lidocaine (Lidoderm) 1 ea TD DAILY [facility] Last Admin: 03/02/18 10:22 Dose: Not Given Lorazepam (Ativan) 1 mg PO Q8H PRN PRN Reason: Agitation Last Admin: 03/02/18 12:23 Dose: 1 mg Metoprolol Succinate (Toprol Xl) 50 mg PO DAILY [facility] Last Admin: 03/02/18 10:18 Dose: 50 mg Ondansetron HCl (Zofran Inj) 4 mg IVP Q4H PRN PRN Reason: Nausea/Vomiting Last Admin: 03/02/18 12:23 Dose: 4 mg Pantoprazole Sodium (Protonix Ec Tab) 40 mg PO DAILY [facility] Last Admin: 03/02/18 10:18 Dose: 40 mg Ranolazine (Ranexa) 500 mg PO BID [facility] Last Admin: 03/02/18 16:59 Dose: 500 mg Fluticasone/Salmeterol (Advair Diskus 250/50) 1 puff INH RQ12 [facility] Last Admin: 03/02/18 07:24 Dose: Not Given Tramadol HCl (Ultram) 50 mg PO Q8H PRN PRN Reason: Pain, moderate (4-7) Last Admin: 03/02/18 05:25 Dose: 50 mg Vitamin B Complex/Vit C/Folic Acid (Nephro-Karolyn) 1 tab PO 0800 [facility] Last Admin: 03/02/18 07:42 Dose: 1 tab Zolpidem Tartrate (Ambien) 5 mg PO HS PRN PRN Reason: Insomnia Last Admin: 02/27/18 20:59 Dose: 5 mg Physical Exam - Constitutional Appears: No Acute Distress, Older Than Stated Age - Back Exam Additional comments: limited ROM back negative SLR DP flex 4/5 bilateral LE, sensation intact right hip limited ROM, mild TTP over ASIS Results - Vital Signs Recent Vital Signs: Last Vital Signs Temp 97.8 F 03/02/18 16:34 Pulse 80 03/02/18 16:34 Resp 20 03/02/18 16:34 BP 150/70 03/02/18 17:00 Pulse Ox 98 03/02/18 16:34 - Labs Result Diagrams: 03/02/18 07:13 03/02/18 07:13 Labs: Laboratory Results - last 24 hr 03/02/18 03/02/18 03/02/18 06:46 07:13 07:13 WBC 7.9 RBC 3.12 L Hgb 9.7 L Hct 28.5 L MCV 91.4 MCH 31.3 H MCHC 34.2 RDW 17.3 H Plt Count 305 MPV 9.2 Sodium 143 Potassium 3.0 L Chloride 100 Carbon Dioxide 29 Anion Gap 18 BUN 42 H Creatinine 1.3 H Est GFR ( Amer) 49 Est GFR (Non-Af Amer) 40 POC Glucose (mg/dL) 193 H Random Glucose 154 H Calcium 8.8 Total Bilirubin 0.1 L AST 14 ALT < 6 L Alkaline Phosphatase 37 L D Total Protein 5.8 L Albumin 3.2 L D Globulin 2.6 Albumin/Globulin Ratio 1.2 03/02/18 03/02/18 11:19 17:00 WBC RBC Hgb Hct MCV MCH MCHC RDW Plt Count MPV Sodium Potassium Chloride Carbon Dioxide Anion Gap BUN Creatinine Est GFR ( Amer) Est GFR (Non-Af Amer) POC Glucose (mg/dL) 141 H 173 H Random Glucose Calcium Total Bilirubin AST ALT Alkaline Phosphatase Total Protein Albumin Globulin Albumin/Globulin Ratio Assessment & Plan - Assessment and Plan (Free Text) Assessment: 72yF with extensive medical hx c/o right hip pain Plan: 1. Cont PT, lidoderm patch, and current rx 2. Pt may have Tylenol #3 1 tab po q8h prn severe pain 3. Care as per primary team and psych
[2018-03-03] MEDS: Divalproex 125 mg Sprinkle Capsule PO SCH ×3 (00:13→16:00)
[2018-03-03] MEDS: Fluticasone-Salmeterol 250-50mcg Diskus INH SCH ×2 (08:14→19:45)
--- NOTE | 2018-03-03 08:15 | PN ---
DATE: 03/02/2018 SUBJECTIVE: Patient was seen in bed this morning, very upset as she cannot have her pain meds which she wanted. She was also refusing lab work so it is hard to tell about her kidney function. I can do with the pain medications. I have ordered the pain management to help me about pain meds. I have not seen them yet, hopefully today. She is trying to eat and she just times. MEDICATIONS: She is on Advair, Ambien, Apresoline, aspirin, Ativan, Depakote, Lasix, Lidoderm, Nephro-Karolyn, Norvasc, Protonix, Ranexa, Toprol, Tylenol, Ultram, and Zofran. PHYSICAL EXAMINATION: VITAL SIGNS: She has 98 temperature, 86 pulse, 162/76 blood pressure, 20 respiratory rate, 98% O2 sat on 4 L nasal cannula. HEART: Regular rate. HEENT: Head is atraumatic, normocephalic. LUNGS: Decreased breath sounds bilaterally. ABDOMEN: Soft. EXTREMITIES: No edema. LABORATORY DATA: Last labs on the 28/02/2018, white count went up a little bit. ASSESSMENT AND PLAN: We have orders for Pain Management, Renal, Psychiatry, Infectious Disease. Awaiting case management, director of social work, insurance company to arrange for safe discharge for her. She needs to get out of the hospital has been here over 80 plus days. She has congestive heart failure, chronic obstructive pulmonary disease, chronic pain, renal insufficiency, and acute kidney injury from time to time. John Brown DO MTDD
[2018-03-03 08:24] LABS: HEMOGLOBIN 10.5 g/dL (11.0-16.0); MEAN CELL VOLUME 91.1 fL (81.0-99.0); MEAN CORPUSCULAR HEMOGLOBIN 30.9 pg (27.0-31.0); MEAN CORPUSCULAR HGB CONC 33.9 g/dL (33.0-37.0); RBC 3.41 Mil/uL (3.80-5.20); RED CELL DISTRIBUTION WIDTH 17.4 % (11.5-14.5); WHITE BLOOD COUNT 8.2 K/uL (4.8-10.8)
[2018-03-03 08:42] LABS: ALB/GLOB RATIO 1.3 (1.0-2.1); ALBUMIN 3.4 g/dL (3.5-5.0); CALCIUM 8.9 mg/dl (8.6-10.4)
[2018-03-03] MEDS: Multivitamin Vitamin B Complex (Nephro-Vite) Tab PO SCH (08:42)
[2018-03-03] MEDS: Lidocaine 5% Patch TD SCH (10:23)
[2018-03-03] MEDS: Potassium Chloride 20 mEq ER Tab PO SCH (10:24)
[2018-03-03] MEDS: Pantoprazole 40 mg EC Tab PO SCH (10:24)
[2018-03-03] MEDS: Ranolazine 500 mg Extended Release Tablets PO SCH ×2 (10:24→18:39)
[2018-03-03] MEDS: Metoprolol Succinate 50 mg XL Tab PO SCH (10:24)
--- NOTE | 2018-03-03 13:38 | PN ---
DATE: 03/03/2018 SUBJECTIVE: She is in a lot of pain this morning on the right thigh. She has not been getting out of bed. She is eating okay. She is in very great pain, the staff has been holding her. I put her back on some morphine for a little bit. Pain Management came in, offered codeine. PHYSICAL EXAMINATION: VITAL SIGNS: She has a 98.2 temperature, 93 pulse, 161/76 blood pressure, 20 respiratory rate, 94% O2 sat on nasal cannula. HEENT: Head is atraumatic, normocephalic. GENERAL: She is uncomfortable with the pain. She is still in bed. She has to get out of bed to chair everyday and have physical therapy. HEART: Regular rate. LUNGS: Decreased breath sounds. She has reproducible right-sided rib pain. ABDOMEN: Soft. EXTREMITIES: No edema. MEDICATIONS: She is currently on Advair, Ambien, Apresoline, aspirin, Ativan, Depakote, K-Dur, Lasix, Lidoderm, K-Dur potassium is low, morphine now, Nephro-Karolyn, Norvasc, Protonix, Ranexa, Toprol, Tylenol, Ultram, and Zofran as needed. LABORATORY DATA: She did not allow them to do blood gas today. She has 143 sodium, potassium 3. I put her back on her potassium. BUN 42, creatinine 1.3, GFR is 40, sugar is 107, calcium 8.8, total bilirubin is 0.1, AST is 14, ALT is less than 6, alkaline phosphatase is 37, total protein is 5.8, white count is now 7.9, very good. Hemoglobin 7.7, hematocrit is 20.5, platelets are 305. ASSESSMENT AND PLAN: We are still awaiting for social work instructor, Case Management, and insurance to arrange for safe discharge for her and get physical therapy and be back on board, get out of bed to chair. John Brown DO [facility]
[2018-03-03] MEDS: Albuterol-Ipratrop 3 mg / 0.5 (3 ml) UD INH SCH (19:45)
[2018-03-04] MEDS: Divalproex 125 mg Sprinkle Capsule PO SCH ×3 (00:32→17:49)
[2018-03-04] MEDS: Albuterol-Ipratrop 3 mg / 0.5 (3 ml) UD INH SCH ×4 (01:31→19:42)
[2018-03-04] MEDS: Fluticasone-Salmeterol 250-50mcg Diskus INH SCH ×2 (07:49→19:42)
[2018-03-04] MEDS: Multivitamin Vitamin B Complex (Nephro-Vite) Tab PO SCH (08:15)
[2018-03-04] MEDS: Pantoprazole 40 mg EC Tab PO SCH (10:43)
[2018-03-04] MEDS: Ranolazine 500 mg Extended Release Tablets PO SCH ×2 (10:43→17:55)
[2018-03-04] MEDS: Metoprolol Succinate 50 mg XL Tab PO SCH (10:44)
[2018-03-04] MEDS: Lidocaine 5% Patch TD SCH (10:45)
[2018-03-04] MEDS: Potassium Chloride 20 mEq ER Tab PO SCH (10:45)
--- NOTE | 2018-03-04 13:27 | RAD ---
Chest x-ray two views History: Shortness of breath. Comparison: 01/28/2018 Findings: Diffuse chronic increased interstitial lung markings suggestive for underlying fibrotic changes with diffuse reticulation seen throughout both lungs. Superimposed consolidative changes within the lung bases suggestive for superimposed infiltrate and or effusion. Biapical pleural thickening with upper lobe granulomatous changes. Scattered nodularity throughout both lungs. Tortuous ectatic aorta with calcification at the aortic knob as well as cardiomegaly. Degenerative changes in the spine and shoulders. Impression: Diffuse chronic increased interstitial lung markings suggestive for underlying fibrotic changes with diffuse reticulation seen throughout both lungs. Superimposed consolidative changes within the lung bases suggestive for superimposed infiltrate and or effusion. Biapical pleural thickening with upper lobe granulomatous changes. Scattered nodularity throughout both lungs.
--- NOTE | 2018-03-04 13:30 | CP.PCM.CON ---
History of Present Illness - History of Present Illness History of Present Illness: Pulmonary Evalution, Covering Dr. Gamez The patient was Seen and examined by me at the bedside, Events reviewed 72 Years old Female with PMHx OF Anxiety, Arthritis (L ANKLE; B/L HIP), Back Problems, Bronchitis, CAD, CHF, COPD, CVA, Dementia, Deep Vein Thrombosis, Emphysema, Fractures (Right Hip), HTN, Hypercholesterolemia, Hyperlipidemia, Malignancy (Breast CA left 4 yrs ago, patient in remission, last chemo was 3 years ago), Osteoporosis, Peripheral Edema, Chronic Kidney Disease, Schizophrenia, TIA and Anemia S/P blood transfusion Patient initially presents to ED on 12/09 with complaints of SOB associated with chest discomfort. Denies fever, chills, or any other physical complaints. Pulmonary consult called today for worsening SOB, Stat CXR was done, results reviewed During my interview and exam to the Patient, she is complaining of severe distress, however she is speaking in complete sentences, VSS, Saturating well and not wheezing. Patient alert, awake, she is not any apparent distress Just received a Neb treatment Chest x-ray two views: 03/04/2018 13:21:09 Findings: Diffuse chronic increased interstitial lung markings suggestive for underlying fibrotic changes with diffuse reticulation seen throughout both lungs. Superimposed consolidative changes within the lung bases suggestive for superimposed infiltrate and or effusion. Biapical pleural thickening with upper lobe granulomatous changes. Scattered nodularity throughout both lungs. Tortuous ectatic aorta with calcification at the aortic knob as well as cardiomegaly. Degenerative changes in the spine and shoulders. Impression: Diffuse chronic increased interstitial lung markings suggestive for underlying fibrotic changes with diffuse reticulation seen throughout both lungs. Superimposed consolidative changes within the lung bases suggestive for superimposed infiltrate and or effusion. Biapical pleural thickening with upper lobe granulomatous changes. Scattered nodularity throughout both lungs. Review of Systems - Constitutional Constitutional: absent: Chills, Fatigue, Fever, Frequent Falls - Cardiovascular Cardiovascular: As Per HPI. absent: Chest Pain - Respiratory Respiratory: As Per HPI, Cough, Dyspnea, Dyspnea on Exertion, Wheezing. absent : Snoring - Gastrointestinal Gastrointestinal: As Per HPI. absent: Abdominal Pain, Coffee Ground Emesis, Dysphagia, Excessive Flatus, Nausea, Vomiting - Musculoskeletal Musculoskeletal: Other (Right hip pain). absent: Joint Swelling, Limited Range of Motion, Numbness Past Patient History - Infectious Disease Hx of Infectious Diseases: None - Tetanus Immunizations Tetanus Immunization: Unknown - Past Medical History & Family History Past Medical History?: Yes - Past Social History Smoking Status: Former Smoker - CARDIAC Hx Cardiac Disorders: Yes (CHF) Hx Congestive Heart Failure: Yes Hx Hypercholesterolemia: Yes Hx Hypertension: Yes - PULMONARY Hx Chronic Obstructive Pulmonary Disease (COPD): Yes - NEUROLOGICAL HX Cerebrovascular Accident: Yes - HEENT Hx HEENT Problems: Yes Hx Blind: Yes (R. eye) Hx Deafness: Yes ([place], deaf in R. ear) - RENAL Hx Chronic Kidney Disease: Yes - ENDOCRINE/METABOLIC Hx Diabetes Mellitus Type 2: Yes - HEMATOLOGICAL/ONCOLOGICAL Hx Anemia: Yes (blood transfusion) - INTEGUMENTARY Hx Dermatological Problems: No - MUSCULOSKELETAL/RHEUMATOLOGICAL Hx Arthritis: Yes (both hips,left ankle) - GASTROINTESTINAL Hx Gastrointestinal Disorders: Yes Hx Gastroesophageal Reflux: Yes - GENITOURINARY/GYNECOLOGICAL Hx Genitourinary Disorders: No - PSYCHIATRIC Hx Psychophysiologic Disorder: Yes Hx Schizophrenia: Yes Hx Substance Use: No - SURGICAL HISTORY Hx Surgeries: Yes Hx Coronary Stent: Yes - ANESTHESIA Hx Anesthesia: Yes Hx Anesthesia Reactions: No Hx Malignant Hyperthermia: No Meds Allergies/Adverse Reactions: Allergies Allergy/AdvReac Type Severity Reaction Status Date / Time iodine Allergy Severe ANAPHYLAXIS Verified 12/09/17 00:05 iv dye Allergy Severe ANAPHYLAXIS Uncoded 12/09/17 00:05 - Medications Medications: Current Medications Acetaminophen (Tylenol 325mg Tab) 650 mg PO Q6 PRN PRN Reason: Pain, Mild (1-3) Last Admin: 03/03/18 15:55 Dose: 650 mg Albuterol/Ipratropium (Duoneb 3 Mg/0.5 Mg (3 Ml) Ud) 3 ml INH RQ6 [facility] Last Admin: 03/04/18 07:50 Dose: 3 ml Amlodipine Besylate (Norvasc) 10 mg PO QPM [facility] Last Admin: 03/03/18 18:39 Dose: 10 mg Aspirin (Aspirin Chewable) 81 mg PO DAILY [facility] Last Admin: 03/04/18 10:42 Dose: 81 mg Divalproex Sodium (Depakote Sprinkles) 250 mg PO Q8H [facility] Last Admin: 03/04/18 10:43 Dose: 250 mg Furosemide (Lasix) 20 mg PO BID [facility] Last Admin: 03/04/18 10:45 Dose: 20 mg Hydralazine HCl (Apresoline) 100 mg PO Q8 [facility] Last Admin: 03/04/18 06:02 Dose: 100 mg Lidocaine (Lidoderm) 1 ea TD DAILY [facility] Last Admin: 03/04/18 10:45 Dose: 1 ea Lorazepam (Ativan) 1 mg PO Q8H PRN PRN Reason: Agitation Last Admin: 03/03/18 01:24 Dose: 1 mg Metoprolol Succinate (Toprol Xl) 50 mg PO DAILY [facility] Last Admin: 03/04/18 10:44 Dose: 50 mg Morphine Sulfate (Morphine) 1 mg IVP Q4 PRN PRN Reason: Pain, severe (8-10) Last Admin: 03/04/18 08:45 Dose: 1 mg Ondansetron HCl (Zofran Inj) 4 mg IVP Q4H PRN PRN Reason: Nausea/Vomiting Last Admin: 03/02/18 19:51 Dose: 4 mg Pantoprazole Sodium (Protonix Ec Tab) 40 mg PO DAILY [facility] Last Admin: 03/04/18 10:43 Dose: 40 mg Potassium Chloride (K-Dur 20 Meq Er Tab) 20 meq PO DAILY [facility] Last Admin: 03/04/18 10:45 Dose: 20 meq Ranolazine (Ranexa) 500 mg PO BID [facility] Last Admin: 03/04/18 10:43 Dose: 500 mg Fluticasone/Salmeterol (Advair Diskus 250/50) 1 puff INH RQ12 [facility] Last Admin: 03/04/18 07:49 Dose: 1 puff Tramadol HCl (Ultram) 50 mg PO Q8H PRN PRN Reason: Pain, moderate (4-7) Last Admin: 03/04/18 06:07 Dose: 50 mg Vitamin B Complex/Vit C/Folic Acid (Nephro-Karolyn) 1 tab PO 0800 [facility] Last Admin: 03/04/18 08:15 Dose: 1 tab Zolpidem Tartrate (Ambien) 5 mg PO HS PRN PRN Reason: Insomnia Last Admin: 03/02/18 21:03 Dose: 5 mg Results - Vital Signs Recent Vital Signs: Last Vital Signs Temp 98.6 F 03/04/18 08:52 Pulse 93 H 03/04/18 08:52 Resp 18 03/04/18 08:52 BP 140/65 03/04/18 10:45 Pulse Ox 92 L 03/04/18 08:52 - Labs Result Diagrams: 03/05/18 11:37 03/05/18 11:37 Labs: Laboratory Results - last 24 hr 03/03/18 03/03/18 03/04/18 16:14 21:30 06:39 POC Glucose (mg/dL) 150 H 129 H 103 03/04/18 11:35 POC Glucose (mg/dL) 146 H Assessment & Plan (1) Interstitial lung disease Status: Acute (2) CHF exacerbation Status: Acute (3) COPD exacerbation Status: Acute - Assessment and Plan (Free Text) Assessment: she is very anxious, I explaind to her the CXR results and the need for CT scan for further evaluation and management of her lung condition. I reviewed the rationale, risks, treatment plans and alternatives with the patient. Most of the radiographic finding seems to be old and chronic Agree with continue Diuresis, Stict I&O, Suplemental Oxygne and Advair Diskus 250/50) 1 puff INH RQ12 As per record and Ct scan that was supposed to be done on 12/31 was cancelled.
--- NOTE | 2018-03-04 14:41 | PN ---
DATE: SUBJECTIVE: I saw her this morning. She is telling me she is short of breath, she is on oxygen, she is not sure why, maybe a little bit nervous. PHYSICAL EXAMINATION: VITAL SIGNS: She has a 98.6 temperature, 93 pulse, 140/65 blood pressure, 18 respiratory rate, oxygen level 92% on 4 L. I will call Pulmonary to get their opinion. HEENT: Head is atraumatic, normocephalic. Throat is moist. NECK: Supple. HEART: Regular rate. LUNGS: Cleared to auscultation. Bilateral decreased breath sounds. No wheezes, rhonchi, or rales. ABDOMEN: Soft. EXTREMITIES: No edema at all. MEDICATIONS: She is currently on Advair, Ambien, Apresoline, aspirin, Ativan, Depakote, DuoNeb, potassium, Lasix, Lidoderm, morphine, Nephro-Karolyn, Norvasc, Protonix, Ranexa, Toprol, Tylenol, Ultram, and Zofran. LABORATORY DATA: Last labs were yesterday; she had 143 sodium, potassium 3.2, replaced potassium, BUN 32, creatinine 1.2, good for her. Last blood sugar was 103, calcium is 8.9, total bili is 0.5, AST is 14, ALT is 11, alk phos 43. White count is 8.2, hemoglobin 10.5, hematocrit 31.1, platelets 324. ASSESSMENT AND PLAN: chest x-ray, blood test. I am going to consult Pulmonary for her shortness of breath. I am not sure why she is short of breath. The exam is normal, but the O2 sat is decreased. I will call Nan Brown DO MTDJeaneth
[2018-03-05] MEDS: Divalproex 125 mg Sprinkle Capsule PO SCH ×3 (00:40→17:53)
[2018-03-05] MEDS: Albuterol-Ipratrop 3 mg / 0.5 (3 ml) UD INH SCH ×3 (01:56→20:21)
[2018-03-05] MEDS: Fluticasone-Salmeterol 250-50mcg Diskus INH SCH (07:43)
[2018-03-05] MEDS: Multivitamin Vitamin B Complex (Nephro-Vite) Tab PO SCH (08:47)
[2018-03-05] MEDS: Pantoprazole 40 mg EC Tab PO SCH (09:48)
[2018-03-05] MEDS: Metoprolol Succinate 50 mg XL Tab PO SCH (09:49)
[2018-03-05] MEDS: Potassium Chloride 20 mEq ER Tab PO SCH (09:49)
[2018-03-05] MEDS: Ranolazine 500 mg Extended Release Tablets PO SCH ×2 (09:52→17:53)
[2018-03-05] MEDS: Lidocaine 5% Patch TD SCH (09:57)
[2018-03-05 11:53] LABS: HEMOGLOBIN 10.6 g/dL (11.0-16.0); MEAN CELL VOLUME 91.9 fL (81.0-99.0); MEAN CORPUSCULAR HGB CONC 33.8 g/dL (33.0-37.0); RBC 3.41 Mil/uL (3.80-5.20); RED CELL DISTRIBUTION WIDTH 16.7 % (11.5-14.5); WHITE BLOOD COUNT 9.1 K/uL (4.8-10.8)
[2018-03-05 12:11] LABS: ALB/GLOB RATIO 1.3 (1.0-2.1); ALBUMIN 3.7 g/dL (3.5-5.0); CALCIUM 9.3 mg/dl (8.6-10.4)
[2018-03-05] MEDS: MethylPREDNISolone 40 mg Vial IVP SCH ×2 (13:25→22:08)
--- NOTE | 2018-03-05 16:29 | CP.PCM.PN ---
Subjective - Date & Time of Evaluation Date of Evaluation: 03/05/18 Time of Evaluation: 09:20 - Subjective Subjective: Reason for Consult - SOB Patient admitted on 12/08 for chest pain and SOB. Patient has complex psychiatric history, coupled with bronchitis, CAD, CHF, COPD, breast cancer, CKD , TIA and DVT. On 12/09, echocardiogram showed left ventricular systolic dysfunction with 30-35% EF. More recently on 03/04, Dr. Brown consulted our service due to worsening SOB. Most recent CXR shows fibrotic changes throughout both lungs with superimposed consolidative changes in the B/L lung bases - effusion vs. infiltrate. Patient markedly agitated during the encounter stating "I cannot breathe." Patient saturating low at 91% on nasal cannula. Patient adamantly refusing CT scan of the chest, due to extreme anxiety. Assessment/Plan Rule out Pneumonia Patient refusing further CT scans due to anxiety, but saturation is low and crackles auscultated at bilateral lung bases. Patient currently afebrile with no white count. Will obtain procalcitonin. ProBNP COPD Because of possible pneumonia, discontinued Advair and started Solumedrol 40mg IV q8H. Objective - Vital Signs/Intake and Output Vital Signs (last 24 hours): Temp Pulse Resp BP Pulse Ox 98.7 F 95 H 20 144/77 94 L 03/04/18 23:50 03/05/18 08:14 03/05/18 08:14 03/05/18 09:52 03/05/18 08:45 - Medications Medications: Current Medications Acetaminophen (Tylenol 325mg Tab) 650 mg PO Q6 PRN PRN Reason: Pain, Mild (1-3) Last Admin: 03/05/18 01:38 Dose: 650 mg Albuterol/Ipratropium (Duoneb 3 Mg/0.5 Mg (3 Ml) Ud) 3 ml INH RQ6 [facility] Last Admin: 03/05/18 07:43 Dose: 3 ml Amlodipine Besylate (Norvasc) 10 mg PO QPM [facility] Last Admin: 03/04/18 17:39 Dose: 10 mg Aspirin (Aspirin Chewable) 81 mg PO DAILY [facility] Last Admin: 03/05/18 09:50 Dose: 81 mg Divalproex Sodium (Depakote Sprinkles) 250 mg PO Q8H [facility] Last Admin: 03/05/18 08:47 Dose: 250 mg Furosemide (Lasix) 20 mg PO BID [facility] Last Admin: 03/05/18 10:06 Dose: Not Given Hydralazine HCl (Apresoline) 100 mg PO Q8 [facility] Last Admin: 03/05/18 13:33 Dose: 100 mg Lidocaine (Lidoderm) 1 ea TD DAILY [facility] Last Admin: 03/05/18 09:57 Dose: 1 ea Lorazepam (Ativan) 1 mg PO Q8H PRN PRN Reason: Agitation Last Admin: 03/03/18 01:24 Dose: 1 mg Methylprednisolone (Solu-Medrol) 40 mg IVP Q8 [facility] Last Admin: 03/05/18 13:25 Dose: 40 mg Metoprolol Succinate (Toprol Xl) 50 mg PO DAILY [facility] Last Admin: 03/05/18 09:49 Dose: 50 mg Montelukast Sodium (Singulair) 10 mg PO DAILY [facility] Last Admin: 03/05/18 10:00 Dose: Not Given Morphine Sulfate (Morphine) 1 mg IVP Q4 PRN PRN Reason: Pain, severe (8-10) Last Admin: 03/05/18 13:25 Dose: 1 mg Ondansetron HCl (Zofran Inj) 4 mg IVP Q4H PRN PRN Reason: Nausea/Vomiting Last Admin: 03/04/18 15:49 Dose: 4 mg Pantoprazole Sodium (Protonix Ec Tab) 40 mg PO DAILY [facility] Last Admin: 03/05/18 09:48 Dose: 40 mg Potassium Chloride (K-Dur 20 Meq Er Tab) 20 meq PO DAILY [facility] Last Admin: 03/05/18 09:49 Dose: 20 meq Ranolazine (Ranexa) 500 mg PO BID [facility] Last Admin: 03/05/18 09:52 Dose: 500 mg Tramadol HCl (Ultram) 50 mg PO Q8H PRN PRN Reason: Pain, moderate (4-7) Last Admin: 03/05/18 04:39 Dose: 50 mg Vitamin B Complex/Vit C/Folic Acid (Nephro-Karolyn) 1 tab PO 0800 [facility] Last Admin: 03/05/18 08:47 Dose: 1 tab Zolpidem Tartrate (Ambien) 5 mg PO HS PRN PRN Reason: Insomnia Last Admin: 03/02/18 21:03 Dose: 5 mg - Labs Labs: 03/05/18 11:37 03/05/18 11:37 PT 13.6 SECONDS (9.7-12.2) H 01/15/18 07:10 INR 1.2 01/15/18 07:10 APTT 34 SECONDS (21-34) 12/09/17 00:22
--- NOTE | 2018-03-05 16:43 | CT ---
PROCEDURE: CT chest 03/05/2018 HISTORY: Pulmonary fibrosis COMPARISON: Comparison made with CT scan abdomen pelvis 01/29/2018 which imaged both lung bases. Comparison also made with CT scan chest dated 09/05/2016. TECHNIQUE: Contiguous axial images were obtained through the chest without intravenous contrast enhancement. Sagittal and coronal reconstructions were performed. Radiation dose (DLP): 202.59 mGy-cm. This CT exam was performed using one or more of the following dose reduction techniques: Automated exposure control, adjustment of the mA and/or kV according to patient size, and/or use of iterative reconstruction technique. . . FINDINGS: LUNGS: Centrilobular, panlobular and paraseptal emphysematous changes upper lobe predominance. . There has been progression of fibrosis, septal thickening and honeycombing changes throughout the upper lower lobes. Bilateral effusions are present with bibasilar atelectasis/ consolidation change. MEDIASTINUM: Heart is mildly enlarged. No significant pericardial effusion. Ascending thoracic aorta measures approximately 3.1 cm and descending thoracic aorta measures approximately 2.2 cm. Pulmonary trunk measures approximately 2.9 cm. Multiple mediastinal lymph nodes the largest in the right precarinal region measuring approximately 19.8 mm. Evaluation for hilar adenopathy is limited due to the lack of circulating intravenous contrast material. Central airways are midline and patent. No large central endoluminal lesions are identified. There is a small hiatal hernia. PLEURA: As above. No pneumothorax BONES: Multilevel degenerative spondylosis of the thoracic spine. Minor chronic anterior wedging of few upper/ mid thoracic segments. Moderate chronic anterior wedging of the L1 segment. Note made of a small calcification either along the posterior annulus or locally within the posterior longitudinal ligament at T2-T3 level which encroaches into the anterior margin of the spinal canal, possibly resulting compression of the spinal cord. Clinical correlation recommended. Followup MRI could be performed if indicated. UPPER ABDOMEN: Multiple small calcifications seen within renal hilar regions likely vascular in origin. OTHER FINDINGS: There is a small nodule seen in the right lobe thyroid gland. Followup thyroid ultrasound recommended. IMPRESSION: Centrilobular, panlobular and paraseptal emphysematous changes upper lobe predominance. . There has been progression of fibrosis, septal thickening and honeycombing changes throughout the upper lower lobes. Bilateral effusions are present with bibasilar atelectasis/ consolidation change. Enlarged mediastinal lymph node Small nodule right lobe thyroid gland. See above discussion for additional details, findings and recommendations.
--- NOTE | 2018-03-05 21:04 | PN ---
DATE: SUBJECTIVE: The patient is resting out of bed to chair with IV Solu-Medrol. She is short of breath, a little bit better. She tells me she is getting all these because of emphysema and lot of smoking. PHYSICAL EXAMINATION: VITAL SIGNS: She has a 97 temperature, 95 pulse, 146/74 blood pressure, 20 respiratory rate, O2 sat on nasal cannula is 94. HEENT: Head is atraumatic, normocephalic. HEART: Regular rate. LUNGS: Decreased breath sound but clear. ABDOMEN: Soft. EXTREMITIES: No edema. ASSESSMENT AND PLAN: Solu-Medrol 40 every 8 hours added by Pulmonary. She had a CAT scan of the chest showing lymphadenopathy and epidermatitis changes with few progressive changes and treatment as per Pulmonary. She had chronic obstructive pulmonary disease issue with worsening shortness of breath. I will continue with aggressive treatment and care as per Pulmonary. Check renal labs tomorrow. Aspirin, pain meds, Solu-Medrol. John Brown DO MTDD
[2018-03-06] MEDS: Divalproex 125 mg Sprinkle Capsule PO SCH ×4 (02:00→17:51)
[2018-03-06] MEDS: Albuterol-Ipratrop 3 mg / 0.5 (3 ml) UD INH SCH ×3 (02:11→13:16)
[2018-03-06] MEDS: MethylPREDNISolone 40 mg Vial IVP SCH ×3 (05:48→21:35)
[2018-03-06 07:32] LABS: HEMOGLOBIN 10.2 g/dL (11.0-16.0); MEAN CELL VOLUME 91.3 fL (81.0-99.0); MEAN CORPUSCULAR HEMOGLOBIN 30.1 pg (27.0-31.0); RBC 3.38 Mil/uL (3.80-5.20); RED CELL DISTRIBUTION WIDTH 16.5 % (11.5-14.5); WHITE BLOOD COUNT 6.5 K/uL (4.8-10.8)
[2018-03-06] MEDS: Multivitamin Vitamin B Complex (Nephro-Vite) Tab PO SCH (08:25)
--- NOTE | 2018-03-06 08:30 | PN ---
DATE: SUBJECTIVE: She is sleeping quite soundly at this time, no respiratory issues. No pain. She woke up very easily. MEDICATIONS: She is on Ambien, Apresoline, aspirin, Ativan, Depakote, DuoNeb, potassium, Lasix, Lidoderm, morphine, Nephro-Karolyn, Norvasc, Protonix, Ranexa, Singulair, Solu-Medrol at 40 IV every 8 hours, Toprol, Tylenol, Ultram, and Zofran. I just think she is starting to breathe better. PHYSICAL EXAMINATION: VITAL SIGNS: She has a 97.8 temperature, 86 pulse, 144/70 blood pressure, 18 respiratory rate, 94% O2 sat on 5 L nasal cannula. HEENT: Head is atraumatic, normocephalic. HEART: Regular rate. LUNGS: Decreased breath sounds but clear. No wheezes, rhonchi, or rales at this time. ABDOMEN: Soft. EXTREMITIES: No edema. She tells me she feels weaker and she wants to have physical therapy again. I have re-ordered physical therapy. She is being seen by Pulmonology, hopefully, I will decrease the Solu-Medrol from 40 to 30 every 8 hours, do it later. LABORATORY DATA: Labs are pending this morning. Yesterday's labs showed 9.1 white count, 10.6 hemoglobin, 319 platelets, 145 sodium, potassium 4.3, BUN 37, creatinine 1.8, GFR is 40, sugar was 127, calcium 9.3, total bili is 0.5, AST is 14, ALT is 10, alk phos 49, total protein is 6.6. ASSESSMENT AND PLAN: Continue with aggressive treatment and care. Try and get labs tomorrow so let us do it. Hopefully, we will decrease the Solu-Medrol today , get physical therapy involved again to see if they give her more therapies while waiting for social media marketing manager, case management, and insurance company to arrange for safe discharge for her. Chronic obstructive pulmonary disease, congestive heart failure, renal insufficiency, and chronic pain. John Brown DO MTDD
[2018-03-06 09:18] LABS: ALB/GLOB RATIO 1.3 (1.0-2.1); ALBUMIN 3.5 g/dL (3.5-5.0); ALT/SGPT < 6 U/L (9-52); AST/SGOT 37 U/L (14-36); BLOOD UREA NITROGEN 51 mg/dL (7-17); CALCIUM 9.4 mg/dl (8.6-10.4); GFR AFRICAN-AMERICAN 41; GFR NON-AFRICAN AMERICAN 34
[2018-03-06] MEDS: Metoprolol Succinate 50 mg XL Tab PO SCH (10:07)
[2018-03-06] MEDS: Ranolazine 500 mg Extended Release Tablets PO SCH ×2 (10:07→17:51)
[2018-03-06] MEDS: Pantoprazole 40 mg EC Tab PO SCH (10:07)
[2018-03-06] MEDS: Potassium Chloride 20 mEq ER Tab PO SCH (10:08)
[2018-03-06] MEDS: Lidocaine 5% Patch TD SCH (10:08)
--- NOTE | 2018-03-06 14:48 | CP.PCM.PN ---
<Ignacia Hunter - Last Filed: 03/06/18 14:45> Subjective - Date & Time of Evaluation Date of Evaluation: 03/06/18 Time of Evaluation: 13:25 - Subjective Subjective: Pulmonology Progress Note- Dr. Gamez's service Patient seen and examined in no acute distress. Patient states that she feels much better today. She is anticipating going home before the end of the week because of her upcoming birthday. Objective - Vital Signs/Intake and Output Vital Signs (last 24 hours): Temp Pulse Resp BP Pulse Ox 98.4 F 97 H 20 150/77 98 03/06/18 08:31 03/06/18 13:28 03/06/18 08:31 03/06/18 13:28 03/06/18 08:31 Intake and Output: 03/06/18 03/06/18 06:59 18:59 Intake Total 720 400 Balance 720 400 - Medications Medications: Current Medications Acetaminophen (Tylenol 325mg Tab) 650 mg PO Q6 PRN PRN Reason: Pain, Mild (1-3) Last Admin: 03/05/18 01:38 Dose: 650 mg Albuterol/Ipratropium (Duoneb 3 Mg/0.5 Mg (3 Ml) Ud) 3 ml INH RQ6 [facility] Last Admin: 03/06/18 13:16 Dose: Not Given Amlodipine Besylate (Norvasc) 10 mg PO QPM [facility] Last Admin: 03/05/18 17:53 Dose: 10 mg Aspirin (Aspirin Chewable) 81 mg PO DAILY [facility] Last Admin: 03/06/18 10:07 Dose: 81 mg Divalproex Sodium (Depakote Sprinkles) 250 mg PO Q8H [facility] Last Admin: 03/06/18 08:25 Dose: 250 mg Furosemide (Lasix) 20 mg PO BID [facility] Last Admin: 03/06/18 10:06 Dose: 20 mg Hydralazine HCl (Apresoline) 100 mg PO Q8 [facility] Last Admin: 03/06/18 13:28 Dose: 100 mg Lidocaine (Lidoderm) 1 ea TD DAILY [facility] Last Admin: 03/06/18 10:08 Dose: Not Given Lorazepam (Ativan) 1 mg PO Q8H PRN PRN Reason: Agitation Last Admin: 03/03/18 01:24 Dose: 1 mg Methylprednisolone (Solu-Medrol) 40 mg IVP Q8 [facility] Last Admin: 03/06/18 13:28 Dose: 40 mg Metoprolol Succinate (Toprol Xl) 50 mg PO DAILY [facility] Last Admin: 03/06/18 10:07 Dose: 50 mg Montelukast Sodium (Singulair) 10 mg PO DAILY [facility] Last Admin: 03/06/18 10:07 Dose: 10 mg Morphine Sulfate (Morphine) 1 mg IVP Q4 PRN PRN Reason: Pain, severe (8-10) Last Admin: 03/06/18 13:28 Dose: 1 mg Ondansetron HCl (Zofran Inj) 4 mg IVP Q4H PRN PRN Reason: Nausea/Vomiting Last Admin: 03/04/18 15:49 Dose: 4 mg Pantoprazole Sodium (Protonix Ec Tab) 40 mg PO DAILY [facility] Last Admin: 03/06/18 10:07 Dose: 40 mg Potassium Chloride (K-Dur 20 Meq Er Tab) 20 meq PO DAILY [facility] Last Admin: 03/06/18 10:08 Dose: 20 meq Ranolazine (Ranexa) 500 mg PO BID [facility] Last Admin: 03/06/18 10:07 Dose: 500 mg Tramadol HCl (Ultram) 50 mg PO Q8H PRN PRN Reason: Pain, moderate (4-7) Last Admin: 03/05/18 04:39 Dose: 50 mg Vitamin B Complex/Vit C/Folic Acid (Nephro-Karolyn) 1 tab PO 0800 [facility] Last Admin: 03/06/18 08:25 Dose: 1 tab Zolpidem Tartrate (Ambien) 5 mg PO HS PRN PRN Reason: Insomnia Last Admin: 03/05/18 22:07 Dose: 5 mg - Labs Labs: 03/06/18 07:18 03/06/18 09:01 PT 13.6 SECONDS (9.7-12.2) H 01/15/18 07:10 INR 1.2 01/15/18 07:10 APTT 34 SECONDS (21-34) 12/09/17 00:22 - Constitutional Appears: Non-toxic - Head Exam Head Exam: ATRAUMATIC - Eye Exam Eye Exam: EOMI Pupil Exam: NORMAL ACCOMODATION - Neck Exam Neck Exam: Full ROM - Respiratory Exam Respiratory Exam: NORMAL BREATHING PATTERN. absent: Wheezes - Cardiovascular Exam Cardiovascular Exam: +S1, +S2 - GI/Abdominal Exam GI & Abdominal Exam: Soft - Extremities Exam Extremities Exam: Full ROM - Neurological Exam Neurological Exam: Alert, Awake - Psychiatric Exam Psychiatric exam: Normal Affect, Normal Mood - Skin Skin Exam: Normal Color, Warm Assessment and Plan (1) Dyspnea Assessment & Plan: Improving 6/ Chest CT- Centrilobular, panlobular and paraseptal emphysematous changes upper lobe predominance. Progression of fibrosis, septal thickening and honeycombing changes throughout the lobes. Bilateral effusions present with bibasilar atelectasis vs consolidative changes. Patient currently afebrile, no leukocytosis. Procalcitonin 0.09 Echo - 34%; ProBNP 17093 Because one cannot rule out pneumonia, discontinued Advair (as this can further exacerbate symptoms) and started Solumedrol 40mg IV q8H. Cont DuoneXi hernandez Solumedrol. Cont to monitor Status: Acute <Naseem Gamez - Last Filed: 03/06/18 16:46> Objective - Vital Signs/Intake and Output Vital Signs (last 24 hours): Temp Pulse Resp BP Pulse Ox 98.4 F 97 H 20 150/77 98 03/06/18 08:31 03/06/18 13:28 03/06/18 08:31 03/06/18 13:28 03/06/18 08:31 Intake and Output: 03/06/18 03/06/18 06:59 18:59 Intake Total 720 400 Balance 720 400 - Medications Medications: Current Medications Acetaminophen (Tylenol 325mg Tab) 650 mg PO Q6 PRN PRN Reason: Pain, Mild (1-3) Last Admin: 03/05/18 01:38 Dose: 650 mg Albuterol/Ipratropium (Duoneb 3 Mg/0.5 Mg (3 Ml) Ud) 3 ml INH RQ6 [facility] Last Admin: 03/06/18 13:16 Dose: Not Given Amlodipine Besylate (Norvasc) 10 mg PO QPM [facility] Last Admin: 03/05/18 17:53 Dose: 10 mg Aspirin (Aspirin Chewable) 81 mg PO DAILY [facility] Last Admin: 03/06/18 10:07 Dose: 81 mg Divalproex Sodium (Depakote Sprinkles) 250 mg PO Q8H [facility] Last Admin: 03/06/18 08:25 Dose: 250 mg Furosemide (Lasix) 20 mg PO BID [facility] Last Admin: 03/06/18 10:06 Dose: 20 mg Hydralazine HCl (Apresoline) 100 mg PO Q8 [facility] Last Admin: 03/06/18 13:28 Dose: 100 mg Lidocaine (Lidoderm) 1 ea TD DAILY [facility] Last Admin: 03/06/18 10:08 Dose: Not Given Lorazepam (Ativan) 1 mg PO Q8H PRN PRN Reason: Agitation Last Admin: 03/03/18 01:24 Dose: 1 mg Methylprednisolone (Solu-Medrol) 40 mg IVP Q8 [facility] Last Admin: 03/06/18 13:28 Dose: 40 mg Metoprolol Succinate (Toprol Xl) 50 mg PO DAILY [facility] Last Admin: 03/06/18 10:07 Dose: 50 mg Montelukast Sodium (Singulair) 10 mg PO DAILY [facility] Last Admin: 03/06/18 10:07 Dose: 10 mg Morphine Sulfate (Morphine) 1 mg IVP Q4 PRN PRN Reason: Pain, severe (8-10) Last Admin: 03/06/18 13:28 Dose: 1 mg Ondansetron HCl (Zofran Inj) 4 mg IVP Q4H PRN PRN Reason: Nausea/Vomiting Last Admin: 03/04/18 15:49 Dose: 4 mg Pantoprazole Sodium (Protonix Ec Tab) 40 mg PO DAILY [facility] Last Admin: 03/06/18 10:07 Dose: 40 mg Potassium Chloride (K-Dur 20 Meq Er Tab) 20 meq PO DAILY [facility] Last Admin: 03/06/18 10:08 Dose: 20 meq Ranolazine (Ranexa) 500 mg PO BID [facility] Last Admin: 03/06/18 10:07 Dose: 500 mg Tramadol HCl (Ultram) 50 mg PO Q8H PRN PRN Reason: Pain, moderate (4-7) Last Admin: 03/05/18 04:39 Dose: 50 mg Vitamin B Complex/Vit C/Folic Acid (Nephro-Karolyn) 1 tab PO 0800 [facility] Last Admin: 03/06/18 08:25 Dose: 1 tab Zolpidem Tartrate (Ambien) 5 mg PO HS PRN PRN Reason: Insomnia Last Admin: 03/05/18 22:07 Dose: 5 mg - Labs Labs: 03/06/18 07:18 03/06/18 09:01 PT 13.6 SECONDS (9.7-12.2) H 01/15/18 07:10 INR 1.2 01/15/18 07:10 APTT 34 SECONDS (21-34) 12/09/17 00:22 Attending/Attestation - Attestation I have personally seen and examined this patient.: Yes I have fully participated in the care of the patient.: Yes I have reviewed all pertinent clinical information, including history, physical exam and plan: Yes Notes (Text): 03/06/18 16:45 patient seen and examined. Patient states breathing much improved Started on IV steroids yesterday Continue nebulizer treatment Continue Lasix Follow-up chest x-ray
[2018-03-06] MEDS: Morphine 4 MG/ML VIAL IVP PRN (18:03)
[2018-03-07] MEDS: Divalproex 125 mg Sprinkle Capsule PO SCH ×3 (01:09→17:40)
[2018-03-07] MEDS: Albuterol-Ipratrop 3 mg / 0.5 (3 ml) UD INH SCH ×5 (01:14→19:38)
[2018-03-07] MEDS: Morphine 4 MG/ML VIAL IVP PRN ×2 (03:30→07:57)
[2018-03-07] MEDS: MethylPREDNISolone 40 mg Vial IVP SCH ×3 (06:10→21:18)
[2018-03-07 07:37] LABS: HEMOGLOBIN 10.2 g/dL (11.0-16.0); MEAN CELL VOLUME 91.5 fL (81.0-99.0); MEAN CORPUSCULAR HEMOGLOBIN 30.2 pg (27.0-31.0); MEAN PLATELET VOLUME 9.1 fL (7.2-11.7); RBC 3.38 Mil/uL (3.80-5.20); RED CELL DISTRIBUTION WIDTH 16.3 % (11.5-14.5); WHITE BLOOD COUNT 12.3 K/uL (4.8-10.8)
[2018-03-07 07:51] LABS: ALB/GLOB RATIO 1.5 (1.0-2.1); ALBUMIN 3.7 g/dL (3.5-5.0); ALT/SGPT < 6 U/L (9-52); AST/SGOT 16 U/L (14-36); BLOOD UREA NITROGEN 62 mg/dL (7-17); CALCIUM 9.6 mg/dl (8.6-10.4); GFR AFRICAN-AMERICAN 41; GFR NON-AFRICAN AMERICAN 34
[2018-03-07] MEDS: Multivitamin Vitamin B Complex (Nephro-Vite) Tab PO SCH (08:00)
--- NOTE | 2018-03-07 09:28 | RAD ---
HISTORY: dyspnea COMPARISON: Chest radiograph dated 03/04/2018. FINDINGS: LUNGS: Stable chronic prominence of the bilateral interstitial markings with superimposed pulmonary vascular congestion. Bibasilar atelectasis. PLEURA: Small bilateral pleural effusions. No pneumothorax apparent. CARDIOVASCULAR: Atherosclerotic aortic calcifications. Cardiomediastinal silhouette stably enlarged. OSSEOUS STRUCTURES: Unchanged. VISUALIZED UPPER ABDOMEN: Normal. OTHER FINDINGS: None. IMPRESSION: Stable chronic prominence of the bilateral interstitial markings with superimposed pulmonary vascular congestion and small bilateral pleural effusions, without significant change.
--- NOTE | 2018-03-07 09:33 | CP.PCM.PN ---
<Ignacia Hunter - Last Filed: 03/07/18 15:16> Subjective - Date & Time of Evaluation Date of Evaluation: 03/07/18 Time of Evaluation: 15:10 - Subjective Subjective: Pulmonology Progress Note- Dr. Gamez's service Patient seen and examined . Patient resting bedside. A ROS was not obtained at this time as patient was fast asleep. No significant clinical events reported overnight per nursing; however, patient does have some "outbursts" from time to time. Objective - Vital Signs/Intake and Output Vital Signs (last 24 hours): Temp Pulse Resp BP Pulse Ox 98 F 91 H 20 152/69 H 96 03/07/18 07:00 03/07/18 07:00 03/07/18 07:00 03/07/18 07:00 03/07/18 07:00 Intake and Output: 03/07/18 03/07/18 06:59 18:59 Intake Total 740 Balance 740 - Medications Medications: Current Medications Acetaminophen (Tylenol 325mg Tab) 650 mg PO Q6 PRN PRN Reason: Pain, Mild (1-3) Last Admin: 03/05/18 01:38 Dose: 650 mg Albuterol/Ipratropium (Duoneb 3 Mg/0.5 Mg (3 Ml) Ud) 3 ml INH RQ6 [facility] Last Admin: 03/07/18 06:36 Dose: 3 ml Amlodipine Besylate (Norvasc) 10 mg PO QPM [facility] Last Admin: 03/06/18 17:51 Dose: 10 mg Aspirin (Aspirin Chewable) 81 mg PO DAILY [facility] Last Admin: 03/06/18 10:07 Dose: 81 mg Divalproex Sodium (Depakote Sprinkles) 250 mg PO Q8H [facility] Last Admin: 03/07/18 01:09 Dose: 250 mg Furosemide (Lasix) 20 mg PO BID [facility] Last Admin: 03/06/18 17:55 Dose: 20 mg Hydralazine HCl (Apresoline) 100 mg PO Q8 [facility] Last Admin: 03/07/18 06:10 Dose: 100 mg Lidocaine (Lidoderm) 1 ea TD DAILY [facility] Last Admin: 03/06/18 10:08 Dose: Not Given Lorazepam (Ativan) 1 mg PO Q8H PRN PRN Reason: Agitation Last Admin: 03/03/18 01:24 Dose: 1 mg Methylprednisolone (Solu-Medrol) 30 mg IVP Q8 [facility] Metoprolol Succinate (Toprol Xl) 50 mg PO DAILY [facility] Last Admin: 03/06/18 10:07 Dose: 50 mg Montelukast Sodium (Singulair) 10 mg PO DAILY [facility] Last Admin: 03/06/18 10:07 Dose: 10 mg Morphine Sulfate (Morphine) 1 mg IVP Q4 PRN PRN Reason: Pain, severe (8-10) Last Admin: 03/07/18 07:57 Dose: 1 mg Ondansetron HCl (Zofran Inj) 4 mg IVP Q4H PRN PRN Reason: Nausea/Vomiting Last Admin: 03/06/18 19:59 Dose: 4 mg Pantoprazole Sodium (Protonix Ec Tab) 40 mg PO DAILY [facility] Last Admin: 03/06/18 10:07 Dose: 40 mg Potassium Chloride (K-Dur 20 Meq Er Tab) 20 meq PO DAILY [facility] Last Admin: 03/06/18 10:08 Dose: 20 meq Ranolazine (Ranexa) 500 mg PO BID [facility] Last Admin: 03/06/18 17:51 Dose: 500 mg Tramadol HCl (Ultram) 50 mg PO Q8H PRN PRN Reason: Pain, moderate (4-7) Last Admin: 03/05/18 04:39 Dose: 50 mg Vitamin B Complex/Vit C/Folic Acid (Nephro-Karolyn) 1 tab PO 0800 [facility] Last Admin: 03/07/18 08:00 Dose: 1 tab Zolpidem Tartrate (Ambien) 5 mg PO HS PRN PRN Reason: Insomnia Last Admin: 03/05/18 22:07 Dose: 5 mg - Labs Labs: 03/07/18 07:23 03/07/18 07:23 PT 13.6 SECONDS (9.7-12.2) H 01/15/18 07:10 INR 1.2 01/15/18 07:10 APTT 34 SECONDS (21-34) 12/09/17 00:22 - Constitutional Appears: Non-toxic, No Acute Distress - Head Exam Head Exam: ATRAUMATIC, NORMAL INSPECTION - Respiratory Exam Respiratory Exam: NORMAL BREATHING PATTERN - Skin Skin Exam: Normal Color Assessment and Plan (1) Dyspnea Status: Acute - Assessment and Plan (Free Text) Assessment: Improving CXR today- No significant changes in comparison to initial imaging performed. 03/[address]- Centrilobular, panlobular and paraseptal emphysematous changes upper lobe predominance. Progression of fibrosis, septal thickening and honeycombing changes throughout the lobes. Bilateral effusions present with bibasilar atelectasis vs consolidative changes. Patient currently afebrile, no leukocytosis. Procalcitonin 0.09 Echo - 34%; ProBNP 82225 Solumedrol 40mg IV q8H. Consider weaning down. Cont Duonebs, Singulair . Cont to monitor <Naseem Gamez S - Last Filed: 03/07/18 17:51> Objective - Vital Signs/Intake and Output Vital Signs (last 24 hours): Temp Pulse Resp BP Pulse Ox 97.4 F L 86 20 181/79 H 96 03/07/18 16:00 03/07/18 16:00 03/07/18 16:00 03/07/18 17:40 03/07/18 16:00 Intake and Output: 03/07/18 03/07/18 06:59 18:59 Intake Total 740 400 Balance 740 400 - Medications Medications: Current Medications Acetaminophen (Tylenol 325mg Tab) 650 mg PO Q6 PRN PRN Reason: Pain, Mild (1-3) Last Admin: 03/05/18 01:38 Dose: 650 mg Albuterol/Ipratropium (Duoneb 3 Mg/0.5 Mg (3 Ml) Ud) 3 ml INH RQ6 [facility] Last Admin: 03/07/18 13:31 Dose: 3 ml Amlodipine Besylate (Norvasc) 10 mg PO QPM [facility] Last Admin: 03/07/18 17:40 Dose: 10 mg Aspirin (Aspirin Chewable) 81 mg PO DAILY [facility] Last Admin: 03/07/18 10:51 Dose: 81 mg Divalproex Sodium (Depakote Sprinkles) 250 mg PO Q8H [facility] Last Admin: 03/07/18 17:40 Dose: 250 mg Furosemide (Lasix) 20 mg PO BID [facility] Last Admin: 03/07/18 17:40 Dose: 20 mg Hydralazine HCl (Apresoline) 100 mg PO Q8 [facility] Last Admin: 03/07/18 14:27 Dose: 100 mg Lidocaine (Lidoderm) 1 ea TD DAILY [facility] Last Admin: 03/07/18 10:51 Dose: 1 ea Lorazepam (Ativan) 1 mg PO Q8H PRN PRN Reason: Agitation Last Admin: 03/03/18 01:24 Dose: 1 mg Methylprednisolone (Solu-Medrol) 30 mg IVP Q8 [facility] Last Admin: 03/07/18 14:27 Dose: 30 mg Metoprolol Succinate (Toprol Xl) 50 mg PO DAILY [facility] Last Admin: 03/07/18 10:51 Dose: 50 mg Montelukast Sodium (Singulair) 10 mg PO DAILY [facility] Last Admin: 03/07/18 10:51 Dose: 10 mg Morphine Sulfate (Morphine) 1 mg IVP Q4 PRN PRN Reason: Pain, severe (8-10) Last Admin: 03/07/18 07:57 Dose: 1 mg Ondansetron HCl (Zofran Inj) 4 mg IVP Q4H PRN PRN Reason: Nausea/Vomiting Last Admin: 03/06/18 19:59 Dose: 4 mg Pantoprazole Sodium (Protonix Ec Tab) 40 mg PO DAILY [facility] Last Admin: 03/07/18 10:51 Dose: 40 mg Potassium Chloride (K-Dur 20 Meq Er Tab) 20 meq PO DAILY [facility] Last Admin: 03/07/18 10:51 Dose: 20 meq Ranolazine (Ranexa) 500 mg PO BID [facility] Last Admin: 03/07/18 17:41 Dose: 500 mg Tramadol HCl (Ultram) 50 mg PO Q8H PRN PRN Reason: Pain, moderate (4-7) Last Admin: 03/05/18 04:39 Dose: 50 mg Vitamin B Complex/Vit C/Folic Acid (Nephro-Karolyn) 1 tab PO 0800 [facility] Last Admin: 03/07/18 08:00 Dose: 1 tab Zolpidem Tartrate (Ambien) 5 mg PO HS PRN PRN Reason: Insomnia Last Admin: 03/05/18 22:07 Dose: 5 mg - Labs Labs: 03/07/18 07:23 03/07/18 07:23 PT 13.6 SECONDS (9.7-12.2) H 01/15/18 07:10 INR 1.2 01/15/18 07:10 APTT 34 SECONDS (21-34) 12/09/17 00:22 Attending/Attestation - Attestation I have personally seen and examined this patient.: Yes I have fully participated in the care of the patient.: Yes I have reviewed all pertinent clinical information, including history, physical exam and plan: Yes
[2018-03-07] MEDS: Metoprolol Succinate 50 mg XL Tab PO SCH (10:51)
[2018-03-07] MEDS: Lidocaine 5% Patch TD SCH (10:51)
[2018-03-07] MEDS: Pantoprazole 40 mg EC Tab PO SCH (10:51)
[2018-03-07] MEDS: Potassium Chloride 20 mEq ER Tab PO SCH (10:51)
[2018-03-07] MEDS: Ranolazine 500 mg Extended Release Tablets PO SCH ×2 (10:51→17:41)
--- NOTE | 2018-03-07 11:11 | PN ---
DATE: 03/07/2018 SUBJECTIVE: I came to see her this morning. She is in one of her rare moods. She is complaining of chest pain, shortness of breath, wanting oxygen up to 6 L, multiple complaints this morning. MEDICATIONS: She is on Ambien, Apresoline, aspirin, Ativan, Depakote, DuoNeb, potassium, Lasix, Lidoderm, morphine, Nephro-Karolyn, Norvasc, Protonix, Ranexa, Singulair, Solu-Medrol 40 IV every 8 hours, Tylenol, Ultram, and Zofran. PHYSICAL EXAMINATION: VITAL SIGNS: She has a 97.8 temperature, 93 pulse, 154/70 blood pressure, 20 respiratory rate. I moved her oxygen up to 6 L and went to 100% O2 sat. I slowly dropped it down to 3 L and 2 L, she was between 99% and 100% and let her on 3 L nasal cannula. She is get a breathing treatment. LABORATORY DATA: She has a 6.5 white count, 10.2 hemoglobin, 328 platelets, this morning. She had 144 sodium, potassium 4.7, BUN 51, creatinine 1.5 that has gone up, sugar was 150, on steroids, AST 37, ALT is less than 6, alk phos is 44. ASSESSMENT AND PLAN: I am going to decrease the Solu-Medrol. Stool for occult blood was negative. She is being seen by Pulmonary and the CAT scan of the chest showed emphysematous changes. I will increase her IV fluids and decrease the IV steroids. I am going to check her troponin, hopefully she will do well. She is very strong and yelling and screaming. History of chronic obstructive pulmonary disease, congestive heart failure, emphysema, renal insufficiency, chronic pain. John Brown DO MTDD
[2018-03-08] MEDS: Morphine 4 MG/ML VIAL IVP PRN ×5 (00:43→22:08)
[2018-03-08] MEDS: Divalproex 125 mg Sprinkle Capsule PO SCH ×3 (00:45→17:50)
[2018-03-08] MEDS: Albuterol-Ipratrop 3 mg / 0.5 (3 ml) UD INH SCH ×4 (02:50→19:33)
[2018-03-08] MEDS: MethylPREDNISolone 40 mg Vial IVP SCH ×3 (06:12→22:07)
[2018-03-08] MEDS: Sodium Chloride 0.45% 1,000 ML IV SCH ×2 (06:13→22:30)
[2018-03-08 08:11] LABS: HEMOGLOBIN 9.9 g/dL (11.0-16.0); MEAN CELL VOLUME 91.8 fL (81.0-99.0); MEAN CORPUSCULAR HEMOGLOBIN 30.8 pg (27.0-31.0); MEAN CORPUSCULAR HGB CONC 33.5 g/dL (33.0-37.0); RBC 3.23 Mil/uL (3.80-5.20); RED CELL DISTRIBUTION WIDTH 16.3 % (11.5-14.5); WHITE BLOOD COUNT 11.1 K/uL (4.8-10.8)
[2018-03-08 08:24] LABS: ALB/GLOB RATIO 1.4 (1.0-2.1); ALBUMIN 3.4 g/dL (3.5-5.0); AST/SGOT 15 U/L (14-36); BLOOD UREA NITROGEN 70 mg/dL (7-17); CALCIUM 9.3 mg/dl (8.6-10.4); GFR AFRICAN-AMERICAN 38; GFR NON-AFRICAN AMERICAN 32
[2018-03-08 08:28] LABS: ALT/SGPT < 6 U/L (9-52)
--- NOTE | 2018-03-08 10:11 | PN ---
DATE: 03/08/2018 SUBJECTIVE: I saw her sleeping this morning in her room. She tells me she is going AMA this weekend and go home on Monday. She has been here long enough, she tells me. It has been over 90 days and wants to go home. She tells me she has not seen her dog and cat. She is on Ambien, Apresoline, aspirin, Ativan, Depakote, DuoNeb, potassium, Lasix, Lidoderm, morphine, Nephro-Karolyn, Norvasc, Protonix, Ranexa, Singulair. Solu-Medrol is down to 30. Toprol, Tylenol, Ultram, and Zofran. PHYSICAL EXAMINATION: VITAL SIGNS: 27.6 temperature, 85 pulse, 154/74 blood pressure, 20 respiratory rate, 96% O2 saturation on 3 liters nasal cannula. HEENT: Atraumatic and normocephalic. HEART: Regular rate. LUNGS: Decreased breath sounds but clear. ABDOMEN: Soft. No pain. EXTREMITIES: No edema. LABORATORY DATA: Last labs on this day, she has 12.2 white count, on steroids, 10.2 hemoglobin, 30.9 hematocrit, 365 platelet. Sodium 143, potassium 4.8, BUN 62, creatinine 1.5, going up a little bit. Sugar is 187, on steroids. Total bili is 0.2, AST is 16, ALT is less than 6, alk phos 44. Troponin I is 0.013. Total protein 6.2. I will give a little bit of IV fluids, help with kidney function. Plan is to do labs tomorrow if she allows us. The kidney functions are going up. getting a little more hydration. We will check her labs tomorrow. As per Psychiatry, if she could I do not think we can allow that. ASSESSMENT AND PLAN: Congestive heart failure, chronic obstructive pulmonary edema, renal insufficiency, chronic pain. John Brown DO MTDD
[2018-03-08] MEDS: Pantoprazole 40 mg EC Tab PO SCH (10:33)
[2018-03-08] MEDS: Potassium Chloride 20 mEq ER Tab PO SCH (10:33)
[2018-03-08] MEDS: Multivitamin Vitamin B Complex (Nephro-Vite) Tab PO SCH (10:34)
[2018-03-08] MEDS: Ranolazine 500 mg Extended Release Tablets PO SCH ×2 (10:36→17:50)
[2018-03-08] MEDS: Metoprolol Succinate 50 mg XL Tab PO SCH (10:37)
[2018-03-08] MEDS: Lidocaine 5% Patch TD SCH (10:40)
--- NOTE | 2018-03-08 18:12 | CP.PCM.PN ---
Subjective - Date & Time of Evaluation Date of Evaluation: 03/08/18 Time of Evaluation: 12:10 - Subjective Subjective: Patient seen and examined Sitting comfortably in no acute distress Patient states breathing much improved but desaturates to mid 80s on room air Afebrile Objective - Vital Signs/Intake and Output Vital Signs (last 24 hours): Temp Pulse Resp BP Pulse Ox 97.4 F L 70 20 167/79 H 100 03/08/18 15:20 03/08/18 15:20 03/08/18 15:20 03/08/18 17:50 03/08/18 15:20 Intake and Output: 03/08/18 03/08/18 06:59 18:59 Intake Total 245 1380 Balance 245 1380 - Medications Medications: Current Medications Acetaminophen (Tylenol 325mg Tab) 650 mg PO Q6 PRN PRN Reason: Pain, Mild (1-3) Last Admin: 03/05/18 01:38 Dose: 650 mg Albuterol/Ipratropium (Duoneb 3 Mg/0.5 Mg (3 Ml) Ud) 3 ml INH RQ6 [facility] Last Admin: 03/08/18 13:52 Dose: 3 ml Amlodipine Besylate (Norvasc) 10 mg PO QPM [facility] Last Admin: 03/08/18 17:50 Dose: 10 mg Aspirin (Aspirin Chewable) 81 mg PO DAILY [facility] Last Admin: 03/08/18 10:33 Dose: 81 mg Divalproex Sodium (Depakote Sprinkles) 250 mg PO Q8H [facility] Last Admin: 03/08/18 17:50 Dose: 250 mg Furosemide (Lasix) 20 mg PO BID [facility] Last Admin: 03/08/18 17:50 Dose: 20 mg Hydralazine HCl (Apresoline) 100 mg PO Q8 [facility] Last Admin: 03/08/18 14:13 Dose: 100 mg Sodium Chloride (Sodium Chloride 0.45%) 1,000 mls @ 60 mls/hr IV .[id number] [facility] Last Admin: 03/08/18 06:13 Dose: 60 mls/hr Lidocaine (Lidoderm) 1 ea TD DAILY [facility] Last Admin: 03/08/18 10:40 Dose: Not Given Lorazepam (Ativan) 1 mg PO Q8H PRN PRN Reason: Agitation Last Admin: 03/03/18 01:24 Dose: 1 mg Methylprednisolone (Solu-Medrol) 30 mg IVP Q8 [facility] Last Admin: 03/08/18 14:34 Dose: 30 mg Metoprolol Succinate (Toprol Xl) 50 mg PO DAILY [facility] Last Admin: 03/08/18 10:37 Dose: 50 mg Montelukast Sodium (Singulair) 10 mg PO DAILY [facility] Last Admin: 03/08/18 10:33 Dose: 10 mg Morphine Sulfate (Morphine) 1 mg IVP Q4 PRN PRN Reason: Pain, severe (8-10) Last Admin: 03/08/18 17:51 Dose: 1 mg Ondansetron HCl (Zofran Inj) 4 mg IVP Q4H PRN PRN Reason: Nausea/Vomiting Last Admin: 03/06/18 19:59 Dose: 4 mg Pantoprazole Sodium (Protonix Ec Tab) 40 mg PO DAILY [facility] Last Admin: 03/08/18 10:33 Dose: 40 mg Potassium Chloride (K-Dur 20 Meq Er Tab) 20 meq PO DAILY [facility] Last Admin: 03/08/18 10:33 Dose: 20 meq Ranolazine (Ranexa) 500 mg PO BID [facility] Last Admin: 03/08/18 17:50 Dose: 500 mg Tramadol HCl (Ultram) 50 mg PO Q8H PRN PRN Reason: Pain, moderate (4-7) Last Admin: 03/05/18 04:39 Dose: 50 mg Vitamin B Complex/Vit C/Folic Acid (Nephro-Karolyn) 1 tab PO 0800 [facility] Last Admin: 03/08/18 10:34 Dose: 1 tab Zolpidem Tartrate (Ambien) 5 mg PO HS PRN PRN Reason: Insomnia Last Admin: 03/05/18 22:07 Dose: 5 mg - Labs Labs: 03/08/18 08:02 03/08/18 08:02 PT 13.6 SECONDS (9.7-12.2) H 01/15/18 07:10 INR 1.2 01/15/18 07:10 APTT 34 SECONDS (21-34) 12/09/17 00:22 - Head Exam Head Exam: ATRAUMATIC, NORMOCEPHALIC - ENT Exam ENT Exam: Mucous Membranes Moist - Neck Exam Neck Exam: Normal Inspection - Respiratory Exam Respiratory Exam: Rales - Cardiovascular Exam Cardiovascular Exam: REGULAR RHYTHM - GI/Abdominal Exam GI & Abdominal Exam: Soft Assessment and Plan (1) Interstitial lung disease Assessment & Plan: continue IV steroids Nebulizer treatment On Lasix Followup chest x-ray Wants to go home Will need home oxygen Status: Acute (2) COPD exacerbation Status: Acute
[2018-03-09] MEDS: Sodium Chloride 0.45% 1,000 ML IV SCH (00:49)
[2018-03-09] MEDS: Divalproex 125 mg Sprinkle Capsule PO SCH ×3 (00:51→16:59)
[2018-03-09] MEDS: Albuterol-Ipratrop 3 mg / 0.5 (3 ml) UD INH SCH ×4 (01:16→19:43)
[2018-03-09] MEDS ORDERED: MethylPREDNISolone 40 mg Vial IVP SCH (06:32)
[2018-03-09 07:34] LABS: HEMOGLOBIN 9.9 g/dL (11.0-16.0); MEAN CELL VOLUME 91.3 fL (81.0-99.0); MEAN CORPUSCULAR HEMOGLOBIN 30.7 pg (27.0-31.0); MEAN CORPUSCULAR HGB CONC 33.7 g/dL (33.0-37.0); MEAN PLATELET VOLUME 9.4 fL (7.2-11.7); RBC 3.23 Mil/uL (3.80-5.20); RED CELL DISTRIBUTION WIDTH 16.1 % (11.5-14.5); WHITE BLOOD COUNT 10.4 K/uL (4.8-10.8)
[2018-03-09 07:41] LABS: ALB/GLOB RATIO 1.3 (1.0-2.1); CALCIUM 8.5 mg/dl (8.6-10.4)
--- NOTE | 2018-03-09 10:50 | PN ---
DATE: 03/09/2018 Subjective: She is resting comfortably is bed. She is still having pain, getting morphine. She is threatening that she is going to sign out tomorrow, Monday, and go home. I have called in Dr. Burdick for another re-eval, and she is mentally capable of making a decision. Waiting over 90 days for a decision she states to go home and verbally consented from social studies teacher, case management and to why it is taking so long. OBJECTIVE: VITAL SIGNS: She has a 97.9 temperature, 86 pulse, 146/69 blood pressure, 20 respiratory rate, 95% O2 sat on 3L. HEENT: Head is atraumatic and normocephalic. HEART: Regular rate. LUNGS: Decreased breath sounds but clear. ABDOMEN: Soft, nontender. EXTREMITIES: No edema. She has got morphine for pain. She is currently on Ambien, Apresoline, aspirin, Ativan, Depakote, DuoNeb, potassium, Lasix, morphine, Lidoderm, Nephro-Karolyn, Norvasc, Protonix, Ranexa, Singulair, IV fluids, Solu-Medrol is down to 30, Toprol, Tylenol, Ultram and Zofran. I will decrease the Solu-Medrol to 20. Last lab on the , white count 11.1, hemoglobin 9.9, platelets 328. Sodium 139, potassium 4.6, BUN 17, creatinine 1.6, still going up. We have called in Renal again and also called in Psychiatry if she is capable of actually making decisions to AMA or hopefully if she will stay. Waiting for placement situation. Congestive heart failure, chronic obstructive pulmonary disease, renal insufficiency, chronic pain. John Brown DO MTDD
[2018-03-09] MEDS: Potassium Chloride 20 mEq ER Tab PO SCH (11:15)
[2018-03-09] MEDS: Metoprolol Succinate 50 mg XL Tab PO SCH (11:15)
[2018-03-09] MEDS: Lidocaine 5% Patch TD SCH (11:15)
[2018-03-09] MEDS: Ranolazine 500 mg Extended Release Tablets PO SCH ×2 (11:17→16:59)
[2018-03-09] MEDS: MethylPREDNISolone 40 mg Vial IVP SCH ×2 (14:05→21:11)
[2018-03-09] MEDS: Pantoprazole 40 mg EC Tab PO SCH (14:05)
--- NOTE | 2018-03-09 14:59 | CP.PCM.CON ---
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 Hypertension control with meds as ordered. not on ACEI/ARB due to recurrent AKIs Monitor Input/Output, daily weights and renal function with basic metabolic panel supplement electrolytes as needed continue with diuretics as lasix 20 mg bid. recent rise in serum BUN likely due to steroids (considering stable cr) hence can d/c IVF COPD management as per pulmonary. Dose meds/antibiotics for reduced GFR. Avoid fleets enema/magnesium based laxatives. Avoid nephrotoxins/NSAIDs/ iodinated contrast (unless needed emergently) Glycemic control Further work up/management as per primary team Thanks for allowing me to participate in care of your patient. Please call if any Qs. d/w team Dr Shiraz Husain Office: [phone] reason for consult: ETHEL HPI: Pt is a 72 F with hx of diabetes Mellitus (years), hypertension (many years ), CAD s/p stent, PVD s/p iliac stent, Rt renal artery stenosis 60%, Ca breast s /p chemo presented with complaints of chest pain and SOB, managed for CHF and NSTEMI in past, reported heavy use of NSAIDs as naproxen, up to 10 tab/day for months probably has baseline CKD with cr 1.0-1.2 with intermittent AKIs here for last 3 months due to placement issues reconsulted for ETHEL and high BUN/cr pt happy today, says I am going home tomorrow says I feel good. ROS: She denies SOB/chest pain. Denies any urinary complaint. No nausea vomiting. No pain abdomen. all other negative Physical Examination: General Appearance: Comfortable, in no acute respiratory distress Vitals reviewed and noted as below Head; Atraumatic, normocephalic ENT: no ulcers no thrush. Tongue is midline. Oropharynx: no rash or ulcers. EYES: Pupils are equal, round and reactive to light accommodation. Eye muscles and extra-ocular movement intact. Sclera is anicteric. Neck; supple no lymphadenopathy, no thyromegaly or bruit Lungs: Normal respiratory rate/effort. Breath sounds bilateral with bibasal crackles Heart: Normal rate. s1s2 normal. No rub or gallop. Extremities: no edema. No varicose veins Neurological: Patient is Awake alert follow commands. Moving all 4 extremities. No focal deficit Skin: Warm and dry. Normal turgor. No rash. Palpitation: Normal elasticity for age Abdomen: Abdomen is soft. Bowel sounds +. There is no abdominal tenderness, no guarding/rigidity no organomegaly Psych: Limited insight. Patient is cheerful today MSK: no joint tenderness or swelling. Digits and nails normal, no deformity : kidney or bladder not palpable Labs/imaging reviewed. Past medical history, past surgical history, family history, social history, allergy reviewed and noted as below Family hx: no hx of CKD. Rest non-contributory sono jun 2017: simple cyst. previous CT showed stable complex cyst left kidney echo; moderate to severe TR SPEP/AMY neg, serum FLC assay WNL. 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) - RENAL Hx Chronic Kidney Disease: Yes - ENDOCRINE/METABOLIC Hx Diabetes Mellitus Type 2: Yes - HEMATOLOGICAL/ONCOLOGICAL Hx Anemia: Yes (blood transfusion) - INTEGUMENTARY Hx Dermatological Problems: No - MUSCULOSKELETAL/RHEUMATOLOGICAL Hx Arthritis: Yes (both hips,left ankle) - GASTROINTESTINAL Hx Gastrointestinal Disorders: Yes Hx Gastroesophageal Reflux: Yes - GENITOURINARY/GYNECOLOGICAL Hx Genitourinary Disorders: No - PSYCHIATRIC Hx Psychophysiologic Disorder: Yes Hx Schizophrenia: Yes Hx Substance Use: No - SURGICAL HISTORY Hx Surgeries: Yes Hx Coronary Stent: Yes - ANESTHESIA Hx Anesthesia: Yes Hx Anesthesia Reactions: No Hx Malignant Hyperthermia: No Meds Allergies/Adverse Reactions: Allergies Allergy/AdvReac Type Severity Reaction Status Date / Time iodine Allergy Severe ANAPHYLAXIS Verified 12/09/17 00:05 iv dye Allergy Severe ANAPHYLAXIS Uncoded 12/09/17 00:05 - Medications Medications: Current Medications Acetaminophen (Tylenol 325mg Tab) 650 mg PO Q6 PRN PRN Reason: Pain, Mild (1-3) Last Admin: 03/05/18 01:38 Dose: 650 mg Albuterol/Ipratropium (Duoneb 3 Mg/0.5 Mg (3 Ml) Ud) 3 ml INH RQ6 [facility] Last Admin: 03/09/18 13:18 Dose: 3 ml Amlodipine Besylate (Norvasc) 10 mg PO QPM [facility] Aspirin (Aspirin Chewable) 81 mg PO DAILY [facility] Last Admin: 03/09/18 11:14 Dose: 81 mg Divalproex Sodium (Depakote Sprinkles) 250 mg PO Q8H [facility] Last Admin: 03/09/18 11:14 Dose: 250 mg Furosemide (Lasix) 20 mg PO BID [facility] Last Admin: 03/09/18 11:15 Dose: 20 mg Hydralazine HCl (Apresoline) 100 mg PO Q8 [facility] Last Admin: 03/09/18 14:04 Dose: 100 mg Sodium Chloride (Sodium Chloride 0.45%) 1,000 mls @ 60 mls/hr IV .[id number] [facility] Last Admin: 03/09/18 00:49 Dose: 60 mls/hr Lidocaine (Lidoderm) 1 ea TD DAILY [facility] Last Admin: 03/09/18 11:15 Dose: Not Given Lorazepam (Ativan) 1 mg PO Q8H PRN PRN Reason: Agitation Methylprednisolone (Solu-Medrol) 20 mg IVP Q8 [facility] Last Admin: 03/09/18 14:05 Dose: 20 mg Metoprolol Succinate (Toprol Xl) 50 mg PO DAILY [facility] Last Admin: 03/09/18 11:15 Dose: 50 mg Montelukast Sodium (Singulair) 10 mg PO DAILY [facility] Last Admin: 03/08/18 10:33 Dose: 10 mg Morphine Sulfate (Morphine) 1 mg IVP Q4H PRN PRN Reason: Pain, severe (8-10) Last Admin: 03/09/18 11:48 Dose: 1 mg Ondansetron HCl (Zofran Inj) 4 mg IVP Q4H PRN PRN Reason: Nausea/Vomiting Last Admin: 03/08/18 19:32 Dose: 4 mg Pantoprazole Sodium (Protonix Ec Tab) 40 mg PO DAILY [facility] Last Admin: 03/09/18 14:05 Dose: 40 mg Potassium Chloride (K-Dur 20 Meq Er Tab) 20 meq PO DAILY [facility] Last Admin: 03/09/18 11:15 Dose: Not Given Ranolazine (Ranexa) 500 mg PO BID [facility] Last Admin: 03/09/18 11:17 Dose: 500 mg Tramadol HCl (Ultram) 50 mg PO Q8H PRN PRN Reason: Pain, moderate (4-7) Last Admin: 03/09/18 14:52 Dose: 50 mg Vitamin B Complex/Vit C/Folic Acid (Nephro-Karolyn) 1 tab PO 0800 [facility] Zolpidem Tartrate (Ambien) 5 mg PO HS PRN PRN Reason: Insomnia Results - Vital Signs Recent Vital Signs: Last Vital Signs Temp 97.9 F 03/09/18 04:30 Pulse 78 03/09/18 06:32 Resp 20 03/09/18 04:30 BP 178/74 H 03/09/18 11:15 Pulse Ox 96 03/09/18 06:32 - Labs Result Diagrams: 03/09/18 07:22 03/09/18 07:22 Labs: Laboratory Results - last 24 hr 03/09/18 03/09/18 03/09/18 06:48 07:22 07:22 WBC 10.4 RBC 3.23 L Hgb 9.9 L Hct 29.5 L MCV 91.3 MCH 30.7 MCHC 33.7 RDW 16.1 H Plt Count 323 MPV 9.4 Sodium 137 Potassium 4.1 Chloride 100 Carbon Dioxide 24 Anion Gap 17 BUN 73 H Creatinine 1.5 H Est GFR ( Amer) 41 Est GFR (Non-Af Amer) 34 POC Glucose (mg/dL) 169 H Random Glucose 166 H Calcium 8.5 L Total Bilirubin 0.3 AST 13 L ALT 13 Alkaline Phosphatase 36 L Total Protein 5.2 L Albumin 3.0 L Globulin 2.2 Albumin/Globulin Ratio 1.3 03/09/18 11:15 WBC RBC Hgb Hct MCV MCH MCHC RDW Plt Count MPV Sodium Potassium Chloride Carbon Dioxide Anion Gap BUN Creatinine Est GFR ( Amer) Est GFR (Non-Af Amer) POC Glucose (mg/dL) 205 H Random Glucose Calcium Total Bilirubin AST ALT Alkaline Phosphatase Total Protein Albumin Globulin Albumin/Globulin Ratio
[2018-03-10] MEDS: Albuterol-Ipratrop 3 mg / 0.5 (3 ml) UD INH SCH ×4 (01:20→19:35)
[2018-03-10] MEDS: Divalproex 125 mg Sprinkle Capsule PO SCH ×3 (01:38→17:07)
[2018-03-10] MEDS: MethylPREDNISolone 40 mg Vial IVP SCH (06:18)
[2018-03-10] MEDS: Multivitamin Vitamin B Complex (Nephro-Vite) Tab PO SCH ×2 (09:00→10:20)
[2018-03-10] MEDS: Metoprolol Succinate 50 mg XL Tab PO SCH (11:10)
[2018-03-10] MEDS: Pantoprazole 40 mg EC Tab PO SCH (11:10)
[2018-03-10] MEDS: Ranolazine 500 mg Extended Release Tablets PO SCH ×2 (11:11→18:08)
[2018-03-10] MEDS: Potassium Chloride 20 mEq ER Tab PO SCH (11:13)
[2018-03-10] MEDS: Lidocaine 5% Patch TD SCH (11:15)
--- NOTE | 2018-03-10 12:17 | CP.PCM.PN ---
Subjective - Date & Time of Evaluation Date of Evaluation: 03/10/18 Time of Evaluation: 10:00 - Subjective Subjective: patient seen and examined Sitting comfortably in no acute distress Wants to go home Breathing much better Afebrile Taper steroids Diuretics Continue nebulizer treatment Objective - Vital Signs/Intake and Output Vital Signs (last 24 hours): Temp Pulse Resp BP Pulse Ox 98.1 F 78 20 142/59 L 97 03/09/18 23:50 03/09/18 23:50 03/09/18 23:50 03/10/18 11:10 03/09/18 23:50 Intake and Output: 03/10/18 03/10/18 06:59 18:59 Intake Total 600 Balance 600 - Medications Medications: Current Medications Acetaminophen (Tylenol 325mg Tab) 650 mg PO Q6 PRN PRN Reason: Pain, Mild (1-3) Last Admin: 03/05/18 01:38 Dose: 650 mg Albuterol/Ipratropium (Duoneb 3 Mg/0.5 Mg (3 Ml) Ud) 3 ml INH RQ6 [facility] Last Admin: 03/10/18 08:10 Dose: 3 ml Amlodipine Besylate (Norvasc) 10 mg PO QPM [facility] Last Admin: 03/09/18 16:59 Dose: 10 mg Aspirin (Aspirin Chewable) 81 mg PO DAILY [facility] Last Admin: 03/10/18 11:12 Dose: 81 mg Divalproex Sodium (Depakote Sprinkles) 250 mg PO Q8H [facility] Last Admin: 03/10/18 09:15 Dose: 250 mg Furosemide (Lasix) 20 mg PO BID [facility] Last Admin: 03/10/18 11:10 Dose: 20 mg Hydralazine HCl (Apresoline) 100 mg PO Q8 [facility] Last Admin: 03/10/18 07:00 Dose: 100 mg Lidocaine (Lidoderm) 1 ea TD DAILY [facility] Last Admin: 03/10/18 11:15 Dose: Not Given Lorazepam (Ativan) 1 mg PO Q8H PRN PRN Reason: Agitation Metoprolol Succinate (Toprol Xl) 50 mg PO DAILY [facility] Last Admin: 03/10/18 11:10 Dose: 50 mg Montelukast Sodium (Singulair) 10 mg PO DAILY [facility] Last Admin: 03/10/18 11:15 Dose: Not Given Morphine Sulfate (Morphine) 1 mg IVP Q4H PRN PRN Reason: Pain, severe (8-10) Last Admin: 03/10/18 07:02 Dose: 1 mg Ondansetron HCl (Zofran Inj) 4 mg IVP Q4H PRN PRN Reason: Nausea/Vomiting Last Admin: 03/10/18 04:19 Dose: 4 mg Pantoprazole Sodium (Protonix Ec Tab) 40 mg PO DAILY [facility] Last Admin: 03/10/18 11:10 Dose: 40 mg Potassium Chloride (K-Dur 20 Meq Er Tab) 20 meq PO DAILY [facility] Last Admin: 03/10/18 11:13 Dose: 20 meq Prednisone (Prednisone Tab) 30 mg PO DAILY [facility] Ranolazine (Ranexa) 500 mg PO BID [facility] Last Admin: 03/10/18 11:11 Dose: 500 mg Tramadol HCl (Ultram) 50 mg PO Q8H PRN PRN Reason: Pain, moderate (4-7) Last Admin: 03/09/18 14:52 Dose: 50 mg Vitamin B Complex/Vit C/Folic Acid (Nephro-Karolyn) 1 tab PO 0800 [facility] Last Admin: 03/10/18 10:20 Dose: Not Given Zolpidem Tartrate (Ambien) 5 mg PO HS PRN PRN Reason: Insomnia - Labs Labs: 03/09/18 07:22 03/09/18 07:22 PT 13.6 SECONDS (9.7-12.2) H 01/15/18 07:10 INR 1.2 01/15/18 07:10 APTT 34 SECONDS (21-34) 12/09/17 00:22 Assessment and Plan (1) Interstitial lung disease Status: Acute (2) COPD exacerbation Status: Acute
--- NOTE | 2018-03-10 15:09 | PN ---
DATE: 03/10/2018 SUBJECTIVE: She is resting comfortably in bed. She has makeup on. She is telling me she is all packed and she is ready to be discharged to home, has been here for 3-1/2-plus months. It is very frustrating for her, trying to get outreach and education social worker, case management, insurance, and hopefully a place for her somewhere where she will be taken care safely. She is really frustrated; that is why she is starting to AMA unless a note from Psychiatry that she is not able to AMA. I was hoping they would have come back. They have not seen her in over a week. PHYSICAL EXAMINATION: VITAL SIGNS: She has a 98.1 temp, 78 pulse, 157/67 blood pressure, 20 respiratory rate, 97% O2 saturation on 2 L nasal cannula. HEENT: Head is atraumatic, normocephalic. HEART: Regular rate. LUNGS: Decreased breath sounds but clear. ABDOMEN: Soft and nontender. EXTREMITIES: No edema. MEDICATIONS: She is currently on Ambien, Apresoline, aspirin, Ativan, Depakote, DuoNeb, potassium, Lasix, Lidoderm, morphine, Nephro-Karolyn, Norvasc, Protonix, Ranexa, Singulair, Solu-Medrol, Toprol, Tylenol, Ultram, and Zofran. I will discontinue the Solu-Medrol, change it to prednisone due to 10.4 white count, 9.9 hemoglobin, 323 platelets, that was yesterday. LABORATORY DATA: Blood sugar was 190. SMA-7 showed 73 BUN and creatinine 1.5, going up. She needs more fluids. I will get renal to help us with that and she cannot AMA at this time. She has CHF, COPD, renal insufficiency, chronic pain, and she needs to have outreach and education social worker help us with placement. John Brown DO
[2018-03-11] MEDS: Albuterol-Ipratrop 3 mg / 0.5 (3 ml) UD INH SCH ×4 (01:09→20:27)
[2018-03-11] MEDS: Divalproex 125 mg Sprinkle Capsule PO SCH ×3 (01:51→17:00)
[2018-03-11] MEDS: Multivitamin Vitamin B Complex (Nephro-Vite) Tab PO SCH (08:30)
[2018-03-11 08:59] LABS: HEMOGLOBIN 11.7 g/dL (11.0-16.0); MEAN CELL VOLUME 91.1 fL (81.0-99.0); MEAN CORPUSCULAR HEMOGLOBIN 29.8 pg (27.0-31.0); MEAN CORPUSCULAR HGB CONC 32.7 g/dL (33.0-37.0); MEAN PLATELET VOLUME 9.3 fL (7.2-11.7); RBC 3.92 Mil/uL (3.80-5.20); RED CELL DISTRIBUTION WIDTH 15.6 % (11.5-14.5); WHITE BLOOD COUNT 11.2 K/uL (4.8-10.8)
[2018-03-11] MEDS: Pantoprazole 40 mg EC Tab PO SCH (09:19)
[2018-03-11] MEDS: Metoprolol Succinate 50 mg XL Tab PO SCH (09:20)
[2018-03-11] MEDS: Ranolazine 500 mg Extended Release Tablets PO SCH ×2 (09:20→18:00)
[2018-03-11 09:21] LABS: ALB/GLOB RATIO 1.6 (1.0-2.1); ALBUMIN 3.5 g/dL (3.5-5.0); CALCIUM 8.7 mg/dl (8.6-10.4)
[2018-03-11] MEDS: Lidocaine 5% Patch TD SCH (09:22)
[2018-03-11] MEDS: Potassium Chloride 20 mEq ER Tab PO SCH (09:25)
--- NOTE | 2018-03-11 16:51 | PN ---
DATE: 03/11/2018 SUBJECTIVE: She is resting comfortably in bed. She tells me tomorrow on her birthday, the , that she is going to AMA. I called in Psychiatry to get his opinion again, he has not come to the chart yet, otherwise she is about the same. She is breathing better, tapered the steroids. She is currently on Ambien, Apresoline, aspirin, Ativan, Depakote, DuoNebs, potassium, Lasix, Lidoderm, morphine as needed, Nephro-Karolyn, Norvasc, prednisone, Protonix, Ranexa, Singulair, Toprol, Tylenol, Ultram, and Zofran. She has 11.4 white count, 11.7 hemoglobin, 35.8 hematocrit with 325 platelet count, 139 sodium, potassium 3.6, BUN is, creatinine 1.3 getting better, GFR is 40. Last blood sugar is 130, calcium is 8.7, total bili is 0.6, AST is 17, ALT is 14, alk phos 35, total protein is 5.7. She is being seen by Pulmonary and Renal at this time. I called in Psychiatry to get his opinion, Dr. Burdick, but he tells me he is in AMA. I do not think she is capable of doing that. PHYSICAL EXAMINATION: HEENT: Head is atraumatic, normocephalic. Throat is moist. NECK: Supple. HEART: Regular rate. LUNGS: Decreased breath sounds bilaterally. ABDOMEN: Soft, nontender. Positive bowel sounds EXTREMITIES: No edema. She can get out of bed to chair. ASSESSMENT AND PLAN: Congestive heart failure, chronic obstructive pulmonary disease, renal insufficiency, chronic pain, and she is over three months waiting for placement. insurance and financial services agent, case management John Brown DO MTDD
[2018-03-12] MEDS: Albuterol-Ipratrop 3 mg / 0.5 (3 ml) UD INH SCH ×4 (01:07→20:22)
[2018-03-12] MEDS: Divalproex 125 mg Sprinkle Capsule PO SCH ×3 (02:00→17:20)
[2018-03-12] MEDS ORDERED: Potassium Chloride 20 mEq ER Tab PO ONE (05:42)
[2018-03-12] MEDS: Multivitamin Vitamin B Complex (Nephro-Vite) Tab PO SCH (09:00)
[2018-03-12] MEDS: Metoprolol Succinate 50 mg XL Tab PO SCH (09:28)
[2018-03-12] MEDS: Pantoprazole 40 mg EC Tab PO SCH (09:28)
[2018-03-12] MEDS: Ranolazine 500 mg Extended Release Tablets PO SCH ×2 (09:29→18:00)
[2018-03-12] MEDS: Potassium Chloride 20 mEq ER Tab PO SCH ×2 (11:16→11:40)
[2018-03-12] MEDS: Lidocaine 5% Patch TD SCH ×2 (11:17→11:18)
--- NOTE | 2018-03-12 15:26 | CP.PCM.PN ---
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 Hypertension control with meds as ordered. not on ACEI/ARB due to recurrent AKIs Monitor Input/Output, daily weights and renal function with basic metabolic panel supplement electrolytes as needed continue with diuretics as lasix 20 mg bid. recent rise in serum BUN likely due to steroids (considering stable cr) hence can d/c IVF COPD management as per pulmonary. Dose meds/antibiotics for reduced GFR. Avoid fleets enema/magnesium based laxatives. Avoid nephrotoxins/NSAIDs/ iodinated contrast (unless needed emergently) Glycemic control Further work up/management as per primary team pt stable from renal perspective Thanks for allowing me to participate in care of your patient. will sign off and follow further on as needed basis. Please call if any Qs. d/w team Dr Shiraz Husain Office: [phone] reason for consult: ETHEL HPI: Pt is a 72 F with hx of diabetes Mellitus (years), hypertension (many years ), CAD s/p stent, PVD s/p iliac stent, Rt renal artery stenosis 60%, Ca breast s /p chemo presented with complaints of chest pain and SOB, managed for CHF and NSTEMI in past, reported heavy use of NSAIDs as naproxen, up to 10 tab/day for months probably has baseline CKD with cr 1.0-1.2 with intermittent AKIs here for last 3 months due to placement issues reconsulted for ETHEL and high BUN/cr ROS: She is upset that not going home. she is irritable and verbally abusive again. Physical Examination: limited as pt not cooperative General Appearance: Comfortable, in no acute respiratory distress Vitals reviewed and noted as below Head; Atraumatic, normocephalic Lungs: Normal respiratory rate/effort. Breath sounds bilateral with bibasal crackles Heart: Normal rate. s1s2 normal. No rub or gallop. Extremities: no edema. No varicose veins Neurological: Patient is Awake alert follow commands. Moving all 4 extremities. No focal deficit Skin: Warm and dry. Normal turgor. No rash. Palpitation: Normal elasticity for age Abdomen: Abdomen is soft. Bowel sounds +. There is no abdominal tenderness, no guarding/rigidity no organomegaly Psych: Lack insight. Patient is irritable today Labs/imaging reviewed. Past medical history, past surgical history, family history, social history, allergy reviewed and noted as below Family hx: no hx of CKD. Rest non-contributory sono jun 2017: simple cyst. previous CT showed stable complex cyst left kidney echo; moderate to severe TR SPEP/AMY neg, serum FLC assay WNL. Vit D <12.8 PTH 168 TSAT 4% Ferritin 19 Hep B and C neg Objective - Vital Signs/Intake and Output Vital Signs (last 24 hours): Temp Pulse Resp BP Pulse Ox 97.5 F L 75 20 156/52 H 99 03/11/18 23:55 03/11/18 23:55 03/11/18 23:55 03/12/18 13:57 03/11/18 23:55 Intake and Output: 03/12/18 03/12/18 06:59 18:59 Intake Total 450 Output Total 600 Balance -150 - Medications Medications: Current Medications Acetaminophen (Tylenol 325mg Tab) 650 mg PO Q6H PRN PRN Reason: Pain, Mild (1-3) Last Admin: 03/11/18 23:29 Dose: 650 mg Albuterol/Ipratropium (Duoneb 3 Mg/0.5 Mg (3 Ml) Ud) 3 ml INH RQ6 [facility] Last Admin: 03/12/18 13:19 Dose: Not Given Amlodipine Besylate (Norvasc) 10 mg PO QPM [facility] Last Admin: 03/11/18 18:00 Dose: 10 mg Aspirin (Aspirin Chewable) 81 mg PO DAILY [facility] Last Admin: 03/12/18 09:28 Dose: 81 mg Divalproex Sodium (Depakote Sprinkles) 250 mg PO Q8H [facility] Last Admin: 03/12/18 09:29 Dose: 250 mg Furosemide (Lasix) 20 mg PO BID [facility] Last Admin: 03/12/18 09:28 Dose: 20 mg Hydralazine HCl (Apresoline) 100 mg PO Q8 [facility] Last Admin: 03/12/18 13:57 Dose: 100 mg Ketorolac Tromethamine (Toradol) 30 mg IVP Q6H PRN PRN Reason: Pain, moderate (4-7) Last Admin: 03/12/18 12:01 Dose: 30 mg Lidocaine (Lidoderm) 1 ea TD DAILY [facility] Last Admin: 03/12/18 11:18 Dose: Not Given Lorazepam (Ativan) 1 mg PO Q8H PRN PRN Reason: Agitation Metoprolol Succinate (Toprol Xl) 50 mg PO DAILY [facility] Last Admin: 03/12/18 09:28 Dose: 50 mg Montelukast Sodium (Singulair) 10 mg PO DAILY [facility] Last Admin: 03/12/18 11:19 Dose: Not Given Ondansetron HCl (Zofran Inj) 4 mg IVP Q4H PRN PRN Reason: Nausea/Vomiting Last Admin: 03/11/18 20:38 Dose: 4 mg Pantoprazole Sodium (Protonix Ec Tab) 40 mg PO DAILY [facility] Last Admin: 03/12/18 09:28 Dose: 40 mg Potassium Chloride (K-Dur 20 Meq Er Tab) 20 meq PO DAILY [facility] Last Admin: 03/12/18 11:40 Dose: Not Given Prednisone (Prednisone Tab) 20 mg PO DAILY [facility] Last Admin: 03/12/18 09:29 Dose: 20 mg Ranolazine (Ranexa) 500 mg PO BID [facility] Last Admin: 03/12/18 09:29 Dose: 500 mg Tramadol HCl (Ultram) 50 mg PO Q8H PRN PRN Reason: Pain, moderate (4-7) Last Admin: 03/12/18 11:15 Dose: 50 mg Vitamin B Complex/Vit C/Folic Acid (Nephro-Karolyn) 1 tab PO 0800 [facility] Last Admin: 03/12/18 09:00 Dose: 1 tab Zolpidem Tartrate (Ambien) 5 mg PO HS PRN PRN Reason: Insomnia Last Admin: 03/11/18 22:22 Dose: 5 mg - Labs Labs: 06/10/18 08:51 03/11/18 08:51 PT 13.6 SECONDS (9.7-12.2) H 01/15/18 07:10 INR 1.2 01/15/18 07:10 APTT 34 SECONDS (21-34) 12/09/17 00:22
--- NOTE | 2018-03-12 22:32 | PN ---
DATE: 03/12/2018 SUBJECTIVE: I came to see Kathy. Actually, today is her birthday, and she is yelling and screaming and cursing at me because she wants to be at home to see her dog and her cat, and I have told her numerous times everyday over the past 90 plus days that it is not up to me. Waiting for insurance. Waiting for guardianship. Waiting for her to get organized with her facility where she will stay where she can no longer take care of herself at home and she does not want to hear that, so she is very mean to everybody. The nurses tell me that she has been cursing all day long. PHYSICAL EXAMINATION: VITAL SIGNS: She has a 97.6 temp, 68 pulse, 146/61 blood pressure, 20 respiratory rate, and 96% O2 saturation on nasal cannula. HEENT: Head is atraumatic, normocephalic. HEART: Regular rate. LUNGS: Clear to auscultation. ABDOMEN: Soft. EXTREMITIES: No edema. LABORATORY DATA: Last labs on the she did fairly well. We are concerned about the 66 BUN and 1.3 creatinine but they are improving. Her hemoglobin is 11.7, white count is 11.2, platelets 325. We are trying to get labs tomorrow. She had a chest x-ray which showed diffuse chronic changes, and she was seen by Dr. Carranza for right hip pain and was given Lidoderm patch. She is here for congestive heart failure, chronic obstructive pulmonary disease, chronic pain, renal insufficiency, and hopefully, we can get this guardianship and placement sooner rather than later. I will check her labs tomorrow. John Brown DO KENNETH
[2018-03-13] MEDS: Albuterol-Ipratrop 3 mg / 0.5 (3 ml) UD INH SCH ×4 (01:10→19:26)
[2018-03-13] MEDS: Divalproex 125 mg Sprinkle Capsule PO SCH ×5 (01:46→18:00)
--- NOTE | 2018-03-13 08:55 | PN ---
DATE: 03/13/2018 SUBJECTIVE: I saw the patient in bed this morning. She is sleeping fairly well. She is not cursing at me this morning, better than yesterday, more appropriate. She is on Ambien, Apresoline, aspirin, Ativan, Depakote, DuoNeb, potassium, Lasix, Lidoderm, Nephro-Karolyn, Norvasc, prednisone, Protonix, Ranexa, Singulair, Toprol, Toradol, Tylenol, Ultram, and Zofran. She tells me she wants to go home and see her dog. I explained to her once again, it is not up to me at this time. PHYSICAL EXAMINATION: VITAL SIGNS: She has 97.8 temperature, 71 pulse, 157/63 blood pressure, 20 respiratory rate, 99% O2 sat on 3 liters nasal cannula. HEENT: Atraumatic and normocephalic. HEART: Regular rate. LUNGS: Decreased breath sounds bilaterally. ABDOMEN: Soft. EXTREMITIES: No edema. LABORATORY DATA: Last labs on 03/11/2018. I ordered labs for this morning. Hopefully, she will do them. Last blood sugar was 264. She is on prednisone. I am hoping that she will stay calm. Hopefully, social sciences lecturer, case management, insurance will help get arrangement for her to be leaving the hospital shortly. She has been here over 90 days. We will continue with aggressive treatment and care. ASSESSMENT AND PLAN: She has congestive heart failure, chronic pulmonary obstructive disease, chronic pain, renal insufficiency. We will try and check her labs. John Brown DO
[2018-03-13] MEDS: Ranolazine 500 mg Extended Release Tablets PO SCH ×2 (10:21→18:01)
[2018-03-13] MEDS: Lidocaine 5% Patch TD SCH ×2 (10:21→14:09)
[2018-03-13] MEDS: Multivitamin Vitamin B Complex (Nephro-Vite) Tab PO SCH (10:22)
[2018-03-13] MEDS: Pantoprazole 40 mg EC Tab PO SCH (10:22)
[2018-03-13] MEDS: Potassium Chloride 20 mEq ER Tab PO SCH (10:23)
[2018-03-13] MEDS: Metoprolol Succinate 50 mg XL Tab PO SCH (10:23)
[2018-03-13 14:25] LABS: MEAN CELL VOLUME 91.1 fL (81.0-99.0); MEAN CORPUSCULAR HEMOGLOBIN 29.8 pg (27.0-31.0); MEAN CORPUSCULAR HGB CONC 32.7 g/dL (33.0-37.0); RBC 2.99 Mil/uL (3.80-5.20); RED CELL DISTRIBUTION WIDTH 15.2 % (11.5-14.5); WHITE BLOOD COUNT 14.7 K/uL (4.8-10.8)
[2018-03-13 14:35] LABS: HEMOGLOBIN 8.9 g/dL (11.0-16.0)
[2018-03-13 14:44] LABS: ALB/GLOB RATIO 1.3 (1.0-2.1); ALBUMIN 2.8 g/dL (3.5-5.0); CALCIUM 8.3 mg/dl (8.6-10.4)
--- NOTE | 2018-03-13 17:20 | CP.PCM.PN ---
Subjective - Date & Time of Evaluation Date of Evaluation: 03/13/18 Time of Evaluation: 07:00 - Subjective Subjective: Pulmonary Follow up, Covering Dr. Gamez The patient was Seen and examined by me at the bedside, Events reviewed 72 Years old Female with PMHx OF Anxiety, Arthritis (L ANKLE; B/L HIP), Back Problems, Bronchitis, CAD, CHF, COPD, CVA, Dementia, Deep Vein Thrombosis, Emphysema, Fractures (Right Hip), HTN, Hypercholesterolemia, Hyperlipidemia, Malignancy (Breast CA left 4 yrs ago, patient in remission, last chemo was 3 years ago), Osteoporosis, Peripheral Edema, Chronic Kidney Disease, Schizophrenia, TIA and Anemia S/P blood transfusion Patient initially presents to ED on 12/09 with complaints of SOB associated with chest discomfort. Pulmonary consult called today for worsening SOB, Stat CXR was done, results reviewed Patient confortable, NAD VSS, Saturating well and not wheezing. Patient alert, awake, she is not any apparent distress Objective - Vital Signs/Intake and Output Vital Signs (last 24 hours): Temp Pulse Resp BP Pulse Ox 97.7 F 72 22 138/67 100 03/13/18 15:15 03/13/18 15:15 03/13/18 15:15 03/13/18 15:15 03/13/18 15:15 Intake and Output: 03/13/18 03/13/18 06:59 18:59 Intake Total 200 320 Balance 200 320 - Medications Medications: Current Medications Acetaminophen (Tylenol 325mg Tab) 650 mg PO Q6H PRN PRN Reason: Pain, Mild (1-3) Last Admin: 03/13/18 00:13 Dose: 650 mg Albuterol/Ipratropium (Duoneb 3 Mg/0.5 Mg (3 Ml) Ud) 3 ml INH RQ6 [facility] Last Admin: 03/13/18 13:16 Dose: Not Given Amlodipine Besylate (Norvasc) 10 mg PO QPM [facility] Last Admin: 03/12/18 17:20 Dose: 10 mg Aspirin (Aspirin Chewable) 81 mg PO DAILY [facility] Last Admin: 03/13/18 10:22 Dose: 81 mg Divalproex Sodium (Depakote Sprinkles) 250 mg PO Q8H [facility] Last Admin: 03/13/18 10:20 Dose: 250 mg Furosemide (Lasix) 20 mg PO BID [facility] Last Admin: 03/13/18 10:22 Dose: 20 mg Hydralazine HCl (Apresoline) 100 mg PO Q8 [facility] Last Admin: 03/13/18 13:24 Dose: 100 mg Lidocaine (Lidoderm) 1 ea TD DAILY [facility] Last Admin: 03/13/18 14:09 Dose: Not Given Lorazepam (Ativan) 1 mg PO Q8H PRN PRN Reason: Agitation Last Admin: 03/13/18 04:33 Dose: 1 mg Metoprolol Succinate (Toprol Xl) 50 mg PO DAILY [facility] Last Admin: 03/13/18 10:23 Dose: 50 mg Montelukast Sodium (Singulair) 10 mg PO DAILY [facility] Last Admin: 03/13/18 10:21 Dose: 10 mg Morphine Sulfate (Morphine) 2 mg IVP Q6 PRN PRN Reason: Pain, severe (8-10) Last Admin: 03/13/18 16:32 Dose: 2 mg Ondansetron HCl (Zofran Inj) 4 mg IVP Q4H PRN PRN Reason: Nausea/Vomiting Last Admin: 03/13/18 13:25 Dose: 4 mg Pantoprazole Sodium (Protonix Ec Tab) 40 mg PO DAILY [facility] Last Admin: 03/13/18 10:22 Dose: 40 mg Potassium Chloride (K-Dur 20 Meq Er Tab) 20 meq PO DAILY [facility] Last Admin: 03/13/18 10:23 Dose: 20 meq Prednisone (Prednisone Tab) 10 mg PO DAILY [facility] Last Admin: 03/13/18 10:22 Dose: 10 mg Ranolazine (Ranexa) 500 mg PO BID [facility] Last Admin: 03/13/18 10:21 Dose: 500 mg Tramadol HCl (Ultram) 50 mg PO Q8H PRN PRN Reason: Pain, moderate (4-7) Last Admin: 03/13/18 14:50 Dose: 50 mg Vitamin B Complex/Vit C/Folic Acid (Nephro-Karolyn) 1 tab PO 0800 [facility] Last Admin: 03/13/18 10:22 Dose: 1 tab Zolpidem Tartrate (Ambien) 5 mg PO HS PRN PRN Reason: Insomnia Last Admin: 03/13/18 00:07 Dose: 5 mg - Labs Labs: 03/13/18 14:17 03/13/18 14:17 PT 13.6 SECONDS (9.7-12.2) H 01/15/18 07:10 INR 1.2 01/15/18 07:10 APTT 34 SECONDS (21-34) 12/09/17 00:22 - Constitutional Appears: Well, Non-toxic - Head Exam Head Exam: ATRAUMATIC, NORMAL INSPECTION - Eye Exam Eye Exam: EOMI Pupil Exam: PERRL - Neck Exam Neck Exam: Full ROM - Respiratory Exam Respiratory Exam: Clear to Ausculation Bilateral, NORMAL BREATHING PATTERN - Cardiovascular Exam Cardiovascular Exam: REGULAR RHYTHM, RRR. absent: JVD - Extremities Exam Extremities Exam: Full ROM, Joint Swelling, Normal Capillary Refill. absent: Calf Tenderness - Back Exam Back Exam: absent: CVA tenderness (L), CVA tenderness (R) - Neurological Exam Neurological Exam: Alert, Awake, CN II-XII Intact Assessment and Plan (1) Interstitial lung disease Status: Acute (2) CHF exacerbation Status: Acute (3) COPD exacerbation Status: Acute - Assessment and Plan (Free Text) Assessment: Continue current management Continue nebulizer treatment 'Taper steroids PRN Diuretics
[2018-03-14] MEDS: Divalproex 125 mg Sprinkle Capsule PO SCH ×3 (01:18→18:08)
[2018-03-14] MEDS: Albuterol-Ipratrop 3 mg / 0.5 (3 ml) UD INH SCH ×4 (01:24→18:12)
[2018-03-14] MEDS ORDERED: Alum-Mag Hydrox-Simethicone Susp (30 mL) PO STA (06:31)
[2018-03-14] MEDS ORDERED: Pantoprazole 40 mg EC Tab PO ONE (07:42)
[2018-03-14] MEDS: Multivitamin Vitamin B Complex (Nephro-Vite) Tab PO SCH (08:09)
[2018-03-14] MEDS: Lidocaine 5% Patch TD SCH (09:27)
[2018-03-14] MEDS: Ranolazine 500 mg Extended Release Tablets PO SCH ×2 (09:27→18:08)
[2018-03-14] MEDS: Metoprolol Succinate 50 mg XL Tab PO SCH (09:27)
[2018-03-14] MEDS: Potassium Chloride 20 mEq ER Tab PO SCH (09:29)
[2018-03-14] MEDS: Pantoprazole 40 mg EC Tab PO SCH (12:03)
--- NOTE | 2018-03-14 12:24 | PN ---
DATE: 03/14/2018 SUBJECTIVE: I saw Kathy with her breathing treatment this morning, also telling me she is having some gas, and she wants a medicine for her gas. I gave her some Mylanta 30 mL one-time dose this morning. Otherwise, she is upset about still being here, she wants to go home, she does not want to be here anymore. MEDICATIONS: She is currently on Ambien, Apresoline, aspirin, Ativan, Depakote, DuoNeb, potassium, Lasix, Maalox or Mylanta, morphine, Nephro-Karolyn, Norvasc, prednisone, Protonix, Ranexa, Singulair, Toprol, Tylenol, Ultram, and Zofran. She is supposed to be off the morphine and Chari Hitchcock APN, ordered it, 2 mg PHYSICAL EXAMINATION: VITAL SIGNS: She has a 98 temperature, 77 pulse, 128/65 blood pressure, 20 respiratory rate, 96% O2 sat, nasal cannula. HEENT: Head is atraumatic and normocephalic. HEART Regular rate. LUNGS: Clear to auscultation with decreased breath sounds. ABDOMEN: Mildly distended, positive bowel sounds. Nontender. EXTREMITIES: With no edema. LABORATORY DATA: She has a 14.7 white count, 8.9 hemoglobin, 27.3 hematocrit, 217 platelets, 139 sodium, potassium 4.3, BUN 65, creatinine 1.4, GFR is 37, sugar is 122, calcium is 8.3, total bili 0.4, AST is 11, ALT is 20, alk phos 41, total protein is 4.9. ASSESSMENT AND PLAN: She is here for congestive heart failure, chronic obstructive pulmonary disease, renal insufficiency, and chronic pain. I am going to discontinue the morphine, especially at that high dose, call in Dr. Torres to evaluate her white count, do urinalysis, repeat the labs tomorrow. John Brown DO [facility]ITAL[facility]
[2018-03-14 16:53] LABS: HEMOGLOBIN 8.7 g/dL (11.0-16.0); MEAN CELL VOLUME 90.4 fL (81.0-99.0); MEAN CORPUSCULAR HEMOGLOBIN 29.1 pg (27.0-31.0); MEAN CORPUSCULAR HGB CONC 32.2 g/dL (33.0-37.0); MEAN PLATELET VOLUME 10.2 fL (7.2-11.7); RBC 2.97 Mil/uL (3.80-5.20); RED CELL DISTRIBUTION WIDTH 15.7 % (11.5-14.5); WHITE BLOOD COUNT 10.9 K/uL (4.8-10.8)
[2018-03-14 17:16] LABS: ALB/GLOB RATIO 1.2 (1.0-2.1); CALCIUM 8.6 mg/dl (8.6-10.4)
[2018-03-15] MEDS: Divalproex 125 mg Sprinkle Capsule PO SCH ×3 (01:02→17:55)
[2018-03-15] MEDS: Albuterol-Ipratrop 3 mg / 0.5 (3 ml) UD INH SCH ×5 (02:02→19:44)
[2018-03-15 07:26] LABS: HEMOGLOBIN 9.1 g/dL (11.0-16.0); MEAN CELL VOLUME 90.5 fL (81.0-99.0); MEAN CORPUSCULAR HEMOGLOBIN 30.5 pg (27.0-31.0); MEAN CORPUSCULAR HGB CONC 33.7 g/dL (33.0-37.0); MEAN PLATELET VOLUME 10.4 fL (7.2-11.7); RBC 2.99 Mil/uL (3.80-5.20); RED CELL DISTRIBUTION WIDTH 15.4 % (11.5-14.5); WHITE BLOOD COUNT 10.3 K/uL (4.8-10.8)
[2018-03-15 07:53] LABS: ALB/GLOB RATIO 1.3 (1.0-2.1); ALBUMIN 3.1 g/dL (3.5-5.0); CALCIUM 8.8 mg/dl (8.6-10.4)
[2018-03-15] MEDS: Multivitamin Vitamin B Complex (Nephro-Vite) Tab PO SCH (08:50)
[2018-03-15] MEDS: Ranolazine 500 mg Extended Release Tablets PO SCH ×2 (09:13→18:12)
[2018-03-15] MEDS: Potassium Chloride 20 mEq ER Tab PO SCH (09:13)
--- NOTE | 2018-03-15 09:13 | PN ---
DATE: 03/15/2018 SUBJECTIVE: I saw her resting comfortably in bed this morning. She is alert. She is calm. She is not yelling or screaming. She is talking quietly. She still wants to go home and see her dog and cat. MEDICATIONS: She is on Ambien, Apresoline, aspirin, Ativan, Depakote, DuoNebs, she is on a Duragesic patch now, which I think is making a difference, potassium, Lasix, Lidoderm, Nephro-Karolyn, Norvasc, Prednisone is down to 10, I will decrease it to 5, Protonix, Ranexa, Singulair, Toprol, Tylenol, Ultram and Zofran. PHYSICAL EXAMINATION: VITAL SIGNS: Temperature 98.9, 80 pulse, 130/68 blood pressure, 20 respiratory rate, 99% O2 sat on 2 L nasal cannula. HEENT: Head is atraumatic, normocephalic. Throat is moist. NECK: Supple. HEART: Regular rate. LUNGS: Decreased breath sounds, but clear. ABDOMEN: Soft and nontender. EXTREMITIES: No edema. I encouraged her to eat and get out of bed to chair. LABORATORY DATA: She has a 10.9 white count, 8.7 hemoglobin, 26.9 hematocrit with 189 platelet. She has 139 sodium, potassium 4.8, BUN 70, creatinine 1.4, GFR is 37, sugar is 144, calcium is 8.6, total bilirubin 0.4, AST is 18, ALT is 14, alkaline phosphatase 54, total protein 5.4. ASSESSMENT AND PLAN: Overall she is fairly stable. She is being seen by renal and pulmonary. I am glad she is on the Duragesic patch making a difference. I morphine, hopefully they will get her organized and get her to the facility or home with help. She is here for congestive heart failure, chronic obstructive pulmonary disease, chronic pain, renal insufficiency. John Brown DO [facility]
[2018-03-15] MEDS: Pantoprazole 40 mg EC Tab PO SCH (09:14)
[2018-03-15] MEDS: Metoprolol Succinate 50 mg XL Tab PO SCH (09:14)
[2018-03-15] MEDS: Lidocaine 5% Patch TD SCH (09:18)
--- NOTE | 2018-03-15 17:47 | CP.PCM.PN ---
Subjective - Date & Time of Evaluation Date of Evaluation: 03/15/18 Time of Evaluation: 08:00 - Subjective Subjective: afebrile alert nad Objective - Vital Signs/Intake and Output Vital Signs (last 24 hours): Temp Pulse Resp BP Pulse Ox 98.2 F 68 20 126/67 95 03/15/18 15:00 03/15/18 15:00 03/15/18 15:00 03/15/18 15:00 03/15/18 15:00 Intake and Output: 03/15/18 03/15/18 06:59 18:59 Intake Total 400 Balance 400 - Medications Medications: Current Medications Acetaminophen (Tylenol 325mg Tab) 650 mg PO Q6H PRN PRN Reason: Pain, Mild (1-3) Last Admin: 03/15/18 09:14 Dose: 650 mg Albuterol/Ipratropium (Duoneb 3 Mg/0.5 Mg (3 Ml) Ud) 3 ml INH RQ6 [facility] Last Admin: 03/15/18 14:01 Dose: Not Given Amlodipine Besylate (Norvasc) 10 mg PO QPM [facility] Last Admin: 03/14/18 18:08 Dose: 10 mg Aspirin (Aspirin Chewable) 81 mg PO DAILY [facility] Last Admin: 03/15/18 09:14 Dose: 81 mg Divalproex Sodium (Depakote Sprinkles) 250 mg PO Q8H [facility] Last Admin: 03/15/18 09:13 Dose: 250 mg Fentanyl (Duragesic) 1 patch TD Q72H [facility] Last Admin: 03/14/18 08:10 Dose: 1 patch Furosemide (Lasix) 20 mg PO BID [facility] Last Admin: 03/15/18 09:14 Dose: 20 mg Hydralazine HCl (Apresoline) 100 mg PO Q8 [facility] Last Admin: 03/15/18 13:40 Dose: 100 mg Lidocaine (Lidoderm) 1 ea TD DAILY [facility] Last Admin: 03/15/18 09:18 Dose: 1 ea Lorazepam (Ativan) 1 mg PO Q8H PRN PRN Reason: Agitation Last Admin: 03/14/18 12:14 Dose: 1 mg Metoprolol Succinate (Toprol Xl) 50 mg PO DAILY [facility] Last Admin: 03/15/18 09:14 Dose: 50 mg Montelukast Sodium (Singulair) 10 mg PO DAILY [facility] Last Admin: 03/15/18 09:13 Dose: 10 mg Ondansetron HCl (Zofran Inj) 4 mg IVP Q4H PRN PRN Reason: Nausea/Vomiting Last Admin: 03/14/18 05:12 Dose: 4 mg Pantoprazole Sodium (Protonix Ec Tab) 40 mg PO DAILY [facility] Last Admin: 03/15/18 09:14 Dose: 40 mg Potassium Chloride (K-Dur 20 Meq Er Tab) 20 meq PO DAILY [facility] Last Admin: 03/15/18 09:13 Dose: 20 meq Prednisone (Prednisone Tab) 5 mg PO DAILY [facility] Last Admin: 03/15/18 09:13 Dose: 5 mg Ranolazine (Ranexa) 500 mg PO BID [facility] Last Admin: 03/15/18 09:13 Dose: 500 mg Tramadol HCl (Ultram) 50 mg PO Q8H PRN PRN Reason: Pain, moderate (4-7) Last Admin: 03/15/18 13:40 Dose: 50 mg Vitamin B Complex/Vit C/Folic Acid (Nephro-Karolyn) 1 tab PO 0800 [facility] Last Admin: 03/15/18 08:50 Dose: 1 tab Zolpidem Tartrate (Ambien) 5 mg PO HS PRN PRN Reason: Insomnia Last Admin: 03/13/18 00:07 Dose: 5 mg - Labs Labs: 03/15/18 07:12 03/15/18 07:12 PT 13.6 SECONDS (9.7-12.2) H 01/15/18 07:10 INR 1.2 01/15/18 07:10 APTT 34 SECONDS (21-34) 12/09/17 00:22 - Constitutional Appears: Confused, Cachectic, Chronically Ill - Head Exam Head Exam: NORMOCEPHALIC - Eye Exam Eye Exam: PERRL. absent: Scleral icterus - ENT Exam ENT Exam: Mucous Membranes Dry - Neck Exam Neck Exam: absent: Lymphadenopathy - Respiratory Exam Respiratory Exam: Decreased Breath Sounds - Cardiovascular Exam Cardiovascular Exam: REGULAR RHYTHM - GI/Abdominal Exam GI & Abdominal Exam: Distended, Soft - Rectal Exam Rectal Exam: Deferred - Exam Exam: NORMAL INSPECTION Assessment and Plan (1) Non-ST elevated myocardial infarction (non-STEMI) Status: Acute (2) Peripheral visual field defect of both eyes Status: Acute (3) UTI (urinary tract infection) Status: Acute (4) CHF (congestive heart failure) Status: Chronic - Assessment and Plan (Free Text) Assessment: cont rx as per plan
[2018-03-16] MEDS: Albuterol-Ipratrop 3 mg / 0.5 (3 ml) UD INH SCH ×4 (01:30→19:40)
[2018-03-16] MEDS: Divalproex 125 mg Sprinkle Capsule PO SCH ×3 (02:09→17:27)
[2018-03-16] MEDS: Multivitamin Vitamin B Complex (Nephro-Vite) Tab PO SCH (08:16)
--- NOTE | 2018-03-16 09:27 | CP.PCM.PN ---
Subjective - Date & Time of Evaluation Date of Evaluation: 03/16/18 Time of Evaluation: 09:27 - Subjective Subjective: Pulmonary Follow up, Covering Dr. Gamez The patient was Seen and examined by me at the bedside, Events reviewed Patient confortable, NAD Patient states breathing much improved VSS, Saturating well and not wheezing. Patient alert, awake, she is not any apparent distress Objective - Vital Signs/Intake and Output Vital Signs (last 24 hours): Temp Pulse Resp BP Pulse Ox 98.3 F 86 18 155/67 H 97 03/16/18 08:42 03/16/18 08:42 03/16/18 08:42 03/16/18 08:42 03/16/18 08:42 Intake and Output: 03/16/18 03/16/18 06:59 18:59 Intake Total 350 Output Total 250 Balance 100 - Medications Medications: Current Medications Acetaminophen (Tylenol 325mg Tab) 650 mg PO Q6H PRN PRN Reason: Pain, Mild (1-3) Last Admin: 03/15/18 20:04 Dose: 650 mg Albuterol/Ipratropium (Duoneb 3 Mg/0.5 Mg (3 Ml) Ud) 3 ml INH RQ6 [facility] Last Admin: 03/16/18 08:27 Dose: Not Given Amlodipine Besylate (Norvasc) 10 mg PO QPM [facility] Last Admin: 03/15/18 18:10 Dose: 10 mg Aspirin (Aspirin Chewable) 81 mg PO DAILY [facility] Last Admin: 03/15/18 09:14 Dose: 81 mg Divalproex Sodium (Depakote Sprinkles) 250 mg PO Q8H [facility] Last Admin: 03/16/18 08:16 Dose: 250 mg Fentanyl (Duragesic) 1 patch TD Q72H [facility] Last Admin: 03/16/18 08:16 Dose: 1 patch Furosemide (Lasix) 20 mg PO BID [facility] Last Admin: 03/15/18 18:11 Dose: 20 mg Hydralazine HCl (Apresoline) 100 mg PO Q8 [facility] Last Admin: 03/16/18 06:17 Dose: 100 mg Lidocaine (Lidoderm) 1 ea TD DAILY [facility] Last Admin: 03/15/18 09:18 Dose: 1 ea Lorazepam (Ativan) 1 mg PO Q8H PRN PRN Reason: Agitation Last Admin: 03/15/18 20:55 Dose: 1 mg Metoprolol Succinate (Toprol Xl) 50 mg PO DAILY [facility] Last Admin: 03/15/18 09:14 Dose: 50 mg Montelukast Sodium (Singulair) 10 mg PO DAILY [facility] Last Admin: 03/15/18 09:13 Dose: 10 mg Ondansetron HCl (Zofran Inj) 4 mg IVP Q4H PRN PRN Reason: Nausea/Vomiting Last Admin: 03/14/18 05:12 Dose: 4 mg Pantoprazole Sodium (Protonix Ec Tab) 40 mg PO DAILY [facility] Last Admin: 03/15/18 09:14 Dose: 40 mg Potassium Chloride (K-Dur 20 Meq Er Tab) 20 meq PO DAILY [facility] Last Admin: 03/15/18 09:13 Dose: 20 meq Prednisone (Prednisone Tab) 5 mg PO DAILY [facility] Last Admin: 03/15/18 09:13 Dose: 5 mg Ranolazine (Ranexa) 500 mg PO BID [facility] Last Admin: 03/15/18 18:12 Dose: 500 mg Vitamin B Complex/Vit C/Folic Acid (Nephro-Karolyn) 1 tab PO 0800 [facility] Last Admin: 03/16/18 08:16 Dose: 1 tab Zolpidem Tartrate (Ambien) 5 mg PO HS PRN PRN Reason: Insomnia Last Admin: 03/13/18 00:07 Dose: 5 mg - Labs Labs: 03/15/18 07:12 03/15/18 07:12 PT 13.6 SECONDS (9.7-12.2) H 01/15/18 07:10 INR 1.2 01/15/18 07:10 APTT 34 SECONDS (21-34) 12/09/17 00:22 - Head Exam Head Exam: ATRAUMATIC, NORMAL INSPECTION - Eye Exam Eye Exam: EOMI, Normal appearance. absent: Conjunctival injection Pupil Exam: NORMAL ACCOMODATION, PERRL - Neck Exam Neck Exam: Full ROM - Respiratory Exam Respiratory Exam: Clear to Ausculation Bilateral, NORMAL BREATHING PATTERN. absent: Accessory Muscle Use, Rhonchi, Wheezes, Respiratory Distress - Cardiovascular Exam Cardiovascular Exam: REGULAR RHYTHM, RRR, +S1, +S2. absent: JVD - GI/Abdominal Exam GI & Abdominal Exam: Soft, Normal Bowel Sounds - Extremities Exam Extremities Exam: Full ROM, Normal Capillary Refill. absent: Calf Tenderness, Pedal Edema - Neurological Exam Neurological Exam: Alert, Awake, CN II-XII Intact Assessment and Plan (1) Interstitial lung disease Status: Acute (2) CHF exacerbation Status: Acute (3) COPD exacerbation Status: Acute - Assessment and Plan (Free Text) Assessment: Continue current management Continue nebulizer treatment Taper steroids PRN Diuretics
--- NOTE | 2018-03-16 10:08 | PN ---
DATE: 03/15/2018 SUBJECTIVE: I saw Kathy sitting comfortably in bed. She is alert. She is maybe a little bit lethargic. She has been on Duragesic patch now for about 2 to 3 days, and thinking may be that it is too strong, see if I could cut it into half. She is on Ambien, Apresoline, aspirin, Ativan, Depakote, DuoNeb, Duragesic patch, potassium, Lasix, Lidoderm, Nephro-Karolyn, Norvasc, prednisone, Protonix, Ranexa, Singulair, Toprol, Tylenol, Ultram, and Zofran. PHYSICAL EXAMINATION: VITAL SIGNS: Temperature 98.3, pulse 79, blood pressure 149/73, respiratory rate 20, O2 saturations 97% on 2 L nasal cannula. HEENT: Head is atraumatic, normocephalic. GENERAL: She is alert. She is slow to talk but she is talking. She tells me she is tired. HEART: Regular rate. LUNGS: Decreased breath sounds. ABDOMEN: Soft. EXTREMITIES: No edema. LABORATORY DATA: She had a 10.3 white count, 9.1 hemoglobin, 191 platelets on 03/15/2018. Sodium 140, potassium is 4.8, BUN is 71, creatinine 1.2. GFR is 32. Sugar is 107. Calcium is 8.8. AST is 16, ALT is 15, alkaline phosphatase 55, total protein is 5.5. She has been seen by infectious disease. I am going to see her if I could decrease her NSAIDs and even decrease her Duragesic patch to 12 and see if we could get her kidney function better and less lethargic. She is here for CHF, COPD, chronic pain, renal insufficiency. I am waiting for licensed social worker, case management, and insurance company to get arrangements for safe discharge. John Brown DO
[2018-03-16] MEDS: Pantoprazole 40 mg EC Tab PO SCH (10:38)
[2018-03-16] MEDS: Potassium Chloride 20 mEq ER Tab PO SCH (10:38)
[2018-03-16] MEDS: Metoprolol Succinate 50 mg XL Tab PO SCH (10:38)
[2018-03-16] MEDS: Ranolazine 500 mg Extended Release Tablets PO SCH ×2 (10:38→17:27)
[2018-03-16] MEDS: Lidocaine 5% Patch TD SCH (10:42)
[2018-03-17] MEDS: Divalproex 125 mg Sprinkle Capsule PO SCH ×3 (01:50→16:26)
[2018-03-17] MEDS: Albuterol-Ipratrop 3 mg / 0.5 (3 ml) UD INH SCH ×4 (02:49→20:45)
[2018-03-17] MEDS: Multivitamin Vitamin B Complex (Nephro-Vite) Tab PO SCH (08:20)
[2018-03-17] MEDS: Pantoprazole 40 mg EC Tab PO SCH (10:52)
[2018-03-17] MEDS: Metoprolol Succinate 50 mg XL Tab PO SCH (10:52)
[2018-03-17] MEDS: Potassium Chloride 20 mEq ER Tab PO SCH (10:52)
--- NOTE | 2018-03-17 10:52 | PN ---
DATE: 03/17/2018 SUBJECTIVE: I saw her this morning. She is so upset about everything. Little bit quieter since she has been on the Duragesic patch. She is off the tramadol and Toradol. MEDICATIONS: She is on Ambien, Apresoline, aspirin, Ativan, Depakote, DuoNeb, Duragesic patch, K-Dur, Lasix, Lidoderm, Nephro-Karolyn, Norvasc, prednisone, Protonix, Ranexa, Singulair, Toprol, Tylenol, Zofran. PHYSICAL EXAMINATION: VITAL SIGNS: She has a 97.5 temp, 83 pulse, 174/73 blood pressure, 20 respiratory rate, 97% O2 saturation on 3 L. HEENT: Head is atraumatic, normocephalic. HEART: Regular rate. LUNGS: Decreased breath sounds, but clear. ABDOMEN: Soft. EXTREMITIES: No edema. LABORATORY DATA: Last labs on 03/15/2018. ASSESSMENT AND PLAN: We will continue with aggressive treatment and care. Awaiting for Medicare and social media job titles and case management to get her out of here, I understand Medicare lost all the paper works Continue with aggressive treatment and care. She is here for congestive heart failure, chronic obstructive pulmonary disease, chronic pain, renal insufficiency. John Brown DO MTDD
[2018-03-17] MEDS: Lidocaine 5% Patch TD SCH (10:54)
[2018-03-17] MEDS: Ranolazine 500 mg Extended Release Tablets PO SCH ×2 (10:54→17:33)
--- NOTE | 2018-03-17 12:55 | CP.PCM.PN ---
Subjective - Date & Time of Evaluation Date of Evaluation: 03/17/18 Time of Evaluation: 12:52 - Subjective Subjective: Pulmonary Follow up, Covering Dr. Gamez The patient was Seen and examined by me at the bedside, Events reviewed Patient states breathing much improved Breathing unlabored, in no apparent acute distress. Sat on 3L Nasal cannula 95-97%. Denies any chest pain, SOB or Palpitations No wheezing Afebrile Continue nebulizer treatment with Albuterol/Ipratropium (Duoneb) INH RQ6 [facility] Taper steroids, Patient currently on Prednisone 5 mg PO DAILY Continue Singulair 10 mg PO DAILY [facility] Continue PO Diuretics with Lasix) 20 mg PO BID, No evidence of fluid overload on Exam today Objective - Vital Signs/Intake and Output Vital Signs (last 24 hours): Temp Pulse Resp BP Pulse Ox 97.5 F L 70 20 168/74 H 97 03/16/18 23:45 03/17/18 06:00 03/17/18 06:00 03/17/18 10:53 03/17/18 06:00 - Medications Medications: Current Medications Acetaminophen (Tylenol 325mg Tab) 650 mg PO Q6H PRN PRN Reason: Pain, Mild (1-3) Last Admin: 03/16/18 16:02 Dose: 650 mg Albuterol/Ipratropium (Duoneb 3 Mg/0.5 Mg (3 Ml) Ud) 3 ml INH RQ6 [facility] Last Admin: 03/17/18 08:37 Dose: Not Given Amlodipine Besylate (Norvasc) 10 mg PO QPM [facility] Last Admin: 03/16/18 17:27 Dose: 10 mg Aspirin (Aspirin Chewable) 81 mg PO DAILY [facility] Last Admin: 03/17/18 10:53 Dose: 81 mg Divalproex Sodium (Depakote Sprinkles) 250 mg PO Q8H [facility] Last Admin: 03/17/18 08:20 Dose: 250 mg Fentanyl (Duragesic) 1 patch TD Q72H [facility] Last Admin: 03/16/18 08:16 Dose: 1 patch Furosemide (Lasix) 20 mg PO BID [facility] Last Admin: 03/17/18 10:53 Dose: 20 mg Hydralazine HCl (Apresoline) 100 mg PO Q8 [facility] Last Admin: 03/17/18 06:03 Dose: 100 mg Lidocaine (Lidoderm) 1 ea TD DAILY [facility] Last Admin: 03/17/18 10:54 Dose: 1 ea Lorazepam (Ativan) 1 mg PO Q8H PRN PRN Reason: Agitation Last Admin: 03/16/18 13:40 Dose: 1 mg Metoprolol Succinate (Toprol Xl) 50 mg PO DAILY [facility] Last Admin: 03/17/18 10:52 Dose: 50 mg Montelukast Sodium (Singulair) 10 mg PO DAILY [facility] Last Admin: 03/17/18 10:52 Dose: 10 mg Ondansetron HCl (Zofran Inj) 4 mg IVP Q4H PRN PRN Reason: Nausea/Vomiting Last Admin: 03/16/18 14:59 Dose: 4 mg Pantoprazole Sodium (Protonix Ec Tab) 40 mg PO DAILY [facility] Last Admin: 03/17/18 10:52 Dose: 40 mg Potassium Chloride (K-Dur 20 Meq Er Tab) 20 meq PO DAILY [facility] Last Admin: 03/17/18 10:52 Dose: 20 meq Prednisone (Prednisone Tab) 5 mg PO DAILY [facility] Last Admin: 03/17/18 10:53 Dose: 5 mg Ranolazine (Ranexa) 500 mg PO BID [facility] Last Admin: 03/17/18 10:54 Dose: 500 mg Vitamin B Complex/Vit C/Folic Acid (Nephro-Karolyn) 1 tab PO 0800 [facility] Last Admin: 03/17/18 08:20 Dose: 1 tab Zolpidem Tartrate (Ambien) 5 mg PO HS PRN PRN Reason: Insomnia Last Admin: 03/16/18 21:17 Dose: 5 mg - Labs Labs: 03/15/18 07:12 03/15/18 07:12 PT 13.6 SECONDS (9.7-12.2) H 01/15/18 07:10 INR 1.2 01/15/18 07:10 APTT 34 SECONDS (21-34) 12/09/17 00:22 - Constitutional Appears: Well, Non-toxic - Head Exam Head Exam: ATRAUMATIC, NORMAL INSPECTION - ENT Exam ENT Exam: Mucous Membranes Moist, Normal Exam - Neck Exam Neck Exam: Normal Inspection - Respiratory Exam Respiratory Exam: Decreased Breath Sounds, NORMAL BREATHING PATTERN. absent: Accessory Muscle Use, Chest Wall Tenderness, Prolonged Expiratory Phase, Rales, Rhonchi, Wheezes - Cardiovascular Exam Cardiovascular Exam: REGULAR RHYTHM, RRR, +S1, +S2. absent: JVD - GI/Abdominal Exam GI & Abdominal Exam: Soft, Normal Bowel Sounds. absent: Distended, Firm, Guarding, Rigid - Extremities Exam Extremities Exam: Full ROM, Normal Capillary Refill, Normal Inspection. absent : Calf Tenderness, Joint Swelling, Pedal Edema - Back Exam Back Exam: absent: CVA tenderness (L), CVA tenderness (R) - Neurological Exam Neurological Exam: Alert, Awake, CN II-XII Intact, Motor Sensory Deficit, Normal Gait Assessment and Plan (1) Interstitial lung disease Status: Acute (2) CHF exacerbation Status: Acute (3) COPD exacerbation Status: Acute - Assessment and Plan (Free Text) Assessment: Continue current management Continue nebulizer treatment with Albuterol/Ipratropium (Duoneb) INH RQ6 [facility] Taper steroids, Patient currently on Prednisone 5 mg PO DAILY Continue Singulair 10 mg PO DAILY [facility] Continue PO Diuretics with Lasix) 20 mg PO BID, No evidence of fluid overload on Exam today
[2018-03-18] MEDS: Divalproex 125 mg Sprinkle Capsule PO SCH ×4 (00:46→18:33)
[2018-03-18] MEDS: Albuterol-Ipratrop 3 mg / 0.5 (3 ml) UD INH SCH ×4 (01:23→20:02)
[2018-03-18] MEDS: Multivitamin Vitamin B Complex (Nephro-Vite) Tab PO SCH (08:19)
[2018-03-18] MEDS: Lidocaine 5% Patch TD SCH (09:23)
[2018-03-18] MEDS: Pantoprazole 40 mg EC Tab PO SCH (09:23)
[2018-03-18] MEDS: Metoprolol Succinate 50 mg XL Tab PO SCH (09:23)
[2018-03-18] MEDS: Ranolazine 500 mg Extended Release Tablets PO SCH ×3 (09:24→18:33)
[2018-03-18] MEDS: Potassium Chloride 20 mEq ER Tab PO SCH (09:25)
--- NOTE | 2018-03-18 15:03 | PN ---
DATE: 03/18/2018 SUBJECTIVE: I saw Kathy resting comfortably in bed. She a little bit and now she is resting in bed. MEDICATIONS: She is currently on Ambien, Apresoline, aspirin, Ativan, Depakote, DuoNeb, Duragesic patch, potassium, Lasix, Lidoderm, Nephro-Karolyn, Norvasc, prednisone. I am going to continue that for few more days. Protonix, Ranexa, Singulair, Toprol, Tylenol, and Zofran. LABORATORY DATA: Last labs on the , she did fairly well. BUN 71, creatinine 1.6. ASSESSMENT AND PLAN: She is being seen by Infectious Disease and Renal. We are still awaiting for her Medicare and social workers and Case Management to organize her discharge. We will continue with aggressive treatment and care. I think the Duragesic patch is helping her with her pain. I will continue with aggressive treatment and care congestive heart failure, chronic obstructive pulmonary disease, renal insufficiency. John Brown DO [facility]
[2018-03-19] MEDS: Divalproex 125 mg Sprinkle Capsule PO SCH ×2 (00:12→09:47)
[2018-03-19] MEDS: Albuterol-Ipratrop 3 mg / 0.5 (3 ml) UD INH SCH ×2 (02:23→20:19)
[2018-03-19 06:41] LABS: HEMOGLOBIN 10.5 g/dL (11.0-16.0); MEAN CELL VOLUME 88.4 fL (81.0-99.0); MEAN CORPUSCULAR HEMOGLOBIN 29.5 pg (27.0-31.0); MEAN CORPUSCULAR HGB CONC 33.4 g/dL (33.0-37.0); MEAN PLATELET VOLUME 9.9 fL (7.2-11.7); RBC 3.55 Mil/uL (3.80-5.20); RED CELL DISTRIBUTION WIDTH 15.3 % (11.5-14.5); WHITE BLOOD COUNT 15.7 K/uL (4.8-10.8)
[2018-03-19 06:59] LABS: ALB/GLOB RATIO 1.4 (1.0-2.1); ALBUMIN 3.1 g/dL (3.5-5.0); CALCIUM 8.5 mg/dl (8.6-10.4)
[2018-03-19] MEDS: Multivitamin Vitamin B Complex (Nephro-Vite) Tab PO SCH (08:11)
[2018-03-19] MEDS: Ranolazine 500 mg Extended Release Tablets PO SCH ×2 (09:47→17:36)
[2018-03-19] MEDS: Lidocaine 5% Patch TD SCH (09:48)
[2018-03-19] MEDS: Potassium Chloride 20 mEq ER Tab PO SCH (09:48)
[2018-03-19] MEDS: Pantoprazole 40 mg EC Tab PO SCH (09:50)
[2018-03-19] MEDS: Metoprolol Succinate 50 mg XL Tab PO SCH (09:52)
--- NOTE | 2018-03-19 12:16 | PN ---
DATE: 03/19/2018 SUBJECTIVE: She is now yelling, no matter what, standing in front of her. I believe, the Duragesic patch is too strong on 25 mg. She has not been getting out of bed. I tried to get the 12 mg, but apparently this hospital pharmacy does not have that on formulary. I am going to stop that and go back to the morphine 1 mg every 3 hours p.r.n. for pain. Pain management did not give me much help. She is having abdominal pain and recheck a CAT scan of pelvis. She is now dealing with a sacral ulcer. I will call wound care to take a look at that. She does not get out of bed. She does not eat much. We will have licensed social worker and case management as far as getting her discharged, as it is 100 days right now. MEDICATIONS: She is on Ambien, Apresoline, aspirin, Ativan, Depakote, DuoNeb, potassium, Lasix, Lidoderm, morphine now, Nephro-Karolyn, Norvasc, prednisone, Protonix, Ranexa, Singulair, Toprol, Tylenol, Zofran. We are also going to discontinue the prednisone. ASSESSMENT AND PLAN: I am trying to check her labs to see how her kidney functions are doing, she refused this. I asked her to please do it. Last labs on 03/15/2018. She was seen by Pulmonary and Infectious Disease over the weekend. Hope we get a blood test, so we could get a good look at her kidney function. She has congestive heart failure, chronic obstructive pulmonary disease, renal insufficiency, chronic pain. Anticipate some kind of placement . It has been 100 days. Waiting for case management and licensed social worker to find out a safe place for her to be discharged. John Brown DO MTDD
--- NOTE | 2018-03-19 18:03 | PN ---
DATE: 03/19/2018 SUBJECTIVE: The patient is referred for the consult, has been not seen for quite a while. The patient continues to scream, very agitated, anxious, verbally abusive. As talked before, the patient has been taking Ativan 1 mg every 8 p.r.n. and is getting regularly and seems to be more confused. The patient also has Ambien p.r.n. and Depakote 250 mg b.i.d. The patient continues to scream at the top of her voice disturbing other residents. The patient will be moved to a four-bedded room for more monitoring. She still cannot walk. The patient awaiting completion of her Medicaid. According to the nurse, her Medicaid papers were misplaced and needs to reapply again. She is on morphine right now for pain. The patient is drowsy and more confused from the last evaluation. OBJECTIVE: VITAL SIGNS: Temperature is 97.6, pulse 83, blood pressure is 103/63, respirations 20, and oxygen saturations 97% with a nasal cannula. REVIEW OF SYSTEMS: CONSTITUTIONAL: The patient is drowsy, but verbal, was asking for coffee. She is in the four-bedded room on [address], more confused compared to before and feeling weak. The patient is least persistent to go home, but the patient cannot walk. SKIN: No diaphoresis. HEENT: Still hard of hearing. No headache. NECK: Supple. RESPIRATORY: No dyspnea. CARDIOVASCULAR: No chest pain. GASTROINTESTINAL: Appetite is still variable. No nausea. No vomiting. EXTREMITIES: Gait is unsteady. MUSCULOSKELETAL: Generalized weakness, the patient seems to be weak. NEUROLOGICAL: Alert and more confused. Oriented to place and person. GENITOURINARY: No dysuria. MENTAL STATUS EXAMINATION: Elderly female, appears weak, frail, oriented x2. Hard of hearing. Mood is still irritable and labile. Affect is reactive. Speech is spontaneous. Thought process more confused. Thought content, no psychosis. No suicidal or homicidal ideation. Attention and memory seemed to be limited. Insight and judgment limited. Impulse control is guarded at this time. IMPRESSION: History of delirium secondary to exacerbation of chronic obstructive pulmonary disease as well as dementia with mood changes, mood disorder secondary to medical problems, history of chronic obstructive pulmonary disease, congestive heart failure, gait dysfunction. PLAN AND RECOMMENDATIONS : The patient is seen, meds reviewed. We will try to reduce her medication. We will discontinue the Ambien p.r.n. as Ambien can cause more confusion in the elderly. We will discontinue the Ativan p.r.n. and we will start to use Depakote p.r.n. We will put her on Xanax which she had before 0.25 mg b.i.d. and 0.5 at bedtime. The patient's Xanax can be held if the patient is drowsy. The patient awaiting completion of guardianship. At this time, she can go home. The patient also can sign herself out. As she has increasing periods of confusion, the patient will need 24 hours of care and will discharge to home. The patient may eventually need [facility] placement due to increasing debility and confusion. Demetrius Burdick MD MTDD
[2018-03-20] MEDS: Albuterol-Ipratrop 3 mg / 0.5 (3 ml) UD INH SCH ×4 (01:40→19:27)
--- NOTE | 2018-03-20 07:38 | PN ---
DATE: 03/20/2018 SUBJECTIVE: I saw her resting comfortably in room 560. They moved her from the sixth floor to the fifth floor. She is alert. She does not want to be here anymore. She wants to be at home with the dog and cat, awaiting for Medicare, case management, and social service to help us with that. She is currently on hydralazine, aspirin, albuterol, potassium replacement, Lasix, Lidoderm, morphine. I am trying to get her off Nephro-Karolyn, Norvasc. I am going to stop the prednisone, pantoprazole, Ranexa, Singulair, metoprolol, Tylenol, Xanax, and Zofran. PHYSICAL EXAMINATION: GENERAL: She is alert. She is miserable. She does not want to be here. VITAL SIGNS: She has a 97.9, temperature, 92 pulse, 135/65 blood pressure, 20 respiratory rate, 99% O2 sat on room air. HEENT: Atraumatic, normocephalic. HEART: Regular rate. LUNGS: Decreased breath sounds but clear. ABDOMEN: Soft. EXTREMITIES: No edema. LABORATORY DATA: On checking her labs, she has a 15.7 white count, it bumped up from , hemoglobin 10.5, hematocrit 31.3, platelets are 207,000. Also 139 sodium, potassium is 3, replace potassium, BUN of 58, creatinine 1.4 better. GFR is 37, sugar is 71, calcium is 8.5, total bilirubin is 0.8, AST is 17, ALT is 29, alk phos is 50. ASSESSMENT AND PLAN: We will continue aggressive treatment and care. She has congestive heart failure, chronic obstructive pulmonary disease, chronic pain, renal insufficiency, low potassium, and we are awaiting for placement. John Brown DO MTDJeaneth
[2018-03-20] MEDS ORDERED: Iodixanol 320 MG/ML 100 ML BOTTLE IV ONE (08:46)
[2018-03-20] MEDS ORDERED: Potassium Chloride 20 mEq ER Tab PO SCH (10:00)
[2018-03-20] MEDS: Ranolazine 500 mg Extended Release Tablets PO SCH ×2 (10:55→18:42)
[2018-03-20] MEDS: Pantoprazole 40 mg EC Tab PO SCH (10:55)
[2018-03-20] MEDS: Lidocaine 5% Patch TD SCH (11:19)
[2018-03-20] MEDS: Multivitamin Vitamin B Complex (Nephro-Vite) Tab PO SCH (11:22)
[2018-03-20] MEDS: Metoprolol Succinate 50 mg XL Tab PO SCH (11:27)
[2018-03-20 11:32] LABS: HEMOGLOBIN 9.5 g/dL (11.0-16.0); MEAN CELL VOLUME 89.2 fL (81.0-99.0); MEAN CORPUSCULAR HEMOGLOBIN 29.2 pg (27.0-31.0); MEAN CORPUSCULAR HGB CONC 32.7 g/dL (33.0-37.0); MEAN PLATELET VOLUME 10.1 fL (7.2-11.7); RBC 3.24 Mil/uL (3.80-5.20); RED CELL DISTRIBUTION WIDTH 15.7 % (11.5-14.5); WHITE BLOOD COUNT 19.8 K/uL (4.8-10.8)
[2018-03-20 11:48] LABS: ALB/GLOB RATIO 1.4 (1.0-2.1); ALBUMIN 3.2 g/dL (3.5-5.0); CALCIUM 8.3 mg/dl (8.6-10.4)
--- NOTE | 2018-03-20 12:46 | CT ---
PROCEDURE: CT Abdomen and Pelvis without intravenous contrast HISTORY: Abd Pain COMPARISON: Noncontrast Abdomen and Pelvis CT 01/29/2018, Chest CT 03/05/2018. TECHNIQUE: Helical CT of the abdomen and pelvis was performed without oral or intravenous contrast as per referring physician request. Contrast dose: None- patient reports allergy to iodinated contrast material. Radiation dose: Total exam DLP = 243.55 mGy-cm. This CT exam was performed using one or more of the following dose reduction techniques: Automated exposure control, adjustment of the mA and/or kV according to patient size, and/or use of iterative reconstruction technique. FINDINGS: The lack of both oral and intravenous contrast agents limits this examination significantly. LOWER THORAX: Diminished bilateral pleural effusions, minimal the right and mild on the left. Fibrotic pulmonary changes are reiterated limited infiltrate or dense fibrosis present the anterior right middle lobe base. Bilateral basilar dependent airspace disease appreciated diminished. Cardiomegaly reiterated. LIVER: The homogeneous appearing liver appears stable. GALLBLADDER AND BILE DUCTS: Gallbladder is rather distended but without prominent pericholecystic fluid collection or cholelithiasis demonstrated. PANCREAS: Unremarkable. No gross lesion or ductal dilatation. SPLEEN: Unremarkable. ADRENALS: Unremarkable. No mass. KIDNEYS AND URETERS: No interval obstructive uropathy. Vascular calcifications are identified both at intra renal as well as extra renal arterial distribution. Stable 2.1 cm right renal cyst with hyper dense cyst likely present once again 8 mm size at the upper midpole left kidney. VASCULATURE: An atherosclerotic nonaneurysmal abdominal aorta is identified. Bilateral wallstents reiterated at the common and external iliac arteries once again. BOWEL: The stomach is partially decompressed with limited retained food in the lumen, limited in evaluation. The questioned small bowel obstructive pattern appears to have resolved however there is diffuse mural thickening throughout the colon in a pattern suggestive of pancolitis. Right hemicolon appears more affected than the left. APPENDIX: Unremarkable. Normal appendix. PERITONEUM: Mild pelvic ascites. No free intraperitoneal gas. LYMPH NODES: Unremarkable. No enlarged lymph nodes. BLADDER: Urinary bladder appears nonfocal but is partially obscured by right total hip replacement hardware. REPRODUCTIVE: Uterus again obscured by artifact from right total hip replacement hardware. BONES: Right total hip replacement hardware reiterated. Old healed L1 compression fracture reiterated. OTHER FINDINGS: None. IMPRESSION: 1. Diffuse colonic mural thickening suggests pancolitis without definite abscess or free intrarenal gas collection appreciated. Right hemicolon appears more affected than the left. Mild pelvic ascites. No definitive abscess. Lack of contrast limits interpretation. 2. Apparent resolution of prior early small-bowel ileus or obstruction. 3. Bilateral renal right kidney with complex cyst or nodule exophytic off the lower pole left kidney once again. 4. Additional findings as discussed above.
--- NOTE | 2018-03-20 16:08 | PN ---
DATE: 03/20/2018 SUBJECTIVE: The patient seen in her room, irritable as usual. The patient was screaming "they lost my phone." The patient actually misplaced her phone. Today she has been very disrupted in the unit, screaming and complaining of abdominal pain. REVIEW OF SYSTEM: CONSTITUTIONAL: The patient is alert, but still with periods of confusion. Seen in her room. Very somatic. SKIN: No diaphoresis. HEENT: Hard of hearing. No headache. NECK: Supple. RESPIRATORY: No dyspnea. CARDIOVASCULAR: No chest pain. GASTROINTESTINAL: Complains of abdominal pain. The patient is on morphine. May be constipated. PHYSICAL EXAMINATION VITAL SIGNS: Temperature is 98, pulse rate 95, blood pressure is 128/58, respirations 18, O2 saturation 95% on nasal cannula. GENERAL: The patient noted to have last had food in her room. EXTREMITIES: Gait is unsteady. MUSCULOSKELETAL: Feels weak. NEUROLOGIC: Alert with periods of confusion, MENTAL STATUS EXAMINATION: Elderly female who looks ate in her room, anxious, somatic, irritable, confused. Speech is slow. Affect is constricted. Thought process is confused at times. Thought content, no gross psychosis. The patient is complaining she lost her phone. No paranoia. No suicidal ideation. Attention is limited. Insight and judgment limited. Impulse control is guarded at this time. IMPRESSION: Delirium secondary to exacerbation of chronic obstructive pulmonary disease and dementia with mood changes. PLAN AND RECOMMENDATION: The patient is seen, meds reviewed. Continue Xanax as ordered. The patient was taking Depakote and Ambien. Continue treatment plan as outlined. The patient is awaiting completion of Medicaid. Demetrius Burdick MD [facility]
[2018-03-20] MEDS ORDERED: Potassium Chloride 20 mEq ER Tab PO ONE (23:39)
[2018-03-21] MEDS: Albuterol-Ipratrop 3 mg / 0.5 (3 ml) UD INH SCH ×4 (01:05→19:51)
[2018-03-21] MEDS ORDERED: Potassium Chloride 20 mEq ER Tab PO ONE (02:00)
[2018-03-21] MEDS: Lidocaine 5% Patch TD SCH (10:09)
[2018-03-21] MEDS: Pantoprazole 40 mg EC Tab PO SCH (10:10)
[2018-03-21] MEDS: Metoprolol Succinate 50 mg XL Tab PO SCH (10:10)
[2018-03-21] MEDS: Ranolazine 500 mg Extended Release Tablets PO SCH ×2 (10:11→17:32)
--- NOTE | 2018-03-21 11:09 | RAD ---
HISTORY: r/o pneumonia COMPARISON: 03/07/2018 FINDINGS: LUNGS: Diffuse interstitial prominence. Possible interstitial pulmonary edema. No cleo consolidation. Opacities at lung bases likely due to pleural effusions. PLEURA: Bilateral small pleural effusion. No pneumothorax. CARDIOVASCULAR: Normal heart size. Congestive change. OSSEOUS STRUCTURES: No significant abnormalities. VISUALIZED UPPER ABDOMEN: Normal. OTHER FINDINGS: None. IMPRESSION: Likely interstitial pulmonary edema with small pleural effusions. No cleo infiltrate.
[2018-03-21 11:18] LABS: BASO # 0.1 K/uL (0.0-0.2); BASO % 0.4 % (0.0-2.0); EOS # 0.1 K/uL (0.0-0.7); EOS % 0.7 % (0.0-4.0); HEMOGLOBIN 8.7 g/dL (11.0-16.0); LYMPH # 0.4 K/uL (1.0-4.3); LYMPH % 2.3 % (20.0-40.0); MEAN CELL VOLUME 88.1 fL (81.0-99.0); MEAN CORPUSCULAR HEMOGLOBIN 29.5 pg (27.0-31.0); MEAN CORPUSCULAR HGB CONC 33.5 g/dL (33.0-37.0); MEAN PLATELET VOLUME 9.7 fL (7.2-11.7); MONO # 0.4 K/uL (0.0-0.8); MONO % 2.6 % (0.0-10.0); NEUT # 14.7 K/uL (1.8-7.0); PLATELET COUNT 158 K/uL (130-400); RBC 2.94 Mil/uL (3.80-5.20); RED CELL DISTRIBUTION WIDTH 15.4 % (11.5-14.5); WHITE BLOOD COUNT 15.6 K/uL (4.8-10.8)
--- NOTE | 2018-03-21 11:29 | PN ---
DATE: 03/21/2018 SUBJECTIVE: I came to see her this morning. She is in bed. She is quite depressed. She tells me she does not want to live anymore. It is sort of new. She has been here over 100 days, waiting for insurance changes, waiting for a phone call from Case Management or Social Service to let me know what the problem with the hold of this. She is on Apresoline, aspirin, DuoNebs, potassium, it was very low, Lasix, lidocaine, morphine, Nephro-Karolyn, Norvasc, Protonix, Ranexa, Singulair, Toprol, Tylenol, Xanax, and Zofran. PHYSICAL EXAMINATION: VITAL SIGNS: She has 98 temp, 79 pulse, 146/55 blood pressure, 20 respiratory rate, 99% O2 sat nasal cannula. HEENT: Head atraumatic and normocephalic. HEART: Regular rate. LUNGS: Decreased breath sounds, but clear. ABDOMEN: Soft. EXTREMITIES: No edema. LABORATORY DATA: She has a 140 sodium, potassium is 2.7, it was replaced while waiting this morning. Her labs came back. BUN is 62, creatinine 1.2, kidneys are much better. GFR is 44. Sugar is 105. Calcium is 8.3. Total bili is 0.8. AST is 23, ALT is 25, alk phos 59, total protein is 5.5. Her white count went from 15 up to 19.8, I will call back Infectious Disease. Hemoglobin 9.5, hematocrit 28.9, platelets are 164. She will need to have a blood culture and a urine culture. I am very concerned about Kathy. She is telling me that she wants to . We will see what Dr. Burdick has to say, the psychiatrist and I will call Dr. Torres, the Infectious Disease doctor for elevated white count. ASSESSMENT AND PLAN: She has congestive heart failure, chronic obstructive pulmonary disease, chronic pain, renal insufficiency, which is improved some and now depression, lack of motivation, elevated white count. Await Media Services Coordinator and Case Management to arrange discharge. John Brown DO [facility] # [id number]
[2018-03-21 12:10] LABS: BANDS 11 % (0-2); EOSINOPHIL 1 % (0-4); LYMPHOCYTE 5 % (20-40); MONOCYTE 1 % (0-10); NEUTROPHIL 82 % (50-75); TOTAL CELLS COUNTED 100
[2018-03-21 12:11] LABS: ANISOCYTOSIS SLIGHT; HYPOCHROMIC SLIGHT; PLATELET ESTIMATE NORMAL (NORMAL)
[2018-03-21 12:22] LABS: ALB/GLOB RATIO 1.2 (1.0-2.1); ALBUMIN 2.9 g/dL (3.5-5.0); CALCIUM 8.4 mg/dl (8.6-10.4)
[2018-03-21] MEDS: Cefepime IV 1 gm in Dextrose 1 GM/50 ML BAG IVPB SCH (13:50)
[2018-03-21] MEDS: Multivitamin Vitamin B Complex (Nephro-Vite) Tab PO SCH (13:52)
--- NOTE | 2018-03-21 18:29 | CP.PCM.PN ---
Subjective - Date & Time of Evaluation Date of Evaluation: 03/21/18 Time of Evaluation: 07:00 - Subjective Subjective: wbc elevated bands hi septic work up repeated dr Gamez to re-eval add IV antibiotic Objective - Vital Signs/Intake and Output Vital Signs (last 24 hours): Temp Pulse Resp BP Pulse Ox 98.4 F 78 20 127/67 98 03/21/18 07:45 03/21/18 07:45 03/21/18 07:45 03/21/18 17:32 03/21/18 07:45 Intake and Output: 03/21/18 03/21/18 06:59 18:59 Intake Total 300 Balance 300 - Medications Medications: Current Medications Acetaminophen (Tylenol 325mg Tab) 650 mg PO Q6H PRN PRN Reason: Pain, Mild (1-3) Last Admin: 03/19/18 02:28 Dose: 650 mg Albuterol/Ipratropium (Duoneb 3 Mg/0.5 Mg (3 Ml) Ud) 3 ml INH RQ6 FELIPE Last Admin: 03/21/18 13:22 Dose: Not Given Alprazolam (Xanax) 0.25 mg PO BID [facility] Stop: 03/26/18 18:01 Last Admin: 03/21/18 17:32 Dose: 0.25 mg Amlodipine Besylate (Norvasc) 10 mg PO QPM FELIPE Last Admin: 03/21/18 17:32 Dose: 10 mg Aspirin (Aspirin Chewable) 81 mg PO DAILY FELIPE Last Admin: 03/21/18 10:09 Dose: 81 mg Furosemide (Lasix) 20 mg PO BID FELIPE Last Admin: 03/21/18 17:32 Dose: 20 mg Hydralazine HCl (Apresoline) 100 mg PO Q8 FELIPE Last Admin: 03/21/18 13:50 Dose: 100 mg Cefepime HCl (Maxipime Iv 1 Gm Premix) 1 gm in 50 mls @ 100 mls/hr IVPB Q12H FELIPE PRN Reason: Protocol Last Admin: 03/21/18 13:50 Dose: 100 mls/hr Lidocaine (Lidoderm) 1 ea TD DAILY FELIPE Last Admin: 03/21/18 10:09 Dose: 1 ea Metoprolol Succinate (Toprol Xl) 50 mg PO DAILY FELIPE Last Admin: 03/21/18 10:10 Dose: 50 mg Mirtazapine (Remeron) 7.5 mg PO HS [facility] Montelukast Sodium (Singulair) 10 mg PO DAILY [facility] Last Admin: 03/21/18 10:11 Dose: 10 mg Morphine Sulfate (Morphine) 1 mg IVP Q3H PRN PRN Reason: Pain, moderate (4-7) Last Admin: 03/21/18 17:58 Dose: 1 mg Ondansetron HCl (Zofran Inj) 4 mg IVP Q4H PRN PRN Reason: Nausea/Vomiting Last Admin: 03/20/18 00:31 Dose: 4 mg Pantoprazole Sodium (Protonix Ec Tab) 40 mg PO DAILY [facility] Last Admin: 03/21/18 10:10 Dose: 40 mg Ranolazine (Ranexa) 500 mg PO BID [facility] Last Admin: 03/21/18 17:32 Dose: 500 mg Vitamin B Complex/Vit C/Folic Acid (Nephro-Karolyn) 1 tab PO 0800 [facility] Last Admin: 03/21/18 13:52 Dose: 1 tab - Labs Labs: 03/21/18 11:09 03/21/18 11:09 PT 13.6 SECONDS (9.7-12.2) H 01/15/18 07:10 INR 1.2 01/15/18 07:10 APTT 34 SECONDS (21-34) 12/09/17 00:22 - Constitutional Appears: Non-toxic, Cachectic, Chronically Ill - Head Exam Head Exam: NORMOCEPHALIC - Eye Exam Eye Exam: PERRL. absent: Scleral icterus - ENT Exam ENT Exam: Mucous Membranes Dry - Neck Exam Neck Exam: absent: Thyromegaly - Respiratory Exam Respiratory Exam: Decreased Breath Sounds - Cardiovascular Exam Cardiovascular Exam: REGULAR RHYTHM - GI/Abdominal Exam GI & Abdominal Exam: Distended - Rectal Exam Rectal Exam: Deferred - Exam Exam: NORMAL INSPECTION - Extremities Exam Extremities Exam: absent: Pedal Edema Assessment and Plan (1) Non-ST elevated myocardial infarction (non-STEMI) Status: Acute (2) Peripheral visual field defect of both eyes Status: Acute (3) UTI (urinary tract infection) Status: Acute (4) CHF (congestive heart failure) Status: Chronic
--- NOTE | 2018-03-21 21:15 | PN ---
DATE: 03/21/2018 SUBJECTIVE: Events noted. The patient seems to be more confused and weaker. Her WBC is still elevated. She is having antibiotics now. As said, the patient seems to be more depressed and states that she might not be able to go home anymore. She is also less agitated, but still is more depressed and having some passive suicidal ideation. Her appetite is still poor and very somatic complaining of persistent abdominal pain despite taking morphine. PHYSICAL EXAMINATION: VITAL SIGNS: Temperature 98.4, pulse is 78, blood pressure is 123/53, respirations 20, oxygen saturation 80%. REVIEW OF SYSTEMS: GENERAL: The patient has been having increasing periods of confusion in her room, speaks in a soft voice. SKIN: No diaphoresis. HEENT: Hard of hearing. No headache. NECK: Supple. RESPIRATORY: No acute respiratory distress. CARDIOVASCULAR: No chest pain. ABDOMEN: Complaining of persistent abdominal pain despite having morphine. The patient reports she is also not moving her bowels. No nausea. No vomiting. EXTREMITIES: Gait is unsteady. MUSCULOSKELETAL: Feels weak. NEUROLOGIC: Alert with increasing periods of confusion. The patient is oriented to place and person, not to time. MENTAL STATUS EXAMINATION: A frail-looking elderly female who looks her stated age, oriented x2. She is more confused. Mood is more depressed, anxious, very somatic, affect is restricted. Thought process is confused. Thought content, no overt psychosis. The patient is seen today, states that she might not be able to go home anymore. No active suicidal or homicidal ideation. No psychosis. Attention and memory seemed to be limited. Insight and judgment limited. Impulse control is guarded. IMPRESSION: Delirium secondary to exacerbation of chronic obstructive pulmonary disease as well as possible depression. Dementia with mood changes as well as history of urinary tract infection, chronic obstructive pulmonary disease, congestive heart failure. PLAN AND RECOMMENDATIONS: The patient is seen and medications reviewed. We will change her psych medication for now. We will discontinue the Xanax 0.5 mg at bedtime and give Remeron 7.5 mg at bedtime for depression. May continue the Xanax 0.25 mg p.o. b.i.d. The patient at this time is still awaiting completion of Medicaid papers for possible long-term placement in subacute. The patient can't go home at this time. She is still confused and cannot take care of herself and needs 24-hour care. We will, however, will try to adjust the medications as the patient seemed to be developing more vegetative symptoms of depression. Demetrius Burdick MD [facility]
[2018-03-21 22:34] LABS: SQUAMOUS EPITHIAL 5 /hpf (0-5); URINE BACTERIA OCC (<OCC); URINE BILIRUBIN NEGATIVE (NEGATIVE); URINE BLOOD 1+ (NEGATIVE); URINE CLARITY Hazy (Clear); URINE GLUCOSE (UA) NORMAL (Normal); URINE LEUKOCYTE ESTERASE 2+ Leu/uL (Negative); URINE PROTEIN 1+ mg/dL (NEGATIVE); URINE UROBILINOGEN NORMAL mg/dL (0.2-1.0)
[2018-03-22] MEDS: Cefepime IV 1 gm in Dextrose 1 GM/50 ML BAG IVPB SCH ×2 (01:23→13:12)
[2018-03-22] MEDS: Albuterol-Ipratrop 3 mg / 0.5 (3 ml) UD INH SCH ×4 (01:26→19:49)
[2018-03-22] MEDS: Multivitamin Vitamin B Complex (Nephro-Vite) Tab PO SCH (08:08)
[2018-03-22] MEDS: Lidocaine 5% Patch TD SCH (10:30)
[2018-03-22] MEDS: Pantoprazole 40 mg EC Tab PO SCH (10:31)
[2018-03-22] MEDS: Metoprolol Succinate 50 mg XL Tab PO SCH (10:31)
[2018-03-22] MEDS: Ranolazine 500 mg Extended Release Tablets PO SCH ×2 (10:31→17:18)
--- NOTE | 2018-03-22 10:50 | PN ---
DATE: 03/22/2018 SUBJECTIVE: She is sleeping this morning in bed. The nurse said she was up last night, had one dose of morphine a while ago, but she is very lethargic this morning. She is on Apresoline, aspirin, DuoNebs, Lasix, Lidoderm. She is now on Maxipime by Infectious Disease with elevated white count. Morphine as needed for pain, Nephro-Karolyn, Norvasc, Protonix, Ranexa, Remeron, Singulair, Toprol, Tylenol, Xanax and Zofran. PHYSICAL EXAMINATION: VITAL SIGNS: 98.4 temp, 78 pulse, 123/53 blood pressure, 20 respiratory rate, 90% O2 sat on 2 liters. HEENT: Atraumatic and normocephalic. HEART: Regular rate. LUNGS: Decreased breath sounds, but clear. ABDOMEN: Soft. EXTREMITIES: No edema. She is thin and frail. LABORATORY DATA: She had a 15.6 white count yesterday, came down from 19, 8.7 hemoglobin. If drops below 8, will transfuse, with 25.9 hematocrit with 158 platelets with the white counts coming down. Infectious Disease put her on antibiotics. Sodium 139, potassium 3.8, BUN 64, creatinine 1.3, holding steady. GFR is 40, sugar is 141, calcium is 8.4, magnesium is 1.7, AST is ALT is 19, alk phos 54, total protein is 5.3. She had positive nitrites, white count 32 on urine and this could be urinary tract infection for her. That is the change in this UA. She is being seen by Psychiatry and Infectious Disease. She had a chest x-ray, which showed some pulmonary edema and I added IV antibiotics, which I am hoping will help her, which I think it is. We will continue with checking her labs. We will get her out of bed to chair and await for Telemarketing Manager and Case Management to help with discharge planning. I filled her a form for her that will help her get out of the hospital. John Brown DO [facility]
[2018-03-22 14:04] LABS: BASO % 0.3 % (0.0-2.0); EOS # 0.1 K/uL (0.0-0.7); EOS % 0.5 % (0.0-4.0); HEMOGLOBIN 7.7 g/dL (11.0-16.0); LYMPH # 0.5 K/uL (1.0-4.3); LYMPH % 4.2 % (20.0-40.0); MEAN CELL VOLUME 88.3 fL (81.0-99.0); MEAN CORPUSCULAR HEMOGLOBIN 29.1 pg (27.0-31.0); MEAN PLATELET VOLUME 9.9 fL (7.2-11.7); MONO # 0.4 K/uL (0.0-0.8); MONO % 3.5 % (0.0-10.0); NEUT # 10.7 K/uL (1.8-7.0); NEUT % 91.5 % (50.0-75.0); PLATELET COUNT 155 K/uL (130-400); RBC 2.66 Mil/uL (3.80-5.20); WHITE BLOOD COUNT 11.7 K/uL (4.8-10.8)
[2018-03-22 14:24] LABS: ALB/GLOB RATIO 1.2 (1.0-2.1); ALBUMIN 2.9 g/dL (3.5-5.0); CALCIUM 8.5 mg/dl (8.6-10.4)
[2018-03-22 15:00] LABS: ANISOCYTOSIS SLIGHT; EOSINOPHIL 1 % (0-4); HYPOCHROMIC SLIGHT; LYMPHOCYTE 4 % (20-40); MONOCYTE 3 % (0-10); NEUTROPHIL 92 % (50-75); PLATELET ESTIMATE NORMAL (NORMAL); TOTAL CELLS COUNTED 100
[2018-03-22 15:02] LABS: POLYCHROMIC SLIGHT
[2018-03-23] MEDS: Albuterol-Ipratrop 3 mg / 0.5 (3 ml) UD INH SCH ×4 (01:40→19:31)
[2018-03-23] MEDS: Cefepime IV 1 gm in Dextrose 1 GM/50 ML BAG IVPB SCH (02:45)
[2018-03-23] MEDS ORDERED: Potassium Chloride 20 mEq ER Tab PO ONE (06:27)
[2018-03-23] MEDS: Multivitamin Vitamin B Complex (Nephro-Vite) Tab PO SCH (08:23)
[2018-03-23] MEDS: Metoprolol Succinate 50 mg XL Tab PO SCH (10:15)
[2018-03-23] MEDS: Pantoprazole 40 mg EC Tab PO SCH (10:15)
[2018-03-23] MEDS: Ranolazine 500 mg Extended Release Tablets PO SCH ×2 (10:16→18:04)
[2018-03-23] MEDS: Lidocaine 5% Patch TD SCH ×2 (10:16→11:00)
--- NOTE | 2018-03-23 10:50 | PN ---
DATE: 03/23/2018 SUBJECTIVE: She is not happy this morning. She has to get out of bed to chair, I spoke to the nurse to get her out of bed to chair. She also tells me her whole body is achy. She did a shot of morphine an overnight. She also finished her blood this morning, she got 2 units. We will check a lab at 10 o'clock. MEDICATIONS: She is on Apresoline, aspirin, DuoNeb, Lasix, Lidoderm, Maxipime, morphine, Nephro-Karolyn, Norvasc, Protonix, Ranexa, Remeron, Singulair, Toprol, Tylenol, Xanax and Zofran. PHYSICAL EXAMINATION: GENERAL: She has a 98.4 temp, 83 pulse, 134/70 blood pressure, 20 respiratory rate. HEENT: Head is atraumatic and normocephalic. HEART: Regular rate. LUNGS: Clear to auscultation. ABDOMEN: Soft. EXTREMITIES: No edema. LABORATORY DATA: Yesterday's lab showed 11.7 white count, which is great with a 7.7 hemoglobin which is too low, we transfused 2 units, 23.4 hematocrit with a 155 platelets, so as I am happy the white count dropped to 11.7 on IV antibiotics, I am upset that the hemoglobin dropped, so we are going to transfuse her, she got the blood. She has a 143 sodium, potassium 3.5, we will give her potassium, BUN 73, creatinine 1.4, GFR is 37, sugar is 91, calcium is 8.5, total bili is 1, AST is 35, ALT is 17, alk phos 53, procalcitonin was 10.63, which is high. She had gram negative rods in the blood, Proteus mirabilis in the urine. ASSESSMENT AND PLAN: So she has been here over 100 days and she finally She is being seen by Dr. Torres, the Infectious Disease doctor, Psychiatry, Renal. She has congestive heart failure, chronic obstructive pulmonary disease, chronic pain, renal insufficiency, low potassium, urinary tract infection with positive blood cultures, improving with antibiotics. We will check her labs. Replace potassium and will keep a close eye on her, awaiting for a placement or Medicaid number whatever Case Management and Real Estate Agency Licensee can help us with to get her discharged. John Brown DO [facility] # [id number] [facility]
[2018-03-23 11:23] LABS: HEMOGLOBIN 12.3 g/dL (11.0-16.0); MEAN CELL VOLUME 89.5 fL (81.0-99.0); MEAN CORPUSCULAR HEMOGLOBIN 30.2 pg (27.0-31.0); MEAN CORPUSCULAR HGB CONC 33.7 g/dL (33.0-37.0); MEAN PLATELET VOLUME 9.6 fL (7.2-11.7); RBC 4.07 Mil/uL (3.80-5.20); RED CELL DISTRIBUTION WIDTH 15.3 % (11.5-14.5); WHITE BLOOD COUNT 12.4 K/uL (4.8-10.8)
[2018-03-23 11:43] LABS: ALB/GLOB RATIO 1.2 (1.0-2.1); ALBUMIN 3.2 g/dL (3.5-5.0); CALCIUM 8.6 mg/dl (8.6-10.4)
--- NOTE | 2018-03-23 13:02 | CP.PCM.PN ---
Subjective - Date & Time of Evaluation Date of Evaluation: 03/23/18 Time of Evaluation: 07:00 - Subjective Subjective: + BLOOD AND URINE CULTURES CONSIDER EVAL IV MERREM ADDED Objective - Vital Signs/Intake and Output Vital Signs (last 24 hours): Temp Pulse Resp BP Pulse Ox 98.1 F 82 20 143/71 96 03/23/18 08:34 03/23/18 08:34 03/23/18 08:34 03/23/18 10:15 03/23/18 08:34 Intake and Output: 03/23/18 03/23/18 06:59 18:59 Intake Total 770 Balance 770 - Medications Medications: Current Medications Acetaminophen (Tylenol 325mg Tab) 650 mg PO Q6H PRN PRN Reason: Pain, Mild (1-3) Last Admin: 03/19/18 02:28 Dose: 650 mg Albuterol/Ipratropium (Duoneb 3 Mg/0.5 Mg (3 Ml) Ud) 3 ml INH RQ6 [facility] Last Admin: 03/23/18 07:54 Dose: Not Given Alprazolam (Xanax) 0.25 mg PO BID [facility] Stop: 03/26/18 18:01 Last Admin: 03/23/18 10:16 Dose: 0.25 mg Amlodipine Besylate (Norvasc) 10 mg PO QPM [facility] Last Admin: 03/22/18 17:18 Dose: 10 mg Aspirin (Aspirin Chewable) 81 mg PO DAILY [facility] Last Admin: 03/22/18 10:30 Dose: 81 mg Furosemide (Lasix) 20 mg PO BID [facility] Last Admin: 03/23/18 10:15 Dose: 20 mg Hydralazine HCl (Apresoline) 100 mg PO Q8 [facility] Last Admin: 03/23/18 05:59 Dose: Not Given Meropenem 500 mg/ Sodium (Chloride) 100 mls @ 100 mls/hr IVPB Q8 [facility] PRN Reason: Protocol Lidocaine (Lidoderm) 1 ea TD DAILY [facility] Last Admin: 03/23/18 10:16 Dose: 1 ea Metoprolol Succinate (Toprol Xl) 50 mg PO DAILY [facility] Last Admin: 03/23/18 10:15 Dose: 50 mg Mirtazapine (Remeron) 7.5 mg PO HS [facility] Last Admin: 03/22/18 21:52 Dose: 7.5 mg Montelukast Sodium (Singulair) 10 mg PO DAILY [facility] Last Admin: 03/23/18 10:15 Dose: 10 mg Morphine Sulfate (Morphine) 1 mg IVP Q3H PRN PRN Reason: Pain, moderate (4-7) Last Admin: 03/23/18 10:19 Dose: 1 mg Ondansetron HCl (Zofran Inj) 4 mg IVP Q4H PRN PRN Reason: Nausea/Vomiting Last Admin: 03/20/18 00:31 Dose: 4 mg Pantoprazole Sodium (Protonix Ec Tab) 40 mg PO DAILY [facility] Last Admin: 03/23/18 10:15 Dose: 40 mg Ranolazine (Ranexa) 500 mg PO BID [facility] Last Admin: 03/23/18 10:16 Dose: 500 mg Vitamin B Complex/Vit C/Folic Acid (Nephro-Karolyn) 1 tab PO 0800 [facility] Last Admin: 03/23/18 08:23 Dose: Not Given - Labs Labs: 03/23/18 11:18 03/23/18 11:18 PT 13.6 SECONDS (9.7-12.2) H 01/15/18 07:10 INR 1.2 01/15/18 07:10 APTT 34 SECONDS (21-34) 12/09/17 00:22 - Constitutional Appears: Confused, Cachectic, Chronically Ill - Head Exam Head Exam: NORMOCEPHALIC - Eye Exam Eye Exam: PERRL - ENT Exam ENT Exam: Mucous Membranes Dry - Neck Exam Neck Exam: absent: Lymphadenopathy - Respiratory Exam Respiratory Exam: Decreased Breath Sounds - Cardiovascular Exam Cardiovascular Exam: REGULAR RHYTHM - GI/Abdominal Exam GI & Abdominal Exam: Distended, Soft Assessment and Plan (1) Non-ST elevated myocardial infarction (non-STEMI) Status: Acute (2) Peripheral visual field defect of both eyes Status: Acute (3) UTI (urinary tract infection) Status: Acute (4) CHF (congestive heart failure) Status: Chronic - Assessment and Plan (Free Text) Assessment: add merrem await cultures consider eval, imaging
[2018-03-23] MEDS: Meropenem 500 MG in Sodium Chloride 0.9% 100 ML IVPB SCH ×2 (14:17→21:18)
--- NOTE | 2018-03-23 19:34 | PN ---
DATE: 03/23/2018 SUBJECTIVE: The patient is seen. The patient noted to be drowsy. Speaking in soft words, stating that she is dying. The patient states she wants her pain meds. The patient was given transfusion yesterday, 2 units, but today she is very frail. She could hardly eat but not complaining of pain. The patient advised not to be asking for morphine as it will make her very drowsy. The patient is on Xanax and Remeron. VITAL SIGNS: Temperature is 98.1, pulse rate 82, blood pressure 143/71, respirations are 20, and oxygen saturation is 96%. REVIEW OF SYSTEMS: CONSTITUTIONAL: The patient is drowsy, but able to converse, seen in her room. The patient states she is dying. SKIN: No diaphoresis. HEENT: Hard of hearing. NECK: Supple. RESPIRATORY: Mild dyspnea. CARDIOVASCULAR: No chest pain. GASTROINTESTINAL: No abdominal pain, but poor appetite. EXTREMITIES: Gait is steady. MUSCULOSKELETAL: Feels weak. NEUROLOGIC: Alert but with increasing periods of confusion. GENITOURINARY: No dysuria. MENTAL STATUS EXAMINATION: Frail looking female. Looks stated age. Mood is dysphoric. Affect is reactive. Speech is slow. Thought process is confused often. Thought content, the patient has no psychosis. No suicidal or homicidal ideation. Attention and memory seem to be limited. Insight and judgment fair. Impulse control is guarded. IMPRESSION: Delirium as well as dementia. PLAN AND RECOMMENDATIONS: The patient seen. Meds reviewed. Continue psych meds. Patient advised to limit the use of warfarin to reduce sedation. The patient is on Remeron at night and then Xanax b.i.d. The patient also on antibiotic. The patient is awaiting completion of her Medicaid as well as for subacute rehab. Demetrius Burdick MD MTDD
[2018-03-24] MEDS: Albuterol-Ipratrop 3 mg / 0.5 (3 ml) UD INH SCH ×4 (02:25→19:40)
[2018-03-24] MEDS: Meropenem 500 MG in Sodium Chloride 0.9% 100 ML IVPB SCH ×3 (06:55→21:40)
[2018-03-24 07:41] LABS: HEMOGLOBIN 11.8 g/dL (11.0-16.0); MEAN CELL VOLUME 89.3 fL (81.0-99.0); MEAN CORPUSCULAR HEMOGLOBIN 30.5 pg (27.0-31.0); MEAN CORPUSCULAR HGB CONC 34.2 g/dL (33.0-37.0); MEAN PLATELET VOLUME 9.5 fL (7.2-11.7); RBC 3.86 Mil/uL (3.80-5.20); RED CELL DISTRIBUTION WIDTH 15.3 % (11.5-14.5); WHITE BLOOD COUNT 13.2 K/uL (4.8-10.8)
[2018-03-24 08:03] LABS: ALB/GLOB RATIO 1.3 (1.0-2.1); ALBUMIN 3.1 g/dL (3.5-5.0); CALCIUM 8.8 mg/dl (8.6-10.4)
[2018-03-24] MEDS: Multivitamin Vitamin B Complex (Nephro-Vite) Tab PO SCH (08:44)
--- NOTE | 2018-03-24 10:33 | PN ---
DATE: 03/24/2018 SUBJECTIVE: I saw Kathy resting in bed. She slept fair. She was up a lot, not eating that great. She moves out of bed a little bit, but overall, she does not want to be here anymore, I think she is getting quite depressed. MEDICATIONS: She is on Apresoline, aspirin, DuoNeb, Lasix, Lidoderm, Merrem IV, morphine, Nephro-Karolyn, Norvasc, Protonix, Ranexa, Remeron, Singulair, Toprol, Tylenol, Xanax, Zofran. PHYSICAL EXAMINATION: VITAL SIGNS: She has a 98 temp, 72 pulse, 127/66 blood pressure, 20 respiratory rate, 98% O2 sat on 2 liters nasal cannula. GENERAL: She is thin and frail and she should get a little bit better. HEENT: Head is atraumatic, normocephalic. Throat is moist. NECK: Supple. HEART: Regular rate. LUNGS: Decreased breath sounds bilaterally but clear. No wheezes, no rhonchi, no rales. ABDOMEN: Soft, nontender. Positive bowel sounds. EXTREMITIES: Have no edema. LABORATORY DATA: She has a 12.4 white count, still on IV antibiotics, down from 19, hemoglobin is up to 12.3 after 2 units of packed red blood cells, 36.4 hematocrit with a 162 platelets. She has a 146 sodium, potassium 3.3, I am going to give her some potassium, BUN is 69, creatinine 1.3 which is good for her, GFR is 40, sugar is 102, calcium is 8.6, total bili is 0.9, AST is 29, ALT is 18, alkaline phosphatase 57, total protein is 5.7. She had gram negative rods in the urine and blood. She had a chest x-ray on the , which showed pulmonary edema, no infiltrates. ASSESSMENT AND PLAN: She is being seen by Psychiatry which is good, Infectious Disease, which is good and although she is little bit depressed, she is getting better with the IV antibiotics. She had congestive heart failure, chronic obstructive pulmonary disease, chronic pain, renal insufficiency, [id number] myocardial infarction history, peripheral vascular disease, urinary tract infection. I will continue aggressive treatment as per Infectious Disease and Psychiatry. Should get her out of bed to chair, encourage and await for placement. John Brown DO [facility] # [id number] KENNETH
[2018-03-24] MEDS: Metoprolol Succinate 50 mg XL Tab PO SCH (11:00)
[2018-03-24] MEDS: Pantoprazole 40 mg EC Tab PO SCH (11:00)
[2018-03-24] MEDS: Lidocaine 5% Patch TD SCH (11:00)
[2018-03-24] MEDS: Ranolazine 500 mg Extended Release Tablets PO SCH ×2 (11:00→17:37)
[2018-03-24] MEDS ORDERED: Potassium Chloride 20 mEq ER Tab PO ONE (14:00)
[2018-03-25] MEDS: Albuterol-Ipratrop 3 mg / 0.5 (3 ml) UD INH SCH ×4 (02:11→21:00)
[2018-03-25] MEDS: Meropenem 500 MG in Sodium Chloride 0.9% 100 ML IVPB SCH ×3 (06:28→21:00)
[2018-03-25] MEDS: Multivitamin Vitamin B Complex (Nephro-Vite) Tab PO SCH (09:19)
[2018-03-25] MEDS: Pantoprazole 40 mg EC Tab PO SCH (09:19)
[2018-03-25] MEDS: Ranolazine 500 mg Extended Release Tablets PO SCH ×2 (09:19→17:28)
[2018-03-25] MEDS: Metoprolol Succinate 50 mg XL Tab PO SCH (09:22)
[2018-03-25] MEDS: Lidocaine 5% Patch TD SCH (09:32)
--- NOTE | 2018-03-25 13:27 | CP.PCM.PN ---
Subjective - Date & Time of Evaluation Date of Evaluation: 03/25/18 Time of Evaluation: 08:00 - Subjective Subjective: IV rx in progress growing bacteroides CT abd shows thickened colon recc: GI and surgical eval Objective - Vital Signs/Intake and Output Vital Signs (last 24 hours): Temp Pulse Resp BP Pulse Ox 98.3 F 77 20 160/73 H 100 03/25/18 07:35 03/25/18 07:35 03/25/18 07:35 03/25/18 09:22 03/25/18 07:35 - Medications Medications: Current Medications Acetaminophen (Tylenol 325mg Tab) 650 mg PO Q6H PRN PRN Reason: Pain, Mild (1-3) Last Admin: 03/19/18 02:28 Dose: 650 mg Albuterol/Ipratropium (Duoneb 3 Mg/0.5 Mg (3 Ml) Ud) 3 ml INH RQ6 [facility] Last Admin: 03/25/18 07:44 Dose: Not Given Alprazolam (Xanax) 0.25 mg PO BID [facility] Stop: 03/26/18 18:01 Last Admin: 03/25/18 09:19 Dose: 0.25 mg Amlodipine Besylate (Norvasc) 10 mg PO QPM [facility] Last Admin: 03/24/18 17:36 Dose: 10 mg Aspirin (Aspirin Chewable) 81 mg PO DAILY [facility] Last Admin: 03/25/18 09:20 Dose: 81 mg Furosemide (Lasix) 20 mg PO BID [facility] Last Admin: 03/25/18 09:22 Dose: 20 mg Hydralazine HCl (Apresoline) 100 mg PO Q8 [facility] Last Admin: 03/25/18 06:30 Dose: Not Given Meropenem 500 mg/ Sodium (Chloride) 100 mls @ 100 mls/hr IVPB Q8H [facility] PRN Reason: Protocol Last Admin: 03/25/18 06:28 Dose: 100 mls/hr Metronidazole (Flagyl) 500 mg in 100 mls @ 100 mls/hr IVPB Q8 [facility] PRN Reason: Protocol Lidocaine (Lidoderm) 1 ea TD DAILY [facility] Last Admin: 03/25/18 09:32 Dose: Not Given Metoprolol Succinate (Toprol Xl) 50 mg PO DAILY [facility] Last Admin: 03/25/18 09:22 Dose: 50 mg Mirtazapine (Remeron) 7.5 mg PO HS [facility] Last Admin: 03/24/18 21:40 Dose: Not Given Montelukast Sodium (Singulair) 10 mg PO DAILY [facility] Last Admin: 03/25/18 09:20 Dose: 10 mg Morphine Sulfate (Morphine) 1 mg IVP Q3H PRN PRN Reason: Pain, moderate (4-7) Last Admin: 03/25/18 09:37 Dose: 1 mg Ondansetron HCl (Zofran Inj) 4 mg IVP Q4H PRN PRN Reason: Nausea/Vomiting Last Admin: 03/20/18 00:31 Dose: 4 mg Pantoprazole Sodium (Protonix Ec Tab) 40 mg PO DAILY [facility] Last Admin: 03/25/18 09:19 Dose: 40 mg Ranolazine (Ranexa) 500 mg PO BID [facility] Last Admin: 03/25/18 09:19 Dose: 500 mg Vitamin B Complex/Vit C/Folic Acid (Nephro-Karolyn) 1 tab PO 0800 [facility] Last Admin: 03/25/18 09:19 Dose: 1 tab - Labs Labs: 03/24/18 07:30 03/24/18 07:30 PT 13.6 SECONDS (9.7-12.2) H 01/15/18 07:10 INR 1.2 01/15/18 07:10 APTT 34 SECONDS (21-34) 12/09/17 00:22 - Constitutional Appears: Non-toxic, Chronically Ill - Head Exam Head Exam: ATRAUMATIC, NORMOCEPHALIC - Eye Exam Eye Exam: EOMI Pupil Exam: PERRL - ENT Exam ENT Exam: Mucous Membranes Moist - Neck Exam Neck Exam: absent: Lymphadenopathy - Respiratory Exam Respiratory Exam: Clear to Ausculation Bilateral - Cardiovascular Exam Cardiovascular Exam: REGULAR RHYTHM - GI/Abdominal Exam GI & Abdominal Exam: Distended - Rectal Exam Rectal Exam: Deferred - Exam Exam: NORMAL INSPECTION - Extremities Exam Extremities Exam: absent: Calf Tenderness - Back Exam Back Exam: absent: CVA tenderness (L), CVA tenderness (R) - Neurological Exam Neurological Exam: Alert, Awake, CN II-XII Intact - Psychiatric Exam Psychiatric exam: Depressed - Skin Skin Exam: Dry Assessment and Plan (1) Non-ST elevated myocardial infarction (non-STEMI) Status: Acute (2) Peripheral visual field defect of both eyes Status: Acute (3) UTI (urinary tract infection) Status: Acute (4) CHF (congestive heart failure) Status: Chronic - Assessment and Plan (Free Text) Assessment: growing bacteroides from blood CT abd shows thickened colon recc: GI and surgical eval
--- NOTE | 2018-03-25 15:02 | PN ---
DATE: 03/25/2018 SUBJECTIVE: Resting comfortably in bed. She in bed but a little bit stronger than the other day maybe. MEDICATIONS: She is on Apresoline, aspirin, DuoNeb, potassium replacement, Lasix, Lidoderm, Merrem IV, morphine as needed, Nephro-Karolyn, Norvasc, Protonix, Ranexa, Remeron, Singulair, Toprol, Tylenol, Xanax, and Zofran. PHYSICAL EXAMINATION: VITAL SIGNS: She has a 98.3 temperature, 77 pulse, 122/62 blood pressure, 20 respiratory rate, and 100% O2 sat with 3 L nasal cannula. HEENT: Head is atraumatic, normocephalic. Throat is dry. NECK: Supple. HEART: Regular rate. LUNGS: Decreased breath sounds but clear. ABDOMEN: Soft, nontender. Positive bowel sounds. EXTREMITIES: No edema. LABORATORY DATA: She has a white count which is hovering at 13.2, we are trying to get under 10. She has 11.8 hemoglobin, 34.5 hematocrit, 195 platelets. She has a 148 sodium, potassium 3.1 with replacement of potassium, BUN 54, creatinine 1.3. Sugars 101, AST is 19, and ALT is 24, alk phos 58. She refused lab today. We will try it again tomorrow. We have to check her low potassium and have to check her hemoglobin and white blood cell count, still on the IV Merrem by Infectious Disease, being seen by Infectious Disease and Psychiatry. Still waiting for Medicaid/Medicare to work out their issues and then safe discharge as per web content & social media manager and case management. She has CHF, COPD, chronic pain, renal insufficiency, infection. John Brown DO MTDD
[2018-03-25] MEDS: metroNIDAZOLE IV 500 mg/100 ml 500 MG/100 ML BAG IVPB SCH ×2 (15:16→21:59)
[2018-03-26] MEDS: Meropenem 500 MG in Sodium Chloride 0.9% 100 ML IVPB SCH ×3 (06:09→21:26)
[2018-03-26] MEDS: metroNIDAZOLE IV 500 mg/100 ml 500 MG/100 ML BAG IVPB SCH ×3 (06:10→22:50)
[2018-03-26] MEDS: Albuterol-Ipratrop 3 mg / 0.5 (3 ml) UD INH SCH ×3 (07:28→19:24)
[2018-03-26] MEDS: Multivitamin Vitamin B Complex (Nephro-Vite) Tab PO SCH (08:51)
[2018-03-26 08:59] LABS: HEMOGLOBIN 12.7 g/dL (11.0-16.0); MEAN CELL VOLUME 90.5 fL (81.0-99.0); MEAN CORPUSCULAR HEMOGLOBIN 30.2 pg (27.0-31.0); MEAN CORPUSCULAR HGB CONC 33.4 g/dL (33.0-37.0); MEAN PLATELET VOLUME 10.3 fL (7.2-11.7); RBC 4.19 Mil/uL (3.80-5.20); RED CELL DISTRIBUTION WIDTH 15.5 % (11.5-14.5); WHITE BLOOD COUNT 13.3 K/uL (4.8-10.8)
[2018-03-26 09:03] LABS: ALB/GLOB RATIO 1.2 (1.0-2.1); ALBUMIN 3.4 g/dL (3.5-5.0); ALT/SGPT 20 U/L (9-52); AST/SGOT 39 U/L (14-36); BLOOD UREA NITROGEN 60 mg/dL (7-17); CALCIUM 8.8 mg/dl (8.6-10.4); GFR AFRICAN-AMERICAN > 60; GFR NON-AFRICAN AMERICAN 54
[2018-03-26] MEDS: Potassium Chloride 20 mEq ER Tab PO SCH (09:48)
[2018-03-26] MEDS: Lidocaine 5% Patch TD SCH (09:48)
[2018-03-26] MEDS: Ranolazine 500 mg Extended Release Tablets PO SCH ×2 (09:48→17:18)
[2018-03-26] MEDS: Metoprolol Succinate 50 mg XL Tab PO SCH (09:48)
[2018-03-26] MEDS: Pantoprazole 40 mg EC Tab PO SCH (09:49)
--- NOTE | 2018-03-26 12:02 | CP.PCM.PN ---
Subjective - Date & Time of Evaluation Date of Evaluation: 03/26/18 Time of Evaluation: 08:00 - Subjective Subjective: graam neg urine and blood iv rx in progress poor prognosis Objective - Vital Signs/Intake and Output Vital Signs (last 24 hours): Temp Pulse Resp BP Pulse Ox 97.6 F 88 20 140/88 97 03/26/18 07:00 03/26/18 07:00 03/26/18 07:00 03/26/18 09:49 03/26/18 07:00 Intake and Output: 03/26/18 03/26/18 06:59 18:59 Intake Total 50 Balance 50 - Medications Medications: Current Medications Acetaminophen (Tylenol 325mg Tab) 650 mg PO Q6H PRN PRN Reason: Pain, Mild (1-3) Last Admin: 03/19/18 02:28 Dose: 650 mg Albuterol/Ipratropium (Duoneb 3 Mg/0.5 Mg (3 Ml) Ud) 3 ml INH RQ6 [facility] Last Admin: 03/26/18 07:28 Dose: Not Given Alprazolam (Xanax) 0.25 mg PO BID [facility] Stop: 03/26/18 18:01 Last Admin: 03/26/18 09:48 Dose: 0.25 mg Amlodipine Besylate (Norvasc) 10 mg PO QPM [facility] Last Admin: 03/25/18 17:28 Dose: 10 mg Aspirin (Aspirin Chewable) 81 mg PO DAILY [facility] Last Admin: 03/26/18 09:49 Dose: 81 mg Furosemide (Lasix) 20 mg PO BID [facility] Last Admin: 03/26/18 09:49 Dose: 20 mg Hydralazine HCl (Apresoline) 100 mg PO Q8 [facility] Last Admin: 03/26/18 06:09 Dose: 100 mg Meropenem 500 mg/ Sodium (Chloride) 100 mls @ 100 mls/hr IVPB Q8H [facility] PRN Reason: Protocol Last Admin: 03/26/18 06:09 Dose: 100 mls/hr Metronidazole (Flagyl) 500 mg in 100 mls @ 100 mls/hr IVPB Q8H [facility] PRN Reason: Protocol Last Admin: 03/26/18 06:10 Dose: 100 mls/hr Lidocaine (Lidoderm) 1 ea TD DAILY [facility] Last Admin: 03/26/18 09:48 Dose: 1 ea Metoprolol Succinate (Toprol Xl) 50 mg PO DAILY [facility] Last Admin: 03/26/18 09:48 Dose: 50 mg Mirtazapine (Remeron) 7.5 mg PO HS [facility] Last Admin: 03/25/18 21:59 Dose: 7.5 mg Montelukast Sodium (Singulair) 10 mg PO DAILY [facility] Last Admin: 03/26/18 09:49 Dose: 10 mg Morphine Sulfate (Morphine) 1 mg IVP Q3H PRN PRN Reason: Pain, moderate (4-7) Last Admin: 03/26/18 07:07 Dose: 1 mg Ondansetron HCl (Zofran Inj) 4 mg IVP Q4H PRN PRN Reason: Nausea/Vomiting Last Admin: 03/20/18 00:31 Dose: 4 mg Pantoprazole Sodium (Protonix Ec Tab) 40 mg PO DAILY [facility] Last Admin: 03/26/18 09:49 Dose: 40 mg Potassium Chloride (K-Dur 20 Meq Er Tab) 20 meq PO DAILY [facility] Last Admin: 03/26/18 09:48 Dose: 20 meq Ranolazine (Ranexa) 500 mg PO BID [facility] Last Admin: 03/26/18 09:48 Dose: 500 mg Vitamin B Complex/Vit C/Folic Acid (Nephro-Karolyn) 1 tab PO 0800 [facility] Last Admin: 03/26/18 08:51 Dose: 1 tab - Labs Labs: 03/26/18 08:44 03/26/18 08:44 PT 13.6 SECONDS (9.7-12.2) H 01/15/18 07:10 INR 1.2 01/15/18 07:10 APTT 34 SECONDS (21-34) 12/09/17 00:22 - Constitutional Appears: Confused, Cachectic, Chronically Ill - Head Exam Head Exam: NORMOCEPHALIC - Eye Exam Eye Exam: absent: Scleral icterus - ENT Exam ENT Exam: Mucous Membranes Dry - Neck Exam Neck Exam: absent: Lymphadenopathy - Respiratory Exam Respiratory Exam: Decreased Breath Sounds - Cardiovascular Exam Cardiovascular Exam: REGULAR RHYTHM - GI/Abdominal Exam GI & Abdominal Exam: Distended, Soft - Rectal Exam Rectal Exam: Deferred - Exam Exam: NORMAL INSPECTION - Extremities Exam Extremities Exam: absent: Pedal Edema - Back Exam Back Exam: absent: CVA tenderness (L), CVA tenderness (R) Assessment and Plan (1) Non-ST elevated myocardial infarction (non-STEMI) Status: Acute (2) Peripheral visual field defect of both eyes Status: Acute (3) UTI (urinary tract infection) Status: Acute (4) CHF (congestive heart failure) Status: Chronic - Assessment and Plan (Free Text) Assessment: cont iv rx for sepsis / bactereina / UTI consider GI eval bacteroides in blood
--- NOTE | 2018-03-26 12:22 | PN ---
DATE: 03/26/2018 SUBJECTIVE: I saw her this morning in bed. She is yelling and screaming, wants to be adjusted in bed, spoke to the nurse to help with do that. She is on Apresoline, aspirin, DuoNebs,Flagyl, Lasix, Lidoderm, Merrem IV, morphine, Nephro-Karolyn, Norvasc, Protonix, Ranexa, Remeron, Singulair, Toprol, Tylenol, Xanax, and Zofran. PHYSICAL EXAMINATION: VITAL SIGNS: She has a 98.7 temp, 74 pulse, 141/71 blood pressure, 100% O2 sat on room air, 20 respiratory rate. HEENT: Head atraumatic and normocephalic. HEART: Regular rate. LUNGS: Decreased breath sounds, but clear. ABDOMEN: Soft. EXTREMITIES: Mildly contracted. No edema. LABORATORY DATA: She had blood test done yesterday. She had 13.2 white count, 11.8 hemoglobin, 34.5 hematocrit, 101 platelets. She also had a 3.1 potassium. I was not notified of that, thus we will replace it today, 148 sodium, BUN 54, creatinine 1.3, GFR is 40, sugar is 103, calcium is 8.8, though at this point AST is 19, ALT is 24, alkaline phosphatase 58, total protein 5.5. She is being seen by Dr. Torres, Infectious Disease, Dr. Burdick, Psychiatry for her outburst, her yelling and screaming and the patient needs to leave this hospital. It has been over hundred days. It is taking ever to get this Medicaid, Medicare, insurance issue keeping her in the hospital so long at which social service faster. ASSESSMENT AND PLAN: History of congestive heart failure, chronic obstructive pulmonary failure, chronic renal insufficiency, chronic pain, debility, anxiety, and now low potassium. John Brown DO MTDD
[2018-03-27] MEDS: Albuterol-Ipratrop 3 mg / 0.5 (3 ml) UD INH SCH ×4 (02:00→20:12)
[2018-03-27] MEDS: Meropenem 500 MG in Sodium Chloride 0.9% 100 ML IVPB SCH ×3 (05:27→21:29)
[2018-03-27] MEDS: metroNIDAZOLE IV 500 mg/100 ml 500 MG/100 ML BAG IVPB SCH ×3 (06:04→23:07)
[2018-03-27 08:11] LABS: HEMOGLOBIN 11.5 g/dL (11.0-16.0); MEAN CELL VOLUME 90.1 fL (81.0-99.0); MEAN CORPUSCULAR HEMOGLOBIN 30.1 pg (27.0-31.0); MEAN CORPUSCULAR HGB CONC 33.3 g/dL (33.0-37.0); MEAN PLATELET VOLUME 10.4 fL (7.2-11.7); RBC 3.81 Mil/uL (3.80-5.20); RED CELL DISTRIBUTION WIDTH 15.7 % (11.5-14.5); WHITE BLOOD COUNT 12.6 K/uL (4.8-10.8)
[2018-03-27 08:48] LABS: ALB/GLOB RATIO 1.1 (1.0-2.1); ALBUMIN 2.6 g/dL (3.5-5.0); CALCIUM 8.3 mg/dl (8.6-10.4)
[2018-03-27] MEDS: Multivitamin Vitamin B Complex (Nephro-Vite) Tab PO SCH (08:48)
[2018-03-27] MEDS: Potassium Chloride 20 mEq ER Tab PO SCH (09:48)
[2018-03-27] MEDS: Metoprolol Succinate 50 mg XL Tab PO SCH (09:49)
[2018-03-27] MEDS: Ranolazine 500 mg Extended Release Tablets PO SCH ×2 (09:49→17:08)
[2018-03-27] MEDS: Pantoprazole 40 mg EC Tab PO SCH (09:49)
[2018-03-27] MEDS: Lidocaine 5% Patch TD SCH (10:06)
--- NOTE | 2018-03-27 11:32 | PN ---
DATE: 03/27/2018 SUBJECTIVE: I saw Kathy. She was changed to room 559. She is very comfortable. She slept well. She is actually very calm and not yelling or screaming and in good spirits. She is on Apresoline, aspirin, DuoNeb, Flagyl, potassium, Lasix, Lidoderm, meropenem, morphine, Nephro-Karolyn, Norvasc, Protonix, Ranexa, Remeron, Singulair, Toprol, Tylenol, and Zofran. PHYSICAL EXAMINATION: GENERAL: She is thin and frail. VITAL SIGNS: She has a 98 temperature, 66 pulse, 115/55 blood pressure, 20 respiratory rate, 99% O2 sat on 3 L. HEENT: Head is atraumatic and normocephalic. HEART: Regular rate. LUNGS: Decreased breath sounds but clear. ABDOMEN: Soft. EXTREMITIES: No edema. LABORATORY DATA: Last labs from 03/26/2018, she has a 13.2 white count, a 12-week steady in the 13s, 12.7 hemoglobin, 236 platelets. She has a 145 sodium, potassium 3.8, BUN 60, creatinine 1, the best it has been in a while. GFR is sugar is 96, calcium is 8.8, total bili is 0.9, AST is 39, ALT is 20, alk phos 69, total protein 6.2, procalcitonin was 10.63, high. ASSESSMENT AND PLAN: We will continue with the antibiotics as per Infectious Disease. We will check her labs tomorrow. Try to get out of bed to chair. Physical therapy as best we can. She has congestive heart failure, chronic obstructive pulmonary disease, chronic pain, renal insufficiency, anxiety, debility, low potassium at times. Continue with aggressive treatment and care. Awaiting for placement. John Brown DO MTDD
--- NOTE | 2018-03-27 11:33 | CP.PCM.PN ---
Subjective - Date & Time of Evaluation Date of Evaluation: 03/27/18 Time of Evaluation: 07:00 - Subjective Subjective: t max down iv rx in progress Objective - Vital Signs/Intake and Output Vital Signs (last 24 hours): Temp Pulse Resp BP Pulse Ox 98.0 F 80 20 139/64 100 03/27/18 07:55 03/27/18 07:55 03/27/18 07:55 03/27/18 09:49 03/27/18 07:55 Intake and Output: 03/27/18 03/27/18 06:59 18:59 Intake Total 320 Balance 320 - Medications Medications: Current Medications Acetaminophen (Tylenol 325mg Tab) 650 mg PO Q6H PRN PRN Reason: Pain, Mild (1-3) Last Admin: 03/19/18 02:28 Dose: 650 mg Albuterol/Ipratropium (Duoneb 3 Mg/0.5 Mg (3 Ml) Ud) 3 ml INH RQ6 [facility] Last Admin: 03/27/18 02:00 Dose: Not Given Amlodipine Besylate (Norvasc) 10 mg PO QPM [facility] Last Admin: 03/26/18 17:19 Dose: 10 mg Aspirin (Aspirin Chewable) 81 mg PO DAILY [facility] Last Admin: 03/27/18 09:48 Dose: 81 mg Furosemide (Lasix) 20 mg PO BID [facility] Last Admin: 03/27/18 09:49 Dose: 20 mg Hydralazine HCl (Apresoline) 100 mg PO Q8 [facility] Last Admin: 03/27/18 06:03 Dose: 100 mg Meropenem 500 mg/ Sodium (Chloride) 100 mls @ 100 mls/hr IVPB Q8H [facility] PRN Reason: Protocol Last Admin: 03/27/18 05:27 Dose: 100 mls/hr Metronidazole (Flagyl) 500 mg in 100 mls @ 100 mls/hr IVPB Q8H [facility] PRN Reason: Protocol Last Admin: 03/27/18 06:04 Dose: 100 mls/hr Lidocaine (Lidoderm) 1 ea TD DAILY [facility] Last Admin: 03/27/18 10:06 Dose: 1 ea Metoprolol Succinate (Toprol Xl) 50 mg PO DAILY [facility] Last Admin: 03/27/18 09:49 Dose: 50 mg Mirtazapine (Remeron) 7.5 mg PO HS [facility] Last Admin: 03/26/18 23:11 Dose: Not Given Montelukast Sodium (Singulair) 10 mg PO DAILY [facility] Last Admin: 03/27/18 10:06 Dose: 10 mg Morphine Sulfate (Morphine) 1 mg IVP Q3H PRN PRN Reason: Pain, moderate (4-7) Last Admin: 03/27/18 11:16 Dose: 1 mg Ondansetron HCl (Zofran Inj) 4 mg IVP Q4H PRN PRN Reason: Nausea/Vomiting Last Admin: 03/20/18 00:31 Dose: 4 mg Pantoprazole Sodium (Protonix Ec Tab) 40 mg PO DAILY [facility] Last Admin: 03/27/18 09:49 Dose: 40 mg Potassium Chloride (K-Dur 20 Meq Er Tab) 20 meq PO DAILY [facility] Last Admin: 03/27/18 09:48 Dose: 20 meq Ranolazine (Ranexa) 500 mg PO BID [facility] Last Admin: 03/27/18 09:49 Dose: 500 mg Vitamin B Complex/Vit C/Folic Acid (Nephro-Karolyn) 1 tab PO 0800 [facility] Last Admin: 03/27/18 08:48 Dose: 1 tab - Labs Labs: 03/27/18 08:03 03/27/18 08:03 PT 13.6 SECONDS (9.7-12.2) H 01/15/18 07:10 INR 1.2 01/15/18 07:10 APTT 34 SECONDS (21-34) 12/09/17 00:22 Assessment and Plan (1) Non-ST elevated myocardial infarction (non-STEMI) Status: Acute (2) Peripheral visual field defect of both eyes Status: Acute (3) UTI (urinary tract infection) Status: Acute (4) CHF (congestive heart failure) Status: Chronic
[2018-03-27] MEDS ORDERED: Potassium Chloride 20 mEq ER Tab PO ONE (14:04)
[2018-03-28] MEDS: Albuterol-Ipratrop 3 mg / 0.5 (3 ml) UD INH SCH ×3 (01:34→13:48)
[2018-03-28] MEDS: Meropenem 500 MG in Sodium Chloride 0.9% 100 ML IVPB SCH ×3 (05:04→22:32)
[2018-03-28] MEDS: metroNIDAZOLE IV 500 mg/100 ml 500 MG/100 ML BAG IVPB SCH ×2 (06:19→15:01)
[2018-03-28 08:45] LABS: HEMOGLOBIN 11.3 g/dL (11.0-16.0); MEAN CORPUSCULAR HGB CONC 33.3 g/dL (33.0-37.0); MEAN PLATELET VOLUME 10.4 fL (7.2-11.7); RBC 3.78 Mil/uL (3.80-5.20); RED CELL DISTRIBUTION WIDTH 15.7 % (11.5-14.5); WHITE BLOOD COUNT 16.6 K/uL (4.8-10.8)
[2018-03-28] MEDS: Multivitamin Vitamin B Complex (Nephro-Vite) Tab PO SCH (08:50)
[2018-03-28] MEDS: Ranolazine 500 mg Extended Release Tablets PO SCH ×2 (09:02→18:03)
[2018-03-28] MEDS: Pantoprazole 40 mg EC Tab PO SCH (09:02)
[2018-03-28] MEDS: Potassium Chloride 20 mEq ER Tab PO SCH (09:02)
[2018-03-28] MEDS: Metoprolol Succinate 50 mg XL Tab PO SCH (09:02)
[2018-03-28] MEDS: Lidocaine 5% Patch TD SCH (09:03)
[2018-03-28 09:05] LABS: ALB/GLOB RATIO 1.3 (1.0-2.1); ALBUMIN 2.8 g/dL (3.5-5.0); CALCIUM 8.2 mg/dl (8.6-10.4)
--- NOTE | 2018-03-28 15:20 | CP.PCM.PN ---
Subjective - Date & Time of Evaluation Date of Evaluation: 03/28/18 Time of Evaluation: 08:00 - Subjective Subjective: awake alert afebrile iv rx in progress Objective - Vital Signs/Intake and Output Vital Signs (last 24 hours): Temp Pulse Resp BP Pulse Ox 97.4 F L 79 20 122/61 100 03/28/18 07:00 03/28/18 13:56 03/28/18 07:00 03/28/18 13:56 03/28/18 07:00 Intake and Output: 03/28/18 03/28/18 06:59 18:59 Intake Total 800 Balance 800 - Medications Medications: Current Medications Acetaminophen (Tylenol 325mg Tab) 650 mg PO Q6H PRN PRN Reason: Pain, Mild (1-3) Last Admin: 03/28/18 06:24 Dose: 650 mg Albuterol/Ipratropium (Duoneb 3 Mg/0.5 Mg (3 Ml) Ud) 3 ml INH RQ6 [facility] Last Admin: 03/28/18 13:48 Dose: Not Given Amlodipine Besylate (Norvasc) 10 mg PO QPM [facility] Last Admin: 03/27/18 17:08 Dose: 10 mg Aspirin (Aspirin Chewable) 81 mg PO DAILY [facility] Last Admin: 03/28/18 09:03 Dose: 81 mg Furosemide (Lasix) 20 mg PO BID [facility] Last Admin: 03/28/18 09:02 Dose: 20 mg Hydralazine HCl (Apresoline) 100 mg PO Q8 [facility] Last Admin: 03/28/18 13:56 Dose: 100 mg Meropenem 500 mg/ Sodium (Chloride) 100 mls @ 100 mls/hr IVPB Q8H [facility] PRN Reason: Protocol Last Admin: 03/28/18 13:46 Dose: 100 mls/hr Metronidazole (Flagyl) 500 mg in 100 mls @ 100 mls/hr IVPB Q8H [facility] PRN Reason: Protocol Last Admin: 03/28/18 15:01 Dose: 100 mls/hr Lidocaine (Lidoderm) 1 ea TD DAILY [facility] Last Admin: 03/28/18 09:03 Dose: 1 ea Metoprolol Succinate (Toprol Xl) 50 mg PO DAILY [facility] Last Admin: 03/28/18 09:02 Dose: 50 mg Mirtazapine (Remeron) 7.5 mg PO HS [facility] Last Admin: 03/27/18 21:29 Dose: 7.5 mg Montelukast Sodium (Singulair) 10 mg PO DAILY [facility] Last Admin: 03/28/18 09:03 Dose: 10 mg Morphine Sulfate (Morphine) 1 mg IVP Q3H PRN PRN Reason: Pain, moderate (4-7) Last Admin: 03/28/18 12:30 Dose: 1 mg Ondansetron HCl (Zofran Inj) 4 mg IVP Q4H PRN PRN Reason: Nausea/Vomiting Last Admin: 03/20/18 00:31 Dose: 4 mg Pantoprazole Sodium (Protonix Ec Tab) 40 mg PO DAILY [facility] Last Admin: 03/28/18 09:02 Dose: 40 mg Potassium Chloride (K-Dur 20 Meq Er Tab) 20 meq PO DAILY [facility] Last Admin: 03/27/18 09:48 Dose: 20 meq Potassium Chloride (K-Dur 20 Meq Er Tab) 20 meq PO DAILY [facility] Last Admin: 03/28/18 09:02 Dose: 20 meq Ranolazine (Ranexa) 500 mg PO BID [facility] Last Admin: 03/28/18 09:02 Dose: 500 mg Vitamin B Complex/Vit C/Folic Acid (Nephro-Karolyn) 1 tab PO 0800 [facility] Last Admin: 03/28/18 08:50 Dose: 1 tab - Labs Labs: 03/28/18 08:22 03/28/18 08:22 PT 13.6 SECONDS (9.7-12.2) H 01/15/18 07:10 INR 1.2 01/15/18 07:10 APTT 34 SECONDS (21-34) 12/09/17 00:22 - Constitutional Appears: Non-toxic, Chronically Ill - Head Exam Head Exam: NORMOCEPHALIC - Eye Exam Eye Exam: PERRL - ENT Exam ENT Exam: Mucous Membranes Dry - Neck Exam Neck Exam: absent: Lymphadenopathy - Respiratory Exam Respiratory Exam: Decreased Breath Sounds - Cardiovascular Exam Cardiovascular Exam: REGULAR RHYTHM - GI/Abdominal Exam GI & Abdominal Exam: Distended, Soft - Rectal Exam Rectal Exam: Deferred - Exam Exam: NORMAL INSPECTION Assessment and Plan (1) Non-ST elevated myocardial infarction (non-STEMI) Status: Acute (2) Peripheral visual field defect of both eyes Status: Acute (3) UTI (urinary tract infection) Status: Acute (4) CHF (congestive heart failure) Status: Chronic
[2018-03-29] MEDS: Albuterol-Ipratrop 3 mg / 0.5 (3 ml) UD INH SCH ×3 (01:32→13:12)
--- NOTE | 2018-03-29 05:22 | PN ---
DATE: 03/28/2018 SUBJECTIVE: She is sitting comfortably in bed. She tells me she is doing better overall today, so wants to leave. In the beginning of her conversation, she was calm and pleasant, but during the conversation, she was very upset as she is still here. Presently on aspirin, DuoNeb, Flagyl IV now, potassium, Lasix, Lidoderm, Merrem IV, morphine, Nephro-Karolyn, Norvasc, Protonix, Ranexa, Remeron, Singulair, Toprol, Tylenol, and Zofran. PHYSICAL EXAMINATION: VITAL SIGNS: 97.7 temp, 72 pulse, 122/58 blood pressure, 20 respiratory rate, 100% O2 saturation on 3 L. HEENT: Head is atraumatic and normocephalic. She is alert and talking better today. HEART: Regular rate. LUNGS: Decreased breath sounds. ABDOMEN: Soft. EXTREMITIES: No edema. She tells me she is weak, did not get physical therapy and cannot walk anymore. LABORATORY DATA: She has a 12.6 white count, better, 11.5 hemoglobin, 34.4 hematocrit, and 220 platelets. The white count is slowly coming down, hope it continues. 145 sodium, 3.2 potassium, got to replace potassium again. BUN 57, creatinine 1.2, definitely improving. GFR is 54, calcium is 8.3, total bilirubin is 0.6, AST is 20, ALT is 23, alkaline phosphatase 50, total protein 4.8. She has been seen by Dr. Torres of Infectious Disease, and adjusting her IV antibiotics. ASSESSMENT AND PLAN: Congestive heart failure, chronic obstructive pulmonary disease, chronic renal insufficiency, chronic abdominal pain, non ST elevation myocardial infarction, severe urinary tract infection. We will continue with the aggressive treatment and care, order labs tomorrow, get physical therapy back in. Waiting for [employer]. Plan of care discussed with case management and social media project manager. Hopefully, sooner rather than later . John Brown DO [facility]PITAL[facility]
[2018-03-29] MEDS: Meropenem 500 MG in Sodium Chloride 0.9% 100 ML IVPB SCH ×3 (05:43→22:09)
[2018-03-29] MEDS: metroNIDAZOLE IV 500 mg/100 ml 500 MG/100 ML BAG IVPB SCH ×4 (08:14→22:12)
[2018-03-29] MEDS: Multivitamin Vitamin B Complex (Nephro-Vite) Tab PO SCH (08:17)
--- NOTE | 2018-03-29 08:20 | PN ---
DATE: 03/29/2018 SUBJECTIVE: She is alert and comfortable in bed this morning but she looked such She is on Apresoline, aspirin, DuoNeb, Flagyl, potassium, Lasix, Lidoderm, Merrem, morphine, Nephro-Karolyn, Norvasc, Protonix, Ranexa, Remeron, Singulair, Toprol, Tylenol, Zofran. PHYSICAL EXAMINATION: VITAL SIGNS: Temperature 98.7, pulse 72, blood pressure 108/59, respiratory rate 18, O2 sat of 98% on 3 L nasal cannula. HEENT: Head is atraumatic, normocephalic. HEART: Regular rate.. LUNGS: Decreased breath sounds but clear. ABDOMEN: Soft. EXTREMITIES: No edema. GENERAL: She is thin and frail. LABORATORY DATA: She has a 16.6 white count, 11.3 hemoglobin, 34 hematocrit with a 260 platelets. She is on antibiotics for infectious disease. Sodium is 140, potassium 3.7, BUN 53, creatinine 1.2, GFR is 44, kidneys are better. Random sugar is 90. Calcium is 8.2. Total bilirubin is 0.6. AST is 18, ALT is 24, alkaline phosphatase is 54. Total protein is 5. She is still dealing with this elevated white count, is on antibiotics by Infectious Disease. We are still waiting for case management, manager social media, and medicare to get her insurance discharge her. She is on IV antibiotics. She is here for acute kidney injury, congestive heart failure, chronic obstructive pulmonary disease, chronic pain, renal insufficiency, and placement, hoping that her white count would decrease with the antibiotics as per Infectious Disease. Continue to get out of bed to chair. John Brown DO MTDJeaneth
[2018-03-29] MEDS: Potassium Chloride 20 mEq ER Tab PO SCH ×2 (09:57→09:58)
[2018-03-29] MEDS: Ranolazine 500 mg Extended Release Tablets PO SCH ×2 (09:58→23:01)
[2018-03-29] MEDS: Pantoprazole 40 mg EC Tab PO SCH (09:58)
[2018-03-29] MEDS: Metoprolol Succinate 50 mg XL Tab PO SCH (09:59)
[2018-03-29] MEDS: Lidocaine 5% Patch TD SCH (09:59)
--- NOTE | 2018-03-29 18:30 | CP.PCM.PN ---
Subjective - Date & Time of Evaluation Date of Evaluation: 03/29/18 Time of Evaluation: 08:00 - Subjective Subjective: repeat cultures neg thus far cont iv rx for min 14 days consider and GI eval Objective - Vital Signs/Intake and Output Vital Signs (last 24 hours): Temp Pulse Resp BP Pulse Ox 98.1 F 83 20 106/54 L 97 03/29/18 15:28 03/29/18 15:28 03/29/18 15:28 03/29/18 15:28 03/29/18 15:28 Intake and Output: 03/29/18 03/29/18 06:59 18:59 Intake Total 450 Balance 450 - Medications Medications: Current Medications Acetaminophen (Tylenol 325mg Tab) 650 mg PO Q6H PRN PRN Reason: Pain, Mild (1-3) Last Admin: 03/28/18 06:24 Dose: 650 mg Albuterol/Ipratropium (Duoneb 3 Mg/0.5 Mg (3 Ml) Ud) 3 ml INH RQ6 [facility] Last Admin: 03/29/18 13:12 Dose: Not Given Amlodipine Besylate (Norvasc) 10 mg PO QPM [facility] Last Admin: 03/29/18 17:43 Dose: Not Given Aspirin (Aspirin Chewable) 81 mg PO DAILY [facility] Last Admin: 03/29/18 09:56 Dose: Not Given Furosemide (Lasix) 20 mg PO BID [facility] Last Admin: 03/29/18 17:43 Dose: Not Given Hydralazine HCl (Apresoline) 100 mg PO Q8 [facility] Last Admin: 03/29/18 14:35 Dose: 100 mg Meropenem 500 mg/ Sodium (Chloride) 100 mls @ 100 mls/hr IVPB Q8H [facility] PRN Reason: Protocol Last Admin: 03/29/18 14:34 Dose: 100 mls/hr Metronidazole (Flagyl) 500 mg in 100 mls @ 100 mls/hr IVPB Q8H [facility] PRN Reason: Protocol Last Admin: 03/29/18 15:04 Dose: 100 mls/hr Lidocaine (Lidoderm) 1 ea TD DAILY [facility] Last Admin: 03/29/18 09:59 Dose: Not Given Metoprolol Succinate (Toprol Xl) 50 mg PO DAILY [facility] Last Admin: 03/29/18 09:59 Dose: Not Given Mirtazapine (Remeron) 7.5 mg PO HS [facility] Last Admin: 03/28/18 22:37 Dose: 7.5 mg Montelukast Sodium (Singulair) 10 mg PO DAILY [facility] Last Admin: 03/29/18 09:58 Dose: Not Given Morphine Sulfate (Morphine) 1 mg IVP Q3H PRN PRN Reason: Pain, moderate (4-7) Last Admin: 03/29/18 12:15 Dose: 1 mg Ondansetron HCl (Zofran Inj) 4 mg IVP Q4H PRN PRN Reason: Nausea/Vomiting Last Admin: 03/20/18 00:31 Dose: 4 mg Pantoprazole Sodium (Protonix Ec Tab) 40 mg PO DAILY [facility] Last Admin: 03/29/18 09:58 Dose: Not Given Potassium Chloride (K-Dur 20 Meq Er Tab) 20 meq PO DAILY [facility] Last Admin: 03/29/18 09:57 Dose: Not Given Potassium Chloride (K-Dur 20 Meq Er Tab) 20 meq PO DAILY [facility] Last Admin: 03/29/18 09:58 Dose: Not Given Ranolazine (Ranexa) 500 mg PO BID [facility] Last Admin: 03/29/18 09:58 Dose: Not Given Vitamin B Complex/Vit C/Folic Acid (Nephro-Karolyn) 1 tab PO 0800 [facility] Last Admin: 03/29/18 08:17 Dose: Not Given - Labs Labs: 03/28/18 08:22 03/28/18 08:22 PT 13.6 SECONDS (9.7-12.2) H 01/15/18 07:10 INR 1.2 01/15/18 07:10 APTT 34 SECONDS (21-34) 12/09/17 00:22 - Constitutional Appears: Non-toxic, Chronically Ill - Head Exam Head Exam: NORMOCEPHALIC - Eye Exam Eye Exam: PERRL - ENT Exam ENT Exam: Mucous Membranes Dry - Neck Exam Neck Exam: absent: Lymphadenopathy - Respiratory Exam Respiratory Exam: Decreased Breath Sounds - Cardiovascular Exam Cardiovascular Exam: REGULAR RHYTHM - GI/Abdominal Exam GI & Abdominal Exam: Distended - Rectal Exam Rectal Exam: Deferred - Exam Exam: NORMAL INSPECTION Assessment and Plan (1) Non-ST elevated myocardial infarction (non-STEMI) Status: Acute (2) Peripheral visual field defect of both eyes Status: Acute (3) UTI (urinary tract infection) Status: Acute (4) CHF (congestive heart failure) Status: Chronic - Assessment and Plan (Free Text) Assessment: repeat cultures neg thus far cont iv rx for min 14 days consider and GI eval
[2018-03-30] MEDS: Albuterol-Ipratrop 3 mg / 0.5 (3 ml) UD INH SCH ×4 (01:14→19:41)
[2018-03-30] MEDS: Meropenem 500 MG in Sodium Chloride 0.9% 100 ML IVPB SCH ×3 (05:11→21:16)
[2018-03-30] MEDS: metroNIDAZOLE IV 500 mg/100 ml 500 MG/100 ML BAG IVPB SCH ×3 (06:11→22:44)
[2018-03-30] MEDS ORDERED: Bismuth Subsalicylate 262 mg/15 ml Sus (240 ml) PO PRN (06:46)
[2018-03-30] MEDS: Multivitamin Vitamin B Complex (Nephro-Vite) Tab PO SCH (08:22)
[2018-03-30] MEDS: Potassium Chloride 20 mEq ER Tab PO SCH ×2 (09:22→10:37)
[2018-03-30] MEDS: Ranolazine 500 mg Extended Release Tablets PO SCH ×2 (10:22→17:27)
[2018-03-30] MEDS: Pantoprazole 40 mg EC Tab PO SCH (10:24)
[2018-03-30] MEDS: Metoprolol Succinate 50 mg XL Tab PO SCH (10:24)
[2018-03-30] MEDS: Lidocaine 5% Patch TD SCH (10:54)
[2018-03-30 11:18] LABS: BASO # 0.2 K/uL (0.0-0.2); BASO % 1.2 % (0.0-2.0); EOS # 0.2 K/uL (0.0-0.7); EOS % 1.7 % (0.0-4.0); HEMOGLOBIN 12.2 g/dL (11.0-16.0); LYMPH # 0.7 K/uL (1.0-4.3); LYMPH % 4.6 % (20.0-40.0); MEAN CELL VOLUME 89.9 fL (81.0-99.0); MEAN CORPUSCULAR HEMOGLOBIN 29.4 pg (27.0-31.0); MEAN CORPUSCULAR HGB CONC 32.7 g/dL (33.0-37.0); MEAN PLATELET VOLUME 10.5 fL (7.2-11.7); MONO # 0.3 K/uL (0.0-0.8); MONO % 2.4 % (0.0-10.0); NEUT # 12.7 K/uL (1.8-7.0); NEUT % 90.1 % (50.0-75.0); PLATELET COUNT 330 K/uL (130-400); RBC 4.16 Mil/uL (3.80-5.20); RED CELL DISTRIBUTION WIDTH 16.1 % (11.5-14.5); WHITE BLOOD COUNT 14.1 K/uL (4.8-10.8)
[2018-03-30 11:36] LABS: ALB/GLOB RATIO 1.2 (1.0-2.1); ALBUMIN 2.7 g/dL (3.5-5.0); CALCIUM 8.2 mg/dl (8.6-10.4)
[2018-03-30 12:34] LABS: EOSINOPHIL 1 % (0-4); MONOCYTE 2 % (0-10); PLATELET ESTIMATE NORMAL (NORMAL); TOTAL CELLS COUNTED 100
[2018-03-30 12:37] LABS: LYMPHOCYTE 2 % (20-40); NEUTROPHIL 95 % (50-75)
--- NOTE | 2018-03-30 14:35 | PN ---
DATE: 03/30/2018 SUBJECTIVE: She is alert and comfortable. Very pleasant this morning, in a new room. She is looking for food, she's hungry. She's had diarrhea, the nurse called me. I will check her C. difficile and also . PHYSICAL EXAMINATION: VITAL SIGNS: 97.9 temperature, 81 pulse, 107/81 blood pressure, 20 respiratory rate, and 97% O2 sat on 2 liters. HEENT: Atraumatic and normocephalic. HEART: Regular rate. LUNGS: Decreased breath sounds. ABDOMEN: Soft and obese throughout, nontender. Positive bowel sounds. EXTREMITIES: No edema. She is currently on Apresoline, aspirin, DuoNeb, Flagyl IV, potassium, Lasix, Lidoderm, Merrem IV, morphine, Nephro-Karolyn, Norvasc, Pepto-Bismol, Protonix, Ranexa, Remeron, Toprol, Zofran. I decreased her Norvasc to 5 mg from 10 mg, the blood pressures have been low lately. She is being seen by Infectious Disease. We are trying to get the next blood test to see how her white count is BUN and creatinine, but she has been refusing. Hopefully, she will allow us to get the blood test tomorrow. We will get a C. difficile level, p.r.n. We will get her out of bed to chair daily. We will decrease the Norvasc to 5 mg, the blood pressures are running low. Waiting for director of social media marketing, case management to help us with the Medicaid numbers, so she can go to a facility or home. She has congestive heart failure, chronic obstruction pulmonary disease, renal insufficiency, chronic pain, and urinary tract infection. John Brown DO MTDD
--- NOTE | 2018-03-30 17:50 | CP.PCM.PN ---
Subjective - Date & Time of Evaluation Date of Evaluation: 03/30/18 Time of Evaluation: 08:00 - Subjective Subjective: afeb nad wbc trending down repeat blood c/s sent Objective - Vital Signs/Intake and Output Vital Signs (last 24 hours): Temp Pulse Resp BP Pulse Ox 98.3 F 57 L 20 120/66 95 03/30/18 09:22 03/30/18 09:22 03/30/18 09:22 03/30/18 17:27 03/30/18 09:22 Intake and Output: 03/30/18 03/30/18 06:59 18:59 Intake Total 750 550 Output Total 1 Balance 749 550 - Medications Medications: Current Medications Acetaminophen (Tylenol 325mg Tab) 650 mg PO Q6H PRN PRN Reason: Pain, Mild (1-3) Last Admin: 03/30/18 14:25 Dose: 650 mg Albuterol/Ipratropium (Duoneb 3 Mg/0.5 Mg (3 Ml) Ud) 3 ml INH RQ6 [facility]ELIPE Last Admin: 03/30/18 13:27 Dose: Not Given Amlodipine Besylate (Norvasc) 5 mg PO QPM [facility] Last Admin: 03/30/18 17:27 Dose: 5 mg Aspirin (Aspirin Chewable) 81 mg PO DAILY [facility] Last Admin: 03/30/18 10:22 Dose: 81 mg Bismuth Subsalicylate (Pepto-Bismol) 262 mg PO Q8H PRN PRN Reason: Diarrhea Furosemide (Lasix) 20 mg PO BID [facility] Last Admin: 03/30/18 17:27 Dose: 20 mg Hydralazine HCl (Apresoline) 100 mg PO Q8 [facility] Last Admin: 03/30/18 14:15 Dose: 100 mg Meropenem 500 mg/ Sodium (Chloride) 100 mls @ 100 mls/hr IVPB Q8H [facility] PRN Reason: Protocol Last Admin: 03/30/18 14:15 Dose: 100 mls/hr Metronidazole (Flagyl) 500 mg in 100 mls @ 100 mls/hr IVPB Q8H [facility] PRN Reason: Protocol Last Admin: 03/30/18 15:15 Dose: 100 mls/hr Lidocaine (Lidoderm) 1 ea TD DAILY [facility] Last Admin: 03/30/18 10:54 Dose: 1 ea Metoprolol Succinate (Toprol Xl) 50 mg PO DAILY [facility] Last Admin: 03/30/18 10:24 Dose: 50 mg Mirtazapine (Remeron) 7.5 mg PO HS [facility] Last Admin: 03/29/18 23:01 Dose: 7.5 mg Montelukast Sodium (Singulair) 10 mg PO DAILY [facility] Last Admin: 03/30/18 10:24 Dose: 10 mg Morphine Sulfate (Morphine) 1 mg IVP Q3H PRN PRN Reason: Pain, moderate (4-7) Last Admin: 03/30/18 10:38 Dose: 1 mg Ondansetron HCl (Zofran Inj) 4 mg IVP Q4H PRN PRN Reason: Nausea/Vomiting Last Admin: 03/20/18 00:31 Dose: 4 mg Pantoprazole Sodium (Protonix Ec Tab) 40 mg PO DAILY [facility] Last Admin: 03/30/18 10:24 Dose: 40 mg Potassium Chloride (K-Dur 20 Meq Er Tab) 20 meq PO DAILY [facility] Last Admin: 03/30/18 10:37 Dose: 20 meq Potassium Chloride (K-Dur 20 Meq Er Tab) 20 meq PO DAILY [facility] Last Admin: 03/30/18 09:22 Dose: Not Given Ranolazine (Ranexa) 500 mg PO BID [facility] Last Admin: 03/30/18 17:27 Dose: 500 mg Vitamin B Complex/Vit C/Folic Acid (Nephro-Karolyn) 1 tab PO 0800 [facility] Last Admin: 03/30/18 08:22 Dose: 1 tab - Labs Labs: 03/30/18 11:12 03/30/18 11:12 PT 13.6 SECONDS (9.7-12.2) H 01/15/18 07:10 INR 1.2 01/15/18 07:10 APTT 34 SECONDS (21-34) 12/09/17 00:22 - Constitutional Appears: Non-toxic, Confused, Chronically Ill - Head Exam Head Exam: NORMOCEPHALIC - Eye Exam Eye Exam: PERRL - ENT Exam ENT Exam: Mucous Membranes Dry - Neck Exam Neck Exam: absent: Lymphadenopathy - Respiratory Exam Respiratory Exam: Decreased Breath Sounds - Cardiovascular Exam Cardiovascular Exam: REGULAR RHYTHM - GI/Abdominal Exam GI & Abdominal Exam: Distended, Soft Assessment and Plan (1) Non-ST elevated myocardial infarction (non-STEMI) Status: Acute (2) Peripheral visual field defect of both eyes Status: Acute (3) UTI (urinary tract infection) Status: Acute (4) CHF (congestive heart failure) Status: Chronic
[2018-03-31] MEDS: Albuterol-Ipratrop 3 mg / 0.5 (3 ml) UD INH SCH ×4 (01:17→19:58)
[2018-03-31] MEDS: Meropenem 500 MG in Sodium Chloride 0.9% 100 ML IVPB SCH ×4 (05:15→21:29)
[2018-03-31] MEDS: metroNIDAZOLE IV 500 mg/100 ml 500 MG/100 ML BAG IVPB SCH ×3 (06:16→22:52)
[2018-03-31 08:06] LABS: HEMOGLOBIN 11.3 g/dL (11.0-16.0); MEAN CORPUSCULAR HEMOGLOBIN 29.6 pg (27.0-31.0); MEAN CORPUSCULAR HGB CONC 33.3 g/dL (33.0-37.0); MEAN PLATELET VOLUME 10.4 fL (7.2-11.7); RBC 3.83 Mil/uL (3.80-5.20); WHITE BLOOD COUNT 12.4 K/uL (4.8-10.8)
[2018-03-31] MEDS: Multivitamin Vitamin B Complex (Nephro-Vite) Tab PO SCH (08:27)
[2018-03-31 08:57] LABS: ALB/GLOB RATIO 1.2 (1.0-2.1); ALBUMIN 2.6 g/dL (3.5-5.0); CALCIUM 8.2 mg/dl (8.6-10.4)
[2018-03-31] MEDS ORDERED: Potassium Chloride 20 mEq ER Tab PO ONE (10:00)
[2018-03-31] MEDS: Ranolazine 500 mg Extended Release Tablets PO SCH ×2 (10:35→17:29)
[2018-03-31] MEDS: Lidocaine 5% Patch TD SCH ×3 (10:35→10:58)
[2018-03-31] MEDS: Pantoprazole 40 mg EC Tab PO SCH (10:36)
[2018-03-31] MEDS: Metoprolol Succinate 50 mg XL Tab PO SCH (10:36)
[2018-03-31] MEDS: Potassium Chloride 20 mEq ER Tab PO SCH ×3 (10:38→11:33)
--- NOTE | 2018-03-31 14:25 | PN ---
DATE: 03/31/2018 SUBJECTIVE: I saw her is resting comfortably in bed. She is in good spirits actually this morning. No complaints. She would like to leave, but she is calm, not yelling or screaming. MEDICATIONS: She is on Apresoline, aspirin, Duoneb, Flagyl, potassium, Lasix, Lidoderm, Merrem IV, morphine as needed, Nephro-Karolyn, Norvasc, Pepcid, Protonix, Ranexa, Remeron, Singulair, Toprol, Tylenol, and Zofran. PHYSICAL EXAMINATION: GENERAL: She is thin and frail. VITAL SIGNS: She has 97.5 temperature, 88 pulse,133/62 blood pressure, 20 respiratory rate, and 100% O2 sat on 3 L nasal cannula. HEENT: Head is atraumatic and normocephalic. HEART: Regular rate. LUNGS: Decreased breath sounds, but clear. ABDOMEN: Soft. EXTREMITIES: Without edema. LABORATORY DATA: On the , she has 14.1 white count, it came down a little bit; 12.2 hemoglobin; 37.4 hematocrit; and 330 platelets. She has 141 sodium, 3.9 potassium, BUN 13, creatinine 1.2, GFR is 44, sugar is 84, calcium is 8.2, total bilirubin is 0.7, AST is 23, ALT is 24, alkaline phosphate 35, and total protein is 4.8. She did have gram negative rods in the urine and Bacteroides micron in the blood and Proteus mirabilis and gram positive cocci in the urine. She is being seen by Infectious Disease. She is on antibiotics. Her white count is down to 14, it was high at 16. We will continue with aggressive treatment and care as per Infectious Disease. She has congestive heart failure, chronic obstructive pulmonary disease, urinary tract infection, low potassium on and off, debility, anxiety, renal insufficiency, chronic pain. We will check her labs tomorrow. Try to get her out of bed to chair. John Brown DO [facility]
[2018-04-01] MEDS: Albuterol-Ipratrop 3 mg / 0.5 (3 ml) UD INH SCH ×4 (04:56→20:53)
[2018-04-01] MEDS: Meropenem 500 MG in Sodium Chloride 0.9% 100 ML IVPB SCH ×3 (05:58→21:53)
[2018-04-01] MEDS: metroNIDAZOLE IV 500 mg/100 ml 500 MG/100 ML BAG IVPB SCH ×2 (07:50→15:52)
[2018-04-01] MEDS: Multivitamin Vitamin B Complex (Nephro-Vite) Tab PO SCH (07:51)
[2018-04-01] MEDS: Potassium Chloride 20 mEq ER Tab PO SCH ×2 (11:02)
[2018-04-01] MEDS: Metoprolol Succinate 50 mg XL Tab PO SCH (11:03)
[2018-04-01] MEDS: Pantoprazole 40 mg EC Tab PO SCH (11:03)
[2018-04-01] MEDS: Lidocaine 5% Patch TD SCH (11:03)
[2018-04-01] MEDS: Ranolazine 500 mg Extended Release Tablets PO SCH ×2 (11:03→18:05)
--- NOTE | 2018-04-01 13:19 | PN ---
DATE: 04/01/2018 SUBJECTIVE: I saw Kathy in bed. She is very upset this morning, not letting me do the bloods so I do not think they give her the antibiotics. She is in her ways and means. MEDICATIONS: She is on Apresoline, aspirin, DuoNeb, Flagyl, potassium, Lasix, Lidoderm, Merrem, morphine, Nephro-Karolyn, Norvasc, Pepto-Bismol, Protonix, Ranexa, Remeron, Singulair, Toprol, Tylenol, and Zofran. PHYSICAL EXAMINATION: GENERAL: She is just not in a good mood. VITAL SIGNS: Temperature 97.5, pulse 75, blood pressure 136/69, respiratory rate 16, and O2 sat 99% on room air. HEENT: Head is atraumatic, normocephalic. CARDIOPULMONARY: Regular rate and rhythm. LUNGS: Decreased breath sounds, but clear. ABDOMEN: Soft. EXTREMITIES: No edema. LABORATORY DATA: Since 03/31/2018, her white count did drop to 12.4, hemoglobin 11.3, platelets are 299, so it is definitely improving with the antibiotics. Sodium 142, potassium 3.3. She is on potassium. BUN is 46, creatinine 1.2, the best it has been, GFR is 44, sugar is 78, calcium is 8.2, total bilirubin is 0.7. AST is 17, ALT is 26, alk phos 55, total protein is 4.9. Flu was negative. C. diff was negative. She has been seen by Infectious Disease, on antibiotics, was fine. Check her labs tomorrow. Mood, has been in a better mood. This is her baseline, worse some days, better than others. From her psychiatric issues, clinically, she is improving a little bit. ASSESSMENT AND PLAN: She has infection, congestive heart failure, chronic obstructive pulmonary disease, chronic pain, renal insufficiency and hopefully, she will change her mind and allow us to do blood test and give the antibiotics IV. John Brown DO [facility]
--- NOTE | 2018-04-01 13:40 | CP.PCM.PN ---
Subjective - Date & Time of Evaluation Date of Evaluation: 04/01/18 Time of Evaluation: 08:00 - Subjective Subjective: afeb NAD iv rx renewed needs min 14 days rx consider and GI eval Objective - Vital Signs/Intake and Output Vital Signs (last 24 hours): Temp Pulse Resp BP Pulse Ox 97.5 F L 75 16 136/69 99 03/31/18 23:11 03/31/18 23:11 03/31/18 23:11 03/31/18 23:11 03/31/18 23:11 Intake and Output: 04/01/18 04/01/18 06:59 18:59 Intake Total 550 Balance 550 - Medications Medications: Current Medications Acetaminophen (Tylenol 325mg Tab) 650 mg PO Q6H PRN PRN Reason: Pain, Mild (1-3) Last Admin: 03/30/18 14:25 Dose: 650 mg Albuterol/Ipratropium (Duoneb 3 Mg/0.5 Mg (3 Ml) Ud) 3 ml INH RQ6 [facility] Last Admin: 04/01/18 13:38 Dose: Not Given Amlodipine Besylate (Norvasc) 5 mg PO QPM [facility] Last Admin: 03/31/18 17:29 Dose: 5 mg Aspirin (Aspirin Chewable) 81 mg PO DAILY [facility] Last Admin: 04/01/18 11:02 Dose: Not Given Bismuth Subsalicylate (Pepto-Bismol) 262 mg PO Q8H PRN PRN Reason: Diarrhea Furosemide (Lasix) 20 mg PO BID [facility] Last Admin: 04/01/18 11:03 Dose: Not Given Hydralazine HCl (Apresoline) 100 mg PO Q8 [facility] Last Admin: 04/01/18 05:54 Dose: Not Given Meropenem 500 mg/ Sodium (Chloride) 100 mls @ 100 mls/hr IVPB Q8H [facility] PRN Reason: Protocol Last Admin: 04/01/18 05:58 Dose: Not Given Metronidazole (Flagyl) 500 mg in 100 mls @ 100 mls/hr IVPB Q8H [facility] PRN Reason: Protocol Last Admin: 04/01/18 07:50 Dose: Not Given Lidocaine (Lidoderm) 1 ea TD DAILY [facility] Last Admin: 04/01/18 11:03 Dose: Not Given Metoprolol Succinate (Toprol Xl) 50 mg PO DAILY [facility] Last Admin: 04/01/18 11:03 Dose: Not Given Mirtazapine (Remeron) 7.5 mg PO HS [facility] Last Admin: 03/31/18 21:25 Dose: 7.5 mg Montelukast Sodium (Singulair) 10 mg PO DAILY [facility] Last Admin: 04/01/18 11:03 Dose: Not Given Morphine Sulfate (Morphine) 1 mg IVP Q3H PRN PRN Reason: Pain, moderate (4-7) Last Admin: 04/01/18 00:20 Dose: 1 mg Ondansetron HCl (Zofran Inj) 4 mg IVP Q4H PRN PRN Reason: Nausea/Vomiting Last Admin: 03/31/18 11:35 Dose: 4 mg Pantoprazole Sodium (Protonix Ec Tab) 40 mg PO DAILY [facility] Last Admin: 04/01/18 11:03 Dose: Not Given Potassium Chloride (K-Dur 20 Meq Er Tab) 20 meq PO DAILY [facility] Last Admin: 04/01/18 11:02 Dose: Not Given Potassium Chloride (K-Dur 20 Meq Er Tab) 20 meq PO DAILY [facility] Last Admin: 04/01/18 11:02 Dose: Not Given Ranolazine (Ranexa) 500 mg PO BID [facility] Last Admin: 04/01/18 11:03 Dose: Not Given Vitamin B Complex/Vit C/Folic Acid (Nephro-Karolyn) 1 tab PO 0800 [facility] Last Admin: 04/01/18 07:51 Dose: Not Given - Labs Labs: 03/31/18 07:46 03/31/18 07:46 PT 13.6 SECONDS (9.7-12.2) H 01/15/18 07:10 INR 1.2 01/15/18 07:10 APTT 34 SECONDS (21-34) 12/09/17 00:22 - Constitutional Appears: Non-toxic, Chronically Ill - Head Exam Head Exam: NORMOCEPHALIC - Eye Exam Eye Exam: PERRL - ENT Exam ENT Exam: Mucous Membranes Dry - Neck Exam Neck Exam: absent: Lymphadenopathy - Respiratory Exam Respiratory Exam: Decreased Breath Sounds - Cardiovascular Exam Cardiovascular Exam: REGULAR RHYTHM - GI/Abdominal Exam GI & Abdominal Exam: Distended - Rectal Exam Rectal Exam: Deferred - Exam Exam: NORMAL INSPECTION - Extremities Exam Extremities Exam: absent: Pedal Edema - Back Exam Back Exam: absent: CVA tenderness (L), CVA tenderness (R) Assessment and Plan (1) Non-ST elevated myocardial infarction (non-STEMI) Status: Acute (2) Peripheral visual field defect of both eyes Status: Acute (3) UTI (urinary tract infection) Status: Acute (4) CHF (congestive heart failure) Status: Chronic - Assessment and Plan (Free Text) Assessment: iv rx renewed needs min 14 days rx consider and GI eval
[2018-04-02] MEDS: metroNIDAZOLE IV 500 mg/100 ml 500 MG/100 ML BAG IVPB SCH ×4 (01:24→22:14)
[2018-04-02] MEDS: Albuterol-Ipratrop 3 mg / 0.5 (3 ml) UD INH SCH ×3 (01:45→19:00)
[2018-04-02] MEDS: Meropenem 500 MG in Sodium Chloride 0.9% 100 ML IVPB SCH ×3 (06:28→21:15)
[2018-04-02 07:21] LABS: HEMOGLOBIN 12.6 g/dL (11.0-16.0); MEAN CELL VOLUME 89.9 fL (81.0-99.0); MEAN CORPUSCULAR HEMOGLOBIN 29.6 pg (27.0-31.0); MEAN CORPUSCULAR HGB CONC 32.9 g/dL (33.0-37.0); MEAN PLATELET VOLUME 10.1 fL (7.2-11.7); RBC 4.27 Mil/uL (3.80-5.20); RED CELL DISTRIBUTION WIDTH 15.9 % (11.5-14.5); WHITE BLOOD COUNT 11.1 K/uL (4.8-10.8)
[2018-04-02] MEDS: Multivitamin Vitamin B Complex (Nephro-Vite) Tab PO SCH (07:41)
[2018-04-02 07:48] LABS: ALB/GLOB RATIO 1.2 (1.0-2.1); ALBUMIN 2.8 g/dL (3.5-5.0); CALCIUM 8.4 mg/dl (8.6-10.4)
[2018-04-02] MEDS: Ranolazine 500 mg Extended Release Tablets PO SCH ×2 (09:15→17:27)
[2018-04-02] MEDS: Potassium Chloride 20 mEq ER Tab PO SCH (09:15)
[2018-04-02] MEDS: Pantoprazole 40 mg EC Tab PO SCH (09:15)
[2018-04-02] MEDS: Metoprolol Succinate 50 mg XL Tab PO SCH (09:16)
[2018-04-02] MEDS: Lidocaine 5% Patch TD SCH (09:18)
--- NOTE | 2018-04-02 11:54 | PN ---
DATE: 04/02/2018 SUBJECTIVE: She had a very rough night, and yelling. This morning, she is much better, calmer. MEDICATIONS: She is on Apresoline, aspirin, DuoNeb, Flagyl, potassium, Lasix, Lidoderm, Merrem, morphine, Nephro-Karolyn, Norvasc, Pepto-Bismol, Protonix, Ranexa, Remeron, Singulair, Toprol, Tylenol, and Zofran. PHYSICAL EXAMINATION: GENERAL: She is alert, calm, and pleasant actually this morning. VITAL SIGNS: Temperature 97.5, pulse 75, blood pressure 136/69, respiratory rate 16, and 99% O2 sat on 2 liters. HEENT: Atraumatic and normocephalic. HEART: Regular rate. LUNGS: Decreased breath sounds. ABDOMEN: Soft and nontender. Positive bowel sounds. EXTREMITIES: No edema. BACK: She has start of a grade 1 ulcer, may be 1 cm. Let us keep pressure off that and using Medihoney. LABORATORY DATA: She has positive blood cultures and urine cultures. She has been seen by Infectious Disease. She has been refusing labs. Last labs on 03/31/2018, the white count is 12. Hopefully, she will allow us to do a blood test today. Also, last blood test showed a potassium of 3.3 on 03/31/2018. PLAN: Hopefully, she will allow us to do a blood test to see how the potassium is doing. We will get her out of bed to chair everyday, need to keep her off her sacral wound, and I will be using Medihoney. I will get the wound care nurse also to look at it. We are waiting for social psychologist and case management to help us get into an appropriate setting. She has got sacral ulcer, CHF, COPD, renal insufficiency, chronic pain. John Brown DO MTDJeaneth
[2018-04-03] MEDS: Albuterol-Ipratrop 3 mg / 0.5 (3 ml) UD INH SCH ×4 (01:35→19:32)
[2018-04-03] MEDS: Meropenem 500 MG in Sodium Chloride 0.9% 100 ML IVPB SCH ×3 (05:07→21:00)
[2018-04-03] MEDS: metroNIDAZOLE IV 500 mg/100 ml 500 MG/100 ML BAG IVPB SCH ×3 (06:07→22:24)
[2018-04-03] MEDS: Multivitamin Vitamin B Complex (Nephro-Vite) Tab PO SCH (08:17)
[2018-04-03] MEDS: Ranolazine 500 mg Extended Release Tablets PO SCH ×2 (10:48→17:38)
[2018-04-03] MEDS: Potassium Chloride 20 mEq ER Tab PO SCH (10:49)
[2018-04-03] MEDS: Pantoprazole 40 mg EC Tab PO SCH (10:50)
[2018-04-03] MEDS: Metoprolol Succinate 50 mg XL Tab PO SCH (10:50)
[2018-04-03] MEDS: Lidocaine 5% Patch TD SCH (10:52)
[2018-04-04] MEDS: Albuterol-Ipratrop 3 mg / 0.5 (3 ml) UD INH SCH ×3 (01:28→13:07)
[2018-04-04] MEDS: Meropenem 500 MG in Sodium Chloride 0.9% 100 ML IVPB SCH ×3 (05:12→21:00)
[2018-04-04] MEDS: metroNIDAZOLE IV 500 mg/100 ml 500 MG/100 ML BAG IVPB SCH ×3 (06:15→22:22)
[2018-04-04] MEDS: Multivitamin Vitamin B Complex (Nephro-Vite) Tab PO SCH (08:47)
[2018-04-04] MEDS: Ranolazine 500 mg Extended Release Tablets PO SCH ×2 (09:12→17:49)
[2018-04-04] MEDS: Potassium Chloride 20 mEq ER Tab PO SCH (09:12)
[2018-04-04] MEDS: Pantoprazole 40 mg EC Tab PO SCH (09:12)
[2018-04-04] MEDS: Lidocaine 5% Patch TD SCH (09:14)
[2018-04-04] MEDS: Metoprolol Succinate 50 mg XL Tab PO SCH (09:14)
--- NOTE | 2018-04-04 14:01 | PN ---
DATE: 04/04/2018 SUBJECTIVE: I saw her in bed this morning. She is alert. She tells me she is losing weight. She tells me her arms are full of black and blue cedeno from IV access multiple times. She is a little bit depressed, does not want to go to a care home and understand that where she is going to end up. Started on Apresoline, aspirin, DuoNebs, Flagyl, potassium, Lasix, Lidoderm, Merrem, morphine, Nephro-Karolyn, Norvasc, Pepto-Bismol, Protonix, Ranexa, Remeron, Singulair, Toprol, Tylenol, and Zofran. PHYSICAL EXAMINATION: VITAL SIGNS: She has a 97.5 temp, 70 pulse, 132/56 blood pressure, 20 respiratory rate, 97% O2 sat on 2 L nasal cannula. HEENT: Head is atraumatic, normocephalic. HEART: Regular rate and rhythm. LUNGS: Decreased breath sounds, but clear. ABDOMEN: Mildly distended discomfort. No guarding or rebound, but she is having some abdominal upset. EXTREMITIES: No edema. She might and she has got multiple black and blue cedeno on arms from IV access try. LABORATORY DATA: On 04/02/2018, she had 11.1 white count, 12.6 hemoglobin, and 347 platelets. She had a 145 sodium, potassium 3.8, BUN 46, creatinine 1.2, GFR is 44, sugar is 78, calcium is 8.4, total bilirubin is 7.7, AST is 19, ALT is 18, alk phos is 51, total protein is 5.1. She is being seen by Dr. Torres, infectious disease doctor. I will try and get her labs tomorrow. I will also try and get her out of bed to chair, also get GI back in form some stomach upset and hopefully, we can get her out of this hospital to a safe facility for her well being. ASSESSMENT: Chronic obstructive pulmonary disease, congestive heart failure, abdominal pain, renal insufficiency, change of mentation, and multiple . John Brown DO [facility] # [id number] MTDD
--- NOTE | 2018-04-04 16:16 | CP.PCM.PN ---
<Leland Medel - Last Filed: 04/04/18 16:16> Subjective - Date & Time of Evaluation Date of Evaluation: 04/04/18 Time of Evaluation: 10:00 - Subjective Subjective: PGY5 GI Follow-up Pt seen and examined bedside Denies any abd pain last BM was 3 days ago tolerating diet hungry ROS: 12 point ROS conducted, neg other than above Objective - Vital Signs/Intake and Output Vital Signs (last 24 hours): Temp Pulse Resp BP Pulse Ox 97.3 F L 69 20 125/63 98 04/04/18 08:00 04/04/18 08:00 04/04/18 08:00 04/04/18 09:12 04/04/18 08:00 Intake and Output: 04/04/18 04/04/18 06:59 18:59 Intake Total 440 400 Balance 440 400 - Medications Medications: Current Medications Acetaminophen (Tylenol 325mg Tab) 650 mg PO Q6H PRN PRN Reason: Pain, Mild (1-3) Last Admin: 03/30/18 14:25 Dose: 650 mg Albuterol/Ipratropium (Duoneb 3 Mg/0.5 Mg (3 Ml) Ud) 3 ml INH RQ6 FELIPE Last Admin: 04/04/18 13:07 Dose: Not Given Amlodipine Besylate (Norvasc) 5 mg PO QPM FELIPE Last Admin: 04/03/18 17:38 Dose: 5 mg Aspirin (Aspirin Chewable) 81 mg PO DAILY FELIPE Last Admin: 04/04/18 09:13 Dose: Not Given Bismuth Subsalicylate (Pepto-Bismol) 262 mg PO Q8H PRN PRN Reason: Diarrhea Furosemide (Lasix) 20 mg PO BID FELIPE Last Admin: 04/04/18 09:12 Dose: Not Given Hydralazine HCl (Apresoline) 100 mg PO Q8 FELIPE Last Admin: 04/04/18 14:12 Dose: 100 mg Meropenem 500 mg/ Sodium (Chloride) 100 mls @ 100 mls/hr IVPB Q8H FELIPE PRN Reason: Protocol Last Admin: 04/04/18 14:13 Dose: 100 mls/hr Metronidazole (Flagyl) 500 mg in 100 mls @ 100 mls/hr IVPB Q8H FELIPE PRN Reason: Protocol Last Admin: 04/04/18 06:15 Dose: 100 mls/hr Lidocaine (Lidoderm) 1 ea TD DAILY [facility] Last Admin: 04/04/18 09:14 Dose: Not Given Metoprolol Succinate (Toprol Xl) 50 mg PO DAILY [facility] Last Admin: 04/04/18 09:14 Dose: Not Given Mirtazapine (Remeron) 7.5 mg PO HS [facility] Last Admin: 04/03/18 21:13 Dose: 7.5 mg Montelukast Sodium (Singulair) 10 mg PO DAILY [facility] Last Admin: 04/04/18 09:12 Dose: Not Given Morphine Sulfate (Morphine) 1 mg IVP Q3H PRN PRN Reason: Pain, moderate (4-7) Last Admin: 04/04/18 05:09 Dose: 1 mg Ondansetron HCl (Zofran Inj) 4 mg IVP Q4H PRN PRN Reason: Nausea/Vomiting Last Admin: 03/31/18 11:35 Dose: 4 mg Pantoprazole Sodium (Protonix Ec Tab) 40 mg PO DAILY [facility] Last Admin: 04/04/18 09:12 Dose: Not Given Potassium Chloride (K-Dur 20 Meq Er Tab) 20 meq PO DAILY [facility] Last Admin: 04/04/18 09:12 Dose: Not Given Ranolazine (Ranexa) 500 mg PO BID [facility] Last Admin: 04/04/18 09:12 Dose: Not Given Vitamin B Complex/Vit C/Folic Acid (Nephro-Karolyn) 1 tab PO 0800 [facility] Last Admin: 04/04/18 08:47 Dose: Not Given - Labs Labs: 04/02/18 07:16 04/02/18 07:16 PT 13.6 SECONDS (9.7-12.2) H 01/15/18 07:10 INR 1.2 01/15/18 07:10 APTT 34 SECONDS (21-34) 12/09/17 00:22 - Constitutional Appears: Well, No Acute Distress - Head Exam Head Exam: ATRAUMATIC, NORMOCEPHALIC - Eye Exam Eye Exam: Normal appearance - ENT Exam ENT Exam: Mucous Membranes Moist, Normal Exam - Neck Exam Neck Exam: Normal Inspection - Respiratory Exam Respiratory Exam: Clear to Ausculation Bilateral, NORMAL BREATHING PATTERN. absent: Rhonchi, Wheezes, Respiratory Distress - Cardiovascular Exam Cardiovascular Exam: REGULAR RHYTHM, +S1, +S2 - GI/Abdominal Exam GI & Abdominal Exam: Soft, Normal Bowel Sounds. absent: Distended, Firm, Guarding, Rigid, Tenderness, Organomegaly - Extremities Exam Extremities Exam: absent: Joint Swelling, Pedal Edema - Neurological Exam Neurological Exam: Alert, Awake, Oriented x3 - Psychiatric Exam Psychiatric exam: Normal Affect, Normal Mood - Skin Skin Exam: Dry, Intact, Normal Color, Warm Assessment and Plan - Assessment and Plan (Free Text) Assessment: Patient is a 72yo female with triple vessel CAD with prior PCI and recommendation for CABG (pt refusing intervention), peripheral vascular disease , CHF, CKD, severe pulmonary hypertension, COPD, prior CVA, DVT, breast cancer s /p chemotherapy who presented to the hospital with chest pain and abd pain. Abdominal pain, resolved Partial SBO vs ileus (resolved) Chronic constipation Hx of PUD Severe CAD COPD with pulmonary HTN CKD Chronic opioid use Plan: -Continue supportive care with pain control and anti-emetics -restart bowel regimen with miralax 17g PO BID -Surgery on board -avoid narcotics -advance diet as tolerated -should be discharged on miralax BID at home daily -abd pain resolved -advance diet as tolerated -will sign off D/W Renaldo Bradley <Geronimo Macario - Last Filed: 04/04/18 16:42> Objective - Vital Signs/Intake and Output Vital Signs (last 24 hours): Temp Pulse Resp BP Pulse Ox 97.3 F L 69 20 125/63 98 04/04/18 08:00 04/04/18 08:00 04/04/18 08:00 04/04/18 09:12 04/04/18 08:00 Intake and Output: 04/04/18 04/04/18 06:59 18:59 Intake Total 440 400 Balance 440 400 - Medications Medications: Current Medications Acetaminophen (Tylenol 325mg Tab) 650 mg PO Q6H PRN PRN Reason: Pain, Mild (1-3) Last Admin: 03/30/18 14:25 Dose: 650 mg Albuterol/Ipratropium (Duoneb 3 Mg/0.5 Mg (3 Ml) Ud) 3 ml INH RQ6 FELIPE Last Admin: 04/04/18 13:07 Dose: Not Given Amlodipine Besylate (Norvasc) 5 mg PO QPM FELIPE Last Admin: 04/03/18 17:38 Dose: 5 mg Aspirin (Aspirin Chewable) 81 mg PO DAILY [facility] Last Admin: 04/04/18 09:13 Dose: Not Given Bismuth Subsalicylate (Pepto-Bismol) 262 mg PO Q8H PRN PRN Reason: Diarrhea Furosemide (Lasix) 20 mg PO BID [facility] Last Admin: 04/04/18 09:12 Dose: Not Given Hydralazine HCl (Apresoline) 100 mg PO Q8 [facility] Last Admin: 04/04/18 14:12 Dose: 100 mg Meropenem 500 mg/ Sodium (Chloride) 100 mls @ 100 mls/hr IVPB Q8H FELIPE PRN Reason: Protocol Last Admin: 04/04/18 14:13 Dose: 100 mls/hr Metronidazole (Flagyl) 500 mg in 100 mls @ 100 mls/hr IVPB Q8H FELIPE PRN Reason: Protocol Last Admin: 04/04/18 06:15 Dose: 100 mls/hr Lidocaine (Lidoderm) 1 ea TD DAILY [facility] Last Admin: 04/04/18 09:14 Dose: Not Given Metoprolol Succinate (Toprol Xl) 50 mg PO DAILY [facility] Last Admin: 04/04/18 09:14 Dose: Not Given Mirtazapine (Remeron) 7.5 mg PO HS [facility] Last Admin: 04/03/18 21:13 Dose: 7.5 mg Montelukast Sodium (Singulair) 10 mg PO DAILY [facility] Last Admin: 04/04/18 09:12 Dose: Not Given Morphine Sulfate (Morphine) 1 mg IVP Q3H PRN PRN Reason: Pain, moderate (4-7) Last Admin: 04/04/18 05:09 Dose: 1 mg Ondansetron HCl (Zofran Inj) 4 mg IVP Q4H PRN PRN Reason: Nausea/Vomiting Last Admin: 03/31/18 11:35 Dose: 4 mg Pantoprazole Sodium (Protonix Ec Tab) 40 mg PO DAILY [facility] Last Admin: 04/04/18 09:12 Dose: Not Given Polyethylene Glycol (Miralax) 17 gm PO BID [facility] Potassium Chloride (K-Dur 20 Meq Er Tab) 20 meq PO DAILY [facility] Last Admin: 04/04/18 09:12 Dose: Not Given Ranolazine (Ranexa) 500 mg PO BID [facility] Last Admin: 04/04/18 09:12 Dose: Not Given Vitamin B Complex/Vit C/Folic Acid (Nephro-Karolyn) 1 tab PO 0800 [facility] Last Admin: 04/04/18 08:47 Dose: Not Given - Labs Labs: 04/02/18 07:16 04/02/18 07:16 PT 13.6 SECONDS (9.7-12.2) H 01/15/18 07:10 INR 1.2 01/15/18 07:10 APTT 34 SECONDS (21-34) 12/09/17 00:22 Attending/Attestation - Attestation I have personally seen and examined this patient.: Yes I have fully participated in the care of the patient.: Yes I have reviewed all pertinent clinical information, including history, physical exam and plan: Yes Notes (Text): 04/04/18 16:41 I have seen and examined patient with GI fellow. She appears comfortable. Her abdominal pain is significantly improved after having bowel movement this morning. She denies nausea, vomiting, fever/chills or abdominal cramps. Tolerating PO diet without difficulty. Wants tuna fish sandwitch. Diet as tolerated. Maintain aggressive bowel regimen to prevent recurrent constipation symptoms. Further plan as per medical team. No planned GI intervention, will sign off case. Please reconsult as necessary, thank you.
[2018-04-04] MEDS: POLYETHYLENE GLYCOL 3350 17 GM/Dose PACKET PO SCH (17:52)
[2018-04-05] MEDS: Albuterol-Ipratrop 3 mg / 0.5 (3 ml) UD INH SCH ×4 (01:32→19:52)
[2018-04-05] MEDS: Meropenem 500 MG in Sodium Chloride 0.9% 100 ML IVPB SCH ×3 (05:15→21:42)
[2018-04-05] MEDS: metroNIDAZOLE IV 500 mg/100 ml 500 MG/100 ML BAG IVPB SCH ×3 (05:59→23:01)
--- NOTE | 2018-04-05 06:17 | PN ---
DATE: 04/03/2018 SUBJECTIVE: I saw Kathy resting comfortably in bed. She is quite depressed. She tells she does not want to be here anymore. She does not want to live anymore. She dog and the cat. She is very upset. MEDICATIONS: Presently, she is on aspirin, DuoNeb, Flagyl, IV potassium, Lasix, Lidoderm, Merrem IV, morphine, Nephro-Karolyn, Norvasc, Pepto-Bismol, Protonix, Ranexa, Remeron, Singulair, Toprol, Tylenol, and Zofran. PHYSICAL EXAMINATION VITAL SIGNS: Temperature 97.4, pulse 69, blood pressure 116/60, respiratory rate 20, and 99% O2 sat in room air. HEENT: Head is atraumatic and normocephalic. HEART: Regular rate. LUNGS: Decreased breath sounds. ABDOMEN: Soft. EXTREMITIES: Without edema. She is not doing well today. LABORATORY DATA: She had a blood test on 04/02/2018, which showed white count 11.1, which is great, 12.6 hemoglobin, 38.4 hematocrit, 247 platelets. Also 147 sodium, potassium 3.8, BUN 43, creatinine 1.2, sugar 78, calcium 8.4, total bilirubin is 0.78, AST is 19, ALT is 18, alk phos 51, total protein is 5.1, procalcitonin is 0.47. She is much better with her labs, which is very good. Negative C. difficile, negative stool for blood. PLAN: Continue as per Infectious Disease and IV antibiotics. I encouraged her to get out of bed to chair daily. We are waiting for executive secretary social welfare and case management and Medicaid. She has got CHF, COPD, renal insufficiency, and chronic pain. John Brown DO MTDD
[2018-04-05] MEDS: Multivitamin Vitamin B Complex (Nephro-Vite) Tab PO SCH (08:55)
[2018-04-05] MEDS: Metoprolol Succinate 50 mg XL Tab PO SCH (09:24)
[2018-04-05] MEDS: Pantoprazole 40 mg EC Tab PO SCH (09:24)
[2018-04-05] MEDS: POLYETHYLENE GLYCOL 3350 17 GM/Dose PACKET PO SCH ×2 (09:25→17:28)
[2018-04-05] MEDS: Potassium Chloride 20 mEq ER Tab PO SCH (09:25)
[2018-04-05] MEDS: Ranolazine 500 mg Extended Release Tablets PO SCH ×2 (09:25→21:40)
[2018-04-05] MEDS: Lidocaine 5% Patch TD SCH (09:26)
--- NOTE | 2018-04-05 11:11 | PN ---
DATE: 04/05/2018 SUBJECTIVE: I saw Kathy in bed. She slept whole night, I was told. She is very tired this morning. Same complaints. She wants to leave the hospital. MEDICATIONS: She is on Apresoline, aspirin, Duoneb, Flagyl IV, potassium, Lasix, Lidoderm, Merrem IV, MiraLax, morphine as needed, Nephro-Karolyn, Norvasc, Pepto-Bismol, Protonix, Ranexa, Remeron, Singulair, Toprol, Tylenol, and Zofran. PHYSICAL EXAMINATION: VITAL SIGNS: Temperature 98, pulse 75, blood pressure 128/58, respiratory rate 20, 98% sat on room air. HEENT: Head is atraumatic, normocephalic. HEART: Regular rate and rhythm. LUNGS: Decreased breath sounds, but clear. ABDOMEN: Soft, looks better. Positive bowel sounds. Nontender. EXTREMITIES: No edema. She is thin, frail, and weak. Maybe . LABORATORY DATA: Labs, again, were not done. She refused them. I will order them again for tomorrow. Last labs on 04/02/2018 did well. ASSESSMENT AND PLAN: She is being seen by Gastrointestinal and Infectious Disease. Renal signed off way back and her kidney functions have improved. At the time Gastrointestinal came to see her, there was no more abdominal pain. We will see if we can get do blood test tomorrow. Continue aggressive treatment and care. Waiting for social science teacher, Case Management for discharge planning. She has got congestive heart failure, chronic obstructive pulmonary disease, chronic pain, abdominal pain, renal insufficiency, debility. John Brown DO MTDD
--- NOTE | 2018-04-05 18:18 | CP.PCM.PN ---
Subjective - Date & Time of Evaluation Date of Evaluation: 04/05/18 Time of Evaluation: 07:00 - Subjective Subjective: afeb NAD iv rx renewed needs min 14 days rx GI on board Objective - Vital Signs/Intake and Output Vital Signs (last 24 hours): Temp Pulse Resp BP Pulse Ox 98.6 F 60 20 105/66 100 04/05/18 15:54 04/05/18 15:54 04/05/18 15:54 04/05/18 17:27 04/05/18 14:17 Intake and Output: 04/05/18 04/05/18 06:59 18:59 Intake Total 320 600 Balance 320 600 - Medications Medications: Current Medications Acetaminophen (Tylenol 325mg Tab) 650 mg PO Q6H PRN PRN Reason: Pain, Mild (1-3) Last Admin: 03/30/18 14:25 Dose: 650 mg Albuterol/Ipratropium (Duoneb 3 Mg/0.5 Mg (3 Ml) Ud) 3 ml INH RQ6 FELIPE Last Admin: 04/05/18 13:21 Dose: Not Given Amlodipine Besylate (Norvasc) 5 mg PO QPM FELIPE Last Admin: 04/05/18 17:28 Dose: Not Given Aspirin (Aspirin Chewable) 81 mg PO DAILY [facility] Last Admin: 04/05/18 09:25 Dose: 81 mg Bismuth Subsalicylate (Pepto-Bismol) 262 mg PO Q8H PRN PRN Reason: Diarrhea Furosemide (Lasix) 20 mg PO BID [facility] Last Admin: 04/05/18 17:27 Dose: 20 mg Hydralazine HCl (Apresoline) 100 mg PO Q8 FELIPE Last Admin: 04/05/18 14:17 Dose: Not Given Meropenem 500 mg/ Sodium (Chloride) 100 mls @ 100 mls/hr IVPB Q8H FELIPE PRN Reason: Protocol Last Admin: 04/05/18 14:09 Dose: 100 mls/hr Metronidazole (Flagyl) 500 mg in 100 mls @ 100 mls/hr IVPB Q8H FELIPE PRN Reason: Protocol Last Admin: 04/05/18 14:10 Dose: 100 mls/hr Lidocaine (Lidoderm) 1 ea TD DAILY [facility] Last Admin: 04/05/18 09:26 Dose: Not Given Metoprolol Succinate (Toprol Xl) 50 mg PO DAILY [facility] Last Admin: 04/05/18 09:24 Dose: 50 mg Mirtazapine (Remeron) 7.5 mg PO HS [facility] Last Admin: 04/04/18 21:13 Dose: 7.5 mg Montelukast Sodium (Singulair) 10 mg PO DAILY [facility] Last Admin: 04/05/18 09:24 Dose: 10 mg Morphine Sulfate (Morphine) 1 mg IVP Q3H PRN PRN Reason: Pain, moderate (4-7) Last Admin: 04/05/18 16:44 Dose: 1 mg Ondansetron HCl (Zofran Inj) 4 mg IVP Q4H PRN PRN Reason: Nausea/Vomiting Last Admin: 03/31/18 11:35 Dose: 4 mg Pantoprazole Sodium (Protonix Ec Tab) 40 mg PO DAILY [facility] Last Admin: 04/05/18 09:24 Dose: 40 mg Polyethylene Glycol (Miralax) 17 gm PO BID [facility] Last Admin: 04/05/18 17:28 Dose: Not Given Potassium Chloride (K-Dur 20 Meq Er Tab) 20 meq PO DAILY [facility] Last Admin: 04/05/18 09:25 Dose: 20 meq Ranolazine (Ranexa) 500 mg PO BID [facility] Last Admin: 04/05/18 09:25 Dose: 500 mg Vitamin B Complex/Vit C/Folic Acid (Nephro-Karolyn) 1 tab PO 0800 [facility] Last Admin: 04/05/18 08:55 Dose: 1 tab - Labs Labs: 04/02/18 07:16 04/02/18 07:16 PT 13.6 SECONDS (9.7-12.2) H 01/15/18 07:10 INR 1.2 01/15/18 07:10 APTT 34 SECONDS (21-34) 12/09/17 00:22 - Constitutional Appears: Non-toxic, Cachectic, Chronically Ill - Head Exam Head Exam: NORMOCEPHALIC - Eye Exam Eye Exam: PERRL - ENT Exam ENT Exam: Mucous Membranes Dry - Neck Exam Neck Exam: absent: Lymphadenopathy - Respiratory Exam Respiratory Exam: Decreased Breath Sounds - Cardiovascular Exam Cardiovascular Exam: REGULAR RHYTHM - GI/Abdominal Exam GI & Abdominal Exam: Distended - Rectal Exam Rectal Exam: Deferred - Exam Exam: NORMAL INSPECTION Assessment and Plan (1) Non-ST elevated myocardial infarction (non-STEMI) Status: Acute (2) Peripheral visual field defect of both eyes Status: Acute (3) UTI (urinary tract infection) Status: Acute (4) CHF (congestive heart failure) Status: Chronic - Assessment and Plan (Free Text) Assessment: cont iv rx total 14 days
[2018-04-06] MEDS: Albuterol-Ipratrop 3 mg / 0.5 (3 ml) UD INH SCH ×4 (01:09→20:29)
[2018-04-06] MEDS: Meropenem 500 MG in Sodium Chloride 0.9% 100 ML IVPB SCH ×3 (05:15→21:16)
[2018-04-06] MEDS: metroNIDAZOLE IV 500 mg/100 ml 500 MG/100 ML BAG IVPB SCH ×3 (07:03→22:25)
[2018-04-06 08:08] LABS: MEAN CORPUSCULAR HEMOGLOBIN 29.9 pg (27.0-31.0); MEAN PLATELET VOLUME 9.8 fL (7.2-11.7); RBC 3.35 Mil/uL (3.80-5.20); RED CELL DISTRIBUTION WIDTH 15.7 % (11.5-14.5); WHITE BLOOD COUNT 9.1 K/uL (4.8-10.8)
[2018-04-06 08:27] LABS: MEAN CELL VOLUME 87.9 fL (81.0-99.0)
[2018-04-06] MEDS: Multivitamin Vitamin B Complex (Nephro-Vite) Tab PO SCH (08:28)
[2018-04-06 08:29] LABS: ALB/GLOB RATIO 1.1 (1.0-2.1); ALBUMIN 2.5 g/dL (3.5-5.0); ALT/SGPT 25 U/L (9-52); AST/SGOT 21 U/L (14-36); BLOOD UREA NITROGEN 32 mg/dL (7-17); CALCIUM 7.8 mg/dl (8.6-10.4); GFR AFRICAN-AMERICAN > 60; GFR NON-AFRICAN AMERICAN > 60
[2018-04-06] MEDS: Potassium Chloride 20 mEq ER Tab PO SCH (10:01)
[2018-04-06] MEDS: Metoprolol Succinate 50 mg XL Tab PO SCH (10:01)
[2018-04-06] MEDS: Pantoprazole 40 mg EC Tab PO SCH (10:01)
[2018-04-06] MEDS: Lidocaine 5% Patch TD SCH (10:06)
[2018-04-06] MEDS: Ranolazine 500 mg Extended Release Tablets PO SCH ×2 (10:06→17:59)
--- NOTE | 2018-04-06 11:24 | PN ---
DATE: 04/06/2018 SUBJECTIVE: I saw her resting comfortably in her room in bed. She is comfortable, slept well, which is good. Actually, this is the best, I have spoken to her on the bedside, able to speak in a very long time. She is very calm. She is smiling. She understands the situation, the moment of clarity. MEDICATIONS: She is on Apresoline, aspirin, Duoneb, Flagyl, potassium, Lasix, Lidoderm, Merrem IV, MiraLax, morphine, Nephro-Karolyn, Norvasc, Pepto-Bismol, Protonix, Ranexa, Singulair, Toprol, Tylenol, and Zofran. PHYSICAL EXAMINATION: VITAL SIGNS: She has a 98 temperature, 74 pulse,102/64 blood pressure, 20 respiratory rate, and 98% O2 sat on 2 L. HEENT: Head is atraumatic and normocephalic. HEART: Regular rate. LUNGS: Decreased breath sounds, but clear. ABDOMEN: Soft and nontender. Positive bowel sounds. EXTREMITIES: No edema. She is just weak overall. LABORATORY DATA: Last lab was on 04/02/2018. She still has not given us lab test yet. I will continue to try and order it, so we can see what her kidney functions are and her white count is. She is still on IV antibiotics as per Infectious Disease. She is here for congestive heart failure, chronic obstructive pulmonary disease, chronic pain, renal insufficiency, change in mental status, and infection. We will try and check her labs and try to get her out of bed to chair. We are waiting for placement, social services assistant and case management and Medicaid. John Brown DO
[2018-04-06] MEDS: POLYETHYLENE GLYCOL 3350 17 GM/Dose PACKET PO SCH ×2 (13:42→18:04)
[2018-04-07] MEDS: Albuterol-Ipratrop 3 mg / 0.5 (3 ml) UD INH SCH ×4 (01:49→19:47)
[2018-04-07] MEDS: Meropenem 500 MG in Sodium Chloride 0.9% 100 ML IVPB SCH ×2 (05:17→14:36)
[2018-04-07] MEDS: metroNIDAZOLE IV 500 mg/100 ml 500 MG/100 ML BAG IVPB SCH ×3 (06:27→22:20)
[2018-04-07 07:45] LABS: HEMOGLOBIN 10.6 g/dL (11.0-16.0); MEAN CELL VOLUME 88.6 fL (81.0-99.0); MEAN CORPUSCULAR HGB CONC 33.9 g/dL (33.0-37.0); MEAN PLATELET VOLUME 9.7 fL (7.2-11.7); RBC 3.54 Mil/uL (3.80-5.20); RED CELL DISTRIBUTION WIDTH 16.2 % (11.5-14.5); WHITE BLOOD COUNT 9.4 K/uL (4.8-10.8)
[2018-04-07 07:55] LABS: ALB/GLOB RATIO 1.2 (1.0-2.1); ALBUMIN 2.5 g/dL (3.5-5.0); ALT/SGPT 22 U/L (9-52); AST/SGOT 32 U/L (14-36); BLOOD UREA NITROGEN 30 mg/dL (7-17); CALCIUM 7.8 mg/dl (8.6-10.4); GFR AFRICAN-AMERICAN > 60; GFR NON-AFRICAN AMERICAN 54
[2018-04-07] MEDS: Lidocaine 5% Patch TD SCH ×3 (10:23→11:42)
[2018-04-07] MEDS: Pantoprazole 40 mg EC Tab PO SCH (10:26)
[2018-04-07] MEDS: POLYETHYLENE GLYCOL 3350 17 GM/Dose PACKET PO SCH ×2 (10:26→18:03)
[2018-04-07] MEDS: Potassium Chloride 20 mEq ER Tab PO SCH (10:27)
[2018-04-07] MEDS: Multivitamin Vitamin B Complex (Nephro-Vite) Tab PO SCH (10:27)
[2018-04-07] MEDS: Ranolazine 500 mg Extended Release Tablets PO SCH ×2 (10:27→18:08)
[2018-04-07] MEDS: Metoprolol Succinate 50 mg XL Tab PO SCH (10:28)
--- NOTE | 2018-04-07 12:58 | PN ---
DATE: 04/07/2018 SUBJECTIVE: I saw Kathy sleeping in her bed. She had a fair night per the caregiver. She is very upset this morning, complaining about everything, does not want to be here anymore. She is on Apresoline, aspirin, DuoNebs, Flagyl, potassium, Lasix, Lidoderm, Merrem, MiraLax, morphine, Nephro-Karolyn, Norvasc, Pepto-Bismol, Protonix, Ranexa, Singulair, Toprol, Tylenol, Ultram, and Zofran. PHYSICAL EXAMINATION: VITAL SIGNS: She has a 98 temp, 72 pulse, 113/68 blood pressure, 20 respiratory rate, and 97% O2 sat on 2 liters. HEENT: Head is atraumatic and normocephalic. Throat is dry. NECK: Supple. HEART: Regular rate. LUNGS: Decreased breath sounds, but clear. ABDOMEN: Soft and nontender. Positive bowel sounds. EXTREMITIES: No edema. She is contracted a little bit and weak. LABORATORY DATA: She has had blood tests today, 04/07, 9.4 white count, 10.6 hemoglobin, 31.4 hematocrit, and 314 platelets, which is very good. Sodium 139, potassium 3.6, BUN is 32, creatinine 0.9 GFR is greater than 60, sugar is 97 , calcium is 7.8, total bili is 0.7, AST is 21, ALT is 25, alk phos is 45, and total protein is 4.7. I am very happy with her blood test today. She has been seen by Infectious Disease. ASSESSMENT AND PLAN: She is on the antibiotics. Continue aggressive treatment and care. She is here for congestive heart failure, chronic obstructive pulmonary disease, urinary tract infection, chronic pain, change of mentation, and ST-election myocardial infarction. We are also patiently awaiting for placements for her with Medicaid as per Case Management and [place] Dec[employer]ator John Brown DO MTDJeaneth
--- NOTE | 2018-04-07 22:08 | CP.PCM.PN ---
Subjective - Date & Time of Evaluation Date of Evaluation: 04/07/18 Time of Evaluation: 18:30 - Subjective Subjective: Pulmonary Follow up, Covering Dr. Gamez The Patient was seen and examined at the bedside, Medical records reviewed and management issues were discussed and formulated with the house staff. Events reviewed Breathing unlabored, in no apparent acute distress. Saturation on 3L Nasal cannula 95-97%. Denies any chest pain, SOB or Palpitations No wheezing Afebrile Objective - Vital Signs/Intake and Output Vital Signs (last 24 hours): Temp Pulse Resp BP Pulse Ox 97.5 F L 91 H 20 136/66 95 04/07/18 16:00 04/07/18 16:00 04/07/18 16:00 04/07/18 18:04 04/07/18 16:00 - Medications Medications: Current Medications Acetaminophen (Tylenol 325mg Tab) 650 mg PO Q6H PRN PRN Reason: Pain, Mild (1-3) Last Admin: 03/30/18 14:25 Dose: 650 mg Albuterol/Ipratropium (Duoneb 3 Mg/0.5 Mg (3 Ml) Ud) 3 ml INH RQ6 [facility] Last Admin: 04/07/18 19:47 Dose: Not Given Amlodipine Besylate (Norvasc) 5 mg PO QPM [facility] Last Admin: 04/07/18 18:05 Dose: 5 mg Aspirin (Aspirin Chewable) 81 mg PO DAILY [facility] Last Admin: 04/07/18 10:26 Dose: 81 mg Bismuth Subsalicylate (Pepto-Bismol) 262 mg PO Q8H PRN PRN Reason: Diarrhea Last Admin: 04/07/18 18:28 Dose: 262 mg Furosemide (Lasix) 20 mg PO BID [facility] Last Admin: 04/07/18 18:04 Dose: 20 mg Hydralazine HCl (Apresoline) 100 mg PO Q8 [facility] Last Admin: 04/07/18 14:52 Dose: 100 mg Metronidazole (Flagyl) 500 mg in 100 mls @ 100 mls/hr IVPB Q8H [facility] PRN Reason: Protocol Last Admin: 04/07/18 14:48 Dose: 100 mls/hr Lidocaine (Lidoderm) 1 ea TD DAILY [facility] Last Admin: 04/07/18 11:42 Dose: 1 ea Metoprolol Succinate (Toprol Xl) 50 mg PO DAILY [facility] Last Admin: 04/07/18 10:28 Dose: Not Given Montelukast Sodium (Singulair) 10 mg PO DAILY [facility] Last Admin: 04/07/18 10:28 Dose: Not Given Morphine Sulfate (Morphine) 1 mg IVP Q3H PRN PRN Reason: Pain, moderate (4-7) Last Admin: 04/07/18 14:41 Dose: 1 mg Ondansetron HCl (Zofran Inj) 4 mg IVP Q4H PRN PRN Reason: Nausea/Vomiting Last Admin: 03/31/18 11:35 Dose: 4 mg Pantoprazole Sodium (Protonix Ec Tab) 40 mg PO DAILY [facility] Last Admin: 04/07/18 10:26 Dose: 40 mg Polyethylene Glycol (Miralax) 17 gm PO BID [facility] Last Admin: 04/07/18 18:03 Dose: Not Given Potassium Chloride (K-Dur 20 Meq Er Tab) 20 meq PO DAILY [facility] Last Admin: 04/07/18 10:27 Dose: 20 meq Ranolazine (Ranexa) 500 mg PO BID [facility] Last Admin: 04/07/18 18:08 Dose: Not Given Tramadol HCl (Ultram) 50 mg PO TID PRN PRN Reason: Pain, moderate (4-7) Last Admin: 04/07/18 18:04 Dose: 50 mg Vancomycin HCl (Vancocin (Oral Or Rectal Use)) 125 mg PO QID [facility] PRN Reason: Protocol Vitamin B Complex/Vit C/Folic Acid (Nephro-Karolyn) 1 tab PO 0800 [facility] Last Admin: 04/07/18 10:27 Dose: 1 tab - Labs Labs: 04/07/18 07:29 04/07/18 07:29 PT 13.6 SECONDS (9.7-12.2) H 01/15/18 07:10 INR 1.2 01/15/18 07:10 APTT 34 SECONDS (21-34) 12/09/17 00:22 - Head Exam Head Exam: ATRAUMATIC, NORMAL INSPECTION - Eye Exam Eye Exam: EOMI, Normal appearance Pupil Exam: NORMAL ACCOMODATION - ENT Exam ENT Exam: Mucous Membranes Moist, Normal Exam - Neck Exam Neck Exam: Normal Inspection - Respiratory Exam Respiratory Exam: Decreased Breath Sounds, Clear to Ausculation Bilateral, NORMAL BREATHING PATTERN. absent: Accessory Muscle Use, Chest Wall Tenderness - Cardiovascular Exam Cardiovascular Exam: REGULAR RHYTHM, RRR, +S1, +S2. absent: JVD - GI/Abdominal Exam GI & Abdominal Exam: Soft, Normal Bowel Sounds - Neurological Exam Neurological Exam: Alert, Awake Assessment and Plan (1) Interstitial lung disease Status: Acute (2) CHF exacerbation Status: Acute (3) COPD exacerbation Status: Acute - Assessment and Plan (Free Text) Assessment: Stable respiratory status, Please call pulmonary with any changes, Continue current management Continue nebulizer treatment with Albuterol/Ipratropium (Duoneb) INH RQ6 [facility] Taper steroids. Continue Singulair 10 mg PO DAILY [facility] Continue PO Diuretics same dose with Lasix 20 mg PO BID, No evidence of fluid overload on Exam today
[2018-04-07] MEDS: Vancomycin 125 MG/5 ML SOLN (ORAL/RECTAL) PO SCH ×2 (22:20→22:30)
[2018-04-08] MEDS: Albuterol-Ipratrop 3 mg / 0.5 (3 ml) UD INH SCH ×4 (01:36→19:43)
[2018-04-08] MEDS: metroNIDAZOLE IV 500 mg/100 ml 500 MG/100 ML BAG IVPB SCH ×3 (06:25→21:59)
[2018-04-08] MEDS: Metoprolol Succinate 50 mg XL Tab PO SCH (09:19)
[2018-04-08] MEDS: POLYETHYLENE GLYCOL 3350 17 GM/Dose PACKET PO SCH ×2 (09:19→17:33)
[2018-04-08] MEDS: Pantoprazole 40 mg EC Tab PO SCH (09:20)
[2018-04-08] MEDS: Potassium Chloride 20 mEq ER Tab PO SCH (09:20)
[2018-04-08] MEDS: Multivitamin Vitamin B Complex (Nephro-Vite) Tab PO SCH (09:20)
[2018-04-08] MEDS: Ranolazine 500 mg Extended Release Tablets PO SCH ×2 (09:21→17:33)
[2018-04-08] MEDS: Vancomycin 125 MG/5 ML SOLN (ORAL/RECTAL) PO SCH ×4 (09:21→21:58)
[2018-04-08] MEDS: Lidocaine 5% Patch TD SCH (09:31)
--- NOTE | 2018-04-08 12:46 | PN ---
DATE: 04/08/2018 SUBJECTIVE: She is sitting up in bed, dressed, good spirits. No complaints. She is telling me that she wants physical therapy every day. She wants to go to [place] when she is done with the hospital. MEDICATIONS: She is on Apresoline, aspirin, DuoNeb, Flagyl, potassium, Lasix, Lidoderm, MiraLax, morphine, Nephro-Karolyn, Norvasc, Pepto-Bismol, Protonix, Ranexa, Singulair, Toprol, Tylenol, Ultram, vancomycin, and Zofran. PHYSICAL EXAMINATION: VITAL SIGNS: She has a 97.5 temp, 91 pulse, 138/68 blood pressure, 20 respiratory rate, 95% O2 sat on nasal cannula, 2 L. HEENT: Head is atraumatic, normocephalic. HEART: Regular rate. LUNGS: Clear to auscultation. ABDOMEN: Soft. EXTREMITIES: No edema. LABORATORY DATA: She had 9.4 white count, 10.6 hemoglobin, 31.4 hematocrit, and 314 platelets. Sodium 141, potassium 4, BUN 30, creatinine 1, the best it has been. GFR 54, sugar is 100, calcium 7.8, total bilirubin 0.9, AST is 32, ALT is 22, alk phos is 44, and total protein is 4.7. She is being seen by Infectious Disease and Pulmonary who has been following up. ASSESSMENT AND PLAN: She has congestive heart failure, chronic obstructive pulmonary disease, chronic pain, renal insufficiency. Continue with aggressive treatment and care. Waiting for social service director to get her transferred out of bed to chair with physical therapy and hopefully John Brown DO MTDJeaneth
--- NOTE | 2018-04-08 13:52 | CP.PCM.PN ---
Subjective - Date & Time of Evaluation Date of Evaluation: 04/08/18 Time of Evaluation: 08:00 - Subjective Subjective: no fever or leukocytosis Objective - Vital Signs/Intake and Output Vital Signs (last 24 hours): Temp Pulse Resp BP Pulse Ox 97.3 F L 88 20 137/67 99 04/08/18 07:00 04/08/18 07:00 04/08/18 07:00 04/08/18 09:19 04/08/18 07:00 Intake and Output: 04/08/18 04/08/18 06:59 18:59 Intake Total 440 Output Total 4 Balance 436 - Medications Medications: Current Medications Acetaminophen (Tylenol 325mg Tab) 650 mg PO Q6H PRN PRN Reason: Pain, Mild (1-3) Last Admin: 03/30/18 14:25 Dose: 650 mg Albuterol/Ipratropium (Duoneb 3 Mg/0.5 Mg (3 Ml) Ud) 3 ml INH RQ6 [facility] Last Admin: 04/08/18 13:36 Dose: Not Given Amlodipine Besylate (Norvasc) 5 mg PO QPM [facility] Last Admin: 04/07/18 18:05 Dose: 5 mg Aspirin (Aspirin Chewable) 81 mg PO DAILY [facility] Last Admin: 04/08/18 09:19 Dose: 81 mg Bismuth Subsalicylate (Pepto-Bismol) 262 mg PO Q8H PRN PRN Reason: Diarrhea Last Admin: 04/07/18 18:28 Dose: 262 mg Furosemide (Lasix) 20 mg PO BID [facility] Last Admin: 04/08/18 09:19 Dose: 20 mg Hydralazine HCl (Apresoline) 100 mg PO Q8 [facility] Last Admin: 04/08/18 06:25 Dose: 100 mg Metronidazole (Flagyl) 500 mg in 100 mls @ 100 mls/hr IVPB Q8H [facility] PRN Reason: Protocol Last Admin: 04/08/18 06:25 Dose: 100 mls/hr Lidocaine (Lidoderm) 1 ea TD DAILY [facility] Last Admin: 04/08/18 09:31 Dose: 1 ea Metoprolol Succinate (Toprol Xl) 50 mg PO DAILY [facility] Last Admin: 04/08/18 09:19 Dose: 50 mg Montelukast Sodium (Singulair) 10 mg PO DAILY [facility] Last Admin: 04/07/18 10:28 Dose: Not Given Morphine Sulfate (Morphine) 1 mg IVP Q3H PRN PRN Reason: Pain, moderate (4-7) Last Admin: 04/08/18 09:22 Dose: 1 mg Ondansetron HCl (Zofran Inj) 4 mg IVP Q4H PRN PRN Reason: Nausea/Vomiting Last Admin: 03/31/18 11:35 Dose: 4 mg Pantoprazole Sodium (Protonix Ec Tab) 40 mg PO DAILY [facility] Last Admin: 04/08/18 09:20 Dose: 40 mg Polyethylene Glycol (Miralax) 17 gm PO BID [facility] Last Admin: 04/08/18 09:19 Dose: 17 gm Potassium Chloride (K-Dur 20 Meq Er Tab) 20 meq PO DAILY [facility] Last Admin: 04/08/18 09:20 Dose: 20 meq Ranolazine (Ranexa) 500 mg PO BID [facility] Last Admin: 04/08/18 09:21 Dose: 500 mg Tramadol HCl (Ultram) 50 mg PO TID PRN PRN Reason: Pain, moderate (4-7) Last Admin: 04/07/18 18:04 Dose: 50 mg Vancomycin HCl (Vancocin (Oral Or Rectal Use)) 125 mg PO QID [facility] PRN Reason: Protocol Last Admin: 04/08/18 09:21 Dose: 125 mg Vitamin B Complex/Vit C/Folic Acid (Nephro-Karolyn) 1 tab PO 0800 [facility] Last Admin: 04/08/18 09:20 Dose: 1 tab - Labs Labs: 04/07/18 07:29 04/07/18 07:29 PT 13.6 SECONDS (9.7-12.2) H 01/15/18 07:10 INR 1.2 01/15/18 07:10 APTT 34 SECONDS (21-34) 12/09/17 00:22 - Constitutional Appears: Cachectic, Chronically Ill - Head Exam Head Exam: NORMOCEPHALIC - Eye Exam Eye Exam: PERRL - ENT Exam ENT Exam: Mucous Membranes Dry - Neck Exam Neck Exam: absent: Lymphadenopathy - Respiratory Exam Respiratory Exam: Decreased Breath Sounds - Cardiovascular Exam Cardiovascular Exam: REGULAR RHYTHM - GI/Abdominal Exam GI & Abdominal Exam: Distended, Soft - Rectal Exam Rectal Exam: Deferred Assessment and Plan (1) Non-ST elevated myocardial infarction (non-STEMI) Status: Acute (2) Peripheral visual field defect of both eyes Status: Acute (3) UTI (urinary tract infection) Status: Acute (4) CHF (congestive heart failure) Status: Chronic - Assessment and Plan (Free Text) Assessment: cont rx as ordered
[2018-04-09] MEDS: Albuterol-Ipratrop 3 mg / 0.5 (3 ml) UD INH SCH ×4 (02:25→21:46)
[2018-04-09] MEDS: metroNIDAZOLE IV 500 mg/100 ml 500 MG/100 ML BAG IVPB SCH ×3 (06:02→23:10)
[2018-04-09] MEDS: Multivitamin Vitamin B Complex (Nephro-Vite) Tab PO SCH (08:21)
[2018-04-09] MEDS: Potassium Chloride 20 mEq ER Tab PO SCH (10:50)
[2018-04-09] MEDS: Metoprolol Succinate 50 mg XL Tab PO SCH (10:50)
[2018-04-09] MEDS: POLYETHYLENE GLYCOL 3350 17 GM/Dose PACKET PO SCH ×2 (10:50→17:28)
[2018-04-09] MEDS: Pantoprazole 40 mg EC Tab PO SCH (10:50)
[2018-04-09] MEDS: Lidocaine 5% Patch TD SCH (10:52)
[2018-04-09] MEDS: Ranolazine 500 mg Extended Release Tablets PO SCH ×2 (11:03→18:00)
[2018-04-09] MEDS: Vancomycin 125 MG/5 ML SOLN (ORAL/RECTAL) PO SCH ×5 (11:03→21:58)
--- NOTE | 2018-04-09 12:10 | PN ---
DATE: 04/09/2018 SUBJECTIVE: She is very upset this morning, completely different than yesterday when she was completely pleasant. She is cursing a lot, very upset about being in this room. Once being out of this room, wants to have her room changed. I will discuss that with her nurse and anybody that will listen to change her room this morning. She is going to sign out. She is going to get out of bed and walk. I am afraid to get her somebody. She is not pleasant this morning at all, not eating, refusing the labs. PHYSICAL EXAMINATION: VITAL SIGNS: She has 98 temp, 91 pulse, 125/74 blood pressure, 20 respiratory rate, 98% O2 sat on 2 L nasal cannula. HEENT: Head is atraumatic, normocephalic. HEART: Regular rate. LUNGS: Decreased breath sounds, but clear. ABDOMEN: Soft, nontender. EXTREMITIES: No edema. She is on Apresoline, aspirin, DuoNebs, Flagyl IV, potassium, Lasix, Lidoderm, MiraLax, morphine p.r.n., Nephro-Karolyn, Norvasc, Pepto-Bismol, Protonix, Ranexa, Toprol, Tylenol, Ultram, vancomycin IV, and Zofran. She is being seen by Infectious Disease, GI. We will continue the present treatment and care, still awaiting for case management, clinical social work aide, Medicaid, insurance get her out of the hospital. No phone calls yet. She has CHF, COPD, chronic pain, renal insufficiency. She is septic now. Continue present treatment and care. Thank you very much. John Brown DO MTDJeaneth
[2018-04-10] MEDS: Albuterol-Ipratrop 3 mg / 0.5 (3 ml) UD INH SCH ×4 (02:42→19:12)
[2018-04-10] MEDS: metroNIDAZOLE IV 500 mg/100 ml 500 MG/100 ML BAG IVPB SCH ×3 (05:57→22:51)
[2018-04-10] MEDS: Multivitamin Vitamin B Complex (Nephro-Vite) Tab PO SCH (08:00)
[2018-04-10] MEDS: Pantoprazole 40 mg EC Tab PO SCH (10:00)
[2018-04-10] MEDS: Metoprolol Succinate 50 mg XL Tab PO SCH (10:00)
[2018-04-10] MEDS: Potassium Chloride 20 mEq ER Tab PO SCH (10:00)
[2018-04-10] MEDS: Vancomycin 125 MG/5 ML SOLN (ORAL/RECTAL) PO SCH ×5 (10:00→23:17)
[2018-04-10] MEDS: Lidocaine 5% Patch TD SCH (10:00)
[2018-04-10] MEDS: Ranolazine 500 mg Extended Release Tablets PO SCH ×2 (10:00→17:44)
[2018-04-10] MEDS: POLYETHYLENE GLYCOL 3350 17 GM/Dose PACKET PO SCH ×2 (10:00→17:46)
--- NOTE | 2018-04-10 11:33 | PN ---
DATE: 04/10/2018 SUBJECTIVE: I was trying to get her out of her room yesterday. She was very upset. She is still in the same room, not sure why the room was not changed yet. She is very upset about being here, but she has not been discharged yet and starting to refuse more. PHYSICAL EXAMINATION: VITAL SIGNS: She is 98.2 temperature, 77 pulse, 135/67 blood pressure, 20 respiratory rate, 98% O2 saturation on 2 L nasal cannula. HEENT: Head is atraumatic and normocephalic. HEART: Regular rate. LUNGS: Decreased breath sounds. ABDOMEN: Soft and nontender. Positive bowel sounds. No guarding. No rebound. EXTREMITIES: No edema. MEDICATIONS: She is currently on Apresoline, aspirin, DuoNeb, Flagyl, potassium, Lasix, Lidoderm, MiraLax, morphine, Nephro-Karolyn, Norvasc, Pepto-Bismol, Protonix, Ranexa, Singulair, Toprol, Tylenol, Ultram, vancomycin, and Zofran. LABORATORIES: Last lab was on 04/07/2018. She has been refusing the labs. I will order it again. I am also waiting for social work lecturer and case management to let me know when she can be discharged, and I am also trying to change her from her room to a different room if possible. ASSESSMENT AND PLAN: This patient, Kathy Painter, is here for congestive heart failure, chronic obstructive pulmonary disease, chronic pain, renal insufficiency, change in mental status, non-ST elevation mycoardial infarction history, and gastrointestinal infection. John Brown DO
[2018-04-11] MEDS: Albuterol-Ipratrop 3 mg / 0.5 (3 ml) UD INH SCH ×2 (01:33→07:03)
[2018-04-11] MEDS: metroNIDAZOLE IV 500 mg/100 ml 500 MG/100 ML BAG IVPB SCH ×3 (05:59→21:59)
[2018-04-11] MEDS: Lidocaine 5% Patch TD SCH (09:21)
[2018-04-11] MEDS: Pantoprazole 40 mg EC Tab PO SCH ×2 (09:22→20:11)
[2018-04-11] MEDS: POLYETHYLENE GLYCOL 3350 17 GM/Dose PACKET PO SCH ×2 (09:22→18:23)
[2018-04-11] MEDS: Multivitamin Vitamin B Complex (Nephro-Vite) Tab PO SCH (09:22)
[2018-04-11] MEDS: Ranolazine 500 mg Extended Release Tablets PO SCH ×2 (09:25→18:22)
[2018-04-11] MEDS: Vancomycin 125 MG/5 ML SOLN (ORAL/RECTAL) PO SCH ×4 (09:25→21:24)
[2018-04-11] MEDS: Metoprolol Succinate 50 mg XL Tab PO SCH (09:25)
[2018-04-11] MEDS: Potassium Chloride 20 mEq ER Tab PO SCH (09:25)
--- NOTE | 2018-04-11 14:47 | CP.PCM.PN ---
Subjective - Date & Time of Evaluation Date of Evaluation: 04/11/18 Time of Evaluation: 07:00 - Subjective Subjective: afeb off antibiotics Objective - Vital Signs/Intake and Output Vital Signs (last 24 hours): Temp Pulse Resp BP Pulse Ox 97.9 F 97 H 20 129/58 L 95 04/11/18 08:00 04/11/18 08:00 04/11/18 08:00 04/11/18 08:00 04/11/18 08:00 Intake and Output: 04/11/18 04/11/18 06:59 18:59 Intake Total 630 Balance 630 - Medications Medications: Current Medications Acetaminophen (Tylenol 325mg Tab) 650 mg PO Q6H PRN PRN Reason: Pain, Mild (1-3) Last Admin: 04/11/18 11:54 Dose: 650 mg Albuterol/Ipratropium (Duoneb 3 Mg/0.5 Mg (3 Ml) Ud) 3 ml INH RQ6 [facility] Last Admin: 04/11/18 07:03 Dose: Not Given Amlodipine Besylate (Norvasc) 5 mg PO QPM [facility] Last Admin: 04/10/18 17:44 Dose: 5 mg Aspirin (Aspirin Chewable) 81 mg PO DAILY [facility] Last Admin: 04/11/18 09:25 Dose: Not Given Bismuth Subsalicylate (Pepto-Bismol) 262 mg PO Q8H PRN PRN Reason: Diarrhea Last Admin: 04/07/18 18:28 Dose: 262 mg Furosemide (Lasix) 20 mg PO BID [facility] Last Admin: 04/11/18 09:25 Dose: Not Given Hydralazine HCl (Apresoline) 100 mg PO Q8 [facility] Last Admin: 04/11/18 13:41 Dose: Not Given Metronidazole (Flagyl) 500 mg in 100 mls @ 100 mls/hr IVPB Q8H [facility] PRN Reason: Protocol Last Admin: 04/11/18 14:11 Dose: 100 mls/hr Lidocaine (Lidoderm) 1 ea TD DAILY [facility] Last Admin: 04/11/18 09:21 Dose: Not Given Metoprolol Succinate (Toprol Xl) 50 mg PO DAILY [facility] Last Admin: 04/11/18 09:25 Dose: Not Given Montelukast Sodium (Singulair) 10 mg PO DAILY [facility] Last Admin: 04/11/18 09:25 Dose: Not Given Ondansetron HCl (Zofran Inj) 4 mg IVP Q4H PRN PRN Reason: Nausea/Vomiting Last Admin: 04/08/18 21:58 Dose: 4 mg Pantoprazole Sodium (Protonix Ec Tab) 40 mg PO DAILY [facility] Last Admin: 04/11/18 09:22 Dose: Not Given Polyethylene Glycol (Miralax) 17 gm PO BID [facility] Last Admin: 04/11/18 09:22 Dose: Not Given Potassium Chloride (K-Dur 20 Meq Er Tab) 20 meq PO DAILY [facility] Last Admin: 04/11/18 09:25 Dose: Not Given Ranolazine (Ranexa) 500 mg PO BID [facility] Last Admin: 04/11/18 09:25 Dose: Not Given Tramadol HCl (Ultram) 50 mg PO TID PRN PRN Reason: Pain, moderate (4-7) Last Admin: 04/11/18 14:11 Dose: 50 mg Vancomycin HCl (Vancocin (Oral Or Rectal Use)) 125 mg PO QID [facility] PRN Reason: Protocol Last Admin: 04/11/18 13:42 Dose: Not Given Vitamin B Complex/Vit C/Folic Acid (Nephro-Karolyn) 1 tab PO 0800 [facility] Last Admin: 04/11/18 09:22 Dose: Not Given - Labs Labs: 04/07/18 07:29 04/07/18 07:29 PT 13.6 SECONDS (9.7-12.2) H 01/15/18 07:10 INR 1.2 01/15/18 07:10 APTT 34 SECONDS (21-34) 12/09/17 00:22 - Constitutional Appears: Non-toxic, Chronically Ill - Head Exam Head Exam: NORMOCEPHALIC - Eye Exam Eye Exam: PERRL - ENT Exam ENT Exam: Mucous Membranes Dry - Neck Exam Neck Exam: absent: Lymphadenopathy - Respiratory Exam Respiratory Exam: Decreased Breath Sounds - Cardiovascular Exam Cardiovascular Exam: REGULAR RHYTHM - GI/Abdominal Exam GI & Abdominal Exam: Distended - Rectal Exam Rectal Exam: Deferred Assessment and Plan (1) Non-ST elevated myocardial infarction (non-STEMI) Status: Acute (2) Peripheral visual field defect of both eyes Status: Acute (3) UTI (urinary tract infection) Status: Acute (4) CHF (congestive heart failure) Status: Chronic
[2018-04-12] MEDS: Albuterol-Ipratrop 3 mg / 0.5 (3 ml) UD INH SCH ×4 (03:02→19:07)
--- NOTE | 2018-04-12 06:23 | PN ---
DATE: 04/11/2018 SUBJECTIVE: She was in a very bad mood this morning, cursing, yelling, screaming, upset about being here. She is on Apresoline, aspirin, DuoNeb, Flagyl, potassium, Lasix, Lidoderm, MiraLAX, and morphine, but I have not seen her in pain, actually only taking 1 or 2 in a day at every 3 hours and she has tramadol, so I am going to stop the morphine and see how she does, try and get her also to stop Norvasc, Nephro-Karolyn, Pepto-Bismol, Protonix, Ranexa, Singulair, Toprol, Tylenol, Ultram, vancomycin, and Zofran. PHYSICAL EXAMINATION: VITAL SIGNS: She has a 97.9 temperature, 70 pulse, 128/69 blood pressure, 20 respiratory rate, 97% O2 saturation on 2 liters. HEENT: Head is atraumatic and normocephalic. HEART: Regular rate. LUNGS: Clear to auscultation. ABDOMEN: Soft. EXTREMITIES: No edema. She has done labs on the 04/07/2018 and I am ordering it everyday. I have also asked the nurses throughout the case management know to give me a call to let me know how they are doing with this process, so I have set them another communication to please call me and let me know how she is doing, what the plan is for her discharge, if we have any discharge plans, where she might go, anything, and she is here for congestive heart failure, chronic obstructive pulmonary disease, chronic pain, renal insufficiency. She is being seen by Infectious Disease, GI, Renal, Psychiatry. We will continue with placement plans, trying to tomorrow discontinue the morphine and mostly case management will call me and let me know what is the progress of her discharge is. John Brown DO MTDD
[2018-04-12] MEDS: metroNIDAZOLE IV 500 mg/100 ml 500 MG/100 ML BAG IVPB SCH ×3 (06:41→22:14)
[2018-04-12] MEDS: Pantoprazole 40 mg EC Tab PO SCH (10:32)
[2018-04-12] MEDS: Multivitamin Vitamin B Complex (Nephro-Vite) Tab PO SCH (10:32)
[2018-04-12] MEDS: Vancomycin 125 MG/5 ML SOLN (ORAL/RECTAL) PO SCH ×4 (10:36→22:11)
[2018-04-12] MEDS: Metoprolol Succinate 50 mg XL Tab PO SCH (10:36)
[2018-04-12] MEDS: Ranolazine 500 mg Extended Release Tablets PO SCH ×2 (10:38→18:30)
[2018-04-12] MEDS: POLYETHYLENE GLYCOL 3350 17 GM/Dose PACKET PO SCH ×2 (10:39→18:25)
[2018-04-12] MEDS: Lidocaine 5% Patch TD SCH (10:39)
[2018-04-12] MEDS: Potassium Chloride 20 mEq ER Tab PO SCH (10:39)
[2018-04-13] MEDS: Albuterol-Ipratrop 3 mg / 0.5 (3 ml) UD INH SCH ×4 (02:36→19:10)
[2018-04-13] MEDS: metroNIDAZOLE IV 500 mg/100 ml 500 MG/100 ML BAG IVPB SCH (06:23)
--- NOTE | 2018-04-13 06:47 | PN ---
DATE: 04/12/2018 SUBJECTIVE: Resting comfortably in bed. Easily arousable. She has slept well. She has lot of complains of both her arms with multiple needle sticks. She says that her arms are in pain. Started on Apresoline, aspirin, DuoNeb, Flagyl, potassium, Lasix, Lidoderm, MiraLax, Nephro-Karolyn, Norvasc, Pepto-Bismol, Protonix, Ranexa, Singulair , Toprol, Tylenol, Ultram, vancomycin, and Zofran. PHYSICAL EXAMINATION: VITAL SIGNS: She has 98.7 temp, 88 pulse, 120/60 blood pressure, 20 respiratory rate, 96% O2 sat on 3 liters of nasal cannula. HEENT: Head is atraumatic and normocephalic. HEART: Regular rate. LUNGS: Decreased breath sounds bilaterally. ABDOMEN: Soft and nontender. Positive bowel sounds. EXTREMITIES: Mildly contracted thin frail. :41 may be 75 pounds overall. Her arms have black and blue cedeno on both arms up and down with multiple needle sticks. LABORATORY DATA: Labs on 07 April, she did fairly well. She is off morphine. She is being seen by Infectious Disease, awaiting for case management social media content specialist and medicate numbers all to be filled out 1:14. She wants to go to [place] and hope that can be arranged and we will keep an eye. Hopefully get out of the chair. ASSESSMENT AND PLAN: She is here for congestive heart failure, chronic obstructive pulmonary disease, chronic pain, renal sufficiency,change of mental status, non-ST elevation myocardial infarction, urinary tract infection. John Brown DO MTDJeaneth
--- NOTE | 2018-04-13 08:30 | PN ---
DATE: 04/13/2018 SUBJECTIVE: I saw Inocencio resting comfortably in bed. Still very upset, just she is here. She feels like she has had physical therapy, start eating that well, wants to go home. She is on Apresoline, aspirin, DuoNeb, Flagyl, potassium, Lasix, Lidoderm, MiraLax, Nephro-Karolyn, Norvasc, Pepto-Bismol, Protonix, Ranexa, Singulair, Toprol, Tylenol, Ultram, vancomycin, and Zofran. PHYSICAL EXAMINATION: VITAL SIGNS: Temp 98.2, 77 pulse, 130/58 blood pressure, 20 respiratory rate, 97% O2 sat on 3 liters. HEENT: Head is atraumatic and normocephalic. HEART: Regular rate. LUNGS: Decreased breath sounds, but clear ABDOMEN: Soft and nontender. Positive bowel sounds. EXTREMITIES: No edema, but mildly contracted. LABORATORY DATA: Labs on , she has refused labs ever since then. I will try and order labs tomorrow. Order physical therapy. She is also been on antibiotics for a while. I will call Infectious Disease again to see if they want to continue the antibiotics or stop them. It is hard to make a decision with refusing the labs and hope the case management social services aide, medicate, get this organized, and get her to be discharged. ASSESSMENT AND PLAN: She is here for congestive heart failure, chronic obstructive pulmonary disease, chronic pain, change in mentation and non-ST elevation mycoardial infarction, urinary tract infection, sepsis, and renal insufficiency. John Brown DO
[2018-04-13] MEDS: Pantoprazole 40 mg EC Tab PO SCH (10:56)
[2018-04-13] MEDS: Multivitamin Vitamin B Complex (Nephro-Vite) Tab PO SCH ×2 (10:56→11:03)
[2018-04-13] MEDS: Metoprolol Succinate 50 mg XL Tab PO SCH (10:57)
[2018-04-13] MEDS: Vancomycin 125 MG/5 ML SOLN (ORAL/RECTAL) PO SCH ×4 (10:57→21:28)
[2018-04-13] MEDS: Ranolazine 500 mg Extended Release Tablets PO SCH ×2 (11:00→17:38)
[2018-04-13] MEDS: Potassium Chloride 20 mEq ER Tab PO SCH (11:00)
[2018-04-13] MEDS: Lidocaine 5% Patch TD SCH (11:00)
[2018-04-13] MEDS: POLYETHYLENE GLYCOL 3350 17 GM/Dose PACKET PO SCH ×2 (11:00→17:39)
[2018-04-14] MEDS: Albuterol-Ipratrop 3 mg / 0.5 (3 ml) UD INH SCH ×4 (01:53→20:02)
[2018-04-14] MEDS: Multivitamin Vitamin B Complex (Nephro-Vite) Tab PO SCH (08:51)
--- NOTE | 2018-04-14 10:12 | PN ---
DATE: 04/14/2018 SUBJECTIVE: Kathy in bed this morning, eating her breakfast. She is in good mood, smiling and happy. No complaints. I even had this from her in a few days. Usually, she is yelling and screaming and cursing at me. This is a nice pleasant surprise this morning, in good spirits. She is Apresoline, aspirin, DuoNeb, potassium, Lasix, Lidoderm, MiraLax, Nephro-Karolyn, Norvasc, Pepto-Bismol, Protonix, Ranexa, Singulair, Toprol, Tylenol, Ultram, vancomycin, and Zofran. PHYSICAL EXAMINATION: VITAL SIGNS: Temperature 98.6, 91 pulse, 131/54 blood pressure, 20 respiratory rate, 96% O2 saturation on room air. HEENT: Head is atraumatic and normocephalic. Throat is moist. NECK: Supple. HEART: Regular rate. LUNGS: Decreased breath sounds, but clear to auscultation. ABDOMEN: Soft and nontender. Positive bowel sounds. EXTREMITIES: No edema. She is actually in good spirits today. LABORATORY DATA: Labs on the , I have ordered them again. She has been refusing for the past week, will keep on trying. She has been seen by Infectious Disease, and curious to know when we are going to stop the IV antibiotics. At this time, we will continue to have them as per Infectious Disease. We will continue aggressive treatment and care as per placement and she is off the antibiotics. She is just getting vancomycin rectal use, which is good. I will try again for labs. ASSESSMENT AND PLAN: She is here for congestive heart failure, chronic obstructive pulmonary disease, chronic pain, renal insufficiency, change in mentation, and she is here for placement and . John Brown DO MTDJeaneth
[2018-04-14] MEDS: Ranolazine 500 mg Extended Release Tablets PO SCH ×2 (10:24→19:32)
[2018-04-14] MEDS: Lidocaine 5% Patch TD SCH ×2 (10:24→10:31)
[2018-04-14] MEDS: Pantoprazole 40 mg EC Tab PO SCH (10:25)
[2018-04-14] MEDS: Metoprolol Succinate 50 mg XL Tab PO SCH (10:25)
[2018-04-14] MEDS: Potassium Chloride 20 mEq ER Tab PO SCH (10:25)
[2018-04-14] MEDS: POLYETHYLENE GLYCOL 3350 17 GM/Dose PACKET PO SCH ×2 (10:25→19:32)
[2018-04-14] MEDS: Vancomycin 125 MG/5 ML SOLN (ORAL/RECTAL) PO SCH ×5 (10:26→22:54)
[2018-04-14 20:18] LABS: HEMOGLOBIN 9.8 g/dL (11.0-16.0); MEAN CELL VOLUME 89.5 fL (81.0-99.0); MEAN CORPUSCULAR HEMOGLOBIN 29.8 pg (27.0-31.0); MEAN CORPUSCULAR HGB CONC 33.3 g/dL (33.0-37.0); RBC 3.28 Mil/uL (3.80-5.20); RED CELL DISTRIBUTION WIDTH 19.6 % (11.5-14.5); WHITE BLOOD COUNT 9.8 K/uL (4.8-10.8)
[2018-04-14 20:48] LABS: ALB/GLOB RATIO 1.2 (1.0-2.1); ALBUMIN 2.4 g/dL (3.5-5.0); ALT/SGPT 22 U/L (9-52); AST/SGOT 10 U/L (14-36); BLOOD UREA NITROGEN 22 mg/dL (7-17); CALCIUM 7.5 mg/dl (8.6-10.4); GFR AFRICAN-AMERICAN > 60; GFR NON-AFRICAN AMERICAN 54
--- NOTE | 2018-04-14 22:10 | CP.PCM.PCO ---
Addendum entered and electronically signed by Glenn Hunter 04/14/18 22:11: House Doctor note Patient is 73 yo F Pmhx of NSTEMI, CHF, dyspnea, and UTI. Nurse paged House doctor around 8:00 pm about patient complaining of chest pain. Patient described pain as pressure like, similar to previous heart attack episodes, going from left chest to right chest. Pt denies any radiation to upper extremities. Denies Fever, chills, SOB, headache, dizziness, abdominal pain, N/V /D/C. Patient is noncompliant with her medications. Patients vitals: T 97.6, HR 80, BP 130/68, RR 20, O2 sat 98% NC. Physical exam positive for irregular rhythm on auscultation to mitral area. Stat EKG ordered, showed Nonspecific ST and T waves abnormalities compared to previous EKG. Troponin x1 is negative. Ordered nitroglycerin 0.4mg SL Q5min PRN. Pt to be transferred to telemetry bed. Will continue to check vitals and assess for continuing symptoms. This case was discussed with Dr Lonny Allen. Original Note: <Glenn Hunter - Last Filed: 04/14/18 22:08> Physician Communication Note - Physician Communication Note Physician Communication Note: see note above <Lonny Allen P - Last Filed: 04/15/18 07:15> Attending/Attestation - Attestation I have personally seen and examined this patient.: Yes I have fully participated in the care of the patient.: Yes I have reviewed all pertinent clinical information: Yes
[2018-04-15] MEDS: Potassium Chloride 20 mEq ER Tab PO SCH ×3 (00:21→09:07)
[2018-04-15] MEDS: Magnesium Sulfate 1 gm in D5W 1 GM/100 ML BAG IVPB SCH ×3 (01:15→05:46)
[2018-04-15] MEDS: Albuterol-Ipratrop 3 mg / 0.5 (3 ml) UD INH SCH ×3 (01:32→13:29)
[2018-04-15] MEDS: Multivitamin Vitamin B Complex (Nephro-Vite) Tab PO SCH (09:00)
[2018-04-15] MEDS: Metoprolol Succinate 50 mg XL Tab PO SCH (09:06)
[2018-04-15] MEDS: Pantoprazole 40 mg EC Tab PO SCH (09:07)
[2018-04-15] MEDS: Lidocaine 5% Patch TD SCH (09:08)
[2018-04-15] MEDS: POLYETHYLENE GLYCOL 3350 17 GM/Dose PACKET PO SCH ×2 (09:08→19:46)
[2018-04-15] MEDS: Vancomycin 125 MG/5 ML SOLN (ORAL/RECTAL) PO SCH ×4 (09:09→17:57)
[2018-04-15] MEDS: Ranolazine 500 mg Extended Release Tablets PO SCH ×2 (09:09→17:54)
[2018-04-15] MEDS ORDERED: Potassium Chloride 20 mEq ER Tab PO ONE (10:15)
[2018-04-15] MEDS ORDERED: Magnesium Oxide 400 mg Tab UD PO ONE (10:15)
--- NOTE | 2018-04-15 15:00 | PN ---
DATE: 04/15/2018 SUBJECTIVE: She was moved to room 672. She is in bed very upset. She is here does not want to be here, wants to go home. Long discussion again of why she is here and then she was very upset with me. She is on Apresoline, aspirin, DuoNebs, potassium, Lasix, Lidoderm, MiraLax, Nephro-Karolyn, Nitrostat, Norvasc, Pepto-Bismol, Protonix, Ranexa, Singulair, Toprol, Tylenol, Ultram, vancomycin, and Zofran. PHYSICAL EXAMINATION: VITAL SIGNS: She has a 98.2 temperature , 80 pulse, 144/78 blood pressure, 20 respiratory rate, 96% O2 saturation nasal cannula. HEENT: Head is atraumatic and normocephalic. HEART: Regular rate and rhythm. LUNGS: Decreased breath sounds, but clear. ABDOMEN: Soft and nontender. Positive bowel sounds. EXTREMITIES: No edema. LABORATORY DATA: Last labs on 04/14/2018, she had 9.8 white count, 9.8 hemoglobin, 29.4 hematocrit with 210 platelets. A 141 sodium, potassium 3, I have replaced potassium and she would have call me on the potassium. BUN 22, creatinine 1, GFR 54, sugar is 110, calcium 7.5, magnesium 0.9, which is low, so she will call me on that too, Total bili 0.6, AST is 10, ALT is 22, alk phos is 48. Troponin I is less than 0.012 and total protein is 4.4. Urine showed occasional urine bacteria. ASSESSMENT AND PLAN: She is here for congestive heart failure, chronic obstructive pulmonary disease, chronic pain, change in mentation, renal insufficiency and ultimately we will get it to a facility once get the Medicaid number and social service as a case management can get her arrange, so I can discharge her. John Brown DO
[2018-04-16] MEDS: Albuterol-Ipratrop 3 mg / 0.5 (3 ml) UD INH SCH ×4 (02:58→19:00)
[2018-04-16] MEDS: Multivitamin Vitamin B Complex (Nephro-Vite) Tab PO SCH (07:54)
--- NOTE | 2018-04-16 08:42 | PN ---
DATE: 04/16/2018 SUBJECTIVE: I saw her resting comfortably in bed. She slept fairly well. She has same complaints one of 1 wheezing and pain. It is not nasty, but not nice. She is on Apresoline, aspirin, DuoNeb, potassium, Lasix, Lidoderm, MiraLax, Nephro-Karolyn, Nitrostat, Norvasc, Pepto-Bismol, Protonix, Ranexa, Singulair, Toprol, Tylenol, Ultram 50 every t.i.d. p.r.n., vancomycin, and Zofran. PHYSICAL EXAMINATION: VITAL SIGNS: She has 97.5 temperature, 89 pulse, 136/77 blood pressure, 20 respiratory rate, 97% O2 saturation on 2 liters. HEENT: Head is atraumatic and normocephalic. HEART: Regular rate. LUNGS: Decreased breath sounds, but clear. ABDOMEN: Soft and nontender. Positive bowel sounds. EXTREMITIES: No edema. She can move all 4 extremities. She is very thin and frail. LABORATORY DATA: Last labs on , she had 9.8 white count, 9.8 hemoglobin, and 210 platelets. She has 3 potassium replaced. BUN was good at 22, creatinine 1, and GFR 54. She is being seen by myself, Infectious Disease. We are still waiting for her to be placed. She had chest pain the other day, but everything seems to be fairly okay. We will continue with progressive treatment and care, awaiting for case management and health care social worker to finalize the discharge plan. ASSESSMENT AND PLAN: She is here for congestive heart failure, chronic obstructive pulmonary disease, change of mentation, renal sufficiency, and chronic pain. John Brown DO MTDD
[2018-04-16] MEDS: Vancomycin 125 MG/5 ML SOLN (ORAL/RECTAL) PO SCH ×3 (10:53→22:05)
[2018-04-16] MEDS: Pantoprazole 40 mg EC Tab PO SCH (10:53)
[2018-04-16] MEDS: Potassium Chloride 20 mEq ER Tab PO SCH (10:54)
[2018-04-16] MEDS: Ranolazine 500 mg Extended Release Tablets PO SCH ×2 (10:54→17:20)
[2018-04-16] MEDS: Metoprolol Succinate 50 mg XL Tab PO SCH (10:54)
[2018-04-16] MEDS: POLYETHYLENE GLYCOL 3350 17 GM/Dose PACKET PO SCH ×3 (10:55→17:20)
[2018-04-16] MEDS: Lidocaine 5% Patch TD SCH (11:10)
[2018-04-17] MEDS: Albuterol-Ipratrop 3 mg / 0.5 (3 ml) UD INH SCH ×4 (01:25→19:13)
[2018-04-17] MEDS: Morphine 4 MG/ML VIAL IVP PRN ×4 (05:52→21:11)
[2018-04-17] MEDS: Multivitamin Vitamin B Complex (Nephro-Vite) Tab PO SCH ×2 (07:49→07:50)
[2018-04-17 08:32] LABS: MEAN CORPUSCULAR HEMOGLOBIN 30.7 pg (27.0-31.0); MEAN CORPUSCULAR HGB CONC 32.8 g/dL (33.0-37.0); MEAN PLATELET VOLUME 9.7 fL (7.2-11.7); RBC 3.57 Mil/uL (3.80-5.20); WHITE BLOOD COUNT 9.8 K/uL (4.8-10.8)
[2018-04-17 08:33] LABS: MEAN CELL VOLUME 93.8 fL (81.0-99.0)
--- NOTE | 2018-04-17 08:34 | PN ---
DATE: 04/17/2018 SUBJECTIVE: She is in lot of pain this morning. Tramadol is not helping her, and she is looking for morphine; is very uncomfortable. She is on Apresoline, aspirin, DuoNeb, potassium, Lasix, Lidoderm, MiraLax, Nephro-Karolyn, Nitrostat, Norvasc, Pepto-Bismol, Protonix, Ranexa, Singulair, Toprol, Tylenol, Ultram, vancomycin rectal or oral, and Zofran. PHYSICAL EXAMINATION: VITAL SIGNS: Temperature 98, pulse 72, blood pressure 126/72, respiratory rate 20, O2 saturation 98% on 3 L nasal cannula. HEENT: Head is atraumatic and normocephalic. HEART: Regular rate. LUNGS: Decreased breath sounds, but clear. ABDOMEN: Soft and nontender. Positive bowel sounds. EXTREMITIES: Weak. No edema. LABORATORY DATA: Labs done on 04/14/2018, she did well. Potassium is low. We are trying to recheck it. She is refusing I will add some morphine, she has had it before and it helps. We will try and check her labs tomorrow. We will check her potassium level and physical therapy, and hopefully, we will get her discharge when social welfare clerk and case management has it organized. She is here for congestive heart failure, chronic obstructive pulmonary disease, renal insufficiency, chronic pain, change in mentation, and [id number] myocardial infarction. John Brown DO MTDD
[2018-04-17 09:00] LABS: BLOOD UREA NITROGEN 25 mg/dL (7-17); GFR AFRICAN-AMERICAN > 60; GFR NON-AFRICAN AMERICAN 54
[2018-04-17 09:01] LABS: ALB/GLOB RATIO 1.2 (1.0-2.1); ALBUMIN 2.7 g/dL (3.5-5.0); ALT/SGPT 20 U/L (9-52); AST/SGOT 18 U/L (14-36)
[2018-04-17] MEDS: Lidocaine 5% Patch TD SCH (10:06)
[2018-04-17] MEDS: Pantoprazole 40 mg EC Tab PO SCH (10:07)
[2018-04-17] MEDS: Potassium Chloride 20 mEq ER Tab PO SCH (10:07)
[2018-04-17] MEDS: Metoprolol Succinate 50 mg XL Tab PO SCH (10:07)
[2018-04-17] MEDS: Ranolazine 500 mg Extended Release Tablets PO SCH ×2 (10:10→17:39)
[2018-04-17] MEDS: Vancomycin 125 MG/5 ML SOLN (ORAL/RECTAL) PO SCH ×4 (10:13→21:54)
[2018-04-17] MEDS: POLYETHYLENE GLYCOL 3350 17 GM/Dose PACKET PO SCH ×2 (10:55→17:38)
[2018-04-18] MEDS: Albuterol-Ipratrop 3 mg / 0.5 (3 ml) UD INH SCH ×2 (01:20→19:43)
[2018-04-18] MEDS: Potassium Chloride 20 mEq ER Tab PO SCH (10:56)
[2018-04-18] MEDS: Pantoprazole 40 mg EC Tab PO SCH (10:56)
[2018-04-18] MEDS: Metoprolol Succinate 50 mg XL Tab PO SCH (10:56)
[2018-04-18] MEDS: Ranolazine 500 mg Extended Release Tablets PO SCH ×2 (10:56→17:12)
[2018-04-18] MEDS: Magnesium Oxide 400 mg Tab UD PO SCH (10:56)
[2018-04-18] MEDS: Vancomycin 125 MG/5 ML SOLN (ORAL/RECTAL) PO SCH ×4 (10:57→21:53)
[2018-04-18] MEDS: POLYETHYLENE GLYCOL 3350 17 GM/Dose PACKET PO SCH ×3 (10:57→17:30)
[2018-04-18] MEDS: Lidocaine 5% Patch TD SCH (10:58)
[2018-04-18] MEDS: Multivitamin Vitamin B Complex (Nephro-Vite) Tab PO SCH (11:05)
--- NOTE | 2018-04-18 11:29 | PN ---
DATE: 04/18/2018 SUBJECTIVE: Ms. Chavez is resting comfortably in bed this morning. She slept fairly well. She is in better spirits. She wants to know when she is going home. She is on Apresoline, aspirin, DuoNebs, potassium, Lasix, Lidoderm, MiraLax, morphine, Nephro-Karolyn, Nitrostat, Norvasc, Pepto-Bismol, Protonix, Ranexa, Singulair, Toprol, Tylenol, Ultram, vancomycin, and Zofran. PHYSICAL EXAMINATION: VITAL SIGNS: Temperature 97.9, 96 pulse, 123/67 blood pressure, 20 respiratory rate, 96% O2 sat nasal cannula 3 liters. HEENT: Head is atraumatic, normocephalic. HEART: Regular rate. LUNGS: Decreased breath sounds, but clear. ABDOMEN: Soft. Nontender. Positive bowel sounds. EXTREMITIES: No edema, but she is weak. LABORATORY DATA: She is calm this morning and yelling and screaming. She still wants to redo her blood test, which is great. Yesterday, she had 9.8 white count, 11 hemoglobin, 32.4 hematocrit with 196 platelets. She has 143 sodium, potassium is 4.5, BUN is 25, creatinine 1, GFR is 54, sugar is 139, calcium is 8. Total bili is 0.5, magnesium is 0.9, I will give her some magnesium (01:00). AST is 18, ALT is 20, alkaline phosphatase 44, total protein is 5. Laboratories are pretty good for her. She is being seen by me. We are waiting for placement and give some magnesium to replace the low magnesium. ASSESSMENT AND PLAN: She is here for congestive heart failure, chronic obstructive pulmonary disease, renal insufficiency, change in mental status, [id number] myocardial infarction, chronic pain, and low magnesium. John Brown DO MTDD
[2018-04-18 14:01] LABS: HEMOGLOBIN 10.7 g/dL (11.0-16.0); MEAN CELL VOLUME 92.4 fL (81.0-99.0); MEAN CORPUSCULAR HEMOGLOBIN 30.8 pg (27.0-31.0); MEAN CORPUSCULAR HGB CONC 33.3 g/dL (33.0-37.0); MEAN PLATELET VOLUME 9.8 fL (7.2-11.7); RBC 3.46 Mil/uL (3.80-5.20); RED CELL DISTRIBUTION WIDTH 20.5 % (11.5-14.5)
[2018-04-18 14:39] LABS: ALB/GLOB RATIO 1.2 (1.0-2.1); ALBUMIN 2.8 g/dL (3.5-5.0); CALCIUM 8.4 mg/dl (8.6-10.4)
--- NOTE | 2018-04-18 15:55 | PN ---
DATE: 04/18/2018 SUBJECTIVE: The patient seen for reeval for resurgence of her agitation and increasing anxiety since the patient has been transferred to the sixth floor. The patient has been in the third floor in the four-bedded room and was doing well. The patient is no longer taking any psych meds. The patient used to take Xanax, used to take Ambien in the past and some antidepressants have been taking off. She has adjusted well being in the four-bedded room, but today the patient has been having increasing call outs for the staff, has been calling every five minutes for trivial reasons. The patient seems uncomfortable being by herself in the room. The patient also wants to go to a four-bedded room. She is still very somatic, but off psych meds and the patient is awaiting mcc placement. The patient cannot go home as she needs 24-hour care. PHYSICAL EXAMINATION: VITAL SIGNS: Temperature is 97.8, pulse 86, blood pressure is 130/70, respirations 20, and oxygen sat is 97%. REVIEW OF SYSTEMS: GENERAL: The patient seen in her room. Her behavior seems to be erratic, but the patient is currently looking for attention calling the nurse almost every five minutes. She is still screaming at times. SKIN: No diaphoresis. HEENT: Still hard of hearing. No headache. NECK: Supple. RESPIRATORY: No acute respiratory distress. CARDIOVASCULAR: No chest pain. GASTROINTESTINAL: She is eating well. EXTREMITIES: The patient is still nonambulatory. MUSCULOSKELETAL: Feels weak. NEUROLOGIC: Alert and oriented x2 with periods of confusion, but she is basically much improved compared to before . MENTAL STATUS EXAMINATION: Elderly female, who was oriented x2. Mood is anxious. Affect is reactive. Speech is spontaneous. Thought process forgetful. Thought content, no overt psychosis. No suicidal or homicidal ideation. The patient has no hallucinations. Attention and memory still limited. Insight and judgment limited. Impulse control is guarded at this time. IMPRESSION: History of delirium as well as metabolic encephalopathy and dementia with mood changes. PLAN AND RECOMMENDATION: The patient is seen, meds reviewed. Once the patient is cleared cardiac petit, I just suggest the patient to be transferred back to the third floor in the four-bedded room as the patient will be doing well. The patient is currently off psych meds and doing well, but she seems to do better when brought in by herself and rather being with four-bedded room where she get some extra attention. The patient is also awaiting mcc placement and the patient cannot go home due to her confusion and her need of 24-hour care, which cannot be provided at home. The patient is awaiting completion of Medicaid. Demetrius Burdick MD MTDD
[2018-04-19] MEDS: Albuterol-Ipratrop 3 mg / 0.5 (3 ml) UD INH SCH ×5 (02:07→22:12)
[2018-04-19] MEDS: Potassium Chloride 20 mEq ER Tab PO SCH (09:10)
[2018-04-19] MEDS: Lidocaine 5% Patch TD SCH (09:12)
[2018-04-19] MEDS: Magnesium Oxide 400 mg Tab UD PO SCH (09:15)
[2018-04-19] MEDS: POLYETHYLENE GLYCOL 3350 17 GM/Dose PACKET PO SCH ×2 (09:15→18:10)
[2018-04-19] MEDS: Ranolazine 500 mg Extended Release Tablets PO SCH ×2 (09:16→18:29)
[2018-04-19] MEDS: Pantoprazole 40 mg EC Tab PO SCH (09:16)
[2018-04-19] MEDS: Metoprolol Succinate 50 mg XL Tab PO SCH (09:16)
[2018-04-19] MEDS: Multivitamin Vitamin B Complex (Nephro-Vite) Tab PO SCH (09:16)
--- NOTE | 2018-04-19 10:27 | PN ---
DATE: 04/19/2018 SUBJECTIVE: I saw her resting comfortably in bed. She sat fairly well. She tells me she got morphine when she has pain and that the physical therapy is coming and she is trying to eat. She is very weak and moves the legs well. She is on Apresoline, aspirin, DuoNebs, potassium, Lasix, Lidoderm, magnesium, MiraLax, morphine, Nephro-Karolyn, Nitrostat, Norvasc, Pepto-Bismol, Protonix, Ranexa, Singulair, Toprol, Tylenol, Ultram, vancomycin, Zofran. PHYSICAL EXAMINATION: VITAL SIGNS: She has a 98 temperature, 84 pulse, 118/65 blood pressure, 20 respiratory rate, 90% O2 sat on 4 liters. HEENT: Atraumatic and normocephalic. HEART: Regular rate. LUNGS: Decreased breath sounds, but clear. ABDOMEN: Soft. EXTREMITIES: No edema, but weak. LABORATORY DATA: She has a 138 white count, 10.7 hemoglobin, 32 hematocrit with 230,000 platelets. Sodium, potassium 4.7. BUN 25, creatinine is 1.1, GFR is 59, sugar is 127, calcium is 8.4, total bili is 0.4, AST is 12, ALT is 19, alk phos is 53, total protein is 5.1. Still awaiting for group social worker case management and Medicaid to come up with a plan for her. ASSESSMENT AND PLAN: She is here for congestive heart failure, chronic obstructive pulmonary disease, chronic pain, low magnesium, low potassium, Non-ST elevation myocardial infarction, renal insufficiency, change in mental status and presently she is calm, not yelling or screaming and in good spirits. John Brown DO
[2018-04-19] MEDS: Vancomycin 125 MG/5 ML SOLN (ORAL/RECTAL) PO SCH ×4 (10:30→21:00)
--- NOTE | 2018-04-19 16:23 | CARD ---
APPROVED REPORT Date of service: 04/14/2018 EKG Measurement Heart [id number] <Conclusion> Sinus rhythm with occasional premature ventricular complexes and premature atrial complexes Nonspecific ST and T wave abnormality Abnormal ECG
[2018-04-20] MEDS: Albuterol-Ipratrop 3 mg / 0.5 (3 ml) UD INH SCH ×4 (01:19→19:14)
--- NOTE | 2018-04-20 08:53 | PN ---
DATE: 04/20/2018 SUBJECTIVE: She is resting comfortably in bed. She is not doing well this morning. She is having left foot pain and she wants to go out of the hospital. She has been into her room and just not in good mood today. She is on Apresoline, aspirin, DuoNebs, potassium, Lasix, Lidoderm, magnesium, MiraLax, morphine, Nephro-Karolyn, Nitrostat, Norvasc, Pepto-Bismol, Protonix, Ranexa, Singulair, Toprol, Tylenol, Ultram, vancomycin, Zofran. PHYSICAL EXAMINATION: VITAL SIGNS: She has a 98 temperature, 84 pulse, 116/70 blood pressure, 20 respiratory rate, and 95% O2 sat nasal cannula 4 liters. HEENT: Head atraumatic and normocephalic. HEART: Regular rate. LUNGS: Decreased breath sounds, but clear. ABDOMEN: Soft. EXTREMITIES: No edema. The left foot and ankle are bothering her. LABORATORY DATA: Last labs on 04/18/2018. I ordered labs again, but she refuses all the time. Hopefully, she will let us do it. I want to get an x-ray of the left ankle . ASSESSMENT: She is here for chest pain, congestive heart failure, chronic obstructive pulmonary disease, aar-JE-[id number] myocardial infarction, renal insufficiency. We will continue with aggressive treatment and care with case management, social media sr strategy manager, and Medicaid. John Brown DO MTDD
[2018-04-20] MEDS: Pantoprazole 40 mg EC Tab PO SCH (09:02)
[2018-04-20] MEDS: Magnesium Oxide 400 mg Tab UD PO SCH (09:02)
[2018-04-20] MEDS: Metoprolol Succinate 50 mg XL Tab PO SCH (09:03)
[2018-04-20] MEDS: POLYETHYLENE GLYCOL 3350 17 GM/Dose PACKET PO SCH ×2 (09:04→17:29)
[2018-04-20] MEDS: Potassium Chloride 20 mEq ER Tab PO SCH (09:04)
[2018-04-20] MEDS: Ranolazine 500 mg Extended Release Tablets PO SCH ×2 (09:05→17:23)
[2018-04-20] MEDS: Vancomycin 125 MG/5 ML SOLN (ORAL/RECTAL) PO SCH ×4 (09:05→21:27)
[2018-04-20] MEDS: Lidocaine 5% Patch TD SCH (10:00)
[2018-04-20] MEDS: Multivitamin Vitamin B Complex (Nephro-Vite) Tab PO SCH (11:44)
--- NOTE | 2018-04-20 13:55 | RAD ---
Date of service: 04/20/2018 PROCEDURE: Left Foot Radiographs. HISTORY: pain COMPARISON: None. FINDINGS: BONES: Generalized osteopenia. No fracture. Plantar calcaneal spur noted. JOINTS: Normal. SOFT TISSUES: Normal. OTHER FINDINGS: None. IMPRESSION: No fracture. Osteopenia. Plantar calcaneal spur.
--- NOTE | 2018-04-20 13:55 | RAD ---
Date of service: 04/20/2018 PROCEDURE: Left Ankle Radiographs. HISTORY: pain COMPARISON: None FINDINGS: BONES: Generalized osteopenia. No fracture. Plantar calcaneal spur noted. JOINTS: Normal. No osteoarthritis. Ankle mortise maintained. Talar dome intact SOFT TISSUES: Normal. OTHER FINDINGS: None. IMPRESSION: No fracture. Plantar calcaneal spur.
[2018-04-21] MEDS: Albuterol-Ipratrop 3 mg / 0.5 (3 ml) UD INH SCH ×4 (01:24→19:06)
[2018-04-21] MEDS: Multivitamin Vitamin B Complex (Nephro-Vite) Tab PO SCH ×2 (08:22→08:24)
[2018-04-21] MEDS: Potassium Chloride 20 mEq ER Tab PO SCH (10:16)
[2018-04-21] MEDS: Metoprolol Succinate 50 mg XL Tab PO SCH (10:16)
[2018-04-21] MEDS: Magnesium Oxide 400 mg Tab UD PO SCH (10:16)
[2018-04-21] MEDS: Vancomycin 125 MG/5 ML SOLN (ORAL/RECTAL) PO SCH ×6 (10:18→22:34)
[2018-04-21] MEDS: Lidocaine 5% Patch TD SCH (10:18)
[2018-04-21] MEDS: POLYETHYLENE GLYCOL 3350 17 GM/Dose PACKET PO SCH ×3 (10:19→19:21)
[2018-04-21] MEDS: Ranolazine 500 mg Extended Release Tablets PO SCH ×2 (10:27→19:18)
[2018-04-21] MEDS: Pantoprazole 40 mg EC Tab PO SCH (12:31)
--- NOTE | 2018-04-21 13:57 | PN ---
DATE: 04/21/2018 SUBJECTIVE: I saw Kathy sitting up in bed eating her breakfast, fairly good spirits. She wants to leave Apresoline, aspirin, DuoNeb, potassium, Lasix, Lidoderm, magnesium, MiraLax, morphine, Nephro-Karolyn, Nitrostat, Norvasc, Pepto-Bismol, Protonix, Ranexa, Singulair, Toprol, Tylenol, Ultram, vancomycin, and Zofran those are meds. PHYSICAL EXAMINATION: VITAL SIGNS: She has a 97.6 temp, 88 pulse, 109/67 blood pressure, 20 respiratory rate, 95% O2 saturation and 4 L. HEENT: Head is atraumatic and normocephalic. HEART: Regular rate. LUNGS: Decreased breath sounds, but clear. ABDOMEN: Soft. Nontender. Positive bowel sounds. EXTREMITIES: No edema. No pain at this time. For the most part, fairly good spirits, not cursing. LABORATORY DATA: Last labs on 04/18/2018, 11 white count, 10.7 hemoglobin, 32 hematocrit, 230 platelets. Sodium 138, potassium 4.7, BUN 25, creatinine 1.1. GFR is 49, sugars are 127, calcium is 8.4, total bilirubin is 0.4, AST is 12, ALT is 19, alkaline phosphatase 52, total protein is 5.1. She is still telling me she is not getting physical therapy and it worried, hoping to get the physical therapy for her, waiting for case management. park services specialist to help us with discharge planning. She has some ankle pain. She has a plantar calcaneal spur and she has osteopenia of the foot and ankle. I will continue with aggressive treatment and care. We waiting for placement. John Brown DO
[2018-04-22] MEDS: Albuterol-Ipratrop 3 mg / 0.5 (3 ml) UD INH SCH ×3 (01:13→19:44)
[2018-04-22] MEDS: Multivitamin Vitamin B Complex (Nephro-Vite) Tab PO SCH ×2 (08:20→09:34)
[2018-04-22] MEDS: Magnesium Oxide 400 mg Tab UD PO SCH (09:33)
[2018-04-22] MEDS: Ranolazine 500 mg Extended Release Tablets PO SCH ×2 (09:34→18:13)
[2018-04-22] MEDS: POLYETHYLENE GLYCOL 3350 17 GM/Dose PACKET PO SCH ×3 (09:34→18:14)
[2018-04-22] MEDS: Pantoprazole 40 mg EC Tab PO SCH (09:34)
[2018-04-22] MEDS: Vancomycin 125 MG/5 ML SOLN (ORAL/RECTAL) PO SCH ×3 (09:34→09:47)
[2018-04-22] MEDS: Lidocaine 5% Patch TD SCH (09:34)
[2018-04-22] MEDS: Metoprolol Succinate 50 mg XL Tab PO SCH (09:46)
[2018-04-22] MEDS: Potassium Chloride 20 mEq ER Tab PO SCH (14:09)
--- NOTE | 2018-04-22 14:28 | PN ---
DATE: 04/22/2018 SUBJECTIVE: I saw Kathy resting comfortably in bed. She is telling that she is in pain. She has morphine that helps sometimes. She also has not gotten out of bed in few days and for physical therapy was getting out of bed. I have ordered again to get out of bed daily. She is on Apresoline, aspirin, albuterol, potassium replacement, Lasix, Lidoderm, magnesium oxide, MiraLax, morphine as needed, Nephro-Karolyn, Nitrostat, Norvasc, Pepto-Bismol, Protonix, Ranexa, Singulair, Toprol, Tylenol, Ultram, vancomycin, and Zofran. I wonder how long they want her on vancomycin. PHYSICAL EXAMINATION: VITAL SIGNS: Temp 98.7, 88 pulse, 112/71 blood pressure, 20 respiratory rate, 95% O2 sat on 4 L. HEENT: Head is atraumatic and normocephalic. HEART: Regular rate. LUNGS: Decreased breath sounds, but clear. ABDOMEN: Soft. EXTREMITIES: No edema at this time. She has to get out of bed to chair every day. LABORATORY DATA: Last labs on the 04/18/2018 was 11 white count, hemoglobin was 10.7, hematocrit was She had 138 sodium, potassium 4.7, BUN 25, creatinine 1.1. GFR is 49, sugar is 127. Liver enzymes were good. I am going to order another blood test for tomorrow. I want her out of bed to chair every day and maybe some gait training would be nice. Waiting for Infectious Disease to come back to let me know how long she needs to stay on the vancomycin. I will see if they could come back again and let me know. I am still awaiting for Case Management, Training Mgr, and Medicaid to get her to a facility. ASSESSMENT: She is here for congestive heart failure, chronic obstructive pulmonary disease, renal insufficiency, chronic pain, low magnesium, low potassium, and she had non ST-elevation myocardial infarction. John Brown DO MTDJeaneth
--- NOTE | 2018-04-22 16:00 | CP.PCM.PN ---
Subjective - Date & Time of Evaluation Date of Evaluation: 04/22/18 Time of Evaluation: 07:00 - Subjective Subjective: called to renew vanco pt denies diarrhea heathero d//c'd Objective - Vital Signs/Intake and Output Vital Signs (last 24 hours): Temp Pulse Resp BP Pulse Ox 98.7 F 83 20 115/67 95 04/22/18 07:48 04/22/18 09:33 04/22/18 07:48 04/22/18 09:34 04/22/18 07:48 Intake and Output: 04/22/18 04/22/18 06:59 18:59 Intake Total 440 Balance 440 - Medications Medications: Current Medications Acetaminophen (Tylenol 325mg Tab) 650 mg PO Q6H PRN PRN Reason: Pain, Mild (1-3) Last Admin: 04/16/18 20:07 Dose: 650 mg Albuterol/Ipratropium (Duoneb 3 Mg/0.5 Mg (3 Ml) Ud) 3 ml INH RQ6 COUNT INCLUDES THE [facility] Last Admin: 04/22/18 08:29 Dose: Not Given Amlodipine Besylate (Norvasc) 5 mg PO QPM COUNT INCLUDES THE [facility] Last Admin: 04/21/18 19:18 Dose: 5 mg Aspirin (Aspirin Chewable) 81 mg PO DAILY COUNT INCLUDES THE [facility] Last Admin: 04/22/18 09:34 Dose: 81 mg Bismuth Subsalicylate (Pepto-Bismol) 262 mg PO Q8H PRN PRN Reason: Diarrhea Last Admin: 04/07/18 18:28 Dose: 262 mg Furosemide (Lasix) 20 mg PO BID COUNT INCLUDES THE [facility] Last Admin: 04/22/18 09:34 Dose: 20 mg Hydralazine HCl (Apresoline) 100 mg PO Q8 COUNT INCLUDES THE [facility] Last Admin: 04/22/18 14:10 Dose: 100 mg Lidocaine (Lidoderm) 1 ea TD DAILY COUNT INCLUDES THE [facility] Last Admin: 04/22/18 09:34 Dose: Not Given Magnesium Oxide (Mag-Ox) 400 mg PO DAILY COUNT INCLUDES THE [facility] Last Admin: 04/22/18 09:33 Dose: 400 mg Metoprolol Succinate (Toprol Xl) 50 mg PO DAILY COUNT INCLUDES THE [facility] Last Admin: 04/22/18 09:46 Dose: Not Given Montelukast Sodium (Singulair) 10 mg PO DAILY COUNT INCLUDES THE [facility] Last Admin: 04/22/18 14:10 Dose: 10 mg Morphine Sulfate (Morphine) 1 mg IVP Q4 PRN PRN Reason: Pain, moderate (4-7) Last Admin: 04/22/18 14:12 Dose: 1 mg Nitroglycerin (Nitrostat Sl Tab) 0.4 mg SL Q5M PRN PRN Reason: chest pain Ondansetron HCl (Zofran Inj) 4 mg IVP Q4H PRN PRN Reason: Nausea/Vomiting Last Admin: 04/21/18 13:52 Dose: 4 mg Pantoprazole Sodium (Protonix Ec Tab) 40 mg PO DAILY COUNT INCLUDES THE [facility] Last Admin: 04/22/18 09:34 Dose: 40 mg Polyethylene Glycol (Miralax) 17 gm PO BID COUNT INCLUDES THE [facility] Last Admin: 04/22/18 09:49 Dose: Not Given Potassium Chloride (K-Dur 20 Meq Er Tab) 20 meq PO DAILY COUNT INCLUDES THE [facility] Last Admin: 04/22/18 14:09 Dose: 20 meq Ranolazine (Ranexa) 500 mg PO BID COUNT INCLUDES THE [facility] Last Admin: 04/22/18 09:34 Dose: 500 mg Tramadol HCl (Ultram) 50 mg PO TID PRN PRN Reason: Pain, moderate (4-7) Last Admin: 04/20/18 19:43 Dose: 50 mg Vitamin B Complex/Vit C/Folic Acid (Nephro-Karolyn) 1 tab PO 0800 COUNT INCLUDES THE [facility] Last Admin: 04/22/18 08:20 Dose: Not Given - Labs Labs: 04/18/18 13:55 04/18/18 13:55 PT 13.6 SECONDS (9.7-12.2) H 01/15/18 07:10 INR 1.2 01/15/18 07:10 APTT 34 SECONDS (21-34) 12/09/17 00:22 - Constitutional Appears: Non-toxic, Chronically Ill - Head Exam Head Exam: NORMOCEPHALIC - Eye Exam Eye Exam: PERRL - ENT Exam ENT Exam: Mucous Membranes Dry - Neck Exam Neck Exam: absent: Lymphadenopathy - Respiratory Exam Respiratory Exam: Decreased Breath Sounds - Cardiovascular Exam Cardiovascular Exam: REGULAR RHYTHM - GI/Abdominal Exam GI & Abdominal Exam: Distended, Soft - Rectal Exam Rectal Exam: Deferred - Exam Exam: NORMAL INSPECTION - Extremities Exam Extremities Exam: absent: Pedal Edema Assessment and Plan (1) Non-ST elevated myocardial infarction (non-STEMI) Status: Acute (2) Peripheral visual field defect of both eyes Status: Acute (3) UTI (urinary tract infection) Status: Acute (4) CHF (congestive heart failure) Status: Chronic
--- NOTE | 2018-04-22 18:13 | PN ---
DATE: 04/22/2018 SUBJECTIVE: The patient is seen in the sixth tower in room 672, still with periods of confusion and bouts of screaming. The patient has been asking a lot of pain medication; however, according to the nurse, when the patient was in the four-bedded room in three tow, the patient was not asking for pain medication. She is also off psych meds. I did suggest that the patient could be transferred to three tower four-bedded room once bed is available as she does better over there and she is not requiring more medications. Today, she is drowsy from the medication, complaining of persistent abdominal pain. PHYSICAL EXAMINATION: VITAL SIGNS: Temperature is 98.7, heart rate 83, blood pressure 115/67, respirations 20, and oxygen sat 95%. REVIEW OF SYSTEMS: GENERAL: The patient is drowsy, but arousable, seen in her room. The patient seems to need more attention. She is alone in her room. SKIN: No diaphoresis. HEENT: Hard of hearing. No headache. NECK: Supple. RESPIRATORY: No dyspnea. CARDIOVASCULAR: No chest pain. GASTROINTESTINAL: Eating well. She has abdominal pain. EXTREMITIES: The patient has been bed bound, nonambulatory. NEUROLOGIC: Alert with periods of confusion. GENITOURINARY: No dysuria. MENTAL STATUS EXAMINATION: An elderly female, who is 5 feet, weighs 84 pounds, drowsy, but arousable in her room, complaining of abdominal pain. Mood is dysphoric. Affect is restricted. Speech is slow. Thought process is confused. Thought content, somatically preoccupied. No psychosis. No suicidal or homicidal ideation. Attention and memory seem to be limited. Insight and judgement are limited. Impulse control is fair at this time. IMPRESSION: History of delirium as well as metabolic encephalopathy as well as history of dementia with mood changes, and chronic obstructive pulmonary disease. PLAN AND RECOMMENDATIONS: The patient is seen, meds reviewed. We will try to transfer the patient to three tower four-bedded room once the bed is available. For now, we will keep the patient off psych meds and also would try to limit the patient taking pain medication if possible. The patient is on morphine 1 mg IV every 4 hours p.r. n.for pain. Demetrius Burdick MD Kg # [id number] KENNETH
[2018-04-23] MEDS: Albuterol-Ipratrop 3 mg / 0.5 (3 ml) UD INH SCH ×4 (02:43→19:46)
[2018-04-23] MEDS: Multivitamin Vitamin B Complex (Nephro-Vite) Tab PO SCH ×2 (08:14→08:19)
--- NOTE | 2018-04-23 09:57 | PN ---
DATE: 04/23/2018 SUBJECTIVE: She slept well last night. She told me that she got to [id number] and actually took a few steps yesterday this morning. No yelling or screaming. She is on Apresoline, aspirin, DuoNebs, potassium, Lasix, Lidoderm, magnesium, MiraLax, morphine, Nephro-Karolyn, Nitrostat, Norvasc, Pepto-Bismol, Protonix, Ranexa, Singulair, Toprol, Tylenol, Ultram, and Zofran. PHYSICAL EXAMINATION: VITAL SIGNS: Temperature 98, 91 pulse, 127/70 blood pressure, 20 respiratory rate, 97% O2 saturation of 4 L. HEENT: Head is atraumatic and normocephalic. HEART: Regular rate and rhythm. Decreased breath sounds, but clear. ABDOMEN: Soft. Nontender. Positive bowel sounds. EXTREMITIES: No edema. LABORATORY DATA: She refused the lab this morning. We will try again later PLAN: We will continue with her physical therapy, getting out of [id number], waiting for case management, social worker palliative care, and Medicaid to get her organize to discharge, CHF, COPD, chronic pain, renal insufficiency, and standing in official. She is very happy and we will get her to a facility sooner. John Brown DO [facility]
[2018-04-23] MEDS: Potassium Chloride 20 mEq ER Tab PO SCH (10:36)
[2018-04-23] MEDS: Ranolazine 500 mg Extended Release Tablets PO SCH ×2 (10:37→19:00)
[2018-04-23] MEDS: Metoprolol Succinate 50 mg XL Tab PO SCH (10:37)
[2018-04-23] MEDS: Magnesium Oxide 400 mg Tab UD PO SCH (10:37)
[2018-04-23] MEDS: Pantoprazole 40 mg EC Tab PO SCH (10:37)
[2018-04-23] MEDS: Lidocaine 5% Patch TD SCH (10:37)
[2018-04-23] MEDS: POLYETHYLENE GLYCOL 3350 17 GM/Dose PACKET PO SCH ×2 (10:37→17:13)
[2018-04-24] MEDS: Albuterol-Ipratrop 3 mg / 0.5 (3 ml) UD INH SCH ×4 (01:06→19:48)
[2018-04-24] MEDS: Multivitamin Vitamin B Complex (Nephro-Vite) Tab PO SCH (08:30)
--- NOTE | 2018-04-24 09:39 | PN ---
DATE: 04/24/2018 SUBJECTIVE: Kathy is resting comfortably in bed. She is sleeping. Hard to arouse. She just got medicated for pain. She is on Apresoline, aspirin, DuoNeb, potassium, Lasix, Lidoderm, magnesium, MiraLax, morphine, Nephro-Karolyn, Nitrostat, Norvasc, Pepto-Bismol, Protonix, Ranexa, Singulair, Toprol, Tylenol, Ultram, and Zofran. She is going to try this morning. PHYSICAL EXAMINATION: VITAL SIGNS: She has 97.6 temp, 99 pulse, 148/79 blood pressure, 20 respiratory rate, 99% O2 sat on 4 L of nasal cannula. HEENT: Head is atraumatic and normocephalic. HEART: Regular rate. LUNGS: Decreased breath sounds, but clear. ABDOMEN: Soft. Nontender. Positive bowel sounds. EXTREMITIES: No edema. She has to go out [id number] every day. She 38 physical therapy if possible. LABORATORY DATA: Last labs on , she has been refusing since then. She was last seen by Dr. Torres and Dr. Burdick yesterday or the day before. She is now off the vancomycin as per Infectious Disease which is great. I will order labs tomorrow; hopefully, she will let us get them done. Continue with treatment and care. ASSESSMENT AND PLAN: She is here for congestive heart failure, chronic obstructive pulmonary disease, chronic pain, knee pain, renal insufficiency, change of mentation, and [id number] myocardial infarction, and low potassium. Awaiting Medicaid insurance. John Brown DO MTDD
[2018-04-24] MEDS: Ranolazine 500 mg Extended Release Tablets PO SCH ×2 (10:20→18:48)
[2018-04-24] MEDS: POLYETHYLENE GLYCOL 3350 17 GM/Dose PACKET PO SCH ×2 (10:30→18:45)
[2018-04-24] MEDS: Lidocaine 5% Patch TD SCH (11:08)
[2018-04-24] MEDS: Metoprolol Succinate 50 mg XL Tab PO SCH (11:09)
[2018-04-24] MEDS: Potassium Chloride 20 mEq ER Tab PO SCH (11:09)
[2018-04-24] MEDS: Magnesium Oxide 400 mg Tab UD PO SCH (11:09)
[2018-04-24] MEDS: Pantoprazole 40 mg EC Tab PO SCH (11:12)
[2018-04-25] MEDS: Albuterol-Ipratrop 3 mg / 0.5 (3 ml) UD INH SCH ×4 (01:15→21:00)
[2018-04-25] MEDS: Multivitamin Vitamin B Complex (Nephro-Vite) Tab PO SCH (08:22)
[2018-04-25 08:29] LABS: MEAN CELL VOLUME 93.2 fL (81.0-99.0); MEAN CORPUSCULAR HEMOGLOBIN 30.9 pg (27.0-31.0); MEAN CORPUSCULAR HGB CONC 33.1 g/dL (33.0-37.0); MEAN PLATELET VOLUME 9.7 fL (7.2-11.7); RBC 3.56 Mil/uL (3.80-5.20); RED CELL DISTRIBUTION WIDTH 21.4 % (11.5-14.5); WHITE BLOOD COUNT 10.5 K/uL (4.8-10.8)
[2018-04-25 08:47] LABS: ALB/GLOB RATIO 1.3 (1.0-2.1); ALBUMIN 2.9 g/dL (3.5-5.0)
--- NOTE | 2018-04-25 09:09 | PN ---
DATE: 04/24/2018 SUBJECTIVE: I saw her in bed this morning. She is cursing, yelling, and screaming, not happy. She does not want to be here anymore. She is on Apresoline, aspirin, DuoNeb, potassium, Lasix, Lidoderm, magnesium, MiraLax, Nephro-Karolyn, Nitrostat, Norvasc, Pepto-Bismol, Protonix, Ranexa, Singulair, Toprol, Tylenol, Ultram, and Zofran. PHYSICAL EXAMINATION: VITAL SIGNS: Vital signs are 97.9 temperature, 108 pulse, 154/84 blood pressure, 18 respiratory rate, 97% O2 saturation of 4 L nasal cannula. HEENT: Head is atraumatic and normocephalic. HEART: Regular rate. LUNGS: Decreased breath sounds, but clear. ABDOMEN: Soft. EXTREMITIES: No edema. She is just upset of being here for very long time. LABORATORY DATA: Last labs on the , she has been refusing labs every day. ASSESSMENT AND PLAN: She is refusing everything. She is just not happy. She is fed up with the place. She is here for congestive heart failure, chronic obstructive pulmonary disease, chronic pain, renal insufficiency, non ST-elevation myocardial infarction, and waiting for Medicaid insurance. John Brown DO
[2018-04-25] MEDS: Magnesium Oxide 400 mg Tab UD PO SCH (09:36)
[2018-04-25] MEDS: Pantoprazole 40 mg EC Tab PO SCH (09:36)
[2018-04-25] MEDS: Ranolazine 500 mg Extended Release Tablets PO SCH ×2 (09:36→17:51)
[2018-04-25] MEDS: Potassium Chloride 20 mEq ER Tab PO SCH (09:36)
[2018-04-25] MEDS: Metoprolol Succinate 50 mg XL Tab PO SCH (09:38)
[2018-04-25] MEDS: Lidocaine 5% Patch TD SCH (11:56)
[2018-04-25] MEDS: POLYETHYLENE GLYCOL 3350 17 GM/Dose PACKET PO SCH ×2 (11:57→17:53)
[2018-04-26] MEDS: Albuterol-Ipratrop 3 mg / 0.5 (3 ml) UD INH SCH ×5 (01:11→20:04)
[2018-04-26] MEDS ORDERED: guaiFENesin 100 mg/5 ml Syrup UD PO STA (03:47)
[2018-04-26] MEDS: MethylPREDNISolone 40 mg Vial IVP SCH ×2 (05:55→13:29)
[2018-04-26 08:18] VITALS: RESP 20
[2018-04-26] MEDS: Ranolazine 500 mg Extended Release Tablets PO SCH ×2 (09:16→17:21)
[2018-04-26] MEDS: Pantoprazole 40 mg EC Tab PO SCH (09:17)
[2018-04-26] MEDS: Potassium Chloride 20 mEq ER Tab PO SCH (09:17)
[2018-04-26] MEDS: Metoprolol Succinate 50 mg XL Tab PO SCH (09:17)
[2018-04-26] MEDS: Magnesium Oxide 400 mg Tab UD PO SCH (09:17)
[2018-04-26] MEDS: POLYETHYLENE GLYCOL 3350 17 GM/Dose PACKET PO SCH ×2 (09:17→17:21)
[2018-04-26] MEDS: Lidocaine 5% Patch TD SCH (09:18)
[2018-04-26] MEDS: Multivitamin Vitamin B Complex (Nephro-Vite) Tab PO SCH (10:05)
--- NOTE | 2018-04-26 11:27 | PN ---
DATE: 04/26/2018 LOCATION: She is now in the third floor, room 359. SUBJECTIVE: She is having shortness of breath. We increased the oxygen. I think she is going through some COPD. She is also in lot of pain on the left side from time to time. PHYSICAL EXAMINATION: VITAL SIGNS: She has 97.6 temperature, 88 pulse, 119/78 blood pressure, 20 respiratory rate, 97% O2 saturation on 2 L nasal canula. They are asking for more oxygen. HEENT: Head is atraumatic and normocephalic. Throat is moist. NECK: Supple. HEART: Regular rate. LUNGS: With decreased breath sounds. Occasional wheeze. No rhonchi. ABDOMEN: Soft. EXTREMITIES: No edema. LABORATORY DATA: On 04/25/2018, she has 10.5 white count, 11 hemoglobin, 32.2 hematocrit, 253 platelets. She has a 137 sodium on 04/25/2018, 4.8 potassium, BUN 38, creatinine 1.4, GFR is 37, sugar is 128, calcium is 9. Total bilirubin is 0.4, AST is 12, ALT is 19, alk phos , total protein is 5.2. . ASSESSMENT AND PLAN: I put her on Solu-Medrol 30 mg IV every 8 hours and morphine for pain. Tramadol is not working. I want to see how much better she is breathing. I am of course waiting for professor of social work, case management, and Medicaid to come around. She is here for chronic obstructive pulmonary disease, congestive heart failure, [id number] myocardial infarction, urinary tract infection, and chronic pain. Out of bed to chair and physical therapy. John Brown DO MTDD
[2018-04-26 17:02] VITALS: PULSE 84; TEMP 97; O2SAT 94
[2018-04-26 17:22] VITALS: BP 110/68
--- NOTE | 2018-04-26 18:51 | CP.PCM.PRO ---
Pronouncement of Note - Clinical Findings Physical Exam: No Response Verbal/Painful Stimuli, Absent Peripheral Pulses{ Carotid & Femoral}, Absent Heart & Breath Sounds, No Pupillary Light Reflex, No Corneal Reflex, Pupils Fixed & Dilated, Absence of Vital Signs - Pronouncement Time Time of Pronouncement of : 18:21 - Notifications Pronouncement Notifications: Atending Notified Professional Driver Notified: No - Autopsy Autopsy Requested: No [place] [id number]
== END 2018-04-26 21:30 ==
LOC: C.ER 23:58 → C.6T 12-09 03:17 → C.5S 03-19 07:39 → C.3T 03-29 13:30 → C.6T 04-14 22:43 → C.3T 04-26 04:15
PROVIDERS: ADMIT Family Medicine; ATTEND Family Medicine
PROC: 30233N1 Transfusion of Nonautologous Red Blood Cells into Peripheral Vein, Percutaneous Approach (ICD-10-PCS; principal; 2018-03-22)
DX: I21.4 Non-ST elevation (NSTEMI) myocardial infarction (principal); I50.23 Acute on chronic systolic (congestive) heart failure; I13.0 Hypertensive heart and chronic kidney disease with heart failure and stage 1 through stage 4 chronic kidney disease, or unspecified chronic kidney disease; J44.1 Chronic obstructive pulmonary disease with (acute) exacerbation; A41.9 Sepsis, unspecified organism; G93.41 Metabolic encephalopathy; A09 Infectious gastroenteritis and colitis, unspecified; F03.91 Unspecified dementia, unspecified severity, with behavioral disturbance; J84.9 Interstitial pulmonary disease, unspecified; J90 Pleural effusion, not elsewhere classified; K55.1 Chronic vascular disorders of intestine; K56.600 Partial intestinal obstruction, unspecified as to cause; K56.7 Ileus, unspecified; N39.0 Urinary tract infection, site not specified; I69.351 Hemiplegia and hemiparesis following cerebral infarction affecting right dominant side; F05 Delirium due to known physiological condition; R45.851 Suicidal ideations; D64.9 Anemia, unspecified; E11.22 Type 2 diabetes mellitus with diabetic chronic kidney disease; E11.36 Type 2 diabetes mellitus with diabetic cataract; E11.51 Type 2 diabetes mellitus with diabetic peripheral angiopathy without gangrene; E55.9 Vitamin D deficiency, unspecified; G89.29 Other chronic pain; I25.10 Atherosclerotic heart disease of native coronary artery without angina pectoris; I27.20 Pulmonary hypertension, unspecified; N18.3 Chronic kidney disease, stage 3 (moderate); I70.1 Atherosclerosis of renal artery; K21.9 Gastro-esophageal reflux disease without esophagitis; E78.5 Hyperlipidemia, unspecified; E78.00 Pure hypercholesterolemia, unspecified; F17.210 Nicotine dependence, cigarettes, uncomplicated; F20.9 Schizophrenia, unspecified; Z66 Do not resuscitate; F32.9 Major depressive disorder, single episode, unspecified; H53.40 Unspecified visual field defects; H04.123 Dry eye syndrome of bilateral lacrimal glands; F41.9 Anxiety disorder, unspecified; H91.91 Unspecified hearing loss, right ear; K44.9 Diaphragmatic hernia without obstruction or gangrene; M19.072 Primary osteoarthritis, left ankle and foot; M81.0 Age-related osteoporosis without current pathological fracture; N28.1 Cyst of kidney, acquired; R09.02 Hypoxemia; Z53.20 Procedure and treatment not carried out because of patient's decision for unspecified reasons; Z75.1 Person awaiting admission to adequate facility elsewhere; I25.2 Old myocardial infarction; Z79.4 Long term (current) use of insulin; Z91.14 Patient's other noncompliance with medication regimen; Z79.51 Long term (current) use of inhaled steroids; Z79.891 Long term (current) use of opiate analgesic; Z79.82 Long term (current) use of aspirin; Z79.899 Other long term (current) drug therapy; Z87.11 Personal history of peptic ulcer disease; Z74.01 Bed confinement status; Z87.440 Personal history of urinary (tract) infections; Z91.19 Patient's noncompliance with other medical treatment and regimen; Z92.21 Personal history of antineoplastic chemotherapy; Z95.5 Presence of coronary angioplasty implant and graft; Z95.820 Peripheral vascular angioplasty status with implants and grafts; Z96.641 Presence of right artificial hip joint